=== PATIENT | female | born 1945 | race Caucasian/White ===

== ENCOUNTER 2017-11-28 18:02 | Inpatient (IN) | END 2018-04-09 23:59 | disposition other institution (70) | DRG 130 | DX: J96.21 Acute and chronic respiratory failure with hypoxia (principal); G93.40 Encephalopathy, unspecified; I42.9 Cardiomyopathy, unspecified; I48.2 Chronic atrial fibrillation; R13.10 Dysphagia, unspecified; I13.0 Hypertensive heart and chronic kidney disease with heart failure and stage 1 through stage 4 chronic kidney disease, or unspecified chronic kidney disease; I50.42 Chronic combined systolic (congestive) and diastolic (congestive) heart failure; G40.909 Epilepsy, unspecified, not intractable, without status epilepticus; Z93.1 Gastrostomy status; Z99.11 Dependence on respirator [ventilator] status; Z93.0 Tracheostomy status; D64.9 Anemia, unspecified; J96.22 Acute and chronic respiratory failure with hypercapnia; I25.10 Atherosclerotic heart disease of native coronary artery without angina pectoris; I34.0 Nonrheumatic mitral (valve) insufficiency; N18.9 Chronic kidney disease, unspecified; Z95.0 Presence of cardiac pacemaker; Z95.2 Presence of prosthetic heart valve; B96.20 Unspecified Escherichia coli [E. coli] as the cause of diseases classified elsewhere; N39.0 Urinary tract infection, site not specified; K52.9 Noninfective gastroenteritis and colitis, unspecified; Z79.01 Long term (current) use of anticoagulants; Z79.899 Other long term (current) drug therapy; Z86.73 Personal history of transient ischemic attack (TIA), and cerebral infarction without residual deficits; Z87.440 Personal history of urinary (tract) infections; Z88.5 Allergy status to narcotic agent; Z95.1 Presence of aortocoronary bypass graft; I69.198 Other sequelae of nontraumatic intracerebral hemorrhage ==

== ENCOUNTER 2018-04-10 | Inpatient (IN) | END 2019-04-09 23:59 | disposition still patient (30) | DRG 130 | DX: J96.21 Acute and chronic respiratory failure with hypoxia (principal); G93.40 Encephalopathy, unspecified; J18.9 Pneumonia, unspecified organism; E46 Unspecified protein-calorie malnutrition; D61.818 Other pancytopenia; L89.152 Pressure ulcer of sacral region, stage 2; D69.6 Thrombocytopenia, unspecified; I13.0 Hypertensive heart and chronic kidney disease with heart failure and stage 1 through stage 4 chronic kidney disease, or unspecified chronic kidney disease; E11.22 Type 2 diabetes mellitus with diabetic chronic kidney disease; E87.0 Hyperosmolality and hypernatremia; R13.10 Dysphagia, unspecified; I42.9 Cardiomyopathy, unspecified; I50.42 Chronic combined systolic (congestive) and diastolic (congestive) heart failure; Z99.11 Dependence on respirator [ventilator] status; G40.909 Epilepsy, unspecified, not intractable, without status epilepticus; Z93.1 Gastrostomy status; Z93.0 Tracheostomy status; I25.10 Atherosclerotic heart disease of native coronary artery without angina pectoris; B96.20 Unspecified Escherichia coli [E. coli] as the cause of diseases classified elsewhere; J96.22 Acute and chronic respiratory failure with hypercapnia; I34.0 Nonrheumatic mitral (valve) insufficiency; Z95.0 Presence of cardiac pacemaker; Z95.2 Presence of prosthetic heart valve; N39.0 Urinary tract infection, site not specified; K52.9 Noninfective gastroenteritis and colitis, unspecified; Z79.01 Long term (current) use of anticoagulants; Z79.899 Other long term (current) drug therapy; Z87.440 Personal history of urinary (tract) infections; Z88.5 Allergy status to narcotic agent; Z95.1 Presence of aortocoronary bypass graft; I69.198 Other sequelae of nontraumatic intracerebral hemorrhage; D64.9 Anemia, unspecified; E87.6 Hypokalemia; I25.2 Old myocardial infarction; D72.819 Decreased white blood cell count, unspecified; J98.11 Atelectasis; K75.4 Autoimmune hepatitis; L30.9 Dermatitis, unspecified; N18.3 Chronic kidney disease, stage 3 (moderate); R78.81 Bacteremia; S70.322A Blister (nonthermal), left thigh, initial encounter; R00.1 Bradycardia, unspecified; R19.7 Diarrhea, unspecified; R00.0 Tachycardia, unspecified; I48.20 Chronic atrial fibrillation, unspecified; I48.91 Unspecified atrial fibrillation ==

== ENCOUNTER 2018-04-22 16:02 | Inpatient (IN) | payer MEDICAID, OTHER ==
[2018-04-22] VITALS (21 sets, daily range): BP systolic 83–125; BP diastolic 54–86
[~2018-04-22] VITALS: Ht 157.5 cm; Wt 106.6 kg
[2018-04-22] MEDS ORDERED: PIPERACILLIN SODIUM/TAZOBACTAM 3.375 G in IV DEXTROSE 5% 50 ML IV ONE (16:15)
[2018-04-22] MEDS ORDERED: NOREPINEPHRINE BITARTRATE 8 MG in IV DEXTROSE 5% 500 ML IV PRN ×2 (16:15→19:00)
[2018-04-22] MEDS ORDERED: VANCOMYCIN IV 1,000 MG in IV DEXTROSE 5% 250 ML IV ONE (16:15)
[2018-04-22] MEDS ORDERED: VANCOMYCIN IV 200 ML ONE (16:23)
[2018-04-22] MEDS ORDERED: PIPERACILLIN/TAZOBACTAM/D5W 50 ML IV ONE (16:23)
[2018-04-22 16:27] LABS: BASOPHILS % (AUTO) 0.3 % (0.0-2.0); HEMATOCRIT 35.4 % (31.2-41.9); HEMOGLOBIN 11.8 g/dL (10.9-14.3); LYMPHOCYTES # (AUTO) 0.9 K/uL (20.0-40.0); LYMPHOCYTES % (AUTO) 14.5 % (20.5-51.5); MEAN CORPUSCULAR HEMOGLOBIN 32.2 uug (24.7-32.8); MEAN CORPUSCULAR HGB CONC 33 g/dL (32.3-35.6); MEAN CORPUSCULAR VOLUME 96.3 fL (75.5-95.3); MONOCYTES # (AUTO) 0.6 K/uL (2.0-10.0); MONOCYTES % (AUTO) 10.4 % (0.0-11.0); NEUTROPHILS # (AUTO) 4.5 K/uL (1.8-8.9); NEUTROPHILS % (AUTO) 74.8 % (38.5-71.5); PLATELET COUNT (AUTO) 96 K/uL (179-408); RED BLOOD CELL COUNT(AUTO) 3.67 MIL/uL (3.63-4.92); WHITE BLOOD COUNT (AUTO) 6.1 K/uL (3.8-11.8)
[2018-04-22] MEDS ORDERED: IV NORMAL SALINE 1000 ML BAG IV ONE (16:45)
[2018-04-22] MEDS ORDERED: LACT1CAP61 GT (17:17)
[2018-04-22] MEDS ORDERED: LISI2.5T2 GT (17:17)
[2018-04-22] MEDS ORDERED: PHEN50TA4 GT (17:17)
[2018-04-22] MEDS ORDERED: POTA10TA15 GT (17:17)
[2018-04-22] MEDS ORDERED: MV-M1TAB2 GT (17:17)
[2018-04-22] MEDS ORDERED: IBUP-1953 GT (17:17)
[2018-04-22] MEDS ORDERED: NUT.237L30 GT (17:17)
[2018-04-22] MEDS ORDERED: NEOM1PAC2 TP (17:17)
[2018-04-22] MEDS ORDERED: HEPA500034 SQ (17:17)
[2018-04-22] MEDS ORDERED: ACET-2154 GT (17:17)
[2018-04-22] MEDS ORDERED: BISO5TAB2 GT (17:17)
[2018-04-22] MEDS ORDERED: FAMO20TA8 GT (17:17)
[2018-04-22] MEDS ORDERED: IBUP-1953 PO (17:17)
[2018-04-22] MEDS ORDERED: PHEN100C4 GT (17:17)
[2018-04-22] MEDS ORDERED: LEVE500T20 GT (17:17)
[2018-04-22] MEDS ORDERED: MAGN400O6 GT (17:17)
[2018-04-22] MEDS ORDERED: LACO200T2 GT (17:17)
[2018-04-22] MEDS ORDERED: POLY15DR27 EACHEYE (17:17)
[2018-04-22 17:24] LABS: *BILIRUBIN,URIN 3+ (NEGATIVE); *BLOOD, URINE 2+ (NEGATIVE); *CLARITY,URINE CLOUDY (CLEAR); *COLOR,URINE Brown (YELLOW); *KETONES,URINE TRACE (NEGATIVE); *UROBILINOGEN,URINE >=8.0 E.U./dl (NORMAL); LEUKOCYTE ESTERASE ,URINE 1+ (NEGATIVE); NITRITE, URINE NEGATIVE (NEGATIVE); UGLUCOSE NEGATIVE (NEGATIVE)
[2018-04-22] MEDS ORDERED: PROSTAT GT (17:32)
[2018-04-22 17:39] LABS: SQUAMOUS EPITHELIAL CELL,UR MODERATE /HPF (NONE SEEN); WBC,URINE 50-80 /HPF (0-3)
[2018-04-22 17:43] LABS: BACTERIA,URINE FEW /HPF (NONE SEEN); URINE AMORPHOUS URATE MODERATE /HPF
[2018-04-22] MEDS ORDERED: DEXTROSE 50% 50 ML DISP.SYRIN IV PRN (19:15)
[2018-04-22] MEDS ORDERED: INSULIN REGULAR, HUMAN 300 UNIT/3 ML VIAL SQ PRN (19:15)
[2018-04-22] MEDS ORDERED: PHENYLEPHRINE IV 80 MG in IV DEXTROSE 5% 250 ML IV PRN (20:00)
[2018-04-22] MEDS ORDERED: PHENYLEPHRINE 10 MG/1 ML VIAL ONE (20:13)
[2018-04-22 20:32] LABS: ABG BASE EXCESS -3.6 mmol/L; ABG HCO3 19.7 mmol/L; ABG PH 7.421 (7.350-7.450); ABG PO2 391.4 mmHg (75.0-100.0); ABG SITE RIGHT BRACHIAL; ABG TOTAL HEMOGLOBIN 14.2 G/dL (12.0-16.0); COHb 1.3 % (0.5-1.5); MetHb 0.3 % (0.0-1.5); O2Hb 98.1 % (94.0-97.0); VENT MODE VENT - A/C; VT, ABG 550 mL
[2018-04-22] MEDS ORDERED: DILTIAZEM HCL IV 125 MG in IV DEXTROSE 5% 100 ML IV PRN ×2 (20:45→21:45)
[2018-04-22] MEDS: IV NS 1000 ML 1,000 ML IV PRN (21:44)
[2018-04-22] MEDS ORDERED: DILTIAZEM HCL 25 MG IV ONE ×3 (22:02→22:07)
[2018-04-22] MEDS ORDERED: PIPERACILLIN/TAZOBACTAM/D5W 50 ML ONE (22:04)
[2018-04-22] MEDS: PIPERACILLIN/TAZOBACTAM/D5W 50 ML IV SCH (22:31)
[2018-04-22] MEDS: DILTIAZEM HCL IV 125 MG in IV DEXTROSE 5% 100 ML IV PRN (22:47)
[2018-04-22] MEDS: PHENYLEPHRINE IV 80 MG in IV DEXTROSE 5% 250 ML IV PRN (23:00)
[2018-04-22] MEDS: BLOOD SUGAR DIAGNOSTIC 1 EACH STRIP VI SCH (23:22)
[2018-04-23] VITALS (94 sets, daily range): BP systolic 74–134; BP diastolic 31–105
[2018-04-23] MEDS ORDERED: ACETAMINOPHEN 650 MG SUPP.RECT RC PRN (01:15)
[2018-04-23] MEDS ORDERED: PIPERACILLIN/TAZOBACTAM/D5W 50 ML ONE (02:24)
[2018-04-23] MEDS: PIPERACILLIN/TAZOBACTAM/D5W 50 ML IV SCH (04:00)
[2018-04-23 05:16] LABS: BASOPHILS % (AUTO) 0.3 % (0.0-2.0); HEMATOCRIT 35.1 % (31.2-41.9); HEMOGLOBIN 12.5 g/dL (10.9-14.3); LYMPHOCYTES # (AUTO) 0.8 K/uL (20.0-40.0); LYMPHOCYTES % (AUTO) 9.2 % (20.5-51.5); MEAN CORPUSCULAR HEMOGLOBIN 32.9 uug (24.7-32.8); MEAN CORPUSCULAR HGB CONC 36 g/dL (32.3-35.6); MEAN CORPUSCULAR VOLUME 92.9 fL (75.5-95.3); MONOCYTES # (AUTO) 0.6 K/uL (2.0-10.0); MONOCYTES % (AUTO) 6.3 % (0.0-11.0); NEUTROPHILS # (AUTO) 7.5 K/uL (1.8-8.9); NEUTROPHILS % (AUTO) 84.2 % (38.5-71.5); PLATELET COUNT (AUTO) 90 K/uL (179-408); RED BLOOD CELL COUNT(AUTO) 3.78 MIL/uL (3.63-4.92); WHITE BLOOD COUNT (AUTO) 8.9 K/uL (3.8-11.8)
[2018-04-23 05:19] LABS: CARBON DIOXIDE 28 mmol/L (21-32); CHLORIDE 104 mmol/L (98-107); CREATININE 1.1 mg/dL (0.6-1.3); GLUCOSE 127 mg/dL (74-106); UREA NITROGEN, BLOOD 36 mg/dL (7-18)
[2018-04-23 05:20] LABS: POTASSIUM 2.8 mmol/L (3.5-5.1)
[2018-04-23] MEDS: BLOOD SUGAR DIAGNOSTIC 1 EACH STRIP VI SCH ×4 (06:17→23:45)
[2018-04-23] MEDS ORDERED: POTASSIUM CHLORIDE 20 MEQ POWDER PACKET GT ONE (06:30)
[2018-04-23] MEDS: POTASSIUM CHLORIDE 50 ML IV SCH ×4 (06:32→10:48)
[2018-04-23] MEDS ORDERED: PIPERACILLIN/TAZOBACTAM/D5W 50 ML IV SCH (08:15)
[2018-04-23] MEDS: VANCOMYCIN IV 1,500 MG in IV DEXTROSE 5% 500 ML IV SCH (09:00)
[2018-04-23] MEDS: PHENYLEPHRINE IV 80 MG in IV DEXTROSE 5% 250 ML IV PRN (10:45)
[2018-04-23] MEDS: ACETAMINOPHEN 650 MG/20.3 ML LIQUID UDC GT PRN ×2 (13:14→21:00)
[2018-04-23] MEDS: DILTIAZEM HCL IV 125 MG in IV DEXTROSE 5% 100 ML IV PRN (13:15)
[2018-04-23] MEDS ORDERED: PIPERACILLIN/TAZOBACTAM/D5W 3.375 G in PREMIXED 1 EACH IV SCH (14:00)
[2018-04-23] MEDS ORDERED: ACID1TAB12 GT (14:38)
[2018-04-23] MEDS ORDERED: LEVE100S GT (14:39)
[2018-04-23] MEDS ORDERED: PHEN125O GT ×2 (14:45)
[2018-04-23] MEDS ORDERED: HEPA500034 SQ (14:48)
[2018-04-23] MEDS ORDERED: DIGOXIN 500 MCG/2 ML AMP IV ONE (16:15)
[2018-04-23] MEDS ORDERED: IMIPENEM/CILASTATIN SODIUM 1,000 MG in IV NORMAL SALINE 250 ML IV SCH (18:30)
[2018-04-23] MEDS: IV NS 1000 ML 1,000 ML IV PRN (18:39)
[2018-04-23] MEDS ORDERED: MEROPENEM 1 G in IV NORMAL SALINE 100 ML IV SCH ×2 (19:00→22:00)
[2018-04-23] MEDS: MEROPENEM 1 G in IV NORMAL SALINE 100 ML IV SCH (20:17)
[2018-04-23] MEDS ORDERED: ACETAMINOPHEN 325 MG TABLET GT SCH (20:45)
[2018-04-23] MEDS ORDERED: MAGNESIUM HYDROXIDE 30 ML LIQUID UDC GT SCH (20:45)
[2018-04-23] MEDS ORDERED: Medication Not On Formulary EA (Acidophilus/Bulgaricus (Floranex Tablet) 1 EACH) GT SCH (21:00)
[2018-04-23] MEDS: LEVETIRACETAM 500 MG/5 ML LIQUID UDC GT SCH (21:42)
[2018-04-23] MEDS: ACIDOPHILUS/BULGARICUS CHEW TAB GT SCH (21:42)
[2018-04-23] MEDS: NEOMY/BACITRAC/POLYMI OINT 28.35 GM TUBE TOP SCH (21:43)
[2018-04-23] MEDS: FAMOTIDINE 20 MG TABLET GT SCH (21:43)
[2018-04-23] MEDS: POLYVINYL ALCOHOL OPHT DROPS 15 ML BOTTLE EACHEYE SCH (21:44)
[2018-04-23] MEDS: LACOSAMIDE GT SCH (22:54)
[2018-04-23] MEDS ORDERED: LACOSAMIDE 100 MG/10 ML UDC ONE (22:54)
[2018-04-24] VITALS (91 sets, daily range): BP systolic 73–133; BP diastolic 5–93
[2018-04-24] MEDS: POLYVINYL ALCOHOL OPHT DROPS 15 ML BOTTLE EACHEYE SCH ×3 (05:07→21:55)
[2018-04-24] MEDS: PHENYTOIN 100 MG/4 ML UDC GT SCH ×2 (05:08→17:45)
[2018-04-24] MEDS: BLOOD SUGAR DIAGNOSTIC 1 EACH STRIP VI SCH ×3 (05:08→18:15)
[2018-04-24] MEDS ORDERED: PHENYTOIN 100 MG GT SCH (06:00)
[2018-04-24 06:18] LABS: ABG HCO3 25.4 mmol/L; ABG PCO2 28.3 mmHg (35.0-45.0); ABG PH 7.571 (7.350-7.450); ABG SITE LEFT BRACHIAL; ABG TOTAL HEMOGLOBIN 11.8 G/dL (12.0-16.0); COHb 1.4 % (0.5-1.5); MetHb 0.4 % (0.0-1.5); O2Hb 97.1 % (94.0-97.0); VENT MODE VENT - A/C; VT, ABG 550 mL
[2018-04-24 06:21] LABS: CARBON DIOXIDE 27 mmol/L (21-32); CHLORIDE 107 mmol/L (98-107); CREATININE 0.7 mg/dL (0.6-1.3); GLUCOSE 102 mg/dL (74-106); MAGNESIUM 1.8 mg/dL (1.8-2.4); UREA NITROGEN, BLOOD 21 mg/dL (7-18)
[2018-04-24 06:28] LABS: POTASSIUM 2.8 mmol/L (3.5-5.1)
[2018-04-24] MEDS: ACETAMINOPHEN 650 MG/20.3 ML LIQUID UDC GT PRN (06:54)
[2018-04-24] MEDS: MEROPENEM 1 G in IV NORMAL SALINE 100 ML IV SCH ×2 (07:23→18:55)
[2018-04-24] MEDS: FAMOTIDINE 20 MG TABLET GT SCH ×2 (08:16→20:32)
[2018-04-24] MEDS: POTASSIUM CHLORIDE 50 ML IV SCH ×4 (08:16→10:27)
[2018-04-24] MEDS: POTASSIUM CHLORIDE 10 MEQ TAB.PRT.SR XX SCH (08:17)
[2018-04-24] MEDS: LEVETIRACETAM 500 MG/5 ML LIQUID UDC GT SCH ×2 (08:19→20:33)
[2018-04-24] MEDS: PROTEIN SUPPLEMENT (PROSTAT) 30 ML LIQUID PO SCH ×3 (08:32→17:40)
[2018-04-24] MEDS: PHENYLEPHRINE IV 80 MG in IV DEXTROSE 5% 250 ML IV PRN ×2 (08:51→19:15)
[2018-04-24] MEDS: NEOMY/BACITRAC/POLYMI OINT 28.35 GM TUBE TOP SCH ×2 (09:25→20:34)
[2018-04-24] MEDS: LACOSAMIDE GT SCH ×2 (10:44→20:34)
[2018-04-24] MEDS: POTASSIUM PHOSPHATE MM 5 MMOL in IV DEXTROSE 5% 100 ML IV SCH ×2 (12:09→13:38)
[2018-04-24] MEDS: VANCOMYCIN IV 1,500 MG in IV DEXTROSE 5% 500 ML IV SCH (12:09)
[2018-04-24] MEDS ORDERED: Z GUARD REMEDY PASTE 57 GM TUBE TOP PRN (13:45)
[2018-04-24] MEDS ORDERED: DIGOXIN 500 MCG/2 ML AMP IV ONE (16:45)
[2018-04-24] MEDS: CLOTRIMAZOLE 1% CREAM 30 GM TUBE TOP SCH (17:42)
[2018-04-24] MEDS ORDERED: PHENYTOIN 150 MG GT SCH (18:00)
[2018-04-24] MEDS: ACIDOPHILUS/BULGARICUS CHEW TAB GT SCH (20:32)
[2018-04-24] MEDS: IV NS 1000 ML 1,000 ML IV PRN (22:10)
[2018-04-25] VITALS (89 sets, daily range): BP systolic 86–142; BP diastolic 46–92
[2018-04-25] MEDS: BLOOD SUGAR DIAGNOSTIC 1 EACH STRIP VI SCH ×4 (00:35→18:42)
[2018-04-25 05:06] LABS: BASOPHILS % (AUTO) 0.8 % (0.0-2.0); EOSINOPHILS # (AUTO) 0.1 K/uL (0.0-0.7); EOSINOPHILS % (AUTO) 1.8 % (0.0-7.0); HEMATOCRIT 35.6 % (31.2-41.9); LYMPHOCYTES # (AUTO) 1.1 K/uL (20.0-40.0); LYMPHOCYTES % (AUTO) 22.5 % (20.5-51.5); MEAN CORPUSCULAR HEMOGLOBIN 31.7 uug (24.7-32.8); MEAN CORPUSCULAR HGB CONC 34 g/dL (32.3-35.6); MONOCYTES # (AUTO) 0.6 K/uL (2.0-10.0); MONOCYTES % (AUTO) 11.5 % (0.0-11.0); NEUTROPHILS % (AUTO) 63.4 % (38.5-71.5); PLATELET COUNT (AUTO) 82 K/uL (179-408); RED BLOOD CELL COUNT(AUTO) 3.79 MIL/uL (3.63-4.92); WHITE BLOOD COUNT (AUTO) 4.8 K/uL (3.8-11.8)
[2018-04-25] MEDS: POLYVINYL ALCOHOL OPHT DROPS 15 ML BOTTLE EACHEYE SCH ×3 (05:10→22:27)
[2018-04-25] MEDS: PHENYTOIN 100 MG/4 ML UDC GT SCH ×2 (05:10→18:20)
[2018-04-25 05:22] LABS: ALANINE AMINOTRANSFERASE 37 U/L (14-59); ALKALINE PHOSPHATASE 320 U/L (50-136); ASPARTATE AMINOTRANSFERASE 45 U/L (15-37); BILIRUBIN,TOTAL 1.3 mg/dL (0.2-1.0); CARBON DIOXIDE 28 mmol/L (21-32); CHLORIDE 107 mmol/L (98-107); CREATININE 0.7 mg/dL (0.6-1.3); GLUCOSE 98 mg/dL (74-106); PHOSPHOROUS 2.9 mg/dL (2.5-4.9); POTASSIUM 3.7 mmol/L (3.5-5.1); TOTAL PROTEIN, SERUM 7.2 g/dL (6.4-8.2); UREA NITROGEN, BLOOD 16 mg/dL (7-18)
[2018-04-25 05:57] LABS: BAND % (MANUAL) 17 % (0-10); EOSINOPHILS % (MANUAL) 2 % (0-8); LYMPHOCYTES % (MANUAL) 14 % (20-40); METAMYELOCYTES % 1 % (0-1); MONOCYTES % (MANUAL) 4 % (2-10); MYELOCYTES % 2 % (0-0); NEUTROPHILS % (MANUAL) 53 % (42-75); PROMYELOCYTES % 4 %
[2018-04-25] MEDS: MEROPENEM 1 G in IV NORMAL SALINE 100 ML IV SCH (08:04)
[2018-04-25] MEDS: FAMOTIDINE 20 MG TABLET GT SCH ×2 (08:56→20:21)
[2018-04-25] MEDS: LACOSAMIDE GT SCH ×2 (08:56→20:22)
[2018-04-25] MEDS: LEVETIRACETAM 500 MG/5 ML LIQUID UDC GT SCH ×2 (08:56→20:22)
[2018-04-25] MEDS: POTASSIUM CHLORIDE 10 MEQ TAB.PRT.SR XX SCH (08:57)
[2018-04-25] MEDS: ACETAMINOPHEN 650 MG/20.3 ML LIQUID UDC GT PRN (08:57)
[2018-04-25] MEDS: PROTEIN SUPPLEMENT (PROSTAT) 30 ML LIQUID PO SCH ×3 (08:58→17:00)
[2018-04-25] MEDS: NEOMY/BACITRAC/POLYMI OINT 28.35 GM TUBE TOP SCH ×2 (08:59→20:24)
[2018-04-25] MEDS: CLOTRIMAZOLE 1% CREAM 30 GM TUBE TOP SCH ×2 (09:03→18:22)
[2018-04-25 09:55] LABS: ABG BASE EXCESS -1.7 mmol/L; ABG HCO3 22.6 mmol/L; ABG PCO2 36.8 mmHg (35.0-45.0); ABG PH 7.406 (7.350-7.450); ABG PO2 101.9 mmHg (75.0-100.0); ABG SITE LEFT RADIAL; COHb 1.7 % (0.5-1.5); MetHb 0.4 % (0.0-1.5); O2Hb 96.5 % (94.0-97.0); VENT MODE VENT - A/C; VT, ABG 550 mL
[2018-04-25] MEDS ORDERED: VANCOMYCIN IV 1,500 MG in IV DEXTROSE 5% 500 ML IV SCH (12:00)
[2018-04-25] MEDS: NYSTATIN POWDER 15 GM BOTTLE TOP SCH ×2 (18:22→20:23)
[2018-04-25] MEDS: ACIDOPHILUS/BULGARICUS CHEW TAB GT SCH (20:21)
[2018-04-25] MEDS: CEFEPIME HCL 1 G in IV DEXTROSE 5% 50 ML IV SCH (20:22)
[2018-04-25] MEDS: PHENYLEPHRINE IV 80 MG in IV DEXTROSE 5% 250 ML IV PRN (20:50)
[2018-04-25] MEDS ORDERED: CEFEPIME HCL 2 G in IV DEXTROSE 5% 100 ML IV SCH (22:00)
[2018-04-26] VITALS (43 sets, daily range): BP systolic 98–144; BP diastolic 58–107
[2018-04-26] MEDS: BLOOD SUGAR DIAGNOSTIC 1 EACH STRIP VI SCH ×4 (00:26→18:09)
[2018-04-26] MEDS: IV NS 1000 ML 1,000 ML IV PRN ×2 (02:38→21:51)
[2018-04-26 05:15] LABS: CARBON DIOXIDE 27 mmol/L (21-32); CHLORIDE 108 mmol/L (98-107); CREATININE 0.6 mg/dL (0.6-1.3); GLUCOSE 95 mg/dL (74-106); MAGNESIUM 1.7 mg/dL (1.8-2.4); POTASSIUM 3.5 mmol/L (3.5-5.1); UREA NITROGEN, BLOOD 14 mg/dL (7-18)
[2018-04-26 05:16] LABS: BASOPHILS % (AUTO) 0.7 % (0.0-2.0); EOSINOPHILS # (AUTO) 0.1 K/uL (0.0-0.7); EOSINOPHILS % (AUTO) 1.8 % (0.0-7.0); HEMATOCRIT 33.4 % (31.2-41.9); HEMOGLOBIN 11.4 g/dL (10.9-14.3); LYMPHOCYTES # (AUTO) 1.4 K/uL (20.0-40.0); LYMPHOCYTES % (AUTO) 26.5 % (20.5-51.5); MEAN CORPUSCULAR HEMOGLOBIN 32.2 uug (24.7-32.8); MEAN CORPUSCULAR HGB CONC 34 g/dL (32.3-35.6); MEAN CORPUSCULAR VOLUME 94.4 fL (75.5-95.3); MONOCYTES # (AUTO) 0.9 K/uL (2.0-10.0); MONOCYTES % (AUTO) 17.5 % (0.0-11.0); NEUTROPHILS # (AUTO) 2.8 K/uL (1.8-8.9); NEUTROPHILS % (AUTO) 53.5 % (38.5-71.5); PLATELET COUNT (AUTO) 80 K/uL (179-408); RED BLOOD CELL COUNT(AUTO) 3.54 MIL/uL (3.63-4.92); WHITE BLOOD COUNT (AUTO) 5.2 K/uL (3.8-11.8)
[2018-04-26 05:59] LABS: EOSINOPHILS % (MANUAL) 2 % (0-8); LYMPHOCYTES % (MANUAL) 19 % (20-40); METAMYELOCYTES % 3 % (0-1); MONOCYTES % (MANUAL) 17 % (2-10); MYELOCYTES % 1 % (0-0); NEUTROPHILS % (MANUAL) 54 % (42-75); PROMYELOCYTES % 1 %
[2018-04-26] MEDS: POLYVINYL ALCOHOL OPHT DROPS 15 ML BOTTLE EACHEYE SCH ×3 (06:14→21:03)
[2018-04-26] MEDS: PHENYTOIN 100 MG/4 ML UDC GT SCH ×2 (06:14→18:11)
[2018-04-26] MEDS: CEFEPIME HCL 1 G in IV DEXTROSE 5% 50 ML IV SCH ×2 (08:27→20:37)
[2018-04-26] MEDS: PROTEIN SUPPLEMENT (PROSTAT) 30 ML LIQUID PO SCH ×3 (08:27→18:10)
[2018-04-26] MEDS: LEVETIRACETAM 500 MG/5 ML LIQUID UDC GT SCH ×2 (08:28→20:34)
[2018-04-26] MEDS: POTASSIUM CHLORIDE 10 MEQ TAB.PRT.SR XX SCH (08:28)
[2018-04-26] MEDS: LACOSAMIDE GT SCH ×2 (08:28→20:47)
[2018-04-26] MEDS: FAMOTIDINE 20 MG TABLET GT SCH ×2 (08:28→20:34)
[2018-04-26] MEDS: NEOMY/BACITRAC/POLYMI OINT 28.35 GM TUBE TOP SCH ×2 (08:30→20:38)
[2018-04-26] MEDS: CLOTRIMAZOLE 1% CREAM 30 GM TUBE TOP SCH ×2 (08:30→18:09)
[2018-04-26] MEDS: NYSTATIN POWDER 15 GM BOTTLE TOP SCH ×2 (08:31→20:37)
[2018-04-26] MEDS ORDERED: DIGOXIN 500 MCG/2 ML AMP IV ONE (12:15)
[2018-04-26] MEDS: MAGNESIUM SULFATE/D5W 100 ML IV SCH ×2 (12:15→13:06)
[2018-04-26] MEDS: ACIDOPHILUS/BULGARICUS CHEW TAB GT SCH (20:34)
[2018-04-26] MEDS: LACOSAMIDE 100 MG/10 ML UDC GT SCH (20:44)
[2018-04-27] VITALS (16 sets, daily range): BP systolic 106–137; BP diastolic 56–81
[2018-04-27] MEDS: BLOOD SUGAR DIAGNOSTIC 1 EACH STRIP VI SCH ×4 (00:07→17:19)
[2018-04-27] MEDS: POLYVINYL ALCOHOL OPHT DROPS 15 ML BOTTLE EACHEYE SCH ×2 (05:21→22:44)
[2018-04-27] MEDS: PHENYTOIN 100 MG/4 ML UDC GT SCH ×2 (05:21→17:01)
[2018-04-27 06:05] LABS: EOSINOPHILS # (AUTO) 0.2 K/uL (0.0-0.7); EOSINOPHILS % (AUTO) 3.7 % (0.0-7.0); HEMATOCRIT 36.6 % (31.2-41.9); HEMOGLOBIN 12.4 g/dL (10.9-14.3); LYMPHOCYTES # (AUTO) 1.2 K/uL (20.0-40.0); LYMPHOCYTES % (AUTO) 25.7 % (20.5-51.5); MEAN CORPUSCULAR HEMOGLOBIN 32.2 uug (24.7-32.8); MEAN CORPUSCULAR HGB CONC 34 g/dL (32.3-35.6); MEAN CORPUSCULAR VOLUME 95.7 fL (75.5-95.3); MONOCYTES # (AUTO) 0.6 K/uL (2.0-10.0); MONOCYTES % (AUTO) 13.1 % (0.0-11.0); NEUTROPHILS # (AUTO) 2.6 K/uL (1.8-8.9); NEUTROPHILS % (AUTO) 56.5 % (38.5-71.5); PLATELET COUNT (AUTO) 98 K/uL (179-408); RED BLOOD CELL COUNT(AUTO) 3.83 MIL/uL (3.63-4.92); WHITE BLOOD COUNT (AUTO) 4.6 K/uL (3.8-11.8)
[2018-04-27 06:11] LABS: CARBON DIOXIDE 28 mmol/L (21-32); CHLORIDE 109 mmol/L (98-107); CREATININE 0.6 mg/dL (0.6-1.3); GLUCOSE 96 mg/dL (74-106); MAGNESIUM 2.1 mg/dL (1.8-2.4); PHOSPHOROUS 3.1 mg/dL (2.5-4.9); POTASSIUM 3.2 mmol/L (3.5-5.1); UREA NITROGEN, BLOOD 13 mg/dL (7-18)
[2018-04-27 06:17] LABS: LYMPHOCYTES % (MANUAL) 26 % (20-40); METAMYELOCYTES % 2 % (0-1); MONOCYTES % (MANUAL) 13 % (2-10); MYELOCYTES % 2 % (0-0); NEUTROPHILS % (MANUAL) 53 % (42-75); PROMYELOCYTES % 2 %
[2018-04-27] MEDS: POTASSIUM CHLORIDE 10 MEQ TAB.PRT.SR XX SCH (08:48)
[2018-04-27] MEDS: FAMOTIDINE 20 MG TABLET GT SCH ×2 (08:48→20:10)
[2018-04-27] MEDS: CEFEPIME HCL 1 G in IV DEXTROSE 5% 50 ML IV SCH ×2 (08:51→20:10)
[2018-04-27] MEDS: PROTEIN SUPPLEMENT (PROSTAT) 30 ML LIQUID PO SCH ×3 (08:51→16:52)
[2018-04-27] MEDS: CLOTRIMAZOLE 1% CREAM 30 GM TUBE TOP SCH ×2 (08:52→16:54)
[2018-04-27] MEDS: NYSTATIN POWDER 15 GM BOTTLE TOP SCH ×2 (08:53→20:33)
[2018-04-27] MEDS: NEOMY/BACITRAC/POLYMI OINT 28.35 GM TUBE TOP SCH ×2 (08:53→20:33)
[2018-04-27] MEDS: LEVETIRACETAM 500 MG/5 ML LIQUID UDC GT SCH ×2 (09:00→20:11)
[2018-04-27] MEDS ORDERED: DIGOXIN 500 MCG/2 ML AMP IV SCH (09:00)
[2018-04-27] MEDS: LACOSAMIDE 100 MG/10 ML UDC GT SCH ×2 (11:06→20:11)
[2018-04-27] MEDS ORDERED: POTASSIUM CHLORIDE 20 MEQ POWDER PACKET GT ONE (12:15)
[2018-04-27] MEDS ORDERED: GLUCERNA 1.2 1000ML LIQUID GT PRN (13:45)
[2018-04-27] MEDS: IV NS 1000 ML 1,000 ML IV PRN (18:22)
[2018-04-27] MEDS: ACIDOPHILUS/BULGARICUS CHEW TAB GT SCH (20:10)
[2018-04-27] MEDS: ACETAMINOPHEN 650 MG/20.3 ML LIQUID UDC GT PRN (23:21)
[2018-04-28] MEDS: BLOOD SUGAR DIAGNOSTIC 1 EACH STRIP VI SCH ×3 (00:02→11:29)
[2018-04-28 00:30] VITALS: BP 105/63
[2018-04-28 04:16] VITALS: BP 117/65
[2018-04-28 06:28] LABS: BASOPHILS % (AUTO) 0.5 % (0.0-2.0); EOSINOPHILS # (AUTO) 0.2 K/uL (0.0-0.7); EOSINOPHILS % (AUTO) 4.1 % (0.0-7.0); HEMATOCRIT 32.6 % (31.2-41.9); HEMOGLOBIN 11.2 g/dL (10.9-14.3); LYMPHOCYTES # (AUTO) 1.2 K/uL (20.0-40.0); LYMPHOCYTES % (AUTO) 26.2 % (20.5-51.5); MEAN CORPUSCULAR HGB CONC 34 g/dL (32.3-35.6); MEAN CORPUSCULAR VOLUME 93.1 fL (75.5-95.3); MONOCYTES # (AUTO) 0.8 K/uL (2.0-10.0); MONOCYTES % (AUTO) 16.7 % (0.0-11.0); NEUTROPHILS # (AUTO) 2.5 K/uL (1.8-8.9); NEUTROPHILS % (AUTO) 52.5 % (38.5-71.5); PLATELET COUNT (AUTO) 129 K/uL (179-408); WHITE BLOOD COUNT (AUTO) 4.7 K/uL (3.8-11.8)
[2018-04-28] MEDS: POLYVINYL ALCOHOL OPHT DROPS 15 ML BOTTLE EACHEYE SCH ×2 (06:28→13:03)
[2018-04-28] MEDS: PHENYTOIN 100 MG/4 ML UDC GT SCH (06:28)
[2018-04-28 06:34] LABS: ALANINE AMINOTRANSFERASE 22 U/L (14-59); ALKALINE PHOSPHATASE 360 U/L (50-136); ASPARTATE AMINOTRANSFERASE 41 U/L (15-37); BILIRUBIN,TOTAL 0.7 mg/dL (0.2-1.0); CARBON DIOXIDE 27 mmol/L (21-32); CHLORIDE 112 mmol/L (98-107); CREATININE 0.4 mg/dL (0.6-1.3); GLUCOSE 96 mg/dL (74-106); PHOSPHOROUS 2.9 mg/dL (2.5-4.9); POTASSIUM 3.6 mmol/L (3.5-5.1); TOTAL PROTEIN, SERUM 6.4 g/dL (6.4-8.2); UREA NITROGEN, BLOOD 13 mg/dL (7-18)
[2018-04-28 08:00] VITALS: BP 134/90
[2018-04-28 08:18] LABS: EOSINOPHILS % (MANUAL) 2 % (0-8); LYMPHOCYTES % (MANUAL) 29 % (20-40); MONOCYTES % (MANUAL) 14 % (2-10); NEUTROPHILS % (MANUAL) 55 % (42-75)
[2018-04-28] MEDS: CEFEPIME HCL 1 G in IV DEXTROSE 5% 50 ML IV SCH (08:52)
[2018-04-28] MEDS: LACOSAMIDE 100 MG/10 ML UDC GT SCH (08:52)
[2018-04-28] MEDS: LEVETIRACETAM 500 MG/5 ML LIQUID UDC GT SCH (08:53)
[2018-04-28] MEDS: POTASSIUM CHLORIDE 10 MEQ TAB.PRT.SR XX SCH (08:54)
[2018-04-28] MEDS: FAMOTIDINE 20 MG TABLET GT SCH (08:54)
[2018-04-28] MEDS: PROTEIN SUPPLEMENT (PROSTAT) 30 ML LIQUID PO SCH ×2 (08:55→13:02)
[2018-04-28] MEDS: CLOTRIMAZOLE 1% CREAM 30 GM TUBE TOP SCH (08:55)
[2018-04-28] MEDS: NYSTATIN POWDER 15 GM BOTTLE TOP SCH (08:56)
[2018-04-28] MEDS: NEOMY/BACITRAC/POLYMI OINT 28.35 GM TUBE TOP SCH (08:56)
[2018-04-28] MEDS ORDERED: DIGOXIN 125 MCG TABLET GT SCH (09:00)
[2018-04-28] MEDS ORDERED: DIGO125T5 GT (09:11)
[2018-04-28] MEDS ORDERED: CEFE1FRO IV (09:14)
[2018-04-28 12:08] VITALS: BP 132/60
== END 2018-04-28 13:45 | DRG 720 ==
LOC: ER 16:04 → CCU 18:14 → TELE-TD 04-27 14:15
PROVIDERS: ADMIT Internal Medicine Nephrology; ATTEND Internal Medicine
PROC: 5A1955Z Respiratory Ventilation, Greater than 96 Consecutive Hours (ICD-10-PCS; principal; 2018-04-22)
PROC: 05HY33Z Insertion of Infusion Device into Upper Vein, Percutaneous Approach (ICD-10-PCS; principal; 2018-04-22)
DX: A41.59 Other Gram-negative sepsis (principal); J96.21 Acute and chronic respiratory failure with hypoxia; I21.A1 Myocardial infarction type 2; R65.21 Severe sepsis with septic shock; G93.49 Other encephalopathy; L89.159 Pressure ulcer of sacral region, unspecified stage; I13.0 Hypertensive heart and chronic kidney disease with heart failure and stage 1 through stage 4 chronic kidney disease, or unspecified chronic kidney disease; Z93.0 Tracheostomy status; E11.22 Type 2 diabetes mellitus with diabetic chronic kidney disease; I50.42 Chronic combined systolic (congestive) and diastolic (congestive) heart failure; N18.3 Chronic kidney disease, stage 3 (moderate); K75.4 Autoimmune hepatitis; N39.0 Urinary tract infection, site not specified; J96.22 Acute and chronic respiratory failure with hypercapnia; I48.91 Unspecified atrial fibrillation; I69.298 Other sequelae of other nontraumatic intracranial hemorrhage; I25.10 Atherosclerotic heart disease of native coronary artery without angina pectoris; Z95.1 Presence of aortocoronary bypass graft; R13.10 Dysphagia, unspecified; Z93.1 Gastrostomy status; Z79.899 Other long term (current) drug therapy; M21.372 Foot drop, left foot; M21.371 Foot drop, right foot; Z88.6 Allergy status to analgesic agent; Z95.0 Presence of cardiac pacemaker; R19.7 Diarrhea, unspecified
CPT/HCPCS: 36415; 36569; 36600; 70030-TC; 71045; 83605; 83735; 84100; 85025; 85730; 87040; 87070; 87086; 87400; 93005; 94002; 94003; A4663; G0378; J0692; J1160; J1815; J2185; J2370; J2543; J3370; J3475; J3480; J3490; J7030; J7040; J7060

== ENCOUNTER 2018-04-23 07:00 | Day surgery (SDC) | payer MEDICAID, OTHER ==
[~2018-04-23 07:00] MED LIST: ACET-2154 GT; BISO5TAB2 GT; FAMO20TA8 GT; HEPA500034 SQ; IBUP-1953 GT; IBUP-1953 PO; LACO200T2 GT; LACT1CAP61 GT; LEVE500T20 GT; LISI2.5T2 GT; MAGN400O6 GT; MV-M1TAB2 GT; NEOM1PAC2 TP; NUT.237L30 GT; PHEN100C4 GT; PHEN50TA4 GT; POLY15DR27 EACHEYE; POTA10TA15 GT; PROSTAT GT
[2018-04-23] MEDS ORDERED: ACID1TAB12 GT (14:38)
[2018-04-23] MEDS ORDERED: LEVE100S GT (14:39)
[2018-04-23] MEDS ORDERED: PHEN125O GT ×2 (14:45)
[2018-04-23] MEDS ORDERED: HEPA500034 SQ (14:48)
[2018-04-28] MEDS ORDERED: DIGO125T5 GT (09:11)
[2018-04-28] MEDS ORDERED: CEFE1FRO IV (09:14)
== END 2018-04-23 23:59 | disposition home or self-care (01) ==
LOC: DS 07:00
PROVIDERS: ATTEND Nurse Practitioner Acute Care
DX: Z75.3 Unavailability and inaccessibility of health-care facilities (principal)
CPT/HCPCS: J7050

== ENCOUNTER 2018-05-16 08:48 | Outpatient (CLI) | payer OTHER ==
[~2018-05-16 08:48] MED LIST changes: +ACID1TAB12 GT; -BISO5TAB2 GT; +CEFE1FRO IV; +DIGO125T5 GT; -HEPA500034 SQ; -IBUP-1953 GT; -IBUP-1953 PO; +LEVE100S GT; -LEVE500T20 GT; -LISI2.5T2 GT; -MV-M1TAB2 GT; -NUT.237L30 GT; -PHEN100C4 GT; +PHEN125O GT; -PHEN50TA4 GT
[2018-05-16] MEDS ORDERED: LIDOCAINE HCL 1% 20 ML VIAL ONE (08:59)
== END 2018-05-16 23:59 ==
LOC: RAD 08:48 → EDSTATUS 10:32 → RAD 23:59
PROVIDERS: ATTEND Internal Medicine
DX: K76.1 Chronic passive congestion of liver (principal)
CPT/HCPCS: 47000; 74150; 76942; 88307; 88312; J3490

== ENCOUNTER 2019-01-31 08:10 | Outpatient (CLI) | payer MEDICAID | END 2019-01-31 23:59 | disposition home or self-care (01) | LOC: CT 08:10 | PROVIDERS: ATTEND Internal Medicine Pulmonary Disease | DX: J90 Pleural effusion, not elsewhere classified (principal); J98.11 Atelectasis; R91.8 Other nonspecific abnormal finding of lung field; I51.7 Cardiomegaly; M47.814 Spondylosis without myelopathy or radiculopathy, thoracic region; M19.011 Primary osteoarthritis, right shoulder; M19.012 Primary osteoarthritis, left shoulder; Z95.1 Presence of aortocoronary bypass graft; Z95.2 Presence of prosthetic heart valve; Z93.1 Gastrostomy status; Z93.0 Tracheostomy status | CPT/HCPCS: 71250 ==

== ENCOUNTER → 2020-04-09 23:59 | Inpatient (IN) | payer MEDICAID ==
[2019-04-11 08:00] VITALS: BP 130/66
[2019-04-11] MEDS: ARGININE/GLUTAMINE/CALCIUM BMB 1 EACH POWD.PACK GT SCH (17:26)
--- NOTE | 2019-04-11 20:09 | NUR ---
Received pt on HT-50 ventilator with the following settings of AC-12, Vt-550, PEEP+5, FIO2-30%, trached with Shiley#6 DCT trach, which is in the place and secure. No s/s of respiratory distress noted. Airway care done, pt responded to physical stimuli. HME changed. Resus. bag and back up trach at bedside. Vent and alarms checked and reset.
[2019-04-11 20:39] VITALS: BP 101/71
[2019-04-11] MEDS: HYDROGEN PEROXIDE 3% 118 ML BOTTLE TP SCH (21:07)
[2019-04-11] MEDS: ASCORBIC ACID 500 MG TABLET PO SCH (21:14)
[2019-04-11] MEDS: Z GUARD REMEDY PASTE 57 GM TUBE TOP SCH ×2 (21:14)
[2019-04-11] MEDS: CLOTRIMAZOLE 1% CREAM 30 GM TUBE TOP SCH (21:14)
[2019-04-11] MEDS: POLYVINYL ALCOHOL OPHT DROPS 15 ML BOTTLE EACHEYE SCH (21:14)
[2019-04-11] MEDS: ACIDOPHILUS/BULGARICUS CHEW TAB GT SCH (21:14)
[2019-04-11] MEDS: ZINC SULFATE 220 MG CAPSULE GT SCH (21:14)
[2019-04-11] MEDS: FAMOTIDINE 20 MG TABLET GT SCH (21:14)
[2019-04-11] MEDS: PROTEIN SUPPLEMENT (PROSTAT) 30 ML LIQUID GT SCH (21:14)
[2019-04-11] MEDS: levETIRAcetam 500 MG/5 ML LIQUID UDC GT SCH (21:14)
[2019-04-12] MEDS: POLYVINYL ALCOHOL OPHT DROPS 15 ML BOTTLE EACHEYE SCH ×3 (06:11→21:04)
[2019-04-12] MEDS: PROTEIN SUPPLEMENT (PROSTAT) 30 ML LIQUID GT SCH ×3 (06:11→21:04)
[2019-04-12] MEDS: ARGININE/GLUTAMINE/CALCIUM BMB 1 EACH POWD.PACK GT SCH ×2 (06:11→17:51)
[2019-04-12 08:01] VITALS: BP 136/69
[2019-04-12] MEDS: levETIRAcetam 500 MG/5 ML LIQUID UDC GT SCH ×2 (08:56→20:24)
[2019-04-12] MEDS: FAMOTIDINE 20 MG TABLET GT SCH ×2 (08:57→20:24)
[2019-04-12] MEDS: DIGOXIN 125 MCG TABLET GT SCH (08:57)
[2019-04-12] MEDS: POTASSIUM CHLORIDE 40 MEQ/30 ML LIQUID UDC GT SCH (08:57)
[2019-04-12] MEDS: CLOTRIMAZOLE 1% CREAM 30 GM TUBE TOP SCH ×2 (08:58→20:24)
[2019-04-12] MEDS: Z GUARD REMEDY PASTE 57 GM TUBE TOP SCH ×4 (08:58→20:24)
[2019-04-12] MEDS: ACETAMINOPHEN 650 MG/20 ML UDC- SA PATIENTS-PAIN ONLY GT PRN (09:00)
[2019-04-12] MEDS: HYDROGEN PEROXIDE 3% 118 ML BOTTLE TP SCH ×2 (09:56→20:20)
[2019-04-12] MEDS: GLUCERNA 1.2 1000ML LIQUID GT PRN (17:51)
--- NOTE | 2019-04-12 19:05 | NUR ---
RECEIVED PATIENT ON THE HT-50 VENT WITH THE FOLLOWING SETTINGS THAT ARE CHARTED ON THE MECHANICAL VENT NOTES. TRACH TUBE IS PATENT AND SECURED WITH TRACH TIES. HME CHANGED. TRACH CARE DONE. SUCTIONED SMALL AMOUNTS OF THIN WHITE/YELLOW SECRETIONS. VENT ALARMS CHECKED AND THEY ARE ON AND AUDIBLE. VENT IS PLUGGED IN THE RED OUTLET. BACK UP TRACH AND AMBU BAG IS BY BEDSIDE. PATIENT IS TOLERATING CURRENT VENT SETTINGS WELL AT THIS TIME WITH NO SOB NOTED. WILL CONTINUE TO MONITOR PATIENT.
[2019-04-12] MEDS: ZINC SULFATE 220 MG CAPSULE GT SCH (20:24)
[2019-04-12] MEDS: ACIDOPHILUS/BULGARICUS CHEW TAB GT SCH (20:24)
[2019-04-12] MEDS: ASCORBIC ACID 500 MG TABLET PO SCH (20:24)
[2019-04-12 20:51] VITALS: BP 132/71
[2019-04-13] MEDS: ARGININE/GLUTAMINE/CALCIUM BMB 1 EACH POWD.PACK GT SCH ×2 (05:25→18:00)
[2019-04-13] MEDS: PROTEIN SUPPLEMENT (PROSTAT) 30 ML LIQUID GT SCH ×3 (05:25→21:13)
[2019-04-13] MEDS: POLYVINYL ALCOHOL OPHT DROPS 15 ML BOTTLE EACHEYE SCH ×3 (05:25→21:13)
[2019-04-13 08:30] VITALS: BP 152/69
[2019-04-13] MEDS: DIGOXIN 125 MCG TABLET GT SCH (08:46)
[2019-04-13] MEDS: FAMOTIDINE 20 MG TABLET GT SCH ×2 (08:46→20:53)
[2019-04-13] MEDS: POTASSIUM CHLORIDE 40 MEQ/30 ML LIQUID UDC GT SCH (08:46)
[2019-04-13] MEDS: Z GUARD REMEDY PASTE 57 GM TUBE TOP SCH ×4 (08:46→20:54)
[2019-04-13] MEDS: levETIRAcetam 500 MG/5 ML LIQUID UDC GT SCH ×2 (08:46→20:53)
[2019-04-13] MEDS: CLOTRIMAZOLE 1% CREAM 30 GM TUBE TOP SCH ×2 (08:46→20:53)
[2019-04-13] MEDS: ACETAMINOPHEN 650 MG/20 ML UDC- SA PATIENTS-PAIN ONLY GT PRN (08:47)
[2019-04-13] MEDS: HYDROGEN PEROXIDE 3% 118 ML BOTTLE TP SCH ×2 (09:00→21:14)
[2019-04-13] MEDS: GLUCERNA 1.2 1000ML LIQUID GT PRN (18:01)
--- NOTE | 2019-04-13 20:34 | NUR ---
Received pt on HT-50 ventilator with the following settings of AC-12, Vt-550, PEEP+5, FIO2-30%, trached with Shiley#6 DCT trach, which is in the place and secure. No s/s of respiratory distress noted. Airway care done, pt responded to physical stimuli. HME and Sx Quispe changed. Resus. bag and back up trach at bedside. Vent and alarms checked and reset.
[2019-04-13] MEDS: ACIDOPHILUS/BULGARICUS CHEW TAB GT SCH (20:53)
[2019-04-13] MEDS: ZINC SULFATE 220 MG CAPSULE GT SCH (20:53)
[2019-04-13] MEDS: ASCORBIC ACID 500 MG TABLET PO SCH (20:53)
[2019-04-13 20:57] VITALS: BP 137/63
[2019-04-14] MEDS: ARGININE/GLUTAMINE/CALCIUM BMB 1 EACH POWD.PACK GT SCH ×2 (05:24→17:56)
[2019-04-14] MEDS: POLYVINYL ALCOHOL OPHT DROPS 15 ML BOTTLE EACHEYE SCH ×3 (05:24→21:18)
[2019-04-14] MEDS: PROTEIN SUPPLEMENT (PROSTAT) 30 ML LIQUID GT SCH ×3 (05:24→21:18)
[2019-04-14 08:30] VITALS: BP 124/62
[2019-04-14] MEDS: HYDROGEN PEROXIDE 3% 118 ML BOTTLE TP SCH ×2 (09:00→20:07)
[2019-04-14] MEDS: levETIRAcetam 500 MG/5 ML LIQUID UDC GT SCH ×2 (09:02→20:57)
[2019-04-14] MEDS: DIGOXIN 125 MCG TABLET GT SCH (09:03)
[2019-04-14] MEDS: FAMOTIDINE 20 MG TABLET GT SCH ×2 (09:03→20:57)
[2019-04-14] MEDS: POTASSIUM CHLORIDE 40 MEQ/30 ML LIQUID UDC GT SCH (09:03)
[2019-04-14] MEDS: CLOTRIMAZOLE 1% CREAM 30 GM TUBE TOP SCH ×2 (09:04→20:57)
[2019-04-14] MEDS: Z GUARD REMEDY PASTE 57 GM TUBE TOP SCH ×4 (09:04→20:57)
[2019-04-14] MEDS: ACETAMINOPHEN 650 MG/20 ML UDC- SA PATIENTS-PAIN ONLY GT PRN (09:05)
--- NOTE | 2019-04-14 19:10 | NUR ---
PT RECEIVED ON THE HT-50 VENTILATOR WITH THE FOLLOWING SETTINGS THAT ARE CHARTED ON THE MECHANICAL VENTILATOR NOTES. TRACH CARE DONE AND HME CHANGED. TRACH TUBE IS PATENT AND SECURED WITH TRACH TIES. SUCTIONED SMALL AMOUNTS OF THICK WHITE/YELLOW SECRETIONS. VENTILATOR ALARMS CHECKED AND THEY ARE ON AND LOUD. VENTILATOR IS PLUGGED IN THE RED EMERGENCY OUTLET. SPARE TRACH AND BMV IS BY BEDSIDE. PT IS TOLERATING CURRENT VENTILATOR SETTINGS WELL AT THIS TIME WITH NO SHORTNESS OF BREATH NOTED. WILL CONTINUE TO MONITOR PT THROUGHOUT THE REST OF THE SHIFT.
[2019-04-14] MEDS: ASCORBIC ACID 500 MG TABLET PO SCH (20:57)
[2019-04-14] MEDS: ACIDOPHILUS/BULGARICUS CHEW TAB GT SCH (20:57)
[2019-04-14 21:20] VITALS: BP 117/72
[2019-04-14] MEDS: GLUCERNA 1.2 1000ML LIQUID GT PRN (22:41)
[2019-04-15] MEDS: PROTEIN SUPPLEMENT (PROSTAT) 30 ML LIQUID GT SCH ×3 (05:20→22:32)
[2019-04-15] MEDS: ARGININE/GLUTAMINE/CALCIUM BMB 1 EACH POWD.PACK GT SCH ×2 (05:20→17:28)
[2019-04-15] MEDS: POLYVINYL ALCOHOL OPHT DROPS 15 ML BOTTLE EACHEYE SCH ×3 (05:20→22:32)
[2019-04-15 08:30] VITALS: BP 133/77
[2019-04-15] MEDS: levETIRAcetam 500 MG/5 ML LIQUID UDC GT SCH ×2 (08:35→21:00)
[2019-04-15] MEDS: FAMOTIDINE 20 MG TABLET GT SCH ×2 (08:36→21:50)
[2019-04-15] MEDS: CLOTRIMAZOLE 1% CREAM 30 GM TUBE TOP SCH ×2 (08:36→21:50)
[2019-04-15] MEDS: POTASSIUM CHLORIDE 40 MEQ/30 ML LIQUID UDC GT SCH (08:36)
[2019-04-15] MEDS: Z GUARD REMEDY PASTE 57 GM TUBE TOP SCH ×4 (08:36→22:32)
[2019-04-15] MEDS: DIGOXIN 125 MCG TABLET GT SCH (08:36)
[2019-04-15] MEDS: HYDROGEN PEROXIDE 3% 118 ML BOTTLE TP SCH ×2 (09:00→21:52)
[2019-04-15] MEDS: ACIDOPHILUS/BULGARICUS CHEW TAB GT SCH (21:00)
[2019-04-15] MEDS: ASCORBIC ACID 500 MG TABLET PO SCH (21:45)
[2019-04-15 22:04] VITALS: BP 140/76
[2019-04-16] MEDS: ARGININE/GLUTAMINE/CALCIUM BMB 1 EACH POWD.PACK GT SCH ×2 (05:52→17:10)
[2019-04-16] MEDS: PROTEIN SUPPLEMENT (PROSTAT) 30 ML LIQUID GT SCH ×3 (05:52→22:36)
[2019-04-16] MEDS: POLYVINYL ALCOHOL OPHT DROPS 15 ML BOTTLE EACHEYE SCH ×3 (05:52→22:36)
[2019-04-16 08:00] VITALS: BP 123/61
[2019-04-16] MEDS: levETIRAcetam 500 MG/5 ML LIQUID UDC GT SCH ×2 (08:39→20:27)
[2019-04-16] MEDS: POTASSIUM CHLORIDE 40 MEQ/30 ML LIQUID UDC GT SCH (08:40)
[2019-04-16] MEDS: CLOTRIMAZOLE 1% CREAM 30 GM TUBE TOP SCH ×2 (08:40→20:29)
[2019-04-16] MEDS: FAMOTIDINE 20 MG TABLET GT SCH ×2 (08:40→20:28)
[2019-04-16] MEDS: Z GUARD REMEDY PASTE 57 GM TUBE TOP SCH ×4 (08:40→20:29)
[2019-04-16] MEDS: DIGOXIN 125 MCG TABLET GT SCH (08:40)
[2019-04-16] MEDS: HYDROGEN PEROXIDE 3% 118 ML BOTTLE TP SCH ×2 (09:50→20:31)
[2019-04-16] MEDS: GLUCERNA 1.2 1000ML LIQUID GT PRN (17:36)
[2019-04-16] MEDS: ACIDOPHILUS/BULGARICUS CHEW TAB GT SCH (20:27)
[2019-04-16] MEDS: ASCORBIC ACID 500 MG TABLET PO SCH (20:28)
[2019-04-16 21:39] VITALS: BP 126/70
[2019-04-17] MEDS: POLYVINYL ALCOHOL OPHT DROPS 15 ML BOTTLE EACHEYE SCH ×3 (05:38→22:54)
[2019-04-17] MEDS: ARGININE/GLUTAMINE/CALCIUM BMB 1 EACH POWD.PACK GT SCH ×2 (05:40→17:17)
[2019-04-17] MEDS: PROTEIN SUPPLEMENT (PROSTAT) 30 ML LIQUID GT SCH ×3 (05:40→22:54)
[2019-04-17] MEDS: CLOTRIMAZOLE 1% CREAM 30 GM TUBE TOP SCH ×2 (08:42→20:28)
[2019-04-17] MEDS: Z GUARD REMEDY PASTE 57 GM TUBE TOP SCH ×4 (08:42→20:29)
[2019-04-17] MEDS: POTASSIUM CHLORIDE 40 MEQ/30 ML LIQUID UDC GT SCH (08:42)
[2019-04-17] MEDS: DIGOXIN 125 MCG TABLET GT SCH (08:42)
[2019-04-17] MEDS: FAMOTIDINE 20 MG TABLET GT SCH ×2 (08:42→20:28)
[2019-04-17] MEDS: levETIRAcetam 500 MG/5 ML LIQUID UDC GT SCH ×2 (08:42→20:27)
[2019-04-17] MEDS: HYDROGEN PEROXIDE 3% 118 ML BOTTLE TP SCH ×2 (09:00→20:54)
[2019-04-17 12:15] VITALS: BP 146/76
[2019-04-17] MEDS: ACIDOPHILUS/BULGARICUS CHEW TAB GT SCH (20:27)
[2019-04-17] MEDS: ASCORBIC ACID 500 MG TABLET PO SCH (20:28)
[2019-04-17 21:03] VITALS: BP 125/57
[2019-04-18] MEDS: POLYVINYL ALCOHOL OPHT DROPS 15 ML BOTTLE EACHEYE SCH ×3 (05:08→22:41)
[2019-04-18] MEDS: ARGININE/GLUTAMINE/CALCIUM BMB 1 EACH POWD.PACK GT SCH ×2 (05:08→17:15)
[2019-04-18] MEDS: PROTEIN SUPPLEMENT (PROSTAT) 30 ML LIQUID GT SCH ×3 (05:08→22:41)
[2019-04-18] MEDS: HYDROGEN PEROXIDE 3% 118 ML BOTTLE TP SCH ×2 (08:29→20:24)
[2019-04-18] MEDS: levETIRAcetam 500 MG/5 ML LIQUID UDC GT SCH ×2 (08:59→20:19)
[2019-04-18] MEDS: POTASSIUM CHLORIDE 40 MEQ/30 ML LIQUID UDC GT SCH (09:00)
[2019-04-18] MEDS: DIGOXIN 125 MCG TABLET GT SCH (09:00)
[2019-04-18] MEDS: FAMOTIDINE 20 MG TABLET GT SCH ×2 (09:00→20:20)
[2019-04-18] MEDS: CLOTRIMAZOLE 1% CREAM 30 GM TUBE TOP SCH ×2 (09:00→20:21)
[2019-04-18] MEDS: Z GUARD REMEDY PASTE 57 GM TUBE TOP SCH ×4 (09:00→20:21)
[2019-04-18 11:21] VITALS: BP 140/63
--- NOTE | 2019-04-18 18:15 | NUR ---
PT. PUSHED OUT F/C WITH BALLOON INFLATED WHEN COUGHING AND WAS PAGED TO CONSIDER CHANGING F/C TO A BIGGER SIZE.
[2019-04-18] MEDS: ACIDOPHILUS/BULGARICUS CHEW TAB GT SCH (20:19)
[2019-04-18] MEDS: ASCORBIC ACID 500 MG TABLET PO SCH (20:20)
[2019-04-18 22:08] VITALS: BP 110/68
[2019-04-19] MEDS: ARGININE/GLUTAMINE/CALCIUM BMB 1 EACH POWD.PACK GT SCH ×2 (05:06→17:36)
[2019-04-19] MEDS: POLYVINYL ALCOHOL OPHT DROPS 15 ML BOTTLE EACHEYE SCH ×3 (05:06→21:37)
[2019-04-19] MEDS: PROTEIN SUPPLEMENT (PROSTAT) 30 ML LIQUID GT SCH ×3 (05:07→21:37)
[2019-04-19] MEDS: CLOTRIMAZOLE 1% CREAM 30 GM TUBE TOP SCH ×2 (08:55→20:19)
[2019-04-19] MEDS: Z GUARD REMEDY PASTE 57 GM TUBE TOP SCH ×4 (08:55→20:19)
[2019-04-19] MEDS: FAMOTIDINE 20 MG TABLET GT SCH ×2 (08:55→20:19)
[2019-04-19] MEDS: DIGOXIN 125 MCG TABLET GT SCH (08:55)
[2019-04-19] MEDS: POTASSIUM CHLORIDE 40 MEQ/30 ML LIQUID UDC GT SCH (08:55)
[2019-04-19] MEDS: levETIRAcetam 500 MG/5 ML LIQUID UDC GT SCH ×2 (08:55→20:18)
[2019-04-19] MEDS: HYDROGEN PEROXIDE 3% 118 ML BOTTLE TP SCH ×2 (09:59→20:27)
[2019-04-19 10:10] VITALS: BP 129/65
--- NOTE | 2019-04-19 12:24 | NUR ---
DR. OSHEA WAS CALLED AND AWARE THAT PT. PUSHED OUT F/C WITH BALLOON AND WITH NEW ORDER CARRIED OUT TO INCREASE SIZE TO FR. 24X 10ML.
--- NOTE | 2019-04-19 15:11 | NUR ---
FELICITA prepared all the annual admission paperwork and turned them over to RN Sharon, asking her to give the paperwork to the patient's daughter Sheeba when she visits over the weekend, so that Sheeba can review and sign the forms. FELICITA included instructions on how to review and where to sign on the forms. Sharon verbalized understanding and agreement.
[2019-04-19] MEDS: ACIDOPHILUS/BULGARICUS CHEW TAB GT SCH (20:16)
[2019-04-19] MEDS: ASCORBIC ACID 500 MG TABLET PO SCH (20:19)
[2019-04-19 20:43] VITALS: BP 131/80
[2019-04-20] MEDS: GLUCERNA 1.2 1000ML LIQUID GT PRN (00:15)
[2019-04-20] MEDS: POLYVINYL ALCOHOL OPHT DROPS 15 ML BOTTLE EACHEYE SCH ×3 (05:23→21:20)
[2019-04-20] MEDS: ARGININE/GLUTAMINE/CALCIUM BMB 1 EACH POWD.PACK GT SCH ×2 (05:23→17:55)
[2019-04-20] MEDS: PROTEIN SUPPLEMENT (PROSTAT) 30 ML LIQUID GT SCH ×3 (05:25→21:20)
[2019-04-20 06:36] LABS: BASOPHILS % (AUTO) 0.7 % (0.0-2.0); EOSINOPHILS # (AUTO) 0.1 K/uL (0.0-0.7); EOSINOPHILS % (AUTO) 3.3 % (0.0-7.0); HEMATOCRIT 36.1 % (31.2-41.9); HEMOGLOBIN 11.8 g/dL (10.9-14.3); LYMPHOCYTES # (AUTO) 1.5 K/uL (20.0-40.0); LYMPHOCYTES % (AUTO) 39.3 % (20.5-51.5); MEAN CORPUSCULAR HEMOGLOBIN 30.4 uug (24.7-32.8); MEAN CORPUSCULAR HGB CONC 33 g/dL (32.3-35.6); MEAN CORPUSCULAR VOLUME 92.7 fL (75.5-95.3); MONOCYTES # (AUTO) 0.5 K/uL (2.0-10.0); MONOCYTES % (AUTO) 12.7 % (0.0-11.0); NEUTROPHILS # (AUTO) 1.7 K/uL (1.8-8.9); PLATELET COUNT (AUTO) 83 K/uL (179-408); WHITE BLOOD COUNT (AUTO) 3.8 K/uL (3.8-11.8)
[2019-04-20 06:52] LABS: CARBON DIOXIDE 31 mmol/L (21-32); CHLORIDE 106 mmol/L (98-107); CREATININE 0.5 mg/dL (0.6-1.3); GLUCOSE 93 mg/dL (74-106); MAGNESIUM 2.2 mg/dL (1.8-2.4); PHOSPHOROUS 3.9 mg/dL (2.5-4.9); POTASSIUM 3.9 mmol/L (3.5-5.1); UREA NITROGEN, BLOOD 25 mg/dL (7-18)
[2019-04-20] MEDS: HYDROGEN PEROXIDE 3% 118 ML BOTTLE TP SCH ×2 (08:50→21:00)
[2019-04-20] MEDS: levETIRAcetam 500 MG/5 ML LIQUID UDC GT SCH ×2 (09:38→21:19)
[2019-04-20] MEDS: FAMOTIDINE 20 MG TABLET GT SCH ×2 (09:39→21:19)
[2019-04-20] MEDS: DIGOXIN 125 MCG TABLET GT SCH (09:39)
[2019-04-20] MEDS: POTASSIUM CHLORIDE 40 MEQ/30 ML LIQUID UDC GT SCH (09:39)
[2019-04-20] MEDS: CLOTRIMAZOLE 1% CREAM 30 GM TUBE TOP SCH ×2 (09:40→21:19)
[2019-04-20] MEDS: Z GUARD REMEDY PASTE 57 GM TUBE TOP SCH ×4 (09:40→21:19)
--- NOTE | 2019-04-20 10:16 | NUR ---
SEEN BY DR. VALLE AND WITH NNO.
[2019-04-20 11:50] VITALS: BP 125/56
[2019-04-20 20:26] VITALS: BP 150/88
[2019-04-20] MEDS: ACIDOPHILUS/BULGARICUS CHEW TAB GT SCH (21:19)
[2019-04-20] MEDS: ASCORBIC ACID 500 MG TABLET PO SCH (21:19)
[2019-04-21] MEDS: GLUCERNA 1.2 1000ML LIQUID GT PRN (04:49)
[2019-04-21] MEDS: PROTEIN SUPPLEMENT (PROSTAT) 30 ML LIQUID GT SCH ×3 (06:15→21:45)
[2019-04-21] MEDS: POLYVINYL ALCOHOL OPHT DROPS 15 ML BOTTLE EACHEYE SCH ×3 (06:15→21:45)
[2019-04-21] MEDS: ARGININE/GLUTAMINE/CALCIUM BMB 1 EACH POWD.PACK GT SCH ×2 (06:15→17:34)
[2019-04-21] MEDS: levETIRAcetam 500 MG/5 ML LIQUID UDC GT SCH ×2 (08:15→21:43)
[2019-04-21] MEDS: DIGOXIN 125 MCG TABLET GT SCH (08:17)
[2019-04-21] MEDS: FAMOTIDINE 20 MG TABLET GT SCH ×2 (08:17→21:44)
[2019-04-21] MEDS: POTASSIUM CHLORIDE 40 MEQ/30 ML LIQUID UDC GT SCH (08:18)
[2019-04-21] MEDS: Z GUARD REMEDY PASTE 57 GM TUBE TOP SCH ×4 (08:18→21:45)
[2019-04-21] MEDS: CLOTRIMAZOLE 1% CREAM 30 GM TUBE TOP SCH ×2 (08:18→21:45)
[2019-04-21] MEDS: HYDROGEN PEROXIDE 3% 118 ML BOTTLE TP SCH ×2 (09:00→20:37)
[2019-04-21 11:15] VITALS: BP 127/70
[2019-04-21 20:27] VITALS: BP 152/81
[2019-04-21] MEDS: ACIDOPHILUS/BULGARICUS CHEW TAB GT SCH (21:43)
[2019-04-21] MEDS: ASCORBIC ACID 500 MG TABLET PO SCH (21:44)
[2019-04-22] MEDS: POLYVINYL ALCOHOL OPHT DROPS 15 ML BOTTLE EACHEYE SCH ×3 (05:43→22:05)
[2019-04-22] MEDS: PROTEIN SUPPLEMENT (PROSTAT) 30 ML LIQUID GT SCH ×3 (05:43→22:05)
[2019-04-22] MEDS: ARGININE/GLUTAMINE/CALCIUM BMB 1 EACH POWD.PACK GT SCH ×2 (05:43→18:07)
[2019-04-22] MEDS: GLUCERNA 1.2 1000ML LIQUID GT PRN (07:06)
[2019-04-22] MEDS: HYDROGEN PEROXIDE 3% 118 ML BOTTLE TP SCH ×2 (08:22→21:18)
[2019-04-22] MEDS: levETIRAcetam 500 MG/5 ML LIQUID UDC GT SCH ×2 (08:59→21:00)
[2019-04-22] MEDS: FAMOTIDINE 20 MG TABLET GT SCH ×2 (09:00→21:00)
[2019-04-22] MEDS: DIGOXIN 125 MCG TABLET GT SCH (09:00)
[2019-04-22] MEDS: POTASSIUM CHLORIDE 40 MEQ/30 ML LIQUID UDC GT SCH (09:00)
[2019-04-22] MEDS: CLOTRIMAZOLE 1% CREAM 30 GM TUBE TOP SCH ×2 (09:00→21:00)
[2019-04-22] MEDS: Z GUARD REMEDY PASTE 57 GM TUBE TOP SCH ×4 (09:01→21:00)
[2019-04-22] MEDS: ACETAMINOPHEN 650 MG/20 ML UDC- SA PATIENTS-PAIN ONLY GT PRN (09:02)
[2019-04-22 09:07] VITALS: BP 136/64
--- NOTE | 2019-04-22 10:36 | NUR ---
SW received the signed annual admission paperwork back today, signed by patient's daughter Sheeba. The paperwork includes: Conditions of Admission, Patient Rights Acknowledgement, Documentation of Preferred Intensity of Care, Voluntary Prior Express Consent Form, Race and Ethnicity Patient Self-Identification, and the [facility] Agreement. For assessment/quarterly information, see patient's previous chart #[id number].
[2019-04-22 20:25] VITALS: BP 142/70
--- NOTE | 2019-04-22 20:31 | NUR ---
Received pt on HT-50 ventilator with the following settings of AC-12, Vt-550, PEEP+5, FIO2-30%, trached with Shiley#6 DCT trach, which is in the place and secure. No s/s of respiratory distress noted. Airway care done, pt responded to physical stimuli. Resus. bag and back up trach at bedside. Vent and alarms checked and reset.
[2019-04-22] MEDS: ACIDOPHILUS/BULGARICUS CHEW TAB GT SCH (21:00)
[2019-04-22] MEDS: ASCORBIC ACID 500 MG TABLET PO SCH (21:00)
[2019-04-23] MEDS: PROTEIN SUPPLEMENT (PROSTAT) 30 ML LIQUID GT SCH ×3 (05:28→21:07)
[2019-04-23] MEDS: POLYVINYL ALCOHOL OPHT DROPS 15 ML BOTTLE EACHEYE SCH ×3 (05:28→21:07)
[2019-04-23] MEDS: ARGININE/GLUTAMINE/CALCIUM BMB 1 EACH POWD.PACK GT SCH ×2 (05:28→18:07)
[2019-04-23] MEDS: levETIRAcetam 500 MG/5 ML LIQUID UDC GT SCH ×2 (08:34→21:04)
[2019-04-23] MEDS: DIGOXIN 125 MCG TABLET GT SCH (08:35)
[2019-04-23] MEDS: FAMOTIDINE 20 MG TABLET GT SCH ×2 (08:35→21:10)
[2019-04-23] MEDS: Z GUARD REMEDY PASTE 57 GM TUBE TOP SCH ×4 (08:35→21:07)
[2019-04-23] MEDS: POTASSIUM CHLORIDE 40 MEQ/30 ML LIQUID UDC GT SCH (08:35)
[2019-04-23] MEDS: CLOTRIMAZOLE 1% CREAM 30 GM TUBE TOP SCH ×2 (08:35→21:07)
[2019-04-23] MEDS: HYDROGEN PEROXIDE 3% 118 ML BOTTLE TP SCH ×2 (09:00→21:23)
--- NOTE | 2019-04-23 15:07 | NUR ---
Seen and examined by Aylin Quintero,no new orders noted.
[2019-04-23 20:15] VITALS: BP 148/68
[2019-04-23] MEDS: ACIDOPHILUS/BULGARICUS CHEW TAB GT SCH (21:04)
[2019-04-23] MEDS: ASCORBIC ACID 500 MG TABLET PO SCH (21:07)
[2019-04-24] MEDS: POLYVINYL ALCOHOL OPHT DROPS 15 ML BOTTLE EACHEYE SCH ×3 (05:11→22:09)
[2019-04-24] MEDS: ARGININE/GLUTAMINE/CALCIUM BMB 1 EACH POWD.PACK GT SCH ×2 (05:11→18:00)
[2019-04-24] MEDS: PROTEIN SUPPLEMENT (PROSTAT) 30 ML LIQUID GT SCH ×3 (05:12→22:09)
[2019-04-24] MEDS: GLUCERNA 1.2 1000ML LIQUID GT PRN (07:08)
--- NOTE | 2019-04-24 08:02 | NUR ---
Pt received in bed, laying semi-Adames's, obtunded - unable to communicate - withdraws to physical stimuli.. Pt trach: Barry [address] and secure with tie, no irritation / breakdown visible under / around trach tie.. Stoma appears normal, no redness noted.. Stoma site clean and dry at this time.. Continuous mechanical ventilation, vent: HT-50 with settings: A/C 12, Vt 550, PEEP +5, FiO2 30%, tolerating well at this time, no changes made to settings.. Vent alarms on and audible, functioning properly at this time.. BVM / back up trach at bedside.. Vent plugged in to red emergency outlet.. No s/s of respiratory distress / S.O.B noted, will continue to monitor..
[2019-04-24] MEDS: levETIRAcetam 500 MG/5 ML LIQUID UDC GT SCH ×2 (08:46→20:58)
[2019-04-24] MEDS: POTASSIUM CHLORIDE 40 MEQ/30 ML LIQUID UDC GT SCH (08:47)
[2019-04-24] MEDS: DIGOXIN 125 MCG TABLET GT SCH (08:47)
[2019-04-24] MEDS: FAMOTIDINE 20 MG TABLET GT SCH ×2 (08:47→20:58)
[2019-04-24] MEDS: CLOTRIMAZOLE 1% CREAM 30 GM TUBE TOP SCH ×2 (08:48→20:58)
[2019-04-24] MEDS: Z GUARD REMEDY PASTE 57 GM TUBE TOP SCH ×4 (08:48→20:59)
[2019-04-24] MEDS: HYDROGEN PEROXIDE 3% 118 ML BOTTLE TP SCH ×2 (09:09→21:18)
[2019-04-24 11:08] VITALS: BP 155/79
[2019-04-24 20:00] VITALS: BP 135/59
[2019-04-24] MEDS: ACIDOPHILUS/BULGARICUS CHEW TAB GT SCH (20:58)
[2019-04-24] MEDS: ASCORBIC ACID 500 MG TABLET PO SCH (20:58)
[2019-04-25] MEDS: GLUCERNA 1.2 1000ML LIQUID GT PRN (05:17)
[2019-04-25] MEDS: ARGININE/GLUTAMINE/CALCIUM BMB 1 EACH POWD.PACK GT SCH ×2 (05:17→17:53)
[2019-04-25] MEDS: PROTEIN SUPPLEMENT (PROSTAT) 30 ML LIQUID GT SCH ×3 (05:17→21:20)
[2019-04-25] MEDS: POLYVINYL ALCOHOL OPHT DROPS 15 ML BOTTLE EACHEYE SCH ×3 (05:17→21:20)
[2019-04-25] MEDS: HYDROGEN PEROXIDE 3% 118 ML BOTTLE TP SCH ×2 (07:53→21:25)
[2019-04-25] MEDS: levETIRAcetam 500 MG/5 ML LIQUID UDC GT SCH ×2 (08:17→21:18)
[2019-04-25] MEDS: DIGOXIN 125 MCG TABLET GT SCH (08:17)
[2019-04-25] MEDS: POTASSIUM CHLORIDE 40 MEQ/30 ML LIQUID UDC GT SCH (08:18)
[2019-04-25] MEDS: Z GUARD REMEDY PASTE 57 GM TUBE TOP SCH ×4 (08:18→21:19)
[2019-04-25] MEDS: CLOTRIMAZOLE 1% CREAM 30 GM TUBE TOP SCH ×2 (08:18→21:18)
[2019-04-25] MEDS: FAMOTIDINE 20 MG TABLET GT SCH ×2 (08:18→21:18)
[2019-04-25 14:39] VITALS: BP 142/79
--- NOTE | 2019-04-25 20:22 | NUR ---
Received pt on HT-50 ventilator with the following settings of AC-12, Vt-550, PEEP+5, FIO2-30%, trached with Shiley#6 DCT trach, which is in the place and secure. No respiratory distress noted. Airway care done, pt responded to physical stimuli. HME changed. Resus. bag and back up trach at bedside. Vent and alarms checked and reset.
[2019-04-25 20:58] VITALS: BP 136/70
[2019-04-25] MEDS: ACIDOPHILUS/BULGARICUS CHEW TAB GT SCH (21:18)
[2019-04-25] MEDS: ASCORBIC ACID 500 MG TABLET PO SCH (21:18)
--- NOTE | 2019-04-26 03:09 | NUR ---
Patient's cintron catheter got dislodged, replaced with no bleeding noted, tolerated procedure well, cintron catheter is now intact and draining to a yellow urine, kept clean and comfortable.
[2019-04-26] MEDS: POLYVINYL ALCOHOL OPHT DROPS 15 ML BOTTLE EACHEYE SCH ×3 (05:07→22:24)
[2019-04-26] MEDS: PROTEIN SUPPLEMENT (PROSTAT) 30 ML LIQUID GT SCH ×3 (05:07→22:24)
[2019-04-26] MEDS: ARGININE/GLUTAMINE/CALCIUM BMB 1 EACH POWD.PACK GT SCH ×2 (05:07→17:02)
[2019-04-26] MEDS: levETIRAcetam 500 MG/5 ML LIQUID UDC GT SCH ×2 (08:20→20:41)
[2019-04-26] MEDS: DIGOXIN 125 MCG TABLET GT SCH (08:21)
[2019-04-26] MEDS: POTASSIUM CHLORIDE 40 MEQ/30 ML LIQUID UDC GT SCH (08:22)
[2019-04-26] MEDS: FAMOTIDINE 20 MG TABLET GT SCH ×2 (08:22→20:41)
[2019-04-26] MEDS: CLOTRIMAZOLE 1% CREAM 30 GM TUBE TOP SCH ×2 (08:22→20:41)
[2019-04-26] MEDS: Z GUARD REMEDY PASTE 57 GM TUBE TOP SCH ×4 (08:22→20:42)
[2019-04-26] MEDS: GLUCERNA 1.2 1000ML LIQUID GT PRN (08:49)
[2019-04-26] MEDS: HYDROGEN PEROXIDE 3% 118 ML BOTTLE TP SCH ×2 (10:40→19:23)
[2019-04-26 11:06] VITALS: BP 132/67
[2019-04-26 20:00] VITALS: BP 138/69
[2019-04-26] MEDS: ASCORBIC ACID 500 MG TABLET PO SCH (20:41)
[2019-04-26] MEDS: ACIDOPHILUS/BULGARICUS CHEW TAB GT SCH (20:41)
[2019-04-26] MEDS: ACETAMINOPHEN 650 MG/20 ML UDC- SA PATIENTS-PAIN ONLY GT PRN (20:50)
[2019-04-27] MEDS: POLYVINYL ALCOHOL OPHT DROPS 15 ML BOTTLE EACHEYE SCH ×3 (05:31→22:01)
[2019-04-27] MEDS: PROTEIN SUPPLEMENT (PROSTAT) 30 ML LIQUID GT SCH ×3 (05:31→22:01)
[2019-04-27] MEDS: ARGININE/GLUTAMINE/CALCIUM BMB 1 EACH POWD.PACK GT SCH ×2 (05:31→18:17)
[2019-04-27 08:00] VITALS: BP 149/63
[2019-04-27] MEDS: CLOTRIMAZOLE 1% CREAM 30 GM TUBE TOP SCH ×2 (08:06→21:00)
[2019-04-27] MEDS: DIGOXIN 125 MCG TABLET GT SCH (08:06)
[2019-04-27] MEDS: POTASSIUM CHLORIDE 40 MEQ/30 ML LIQUID UDC GT SCH (08:06)
[2019-04-27] MEDS: levETIRAcetam 500 MG/5 ML LIQUID UDC GT SCH ×2 (08:06→21:00)
[2019-04-27] MEDS: FAMOTIDINE 20 MG TABLET GT SCH ×2 (08:06→21:00)
[2019-04-27] MEDS: Z GUARD REMEDY PASTE 57 GM TUBE TOP SCH ×4 (08:06→21:00)
[2019-04-27] MEDS: GLUCERNA 1.2 1000ML LIQUID GT PRN (08:43)
[2019-04-27] MEDS: HYDROGEN PEROXIDE 3% 118 ML BOTTLE TP SCH ×2 (10:30→20:53)
[2019-04-27 19:54] VITALS: BP 145/77
[2019-04-27] MEDS: ASCORBIC ACID 500 MG TABLET PO SCH (21:00)
[2019-04-27] MEDS: ACIDOPHILUS/BULGARICUS CHEW TAB GT SCH (21:00)
[2019-04-28] MEDS: ARGININE/GLUTAMINE/CALCIUM BMB 1 EACH POWD.PACK GT SCH ×2 (05:07→17:30)
[2019-04-28] MEDS: POLYVINYL ALCOHOL OPHT DROPS 15 ML BOTTLE EACHEYE SCH ×3 (05:07→21:39)
[2019-04-28] MEDS: PROTEIN SUPPLEMENT (PROSTAT) 30 ML LIQUID GT SCH ×3 (05:07→21:39)
[2019-04-28 08:07] VITALS: BP 132/69
[2019-04-28] MEDS: levETIRAcetam 500 MG/5 ML LIQUID UDC GT SCH ×2 (08:18→21:38)
[2019-04-28] MEDS: Z GUARD REMEDY PASTE 57 GM TUBE TOP SCH ×4 (08:19→21:38)
[2019-04-28] MEDS: FAMOTIDINE 20 MG TABLET GT SCH ×2 (08:19→21:38)
[2019-04-28] MEDS: POTASSIUM CHLORIDE 40 MEQ/30 ML LIQUID UDC GT SCH (08:19)
[2019-04-28] MEDS: CLOTRIMAZOLE 1% CREAM 30 GM TUBE TOP SCH ×2 (08:19→21:38)
[2019-04-28] MEDS: DIGOXIN 125 MCG TABLET GT SCH (08:19)
[2019-04-28] MEDS: HYDROGEN PEROXIDE 3% 118 ML BOTTLE TP SCH ×2 (08:32→21:14)
[2019-04-28] MEDS: GLUCERNA 1.2 1000ML LIQUID GT PRN (11:24)
[2019-04-28 20:35] VITALS: BP 127/67
[2019-04-28] MEDS: ACIDOPHILUS/BULGARICUS CHEW TAB GT SCH (21:38)
[2019-04-28] MEDS: ASCORBIC ACID 500 MG TABLET PO SCH (21:38)
[2019-04-29] MEDS: ARGININE/GLUTAMINE/CALCIUM BMB 1 EACH POWD.PACK GT SCH ×2 (05:37→17:49)
[2019-04-29] MEDS: PROTEIN SUPPLEMENT (PROSTAT) 30 ML LIQUID GT SCH ×3 (05:37→22:04)
[2019-04-29] MEDS: POLYVINYL ALCOHOL OPHT DROPS 15 ML BOTTLE EACHEYE SCH ×3 (05:37→22:04)
[2019-04-29] MEDS: DIGOXIN 125 MCG TABLET GT SCH (08:44)
[2019-04-29] MEDS: Z GUARD REMEDY PASTE 57 GM TUBE TOP SCH ×4 (08:44→20:54)
[2019-04-29] MEDS: CLOTRIMAZOLE 1% CREAM 30 GM TUBE TOP SCH ×2 (08:44→20:54)
[2019-04-29] MEDS: POTASSIUM CHLORIDE 40 MEQ/30 ML LIQUID UDC GT SCH (08:44)
[2019-04-29] MEDS: FAMOTIDINE 20 MG TABLET GT SCH ×2 (08:44→20:53)
[2019-04-29] MEDS: levETIRAcetam 500 MG/5 ML LIQUID UDC GT SCH (08:44)
[2019-04-29] MEDS: HYDROGEN PEROXIDE 3% 118 ML BOTTLE TP SCH ×2 (09:42→19:22)
--- NOTE | 2019-04-29 11:28 | NUR ---
SEEN BY CYNTHIA MUNIZ WITH NO NEW ORDER.
--- NOTE | 2019-04-29 17:11 | NUR ---
SEEN BY DR RAMOS WITH NEW ORDER NOTED AND CARRIED OUT.
[2019-04-29] MEDS: GLUCERNA 1.2 1000ML LIQUID GT PRN (17:52)
[2019-04-29] MEDS: ACIDOPHILUS/BULGARICUS CHEW TAB GT SCH (20:53)
[2019-04-29] MEDS: levETIRAcetam 500 MG/5 ML LIQUID UDC PO SCH (20:53)
[2019-04-29] MEDS: ASCORBIC ACID 500 MG TABLET PO SCH (20:54)
[2019-04-29 21:17] VITALS: BP 122/59
[2019-04-30] MEDS: ARGININE/GLUTAMINE/CALCIUM BMB 1 EACH POWD.PACK GT SCH ×2 (06:11→17:31)
[2019-04-30] MEDS: POLYVINYL ALCOHOL OPHT DROPS 15 ML BOTTLE EACHEYE SCH ×3 (06:11→22:14)
[2019-04-30] MEDS: PROTEIN SUPPLEMENT (PROSTAT) 30 ML LIQUID GT SCH ×3 (06:11→22:14)
--- NOTE | 2019-04-30 07:45 | NUR ---
PT REC'D ON SANDERS VENT TOLERATING CURRENT VENT SETTINGS WELL, NO DISTRESS NOTED GIVEN IN AM REPORT. PT VENT'D VIA TRACHEOSTOMY, TUBE IN PLACE PATENT AND SECURE WITH TRACH TIE. SXN'ING TO BE DONE NEEDED. VENT ALARMS AUDIBLE, CHECKED AND RESET. BVM AND BACK-UP TRACH AT BEDSIDE.
[2019-04-30] MEDS: CLOTRIMAZOLE 1% CREAM 30 GM TUBE TOP SCH ×2 (08:33→20:18)
[2019-04-30] MEDS: POTASSIUM CHLORIDE 40 MEQ/30 ML LIQUID UDC GT SCH (08:33)
[2019-04-30] MEDS: FAMOTIDINE 20 MG TABLET GT SCH ×2 (08:33→20:16)
[2019-04-30] MEDS: levETIRAcetam 500 MG/5 ML LIQUID UDC PO SCH ×2 (08:33→20:16)
[2019-04-30] MEDS: DIGOXIN 125 MCG TABLET GT SCH (08:33)
[2019-04-30] MEDS: Z GUARD REMEDY PASTE 57 GM TUBE TOP SCH ×4 (08:34→20:18)
[2019-04-30] MEDS: HYDROGEN PEROXIDE 3% 118 ML BOTTLE TP SCH ×2 (09:17→21:06)
[2019-04-30 11:49] VITALS: BP 129/74
--- NOTE | 2019-04-30 15:04 | NUR ---
INTERDISCIPLINARY PLAN OF CARE CONFERENCE was held today. Patient's daughter Sheeba was not able to attend the meeting. Dr. Murguia and the Interdisciplinary Team reviewed the current plan of care in detail. RN reported on patient's current medical condition, updates in medications, and ongoing wound care. No major changes in condition were reported. See RN IDT conference notes. See also all other disciplines IDT notes and physician's progress notes for additional details.
--- NOTE | 2019-04-30 20:11 | NUR ---
Pt received on HT-50 ventilator with the following settings of AC-12, Vt-550, PEEP+5, FIO2-30%, trached with Shiley#6 DCT trach, which is in the place and secure. No respiratory distress noted. Airway care done, pt responded to physical stimuli. HME changed. Resus. bag and back up trach at bedside. Vent and alarms checked and reset.
[2019-04-30] MEDS: ACIDOPHILUS/BULGARICUS CHEW TAB GT SCH (20:15)
[2019-04-30] MEDS: ASCORBIC ACID 500 MG TABLET PO SCH (20:17)
[2019-04-30 21:06] VITALS: BP 130/74
[2019-05-01] MEDS: GLUCERNA 1.2 1000ML LIQUID GT PRN (01:45)
[2019-05-01] MEDS: ARGININE/GLUTAMINE/CALCIUM BMB 1 EACH POWD.PACK GT SCH ×2 (05:34→17:08)
[2019-05-01] MEDS: POLYVINYL ALCOHOL OPHT DROPS 15 ML BOTTLE EACHEYE SCH ×3 (05:34→21:21)
[2019-05-01] MEDS: PROTEIN SUPPLEMENT (PROSTAT) 30 ML LIQUID GT SCH ×3 (05:35→21:21)
[2019-05-01] MEDS: HYDROGEN PEROXIDE 3% 118 ML BOTTLE TP SCH ×2 (08:40→19:06)
[2019-05-01] MEDS: levETIRAcetam 500 MG/5 ML LIQUID UDC PO SCH (09:03)
[2019-05-01] MEDS: Z GUARD REMEDY PASTE 57 GM TUBE TOP SCH ×2 (09:03→21:21)
[2019-05-01] MEDS: DIGOXIN 125 MCG TABLET GT SCH (09:03)
[2019-05-01] MEDS: FAMOTIDINE 20 MG TABLET GT SCH ×2 (09:03→21:19)
[2019-05-01] MEDS: POTASSIUM CHLORIDE 40 MEQ/30 ML LIQUID UDC GT SCH (09:03)
[2019-05-01 11:27] VITALS: BP 108/88
[2019-05-01 20:52] VITALS: BP 150/76
[2019-05-01] MEDS: ACIDOPHILUS/BULGARICUS CHEW TAB GT SCH (21:17)
[2019-05-01] MEDS: levETIRAcetam 500 MG/5 ML LIQUID UDC GT SCH (21:18)
[2019-05-01] MEDS: ASCORBIC ACID 500 MG TABLET PO SCH (21:19)
[2019-05-02] MEDS: PROTEIN SUPPLEMENT (PROSTAT) 30 ML LIQUID GT SCH ×3 (06:02→22:44)
[2019-05-02] MEDS: POLYVINYL ALCOHOL OPHT DROPS 15 ML BOTTLE EACHEYE SCH ×3 (06:02→22:44)
[2019-05-02] MEDS: ARGININE/GLUTAMINE/CALCIUM BMB 1 EACH POWD.PACK GT SCH ×2 (06:02→17:22)
[2019-05-02] MEDS: GLUCERNA 1.2 1000ML LIQUID GT PRN (06:02)
[2019-05-02] MEDS: Z GUARD REMEDY PASTE 57 GM TUBE TOP SCH ×2 (08:22→20:17)
[2019-05-02] MEDS: levETIRAcetam 500 MG/5 ML LIQUID UDC GT SCH ×2 (08:22→20:16)
[2019-05-02] MEDS: DIGOXIN 125 MCG TABLET GT SCH (08:22)
[2019-05-02] MEDS: POTASSIUM CHLORIDE 40 MEQ/30 ML LIQUID UDC GT SCH (08:22)
[2019-05-02] MEDS: FAMOTIDINE 20 MG TABLET GT SCH ×2 (08:22→20:17)
[2019-05-02] MEDS: HYDROGEN PEROXIDE 3% 118 ML BOTTLE TP SCH ×2 (08:58→21:10)
[2019-05-02 10:53] VITALS: BP 140/68
[2019-05-02] MEDS: ACIDOPHILUS/BULGARICUS CHEW TAB GT SCH (20:16)
[2019-05-02] MEDS: ASCORBIC ACID 500 MG TABLET PO SCH (20:17)
[2019-05-02 21:47] VITALS: BP 130/85
--- NOTE | 2019-05-02 23:45 | NUR ---
Patient is sleeping, connected to vent, ventilator working properly, no signs of any distress, hourly rounding between the staff to check on patient RE: patient's concern about room mate's mother closing the door, door was open at all times, and patient was sleeping comfortably.
[2019-05-03] MEDS: POLYVINYL ALCOHOL OPHT DROPS 15 ML BOTTLE EACHEYE SCH ×3 (05:34→21:49)
[2019-05-03] MEDS: ARGININE/GLUTAMINE/CALCIUM BMB 1 EACH POWD.PACK GT SCH ×2 (05:34→18:24)
[2019-05-03] MEDS: PROTEIN SUPPLEMENT (PROSTAT) 30 ML LIQUID GT SCH ×3 (05:34→21:49)
[2019-05-03] MEDS: GLUCERNA 1.2 1000ML LIQUID GT PRN (06:14)
--- NOTE | 2019-05-03 06:30 | NUR ---
Patient's cintron catheter when she coughed, re-inserted, patient tolerated procedure well, no hematuria noted, good jaswant care rendered, cintron catheter draining well to yellow urine output, kept clean and comfortable.
[2019-05-03] MEDS: levETIRAcetam 500 MG/5 ML LIQUID UDC GT SCH ×2 (08:45→20:29)
[2019-05-03] MEDS: DIGOXIN 125 MCG TABLET GT SCH (08:46)
[2019-05-03] MEDS: FAMOTIDINE 20 MG TABLET GT SCH ×2 (08:47→20:29)
[2019-05-03] MEDS: Z GUARD REMEDY PASTE 57 GM TUBE TOP SCH ×2 (08:47→20:30)
[2019-05-03] MEDS: POTASSIUM CHLORIDE 40 MEQ/30 ML LIQUID UDC GT SCH (08:47)
[2019-05-03] MEDS: ACETAMINOPHEN 650 MG/20 ML UDC- SA PATIENTS-PAIN ONLY GT PRN (08:48)
[2019-05-03] MEDS: HYDROGEN PEROXIDE 3% 118 ML BOTTLE TP SCH ×2 (09:00→21:00)
[2019-05-03 10:36] VITALS: BP 136/69
[2019-05-03] MEDS: ASCORBIC ACID 500 MG TABLET PO SCH (20:28)
[2019-05-03] MEDS: ACIDOPHILUS/BULGARICUS CHEW TAB GT SCH (20:30)
[2019-05-03 22:31] VITALS: BP 120/62
--- NOTE | 2019-05-03 23:55 | NUR ---
Patient is sleeping comfortably, connected to vent, no signs of any respiratory distress noted, rounds done at intervals, door is opened, turned and repositioned, kept clean and comfortable, will continue monitor.
[2019-05-04] MEDS: ARGININE/GLUTAMINE/CALCIUM BMB 1 EACH POWD.PACK GT SCH ×2 (05:16→18:11)
[2019-05-04] MEDS: GLUCERNA 1.2 1000ML LIQUID GT PRN (05:16)
[2019-05-04] MEDS: PROTEIN SUPPLEMENT (PROSTAT) 30 ML LIQUID GT SCH ×3 (05:16→22:26)
[2019-05-04] MEDS: POLYVINYL ALCOHOL OPHT DROPS 15 ML BOTTLE EACHEYE SCH ×3 (05:16→22:26)
[2019-05-04] MEDS: levETIRAcetam 500 MG/5 ML LIQUID UDC GT SCH ×2 (08:40→20:34)
[2019-05-04] MEDS: FAMOTIDINE 20 MG TABLET GT SCH ×2 (08:41→20:34)
[2019-05-04] MEDS: DIGOXIN 125 MCG TABLET GT SCH (08:41)
[2019-05-04] MEDS: Z GUARD REMEDY PASTE 57 GM TUBE TOP SCH ×3 (08:41→20:35)
[2019-05-04] MEDS: POTASSIUM CHLORIDE 40 MEQ/30 ML LIQUID UDC GT SCH (08:41)
[2019-05-04] MEDS: HYDROGEN PEROXIDE 3% 118 ML BOTTLE TP SCH ×2 (09:00→21:48)
[2019-05-04 11:08] VITALS: BP 117/60
[2019-05-04] MEDS: ACIDOPHILUS/BULGARICUS CHEW TAB GT SCH (20:34)
[2019-05-04] MEDS: ASCORBIC ACID 500 MG TABLET PO SCH (20:34)
[2019-05-04] MEDS: CLOTRIMAZOLE 1% CREAM 30 GM TUBE TP SCH (20:35)
[2019-05-04 22:09] VITALS: BP 136/60
[2019-05-05] MEDS: POLYVINYL ALCOHOL OPHT DROPS 15 ML BOTTLE EACHEYE SCH ×3 (05:16→22:04)
[2019-05-05] MEDS: GLUCERNA 1.2 1000ML LIQUID GT PRN (05:16)
[2019-05-05] MEDS: ARGININE/GLUTAMINE/CALCIUM BMB 1 EACH POWD.PACK GT SCH ×2 (05:16→17:18)
[2019-05-05] MEDS: PROTEIN SUPPLEMENT (PROSTAT) 30 ML LIQUID GT SCH ×3 (05:16→22:04)
[2019-05-05] MEDS: levETIRAcetam 500 MG/5 ML LIQUID UDC GT SCH ×2 (08:17→20:46)
[2019-05-05] MEDS: POTASSIUM CHLORIDE 40 MEQ/30 ML LIQUID UDC GT SCH (08:18)
[2019-05-05] MEDS: FAMOTIDINE 20 MG TABLET GT SCH ×2 (08:18→20:44)
[2019-05-05] MEDS: DIGOXIN 125 MCG TABLET GT SCH (08:18)
[2019-05-05] MEDS: CLOTRIMAZOLE 1% CREAM 30 GM TUBE TP SCH ×2 (08:19→20:45)
[2019-05-05] MEDS: Z GUARD REMEDY PASTE 57 GM TUBE TOP SCH ×4 (08:19→20:45)
[2019-05-05] MEDS: HYDROGEN PEROXIDE 3% 118 ML BOTTLE TP SCH ×2 (09:00→21:28)
[2019-05-05 11:10] VITALS: BP 111/78
--- NOTE | 2019-05-05 20:30 | NUR ---
Pt received on HT-50 ventilator with the following settings of AC-12, Vt-550, PEEP+5, FIO2-30%, trached with Shiley#6 DCT trach, which is in the place and secure. No distress noted. Airway care done, pt responded to physical stimuli. HME changed. Resus. bag and back up trach at bedside. Vent and alarms checked and reset.
[2019-05-05] MEDS: ACIDOPHILUS/BULGARICUS CHEW TAB GT SCH (20:44)
[2019-05-05] MEDS: ASCORBIC ACID 500 MG TABLET PO SCH (20:44)
[2019-05-05 22:23] VITALS: BP 125/71
[2019-05-06] MEDS: GLUCERNA 1.2 1000ML LIQUID GT PRN (05:43)
[2019-05-06] MEDS: POLYVINYL ALCOHOL OPHT DROPS 15 ML BOTTLE EACHEYE SCH ×3 (05:43→21:51)
[2019-05-06] MEDS: PROTEIN SUPPLEMENT (PROSTAT) 30 ML LIQUID GT SCH ×3 (05:43→21:51)
[2019-05-06] MEDS: ARGININE/GLUTAMINE/CALCIUM BMB 1 EACH POWD.PACK GT SCH ×2 (05:43→17:54)
--- NOTE | 2019-05-06 07:30 | NUR ---
PT REC'D ON SANDERS VENT TOLERATING CURRENT VENT SETTINGS WELL, NO DISTRESS NOTED GIVEN IN AM REPORT. PT VENT'D VIA TRACHEOSTOMY, TUBE IN PLACE PATENT AND SECURE WITH TRACH TIE. INH NEB TX'S TO BE GIVEN PER MD ORDER AND SXN'ING TO BE DONE NEEDED. VENT ALARMS AUDIBLE, CHECKED AND RESET. BVM AND BACK-UP TRACH AT BEDSIDE.
--- NOTE | 2019-05-06 08:11 | NUR ---
Pharmacy Update from 04/30/19 IDT Meeting VS: Temp 99 BP 122/59 HR 65 LABS: (from 04/20/19) Wbc 3.8 H/H 11.8/36.1 Plt 83 Na 141 K 3.9 Cl 106 CO2 31 BUN/Scr 25/0.5 BS 93 Ca 9.4 Phos 3.9 Mg 2.2 MEDICATION USE REVIEWED: > Pt not on any anti-psych medications > Pt now on Keppra 750mg q12hr since 04/29/19 per neuro; Obese CrCl estimation 87.9 ml/min, renal function ok for current dose. No seizures noted since change > Vimpat d/c'd per neurology 02/21/19 > Pt on famotidine 20mg q12hr, renal fxn ok for dose > Pt on digoxin 125mcg daily since 04/27/18. Last level on 02/04/19 was 0.6 (0.5-2). Within therapeutic range. > Pt on KCl 10meq daily, last K 3.9 PRN MED USAGE: (Dec) Tylenol for pain/temp used x1 MOM used x0 NEW ORDERS NOTED: > Zinc sulfate added 03/31-04/13 > Keppra changed 750mg qam + 1000mg qhs to 750mg q12hr 04/29/19 per neurology Patient was reviewed and discussed in depth with no medication issues noted at this time. No further recommendations per rx at this time as patient remains stable, will continue to monitor for now
[2019-05-06] MEDS: HYDROGEN PEROXIDE 3% 118 ML BOTTLE TP SCH ×2 (08:18→21:19)
[2019-05-06] MEDS: FAMOTIDINE 20 MG TABLET GT SCH ×2 (08:42→20:45)
[2019-05-06] MEDS: POTASSIUM CHLORIDE 40 MEQ/30 ML LIQUID UDC GT SCH (08:42)
[2019-05-06] MEDS: levETIRAcetam 500 MG/5 ML LIQUID UDC GT SCH ×2 (08:42→20:45)
[2019-05-06] MEDS: DIGOXIN 125 MCG TABLET GT SCH (08:42)
[2019-05-06] MEDS: Z GUARD REMEDY PASTE 57 GM TUBE TOP SCH ×4 (08:43→20:46)
[2019-05-06] MEDS: ACETAMINOPHEN 650 MG/20 ML UDC- SA PATIENTS-PAIN ONLY GT PRN (08:44)
[2019-05-06] MEDS: CLOTRIMAZOLE 1% CREAM 30 GM TUBE TP SCH ×2 (08:44→20:46)
--- NOTE | 2019-05-06 12:00 | NUR ---
SEEN AND EXAMINED BY ROOPA Dixon AND DR. OSHEA AND WITH NEW ORDERS CARRIED OUT.
[2019-05-06 14:43] VITALS: BP 132/63
--- NOTE | 2019-05-06 20:24 | NUR ---
Pt received on HT-50 ventilator with the following settings of AC-12, Vt-550, PEEP+5, FIO2-30%, trached with Shiley#6 DCT trach, which is in the place and secure. No SOB noted. Airway care done, pt responded to physical stimuli. HME changed. Resus. bag and back up trach at bedside. Vent and alarms checked and reset.
[2019-05-06] MEDS: ACIDOPHILUS/BULGARICUS CHEW TAB GT SCH (20:45)
[2019-05-06] MEDS: ASCORBIC ACID 500 MG TABLET PO SCH (20:45)
[2019-05-06 22:20] VITALS: BP 154/78
[2019-05-07] MEDS: POLYVINYL ALCOHOL OPHT DROPS 15 ML BOTTLE EACHEYE SCH ×3 (05:06→21:06)
[2019-05-07] MEDS: ARGININE/GLUTAMINE/CALCIUM BMB 1 EACH POWD.PACK GT SCH ×2 (05:06→17:10)
[2019-05-07] MEDS: PROTEIN SUPPLEMENT (PROSTAT) 30 ML LIQUID GT SCH ×3 (05:06→21:06)
[2019-05-07] MEDS: GLUCERNA 1.2 1000ML LIQUID GT PRN (05:07)
[2019-05-07] MEDS: HYDROGEN PEROXIDE 3% 118 ML BOTTLE TP SCH ×2 (08:17→21:17)
[2019-05-07 08:46] LABS: BASOPHILS % (AUTO) 0.6 % (0.0-2.0); EOSINOPHILS # (AUTO) 0.1 K/uL (0.0-0.7); EOSINOPHILS % (AUTO) 2.6 % (0.0-7.0); HEMATOCRIT 37.2 % (31.2-41.9); HEMOGLOBIN 12.2 g/dL (10.9-14.3); LYMPHOCYTES # (AUTO) 1.2 K/uL (20.0-40.0); LYMPHOCYTES % (AUTO) 30.4 % (20.5-51.5); MEAN CORPUSCULAR HEMOGLOBIN 30.4 uug (24.7-32.8); MEAN CORPUSCULAR HGB CONC 33 g/dL (32.3-35.6); MEAN CORPUSCULAR VOLUME 92.7 fL (75.5-95.3); MONOCYTES # (AUTO) 0.4 K/uL (2.0-10.0); MONOCYTES % (AUTO) 9.8 % (0.0-11.0); NEUTROPHILS # (AUTO) 2.1 K/uL (1.8-8.9); NEUTROPHILS % (AUTO) 56.6 % (38.5-71.5); PLATELET COUNT (AUTO) 86 K/uL (179-408); RED BLOOD CELL COUNT(AUTO) 4.01 MIL/uL (3.63-4.92); WHITE BLOOD COUNT (AUTO) 3.8 K/uL (3.8-11.8)
[2019-05-07] MEDS: Z GUARD REMEDY PASTE 57 GM TUBE TOP SCH ×4 (08:52→21:02)
[2019-05-07] MEDS: levETIRAcetam 500 MG/5 ML LIQUID UDC GT SCH ×2 (08:52→21:02)
[2019-05-07] MEDS: POTASSIUM CHLORIDE 40 MEQ/30 ML LIQUID UDC GT SCH (08:52)
[2019-05-07] MEDS: CLOTRIMAZOLE 1% CREAM 30 GM TUBE TP SCH ×2 (08:52→21:03)
[2019-05-07] MEDS: DIGOXIN 125 MCG TABLET GT SCH (08:52)
[2019-05-07] MEDS: FAMOTIDINE 20 MG TABLET GT SCH ×2 (08:52→21:02)
[2019-05-07 08:54] LABS: ALANINE AMINOTRANSFERASE 11 U/L (14-59); ALKALINE PHOSPHATASE 315 U/L (50-136); ASPARTATE AMINOTRANSFERASE 21 U/L (15-37); BILIRUBIN,TOTAL 0.5 mg/dL (0.2-1.0); CARBON DIOXIDE 34 mmol/L (21-32); CHLORIDE 108 mmol/L (98-107); CREATININE 0.5 mg/dL (0.6-1.3); GLUCOSE 104 mg/dL (74-106); MAGNESIUM 2.1 mg/dL (1.8-2.4); PHOSPHOROUS 3.2 mg/dL (2.5-4.9); POTASSIUM 4.2 mmol/L (3.5-5.1); TOTAL PROTEIN, SERUM 7.6 g/dL (6.4-8.2); UREA NITROGEN, BLOOD 42 mg/dL (7-18)
[2019-05-07 09:23] VITALS: BP 122/66
--- NOTE | 2019-05-07 11:00 | NUR ---
Seen and examined by Aylin Quintero,no new orders.
[2019-05-07 20:32] VITALS: BP 152/67
[2019-05-07] MEDS: ACIDOPHILUS/BULGARICUS CHEW TAB GT SCH (21:02)
[2019-05-07] MEDS: ASCORBIC ACID 500 MG TABLET PO SCH (21:02)
--- NOTE | 2019-05-08 01:39 | NUR ---
PT ON CONT HT 50 VENT WITH SHILEY # [address] AND SECURED, WITH SAME CURRENT VENT SETTINGS, GOOD COUGH EFFORT, SUCTIONED LIGHT PALE YELL TINGE SECRETIONS, CHECK CUFF, CHANGE HME, TRACH CARE DONE, PT STABLE.Leif PETERSP Addendum: 05/08/19 at 0140 by CHRISTIE BHATIA RT Amended: Links added.
[2019-05-08] MEDS: POLYVINYL ALCOHOL OPHT DROPS 15 ML BOTTLE EACHEYE SCH ×3 (06:00→21:30)
[2019-05-08] MEDS: PROTEIN SUPPLEMENT (PROSTAT) 30 ML LIQUID GT SCH ×3 (06:01→21:30)
[2019-05-08] MEDS: ARGININE/GLUTAMINE/CALCIUM BMB 1 EACH POWD.PACK GT SCH ×2 (06:01→17:30)
[2019-05-08] MEDS: levETIRAcetam 500 MG/5 ML LIQUID UDC GT SCH ×2 (09:00→21:27)
[2019-05-08] MEDS: HYDROGEN PEROXIDE 3% 118 ML BOTTLE TP SCH ×2 (09:00→21:49)
[2019-05-08] MEDS: FAMOTIDINE 20 MG TABLET GT SCH ×2 (09:01→21:28)
[2019-05-08] MEDS: Z GUARD REMEDY PASTE 57 GM TUBE TOP SCH ×4 (09:01→21:30)
[2019-05-08] MEDS: DIGOXIN 125 MCG TABLET GT SCH (09:01)
[2019-05-08] MEDS: POTASSIUM CHLORIDE 40 MEQ/30 ML LIQUID UDC GT SCH (09:01)
[2019-05-08] MEDS: CLOTRIMAZOLE 1% CREAM 30 GM TUBE TP SCH ×2 (09:01→21:30)
[2019-05-08 11:08] VITALS: BP 145/69
[2019-05-08 20:00] VITALS: BP 144/65
[2019-05-08] MEDS: ACIDOPHILUS/BULGARICUS CHEW TAB GT SCH (21:27)
[2019-05-08] MEDS: ASCORBIC ACID 500 MG TABLET PO SCH (21:29)
[2019-05-09] MEDS: PROTEIN SUPPLEMENT (PROSTAT) 30 ML LIQUID GT SCH ×3 (05:47→22:00)
[2019-05-09] MEDS: ARGININE/GLUTAMINE/CALCIUM BMB 1 EACH POWD.PACK GT SCH ×2 (05:47→17:16)
[2019-05-09] MEDS: POLYVINYL ALCOHOL OPHT DROPS 15 ML BOTTLE EACHEYE SCH ×3 (05:47→22:00)
[2019-05-09] MEDS: HYDROGEN PEROXIDE 3% 118 ML BOTTLE TP SCH ×2 (07:25→21:13)
[2019-05-09 08:00] VITALS: BP 110/62
[2019-05-09] MEDS: levETIRAcetam 500 MG/5 ML LIQUID UDC GT SCH ×2 (08:18→20:29)
[2019-05-09] MEDS: DIGOXIN 125 MCG TABLET GT SCH (08:18)
[2019-05-09] MEDS: POTASSIUM CHLORIDE 40 MEQ/30 ML LIQUID UDC GT SCH (08:18)
[2019-05-09] MEDS: FAMOTIDINE 20 MG TABLET GT SCH ×2 (08:18→20:29)
[2019-05-09] MEDS: Z GUARD REMEDY PASTE 57 GM TUBE TOP SCH ×4 (08:19→20:30)
[2019-05-09] MEDS: CLOTRIMAZOLE 1% CREAM 30 GM TUBE TP SCH ×2 (08:19→20:30)
[2019-05-09] MEDS: GLUCERNA 1.2 1000ML LIQUID GT PRN (18:14)
[2019-05-09 20:00] VITALS: BP 134/59
[2019-05-09] MEDS: ACIDOPHILUS/BULGARICUS CHEW TAB GT SCH (20:29)
[2019-05-09] MEDS: ASCORBIC ACID 500 MG TABLET PO SCH (20:29)
[2019-05-10] MEDS: PROTEIN SUPPLEMENT (PROSTAT) 30 ML LIQUID GT SCH ×3 (05:18→21:13)
[2019-05-10] MEDS: ARGININE/GLUTAMINE/CALCIUM BMB 1 EACH POWD.PACK GT SCH ×2 (05:18→17:40)
[2019-05-10] MEDS: POLYVINYL ALCOHOL OPHT DROPS 15 ML BOTTLE EACHEYE SCH ×3 (05:18→21:13)
[2019-05-10] MEDS: levETIRAcetam 500 MG/5 ML LIQUID UDC GT SCH ×2 (08:26→21:09)
[2019-05-10] MEDS: FAMOTIDINE 20 MG TABLET GT SCH ×2 (08:26→21:10)
[2019-05-10] MEDS: DIGOXIN 125 MCG TABLET GT SCH (08:26)
[2019-05-10] MEDS: CLOTRIMAZOLE 1% CREAM 30 GM TUBE TP SCH ×2 (08:27→21:13)
[2019-05-10] MEDS: POTASSIUM CHLORIDE 40 MEQ/30 ML LIQUID UDC GT SCH (08:27)
[2019-05-10] MEDS: Z GUARD REMEDY PASTE 57 GM TUBE TOP SCH ×4 (08:27→21:13)
[2019-05-10] MEDS: HYDROGEN PEROXIDE 3% 118 ML BOTTLE TP SCH ×2 (09:00→18:37)
[2019-05-10 11:12] VITALS: BP 127/63
[2019-05-10 20:00] VITALS: BP 135/71
[2019-05-10] MEDS: ACIDOPHILUS/BULGARICUS CHEW TAB GT SCH (21:09)
[2019-05-10] MEDS: ASCORBIC ACID 500 MG TABLET PO SCH (21:12)
[2019-05-10] MEDS: GLUCERNA 1.2 1000ML LIQUID GT PRN (23:08)
[2019-05-11] MEDS: POLYVINYL ALCOHOL OPHT DROPS 15 ML BOTTLE EACHEYE SCH ×3 (05:06→21:27)
[2019-05-11] MEDS: PROTEIN SUPPLEMENT (PROSTAT) 30 ML LIQUID GT SCH ×3 (05:06→21:27)
[2019-05-11] MEDS: ARGININE/GLUTAMINE/CALCIUM BMB 1 EACH POWD.PACK GT SCH ×2 (05:06→17:25)
[2019-05-11] MEDS: levETIRAcetam 500 MG/5 ML LIQUID UDC GT SCH ×2 (09:15→21:25)
[2019-05-11] MEDS: DIGOXIN 125 MCG TABLET GT SCH (09:16)
[2019-05-11] MEDS: FAMOTIDINE 20 MG TABLET GT SCH ×2 (09:16→21:26)
[2019-05-11] MEDS: POTASSIUM CHLORIDE 40 MEQ/30 ML LIQUID UDC GT SCH (09:20)
[2019-05-11] MEDS: Z GUARD REMEDY PASTE 57 GM TUBE TOP SCH ×4 (09:20→21:27)
[2019-05-11] MEDS: CLOTRIMAZOLE 1% CREAM 30 GM TUBE TP SCH ×2 (09:20→21:27)
[2019-05-11] MEDS: HYDROGEN PEROXIDE 3% 118 ML BOTTLE TP SCH ×2 (10:10→21:00)
[2019-05-11 11:59] VITALS: BP 143/54
[2019-05-11 20:02] VITALS: BP_SYST 127; BP_SYST 142; BP_DIAS 63; BP_DIAS 66
[2019-05-11] MEDS: ACIDOPHILUS/BULGARICUS CHEW TAB GT SCH (21:25)
[2019-05-11] MEDS: ASCORBIC ACID 500 MG TABLET PO SCH (21:26)
[2019-05-12] MEDS: ARGININE/GLUTAMINE/CALCIUM BMB 1 EACH POWD.PACK GT SCH ×2 (05:27→17:39)
[2019-05-12] MEDS: PROTEIN SUPPLEMENT (PROSTAT) 30 ML LIQUID GT SCH ×3 (05:27→22:29)
[2019-05-12] MEDS: POLYVINYL ALCOHOL OPHT DROPS 15 ML BOTTLE EACHEYE SCH ×3 (05:27→22:29)
[2019-05-12 08:01] VITALS: BP 118/54
[2019-05-12] MEDS: FAMOTIDINE 20 MG TABLET GT SCH ×2 (08:36→20:43)
[2019-05-12] MEDS: POTASSIUM CHLORIDE 40 MEQ/30 ML LIQUID UDC GT SCH (08:36)
[2019-05-12] MEDS: DIGOXIN 125 MCG TABLET GT SCH (08:36)
[2019-05-12] MEDS: levETIRAcetam 500 MG/5 ML LIQUID UDC GT SCH ×2 (08:36→20:41)
[2019-05-12] MEDS: CLOTRIMAZOLE 1% CREAM 30 GM TUBE TP SCH ×2 (08:38→20:44)
[2019-05-12] MEDS: Z GUARD REMEDY PASTE 57 GM TUBE TOP SCH ×4 (08:38→20:43)
[2019-05-12] MEDS: HYDROGEN PEROXIDE 3% 118 ML BOTTLE TP SCH ×2 (10:20→18:33)
[2019-05-12 20:35] VITALS: BP 114/57
[2019-05-12 20:40] VITALS: BP 113/60
[2019-05-12] MEDS: ACIDOPHILUS/BULGARICUS CHEW TAB GT SCH (20:41)
[2019-05-12] MEDS: ASCORBIC ACID 500 MG TABLET PO SCH (20:43)
[2019-05-13] MEDS: GLUCERNA 1.2 1000ML LIQUID GT PRN (05:30)
[2019-05-13] MEDS: PROTEIN SUPPLEMENT (PROSTAT) 30 ML LIQUID GT SCH ×3 (05:34→22:32)
[2019-05-13] MEDS: POLYVINYL ALCOHOL OPHT DROPS 15 ML BOTTLE EACHEYE SCH ×3 (05:34→22:31)
[2019-05-13] MEDS: ARGININE/GLUTAMINE/CALCIUM BMB 1 EACH POWD.PACK GT SCH ×2 (05:34→17:10)
[2019-05-13 06:50] LABS: ALANINE AMINOTRANSFERASE 11 U/L (14-59); ALKALINE PHOSPHATASE 289 U/L (50-136); ASPARTATE AMINOTRANSFERASE 23 U/L (15-37); BILIRUBIN,TOTAL 0.5 mg/dL (0.2-1.0); CARBON DIOXIDE 32 mmol/L (21-32); CHLORIDE 107 mmol/L (98-107); CREATININE 0.5 mg/dL (0.6-1.3); GLUCOSE 99 mg/dL (74-106); POTASSIUM 3.9 mmol/L (3.5-5.1); TOTAL PROTEIN, SERUM 7.7 g/dL (6.4-8.2); UREA NITROGEN, BLOOD 29 mg/dL (7-18)
[2019-05-13 06:57] LABS: BASOPHILS % (AUTO) 0.6 % (0.0-2.0); EOSINOPHILS # (AUTO) 0.1 K/uL (0.0-0.7); EOSINOPHILS % (AUTO) 3.2 % (0.0-7.0); HEMATOCRIT 37.1 % (31.2-41.9); HEMOGLOBIN 12.3 g/dL (10.9-14.3); LYMPHOCYTES # (AUTO) 1.2 K/uL (20.0-40.0); LYMPHOCYTES % (AUTO) 36.8 % (20.5-51.5); MEAN CORPUSCULAR HEMOGLOBIN 30.7 uug (24.7-32.8); MEAN CORPUSCULAR HGB CONC 33 g/dL (32.3-35.6); MEAN CORPUSCULAR VOLUME 92.4 fL (75.5-95.3); MONOCYTES # (AUTO) 0.3 K/uL (2.0-10.0); MONOCYTES % (AUTO) 10.4 % (0.0-11.0); NEUTROPHILS # (AUTO) 1.6 K/uL (1.8-8.9); PLATELET COUNT (AUTO) 76 K/uL (179-408); RED BLOOD CELL COUNT(AUTO) 4.02 MIL/uL (3.63-4.92); WHITE BLOOD COUNT (AUTO) 3.3 K/uL (3.8-11.8)
--- NOTE | 2019-05-13 07:55 | NUR ---
PT RECEIVED ON CONTINUOUS VENT TOLERATING CURRENT VENT SETTINGS WELL, NO DISTRESS NOTED AT THIS TIME. TRACH CARE DONE . TRACH TUBE IN PLACE PATENT AND SECURE WITH TRACH TIE. IN LINE TX'S GIVEN PER MD ORDER . SUCTIONING TO BE DONE NEEDED. VENT ALARMS AUDIBLE, CHECKED AND RESET. AMBU BAG AND BACK-UP TRACH AT BEDSIDE. WILL CONTINUE TO MONITOR.
[2019-05-13 08:00] VITALS: BP 125/53
[2019-05-13] MEDS: FAMOTIDINE 20 MG TABLET GT SCH ×2 (08:42→21:00)
[2019-05-13] MEDS: levETIRAcetam 500 MG/5 ML LIQUID UDC GT SCH ×2 (08:42→21:00)
[2019-05-13] MEDS: DIGOXIN 125 MCG TABLET GT SCH (08:42)
[2019-05-13] MEDS: HYDROGEN PEROXIDE 3% 118 ML BOTTLE TP SCH ×2 (08:42→21:12)
[2019-05-13] MEDS: POTASSIUM CHLORIDE 40 MEQ/30 ML LIQUID UDC GT SCH (08:42)
[2019-05-13] MEDS: Z GUARD REMEDY PASTE 57 GM TUBE TOP SCH ×4 (08:42→21:00)
[2019-05-13] MEDS: CLOTRIMAZOLE 1% CREAM 30 GM TUBE TP SCH ×2 (08:43→21:00)
[2019-05-13 11:19] LABS: BAND % (MANUAL) 3 % (0-10); EOSINOPHILS % (MANUAL) 8 % (0-8); LYMPHOCYTES % (MANUAL) 39 % (20-40); MONOCYTES % (MANUAL) 6 % (2-10); NEUTROPHILS % (MANUAL) 44 % (42-75)
--- NOTE | 2019-05-13 20:00 | NUR ---
VSS 98.2-68-12 BP 124/59. SATS 99%. PATIENT IS NONVERBAL. SHILEY #6 TRACHED TO VENT: AC=12, TL=831, FIO2=30%, PEEP=5. GTUBE INTACT AND PATENT FOR GLUCERNA 1.2 @ 40CCHOUR--RESIDUAL<5CC AND FEEDING CONTINUES. SKIN INTACT. ABDOMEN SOFT THE +BOWEL SOUNDS. INCONTINENT OF BOWEL. INDWELLING CALLES CATH FOR QUANTITY SUFFICIENT OF A CLEAR YELLOW URINE. CONTRACTED ARMS AND LEGS. TURNED Q2 HOUR ATC. PATIENT CARED FOR A TOTAL PATIENT CARE CASE. NO SIGNS OF ACUTE CARDIAC/RESPIRATORY DISTRESS.
[2019-05-13 20:08] VITALS: BP 124/59
[2019-05-13] MEDS: ACIDOPHILUS/BULGARICUS CHEW TAB GT SCH (21:00)
[2019-05-13] MEDS: ASCORBIC ACID 500 MG TABLET PO SCH (21:00)
[2019-05-14] MEDS: POLYVINYL ALCOHOL OPHT DROPS 15 ML BOTTLE EACHEYE SCH ×3 (06:10→21:59)
[2019-05-14] MEDS: PROTEIN SUPPLEMENT (PROSTAT) 30 ML LIQUID GT SCH ×3 (06:12→21:59)
[2019-05-14] MEDS: ARGININE/GLUTAMINE/CALCIUM BMB 1 EACH POWD.PACK GT SCH ×2 (06:12→17:08)
[2019-05-14 08:00] VITALS: BP 117/59
[2019-05-14] MEDS: levETIRAcetam 500 MG/5 ML LIQUID UDC GT SCH ×2 (08:03→21:54)
[2019-05-14] MEDS: FAMOTIDINE 20 MG TABLET GT SCH ×2 (08:05→21:55)
[2019-05-14] MEDS: POTASSIUM CHLORIDE 40 MEQ/30 ML LIQUID UDC GT SCH (08:05)
[2019-05-14] MEDS: DIGOXIN 125 MCG TABLET GT SCH (08:05)
[2019-05-14] MEDS: Z GUARD REMEDY PASTE 57 GM TUBE TOP SCH ×4 (08:06→21:59)
[2019-05-14] MEDS: CLOTRIMAZOLE 1% CREAM 30 GM TUBE TP SCH ×2 (08:07→21:59)
[2019-05-14] MEDS: HYDROGEN PEROXIDE 3% 118 ML BOTTLE TP SCH ×2 (09:00→21:30)
--- NOTE | 2019-05-14 15:04 | NUR ---
Seen and examined by Dr Betancur ,no new orders noted.
[2019-05-14 20:21] VITALS: BP 122/71
[2019-05-14] MEDS: ACIDOPHILUS/BULGARICUS CHEW TAB GT SCH (21:54)
[2019-05-14] MEDS: ASCORBIC ACID 500 MG TABLET PO SCH (21:59)
[2019-05-15] MEDS: ARGININE/GLUTAMINE/CALCIUM BMB 1 EACH POWD.PACK GT SCH ×2 (05:28→18:19)
[2019-05-15] MEDS: POLYVINYL ALCOHOL OPHT DROPS 15 ML BOTTLE EACHEYE SCH ×3 (05:28→21:44)
[2019-05-15] MEDS: PROTEIN SUPPLEMENT (PROSTAT) 30 ML LIQUID GT SCH ×3 (05:28→21:44)
[2019-05-15 08:00] VITALS: BP 136/59
[2019-05-15] MEDS: HYDROGEN PEROXIDE 3% 118 ML BOTTLE TP SCH ×2 (08:35→18:33)
[2019-05-15] MEDS: levETIRAcetam 500 MG/5 ML LIQUID UDC GT SCH ×2 (09:23→21:42)
[2019-05-15] MEDS: POTASSIUM CHLORIDE 40 MEQ/30 ML LIQUID UDC GT SCH (09:24)
[2019-05-15] MEDS: Z GUARD REMEDY PASTE 57 GM TUBE TOP SCH ×4 (09:24→21:44)
[2019-05-15] MEDS: FAMOTIDINE 20 MG TABLET GT SCH ×2 (09:24→21:43)
[2019-05-15] MEDS: DIGOXIN 125 MCG TABLET GT SCH (09:24)
[2019-05-15] MEDS: CLOTRIMAZOLE 1% CREAM 30 GM TUBE TP SCH ×2 (09:25→21:44)
[2019-05-15] MEDS: ACIDOPHILUS/BULGARICUS CHEW TAB GT SCH (21:42)
[2019-05-15] MEDS: ASCORBIC ACID 500 MG TABLET PO SCH (21:43)
[2019-05-15 22:36] VITALS: BP 140/65
[2019-05-16] MEDS: ARGININE/GLUTAMINE/CALCIUM BMB 1 EACH POWD.PACK GT SCH ×2 (05:34→17:48)
[2019-05-16] MEDS: PROTEIN SUPPLEMENT (PROSTAT) 30 ML LIQUID GT SCH ×3 (05:34→21:45)
[2019-05-16] MEDS: POLYVINYL ALCOHOL OPHT DROPS 15 ML BOTTLE EACHEYE SCH ×3 (05:34→21:45)
[2019-05-16] MEDS: HYDROGEN PEROXIDE 3% 118 ML BOTTLE TP SCH ×2 (07:21→21:05)
[2019-05-16] MEDS: levETIRAcetam 500 MG/5 ML LIQUID UDC GT SCH ×2 (08:19→21:43)
[2019-05-16] MEDS: FAMOTIDINE 20 MG TABLET GT SCH ×2 (08:20→21:44)
[2019-05-16] MEDS: DIGOXIN 125 MCG TABLET GT SCH (08:20)
[2019-05-16] MEDS: POTASSIUM CHLORIDE 40 MEQ/30 ML LIQUID UDC GT SCH (08:21)
[2019-05-16] MEDS: Z GUARD REMEDY PASTE 57 GM TUBE TOP SCH ×4 (08:21→21:45)
[2019-05-16] MEDS: CLOTRIMAZOLE 1% CREAM 30 GM TUBE TP SCH ×2 (08:21→21:45)
[2019-05-16 10:47] VITALS: BP 124/64
[2019-05-16 20:06] VITALS: BP 129/59
--- NOTE | 2019-05-16 20:20 | NUR ---
PT RECEIVED ON CONTINUOUS VENT, TRACH TUBE IN PLACE PATENT AND SECURE WITH TRACH TIE. TOLERATING CURRENT VENT SETTINGS WELL, NO DISTRESS NOTED AT THIS TIME. TRACH CARE DONE . IN LINE TX'S GIVEN PER MD ORDER . SUCTION PRN. VENT ALARMS AUDIBLE, CHECKED AND RESET. AMBU BAG AND BACK-UP TRACH AT BEDSIDE. WILL CONTINUE TO MONITOR.
[2019-05-16] MEDS: ACIDOPHILUS/BULGARICUS CHEW TAB GT SCH (21:43)
[2019-05-16] MEDS: ASCORBIC ACID 500 MG TABLET PO SCH (21:45)
[2019-05-17] MEDS: POLYVINYL ALCOHOL OPHT DROPS 15 ML BOTTLE EACHEYE SCH ×3 (05:37→22:49)
[2019-05-17] MEDS: ARGININE/GLUTAMINE/CALCIUM BMB 1 EACH POWD.PACK GT SCH ×2 (05:38→17:18)
[2019-05-17] MEDS: PROTEIN SUPPLEMENT (PROSTAT) 30 ML LIQUID GT SCH ×3 (05:39→22:49)
[2019-05-17] MEDS: levETIRAcetam 500 MG/5 ML LIQUID UDC GT SCH ×2 (08:20→20:12)
[2019-05-17] MEDS: FAMOTIDINE 20 MG TABLET GT SCH ×2 (08:21→20:12)
[2019-05-17] MEDS: DIGOXIN 125 MCG TABLET GT SCH (08:21)
[2019-05-17] MEDS: CLOTRIMAZOLE 1% CREAM 30 GM TUBE TP SCH ×2 (08:22→20:13)
[2019-05-17] MEDS: Z GUARD REMEDY PASTE 57 GM TUBE TOP SCH ×4 (08:22→20:13)
[2019-05-17] MEDS: POTASSIUM CHLORIDE 40 MEQ/30 ML LIQUID UDC GT SCH (08:22)
[2019-05-17] MEDS: HYDROGEN PEROXIDE 3% 118 ML BOTTLE TP SCH ×2 (09:00→21:27)
[2019-05-17 13:42] VITALS: BP 112/83
[2019-05-17] MEDS: ACIDOPHILUS/BULGARICUS CHEW TAB GT SCH (20:12)
[2019-05-17] MEDS: ASCORBIC ACID 500 MG TABLET PO SCH (20:12)
[2019-05-17 22:40] VITALS: BP 133/50
[2019-05-18] MEDS: ARGININE/GLUTAMINE/CALCIUM BMB 1 EACH POWD.PACK GT SCH ×2 (05:30→17:26)
[2019-05-18] MEDS: GLUCERNA 1.2 1000ML LIQUID GT PRN (05:30)
[2019-05-18] MEDS: PROTEIN SUPPLEMENT (PROSTAT) 30 ML LIQUID GT SCH ×3 (05:30→22:12)
[2019-05-18] MEDS: POLYVINYL ALCOHOL OPHT DROPS 15 ML BOTTLE EACHEYE SCH ×3 (05:30→22:12)
[2019-05-18] MEDS: HYDROGEN PEROXIDE 3% 118 ML BOTTLE TP SCH ×2 (08:46→21:11)
[2019-05-18] MEDS: CLOTRIMAZOLE 1% CREAM 30 GM TUBE TP SCH ×2 (09:00→20:24)
[2019-05-18] MEDS: levETIRAcetam 500 MG/5 ML LIQUID UDC GT SCH ×2 (09:00→20:25)
[2019-05-18] MEDS: Z GUARD REMEDY PASTE 57 GM TUBE TOP SCH ×4 (09:00→20:24)
[2019-05-18] MEDS: POTASSIUM CHLORIDE 40 MEQ/30 ML LIQUID UDC GT SCH (09:01)
[2019-05-18] MEDS: DIGOXIN 125 MCG TABLET GT SCH (09:01)
[2019-05-18] MEDS: FAMOTIDINE 20 MG TABLET GT SCH ×2 (09:01→20:21)
[2019-05-18 11:03] VITALS: BP 136/75
[2019-05-18] MEDS: ACIDOPHILUS/BULGARICUS CHEW TAB GT SCH (20:21)
[2019-05-18] MEDS: ASCORBIC ACID 500 MG TABLET PO SCH (20:21)
[2019-05-18 22:58] VITALS: BP 133/68
[2019-05-19] MEDS: POLYVINYL ALCOHOL OPHT DROPS 15 ML BOTTLE EACHEYE SCH ×3 (05:10→21:00)
[2019-05-19] MEDS: ARGININE/GLUTAMINE/CALCIUM BMB 1 EACH POWD.PACK GT SCH ×2 (05:11→17:50)
[2019-05-19] MEDS: PROTEIN SUPPLEMENT (PROSTAT) 30 ML LIQUID GT SCH ×3 (05:11→21:00)
[2019-05-19 08:00] VITALS: BP 113/52
[2019-05-19] MEDS: HYDROGEN PEROXIDE 3% 118 ML BOTTLE TP SCH ×2 (08:27→20:57)
[2019-05-19] MEDS: levETIRAcetam 500 MG/5 ML LIQUID UDC GT SCH ×2 (08:34→20:01)
[2019-05-19] MEDS: DIGOXIN 125 MCG TABLET GT SCH (08:35)
[2019-05-19] MEDS: FAMOTIDINE 20 MG TABLET GT SCH ×2 (08:36→20:01)
[2019-05-19] MEDS: Z GUARD REMEDY PASTE 57 GM TUBE TOP SCH ×4 (08:36→20:01)
[2019-05-19] MEDS: POTASSIUM CHLORIDE 40 MEQ/30 ML LIQUID UDC GT SCH (08:36)
[2019-05-19] MEDS: CLOTRIMAZOLE 1% CREAM 30 GM TUBE TP SCH ×2 (08:37→20:01)
[2019-05-19] MEDS: ACIDOPHILUS/BULGARICUS CHEW TAB GT SCH (20:00)
[2019-05-19] MEDS: ASCORBIC ACID 500 MG TABLET PO SCH (20:01)
[2019-05-19 23:00] VITALS: BP 135/70
[2019-05-20] MEDS: ARGININE/GLUTAMINE/CALCIUM BMB 1 EACH POWD.PACK GT SCH ×2 (05:09→18:01)
[2019-05-20] MEDS: PROTEIN SUPPLEMENT (PROSTAT) 30 ML LIQUID GT SCH ×3 (05:09→21:46)
[2019-05-20] MEDS: POLYVINYL ALCOHOL OPHT DROPS 15 ML BOTTLE EACHEYE SCH ×3 (05:09→21:46)
[2019-05-20 08:00] VITALS: BP 120/63
[2019-05-20] MEDS: levETIRAcetam 500 MG/5 ML LIQUID UDC GT SCH ×2 (08:03→21:44)
[2019-05-20] MEDS: Z GUARD REMEDY PASTE 57 GM TUBE TOP SCH ×4 (08:06→21:46)
[2019-05-20] MEDS: FAMOTIDINE 20 MG TABLET GT SCH ×2 (08:06→21:45)
[2019-05-20] MEDS: POTASSIUM CHLORIDE 40 MEQ/30 ML LIQUID UDC GT SCH (08:06)
[2019-05-20] MEDS: DIGOXIN 125 MCG TABLET GT SCH (08:06)
[2019-05-20] MEDS: CLOTRIMAZOLE 1% CREAM 30 GM TUBE TP SCH ×2 (08:12→21:46)
[2019-05-20] MEDS: HYDROGEN PEROXIDE 3% 118 ML BOTTLE TP SCH ×2 (08:14→20:52)
[2019-05-20 20:02] VITALS: BP 138/64
[2019-05-20] MEDS: ACIDOPHILUS/BULGARICUS CHEW TAB GT SCH (21:44)
[2019-05-20] MEDS: ASCORBIC ACID 500 MG TABLET PO SCH (21:45)
--- NOTE | 2019-05-20 21:53 | NUR ---
pt pushed cintron cath out, found in bed, reinserted without difficulty, draining clear yellow urine, tolerated procedure well.
[2019-05-21] MEDS: POLYVINYL ALCOHOL OPHT DROPS 15 ML BOTTLE EACHEYE SCH ×3 (05:36→21:58)
[2019-05-21] MEDS: ARGININE/GLUTAMINE/CALCIUM BMB 1 EACH POWD.PACK GT SCH ×2 (05:36→17:30)
[2019-05-21] MEDS: PROTEIN SUPPLEMENT (PROSTAT) 30 ML LIQUID GT SCH ×3 (05:37→21:58)
[2019-05-21] MEDS: levETIRAcetam 500 MG/5 ML LIQUID UDC GT SCH ×2 (08:08→21:31)
[2019-05-21] MEDS: DIGOXIN 125 MCG TABLET GT SCH (08:08)
[2019-05-21] MEDS: FAMOTIDINE 20 MG TABLET GT SCH ×2 (08:08→21:57)
[2019-05-21] MEDS: POTASSIUM CHLORIDE 40 MEQ/30 ML LIQUID UDC GT SCH (08:08)
[2019-05-21] MEDS: Z GUARD REMEDY PASTE 57 GM TUBE TOP SCH ×4 (08:08→21:58)
[2019-05-21] MEDS: CLOTRIMAZOLE 1% CREAM 30 GM TUBE TP SCH ×2 (08:08→21:58)
[2019-05-21 08:30] VITALS: BP 122/61
[2019-05-21] MEDS: HYDROGEN PEROXIDE 3% 118 ML BOTTLE TP SCH ×2 (09:05→21:06)
[2019-05-21] MEDS: GLUCERNA 1.2 1000ML LIQUID GT PRN (17:30)
[2019-05-21 20:40] VITALS: BP 117/64
[2019-05-21] MEDS: ACIDOPHILUS/BULGARICUS CHEW TAB GT SCH (21:30)
[2019-05-21] MEDS: ASCORBIC ACID 500 MG TABLET PO SCH (21:57)
[2019-05-22] MEDS: POLYVINYL ALCOHOL OPHT DROPS 15 ML BOTTLE EACHEYE SCH ×3 (05:42→21:03)
[2019-05-22] MEDS: PROTEIN SUPPLEMENT (PROSTAT) 30 ML LIQUID GT SCH ×3 (05:43→21:03)
[2019-05-22] MEDS: ARGININE/GLUTAMINE/CALCIUM BMB 1 EACH POWD.PACK GT SCH ×2 (05:43→18:38)
[2019-05-22 08:00] VITALS: BP 117/60
[2019-05-22] MEDS: FAMOTIDINE 20 MG TABLET GT SCH ×2 (08:54→21:02)
[2019-05-22] MEDS: levETIRAcetam 500 MG/5 ML LIQUID UDC GT SCH ×2 (08:54→21:02)
[2019-05-22] MEDS: Z GUARD REMEDY PASTE 57 GM TUBE TOP SCH ×4 (08:54→21:02)
[2019-05-22] MEDS: POTASSIUM CHLORIDE 40 MEQ/30 ML LIQUID UDC GT SCH (08:54)
[2019-05-22] MEDS: CLOTRIMAZOLE 1% CREAM 30 GM TUBE TP SCH ×2 (08:55→21:03)
[2019-05-22] MEDS: DIGOXIN 125 MCG TABLET GT SCH (08:55)
[2019-05-22] MEDS: HYDROGEN PEROXIDE 3% 118 ML BOTTLE TP SCH ×2 (09:45→21:03)
--- NOTE | 2019-05-22 17:00 | NUR ---
Spoke to Sal pt's daughter regarding the waiting list for a private room,offered Room 422 private room available at this time,Sal stated she want's her mother to stay in the same room at this time.[address].
--- NOTE | 2019-05-22 20:00 | NUR ---
VSS 98.3-65-12 BP 125/57. SATS 98%. COLOR FAIR. PATIENT SEEMS TO STARE INTO SPACE AND DOESN'T OBEY COMMANDS AT THIS TIME. ASSESSMENT IS ONGOING. PATIENT IS TRACHED TO VENT: AC=12, ER=460, FIO2=30%, PEEP=5. GTUBE INTACT AND PATENT FOR GLUCERNA 1.2 @ 40 CC/HOUR. INDWELLING CALLES CATH FOR QUANTITY SUFFICIENT OF A CLEAR YELLOW URINE. MEPILEX DRESSING TO SACRAL DEBUBITUS STAGE 11. NO ACTIVE ROM NOTED AT THIS TIME BUT ASSESSMENT IS ONGOIN. NO SIGNS OF DISTRESS.
[2019-05-22 20:45] VITALS: BP 125/57
[2019-05-22] MEDS: ASCORBIC ACID 500 MG TABLET PO SCH (21:02)
[2019-05-22] MEDS: ACIDOPHILUS/BULGARICUS CHEW TAB GT SCH (21:02)
--- NOTE | 2019-05-22 21:27 | NUR ---
Trached resident endorsed on CMV with ordered vent settings. No signs of respiratory distress noted. Airway is patent and secure @ midline. Suctioned small amounts of pale white secretions without complications. Alarms are on/audible.
[2019-05-23] MEDS: PROTEIN SUPPLEMENT (PROSTAT) 30 ML LIQUID GT SCH ×3 (05:48→22:00)
[2019-05-23] MEDS: ARGININE/GLUTAMINE/CALCIUM BMB 1 EACH POWD.PACK GT SCH ×2 (05:48→18:12)
[2019-05-23] MEDS: POLYVINYL ALCOHOL OPHT DROPS 15 ML BOTTLE EACHEYE SCH ×3 (05:48→22:00)
[2019-05-23 08:00] VITALS: BP 125/62
[2019-05-23] MEDS: levETIRAcetam 500 MG/5 ML LIQUID UDC GT SCH ×2 (08:44→20:52)
[2019-05-23] MEDS: FAMOTIDINE 20 MG TABLET GT SCH ×2 (08:45→20:53)
[2019-05-23] MEDS: POTASSIUM CHLORIDE 40 MEQ/30 ML LIQUID UDC GT SCH (08:45)
[2019-05-23] MEDS: DIGOXIN 125 MCG TABLET GT SCH (08:45)
[2019-05-23] MEDS: Z GUARD REMEDY PASTE 57 GM TUBE TOP SCH ×4 (08:46→20:53)
[2019-05-23] MEDS: CLOTRIMAZOLE 1% CREAM 30 GM TUBE TP SCH ×2 (08:46→20:53)
[2019-05-23] MEDS: HYDROGEN PEROXIDE 3% 118 ML BOTTLE TP SCH ×2 (09:52→21:21)
[2019-05-23 20:03] VITALS: BP 116/63
--- NOTE | 2019-05-23 20:10 | NUR ---
PT RECEIVED ON CONTINUOUS VENT, TRACH TUBE IN PLACE PATENT AND SECURE WITH TRACH TIE. TOLERATING CURRENT VENT SETTINGS WELL, NO DISTRESS NOTED AT THIS TIME. TRACH CARE DONE . SUCTION PRN. VENT ALARMS AUDIBLE, CHECKED AND RESET. AMBU BAG AND BACK-UP TRACH AT BEDSIDE. WILL CONTINUE TO MONITOR.
[2019-05-23] MEDS: ACIDOPHILUS/BULGARICUS CHEW TAB GT SCH (20:52)
[2019-05-23] MEDS: ASCORBIC ACID 500 MG TABLET PO SCH (20:53)
[2019-05-24] MEDS: GLUCERNA 1.2 1000ML LIQUID GT PRN (00:55)
[2019-05-24] MEDS: PROTEIN SUPPLEMENT (PROSTAT) 30 ML LIQUID GT SCH ×3 (05:41→22:00)
[2019-05-24] MEDS: POLYVINYL ALCOHOL OPHT DROPS 15 ML BOTTLE EACHEYE SCH ×3 (05:41→22:00)
[2019-05-24] MEDS: ARGININE/GLUTAMINE/CALCIUM BMB 1 EACH POWD.PACK GT SCH ×2 (05:41→17:04)
[2019-05-24 08:00] VITALS: BP 115/61
[2019-05-24] MEDS: HYDROGEN PEROXIDE 3% 118 ML BOTTLE TP SCH ×2 (08:07→21:00)
[2019-05-24] MEDS: levETIRAcetam 500 MG/5 ML LIQUID UDC GT SCH ×2 (08:30→20:45)
[2019-05-24] MEDS: FAMOTIDINE 20 MG TABLET GT SCH ×2 (08:31→20:45)
[2019-05-24] MEDS: DIGOXIN 125 MCG TABLET GT SCH (08:31)
[2019-05-24] MEDS: POTASSIUM CHLORIDE 40 MEQ/30 ML LIQUID UDC GT SCH (08:31)
[2019-05-24] MEDS: CLOTRIMAZOLE 1% CREAM 30 GM TUBE TP SCH ×2 (08:32→20:45)
[2019-05-24] MEDS: Z GUARD REMEDY PASTE 57 GM TUBE TOP SCH ×4 (08:32→20:45)
[2019-05-24 20:10] VITALS: BP 121/55
[2019-05-24] MEDS: ACIDOPHILUS/BULGARICUS CHEW TAB GT SCH (20:44)
[2019-05-24] MEDS: ASCORBIC ACID 500 MG TABLET PO SCH (20:45)
--- NOTE | 2019-05-25 00:32 | NUR ---
Resident endorsed on HT50 vent with ordered vent settings. No signs of respiratory distress noted. Airway is patent and secure @ midline. Suctioned small amounts of pale white secretions without complications. Alarms are on/audible.
[2019-05-25] MEDS: PROTEIN SUPPLEMENT (PROSTAT) 30 ML LIQUID GT SCH ×3 (05:39→22:08)
[2019-05-25] MEDS: ARGININE/GLUTAMINE/CALCIUM BMB 1 EACH POWD.PACK GT SCH ×2 (05:39→17:38)
[2019-05-25] MEDS: POLYVINYL ALCOHOL OPHT DROPS 15 ML BOTTLE EACHEYE SCH ×3 (05:39→22:08)
[2019-05-25] MEDS: GLUCERNA 1.2 1000ML LIQUID GT PRN (05:39)
[2019-05-25] MEDS: HYDROGEN PEROXIDE 3% 118 ML BOTTLE TP SCH ×2 (07:25→21:10)
[2019-05-25 08:06] VITALS: BP 122/56
[2019-05-25] MEDS: levETIRAcetam 500 MG/5 ML LIQUID UDC GT SCH ×2 (08:27→20:19)
[2019-05-25] MEDS: DIGOXIN 125 MCG TABLET GT SCH (08:28)
[2019-05-25] MEDS: FAMOTIDINE 20 MG TABLET GT SCH ×2 (08:28→20:19)
[2019-05-25] MEDS: CLOTRIMAZOLE 1% CREAM 30 GM TUBE TP SCH ×2 (08:28→20:20)
[2019-05-25] MEDS: POTASSIUM CHLORIDE 40 MEQ/30 ML LIQUID UDC GT SCH (08:28)
[2019-05-25] MEDS: Z GUARD REMEDY PASTE 57 GM TUBE TOP SCH ×4 (08:28→20:20)
[2019-05-25 20:17] VITALS: BP 138/74
[2019-05-25] MEDS: ACIDOPHILUS/BULGARICUS CHEW TAB GT SCH (20:19)
[2019-05-25] MEDS: ASCORBIC ACID 500 MG TABLET PO SCH (20:19)
[2019-05-26] MEDS: GLUCERNA 1.2 1000ML LIQUID GT PRN (06:00)
[2019-05-26] MEDS: PROTEIN SUPPLEMENT (PROSTAT) 30 ML LIQUID GT SCH ×3 (06:07→22:00)
[2019-05-26] MEDS: ARGININE/GLUTAMINE/CALCIUM BMB 1 EACH POWD.PACK GT SCH ×2 (06:07→17:40)
[2019-05-26] MEDS: POLYVINYL ALCOHOL OPHT DROPS 15 ML BOTTLE EACHEYE SCH ×3 (06:07→22:00)
[2019-05-26] MEDS: HYDROGEN PEROXIDE 3% 118 ML BOTTLE TP SCH ×2 (07:20→18:38)
[2019-05-26 08:01] VITALS: BP 119/58
[2019-05-26] MEDS: levETIRAcetam 500 MG/5 ML LIQUID UDC GT SCH ×2 (08:51→20:12)
[2019-05-26] MEDS: FAMOTIDINE 20 MG TABLET GT SCH ×2 (08:52→20:12)
[2019-05-26] MEDS: Z GUARD REMEDY PASTE 57 GM TUBE TOP SCH ×4 (08:52→20:13)
[2019-05-26] MEDS: DIGOXIN 125 MCG TABLET GT SCH (08:52)
[2019-05-26] MEDS: POTASSIUM CHLORIDE 40 MEQ/30 ML LIQUID UDC GT SCH (08:52)
[2019-05-26] MEDS: CLOTRIMAZOLE 1% CREAM 30 GM TUBE TP SCH ×2 (08:53→20:13)
[2019-05-26] MEDS: ACIDOPHILUS/BULGARICUS CHEW TAB GT SCH (20:12)
[2019-05-26] MEDS: ASCORBIC ACID 500 MG TABLET PO SCH (20:13)
[2019-05-26 20:42] VITALS: BP 131/74
[2019-05-27] MEDS: PROTEIN SUPPLEMENT (PROSTAT) 30 ML LIQUID GT SCH ×3 (05:19→21:47)
[2019-05-27] MEDS: ARGININE/GLUTAMINE/CALCIUM BMB 1 EACH POWD.PACK GT SCH ×2 (05:19→17:13)
[2019-05-27] MEDS: POLYVINYL ALCOHOL OPHT DROPS 15 ML BOTTLE EACHEYE SCH ×3 (05:19→21:47)
[2019-05-27] MEDS: GLUCERNA 1.2 1000ML LIQUID GT PRN (05:19)
--- NOTE | 2019-05-27 05:43 | NUR ---
Pt has bloody secretions,Lavage done,with some help.
[2019-05-27 08:04] VITALS: BP 109/56
[2019-05-27] MEDS: levETIRAcetam 500 MG/5 ML LIQUID UDC GT SCH ×2 (08:53→20:04)
[2019-05-27] MEDS: POTASSIUM CHLORIDE 40 MEQ/30 ML LIQUID UDC GT SCH (08:54)
[2019-05-27] MEDS: FAMOTIDINE 20 MG TABLET GT SCH ×2 (08:54→20:04)
[2019-05-27] MEDS: DIGOXIN 125 MCG TABLET GT SCH (08:54)
[2019-05-27] MEDS: CLOTRIMAZOLE 1% CREAM 30 GM TUBE TP SCH ×2 (08:55→20:05)
[2019-05-27] MEDS: Z GUARD REMEDY PASTE 57 GM TUBE TOP SCH ×4 (08:55→20:05)
[2019-05-27] MEDS: HYDROGEN PEROXIDE 3% 118 ML BOTTLE TP SCH ×2 (09:42→20:23)
[2019-05-27 19:38] VITALS: BP 129/64
[2019-05-27] MEDS: ASCORBIC ACID 500 MG TABLET PO SCH (20:04)
[2019-05-27] MEDS: ACIDOPHILUS/BULGARICUS CHEW TAB GT SCH (20:04)
[2019-05-28] MEDS: PROTEIN SUPPLEMENT (PROSTAT) 30 ML LIQUID GT SCH ×3 (05:51→21:46)
[2019-05-28] MEDS: POLYVINYL ALCOHOL OPHT DROPS 15 ML BOTTLE EACHEYE SCH ×3 (05:51→21:46)
[2019-05-28] MEDS: ARGININE/GLUTAMINE/CALCIUM BMB 1 EACH POWD.PACK GT SCH ×2 (05:51→17:37)
[2019-05-28] MEDS: GLUCERNA 1.2 1000ML LIQUID GT PRN (05:52)
[2019-05-28 07:51] LABS: EOSINOPHILS # (AUTO) 0.2 K/uL (0.0-0.7); HEMOGLOBIN 12.2 g/dL (10.9-14.3); MONOCYTES # (AUTO) 0.5 K/uL (2.0-10.0); MONOCYTES % (AUTO) 10.4 % (0.0-11.0)
[2019-05-28 07:59] LABS: CARBON DIOXIDE 36 mmol/L (21-32); CHLORIDE 108 mmol/L (98-107); CREATININE 0.5 mg/dL (0.6-1.3); GLUCOSE 115 mg/dL (74-106); MAGNESIUM 2.2 mg/dL (1.8-2.4); PHOSPHOROUS 3.3 mg/dL (2.5-4.9); POTASSIUM 3.9 mmol/L (3.5-5.1); UREA NITROGEN, BLOOD 39 mg/dL (7-18)
[2019-05-28 08:04] VITALS: BP 117/67
[2019-05-28 08:17] LABS: BASOPHILS % (AUTO) 0.6 % (0.0-2.0); EOSINOPHILS % (AUTO) 5.1 % (0.0-7.0); HEMATOCRIT 37.7 % (31.2-41.9); LYMPHOCYTES # (AUTO) 1.3 K/uL (20.0-40.0); MEAN CORPUSCULAR HEMOGLOBIN 30.1 uug (24.7-32.8); MEAN CORPUSCULAR HGB CONC 32 g/dL (32.3-35.6); MEAN CORPUSCULAR VOLUME 92.7 fL (75.5-95.3); NEUTROPHILS # (AUTO) 2.6 K/uL (1.8-8.9); NEUTROPHILS % (AUTO) 56.9 % (38.5-71.5); PLATELET COUNT (AUTO) 72 K/uL (179-408); RED BLOOD CELL COUNT(AUTO) 4.06 MIL/uL (3.63-4.92)
[2019-05-28 08:18] LABS: WHITE BLOOD COUNT (AUTO) 4.6 K/uL (3.8-11.8)
[2019-05-28] MEDS: DIGOXIN 125 MCG TABLET GT SCH (08:46)
[2019-05-28] MEDS: FAMOTIDINE 20 MG TABLET GT SCH ×2 (08:46→21:45)
[2019-05-28] MEDS: Z GUARD REMEDY PASTE 57 GM TUBE TOP SCH ×4 (08:46→21:46)
[2019-05-28] MEDS: levETIRAcetam 500 MG/5 ML LIQUID UDC GT SCH ×2 (08:46→21:42)
[2019-05-28] MEDS: CLOTRIMAZOLE 1% CREAM 30 GM TUBE TP SCH ×2 (08:46→21:46)
[2019-05-28] MEDS: POTASSIUM CHLORIDE 40 MEQ/30 ML LIQUID UDC GT SCH (08:46)
[2019-05-28] MEDS: HYDROGEN PEROXIDE 3% 118 ML BOTTLE TP SCH ×2 (09:00→21:04)
--- NOTE | 2019-05-28 13:33 | NUR ---
INTERDISCIPLINARY PLAN OF CARE CONFERENCE was held today. Patient's daughter Sheeba was unable to attend the meeting. Dr. Murguia and the Interdisciplinary Team reviewed the current plan of care in detail. RN reported on patient's current medical condition. No major changes were reported in patient's condition. See RN IDT conference notes. See also all other disciplines IDT notes and physician's progress notes for additional details.
--- NOTE | 2019-05-28 14:08 | NUR ---
Pharmacy Update from 05/28/19 IDT Meeting VS: Temp 98.1 BP 117/67 HR 67 LABS: (from 05/28/19) Wbc 4.6 H/H 12.2/37.7 Plt 72 Na 145 K 3.9 Cl 108 CO2 36 BUN/Scr 39/0.5 BS 115 Ca 9.5 Phos 3.3 Mg 2.2 MEDICATION USE REVIEWED: > Pt not on any anti-psych medications > Pt now on Keppra 750mg q12hr since 04/29/19 per neuro; Obese CrCl estimation 87.9 ml/min, renal function ok for current dose. No seizures noted > Pt on famotidine 20mg q12hr, renal fxn ok for dose > Pt on digoxin 125mcg daily since 04/27/18. Last level on 02/04/19 was 0.6 (0.5-2). Within therapeutic range. > Pt on KCl 10meq daily, last K 3.9 PRN MED USAGE: (Apr) Tylenol for pain/temp used x7 MOM used x0 NEW ORDERS NOTED: > NA Patient was reviewed and discussed in depth with no medication issues noted at this time. No further recommendations per rx at this time as patient remains stable, will continue to monitor for now
[2019-05-28 15:30] LABS: BAND % (MANUAL) 2 % (0-10); LYMPHOCYTES % (MANUAL) 26 % (20-40); NEUTROPHILS % (MANUAL) 60 % (42-75)
[2019-05-28 15:31] LABS: EOSINOPHILS % (MANUAL) 5 % (0-8); MONOCYTES % (MANUAL) 7 % (2-10)
[2019-05-28 19:44] VITALS: BP 128/68
[2019-05-28] MEDS: ACIDOPHILUS/BULGARICUS CHEW TAB GT SCH (21:42)
[2019-05-28] MEDS: ASCORBIC ACID 500 MG TABLET PO SCH (21:45)
[2019-05-29] MEDS: PROTEIN SUPPLEMENT (PROSTAT) 30 ML LIQUID GT SCH ×3 (05:24→21:46)
[2019-05-29] MEDS: ARGININE/GLUTAMINE/CALCIUM BMB 1 EACH POWD.PACK GT SCH ×2 (05:24→17:18)
[2019-05-29] MEDS: POLYVINYL ALCOHOL OPHT DROPS 15 ML BOTTLE EACHEYE SCH ×3 (05:24→21:46)
[2019-05-29 07:08] LABS: BASOPHILS % (AUTO) 0.9 % (0.0-2.0); EOSINOPHILS # (AUTO) 0.2 K/uL (0.0-0.7); EOSINOPHILS % (AUTO) 5.4 % (0.0-7.0); HEMATOCRIT 38.3 % (31.2-41.9); HEMOGLOBIN 12.6 g/dL (10.9-14.3); LYMPHOCYTES # (AUTO) 1.3 K/uL (20.0-40.0); LYMPHOCYTES % (AUTO) 33.3 % (20.5-51.5); MEAN CORPUSCULAR HEMOGLOBIN 30.3 uug (24.7-32.8); MEAN CORPUSCULAR HGB CONC 33 g/dL (32.3-35.6); MEAN CORPUSCULAR VOLUME 92.1 fL (75.5-95.3); MONOCYTES # (AUTO) 0.4 K/uL (2.0-10.0); NEUTROPHILS % (AUTO) 51.4 % (38.5-71.5); PLATELET COUNT (AUTO) 79 K/uL (179-408); RED BLOOD CELL COUNT(AUTO) 4.16 MIL/uL (3.63-4.92); WHITE BLOOD COUNT (AUTO) 3.9 K/uL (3.8-11.8)
[2019-05-29 07:20] LABS: ALANINE AMINOTRANSFERASE 13 U/L (14-59); ALKALINE PHOSPHATASE 327 U/L (50-136); ASPARTATE AMINOTRANSFERASE 26 U/L (15-37); BILIRUBIN,TOTAL 0.7 mg/dL (0.2-1.0); CARBON DIOXIDE 32 mmol/L (21-32); CHLORIDE 108 mmol/L (98-107); CREATININE 0.4 mg/dL (0.6-1.3); GLUCOSE 110 mg/dL (74-106); POTASSIUM 3.7 mmol/L (3.5-5.1); TOTAL PROTEIN, SERUM 8.1 g/dL (6.4-8.2); UREA NITROGEN, BLOOD 37 mg/dL (7-18)
[2019-05-29] MEDS: Z GUARD REMEDY PASTE 57 GM TUBE TOP SCH ×4 (08:09→21:45)
[2019-05-29] MEDS: CLOTRIMAZOLE 1% CREAM 30 GM TUBE TP SCH ×2 (08:10→21:45)
[2019-05-29 08:12] VITALS: BP 124/64
[2019-05-29] MEDS: levETIRAcetam 500 MG/5 ML LIQUID UDC GT SCH ×2 (08:17→21:43)
[2019-05-29] MEDS: HYDROGEN PEROXIDE 3% 118 ML BOTTLE TP SCH ×2 (08:17→18:36)
[2019-05-29] MEDS: POTASSIUM CHLORIDE 40 MEQ/30 ML LIQUID UDC GT SCH (08:19)
[2019-05-29] MEDS: DIGOXIN 125 MCG TABLET GT SCH (08:20)
[2019-05-29] MEDS: FAMOTIDINE 20 MG TABLET GT SCH ×2 (08:21→21:45)
[2019-05-29] MEDS: GLUCERNA 1.2 1000ML LIQUID GT PRN (16:00)
[2019-05-29 19:41] VITALS: BP 119/63
[2019-05-29] MEDS: ACIDOPHILUS/BULGARICUS CHEW TAB GT SCH (21:42)
[2019-05-29] MEDS: ASCORBIC ACID 500 MG TABLET PO SCH (21:45)
[2019-05-30] MEDS: POLYVINYL ALCOHOL OPHT DROPS 15 ML BOTTLE EACHEYE SCH ×3 (05:38→21:57)
[2019-05-30] MEDS: ARGININE/GLUTAMINE/CALCIUM BMB 1 EACH POWD.PACK GT SCH ×2 (05:38→17:17)
[2019-05-30] MEDS: PROTEIN SUPPLEMENT (PROSTAT) 30 ML LIQUID GT SCH ×3 (05:40→21:57)
[2019-05-30 08:06] VITALS: BP 115/61
[2019-05-30] MEDS: DIGOXIN 125 MCG TABLET GT SCH (08:20)
[2019-05-30] MEDS: levETIRAcetam 500 MG/5 ML LIQUID UDC GT SCH ×2 (08:20→21:55)
[2019-05-30] MEDS: FAMOTIDINE 20 MG TABLET GT SCH ×2 (08:21→21:56)
[2019-05-30] MEDS: POTASSIUM CHLORIDE 40 MEQ/30 ML LIQUID UDC GT SCH (08:21)
[2019-05-30] MEDS: Z GUARD REMEDY PASTE 57 GM TUBE TOP SCH ×4 (08:21→21:56)
[2019-05-30] MEDS: CLOTRIMAZOLE 1% CREAM 30 GM TUBE TP SCH ×2 (09:00→21:56)
[2019-05-30] MEDS: HYDROGEN PEROXIDE 3% 118 ML BOTTLE TP SCH ×2 (09:45→21:01)
[2019-05-30] MEDS: GLUCERNA 1.2 1000ML LIQUID GT PRN (17:20)
--- NOTE | 2019-05-30 17:20 | NUR ---
SEEN BY DR. VALLE AND WITH NNO.
[2019-05-30 20:46] VITALS: BP 130/70
[2019-05-30] MEDS: ACIDOPHILUS/BULGARICUS CHEW TAB GT SCH (21:55)
[2019-05-30] MEDS: ASCORBIC ACID 500 MG TABLET PO SCH (21:56)
[2019-05-31] MEDS: POLYVINYL ALCOHOL OPHT DROPS 15 ML BOTTLE EACHEYE SCH ×3 (05:30→21:20)
[2019-05-31] MEDS: PROTEIN SUPPLEMENT (PROSTAT) 30 ML LIQUID GT SCH ×3 (05:30→21:20)
[2019-05-31] MEDS: ARGININE/GLUTAMINE/CALCIUM BMB 1 EACH POWD.PACK GT SCH ×2 (05:30→18:28)
[2019-05-31 08:00] VITALS: BP 121/67
[2019-05-31] MEDS: levETIRAcetam 500 MG/5 ML LIQUID UDC GT SCH ×2 (09:27→21:20)
[2019-05-31] MEDS: FAMOTIDINE 20 MG TABLET GT SCH ×2 (09:27→21:20)
[2019-05-31] MEDS: DIGOXIN 125 MCG TABLET GT SCH (09:27)
[2019-05-31] MEDS: POTASSIUM CHLORIDE 40 MEQ/30 ML LIQUID UDC GT SCH (09:27)
[2019-05-31] MEDS: Z GUARD REMEDY PASTE 57 GM TUBE TOP SCH ×4 (09:28→21:20)
[2019-05-31] MEDS: CLOTRIMAZOLE 1% CREAM 30 GM TUBE TP SCH ×2 (09:28→21:20)
[2019-05-31] MEDS: HYDROGEN PEROXIDE 3% 118 ML BOTTLE TP SCH ×2 (09:54→21:29)
[2019-05-31] MEDS: GLUCERNA 1.2 1000ML LIQUID GT PRN (18:05)
[2019-05-31 20:39] VITALS: BP 129/67
[2019-05-31] MEDS: ACIDOPHILUS/BULGARICUS CHEW TAB GT SCH (21:20)
[2019-05-31] MEDS: ASCORBIC ACID 500 MG TABLET PO SCH (21:20)
[2019-06-01] MEDS: POLYVINYL ALCOHOL OPHT DROPS 15 ML BOTTLE EACHEYE SCH ×3 (05:24→22:00)
[2019-06-01] MEDS: ARGININE/GLUTAMINE/CALCIUM BMB 1 EACH POWD.PACK GT SCH ×2 (05:24→17:19)
[2019-06-01] MEDS: PROTEIN SUPPLEMENT (PROSTAT) 30 ML LIQUID GT SCH ×3 (05:24→22:00)
[2019-06-01 08:00] VITALS: BP 122/56
[2019-06-01] MEDS: FAMOTIDINE 20 MG TABLET GT SCH ×2 (08:57→20:55)
[2019-06-01] MEDS: levETIRAcetam 500 MG/5 ML LIQUID UDC GT SCH ×2 (08:57→20:55)
[2019-06-01] MEDS: DIGOXIN 125 MCG TABLET GT SCH (08:57)
[2019-06-01] MEDS: POTASSIUM CHLORIDE 40 MEQ/30 ML LIQUID UDC GT SCH (08:58)
[2019-06-01] MEDS: Z GUARD REMEDY PASTE 57 GM TUBE TOP SCH ×4 (08:58→20:55)
[2019-06-01] MEDS: CLOTRIMAZOLE 1% CREAM 30 GM TUBE TP SCH ×2 (08:58→20:55)
[2019-06-01] MEDS: HYDROGEN PEROXIDE 3% 118 ML BOTTLE TP SCH ×2 (09:00→20:56)
[2019-06-01] MEDS: GLUCERNA 1.2 1000ML LIQUID GT PRN (17:19)
[2019-06-01 20:47] VITALS: BP 128/68
[2019-06-01] MEDS: ACIDOPHILUS/BULGARICUS CHEW TAB GT SCH (20:54)
[2019-06-01] MEDS: ASCORBIC ACID 500 MG TABLET PO SCH (20:55)
[2019-06-02] MEDS: ARGININE/GLUTAMINE/CALCIUM BMB 1 EACH POWD.PACK GT SCH ×2 (05:40→18:20)
[2019-06-02] MEDS: POLYVINYL ALCOHOL OPHT DROPS 15 ML BOTTLE EACHEYE SCH ×3 (05:40→22:33)
[2019-06-02] MEDS: PROTEIN SUPPLEMENT (PROSTAT) 30 ML LIQUID GT SCH ×3 (05:40→22:33)
[2019-06-02 08:00] VITALS: BP 114/55
[2019-06-02] MEDS: levETIRAcetam 500 MG/5 ML LIQUID UDC GT SCH ×2 (08:35→20:59)
[2019-06-02] MEDS: FAMOTIDINE 20 MG TABLET GT SCH ×2 (08:36→20:59)
[2019-06-02] MEDS: POTASSIUM CHLORIDE 40 MEQ/30 ML LIQUID UDC GT SCH (08:36)
[2019-06-02] MEDS: DIGOXIN 125 MCG TABLET GT SCH (08:36)
[2019-06-02] MEDS: CLOTRIMAZOLE 1% CREAM 30 GM TUBE TP SCH ×2 (08:37→21:00)
[2019-06-02] MEDS: Z GUARD REMEDY PASTE 57 GM TUBE TOP SCH ×4 (08:37→20:59)
[2019-06-02] MEDS: HYDROGEN PEROXIDE 3% 118 ML BOTTLE TP SCH ×2 (09:00→21:38)
[2019-06-02 20:28] VITALS: BP 121/61
[2019-06-02] MEDS: ASCORBIC ACID 500 MG TABLET PO SCH (20:59)
[2019-06-02] MEDS: ACIDOPHILUS/BULGARICUS CHEW TAB GT SCH (20:59)
[2019-06-02] MEDS: GLUCERNA 1.2 1000ML LIQUID GT PRN (21:15)
[2019-06-03] MEDS: POLYVINYL ALCOHOL OPHT DROPS 15 ML BOTTLE EACHEYE SCH ×3 (05:21→21:48)
[2019-06-03] MEDS: ARGININE/GLUTAMINE/CALCIUM BMB 1 EACH POWD.PACK GT SCH ×2 (05:21→17:46)
[2019-06-03] MEDS: PROTEIN SUPPLEMENT (PROSTAT) 30 ML LIQUID GT SCH ×3 (05:21→21:48)
[2019-06-03 08:00] VITALS: BP 128/76
[2019-06-03] MEDS: levETIRAcetam 500 MG/5 ML LIQUID UDC GT SCH ×2 (08:55→20:05)
[2019-06-03] MEDS: FAMOTIDINE 20 MG TABLET GT SCH ×2 (08:56→20:05)
[2019-06-03] MEDS: DIGOXIN 125 MCG TABLET GT SCH (08:56)
[2019-06-03] MEDS: POTASSIUM CHLORIDE 40 MEQ/30 ML LIQUID UDC GT SCH (08:56)
[2019-06-03] MEDS: CLOTRIMAZOLE 1% CREAM 30 GM TUBE TP SCH (08:57)
[2019-06-03] MEDS: Z GUARD REMEDY PASTE 57 GM TUBE TOP SCH ×3 (08:57→20:06)
[2019-06-03] MEDS: HYDROGEN PEROXIDE 3% 118 ML BOTTLE TP SCH ×2 (09:00→20:06)
--- NOTE | 2019-06-03 15:55 | NUR ---
SEEN ANDXAMINED BY ROOPA SOTOMAYORO.
[2019-06-03] MEDS: ACIDOPHILUS/BULGARICUS CHEW TAB GT SCH (20:05)
[2019-06-03] MEDS: ASCORBIC ACID 500 MG TABLET PO SCH (20:06)
--- NOTE | 2019-06-03 20:19 | NUR ---
Received pt on HT-50 ventilator with the following settings of AC-12, Vt-550, PEEP+5, FIO2-30%, trached with Shiley#6 DCT trach, which is in the place and secure. No distress noted. Airway care done, pt responded to physical stimuli. HME changed. Resus. bag and back up trach at bedside. Vent and alarms checked and reset.
[2019-06-03 20:20] VITALS: BP 116/56
[2019-06-04] MEDS: POLYVINYL ALCOHOL OPHT DROPS 15 ML BOTTLE EACHEYE SCH ×3 (05:34→22:00)
[2019-06-04] MEDS: ARGININE/GLUTAMINE/CALCIUM BMB 1 EACH POWD.PACK GT SCH ×2 (05:34→17:32)
[2019-06-04] MEDS: PROTEIN SUPPLEMENT (PROSTAT) 30 ML LIQUID GT SCH ×3 (05:34→22:00)
[2019-06-04] MEDS: levETIRAcetam 500 MG/5 ML LIQUID UDC GT SCH ×2 (09:26→20:41)
[2019-06-04] MEDS: DIGOXIN 125 MCG TABLET GT SCH (09:27)
[2019-06-04] MEDS: FAMOTIDINE 20 MG TABLET GT SCH ×2 (09:28→20:41)
[2019-06-04] MEDS: POTASSIUM CHLORIDE 40 MEQ/30 ML LIQUID UDC GT SCH (09:28)
[2019-06-04] MEDS: Z GUARD REMEDY PASTE 57 GM TUBE TOP SCH ×3 (09:28→20:41)
[2019-06-04] MEDS: HYDROGEN PEROXIDE 3% 118 ML BOTTLE TP SCH ×2 (09:59→21:05)
[2019-06-04 10:52] VITALS: BP 127/64
[2019-06-04 10:54] VITALS: BP 127/64
[2019-06-04 20:00] VITALS: BP 123/59
[2019-06-04] MEDS: CLOTRIMAZOLE 1% CREAM 30 GM TUBE TP SCH (20:41)
[2019-06-04] MEDS: ACIDOPHILUS/BULGARICUS CHEW TAB GT SCH (20:41)
[2019-06-04] MEDS: ASCORBIC ACID 500 MG TABLET PO SCH (20:41)
[2019-06-05] MEDS: GLUCERNA 1.2 1000ML LIQUID GT PRN (05:00)
[2019-06-05] MEDS: ARGININE/GLUTAMINE/CALCIUM BMB 1 EACH POWD.PACK GT SCH ×2 (05:53→17:48)
[2019-06-05] MEDS: POLYVINYL ALCOHOL OPHT DROPS 15 ML BOTTLE EACHEYE SCH ×3 (05:53→21:42)
[2019-06-05] MEDS: PROTEIN SUPPLEMENT (PROSTAT) 30 ML LIQUID GT SCH ×3 (05:54→21:42)
[2019-06-05] MEDS: DIGOXIN 125 MCG TABLET GT SCH (08:47)
[2019-06-05] MEDS: levETIRAcetam 500 MG/5 ML LIQUID UDC GT SCH ×2 (08:47→21:41)
[2019-06-05] MEDS: POTASSIUM CHLORIDE 40 MEQ/30 ML LIQUID UDC GT SCH (08:48)
[2019-06-05] MEDS: CLOTRIMAZOLE 1% CREAM 30 GM TUBE TP SCH ×2 (08:48→21:42)
[2019-06-05] MEDS: Z GUARD REMEDY PASTE 57 GM TUBE TOP SCH ×4 (08:48→21:42)
[2019-06-05] MEDS: FAMOTIDINE 20 MG TABLET GT SCH ×2 (08:48→21:41)
[2019-06-05 09:47] VITALS: BP 116/74
[2019-06-05] MEDS: HYDROGEN PEROXIDE 3% 118 ML BOTTLE TP SCH ×2 (09:52→21:03)
[2019-06-05 20:00] VITALS: BP 128/73
[2019-06-05] MEDS: ACIDOPHILUS/BULGARICUS CHEW TAB GT SCH (21:40)
[2019-06-05] MEDS: ASCORBIC ACID 500 MG TABLET PO SCH (21:41)
[2019-06-06] MEDS: POLYVINYL ALCOHOL OPHT DROPS 15 ML BOTTLE EACHEYE SCH ×3 (05:43→21:35)
[2019-06-06] MEDS: ARGININE/GLUTAMINE/CALCIUM BMB 1 EACH POWD.PACK GT SCH ×2 (05:43→17:14)
[2019-06-06] MEDS: PROTEIN SUPPLEMENT (PROSTAT) 30 ML LIQUID GT SCH ×3 (05:44→21:35)
[2019-06-06] MEDS: HYDROGEN PEROXIDE 3% 118 ML BOTTLE TP SCH ×2 (06:59→21:02)
[2019-06-06 08:00] VITALS: BP 115/53
[2019-06-06] MEDS: levETIRAcetam 500 MG/5 ML LIQUID UDC GT SCH ×2 (08:33→20:11)
[2019-06-06] MEDS: FAMOTIDINE 20 MG TABLET GT SCH ×2 (08:34→20:11)
[2019-06-06] MEDS: DIGOXIN 125 MCG TABLET GT SCH (08:34)
[2019-06-06] MEDS: POTASSIUM CHLORIDE 40 MEQ/30 ML LIQUID UDC GT SCH (08:35)
[2019-06-06] MEDS: Z GUARD REMEDY PASTE 57 GM TUBE TOP SCH ×4 (08:35→20:11)
[2019-06-06] MEDS: CLOTRIMAZOLE 1% CREAM 30 GM TUBE TP SCH ×2 (08:35→20:12)
--- NOTE | 2019-06-06 19:00 | NUR ---
SEEN BY WITH NNO.
[2019-06-06 20:00] VITALS: BP 124/69
[2019-06-06] MEDS: ACIDOPHILUS/BULGARICUS CHEW TAB GT SCH (20:11)
[2019-06-06] MEDS: ASCORBIC ACID 500 MG TABLET PO SCH (20:11)
--- NOTE | 2019-06-06 20:20 | NUR ---
PT RECEIVED ON CONTINUOUS VENT, TRACH TUBE IN PLACE PATENT AND SECURE WITH TRACH TIE. NO DISTRESS NOTED AT THIS TIME. TRACH CARE DONE . SUCTION PRN. VENT ALARMS AUDIBLE, CHECKED AND RESET. AMBU BAG AND BACK-UP TRACH AT BEDSIDE. WILL CONTINUE TO MONITOR.
[2019-06-07] MEDS: ARGININE/GLUTAMINE/CALCIUM BMB 1 EACH POWD.PACK GT SCH ×2 (05:14→17:12)
[2019-06-07] MEDS: POLYVINYL ALCOHOL OPHT DROPS 15 ML BOTTLE EACHEYE SCH ×3 (05:14→21:10)
[2019-06-07] MEDS: PROTEIN SUPPLEMENT (PROSTAT) 30 ML LIQUID GT SCH ×3 (05:15→21:10)
[2019-06-07 08:01] VITALS: BP 120/63
[2019-06-07] MEDS: levETIRAcetam 500 MG/5 ML LIQUID UDC GT SCH ×2 (08:32→21:07)
[2019-06-07] MEDS: Z GUARD REMEDY PASTE 57 GM TUBE TOP SCH ×4 (08:33→21:10)
[2019-06-07] MEDS: FAMOTIDINE 20 MG TABLET GT SCH ×2 (08:33→21:09)
[2019-06-07] MEDS: DIGOXIN 125 MCG TABLET GT SCH (08:33)
[2019-06-07] MEDS: CLOTRIMAZOLE 1% CREAM 30 GM TUBE TP SCH ×2 (08:33→21:10)
[2019-06-07] MEDS: POTASSIUM CHLORIDE 40 MEQ/30 ML LIQUID UDC GT SCH (08:33)
[2019-06-07] MEDS: HYDROGEN PEROXIDE 3% 118 ML BOTTLE TP SCH ×2 (08:35→21:24)
[2019-06-07] MEDS: GLUCERNA 1.2 1000ML LIQUID GT PRN (14:12)
[2019-06-07 20:00] VITALS: BP 127/72
[2019-06-07] MEDS: ACIDOPHILUS/BULGARICUS CHEW TAB GT SCH (21:06)
[2019-06-07] MEDS: ASCORBIC ACID 500 MG TABLET PO SCH (21:10)
[2019-06-08] MEDS: POLYVINYL ALCOHOL OPHT DROPS 15 ML BOTTLE EACHEYE SCH ×3 (05:33→21:42)
[2019-06-08] MEDS: ARGININE/GLUTAMINE/CALCIUM BMB 1 EACH POWD.PACK GT SCH ×2 (05:33→17:31)
[2019-06-08] MEDS: PROTEIN SUPPLEMENT (PROSTAT) 30 ML LIQUID GT SCH ×3 (05:35→21:42)
[2019-06-08 08:01] VITALS: BP 112/67
[2019-06-08] MEDS: DIGOXIN 125 MCG TABLET GT SCH (08:11)
[2019-06-08] MEDS: FAMOTIDINE 20 MG TABLET GT SCH ×2 (08:11→21:42)
[2019-06-08] MEDS: Z GUARD REMEDY PASTE 57 GM TUBE TOP SCH ×4 (08:11→21:42)
[2019-06-08] MEDS: POTASSIUM CHLORIDE 40 MEQ/30 ML LIQUID UDC GT SCH (08:11)
[2019-06-08] MEDS: CLOTRIMAZOLE 1% CREAM 30 GM TUBE TP SCH ×2 (08:11→21:42)
[2019-06-08] MEDS: levETIRAcetam 500 MG/5 ML LIQUID UDC GT SCH ×2 (08:11→21:39)
[2019-06-08] MEDS: HYDROGEN PEROXIDE 3% 118 ML BOTTLE TP SCH ×2 (09:44→18:42)
[2019-06-08] MEDS: GLUCERNA 1.2 1000ML LIQUID GT PRN (18:28)
[2019-06-08 20:36] VITALS: BP 125/68
[2019-06-08] MEDS: ACIDOPHILUS/BULGARICUS CHEW TAB GT SCH (21:39)
[2019-06-08] MEDS: ASCORBIC ACID 500 MG TABLET PO SCH (21:42)
[2019-06-09] MEDS: POLYVINYL ALCOHOL OPHT DROPS 15 ML BOTTLE EACHEYE SCH ×3 (05:52→22:23)
[2019-06-09] MEDS: ARGININE/GLUTAMINE/CALCIUM BMB 1 EACH POWD.PACK GT SCH ×2 (05:53→17:22)
[2019-06-09] MEDS: PROTEIN SUPPLEMENT (PROSTAT) 30 ML LIQUID GT SCH ×3 (05:53→22:23)
[2019-06-09 08:01] VITALS: BP 115/62
[2019-06-09] MEDS: Z GUARD REMEDY PASTE 57 GM TUBE TOP SCH ×4 (08:56→20:13)
[2019-06-09] MEDS: POTASSIUM CHLORIDE 40 MEQ/30 ML LIQUID UDC GT SCH (08:56)
[2019-06-09] MEDS: levETIRAcetam 500 MG/5 ML LIQUID UDC GT SCH ×2 (08:56→20:13)
[2019-06-09] MEDS: FAMOTIDINE 20 MG TABLET GT SCH ×2 (08:56→20:13)
[2019-06-09] MEDS: DIGOXIN 125 MCG TABLET GT SCH (08:56)
[2019-06-09] MEDS: CLOTRIMAZOLE 1% CREAM 30 GM TUBE TP SCH ×2 (08:56→20:13)
[2019-06-09] MEDS: HYDROGEN PEROXIDE 3% 118 ML BOTTLE TP SCH ×2 (09:16→21:09)
--- NOTE | 2019-06-09 18:51 | NUR ---
Received pt on HT-50 ventilator with the following settings of AC-12, Vt-550, PEEP+5, FIO2-30%, trached with Shiley#6 DCT trach, which is in the place and secure. No SOB noted. Airway care done, pt responded to physical stimuli. HME changed. Resus. bag and back up trach at bedside. Vent and alarms checked and reset.
[2019-06-09] MEDS: ASCORBIC ACID 500 MG TABLET PO SCH (20:13)
[2019-06-09] MEDS: ACIDOPHILUS/BULGARICUS CHEW TAB GT SCH (20:13)
[2019-06-09 20:39] VITALS: BP 125/81
[2019-06-10] MEDS: PROTEIN SUPPLEMENT (PROSTAT) 30 ML LIQUID GT SCH ×3 (05:49→22:51)
[2019-06-10] MEDS: POLYVINYL ALCOHOL OPHT DROPS 15 ML BOTTLE EACHEYE SCH ×3 (05:49→22:51)
[2019-06-10] MEDS: ARGININE/GLUTAMINE/CALCIUM BMB 1 EACH POWD.PACK GT SCH ×2 (05:49→17:32)
[2019-06-10] MEDS: GLUCERNA 1.2 1000ML LIQUID GT PRN (05:49)
[2019-06-10 08:00] VITALS: BP 121/59
[2019-06-10] MEDS: CLOTRIMAZOLE 1% CREAM 30 GM TUBE TP SCH ×2 (08:58→20:31)
[2019-06-10] MEDS: FAMOTIDINE 20 MG TABLET GT SCH ×2 (08:58→20:30)
[2019-06-10] MEDS: POTASSIUM CHLORIDE 40 MEQ/30 ML LIQUID UDC GT SCH (08:58)
[2019-06-10] MEDS: DIGOXIN 125 MCG TABLET GT SCH (08:58)
[2019-06-10] MEDS: Z GUARD REMEDY PASTE 57 GM TUBE TOP SCH ×4 (08:58→20:30)
[2019-06-10] MEDS: levETIRAcetam 500 MG/5 ML LIQUID UDC GT SCH ×2 (08:58→20:29)
[2019-06-10] MEDS: HYDROGEN PEROXIDE 3% 118 ML BOTTLE TP SCH ×2 (09:54→21:51)
[2019-06-10] MEDS: ACIDOPHILUS/BULGARICUS CHEW TAB GT SCH (20:29)
[2019-06-10 20:30] VITALS: BP 118/60
[2019-06-10] MEDS: ASCORBIC ACID 500 MG TABLET PO SCH (20:30)
[2019-06-11] MEDS: GLUCERNA 1.2 1000ML LIQUID GT PRN (05:30)
[2019-06-11] MEDS: PROTEIN SUPPLEMENT (PROSTAT) 30 ML LIQUID GT SCH ×3 (05:42→21:43)
[2019-06-11] MEDS: ARGININE/GLUTAMINE/CALCIUM BMB 1 EACH POWD.PACK GT SCH ×2 (05:42→17:26)
[2019-06-11] MEDS: POLYVINYL ALCOHOL OPHT DROPS 15 ML BOTTLE EACHEYE SCH ×3 (05:42→21:43)
--- NOTE | 2019-06-11 06:38 | NUR ---
Paged Dr. Betancur RE: dislodged PEG; Inserted GT [place] #22 X 6 ml per facility protocol, patient tolerated procedure well. Awaiting for MD to call back.
[2019-06-11 06:55] LABS: ALANINE AMINOTRANSFERASE 22 U/L (14-59); ALKALINE PHOSPHATASE 273 U/L (50-136); ASPARTATE AMINOTRANSFERASE 23 U/L (15-37); BILIRUBIN,DIRECT < 0.1 mg/dL (0.0-0.2); BILIRUBIN,TOTAL 0.4 mg/dL (0.2-1.0); TOTAL PROTEIN, SERUM 7.6 g/dL (6.4-8.2)
[2019-06-11 06:58] LABS: BASOPHILS % (AUTO) 0.6 % (0.0-2.0); EOSINOPHILS # (AUTO) 0.2 K/uL (0.0-0.7); EOSINOPHILS % (AUTO) 4.4 % (0.0-7.0); HEMATOCRIT 37.5 % (31.2-41.9); HEMOGLOBIN 12.3 g/dL (10.9-14.3); LYMPHOCYTES # (AUTO) 1.1 K/uL (20.0-40.0); LYMPHOCYTES % (AUTO) 32.4 % (20.5-51.5); MEAN CORPUSCULAR HEMOGLOBIN 30.2 uug (24.7-32.8); MEAN CORPUSCULAR HGB CONC 33 g/dL (32.3-35.6); MEAN CORPUSCULAR VOLUME 92.3 fL (75.5-95.3); MONOCYTES # (AUTO) 0.4 K/uL (2.0-10.0); NEUTROPHILS # (AUTO) 1.9 K/uL (1.8-8.9); NEUTROPHILS % (AUTO) 52.6 % (38.5-71.5); PLATELET COUNT (AUTO) 89 K/uL (179-408); RED BLOOD CELL COUNT(AUTO) 4.07 MIL/uL (3.63-4.92); WHITE BLOOD COUNT (AUTO) 3.5 K/uL (3.8-11.8)
--- NOTE | 2019-06-11 07:07 | NUR ---
Noted PEG to be out of place, inserted GT faroese # 22, tolerated procedure well, with minimal bleeding noted, GT site care done. Check for placement by introducing air via asepto syringe and noted with gurgling sound and noted with abdominal contents when I aspirated air, no bleeding noted, handled very gently, will continue monitor. Addendum: 06/11/19 at 0710 by DERIAN MANZANO RN KUB ordered per hospital policy, Hold feeding and meds while waiting for KUB to be done and may re-start feeding if KUB shos proper placement. Addendum: 06/11/19 at 0744 by DERIAN MANZANO RN Called Sheeba ( Patient's daughter) and was notified about insertion of GT and she was thankful for letting her know.
[2019-06-11 07:11] LABS: CARBON DIOXIDE 34 mmol/L (21-32); CHLORIDE 112 mmol/L (98-107); CREATININE 0.4 mg/dL (0.6-1.3); GLUCOSE 104 mg/dL (74-106); MAGNESIUM 2.3 mg/dL (1.8-2.4); PHOSPHOROUS 3.4 mg/dL (2.5-4.9); POTASSIUM 3.8 mmol/L (3.5-5.1); UREA NITROGEN, BLOOD 31 mg/dL (7-18)
[2019-06-11 08:00] VITALS: BP 121/64
--- NOTE | 2019-06-11 09:00 | NUR ---
KUB was done,xray shows GT is in place,will resume medications and enteral feeding.
[2019-06-11] MEDS: HYDROGEN PEROXIDE 3% 118 ML BOTTLE TP SCH ×2 (09:05→21:14)
[2019-06-11] MEDS: Z GUARD REMEDY PASTE 57 GM TUBE TOP SCH ×4 (09:51→21:43)
[2019-06-11] MEDS: FAMOTIDINE 20 MG TABLET GT SCH ×2 (09:51→21:42)
[2019-06-11] MEDS: POTASSIUM CHLORIDE 40 MEQ/30 ML LIQUID UDC GT SCH (09:51)
[2019-06-11] MEDS: DIGOXIN 125 MCG TABLET GT SCH (09:51)
[2019-06-11] MEDS: CLOTRIMAZOLE 1% CREAM 30 GM TUBE TP SCH ×2 (09:51→21:43)
[2019-06-11] MEDS: levETIRAcetam 500 MG/5 ML LIQUID UDC GT SCH ×2 (09:51→21:42)
[2019-06-11 09:58] LABS: BAND % (MANUAL) 1 % (0-10); BASOPHILS % (MANUAL) 1 % (0-2); EOSINOPHILS % (MANUAL) 2 % (0-8); LYMPHOCYTES % (MANUAL) 36 % (20-40); MONOCYTES % (MANUAL) 10 % (2-10); NEUTROPHILS % (MANUAL) 50 % (42-75)
[2019-06-11 21:07] VITALS: BP 126/76
[2019-06-11] MEDS: ACIDOPHILUS/BULGARICUS CHEW TAB GT SCH (21:41)
[2019-06-11] MEDS: ASCORBIC ACID 500 MG TABLET PO SCH (21:43)
[2019-06-12] MEDS: ARGININE/GLUTAMINE/CALCIUM BMB 1 EACH POWD.PACK GT SCH ×2 (05:54→18:24)
[2019-06-12] MEDS: POLYVINYL ALCOHOL OPHT DROPS 15 ML BOTTLE EACHEYE SCH ×3 (05:54→21:41)
[2019-06-12] MEDS: PROTEIN SUPPLEMENT (PROSTAT) 30 ML LIQUID GT SCH ×3 (05:55→21:41)
[2019-06-12 08:00] VITALS: BP 119/58
[2019-06-12] MEDS: DIGOXIN 125 MCG TABLET GT SCH (08:19)
[2019-06-12] MEDS: levETIRAcetam 500 MG/5 ML LIQUID UDC GT SCH ×2 (08:19→21:40)
[2019-06-12] MEDS: FAMOTIDINE 20 MG TABLET GT SCH ×2 (08:19→21:40)
[2019-06-12] MEDS: POTASSIUM CHLORIDE 40 MEQ/30 ML LIQUID UDC GT SCH (08:20)
[2019-06-12] MEDS: Z GUARD REMEDY PASTE 57 GM TUBE TOP SCH ×4 (09:00→21:41)
[2019-06-12] MEDS: CLOTRIMAZOLE 1% CREAM 30 GM TUBE TP SCH ×2 (09:00→21:41)
[2019-06-12] MEDS: HYDROGEN PEROXIDE 3% 118 ML BOTTLE TP SCH ×2 (09:15→20:38)
[2019-06-12] MEDS: GLUCERNA 1.2 1000ML LIQUID GT PRN (11:54)
[2019-06-12 20:00] VITALS: BP 121/68
[2019-06-12] MEDS: ACIDOPHILUS/BULGARICUS CHEW TAB GT SCH (21:39)
[2019-06-12] MEDS: ASCORBIC ACID 500 MG TABLET PO SCH (21:41)
[2019-06-13] MEDS: ARGININE/GLUTAMINE/CALCIUM BMB 1 EACH POWD.PACK GT SCH ×2 (05:35→17:27)
[2019-06-13] MEDS: PROTEIN SUPPLEMENT (PROSTAT) 30 ML LIQUID GT SCH ×3 (05:35→21:48)
[2019-06-13] MEDS: POLYVINYL ALCOHOL OPHT DROPS 15 ML BOTTLE EACHEYE SCH ×3 (05:35→21:48)
[2019-06-13 08:02] VITALS: BP 109/64
[2019-06-13] MEDS: levETIRAcetam 500 MG/5 ML LIQUID UDC GT SCH ×2 (08:36→21:46)
[2019-06-13] MEDS: POTASSIUM CHLORIDE 40 MEQ/30 ML LIQUID UDC GT SCH (08:37)
[2019-06-13] MEDS: FAMOTIDINE 20 MG TABLET GT SCH ×2 (08:37→21:47)
[2019-06-13] MEDS: DIGOXIN 125 MCG TABLET GT SCH (08:37)
[2019-06-13] MEDS: Z GUARD REMEDY PASTE 57 GM TUBE TOP SCH ×4 (08:38→21:48)
[2019-06-13] MEDS: CLOTRIMAZOLE 1% CREAM 30 GM TUBE TP SCH ×2 (09:00→21:48)
[2019-06-13] MEDS: HYDROGEN PEROXIDE 3% 118 ML BOTTLE TP SCH ×2 (09:00→21:00)
--- NOTE | 2019-06-13 14:16 | NUR ---
SEEN BY DR. TRUJILLO AND WITH NNO.
[2019-06-13] MEDS: GLUCERNA 1.2 1000ML LIQUID GT PRN (14:34)
--- NOTE | 2019-06-13 17:00 | NUR ---
SEEN BY DR. ALEJANDRA HOUGH AND WITH NNO.
[2019-06-13 20:00] VITALS: BP 120/65
[2019-06-13] MEDS: ACIDOPHILUS/BULGARICUS CHEW TAB GT SCH (21:46)
[2019-06-13] MEDS: ASCORBIC ACID 500 MG TABLET PO SCH (21:47)
--- NOTE | 2019-06-13 22:33 | NUR ---
Trached resident endorsed on [employer] HT-50 vent with ordered vent settings. No signs of respiratory distress noted. Airway is patent and secure @ midline. Suctioned small amounts of pale white secretions without complications. Alarms are on/audible.
[2019-06-14] MEDS: PROTEIN SUPPLEMENT (PROSTAT) 30 ML LIQUID GT SCH ×3 (05:37→21:39)
[2019-06-14] MEDS: POLYVINYL ALCOHOL OPHT DROPS 15 ML BOTTLE EACHEYE SCH ×3 (05:37→21:39)
[2019-06-14] MEDS: ARGININE/GLUTAMINE/CALCIUM BMB 1 EACH POWD.PACK GT SCH ×2 (05:37→18:03)
[2019-06-14 08:02] VITALS: BP 126/59
[2019-06-14] MEDS: levETIRAcetam 500 MG/5 ML LIQUID UDC GT SCH ×2 (08:27→20:18)
[2019-06-14] MEDS: POTASSIUM CHLORIDE 40 MEQ/30 ML LIQUID UDC GT SCH (08:28)
[2019-06-14] MEDS: Z GUARD REMEDY PASTE 57 GM TUBE TOP SCH ×4 (08:28→20:18)
[2019-06-14] MEDS: DIGOXIN 125 MCG TABLET GT SCH (08:28)
[2019-06-14] MEDS: FAMOTIDINE 20 MG TABLET GT SCH ×2 (08:28→20:18)
[2019-06-14] MEDS: CLOTRIMAZOLE 1% CREAM 30 GM TUBE TP SCH ×2 (08:29→20:18)
[2019-06-14] MEDS: HYDROGEN PEROXIDE 3% 118 ML BOTTLE TP SCH ×2 (09:00→21:05)
[2019-06-14] MEDS: GLUCERNA 1.2 1000ML LIQUID GT PRN (18:04)
[2019-06-14 20:00] VITALS: BP 116/62
--- NOTE | 2019-06-14 20:15 | NUR ---
PT RECEIVED ON CONTINUOUS VENT, TRACH TUBE IN PLACE PATENT AND SECURE WITH TRACH TIE. BACK UP TRACH AND AMBU BAG AT BEDSIDE. TRACH CARE DONE. SUCTION PRN. VENT CHECKED AND RESET. ALARMS WORKING WELL AND AUDIBLE. NO DISTRESS NOTED AT THIS TIME. WILL CONTINUE TO MONITOR.
[2019-06-14] MEDS: ACIDOPHILUS/BULGARICUS CHEW TAB GT SCH (20:17)
[2019-06-14] MEDS: ASCORBIC ACID 500 MG TABLET PO SCH (20:18)
[2019-06-15] MEDS: PROTEIN SUPPLEMENT (PROSTAT) 30 ML LIQUID GT SCH ×3 (05:23→22:07)
[2019-06-15] MEDS: ARGININE/GLUTAMINE/CALCIUM BMB 1 EACH POWD.PACK GT SCH ×2 (05:23→17:57)
[2019-06-15] MEDS: POLYVINYL ALCOHOL OPHT DROPS 15 ML BOTTLE EACHEYE SCH ×3 (05:23→22:07)
[2019-06-15 08:02] VITALS: BP 128/67
[2019-06-15] MEDS: DIGOXIN 125 MCG TABLET GT SCH (08:49)
[2019-06-15] MEDS: levETIRAcetam 500 MG/5 ML LIQUID UDC GT SCH ×2 (08:49→21:05)
[2019-06-15] MEDS: CLOTRIMAZOLE 1% CREAM 30 GM TUBE TP SCH ×2 (08:50→21:06)
[2019-06-15] MEDS: FAMOTIDINE 20 MG TABLET GT SCH ×2 (08:50→21:05)
[2019-06-15] MEDS: POTASSIUM CHLORIDE 40 MEQ/30 ML LIQUID UDC GT SCH (08:50)
[2019-06-15] MEDS: Z GUARD REMEDY PASTE 57 GM TUBE TOP SCH ×4 (08:50→21:06)
[2019-06-15] MEDS: HYDROGEN PEROXIDE 3% 118 ML BOTTLE TP SCH ×2 (09:00→21:41)
--- NOTE | 2019-06-15 10:45 | NUR ---
SEEN AND EXAMINED BY EVI Leon) AND WITH СВЕТЛАНАO.
[2019-06-15] MEDS: GLUCERNA 1.2 1000ML LIQUID GT PRN (17:57)
[2019-06-15 20:15] VITALS: BP 134/66
--- NOTE | 2019-06-15 20:22 | NUR ---
Received pt on HT-50 ventilator with the following settings of AC-12, Vt-550, PEEP+5, FIO2-30%, trached with Shiley#6 DCT trach, which is in the place and secure. No respiratory distress noted. Airway care done, pt responded to physical stimuli. HME and Sx Quispe changed. Resus. bag and back up trach at bedside. Vent and alarms checked and reset.
[2019-06-15] MEDS: ACIDOPHILUS/BULGARICUS CHEW TAB GT SCH (21:05)
[2019-06-15] MEDS: ASCORBIC ACID 500 MG TABLET PO SCH (21:05)
[2019-06-15] MEDS: ACETAMINOPHEN 650 MG/20 ML UDC- SA PATIENTS-PAIN ONLY GT PRN (21:34)
[2019-06-16] MEDS: POLYVINYL ALCOHOL OPHT DROPS 15 ML BOTTLE EACHEYE SCH ×3 (06:26→22:00)
[2019-06-16] MEDS: ARGININE/GLUTAMINE/CALCIUM BMB 1 EACH POWD.PACK GT SCH ×2 (06:26→17:44)
[2019-06-16] MEDS: PROTEIN SUPPLEMENT (PROSTAT) 30 ML LIQUID GT SCH ×3 (06:26→22:00)
[2019-06-16] MEDS: HYDROGEN PEROXIDE 3% 118 ML BOTTLE TP SCH ×2 (07:22→20:36)
[2019-06-16 08:00] VITALS: BP 123/83
[2019-06-16] MEDS: DIGOXIN 125 MCG TABLET GT SCH (08:24)
[2019-06-16] MEDS: levETIRAcetam 500 MG/5 ML LIQUID UDC GT SCH ×2 (08:24→20:55)
[2019-06-16] MEDS: FAMOTIDINE 20 MG TABLET GT SCH ×2 (08:24→20:55)
[2019-06-16] MEDS: Z GUARD REMEDY PASTE 57 GM TUBE TOP SCH ×4 (08:25→20:56)
[2019-06-16] MEDS: POTASSIUM CHLORIDE 40 MEQ/30 ML LIQUID UDC GT SCH (08:25)
[2019-06-16] MEDS: CLOTRIMAZOLE 1% CREAM 30 GM TUBE TP SCH ×2 (08:31→20:56)
[2019-06-16 20:03] VITALS: BP 123/77
[2019-06-16] MEDS: ACIDOPHILUS/BULGARICUS CHEW TAB GT SCH (20:55)
[2019-06-16] MEDS: ASCORBIC ACID 500 MG TABLET PO SCH (20:55)
[2019-06-17] MEDS: POLYVINYL ALCOHOL OPHT DROPS 15 ML BOTTLE EACHEYE SCH ×3 (05:43→21:40)
[2019-06-17] MEDS: ARGININE/GLUTAMINE/CALCIUM BMB 1 EACH POWD.PACK GT SCH ×2 (05:43→18:09)
[2019-06-17] MEDS: PROTEIN SUPPLEMENT (PROSTAT) 30 ML LIQUID GT SCH ×3 (05:43→21:40)
[2019-06-17 08:00] VITALS: BP 123/65
[2019-06-17] MEDS: Z GUARD REMEDY PASTE 57 GM TUBE TOP SCH ×4 (08:20→20:26)
[2019-06-17] MEDS: FAMOTIDINE 20 MG TABLET GT SCH ×2 (08:20→20:25)
[2019-06-17] MEDS: CLOTRIMAZOLE 1% CREAM 30 GM TUBE TP SCH ×2 (08:20→20:26)
[2019-06-17] MEDS: POTASSIUM CHLORIDE 40 MEQ/30 ML LIQUID UDC GT SCH (08:20)
[2019-06-17] MEDS: DIGOXIN 125 MCG TABLET GT SCH (08:20)
[2019-06-17] MEDS: levETIRAcetam 500 MG/5 ML LIQUID UDC GT SCH ×2 (08:20→20:25)
[2019-06-17] MEDS: HYDROGEN PEROXIDE 3% 118 ML BOTTLE TP SCH ×2 (09:00→21:15)
--- NOTE | 2019-06-17 11:30 | NUR ---
SEEN BY ROOPA MUNIZ AND LUIS.ALSO SEEN BY DR. OSHEA AND WITH NEW ORDERS CARRIED OUT.
[2019-06-17 20:08] VITALS: BP 130/72
[2019-06-17] MEDS: ACIDOPHILUS/BULGARICUS CHEW TAB GT SCH (20:25)
[2019-06-17] MEDS: ASCORBIC ACID 500 MG TABLET PO SCH (20:25)
[2019-06-17] MEDS: GLUCERNA 1.2 1000ML LIQUID GT PRN (21:40)
[2019-06-18] MEDS: ARGININE/GLUTAMINE/CALCIUM BMB 1 EACH POWD.PACK GT SCH ×2 (05:12→17:12)
[2019-06-18] MEDS: PROTEIN SUPPLEMENT (PROSTAT) 30 ML LIQUID GT SCH ×3 (05:12→22:14)
[2019-06-18] MEDS: POLYVINYL ALCOHOL OPHT DROPS 15 ML BOTTLE EACHEYE SCH ×3 (05:12→22:14)
[2019-06-18 06:47] LABS: BASOPHILS % (AUTO) 0.7 % (0.0-2.0); EOSINOPHILS # (AUTO) 0.3 K/uL (0.0-0.7); EOSINOPHILS % (AUTO) 6.4 % (0.0-7.0); HEMATOCRIT 37.4 % (31.2-41.9); HEMOGLOBIN 12.4 g/dL (10.9-14.3); LYMPHOCYTES # (AUTO) 1.2 K/uL (20.0-40.0); LYMPHOCYTES % (AUTO) 29.2 % (20.5-51.5); MEAN CORPUSCULAR HEMOGLOBIN 30.4 uug (24.7-32.8); MEAN CORPUSCULAR HGB CONC 33 g/dL (32.3-35.6); MEAN CORPUSCULAR VOLUME 91.8 fL (75.5-95.3); MONOCYTES # (AUTO) 0.5 K/uL (2.0-10.0); MONOCYTES % (AUTO) 11.4 % (0.0-11.0); NEUTROPHILS # (AUTO) 2.2 K/uL (1.8-8.9); NEUTROPHILS % (AUTO) 52.3 % (38.5-71.5); PLATELET COUNT (AUTO) 87 K/uL (179-408); RED BLOOD CELL COUNT(AUTO) 4.08 MIL/uL (3.63-4.92); WHITE BLOOD COUNT (AUTO) 4.2 K/uL (3.8-11.8)
[2019-06-18 07:04] LABS: ALANINE AMINOTRANSFERASE 22 U/L (14-59); ALKALINE PHOSPHATASE 250 U/L (50-136); ASPARTATE AMINOTRANSFERASE 29 U/L (15-37); BILIRUBIN,TOTAL 0.4 mg/dL (0.2-1.0); CARBON DIOXIDE 34 mmol/L (21-32); CHLORIDE 111 mmol/L (98-107); CREATININE 0.5 mg/dL (0.6-1.3); GLUCOSE 100 mg/dL (74-106); MAGNESIUM 2.1 mg/dL (1.8-2.4); PHOSPHOROUS 3.5 mg/dL (2.5-4.9); POTASSIUM 3.9 mmol/L (3.5-5.1); TOTAL PROTEIN, SERUM 7.6 g/dL (6.4-8.2); UREA NITROGEN, BLOOD 41 mg/dL (7-18)
[2019-06-18 08:00] VITALS: BP 137/69
[2019-06-18] MEDS: DIGOXIN 125 MCG TABLET GT SCH (08:15)
[2019-06-18] MEDS: levETIRAcetam 500 MG/5 ML LIQUID UDC GT SCH ×2 (08:15→20:25)
[2019-06-18] MEDS: FAMOTIDINE 20 MG TABLET GT SCH ×2 (08:15→20:25)
[2019-06-18] MEDS: POTASSIUM CHLORIDE 40 MEQ/30 ML LIQUID UDC GT SCH (08:15)
[2019-06-18] MEDS: Z GUARD REMEDY PASTE 57 GM TUBE TOP SCH ×4 (08:16→20:26)
[2019-06-18] MEDS: CLOTRIMAZOLE 1% CREAM 30 GM TUBE TP SCH ×2 (08:16→20:26)
[2019-06-18] MEDS: HYDROGEN PEROXIDE 3% 118 ML BOTTLE TP SCH ×2 (09:00→20:35)
[2019-06-18 20:00] VITALS: BP 130/62
[2019-06-18] MEDS: ACIDOPHILUS/BULGARICUS CHEW TAB GT SCH (20:25)
[2019-06-18] MEDS: ASCORBIC ACID 500 MG TABLET PO SCH (20:26)
[2019-06-19] MEDS: GLUCERNA 1.2 1000ML LIQUID GT PRN (03:26)
[2019-06-19] MEDS: POLYVINYL ALCOHOL OPHT DROPS 15 ML BOTTLE EACHEYE SCH ×3 (06:15→21:44)
[2019-06-19] MEDS: ARGININE/GLUTAMINE/CALCIUM BMB 1 EACH POWD.PACK GT SCH ×2 (06:15→18:02)
[2019-06-19] MEDS: PROTEIN SUPPLEMENT (PROSTAT) 30 ML LIQUID GT SCH ×3 (06:15→21:46)
[2019-06-19] MEDS: DIGOXIN 125 MCG TABLET GT SCH (08:54)
[2019-06-19] MEDS: levETIRAcetam 500 MG/5 ML LIQUID UDC GT SCH ×2 (08:54→21:43)
[2019-06-19] MEDS: POTASSIUM CHLORIDE 40 MEQ/30 ML LIQUID UDC GT SCH (08:56)
[2019-06-19] MEDS: FAMOTIDINE 20 MG TABLET GT SCH ×2 (08:56→21:43)
[2019-06-19] MEDS: Z GUARD REMEDY PASTE 57 GM TUBE TOP SCH ×4 (08:56→21:43)
[2019-06-19] MEDS: CLOTRIMAZOLE 1% CREAM 30 GM TUBE TP SCH ×2 (08:57→21:43)
[2019-06-19] MEDS: HYDROGEN PEROXIDE 3% 118 ML BOTTLE TP SCH ×2 (09:00→20:38)
[2019-06-19 10:58] VITALS: BP 128/80
[2019-06-19 20:00] VITALS: BP 122/50
[2019-06-19] MEDS: ASCORBIC ACID 500 MG TABLET PO SCH (21:43)
[2019-06-19] MEDS: ACIDOPHILUS/BULGARICUS CHEW TAB GT SCH (21:43)
[2019-06-20] MEDS: ARGININE/GLUTAMINE/CALCIUM BMB 1 EACH POWD.PACK GT SCH ×2 (05:34→17:16)
[2019-06-20] MEDS: POLYVINYL ALCOHOL OPHT DROPS 15 ML BOTTLE EACHEYE SCH ×3 (05:34→21:52)
[2019-06-20] MEDS: PROTEIN SUPPLEMENT (PROSTAT) 30 ML LIQUID GT SCH ×3 (05:34→21:52)
[2019-06-20] MEDS: levETIRAcetam 500 MG/5 ML LIQUID UDC GT SCH ×2 (08:12→21:53)
[2019-06-20] MEDS: DIGOXIN 125 MCG TABLET GT SCH (08:13)
[2019-06-20] MEDS: CLOTRIMAZOLE 1% CREAM 30 GM TUBE TP SCH ×2 (08:14→21:52)
[2019-06-20] MEDS: FAMOTIDINE 20 MG TABLET GT SCH ×2 (08:14→21:51)
[2019-06-20] MEDS: POTASSIUM CHLORIDE 40 MEQ/30 ML LIQUID UDC GT SCH (08:14)
[2019-06-20] MEDS: Z GUARD REMEDY PASTE 57 GM TUBE TOP SCH ×4 (08:14→21:51)
[2019-06-20] MEDS: GLUCERNA 1.2 1000ML LIQUID GT PRN (08:15)
[2019-06-20] MEDS: HYDROGEN PEROXIDE 3% 118 ML BOTTLE TP SCH ×2 (09:00→21:13)
[2019-06-20 11:07] VITALS: BP 147/60
[2019-06-20 20:37] VITALS: BP 131/77
[2019-06-20] MEDS: ASCORBIC ACID 500 MG TABLET PO SCH (21:51)
[2019-06-20] MEDS: ACIDOPHILUS/BULGARICUS CHEW TAB GT SCH (21:51)
--- NOTE | 2019-06-21 03:05 | NUR ---
Resident endorsed on HT-50 vent with ordered vent settings. No signs of respiratory distress noted. Airway is patent and secure @ midline. Suctioned small amounts of pale white secretions without complications. Alarms are on/audible. Will continue to monitor.
[2019-06-21] MEDS: PROTEIN SUPPLEMENT (PROSTAT) 30 ML LIQUID GT SCH ×3 (05:33→21:45)
[2019-06-21] MEDS: POLYVINYL ALCOHOL OPHT DROPS 15 ML BOTTLE EACHEYE SCH ×3 (05:33→21:45)
[2019-06-21] MEDS: ARGININE/GLUTAMINE/CALCIUM BMB 1 EACH POWD.PACK GT SCH ×2 (05:33→18:04)
[2019-06-21] MEDS: DIGOXIN 125 MCG TABLET GT SCH (08:26)
[2019-06-21] MEDS: levETIRAcetam 500 MG/5 ML LIQUID UDC GT SCH ×2 (08:26→21:43)
[2019-06-21] MEDS: POTASSIUM CHLORIDE 40 MEQ/30 ML LIQUID UDC GT SCH (08:28)
[2019-06-21] MEDS: FAMOTIDINE 20 MG TABLET GT SCH ×2 (08:28→21:43)
[2019-06-21] MEDS: Z GUARD REMEDY PASTE 57 GM TUBE TOP SCH ×4 (08:28→21:44)
[2019-06-21] MEDS: CLOTRIMAZOLE 1% CREAM 30 GM TUBE TP SCH ×2 (08:29→21:45)
[2019-06-21] MEDS: HYDROGEN PEROXIDE 3% 118 ML BOTTLE TP SCH ×2 (09:27→21:16)
[2019-06-21 10:50] VITALS: BP 123/48
--- NOTE | 2019-06-21 18:40 | NUR ---
CHASTITY Curran and this SW called patient's daughter Sheeba [phone] and informed her that per CDC and [facility] decision to minimize the risk of subacute residents becoming sick with the COVID-19 virus, visitation to all LTC facilities will be suspended, effective immediately, and until further notice. Sheeba expressed understanding.
--- NOTE | 2019-06-21 18:41 | NUR ---
CHASTITY Curran spoke with patient's Danielle [phone] and informed her that per CDC and [facility] decision to minimize the risk of subacute residents becoming sick with the COVID-19 virus, visitation to all LTC facilities will be suspended, effective immediately, and until further notice. Danielle expressed understanding. Addendum: 06/21/19 at 1843 by HAYDEE MIMS INCORRECT ENTRY
[2019-06-21 20:49] VITALS: BP 124/69
[2019-06-21] MEDS: ACIDOPHILUS/BULGARICUS CHEW TAB GT SCH (21:43)
[2019-06-21] MEDS: ASCORBIC ACID 500 MG TABLET PO SCH (21:44)
[2019-06-22] MEDS: ARGININE/GLUTAMINE/CALCIUM BMB 1 EACH POWD.PACK GT SCH ×2 (05:46→17:02)
[2019-06-22] MEDS: POLYVINYL ALCOHOL OPHT DROPS 15 ML BOTTLE EACHEYE SCH ×3 (05:46→22:51)
[2019-06-22] MEDS: PROTEIN SUPPLEMENT (PROSTAT) 30 ML LIQUID GT SCH ×3 (05:47→22:51)
[2019-06-22 08:00] VITALS: BP 127/62
[2019-06-22] MEDS: DIGOXIN 125 MCG TABLET GT SCH (08:58)
[2019-06-22] MEDS: levETIRAcetam 500 MG/5 ML LIQUID UDC GT SCH ×2 (08:58→20:57)
[2019-06-22] MEDS: FAMOTIDINE 20 MG TABLET GT SCH ×2 (08:59→20:57)
[2019-06-22] MEDS: POTASSIUM CHLORIDE 40 MEQ/30 ML LIQUID UDC GT SCH (08:59)
[2019-06-22] MEDS: Z GUARD REMEDY PASTE 57 GM TUBE TOP SCH ×4 (08:59→20:57)
[2019-06-22] MEDS: CLOTRIMAZOLE 1% CREAM 30 GM TUBE TP SCH ×2 (08:59→20:57)
[2019-06-22] MEDS: HYDROGEN PEROXIDE 3% 118 ML BOTTLE TP SCH ×2 (09:03→18:40)
--- NOTE | 2019-06-22 09:29 | NUR ---
Pt received sleepy,no respiratory distress,no s/s of discomfort noted,temp 98,o2 sat 100 %, has trach connected to ventilator.
[2019-06-22 20:41] VITALS: BP 125/67
[2019-06-22] MEDS: ASCORBIC ACID 500 MG TABLET PO SCH (20:57)
[2019-06-22] MEDS: ACIDOPHILUS/BULGARICUS CHEW TAB GT SCH (20:57)
--- NOTE | 2019-06-22 23:14 | NUR ---
Afebrile, no respiratory distress noted, Temperature is 98.5, no respiratory distress noted, kept clean and comfortable.
[2019-06-23] MEDS: ARGININE/GLUTAMINE/CALCIUM BMB 1 EACH POWD.PACK GT SCH ×2 (05:49→17:24)
[2019-06-23] MEDS: PROTEIN SUPPLEMENT (PROSTAT) 30 ML LIQUID GT SCH ×3 (05:49→21:41)
[2019-06-23] MEDS: POLYVINYL ALCOHOL OPHT DROPS 15 ML BOTTLE EACHEYE SCH ×3 (05:49→21:41)
[2019-06-23] MEDS: GLUCERNA 1.2 1000ML LIQUID GT PRN (05:50)
[2019-06-23] MEDS: levETIRAcetam 500 MG/5 ML LIQUID UDC GT SCH ×2 (08:45→21:40)
[2019-06-23] MEDS: FAMOTIDINE 20 MG TABLET GT SCH ×2 (08:46→21:40)
[2019-06-23] MEDS: DIGOXIN 125 MCG TABLET GT SCH (08:46)
[2019-06-23] MEDS: Z GUARD REMEDY PASTE 57 GM TUBE TOP SCH ×4 (08:47→21:41)
[2019-06-23] MEDS: POTASSIUM CHLORIDE 40 MEQ/30 ML LIQUID UDC GT SCH (08:47)
[2019-06-23] MEDS: CLOTRIMAZOLE 1% CREAM 30 GM TUBE TP SCH ×2 (08:48→21:41)
[2019-06-23] MEDS: HYDROGEN PEROXIDE 3% 118 ML BOTTLE TP SCH ×2 (09:00→18:35)
[2019-06-23 11:32] VITALS: BP 124/97
--- NOTE | 2019-06-23 16:20 | NUR ---
no respiratory distress noted,trach in place connected to ventilator,afebrile temp 98,no changes on condition.
[2019-06-23 20:36] VITALS: BP 130/84
--- NOTE | 2019-06-23 21:00 | NUR ---
Afebrile, temperature is 98.7 Fahrenheit, trach is intact and patent, connected to vent, 02 sat is 99%, no respiratory distress noted, kept clean and comfortable.
[2019-06-23] MEDS: ACIDOPHILUS/BULGARICUS CHEW TAB GT SCH (21:40)
[2019-06-23] MEDS: ASCORBIC ACID 500 MG TABLET PO SCH (21:41)
[2019-06-24] MEDS: POLYVINYL ALCOHOL OPHT DROPS 15 ML BOTTLE EACHEYE SCH ×3 (05:57→22:09)
[2019-06-24] MEDS: PROTEIN SUPPLEMENT (PROSTAT) 30 ML LIQUID GT SCH ×3 (05:57→22:09)
[2019-06-24] MEDS: ARGININE/GLUTAMINE/CALCIUM BMB 1 EACH POWD.PACK GT SCH ×2 (05:57→17:43)
[2019-06-24] MEDS: levETIRAcetam 500 MG/5 ML LIQUID UDC GT SCH ×2 (08:28→20:32)
[2019-06-24] MEDS: DIGOXIN 125 MCG TABLET GT SCH (08:29)
[2019-06-24] MEDS: POTASSIUM CHLORIDE 40 MEQ/30 ML LIQUID UDC GT SCH (08:29)
[2019-06-24] MEDS: FAMOTIDINE 20 MG TABLET GT SCH ×2 (08:29→20:32)
[2019-06-24] MEDS: Z GUARD REMEDY PASTE 57 GM TUBE TOP SCH ×4 (08:29→20:33)
[2019-06-24] MEDS: CLOTRIMAZOLE 1% CREAM 30 GM TUBE TP SCH ×2 (08:30→20:33)
[2019-06-24 09:22] VITALS: BP 116/55
[2019-06-24] MEDS: HYDROGEN PEROXIDE 3% 118 ML BOTTLE TP SCH ×2 (09:58→20:42)
[2019-06-24 11:15] VITALS: BP 116/55
--- NOTE | 2019-06-24 14:37 | NUR ---
Patient stable, no acute respiratory distress noted, repositioned q2hrs for comfort.
[2019-06-24] MEDS: ACIDOPHILUS/BULGARICUS CHEW TAB GT SCH (20:32)
[2019-06-24] MEDS: ASCORBIC ACID 500 MG TABLET PO SCH (20:32)
[2019-06-24 20:58] VITALS: BP 110/62
--- NOTE | 2019-06-24 21:21 | NUR ---
Temperature is 97.9, no SOB, no signs of any respiratory distress noted, patient is stable, turned and repositioned, kept clean and comfortable.
[2019-06-25] MEDS: GLUCERNA 1.2 1000ML LIQUID GT PRN (05:00)
[2019-06-25] MEDS: ARGININE/GLUTAMINE/CALCIUM BMB 1 EACH POWD.PACK GT SCH ×2 (05:35→18:09)
[2019-06-25] MEDS: PROTEIN SUPPLEMENT (PROSTAT) 30 ML LIQUID GT SCH ×3 (05:35→21:47)
[2019-06-25] MEDS: POLYVINYL ALCOHOL OPHT DROPS 15 ML BOTTLE EACHEYE SCH ×3 (05:35→21:47)
[2019-06-25 08:07] LABS: BASOPHILS % (AUTO) 0.6 % (0.0-2.0); EOSINOPHILS # (AUTO) 0.2 K/uL (0.0-0.7); EOSINOPHILS % (AUTO) 5.1 % (0.0-7.0); HEMATOCRIT 38.2 % (31.2-41.9); HEMOGLOBIN 12.4 g/dL (10.9-14.3); LYMPHOCYTES # (AUTO) 1.2 K/uL (20.0-40.0); LYMPHOCYTES % (AUTO) 32.5 % (20.5-51.5); MEAN CORPUSCULAR HEMOGLOBIN 30.1 uug (24.7-32.8); MEAN CORPUSCULAR HGB CONC 32 g/dL (32.3-35.6); MEAN CORPUSCULAR VOLUME 92.7 fL (75.5-95.3); MONOCYTES # (AUTO) 0.4 K/uL (2.0-10.0); MONOCYTES % (AUTO) 10.3 % (0.0-11.0); NEUTROPHILS # (AUTO) 1.9 K/uL (1.8-8.9); NEUTROPHILS % (AUTO) 51.5 % (38.5-71.5); PLATELET COUNT (AUTO) 92 K/uL (179-408); RED BLOOD CELL COUNT(AUTO) 4.12 MIL/uL (3.63-4.92); WHITE BLOOD COUNT (AUTO) 3.7 K/uL (3.8-11.8)
[2019-06-25 08:11] VITALS: BP 97/55
[2019-06-25 08:24] LABS: CARBON DIOXIDE 32 mmol/L (21-32); CHLORIDE 111 mmol/L (98-107); CREATININE 0.4 mg/dL (0.6-1.3); GLUCOSE 102 mg/dL (74-106); MAGNESIUM 2.4 mg/dL (1.8-2.4); PHOSPHOROUS 2.9 mg/dL (2.5-4.9); UREA NITROGEN, BLOOD 43 mg/dL (7-18)
[2019-06-25] MEDS: levETIRAcetam 500 MG/5 ML LIQUID UDC GT SCH ×2 (09:28→21:45)
[2019-06-25] MEDS: DIGOXIN 125 MCG TABLET GT SCH (09:29)
[2019-06-25] MEDS: FAMOTIDINE 20 MG TABLET GT SCH ×2 (09:29→21:45)
[2019-06-25] MEDS: POTASSIUM CHLORIDE 40 MEQ/30 ML LIQUID UDC GT SCH (09:30)
[2019-06-25] MEDS: Z GUARD REMEDY PASTE 57 GM TUBE TOP SCH ×4 (09:30→21:46)
[2019-06-25] MEDS: CLOTRIMAZOLE 1% CREAM 30 GM TUBE TP SCH ×2 (09:30→21:47)
[2019-06-25] MEDS: HYDROGEN PEROXIDE 3% 118 ML BOTTLE TP SCH ×2 (09:49→20:58)
--- NOTE | 2019-06-25 12:24 | NUR ---
Seen and examined by Dr Betancur ,aware of the abnormal labs results ,with new orders noted,pt is afebrile temp 98.2 .
--- NOTE | 2019-06-25 16:33 | NUR ---
no respiratory distress noted.trach to ventilator,oral and trach suction done,on close observation,no changes on condition noted.
[2019-06-25 20:00] VITALS: BP 141/62
[2019-06-25] MEDS: ACIDOPHILUS/BULGARICUS CHEW TAB GT SCH (21:44)
[2019-06-25] MEDS: ASCORBIC ACID 500 MG TABLET PO SCH (21:45)
[2019-06-26] MEDS: POLYVINYL ALCOHOL OPHT DROPS 15 ML BOTTLE EACHEYE SCH ×3 (05:36→21:50)
[2019-06-26] MEDS: PROTEIN SUPPLEMENT (PROSTAT) 30 ML LIQUID GT SCH ×3 (05:36→21:50)
[2019-06-26] MEDS: ARGININE/GLUTAMINE/CALCIUM BMB 1 EACH POWD.PACK GT SCH ×2 (05:36→18:49)
[2019-06-26] MEDS: HYDROGEN PEROXIDE 3% 118 ML BOTTLE TP SCH ×2 (07:42→18:35)
[2019-06-26 08:10] VITALS: BP 115/52
[2019-06-26] MEDS: POTASSIUM CHLORIDE 40 MEQ/30 ML LIQUID UDC GT SCH (09:00)
[2019-06-26] MEDS: DIGOXIN 125 MCG TABLET GT SCH (09:00)
[2019-06-26] MEDS: levETIRAcetam 500 MG/5 ML LIQUID UDC GT SCH ×2 (09:00→21:48)
[2019-06-26] MEDS: CLOTRIMAZOLE 1% CREAM 30 GM TUBE TP SCH ×2 (09:00→21:50)
[2019-06-26] MEDS: Z GUARD REMEDY PASTE 57 GM TUBE TOP SCH ×4 (09:00→21:50)
[2019-06-26] MEDS: FAMOTIDINE 20 MG TABLET GT SCH ×2 (09:00→21:49)
--- NOTE | 2019-06-26 18:04 | NUR ---
In stable condition,no respiratory distress,trach connected to ventilator,afebrile temp 98.3.
[2019-06-26] MEDS: ACIDOPHILUS/BULGARICUS CHEW TAB GT SCH (21:48)
[2019-06-26] MEDS: ASCORBIC ACID 500 MG TABLET PO SCH (21:50)
[2019-06-26 22:56] VITALS: BP 125/66
[2019-06-27] MEDS: PROTEIN SUPPLEMENT (PROSTAT) 30 ML LIQUID GT SCH ×3 (05:21→21:40)
[2019-06-27] MEDS: POLYVINYL ALCOHOL OPHT DROPS 15 ML BOTTLE EACHEYE SCH ×3 (05:21→21:40)
[2019-06-27] MEDS: ARGININE/GLUTAMINE/CALCIUM BMB 1 EACH POWD.PACK GT SCH ×2 (05:21→18:41)
[2019-06-27] MEDS: levETIRAcetam 500 MG/5 ML LIQUID UDC GT SCH ×2 (09:20→21:39)
[2019-06-27] MEDS: DIGOXIN 125 MCG TABLET GT SCH (09:22)
[2019-06-27] MEDS: FAMOTIDINE 20 MG TABLET GT SCH ×2 (09:22→21:39)
[2019-06-27] MEDS: POTASSIUM CHLORIDE 40 MEQ/30 ML LIQUID UDC GT SCH (09:22)
[2019-06-27] MEDS: Z GUARD REMEDY PASTE 57 GM TUBE TOP SCH ×4 (09:23→21:40)
[2019-06-27] MEDS: CLOTRIMAZOLE 1% CREAM 30 GM TUBE TP SCH ×2 (09:23→21:40)
[2019-06-27] MEDS: HYDROGEN PEROXIDE 3% 118 ML BOTTLE TP SCH ×2 (09:32→20:59)
[2019-06-27 11:26] VITALS: BP 107/67
--- NOTE | 2019-06-27 18:59 | NUR ---
SEEN BY DR. VALLE AND AWARE OF F/C CAME OUT WITH BALLOON WHEN SHE COUGHED AND CURRENTLY NOT WITH IT D/T AWAITING FOR [facility] TO PROVIDE THE RIGHT SIZE AND DR. BARRAGAN WITH IT FOR NOW.PT. WAS KEPT CLEAN AND DRY MUCH POSSIBLE.
[2019-06-27] MEDS: ACIDOPHILUS/BULGARICUS CHEW TAB GT SCH (21:39)
[2019-06-27] MEDS: ASCORBIC ACID 500 MG TABLET PO SCH (21:39)
[2019-06-27 23:33] VITALS: BP 123/67
[2019-06-28] MEDS: POLYVINYL ALCOHOL OPHT DROPS 15 ML BOTTLE EACHEYE SCH ×3 (05:37→21:07)
[2019-06-28] MEDS: PROTEIN SUPPLEMENT (PROSTAT) 30 ML LIQUID GT SCH ×3 (05:37→21:07)
[2019-06-28] MEDS: ARGININE/GLUTAMINE/CALCIUM BMB 1 EACH POWD.PACK GT SCH ×2 (05:37→17:17)
--- NOTE | 2019-06-28 07:30 | NUR ---
PT REC'D ON HT-50 VENT TOLERATING CURRENT VENT SETTINGS WELL, NO DISTRESS NOTED GIVEN IN AM REPORT. PT VENT'D VIA TRACHEOSTOMY, TUBE IN PLACE PATENT AND SECURE WITH TRACH TIE. INH NEB TX'S TO BE GIVEN PER MD ORDER AND SXN'ING TO BE DONE NEEDED. VENT ALARMS AUDIBLE, CHECKED AND RESET. BVM AND BACK-UP TRACH AT BEDSIDE.
[2019-06-28 08:01] LABS: BASOPHILS % (AUTO) 0.6 % (0.0-2.0); EOSINOPHILS # (AUTO) 0.2 K/uL (0.0-0.7); HEMATOCRIT 37.8 % (31.2-41.9); HEMOGLOBIN 12.4 g/dL (10.9-14.3); LYMPHOCYTES # (AUTO) 1.4 K/uL (20.0-40.0); LYMPHOCYTES % (AUTO) 31.5 % (20.5-51.5); MEAN CORPUSCULAR HEMOGLOBIN 30.4 uug (24.7-32.8); MEAN CORPUSCULAR HGB CONC 33 g/dL (32.3-35.6); MEAN CORPUSCULAR VOLUME 92.5 fL (75.5-95.3); MONOCYTES # (AUTO) 0.5 K/uL (2.0-10.0); MONOCYTES % (AUTO) 10.6 % (0.0-11.0); NEUTROPHILS # (AUTO) 2.3 K/uL (1.8-8.9); NEUTROPHILS % (AUTO) 53.3 % (38.5-71.5); PLATELET COUNT (AUTO) 88 K/uL (179-408); RED BLOOD CELL COUNT(AUTO) 4.08 MIL/uL (3.63-4.92); WHITE BLOOD COUNT (AUTO) 4.4 K/uL (3.8-11.8)
[2019-06-28 08:07] LABS: CARBON DIOXIDE 35 mmol/L (21-32); CHLORIDE 105 mmol/L (98-107); CREATININE 0.4 mg/dL (0.6-1.3); GLUCOSE 98 mg/dL (74-106); MAGNESIUM 2.2 mg/dL (1.8-2.4); PHOSPHOROUS 3.2 mg/dL (2.5-4.9); POTASSIUM 4.2 mmol/L (3.5-5.1); UREA NITROGEN, BLOOD 38 mg/dL (7-18)
[2019-06-28] MEDS: levETIRAcetam 500 MG/5 ML LIQUID UDC GT SCH ×2 (08:14→20:09)
[2019-06-28] MEDS: Z GUARD REMEDY PASTE 57 GM TUBE TOP SCH ×4 (08:15→20:10)
[2019-06-28] MEDS: FAMOTIDINE 20 MG TABLET GT SCH ×2 (08:15→20:08)
[2019-06-28] MEDS: DIGOXIN 125 MCG TABLET GT SCH (08:15)
[2019-06-28] MEDS: CLOTRIMAZOLE 1% CREAM 30 GM TUBE TP SCH ×2 (08:15→20:09)
[2019-06-28] MEDS: POTASSIUM CHLORIDE 40 MEQ/30 ML LIQUID UDC GT SCH (08:15)
[2019-06-28 08:45] LABS: BILIRUBIN,DIRECT 0.2 mg/dL (0.0-0.2); BILIRUBIN,TOTAL 0.3 mg/dL (0.2-1.0); TOTAL PROTEIN, SERUM 7.1 g/dL (6.4-8.2)
[2019-06-28] MEDS: HYDROGEN PEROXIDE 3% 118 ML BOTTLE TP SCH ×2 (08:52→20:09)
[2019-06-28 10:48] LABS: BAND % (MANUAL) 6 % (0-10); EOSINOPHILS % (MANUAL) 4 % (0-8); LYMPHOCYTES % (MANUAL) 33 % (20-40); MONOCYTES % (MANUAL) 8 % (2-10); NEUTROPHILS % (MANUAL) 48 % (42-75)
[2019-06-28 10:58] LABS: REACTIVE LYMPHOCYTES 1 % (0-0)
[2019-06-28] MEDS: ACIDOPHILUS/BULGARICUS CHEW TAB GT SCH (20:06)
[2019-06-28] MEDS: ASCORBIC ACID 500 MG TABLET PO SCH (20:08)
[2019-06-28 20:18] VITALS: BP 121/78
[2019-06-28] MEDS: GLUCERNA 1.2 1000ML LIQUID GT PRN (22:00)
[2019-06-29] MEDS: ARGININE/GLUTAMINE/CALCIUM BMB 1 EACH POWD.PACK GT SCH ×2 (05:23→17:09)
[2019-06-29] MEDS: POLYVINYL ALCOHOL OPHT DROPS 15 ML BOTTLE EACHEYE SCH ×3 (05:23→22:29)
[2019-06-29] MEDS: PROTEIN SUPPLEMENT (PROSTAT) 30 ML LIQUID GT SCH ×3 (05:23→22:29)
[2019-06-29 08:00] VITALS: BP 120/67
[2019-06-29] MEDS: CLOTRIMAZOLE 1% CREAM 30 GM TUBE TP SCH ×2 (08:23→20:40)
[2019-06-29] MEDS: FAMOTIDINE 20 MG TABLET GT SCH ×2 (08:23→20:40)
[2019-06-29] MEDS: Z GUARD REMEDY PASTE 57 GM TUBE TOP SCH ×4 (08:23→20:40)
[2019-06-29] MEDS: levETIRAcetam 500 MG/5 ML LIQUID UDC GT SCH ×2 (08:23→20:44)
[2019-06-29] MEDS: DIGOXIN 125 MCG TABLET GT SCH (08:23)
[2019-06-29] MEDS: POTASSIUM CHLORIDE 40 MEQ/30 ML LIQUID UDC GT SCH (08:23)
[2019-06-29] MEDS: HYDROGEN PEROXIDE 3% 118 ML BOTTLE TP SCH ×2 (09:00→20:40)
--- NOTE | 2019-06-29 10:05 | NUR ---
Still waiting on F/C from central supply. No stock at the moment waiting on order to arrive. MD is aware. Resident is urinating. no s/sx of urinary retention. Will continue to monitor.
--- NOTE | 2019-06-29 18:00 | NUR ---
PT. WAS SEEN AND EXAMINED BY EVI ESTEVEZ N.P. AND WITH СВЕТЛАНАO.
[2019-06-29 20:11] VITALS: BP 124/70
[2019-06-29] MEDS: ACIDOPHILUS/BULGARICUS CHEW TAB GT SCH (20:40)
[2019-06-29] MEDS: ASCORBIC ACID 500 MG TABLET PO SCH (20:40)
[2019-06-29] MEDS: GLUCERNA 1.2 1000ML LIQUID GT PRN (22:30)
[2019-06-30] MEDS: POLYVINYL ALCOHOL OPHT DROPS 15 ML BOTTLE EACHEYE SCH ×3 (05:03→22:20)
[2019-06-30] MEDS: ARGININE/GLUTAMINE/CALCIUM BMB 1 EACH POWD.PACK GT SCH ×2 (05:03→18:16)
[2019-06-30] MEDS: PROTEIN SUPPLEMENT (PROSTAT) 30 ML LIQUID GT SCH ×3 (05:03→22:20)
[2019-06-30 08:00] VITALS: BP 110/61
[2019-06-30] MEDS: levETIRAcetam 500 MG/5 ML LIQUID UDC GT SCH ×2 (08:26→20:21)
[2019-06-30] MEDS: FAMOTIDINE 20 MG TABLET GT SCH ×2 (08:27→20:21)
[2019-06-30] MEDS: POTASSIUM CHLORIDE 40 MEQ/30 ML LIQUID UDC GT SCH (08:27)
[2019-06-30] MEDS: DIGOXIN 125 MCG TABLET GT SCH (08:27)
[2019-06-30] MEDS: Z GUARD REMEDY PASTE 57 GM TUBE TOP SCH ×4 (08:28→20:21)
[2019-06-30] MEDS: HYDROGEN PEROXIDE 3% 118 ML BOTTLE TP SCH ×2 (09:00→21:36)
[2019-06-30] MEDS: CLOTRIMAZOLE 1% CREAM 30 GM TUBE TP SCH ×2 (09:30→20:21)
[2019-06-30] MEDS: ACIDOPHILUS/BULGARICUS CHEW TAB GT SCH (20:21)
[2019-06-30] MEDS: ASCORBIC ACID 500 MG TABLET PO SCH (20:21)
[2019-06-30 20:47] VITALS: BP 124/58
[2019-07-01] MEDS: POLYVINYL ALCOHOL OPHT DROPS 15 ML BOTTLE EACHEYE SCH ×3 (05:26→21:18)
[2019-07-01] MEDS: PROTEIN SUPPLEMENT (PROSTAT) 30 ML LIQUID GT SCH ×3 (05:26→21:18)
[2019-07-01] MEDS: GLUCERNA 1.2 1000ML LIQUID GT PRN (05:26)
[2019-07-01] MEDS: ARGININE/GLUTAMINE/CALCIUM BMB 1 EACH POWD.PACK GT SCH ×2 (05:26→18:35)
[2019-07-01 08:00] VITALS: BP 122/63
[2019-07-01] MEDS: levETIRAcetam 500 MG/5 ML LIQUID UDC GT SCH ×2 (08:52→20:45)
[2019-07-01] MEDS: POTASSIUM CHLORIDE 40 MEQ/30 ML LIQUID UDC GT SCH (08:53)
[2019-07-01] MEDS: DIGOXIN 125 MCG TABLET GT SCH (08:53)
[2019-07-01] MEDS: FAMOTIDINE 20 MG TABLET GT SCH ×2 (08:53→20:46)
[2019-07-01] MEDS: CLOTRIMAZOLE 1% CREAM 30 GM TUBE TP SCH ×2 (08:54→20:47)
[2019-07-01] MEDS: Z GUARD REMEDY PASTE 57 GM TUBE TOP SCH ×4 (08:54→20:46)
[2019-07-01] MEDS: HYDROGEN PEROXIDE 3% 118 ML BOTTLE TP SCH ×2 (09:00→20:37)
--- NOTE | 2019-07-01 20:10 | NUR ---
PT RECEIVED ON CONTINUOUS VENT, TRACH IN PLACE AND SECURED WITH TRACH TIE. BACK UP TRACH AND AMBU BAG AT BEDSIDE. TRACH CARE DONE. SUCTION PRN. VENT CHECKED AND RESET. ALARMS WORKING WELL AND AUDIBLE. NO DISTRESS NOTED AT THIS TIME. WILL CONTINUE TO MONITOR.
[2019-07-01 20:12] VITALS: BP 125/68
[2019-07-01] MEDS: ACIDOPHILUS/BULGARICUS CHEW TAB GT SCH (20:45)
[2019-07-01] MEDS: ASCORBIC ACID 500 MG TABLET PO SCH (20:46)
[2019-07-02] MEDS: POLYVINYL ALCOHOL OPHT DROPS 15 ML BOTTLE EACHEYE SCH ×3 (05:21→22:50)
[2019-07-02] MEDS: PROTEIN SUPPLEMENT (PROSTAT) 30 ML LIQUID GT SCH ×3 (05:21→22:51)
[2019-07-02] MEDS: ARGININE/GLUTAMINE/CALCIUM BMB 1 EACH POWD.PACK GT SCH ×2 (05:21→17:50)
[2019-07-02 08:00] VITALS: BP 119/55
[2019-07-02] MEDS: HYDROGEN PEROXIDE 3% 118 ML BOTTLE TP SCH ×2 (09:00→21:45)
[2019-07-02] MEDS: levETIRAcetam 500 MG/5 ML LIQUID UDC GT SCH ×2 (09:18→20:34)
[2019-07-02] MEDS: DIGOXIN 125 MCG TABLET GT SCH (09:18)
[2019-07-02] MEDS: Z GUARD REMEDY PASTE 57 GM TUBE TOP SCH ×4 (09:19→20:34)
[2019-07-02] MEDS: POTASSIUM CHLORIDE 40 MEQ/30 ML LIQUID UDC GT SCH (09:19)
[2019-07-02] MEDS: FAMOTIDINE 20 MG TABLET GT SCH ×2 (09:19→20:34)
[2019-07-02] MEDS: CLOTRIMAZOLE 1% CREAM 30 GM TUBE TP SCH ×2 (09:20→20:34)
--- NOTE | 2019-07-02 15:06 | NUR ---
Pharmacy Update from Today's 07/02/19 IDT Meeting VS: Temp 97.4 BP 119/55 HR 67 LABS: (from 06/28/19) Wbc 4.4 H/H 12.4/37.8 Plt 88 Na 142 K 4.2 Cl 105 CO2 35 BUN/Scr 38/0.4 BS 98 Ca 9.4 Phos 3.2 Mg 2.2 MEDICATION USE REVIEWED: > Pt not on any anti-psych medications > Pt now on Keppra 750mg q12hr since 04/29/19 per neuro; Obese CrCl estimation 87.9 ml/min, renal function ok for current dose. No seizures noted > Pt on famotidine 20mg q12hr, renal fxn ok for dose > Pt on digoxin 125mcg daily since 04/27/18. Last level on 02/04/19 was 0.6 (0.5-2). Within therapeutic range. > Pt on KCl 10meq daily, last K 4.0 PRN MED USAGE: (May) Tylenol for pain/temp used x0 MOM used x0 NEW ORDERS NOTED: > NA Patient was reviewed and discussed in depth with no medication issues noted at this time. No further recommendations per rx at this time as patient remains stable, will continue to monitor for now
--- NOTE | 2019-07-02 15:11 | NUR ---
INTERDISCIPLINARY PLAN OF CARE CONFERENCE was held today. Patient's family was unable to attend the meeting. Dr. Murguia and the Interdisciplinary Team reviewed the current plan of care in detail. RN reported on patient's medical condition and ongoing wound treatment. See RN IDT conference notes. No major changes in condition were reported. See also all other disciplines IDT notes and physician's progress notes for additional details.
[2019-07-02] MEDS: GLUCERNA 1.2 1000ML LIQUID GT PRN (17:50)
[2019-07-02 20:00] VITALS: BP 134/61
[2019-07-02] MEDS: ASCORBIC ACID 500 MG TABLET PO SCH (20:34)
[2019-07-02] MEDS: ACIDOPHILUS/BULGARICUS CHEW TAB GT SCH (20:34)
[2019-07-03] MEDS: POLYVINYL ALCOHOL OPHT DROPS 15 ML BOTTLE EACHEYE SCH ×3 (05:13→22:00)
[2019-07-03] MEDS: ARGININE/GLUTAMINE/CALCIUM BMB 1 EACH POWD.PACK GT SCH ×2 (05:13→17:20)
[2019-07-03] MEDS: PROTEIN SUPPLEMENT (PROSTAT) 30 ML LIQUID GT SCH ×3 (05:14→22:00)
[2019-07-03 08:30] VITALS: BP 116/59
[2019-07-03] MEDS: levETIRAcetam 500 MG/5 ML LIQUID UDC GT SCH ×2 (08:52→20:26)
[2019-07-03] MEDS: DIGOXIN 125 MCG TABLET GT SCH (08:55)
[2019-07-03] MEDS: POTASSIUM CHLORIDE 40 MEQ/30 ML LIQUID UDC GT SCH (08:56)
[2019-07-03] MEDS: Z GUARD REMEDY PASTE 57 GM TUBE TOP SCH ×4 (08:56→20:32)
[2019-07-03] MEDS: FAMOTIDINE 20 MG TABLET GT SCH ×2 (08:56→20:26)
[2019-07-03] MEDS: CLOTRIMAZOLE 1% CREAM 30 GM TUBE TP SCH ×2 (08:58→20:32)
[2019-07-03] MEDS: HYDROGEN PEROXIDE 3% 118 ML BOTTLE TP SCH ×2 (09:05→18:37)
--- NOTE | 2019-07-03 11:30 | NUR ---
Seen and examined by Dr Mixon ,no new orders noted.
[2019-07-03] MEDS: GLUCERNA 1.2 1000ML LIQUID GT PRN (17:20)
[2019-07-03] MEDS: ACIDOPHILUS/BULGARICUS CHEW TAB GT SCH (20:26)
[2019-07-03] MEDS: ASCORBIC ACID 500 MG TABLET PO SCH (20:26)
[2019-07-03 21:50] VITALS: BP 111/60
[2019-07-04] MEDS: POLYVINYL ALCOHOL OPHT DROPS 15 ML BOTTLE EACHEYE SCH ×3 (05:11→22:51)
[2019-07-04] MEDS: PROTEIN SUPPLEMENT (PROSTAT) 30 ML LIQUID GT SCH ×3 (05:11→22:51)
[2019-07-04] MEDS: ARGININE/GLUTAMINE/CALCIUM BMB 1 EACH POWD.PACK GT SCH ×2 (05:11→17:04)
[2019-07-04] MEDS: DIGOXIN 125 MCG TABLET GT SCH (08:21)
[2019-07-04] MEDS: FAMOTIDINE 20 MG TABLET GT SCH ×2 (08:21→20:03)
[2019-07-04] MEDS: POTASSIUM CHLORIDE 40 MEQ/30 ML LIQUID UDC GT SCH (08:21)
[2019-07-04] MEDS: levETIRAcetam 500 MG/5 ML LIQUID UDC GT SCH ×2 (08:21→20:03)
[2019-07-04] MEDS: Z GUARD REMEDY PASTE 57 GM TUBE TOP SCH ×3 (08:21→20:03)
[2019-07-04] MEDS: CLOTRIMAZOLE 1% CREAM 30 GM TUBE TP SCH (08:21)
[2019-07-04 08:30] VITALS: BP 130/69
[2019-07-04] MEDS: HYDROGEN PEROXIDE 3% 118 ML BOTTLE TP SCH ×2 (09:00→21:25)
[2019-07-04] MEDS: ASCORBIC ACID 500 MG TABLET PO SCH (20:03)
[2019-07-04] MEDS: ACIDOPHILUS/BULGARICUS CHEW TAB GT SCH (20:03)
[2019-07-04 20:44] VITALS: BP 112/64
[2019-07-05] MEDS: ARGININE/GLUTAMINE/CALCIUM BMB 1 EACH POWD.PACK GT SCH ×2 (05:17→17:17)
[2019-07-05] MEDS: POLYVINYL ALCOHOL OPHT DROPS 15 ML BOTTLE EACHEYE SCH ×3 (05:17→22:33)
[2019-07-05] MEDS: PROTEIN SUPPLEMENT (PROSTAT) 30 ML LIQUID GT SCH ×3 (05:17→22:33)
[2019-07-05] MEDS: levETIRAcetam 500 MG/5 ML LIQUID UDC GT SCH ×2 (08:54→20:08)
[2019-07-05] MEDS: DIGOXIN 125 MCG TABLET GT SCH (08:55)
[2019-07-05] MEDS: FAMOTIDINE 20 MG TABLET GT SCH ×2 (08:56→20:09)
[2019-07-05] MEDS: POTASSIUM CHLORIDE 40 MEQ/30 ML LIQUID UDC GT SCH (08:56)
[2019-07-05] MEDS: Z GUARD REMEDY PASTE 57 GM TUBE TOP SCH ×2 (08:56→20:09)
[2019-07-05] MEDS: HYDROGEN PEROXIDE 3% 118 ML BOTTLE TP SCH ×2 (09:00→20:09)
[2019-07-05 09:48] VITALS: BP 124/67
[2019-07-05] MEDS: ACIDOPHILUS/BULGARICUS CHEW TAB GT SCH (20:08)
[2019-07-05] MEDS: ASCORBIC ACID 500 MG TABLET PO SCH (20:09)
--- NOTE | 2019-07-05 20:10 | NUR ---
PT RECEIVED ON CONTINUOUS VENT, TRACH TUBE IN PLACE AND SECURED WITH TRACH TIE. BACK UP TRACH AND AMBU BAG AT BEDSIDE. TRACH CARE DONE. SUCTION PRN. VENT CHECKED AND RESET. ALARMS WORKING WELL AND AUDIBLE. NO DISTRESS NOTED AT THIS TIME. WILL CONTINUE TO MONITOR.
[2019-07-05 20:44] VITALS: BP 122/62
--- NOTE | 2019-07-06 02:30 | NUR ---
PATIENT CALLES CATH DISLODGED, CHANGE CALLES CATH TOLERATE WELL.
[2019-07-06] MEDS: POLYVINYL ALCOHOL OPHT DROPS 15 ML BOTTLE EACHEYE SCH ×3 (06:07→21:38)
[2019-07-06] MEDS: PROTEIN SUPPLEMENT (PROSTAT) 30 ML LIQUID GT SCH ×3 (06:07→21:44)
[2019-07-06] MEDS: ARGININE/GLUTAMINE/CALCIUM BMB 1 EACH POWD.PACK GT SCH ×2 (06:07→17:36)
[2019-07-06] MEDS: HYDROGEN PEROXIDE 3% 118 ML BOTTLE TP SCH ×2 (09:00→18:34)
[2019-07-06] MEDS: levETIRAcetam 500 MG/5 ML LIQUID UDC GT SCH ×2 (09:22→21:37)
[2019-07-06] MEDS: FAMOTIDINE 20 MG TABLET GT SCH ×2 (09:23→21:37)
[2019-07-06] MEDS: DIGOXIN 125 MCG TABLET GT SCH (09:23)
[2019-07-06] MEDS: POTASSIUM CHLORIDE 40 MEQ/30 ML LIQUID UDC GT SCH (09:23)
[2019-07-06] MEDS: Z GUARD REMEDY PASTE 57 GM TUBE TOP SCH ×2 (09:24→21:37)
--- NOTE | 2019-07-06 10:00 | NUR ---
Seen and examined by Dr Mixon ,no new orders noted.
[2019-07-06 11:31] VITALS: BP 119/55
[2019-07-06 20:50] VITALS: BP 133/70
[2019-07-06] MEDS: ACIDOPHILUS/BULGARICUS CHEW TAB GT SCH (21:37)
[2019-07-06] MEDS: ASCORBIC ACID 500 MG TABLET PO SCH (21:37)
[2019-07-07] MEDS: GLUCERNA 1.2 1000ML LIQUID GT PRN (00:45)
[2019-07-07] MEDS: ARGININE/GLUTAMINE/CALCIUM BMB 1 EACH POWD.PACK GT SCH ×2 (05:28→17:36)
[2019-07-07] MEDS: POLYVINYL ALCOHOL OPHT DROPS 15 ML BOTTLE EACHEYE SCH ×3 (05:28→21:23)
[2019-07-07] MEDS: PROTEIN SUPPLEMENT (PROSTAT) 30 ML LIQUID GT SCH ×3 (05:28→21:23)
[2019-07-07 08:30] VITALS: BP 112/57
[2019-07-07] MEDS: HYDROGEN PEROXIDE 3% 118 ML BOTTLE TP SCH ×2 (09:00→21:50)
[2019-07-07] MEDS: levETIRAcetam 500 MG/5 ML LIQUID UDC GT SCH ×2 (09:11→21:22)
[2019-07-07] MEDS: FAMOTIDINE 20 MG TABLET GT SCH ×2 (09:13→21:22)
[2019-07-07] MEDS: DIGOXIN 125 MCG TABLET GT SCH (09:13)
[2019-07-07] MEDS: POTASSIUM CHLORIDE 40 MEQ/30 ML LIQUID UDC GT SCH (09:14)
[2019-07-07] MEDS: Z GUARD REMEDY PASTE 57 GM TUBE TOP SCH ×2 (09:15→21:22)
[2019-07-07 21:04] VITALS: BP 134/84
[2019-07-07] MEDS: ASCORBIC ACID 500 MG TABLET PO SCH (21:22)
[2019-07-07] MEDS: ACIDOPHILUS/BULGARICUS CHEW TAB GT SCH (21:22)
[2019-07-08] MEDS: GLUCERNA 1.2 1000ML LIQUID GT PRN (00:45)
[2019-07-08] MEDS: ARGININE/GLUTAMINE/CALCIUM BMB 1 EACH POWD.PACK GT SCH ×2 (05:00→18:04)
[2019-07-08] MEDS: POLYVINYL ALCOHOL OPHT DROPS 15 ML BOTTLE EACHEYE SCH ×3 (05:00→22:59)
[2019-07-08] MEDS: PROTEIN SUPPLEMENT (PROSTAT) 30 ML LIQUID GT SCH ×3 (05:00→22:59)
[2019-07-08 08:30] VITALS: BP 106/70
[2019-07-08] MEDS: levETIRAcetam 500 MG/5 ML LIQUID UDC GT SCH ×2 (08:35→20:19)
[2019-07-08] MEDS: POTASSIUM CHLORIDE 40 MEQ/30 ML LIQUID UDC GT SCH (08:36)
[2019-07-08] MEDS: DIGOXIN 125 MCG TABLET GT SCH (08:36)
[2019-07-08] MEDS: FAMOTIDINE 20 MG TABLET GT SCH ×2 (08:36→20:19)
[2019-07-08] MEDS: Z GUARD REMEDY PASTE 57 GM TUBE TOP SCH ×2 (08:36→20:20)
[2019-07-08] MEDS: HYDROGEN PEROXIDE 3% 118 ML BOTTLE TP SCH ×2 (09:00→21:31)
--- NOTE | 2019-07-08 11:56 | NUR ---
Seen by Xena Rose with no new orders.
--- NOTE | 2019-07-08 12:00 | NUR ---
central supplied was notified of air mattress no working property,they stated that it will be replace. will continue monitoring.
[2019-07-08] MEDS: ACIDOPHILUS/BULGARICUS CHEW TAB GT SCH (20:19)
[2019-07-08] MEDS: ASCORBIC ACID 500 MG TABLET PO SCH (20:19)
[2019-07-08] MEDS: COD LIVER OIL/ZINC OXIDE OINT 113 GM TUBE TP SCH (20:20)
[2019-07-08] MEDS: TRIAMCINOLONE ACET 0.1% CREAM 15 GM TUBE TP SCH (20:20)
[2019-07-08] MEDS: NYSTATIN CREAM 30 GM TUBE TP SCH (20:20)
[2019-07-08 21:24] VITALS: BP 109/60
[2019-07-09] MEDS: POLYVINYL ALCOHOL OPHT DROPS 15 ML BOTTLE EACHEYE SCH ×3 (05:42→21:17)
[2019-07-09] MEDS: ARGININE/GLUTAMINE/CALCIUM BMB 1 EACH POWD.PACK GT SCH ×2 (05:43→17:26)
[2019-07-09] MEDS: PROTEIN SUPPLEMENT (PROSTAT) 30 ML LIQUID GT SCH ×3 (05:43→21:17)
[2019-07-09 06:37] LABS: BASOPHILS % (AUTO) 0.7 % (0.0-2.0); EOSINOPHILS # (AUTO) 0.1 K/uL (0.0-0.7); EOSINOPHILS % (AUTO) 3.3 % (0.0-7.0); HEMATOCRIT 38.2 % (31.2-41.9); HEMOGLOBIN 12.5 g/dL (10.9-14.3); LYMPHOCYTES # (AUTO) 1.1 K/uL (20.0-40.0); LYMPHOCYTES % (AUTO) 34.5 % (20.5-51.5); MEAN CORPUSCULAR HEMOGLOBIN 30.4 uug (24.7-32.8); MEAN CORPUSCULAR HGB CONC 33 g/dL (32.3-35.6); MEAN CORPUSCULAR VOLUME 92.9 fL (75.5-95.3); MONOCYTES # (AUTO) 0.3 K/uL (2.0-10.0); MONOCYTES % (AUTO) 10.1 % (0.0-11.0); NEUTROPHILS # (AUTO) 1.7 K/uL (1.8-8.9); NEUTROPHILS % (AUTO) 51.4 % (38.5-71.5); PLATELET COUNT (AUTO) 69 K/uL (179-408); RED BLOOD CELL COUNT(AUTO) 4.12 MIL/uL (3.63-4.92); WHITE BLOOD COUNT (AUTO) 3.3 K/uL (3.8-11.8)
[2019-07-09 06:51] LABS: CARBON DIOXIDE 32 mmol/L (21-32); CHLORIDE 104 mmol/L (98-107); CREATININE 0.4 mg/dL (0.6-1.3); GLUCOSE 112 mg/dL (74-106); MAGNESIUM 2.1 mg/dL (1.8-2.4); PHOSPHOROUS 3.5 mg/dL (2.5-4.9); POTASSIUM 4.1 mmol/L (3.5-5.1); UREA NITROGEN, BLOOD 29 mg/dL (7-18)
[2019-07-09] MEDS: GLUCERNA 1.2 1000ML LIQUID GT PRN (07:05)
[2019-07-09 07:41] LABS: BAND % (MANUAL) 4 % (0-10); EOSINOPHILS % (MANUAL) 3 % (0-8); LYMPHOCYTES % (MANUAL) 30 % (20-40); MONOCYTES % (MANUAL) 11 % (2-10); NEUTROPHILS % (MANUAL) 52 % (42-75)
[2019-07-09] MEDS: HYDROGEN PEROXIDE 3% 118 ML BOTTLE TP SCH ×2 (08:03→18:36)
[2019-07-09] MEDS: levETIRAcetam 500 MG/5 ML LIQUID UDC GT SCH ×2 (08:44→21:16)
[2019-07-09] MEDS: DIGOXIN 125 MCG TABLET GT SCH (08:50)
[2019-07-09] MEDS: FAMOTIDINE 20 MG TABLET GT SCH ×2 (08:50→21:16)
[2019-07-09] MEDS: Z GUARD REMEDY PASTE 57 GM TUBE TOP SCH ×2 (08:51→21:17)
[2019-07-09] MEDS: POTASSIUM CHLORIDE 40 MEQ/30 ML LIQUID UDC GT SCH (08:51)
[2019-07-09] MEDS: TRIAMCINOLONE ACET 0.1% CREAM 15 GM TUBE TP SCH ×2 (09:54→21:17)
[2019-07-09] MEDS: COD LIVER OIL/ZINC OXIDE OINT 113 GM TUBE TP SCH ×2 (09:54→21:17)
[2019-07-09] MEDS: NYSTATIN CREAM 30 GM TUBE TP SCH ×2 (09:55→21:17)
[2019-07-09 11:39] VITALS: BP 99/41
--- NOTE | 2019-07-09 15:25 | NUR ---
This and Subacute Wildlife Ecology Professor Christian Shelton called patient's daughter Sheeba [phone] and informed her that per advisement from [facility], [facility], and CDC, visitation restrictions must continue to remain in place for all snf care facilities in order to protect the health and safety of residents and staff. Therefore [facility] will continue to restrict all visitations, until further notice. Sheeba expressed understanding.
--- NOTE | 2019-07-09 15:50 | NUR ---
air mattress pump was today, working well.
[2019-07-09 21:03] VITALS: BP 118/64
[2019-07-09] MEDS: ACIDOPHILUS/BULGARICUS CHEW TAB GT SCH (21:16)
[2019-07-09] MEDS: ASCORBIC ACID 500 MG TABLET PO SCH (21:17)
[2019-07-10] MEDS: ARGININE/GLUTAMINE/CALCIUM BMB 1 EACH POWD.PACK GT SCH ×2 (05:46→17:54)
[2019-07-10] MEDS: PROTEIN SUPPLEMENT (PROSTAT) 30 ML LIQUID GT SCH ×3 (05:46→21:47)
[2019-07-10] MEDS: POLYVINYL ALCOHOL OPHT DROPS 15 ML BOTTLE EACHEYE SCH ×3 (05:46→21:47)
[2019-07-10 08:03] VITALS: BP 123/57
[2019-07-10] MEDS: levETIRAcetam 500 MG/5 ML LIQUID UDC GT SCH ×2 (09:05→21:45)
[2019-07-10] MEDS: Z GUARD REMEDY PASTE 57 GM TUBE TOP SCH ×2 (09:06→21:46)
[2019-07-10] MEDS: FAMOTIDINE 20 MG TABLET GT SCH ×2 (09:06→21:45)
[2019-07-10] MEDS: POTASSIUM CHLORIDE 40 MEQ/30 ML LIQUID UDC GT SCH (09:06)
[2019-07-10] MEDS: DIGOXIN 125 MCG TABLET GT SCH (09:06)
[2019-07-10] MEDS: HYDROGEN PEROXIDE 3% 118 ML BOTTLE TP SCH ×2 (09:38→21:05)
[2019-07-10] MEDS: TRIAMCINOLONE ACET 0.1% CREAM 15 GM TUBE TP SCH ×2 (10:00→21:46)
[2019-07-10] MEDS: COD LIVER OIL/ZINC OXIDE OINT 113 GM TUBE TP SCH ×2 (10:00→21:46)
[2019-07-10] MEDS: NYSTATIN CREAM 30 GM TUBE TP SCH ×2 (10:00→21:46)
[2019-07-10] MEDS: GLUCERNA 1.2 1000ML LIQUID GT PRN (12:24)
--- NOTE | 2019-07-10 14:00 | NUR ---
Sterile Proc Tech care done by Dr Tristan.
[2019-07-10] MEDS: ACETAMINOPHEN 650 MG/20 ML UDC- SA PATIENTS-PAIN ONLY GT PRN (17:30)
[2019-07-10 20:00] VITALS: BP 99/51
[2019-07-10] MEDS: ACIDOPHILUS/BULGARICUS CHEW TAB GT SCH (21:44)
[2019-07-10] MEDS: ASCORBIC ACID 500 MG TABLET PO SCH (21:46)
[2019-07-11] MEDS: PROTEIN SUPPLEMENT (PROSTAT) 30 ML LIQUID GT SCH ×3 (05:02→22:01)
[2019-07-11] MEDS: POLYVINYL ALCOHOL OPHT DROPS 15 ML BOTTLE EACHEYE SCH ×3 (05:02→22:01)
[2019-07-11] MEDS: ARGININE/GLUTAMINE/CALCIUM BMB 1 EACH POWD.PACK GT SCH ×2 (05:02→17:09)
[2019-07-11] MEDS: HYDROGEN PEROXIDE 3% 118 ML BOTTLE TP SCH ×2 (09:11→20:20)
[2019-07-11] MEDS: DIGOXIN 125 MCG TABLET GT SCH (09:45)
[2019-07-11] MEDS: levETIRAcetam 500 MG/5 ML LIQUID UDC GT SCH ×2 (09:45→22:00)
[2019-07-11] MEDS: FAMOTIDINE 20 MG TABLET GT SCH ×2 (09:45→21:00)
[2019-07-11] MEDS: Z GUARD REMEDY PASTE 57 GM TUBE TOP SCH ×2 (09:45→21:00)
[2019-07-11] MEDS: POTASSIUM CHLORIDE 40 MEQ/30 ML LIQUID UDC GT SCH (09:45)
[2019-07-11] MEDS: NYSTATIN CREAM 30 GM TUBE TP SCH ×2 (09:46→21:00)
[2019-07-11] MEDS: COD LIVER OIL/ZINC OXIDE OINT 113 GM TUBE TP SCH ×2 (09:46→21:00)
[2019-07-11] MEDS: TRIAMCINOLONE ACET 0.1% CREAM 15 GM TUBE TP SCH ×2 (09:46→21:00)
[2019-07-11 10:27] VITALS: BP 133/73
[2019-07-11] MEDS: GLUCERNA 1.2 1000ML LIQUID GT PRN (13:45)
--- NOTE | 2019-07-11 14:00 | NUR ---
NEW ORDER WAS CARRIED OUT FROM DR. MART FOR REG MEDIA TRAFFIC MANAGER FOR WT LOSS EVAL.
--- NOTE | 2019-07-11 17:24 | NUR ---
DR. VALLE WAS AWARE OF WT LOSS AND ALSO REG. ACQUISITIONS ANALYST .
--- NOTE | 2019-07-11 18:49 | NUR ---
SEEN BY DR. VALLE WITH NNO.
[2019-07-11 20:00] VITALS: BP 114/66
[2019-07-11] MEDS: ASCORBIC ACID 500 MG TABLET PO SCH (21:00)
[2019-07-11] MEDS: ACIDOPHILUS/BULGARICUS CHEW TAB GT SCH (21:59)
[2019-07-12] MEDS: POLYVINYL ALCOHOL OPHT DROPS 15 ML BOTTLE EACHEYE SCH ×3 (05:17→21:26)
[2019-07-12] MEDS: PROTEIN SUPPLEMENT (PROSTAT) 30 ML LIQUID GT SCH ×3 (05:17→21:27)
[2019-07-12] MEDS: ARGININE/GLUTAMINE/CALCIUM BMB 1 EACH POWD.PACK GT SCH ×2 (05:17→17:26)
[2019-07-12] MEDS: DIGOXIN 125 MCG TABLET GT SCH (08:27)
[2019-07-12] MEDS: levETIRAcetam 500 MG/5 ML LIQUID UDC GT SCH ×2 (08:27→21:19)
[2019-07-12] MEDS: FAMOTIDINE 20 MG TABLET GT SCH ×2 (08:28→21:19)
[2019-07-12] MEDS: POTASSIUM CHLORIDE 40 MEQ/30 ML LIQUID UDC GT SCH (08:28)
[2019-07-12] MEDS: TRIAMCINOLONE ACET 0.1% CREAM 15 GM TUBE TP SCH ×2 (08:29→21:26)
[2019-07-12] MEDS: NYSTATIN CREAM 30 GM TUBE TP SCH ×2 (08:29→21:26)
[2019-07-12] MEDS: Z GUARD REMEDY PASTE 57 GM TUBE TOP SCH ×2 (08:29→21:26)
[2019-07-12] MEDS: COD LIVER OIL/ZINC OXIDE OINT 113 GM TUBE TP SCH ×2 (08:29→21:26)
[2019-07-12] MEDS: HYDROGEN PEROXIDE 3% 118 ML BOTTLE TP SCH ×2 (09:13→21:54)
[2019-07-12 10:28] VITALS: BP 126/78
--- NOTE | 2019-07-12 17:00 | NUR ---
SEEN BY HAJA SHELDON AND WITH СВЕТЛАНАO.
[2019-07-12] MEDS: GLUCERNA 1.2 1000ML LIQUID GT PRN (17:26)
[2019-07-12 20:00] VITALS: BP 115/65
[2019-07-12] MEDS: ACIDOPHILUS/BULGARICUS CHEW TAB GT SCH (21:19)
[2019-07-12] MEDS: ASCORBIC ACID 500 MG TABLET PO SCH (21:25)
[2019-07-13] MEDS: POLYVINYL ALCOHOL OPHT DROPS 15 ML BOTTLE EACHEYE SCH ×3 (05:15→21:55)
[2019-07-13] MEDS: ARGININE/GLUTAMINE/CALCIUM BMB 1 EACH POWD.PACK GT SCH ×2 (05:15→17:58)
[2019-07-13] MEDS: PROTEIN SUPPLEMENT (PROSTAT) 30 ML LIQUID GT SCH ×3 (05:15→21:55)
[2019-07-13] MEDS: HYDROGEN PEROXIDE 3% 118 ML BOTTLE TP SCH ×2 (08:25→21:28)
[2019-07-13] MEDS: DIGOXIN 125 MCG TABLET GT SCH (09:00)
[2019-07-13] MEDS: TRIAMCINOLONE ACET 0.1% CREAM 15 GM TUBE TP SCH ×2 (09:00→21:54)
[2019-07-13] MEDS: Z GUARD REMEDY PASTE 57 GM TUBE TOP SCH ×2 (09:00→21:54)
[2019-07-13] MEDS: POTASSIUM CHLORIDE 40 MEQ/30 ML LIQUID UDC GT SCH (09:00)
[2019-07-13] MEDS: FAMOTIDINE 20 MG TABLET GT SCH ×2 (09:00→21:54)
[2019-07-13] MEDS: NYSTATIN CREAM 30 GM TUBE TP SCH ×2 (09:00→21:54)
[2019-07-13] MEDS: levETIRAcetam 500 MG/5 ML LIQUID UDC GT SCH ×2 (09:00→21:54)
[2019-07-13] MEDS: COD LIVER OIL/ZINC OXIDE OINT 113 GM TUBE TP SCH ×2 (09:00→21:54)
[2019-07-13 11:17] VITALS: BP 134/76
[2019-07-13] MEDS: GLUCERNA 1.2 1000ML LIQUID GT PRN (18:00)
[2019-07-13 20:42] VITALS: BP 123/66
[2019-07-13] MEDS: ASCORBIC ACID 500 MG TABLET PO SCH (21:54)
[2019-07-13] MEDS: ACIDOPHILUS/BULGARICUS CHEW TAB GT SCH (21:54)
[2019-07-14] MEDS: PROTEIN SUPPLEMENT (PROSTAT) 30 ML LIQUID GT SCH ×3 (05:12→21:21)
[2019-07-14] MEDS: ARGININE/GLUTAMINE/CALCIUM BMB 1 EACH POWD.PACK GT SCH ×2 (05:12→17:18)
[2019-07-14] MEDS: POLYVINYL ALCOHOL OPHT DROPS 15 ML BOTTLE EACHEYE SCH ×3 (05:12→21:21)
[2019-07-14 08:00] VITALS: BP 120/61
[2019-07-14] MEDS: levETIRAcetam 500 MG/5 ML LIQUID UDC GT SCH ×2 (08:14→20:02)
[2019-07-14] MEDS: Z GUARD REMEDY PASTE 57 GM TUBE TOP SCH ×2 (08:15→20:02)
[2019-07-14] MEDS: DIGOXIN 125 MCG TABLET GT SCH (08:15)
[2019-07-14] MEDS: FAMOTIDINE 20 MG TABLET GT SCH ×2 (08:15→20:02)
[2019-07-14] MEDS: POTASSIUM CHLORIDE 40 MEQ/30 ML LIQUID UDC GT SCH (08:15)
[2019-07-14] MEDS: COD LIVER OIL/ZINC OXIDE OINT 113 GM TUBE TP SCH ×2 (08:15→20:02)
[2019-07-14] MEDS: TRIAMCINOLONE ACET 0.1% CREAM 15 GM TUBE TP SCH ×2 (08:16→20:02)
[2019-07-14] MEDS: NYSTATIN CREAM 30 GM TUBE TP SCH ×2 (08:16→20:02)
[2019-07-14] MEDS: HYDROGEN PEROXIDE 3% 118 ML BOTTLE TP SCH ×2 (09:00→21:45)
[2019-07-14] MEDS: ACIDOPHILUS/BULGARICUS CHEW TAB GT SCH (20:01)
[2019-07-14] MEDS: ASCORBIC ACID 500 MG TABLET PO SCH (20:02)
[2019-07-14 21:06] VITALS: BP 115/68
[2019-07-15] MEDS: GLUCERNA 1.2 1000ML LIQUID GT PRN (00:59)
[2019-07-15] MEDS: PROTEIN SUPPLEMENT (PROSTAT) 30 ML LIQUID GT SCH ×3 (05:04→22:06)
[2019-07-15] MEDS: POLYVINYL ALCOHOL OPHT DROPS 15 ML BOTTLE EACHEYE SCH ×3 (05:04→22:06)
[2019-07-15] MEDS: ARGININE/GLUTAMINE/CALCIUM BMB 1 EACH POWD.PACK GT SCH ×2 (05:04→18:30)
[2019-07-15 08:00] VITALS: BP 114/57
[2019-07-15] MEDS: HYDROGEN PEROXIDE 3% 118 ML BOTTLE TP SCH ×2 (09:08→21:10)
[2019-07-15] MEDS: POTASSIUM CHLORIDE 40 MEQ/30 ML LIQUID UDC GT SCH (09:45)
[2019-07-15] MEDS: DIGOXIN 125 MCG TABLET GT SCH (09:45)
[2019-07-15] MEDS: FAMOTIDINE 20 MG TABLET GT SCH ×2 (09:45→21:48)
[2019-07-15] MEDS: Z GUARD REMEDY PASTE 57 GM TUBE TOP SCH ×2 (09:45→21:46)
[2019-07-15] MEDS: levETIRAcetam 500 MG/5 ML LIQUID UDC GT SCH ×2 (09:45→21:45)
[2019-07-15] MEDS: COD LIVER OIL/ZINC OXIDE OINT 113 GM TUBE TP SCH ×2 (09:45→21:46)
[2019-07-15] MEDS: NYSTATIN CREAM 30 GM TUBE TP SCH ×2 (09:46→21:46)
[2019-07-15] MEDS: TRIAMCINOLONE ACET 0.1% CREAM 15 GM TUBE TP SCH ×2 (09:46→21:46)
--- NOTE | 2019-07-15 13:59 | NUR ---
SEEN AND EXAMINED BY ROOPA Dixon AND WITH NNO.ALSO SEEN AND EAMINED BY DR. BEGUM AND WITH NEW ORDERS CARRIED OUT.
[2019-07-15] MEDS: ACETAMINOPHEN 650 MG/20 ML UDC- SA PATIENTS-FEVER ONLY GT PRN ×2 (18:22→23:46)
[2019-07-15 18:30] VITALS: BP 135/62
--- NOTE | 2019-07-15 18:39 | NUR ---
PT OBSERVED AT THIS TIME WITH FACE FLUSHED AND NOTED WITH ROOM TEMP HOT AND ENGINEERING WAS CALLED TO ADJUST IT AND BLANKETS WERE REMOVED AND V/S WERE CHECKED AND FOLLOW:TEMP. 102 F,HR 90X',RR 16X',B/P 135/62,O2 SAT 100%,P/A 0/10 .OBSERVED ON LOWER ABDOMEN PETECHIA RASH (HX OF THROMBOCYTOPENIA)DR. MART WAS CALLED AND AWARE AND WITH NEW ORDERS CARRIED OUT AND PT'S DTR. WAS NOTIFIED AND IN AGREEMENT WITH ORDERS.CLEANING SPECIALIST TRACI AND CNO CHRISTIE AWARE ALSO NURSING TOP PRINTING PRESS OPERATOR ZHOU .WILL CONT. TO MONITOR AND TO HAVE PRECAUTIONS.
--- NOTE | 2019-07-15 19:07 | NUR ---
Pt has 102.9F temperature with flushed skin. Cooling measures applied. Flushed water as ordered. Tylenol 650mg/20.3 ml via GT. Medication tolerated well. Rechecked temperature after 30 minutes 102.0F. Will continue to closely monitor. Will endorsed to the next shift.
--- NOTE | 2019-07-15 19:25 | NUR ---
Rechecked temperature again this time 100.9. Continue cooling measures. Sputum collected by RT and sent to lab as ordered.
[2019-07-15] MEDS: ACIDOPHILUS/BULGARICUS CHEW TAB GT SCH (21:44)
[2019-07-15] MEDS: ASCORBIC ACID 500 MG TABLET PO SCH (21:46)
[2019-07-15 21:57] VITALS: BP 113/47
--- NOTE | 2019-07-15 23:46 | NUR ---
Temperature rechecked 98.5 orally. Continue cooling measures. Continue to monitor.
[2019-07-16] MEDS: GLUCERNA 1.2 1000ML LIQUID GT PRN (01:42)
[2019-07-16 03:48] LABS: *BILIRUBIN,URIN NEGATIVE (NEGATIVE); *BLOOD, URINE 2+ (NEGATIVE); *CLARITY,URINE TURBID (CLEAR); *COLOR,URINE YELLOW (YELLOW); *KETONES,URINE NEGATIVE (NEGATIVE); LEUKOCYTE ESTERASE ,URINE 2+ (NEGATIVE); NITRITE, URINE NEGATIVE (NEGATIVE); PH,URINE >=9.0 (5.0-8.0); UGLUCOSE NEGATIVE (NEGATIVE)
[2019-07-16 03:53] LABS: BACTERIA,URINE MODERATE /HPF (NONE SEEN); SQUAMOUS EPITHELIAL CELL,UR FEW /HPF (NONE SEEN); TRIPLE PHOSPHATE CRYSTAL,UR MANY /HPF (NONE SEEN); URINE AMORPHOUS PHOSPHATES MANY /HPF
[2019-07-16] MEDS: POLYVINYL ALCOHOL OPHT DROPS 15 ML BOTTLE EACHEYE SCH ×3 (05:26→22:05)
[2019-07-16] MEDS: ARGININE/GLUTAMINE/CALCIUM BMB 1 EACH POWD.PACK GT SCH ×2 (05:26→17:38)
[2019-07-16] MEDS: PROTEIN SUPPLEMENT (PROSTAT) 30 ML LIQUID GT SCH ×3 (05:26→22:05)
[2019-07-16] MEDS: ACETAMINOPHEN 650 MG/20 ML UDC- SA PATIENTS-FEVER ONLY GT PRN (05:29)
--- NOTE | 2019-07-16 05:48 | NUR ---
Latest temp 99.4 oral. Continue cooling measure. Made comfortable. All needs attended and met. Continue to monitor.
[2019-07-16 08:00] VITALS: BP 106/51
[2019-07-16 08:05] LABS: BASOPHILS % (AUTO) 0.3 % (0.0-2.0); EOSINOPHILS # (AUTO) 0.1 K/uL (0.0-0.7); EOSINOPHILS % (AUTO) 0.6 % (0.0-7.0); HEMOGLOBIN 11.8 g/dL (10.9-14.3); LYMPHOCYTES % (AUTO) 10.8 % (20.5-51.5); MEAN CORPUSCULAR HEMOGLOBIN 30.5 uug (24.7-32.8); MEAN CORPUSCULAR HGB CONC 33 g/dL (32.3-35.6); MEAN CORPUSCULAR VOLUME 92.7 fL (75.5-95.3); MONOCYTES # (AUTO) 0.6 K/uL (2.0-10.0); MONOCYTES % (AUTO) 6.4 % (0.0-11.0); NEUTROPHILS # (AUTO) 7.4 K/uL (1.8-8.9); NEUTROPHILS % (AUTO) 81.9 % (38.5-71.5); PLATELET COUNT (AUTO) 64 K/uL (179-408); RED BLOOD CELL COUNT(AUTO) 3.88 MIL/uL (3.63-4.92)
[2019-07-16 08:14] LABS: ALANINE AMINOTRANSFERASE 32 U/L (14-59); ALKALINE PHOSPHATASE 234 U/L (50-136); ASPARTATE AMINOTRANSFERASE 37 U/L (15-37); BILIRUBIN,TOTAL 0.8 mg/dL (0.2-1.0); CARBON DIOXIDE 34 mmol/L (21-32); CHLORIDE 100 mmol/L (98-107); CREATININE 0.6 mg/dL (0.6-1.3); GLUCOSE 124 mg/dL (74-106); MAGNESIUM 2.1 mg/dL (1.8-2.4); PHOSPHOROUS 3.1 mg/dL (2.5-4.9); POTASSIUM 3.6 mmol/L (3.5-5.1); UREA NITROGEN, BLOOD 47 mg/dL (7-18)
[2019-07-16 08:40] LABS: THYROID STIMULATING HORMONE 1.444 mIU/mL (0.358-3.740)
[2019-07-16] MEDS: FAMOTIDINE 20 MG TABLET GT SCH ×2 (08:57→20:33)
[2019-07-16] MEDS: levETIRAcetam 500 MG/5 ML LIQUID UDC GT SCH ×2 (08:57→20:33)
[2019-07-16] MEDS: DIGOXIN 125 MCG TABLET GT SCH (08:57)
[2019-07-16] MEDS: POTASSIUM CHLORIDE 40 MEQ/30 ML LIQUID UDC GT SCH (08:58)
[2019-07-16] MEDS: Z GUARD REMEDY PASTE 57 GM TUBE TOP SCH ×2 (08:58→20:34)
[2019-07-16] MEDS: COD LIVER OIL/ZINC OXIDE OINT 113 GM TUBE TP SCH ×2 (08:59→20:34)
[2019-07-16] MEDS: NYSTATIN CREAM 30 GM TUBE TP SCH ×2 (08:59→20:35)
[2019-07-16] MEDS: TRIAMCINOLONE ACET 0.1% CREAM 15 GM TUBE TP SCH ×2 (08:59→20:35)
[2019-07-16 09:11] LABS: BAND % (MANUAL) 1 % (0-10); EOSINOPHILS % (MANUAL) 2 % (0-8); LYMPHOCYTES % (MANUAL) 17 % (20-40); MONOCYTES % (MANUAL) 5 % (2-10); NEUTROPHILS % (MANUAL) 75 % (42-75)
[2019-07-16] MEDS: HYDROGEN PEROXIDE 3% 118 ML BOTTLE TP SCH ×2 (09:25→20:47)
[2019-07-16] MEDS: ACETAMINOPHEN 650 MG/20 ML UDC- SA PATIENTS-PAIN ONLY GT PRN (12:30)
[2019-07-16 12:32] VITALS: BP 120/54
--- NOTE | 2019-07-16 13:00 | NUR ---
Seen and examined by STONEY MARIE, no new orders.
--- NOTE | 2019-07-16 17:03 | NUR ---
Seen and examined by Dr Calzada with new orders noted and carried out,Dr Mixon aware of the new orders.
[2019-07-16 18:17] VITALS: BP 121/60
[2019-07-16 20:12] VITALS: BP 134/71
[2019-07-16] MEDS: ACIDOPHILUS/BULGARICUS CHEW TAB GT SCH (20:33)
[2019-07-16] MEDS: ASCORBIC ACID 500 MG TABLET PO SCH (20:34)
[2019-07-16] MEDS: CEFEPIME HCL 1 G in IV DEXTROSE 5% 50 ML IV SCH (22:12)
--- NOTE | 2019-07-16 22:49 | NUR ---
Temperature is 98.1 at this time, on Cefepime IV for fever, no adverse reactions noted. Noted with lower abdominal area redness and warm to touch, handled very gently, trach is intact and connected to vent, no respiratory distress noted, 02 sat is 99%, cintron catheter is draining well to yellow urine, good jaswant care rendered, kept patient clean and comfortable.
[2019-07-17] MEDS: GLUCERNA 1.2 1000ML LIQUID GT PRN (03:42)
[2019-07-17] MEDS: PROTEIN SUPPLEMENT (PROSTAT) 30 ML LIQUID GT SCH ×3 (06:04→22:11)
[2019-07-17] MEDS: POLYVINYL ALCOHOL OPHT DROPS 15 ML BOTTLE EACHEYE SCH ×3 (06:04→22:11)
[2019-07-17] MEDS: ARGININE/GLUTAMINE/CALCIUM BMB 1 EACH POWD.PACK GT SCH ×2 (06:04→18:18)
[2019-07-17] MEDS: CEFEPIME HCL 1 G in IV DEXTROSE 5% 50 ML IV SCH ×3 (06:10→21:20)
[2019-07-17 06:42] LABS: BASOPHILS % (AUTO) 0.3 % (0.0-2.0); EOSINOPHILS # (AUTO) 0.1 K/uL (0.0-0.7); EOSINOPHILS % (AUTO) 1.5 % (0.0-7.0); HEMATOCRIT 36.3 % (31.2-41.9); HEMOGLOBIN 11.9 g/dL (10.9-14.3); LYMPHOCYTES # (AUTO) 0.8 K/uL (20.0-40.0); LYMPHOCYTES % (AUTO) 11.3 % (20.5-51.5); MEAN CORPUSCULAR HEMOGLOBIN 30.6 uug (24.7-32.8); MEAN CORPUSCULAR HGB CONC 33 g/dL (32.3-35.6); MEAN CORPUSCULAR VOLUME 93.5 fL (75.5-95.3); MONOCYTES # (AUTO) 0.4 K/uL (2.0-10.0); MONOCYTES % (AUTO) 5.6 % (0.0-11.0); NEUTROPHILS # (AUTO) 5.7 K/uL (1.8-8.9); NEUTROPHILS % (AUTO) 81.3 % (38.5-71.5); PLATELET COUNT (AUTO) 64 K/uL (179-408); RED BLOOD CELL COUNT(AUTO) 3.89 MIL/uL (3.63-4.92)
[2019-07-17 08:00] VITALS: BP 103/59
[2019-07-17 08:07] LABS: EOSINOPHILS % (MANUAL) 2 % (0-8); LYMPHOCYTES % (MANUAL) 17 % (20-40); MONOCYTES % (MANUAL) 5 % (2-10); NEUTROPHILS % (MANUAL) 76 % (42-75)
[2019-07-17] MEDS: levETIRAcetam 500 MG/5 ML LIQUID UDC GT SCH ×2 (08:38→20:25)
[2019-07-17] MEDS: FAMOTIDINE 20 MG TABLET GT SCH ×2 (08:40→20:25)
[2019-07-17] MEDS: Z GUARD REMEDY PASTE 57 GM TUBE TOP SCH ×2 (08:40→20:25)
[2019-07-17] MEDS: DIGOXIN 125 MCG TABLET GT SCH (08:40)
[2019-07-17] MEDS: POTASSIUM CHLORIDE 40 MEQ/30 ML LIQUID UDC GT SCH (08:40)
[2019-07-17] MEDS: HYDROGEN PEROXIDE 3% 118 ML BOTTLE TP SCH ×2 (09:30→21:19)
[2019-07-17] MEDS: COD LIVER OIL/ZINC OXIDE OINT 113 GM TUBE TP SCH ×2 (09:45→20:25)
[2019-07-17] MEDS: TRIAMCINOLONE ACET 0.1% CREAM 15 GM TUBE TP SCH ×2 (09:45→20:25)
[2019-07-17] MEDS: NYSTATIN CREAM 30 GM TUBE TP SCH ×2 (09:45→20:26)
--- NOTE | 2019-07-17 10:00 | NUR ---
Pt received awake,no respiratory distress noted,ventilator dependant,suctioned with small to moderated amount of pale yellowish secretions,temp at 0800 am was 99.7.on cooling measures.recheck at this time 97,6,on ivatb with cefepine 1 gm every 8 hours x 5 days,no adverse reaction noted,wound care for sacral area done as ordered,has f/c in place draining well yellow color urine.
--- NOTE | 2019-07-17 11:00 | NUR ---
Seen and examined by Dr Mixon with new orders noted.
--- NOTE | 2019-07-17 16:00 | NUR ---
temp 98.5,Seen and examined by Dr Huerta with no new orders ,call the lab regarding the procalcitonin results,Left message to Dr Huerta regarding the procalcitonin result 2.34.pt continue on close observation Sheeba pt's daughter aware of the patient condition and agreed with the plan of care.
--- NOTE | 2019-07-17 18:44 | NUR ---
No episodes of elevated temperature 97.8 NO discomfort noted. Pt remains on Cefepin 1G via IV as no adverse reactions noted. Continue monitoring lower ABD redness warm to touch.
[2019-07-17] MEDS: ASCORBIC ACID 500 MG TABLET PO SCH (20:25)
[2019-07-17] MEDS: ACIDOPHILUS/BULGARICUS CHEW TAB GT SCH (20:25)
[2019-07-17 22:16] VITALS: BP 124/53
[2019-07-18 01:23] VITALS: BP 139/74
[2019-07-18] MEDS: CEFEPIME HCL 1 G in IV DEXTROSE 5% 50 ML IV SCH ×3 (05:31→22:16)
[2019-07-18] MEDS: POLYVINYL ALCOHOL OPHT DROPS 15 ML BOTTLE EACHEYE SCH ×3 (05:50→22:15)
[2019-07-18] MEDS: PROTEIN SUPPLEMENT (PROSTAT) 30 ML LIQUID GT SCH ×3 (05:50→22:15)
[2019-07-18] MEDS: ARGININE/GLUTAMINE/CALCIUM BMB 1 EACH POWD.PACK GT SCH ×2 (05:50→17:53)
[2019-07-18 06:12] VITALS: BP 112/59
[2019-07-18 08:30] VITALS: BP 123/70
[2019-07-18] MEDS: levETIRAcetam 500 MG/5 ML LIQUID UDC GT SCH ×2 (08:41→20:24)
[2019-07-18] MEDS: FAMOTIDINE 20 MG TABLET GT SCH ×2 (08:42→20:23)
[2019-07-18] MEDS: DIGOXIN 125 MCG TABLET GT SCH (08:42)
[2019-07-18] MEDS: POTASSIUM CHLORIDE 40 MEQ/30 ML LIQUID UDC GT SCH (08:43)
[2019-07-18] MEDS: Z GUARD REMEDY PASTE 57 GM TUBE TOP SCH ×2 (08:43→20:24)
[2019-07-18] MEDS: TRIAMCINOLONE ACET 0.1% CREAM 15 GM TUBE TP SCH ×2 (09:00→20:24)
[2019-07-18] MEDS: COD LIVER OIL/ZINC OXIDE OINT 113 GM TUBE TP SCH ×2 (09:00→20:24)
[2019-07-18] MEDS: HYDROGEN PEROXIDE 3% 118 ML BOTTLE TP SCH ×2 (09:09→20:34)
[2019-07-18] MEDS: NYSTATIN CREAM 30 GM TUBE TP SCH ×2 (09:30→20:27)
--- NOTE | 2019-07-18 18:44 | NUR ---
Noted lower abd fold rash improved and smaller in size, warm to touch. Continue to monitor closely.
[2019-07-18 20:10] VITALS: BP 116/66
[2019-07-18] MEDS: ASCORBIC ACID 500 MG TABLET PO SCH (20:23)
[2019-07-18] MEDS: ACIDOPHILUS/BULGARICUS CHEW TAB GT SCH (20:23)
[2019-07-19] MEDS: ARGININE/GLUTAMINE/CALCIUM BMB 1 EACH POWD.PACK GT SCH ×2 (05:25→17:25)
[2019-07-19] MEDS: POLYVINYL ALCOHOL OPHT DROPS 15 ML BOTTLE EACHEYE SCH ×3 (05:25→21:22)
[2019-07-19] MEDS: PROTEIN SUPPLEMENT (PROSTAT) 30 ML LIQUID GT SCH ×3 (05:25→21:22)
[2019-07-19] MEDS: CEFEPIME HCL 1 G in IV DEXTROSE 5% 50 ML IV SCH ×3 (05:25→21:22)
[2019-07-19 08:30] VITALS: BP 120/64
[2019-07-19] MEDS: levETIRAcetam 500 MG/5 ML LIQUID UDC GT SCH ×2 (08:45→21:19)
[2019-07-19] MEDS: DIGOXIN 125 MCG TABLET GT SCH (08:46)
[2019-07-19] MEDS: COD LIVER OIL/ZINC OXIDE OINT 113 GM TUBE TP SCH ×2 (08:47→21:21)
[2019-07-19] MEDS: Z GUARD REMEDY PASTE 57 GM TUBE TOP SCH ×2 (08:47→21:21)
[2019-07-19] MEDS: FAMOTIDINE 20 MG TABLET GT SCH ×2 (08:47→21:20)
[2019-07-19] MEDS: POTASSIUM CHLORIDE 40 MEQ/30 ML LIQUID UDC GT SCH (08:47)
[2019-07-19] MEDS: TRIAMCINOLONE ACET 0.1% CREAM 15 GM TUBE TP SCH ×2 (08:48→21:21)
[2019-07-19] MEDS: NYSTATIN CREAM 30 GM TUBE TP SCH ×2 (08:48→21:22)
[2019-07-19] MEDS: ACETAMINOPHEN 650 MG/20 ML UDC- SA PATIENTS-PAIN ONLY GT PRN (08:49)
[2019-07-19] MEDS: HYDROGEN PEROXIDE 3% 118 ML BOTTLE TP SCH ×2 (09:15→21:06)
[2019-07-19] MEDS: GLUCERNA 1.2 1000ML LIQUID GT PRN (17:26)
[2019-07-19 20:26] VITALS: BP 144/69
[2019-07-19] MEDS: ACIDOPHILUS/BULGARICUS CHEW TAB GT SCH (21:19)
[2019-07-19] MEDS: ASCORBIC ACID 500 MG TABLET PO SCH (21:21)
--- NOTE | 2019-07-20 01:26 | NUR ---
continue on cefepime 1 gm iv for fever, no adverse reaction noted, afebrile, no respiratory distress noted.
[2019-07-20] MEDS: POLYVINYL ALCOHOL OPHT DROPS 15 ML BOTTLE EACHEYE SCH ×3 (05:37→21:01)
[2019-07-20] MEDS: ARGININE/GLUTAMINE/CALCIUM BMB 1 EACH POWD.PACK GT SCH ×2 (05:38→18:26)
[2019-07-20] MEDS: CEFEPIME HCL 1 G in IV DEXTROSE 5% 50 ML IV SCH ×3 (05:38→21:34)
[2019-07-20] MEDS: PROTEIN SUPPLEMENT (PROSTAT) 30 ML LIQUID GT SCH ×3 (05:38→21:01)
[2019-07-20 08:00] VITALS: BP 120/67
[2019-07-20] MEDS: HYDROGEN PEROXIDE 3% 118 ML BOTTLE TP SCH ×2 (08:21→20:31)
[2019-07-20] MEDS: COD LIVER OIL/ZINC OXIDE OINT 113 GM TUBE TP SCH ×2 (09:00→21:01)
[2019-07-20] MEDS: Z GUARD REMEDY PASTE 57 GM TUBE TOP SCH ×2 (09:00→21:01)
[2019-07-20] MEDS: DIGOXIN 125 MCG TABLET GT SCH (09:00)
[2019-07-20] MEDS: FAMOTIDINE 20 MG TABLET GT SCH ×2 (09:00→21:01)
[2019-07-20] MEDS: levETIRAcetam 500 MG/5 ML LIQUID UDC GT SCH ×2 (09:00→21:01)
[2019-07-20] MEDS: POTASSIUM CHLORIDE 40 MEQ/30 ML LIQUID UDC GT SCH (09:00)
[2019-07-20] MEDS: TRIAMCINOLONE ACET 0.1% CREAM 15 GM TUBE TP SCH ×2 (09:00→21:01)
[2019-07-20] MEDS: NYSTATIN CREAM 30 GM TUBE TP SCH ×2 (09:00→21:01)
[2019-07-20] MEDS: GLUCERNA 1.2 1000ML LIQUID GT PRN (18:26)
[2019-07-20 20:18] VITALS: BP 133/67
[2019-07-20] MEDS: ACIDOPHILUS/BULGARICUS CHEW TAB GT SCH (21:01)
[2019-07-20] MEDS: ASCORBIC ACID 500 MG TABLET PO SCH (21:01)
[2019-07-21] MEDS: CEFEPIME HCL 1 G in IV DEXTROSE 5% 50 ML IV SCH ×3 (05:31→22:14)
[2019-07-21] MEDS: POLYVINYL ALCOHOL OPHT DROPS 15 ML BOTTLE EACHEYE SCH ×3 (05:46→21:11)
[2019-07-21] MEDS: ARGININE/GLUTAMINE/CALCIUM BMB 1 EACH POWD.PACK GT SCH ×2 (05:46→17:16)
[2019-07-21] MEDS: PROTEIN SUPPLEMENT (PROSTAT) 30 ML LIQUID GT SCH ×3 (05:46→21:11)
--- NOTE | 2019-07-21 05:54 | NUR ---
CONTINUE ON CEFEPIME IV FOR FEVER, AFEBRILE, NO ADVERSE REACTION NOTED, NO RESPIRATORY DISTRESS NOTED.
[2019-07-21] MEDS: HYDROGEN PEROXIDE 3% 118 ML BOTTLE TP SCH ×2 (07:05→21:02)
[2019-07-21 08:01] VITALS: BP 137/73
[2019-07-21] MEDS: FAMOTIDINE 20 MG TABLET GT SCH ×2 (09:12→21:10)
[2019-07-21] MEDS: POTASSIUM CHLORIDE 40 MEQ/30 ML LIQUID UDC GT SCH (09:12)
[2019-07-21] MEDS: levETIRAcetam 500 MG/5 ML LIQUID UDC GT SCH ×2 (09:12→21:10)
[2019-07-21] MEDS: DIGOXIN 125 MCG TABLET GT SCH (09:12)
[2019-07-21] MEDS: COD LIVER OIL/ZINC OXIDE OINT 113 GM TUBE TP SCH ×2 (09:13→21:11)
[2019-07-21] MEDS: TRIAMCINOLONE ACET 0.1% CREAM 15 GM TUBE TP SCH ×2 (09:13→21:11)
[2019-07-21] MEDS: NYSTATIN CREAM 30 GM TUBE TP SCH ×2 (09:13→21:11)
[2019-07-21] MEDS: ACETAMINOPHEN 650 MG/20 ML UDC- SA PATIENTS-PAIN ONLY GT PRN (09:13)
[2019-07-21] MEDS: Z GUARD REMEDY PASTE 57 GM TUBE TOP SCH ×2 (09:13→21:10)
--- NOTE | 2019-07-21 15:27 | NUR ---
Continue on Cefepine ivatb,no adverse reaction noted,therapy will be completed today at 2200,iv site on the r arm intact.
[2019-07-21] MEDS: GLUCERNA 1.2 1000ML LIQUID GT PRN (17:27)
[2019-07-21 20:37] VITALS: BP 125/57
[2019-07-21] MEDS: ACIDOPHILUS/BULGARICUS CHEW TAB GT SCH (21:10)
[2019-07-21] MEDS: ASCORBIC ACID 500 MG TABLET PO SCH (21:10)
--- NOTE | 2019-07-21 22:30 | NUR ---
Last dose of Cefepime IV antibiotic was given, no adverse reactions noted. Afebrile, temperature is 98.5, connected to vent on prescribed settings, no respiratory distress noted, turned and repositioned, kept clean and comfortable.
[2019-07-22] MEDS: ARGININE/GLUTAMINE/CALCIUM BMB 1 EACH POWD.PACK GT SCH ×2 (05:11→17:34)
[2019-07-22] MEDS: PROTEIN SUPPLEMENT (PROSTAT) 30 ML LIQUID GT SCH ×3 (05:11→21:43)
[2019-07-22] MEDS: POLYVINYL ALCOHOL OPHT DROPS 15 ML BOTTLE EACHEYE SCH ×3 (05:11→21:43)
[2019-07-22] MEDS: HYDROGEN PEROXIDE 3% 118 ML BOTTLE TP SCH ×2 (08:04→20:26)
[2019-07-22] MEDS: levETIRAcetam 500 MG/5 ML LIQUID UDC GT SCH ×2 (08:18→20:25)
[2019-07-22] MEDS: FAMOTIDINE 20 MG TABLET GT SCH ×2 (08:19→20:25)
[2019-07-22] MEDS: DIGOXIN 125 MCG TABLET GT SCH (08:19)
[2019-07-22] MEDS: POTASSIUM CHLORIDE 40 MEQ/30 ML LIQUID UDC GT SCH (08:19)
[2019-07-22] MEDS: Z GUARD REMEDY PASTE 57 GM TUBE TOP SCH ×2 (08:20→20:26)
[2019-07-22] MEDS: NYSTATIN CREAM 30 GM TUBE TP SCH ×2 (08:20→20:26)
[2019-07-22] MEDS: COD LIVER OIL/ZINC OXIDE OINT 113 GM TUBE TP SCH ×2 (08:20→20:26)
[2019-07-22] MEDS: TRIAMCINOLONE ACET 0.1% CREAM 15 GM TUBE TP SCH ×2 (08:20→20:26)
--- NOTE | 2019-07-22 10:26 | NUR ---
Seen by Dr. Pipe Md notified lab requesting sputum to be send again, per Md there's no need to send another sputum sample.
[2019-07-22 10:42] VITALS: BP 118/67
[2019-07-22 20:06] VITALS: BP 139/74
[2019-07-22] MEDS: ACIDOPHILUS/BULGARICUS CHEW TAB GT SCH (20:24)
[2019-07-22] MEDS: ASCORBIC ACID 500 MG TABLET PO SCH (20:26)
[2019-07-22] MEDS: GLUCERNA 1.2 1000ML LIQUID GT PRN (22:07)
[2019-07-23] MEDS: PROTEIN SUPPLEMENT (PROSTAT) 30 ML LIQUID GT SCH ×3 (06:14→22:00)
[2019-07-23] MEDS: ARGININE/GLUTAMINE/CALCIUM BMB 1 EACH POWD.PACK GT SCH ×2 (06:14→17:15)
[2019-07-23] MEDS: POLYVINYL ALCOHOL OPHT DROPS 15 ML BOTTLE EACHEYE SCH ×3 (06:14→22:00)
[2019-07-23 08:00] VITALS: BP 127/64
[2019-07-23] MEDS: levETIRAcetam 500 MG/5 ML LIQUID UDC GT SCH ×2 (08:36→20:18)
[2019-07-23] MEDS: DIGOXIN 125 MCG TABLET GT SCH (08:37)
[2019-07-23] MEDS: FAMOTIDINE 20 MG TABLET GT SCH ×2 (08:37→20:19)
[2019-07-23] MEDS: NYSTATIN CREAM 30 GM TUBE TP SCH ×2 (08:38→20:21)
[2019-07-23] MEDS: Z GUARD REMEDY PASTE 57 GM TUBE TOP SCH ×2 (08:38→20:21)
[2019-07-23] MEDS: POTASSIUM CHLORIDE 40 MEQ/30 ML LIQUID UDC GT SCH (08:38)
[2019-07-23] MEDS: TRIAMCINOLONE ACET 0.1% CREAM 15 GM TUBE TP SCH ×2 (08:38→20:21)
[2019-07-23] MEDS: COD LIVER OIL/ZINC OXIDE OINT 113 GM TUBE TP SCH ×2 (08:38→20:21)
[2019-07-23] MEDS: HYDROGEN PEROXIDE 3% 118 ML BOTTLE TP SCH ×2 (09:00→20:08)
--- NOTE | 2019-07-23 12:07 | NUR ---
Seen and examined by Aylin Quintero,with new orders noted and carried out.
--- NOTE | 2019-07-23 18:21 | NUR ---
Noted slight amount of blood around f/c site, kept clean and dry, continue monitoring.
[2019-07-23 20:09] VITALS: BP 124/75
[2019-07-23] MEDS: ACIDOPHILUS/BULGARICUS CHEW TAB GT SCH (20:18)
[2019-07-23] MEDS: ASCORBIC ACID 500 MG TABLET PO SCH (20:20)
[2019-07-24] MEDS: GLUCERNA 1.2 1000ML LIQUID GT PRN (04:00)
[2019-07-24] MEDS: POLYVINYL ALCOHOL OPHT DROPS 15 ML BOTTLE EACHEYE SCH ×3 (05:46→21:55)
[2019-07-24] MEDS: PROTEIN SUPPLEMENT (PROSTAT) 30 ML LIQUID GT SCH ×3 (05:46→21:55)
[2019-07-24] MEDS: ARGININE/GLUTAMINE/CALCIUM BMB 1 EACH POWD.PACK GT SCH ×2 (05:46→18:03)
[2019-07-24 08:30] VITALS: BP 132/57
[2019-07-24] MEDS: levETIRAcetam 500 MG/5 ML LIQUID UDC GT SCH ×2 (08:51→20:08)
[2019-07-24] MEDS: FAMOTIDINE 20 MG TABLET GT SCH ×2 (08:52→20:08)
[2019-07-24] MEDS: POTASSIUM CHLORIDE 40 MEQ/30 ML LIQUID UDC GT SCH (08:52)
[2019-07-24] MEDS: DIGOXIN 125 MCG TABLET GT SCH (08:52)
[2019-07-24] MEDS: Z GUARD REMEDY PASTE 57 GM TUBE TOP SCH ×2 (08:54→20:10)
[2019-07-24] MEDS: NORMAL SALINE NASAL 45 ML BOTTLE NS SCH (08:54)
[2019-07-24] MEDS: TRIAMCINOLONE ACET 0.1% CREAM 15 GM TUBE TP SCH ×2 (08:55→20:10)
[2019-07-24] MEDS: NYSTATIN CREAM 30 GM TUBE TP SCH ×2 (08:55→20:10)
[2019-07-24] MEDS: COD LIVER OIL/ZINC OXIDE OINT 113 GM TUBE TP SCH ×2 (08:55→20:10)
[2019-07-24] MEDS: HYDROGEN PEROXIDE 3% 118 ML BOTTLE TP SCH ×2 (09:00→21:34)
--- NOTE | 2019-07-24 09:30 | NUR ---
patient in bed, slightly amount of blood noted around f/c site , will continue monitoring.
[2019-07-24 19:55] VITALS: BP 134/82
[2019-07-24] MEDS: ACIDOPHILUS/BULGARICUS CHEW TAB GT SCH (20:08)
[2019-07-24] MEDS: ASCORBIC ACID 500 MG TABLET PO SCH (20:09)
--- NOTE | 2019-07-25 01:22 | NUR ---
PT ON CONT HT 50 VENT WITH DAVON TRACH IN PLACE AND SECURED, WITH SAME CURRENT VENT SETTINGS, PT DOES ASSIST AT TIMES, TRACH CARE DONE , SUCTIONED LIGHT PALE yell tinge secretions, and suction mouth with rachael harmon well, no vent changes made, pt stable, all vent alarms good, D JANNETTE PETERSP Addendum: 07/25/19 at 0125 by CHRISTIE BHATIA RT Amended: Links added.
[2019-07-25] MEDS: PROTEIN SUPPLEMENT (PROSTAT) 30 ML LIQUID GT SCH ×3 (05:36→22:14)
[2019-07-25] MEDS: ARGININE/GLUTAMINE/CALCIUM BMB 1 EACH POWD.PACK GT SCH ×2 (05:36→17:11)
[2019-07-25] MEDS: POLYVINYL ALCOHOL OPHT DROPS 15 ML BOTTLE EACHEYE SCH ×3 (05:36→22:14)
[2019-07-25] MEDS: levETIRAcetam 500 MG/5 ML LIQUID UDC GT SCH ×2 (08:06→20:19)
[2019-07-25] MEDS: DIGOXIN 125 MCG TABLET GT SCH (08:07)
[2019-07-25] MEDS: FAMOTIDINE 20 MG TABLET GT SCH ×2 (08:07→20:19)
[2019-07-25] MEDS: NORMAL SALINE NASAL 45 ML BOTTLE NS SCH (08:07)
[2019-07-25] MEDS: COD LIVER OIL/ZINC OXIDE OINT 113 GM TUBE TP SCH ×2 (08:07→20:20)
[2019-07-25] MEDS: Z GUARD REMEDY PASTE 57 GM TUBE TOP SCH ×2 (08:07→20:20)
[2019-07-25] MEDS: POTASSIUM CHLORIDE 40 MEQ/30 ML LIQUID UDC GT SCH (08:07)
[2019-07-25] MEDS: TRIAMCINOLONE ACET 0.1% CREAM 15 GM TUBE TP SCH ×2 (09:00→20:20)
[2019-07-25] MEDS: NYSTATIN CREAM 30 GM TUBE TP SCH ×2 (09:00→20:20)
[2019-07-25] MEDS: HYDROGEN PEROXIDE 3% 118 ML BOTTLE TP SCH ×2 (09:17→21:11)
[2019-07-25 11:01] VITALS: BP 126/65
--- NOTE | 2019-07-25 18:58 | NUR ---
SEEN AND EXAMINED BY DR. VALLE WITH NEW ORDERS NOTED AND CARRIED OUT.
[2019-07-25] MEDS: ACIDOPHILUS/BULGARICUS CHEW TAB GT SCH (20:19)
[2019-07-25] MEDS: ASCORBIC ACID 500 MG TABLET PO SCH (20:20)
[2019-07-25 23:14] VITALS: BP 144/67
[2019-07-26] MEDS: POLYVINYL ALCOHOL OPHT DROPS 15 ML BOTTLE EACHEYE SCH ×3 (05:54→21:44)
[2019-07-26] MEDS: PROTEIN SUPPLEMENT (PROSTAT) 30 ML LIQUID GT SCH ×3 (05:54→21:44)
[2019-07-26] MEDS: GLUCERNA 1.2 1000ML LIQUID GT PRN (05:54)
[2019-07-26] MEDS: ARGININE/GLUTAMINE/CALCIUM BMB 1 EACH POWD.PACK GT SCH ×2 (05:54→17:12)
[2019-07-26] MEDS: DIGOXIN 125 MCG TABLET GT SCH (08:34)
[2019-07-26] MEDS: levETIRAcetam 500 MG/5 ML LIQUID UDC GT SCH ×2 (08:34→21:43)
[2019-07-26] MEDS: NYSTATIN CREAM 30 GM TUBE TP SCH ×2 (08:35→21:44)
[2019-07-26] MEDS: COD LIVER OIL/ZINC OXIDE OINT 113 GM TUBE TP SCH ×2 (08:35→21:43)
[2019-07-26] MEDS: TRIAMCINOLONE ACET 0.1% CREAM 15 GM TUBE TP SCH ×2 (08:35→21:44)
[2019-07-26] MEDS: FAMOTIDINE 20 MG TABLET GT SCH ×2 (08:35→21:43)
[2019-07-26] MEDS: Z GUARD REMEDY PASTE 57 GM TUBE TOP SCH ×2 (08:35→21:43)
[2019-07-26] MEDS: NORMAL SALINE NASAL 45 ML BOTTLE NS SCH (08:35)
[2019-07-26] MEDS: POTASSIUM CHLORIDE 40 MEQ/30 ML LIQUID UDC GT SCH (08:35)
[2019-07-26] MEDS: HYDROGEN PEROXIDE 3% 118 ML BOTTLE TP SCH ×2 (09:00→21:47)
[2019-07-26 11:24] VITALS: BP 126/65
[2019-07-26 17:40] LABS: BASOPHILS % (AUTO) 0.4 % (0.0-2.0); EOSINOPHILS # (AUTO) 0.1 K/uL (0.0-0.7); EOSINOPHILS % (AUTO) 2.2 % (0.0-7.0); HEMATOCRIT 37.6 % (31.2-41.9); HEMOGLOBIN 12.5 g/dL (10.9-14.3); LYMPHOCYTES # (AUTO) 1.3 K/uL (20.0-40.0); LYMPHOCYTES % (AUTO) 29.1 % (20.5-51.5); MEAN CORPUSCULAR HEMOGLOBIN 30.9 uug (24.7-32.8); MEAN CORPUSCULAR HGB CONC 33 g/dL (32.3-35.6); MONOCYTES # (AUTO) 0.3 K/uL (2.0-10.0); MONOCYTES % (AUTO) 7.2 % (0.0-11.0); NEUTROPHILS # (AUTO) 2.8 K/uL (1.8-8.9); NEUTROPHILS % (AUTO) 61.1 % (38.5-71.5); PLATELET COUNT (AUTO) 109 K/uL (179-408); RED BLOOD CELL COUNT(AUTO) 4.05 MIL/uL (3.63-4.92); WHITE BLOOD COUNT (AUTO) 4.6 K/uL (3.8-11.8)
[2019-07-26 17:45] LABS: CARBON DIOXIDE 27 mmol/L (21-32); CHLORIDE 108 mmol/L (98-107); CREATININE 0.5 mg/dL (0.6-1.3); GLUCOSE 112 mg/dL (74-106); MAGNESIUM 2.1 mg/dL (1.8-2.4); POTASSIUM 3.7 mmol/L (3.5-5.1); UREA NITROGEN, BLOOD 36 mg/dL (7-18)
[2019-07-26] MEDS: ASCORBIC ACID 500 MG TABLET PO SCH (21:43)
[2019-07-26] MEDS: ACIDOPHILUS/BULGARICUS CHEW TAB GT SCH (21:43)
[2019-07-26 22:04] VITALS: BP 130/66
[2019-07-27] MEDS: POLYVINYL ALCOHOL OPHT DROPS 15 ML BOTTLE EACHEYE SCH ×3 (05:38→22:00)
[2019-07-27] MEDS: PROTEIN SUPPLEMENT (PROSTAT) 30 ML LIQUID GT SCH ×3 (05:38→22:00)
[2019-07-27] MEDS: ARGININE/GLUTAMINE/CALCIUM BMB 1 EACH POWD.PACK GT SCH ×2 (05:39→17:09)
[2019-07-27] MEDS: levETIRAcetam 500 MG/5 ML LIQUID UDC GT SCH ×2 (08:51→20:07)
[2019-07-27] MEDS: FAMOTIDINE 20 MG TABLET GT SCH ×2 (08:52→20:07)
[2019-07-27] MEDS: POTASSIUM CHLORIDE 40 MEQ/30 ML LIQUID UDC GT SCH (08:52)
[2019-07-27] MEDS: TRIAMCINOLONE ACET 0.1% CREAM 15 GM TUBE TP SCH ×2 (08:52→20:08)
[2019-07-27] MEDS: NORMAL SALINE NASAL 45 ML BOTTLE NS SCH (08:52)
[2019-07-27] MEDS: DIGOXIN 125 MCG TABLET GT SCH (08:52)
[2019-07-27] MEDS: NYSTATIN CREAM 30 GM TUBE TP SCH ×2 (08:52→20:08)
[2019-07-27] MEDS: Z GUARD REMEDY PASTE 57 GM TUBE TOP SCH ×2 (08:52→20:07)
[2019-07-27] MEDS: COD LIVER OIL/ZINC OXIDE OINT 113 GM TUBE TP SCH ×2 (08:52→20:08)
[2019-07-27] MEDS: HYDROGEN PEROXIDE 3% 118 ML BOTTLE TP SCH ×2 (09:00→20:08)
[2019-07-27 10:46] VITALS: BP 119/58
--- NOTE | 2019-07-27 19:57 | NUR ---
Pt received on HT-50 ventilator with the following settings of AC-12, Vt-550, PEEP+5, FIO2-30%, trached with Shiley#6 DCT trach, which is in the place and secure. No respiratory distress noted. Airway care done, pt responded to physical stimuli. HME and Sx Quispe changed. Resus. bag and back up trach at bedside. Vent and alarms checked and reset. Outside alarm cable broken, smelter charger Tic notified.
[2019-07-27 20:03] VITALS: BP 132/69
[2019-07-27] MEDS: ACIDOPHILUS/BULGARICUS CHEW TAB GT SCH (20:07)
[2019-07-27] MEDS: ASCORBIC ACID 500 MG TABLET PO SCH (20:07)
[2019-07-28] MEDS: POLYVINYL ALCOHOL OPHT DROPS 15 ML BOTTLE EACHEYE SCH ×3 (05:20→21:24)
[2019-07-28] MEDS: ARGININE/GLUTAMINE/CALCIUM BMB 1 EACH POWD.PACK GT SCH ×2 (05:20→17:54)
[2019-07-28] MEDS: PROTEIN SUPPLEMENT (PROSTAT) 30 ML LIQUID GT SCH ×3 (05:20→21:25)
[2019-07-28 08:00] VITALS: BP 136/77
[2019-07-28] MEDS: levETIRAcetam 500 MG/5 ML LIQUID UDC GT SCH ×2 (08:08→20:32)
[2019-07-28] MEDS: DIGOXIN 125 MCG TABLET GT SCH (08:15)
[2019-07-28] MEDS: POTASSIUM CHLORIDE 40 MEQ/30 ML LIQUID UDC GT SCH (08:16)
[2019-07-28] MEDS: NORMAL SALINE NASAL 45 ML BOTTLE NS SCH (08:16)
[2019-07-28] MEDS: FAMOTIDINE 20 MG TABLET GT SCH ×2 (08:16→20:32)
[2019-07-28] MEDS: Z GUARD REMEDY PASTE 57 GM TUBE TOP SCH ×2 (08:17→20:33)
[2019-07-28] MEDS: GLUCERNA 1.2 1000ML LIQUID GT PRN (08:17)
[2019-07-28] MEDS: HYDROGEN PEROXIDE 3% 118 ML BOTTLE TP SCH ×2 (08:31→20:49)
[2019-07-28] MEDS: NYSTATIN CREAM 30 GM TUBE TP SCH ×2 (09:45→20:33)
[2019-07-28] MEDS: TRIAMCINOLONE ACET 0.1% CREAM 15 GM TUBE TP SCH ×2 (09:45→20:33)
[2019-07-28] MEDS: COD LIVER OIL/ZINC OXIDE OINT 113 GM TUBE TP SCH ×2 (09:45→20:33)
--- NOTE | 2019-07-28 19:48 | NUR ---
Pt received on HT-50 ventilator with the following settings of AC-12, Vt-550, PEEP+5, FIO2-30%, trached with Shiley#6 DCT trach, which is in the place and secure. No s/s of respiratory distress noted. Airway care done, pt responded to physical stimuli. HME changed. Resus. bag and back up trach at bedside. Vent and alarms checked and reset. Outside alarm cable broken, propellant charge loader Jackie notified.
[2019-07-28 20:00] VITALS: BP 129/59
[2019-07-28] MEDS: ACIDOPHILUS/BULGARICUS CHEW TAB GT SCH (20:32)
[2019-07-28] MEDS: ASCORBIC ACID 500 MG TABLET PO SCH (20:33)
[2019-07-29] MEDS: PROTEIN SUPPLEMENT (PROSTAT) 30 ML LIQUID GT SCH ×3 (05:07→22:09)
[2019-07-29] MEDS: POLYVINYL ALCOHOL OPHT DROPS 15 ML BOTTLE EACHEYE SCH ×3 (05:07→22:09)
[2019-07-29] MEDS: ARGININE/GLUTAMINE/CALCIUM BMB 1 EACH POWD.PACK GT SCH ×2 (05:07→17:55)
[2019-07-29 07:03] LABS: EOSINOPHILS # (AUTO) 0.1 K/uL (0.0-0.7); HEMOGLOBIN 12.3 g/dL (10.9-14.3); NEUTROPHILS # (AUTO) 2.8 K/uL (1.8-8.9)
[2019-07-29 07:10] LABS: ALANINE AMINOTRANSFERASE 20 U/L (14-59); ALKALINE PHOSPHATASE 244 U/L (50-136); ASPARTATE AMINOTRANSFERASE 26 U/L (15-37); BILIRUBIN,TOTAL 0.4 mg/dL (0.2-1.0); CARBON DIOXIDE 31 mmol/L (21-32); CHLORIDE 110 mmol/L (98-107); CREATININE 0.4 mg/dL (0.6-1.3); GLUCOSE 99 mg/dL (74-106); POTASSIUM 4.2 mmol/L (3.5-5.1); TOTAL PROTEIN, SERUM 7.6 g/dL (6.4-8.2); UREA NITROGEN, BLOOD 44 mg/dL (7-18)
[2019-07-29 07:18] LABS: BASOPHILS % (AUTO) 0.6 % (0.0-2.0); EOSINOPHILS % (AUTO) 2.2 % (0.0-7.0); HEMATOCRIT 37.5 % (31.2-41.9); LYMPHOCYTES # (AUTO) 1.3 K/uL (20.0-40.0); LYMPHOCYTES % (AUTO) 27.6 % (20.5-51.5); MEAN CORPUSCULAR HEMOGLOBIN 30.8 uug (24.7-32.8); MEAN CORPUSCULAR HGB CONC 33 g/dL (32.3-35.6); MEAN CORPUSCULAR VOLUME 94.1 fL (75.5-95.3); MONOCYTES # (AUTO) 0.5 K/uL (2.0-10.0); NEUTROPHILS % (AUTO) 58.6 % (38.5-71.5); RED BLOOD CELL COUNT(AUTO) 3.99 MIL/uL (3.63-4.92); WHITE BLOOD COUNT (AUTO) 4.8 K/uL (3.8-11.8)
[2019-07-29 07:19] LABS: PLATELET COUNT (AUTO) 94 K/uL (179-408)
[2019-07-29 08:00] VITALS: BP 119/71
[2019-07-29] MEDS: levETIRAcetam 500 MG/5 ML LIQUID UDC GT SCH ×2 (08:48→20:40)
[2019-07-29] MEDS: POTASSIUM CHLORIDE 40 MEQ/30 ML LIQUID UDC GT SCH (08:49)
[2019-07-29] MEDS: FAMOTIDINE 20 MG TABLET GT SCH ×2 (08:49→20:40)
[2019-07-29] MEDS: DIGOXIN 125 MCG TABLET GT SCH (08:49)
[2019-07-29] MEDS: NORMAL SALINE NASAL 45 ML BOTTLE NS SCH (08:49)
[2019-07-29 08:50] LABS: BAND % (MANUAL) 1 % (0-10); EOSINOPHILS % (MANUAL) 1 % (0-8); LYMPHOCYTES % (MANUAL) 37 % (20-40); MONOCYTES % (MANUAL) 8 % (2-10); NEUTROPHILS % (MANUAL) 53 % (42-75)
[2019-07-29] MEDS: HYDROGEN PEROXIDE 3% 118 ML BOTTLE TP SCH ×2 (08:50→21:30)
[2019-07-29] MEDS: Z GUARD REMEDY PASTE 57 GM TUBE TOP SCH ×2 (08:50→20:41)
[2019-07-29] MEDS: TRIAMCINOLONE ACET 0.1% CREAM 15 GM TUBE TP SCH ×2 (09:00→20:41)
[2019-07-29] MEDS: NYSTATIN CREAM 30 GM TUBE TP SCH ×2 (09:45→20:41)
[2019-07-29] MEDS: COD LIVER OIL/ZINC OXIDE OINT 113 GM TUBE TP SCH ×2 (09:45→20:41)
[2019-07-29] MEDS: ACETAMINOPHEN 650 MG/20 ML UDC- SA PATIENTS-PAIN ONLY GT PRN (12:01)
[2019-07-29] MEDS: ACIDOPHILUS/BULGARICUS CHEW TAB GT SCH (20:40)
[2019-07-29] MEDS: ASCORBIC ACID 500 MG TABLET PO SCH (20:41)
[2019-07-29 21:11] VITALS: BP 123/64
[2019-07-30] MEDS: ARGININE/GLUTAMINE/CALCIUM BMB 1 EACH POWD.PACK GT SCH ×2 (05:12→17:28)
[2019-07-30] MEDS: PROTEIN SUPPLEMENT (PROSTAT) 30 ML LIQUID GT SCH ×3 (05:12→21:51)
[2019-07-30] MEDS: POLYVINYL ALCOHOL OPHT DROPS 15 ML BOTTLE EACHEYE SCH ×3 (05:12→21:51)
[2019-07-30 08:08] VITALS: BP 100/64
[2019-07-30] MEDS: levETIRAcetam 500 MG/5 ML LIQUID UDC GT SCH ×2 (08:15→20:21)
[2019-07-30] MEDS: POTASSIUM CHLORIDE 40 MEQ/30 ML LIQUID UDC GT SCH (08:17)
[2019-07-30] MEDS: FAMOTIDINE 20 MG TABLET GT SCH ×2 (08:17→20:21)
[2019-07-30] MEDS: DIGOXIN 125 MCG TABLET GT SCH (08:17)
[2019-07-30] MEDS: Z GUARD REMEDY PASTE 57 GM TUBE TOP SCH ×2 (08:18→20:24)
[2019-07-30] MEDS: COD LIVER OIL/ZINC OXIDE OINT 113 GM TUBE TP SCH ×2 (08:18→20:24)
[2019-07-30] MEDS: NORMAL SALINE NASAL 45 ML BOTTLE NS SCH (08:18)
[2019-07-30] MEDS: TRIAMCINOLONE ACET 0.1% CREAM 15 GM TUBE TP SCH ×2 (08:18→20:25)
[2019-07-30] MEDS: NYSTATIN CREAM 30 GM TUBE TP SCH ×2 (08:19→20:25)
[2019-07-30] MEDS: HYDROGEN PEROXIDE 3% 118 ML BOTTLE TP SCH ×2 (09:01→21:53)
--- NOTE | 2019-07-30 13:15 | NUR ---
Seen and examined by Aylin read,with new orders noted and carried out.
--- NOTE | 2019-07-30 14:01 | NUR ---
INTERDISCIPLINARY PLAN OF CARE CONFERENCE was held today. Patient's daughter was unable to participate in the meeting. Dr. Murguia and the Interdisciplinary Team reviewed the current plan of care in detail. RN reported on patient's medical condition and recent treatments. See RN IDT conference notes. No major changes in condition were reported. See also all other disciplines IDT notes and physician's progress notes for additional details.
--- NOTE | 2019-07-30 15:04 | NUR ---
Pharmacy Update from Today's 07/30/19 IDT Meeting VS: Temp 98.8 BP 100/64 HR 65 LABS: (from 07/29/19) Wbc 4.8 H/H 12.3/37.5 Plt 94 Na 146 K 4.2 Cl 110 CO2 31 BUN/Scr 44/0.4 BS 99 Ca 9.2 MEDICATION USE REVIEWED: > Pt not on any anti-psych medications > Pt now on Keppra 750mg q12hr since 04/29/19 per neuro; Obese CrCl estimation 87.9 ml/min, renal function ok for current dose. No seizures noted > Pt on famotidine 20mg q12hr, renal fxn ok for dose > Pt on digoxin 125mcg daily since 04/27/18. Last level on 02/04/19 was 0.6 (0.5-2). Within therapeutic range. > Pt on KCl 10meq daily, last K 4.2 PRN MED USAGE: (June) Tylenol for pain/temp used x0 MOM used x0 NEW ORDERS NOTED: > Cefepime 07/15-07/20 per IT for fever, elevated procalcitonin Patient was reviewed and discussed in depth with no medication issues noted at this time. No further recommendations per rx at this time as patient remains stable, will continue to monitor for now
[2019-07-30 16:07] LABS: ALANINE AMINOTRANSFERASE 20 U/L (14-59); ALKALINE PHOSPHATASE 255 U/L (50-136); ASPARTATE AMINOTRANSFERASE 28 U/L (15-37); BILIRUBIN,TOTAL 0.5 mg/dL (0.2-1.0); CARBON DIOXIDE 27 mmol/L (21-32); CHLORIDE 107 mmol/L (98-107); CREATININE 0.5 mg/dL (0.6-1.3); GLUCOSE 110 mg/dL (74-106); POTASSIUM 3.9 mmol/L (3.5-5.1); TOTAL PROTEIN, SERUM 7.8 g/dL (6.4-8.2); UREA NITROGEN, BLOOD 37 mg/dL (7-18)
[2019-07-30 16:09] LABS: BASOPHILS % (AUTO) 0.7 % (0.0-2.0); EOSINOPHILS # (AUTO) 0.1 K/uL (0.0-0.7); HEMATOCRIT 37.5 % (31.2-41.9); HEMOGLOBIN 12.5 g/dL (10.9-14.3); LYMPHOCYTES # (AUTO) 1.2 K/uL (20.0-40.0); LYMPHOCYTES % (AUTO) 24.2 % (20.5-51.5); MEAN CORPUSCULAR HGB CONC 33 g/dL (32.3-35.6); MEAN CORPUSCULAR VOLUME 93.2 fL (75.5-95.3); MONOCYTES # (AUTO) 0.5 K/uL (2.0-10.0); NEUTROPHILS % (AUTO) 62.1 % (38.5-71.5); RED BLOOD CELL COUNT(AUTO) 4.02 MIL/uL (3.63-4.92); WHITE BLOOD COUNT (AUTO) 4.9 K/uL (3.8-11.8)
[2019-07-30 16:17] LABS: PLATELET COUNT (AUTO) 90 K/uL (179-408)
[2019-07-30] MEDS: GLUCERNA 1.2 1000ML LIQUID GT PRN (17:29)
[2019-07-30 20:00] VITALS: BP 122/68
[2019-07-30] MEDS: ACIDOPHILUS/BULGARICUS CHEW TAB GT SCH (20:21)
[2019-07-30] MEDS: ASCORBIC ACID 500 MG TABLET PO SCH (20:22)
[2019-07-31] MEDS: PROTEIN SUPPLEMENT (PROSTAT) 30 ML LIQUID GT SCH ×3 (05:59→21:53)
[2019-07-31] MEDS: ARGININE/GLUTAMINE/CALCIUM BMB 1 EACH POWD.PACK GT SCH ×2 (05:59→17:07)
[2019-07-31] MEDS: POLYVINYL ALCOHOL OPHT DROPS 15 ML BOTTLE EACHEYE SCH ×3 (05:59→21:53)
[2019-07-31 08:00] VITALS: BP 130/77
[2019-07-31] MEDS: HYDROGEN PEROXIDE 3% 118 ML BOTTLE TP SCH ×2 (09:00→21:48)
[2019-07-31] MEDS: levETIRAcetam 500 MG/5 ML LIQUID UDC GT SCH ×2 (09:21→20:17)
[2019-07-31] MEDS: DIGOXIN 125 MCG TABLET GT SCH (09:23)
[2019-07-31] MEDS: FAMOTIDINE 20 MG TABLET GT SCH ×2 (09:24→20:17)
[2019-07-31] MEDS: POTASSIUM CHLORIDE 40 MEQ/30 ML LIQUID UDC GT SCH (09:25)
[2019-07-31] MEDS: Z GUARD REMEDY PASTE 57 GM TUBE TOP SCH ×2 (09:28→20:17)
[2019-07-31] MEDS: NYSTATIN CREAM 30 GM TUBE TP SCH ×2 (09:28→20:18)
[2019-07-31] MEDS: TRIAMCINOLONE ACET 0.1% CREAM 15 GM TUBE TP SCH ×2 (09:28→20:18)
[2019-07-31] MEDS: COD LIVER OIL/ZINC OXIDE OINT 113 GM TUBE TP SCH ×2 (09:28→20:18)
[2019-07-31] MEDS: NORMAL SALINE NASAL 45 ML BOTTLE NS SCH (09:28)
--- NOTE | 2019-07-31 18:57 | NUR ---
cintron catheter changed FR 26 x5cc, with good urine return, because of dislodgement. discontinued cintron catheter FR 24. continue to monitor.
[2019-07-31 20:00] VITALS: BP 109/50
[2019-07-31] MEDS: ACIDOPHILUS/BULGARICUS CHEW TAB GT SCH (20:17)
[2019-07-31] MEDS: ASCORBIC ACID 500 MG TABLET PO SCH (20:17)
--- NOTE | 2019-07-31 20:24 | NUR ---
Pt received on HT-50 ventilator with the following settings of AC-12, Vt-550, PEEP+5, FIO2-30%, trached with Shiley#6 DCT trach, which is in the place and secure. No distress noted. Airway care done, pt responded to physical stimuli. HME and vent circuit changed. Resus. bag and back up trach at bedside. Vent and alarms checked and reset.
[2019-07-31] MEDS: GLUCERNA 1.2 1000ML LIQUID GT PRN (20:29)
[2019-08-01] MEDS: PROTEIN SUPPLEMENT (PROSTAT) 30 ML LIQUID GT SCH ×3 (05:45→21:30)
[2019-08-01] MEDS: ARGININE/GLUTAMINE/CALCIUM BMB 1 EACH POWD.PACK GT SCH ×2 (05:45→17:05)
[2019-08-01] MEDS: POLYVINYL ALCOHOL OPHT DROPS 15 ML BOTTLE EACHEYE SCH ×3 (05:45→21:30)
[2019-08-01] MEDS: DIGOXIN 125 MCG TABLET GT SCH (08:11)
[2019-08-01] MEDS: levETIRAcetam 500 MG/5 ML LIQUID UDC GT SCH ×2 (08:11→21:29)
[2019-08-01] MEDS: FAMOTIDINE 20 MG TABLET GT SCH ×2 (08:11→21:29)
[2019-08-01] MEDS: TRIAMCINOLONE ACET 0.1% CREAM 15 GM TUBE TP SCH ×2 (08:12→21:29)
[2019-08-01] MEDS: Z GUARD REMEDY PASTE 57 GM TUBE TOP SCH ×2 (08:12→21:29)
[2019-08-01] MEDS: NORMAL SALINE NASAL 45 ML BOTTLE NS SCH (08:12)
[2019-08-01] MEDS: COD LIVER OIL/ZINC OXIDE OINT 113 GM TUBE TP SCH ×2 (08:12→21:29)
[2019-08-01] MEDS: NYSTATIN CREAM 30 GM TUBE TP SCH ×2 (08:12→21:30)
[2019-08-01] MEDS: POTASSIUM CHLORIDE 40 MEQ/30 ML LIQUID UDC GT SCH (08:12)
[2019-08-01] MEDS: HYDROGEN PEROXIDE 3% 118 ML BOTTLE TP SCH ×2 (09:47→20:56)
[2019-08-01 10:52] VITALS: BP 122/69
--- NOTE | 2019-08-01 18:18 | NUR ---
EOS: No significant changes during this shift. Pt. remain non-verbal but responsive to tactile stimuli. Pt. remain stable with no acute distress. Skin care rendered. Pt. afebrile, cont. temp monitoring q2h with no fever this shift. F/C patent and intact with clear urine output. Safety measures in place. Will endorse to oncoming shift accordingly.
[2019-08-01 20:00] VITALS: BP 132/80
[2019-08-01] MEDS: ASCORBIC ACID 500 MG TABLET PO SCH (21:29)
[2019-08-01] MEDS: ACIDOPHILUS/BULGARICUS CHEW TAB GT SCH (21:29)
[2019-08-02] MEDS: GLUCERNA 1.2 1000ML LIQUID GT PRN (03:18)
[2019-08-02] MEDS: POLYVINYL ALCOHOL OPHT DROPS 15 ML BOTTLE EACHEYE SCH ×3 (05:54→21:00)
[2019-08-02] MEDS: PROTEIN SUPPLEMENT (PROSTAT) 30 ML LIQUID GT SCH ×3 (05:54→21:00)
[2019-08-02] MEDS: ARGININE/GLUTAMINE/CALCIUM BMB 1 EACH POWD.PACK GT SCH ×2 (05:54→17:16)
[2019-08-02 07:34] VITALS: BP 136/70
[2019-08-02] MEDS: levETIRAcetam 500 MG/5 ML LIQUID UDC GT SCH ×2 (09:23→20:57)
[2019-08-02] MEDS: DIGOXIN 125 MCG TABLET GT SCH (09:23)
[2019-08-02] MEDS: FAMOTIDINE 20 MG TABLET GT SCH ×2 (09:23→20:57)
[2019-08-02] MEDS: POTASSIUM CHLORIDE 40 MEQ/30 ML LIQUID UDC GT SCH (09:23)
[2019-08-02] MEDS: NORMAL SALINE NASAL 45 ML BOTTLE NS SCH (09:24)
[2019-08-02] MEDS: TRIAMCINOLONE ACET 0.1% CREAM 15 GM TUBE TP SCH ×2 (09:25→20:57)
[2019-08-02] MEDS: NYSTATIN CREAM 30 GM TUBE TP SCH ×2 (09:25→20:57)
[2019-08-02] MEDS: Z GUARD REMEDY PASTE 57 GM TUBE TOP SCH ×2 (09:25→20:57)
[2019-08-02] MEDS: COD LIVER OIL/ZINC OXIDE OINT 113 GM TUBE TP SCH ×2 (09:25→20:57)
[2019-08-02] MEDS: HYDROGEN PEROXIDE 3% 118 ML BOTTLE TP SCH ×2 (09:28→21:42)
--- NOTE | 2019-08-02 18:00 | NUR ---
Resident was noted to have F/C out during AM care, F/C ordered thru central supply waited till item is available. Was able to re insert F/C in the afternoon ,pt. tolerated re insertion of F/C well no signs of pain or discomfort. Kept pt clean and comfortable.
[2019-08-02 20:15] VITALS: BP 118/56
[2019-08-02] MEDS: ACIDOPHILUS/BULGARICUS CHEW TAB GT SCH (20:57)
[2019-08-02] MEDS: ASCORBIC ACID 500 MG TABLET PO SCH (20:57)
--- NOTE | 2019-08-02 21:00 | NUR ---
NOTED RESIDENT WITH F/C DISLODGED. OBTAINED F/C 26FR/5CC FROM NURSING PRESS OFFICER. INSERTED F/C 26FR/5CC ORDERED DUE TO DISLODGEMENT. RESIDENT TOLERATED PROCEDURE WELL. NO S/S OF PAIN OR DISCOMFORT. NO FACIAL GRIMACING, NO GRUNTS OR MOANS. WILL CONTINUE TO MONITOR.
[2019-08-03] MEDS: POLYVINYL ALCOHOL OPHT DROPS 15 ML BOTTLE EACHEYE SCH ×3 (05:15→21:18)
[2019-08-03] MEDS: ARGININE/GLUTAMINE/CALCIUM BMB 1 EACH POWD.PACK GT SCH ×2 (05:15→18:23)
[2019-08-03] MEDS: PROTEIN SUPPLEMENT (PROSTAT) 30 ML LIQUID GT SCH ×3 (05:15→21:18)
[2019-08-03] MEDS: HYDROGEN PEROXIDE 3% 118 ML BOTTLE TP SCH ×2 (09:03→19:18)
[2019-08-03] MEDS: levETIRAcetam 500 MG/5 ML LIQUID UDC GT SCH ×2 (09:19→21:18)
[2019-08-03] MEDS: POTASSIUM CHLORIDE 40 MEQ/30 ML LIQUID UDC GT SCH (09:22)
[2019-08-03] MEDS: FAMOTIDINE 20 MG TABLET GT SCH ×2 (09:22→21:18)
[2019-08-03] MEDS: DIGOXIN 125 MCG TABLET GT SCH (09:22)
[2019-08-03] MEDS: NYSTATIN CREAM 30 GM TUBE TP SCH ×2 (09:23→21:18)
[2019-08-03] MEDS: Z GUARD REMEDY PASTE 57 GM TUBE TOP SCH ×2 (09:23→21:18)
[2019-08-03] MEDS: TRIAMCINOLONE ACET 0.1% CREAM 15 GM TUBE TP SCH ×2 (09:23→21:18)
[2019-08-03] MEDS: NORMAL SALINE NASAL 45 ML BOTTLE NS SCH (09:23)
[2019-08-03] MEDS: COD LIVER OIL/ZINC OXIDE OINT 113 GM TUBE TP SCH ×2 (09:23→21:18)
[2019-08-03] MEDS: GLUCERNA 1.2 1000ML LIQUID GT PRN (09:48)
[2019-08-03 11:50] VITALS: BP 110/53
[2019-08-03 20:00] VITALS: BP 141/70
[2019-08-03] MEDS: ASCORBIC ACID 500 MG TABLET PO SCH (21:18)
[2019-08-03] MEDS: ACIDOPHILUS/BULGARICUS CHEW TAB GT SCH (21:18)
--- NOTE | 2019-08-03 21:44 | NUR ---
F/C DISLODGED AT THIS TIME. INSERTED ANOTHER 26FR/5CC CALLES CATHETER ORDERED D/T DISLODGEMENT. RESIDENT TOLERATED PROCEDURE WELL. NO S/S OF PAIN OR DISCOMFORT. NO FACIAL GRIMACING, NO GRUNTS OR MOANS. WILL CONTINUE TO MONITOR.
[2019-08-04] MEDS: PROTEIN SUPPLEMENT (PROSTAT) 30 ML LIQUID GT SCH ×3 (05:12→21:04)
[2019-08-04] MEDS: ARGININE/GLUTAMINE/CALCIUM BMB 1 EACH POWD.PACK GT SCH ×2 (05:12→17:10)
[2019-08-04] MEDS: POLYVINYL ALCOHOL OPHT DROPS 15 ML BOTTLE EACHEYE SCH ×3 (05:12→21:04)
[2019-08-04 08:30] VITALS: BP 121/52
[2019-08-04] MEDS: levETIRAcetam 500 MG/5 ML LIQUID UDC GT SCH ×2 (08:32→21:04)
[2019-08-04] MEDS: DIGOXIN 125 MCG TABLET GT SCH (08:32)
[2019-08-04] MEDS: FAMOTIDINE 20 MG TABLET GT SCH ×2 (08:33→21:04)
[2019-08-04] MEDS: NYSTATIN CREAM 30 GM TUBE TP SCH ×2 (08:34→21:04)
[2019-08-04] MEDS: COD LIVER OIL/ZINC OXIDE OINT 113 GM TUBE TP SCH ×2 (08:34→21:04)
[2019-08-04] MEDS: NORMAL SALINE NASAL 45 ML BOTTLE NS SCH (08:34)
[2019-08-04] MEDS: Z GUARD REMEDY PASTE 57 GM TUBE TOP SCH ×2 (08:34→21:04)
[2019-08-04] MEDS: TRIAMCINOLONE ACET 0.1% CREAM 15 GM TUBE TP SCH ×2 (08:34→21:04)
[2019-08-04] MEDS: POTASSIUM CHLORIDE 40 MEQ/30 ML LIQUID UDC GT SCH (08:34)
[2019-08-04] MEDS: HYDROGEN PEROXIDE 3% 118 ML BOTTLE TP SCH ×2 (08:46→20:46)
[2019-08-04] MEDS: GLUCERNA 1.2 1000ML LIQUID GT PRN (11:32)
[2019-08-04 20:00] VITALS: BP 128/66
[2019-08-04] MEDS: ASCORBIC ACID 500 MG TABLET PO SCH (21:04)
[2019-08-04] MEDS: ACIDOPHILUS/BULGARICUS CHEW TAB GT SCH (21:04)
--- NOTE | 2019-08-04 21:05 | NUR ---
NOTED RESIDENT WITH DISLODGED CALLES CATHETER. INSERTED ANOTHER CALLES CATHETER 26FR/5CC ORDERED DUE TO DISLODGEMENT. RESIDENT TOLERATED PROCEDURE WELL. NO S/S OF PAIN OR DISCOMFORT. NO FACIAL GRIMACING. NO GRUNTS OR MOANS. WILL CONTINUE TO MONITOR.
[2019-08-05] MEDS: PROTEIN SUPPLEMENT (PROSTAT) 30 ML LIQUID GT SCH ×3 (05:14→21:57)
[2019-08-05] MEDS: POLYVINYL ALCOHOL OPHT DROPS 15 ML BOTTLE EACHEYE SCH ×3 (05:14→21:57)
[2019-08-05] MEDS: ARGININE/GLUTAMINE/CALCIUM BMB 1 EACH POWD.PACK GT SCH ×2 (05:14→17:35)
[2019-08-05] MEDS: HYDROGEN PEROXIDE 3% 118 ML BOTTLE TP SCH ×2 (07:03→20:33)
[2019-08-05] MEDS: levETIRAcetam 500 MG/5 ML LIQUID UDC GT SCH ×2 (08:26→20:32)
[2019-08-05] MEDS: DIGOXIN 125 MCG TABLET GT SCH (08:27)
[2019-08-05] MEDS: FAMOTIDINE 20 MG TABLET GT SCH ×2 (08:27→20:32)
[2019-08-05] MEDS: POTASSIUM CHLORIDE 40 MEQ/30 ML LIQUID UDC GT SCH (08:27)
[2019-08-05] MEDS: NORMAL SALINE NASAL 45 ML BOTTLE NS SCH (08:29)
[2019-08-05] MEDS: Z GUARD REMEDY PASTE 57 GM TUBE TOP SCH ×2 (08:29→20:33)
[2019-08-05] MEDS: TRIAMCINOLONE ACET 0.1% CREAM 15 GM TUBE TP SCH ×2 (08:29→20:33)
[2019-08-05] MEDS: COD LIVER OIL/ZINC OXIDE OINT 113 GM TUBE TP SCH ×2 (08:29→20:33)
[2019-08-05] MEDS: NYSTATIN CREAM 30 GM TUBE TP SCH ×2 (08:29→20:34)
[2019-08-05 08:30] VITALS: BP 121/55
--- NOTE | 2019-08-05 11:14 | NUR ---
Seen by Aylin MARIE, new order given for wound consult, (sacral wound re-evaluation), spoke with son Johnny, notified of mother's condition and new orders.
--- NOTE | 2019-08-05 11:30 | NUR ---
Seen by Xena Lujan, no new order given at this time.
[2019-08-05] MEDS: GLUCERNA 1.2 1000ML LIQUID GT PRN (12:06)
[2019-08-05 20:06] VITALS: BP 129/70
[2019-08-05] MEDS: ACIDOPHILUS/BULGARICUS CHEW TAB GT SCH (20:32)
[2019-08-05] MEDS: ASCORBIC ACID 500 MG TABLET PO SCH (20:32)
[2019-08-06] MEDS: ARGININE/GLUTAMINE/CALCIUM BMB 1 EACH POWD.PACK GT SCH ×2 (05:45→17:28)
[2019-08-06] MEDS: POLYVINYL ALCOHOL OPHT DROPS 15 ML BOTTLE EACHEYE SCH ×3 (05:45→21:49)
[2019-08-06] MEDS: PROTEIN SUPPLEMENT (PROSTAT) 30 ML LIQUID GT SCH ×3 (05:45→21:50)
[2019-08-06 07:45] LABS: BASOPHILS % (AUTO) 0.6 % (0.0-2.0); EOSINOPHILS # (AUTO) 0.1 K/uL (0.0-0.7); EOSINOPHILS % (AUTO) 2.6 % (0.0-7.0); HEMATOCRIT 36.9 % (31.2-41.9); HEMOGLOBIN 11.9 g/dL (10.9-14.3); LYMPHOCYTES # (AUTO) 1.2 K/uL (20.0-40.0); LYMPHOCYTES % (AUTO) 30.6 % (20.5-51.5); MEAN CORPUSCULAR HEMOGLOBIN 30.9 uug (24.7-32.8); MEAN CORPUSCULAR HGB CONC 32 g/dL (32.3-35.6); MEAN CORPUSCULAR VOLUME 95.4 fL (75.5-95.3); MONOCYTES # (AUTO) 0.5 K/uL (2.0-10.0); MONOCYTES % (AUTO) 12.2 % (0.0-11.0); NEUTROPHILS # (AUTO) 2.1 K/uL (1.8-8.9); PLATELET COUNT (AUTO) 77 K/uL (179-408); RED BLOOD CELL COUNT(AUTO) 3.87 MIL/uL (3.63-4.92); WHITE BLOOD COUNT (AUTO) 3.9 K/uL (3.8-11.8)
[2019-08-06 07:59] LABS: CARBON DIOXIDE 30 mmol/L (21-32); CHLORIDE 107 mmol/L (98-107); CREATININE 0.4 mg/dL (0.6-1.3); GLUCOSE 112 mg/dL (74-106); MAGNESIUM 2.2 mg/dL (1.8-2.4); POTASSIUM 3.6 mmol/L (3.5-5.1); UREA NITROGEN, BLOOD 32 mg/dL (7-18)
[2019-08-06 08:00] VITALS: BP 119/59
[2019-08-06] MEDS: levETIRAcetam 500 MG/5 ML LIQUID UDC GT SCH ×2 (08:25→21:46)
[2019-08-06] MEDS: DIGOXIN 125 MCG TABLET GT SCH (08:26)
[2019-08-06] MEDS: POTASSIUM CHLORIDE 40 MEQ/30 ML LIQUID UDC GT SCH (08:27)
[2019-08-06] MEDS: FAMOTIDINE 20 MG TABLET GT SCH ×2 (08:27→21:48)
[2019-08-06] MEDS: Z GUARD REMEDY PASTE 57 GM TUBE TOP SCH ×2 (08:28→21:48)
[2019-08-06] MEDS: NORMAL SALINE NASAL 45 ML BOTTLE NS SCH (08:28)
[2019-08-06] MEDS: TRIAMCINOLONE ACET 0.1% CREAM 15 GM TUBE TP SCH ×3 (09:00→21:49)
[2019-08-06] MEDS: COD LIVER OIL/ZINC OXIDE OINT 113 GM TUBE TP SCH ×2 (09:00→21:48)
[2019-08-06] MEDS: NYSTATIN CREAM 30 GM TUBE TP SCH ×3 (09:00→21:49)
[2019-08-06 09:31] LABS: EOSINOPHILS % (MANUAL) 3 % (0-8); LYMPHOCYTES % (MANUAL) 32 % (20-40); MONOCYTES % (MANUAL) 14 % (2-10); NEUTROPHILS % (MANUAL) 51 % (42-75)
[2019-08-06] MEDS: HYDROGEN PEROXIDE 3% 118 ML BOTTLE TP SCH ×2 (09:43→21:36)
--- NOTE | 2019-08-06 12:26 | NUR ---
WOUND CARE CONSULT: PT SEEN FOR RE-EVALUATION OF REOPENED FULL THICKNESS WOUND OVER PREVIOUS SCARRING TO SACRAL AREA. SCARRING WAS NOTED ON ADMISSION. RECOMMEND CONTINUE PRESENT WOUND TREATMENT AND OFFLOADING. RECOMMEND SURGICAL CONSULT. DR AUSTEN MART NOTIFIED OF CONSULT REQUEST. ALL SKIN PROTECTION MEASURES IN PLACE AND DISCUSSED WITH NURSING STAFF. PT ON FIRST STEP CIRS LOW AIRLOSS MATTRESS. WILL SEE PRN. IN AGREEMENT WITH PLAN OF CARE.
--- NOTE | 2019-08-06 13:00 | NUR ---
Seen and examined by THe wound plant care worker Coco,new orders noted to be evaluate by Dr Jean Claude Betancur,
[2019-08-06] MEDS: GLUCERNA 1.2 1000ML LIQUID GT PRN (17:28)
[2019-08-06 20:06] VITALS: BP 132/68
[2019-08-06] MEDS: ACIDOPHILUS/BULGARICUS CHEW TAB GT SCH (21:46)
[2019-08-06] MEDS: ASCORBIC ACID 500 MG TABLET PO SCH (21:48)
[2019-08-07] MEDS: ARGININE/GLUTAMINE/CALCIUM BMB 1 EACH POWD.PACK GT SCH ×2 (06:10→17:32)
[2019-08-07] MEDS: PROTEIN SUPPLEMENT (PROSTAT) 30 ML LIQUID GT SCH ×3 (06:10→21:36)
[2019-08-07] MEDS: POLYVINYL ALCOHOL OPHT DROPS 15 ML BOTTLE EACHEYE SCH ×3 (06:10→21:36)
[2019-08-07 08:02] VITALS: BP 149/84
[2019-08-07] MEDS: DIGOXIN 125 MCG TABLET GT SCH (08:08)
[2019-08-07] MEDS: levETIRAcetam 500 MG/5 ML LIQUID UDC GT SCH ×2 (08:08→21:33)
[2019-08-07] MEDS: NORMAL SALINE NASAL 45 ML BOTTLE NS SCH (08:09)
[2019-08-07] MEDS: POTASSIUM CHLORIDE 40 MEQ/30 ML LIQUID UDC GT SCH (08:09)
[2019-08-07] MEDS: FAMOTIDINE 20 MG TABLET GT SCH ×2 (08:09→21:34)
[2019-08-07] MEDS: Z GUARD REMEDY PASTE 57 GM TUBE TOP SCH ×2 (08:10→21:35)
[2019-08-07] MEDS: NYSTATIN CREAM 30 GM TUBE TP SCH ×4 (09:00→21:35)
[2019-08-07] MEDS: TRIAMCINOLONE ACET 0.1% CREAM 15 GM TUBE TP SCH ×4 (09:30→21:35)
[2019-08-07] MEDS: COD LIVER OIL/ZINC OXIDE OINT 113 GM TUBE TP SCH (09:30)
[2019-08-07] MEDS: HYDROGEN PEROXIDE 3% 118 ML BOTTLE TP SCH ×2 (09:37→21:00)
--- NOTE | 2019-08-07 18:21 | NUR ---
Seen and examined by Rosi Miller Gauge Maker Apprentice,evaluate the sacral wound with new orders noted and carried out.
[2019-08-07 19:45] VITALS: BP 140/73
--- NOTE | 2019-08-07 19:45 | NUR ---
Spoke to Sheeba catina's Daughter and made her aware of the wound consult and new tx orders,she agreed with the plan of care.
[2019-08-07] MEDS: ACIDOPHILUS/BULGARICUS CHEW TAB GT SCH (21:33)
[2019-08-07] MEDS: ASCORBIC ACID 500 MG TABLET PO SCH (21:35)
[2019-08-08] MEDS: GLUCERNA 1.2 1000ML LIQUID GT PRN (01:00)
[2019-08-08] MEDS: ARGININE/GLUTAMINE/CALCIUM BMB 1 EACH POWD.PACK GT SCH ×2 (06:27→17:52)
[2019-08-08] MEDS: PROTEIN SUPPLEMENT (PROSTAT) 30 ML LIQUID GT SCH ×3 (06:27→22:29)
[2019-08-08] MEDS: POLYVINYL ALCOHOL OPHT DROPS 15 ML BOTTLE EACHEYE SCH ×3 (06:27→22:29)
[2019-08-08 07:45] VITALS: BP 136/67
[2019-08-08] MEDS: levETIRAcetam 500 MG/5 ML LIQUID UDC GT SCH ×2 (08:30→21:00)
[2019-08-08] MEDS: DIGOXIN 125 MCG TABLET GT SCH (08:30)
[2019-08-08] MEDS: Z GUARD REMEDY PASTE 57 GM TUBE TOP SCH ×2 (08:31→21:00)
[2019-08-08] MEDS: TRIAMCINOLONE ACET 0.1% CREAM 15 GM TUBE TP SCH ×3 (08:31→21:00)
[2019-08-08] MEDS: NORMAL SALINE NASAL 45 ML BOTTLE NS SCH (08:31)
[2019-08-08] MEDS: FAMOTIDINE 20 MG TABLET GT SCH ×2 (08:31→21:00)
[2019-08-08] MEDS: POTASSIUM CHLORIDE 40 MEQ/30 ML LIQUID UDC GT SCH (08:31)
[2019-08-08] MEDS: NYSTATIN CREAM 30 GM TUBE TP SCH ×3 (08:32→21:00)
[2019-08-08] MEDS: SODIUM HYPOCHLORITE 0.125% (QUARTER STRENGTH) 473 ML BOTTLE TP SCH (09:00)
[2019-08-08] MEDS: HYDROGEN PEROXIDE 3% 118 ML BOTTLE TP SCH ×2 (09:42→21:09)
--- NOTE | 2019-08-08 17:25 | NUR ---
SEEN BY DR. VALLE AND СВЕТЛАНАO.
--- NOTE | 2019-08-08 19:00 | NUR ---
SEEN BY HAJA SHELDON AND СВЕТЛАНАO.
[2019-08-08 20:13] VITALS: BP 136/71
[2019-08-08] MEDS: ACIDOPHILUS/BULGARICUS CHEW TAB GT SCH (21:00)
[2019-08-08] MEDS: ASCORBIC ACID 500 MG TABLET PO SCH (21:00)
[2019-08-09] MEDS: PROTEIN SUPPLEMENT (PROSTAT) 30 ML LIQUID GT SCH ×3 (05:52→21:36)
[2019-08-09] MEDS: POLYVINYL ALCOHOL OPHT DROPS 15 ML BOTTLE EACHEYE SCH ×3 (05:52→21:36)
[2019-08-09] MEDS: ARGININE/GLUTAMINE/CALCIUM BMB 1 EACH POWD.PACK GT SCH ×2 (05:52→17:32)
[2019-08-09] MEDS: GLUCERNA 1.2 1000ML LIQUID GT PRN (06:00)
[2019-08-09] MEDS: levETIRAcetam 500 MG/5 ML LIQUID UDC GT SCH ×2 (08:22→20:31)
[2019-08-09] MEDS: DIGOXIN 125 MCG TABLET GT SCH (08:23)
[2019-08-09] MEDS: NORMAL SALINE NASAL 45 ML BOTTLE NS SCH (08:25)
[2019-08-09] MEDS: Z GUARD REMEDY PASTE 57 GM TUBE TOP SCH ×2 (08:25→20:32)
[2019-08-09] MEDS: POTASSIUM CHLORIDE 40 MEQ/30 ML LIQUID UDC GT SCH (08:25)
[2019-08-09] MEDS: FAMOTIDINE 20 MG TABLET GT SCH ×2 (08:25→20:32)
[2019-08-09] MEDS: SODIUM HYPOCHLORITE 0.125% (QUARTER STRENGTH) 473 ML BOTTLE TP SCH (08:25)
[2019-08-09] MEDS: TRIAMCINOLONE ACET 0.1% CREAM 15 GM TUBE TP SCH ×3 (08:25→20:32)
[2019-08-09] MEDS: NYSTATIN CREAM 30 GM TUBE TP SCH ×3 (08:25→20:33)
[2019-08-09] MEDS: HYDROGEN PEROXIDE 3% 118 ML BOTTLE TP SCH ×2 (09:05→20:32)
--- NOTE | 2019-08-09 14:00 | NUR ---
SEEN BY FRANCE GE.
[2019-08-09 20:25] VITALS: BP 137/98
[2019-08-09] MEDS: ACIDOPHILUS/BULGARICUS CHEW TAB GT SCH (20:30)
[2019-08-09] MEDS: ASCORBIC ACID 500 MG TABLET PO SCH (20:32)
--- NOTE | 2019-08-09 21:38 | NUR ---
Patient is on Merrem and Vancomycin IV for fever, no adverse reactions noted. IV site on left hand, no signs of infiltration. no signs of any respiratory distress noted, noted with generalized edema+3, elevated extremities on pillows. noted with multiple discolorations, currently on Lovenox injections, no active bleeding noted, cintron catheter is draining well to yellow urine, no hematuria noted, kept clean and comfortable.
--- NOTE | 2019-08-09 21:39 | NUR ---
Please disregard above note for 08/09/2019 @ 2138 - Wrong Entry.
[2019-08-10] MEDS: GLUCERNA 1.2 1000ML LIQUID GT PRN (02:58)
[2019-08-10] MEDS: PROTEIN SUPPLEMENT (PROSTAT) 30 ML LIQUID GT SCH ×3 (05:05→21:43)
[2019-08-10] MEDS: ARGININE/GLUTAMINE/CALCIUM BMB 1 EACH POWD.PACK GT SCH ×2 (05:05→17:18)
[2019-08-10] MEDS: POLYVINYL ALCOHOL OPHT DROPS 15 ML BOTTLE EACHEYE SCH ×3 (05:05→21:43)
[2019-08-10 07:44] VITALS: BP 150/65
[2019-08-10] MEDS: DIGOXIN 125 MCG TABLET GT SCH (08:05)
[2019-08-10] MEDS: levETIRAcetam 500 MG/5 ML LIQUID UDC GT SCH ×2 (08:05→20:09)
[2019-08-10] MEDS: POTASSIUM CHLORIDE 40 MEQ/30 ML LIQUID UDC GT SCH (08:06)
[2019-08-10] MEDS: FAMOTIDINE 20 MG TABLET GT SCH ×2 (08:06→20:09)
[2019-08-10] MEDS: NORMAL SALINE NASAL 45 ML BOTTLE NS SCH (08:06)
[2019-08-10] MEDS: NYSTATIN CREAM 30 GM TUBE TP SCH ×3 (08:06→20:11)
[2019-08-10] MEDS: Z GUARD REMEDY PASTE 57 GM TUBE TOP SCH ×2 (08:06→20:11)
[2019-08-10] MEDS: TRIAMCINOLONE ACET 0.1% CREAM 15 GM TUBE TP SCH ×3 (08:06→20:11)
[2019-08-10] MEDS: SODIUM HYPOCHLORITE 0.125% (QUARTER STRENGTH) 473 ML BOTTLE TP SCH (08:06)
[2019-08-10] MEDS: HYDROGEN PEROXIDE 3% 118 ML BOTTLE TP SCH ×2 (08:37→21:21)
[2019-08-10 19:57] VITALS: BP 136/62
[2019-08-10] MEDS: ACIDOPHILUS/BULGARICUS CHEW TAB GT SCH (20:09)
[2019-08-10] MEDS: ASCORBIC ACID 500 MG TABLET PO SCH (20:10)
--- NOTE | 2019-08-10 20:42 | NUR ---
Pt received on HT-50 ventilator with the following settings of AC-12, Vt-550, PEEP+5, FIO2-30%, trached with Shiley#6 DCT trach, which is in the place and secure. No s/s of respiratory distress noted. Airway care done, pt responded to physical stimuli. HME, trach tube zavala and Sx Quispe changed. Resus. bag and back up trach at bedside. Vent and alarms checked and reset.
[2019-08-11] MEDS: GLUCERNA 1.2 1000ML LIQUID GT PRN ×2 (04:00→05:11)
[2019-08-11] MEDS: PROTEIN SUPPLEMENT (PROSTAT) 30 ML LIQUID GT SCH ×3 (05:11→21:26)
[2019-08-11] MEDS: POLYVINYL ALCOHOL OPHT DROPS 15 ML BOTTLE EACHEYE SCH ×3 (05:11→21:26)
[2019-08-11] MEDS: ARGININE/GLUTAMINE/CALCIUM BMB 1 EACH POWD.PACK GT SCH ×2 (05:11→18:16)
[2019-08-11] MEDS: HYDROGEN PEROXIDE 3% 118 ML BOTTLE TP SCH ×2 (07:05→21:05)
[2019-08-11 07:58] VITALS: BP 123/61
[2019-08-11] MEDS: TRIAMCINOLONE ACET 0.1% CREAM 15 GM TUBE TP SCH ×3 (09:00→20:20)
[2019-08-11] MEDS: NYSTATIN CREAM 30 GM TUBE TP SCH ×3 (09:00→20:20)
[2019-08-11] MEDS: SODIUM HYPOCHLORITE 0.125% (QUARTER STRENGTH) 473 ML BOTTLE TP SCH (09:00)
[2019-08-11] MEDS: DIGOXIN 125 MCG TABLET GT SCH (09:30)
[2019-08-11] MEDS: FAMOTIDINE 20 MG TABLET GT SCH ×2 (09:30→20:19)
[2019-08-11] MEDS: POTASSIUM CHLORIDE 40 MEQ/30 ML LIQUID UDC GT SCH (09:30)
[2019-08-11] MEDS: levETIRAcetam 500 MG/5 ML LIQUID UDC GT SCH ×2 (09:30→20:19)
[2019-08-11] MEDS: Z GUARD REMEDY PASTE 57 GM TUBE TOP SCH ×2 (09:31→20:20)
[2019-08-11] MEDS: NORMAL SALINE NASAL 45 ML BOTTLE NS SCH (09:31)
[2019-08-11] MEDS: ACIDOPHILUS/BULGARICUS CHEW TAB GT SCH (20:19)
[2019-08-11] MEDS: ASCORBIC ACID 500 MG TABLET PO SCH (20:20)
[2019-08-11 20:22] VITALS: BP 121/61
[2019-08-12] MEDS: PROTEIN SUPPLEMENT (PROSTAT) 30 ML LIQUID GT SCH ×3 (05:18→22:05)
[2019-08-12] MEDS: ARGININE/GLUTAMINE/CALCIUM BMB 1 EACH POWD.PACK GT SCH ×2 (05:18→17:46)
[2019-08-12] MEDS: POLYVINYL ALCOHOL OPHT DROPS 15 ML BOTTLE EACHEYE SCH ×3 (05:18→22:05)
[2019-08-12] MEDS: GLUCERNA 1.2 1000ML LIQUID GT PRN (05:19)
[2019-08-12 08:03] VITALS: BP 129/59
[2019-08-12] MEDS: DIGOXIN 125 MCG TABLET GT SCH (08:13)
[2019-08-12] MEDS: POTASSIUM CHLORIDE 40 MEQ/30 ML LIQUID UDC GT SCH (08:13)
[2019-08-12] MEDS: levETIRAcetam 500 MG/5 ML LIQUID UDC GT SCH ×2 (08:13→20:56)
[2019-08-12] MEDS: FAMOTIDINE 20 MG TABLET GT SCH ×2 (08:13→20:56)
[2019-08-12] MEDS: Z GUARD REMEDY PASTE 57 GM TUBE TOP SCH ×2 (08:14→20:56)
[2019-08-12] MEDS: SODIUM HYPOCHLORITE 0.125% (QUARTER STRENGTH) 473 ML BOTTLE TP SCH (08:14)
[2019-08-12] MEDS: NYSTATIN CREAM 30 GM TUBE TP SCH ×3 (08:14→20:57)
[2019-08-12] MEDS: NORMAL SALINE NASAL 45 ML BOTTLE NS SCH (08:14)
[2019-08-12] MEDS: TRIAMCINOLONE ACET 0.1% CREAM 15 GM TUBE TP SCH ×3 (08:14→20:56)
[2019-08-12] MEDS: HYDROGEN PEROXIDE 3% 118 ML BOTTLE TP SCH ×2 (09:24→20:20)
--- NOTE | 2019-08-12 19:04 | NUR ---
MESSAGE LEFT TO JOSE AVILA N.P (BECKI) RE:WOUND CX RESULT.
[2019-08-12 20:08] VITALS: BP 133/58
[2019-08-12] MEDS: ASCORBIC ACID 500 MG TABLET PO SCH (20:56)
[2019-08-12] MEDS: ACIDOPHILUS/BULGARICUS CHEW TAB GT SCH (20:56)
[2019-08-13] MEDS: POLYVINYL ALCOHOL OPHT DROPS 15 ML BOTTLE EACHEYE SCH ×3 (06:04→22:21)
[2019-08-13] MEDS: ARGININE/GLUTAMINE/CALCIUM BMB 1 EACH POWD.PACK GT SCH ×2 (06:04→18:08)
[2019-08-13] MEDS: PROTEIN SUPPLEMENT (PROSTAT) 30 ML LIQUID GT SCH ×3 (06:05→22:21)
[2019-08-13 07:55] VITALS: BP 125/63
[2019-08-13] MEDS: levETIRAcetam 500 MG/5 ML LIQUID UDC GT SCH ×2 (08:36→20:25)
[2019-08-13] MEDS: SODIUM HYPOCHLORITE 0.125% (QUARTER STRENGTH) 473 ML BOTTLE TP SCH (08:37)
[2019-08-13] MEDS: NORMAL SALINE NASAL 45 ML BOTTLE NS SCH (08:37)
[2019-08-13] MEDS: TRIAMCINOLONE ACET 0.1% CREAM 15 GM TUBE TP SCH ×3 (08:37→20:26)
[2019-08-13] MEDS: POTASSIUM CHLORIDE 40 MEQ/30 ML LIQUID UDC GT SCH (08:37)
[2019-08-13] MEDS: FAMOTIDINE 20 MG TABLET GT SCH ×2 (08:37→20:25)
[2019-08-13] MEDS: DIGOXIN 125 MCG TABLET GT SCH (08:37)
[2019-08-13] MEDS: Z GUARD REMEDY PASTE 57 GM TUBE TOP SCH ×2 (08:37→20:25)
[2019-08-13] MEDS: NYSTATIN CREAM 30 GM TUBE TP SCH ×3 (08:38→20:26)
[2019-08-13] MEDS: HYDROGEN PEROXIDE 3% 118 ML BOTTLE TP SCH ×2 (09:00→20:38)
--- NOTE | 2019-08-13 10:35 | NUR ---
New Orders noted to dc mom prn,carried out.
--- NOTE | 2019-08-13 15:15 | NUR ---
Kumar catheter was accidentally out. Pt has no catheter this time due to irritation. Will continue to monitor.
[2019-08-13 19:40] VITALS: BP 136/71
[2019-08-13] MEDS: ASCORBIC ACID 500 MG TABLET PO SCH (20:25)
[2019-08-13] MEDS: ACIDOPHILUS/BULGARICUS CHEW TAB GT SCH (20:25)
[2019-08-14] MEDS: PROTEIN SUPPLEMENT (PROSTAT) 30 ML LIQUID GT SCH ×3 (06:08→22:13)
[2019-08-14] MEDS: ARGININE/GLUTAMINE/CALCIUM BMB 1 EACH POWD.PACK GT SCH ×2 (06:08→18:08)
[2019-08-14] MEDS: POLYVINYL ALCOHOL OPHT DROPS 15 ML BOTTLE EACHEYE SCH ×3 (06:08→22:13)
[2019-08-14 07:56] VITALS: BP 131/72
[2019-08-14] MEDS: HYDROGEN PEROXIDE 3% 118 ML BOTTLE TP SCH ×2 (09:00→21:40)
[2019-08-14] MEDS: levETIRAcetam 500 MG/5 ML LIQUID UDC GT SCH ×2 (09:06→20:13)
[2019-08-14] MEDS: FAMOTIDINE 20 MG TABLET GT SCH ×2 (09:07→20:13)
[2019-08-14] MEDS: DIGOXIN 125 MCG TABLET GT SCH (09:07)
[2019-08-14] MEDS: POTASSIUM CHLORIDE 40 MEQ/30 ML LIQUID UDC GT SCH (09:08)
[2019-08-14] MEDS: NORMAL SALINE NASAL 45 ML BOTTLE NS SCH (09:09)
[2019-08-14] MEDS: Z GUARD REMEDY PASTE 57 GM TUBE TOP SCH ×2 (09:09→20:13)
[2019-08-14] MEDS: TRIAMCINOLONE ACET 0.1% CREAM 15 GM TUBE TP SCH ×3 (09:10→20:14)
[2019-08-14] MEDS: NYSTATIN CREAM 30 GM TUBE TP SCH ×3 (09:10→20:14)
[2019-08-14] MEDS: SODIUM HYPOCHLORITE 0.125% (QUARTER STRENGTH) 473 ML BOTTLE TP SCH (09:10)
--- NOTE | 2019-08-14 11:00 | NUR ---
Seen by Dr Mixon ,no new orders noted.
--- NOTE | 2019-08-14 17:00 | NUR ---
F/c not reinserted yet ,still shows some irritation and slight bleeding.will observed.
[2019-08-14 19:55] VITALS: BP 126/65
[2019-08-14] MEDS: ACIDOPHILUS/BULGARICUS CHEW TAB GT SCH (20:13)
[2019-08-14] MEDS: ASCORBIC ACID 500 MG TABLET PO SCH (20:13)
[2019-08-15] MEDS: ARGININE/GLUTAMINE/CALCIUM BMB 1 EACH POWD.PACK GT SCH ×2 (05:31→17:16)
[2019-08-15] MEDS: POLYVINYL ALCOHOL OPHT DROPS 15 ML BOTTLE EACHEYE SCH ×3 (05:31→22:00)
[2019-08-15] MEDS: PROTEIN SUPPLEMENT (PROSTAT) 30 ML LIQUID GT SCH ×3 (05:32→22:00)
[2019-08-15 07:40] VITALS: BP 132/73
[2019-08-15] MEDS: levETIRAcetam 500 MG/5 ML LIQUID UDC GT SCH ×2 (08:36→20:20)
[2019-08-15] MEDS: TRIAMCINOLONE ACET 0.1% CREAM 15 GM TUBE TP SCH ×3 (08:37→20:21)
[2019-08-15] MEDS: NYSTATIN CREAM 30 GM TUBE TP SCH ×3 (08:37→20:21)
[2019-08-15] MEDS: SODIUM HYPOCHLORITE 0.125% (QUARTER STRENGTH) 473 ML BOTTLE TP SCH (08:37)
[2019-08-15] MEDS: POTASSIUM CHLORIDE 40 MEQ/30 ML LIQUID UDC GT SCH (08:37)
[2019-08-15] MEDS: NORMAL SALINE NASAL 45 ML BOTTLE NS SCH (08:37)
[2019-08-15] MEDS: FAMOTIDINE 20 MG TABLET GT SCH ×2 (08:37→20:20)
[2019-08-15] MEDS: Z GUARD REMEDY PASTE 57 GM TUBE TOP SCH ×2 (08:37→20:20)
[2019-08-15] MEDS: DIGOXIN 125 MCG TABLET GT SCH (08:37)
[2019-08-15] MEDS: HYDROGEN PEROXIDE 3% 118 ML BOTTLE TP SCH ×2 (09:00→21:22)
--- NOTE | 2019-08-15 15:25 | NUR ---
PT is positive for Entrococcus growth in wound. Charge nurse called nurse practitioner. RUPERT Aranda, came and checked on patient. New orders were carried. Charge nurse is aware. Will continue to monitor.
[2019-08-15] MEDS: GLUCERNA 1.2 1000ML LIQUID GT PRN (17:16)
[2019-08-15 20:00] VITALS: BP 135/64
[2019-08-15] MEDS: ASCORBIC ACID 500 MG TABLET PO SCH (20:20)
[2019-08-15] MEDS: ACIDOPHILUS/BULGARICUS CHEW TAB GT SCH (20:20)
[2019-08-16] MEDS: POLYVINYL ALCOHOL OPHT DROPS 15 ML BOTTLE EACHEYE SCH ×3 (05:48→21:01)
[2019-08-16] MEDS: ARGININE/GLUTAMINE/CALCIUM BMB 1 EACH POWD.PACK GT SCH ×2 (05:48→17:20)
[2019-08-16] MEDS: PROTEIN SUPPLEMENT (PROSTAT) 30 ML LIQUID GT SCH ×3 (05:48→21:01)
[2019-08-16 07:34] VITALS: BP 124/73
[2019-08-16] MEDS: HYDROGEN PEROXIDE 3% 118 ML BOTTLE TP SCH ×2 (08:12→21:41)
[2019-08-16] MEDS: levETIRAcetam 500 MG/5 ML LIQUID UDC GT SCH ×2 (08:30→21:01)
[2019-08-16] MEDS: DIGOXIN 125 MCG TABLET GT SCH (08:31)
[2019-08-16] MEDS: NORMAL SALINE NASAL 45 ML BOTTLE NS SCH (08:32)
[2019-08-16] MEDS: Z GUARD REMEDY PASTE 57 GM TUBE TOP SCH ×2 (08:32→21:01)
[2019-08-16] MEDS: FAMOTIDINE 20 MG TABLET GT SCH ×2 (08:32→21:01)
[2019-08-16] MEDS: POTASSIUM CHLORIDE 40 MEQ/30 ML LIQUID UDC GT SCH (08:32)
[2019-08-16] MEDS: TRIAMCINOLONE ACET 0.1% CREAM 15 GM TUBE TP SCH ×3 (08:33→21:01)
[2019-08-16] MEDS: SODIUM HYPOCHLORITE 0.125% (QUARTER STRENGTH) 473 ML BOTTLE TP SCH (08:33)
[2019-08-16] MEDS: NYSTATIN CREAM 30 GM TUBE TP SCH ×3 (08:33→21:01)
[2019-08-16 20:00] VITALS: BP 127/66
[2019-08-16] MEDS: ACIDOPHILUS/BULGARICUS CHEW TAB GT SCH (21:01)
[2019-08-16] MEDS: ASCORBIC ACID 500 MG TABLET PO SCH (21:01)
[2019-08-16] MEDS: GLUCERNA 1.2 1000ML LIQUID GT PRN (22:32)
[2019-08-17] MEDS: POLYVINYL ALCOHOL OPHT DROPS 15 ML BOTTLE EACHEYE SCH ×3 (05:47→21:07)
[2019-08-17] MEDS: ARGININE/GLUTAMINE/CALCIUM BMB 1 EACH POWD.PACK GT SCH ×2 (05:47→17:38)
[2019-08-17] MEDS: PROTEIN SUPPLEMENT (PROSTAT) 30 ML LIQUID GT SCH ×3 (05:47→21:07)
[2019-08-17 07:41] VITALS: BP 125/61
[2019-08-17] MEDS: levETIRAcetam 500 MG/5 ML LIQUID UDC GT SCH ×2 (08:33→20:44)
[2019-08-17] MEDS: FAMOTIDINE 20 MG TABLET GT SCH ×2 (08:34→20:44)
[2019-08-17] MEDS: DIGOXIN 125 MCG TABLET GT SCH (08:34)
[2019-08-17] MEDS: POTASSIUM CHLORIDE 40 MEQ/30 ML LIQUID UDC GT SCH (08:35)
[2019-08-17] MEDS: NORMAL SALINE NASAL 45 ML BOTTLE NS SCH (08:35)
[2019-08-17] MEDS: Z GUARD REMEDY PASTE 57 GM TUBE TOP SCH ×2 (08:36→20:44)
[2019-08-17] MEDS: SODIUM HYPOCHLORITE 0.125% (QUARTER STRENGTH) 473 ML BOTTLE TP SCH (08:37)
[2019-08-17] MEDS: NYSTATIN CREAM 30 GM TUBE TP SCH ×3 (08:37→20:44)
[2019-08-17] MEDS: TRIAMCINOLONE ACET 0.1% CREAM 15 GM TUBE TP SCH ×3 (08:37→20:44)
[2019-08-17] MEDS: HYDROGEN PEROXIDE 3% 118 ML BOTTLE TP SCH ×2 (09:00→19:13)
[2019-08-17 20:00] VITALS: BP 146/68
[2019-08-17] MEDS: ACIDOPHILUS/BULGARICUS CHEW TAB GT SCH (20:44)
[2019-08-17] MEDS: ASCORBIC ACID 500 MG TABLET PO SCH (20:44)
[2019-08-18] MEDS: GLUCERNA 1.2 1000ML LIQUID GT PRN (02:22)
[2019-08-18] MEDS: ARGININE/GLUTAMINE/CALCIUM BMB 1 EACH POWD.PACK GT SCH ×2 (05:11→17:05)
[2019-08-18] MEDS: PROTEIN SUPPLEMENT (PROSTAT) 30 ML LIQUID GT SCH ×3 (05:11→21:03)
[2019-08-18] MEDS: POLYVINYL ALCOHOL OPHT DROPS 15 ML BOTTLE EACHEYE SCH ×3 (05:11→21:03)
[2019-08-18 07:48] VITALS: BP 112/59
[2019-08-18] MEDS: levETIRAcetam 500 MG/5 ML LIQUID UDC GT SCH ×2 (08:31→21:02)
[2019-08-18] MEDS: Z GUARD REMEDY PASTE 57 GM TUBE TOP SCH ×2 (08:43→21:02)
[2019-08-18] MEDS: NORMAL SALINE NASAL 45 ML BOTTLE NS SCH (08:43)
[2019-08-18] MEDS: DIGOXIN 125 MCG TABLET GT SCH (08:43)
[2019-08-18] MEDS: FAMOTIDINE 20 MG TABLET GT SCH ×2 (08:43→21:02)
[2019-08-18] MEDS: POTASSIUM CHLORIDE 40 MEQ/30 ML LIQUID UDC GT SCH (08:43)
[2019-08-18] MEDS: SODIUM HYPOCHLORITE 0.125% (QUARTER STRENGTH) 473 ML BOTTLE TP SCH (08:43)
[2019-08-18] MEDS: NYSTATIN CREAM 30 GM TUBE TP SCH ×3 (08:44→21:02)
[2019-08-18] MEDS: TRIAMCINOLONE ACET 0.1% CREAM 15 GM TUBE TP SCH ×3 (08:44→21:02)
[2019-08-18] MEDS: HYDROGEN PEROXIDE 3% 118 ML BOTTLE TP SCH ×2 (09:17→21:01)
[2019-08-18 20:09] VITALS: BP 146/71
[2019-08-18] MEDS: ASCORBIC ACID 500 MG TABLET PO SCH (21:02)
[2019-08-18] MEDS: ACIDOPHILUS/BULGARICUS CHEW TAB GT SCH (21:02)
[2019-08-19] MEDS: ARGININE/GLUTAMINE/CALCIUM BMB 1 EACH POWD.PACK GT SCH ×2 (05:25→18:15)
[2019-08-19] MEDS: POLYVINYL ALCOHOL OPHT DROPS 15 ML BOTTLE EACHEYE SCH ×3 (05:25→22:03)
[2019-08-19] MEDS: PROTEIN SUPPLEMENT (PROSTAT) 30 ML LIQUID GT SCH ×3 (05:25→22:03)
[2019-08-19 08:00] VITALS: BP 116/63
[2019-08-19] MEDS: FAMOTIDINE 20 MG TABLET GT SCH ×2 (08:39→20:35)
[2019-08-19] MEDS: NORMAL SALINE NASAL 45 ML BOTTLE NS SCH (08:39)
[2019-08-19] MEDS: Z GUARD REMEDY PASTE 57 GM TUBE TOP SCH ×2 (08:39→20:35)
[2019-08-19] MEDS: levETIRAcetam 500 MG/5 ML LIQUID UDC GT SCH ×2 (08:39→20:35)
[2019-08-19] MEDS: POTASSIUM CHLORIDE 40 MEQ/30 ML LIQUID UDC GT SCH (08:39)
[2019-08-19] MEDS: DIGOXIN 125 MCG TABLET GT SCH (08:39)
[2019-08-19] MEDS: SODIUM HYPOCHLORITE 0.125% (QUARTER STRENGTH) 473 ML BOTTLE TP SCH (08:40)
[2019-08-19] MEDS: TRIAMCINOLONE ACET 0.1% CREAM 15 GM TUBE TP SCH ×3 (08:40→20:36)
[2019-08-19] MEDS: NYSTATIN CREAM 30 GM TUBE TP SCH ×3 (08:40→20:36)
[2019-08-19] MEDS: HYDROGEN PEROXIDE 3% 118 ML BOTTLE TP SCH ×2 (08:54→21:33)
--- NOTE | 2019-08-19 11:30 | NUR ---
Seen by Aylin MARIE. no new order given.
[2019-08-19] MEDS: GLUCERNA 1.2 1000ML LIQUID GT PRN (11:46)
--- NOTE | 2019-08-19 12:00 | NUR ---
Seen by Xena Rose with no new order.
[2019-08-19 19:40] VITALS: BP 124/67
[2019-08-19] MEDS: ASCORBIC ACID 500 MG TABLET PO SCH (20:35)
[2019-08-19] MEDS: ACIDOPHILUS/BULGARICUS CHEW TAB GT SCH (20:35)
[2019-08-20] MEDS: ARGININE/GLUTAMINE/CALCIUM BMB 1 EACH POWD.PACK GT SCH ×2 (05:13→18:58)
[2019-08-20] MEDS: PROTEIN SUPPLEMENT (PROSTAT) 30 ML LIQUID GT SCH ×3 (05:13→21:50)
[2019-08-20] MEDS: POLYVINYL ALCOHOL OPHT DROPS 15 ML BOTTLE EACHEYE SCH ×3 (05:13→21:50)
[2019-08-20 06:41] LABS: BASOPHILS % (AUTO) 0.5 % (0.0-2.0); EOSINOPHILS # (AUTO) 0.1 K/uL (0.0-0.7); EOSINOPHILS % (AUTO) 2.2 % (0.0-7.0); HEMATOCRIT 34.7 % (31.2-41.9); HEMOGLOBIN 11.7 g/dL (10.9-14.3); LYMPHOCYTES # (AUTO) 1.1 K/uL (20.0-40.0); MEAN CORPUSCULAR HEMOGLOBIN 31.6 uug (24.7-32.8); MEAN CORPUSCULAR HGB CONC 34 g/dL (32.3-35.6); MEAN CORPUSCULAR VOLUME 93.5 fL (75.5-95.3); MONOCYTES # (AUTO) 0.5 K/uL (2.0-10.0); MONOCYTES % (AUTO) 11.6 % (0.0-11.0); NEUTROPHILS # (AUTO) 2.2 K/uL (1.8-8.9); NEUTROPHILS % (AUTO) 56.7 % (38.5-71.5); PLATELET COUNT (AUTO) 86 K/uL (179-408); RED BLOOD CELL COUNT(AUTO) 3.72 MIL/uL (3.63-4.92); WHITE BLOOD COUNT (AUTO) 3.9 K/uL (3.8-11.8)
[2019-08-20 06:58] LABS: CREATININE 0.6 mg/dL (0.6-1.3); MAGNESIUM 2.2 mg/dL (1.8-2.4); PHOSPHOROUS 3.3 mg/dL (2.5-4.9); POTASSIUM 3.8 mmol/L (3.5-5.1)
[2019-08-20 07:48] VITALS: BP 105/52
[2019-08-20 08:10] LABS: BAND % (MANUAL) 4 % (0-10); EOSINOPHILS % (MANUAL) 2 % (0-8); LYMPHOCYTES % (MANUAL) 27 % (20-40); MONOCYTES % (MANUAL) 11 % (2-10); NEUTROPHILS % (MANUAL) 56 % (42-75)
[2019-08-20] MEDS: DIGOXIN 125 MCG TABLET GT SCH (08:11)
[2019-08-20] MEDS: FAMOTIDINE 20 MG TABLET GT SCH ×2 (08:11→21:48)
[2019-08-20] MEDS: levETIRAcetam 500 MG/5 ML LIQUID UDC GT SCH ×2 (08:11→21:48)
[2019-08-20] MEDS: Z GUARD REMEDY PASTE 57 GM TUBE TOP SCH ×2 (08:11→21:49)
[2019-08-20] MEDS: NORMAL SALINE NASAL 45 ML BOTTLE NS SCH (08:11)
[2019-08-20] MEDS: POTASSIUM CHLORIDE 40 MEQ/30 ML LIQUID UDC GT SCH (08:11)
[2019-08-20] MEDS: SODIUM HYPOCHLORITE 0.125% (QUARTER STRENGTH) 473 ML BOTTLE TP SCH (08:12)
[2019-08-20] MEDS: TRIAMCINOLONE ACET 0.1% CREAM 15 GM TUBE TP SCH ×3 (08:12→21:49)
[2019-08-20] MEDS: NYSTATIN CREAM 30 GM TUBE TP SCH ×3 (08:12→21:49)
[2019-08-20] MEDS: HYDROGEN PEROXIDE 3% 118 ML BOTTLE TP SCH ×2 (08:26→21:08)
[2019-08-20 20:00] VITALS: BP 140/78
[2019-08-20] MEDS: ACIDOPHILUS/BULGARICUS CHEW TAB GT SCH (21:48)
[2019-08-20] MEDS: ASCORBIC ACID 500 MG TABLET PO SCH (21:49)
[2019-08-21] MEDS: PROTEIN SUPPLEMENT (PROSTAT) 30 ML LIQUID GT SCH ×3 (05:14→22:18)
[2019-08-21] MEDS: ARGININE/GLUTAMINE/CALCIUM BMB 1 EACH POWD.PACK GT SCH ×2 (05:14→18:26)
[2019-08-21] MEDS: POLYVINYL ALCOHOL OPHT DROPS 15 ML BOTTLE EACHEYE SCH ×3 (05:14→22:18)
[2019-08-21 08:00] VITALS: BP 131/65
[2019-08-21] MEDS: levETIRAcetam 500 MG/5 ML LIQUID UDC GT SCH ×2 (08:26→21:00)
[2019-08-21] MEDS: POTASSIUM CHLORIDE 40 MEQ/30 ML LIQUID UDC GT SCH (08:26)
[2019-08-21] MEDS: FAMOTIDINE 20 MG TABLET GT SCH ×2 (08:26→21:00)
[2019-08-21] MEDS: DIGOXIN 125 MCG TABLET GT SCH (08:26)
[2019-08-21] MEDS: NYSTATIN CREAM 30 GM TUBE TP SCH ×3 (08:27→21:00)
[2019-08-21] MEDS: NORMAL SALINE NASAL 45 ML BOTTLE NS SCH (08:27)
[2019-08-21] MEDS: Z GUARD REMEDY PASTE 57 GM TUBE TOP SCH ×2 (08:27→21:00)
[2019-08-21] MEDS: SODIUM HYPOCHLORITE 0.125% (QUARTER STRENGTH) 473 ML BOTTLE TP SCH (08:27)
[2019-08-21] MEDS: TRIAMCINOLONE ACET 0.1% CREAM 15 GM TUBE TP SCH ×3 (08:27→21:00)
[2019-08-21] MEDS: HYDROGEN PEROXIDE 3% 118 ML BOTTLE TP SCH ×2 (09:00→18:49)
--- NOTE | 2019-08-21 10:00 | NUR ---
Seen and examined by Dr Betancur,no new orders.
[2019-08-21 19:52] VITALS: BP 131/73
[2019-08-21] MEDS: ASCORBIC ACID 500 MG TABLET PO SCH (21:00)
[2019-08-21] MEDS: ACIDOPHILUS/BULGARICUS CHEW TAB GT SCH (21:00)
[2019-08-22] MEDS: PROTEIN SUPPLEMENT (PROSTAT) 30 ML LIQUID GT SCH ×3 (05:44→22:01)
[2019-08-22] MEDS: ARGININE/GLUTAMINE/CALCIUM BMB 1 EACH POWD.PACK GT SCH ×2 (05:44→17:20)
[2019-08-22] MEDS: POLYVINYL ALCOHOL OPHT DROPS 15 ML BOTTLE EACHEYE SCH ×3 (05:44→22:01)
[2019-08-22 07:56] VITALS: BP 120/58
[2019-08-22] MEDS: POTASSIUM CHLORIDE 40 MEQ/30 ML LIQUID UDC GT SCH (08:17)
[2019-08-22] MEDS: FAMOTIDINE 20 MG TABLET GT SCH ×2 (08:17→21:00)
[2019-08-22] MEDS: levETIRAcetam 500 MG/5 ML LIQUID UDC GT SCH ×2 (08:17→21:00)
[2019-08-22] MEDS: DIGOXIN 125 MCG TABLET GT SCH (08:17)
[2019-08-22] MEDS: NYSTATIN CREAM 30 GM TUBE TP SCH ×3 (08:18→21:00)
[2019-08-22] MEDS: NORMAL SALINE NASAL 45 ML BOTTLE NS SCH (08:18)
[2019-08-22] MEDS: SODIUM HYPOCHLORITE 0.125% (QUARTER STRENGTH) 473 ML BOTTLE TP SCH (08:18)
[2019-08-22] MEDS: TRIAMCINOLONE ACET 0.1% CREAM 15 GM TUBE TP SCH ×3 (08:18→21:00)
[2019-08-22] MEDS: Z GUARD REMEDY PASTE 57 GM TUBE TOP SCH ×2 (08:18→21:00)
[2019-08-22] MEDS: HYDROGEN PEROXIDE 3% 118 ML BOTTLE TP SCH ×2 (08:40→18:41)
--- NOTE | 2019-08-22 14:00 | NUR ---
NEW ORDER CARRIED OUT FROM JOSE AVILA (NKenziePKenzie,SX) .
--- NOTE | 2019-08-22 19:01 | NUR ---
DR. FRAZIER AWARE THAT PT. KEEPS PUSHING OUT F/C OUT WITH BALLOON AND REQUIRES FREQUEST RE INSERTION AND NNO BUT ASKED NURSE TO CHECK WITH DR ROBERTS TOO.
[2019-08-22 20:03] VITALS: BP 123/61
[2019-08-22] MEDS: ASCORBIC ACID 500 MG TABLET PO SCH (21:00)
[2019-08-22] MEDS: ACIDOPHILUS/BULGARICUS CHEW TAB GT SCH (21:00)
[2019-08-23] MEDS: ARGININE/GLUTAMINE/CALCIUM BMB 1 EACH POWD.PACK GT SCH ×2 (05:22→17:37)
[2019-08-23] MEDS: PROTEIN SUPPLEMENT (PROSTAT) 30 ML LIQUID GT SCH ×3 (05:22→22:24)
[2019-08-23] MEDS: POLYVINYL ALCOHOL OPHT DROPS 15 ML BOTTLE EACHEYE SCH ×3 (05:22→22:24)
[2019-08-23 07:34] VITALS: BP 136/71
[2019-08-23] MEDS: HYDROGEN PEROXIDE 3% 118 ML BOTTLE TP SCH ×2 (08:03→18:33)
[2019-08-23] MEDS: levETIRAcetam 500 MG/5 ML LIQUID UDC GT SCH ×2 (08:38→20:49)
[2019-08-23] MEDS: FAMOTIDINE 20 MG TABLET GT SCH ×2 (08:39→20:49)
[2019-08-23] MEDS: DIGOXIN 125 MCG TABLET GT SCH (08:39)
[2019-08-23] MEDS: POTASSIUM CHLORIDE 40 MEQ/30 ML LIQUID UDC GT SCH (08:39)
[2019-08-23] MEDS: Z GUARD REMEDY PASTE 57 GM TUBE TOP SCH ×2 (08:40→20:50)
[2019-08-23] MEDS: NORMAL SALINE NASAL 45 ML BOTTLE NS SCH (08:40)
[2019-08-23] MEDS: SODIUM HYPOCHLORITE 0.125% (QUARTER STRENGTH) 473 ML BOTTLE TP SCH (08:40)
[2019-08-23] MEDS: TRIAMCINOLONE ACET 0.1% CREAM 15 GM TUBE TP SCH ×3 (08:40→20:50)
[2019-08-23] MEDS: NYSTATIN CREAM 30 GM TUBE TP SCH ×3 (08:41→20:50)
--- NOTE | 2019-08-23 09:28 | NUR ---
HARLEY COLEY (PT'S DTR)GAVE CONSENT FOR SERIAL DEBRIDEMENT OF SACRAL WOUND TOP 2 NURSES BY PHONE .
[2019-08-23] MEDS: GLUCERNA 1.2 1000ML LIQUID GT PRN (12:34)
--- NOTE | 2019-08-23 16:42 | NUR ---
DR. ALEJANDRA HOUGH WAS PAGED RE:PT.PUSHING OUT F/C WITH BALLOON AND FREQUENT INSERTION OF NEW F/C DONE AND BIGGER SIZE ALREADY TRIED AND STILL PUSHES IT OUT.
--- NOTE | 2019-08-23 18:01 | NUR ---
DR. GALDAMEZ CALLED BACK AND WITH NEW ORDERS CARRIED OUT.
[2019-08-23] MEDS: ACIDOPHILUS/BULGARICUS CHEW TAB GT SCH (20:49)
[2019-08-23] MEDS: ASCORBIC ACID 500 MG TABLET PO SCH (20:50)
[2019-08-23 22:32] VITALS: BP 136/64
[2019-08-24] MEDS: ARGININE/GLUTAMINE/CALCIUM BMB 1 EACH POWD.PACK GT SCH ×2 (05:35→17:42)
[2019-08-24] MEDS: PROTEIN SUPPLEMENT (PROSTAT) 30 ML LIQUID GT SCH ×3 (05:35→21:30)
[2019-08-24] MEDS: POLYVINYL ALCOHOL OPHT DROPS 15 ML BOTTLE EACHEYE SCH ×3 (05:35→21:30)
[2019-08-24 07:42] VITALS: BP 134/76
[2019-08-24] MEDS: levETIRAcetam 500 MG/5 ML LIQUID UDC GT SCH ×2 (08:24→20:45)
[2019-08-24] MEDS: DIGOXIN 125 MCG TABLET GT SCH (08:24)
[2019-08-24] MEDS: NORMAL SALINE NASAL 45 ML BOTTLE NS SCH (08:25)
[2019-08-24] MEDS: POTASSIUM CHLORIDE 40 MEQ/30 ML LIQUID UDC GT SCH (08:25)
[2019-08-24] MEDS: SODIUM HYPOCHLORITE 0.125% (QUARTER STRENGTH) 473 ML BOTTLE TP SCH (08:25)
[2019-08-24] MEDS: Z GUARD REMEDY PASTE 57 GM TUBE TOP SCH ×2 (08:25→20:45)
[2019-08-24] MEDS: TRIAMCINOLONE ACET 0.1% CREAM 15 GM TUBE TP SCH ×3 (08:25→20:45)
[2019-08-24] MEDS: FAMOTIDINE 20 MG TABLET GT SCH ×2 (08:25→20:45)
[2019-08-24] MEDS: NYSTATIN CREAM 30 GM TUBE TP SCH ×3 (08:26→20:46)
[2019-08-24] MEDS: HYDROGEN PEROXIDE 3% 118 ML BOTTLE TP SCH ×2 (09:54→21:25)
[2019-08-24] MEDS: GLUCERNA 1.2 1000ML LIQUID GT PRN (11:48)
[2019-08-24] MEDS: ACETAMINOPHEN 650 MG/20 ML UDC- SA PATIENTS-PAIN ONLY GT PRN (11:50)
[2019-08-24] MEDS: ACIDOPHILUS/BULGARICUS CHEW TAB GT SCH (20:45)
[2019-08-24] MEDS: ASCORBIC ACID 500 MG TABLET PO SCH (20:45)
[2019-08-24 21:59] VITALS: BP 134/72
[2019-08-24] MEDS: ACETAMINOPHEN 650 MG/20 ML UDC- SA PATIENTS-FEVER ONLY GT PRN (23:15)
--- NOTE | 2019-08-24 23:15 | NUR ---
Patient feels warm, checked temperature orally was 101.2, cooling measures done, fluids given as ordered, no signs of any respiratory distress noted, suctioned with pale yellow secretions, connected to vent on prescribed settings, kept clean and comfortable, will continue monitor.
[2019-08-25] MEDS: POLYVINYL ALCOHOL OPHT DROPS 15 ML BOTTLE EACHEYE SCH ×3 (05:04→21:15)
[2019-08-25] MEDS: ARGININE/GLUTAMINE/CALCIUM BMB 1 EACH POWD.PACK GT SCH ×2 (05:04→18:15)
[2019-08-25] MEDS: PROTEIN SUPPLEMENT (PROSTAT) 30 ML LIQUID GT SCH ×3 (05:04→21:15)
--- NOTE | 2019-08-25 06:55 | NUR ---
Paged Dr. Dang and called back with new labs, COVID- 19 test and CXR now, noted and carried out.
[2019-08-25 07:42] VITALS: BP 133/55
[2019-08-25 07:51] LABS: BASOPHILS # (AUTO) 0.1 K/uL (0.0-8.0); BASOPHILS % (AUTO) 0.8 % (0.0-2.0); EOSINOPHILS # (AUTO) 0.1 K/uL (0.0-0.7); EOSINOPHILS % (AUTO) 0.9 % (0.0-7.0); HEMOGLOBIN 11.7 g/dL (10.9-14.3); LYMPHOCYTES # (AUTO) 1.4 K/uL (20.0-40.0); LYMPHOCYTES % (AUTO) 23.6 % (20.5-51.5); MEAN CORPUSCULAR HEMOGLOBIN 30.8 uug (24.7-32.8); MEAN CORPUSCULAR HGB CONC 33 g/dL (32.3-35.6); MEAN CORPUSCULAR VOLUME 94.5 fL (75.5-95.3); MONOCYTES # (AUTO) 0.6 K/uL (2.0-10.0); MONOCYTES % (AUTO) 10.6 % (0.0-11.0); NEUTROPHILS # (AUTO) 3.8 K/uL (1.8-8.9); NEUTROPHILS % (AUTO) 64.1 % (38.5-71.5); PLATELET COUNT (AUTO) 87 K/uL (179-408); RED BLOOD CELL COUNT(AUTO) 3.81 MIL/uL (3.63-4.92); WHITE BLOOD COUNT (AUTO) 5.9 K/uL (3.8-11.8)
--- NOTE | 2019-08-25 08:00 | NUR ---
CONTACT AND DROPLET ISOLATION MEASURES STARTED.
[2019-08-25 08:05] LABS: BILIRUBIN,TOTAL 0.6 mg/dL (0.2-1.0); CREATININE 0.6 mg/dL (0.6-1.3); POTASSIUM 3.7 mmol/L (3.5-5.1); TOTAL PROTEIN, SERUM 7.6 g/dL (6.4-8.2)
--- NOTE | 2019-08-25 08:05 | NUR ---
TEMPERATURE VERIFIED RECTALLY AND IS 100.6F AT THIS TIME,WILL CONT. TO MONITOR.
--- NOTE | 2019-08-25 08:38 | NUR ---
CHRISTIE HANNAH CNO AND PT'S DTRKenzie SOUZA WAS AWARE OF PT'S CONDITION AND TX AND THAT NEEDS TO BE MOVED TO ROOM 421 PRECAUTION AND IN AGREEMENT WITH ORDERS.
[2019-08-25 08:44] LABS: BAND % (MANUAL) 3 % (0-10); EOSINOPHILS % (MANUAL) 1 % (0-8); LYMPHOCYTES % (MANUAL) 24 % (20-40); MONOCYTES % (MANUAL) 8 % (2-10); NEUTROPHILS % (MANUAL) 64 % (42-75)
[2019-08-25] MEDS: ACETAMINOPHEN 650 MG/20 ML UDC- SA PATIENTS-PAIN ONLY GT PRN ×2 (09:02→14:26)
[2019-08-25] MEDS: levETIRAcetam 500 MG/5 ML LIQUID UDC GT SCH ×2 (09:02→20:54)
[2019-08-25] MEDS: FAMOTIDINE 20 MG TABLET GT SCH ×2 (09:04→20:54)
[2019-08-25] MEDS: DIGOXIN 125 MCG TABLET GT SCH (09:04)
[2019-08-25] MEDS: POTASSIUM CHLORIDE 40 MEQ/30 ML LIQUID UDC GT SCH (09:04)
[2019-08-25] MEDS: Z GUARD REMEDY PASTE 57 GM TUBE TOP SCH ×2 (09:14→20:54)
[2019-08-25] MEDS: NORMAL SALINE NASAL 45 ML BOTTLE NS SCH (09:14)
[2019-08-25] MEDS: SODIUM HYPOCHLORITE 0.125% (QUARTER STRENGTH) 473 ML BOTTLE TP SCH (09:30)
[2019-08-25] MEDS: NYSTATIN CREAM 30 GM TUBE TP SCH ×3 (09:30→20:54)
[2019-08-25] MEDS: TRIAMCINOLONE ACET 0.1% CREAM 15 GM TUBE TP SCH ×3 (09:30→20:54)
[2019-08-25] MEDS: HYDROGEN PEROXIDE 3% 118 ML BOTTLE TP SCH ×2 (09:50→21:38)
--- NOTE | 2019-08-25 10:22 | NUR ---
URINE SAMPLE COLLECTED AT THIS TIME.
[2019-08-25 10:37] LABS: *BILIRUBIN,URIN NEGATIVE (NEGATIVE); *BLOOD, URINE 3+ (NEGATIVE); *CLARITY,URINE SLIGHTLY CLOUDY (CLEAR); *COLOR,URINE DARK YELLOW (YELLOW); *KETONES,URINE NEGATIVE (NEGATIVE); LEUKOCYTE ESTERASE ,URINE 3+ (NEGATIVE); NITRITE, URINE NEGATIVE (NEGATIVE); UGLUCOSE NEGATIVE (NEGATIVE)
[2019-08-25 10:42] LABS: BACTERIA,URINE MANY /HPF (NONE SEEN); RBC,URINE TNTC /HPF (0-3); SQUAMOUS EPITHELIAL CELL,UR MODERATE /HPF (NONE SEEN); WBC,URINE TNTC /HPF (0-3)
[2019-08-25 10:43] LABS: URINE AMORPHOUS URATE MANY /HPF
--- NOTE | 2019-08-25 11:59 | NUR ---
RECTAL TEMPERATURE NOTED 101 F AFTER BED BATH AND TYLENOL.PT. KEPT COOL.
--- NOTE | 2019-08-25 12:21 | NUR ---
DR. PHAN WAS PAGED AND AWAITING FOR CALL BACK.(DR VALLE AWARE ALSO RE: PT'S CONDITION AND ASKED NURSE TO FOLLOW UP WITH DR. PHAN AND ASKED THEM IF HE WANTS I.D CONSULT TOO.
--- NOTE | 2019-08-25 12:51 | NUR ---
DR. ALEJANDRA HOUGH CALLED BACK AND AWARE OF PT'S CONDITION AND WITH NEW ORDERS CARRIED OUT.
--- NOTE | 2019-08-25 12:55 | NUR ---
PT'S DTR. WAS NOTIFIED ABOUT NEW ORDER FOR ATB IV AND IN AGREEMENT AND ORDER CARRIED OUT.
[2019-08-25] MEDS: GLUCERNA 1.2 1000ML LIQUID GT PRN (14:26)
--- NOTE | 2019-08-25 15:34 | NUR ---
ANDRE IV NOT COVERED BY INSURANCE CH. NURSE SPOKE TO IV PHARMACIST FROM [facility] AND [facility] WILL PROVIDE IT.
[2019-08-25] MEDS: PIPERACILLIN SODIUM/TAZOBACTAM 3.375 G in IV DEXTROSE 5% 50 ML IV SCH ×2 (16:29→22:24)
[2019-08-25 20:44] VITALS: BP 126/54
[2019-08-25] MEDS: ACIDOPHILUS/BULGARICUS CHEW TAB GT SCH (20:54)
[2019-08-25] MEDS: ASCORBIC ACID 500 MG TABLET PO SCH (20:54)
--- NOTE | 2019-08-25 23:04 | NUR ---
Afebrile, trach intact and patent, no respiratory distress noted, suctioned with yellow secretions, connected to vent, voiding freely, sacral wound treatment done, turned and repositioned, kept clean and comfortable. Addendum: 08/25/19 at 2306 by DERIAN MANZANO RN on Zosyn IV for fever, no adverse reactions noted at this time, kept clean and comfortable, will continue monitor.
[2019-08-26] MEDS: PROTEIN SUPPLEMENT (PROSTAT) 30 ML LIQUID GT SCH ×3 (05:20→21:59)
[2019-08-26] MEDS: ARGININE/GLUTAMINE/CALCIUM BMB 1 EACH POWD.PACK GT SCH ×2 (05:20→17:42)
[2019-08-26] MEDS: POLYVINYL ALCOHOL OPHT DROPS 15 ML BOTTLE EACHEYE SCH ×3 (05:20→21:59)
[2019-08-26] MEDS: PIPERACILLIN SODIUM/TAZOBACTAM 3.375 G in IV DEXTROSE 5% 50 ML IV SCH ×3 (05:50→21:59)
[2019-08-26 07:35] VITALS: BP 110/71
[2019-08-26] MEDS: DIGOXIN 125 MCG TABLET GT SCH (09:00)
[2019-08-26] MEDS: NYSTATIN CREAM 30 GM TUBE TP SCH ×3 (09:00→21:59)
[2019-08-26] MEDS: NORMAL SALINE NASAL 45 ML BOTTLE NS SCH (09:00)
[2019-08-26] MEDS: levETIRAcetam 500 MG/5 ML LIQUID UDC GT SCH ×2 (09:00→21:58)
[2019-08-26] MEDS: FAMOTIDINE 20 MG TABLET GT SCH ×2 (09:00→21:58)
[2019-08-26] MEDS: SODIUM HYPOCHLORITE 0.125% (QUARTER STRENGTH) 473 ML BOTTLE TP SCH (09:00)
[2019-08-26] MEDS: HYDROGEN PEROXIDE 3% 118 ML BOTTLE TP SCH ×2 (09:00→20:56)
[2019-08-26] MEDS: TRIAMCINOLONE ACET 0.1% CREAM 15 GM TUBE TP SCH ×3 (09:00→21:59)
[2019-08-26] MEDS: Z GUARD REMEDY PASTE 57 GM TUBE TOP SCH ×2 (09:00→21:58)
[2019-08-26] MEDS: POTASSIUM CHLORIDE 40 MEQ/30 ML LIQUID UDC GT SCH (09:00)
--- NOTE | 2019-08-26 13:00 | NUR ---
SEEN BY DR. OSHEA AND WITH NNO.
--- NOTE | 2019-08-26 13:16 | NUR ---
PT. WAS SEEN AND EXAMINED BY ROOPA Dixon AND WITH NEW ORDER FOR UROLOGY CONSULTATION.
[2019-08-26 20:42] VITALS: BP 125/62
[2019-08-26] MEDS: ASCORBIC ACID 500 MG TABLET PO SCH (21:58)
[2019-08-26] MEDS: ACIDOPHILUS/BULGARICUS CHEW TAB GT SCH (21:58)
--- NOTE | 2019-08-26 21:59 | NUR ---
I received a phone call from Edil in the lab and he stated that , " patient result for COVI-19 is negative."
[2019-08-26] MEDS: GLUCERNA 1.2 1000ML LIQUID GT PRN (22:00)
--- NOTE | 2019-08-26 22:01 | NUR ---
Patient is afebrile, no respiratory distress, connected to vent on prescribed settings, 02 sat is 98%, voiding freely to yellow urine, good jaswant care rendered, sacral wound treatment done, turned and repositioned, kept clean and comfortable.
[2019-08-27] MEDS: PROTEIN SUPPLEMENT (PROSTAT) 30 ML LIQUID GT SCH ×3 (06:07→22:00)
[2019-08-27] MEDS: POLYVINYL ALCOHOL OPHT DROPS 15 ML BOTTLE EACHEYE SCH ×3 (06:07→22:00)
[2019-08-27] MEDS: PIPERACILLIN SODIUM/TAZOBACTAM 3.375 G in IV DEXTROSE 5% 50 ML IV SCH ×3 (06:07→22:00)
[2019-08-27] MEDS: ARGININE/GLUTAMINE/CALCIUM BMB 1 EACH POWD.PACK GT SCH ×2 (06:07→18:32)
[2019-08-27 07:31] VITALS: BP 123/52
[2019-08-27] MEDS: levETIRAcetam 500 MG/5 ML LIQUID UDC GT SCH ×2 (08:45→20:49)
[2019-08-27] MEDS: NYSTATIN CREAM 30 GM TUBE TP SCH ×2 (08:46)
[2019-08-27] MEDS: FAMOTIDINE 20 MG TABLET GT SCH ×2 (08:46→20:50)
[2019-08-27] MEDS: TRIAMCINOLONE ACET 0.1% CREAM 15 GM TUBE TP SCH ×2 (08:46)
[2019-08-27] MEDS: POTASSIUM CHLORIDE 40 MEQ/30 ML LIQUID UDC GT SCH (08:46)
[2019-08-27] MEDS: SODIUM HYPOCHLORITE 0.125% (QUARTER STRENGTH) 473 ML BOTTLE TP SCH (08:46)
[2019-08-27] MEDS: NORMAL SALINE NASAL 45 ML BOTTLE NS SCH (08:46)
[2019-08-27] MEDS: Z GUARD REMEDY PASTE 57 GM TUBE TOP SCH ×2 (08:46→20:52)
[2019-08-27] MEDS: DIGOXIN 125 MCG TABLET GT SCH (08:46)
[2019-08-27] MEDS: HYDROGEN PEROXIDE 3% 118 ML BOTTLE TP SCH ×2 (09:07→21:12)
--- NOTE | 2019-08-27 11:30 | NUR ---
Seen and examined by Aylin Weesk Np aware of the patient condition,and urine culture result,she request to call ID Dr Huerta for consult.
--- NOTE | 2019-08-27 12:48 | NUR ---
INTERDISCIPLINARY PLAN OF CARE CONFERENCE was held today. Patient's daughter was not available to participate in the meeting. Dr. Murguia and the Interdisciplinary Team reviewed the current plan of care in detail. RN reported on patient's current medical condition, findings of recent labs, and about the current treatments patient has been receiving. See RN IDT conference notes. See all also other disciplines IDT notes and physician's progress notes for additional details.
--- NOTE | 2019-08-27 13:25 | NUR ---
Pharmacy Update from Today's 08/27/19 IDT Meeting VS: Temp 98.6 BP 123/52 HR 65 LABS: (from 08/25/19) Wbc 5.9 H/H 11.7/36 Plt 87 Na 139 K 3.7 Cl 102 CO2 33 BUN/Scr 31/0.6 BS 103 Ca 9.1 MEDICATION USE REVIEWED: > Pt not on any anti-psych medications > Pt now on Keppra 750mg q12hr since 04/29/19 per neuro; Obese CrCl estimation 84.5 ml/min, renal function ok for current dose. No seizures noted > Pt on famotidine 20mg q12hr, renal fxn ok for dose > Pt on digoxin 125mcg daily since 04/27/18. Last level on 02/04/19 was 0.6 (0.5-2). Within therapeutic range. > Pt on KCl 10meq daily, last K 3.8 PRN MED USAGE: (July) Tylenol for pain/temp used x5 for pain, x3 temp NEW ORDERS NOTED: > Zosyn 08/24-08/31 for fevers, UCx 08/24 pending gram neg rods > Covid test 08/24 negatives > Per Rx rec, MOM PRN d/c'd 08/12 d/t lack of use Patient was reviewed and discussed in depth with no medication issues noted at this time. Please see above for last Rx recommendation, no further recs as pt is otherwise stable on current regimen. Will continue to follow
--- NOTE | 2019-08-27 16:30 | NUR ---
Spoke to Ansley Pocket Setter Lockstitch seasonal driver for Dr Huerta,aware of the labs ,urine culture results,and aware pt is getting Zosyn ordered by Dr Laurence Panchal TECH BRAZER TESTER will be here later and examine the patient.
[2019-08-27 20:42] VITALS: BP 134/70
[2019-08-27] MEDS: ACIDOPHILUS/BULGARICUS CHEW TAB GT SCH (20:49)
[2019-08-27] MEDS: ASCORBIC ACID 500 MG TABLET PO SCH (20:51)
[2019-08-28] MEDS: GLUCERNA 1.2 1000ML LIQUID GT PRN (03:00)
--- NOTE | 2019-08-28 03:10 | NUR ---
PT ON CONT HT 50 VENT WITH SHILEY #[address] AND SECURED, WITH SAME CURRENT VENT SETTINGS, PT DOES ASSIST AT TIMES, STRONG COUGH EFFORT, PT DOES ASSIST AT TIMES, SUCTIONED LIGHT PALE YELL TINGE SECRETIONS, CHECK CUFF, CHANGE HME, TRACH CARE DONE, ALL VENT ALARMS GOOD, NO VENT CHANGES MADE, PT STABLE. Leif PETERSP Addendum: 08/28/19 at 0311 by CHRISTIE BHATIA RT Amended: Links added.
[2019-08-28] MEDS: PIPERACILLIN SODIUM/TAZOBACTAM 3.375 G in IV DEXTROSE 5% 50 ML IV SCH ×3 (05:18→22:30)
[2019-08-28] MEDS: POLYVINYL ALCOHOL OPHT DROPS 15 ML BOTTLE EACHEYE SCH ×3 (06:11→22:28)
[2019-08-28] MEDS: ARGININE/GLUTAMINE/CALCIUM BMB 1 EACH POWD.PACK GT SCH ×2 (06:11→17:58)
[2019-08-28] MEDS: PROTEIN SUPPLEMENT (PROSTAT) 30 ML LIQUID GT SCH ×3 (06:11→22:28)
[2019-08-28 07:30] LABS: CREATININE 0.6 mg/dL (0.6-1.3); POTASSIUM 4.1 mmol/L (3.5-5.1)
[2019-08-28 07:37] LABS: BASOPHILS # (AUTO) 0.1 K/uL (0.0-8.0); EOSINOPHILS # (AUTO) 0.3 K/uL (0.0-0.7); EOSINOPHILS % (AUTO) 4.6 % (0.0-7.0); HEMATOCRIT 33.4 % (31.2-41.9); HEMOGLOBIN 11.5 g/dL (10.9-14.3); LYMPHOCYTES # (AUTO) 1.9 K/uL (20.0-40.0); LYMPHOCYTES % (AUTO) 28.7 % (20.5-51.5); MEAN CORPUSCULAR HEMOGLOBIN 32.2 uug (24.7-32.8); MEAN CORPUSCULAR HGB CONC 35 g/dL (32.3-35.6); MEAN CORPUSCULAR VOLUME 93.3 fL (75.5-95.3); MONOCYTES # (AUTO) 0.8 K/uL (2.0-10.0); MONOCYTES % (AUTO) 11.6 % (0.0-11.0); NEUTROPHILS # (AUTO) 3.5 K/uL (1.8-8.9); NEUTROPHILS % (AUTO) 54.1 % (38.5-71.5); PLATELET COUNT (AUTO) 96 K/uL (179-408); RED BLOOD CELL COUNT(AUTO) 3.58 MIL/uL (3.63-4.92); WHITE BLOOD COUNT (AUTO) 6.5 K/uL (3.8-11.8)
[2019-08-28 07:41] VITALS: BP 134/67
[2019-08-28 07:45] VITALS: BP 134/67
[2019-08-28 08:18] LABS: EOSINOPHILS % (MANUAL) 3 % (0-8); LYMPHOCYTES % (MANUAL) 31 % (20-40); MONOCYTES % (MANUAL) 12 % (2-10); NEUTROPHILS % (MANUAL) 54 % (42-75)
[2019-08-28] MEDS: HYDROGEN PEROXIDE 3% 118 ML BOTTLE TP SCH ×2 (09:00→21:48)
[2019-08-28] MEDS: levETIRAcetam 500 MG/5 ML LIQUID UDC GT SCH ×2 (09:35→20:42)
[2019-08-28] MEDS: FAMOTIDINE 20 MG TABLET GT SCH ×2 (09:36→20:43)
[2019-08-28] MEDS: DIGOXIN 125 MCG TABLET GT SCH (09:36)
[2019-08-28] MEDS: POTASSIUM CHLORIDE 40 MEQ/30 ML LIQUID UDC GT SCH (09:37)
[2019-08-28] MEDS: NORMAL SALINE NASAL 45 ML BOTTLE NS SCH (09:37)
[2019-08-28] MEDS: SODIUM HYPOCHLORITE 0.125% (QUARTER STRENGTH) 473 ML BOTTLE TP SCH (09:46)
[2019-08-28] MEDS: TRIAMCINOLONE ACET 0.1% CREAM 15 GM TUBE TP SCH (09:46)
[2019-08-28] MEDS: NYSTATIN CREAM 30 GM TUBE TP SCH (09:47)
[2019-08-28] MEDS: Z GUARD REMEDY PASTE 57 GM TUBE TOP SCH ×2 (09:51→20:44)
--- NOTE | 2019-08-28 18:00 | NUR ---
Continue on ivatb ,no adverse reaction noted,Iv site intact.afebrile.
[2019-08-28 20:00] VITALS: BP 139/64
[2019-08-28] MEDS: ACIDOPHILUS/BULGARICUS CHEW TAB GT SCH (20:42)
[2019-08-28] MEDS: ASCORBIC ACID 500 MG TABLET PO SCH (20:44)
[2019-08-29] MEDS: GLUCERNA 1.2 1000ML LIQUID GT PRN (06:00)
[2019-08-29] MEDS: ARGININE/GLUTAMINE/CALCIUM BMB 1 EACH POWD.PACK GT SCH ×2 (06:08→17:06)
[2019-08-29] MEDS: PROTEIN SUPPLEMENT (PROSTAT) 30 ML LIQUID GT SCH ×3 (06:08→21:05)
[2019-08-29] MEDS: POLYVINYL ALCOHOL OPHT DROPS 15 ML BOTTLE EACHEYE SCH ×3 (06:08→21:05)
[2019-08-29] MEDS: PIPERACILLIN SODIUM/TAZOBACTAM 3.375 G in IV DEXTROSE 5% 50 ML IV SCH ×3 (06:29→21:07)
[2019-08-29] MEDS: HYDROGEN PEROXIDE 3% 118 ML BOTTLE TP SCH ×2 (07:11→21:20)
[2019-08-29 07:26] VITALS: BP 133/58
[2019-08-29] MEDS: levETIRAcetam 500 MG/5 ML LIQUID UDC GT SCH ×2 (08:30→21:03)
[2019-08-29] MEDS: DIGOXIN 125 MCG TABLET GT SCH (08:30)
[2019-08-29] MEDS: NYSTATIN CREAM 30 GM TUBE TP SCH (08:30)
[2019-08-29] MEDS: SODIUM HYPOCHLORITE 0.125% (QUARTER STRENGTH) 473 ML BOTTLE TP SCH (08:30)
[2019-08-29] MEDS: FAMOTIDINE 20 MG TABLET GT SCH ×2 (08:30→21:03)
[2019-08-29] MEDS: TRIAMCINOLONE ACET 0.1% CREAM 15 GM TUBE TP SCH (08:30)
[2019-08-29] MEDS: POTASSIUM CHLORIDE 40 MEQ/30 ML LIQUID UDC GT SCH (08:30)
[2019-08-29] MEDS: NORMAL SALINE NASAL 45 ML BOTTLE NS SCH (08:30)
[2019-08-29] MEDS: Z GUARD REMEDY PASTE 57 GM TUBE TOP SCH ×2 (08:30→21:04)
--- NOTE | 2019-08-29 17:00 | NUR ---
Sacral wound debridement done by Rosi EMERY, continue monitoring for bleeding, cleaned and repositioned for comfort.
--- NOTE | 2019-08-29 18:40 | NUR ---
SEEM AND EXAMINED BY DR. VALLE, WITH NEW ORDERS, NOTED AND CARRIED OUT.
[2019-08-29 20:06] VITALS: BP 125/86
[2019-08-29] MEDS: ACIDOPHILUS/BULGARICUS CHEW TAB GT SCH (21:02)
[2019-08-29] MEDS: ASCORBIC ACID 500 MG TABLET PO SCH (21:04)
[2019-08-30] MEDS: GLUCERNA 1.2 1000ML LIQUID GT PRN (04:04)
[2019-08-30] MEDS: POLYVINYL ALCOHOL OPHT DROPS 15 ML BOTTLE EACHEYE SCH ×3 (06:05→21:30)
[2019-08-30] MEDS: PROTEIN SUPPLEMENT (PROSTAT) 30 ML LIQUID GT SCH ×3 (06:05→21:30)
[2019-08-30] MEDS: ARGININE/GLUTAMINE/CALCIUM BMB 1 EACH POWD.PACK GT SCH ×2 (06:05→17:41)
[2019-08-30] MEDS: PIPERACILLIN SODIUM/TAZOBACTAM 3.375 G in IV DEXTROSE 5% 50 ML IV SCH ×3 (06:32→22:00)
[2019-08-30 07:40] VITALS: BP 136/67
[2019-08-30] MEDS: ACETAMINOPHEN 650 MG/20 ML UDC- SA PATIENTS-PAIN ONLY GT PRN ×2 (09:00→17:44)
[2019-08-30] MEDS: HYDROGEN PEROXIDE 3% 118 ML BOTTLE TP SCH ×2 (09:00→20:26)
--- NOTE | 2019-08-30 09:00 | NUR ---
Seen by Dr. Mixon, new order given to d/c bladder scan q 6 hrs.
[2019-08-30] MEDS: levETIRAcetam 500 MG/5 ML LIQUID UDC GT SCH ×2 (09:23→20:37)
[2019-08-30] MEDS: FAMOTIDINE 20 MG TABLET GT SCH ×2 (09:24→20:37)
[2019-08-30] MEDS: DIGOXIN 125 MCG TABLET GT SCH (09:24)
[2019-08-30] MEDS: POTASSIUM CHLORIDE 40 MEQ/30 ML LIQUID UDC GT SCH (09:48)
[2019-08-30] MEDS: NORMAL SALINE NASAL 45 ML BOTTLE NS SCH (09:48)
[2019-08-30] MEDS: NYSTATIN CREAM 30 GM TUBE TP SCH (09:49)
[2019-08-30] MEDS: Z GUARD REMEDY PASTE 57 GM TUBE TOP SCH ×2 (09:49→20:37)
[2019-08-30] MEDS: TRIAMCINOLONE ACET 0.1% CREAM 15 GM TUBE TP SCH (09:49)
[2019-08-30] MEDS: SODIUM HYPOCHLORITE 0.125% (QUARTER STRENGTH) 473 ML BOTTLE TP SCH (09:49)
[2019-08-30 20:00] VITALS: BP 124/64
[2019-08-30] MEDS: ACIDOPHILUS/BULGARICUS CHEW TAB GT SCH (20:37)
[2019-08-30] MEDS: ASCORBIC ACID 500 MG TABLET PO SCH (20:37)
--- NOTE | 2019-08-30 21:03 | NUR ---
MIGUEL SHELDON NP CAME AND ORDERED TO DISCONTINUE SYLVIA ABX, AND TO CALL DR. TADEO [phone] IF TEMP > 100.4 OR CHANGE IN CLINICAL STATUS/INCREASE OXYGEN REQUIREMENT.
[2019-08-31] MEDS: PIPERACILLIN SODIUM/TAZOBACTAM 3.375 G in IV DEXTROSE 5% 50 ML IV SCH ×3 (05:16→21:58)
[2019-08-31] MEDS: ARGININE/GLUTAMINE/CALCIUM BMB 1 EACH POWD.PACK GT SCH ×2 (06:20→17:25)
[2019-08-31] MEDS: PROTEIN SUPPLEMENT (PROSTAT) 30 ML LIQUID GT SCH ×3 (06:20→21:06)
[2019-08-31] MEDS: POLYVINYL ALCOHOL OPHT DROPS 15 ML BOTTLE EACHEYE SCH ×3 (06:20→21:06)
[2019-08-31] MEDS: HYDROGEN PEROXIDE 3% 118 ML BOTTLE TP SCH ×2 (07:16→21:31)
[2019-08-31] MEDS: levETIRAcetam 500 MG/5 ML LIQUID UDC GT SCH ×2 (08:49→20:40)
[2019-08-31] MEDS: DIGOXIN 125 MCG TABLET GT SCH (08:50)
[2019-08-31] MEDS: FAMOTIDINE 20 MG TABLET GT SCH ×2 (08:50→20:42)
[2019-08-31] MEDS: NORMAL SALINE NASAL 45 ML BOTTLE NS SCH (08:50)
[2019-08-31] MEDS: POTASSIUM CHLORIDE 40 MEQ/30 ML LIQUID UDC GT SCH (08:50)
[2019-08-31] MEDS: NYSTATIN CREAM 30 GM TUBE TP SCH (08:51)
[2019-08-31] MEDS: Z GUARD REMEDY PASTE 57 GM TUBE TOP SCH ×2 (08:51→20:42)
[2019-08-31] MEDS: TRIAMCINOLONE ACET 0.1% CREAM 15 GM TUBE TP SCH (08:51)
[2019-08-31] MEDS: SODIUM HYPOCHLORITE 0.125% (QUARTER STRENGTH) 473 ML BOTTLE TP SCH (08:51)
[2019-08-31] MEDS: ACETAMINOPHEN 650 MG/20 ML UDC- SA PATIENTS-PAIN ONLY GT PRN (08:52)
[2019-08-31] MEDS: GLUCERNA 1.2 1000ML LIQUID GT PRN (11:30)
--- NOTE | 2019-08-31 20:30 | NUR ---
Received pt on HT-50 ventilator with the following settings of AC-12, Vt-550, PEEP+5, FIO2-30%, trached with Shiley#6 DCT trach, which is in the place and secure. No respiratory distress noted. Airway care done, pt responded to physical stimuli. HME, trach tube zavala and Sx Quispe changed. Resus. bag and back up trach at bedside. Vent and alarms checked and reset.
[2019-08-31] MEDS: ACIDOPHILUS/BULGARICUS CHEW TAB GT SCH (20:40)
[2019-08-31] MEDS: ASCORBIC ACID 500 MG TABLET PO SCH (20:42)
[2019-08-31 22:09] VITALS: BP 130/65
--- NOTE | 2019-08-31 23:02 | NUR ---
Patient is Afebrile, still on Zosyn IV for pseudomonas in the sputum, no adverse reactions noted, voiding freely to yellow urine, good jaswant care rendered, sacral wound is clean, no bleeding noted, treatment done as ordered, turned and repositioned, kept clean and comfortable.
[2019-09-01] MEDS: ARGININE/GLUTAMINE/CALCIUM BMB 1 EACH POWD.PACK GT SCH ×2 (05:02→17:35)
[2019-09-01] MEDS: POLYVINYL ALCOHOL OPHT DROPS 15 ML BOTTLE EACHEYE SCH ×3 (05:02→22:02)
[2019-09-01] MEDS: PROTEIN SUPPLEMENT (PROSTAT) 30 ML LIQUID GT SCH ×3 (05:02→22:02)
[2019-09-01] MEDS: PIPERACILLIN SODIUM/TAZOBACTAM 3.375 G in IV DEXTROSE 5% 50 ML IV SCH (06:01)
[2019-09-01 07:57] VITALS: BP 138/80
[2019-09-01] MEDS: levETIRAcetam 500 MG/5 ML LIQUID UDC GT SCH ×2 (09:13→20:47)
[2019-09-01] MEDS: SODIUM HYPOCHLORITE 0.125% (QUARTER STRENGTH) 473 ML BOTTLE TP SCH (09:14)
[2019-09-01] MEDS: DIGOXIN 125 MCG TABLET GT SCH (09:14)
[2019-09-01] MEDS: NORMAL SALINE NASAL 45 ML BOTTLE NS SCH (09:14)
[2019-09-01] MEDS: POTASSIUM CHLORIDE 40 MEQ/30 ML LIQUID UDC GT SCH (09:14)
[2019-09-01] MEDS: FAMOTIDINE 20 MG TABLET GT SCH ×2 (09:14→20:47)
[2019-09-01] MEDS: NYSTATIN CREAM 30 GM TUBE TP SCH (09:15)
[2019-09-01] MEDS: TRIAMCINOLONE ACET 0.1% CREAM 15 GM TUBE TP SCH (09:15)
[2019-09-01] MEDS: ACETAMINOPHEN 650 MG/20 ML UDC- SA PATIENTS-PAIN ONLY GT PRN (09:16)
[2019-09-01] MEDS: Z GUARD REMEDY PASTE 57 GM TUBE TOP SCH ×2 (09:18→20:48)
[2019-09-01] MEDS: HYDROGEN PEROXIDE 3% 118 ML BOTTLE TP SCH ×2 (10:00→21:15)
[2019-09-01] MEDS: GLUCERNA 1.2 1000ML LIQUID GT PRN (17:35)
--- NOTE | 2019-09-01 20:15 | NUR ---
Patient's daughter and grand daughter called and face timed with patient.
[2019-09-01] MEDS: ASCORBIC ACID 500 MG TABLET PO SCH (20:47)
[2019-09-01] MEDS: ACIDOPHILUS/BULGARICUS CHEW TAB GT SCH (20:47)
[2019-09-01 23:23] VITALS: BP 137/68
[2019-09-02] MEDS: PROTEIN SUPPLEMENT (PROSTAT) 30 ML LIQUID GT SCH ×3 (06:07→21:02)
[2019-09-02] MEDS: POLYVINYL ALCOHOL OPHT DROPS 15 ML BOTTLE EACHEYE SCH ×3 (06:07→21:02)
[2019-09-02] MEDS: ARGININE/GLUTAMINE/CALCIUM BMB 1 EACH POWD.PACK GT SCH ×2 (06:07→17:35)
--- NOTE | 2019-09-02 08:00 | NUR ---
patient in bed , no sob or any respiratory distress noted. Ecchymosis noted on bilateral upper extremities, will continue monitoring.
[2019-09-02 08:08] VITALS: BP 131/55
[2019-09-02] MEDS: levETIRAcetam 500 MG/5 ML LIQUID UDC GT SCH ×2 (08:15→21:01)
[2019-09-02] MEDS: FAMOTIDINE 20 MG TABLET GT SCH ×2 (08:17→21:02)
[2019-09-02] MEDS: NORMAL SALINE NASAL 45 ML BOTTLE NS SCH (08:17)
[2019-09-02] MEDS: DIGOXIN 125 MCG TABLET GT SCH (08:17)
[2019-09-02] MEDS: POTASSIUM CHLORIDE 40 MEQ/30 ML LIQUID UDC GT SCH (08:17)
[2019-09-02] MEDS: Z GUARD REMEDY PASTE 57 GM TUBE TOP SCH ×2 (08:18→21:02)
[2019-09-02] MEDS: ACETAMINOPHEN 650 MG/20 ML UDC- SA PATIENTS-PAIN ONLY GT PRN (08:19)
[2019-09-02] MEDS: HYDROGEN PEROXIDE 3% 118 ML BOTTLE TP SCH ×2 (08:27→22:00)
[2019-09-02] MEDS: SODIUM HYPOCHLORITE 0.125% (QUARTER STRENGTH) 473 ML BOTTLE TP SCH (09:13)
[2019-09-02] MEDS: TRIAMCINOLONE ACET 0.1% CREAM 15 GM TUBE TP SCH (09:13)
[2019-09-02] MEDS: NYSTATIN CREAM 30 GM TUBE TP SCH (09:14)
[2019-09-02 20:42] VITALS: BP 144/72
[2019-09-02] MEDS: ACIDOPHILUS/BULGARICUS CHEW TAB GT SCH (21:01)
[2019-09-02] MEDS: ASCORBIC ACID 500 MG TABLET PO SCH (21:02)
[2019-09-03] MEDS: GLUCERNA 1.2 1000ML LIQUID GT PRN (00:41)
[2019-09-03] MEDS: POLYVINYL ALCOHOL OPHT DROPS 15 ML BOTTLE EACHEYE SCH ×3 (05:16→21:00)
[2019-09-03] MEDS: ARGININE/GLUTAMINE/CALCIUM BMB 1 EACH POWD.PACK GT SCH ×2 (05:16→17:41)
[2019-09-03] MEDS: PROTEIN SUPPLEMENT (PROSTAT) 30 ML LIQUID GT SCH ×3 (05:16→21:00)
[2019-09-03 07:47] VITALS: BP 128/97
[2019-09-03] MEDS: HYDROGEN PEROXIDE 3% 118 ML BOTTLE TP SCH ×2 (08:52→21:00)
[2019-09-03] MEDS: levETIRAcetam 500 MG/5 ML LIQUID UDC GT SCH ×2 (09:15→20:56)
[2019-09-03] MEDS: FAMOTIDINE 20 MG TABLET GT SCH ×2 (09:15→20:57)
[2019-09-03] MEDS: POTASSIUM CHLORIDE 40 MEQ/30 ML LIQUID UDC GT SCH (09:16)
[2019-09-03] MEDS: DIGOXIN 125 MCG TABLET GT SCH (09:16)
[2019-09-03] MEDS: NORMAL SALINE NASAL 45 ML BOTTLE NS SCH (09:17)
[2019-09-03] MEDS: Z GUARD REMEDY PASTE 57 GM TUBE TOP SCH ×2 (09:17→20:58)
[2019-09-03] MEDS: ACETAMINOPHEN 650 MG/20 ML UDC- SA PATIENTS-PAIN ONLY GT PRN (09:25)
[2019-09-03] MEDS: NYSTATIN CREAM 30 GM TUBE TP SCH (09:59)
[2019-09-03] MEDS: TRIAMCINOLONE ACET 0.1% CREAM 15 GM TUBE TP SCH (09:59)
[2019-09-03] MEDS: SODIUM HYPOCHLORITE 0.125% (QUARTER STRENGTH) 473 ML BOTTLE TP SCH (09:59)
[2019-09-03 20:05] VITALS: BP 122/74
--- NOTE | 2019-09-03 20:30 | NUR ---
PT RECEIVED ON CONTINUOUS VENT, TRACH IN PLACED AND SECURED WITH TRACH TIE. BACK UP TRACH AND AMBU BAG AT BEDSIDE. TRACH CARE DONE. SUCTION PRN. VENT CHECKED AND RESET. ALARMS WORKING WELL AND AUDIBLE. NO DISTRESS NOTED AT THIS TIME. WILL CONTINUE TO MONITOR.
[2019-09-03] MEDS: ACIDOPHILUS/BULGARICUS CHEW TAB GT SCH (20:56)
[2019-09-03] MEDS: ASCORBIC ACID 500 MG TABLET PO SCH (20:57)
[2019-09-04] MEDS: GLUCERNA 1.2 1000ML LIQUID GT PRN (02:27)
[2019-09-04] MEDS: POLYVINYL ALCOHOL OPHT DROPS 15 ML BOTTLE EACHEYE SCH ×3 (05:27→21:37)
[2019-09-04] MEDS: PROTEIN SUPPLEMENT (PROSTAT) 30 ML LIQUID GT SCH ×3 (05:27→21:38)
[2019-09-04] MEDS: ARGININE/GLUTAMINE/CALCIUM BMB 1 EACH POWD.PACK GT SCH ×2 (05:27→17:18)
[2019-09-04 08:00] VITALS: BP 130/71
[2019-09-04] MEDS: levETIRAcetam 500 MG/5 ML LIQUID UDC GT SCH ×2 (08:35→20:23)
[2019-09-04] MEDS: DIGOXIN 125 MCG TABLET GT SCH (08:35)
[2019-09-04] MEDS: FAMOTIDINE 20 MG TABLET GT SCH ×2 (08:36→20:23)
[2019-09-04] MEDS: POTASSIUM CHLORIDE 40 MEQ/30 ML LIQUID UDC GT SCH (08:36)
[2019-09-04] MEDS: Z GUARD REMEDY PASTE 57 GM TUBE TOP SCH ×2 (08:36→20:23)
[2019-09-04] MEDS: NORMAL SALINE NASAL 45 ML BOTTLE NS SCH (08:36)
[2019-09-04] MEDS: ACETAMINOPHEN 650 MG/20 ML UDC- SA PATIENTS-PAIN ONLY GT PRN (08:37)
[2019-09-04] MEDS: SODIUM HYPOCHLORITE 0.125% (QUARTER STRENGTH) 473 ML BOTTLE TP SCH (09:08)
[2019-09-04] MEDS: TRIAMCINOLONE ACET 0.1% CREAM 15 GM TUBE TP SCH (09:09)
[2019-09-04] MEDS: NYSTATIN CREAM 30 GM TUBE TP SCH (09:09)
[2019-09-04] MEDS: HYDROGEN PEROXIDE 3% 118 ML BOTTLE TP SCH ×2 (09:18→21:22)
[2019-09-04 20:00] VITALS: BP 120/60
[2019-09-04] MEDS: ACIDOPHILUS/BULGARICUS CHEW TAB GT SCH (20:23)
[2019-09-04] MEDS: ASCORBIC ACID 500 MG TABLET PO SCH (20:23)
[2019-09-05] MEDS: PROTEIN SUPPLEMENT (PROSTAT) 30 ML LIQUID GT SCH ×3 (05:30→21:08)
[2019-09-05] MEDS: ARGININE/GLUTAMINE/CALCIUM BMB 1 EACH POWD.PACK GT SCH ×2 (05:30→17:33)
[2019-09-05] MEDS: POLYVINYL ALCOHOL OPHT DROPS 15 ML BOTTLE EACHEYE SCH ×3 (05:30→21:07)
[2019-09-05] MEDS: HYDROGEN PEROXIDE 3% 118 ML BOTTLE TP SCH ×2 (07:15→21:10)
[2019-09-05 07:42] VITALS: BP 130/62
[2019-09-05] MEDS: levETIRAcetam 500 MG/5 ML LIQUID UDC GT SCH ×2 (08:23→21:07)
[2019-09-05] MEDS: POTASSIUM CHLORIDE 40 MEQ/30 ML LIQUID UDC GT SCH (08:25)
[2019-09-05] MEDS: DIGOXIN 125 MCG TABLET GT SCH (08:25)
[2019-09-05] MEDS: FAMOTIDINE 20 MG TABLET GT SCH ×2 (08:25→21:07)
[2019-09-05] MEDS: NORMAL SALINE NASAL 45 ML BOTTLE NS SCH (08:25)
[2019-09-05] MEDS: SODIUM HYPOCHLORITE 0.125% (QUARTER STRENGTH) 473 ML BOTTLE TP SCH (08:26)
[2019-09-05] MEDS: TRIAMCINOLONE ACET 0.1% CREAM 15 GM TUBE TP SCH (08:26)
[2019-09-05] MEDS: Z GUARD REMEDY PASTE 57 GM TUBE TOP SCH ×2 (08:26→21:07)
[2019-09-05] MEDS: NYSTATIN CREAM 30 GM TUBE TP SCH (08:26)
[2019-09-05 20:00] VITALS: BP 128/73
[2019-09-05] MEDS: ACIDOPHILUS/BULGARICUS CHEW TAB GT SCH (21:07)
[2019-09-05] MEDS: ASCORBIC ACID 500 MG TABLET PO SCH (21:07)
[2019-09-06] MEDS: POLYVINYL ALCOHOL OPHT DROPS 15 ML BOTTLE EACHEYE SCH ×3 (05:18→21:23)
[2019-09-06] MEDS: ARGININE/GLUTAMINE/CALCIUM BMB 1 EACH POWD.PACK GT SCH ×2 (05:18→17:17)
[2019-09-06] MEDS: PROTEIN SUPPLEMENT (PROSTAT) 30 ML LIQUID GT SCH ×3 (05:18→21:23)
[2019-09-06 07:40] VITALS: BP 132/73
--- NOTE | 2019-09-06 07:55 | NUR ---
Seen notes from dr. Huerta and radhao.
[2019-09-06] MEDS: DIGOXIN 125 MCG TABLET GT SCH (08:15)
[2019-09-06] MEDS: Z GUARD REMEDY PASTE 57 GM TUBE TOP SCH ×2 (08:15→21:23)
[2019-09-06] MEDS: SODIUM HYPOCHLORITE 0.125% (QUARTER STRENGTH) 473 ML BOTTLE TP SCH (08:15)
[2019-09-06] MEDS: FAMOTIDINE 20 MG TABLET GT SCH ×2 (08:15→21:23)
[2019-09-06] MEDS: POTASSIUM CHLORIDE 40 MEQ/30 ML LIQUID UDC GT SCH (08:15)
[2019-09-06] MEDS: levETIRAcetam 500 MG/5 ML LIQUID UDC GT SCH ×2 (08:15→21:23)
[2019-09-06] MEDS: NORMAL SALINE NASAL 45 ML BOTTLE NS SCH (08:15)
[2019-09-06] MEDS: HYDROGEN PEROXIDE 3% 118 ML BOTTLE TP SCH ×2 (08:56→21:52)
[2019-09-06 20:00] VITALS: BP 120/75
[2019-09-06] MEDS: ASCORBIC ACID 500 MG TABLET PO SCH (21:23)
[2019-09-06] MEDS: ACIDOPHILUS/BULGARICUS CHEW TAB GT SCH (21:23)
[2019-09-07] MEDS: PROTEIN SUPPLEMENT (PROSTAT) 30 ML LIQUID GT SCH ×3 (05:38→21:02)
[2019-09-07] MEDS: POLYVINYL ALCOHOL OPHT DROPS 15 ML BOTTLE EACHEYE SCH ×3 (05:38→21:02)
[2019-09-07] MEDS: ARGININE/GLUTAMINE/CALCIUM BMB 1 EACH POWD.PACK GT SCH ×2 (05:38→17:30)
[2019-09-07 07:40] VITALS: BP 132/68
[2019-09-07] MEDS: levETIRAcetam 500 MG/5 ML LIQUID UDC GT SCH ×2 (08:14→20:59)
[2019-09-07] MEDS: DIGOXIN 125 MCG TABLET GT SCH (08:15)
[2019-09-07] MEDS: POTASSIUM CHLORIDE 40 MEQ/30 ML LIQUID UDC GT SCH (08:16)
[2019-09-07] MEDS: FAMOTIDINE 20 MG TABLET GT SCH ×2 (08:16→20:59)
[2019-09-07] MEDS: Z GUARD REMEDY PASTE 57 GM TUBE TOP SCH ×2 (08:17→20:59)
[2019-09-07] MEDS: NORMAL SALINE NASAL 45 ML BOTTLE NS SCH (08:17)
[2019-09-07] MEDS: HYDROGEN PEROXIDE 3% 118 ML BOTTLE TP SCH ×2 (09:48→21:40)
--- NOTE | 2019-09-07 10:35 | NUR ---
SEEN BY DR. VALLE AND WITH NNO.
[2019-09-07] MEDS: GLUCERNA 1.2 1000ML LIQUID GT PRN (17:30)
[2019-09-07 20:00] VITALS: BP 136/69
--- NOTE | 2019-09-07 20:25 | NUR ---
PT RECEIVED ON CONTINUOUS VENT, TRACH IN PLACED AND SECURED WITH TRACH TIE. BACK UP TRACH AND AMBU BAG AT BEDSIDE. TRACH CARE DONE. SUCTION PRN. VENT CHECKED, ALARMS WORKING WELL AND AUDIBLE. NO DISTRESS NOTED AT THIS TIME. WILL CONTINUE TO MONITOR.
[2019-09-07] MEDS: ASCORBIC ACID 500 MG TABLET PO SCH (20:59)
[2019-09-07] MEDS: ACIDOPHILUS/BULGARICUS CHEW TAB GT SCH (20:59)
[2019-09-08] MEDS: PROTEIN SUPPLEMENT (PROSTAT) 30 ML LIQUID GT SCH ×3 (05:20→21:37)
[2019-09-08] MEDS: ARGININE/GLUTAMINE/CALCIUM BMB 1 EACH POWD.PACK GT SCH ×2 (05:20→18:39)
[2019-09-08] MEDS: POLYVINYL ALCOHOL OPHT DROPS 15 ML BOTTLE EACHEYE SCH ×3 (05:20→21:37)
[2019-09-08 07:54] VITALS: BP 135/77
[2019-09-08] MEDS: levETIRAcetam 500 MG/5 ML LIQUID UDC GT SCH ×2 (08:29→21:37)
[2019-09-08] MEDS: DIGOXIN 125 MCG TABLET GT SCH (08:30)
[2019-09-08] MEDS: NORMAL SALINE NASAL 45 ML BOTTLE NS SCH (08:30)
[2019-09-08] MEDS: FAMOTIDINE 20 MG TABLET GT SCH ×2 (08:30→21:37)
[2019-09-08] MEDS: Z GUARD REMEDY PASTE 57 GM TUBE TOP SCH ×2 (08:30→21:37)
[2019-09-08] MEDS: POTASSIUM CHLORIDE 40 MEQ/30 ML LIQUID UDC GT SCH (08:30)
[2019-09-08] MEDS: HYDROGEN PEROXIDE 3% 118 ML BOTTLE TP SCH ×2 (08:50→21:28)
[2019-09-08 20:22] VITALS: BP 141/76
[2019-09-08] MEDS: ASCORBIC ACID 500 MG TABLET PO SCH (21:37)
[2019-09-08] MEDS: ACIDOPHILUS/BULGARICUS CHEW TAB GT SCH (21:37)
[2019-09-09] MEDS: ARGININE/GLUTAMINE/CALCIUM BMB 1 EACH POWD.PACK GT SCH ×2 (06:28→17:53)
[2019-09-09] MEDS: POLYVINYL ALCOHOL OPHT DROPS 15 ML BOTTLE EACHEYE SCH ×3 (06:28→21:44)
[2019-09-09] MEDS: PROTEIN SUPPLEMENT (PROSTAT) 30 ML LIQUID GT SCH ×3 (06:28→21:44)
[2019-09-09 07:31] VITALS: BP 124/67
--- NOTE | 2019-09-09 08:55 | NUR ---
DR. ALEJANDRA Mccallum WAS NOTIFIED RE: EDEMA AND MONTHLY WT. GAIN.
--- NOTE | 2019-09-09 09:00 | NUR ---
WAS CALLED AND AWARE OF MONTHLY WT. GAIN FROM 174# TO 181 # AND WITH NEW ORDER CARRIED OUT.
[2019-09-09] MEDS: NORMAL SALINE NASAL 45 ML BOTTLE NS SCH (09:40)
[2019-09-09] MEDS: Z GUARD REMEDY PASTE 57 GM TUBE TOP SCH ×2 (09:40→21:44)
[2019-09-09] MEDS: FAMOTIDINE 20 MG TABLET GT SCH ×2 (09:40→21:44)
[2019-09-09] MEDS: DIGOXIN 125 MCG TABLET GT SCH (09:40)
[2019-09-09] MEDS: levETIRAcetam 500 MG/5 ML LIQUID UDC GT SCH ×2 (09:40→21:44)
[2019-09-09] MEDS: POTASSIUM CHLORIDE 40 MEQ/30 ML LIQUID UDC GT SCH (09:40)
[2019-09-09] MEDS: ACETAMINOPHEN 650 MG/20 ML UDC- SA PATIENTS-PAIN ONLY GT PRN (09:42)
[2019-09-09] MEDS: HYDROGEN PEROXIDE 3% 118 ML BOTTLE TP SCH ×2 (10:00→21:45)
--- NOTE | 2019-09-09 13:10 | NUR ---
SEEN BY ROOPA DixonAND WITH NNO.
--- NOTE | 2019-09-09 18:20 | NUR ---
SEEN BY HAJA SHELDON N.P. AND WITH СВЕТЛАНАO.
[2019-09-09 20:15] VITALS: BP 125/54
[2019-09-09] MEDS: ASCORBIC ACID 500 MG TABLET PO SCH (21:44)
[2019-09-09] MEDS: ACIDOPHILUS/BULGARICUS CHEW TAB GT SCH (21:44)
[2019-09-10] MEDS: GLUCERNA 1.2 1000ML LIQUID GT PRN (03:15)
[2019-09-10] MEDS: ARGININE/GLUTAMINE/CALCIUM BMB 1 EACH POWD.PACK GT SCH ×2 (06:37→18:27)
[2019-09-10] MEDS: PROTEIN SUPPLEMENT (PROSTAT) 30 ML LIQUID GT SCH ×3 (06:37→22:09)
[2019-09-10] MEDS: POLYVINYL ALCOHOL OPHT DROPS 15 ML BOTTLE EACHEYE SCH ×3 (06:37→22:09)
[2019-09-10 07:35] VITALS: BP 141/73
[2019-09-10] MEDS: DIGOXIN 125 MCG TABLET GT SCH (09:00)
[2019-09-10] MEDS: levETIRAcetam 500 MG/5 ML LIQUID UDC GT SCH ×2 (09:00→20:51)
[2019-09-10] MEDS: POTASSIUM CHLORIDE 40 MEQ/30 ML LIQUID UDC GT SCH (09:00)
[2019-09-10] MEDS: FUROSEMIDE 20 MG TABLET GT SCH (09:00)
[2019-09-10] MEDS: Z GUARD REMEDY PASTE 57 GM TUBE TOP SCH ×2 (09:00→20:52)
[2019-09-10] MEDS: HYDROGEN PEROXIDE 3% 118 ML BOTTLE TP SCH ×2 (09:00→21:18)
[2019-09-10] MEDS: NORMAL SALINE NASAL 45 ML BOTTLE NS SCH (09:00)
[2019-09-10] MEDS: FAMOTIDINE 20 MG TABLET GT SCH ×2 (09:00→20:51)
[2019-09-10 20:00] VITALS: BP 123/62
[2019-09-10] MEDS: ACIDOPHILUS/BULGARICUS CHEW TAB GT SCH (20:51)
[2019-09-10] MEDS: ASCORBIC ACID 500 MG TABLET PO SCH (20:52)
[2019-09-11] MEDS: GLUCERNA 1.2 1000ML LIQUID GT PRN (01:23)
[2019-09-11] MEDS: PROTEIN SUPPLEMENT (PROSTAT) 30 ML LIQUID GT SCH ×3 (05:46→21:06)
[2019-09-11] MEDS: ARGININE/GLUTAMINE/CALCIUM BMB 1 EACH POWD.PACK GT SCH ×2 (05:46→17:59)
[2019-09-11] MEDS: POLYVINYL ALCOHOL OPHT DROPS 15 ML BOTTLE EACHEYE SCH ×3 (05:46→21:06)
[2019-09-11 07:41] VITALS: BP 125/69
[2019-09-11] MEDS: levETIRAcetam 500 MG/5 ML LIQUID UDC GT SCH ×2 (08:46→21:04)
[2019-09-11] MEDS: DIGOXIN 125 MCG TABLET GT SCH (08:47)
[2019-09-11] MEDS: FUROSEMIDE 20 MG TABLET GT SCH (08:47)
[2019-09-11] MEDS: NORMAL SALINE NASAL 45 ML BOTTLE NS SCH (08:48)
[2019-09-11] MEDS: FAMOTIDINE 20 MG TABLET GT SCH ×2 (08:48→21:04)
[2019-09-11] MEDS: POTASSIUM CHLORIDE 40 MEQ/30 ML LIQUID UDC GT SCH (08:48)
[2019-09-11] MEDS: TRIAMCINOLONE ACET 0.1% CREAM 15 GM TUBE TP SCH (08:49)
[2019-09-11] MEDS: SODIUM HYPOCHLORITE 0.125% (QUARTER STRENGTH) 473 ML BOTTLE TP SCH (08:49)
[2019-09-11] MEDS: Z GUARD REMEDY PASTE 57 GM TUBE TOP SCH ×2 (08:49→21:06)
[2019-09-11] MEDS: NYSTATIN CREAM 30 GM TUBE TP SCH (08:49)
[2019-09-11] MEDS: HYDROGEN PEROXIDE 3% 118 ML BOTTLE TP SCH ×2 (09:00→21:49)
[2019-09-11 20:00] VITALS: BP 113/53
[2019-09-11] MEDS: ACIDOPHILUS/BULGARICUS CHEW TAB GT SCH (21:04)
[2019-09-11] MEDS: ASCORBIC ACID 500 MG TABLET PO SCH (21:05)
[2019-09-12] MEDS: GLUCERNA 1.2 1000ML LIQUID GT PRN (04:04)
[2019-09-12] MEDS: PROTEIN SUPPLEMENT (PROSTAT) 30 ML LIQUID GT SCH ×3 (06:02→22:08)
[2019-09-12] MEDS: POLYVINYL ALCOHOL OPHT DROPS 15 ML BOTTLE EACHEYE SCH ×3 (06:02→22:08)
[2019-09-12] MEDS: ARGININE/GLUTAMINE/CALCIUM BMB 1 EACH POWD.PACK GT SCH ×2 (06:02→17:02)
[2019-09-12 07:36] VITALS: BP 119/76
[2019-09-12] MEDS: NORMAL SALINE NASAL 45 ML BOTTLE NS SCH (08:13)
[2019-09-12] MEDS: FAMOTIDINE 20 MG TABLET GT SCH ×2 (08:13→20:50)
[2019-09-12] MEDS: Z GUARD REMEDY PASTE 57 GM TUBE TOP SCH ×2 (08:13→20:50)
[2019-09-12] MEDS: POTASSIUM CHLORIDE 40 MEQ/30 ML LIQUID UDC GT SCH (08:13)
[2019-09-12] MEDS: FUROSEMIDE 20 MG TABLET GT SCH (08:13)
[2019-09-12] MEDS: DIGOXIN 125 MCG TABLET GT SCH (08:13)
[2019-09-12] MEDS: levETIRAcetam 500 MG/5 ML LIQUID UDC GT SCH ×2 (08:13→20:49)
[2019-09-12] MEDS: TRIAMCINOLONE ACET 0.1% CREAM 15 GM TUBE TP SCH (08:14)
[2019-09-12] MEDS: SODIUM HYPOCHLORITE 0.125% (QUARTER STRENGTH) 473 ML BOTTLE TP SCH (08:14)
[2019-09-12] MEDS: NYSTATIN CREAM 30 GM TUBE TP SCH (08:14)
[2019-09-12] MEDS: HYDROGEN PEROXIDE 3% 118 ML BOTTLE TP SCH ×2 (09:00→21:19)
[2019-09-12 20:00] VITALS: BP 110/65
--- NOTE | 2019-09-12 20:00 | NUR ---
SEEN BY HAJA EMERY AND WITH NNO.
[2019-09-12] MEDS: ACIDOPHILUS/BULGARICUS CHEW TAB GT SCH (20:49)
[2019-09-12] MEDS: ASCORBIC ACID 500 MG TABLET PO SCH (20:50)
[2019-09-13] MEDS: POLYVINYL ALCOHOL OPHT DROPS 15 ML BOTTLE EACHEYE SCH ×3 (06:16→21:10)
[2019-09-13] MEDS: PROTEIN SUPPLEMENT (PROSTAT) 30 ML LIQUID GT SCH ×3 (06:16→21:10)
[2019-09-13] MEDS: ARGININE/GLUTAMINE/CALCIUM BMB 1 EACH POWD.PACK GT SCH ×2 (06:16→17:24)
[2019-09-13 07:31] VITALS: BP 124/64
[2019-09-13] MEDS: levETIRAcetam 500 MG/5 ML LIQUID UDC GT SCH ×2 (08:24→20:46)
[2019-09-13] MEDS: SODIUM HYPOCHLORITE 0.125% (QUARTER STRENGTH) 473 ML BOTTLE TP SCH (08:25)
[2019-09-13] MEDS: Z GUARD REMEDY PASTE 57 GM TUBE TOP SCH ×2 (08:25→20:46)
[2019-09-13] MEDS: DIGOXIN 125 MCG TABLET GT SCH (08:25)
[2019-09-13] MEDS: POTASSIUM CHLORIDE 40 MEQ/30 ML LIQUID UDC GT SCH (08:25)
[2019-09-13] MEDS: TRIAMCINOLONE ACET 0.1% CREAM 15 GM TUBE TP SCH (08:25)
[2019-09-13] MEDS: NORMAL SALINE NASAL 45 ML BOTTLE NS SCH (08:25)
[2019-09-13] MEDS: NYSTATIN CREAM 30 GM TUBE TP SCH (08:25)
[2019-09-13] MEDS: FUROSEMIDE 20 MG TABLET GT SCH (08:25)
[2019-09-13] MEDS: FAMOTIDINE 20 MG TABLET GT SCH ×2 (08:25→20:46)
[2019-09-13] MEDS: HYDROGEN PEROXIDE 3% 118 ML BOTTLE TP SCH ×2 (09:00→21:32)
[2019-09-13] MEDS: GLUCERNA 1.2 1000ML LIQUID GT PRN (10:58)
[2019-09-13 20:08] VITALS: BP 112/62
[2019-09-13] MEDS: ACIDOPHILUS/BULGARICUS CHEW TAB GT SCH (20:46)
[2019-09-13] MEDS: ASCORBIC ACID 500 MG TABLET PO SCH (20:46)
[2019-09-14] MEDS: POLYVINYL ALCOHOL OPHT DROPS 15 ML BOTTLE EACHEYE SCH ×3 (05:18→21:02)
[2019-09-14] MEDS: ARGININE/GLUTAMINE/CALCIUM BMB 1 EACH POWD.PACK GT SCH ×2 (05:18→17:17)
[2019-09-14] MEDS: PROTEIN SUPPLEMENT (PROSTAT) 30 ML LIQUID GT SCH ×3 (05:18→21:02)
[2019-09-14 07:37] VITALS: BP 131/78
[2019-09-14 08:13] LABS: BASOPHILS % (AUTO) 0.8 % (0.0-2.0); EOSINOPHILS # (AUTO) 0.1 K/uL (0.0-0.7); EOSINOPHILS % (AUTO) 1.9 % (0.0-7.0); HEMATOCRIT 35.4 % (31.2-41.9); HEMOGLOBIN 11.8 g/dL (10.9-14.3); LYMPHOCYTES # (AUTO) 1.2 K/uL (20.0-40.0); LYMPHOCYTES % (AUTO) 26.5 % (20.5-51.5); MEAN CORPUSCULAR HEMOGLOBIN 31.2 uug (24.7-32.8); MEAN CORPUSCULAR HGB CONC 33 g/dL (32.3-35.6); MEAN CORPUSCULAR VOLUME 93.9 fL (75.5-95.3); MONOCYTES # (AUTO) 0.6 K/uL (2.0-10.0); MONOCYTES % (AUTO) 12.4 % (0.0-11.0); NEUTROPHILS # (AUTO) 2.7 K/uL (1.8-8.9); NEUTROPHILS % (AUTO) 58.4 % (38.5-71.5); PLATELET COUNT (AUTO) 107 K/uL (179-408); RED BLOOD CELL COUNT(AUTO) 3.78 MIL/uL (3.63-4.92); WHITE BLOOD COUNT (AUTO) 4.7 K/uL (3.8-11.8)
[2019-09-14] MEDS: levETIRAcetam 500 MG/5 ML LIQUID UDC GT SCH ×2 (08:23→21:02)
[2019-09-14 08:24] LABS: CREATININE 0.6 mg/dL (0.6-1.3); MAGNESIUM 2.2 mg/dL (1.8-2.4); PHOSPHOROUS 3.3 mg/dL (2.5-4.9); POTASSIUM 4.3 mmol/L (3.5-5.1)
[2019-09-14] MEDS: DIGOXIN 125 MCG TABLET GT SCH (08:25)
[2019-09-14] MEDS: FUROSEMIDE 20 MG TABLET GT SCH (08:25)
[2019-09-14] MEDS: FAMOTIDINE 20 MG TABLET GT SCH ×2 (08:25→21:02)
[2019-09-14] MEDS: POTASSIUM CHLORIDE 40 MEQ/30 ML LIQUID UDC GT SCH (08:25)
[2019-09-14] MEDS: TRIAMCINOLONE ACET 0.1% CREAM 15 GM TUBE TP SCH (08:29)
[2019-09-14] MEDS: SODIUM HYPOCHLORITE 0.125% (QUARTER STRENGTH) 473 ML BOTTLE TP SCH (08:29)
[2019-09-14] MEDS: NORMAL SALINE NASAL 45 ML BOTTLE NS SCH (08:29)
[2019-09-14] MEDS: Z GUARD REMEDY PASTE 57 GM TUBE TOP SCH ×2 (08:29→21:02)
[2019-09-14] MEDS: NYSTATIN CREAM 30 GM TUBE TP SCH (08:30)
[2019-09-14] MEDS: HYDROGEN PEROXIDE 3% 118 ML BOTTLE TP SCH ×2 (10:00→21:07)
[2019-09-14] MEDS: GLUCERNA 1.2 1000ML LIQUID GT PRN (14:49)
[2019-09-14 19:46] VITALS: BP 128/65
[2019-09-14] MEDS: ACIDOPHILUS/BULGARICUS CHEW TAB GT SCH (21:02)
[2019-09-14] MEDS: ASCORBIC ACID 500 MG TABLET PO SCH (21:02)
[2019-09-15] MEDS: PROTEIN SUPPLEMENT (PROSTAT) 30 ML LIQUID GT SCH ×3 (05:05→21:09)
[2019-09-15] MEDS: POLYVINYL ALCOHOL OPHT DROPS 15 ML BOTTLE EACHEYE SCH ×3 (05:05→21:09)
[2019-09-15] MEDS: ARGININE/GLUTAMINE/CALCIUM BMB 1 EACH POWD.PACK GT SCH ×2 (05:05→17:45)
[2019-09-15] MEDS: HYDROGEN PEROXIDE 3% 118 ML BOTTLE TP SCH ×2 (07:23→21:18)
[2019-09-15 07:41] VITALS: BP 141/70
[2019-09-15] MEDS: Z GUARD REMEDY PASTE 57 GM TUBE TOP SCH ×2 (09:04→21:08)
[2019-09-15] MEDS: SODIUM HYPOCHLORITE 0.125% (QUARTER STRENGTH) 473 ML BOTTLE TP SCH (09:04)
[2019-09-15] MEDS: levETIRAcetam 500 MG/5 ML LIQUID UDC GT SCH ×2 (09:04→21:08)
[2019-09-15] MEDS: FAMOTIDINE 20 MG TABLET GT SCH ×2 (09:04→21:08)
[2019-09-15] MEDS: FUROSEMIDE 20 MG TABLET GT SCH (09:04)
[2019-09-15] MEDS: DIGOXIN 125 MCG TABLET GT SCH (09:04)
[2019-09-15] MEDS: NORMAL SALINE NASAL 45 ML BOTTLE NS SCH (09:04)
[2019-09-15] MEDS: POTASSIUM CHLORIDE 40 MEQ/30 ML LIQUID UDC GT SCH (09:04)
[2019-09-15] MEDS: NYSTATIN CREAM 30 GM TUBE TP SCH (09:05)
[2019-09-15] MEDS: TRIAMCINOLONE ACET 0.1% CREAM 15 GM TUBE TP SCH (09:05)
[2019-09-15] MEDS: GLUCERNA 1.2 1000ML LIQUID GT PRN (17:46)
[2019-09-15 20:02] VITALS: BP 120/59
[2019-09-15] MEDS: ACIDOPHILUS/BULGARICUS CHEW TAB GT SCH (21:08)
[2019-09-15] MEDS: ASCORBIC ACID 500 MG TABLET PO SCH (21:08)
[2019-09-16] MEDS: POLYVINYL ALCOHOL OPHT DROPS 15 ML BOTTLE EACHEYE SCH ×3 (05:01→21:03)
[2019-09-16] MEDS: PROTEIN SUPPLEMENT (PROSTAT) 30 ML LIQUID GT SCH ×3 (05:01→21:03)
[2019-09-16] MEDS: ARGININE/GLUTAMINE/CALCIUM BMB 1 EACH POWD.PACK GT SCH ×2 (05:01→18:25)
[2019-09-16 07:45] VITALS: BP 131/64
[2019-09-16] MEDS: HYDROGEN PEROXIDE 3% 118 ML BOTTLE TP SCH ×2 (08:35→21:20)
[2019-09-16] MEDS: DIGOXIN 125 MCG TABLET GT SCH (08:45)
[2019-09-16] MEDS: FAMOTIDINE 20 MG TABLET GT SCH ×2 (08:45→21:02)
[2019-09-16] MEDS: FUROSEMIDE 20 MG TABLET GT SCH (08:45)
[2019-09-16] MEDS: POTASSIUM CHLORIDE 40 MEQ/30 ML LIQUID UDC GT SCH (08:45)
[2019-09-16] MEDS: levETIRAcetam 500 MG/5 ML LIQUID UDC GT SCH ×2 (08:45→20:59)
[2019-09-16] MEDS: NORMAL SALINE NASAL 45 ML BOTTLE NS SCH (08:46)
[2019-09-16] MEDS: TRIAMCINOLONE ACET 0.1% CREAM 15 GM TUBE TP SCH (08:46)
[2019-09-16] MEDS: NYSTATIN CREAM 30 GM TUBE TP SCH (08:46)
[2019-09-16] MEDS: SODIUM HYPOCHLORITE 0.125% (QUARTER STRENGTH) 473 ML BOTTLE TP SCH (08:46)
[2019-09-16] MEDS: Z GUARD REMEDY PASTE 57 GM TUBE TOP SCH ×2 (08:46→21:03)
[2019-09-16] MEDS: GLUCERNA 1.2 1000ML LIQUID GT PRN (18:26)
[2019-09-16 19:59] VITALS: BP 137/63
[2019-09-16] MEDS: ACIDOPHILUS/BULGARICUS CHEW TAB GT SCH (20:57)
[2019-09-16] MEDS: ASCORBIC ACID 500 MG TABLET PO SCH (21:02)
[2019-09-17] MEDS: POLYVINYL ALCOHOL OPHT DROPS 15 ML BOTTLE EACHEYE SCH ×3 (06:24→21:13)
[2019-09-17] MEDS: PROTEIN SUPPLEMENT (PROSTAT) 30 ML LIQUID GT SCH ×3 (06:24→21:13)
[2019-09-17] MEDS: ARGININE/GLUTAMINE/CALCIUM BMB 1 EACH POWD.PACK GT SCH ×2 (06:24→17:22)
[2019-09-17 07:27] VITALS: BP 140/68
[2019-09-17] MEDS: levETIRAcetam 500 MG/5 ML LIQUID UDC GT SCH ×2 (08:20→21:12)
[2019-09-17] MEDS: Z GUARD REMEDY PASTE 57 GM TUBE TOP SCH ×2 (08:21→21:13)
[2019-09-17] MEDS: FUROSEMIDE 20 MG TABLET GT SCH (08:21)
[2019-09-17] MEDS: SODIUM HYPOCHLORITE 0.125% (QUARTER STRENGTH) 473 ML BOTTLE TP SCH (08:21)
[2019-09-17] MEDS: DIGOXIN 125 MCG TABLET GT SCH (08:21)
[2019-09-17] MEDS: POTASSIUM CHLORIDE 40 MEQ/30 ML LIQUID UDC GT SCH (08:21)
[2019-09-17] MEDS: TRIAMCINOLONE ACET 0.1% CREAM 15 GM TUBE TP SCH (08:21)
[2019-09-17] MEDS: NORMAL SALINE NASAL 45 ML BOTTLE NS SCH (08:21)
[2019-09-17] MEDS: FAMOTIDINE 20 MG TABLET GT SCH ×2 (08:21→21:12)
[2019-09-17] MEDS: NYSTATIN CREAM 30 GM TUBE TP SCH (08:22)
[2019-09-17] MEDS: HYDROGEN PEROXIDE 3% 118 ML BOTTLE TP SCH ×2 (09:00→21:30)
[2019-09-17 20:00] VITALS: BP 133/59
[2019-09-17] MEDS: ACIDOPHILUS/BULGARICUS CHEW TAB GT SCH (21:12)
[2019-09-17] MEDS: ASCORBIC ACID 500 MG TABLET PO SCH (21:12)
[2019-09-18] MEDS: GLUCERNA 1.2 1000ML LIQUID GT PRN (00:26)
[2019-09-18] MEDS: POLYVINYL ALCOHOL OPHT DROPS 15 ML BOTTLE EACHEYE SCH ×3 (05:46→21:00)
[2019-09-18] MEDS: ARGININE/GLUTAMINE/CALCIUM BMB 1 EACH POWD.PACK GT SCH ×2 (05:46→17:25)
[2019-09-18] MEDS: PROTEIN SUPPLEMENT (PROSTAT) 30 ML LIQUID GT SCH ×3 (05:46→21:01)
[2019-09-18 07:41] VITALS: BP 139/71
[2019-09-18] MEDS: levETIRAcetam 500 MG/5 ML LIQUID UDC GT SCH ×2 (09:52→20:59)
[2019-09-18] MEDS: FAMOTIDINE 20 MG TABLET GT SCH ×2 (09:54→20:59)
[2019-09-18] MEDS: DIGOXIN 125 MCG TABLET GT SCH (09:54)
[2019-09-18] MEDS: FUROSEMIDE 20 MG TABLET GT SCH (09:54)
[2019-09-18] MEDS: POTASSIUM CHLORIDE 40 MEQ/30 ML LIQUID UDC GT SCH (09:55)
[2019-09-18] MEDS: SODIUM HYPOCHLORITE 0.125% (QUARTER STRENGTH) 473 ML BOTTLE TP SCH (09:56)
[2019-09-18] MEDS: NYSTATIN CREAM 30 GM TUBE TP SCH (09:56)
[2019-09-18] MEDS: Z GUARD REMEDY PASTE 57 GM TUBE TOP SCH ×2 (09:56→21:00)
[2019-09-18] MEDS: NORMAL SALINE NASAL 45 ML BOTTLE NS SCH (09:56)
[2019-09-18] MEDS: TRIAMCINOLONE ACET 0.1% CREAM 15 GM TUBE TP SCH (09:56)
[2019-09-18] MEDS: HYDROGEN PEROXIDE 3% 118 ML BOTTLE TP SCH ×2 (10:00→21:22)
[2019-09-18 20:11] VITALS: BP 120/53
[2019-09-18] MEDS: ACIDOPHILUS/BULGARICUS CHEW TAB GT SCH (20:59)
[2019-09-18] MEDS: ASCORBIC ACID 500 MG TABLET PO SCH (21:00)
[2019-09-19] MEDS: GLUCERNA 1.2 1000ML LIQUID GT PRN (04:00)
[2019-09-19] MEDS: POLYVINYL ALCOHOL OPHT DROPS 15 ML BOTTLE EACHEYE SCH ×3 (05:44→21:29)
[2019-09-19] MEDS: ARGININE/GLUTAMINE/CALCIUM BMB 1 EACH POWD.PACK GT SCH ×2 (05:44→18:02)
[2019-09-19] MEDS: PROTEIN SUPPLEMENT (PROSTAT) 30 ML LIQUID GT SCH ×3 (05:44→21:29)
[2019-09-19 07:33] VITALS: BP 107/65
[2019-09-19] MEDS: levETIRAcetam 500 MG/5 ML LIQUID UDC GT SCH ×2 (08:18→21:28)
[2019-09-19] MEDS: FAMOTIDINE 20 MG TABLET GT SCH ×2 (08:19→21:28)
[2019-09-19] MEDS: POTASSIUM CHLORIDE 40 MEQ/30 ML LIQUID UDC GT SCH (08:19)
[2019-09-19] MEDS: FUROSEMIDE 20 MG TABLET GT SCH (08:19)
[2019-09-19] MEDS: DIGOXIN 125 MCG TABLET GT SCH (08:19)
[2019-09-19] MEDS: NORMAL SALINE NASAL 45 ML BOTTLE NS SCH (08:21)
[2019-09-19] MEDS: Z GUARD REMEDY PASTE 57 GM TUBE TOP SCH ×2 (08:21→21:28)
[2019-09-19] MEDS: TRIAMCINOLONE ACET 0.1% CREAM 15 GM TUBE TP SCH (08:21)
[2019-09-19] MEDS: NYSTATIN CREAM 30 GM TUBE TP SCH (08:21)
[2019-09-19] MEDS: SODIUM HYPOCHLORITE 0.125% (QUARTER STRENGTH) 473 ML BOTTLE TP SCH (08:21)
[2019-09-19] MEDS: HYDROGEN PEROXIDE 3% 118 ML BOTTLE TP SCH ×2 (09:49→21:02)
[2019-09-19 20:00] VITALS: BP 121/61
[2019-09-19] MEDS: ASCORBIC ACID 500 MG TABLET PO SCH (21:28)
[2019-09-19] MEDS: ACIDOPHILUS/BULGARICUS CHEW TAB GT SCH (21:28)
[2019-09-20] MEDS: GLUCERNA 1.2 1000ML LIQUID GT PRN (04:00)
[2019-09-20] MEDS: POLYVINYL ALCOHOL OPHT DROPS 15 ML BOTTLE EACHEYE SCH ×3 (05:51→21:20)
[2019-09-20] MEDS: ARGININE/GLUTAMINE/CALCIUM BMB 1 EACH POWD.PACK GT SCH ×2 (05:51→17:37)
[2019-09-20] MEDS: PROTEIN SUPPLEMENT (PROSTAT) 30 ML LIQUID GT SCH ×3 (05:51→21:20)
[2019-09-20 07:47] VITALS: BP 97/61
[2019-09-20] MEDS: FUROSEMIDE 20 MG TABLET GT SCH (08:31)
[2019-09-20] MEDS: NORMAL SALINE NASAL 45 ML BOTTLE NS SCH (08:31)
[2019-09-20] MEDS: DIGOXIN 125 MCG TABLET GT SCH (08:31)
[2019-09-20] MEDS: levETIRAcetam 500 MG/5 ML LIQUID UDC GT SCH ×2 (08:31→21:19)
[2019-09-20] MEDS: POTASSIUM CHLORIDE 40 MEQ/30 ML LIQUID UDC GT SCH (08:31)
[2019-09-20] MEDS: Z GUARD REMEDY PASTE 57 GM TUBE TOP SCH ×2 (08:31→21:19)
[2019-09-20] MEDS: TRIAMCINOLONE ACET 0.1% CREAM 15 GM TUBE TP SCH (08:31)
[2019-09-20] MEDS: FAMOTIDINE 20 MG TABLET GT SCH ×2 (08:31→21:19)
[2019-09-20] MEDS: SODIUM HYPOCHLORITE 0.125% (QUARTER STRENGTH) 473 ML BOTTLE TP SCH (08:31)
[2019-09-20] MEDS: NYSTATIN CREAM 30 GM TUBE TP SCH (08:32)
[2019-09-20] MEDS: HYDROGEN PEROXIDE 3% 118 ML BOTTLE TP SCH ×2 (09:07→21:45)
[2019-09-20] MEDS: ASCORBIC ACID 500 MG TABLET PO SCH (21:19)
[2019-09-20] MEDS: ACIDOPHILUS/BULGARICUS CHEW TAB GT SCH (21:19)
[2019-09-20 23:19] VITALS: BP 125/60
[2019-09-21] MEDS: PROTEIN SUPPLEMENT (PROSTAT) 30 ML LIQUID GT SCH ×3 (06:56→21:17)
[2019-09-21] MEDS: POLYVINYL ALCOHOL OPHT DROPS 15 ML BOTTLE EACHEYE SCH ×3 (06:56→21:17)
[2019-09-21] MEDS: ARGININE/GLUTAMINE/CALCIUM BMB 1 EACH POWD.PACK GT SCH ×2 (06:56→18:01)
[2019-09-21 07:50] VITALS: BP 150/80
[2019-09-21] MEDS: HYDROGEN PEROXIDE 3% 118 ML BOTTLE TP SCH ×2 (08:46→21:52)
[2019-09-21] MEDS: FUROSEMIDE 20 MG TABLET GT SCH (08:59)
[2019-09-21] MEDS: DIGOXIN 125 MCG TABLET GT SCH (08:59)
[2019-09-21] MEDS: levETIRAcetam 500 MG/5 ML LIQUID UDC GT SCH ×2 (08:59→21:13)
[2019-09-21] MEDS: POTASSIUM CHLORIDE 40 MEQ/30 ML LIQUID UDC GT SCH (09:02)
[2019-09-21] MEDS: FAMOTIDINE 20 MG TABLET GT SCH ×2 (09:02→21:14)
[2019-09-21] MEDS: NYSTATIN CREAM 30 GM TUBE TP SCH (09:03)
[2019-09-21] MEDS: SODIUM HYPOCHLORITE 0.125% (QUARTER STRENGTH) 473 ML BOTTLE TP SCH (09:03)
[2019-09-21] MEDS: TRIAMCINOLONE ACET 0.1% CREAM 15 GM TUBE TP SCH (09:03)
[2019-09-21] MEDS: NORMAL SALINE NASAL 45 ML BOTTLE NS SCH (09:03)
[2019-09-21] MEDS: Z GUARD REMEDY PASTE 57 GM TUBE TOP SCH ×2 (09:03→21:14)
[2019-09-21] MEDS: GLUCERNA 1.2 1000ML LIQUID GT PRN (09:10)
--- NOTE | 2019-09-21 20:25 | NUR ---
PT RECEIVED ON CONTINUOUS VENT, TRACH CARE DONE. TRACH IN PLACED AND SECURED WITH TRACH TIE. BACK UP TRACH AND AMBU BAG AT BEDSIDE. SUCTION PRN. VENT CHECKED, ALARMS WORKING WELL AND AUDIBLE. NO DISTRESS NOTED AT THIS TIME. WILL CONTINUE TO MONITOR.
[2019-09-21] MEDS: ACIDOPHILUS/BULGARICUS CHEW TAB GT SCH (21:13)
[2019-09-21] MEDS: ASCORBIC ACID 500 MG TABLET PO SCH (21:14)
[2019-09-21 22:57] VITALS: BP 122/66
[2019-09-22] MEDS: PROTEIN SUPPLEMENT (PROSTAT) 30 ML LIQUID GT SCH ×3 (05:21→21:03)
[2019-09-22] MEDS: ARGININE/GLUTAMINE/CALCIUM BMB 1 EACH POWD.PACK GT SCH ×2 (05:21→17:13)
[2019-09-22] MEDS: POLYVINYL ALCOHOL OPHT DROPS 15 ML BOTTLE EACHEYE SCH ×3 (05:21→21:03)
[2019-09-22 07:45] VITALS: BP 140/69
[2019-09-22] MEDS: HYDROGEN PEROXIDE 3% 118 ML BOTTLE TP SCH ×2 (08:36→21:38)
[2019-09-22] MEDS: DIGOXIN 125 MCG TABLET GT SCH (08:39)
[2019-09-22] MEDS: levETIRAcetam 500 MG/5 ML LIQUID UDC GT SCH ×2 (08:39→21:02)
[2019-09-22] MEDS: SODIUM HYPOCHLORITE 0.125% (QUARTER STRENGTH) 473 ML BOTTLE TP SCH (08:39)
[2019-09-22] MEDS: FUROSEMIDE 20 MG TABLET GT SCH (08:39)
[2019-09-22] MEDS: FAMOTIDINE 20 MG TABLET GT SCH ×2 (08:39→21:02)
[2019-09-22] MEDS: POTASSIUM CHLORIDE 40 MEQ/30 ML LIQUID UDC GT SCH (08:39)
[2019-09-22] MEDS: NORMAL SALINE NASAL 45 ML BOTTLE NS SCH (08:39)
[2019-09-22] MEDS: Z GUARD REMEDY PASTE 57 GM TUBE TOP SCH ×2 (08:39→21:03)
[2019-09-22] MEDS: NYSTATIN CREAM 30 GM TUBE TP SCH (08:40)
[2019-09-22] MEDS: TRIAMCINOLONE ACET 0.1% CREAM 15 GM TUBE TP SCH (08:40)
[2019-09-22] MEDS: ACIDOPHILUS/BULGARICUS CHEW TAB GT SCH (21:02)
[2019-09-22] MEDS: ASCORBIC ACID 500 MG TABLET PO SCH (21:02)
[2019-09-22 23:41] VITALS: BP 118/58
[2019-09-23] MEDS: POLYVINYL ALCOHOL OPHT DROPS 15 ML BOTTLE EACHEYE SCH ×3 (05:10→22:43)
[2019-09-23] MEDS: ARGININE/GLUTAMINE/CALCIUM BMB 1 EACH POWD.PACK GT SCH ×2 (05:10→17:34)
[2019-09-23] MEDS: PROTEIN SUPPLEMENT (PROSTAT) 30 ML LIQUID GT SCH ×3 (05:10→22:43)
[2019-09-23 07:36] VITALS: BP 135/66
[2019-09-23] MEDS: levETIRAcetam 500 MG/5 ML LIQUID UDC GT SCH ×2 (09:22→20:44)
[2019-09-23] MEDS: FUROSEMIDE 20 MG TABLET GT SCH (09:23)
[2019-09-23] MEDS: FAMOTIDINE 20 MG TABLET GT SCH ×2 (09:23→20:45)
[2019-09-23] MEDS: DIGOXIN 125 MCG TABLET GT SCH (09:23)
[2019-09-23] MEDS: NORMAL SALINE NASAL 45 ML BOTTLE NS SCH (09:25)
[2019-09-23] MEDS: Z GUARD REMEDY PASTE 57 GM TUBE TOP SCH ×2 (09:25→20:45)
[2019-09-23] MEDS: POTASSIUM CHLORIDE 40 MEQ/30 ML LIQUID UDC GT SCH (09:25)
[2019-09-23] MEDS: SODIUM HYPOCHLORITE 0.125% (QUARTER STRENGTH) 473 ML BOTTLE TP SCH (09:28)
[2019-09-23] MEDS: TRIAMCINOLONE ACET 0.1% CREAM 15 GM TUBE TP SCH (09:29)
[2019-09-23] MEDS: NYSTATIN CREAM 30 GM TUBE TP SCH (09:29)
[2019-09-23] MEDS: HYDROGEN PEROXIDE 3% 118 ML BOTTLE TP SCH ×2 (09:30→21:49)
[2019-09-23] MEDS: GLUCERNA 1.2 1000ML LIQUID GT PRN (17:55)
--- NOTE | 2019-09-23 18:16 | NUR ---
SEEN BY ROOPA Dixon ,DR. RAMOS AND DR. ALEJANDRA Mccallum AND WITH NNO.
[2019-09-23 20:38] VITALS: BP 127/75
[2019-09-23] MEDS: ACIDOPHILUS/BULGARICUS CHEW TAB GT SCH (20:44)
[2019-09-23] MEDS: ASCORBIC ACID 500 MG TABLET PO SCH (20:45)
[2019-09-24] MEDS: ARGININE/GLUTAMINE/CALCIUM BMB 1 EACH POWD.PACK GT SCH ×2 (05:42→17:51)
[2019-09-24] MEDS: PROTEIN SUPPLEMENT (PROSTAT) 30 ML LIQUID GT SCH ×3 (05:42→21:54)
[2019-09-24] MEDS: POLYVINYL ALCOHOL OPHT DROPS 15 ML BOTTLE EACHEYE SCH ×3 (05:42→21:54)
[2019-09-24 07:54] VITALS: BP 140/73
[2019-09-24] MEDS: levETIRAcetam 500 MG/5 ML LIQUID UDC GT SCH ×2 (08:26→20:42)
[2019-09-24] MEDS: FAMOTIDINE 20 MG TABLET GT SCH ×2 (08:31→20:42)
[2019-09-24] MEDS: POTASSIUM CHLORIDE 40 MEQ/30 ML LIQUID UDC GT SCH (08:31)
[2019-09-24] MEDS: FUROSEMIDE 20 MG TABLET GT SCH (08:31)
[2019-09-24] MEDS: DIGOXIN 125 MCG TABLET GT SCH (08:31)
[2019-09-24] MEDS: NORMAL SALINE NASAL 45 ML BOTTLE NS SCH (08:32)
[2019-09-24] MEDS: Z GUARD REMEDY PASTE 57 GM TUBE TOP SCH ×2 (08:33→20:42)
[2019-09-24] MEDS: NYSTATIN CREAM 30 GM TUBE TP SCH (09:00)
[2019-09-24] MEDS: TRIAMCINOLONE ACET 0.1% CREAM 15 GM TUBE TP SCH (09:30)
[2019-09-24] MEDS: SODIUM HYPOCHLORITE 0.125% (QUARTER STRENGTH) 473 ML BOTTLE TP SCH (09:30)
[2019-09-24] MEDS: HYDROGEN PEROXIDE 3% 118 ML BOTTLE TP SCH ×2 (09:53→21:05)
[2019-09-24 20:04] VITALS: BP 104/68
[2019-09-24] MEDS: ACIDOPHILUS/BULGARICUS CHEW TAB GT SCH (20:41)
[2019-09-24] MEDS: ASCORBIC ACID 500 MG TABLET PO SCH (20:42)
[2019-09-25] MEDS: GLUCERNA 1.2 1000ML LIQUID GT PRN (02:29)
[2019-09-25] MEDS: POLYVINYL ALCOHOL OPHT DROPS 15 ML BOTTLE EACHEYE SCH ×3 (05:16→22:46)
[2019-09-25] MEDS: PROTEIN SUPPLEMENT (PROSTAT) 30 ML LIQUID GT SCH ×3 (05:17→22:46)
[2019-09-25] MEDS: ARGININE/GLUTAMINE/CALCIUM BMB 1 EACH POWD.PACK GT SCH ×2 (05:17→17:12)
[2019-09-25 07:42] VITALS: BP 142/75
[2019-09-25] MEDS: levETIRAcetam 500 MG/5 ML LIQUID UDC GT SCH ×2 (08:09→20:09)
[2019-09-25] MEDS: DIGOXIN 125 MCG TABLET GT SCH (08:10)
[2019-09-25] MEDS: FUROSEMIDE 20 MG TABLET GT SCH (08:11)
[2019-09-25] MEDS: POTASSIUM CHLORIDE 40 MEQ/30 ML LIQUID UDC GT SCH (08:11)
[2019-09-25] MEDS: FAMOTIDINE 20 MG TABLET GT SCH ×2 (08:11→20:09)
[2019-09-25] MEDS: Z GUARD REMEDY PASTE 57 GM TUBE TOP SCH ×2 (08:12→20:09)
[2019-09-25] MEDS: NORMAL SALINE NASAL 45 ML BOTTLE NS SCH (08:12)
[2019-09-25] MEDS: ACETAMINOPHEN 650 MG/20 ML UDC- SA PATIENTS-PAIN ONLY GT PRN (08:12)
[2019-09-25] MEDS: HYDROGEN PEROXIDE 3% 118 ML BOTTLE TP SCH ×2 (09:08→21:03)
[2019-09-25] MEDS: NYSTATIN CREAM 30 GM TUBE TP SCH (09:12)
[2019-09-25] MEDS: SODIUM HYPOCHLORITE 0.125% (QUARTER STRENGTH) 473 ML BOTTLE TP SCH (09:12)
[2019-09-25] MEDS: TRIAMCINOLONE ACET 0.1% CREAM 15 GM TUBE TP SCH (09:12)
[2019-09-25 19:58] VITALS: BP 123/67
[2019-09-25] MEDS: ACIDOPHILUS/BULGARICUS CHEW TAB GT SCH (20:09)
[2019-09-25] MEDS: ASCORBIC ACID 500 MG TABLET PO SCH (20:09)
[2019-09-26] MEDS: POLYVINYL ALCOHOL OPHT DROPS 15 ML BOTTLE EACHEYE SCH ×3 (06:40→21:00)
[2019-09-26] MEDS: PROTEIN SUPPLEMENT (PROSTAT) 30 ML LIQUID GT SCH ×3 (06:40→21:00)
[2019-09-26] MEDS: ARGININE/GLUTAMINE/CALCIUM BMB 1 EACH POWD.PACK GT SCH ×2 (06:40→17:10)
[2019-09-26 07:36] VITALS: BP 114/66
[2019-09-26] MEDS: FAMOTIDINE 20 MG TABLET GT SCH ×2 (08:20→20:57)
[2019-09-26] MEDS: DIGOXIN 125 MCG TABLET GT SCH (08:20)
[2019-09-26] MEDS: levETIRAcetam 500 MG/5 ML LIQUID UDC GT SCH ×2 (08:20→20:57)
[2019-09-26] MEDS: FUROSEMIDE 20 MG TABLET GT SCH (08:20)
[2019-09-26] MEDS: Z GUARD REMEDY PASTE 57 GM TUBE TOP SCH ×2 (08:21→20:57)
[2019-09-26] MEDS: NORMAL SALINE NASAL 45 ML BOTTLE NS SCH (08:21)
[2019-09-26] MEDS: POTASSIUM CHLORIDE 40 MEQ/30 ML LIQUID UDC GT SCH (08:21)
[2019-09-26] MEDS: HYDROGEN PEROXIDE 3% 118 ML BOTTLE TP SCH ×2 (08:48→21:11)
[2019-09-26] MEDS: TRIAMCINOLONE ACET 0.1% CREAM 15 GM TUBE TP SCH (09:17)
[2019-09-26] MEDS: SODIUM HYPOCHLORITE 0.125% (QUARTER STRENGTH) 473 ML BOTTLE TP SCH (09:17)
[2019-09-26] MEDS: NYSTATIN CREAM 30 GM TUBE TP SCH (09:17)
[2019-09-26 20:04] VITALS: BP 107/62
[2019-09-26] MEDS: ACIDOPHILUS/BULGARICUS CHEW TAB GT SCH (20:57)
[2019-09-26] MEDS: ASCORBIC ACID 500 MG TABLET PO SCH (20:57)
[2019-09-27] MEDS: ARGININE/GLUTAMINE/CALCIUM BMB 1 EACH POWD.PACK GT SCH ×2 (06:01→17:06)
[2019-09-27] MEDS: PROTEIN SUPPLEMENT (PROSTAT) 30 ML LIQUID GT SCH ×3 (06:01→21:13)
[2019-09-27] MEDS: POLYVINYL ALCOHOL OPHT DROPS 15 ML BOTTLE EACHEYE SCH ×3 (06:01→21:10)
[2019-09-27 07:54] VITALS: BP 120/51
[2019-09-27] MEDS: DIGOXIN 125 MCG TABLET GT SCH (08:23)
[2019-09-27] MEDS: levETIRAcetam 500 MG/5 ML LIQUID UDC GT SCH ×2 (08:23→21:09)
[2019-09-27] MEDS: FAMOTIDINE 20 MG TABLET GT SCH ×2 (08:24→21:09)
[2019-09-27] MEDS: SODIUM HYPOCHLORITE 0.125% (QUARTER STRENGTH) 473 ML BOTTLE TP SCH ×2 (08:24→21:09)
[2019-09-27] MEDS: Z GUARD REMEDY PASTE 57 GM TUBE TOP SCH ×2 (08:24→21:09)
[2019-09-27] MEDS: NORMAL SALINE NASAL 45 ML BOTTLE NS SCH (08:24)
[2019-09-27] MEDS: FUROSEMIDE 20 MG TABLET GT SCH (08:24)
[2019-09-27] MEDS: POTASSIUM CHLORIDE 40 MEQ/30 ML LIQUID UDC GT SCH (08:24)
[2019-09-27] MEDS: NYSTATIN CREAM 30 GM TUBE TP SCH ×2 (08:25→21:09)
[2019-09-27] MEDS: TRIAMCINOLONE ACET 0.1% CREAM 15 GM TUBE TP SCH ×2 (08:25→21:09)
[2019-09-27] MEDS: HYDROGEN PEROXIDE 3% 118 ML BOTTLE TP SCH ×2 (09:00→21:47)
[2019-09-27] MEDS: GLUCERNA 1.2 1000ML LIQUID GT PRN (11:48)
[2019-09-27 19:58] VITALS: BP 132/72
[2019-09-27] MEDS: ACIDOPHILUS/BULGARICUS CHEW TAB GT SCH (21:08)
[2019-09-27] MEDS: ASCORBIC ACID 500 MG TABLET PO SCH (21:09)
[2019-09-27] MEDS: THERAHONEY GEL 1.5 OZ TUBE TOP SCH (21:09)
[2019-09-28] MEDS: ARGININE/GLUTAMINE/CALCIUM BMB 1 EACH POWD.PACK GT SCH ×2 (05:58→17:20)
[2019-09-28] MEDS: POLYVINYL ALCOHOL OPHT DROPS 15 ML BOTTLE EACHEYE SCH ×3 (05:58→21:52)
[2019-09-28] MEDS: PROTEIN SUPPLEMENT (PROSTAT) 30 ML LIQUID GT SCH ×3 (05:58→21:53)
[2019-09-28 08:08] VITALS: BP 109/61
[2019-09-28] MEDS: levETIRAcetam 500 MG/5 ML LIQUID UDC GT SCH ×2 (08:30→21:51)
[2019-09-28] MEDS: DIGOXIN 125 MCG TABLET GT SCH (08:33)
[2019-09-28] MEDS: FAMOTIDINE 20 MG TABLET GT SCH ×2 (08:34→21:51)
[2019-09-28] MEDS: POTASSIUM CHLORIDE 40 MEQ/30 ML LIQUID UDC GT SCH (08:34)
[2019-09-28] MEDS: FUROSEMIDE 20 MG TABLET GT SCH (08:34)
[2019-09-28] MEDS: Z GUARD REMEDY PASTE 57 GM TUBE TOP SCH ×2 (08:35→21:52)
[2019-09-28] MEDS: NORMAL SALINE NASAL 45 ML BOTTLE NS SCH (08:35)
[2019-09-28] MEDS: ACETAMINOPHEN 650 MG/20 ML UDC- SA PATIENTS-PAIN ONLY GT PRN (08:36)
[2019-09-28] MEDS: NYSTATIN CREAM 30 GM TUBE TP SCH ×2 (09:00→21:52)
[2019-09-28] MEDS: THERAHONEY GEL 1.5 OZ TUBE TOP SCH ×2 (09:00→21:52)
[2019-09-28] MEDS: SODIUM HYPOCHLORITE 0.125% (QUARTER STRENGTH) 473 ML BOTTLE TP SCH ×2 (09:00→21:52)
[2019-09-28] MEDS: TRIAMCINOLONE ACET 0.1% CREAM 15 GM TUBE TP SCH ×2 (09:00→21:52)
[2019-09-28] MEDS: HYDROGEN PEROXIDE 3% 118 ML BOTTLE TP SCH ×2 (10:10→21:35)
[2019-09-28] MEDS: GLUCERNA 1.2 1000ML LIQUID GT PRN (14:16)
[2019-09-28 20:17] VITALS: BP 126/58
[2019-09-28] MEDS: ACIDOPHILUS/BULGARICUS CHEW TAB GT SCH (21:51)
[2019-09-28] MEDS: ASCORBIC ACID 500 MG TABLET PO SCH (21:51)
[2019-09-29] MEDS: ARGININE/GLUTAMINE/CALCIUM BMB 1 EACH POWD.PACK GT SCH ×2 (05:33→17:01)
[2019-09-29] MEDS: POLYVINYL ALCOHOL OPHT DROPS 15 ML BOTTLE EACHEYE SCH ×3 (05:33→22:01)
[2019-09-29] MEDS: PROTEIN SUPPLEMENT (PROSTAT) 30 ML LIQUID GT SCH ×3 (05:33→22:01)
[2019-09-29 07:40] VITALS: BP 105/53
[2019-09-29] MEDS: levETIRAcetam 500 MG/5 ML LIQUID UDC GT SCH ×2 (09:04→21:57)
[2019-09-29] MEDS: FUROSEMIDE 20 MG TABLET GT SCH (09:05)
[2019-09-29] MEDS: FAMOTIDINE 20 MG TABLET GT SCH ×2 (09:05→21:57)
[2019-09-29] MEDS: DIGOXIN 125 MCG TABLET GT SCH (09:05)
[2019-09-29] MEDS: POTASSIUM CHLORIDE 40 MEQ/30 ML LIQUID UDC GT SCH (09:06)
[2019-09-29] MEDS: THERAHONEY GEL 1.5 OZ TUBE TOP SCH ×2 (09:06→21:59)
[2019-09-29] MEDS: NORMAL SALINE NASAL 45 ML BOTTLE NS SCH (09:06)
[2019-09-29] MEDS: SODIUM HYPOCHLORITE 0.125% (QUARTER STRENGTH) 473 ML BOTTLE TP SCH ×2 (09:06→21:59)
[2019-09-29] MEDS: Z GUARD REMEDY PASTE 57 GM TUBE TOP SCH ×2 (09:06→21:58)
[2019-09-29] MEDS: TRIAMCINOLONE ACET 0.1% CREAM 15 GM TUBE TP SCH ×2 (09:07→21:00)
[2019-09-29] MEDS: NYSTATIN CREAM 30 GM TUBE TP SCH ×2 (09:07→21:00)
[2019-09-29] MEDS: HYDROGEN PEROXIDE 3% 118 ML BOTTLE TP SCH ×2 (09:30→21:20)
[2019-09-29] MEDS: GLUCERNA 1.2 1000ML LIQUID GT PRN (17:01)
[2019-09-29] MEDS: ACIDOPHILUS/BULGARICUS CHEW TAB GT SCH (21:57)
[2019-09-29] MEDS: ASCORBIC ACID 500 MG TABLET PO SCH (21:57)
[2019-09-29 23:19] VITALS: BP 118/66
[2019-09-30] MEDS: PROTEIN SUPPLEMENT (PROSTAT) 30 ML LIQUID GT SCH ×3 (06:17→21:53)
[2019-09-30] MEDS: ARGININE/GLUTAMINE/CALCIUM BMB 1 EACH POWD.PACK GT SCH ×2 (06:17→17:31)
[2019-09-30] MEDS: POLYVINYL ALCOHOL OPHT DROPS 15 ML BOTTLE EACHEYE SCH ×3 (06:17→21:53)
[2019-09-30 07:35] VITALS: BP 112/63
[2019-09-30] MEDS: SODIUM HYPOCHLORITE 0.125% (QUARTER STRENGTH) 473 ML BOTTLE TP SCH ×2 (08:47→21:52)
[2019-09-30] MEDS: FUROSEMIDE 20 MG TABLET GT SCH (08:47)
[2019-09-30] MEDS: POTASSIUM CHLORIDE 40 MEQ/30 ML LIQUID UDC GT SCH (08:47)
[2019-09-30] MEDS: THERAHONEY GEL 1.5 OZ TUBE TOP SCH ×2 (08:47→21:52)
[2019-09-30] MEDS: NORMAL SALINE NASAL 45 ML BOTTLE NS SCH (08:47)
[2019-09-30] MEDS: levETIRAcetam 500 MG/5 ML LIQUID UDC GT SCH ×2 (08:47→21:52)
[2019-09-30] MEDS: FAMOTIDINE 20 MG TABLET GT SCH ×2 (08:47→21:52)
[2019-09-30] MEDS: TRIAMCINOLONE ACET 0.1% CREAM 15 GM TUBE TP SCH ×2 (08:47→21:53)
[2019-09-30] MEDS: Z GUARD REMEDY PASTE 57 GM TUBE TOP SCH ×2 (08:47→21:52)
[2019-09-30] MEDS: DIGOXIN 125 MCG TABLET GT SCH (08:47)
[2019-09-30] MEDS: NYSTATIN CREAM 30 GM TUBE TP SCH ×2 (08:48→21:53)
[2019-09-30] MEDS: HYDROGEN PEROXIDE 3% 118 ML BOTTLE TP SCH ×2 (09:31→21:01)
[2019-09-30 20:41] VITALS: BP 125/66
[2019-09-30] MEDS: ACIDOPHILUS/BULGARICUS CHEW TAB GT SCH (21:52)
[2019-09-30] MEDS: ASCORBIC ACID 500 MG TABLET PO SCH (21:52)
[2019-10-01] MEDS: PROTEIN SUPPLEMENT (PROSTAT) 30 ML LIQUID GT SCH ×3 (06:40→22:16)
[2019-10-01] MEDS: ARGININE/GLUTAMINE/CALCIUM BMB 1 EACH POWD.PACK GT SCH ×2 (06:40→17:30)
[2019-10-01] MEDS: POLYVINYL ALCOHOL OPHT DROPS 15 ML BOTTLE EACHEYE SCH ×3 (06:40→22:16)
[2019-10-01 06:55] LABS: BASOPHILS % (AUTO) 0.6 % (0.0-2.0); EOSINOPHILS # (AUTO) 0.1 K/uL (0.0-0.7); EOSINOPHILS % (AUTO) 3.4 % (0.0-7.0); HEMATOCRIT 36.8 % (31.2-41.9); LYMPHOCYTES # (AUTO) 1.4 K/uL (20.0-40.0); MEAN CORPUSCULAR HEMOGLOBIN 30.9 uug (24.7-32.8); MEAN CORPUSCULAR HGB CONC 33 g/dL (32.3-35.6); MEAN CORPUSCULAR VOLUME 94.4 fL (75.5-95.3); MONOCYTES # (AUTO) 0.4 K/uL (2.0-10.0); MONOCYTES % (AUTO) 10.1 % (0.0-11.0); NEUTROPHILS # (AUTO) 2.2 K/uL (1.8-8.9); NEUTROPHILS % (AUTO) 51.9 % (38.5-71.5); PLATELET COUNT (AUTO) 109 K/uL (179-408); WHITE BLOOD COUNT (AUTO) 4.2 K/uL (3.8-11.8)
[2019-10-01 07:07] LABS: CARBON DIOXIDE 37 mmol/L (21-32); CHLORIDE 106 mmol/L (98-107); CREATININE 0.7 mg/dL (0.6-1.3); GLUCOSE 117 mg/dL (74-106); MAGNESIUM 2.4 mg/dL (1.8-2.4); UREA NITROGEN, BLOOD 30 mg/dL (7-18)
[2019-10-01 07:39] VITALS: BP 115/66
[2019-10-01] MEDS: TRIAMCINOLONE ACET 0.1% CREAM 15 GM TUBE TP SCH ×2 (09:08→20:44)
[2019-10-01] MEDS: DIGOXIN 125 MCG TABLET GT SCH (09:08)
[2019-10-01] MEDS: THERAHONEY GEL 1.5 OZ TUBE TOP SCH ×2 (09:08→20:43)
[2019-10-01] MEDS: NORMAL SALINE NASAL 45 ML BOTTLE NS SCH (09:08)
[2019-10-01] MEDS: POTASSIUM CHLORIDE 40 MEQ/30 ML LIQUID UDC GT SCH (09:08)
[2019-10-01] MEDS: Z GUARD REMEDY PASTE 57 GM TUBE TOP SCH ×2 (09:08→20:43)
[2019-10-01] MEDS: FAMOTIDINE 20 MG TABLET GT SCH ×2 (09:08→20:42)
[2019-10-01] MEDS: SODIUM HYPOCHLORITE 0.125% (QUARTER STRENGTH) 473 ML BOTTLE TP SCH ×2 (09:08→20:44)
[2019-10-01] MEDS: levETIRAcetam 500 MG/5 ML LIQUID UDC GT SCH ×2 (09:08→20:42)
[2019-10-01] MEDS: FUROSEMIDE 20 MG TABLET GT SCH (09:08)
[2019-10-01] MEDS: NYSTATIN CREAM 30 GM TUBE TP SCH ×2 (09:08→20:44)
[2019-10-01] MEDS: HYDROGEN PEROXIDE 3% 118 ML BOTTLE TP SCH ×2 (09:51→21:00)
--- NOTE | 2019-10-01 14:13 | NUR ---
Pharmacy Update from Today's 10/01/19 IDT Meeting VS: Temp 97.6 BP 112/63 HR 68 LABS: (from 10/01/19) Wbc 4.2 H/H 12/36.8 Plt 109 Na 146 K 4.0 Cl 106 CO2 37 BUN/Scr 30/0.7 BS 117 Ca 9.2 Phos 4.0 Mg 2.4 MEDICATION USE REVIEWED: > Pt not on any anti-psych medications > Pt now on Keppra 750mg q12hr since 04/29/19 per neuro; Obese CrCl estimation 84.5 ml/min, renal function ok for current dose. No seizures noted > Pt on famotidine 20mg q12hr, renal fxn ok for dose > Pt on digoxin 125mcg daily since 04/27/18. Last level at steady state 02/04/19 was 0.6 (0.5-2). Within therapeutic range, no change in condition or dose since then. > Pt on KCl 10meq daily, last K 4.0 PRN MED USAGE: (August) Tylenol for pain/temp used x9 for pain, x1 temp NEW ORDERS NOTED: > Covid test 08/24 negative > Furosemide 20mg GT daily 09/09 Patient was reviewed and discussed in depth with no medication issues noted at this time. No further recommendations at this time, remains stable on current regimen. Will continue to follow
--- NOTE | 2019-10-01 15:11 | NUR ---
INTERDISCIPLINARY PLAN OF CARE CONFERENCE was held today. Patient's daughter was not available to participate in the meeting. Dr. Murguia and the Interdisciplinary Team reviewed the current plan of care in detail. RN reported on patient's medical condition, recent lab findings, and ongoing skin treatment. No major changes in condition were reported. See RN IDT conference notes. See also all other disciplines IDT notes and physician's progress notes for additional details.
[2019-10-01 20:12] VITALS: BP 115/52
[2019-10-01] MEDS: ASCORBIC ACID 500 MG TABLET PO SCH (20:42)
[2019-10-01] MEDS: ACIDOPHILUS/BULGARICUS CHEW TAB GT SCH (20:42)
[2019-10-02] MEDS: PROTEIN SUPPLEMENT (PROSTAT) 30 ML LIQUID GT SCH ×3 (05:59→22:02)
[2019-10-02] MEDS: POLYVINYL ALCOHOL OPHT DROPS 15 ML BOTTLE EACHEYE SCH ×3 (05:59→22:02)
[2019-10-02] MEDS: ARGININE/GLUTAMINE/CALCIUM BMB 1 EACH POWD.PACK GT SCH ×2 (05:59→18:05)
[2019-10-02 07:50] VITALS: BP 112/58
[2019-10-02] MEDS: levETIRAcetam 500 MG/5 ML LIQUID UDC GT SCH ×2 (09:45→20:30)
[2019-10-02] MEDS: POTASSIUM CHLORIDE 40 MEQ/30 ML LIQUID UDC GT SCH (09:46)
[2019-10-02] MEDS: FAMOTIDINE 20 MG TABLET GT SCH ×2 (09:46→20:30)
[2019-10-02] MEDS: DIGOXIN 125 MCG TABLET GT SCH (09:46)
[2019-10-02] MEDS: FUROSEMIDE 20 MG TABLET GT SCH (09:46)
[2019-10-02] MEDS: Z GUARD REMEDY PASTE 57 GM TUBE TOP SCH ×2 (09:47→20:32)
[2019-10-02] MEDS: THERAHONEY GEL 1.5 OZ TUBE TOP SCH ×2 (09:47→20:32)
[2019-10-02] MEDS: NORMAL SALINE NASAL 45 ML BOTTLE NS SCH (09:47)
[2019-10-02] MEDS: SODIUM HYPOCHLORITE 0.125% (QUARTER STRENGTH) 473 ML BOTTLE TP SCH ×2 (09:47→20:32)
[2019-10-02] MEDS: TRIAMCINOLONE ACET 0.1% CREAM 15 GM TUBE TP SCH ×2 (09:48→20:32)
[2019-10-02] MEDS: NYSTATIN CREAM 30 GM TUBE TP SCH ×2 (09:48→20:32)
[2019-10-02] MEDS: HYDROGEN PEROXIDE 3% 118 ML BOTTLE TP SCH ×2 (09:50→21:06)
--- NOTE | 2019-10-02 19:00 | NUR ---
Seen and examined by Dr Murguia with new orders noted.
[2019-10-02 20:11] VITALS: BP 124/53
[2019-10-02] MEDS: ACIDOPHILUS/BULGARICUS CHEW TAB GT SCH (20:30)
[2019-10-02] MEDS: ASCORBIC ACID 500 MG TABLET PO SCH (20:32)
[2019-10-03] MEDS: GLUCERNA 1.2 1000ML LIQUID GT PRN (01:09)
[2019-10-03] MEDS: POLYVINYL ALCOHOL OPHT DROPS 15 ML BOTTLE EACHEYE SCH ×3 (06:00→21:07)
[2019-10-03] MEDS: ARGININE/GLUTAMINE/CALCIUM BMB 1 EACH POWD.PACK GT SCH ×2 (06:00→17:51)
[2019-10-03] MEDS: PROTEIN SUPPLEMENT (PROSTAT) 30 ML LIQUID GT SCH ×3 (06:00→21:07)
[2019-10-03 07:36] VITALS: BP 125/67
[2019-10-03] MEDS: levETIRAcetam 500 MG/5 ML LIQUID UDC GT SCH ×2 (08:48→21:03)
[2019-10-03] MEDS: DIGOXIN 125 MCG TABLET GT SCH (08:49)
[2019-10-03] MEDS: FUROSEMIDE 20 MG TABLET GT SCH (08:49)
[2019-10-03] MEDS: POTASSIUM CHLORIDE 40 MEQ/30 ML LIQUID UDC GT SCH (08:49)
[2019-10-03] MEDS: FAMOTIDINE 20 MG TABLET GT SCH ×2 (08:49→21:03)
[2019-10-03] MEDS: SODIUM HYPOCHLORITE 0.125% (QUARTER STRENGTH) 473 ML BOTTLE TP SCH ×2 (08:50→21:04)
[2019-10-03] MEDS: THERAHONEY GEL 1.5 OZ TUBE TOP SCH ×2 (08:50→21:04)
[2019-10-03] MEDS: TRIAMCINOLONE ACET 0.1% CREAM 15 GM TUBE TP SCH ×2 (08:50→21:04)
[2019-10-03] MEDS: NORMAL SALINE NASAL 45 ML BOTTLE NS SCH (08:50)
[2019-10-03] MEDS: Z GUARD REMEDY PASTE 57 GM TUBE TOP SCH ×2 (08:50→21:04)
[2019-10-03] MEDS: NYSTATIN CREAM 30 GM TUBE TP SCH ×2 (08:51→21:04)
[2019-10-03] MEDS: HYDROGEN PEROXIDE 3% 118 ML BOTTLE TP SCH ×2 (09:00→21:34)
[2019-10-03 20:06] VITALS: BP_SYST 116; BP_SYST 135; BP_DIAS 72; BP_DIAS 80
[2019-10-03] MEDS: ASCORBIC ACID 500 MG TABLET PO SCH (21:03)
[2019-10-03] MEDS: ACIDOPHILUS/BULGARICUS CHEW TAB GT SCH (21:03)
[2019-10-04] MEDS: POLYVINYL ALCOHOL OPHT DROPS 15 ML BOTTLE EACHEYE SCH ×3 (05:59→21:05)
[2019-10-04] MEDS: ARGININE/GLUTAMINE/CALCIUM BMB 1 EACH POWD.PACK GT SCH ×2 (05:59→17:15)
[2019-10-04] MEDS: PROTEIN SUPPLEMENT (PROSTAT) 30 ML LIQUID GT SCH ×3 (05:59→21:05)
[2019-10-04 07:36] VITALS: BP 125/89
[2019-10-04] MEDS: HYDROGEN PEROXIDE 3% 118 ML BOTTLE TP SCH ×2 (08:14→21:16)
[2019-10-04] MEDS: levETIRAcetam 500 MG/5 ML LIQUID UDC GT SCH ×2 (08:37→20:51)
[2019-10-04] MEDS: DIGOXIN 125 MCG TABLET GT SCH (08:37)
[2019-10-04] MEDS: POTASSIUM CHLORIDE 40 MEQ/30 ML LIQUID UDC GT SCH (08:38)
[2019-10-04] MEDS: FUROSEMIDE 20 MG TABLET GT SCH (08:38)
[2019-10-04] MEDS: Z GUARD REMEDY PASTE 57 GM TUBE TOP SCH ×2 (08:38→20:51)
[2019-10-04] MEDS: FAMOTIDINE 20 MG TABLET GT SCH ×2 (08:38→20:51)
[2019-10-04] MEDS: NORMAL SALINE NASAL 45 ML BOTTLE NS SCH (08:38)
[2019-10-04] MEDS: THERAHONEY GEL 1.5 OZ TUBE TOP SCH ×2 (08:39→20:51)
[2019-10-04] MEDS: SODIUM HYPOCHLORITE 0.125% (QUARTER STRENGTH) 473 ML BOTTLE TP SCH ×2 (08:39→20:51)
[2019-10-04] MEDS: NYSTATIN CREAM 30 GM TUBE TP SCH ×2 (08:39→20:51)
[2019-10-04] MEDS: TRIAMCINOLONE ACET 0.1% CREAM 15 GM TUBE TP SCH ×2 (08:39→20:51)
[2019-10-04] MEDS: GLUCERNA 1.2 1000ML LIQUID GT PRN (17:15)
[2019-10-04] MEDS: ASCORBIC ACID 500 MG TABLET PO SCH (20:51)
[2019-10-04] MEDS: ACIDOPHILUS/BULGARICUS CHEW TAB GT SCH (20:51)
[2019-10-04 22:42] VITALS: BP 118/55
[2019-10-05] MEDS: POLYVINYL ALCOHOL OPHT DROPS 15 ML BOTTLE EACHEYE SCH ×3 (05:18→21:18)
[2019-10-05] MEDS: ARGININE/GLUTAMINE/CALCIUM BMB 1 EACH POWD.PACK GT SCH ×2 (05:18→17:13)
[2019-10-05] MEDS: PROTEIN SUPPLEMENT (PROSTAT) 30 ML LIQUID GT SCH ×3 (05:18→21:18)
[2019-10-05 07:36] VITALS: BP 127/68
[2019-10-05] MEDS: levETIRAcetam 500 MG/5 ML LIQUID UDC GT SCH ×2 (08:28→20:49)
[2019-10-05] MEDS: FUROSEMIDE 20 MG TABLET GT SCH (08:28)
[2019-10-05] MEDS: DIGOXIN 125 MCG TABLET GT SCH (08:29)
[2019-10-05] MEDS: FAMOTIDINE 20 MG TABLET GT SCH ×2 (08:30→20:49)
[2019-10-05] MEDS: NORMAL SALINE NASAL 45 ML BOTTLE NS SCH (08:30)
[2019-10-05] MEDS: POTASSIUM CHLORIDE 40 MEQ/30 ML LIQUID UDC GT SCH (08:31)
[2019-10-05] MEDS: Z GUARD REMEDY PASTE 57 GM TUBE TOP SCH ×2 (08:31→20:49)
[2019-10-05] MEDS: TRIAMCINOLONE ACET 0.1% CREAM 15 GM TUBE TP SCH ×2 (08:32→20:49)
[2019-10-05] MEDS: SODIUM HYPOCHLORITE 0.125% (QUARTER STRENGTH) 473 ML BOTTLE TP SCH ×2 (08:32→20:49)
[2019-10-05] MEDS: THERAHONEY GEL 1.5 OZ TUBE TOP SCH ×2 (08:32→20:49)
[2019-10-05] MEDS: NYSTATIN CREAM 30 GM TUBE TP SCH ×2 (08:32→20:49)
[2019-10-05] MEDS: HYDROGEN PEROXIDE 3% 118 ML BOTTLE TP SCH ×2 (09:00→21:42)
[2019-10-05] MEDS: ASCORBIC ACID 500 MG TABLET PO SCH (20:49)
[2019-10-05] MEDS: ACIDOPHILUS/BULGARICUS CHEW TAB GT SCH (20:49)
[2019-10-05] MEDS: GLUCERNA 1.2 1000ML LIQUID GT PRN (21:30)
[2019-10-05 21:58] VITALS: BP 100/67
[2019-10-06] MEDS: POLYVINYL ALCOHOL OPHT DROPS 15 ML BOTTLE EACHEYE SCH ×3 (05:16→21:03)
[2019-10-06] MEDS: ARGININE/GLUTAMINE/CALCIUM BMB 1 EACH POWD.PACK GT SCH ×2 (05:16→17:34)
[2019-10-06] MEDS: PROTEIN SUPPLEMENT (PROSTAT) 30 ML LIQUID GT SCH ×3 (05:16→21:03)
[2019-10-06 08:00] VITALS: BP 123/70
[2019-10-06] MEDS: levETIRAcetam 500 MG/5 ML LIQUID UDC GT SCH ×2 (08:58→21:02)
[2019-10-06] MEDS: FUROSEMIDE 20 MG TABLET GT SCH (08:59)
[2019-10-06] MEDS: DIGOXIN 125 MCG TABLET GT SCH (08:59)
[2019-10-06] MEDS: FAMOTIDINE 20 MG TABLET GT SCH ×2 (08:59→21:02)
[2019-10-06] MEDS: POTASSIUM CHLORIDE 40 MEQ/30 ML LIQUID UDC GT SCH (08:59)
[2019-10-06] MEDS: HYDROGEN PEROXIDE 3% 118 ML BOTTLE TP SCH ×2 (09:00→21:27)
[2019-10-06] MEDS: NORMAL SALINE NASAL 45 ML BOTTLE NS SCH (09:00)
[2019-10-06] MEDS: Z GUARD REMEDY PASTE 57 GM TUBE TOP SCH ×2 (09:00→21:02)
[2019-10-06] MEDS: TRIAMCINOLONE ACET 0.1% CREAM 15 GM TUBE TP SCH ×2 (09:00→21:02)
[2019-10-06] MEDS: THERAHONEY GEL 1.5 OZ TUBE TOP SCH ×2 (09:00→21:02)
[2019-10-06] MEDS: SODIUM HYPOCHLORITE 0.125% (QUARTER STRENGTH) 473 ML BOTTLE TP SCH ×2 (09:00→21:02)
--- NOTE | 2019-10-06 09:00 | NUR ---
OBSERVED BY [facility] IN MORNING CARE PT. WITH MIDDLE FINGER PROXIMAL PHALANGE VISIBLE LIFTED AND DIFFERENT FROM THE OTHER FINGERS.NOTED NO BRUISING ,NO REDNESS ,NO DISCOLORATION,NO FACIAL GRIMACING.
[2019-10-06] MEDS: NYSTATIN CREAM 30 GM TUBE TP SCH ×2 (09:01→21:02)
[2019-10-06] MEDS: ACETAMINOPHEN 650 MG/20 ML UDC- SA PATIENTS-PAIN ONLY GT PRN (09:35)
--- NOTE | 2019-10-06 09:35 | NUR ---
CALLED TO ROOM BY CONTROL INSPECTOR. NOTED LEFT MIDDLE FINGER APPEARS TO BE PAINFUL TO TOUCH. WHEN ASKED PT IF PAINFUL. PT WITH FACIAL GRIMACING. TYLENOL GIVEN PRN FOR PAIN. WILL MONITOR. CHARGE NURSE MADE AWARE.
[2019-10-06] MEDS: GLUCERNA 1.2 1000ML LIQUID GT PRN (17:34)
[2019-10-06] MEDS: ASCORBIC ACID 500 MG TABLET PO SCH (21:02)
[2019-10-06] MEDS: ACIDOPHILUS/BULGARICUS CHEW TAB GT SCH (21:02)
[2019-10-06 22:35] VITALS: BP 122/62
[2019-10-07] MEDS: PROTEIN SUPPLEMENT (PROSTAT) 30 ML LIQUID GT SCH ×3 (05:17→21:18)
[2019-10-07] MEDS: ARGININE/GLUTAMINE/CALCIUM BMB 1 EACH POWD.PACK GT SCH ×2 (05:17→17:58)
[2019-10-07] MEDS: POLYVINYL ALCOHOL OPHT DROPS 15 ML BOTTLE EACHEYE SCH ×3 (05:17→21:18)
[2019-10-07 07:47] VITALS: BP 143/80
[2019-10-07] MEDS: HYDROGEN PEROXIDE 3% 118 ML BOTTLE TP SCH ×2 (08:30→21:40)
[2019-10-07] MEDS: levETIRAcetam 500 MG/5 ML LIQUID UDC GT SCH ×2 (08:38→21:15)
[2019-10-07] MEDS: DIGOXIN 125 MCG TABLET GT SCH (08:38)
[2019-10-07] MEDS: FUROSEMIDE 20 MG TABLET GT SCH (08:39)
[2019-10-07] MEDS: POTASSIUM CHLORIDE 40 MEQ/30 ML LIQUID UDC GT SCH (08:39)
[2019-10-07] MEDS: FAMOTIDINE 20 MG TABLET GT SCH ×2 (08:39→21:15)
[2019-10-07] MEDS: NORMAL SALINE NASAL 45 ML BOTTLE NS SCH (08:40)
[2019-10-07] MEDS: TRIAMCINOLONE ACET 0.1% CREAM 15 GM TUBE TP SCH ×2 (08:40→21:17)
[2019-10-07] MEDS: SODIUM HYPOCHLORITE 0.125% (QUARTER STRENGTH) 473 ML BOTTLE TP SCH ×2 (08:40→21:17)
[2019-10-07] MEDS: NYSTATIN CREAM 30 GM TUBE TP SCH ×2 (08:40→21:17)
[2019-10-07] MEDS: Z GUARD REMEDY PASTE 57 GM TUBE TOP SCH ×2 (08:40→21:17)
[2019-10-07] MEDS: THERAHONEY GEL 1.5 OZ TUBE TOP SCH ×2 (08:40→21:17)
[2019-10-07 20:23] VITALS: BP 131/57
[2019-10-07] MEDS: ASCORBIC ACID 500 MG TABLET PO SCH (21:15)
[2019-10-07] MEDS: ACIDOPHILUS/BULGARICUS CHEW TAB GT SCH (21:15)
[2019-10-08] MEDS: GLUCERNA 1.2 1000ML LIQUID GT PRN (00:58)
[2019-10-08] MEDS: POLYVINYL ALCOHOL OPHT DROPS 15 ML BOTTLE EACHEYE SCH ×3 (06:10→22:33)
[2019-10-08] MEDS: ARGININE/GLUTAMINE/CALCIUM BMB 1 EACH POWD.PACK GT SCH ×2 (06:10→17:12)
[2019-10-08] MEDS: PROTEIN SUPPLEMENT (PROSTAT) 30 ML LIQUID GT SCH ×3 (06:10→22:33)
[2019-10-08 07:19] LABS: BASOPHILS % (AUTO) 0.7 % (0.0-2.0); EOSINOPHILS # (AUTO) 0.1 K/uL (0.0-0.7); EOSINOPHILS % (AUTO) 1.9 % (0.0-7.0); HEMATOCRIT 36.2 % (31.2-41.9); HEMOGLOBIN 12.1 g/dL (10.9-14.3); LYMPHOCYTES # (AUTO) 1.2 K/uL (20.0-40.0); LYMPHOCYTES % (AUTO) 30.5 % (20.5-51.5); MEAN CORPUSCULAR HEMOGLOBIN 31.3 uug (24.7-32.8); MEAN CORPUSCULAR HGB CONC 34 g/dL (32.3-35.6); MEAN CORPUSCULAR VOLUME 93.3 fL (75.5-95.3); MONOCYTES # (AUTO) 0.5 K/uL (2.0-10.0); MONOCYTES % (AUTO) 11.2 % (0.0-11.0); NEUTROPHILS # (AUTO) 2.3 K/uL (1.8-8.9); NEUTROPHILS % (AUTO) 55.7 % (38.5-71.5); PLATELET COUNT (AUTO) 105 K/uL (179-408); RED BLOOD CELL COUNT(AUTO) 3.88 MIL/uL (3.63-4.92); WHITE BLOOD COUNT (AUTO) 4.1 K/uL (3.8-11.8)
[2019-10-08 07:28] VITALS: BP 106/52
[2019-10-08 07:40] LABS: ALANINE AMINOTRANSFERASE 18 U/L (14-59); ALKALINE PHOSPHATASE 235 U/L (50-136); ASPARTATE AMINOTRANSFERASE 25 U/L (15-37); BILIRUBIN,TOTAL 0.4 mg/dL (0.2-1.0); CARBON DIOXIDE 37 mmol/L (21-32); CHLORIDE 105 mmol/L (98-107); CREATININE 0.5 mg/dL (0.6-1.3); GLUCOSE 118 mg/dL (74-106); MAGNESIUM 2.3 mg/dL (1.8-2.4); PHOSPHOROUS 3.1 mg/dL (2.5-4.9); POTASSIUM 3.5 mmol/L (3.5-5.1); TOTAL PROTEIN, SERUM 7.9 g/dL (6.4-8.2); UREA NITROGEN, BLOOD 38 mg/dL (7-18)
[2019-10-08] MEDS: levETIRAcetam 500 MG/5 ML LIQUID UDC GT SCH ×2 (08:44→20:13)
[2019-10-08] MEDS: DIGOXIN 125 MCG TABLET GT SCH (08:44)
[2019-10-08] MEDS: POTASSIUM CHLORIDE 40 MEQ/30 ML LIQUID UDC GT SCH (08:45)
[2019-10-08] MEDS: FAMOTIDINE 20 MG TABLET GT SCH ×2 (08:45→20:13)
[2019-10-08] MEDS: FUROSEMIDE 20 MG TABLET GT SCH (08:45)
[2019-10-08] MEDS: NORMAL SALINE NASAL 45 ML BOTTLE NS SCH (08:46)
[2019-10-08] MEDS: ACETAMINOPHEN 650 MG/20 ML UDC- SA PATIENTS-PAIN ONLY GT PRN ×2 (08:47→20:26)
[2019-10-08] MEDS: SODIUM HYPOCHLORITE 0.125% (QUARTER STRENGTH) 473 ML BOTTLE TP SCH ×2 (09:28→20:15)
[2019-10-08] MEDS: NYSTATIN CREAM 30 GM TUBE TP SCH ×2 (09:28→20:15)
[2019-10-08] MEDS: Z GUARD REMEDY PASTE 57 GM TUBE TOP SCH ×2 (09:28→20:14)
[2019-10-08] MEDS: TRIAMCINOLONE ACET 0.1% CREAM 15 GM TUBE TP SCH ×2 (09:28→20:15)
[2019-10-08] MEDS: THERAHONEY GEL 1.5 OZ TUBE TOP SCH ×2 (09:28→20:15)
[2019-10-08] MEDS: HYDROGEN PEROXIDE 3% 118 ML BOTTLE TP SCH ×2 (09:50→21:30)
--- NOTE | 2019-10-08 12:00 | NUR ---
SEEN BY ROOPA Dixon AND WITH NNO.
[2019-10-08 20:00] VITALS: BP 133/62
[2019-10-08] MEDS: ACIDOPHILUS/BULGARICUS CHEW TAB GT SCH (20:12)
[2019-10-08] MEDS: ASCORBIC ACID 500 MG TABLET PO SCH (20:14)
--- NOTE | 2019-10-08 20:15 | NUR ---
PT RECEIVED ON CONTINUOUS VENT, TRACH CARE DONE. TRACH IN PLACED AND SECURED WITH TRACH TIE. BACK UP TRACH AND AMBU BAG AT BEDSIDE. SUCTION PRN. VENT CIRCUIT CHANGED. VENT CHECKED, ALARMS WORKING WELL AND AUDIBLE. NO DISTRESS NOTED AT THIS TIME. WILL CONTINUE TO MONITOR.
[2019-10-09] MEDS: GLUCERNA 1.2 1000ML LIQUID GT PRN (04:00)
[2019-10-09] MEDS: ARGININE/GLUTAMINE/CALCIUM BMB 1 EACH POWD.PACK GT SCH ×2 (05:38→17:09)
[2019-10-09] MEDS: POLYVINYL ALCOHOL OPHT DROPS 15 ML BOTTLE EACHEYE SCH ×3 (05:38→22:34)
[2019-10-09] MEDS: PROTEIN SUPPLEMENT (PROSTAT) 30 ML LIQUID GT SCH ×3 (05:38→22:34)
[2019-10-09 07:52] VITALS: BP 120/69
[2019-10-09] MEDS: levETIRAcetam 500 MG/5 ML LIQUID UDC GT SCH ×2 (08:54→20:43)
[2019-10-09] MEDS: FAMOTIDINE 20 MG TABLET GT SCH ×2 (08:55→20:43)
[2019-10-09] MEDS: FUROSEMIDE 20 MG TABLET GT SCH (08:55)
[2019-10-09] MEDS: DIGOXIN 125 MCG TABLET GT SCH (08:55)
[2019-10-09] MEDS: POTASSIUM CHLORIDE 40 MEQ/30 ML LIQUID UDC GT SCH (08:55)
[2019-10-09] MEDS: NORMAL SALINE NASAL 45 ML BOTTLE NS SCH (08:56)
[2019-10-09] MEDS: Z GUARD REMEDY PASTE 57 GM TUBE TOP SCH ×2 (08:57→20:43)
[2019-10-09] MEDS: ACETAMINOPHEN 650 MG/20 ML UDC- SA PATIENTS-PAIN ONLY GT PRN (08:58)
[2019-10-09] MEDS: HYDROGEN PEROXIDE 3% 118 ML BOTTLE TP SCH ×2 (09:00→21:21)
[2019-10-09] MEDS: THERAHONEY GEL 1.5 OZ TUBE TOP SCH ×2 (09:30→20:43)
[2019-10-09] MEDS: TRIAMCINOLONE ACET 0.1% CREAM 15 GM TUBE TP SCH ×2 (09:30→20:43)
[2019-10-09] MEDS: SODIUM HYPOCHLORITE 0.125% (QUARTER STRENGTH) 473 ML BOTTLE TP SCH ×2 (09:30→20:43)
[2019-10-09] MEDS: NYSTATIN CREAM 30 GM TUBE TP SCH ×2 (09:30→20:43)
[2019-10-09 20:00] VITALS: BP 105/51
[2019-10-09] MEDS: ASCORBIC ACID 500 MG TABLET PO SCH (20:43)
[2019-10-09] MEDS: ACIDOPHILUS/BULGARICUS CHEW TAB GT SCH (20:43)
[2019-10-10] MEDS: ARGININE/GLUTAMINE/CALCIUM BMB 1 EACH POWD.PACK GT SCH ×2 (05:09→17:36)
[2019-10-10] MEDS: POLYVINYL ALCOHOL OPHT DROPS 15 ML BOTTLE EACHEYE SCH ×3 (05:09→22:36)
[2019-10-10] MEDS: PROTEIN SUPPLEMENT (PROSTAT) 30 ML LIQUID GT SCH ×3 (05:09→22:36)
[2019-10-10] MEDS: GLUCERNA 1.2 1000ML LIQUID GT PRN (05:09)
[2019-10-10 07:48] VITALS: BP 133/54
[2019-10-10] MEDS: levETIRAcetam 500 MG/5 ML LIQUID UDC GT SCH ×2 (08:09→20:04)
[2019-10-10] MEDS: DIGOXIN 125 MCG TABLET GT SCH (08:10)
[2019-10-10] MEDS: POTASSIUM CHLORIDE 40 MEQ/30 ML LIQUID UDC GT SCH (08:11)
[2019-10-10] MEDS: FUROSEMIDE 20 MG TABLET GT SCH (08:11)
[2019-10-10] MEDS: FAMOTIDINE 20 MG TABLET GT SCH ×2 (08:11→20:04)
[2019-10-10] MEDS: THERAHONEY GEL 1.5 OZ TUBE TOP SCH ×2 (08:12→20:06)
[2019-10-10] MEDS: Z GUARD REMEDY PASTE 57 GM TUBE TOP SCH ×2 (08:12→20:06)
[2019-10-10] MEDS: NORMAL SALINE NASAL 45 ML BOTTLE NS SCH (08:12)
[2019-10-10] MEDS: NYSTATIN CREAM 30 GM TUBE TP SCH ×2 (08:13→20:06)
[2019-10-10] MEDS: SODIUM HYPOCHLORITE 0.125% (QUARTER STRENGTH) 473 ML BOTTLE TP SCH ×2 (08:13→20:06)
[2019-10-10] MEDS: TRIAMCINOLONE ACET 0.1% CREAM 15 GM TUBE TP SCH ×2 (08:13→20:06)
[2019-10-10] MEDS: HYDROGEN PEROXIDE 3% 118 ML BOTTLE TP SCH ×2 (10:15→21:01)
[2019-10-10 20:00] VITALS: BP 105/63
[2019-10-10] MEDS: ACIDOPHILUS/BULGARICUS CHEW TAB GT SCH (20:03)
[2019-10-10] MEDS: ASCORBIC ACID 500 MG TABLET PO SCH (20:05)
[2019-10-11] MEDS: PROTEIN SUPPLEMENT (PROSTAT) 30 ML LIQUID GT SCH ×3 (05:51→22:07)
[2019-10-11] MEDS: ARGININE/GLUTAMINE/CALCIUM BMB 1 EACH POWD.PACK GT SCH ×2 (05:51→17:41)
[2019-10-11] MEDS: POLYVINYL ALCOHOL OPHT DROPS 15 ML BOTTLE EACHEYE SCH ×3 (05:51→22:07)
[2019-10-11] MEDS: GLUCERNA 1.2 1000ML LIQUID GT PRN (06:45)
[2019-10-11 07:45] VITALS: BP 123/67
[2019-10-11] MEDS: DIGOXIN 125 MCG TABLET GT SCH (08:18)
[2019-10-11] MEDS: NYSTATIN CREAM 30 GM TUBE TP SCH ×2 (08:18→21:00)
[2019-10-11] MEDS: FUROSEMIDE 20 MG TABLET GT SCH (08:18)
[2019-10-11] MEDS: TRIAMCINOLONE ACET 0.1% CREAM 15 GM TUBE TP SCH ×2 (08:18→21:00)
[2019-10-11] MEDS: NORMAL SALINE NASAL 45 ML BOTTLE NS SCH (08:18)
[2019-10-11] MEDS: FAMOTIDINE 20 MG TABLET GT SCH ×2 (08:18→21:00)
[2019-10-11] MEDS: THERAHONEY GEL 1.5 OZ TUBE TOP SCH ×2 (08:18→21:00)
[2019-10-11] MEDS: levETIRAcetam 500 MG/5 ML LIQUID UDC GT SCH ×2 (08:18→21:00)
[2019-10-11] MEDS: Z GUARD REMEDY PASTE 57 GM TUBE TOP SCH ×2 (08:18→21:00)
[2019-10-11] MEDS: POTASSIUM CHLORIDE 40 MEQ/30 ML LIQUID UDC GT SCH (08:18)
[2019-10-11] MEDS: SODIUM HYPOCHLORITE 0.125% (QUARTER STRENGTH) 473 ML BOTTLE TP SCH ×2 (08:18→21:00)
[2019-10-11] MEDS: HYDROGEN PEROXIDE 3% 118 ML BOTTLE TP SCH ×2 (09:58→21:33)
[2019-10-11 20:34] VITALS: BP 116/50
[2019-10-11] MEDS: ACIDOPHILUS/BULGARICUS CHEW TAB GT SCH (21:00)
[2019-10-11] MEDS: ASCORBIC ACID 500 MG TABLET PO SCH (21:00)
[2019-10-12] MEDS: POLYVINYL ALCOHOL OPHT DROPS 15 ML BOTTLE EACHEYE SCH ×3 (05:32→21:03)
[2019-10-12] MEDS: PROTEIN SUPPLEMENT (PROSTAT) 30 ML LIQUID GT SCH ×3 (05:32→21:03)
[2019-10-12] MEDS: ARGININE/GLUTAMINE/CALCIUM BMB 1 EACH POWD.PACK GT SCH ×2 (05:32→17:36)
[2019-10-12 07:33] VITALS: BP 124/60
[2019-10-12] MEDS: FUROSEMIDE 20 MG TABLET GT SCH (08:27)
[2019-10-12] MEDS: FAMOTIDINE 20 MG TABLET GT SCH ×2 (08:27→20:50)
[2019-10-12] MEDS: DIGOXIN 125 MCG TABLET GT SCH (08:27)
[2019-10-12] MEDS: POTASSIUM CHLORIDE 40 MEQ/30 ML LIQUID UDC GT SCH (08:27)
[2019-10-12] MEDS: levETIRAcetam 500 MG/5 ML LIQUID UDC GT SCH ×2 (08:27→20:50)
[2019-10-12] MEDS: TRIAMCINOLONE ACET 0.1% CREAM 15 GM TUBE TP SCH ×2 (08:29→20:51)
[2019-10-12] MEDS: SODIUM HYPOCHLORITE 0.125% (QUARTER STRENGTH) 473 ML BOTTLE TP SCH ×2 (08:29→20:51)
[2019-10-12] MEDS: THERAHONEY GEL 1.5 OZ TUBE TOP SCH ×2 (08:29→20:51)
[2019-10-12] MEDS: NORMAL SALINE NASAL 45 ML BOTTLE NS SCH (08:29)
[2019-10-12] MEDS: NYSTATIN CREAM 30 GM TUBE TP SCH ×2 (08:29→20:51)
[2019-10-12] MEDS: Z GUARD REMEDY PASTE 57 GM TUBE TOP SCH ×2 (08:29→20:51)
[2019-10-12] MEDS: HYDROGEN PEROXIDE 3% 118 ML BOTTLE TP SCH ×2 (09:00→21:29)
--- NOTE | 2019-10-12 11:00 | NUR ---
New orders from Dr Betancur carried out.
--- NOTE | 2019-10-12 16:30 | NUR ---
provided zoom for patient with daughter,patient stable no signs of pain or discomfort noted, will continue to monitor.
[2019-10-12] MEDS: ASCORBIC ACID 500 MG TABLET PO SCH (20:50)
[2019-10-12] MEDS: ACIDOPHILUS/BULGARICUS CHEW TAB GT SCH (20:50)
[2019-10-12] MEDS: GLUCERNA 1.2 1000ML LIQUID GT PRN (22:31)
[2019-10-12 23:27] VITALS: BP 112/57
[2019-10-13] MEDS: PROTEIN SUPPLEMENT (PROSTAT) 30 ML LIQUID GT SCH ×3 (05:15→22:17)
[2019-10-13] MEDS: POLYVINYL ALCOHOL OPHT DROPS 15 ML BOTTLE EACHEYE SCH ×3 (05:15→22:17)
[2019-10-13] MEDS: ARGININE/GLUTAMINE/CALCIUM BMB 1 EACH POWD.PACK GT SCH ×2 (05:15→17:30)
[2019-10-13 07:44] VITALS: BP 105/70
[2019-10-13] MEDS: DIGOXIN 125 MCG TABLET GT SCH (08:05)
[2019-10-13] MEDS: FUROSEMIDE 20 MG TABLET GT SCH (08:05)
[2019-10-13] MEDS: FAMOTIDINE 20 MG TABLET GT SCH ×2 (08:05→20:44)
[2019-10-13] MEDS: levETIRAcetam 500 MG/5 ML LIQUID UDC GT SCH ×2 (08:05→20:44)
[2019-10-13] MEDS: NORMAL SALINE NASAL 45 ML BOTTLE NS SCH (08:06)
[2019-10-13] MEDS: THERAHONEY GEL 1.5 OZ TUBE TOP SCH ×2 (08:07→20:46)
[2019-10-13] MEDS: Z GUARD REMEDY PASTE 57 GM TUBE TOP SCH ×2 (08:07→20:44)
[2019-10-13] MEDS: NYSTATIN CREAM 30 GM TUBE TP SCH ×2 (08:07→20:47)
[2019-10-13] MEDS: SODIUM HYPOCHLORITE 0.125% (QUARTER STRENGTH) 473 ML BOTTLE TP SCH ×2 (08:07→20:46)
[2019-10-13] MEDS: TRIAMCINOLONE ACET 0.1% CREAM 15 GM TUBE TP SCH ×2 (08:07→20:47)
[2019-10-13] MEDS: POTASSIUM CHLORIDE 40 MEQ/30 ML LIQUID UDC GT SCH (08:57)
[2019-10-13] MEDS: HYDROGEN PEROXIDE 3% 118 ML BOTTLE TP SCH ×2 (08:59→19:24)
[2019-10-13 11:56] LABS: BASOPHILS % (AUTO) 0.3 % (0.0-2.0); EOSINOPHILS # (AUTO) 0.1 K/uL (0.0-0.7); EOSINOPHILS % (AUTO) 2.2 % (0.0-7.0); HEMATOCRIT 38.3 % (31.2-41.9); HEMOGLOBIN 12.4 g/dL (10.9-14.3); LYMPHOCYTES # (AUTO) 1.5 K/uL (20.0-40.0); LYMPHOCYTES % (AUTO) 35.2 % (20.5-51.5); MEAN CORPUSCULAR HEMOGLOBIN 30.6 uug (24.7-32.8); MEAN CORPUSCULAR HGB CONC 32 g/dL (32.3-35.6); MEAN CORPUSCULAR VOLUME 94.4 fL (75.5-95.3); MONOCYTES # (AUTO) 0.4 K/uL (2.0-10.0); MONOCYTES % (AUTO) 10.1 % (0.0-11.0); NEUTROPHILS # (AUTO) 2.2 K/uL (1.8-8.9); NEUTROPHILS % (AUTO) 52.2 % (38.5-71.5); PLATELET COUNT (AUTO) 116 K/uL (179-408); RED BLOOD CELL COUNT(AUTO) 4.05 MIL/uL (3.63-4.92); WHITE BLOOD COUNT (AUTO) 4.1 K/uL (3.8-11.8)
[2019-10-13 11:57] LABS: CREATININE 0.6 mg/dL (0.6-1.3); MAGNESIUM 2.3 mg/dL (1.8-2.4); PHOSPHOROUS 3.4 mg/dL (2.5-4.9); POTASSIUM 3.9 mmol/L (3.5-5.1)
[2019-10-13] MEDS: ASCORBIC ACID 500 MG TABLET PO SCH (20:44)
[2019-10-13] MEDS: ACIDOPHILUS/BULGARICUS CHEW TAB GT SCH (20:44)
[2019-10-13 22:30] VITALS: BP 132/61
[2019-10-14] MEDS: PROTEIN SUPPLEMENT (PROSTAT) 30 ML LIQUID GT SCH ×3 (06:25→21:02)
[2019-10-14] MEDS: ARGININE/GLUTAMINE/CALCIUM BMB 1 EACH POWD.PACK GT SCH ×2 (06:25→17:29)
[2019-10-14] MEDS: POLYVINYL ALCOHOL OPHT DROPS 15 ML BOTTLE EACHEYE SCH ×3 (06:25→22:25)
[2019-10-14] MEDS: HYDROGEN PEROXIDE 3% 118 ML BOTTLE TP SCH ×2 (07:33→21:25)
[2019-10-14 08:17] VITALS: BP 128/62
[2019-10-14] MEDS: levETIRAcetam 500 MG/5 ML LIQUID UDC GT SCH ×2 (08:24→21:02)
[2019-10-14] MEDS: NORMAL SALINE NASAL 45 ML BOTTLE NS SCH (08:25)
[2019-10-14] MEDS: THERAHONEY GEL 1.5 OZ TUBE TOP SCH ×2 (08:25→21:02)
[2019-10-14] MEDS: SODIUM HYPOCHLORITE 0.125% (QUARTER STRENGTH) 473 ML BOTTLE TP SCH ×2 (08:25→21:02)
[2019-10-14] MEDS: NYSTATIN CREAM 30 GM TUBE TP SCH ×2 (08:25→21:02)
[2019-10-14] MEDS: DIGOXIN 125 MCG TABLET GT SCH (08:25)
[2019-10-14] MEDS: TRIAMCINOLONE ACET 0.1% CREAM 15 GM TUBE TP SCH ×2 (08:25→21:02)
[2019-10-14] MEDS: POTASSIUM CHLORIDE 40 MEQ/30 ML LIQUID UDC GT SCH (08:25)
[2019-10-14] MEDS: Z GUARD REMEDY PASTE 57 GM TUBE TOP SCH ×2 (08:25→21:02)
[2019-10-14] MEDS: FUROSEMIDE 20 MG TABLET GT SCH (08:25)
[2019-10-14] MEDS: FAMOTIDINE 20 MG TABLET GT SCH ×2 (08:25→21:02)
[2019-10-14 20:50] VITALS: BP 138/62
[2019-10-14] MEDS: ASCORBIC ACID 500 MG TABLET PO SCH (21:02)
[2019-10-14] MEDS: ACIDOPHILUS/BULGARICUS CHEW TAB GT SCH (21:02)
[2019-10-15] MEDS: POLYVINYL ALCOHOL OPHT DROPS 15 ML BOTTLE EACHEYE SCH ×3 (05:01→22:47)
[2019-10-15] MEDS: ARGININE/GLUTAMINE/CALCIUM BMB 1 EACH POWD.PACK GT SCH ×2 (05:01→17:11)
[2019-10-15] MEDS: PROTEIN SUPPLEMENT (PROSTAT) 30 ML LIQUID GT SCH ×3 (05:01→22:47)
[2019-10-15 07:32] VITALS: BP 114/63
[2019-10-15] MEDS: FUROSEMIDE 20 MG TABLET GT SCH (08:35)
[2019-10-15] MEDS: Z GUARD REMEDY PASTE 57 GM TUBE TOP SCH ×2 (08:35→20:51)
[2019-10-15] MEDS: POTASSIUM CHLORIDE 40 MEQ/30 ML LIQUID UDC GT SCH (08:35)
[2019-10-15] MEDS: levETIRAcetam 500 MG/5 ML LIQUID UDC GT SCH ×2 (08:35→20:44)
[2019-10-15] MEDS: DIGOXIN 125 MCG TABLET GT SCH (08:35)
[2019-10-15] MEDS: NORMAL SALINE NASAL 45 ML BOTTLE NS SCH (08:35)
[2019-10-15] MEDS: FAMOTIDINE 20 MG TABLET GT SCH ×2 (08:35→20:44)
[2019-10-15] MEDS: THERAHONEY GEL 1.5 OZ TUBE TOP SCH ×2 (08:35→20:51)
[2019-10-15] MEDS: TRIAMCINOLONE ACET 0.1% CREAM 15 GM TUBE TP SCH ×2 (08:36→20:52)
[2019-10-15] MEDS: SODIUM HYPOCHLORITE 0.125% (QUARTER STRENGTH) 473 ML BOTTLE TP SCH ×2 (08:36→20:52)
[2019-10-15] MEDS: NYSTATIN CREAM 30 GM TUBE TP SCH ×2 (08:36→20:52)
[2019-10-15] MEDS: HYDROGEN PEROXIDE 3% 118 ML BOTTLE TP SCH ×2 (09:42→21:25)
[2019-10-15] MEDS: GLUCERNA 1.2 1000ML LIQUID GT PRN (10:53)
[2019-10-15 20:23] VITALS: BP 107/60
[2019-10-15] MEDS: ACIDOPHILUS/BULGARICUS CHEW TAB GT SCH (20:44)
[2019-10-15] MEDS: ASCORBIC ACID 500 MG TABLET PO SCH (20:51)
[2019-10-16] MEDS: ARGININE/GLUTAMINE/CALCIUM BMB 1 EACH POWD.PACK GT SCH ×2 (05:27→17:05)
[2019-10-16] MEDS: POLYVINYL ALCOHOL OPHT DROPS 15 ML BOTTLE EACHEYE SCH ×3 (05:27→22:01)
[2019-10-16] MEDS: PROTEIN SUPPLEMENT (PROSTAT) 30 ML LIQUID GT SCH ×3 (05:27→22:01)
[2019-10-16] MEDS: HYDROGEN PEROXIDE 3% 118 ML BOTTLE TP SCH ×2 (07:13→20:54)
[2019-10-16 07:31] VITALS: BP 105/58
[2019-10-16] MEDS: levETIRAcetam 500 MG/5 ML LIQUID UDC GT SCH ×2 (08:14→20:51)
[2019-10-16] MEDS: FUROSEMIDE 20 MG TABLET GT SCH (08:14)
[2019-10-16] MEDS: DIGOXIN 125 MCG TABLET GT SCH (08:14)
[2019-10-16] MEDS: FAMOTIDINE 20 MG TABLET GT SCH ×2 (08:14→20:49)
[2019-10-16] MEDS: POTASSIUM CHLORIDE 40 MEQ/30 ML LIQUID UDC GT SCH (08:14)
[2019-10-16] MEDS: NORMAL SALINE NASAL 45 ML BOTTLE NS SCH (08:15)
[2019-10-16] MEDS: THERAHONEY GEL 1.5 OZ TUBE TOP SCH ×2 (08:15→20:49)
[2019-10-16] MEDS: Z GUARD REMEDY PASTE 57 GM TUBE TOP SCH ×2 (08:15→20:49)
[2019-10-16] MEDS: TRIAMCINOLONE ACET 0.1% CREAM 15 GM TUBE TP SCH ×2 (08:15→20:50)
[2019-10-16] MEDS: SODIUM HYPOCHLORITE 0.125% (QUARTER STRENGTH) 473 ML BOTTLE TP SCH ×2 (08:15→20:50)
[2019-10-16] MEDS: NYSTATIN CREAM 30 GM TUBE TP SCH ×2 (08:15→20:50)
[2019-10-16 20:05] VITALS: BP 119/52
[2019-10-16] MEDS: ASCORBIC ACID 500 MG TABLET PO SCH (20:49)
[2019-10-16] MEDS: ACIDOPHILUS/BULGARICUS CHEW TAB GT SCH (20:49)
[2019-10-17] MEDS: ARGININE/GLUTAMINE/CALCIUM BMB 1 EACH POWD.PACK GT SCH ×2 (06:15→17:37)
[2019-10-17] MEDS: POLYVINYL ALCOHOL OPHT DROPS 15 ML BOTTLE EACHEYE SCH ×3 (06:15→21:26)
[2019-10-17] MEDS: PROTEIN SUPPLEMENT (PROSTAT) 30 ML LIQUID GT SCH ×3 (06:15→21:26)
[2019-10-17] MEDS: HYDROGEN PEROXIDE 3% 118 ML BOTTLE TP SCH ×2 (07:23→19:17)
[2019-10-17 07:44] VITALS: BP 118/55
[2019-10-17] MEDS: levETIRAcetam 500 MG/5 ML LIQUID UDC GT SCH ×2 (08:31→21:25)
[2019-10-17] MEDS: FUROSEMIDE 20 MG TABLET GT SCH (08:31)
[2019-10-17] MEDS: POTASSIUM CHLORIDE 40 MEQ/30 ML LIQUID UDC GT SCH (08:31)
[2019-10-17] MEDS: FAMOTIDINE 20 MG TABLET GT SCH ×2 (08:31→21:25)
[2019-10-17] MEDS: DIGOXIN 125 MCG TABLET GT SCH (08:31)
[2019-10-17] MEDS: SODIUM HYPOCHLORITE 0.125% (QUARTER STRENGTH) 473 ML BOTTLE TP SCH ×2 (08:32→21:25)
[2019-10-17] MEDS: TRIAMCINOLONE ACET 0.1% CREAM 15 GM TUBE TP SCH ×2 (08:32→21:26)
[2019-10-17] MEDS: THERAHONEY GEL 1.5 OZ TUBE TOP SCH ×2 (08:32→21:25)
[2019-10-17] MEDS: NORMAL SALINE NASAL 45 ML BOTTLE NS SCH (08:32)
[2019-10-17] MEDS: NYSTATIN CREAM 30 GM TUBE TP SCH ×2 (08:32→21:26)
[2019-10-17] MEDS: Z GUARD REMEDY PASTE 57 GM TUBE TOP SCH ×2 (08:32→21:25)
[2019-10-17 20:00] VITALS: BP 127/60
[2019-10-17] MEDS: ASCORBIC ACID 500 MG TABLET PO SCH (21:25)
[2019-10-17] MEDS: ACIDOPHILUS/BULGARICUS CHEW TAB GT SCH (21:25)
[2019-10-18] MEDS: POLYVINYL ALCOHOL OPHT DROPS 15 ML BOTTLE EACHEYE SCH ×3 (05:32→21:31)
[2019-10-18] MEDS: PROTEIN SUPPLEMENT (PROSTAT) 30 ML LIQUID GT SCH ×3 (05:32→21:31)
[2019-10-18] MEDS: ARGININE/GLUTAMINE/CALCIUM BMB 1 EACH POWD.PACK GT SCH ×2 (05:32→17:32)
[2019-10-18 07:47] VITALS: BP 114/64
[2019-10-18] MEDS: HYDROGEN PEROXIDE 3% 118 ML BOTTLE TP SCH ×2 (08:23→21:35)
[2019-10-18] MEDS: levETIRAcetam 500 MG/5 ML LIQUID UDC GT SCH ×2 (08:38→20:47)
[2019-10-18] MEDS: DIGOXIN 125 MCG TABLET GT SCH (08:39)
[2019-10-18] MEDS: FUROSEMIDE 20 MG TABLET GT SCH (08:39)
[2019-10-18] MEDS: FAMOTIDINE 20 MG TABLET GT SCH ×2 (08:39→20:47)
[2019-10-18] MEDS: POTASSIUM CHLORIDE 40 MEQ/30 ML LIQUID UDC GT SCH (08:39)
[2019-10-18] MEDS: THERAHONEY GEL 1.5 OZ TUBE TOP SCH ×2 (08:40→20:47)
[2019-10-18] MEDS: SODIUM HYPOCHLORITE 0.125% (QUARTER STRENGTH) 473 ML BOTTLE TP SCH ×2 (08:40→20:47)
[2019-10-18] MEDS: TRIAMCINOLONE ACET 0.1% CREAM 15 GM TUBE TP SCH ×2 (08:40→20:47)
[2019-10-18] MEDS: NYSTATIN CREAM 30 GM TUBE TP SCH ×2 (08:40→20:47)
[2019-10-18] MEDS: NORMAL SALINE NASAL 45 ML BOTTLE NS SCH (08:40)
[2019-10-18] MEDS: Z GUARD REMEDY PASTE 57 GM TUBE TOP SCH ×2 (08:40→20:47)
[2019-10-18] MEDS: ACETAMINOPHEN 650 MG/20 ML UDC- SA PATIENTS-PAIN ONLY GT PRN (08:43)
[2019-10-18] MEDS: GLUCERNA 1.2 1000ML LIQUID GT PRN (17:39)
[2019-10-18 20:00] VITALS: BP 119/58
[2019-10-18] MEDS: ACIDOPHILUS/BULGARICUS CHEW TAB GT SCH (20:47)
[2019-10-18] MEDS: ASCORBIC ACID 500 MG TABLET PO SCH (20:47)
[2019-10-19] MEDS: PROTEIN SUPPLEMENT (PROSTAT) 30 ML LIQUID GT SCH ×3 (05:08→22:08)
[2019-10-19] MEDS: ARGININE/GLUTAMINE/CALCIUM BMB 1 EACH POWD.PACK GT SCH ×2 (05:08→18:14)
[2019-10-19] MEDS: POLYVINYL ALCOHOL OPHT DROPS 15 ML BOTTLE EACHEYE SCH ×3 (05:08→22:08)
[2019-10-19 07:24] LABS: BASOPHILS % (AUTO) 0.6 % (0.0-2.0); EOSINOPHILS % (AUTO) 3.1 % (0.0-7.0); HEMATOCRIT 37.6 % (31.2-41.9); HEMOGLOBIN 12.2 g/dL (10.9-14.3); LYMPHOCYTES % (AUTO) 33.5 % (20.5-51.5); MEAN CORPUSCULAR HEMOGLOBIN 30.6 uug (24.7-32.8); MEAN CORPUSCULAR HGB CONC 32 g/dL (32.3-35.6); MEAN CORPUSCULAR VOLUME 94.6 fL (75.5-95.3); MONOCYTES % (AUTO) 11.6 % (0.0-11.0); NEUTROPHILS % (AUTO) 51.2 % (38.5-71.5); PLATELET COUNT (AUTO) 105 K/uL (179-408); RED BLOOD CELL COUNT(AUTO) 3.98 MIL/uL (3.63-4.92); WHITE BLOOD COUNT (AUTO) 4.1 K/uL (3.8-11.8)
[2019-10-19 07:25] LABS: EOSINOPHILS # (AUTO) 0.1 K/uL (0.0-0.7); LYMPHOCYTES # (AUTO) 1.4 K/uL (20.0-40.0); MONOCYTES # (AUTO) 0.5 K/uL (2.0-10.0); NEUTROPHILS # (AUTO) 2.1 K/uL (1.8-8.9)
[2019-10-19 07:45] VITALS: BP 126/58
[2019-10-19 07:49] LABS: CREATININE 0.6 mg/dL (0.6-1.3); MAGNESIUM 2.3 mg/dL (1.8-2.4); PHOSPHOROUS 3.4 mg/dL (2.5-4.9)
[2019-10-19] MEDS: HYDROGEN PEROXIDE 3% 118 ML BOTTLE TP SCH ×2 (08:06→21:14)
[2019-10-19] MEDS: levETIRAcetam 500 MG/5 ML LIQUID UDC GT SCH ×2 (08:27→20:52)
[2019-10-19] MEDS: DIGOXIN 125 MCG TABLET GT SCH (08:27)
[2019-10-19] MEDS: FUROSEMIDE 20 MG TABLET GT SCH (08:28)
[2019-10-19] MEDS: POTASSIUM CHLORIDE 40 MEQ/30 ML LIQUID UDC GT SCH (08:29)
[2019-10-19] MEDS: Z GUARD REMEDY PASTE 57 GM TUBE TOP SCH ×2 (08:29→20:52)
[2019-10-19] MEDS: NORMAL SALINE NASAL 45 ML BOTTLE NS SCH (08:29)
[2019-10-19] MEDS: THERAHONEY GEL 1.5 OZ TUBE TOP SCH ×2 (08:29→20:52)
[2019-10-19] MEDS: FAMOTIDINE 20 MG TABLET GT SCH ×2 (08:29→20:52)
[2019-10-19] MEDS: SODIUM HYPOCHLORITE 0.125% (QUARTER STRENGTH) 473 ML BOTTLE TP SCH ×2 (08:30→20:52)
[2019-10-19] MEDS: NYSTATIN CREAM 30 GM TUBE TP SCH ×2 (08:30→20:52)
[2019-10-19] MEDS: TRIAMCINOLONE ACET 0.1% CREAM 15 GM TUBE TP SCH ×2 (08:30→20:52)
--- NOTE | 2019-10-19 16:26 | NUR ---
NEW ORDER CARRIED OUT FROM DR. ALEJANDRA HOUGH FOR HARD TISSUE SPECIMEN FROM SACRAL WOUND(FOUND COMING OFF FROM WOUND BED WHEN NURSE WAS DOING WOUND CARE) TO BE SEND TO PATHOLOGY AND SENT.
--- NOTE | 2019-10-19 17:43 | NUR ---
MESSAGE LEFT TO JOSE DUMAS) IN HER CELL PHONE.
[2019-10-19] MEDS: GLUCERNA 1.2 1000ML LIQUID GT PRN (18:14)
[2019-10-19] MEDS: ASCORBIC ACID 500 MG TABLET PO SCH (20:52)
[2019-10-19] MEDS: ACIDOPHILUS/BULGARICUS CHEW TAB GT SCH (20:52)
[2019-10-19] MEDS: ACETAMINOPHEN 650 MG/20 ML UDC- SA PATIENTS-PAIN ONLY GT PRN (21:00)
[2019-10-19 22:57] VITALS: BP 112/58
[2019-10-20] MEDS: PROTEIN SUPPLEMENT (PROSTAT) 30 ML LIQUID GT SCH ×3 (05:18→21:54)
[2019-10-20] MEDS: ARGININE/GLUTAMINE/CALCIUM BMB 1 EACH POWD.PACK GT SCH ×2 (05:18→17:56)
[2019-10-20] MEDS: POLYVINYL ALCOHOL OPHT DROPS 15 ML BOTTLE EACHEYE SCH ×3 (05:18→21:54)
[2019-10-20] MEDS: HYDROGEN PEROXIDE 3% 118 ML BOTTLE TP SCH ×2 (07:12→21:33)
[2019-10-20 07:39] VITALS: BP 128/57
[2019-10-20] MEDS: levETIRAcetam 500 MG/5 ML LIQUID UDC GT SCH ×2 (08:20→21:53)
[2019-10-20] MEDS: DIGOXIN 125 MCG TABLET GT SCH (08:22)
[2019-10-20] MEDS: FUROSEMIDE 20 MG TABLET GT SCH (08:22)
[2019-10-20] MEDS: FAMOTIDINE 20 MG TABLET GT SCH ×2 (08:22→21:53)
[2019-10-20] MEDS: NORMAL SALINE NASAL 45 ML BOTTLE NS SCH (08:23)
[2019-10-20] MEDS: Z GUARD REMEDY PASTE 57 GM TUBE TOP SCH ×2 (08:23→21:53)
[2019-10-20] MEDS: POTASSIUM CHLORIDE 40 MEQ/30 ML LIQUID UDC GT SCH (08:23)
[2019-10-20] MEDS: TRIAMCINOLONE ACET 0.1% CREAM 15 GM TUBE TP SCH ×2 (08:24→21:54)
[2019-10-20] MEDS: THERAHONEY GEL 1.5 OZ TUBE TOP SCH ×2 (08:24→21:54)
[2019-10-20] MEDS: NYSTATIN CREAM 30 GM TUBE TP SCH ×2 (08:24→21:54)
[2019-10-20] MEDS: SODIUM HYPOCHLORITE 0.125% (QUARTER STRENGTH) 473 ML BOTTLE TP SCH ×2 (08:27→21:54)
[2019-10-20] MEDS: GLUCERNA 1.2 1000ML LIQUID GT PRN (15:48)
[2019-10-20] MEDS: ACIDOPHILUS/BULGARICUS CHEW TAB GT SCH (21:53)
[2019-10-20] MEDS: ASCORBIC ACID 500 MG TABLET PO SCH (21:53)
[2019-10-20 23:30] VITALS: BP 116/58
[2019-10-21] MEDS: ARGININE/GLUTAMINE/CALCIUM BMB 1 EACH POWD.PACK GT SCH ×2 (06:25→17:46)
[2019-10-21] MEDS: PROTEIN SUPPLEMENT (PROSTAT) 30 ML LIQUID GT SCH ×3 (06:25→21:59)
[2019-10-21] MEDS: POLYVINYL ALCOHOL OPHT DROPS 15 ML BOTTLE EACHEYE SCH ×3 (06:25→21:59)
[2019-10-21 07:32] VITALS: BP 117/68
[2019-10-21] MEDS: POTASSIUM CHLORIDE 40 MEQ/30 ML LIQUID UDC GT SCH (09:00)
[2019-10-21] MEDS: SODIUM HYPOCHLORITE 0.125% (QUARTER STRENGTH) 473 ML BOTTLE TP SCH ×2 (09:00→21:59)
[2019-10-21] MEDS: NYSTATIN CREAM 30 GM TUBE TP SCH ×2 (09:00→21:59)
[2019-10-21] MEDS: TRIAMCINOLONE ACET 0.1% CREAM 15 GM TUBE TP SCH ×2 (09:00→21:59)
[2019-10-21] MEDS: FUROSEMIDE 20 MG TABLET GT SCH (09:00)
[2019-10-21] MEDS: NORMAL SALINE NASAL 45 ML BOTTLE NS SCH (09:00)
[2019-10-21] MEDS: Z GUARD REMEDY PASTE 57 GM TUBE TOP SCH ×2 (09:00→21:59)
[2019-10-21] MEDS: FAMOTIDINE 20 MG TABLET GT SCH ×2 (09:00→21:59)
[2019-10-21] MEDS: levETIRAcetam 500 MG/5 ML LIQUID UDC GT SCH ×2 (09:00→21:59)
[2019-10-21] MEDS: DIGOXIN 125 MCG TABLET GT SCH (09:00)
[2019-10-21] MEDS: THERAHONEY GEL 1.5 OZ TUBE TOP SCH ×2 (09:00→21:59)
[2019-10-21] MEDS: HYDROGEN PEROXIDE 3% 118 ML BOTTLE TP SCH ×2 (09:08→21:35)
[2019-10-21 20:44] VITALS: BP 127/64
[2019-10-21] MEDS: ACIDOPHILUS/BULGARICUS CHEW TAB GT SCH (21:58)
[2019-10-21] MEDS: ASCORBIC ACID 500 MG TABLET PO SCH (21:59)
[2019-10-22] MEDS: PROTEIN SUPPLEMENT (PROSTAT) 30 ML LIQUID GT SCH ×3 (06:12→22:15)
[2019-10-22] MEDS: POLYVINYL ALCOHOL OPHT DROPS 15 ML BOTTLE EACHEYE SCH ×3 (06:12→22:15)
[2019-10-22] MEDS: ARGININE/GLUTAMINE/CALCIUM BMB 1 EACH POWD.PACK GT SCH ×2 (06:12→17:36)
[2019-10-22 07:27] VITALS: BP 112/60
[2019-10-22] MEDS: levETIRAcetam 500 MG/5 ML LIQUID UDC GT SCH ×2 (08:17→20:52)
[2019-10-22] MEDS: FUROSEMIDE 20 MG TABLET GT SCH (08:18)
[2019-10-22] MEDS: DIGOXIN 125 MCG TABLET GT SCH (08:18)
[2019-10-22] MEDS: POTASSIUM CHLORIDE 40 MEQ/30 ML LIQUID UDC GT SCH (08:19)
[2019-10-22] MEDS: FAMOTIDINE 20 MG TABLET GT SCH ×2 (08:19→20:52)
[2019-10-22] MEDS: NORMAL SALINE NASAL 45 ML BOTTLE NS SCH (08:20)
[2019-10-22] MEDS: THERAHONEY GEL 1.5 OZ TUBE TOP SCH ×2 (08:21→20:55)
[2019-10-22] MEDS: Z GUARD REMEDY PASTE 57 GM TUBE TOP SCH ×2 (08:21→20:55)
[2019-10-22] MEDS: SODIUM HYPOCHLORITE 0.125% (QUARTER STRENGTH) 473 ML BOTTLE TP SCH ×2 (08:21→20:55)
[2019-10-22] MEDS: NYSTATIN CREAM 30 GM TUBE TP SCH ×2 (08:22→20:55)
[2019-10-22] MEDS: TRIAMCINOLONE ACET 0.1% CREAM 15 GM TUBE TP SCH ×2 (08:22→20:55)
[2019-10-22] MEDS: HYDROGEN PEROXIDE 3% 118 ML BOTTLE TP SCH ×2 (09:17→21:07)
[2019-10-22] MEDS: ACETAMINOPHEN 650 MG/20 ML UDC- SA PATIENTS-PAIN ONLY GT PRN (11:22)
[2019-10-22 20:04] VITALS: BP 134/62
[2019-10-22] MEDS: ACIDOPHILUS/BULGARICUS CHEW TAB GT SCH (20:52)
[2019-10-22] MEDS: ASCORBIC ACID 500 MG TABLET PO SCH (20:54)
[2019-10-23] MEDS: POLYVINYL ALCOHOL OPHT DROPS 15 ML BOTTLE EACHEYE SCH ×3 (06:07→22:16)
[2019-10-23] MEDS: ARGININE/GLUTAMINE/CALCIUM BMB 1 EACH POWD.PACK GT SCH ×2 (06:08→17:27)
[2019-10-23] MEDS: PROTEIN SUPPLEMENT (PROSTAT) 30 ML LIQUID GT SCH ×3 (06:08→22:16)
[2019-10-23 07:27] VITALS: BP 115/75
[2019-10-23] MEDS: FUROSEMIDE 20 MG TABLET GT SCH (08:27)
[2019-10-23] MEDS: levETIRAcetam 500 MG/5 ML LIQUID UDC GT SCH ×2 (08:27→20:46)
[2019-10-23] MEDS: NORMAL SALINE NASAL 45 ML BOTTLE NS SCH (08:27)
[2019-10-23] MEDS: DIGOXIN 125 MCG TABLET GT SCH (08:27)
[2019-10-23] MEDS: Z GUARD REMEDY PASTE 57 GM TUBE TOP SCH ×2 (08:27→20:48)
[2019-10-23] MEDS: POTASSIUM CHLORIDE 40 MEQ/30 ML LIQUID UDC GT SCH (08:27)
[2019-10-23] MEDS: FAMOTIDINE 20 MG TABLET GT SCH ×2 (08:27→20:47)
[2019-10-23] MEDS: SODIUM HYPOCHLORITE 0.125% (QUARTER STRENGTH) 473 ML BOTTLE TP SCH ×2 (08:28→20:48)
[2019-10-23] MEDS: TRIAMCINOLONE ACET 0.1% CREAM 15 GM TUBE TP SCH ×2 (08:28→20:48)
[2019-10-23] MEDS: NYSTATIN CREAM 30 GM TUBE TP SCH ×2 (08:28→20:48)
[2019-10-23] MEDS: THERAHONEY GEL 1.5 OZ TUBE TOP SCH ×2 (08:28→20:48)
[2019-10-23] MEDS: HYDROGEN PEROXIDE 3% 118 ML BOTTLE TP SCH ×2 (09:28→21:54)
[2019-10-23 19:57] VITALS: BP 105/71
[2019-10-23] MEDS: ACIDOPHILUS/BULGARICUS CHEW TAB GT SCH (20:46)
[2019-10-23] MEDS: ASCORBIC ACID 500 MG TABLET PO SCH (20:47)
[2019-10-24] MEDS: POLYVINYL ALCOHOL OPHT DROPS 15 ML BOTTLE EACHEYE SCH ×3 (05:59→22:05)
[2019-10-24] MEDS: PROTEIN SUPPLEMENT (PROSTAT) 30 ML LIQUID GT SCH ×3 (05:59→22:05)
[2019-10-24] MEDS: ARGININE/GLUTAMINE/CALCIUM BMB 1 EACH POWD.PACK GT SCH ×2 (05:59→17:19)
[2019-10-24 07:44] VITALS: BP 137/65
[2019-10-24] MEDS: levETIRAcetam 500 MG/5 ML LIQUID UDC GT SCH ×2 (08:35→20:57)
[2019-10-24] MEDS: Z GUARD REMEDY PASTE 57 GM TUBE TOP SCH ×2 (08:36→20:57)
[2019-10-24] MEDS: POTASSIUM CHLORIDE 40 MEQ/30 ML LIQUID UDC GT SCH (08:36)
[2019-10-24] MEDS: DIGOXIN 125 MCG TABLET GT SCH (08:36)
[2019-10-24] MEDS: FAMOTIDINE 20 MG TABLET GT SCH ×2 (08:36→20:57)
[2019-10-24] MEDS: NORMAL SALINE NASAL 45 ML BOTTLE NS SCH (08:36)
[2019-10-24] MEDS: FUROSEMIDE 20 MG TABLET GT SCH (08:36)
[2019-10-24] MEDS: NYSTATIN CREAM 30 GM TUBE TP SCH ×2 (08:37→20:57)
[2019-10-24] MEDS: SODIUM HYPOCHLORITE 0.125% (QUARTER STRENGTH) 473 ML BOTTLE TP SCH ×2 (08:37→20:57)
[2019-10-24] MEDS: TRIAMCINOLONE ACET 0.1% CREAM 15 GM TUBE TP SCH ×2 (08:37→20:57)
[2019-10-24] MEDS: THERAHONEY GEL 1.5 OZ TUBE TOP SCH ×2 (08:37→20:57)
[2019-10-24] MEDS: HYDROGEN PEROXIDE 3% 118 ML BOTTLE TP SCH ×2 (09:35→21:50)
--- NOTE | 2019-10-24 17:57 | NUR ---
Informed family member DESIREE of COVID 19 possible exposure and testing plan with good understanding. Addendum: 10/24/19 at 1801 by TRACI GEORGES RN Correction to above note; Informed family member Sheeba of COVID 19 possible exposure and testing plan with good understanding.
[2019-10-24 20:00] VITALS: BP 125/44
[2019-10-24] MEDS: ASCORBIC ACID 500 MG TABLET PO SCH (20:57)
[2019-10-24] MEDS: ACIDOPHILUS/BULGARICUS CHEW TAB GT SCH (20:57)
--- NOTE | 2019-10-25 02:00 | NUR ---
New order for COVID-19 test per [facility] COVID-19 requirement.
--- NOTE | 2019-10-25 02:54 | NUR ---
Seen with new order for Zinc Sulfate 220mg via Gt daily X 2 weeks for wound healing, noted and carried out.
[2019-10-25] MEDS: POLYVINYL ALCOHOL OPHT DROPS 15 ML BOTTLE EACHEYE SCH ×3 (05:43→21:13)
[2019-10-25] MEDS: PROTEIN SUPPLEMENT (PROSTAT) 30 ML LIQUID GT SCH ×3 (05:43→21:14)
[2019-10-25] MEDS: ARGININE/GLUTAMINE/CALCIUM BMB 1 EACH POWD.PACK GT SCH ×2 (05:43→17:12)
[2019-10-25 08:02] VITALS: BP 116/56
[2019-10-25] MEDS: FAMOTIDINE 20 MG TABLET GT SCH ×2 (08:47→20:48)
[2019-10-25] MEDS: ZINC SULFATE 220 MG CAPSULE GT SCH (08:47)
[2019-10-25] MEDS: Z GUARD REMEDY PASTE 57 GM TUBE TOP SCH ×2 (08:47→20:48)
[2019-10-25] MEDS: levETIRAcetam 500 MG/5 ML LIQUID UDC GT SCH ×2 (08:47→20:48)
[2019-10-25] MEDS: FUROSEMIDE 20 MG TABLET GT SCH (08:47)
[2019-10-25] MEDS: DIGOXIN 125 MCG TABLET GT SCH (08:47)
[2019-10-25] MEDS: POTASSIUM CHLORIDE 40 MEQ/30 ML LIQUID UDC GT SCH (08:47)
[2019-10-25] MEDS: NORMAL SALINE NASAL 45 ML BOTTLE NS SCH (08:47)
[2019-10-25] MEDS: SODIUM HYPOCHLORITE 0.125% (QUARTER STRENGTH) 473 ML BOTTLE TP SCH ×2 (08:48→20:48)
[2019-10-25] MEDS: THERAHONEY GEL 1.5 OZ TUBE TOP SCH ×2 (08:48→20:48)
[2019-10-25] MEDS: NYSTATIN CREAM 30 GM TUBE TP SCH ×2 (08:48→20:49)
[2019-10-25] MEDS: TRIAMCINOLONE ACET 0.1% CREAM 15 GM TUBE TP SCH ×2 (08:48→20:49)
[2019-10-25] MEDS: HYDROGEN PEROXIDE 3% 118 ML BOTTLE TP SCH ×2 (09:00→21:21)
--- NOTE | 2019-10-25 15:35 | NUR ---
Per Rosi Black NP patient has osteomyelitis, and requested ID to be notified, Antionette Colbert from ID department notified.
[2019-10-25] MEDS: GLUCERNA 1.2 1000ML LIQUID GT PRN (17:12)
--- NOTE | 2019-10-25 18:42 | NUR ---
Attempted to call patient's family member for consent, but incorrect number listed. Nobody with that name is associated with the number. Charge nurse aware.
--- NOTE | 2019-10-25 18:44 | NUR ---
Seen by RUPERT Sherman. New orders carried out. Charge nurse aware.
[2019-10-25 20:05] LABS: BASOPHILS % (AUTO) 0.6 % (0.0-2.0); EOSINOPHILS # (AUTO) 0.1 K/uL (0.0-0.7); EOSINOPHILS % (AUTO) 1.9 % (0.0-7.0); HEMATOCRIT 35.6 % (31.2-41.9); HEMOGLOBIN 11.7 g/dL (10.9-14.3); LYMPHOCYTES # (AUTO) 1.5 K/uL (20.0-40.0); LYMPHOCYTES % (AUTO) 28.1 % (20.5-51.5); MEAN CORPUSCULAR HEMOGLOBIN 30.8 uug (24.7-32.8); MEAN CORPUSCULAR HGB CONC 33 g/dL (32.3-35.6); MEAN CORPUSCULAR VOLUME 93.6 fL (75.5-95.3); MONOCYTES # (AUTO) 0.5 K/uL (2.0-10.0); MONOCYTES % (AUTO) 9.8 % (0.0-11.0); NEUTROPHILS # (AUTO) 3.1 K/uL (1.8-8.9); NEUTROPHILS % (AUTO) 59.6 % (38.5-71.5); PLATELET COUNT (AUTO) 116 K/uL (179-408); WHITE BLOOD COUNT (AUTO) 5.2 K/uL (3.8-11.8)
[2019-10-25 20:18] LABS: BILIRUBIN,TOTAL 0.4 mg/dL (0.2-1.0); CREATININE 0.6 mg/dL (0.6-1.3); POTASSIUM 3.9 mmol/L (3.5-5.1); TOTAL PROTEIN, SERUM 8.1 g/dL (6.4-8.2)
[2019-10-25 20:30] VITALS: BP 128/66
--- NOTE | 2019-10-25 20:30 | NUR ---
[facility] pharmacisrrosanna called and stated vancomycin iv&cefriaxone iv not covered by insurance, dejon, nurse distribution manager notified and stated get medication from [facility].
[2019-10-25] MEDS: ACIDOPHILUS/BULGARICUS CHEW TAB GT SCH (20:48)
[2019-10-25] MEDS: ASCORBIC ACID 500 MG TABLET PO SCH (20:48)
--- NOTE | 2019-10-25 21:30 | NUR ---
called after hour pharmacist kelly, vancomycin 1500mg x 1 ordered.
--- NOTE | 2019-10-25 23:00 | NUR ---
ceftriaxone 2gm iv started, no adverse reaction noted, helock on right upper arm patent.
--- NOTE | 2019-10-26 00:30 | NUR ---
vancomycin 1500mg iv started for osteomyelitis, no adverse reaction noted, no respiratory distress noted.
[2019-10-26] MEDS: PROTEIN SUPPLEMENT (PROSTAT) 30 ML LIQUID GT SCH ×3 (05:21→21:04)
[2019-10-26] MEDS: POLYVINYL ALCOHOL OPHT DROPS 15 ML BOTTLE EACHEYE SCH ×3 (05:21→21:04)
[2019-10-26] MEDS: ARGININE/GLUTAMINE/CALCIUM BMB 1 EACH POWD.PACK GT SCH ×2 (05:21→17:06)
[2019-10-26 07:47] VITALS: BP 120/69
[2019-10-26 08:48] LABS: CARBON DIOXIDE 35 mmol/L (21-32); CHLORIDE 106 mmol/L (98-107); CREATININE 0.4 mg/dL (0.6-1.3); GLUCOSE 112 mg/dL (74-106); POTASSIUM 4.1 mmol/L (3.5-5.1); UREA NITROGEN, BLOOD 24 mg/dL (7-18)
[2019-10-26] MEDS: HYDROGEN PEROXIDE 3% 118 ML BOTTLE TP SCH ×2 (09:00→21:44)
[2019-10-26] MEDS: POTASSIUM CHLORIDE 40 MEQ/30 ML LIQUID UDC GT SCH (09:01)
[2019-10-26] MEDS: DIGOXIN 125 MCG TABLET GT SCH (09:01)
[2019-10-26] MEDS: FAMOTIDINE 20 MG TABLET GT SCH ×2 (09:01→21:03)
[2019-10-26] MEDS: NORMAL SALINE NASAL 45 ML BOTTLE NS SCH (09:01)
[2019-10-26] MEDS: ZINC SULFATE 220 MG CAPSULE GT SCH (09:01)
[2019-10-26] MEDS: levETIRAcetam 500 MG/5 ML LIQUID UDC GT SCH ×2 (09:01→21:03)
[2019-10-26] MEDS: FUROSEMIDE 20 MG TABLET GT SCH (09:01)
[2019-10-26] MEDS: THERAHONEY GEL 1.5 OZ TUBE TOP SCH ×2 (09:01→21:03)
[2019-10-26] MEDS: SODIUM HYPOCHLORITE 0.125% (QUARTER STRENGTH) 473 ML BOTTLE TP SCH ×2 (09:01→21:03)
[2019-10-26] MEDS: Z GUARD REMEDY PASTE 57 GM TUBE TOP SCH ×2 (09:01→21:03)
[2019-10-26] MEDS: NYSTATIN CREAM 30 GM TUBE TP SCH ×2 (09:02→21:04)
[2019-10-26] MEDS: TRIAMCINOLONE ACET 0.1% CREAM 15 GM TUBE TP SCH ×2 (09:02→21:04)
--- NOTE | 2019-10-26 11:47 | NUR ---
Midline inserted by Raeann Ford,procedure tolerated well,no bleeding noted,new orders for flushing and dressing change carried out.
--- NOTE | 2019-10-26 16:44 | NUR ---
Seen and examined by Antionette Colbert with new orders noted and carried out.
[2019-10-26] MEDS: GLUCERNA 1.2 1000ML LIQUID GT PRN (18:16)
--- NOTE | 2019-10-26 18:59 | NUR ---
Laboratory call with results,Covid 19 negative.
[2019-10-26 20:06] VITALS: BP 113/54
[2019-10-26] MEDS: ACIDOPHILUS/BULGARICUS CHEW TAB GT SCH (21:03)
[2019-10-26] MEDS: ASCORBIC ACID 500 MG TABLET PO SCH (21:03)
[2019-10-26] MEDS: CEFTRIAXONE 2 G in IV DEXTROSE 5% 100 ML IV SCH (23:05)
[2019-10-27] MEDS: ARGININE/GLUTAMINE/CALCIUM BMB 1 EACH POWD.PACK GT SCH ×2 (05:01→17:03)
[2019-10-27] MEDS: PROTEIN SUPPLEMENT (PROSTAT) 30 ML LIQUID GT SCH ×3 (05:01→21:00)
[2019-10-27] MEDS: POLYVINYL ALCOHOL OPHT DROPS 15 ML BOTTLE EACHEYE SCH ×3 (05:01→21:00)
[2019-10-27 07:04] LABS: CREATININE 0.6 mg/dL (0.6-1.3); POTASSIUM 3.7 mmol/L (3.5-5.1)
[2019-10-27 07:32] VITALS: BP 100/65
[2019-10-27] MEDS: NORMAL SALINE NASAL 45 ML BOTTLE NS SCH (08:36)
[2019-10-27] MEDS: FAMOTIDINE 20 MG TABLET GT SCH ×2 (08:36→21:00)
[2019-10-27] MEDS: DIGOXIN 125 MCG TABLET GT SCH (08:36)
[2019-10-27] MEDS: POTASSIUM CHLORIDE 40 MEQ/30 ML LIQUID UDC GT SCH (08:36)
[2019-10-27] MEDS: ZINC SULFATE 220 MG CAPSULE GT SCH (08:36)
[2019-10-27] MEDS: levETIRAcetam 500 MG/5 ML LIQUID UDC GT SCH ×2 (08:36→21:00)
[2019-10-27] MEDS: FUROSEMIDE 20 MG TABLET GT SCH (08:36)
[2019-10-27] MEDS: Z GUARD REMEDY PASTE 57 GM TUBE TOP SCH ×2 (08:36→21:00)
[2019-10-27] MEDS: THERAHONEY GEL 1.5 OZ TUBE TOP SCH ×2 (08:37→21:00)
[2019-10-27] MEDS: TRIAMCINOLONE ACET 0.1% CREAM 15 GM TUBE TP SCH ×2 (08:37→21:00)
[2019-10-27] MEDS: SODIUM HYPOCHLORITE 0.125% (QUARTER STRENGTH) 473 ML BOTTLE TP SCH ×2 (08:37→21:00)
[2019-10-27] MEDS: NYSTATIN CREAM 30 GM TUBE TP SCH ×2 (08:37→21:00)
[2019-10-27] MEDS: HYDROGEN PEROXIDE 3% 118 ML BOTTLE TP SCH ×2 (10:00→19:26)
--- NOTE | 2019-10-27 15:30 | NUR ---
New orders from the pharmacist to give Vancomycin 1500 mg at 1500,then start vancomycin 1250 mg every 18 hrs,start at 0900 am,no adverse reaction noted,given for osteomilitis.
[2019-10-27] MEDS: GLUCERNA 1.2 1000ML LIQUID GT PRN (17:03)
--- NOTE | 2019-10-27 17:44 | NUR ---
Spoke to Dr Huerta regarding for The MRI procedure Pt has to be transfer to [facility] with orders to cancel the MRI for now.orders carried out.
--- NOTE | 2019-10-27 19:00 | NUR ---
Pt's daughter Sheeba aware of the new orders ,plan of care,and Covid 19 results,negative .She understand plan of care.
[2019-10-27 20:31] VITALS: BP 111/66
[2019-10-27] MEDS: ACIDOPHILUS/BULGARICUS CHEW TAB GT SCH (21:00)
[2019-10-27] MEDS: ASCORBIC ACID 500 MG TABLET PO SCH (21:00)
[2019-10-27] MEDS: CEFTRIAXONE 2 G in IV DEXTROSE 5% 100 ML IV SCH (23:42)
--- NOTE | 2019-10-28 02:11 | NUR ---
Afebrile, on Vancomycin and Rocephin IV for sacral wound osteomylitis, no adverse reactions noted. Left upper midline is intact and patent. wound treatment done as ordered, turned and repositioned, kept clean and comfortable.
[2019-10-28] MEDS: PROTEIN SUPPLEMENT (PROSTAT) 30 ML LIQUID GT SCH ×3 (05:05→21:22)
[2019-10-28] MEDS: ARGININE/GLUTAMINE/CALCIUM BMB 1 EACH POWD.PACK GT SCH ×2 (05:05→17:54)
[2019-10-28] MEDS: POLYVINYL ALCOHOL OPHT DROPS 15 ML BOTTLE EACHEYE SCH ×3 (05:05→21:22)
[2019-10-28 06:37] LABS: BASOPHILS % (AUTO) 0.6 % (0.0-2.0); EOSINOPHILS # (AUTO) 0.1 K/uL (0.0-0.7); EOSINOPHILS % (AUTO) 3.4 % (0.0-7.0); HEMATOCRIT 37.7 % (31.2-41.9); HEMOGLOBIN 12.3 g/dL (10.9-14.3); LYMPHOCYTES # (AUTO) 1.2 K/uL (20.0-40.0); LYMPHOCYTES % (AUTO) 33.8 % (20.5-51.5); MEAN CORPUSCULAR HEMOGLOBIN 30.7 uug (24.7-32.8); MEAN CORPUSCULAR HGB CONC 33 g/dL (32.3-35.6); MEAN CORPUSCULAR VOLUME 93.7 fL (75.5-95.3); MONOCYTES # (AUTO) 0.3 K/uL (2.0-10.0); MONOCYTES % (AUTO) 10.3 % (0.0-11.0); NEUTROPHILS # (AUTO) 1.8 K/uL (1.8-8.9); NEUTROPHILS % (AUTO) 51.9 % (38.5-71.5); PLATELET COUNT (AUTO) 110 K/uL (179-408); RED BLOOD CELL COUNT(AUTO) 4.02 MIL/uL (3.63-4.92); WHITE BLOOD COUNT (AUTO) 3.4 K/uL (3.8-11.8)
[2019-10-28 06:59] LABS: BILIRUBIN,TOTAL 0.3 mg/dL (0.2-1.0); CREATININE 0.7 mg/dL (0.6-1.3); POTASSIUM 3.7 mmol/L (3.5-5.1)
[2019-10-28 07:41] VITALS: BP 108/69
[2019-10-28] MEDS: NORMAL SALINE NASAL 45 ML BOTTLE NS SCH (08:48)
[2019-10-28] MEDS: levETIRAcetam 500 MG/5 ML LIQUID UDC GT SCH ×2 (08:48→21:20)
[2019-10-28] MEDS: POTASSIUM CHLORIDE 40 MEQ/30 ML LIQUID UDC GT SCH (08:48)
[2019-10-28] MEDS: FUROSEMIDE 20 MG TABLET GT SCH (08:48)
[2019-10-28] MEDS: FAMOTIDINE 20 MG TABLET GT SCH ×2 (08:48→21:21)
[2019-10-28] MEDS: DIGOXIN 125 MCG TABLET GT SCH (08:48)
[2019-10-28] MEDS: Z GUARD REMEDY PASTE 57 GM TUBE TOP SCH ×2 (08:48→21:22)
[2019-10-28] MEDS: ZINC SULFATE 220 MG CAPSULE GT SCH (08:48)
[2019-10-28] MEDS: SODIUM HYPOCHLORITE 0.125% (QUARTER STRENGTH) 473 ML BOTTLE TP SCH ×2 (08:49→21:00)
[2019-10-28] MEDS: TRIAMCINOLONE ACET 0.1% CREAM 15 GM TUBE TP SCH ×2 (08:49→21:00)
[2019-10-28] MEDS: NYSTATIN CREAM 30 GM TUBE TP SCH ×2 (08:49→21:22)
[2019-10-28] MEDS: THERAHONEY GEL 1.5 OZ TUBE TOP SCH ×2 (08:49→21:00)
[2019-10-28] MEDS: VANCOMYCIN IV 1,250 MG in IV DEXTROSE 5% 250 ML IV SCH (09:20)
[2019-10-28] MEDS: HYDROGEN PEROXIDE 3% 118 ML BOTTLE TP SCH ×2 (09:33→21:20)
[2019-10-28 20:41] VITALS: BP 116/76
[2019-10-28] MEDS: ASCORBIC ACID 500 MG TABLET PO SCH (21:20)
[2019-10-28] MEDS: ACIDOPHILUS/BULGARICUS CHEW TAB GT SCH (21:20)
[2019-10-28] MEDS: CEFTRIAXONE 2 G in IV DEXTROSE 5% 100 ML IV SCH (22:57)
[2019-10-29] MEDS: VANCOMYCIN IV 1,250 MG in IV DEXTROSE 5% 250 ML IV SCH (03:01)
--- NOTE | 2019-10-29 03:01 | NUR ---
Vancomycin Trough result is 11.1, [id number] IV given as ordered, no adverse reactions noted. Will continue monitor.
[2019-10-29] MEDS: ARGININE/GLUTAMINE/CALCIUM BMB 1 EACH POWD.PACK GT SCH ×2 (05:40→17:04)
[2019-10-29] MEDS: POLYVINYL ALCOHOL OPHT DROPS 15 ML BOTTLE EACHEYE SCH ×3 (05:40→22:22)
[2019-10-29] MEDS: PROTEIN SUPPLEMENT (PROSTAT) 30 ML LIQUID GT SCH ×3 (05:40→22:22)
[2019-10-29] MEDS: HYDROGEN PEROXIDE 3% 118 ML BOTTLE TP SCH ×2 (07:26→21:03)
[2019-10-29 07:29] LABS: EOSINOPHILS # (AUTO) 0.1 K/uL (0.0-0.7); EOSINOPHILS % (AUTO) 3.3 % (0.0-7.0); HEMATOCRIT 35.1 % (31.2-41.9); HEMOGLOBIN 11.7 g/dL (10.9-14.3); LYMPHOCYTES # (AUTO) 1.2 K/uL (20.0-40.0); LYMPHOCYTES % (AUTO) 31.8 % (20.5-51.5); MEAN CORPUSCULAR HEMOGLOBIN 30.9 uug (24.7-32.8); MEAN CORPUSCULAR HGB CONC 33 g/dL (32.3-35.6); MEAN CORPUSCULAR VOLUME 92.7 fL (75.5-95.3); MONOCYTES # (AUTO) 0.5 K/uL (2.0-10.0); MONOCYTES % (AUTO) 12.6 % (0.0-11.0); NEUTROPHILS % (AUTO) 51.3 % (38.5-71.5); PLATELET COUNT (AUTO) 113 K/uL (179-408); RED BLOOD CELL COUNT(AUTO) 3.79 MIL/uL (3.63-4.92); WHITE BLOOD COUNT (AUTO) 3.8 K/uL (3.8-11.8)
[2019-10-29 07:40] LABS: CREATININE 0.6 mg/dL (0.6-1.3); MAGNESIUM 2.4 mg/dL (1.8-2.4); PHOSPHOROUS 3.6 mg/dL (2.5-4.9); POTASSIUM 3.9 mmol/L (3.5-5.1)
[2019-10-29 07:42] VITALS: BP 112/64
[2019-10-29] MEDS: levETIRAcetam 500 MG/5 ML LIQUID UDC GT SCH ×2 (08:40→20:08)
[2019-10-29] MEDS: FUROSEMIDE 20 MG TABLET GT SCH (08:41)
[2019-10-29] MEDS: FAMOTIDINE 20 MG TABLET GT SCH ×2 (08:41→20:08)
[2019-10-29] MEDS: ZINC SULFATE 220 MG CAPSULE GT SCH (08:41)
[2019-10-29] MEDS: DIGOXIN 125 MCG TABLET GT SCH (08:41)
[2019-10-29] MEDS: THERAHONEY GEL 1.5 OZ TUBE TOP SCH ×2 (08:42→20:09)
[2019-10-29] MEDS: NORMAL SALINE NASAL 45 ML BOTTLE NS SCH (08:42)
[2019-10-29] MEDS: SODIUM HYPOCHLORITE 0.125% (QUARTER STRENGTH) 473 ML BOTTLE TP SCH ×2 (08:42→20:09)
[2019-10-29] MEDS: TRIAMCINOLONE ACET 0.1% CREAM 15 GM TUBE TP SCH ×2 (08:42→20:09)
[2019-10-29] MEDS: Z GUARD REMEDY PASTE 57 GM TUBE TOP SCH ×2 (08:42→20:09)
[2019-10-29] MEDS: NYSTATIN CREAM 30 GM TUBE TP SCH ×2 (08:43→20:09)
[2019-10-29] MEDS: POTASSIUM CHLORIDE 40 MEQ/30 ML LIQUID UDC GT SCH (08:50)
[2019-10-29] MEDS: VANCOMYCIN IV 1,000 MG in IV DEXTROSE 5% 250 ML IV SCH (15:49)
--- NOTE | 2019-10-29 16:00 | NUR ---
COntinue on Ivatb for osteomilitis,no adverse reaction noted,midline on the R upper arm intact.
--- NOTE | 2019-10-29 17:10 | NUR ---
INTERDISCIPLINARY PLAN OF CARE CONFERENCE was held today. Patient's daughter was not available to participate in the meeting. Dr. Murguia and the Interdisciplinary team reviewed the current plan of care in detail. RN reported on patient's current medical condition, and ongoing treatment. See RN IDT conference notes. See also all other disciplines IDT notes and physician's progress notes for additional details.
[2019-10-29] MEDS: ASCORBIC ACID 500 MG TABLET PO SCH (20:08)
[2019-10-29] MEDS: ACIDOPHILUS/BULGARICUS CHEW TAB GT SCH (20:08)
[2019-10-29 20:23] VITALS: BP 117/76
[2019-10-29] MEDS: CEFTRIAXONE 2 G in IV DEXTROSE 5% 100 ML IV SCH (22:47)
[2019-10-30] MEDS: GLUCERNA 1.2 1000ML LIQUID GT PRN (00:30)
--- NOTE | 2019-10-30 02:43 | NUR ---
PT RECEIVED ON [id number] WITH ORDERED SETTINGS AND FAUSTINA WELL. NO SOB NOTED. ALARMS ON AND AUDIBLE. TRACH TUBE IS IN PLACE AND SECURED. PATIENT VENTILATOR SWITCHED OUT DUE TO OLD VENTILATOR PERSISTENT WITH "DEVICE ALERT" LIGHT. VENTILATOR MARKED AND NOTED.
[2019-10-30] MEDS: VANCOMYCIN IV 1,000 MG in IV DEXTROSE 5% 250 ML IV SCH ×2 (02:52→14:40)
--- NOTE | 2019-10-30 03:50 | NUR ---
continue on rocephin 2 gm iv and vancomycin 1000mg iv for osteomyelitis at sacral wound, no adverse reaction noted,right upper arm mid line patent, flushed per protocol.
--- NOTE | 2019-10-30 03:52 | NUR ---
sacral wound cuture obtained and send to lab.
[2019-10-30] MEDS: POLYVINYL ALCOHOL OPHT DROPS 15 ML BOTTLE EACHEYE SCH ×3 (05:25→21:26)
[2019-10-30] MEDS: ARGININE/GLUTAMINE/CALCIUM BMB 1 EACH POWD.PACK GT SCH ×2 (05:25→17:06)
[2019-10-30] MEDS: PROTEIN SUPPLEMENT (PROSTAT) 30 ML LIQUID GT SCH ×3 (05:26→21:26)
[2019-10-30 06:58] LABS: CREATININE 0.6 mg/dL (0.6-1.3); POTASSIUM 3.5 mmol/L (3.5-5.1)
[2019-10-30 07:48] VITALS: BP 119/72
[2019-10-30] MEDS: levETIRAcetam 500 MG/5 ML LIQUID UDC GT SCH ×2 (08:21→21:24)
[2019-10-30] MEDS: FAMOTIDINE 20 MG TABLET GT SCH ×2 (08:22→21:25)
[2019-10-30] MEDS: FUROSEMIDE 20 MG TABLET GT SCH (08:22)
[2019-10-30] MEDS: DIGOXIN 125 MCG TABLET GT SCH (08:22)
[2019-10-30] MEDS: NORMAL SALINE NASAL 45 ML BOTTLE NS SCH (08:23)
[2019-10-30] MEDS: POTASSIUM CHLORIDE 40 MEQ/30 ML LIQUID UDC GT SCH (08:23)
[2019-10-30] MEDS: ZINC SULFATE 220 MG CAPSULE GT SCH (08:23)
[2019-10-30] MEDS: TRIAMCINOLONE ACET 0.1% CREAM 15 GM TUBE TP SCH ×2 (08:24→21:26)
[2019-10-30] MEDS: Z GUARD REMEDY PASTE 57 GM TUBE TOP SCH ×2 (08:24→21:25)
[2019-10-30] MEDS: SODIUM HYPOCHLORITE 0.125% (QUARTER STRENGTH) 473 ML BOTTLE TP SCH ×2 (08:24→21:26)
[2019-10-30] MEDS: THERAHONEY GEL 1.5 OZ TUBE TOP SCH ×2 (08:24→21:25)
[2019-10-30] MEDS: NYSTATIN CREAM 30 GM TUBE TP SCH ×2 (08:25→21:26)
[2019-10-30] MEDS: HYDROGEN PEROXIDE 3% 118 ML BOTTLE TP SCH ×2 (10:00→19:22)
--- NOTE | 2019-10-30 16:52 | NUR ---
New order for COVID-19 test per [facility] COVID-19 requirement.
--- NOTE | 2019-10-30 16:55 | NUR ---
Sheeba dominique's daughter was informed about the new orders to check for Covid 19 test # [address] [facility] requirement.
--- NOTE | 2019-10-30 17:32 | NUR ---
Seen and examined by Dr Murguia no new orders,Seen and examined by Antionette EMERY.new orders noted.
--- NOTE | 2019-10-30 19:00 | NUR ---
Continue on Ivatb,for osteomilitis ,no adverse reaction noted,midline on the r upper arm intact.
[2019-10-30 20:06] VITALS: BP 120/67
[2019-10-30] MEDS: ACIDOPHILUS/BULGARICUS CHEW TAB GT SCH (21:24)
[2019-10-30] MEDS: ASCORBIC ACID 500 MG TABLET PO SCH (21:25)
[2019-10-30] MEDS: CEFTRIAXONE 2 G in IV DEXTROSE 5% 100 ML IV SCH (22:57)
[2019-10-31] MEDS: VANCOMYCIN IV 1,000 MG in IV DEXTROSE 5% 250 ML IV SCH ×2 (03:00→15:09)
[2019-10-31] MEDS: GLUCERNA 1.2 1000ML LIQUID GT PRN (04:00)
[2019-10-31] MEDS: PROTEIN SUPPLEMENT (PROSTAT) 30 ML LIQUID GT SCH ×3 (05:38→21:11)
[2019-10-31] MEDS: POLYVINYL ALCOHOL OPHT DROPS 15 ML BOTTLE EACHEYE SCH ×3 (05:38→21:11)
[2019-10-31] MEDS: ARGININE/GLUTAMINE/CALCIUM BMB 1 EACH POWD.PACK GT SCH ×2 (05:38→17:22)
[2019-10-31 06:04] LABS: BASOPHILS % (AUTO) 0.8 % (0.0-2.0); EOSINOPHILS # (AUTO) 0.1 K/uL (0.0-0.7); EOSINOPHILS % (AUTO) 2.8 % (0.0-7.0); HEMATOCRIT 35.5 % (31.2-41.9); HEMOGLOBIN 11.6 g/dL (10.9-14.3); LYMPHOCYTES # (AUTO) 1.4 K/uL (20.0-40.0); LYMPHOCYTES % (AUTO) 30.6 % (20.5-51.5); MEAN CORPUSCULAR HEMOGLOBIN 30.4 uug (24.7-32.8); MEAN CORPUSCULAR HGB CONC 33 g/dL (32.3-35.6); MEAN CORPUSCULAR VOLUME 92.8 fL (75.5-95.3); MONOCYTES # (AUTO) 0.5 K/uL (2.0-10.0); MONOCYTES % (AUTO) 11.2 % (0.0-11.0); NEUTROPHILS # (AUTO) 2.4 K/uL (1.8-8.9); NEUTROPHILS % (AUTO) 54.6 % (38.5-71.5); PLATELET COUNT (AUTO) 116 K/uL (179-408); RED BLOOD CELL COUNT(AUTO) 3.82 MIL/uL (3.63-4.92); WHITE BLOOD COUNT (AUTO) 4.4 K/uL (3.8-11.8)
[2019-10-31 06:14] LABS: BILIRUBIN,TOTAL 0.2 mg/dL (0.2-1.0); CREATININE 0.7 mg/dL (0.6-1.3); POTASSIUM 3.8 mmol/L (3.5-5.1); TOTAL PROTEIN, SERUM 7.7 g/dL (6.4-8.2)
[2019-10-31 08:10] VITALS: BP 111/68
[2019-10-31] MEDS: levETIRAcetam 500 MG/5 ML LIQUID UDC GT SCH ×2 (08:31→21:09)
[2019-10-31] MEDS: FUROSEMIDE 20 MG TABLET GT SCH (08:32)
[2019-10-31] MEDS: POTASSIUM CHLORIDE 40 MEQ/30 ML LIQUID UDC GT SCH (08:32)
[2019-10-31] MEDS: FAMOTIDINE 20 MG TABLET GT SCH ×2 (08:32→21:09)
[2019-10-31] MEDS: DIGOXIN 125 MCG TABLET GT SCH (08:32)
[2019-10-31] MEDS: ZINC SULFATE 220 MG CAPSULE GT SCH (08:33)
[2019-10-31] MEDS: NORMAL SALINE NASAL 45 ML BOTTLE NS SCH (08:33)
[2019-10-31] MEDS: SODIUM HYPOCHLORITE 0.125% (QUARTER STRENGTH) 473 ML BOTTLE TP SCH ×2 (08:34→21:11)
[2019-10-31] MEDS: Z GUARD REMEDY PASTE 57 GM TUBE TOP SCH ×2 (08:34→21:11)
[2019-10-31] MEDS: THERAHONEY GEL 1.5 OZ TUBE TOP SCH ×2 (08:34→21:11)
[2019-10-31] MEDS: NYSTATIN CREAM 30 GM TUBE TP SCH ×2 (08:35→21:11)
[2019-10-31] MEDS: TRIAMCINOLONE ACET 0.1% CREAM 15 GM TUBE TP SCH ×2 (08:35→21:11)
[2019-10-31] MEDS: HYDROGEN PEROXIDE 3% 118 ML BOTTLE TP SCH ×2 (09:13→21:29)
--- NOTE | 2019-10-31 15:01 | NUR ---
VANCO TROUGH 13.7 AND PER [facility] KISHOR TO CONTINUE SAME SOSE.
--- NOTE | 2019-10-31 18:38 | NUR ---
PT'S DTR. AWARE AND IN AGREEMENT RE: COVID 19 TEST TOMORROW FOR PT.
[2019-10-31 20:00] VITALS: BP 136/73
[2019-10-31] MEDS: ACIDOPHILUS/BULGARICUS CHEW TAB GT SCH (21:08)
[2019-10-31] MEDS: ASCORBIC ACID 500 MG TABLET PO SCH (21:10)
--- NOTE | 2019-10-31 21:11 | NUR ---
HAJA SHELDON N.P. WAS IN, NO NEW ORDERS. Addendum: 11/01/19 at 0218 by JODY OTOOLE RN NOTIFIED VANCOMYCIN TROUGH 13.7.
[2019-10-31] MEDS: CEFTRIAXONE 2 G in IV DEXTROSE 5% 100 ML IV SCH (22:51)
[2019-11-01] MEDS: VANCOMYCIN IV 1,000 MG in IV DEXTROSE 5% 250 ML IV SCH ×2 (02:57→15:16)
[2019-11-01] MEDS: POLYVINYL ALCOHOL OPHT DROPS 15 ML BOTTLE EACHEYE SCH ×3 (05:43→22:33)
[2019-11-01] MEDS: PROTEIN SUPPLEMENT (PROSTAT) 30 ML LIQUID GT SCH ×3 (05:43→22:33)
[2019-11-01] MEDS: ARGININE/GLUTAMINE/CALCIUM BMB 1 EACH POWD.PACK GT SCH ×2 (05:43→17:28)
[2019-11-01 06:00] LABS: CREATININE 0.6 mg/dL (0.6-1.3); POTASSIUM 3.4 mmol/L (3.5-5.1)
[2019-11-01 08:09] VITALS: BP 128/65
[2019-11-01] MEDS: levETIRAcetam 500 MG/5 ML LIQUID UDC GT SCH ×2 (08:14→21:00)
[2019-11-01] MEDS: FAMOTIDINE 20 MG TABLET GT SCH ×2 (08:15→21:00)
[2019-11-01] MEDS: FUROSEMIDE 20 MG TABLET GT SCH (08:15)
[2019-11-01] MEDS: DIGOXIN 125 MCG TABLET GT SCH (08:15)
[2019-11-01] MEDS: ZINC SULFATE 220 MG CAPSULE GT SCH (08:15)
[2019-11-01] MEDS: POTASSIUM CHLORIDE 40 MEQ/30 ML LIQUID UDC GT SCH (08:15)
[2019-11-01] MEDS: Z GUARD REMEDY PASTE 57 GM TUBE TOP SCH ×2 (08:16→21:00)
[2019-11-01] MEDS: NORMAL SALINE NASAL 45 ML BOTTLE NS SCH (08:16)
[2019-11-01] MEDS: THERAHONEY GEL 1.5 OZ TUBE TOP SCH ×2 (08:16→21:00)
[2019-11-01] MEDS: SODIUM HYPOCHLORITE 0.125% (QUARTER STRENGTH) 473 ML BOTTLE TP SCH ×2 (08:17→21:00)
[2019-11-01] MEDS: TRIAMCINOLONE ACET 0.1% CREAM 15 GM TUBE TP SCH ×2 (08:17→21:00)
[2019-11-01] MEDS: NYSTATIN CREAM 30 GM TUBE TP SCH ×2 (08:17→21:00)
[2019-11-01] MEDS: HYDROGEN PEROXIDE 3% 118 ML BOTTLE TP SCH ×2 (08:40→21:18)
[2019-11-01] MEDS: GLUCERNA 1.2 1000ML LIQUID GT PRN (08:49)
--- NOTE | 2019-11-01 17:30 | NUR ---
PT. SEEN NADEXAMINED BY GONZÁLEZ SaenzP (I.D0 AND WITH NEW ORDERS CARRIED OUT.
[2019-11-01 20:00] VITALS: BP 104/72
--- NOTE | 2019-11-01 20:05 | NUR ---
PT REMAIN ON CONTINUOUS VENT, TRACH CARE DONE. TRACH IN PLACED AND SECURED WITH TRACH TIE. BACK UP TRACH AND AMBU BAG AT BEDSIDE. SUCTION PRN. VENT CHECKED, ALARMS WORKING WELL AND AUDIBLE. NO DISTRESS NOTED AT THIS TIME. WILL CONTINUE TO MONITOR.
[2019-11-01] MEDS: ACIDOPHILUS/BULGARICUS CHEW TAB GT SCH (21:00)
[2019-11-01] MEDS: ASCORBIC ACID 500 MG TABLET PO SCH (21:00)
[2019-11-01] MEDS: CEFEPIME HCL 2 G in IV DEXTROSE 5% 100 ML IV SCH (21:19)
[2019-11-02] MEDS: PROTEIN SUPPLEMENT (PROSTAT) 30 ML LIQUID GT SCH ×3 (06:19→21:57)
[2019-11-02] MEDS: ARGININE/GLUTAMINE/CALCIUM BMB 1 EACH POWD.PACK GT SCH ×2 (06:19→17:15)
[2019-11-02] MEDS: POLYVINYL ALCOHOL OPHT DROPS 15 ML BOTTLE EACHEYE SCH ×3 (06:19→21:54)
[2019-11-02 06:34] LABS: CREATININE 0.8 mg/dL (0.6-1.3); POTASSIUM 3.5 mmol/L (3.5-5.1)
[2019-11-02 07:49] VITALS: BP 114/61
[2019-11-02] MEDS: GLUCERNA 1.2 1000ML LIQUID GT PRN (08:50)
[2019-11-02] MEDS: levETIRAcetam 500 MG/5 ML LIQUID UDC GT SCH ×2 (08:50→21:53)
[2019-11-02] MEDS: DIGOXIN 125 MCG TABLET GT SCH (08:51)
[2019-11-02] MEDS: HYDROGEN PEROXIDE 3% 118 ML BOTTLE TP SCH ×2 (08:51→21:16)
[2019-11-02] MEDS: THERAHONEY GEL 1.5 OZ TUBE TOP SCH ×2 (08:52→21:53)
[2019-11-02] MEDS: FAMOTIDINE 20 MG TABLET GT SCH ×2 (08:52→21:56)
[2019-11-02] MEDS: FUROSEMIDE 20 MG TABLET GT SCH (08:52)
[2019-11-02] MEDS: Z GUARD REMEDY PASTE 57 GM TUBE TOP SCH ×2 (08:52→21:53)
[2019-11-02] MEDS: NORMAL SALINE NASAL 45 ML BOTTLE NS SCH (08:52)
[2019-11-02] MEDS: ZINC SULFATE 220 MG CAPSULE GT SCH (08:52)
[2019-11-02] MEDS: POTASSIUM CHLORIDE 40 MEQ/30 ML LIQUID UDC GT SCH (08:52)
[2019-11-02] MEDS: SODIUM HYPOCHLORITE 0.125% (QUARTER STRENGTH) 473 ML BOTTLE TP SCH ×2 (08:53→21:53)
[2019-11-02] MEDS: TRIAMCINOLONE ACET 0.1% CREAM 15 GM TUBE TP SCH ×2 (08:53→21:53)
[2019-11-02] MEDS: NYSTATIN CREAM 30 GM TUBE TP SCH ×2 (08:53→21:53)
[2019-11-02] MEDS: CEFEPIME HCL 2 G in IV DEXTROSE 5% 100 ML IV SCH ×2 (09:09→21:30)
[2019-11-02 20:00] VITALS: BP 111/59
[2019-11-02] MEDS: ACIDOPHILUS/BULGARICUS CHEW TAB GT SCH (21:51)
[2019-11-02] MEDS: ASCORBIC ACID 500 MG TABLET PO SCH (21:53)
[2019-11-03] MEDS: POLYVINYL ALCOHOL OPHT DROPS 15 ML BOTTLE EACHEYE SCH ×3 (06:31→21:19)
[2019-11-03] MEDS: ARGININE/GLUTAMINE/CALCIUM BMB 1 EACH POWD.PACK GT SCH ×2 (06:31→17:12)
[2019-11-03] MEDS: PROTEIN SUPPLEMENT (PROSTAT) 30 ML LIQUID GT SCH ×3 (06:31→21:19)
[2019-11-03] MEDS: HYDROGEN PEROXIDE 3% 118 ML BOTTLE TP SCH ×2 (07:25→21:19)
[2019-11-03 07:53] VITALS: BP 121/58
[2019-11-03] MEDS: CEFEPIME HCL 2 G in IV DEXTROSE 5% 100 ML IV SCH ×2 (08:12→21:41)
[2019-11-03] MEDS: levETIRAcetam 500 MG/5 ML LIQUID UDC GT SCH ×2 (08:46→21:17)
[2019-11-03] MEDS: FUROSEMIDE 20 MG TABLET GT SCH (08:47)
[2019-11-03] MEDS: DIGOXIN 125 MCG TABLET GT SCH (08:47)
[2019-11-03] MEDS: FAMOTIDINE 20 MG TABLET GT SCH ×2 (08:47→21:17)
[2019-11-03] MEDS: Z GUARD REMEDY PASTE 57 GM TUBE TOP SCH ×2 (08:47→21:18)
[2019-11-03] MEDS: POTASSIUM CHLORIDE 40 MEQ/30 ML LIQUID UDC GT SCH (08:47)
[2019-11-03] MEDS: ZINC SULFATE 220 MG CAPSULE GT SCH (08:47)
[2019-11-03] MEDS: TRIAMCINOLONE ACET 0.1% CREAM 15 GM TUBE TP SCH ×2 (08:47→21:19)
[2019-11-03] MEDS: NORMAL SALINE NASAL 45 ML BOTTLE NS SCH (08:47)
[2019-11-03] MEDS: NYSTATIN CREAM 30 GM TUBE TP SCH ×2 (08:47→21:19)
[2019-11-03] MEDS: THERAHONEY GEL 1.5 OZ TUBE TOP SCH ×2 (08:47→21:18)
[2019-11-03] MEDS: SODIUM HYPOCHLORITE 0.125% (QUARTER STRENGTH) 473 ML BOTTLE TP SCH ×2 (08:47→21:19)
[2019-11-03 20:50] VITALS: BP 125/57
[2019-11-03] MEDS: ASCORBIC ACID 500 MG TABLET PO SCH (21:17)
[2019-11-03] MEDS: ACIDOPHILUS/BULGARICUS CHEW TAB GT SCH (21:17)
[2019-11-04] MEDS: ARGININE/GLUTAMINE/CALCIUM BMB 1 EACH POWD.PACK GT SCH ×2 (05:52→17:19)
[2019-11-04] MEDS: PROTEIN SUPPLEMENT (PROSTAT) 30 ML LIQUID GT SCH ×3 (05:52→21:32)
[2019-11-04] MEDS: POLYVINYL ALCOHOL OPHT DROPS 15 ML BOTTLE EACHEYE SCH ×3 (05:52→21:32)
[2019-11-04 06:42] LABS: BASOPHILS % (AUTO) 0.7 % (0.0-2.0); EOSINOPHILS # (AUTO) 0.2 K/uL (0.0-0.7); EOSINOPHILS % (AUTO) 4.8 % (0.0-7.0); HEMATOCRIT 35.6 % (31.2-41.9); LYMPHOCYTES # (AUTO) 1.5 K/uL (20.0-40.0); LYMPHOCYTES % (AUTO) 29.5 % (20.5-51.5); MEAN CORPUSCULAR HEMOGLOBIN 31.2 uug (24.7-32.8); MEAN CORPUSCULAR HGB CONC 34 g/dL (32.3-35.6); MEAN CORPUSCULAR VOLUME 92.9 fL (75.5-95.3); MONOCYTES # (AUTO) 0.5 K/uL (2.0-10.0); MONOCYTES % (AUTO) 10.5 % (0.0-11.0); NEUTROPHILS # (AUTO) 2.7 K/uL (1.8-8.9); NEUTROPHILS % (AUTO) 54.5 % (38.5-71.5); RED BLOOD CELL COUNT(AUTO) 3.84 MIL/uL (3.63-4.92)
[2019-11-04 06:51] LABS: BILIRUBIN,TOTAL 0.3 mg/dL (0.2-1.0); CREATININE 0.7 mg/dL (0.6-1.3)
[2019-11-04 07:38] VITALS: BP 135/79
[2019-11-04] MEDS: DIGOXIN 125 MCG TABLET GT SCH (08:16)
[2019-11-04] MEDS: levETIRAcetam 500 MG/5 ML LIQUID UDC GT SCH ×2 (08:16→21:31)
[2019-11-04] MEDS: NORMAL SALINE NASAL 45 ML BOTTLE NS SCH (08:17)
[2019-11-04] MEDS: POTASSIUM CHLORIDE 40 MEQ/30 ML LIQUID UDC GT SCH (08:17)
[2019-11-04] MEDS: FUROSEMIDE 20 MG TABLET GT SCH (08:17)
[2019-11-04] MEDS: Z GUARD REMEDY PASTE 57 GM TUBE TOP SCH ×2 (08:17→21:32)
[2019-11-04] MEDS: ZINC SULFATE 220 MG CAPSULE GT SCH (08:17)
[2019-11-04] MEDS: FAMOTIDINE 20 MG TABLET GT SCH ×2 (08:17→21:32)
[2019-11-04] MEDS: THERAHONEY GEL 1.5 OZ TUBE TOP SCH ×2 (08:17→21:32)
[2019-11-04] MEDS: SODIUM HYPOCHLORITE 0.125% (QUARTER STRENGTH) 473 ML BOTTLE TP SCH ×2 (08:18→21:32)
[2019-11-04] MEDS: TRIAMCINOLONE ACET 0.1% CREAM 15 GM TUBE TP SCH ×2 (08:18→21:32)
[2019-11-04] MEDS: NYSTATIN CREAM 30 GM TUBE TP SCH ×2 (08:18→21:32)
[2019-11-04] MEDS: CEFEPIME HCL 2 G in IV DEXTROSE 5% 100 ML IV SCH ×2 (09:00→21:29)
[2019-11-04] MEDS: HYDROGEN PEROXIDE 3% 118 ML BOTTLE TP SCH ×2 (09:18→21:38)
[2019-11-04 11:51] LABS: PLATELET COUNT (AUTO) 134 K/uL (179-408)
[2019-11-04 11:58] LABS: BAND % (MANUAL) 2 % (0-10); LYMPHOCYTES % (MANUAL) 27 % (20-40); MONOCYTES % (MANUAL) 11 % (2-10); NEUTROPHILS % (MANUAL) 58 % (42-75)
[2019-11-04 11:59] LABS: EOSINOPHILS % (MANUAL) 2 % (0-8)
--- NOTE | 2019-11-04 12:00 | NUR ---
SEEN BY ROOPA Dixon AND WITH NNO.
[2019-11-04] MEDS: GLUCERNA 1.2 1000ML LIQUID GT PRN (13:25)
--- NOTE | 2019-11-04 14:13 | NUR ---
PT'S DTR, HARLEY WAS NOTIFIED RE: NEGATIVE COVID 19 TEST.
[2019-11-04 20:58] VITALS: BP 119/61
[2019-11-04] MEDS: ACIDOPHILUS/BULGARICUS CHEW TAB GT SCH (21:31)
[2019-11-04] MEDS: ASCORBIC ACID 500 MG TABLET PO SCH (21:32)
[2019-11-05] MEDS: POLYVINYL ALCOHOL OPHT DROPS 15 ML BOTTLE EACHEYE SCH ×3 (05:15→21:29)
[2019-11-05] MEDS: PROTEIN SUPPLEMENT (PROSTAT) 30 ML LIQUID GT SCH ×3 (05:15→21:29)
[2019-11-05] MEDS: ARGININE/GLUTAMINE/CALCIUM BMB 1 EACH POWD.PACK GT SCH ×2 (05:15→18:05)
[2019-11-05 07:24] VITALS: BP 105/63
[2019-11-05] MEDS: CEFEPIME HCL 2 G in IV DEXTROSE 5% 100 ML IV SCH ×2 (09:15→20:40)
[2019-11-05] MEDS: POTASSIUM CHLORIDE 40 MEQ/30 ML LIQUID UDC GT SCH (09:28)
[2019-11-05] MEDS: SODIUM HYPOCHLORITE 0.125% (QUARTER STRENGTH) 473 ML BOTTLE TP SCH ×2 (09:28→21:28)
[2019-11-05] MEDS: Z GUARD REMEDY PASTE 57 GM TUBE TOP SCH ×2 (09:28→21:27)
[2019-11-05] MEDS: NORMAL SALINE NASAL 45 ML BOTTLE NS SCH (09:28)
[2019-11-05] MEDS: TRIAMCINOLONE ACET 0.1% CREAM 15 GM TUBE TP SCH ×2 (09:29→21:28)
[2019-11-05] MEDS: THERAHONEY GEL 1.5 OZ TUBE TOP SCH ×2 (09:29→21:27)
[2019-11-05] MEDS: NYSTATIN CREAM 30 GM TUBE TP SCH ×2 (09:29→21:28)
[2019-11-05] MEDS: ZINC SULFATE 220 MG CAPSULE GT SCH (09:30)
[2019-11-05] MEDS: levETIRAcetam 500 MG/5 ML LIQUID UDC GT SCH ×2 (09:47→21:27)
[2019-11-05] MEDS: FAMOTIDINE 20 MG TABLET GT SCH ×2 (09:48→21:27)
[2019-11-05] MEDS: DIGOXIN 125 MCG TABLET GT SCH (09:48)
[2019-11-05] MEDS: FUROSEMIDE 20 MG TABLET GT SCH (09:48)
[2019-11-05] MEDS: HYDROGEN PEROXIDE 3% 118 ML BOTTLE TP SCH ×2 (09:50→21:22)
[2019-11-05 20:37] VITALS: BP 110/60
[2019-11-05] MEDS: ASCORBIC ACID 500 MG TABLET PO SCH (21:27)
[2019-11-05] MEDS: ACIDOPHILUS/BULGARICUS CHEW TAB GT SCH (21:27)
[2019-11-06] MEDS: POLYVINYL ALCOHOL OPHT DROPS 15 ML BOTTLE EACHEYE SCH ×3 (05:20→21:04)
[2019-11-06] MEDS: ARGININE/GLUTAMINE/CALCIUM BMB 1 EACH POWD.PACK GT SCH ×2 (05:20→18:38)
[2019-11-06] MEDS: PROTEIN SUPPLEMENT (PROSTAT) 30 ML LIQUID GT SCH ×3 (05:20→21:04)
[2019-11-06 07:28] VITALS: BP 134/75
[2019-11-06] MEDS: HYDROGEN PEROXIDE 3% 118 ML BOTTLE TP SCH ×2 (08:26→21:20)
[2019-11-06] MEDS: TRIAMCINOLONE ACET 0.1% CREAM 15 GM TUBE TP SCH ×2 (09:00→21:05)
[2019-11-06] MEDS: DIGOXIN 125 MCG TABLET GT SCH (09:00)
[2019-11-06] MEDS: Z GUARD REMEDY PASTE 57 GM TUBE TOP SCH ×2 (09:00→21:04)
[2019-11-06] MEDS: SODIUM HYPOCHLORITE 0.125% (QUARTER STRENGTH) 473 ML BOTTLE TP SCH ×2 (09:00→21:04)
[2019-11-06] MEDS: levETIRAcetam 500 MG/5 ML LIQUID UDC GT SCH ×2 (09:00→21:04)
[2019-11-06] MEDS: POTASSIUM CHLORIDE 40 MEQ/30 ML LIQUID UDC GT SCH (09:00)
[2019-11-06] MEDS: FUROSEMIDE 20 MG TABLET GT SCH (09:00)
[2019-11-06] MEDS: THERAHONEY GEL 1.5 OZ TUBE TOP SCH ×2 (09:00→21:04)
[2019-11-06] MEDS: FAMOTIDINE 20 MG TABLET GT SCH ×2 (09:00→21:04)
[2019-11-06] MEDS: NORMAL SALINE NASAL 45 ML BOTTLE NS SCH (09:00)
[2019-11-06] MEDS: ZINC SULFATE 220 MG CAPSULE GT SCH (09:00)
[2019-11-06] MEDS: NYSTATIN CREAM 30 GM TUBE TP SCH ×2 (09:00→21:04)
[2019-11-06] MEDS: CEFEPIME HCL 2 G in IV DEXTROSE 5% 100 ML IV SCH ×2 (09:55→21:00)
[2019-11-06 20:49] VITALS: BP 122/65
[2019-11-06] MEDS: ACIDOPHILUS/BULGARICUS CHEW TAB GT SCH (21:04)
[2019-11-06] MEDS: ASCORBIC ACID 500 MG TABLET PO SCH (21:04)
--- NOTE | 2019-11-07 02:23 | NUR ---
Remains on Cefepime 2 grams IV for sacral wound osteomylitis, no adverse reactions noted, afebrile, wound treatment done, turned and repositioned , kept clean and comfortable.
[2019-11-07] MEDS: PROTEIN SUPPLEMENT (PROSTAT) 30 ML LIQUID GT SCH ×3 (05:39→22:27)
[2019-11-07] MEDS: POLYVINYL ALCOHOL OPHT DROPS 15 ML BOTTLE EACHEYE SCH ×3 (05:39→22:27)
[2019-11-07] MEDS: ARGININE/GLUTAMINE/CALCIUM BMB 1 EACH POWD.PACK GT SCH ×2 (05:39→17:26)
[2019-11-07 07:45] VITALS: BP 121/59
[2019-11-07] MEDS: levETIRAcetam 500 MG/5 ML LIQUID UDC GT SCH ×2 (08:16→20:45)
[2019-11-07] MEDS: FUROSEMIDE 20 MG TABLET GT SCH (08:17)
[2019-11-07] MEDS: DIGOXIN 125 MCG TABLET GT SCH (08:17)
[2019-11-07] MEDS: POTASSIUM CHLORIDE 40 MEQ/30 ML LIQUID UDC GT SCH (08:21)
[2019-11-07] MEDS: ZINC SULFATE 220 MG CAPSULE GT SCH (08:21)
[2019-11-07] MEDS: FAMOTIDINE 20 MG TABLET GT SCH ×2 (08:21→20:45)
[2019-11-07] MEDS: NORMAL SALINE NASAL 45 ML BOTTLE NS SCH (08:22)
[2019-11-07] MEDS: Z GUARD REMEDY PASTE 57 GM TUBE TOP SCH ×2 (08:22→20:46)
[2019-11-07] MEDS: TRIAMCINOLONE ACET 0.1% CREAM 15 GM TUBE TP SCH ×2 (09:00→20:46)
[2019-11-07] MEDS: THERAHONEY GEL 1.5 OZ TUBE TOP SCH ×2 (09:00→20:46)
[2019-11-07] MEDS: NYSTATIN CREAM 30 GM TUBE TP SCH ×2 (09:00→20:46)
[2019-11-07] MEDS: CEFEPIME HCL 2 G in IV DEXTROSE 5% 100 ML IV SCH ×2 (09:00→21:02)
[2019-11-07] MEDS: SODIUM HYPOCHLORITE 0.125% (QUARTER STRENGTH) 473 ML BOTTLE TP SCH ×2 (09:00→20:46)
[2019-11-07] MEDS: HYDROGEN PEROXIDE 3% 118 ML BOTTLE TP SCH ×2 (09:00→21:33)
[2019-11-07 20:17] VITALS: BP 126/55
[2019-11-07] MEDS: ACIDOPHILUS/BULGARICUS CHEW TAB GT SCH (20:45)
[2019-11-07] MEDS: ASCORBIC ACID 500 MG TABLET PO SCH (20:46)
[2019-11-07] MEDS: GLUCERNA 1.2 1000ML LIQUID GT PRN (22:40)
--- NOTE | 2019-11-08 01:33 | NUR ---
Still on Ancef IV for sacral wound osteomylitis, no adverse reactions noted. Afebrile, treatment done on sacral wound as ordered, turned and repositioned, kept clean and comfortable.
[2019-11-08] MEDS: ARGININE/GLUTAMINE/CALCIUM BMB 1 EACH POWD.PACK GT SCH ×2 (05:23→17:25)
[2019-11-08] MEDS: PROTEIN SUPPLEMENT (PROSTAT) 30 ML LIQUID GT SCH ×3 (05:23→21:11)
[2019-11-08] MEDS: POLYVINYL ALCOHOL OPHT DROPS 15 ML BOTTLE EACHEYE SCH ×3 (05:23→21:11)
[2019-11-08 07:45] VITALS: BP 115/50
[2019-11-08] MEDS: levETIRAcetam 500 MG/5 ML LIQUID UDC GT SCH ×2 (08:51→21:10)
[2019-11-08] MEDS: DIGOXIN 125 MCG TABLET GT SCH (08:52)
[2019-11-08] MEDS: FUROSEMIDE 20 MG TABLET GT SCH (08:53)
[2019-11-08] MEDS: FAMOTIDINE 20 MG TABLET GT SCH ×2 (08:53→21:10)
[2019-11-08] MEDS: NORMAL SALINE NASAL 45 ML BOTTLE NS SCH (08:53)
[2019-11-08] MEDS: POTASSIUM CHLORIDE 40 MEQ/30 ML LIQUID UDC GT SCH (08:53)
[2019-11-08] MEDS: NYSTATIN CREAM 30 GM TUBE TP SCH ×2 (08:54→21:11)
[2019-11-08] MEDS: THERAHONEY GEL 1.5 OZ TUBE TOP SCH ×2 (08:54→21:10)
[2019-11-08] MEDS: TRIAMCINOLONE ACET 0.1% CREAM 15 GM TUBE TP SCH ×2 (08:54→21:11)
[2019-11-08] MEDS: Z GUARD REMEDY PASTE 57 GM TUBE TOP SCH ×2 (08:54→21:18)
[2019-11-08] MEDS: SODIUM HYPOCHLORITE 0.125% (QUARTER STRENGTH) 473 ML BOTTLE TP SCH ×2 (08:54→21:10)
[2019-11-08] MEDS: HYDROGEN PEROXIDE 3% 118 ML BOTTLE TP SCH ×2 (09:28→21:26)
[2019-11-08] MEDS: CEFEPIME HCL 2 G in IV DEXTROSE 5% 100 ML IV SCH ×2 (09:46→21:22)
[2019-11-08 20:23] VITALS: BP 116/75
[2019-11-08] MEDS: ACIDOPHILUS/BULGARICUS CHEW TAB GT SCH (21:10)
[2019-11-08] MEDS: ASCORBIC ACID 500 MG TABLET PO SCH (21:10)
[2019-11-09] MEDS: GLUCERNA 1.2 1000ML LIQUID GT PRN (00:44)
--- NOTE | 2019-11-09 02:18 | NUR ---
continue on cefepime 2gm iv for sacral wound osteomyelitis, afebrile, no adverse reaction noted, no respiratory distress noted.
[2019-11-09] MEDS: POLYVINYL ALCOHOL OPHT DROPS 15 ML BOTTLE EACHEYE SCH ×3 (05:09→22:18)
[2019-11-09] MEDS: ARGININE/GLUTAMINE/CALCIUM BMB 1 EACH POWD.PACK GT SCH ×2 (05:09→18:09)
[2019-11-09] MEDS: PROTEIN SUPPLEMENT (PROSTAT) 30 ML LIQUID GT SCH ×3 (05:09→22:18)
[2019-11-09 07:41] VITALS: BP 114/54
[2019-11-09] MEDS: levETIRAcetam 500 MG/5 ML LIQUID UDC GT SCH ×2 (08:28→20:42)
[2019-11-09] MEDS: DIGOXIN 125 MCG TABLET GT SCH (08:29)
[2019-11-09] MEDS: FUROSEMIDE 20 MG TABLET GT SCH (08:30)
[2019-11-09] MEDS: POTASSIUM CHLORIDE 40 MEQ/30 ML LIQUID UDC GT SCH (08:31)
[2019-11-09] MEDS: FAMOTIDINE 20 MG TABLET GT SCH ×2 (08:31→20:42)
[2019-11-09] MEDS: NORMAL SALINE NASAL 45 ML BOTTLE NS SCH (08:35)
[2019-11-09] MEDS: Z GUARD REMEDY PASTE 57 GM TUBE TOP SCH ×2 (08:35→20:42)
[2019-11-09] MEDS: THERAHONEY GEL 1.5 OZ TUBE TOP SCH ×2 (08:35→20:42)
[2019-11-09] MEDS: TRIAMCINOLONE ACET 0.1% CREAM 15 GM TUBE TP SCH ×2 (08:35→20:43)
[2019-11-09] MEDS: NYSTATIN CREAM 30 GM TUBE TP SCH ×2 (08:36→20:43)
[2019-11-09] MEDS: SODIUM HYPOCHLORITE 0.125% (QUARTER STRENGTH) 473 ML BOTTLE TP SCH ×2 (09:00→20:43)
[2019-11-09] MEDS: CEFEPIME HCL 2 G in IV DEXTROSE 5% 100 ML IV SCH ×2 (09:45→21:10)
[2019-11-09] MEDS: HYDROGEN PEROXIDE 3% 118 ML BOTTLE TP SCH ×2 (10:10→21:26)
--- NOTE | 2019-11-09 19:37 | NUR ---
Continue on Ivatb for osteomilitis,no adverse reaction noted,R upper arm midline intact.
[2019-11-09 20:27] VITALS: BP 127/55
[2019-11-09] MEDS: ACIDOPHILUS/BULGARICUS CHEW TAB GT SCH (20:42)
[2019-11-09] MEDS: ASCORBIC ACID 500 MG TABLET PO SCH (20:42)
--- NOTE | 2019-11-10 03:49 | NUR ---
continue on cefepime 2gm iv for sacral wound osteomyelitis, no adverse reaction noted, no respiratory distress noted.
[2019-11-10] MEDS: GLUCERNA 1.2 1000ML LIQUID GT PRN (04:03)
[2019-11-10] MEDS: POLYVINYL ALCOHOL OPHT DROPS 15 ML BOTTLE EACHEYE SCH ×3 (05:09→21:44)
[2019-11-10] MEDS: ARGININE/GLUTAMINE/CALCIUM BMB 1 EACH POWD.PACK GT SCH ×2 (05:09→17:56)
[2019-11-10] MEDS: PROTEIN SUPPLEMENT (PROSTAT) 30 ML LIQUID GT SCH ×3 (05:10→21:44)
[2019-11-10 06:30] LABS: BILIRUBIN,TOTAL 0.4 mg/dL (0.2-1.0); CREATININE 0.7 mg/dL (0.6-1.3); POTASSIUM 4.2 mmol/L (3.5-5.1); TOTAL PROTEIN, SERUM 7.9 g/dL (6.4-8.2)
[2019-11-10 07:02] LABS: BASOPHILS % (AUTO) 0.8 % (0.0-2.0); EOSINOPHILS # (AUTO) 0.1 K/uL (0.0-0.7); EOSINOPHILS % (AUTO) 2.7 % (0.0-7.0); HEMATOCRIT 37.8 % (31.2-41.9); HEMOGLOBIN 12.5 g/dL (10.9-14.3); LYMPHOCYTES # (AUTO) 1.4 K/uL (20.0-40.0); MEAN CORPUSCULAR HEMOGLOBIN 30.5 uug (24.7-32.8); MEAN CORPUSCULAR HGB CONC 33 g/dL (32.3-35.6); MEAN CORPUSCULAR VOLUME 92.4 fL (75.5-95.3); MONOCYTES # (AUTO) 0.6 K/uL (2.0-10.0); MONOCYTES % (AUTO) 13.1 % (0.0-11.0); NEUTROPHILS # (AUTO) 2.4 K/uL (1.8-8.9); NEUTROPHILS % (AUTO) 52.4 % (38.5-71.5); PLATELET COUNT (AUTO) 116 K/uL (179-408); RED BLOOD CELL COUNT(AUTO) 4.09 MIL/uL (3.63-4.92); WHITE BLOOD COUNT (AUTO) 4.6 K/uL (3.8-11.8)
[2019-11-10] MEDS: HYDROGEN PEROXIDE 3% 118 ML BOTTLE TP SCH ×2 (07:10→21:24)
[2019-11-10 07:46] VITALS: BP 116/72
[2019-11-10] MEDS: levETIRAcetam 500 MG/5 ML LIQUID UDC GT SCH ×2 (08:52→21:43)
[2019-11-10] MEDS: FUROSEMIDE 20 MG TABLET GT SCH (08:57)
[2019-11-10] MEDS: DIGOXIN 125 MCG TABLET GT SCH (08:57)
[2019-11-10] MEDS: SODIUM HYPOCHLORITE 0.125% (QUARTER STRENGTH) 473 ML BOTTLE TP SCH ×2 (08:57→21:43)
[2019-11-10] MEDS: POTASSIUM CHLORIDE 40 MEQ/30 ML LIQUID UDC GT SCH (08:57)
[2019-11-10] MEDS: THERAHONEY GEL 1.5 OZ TUBE TOP SCH ×2 (08:57→21:43)
[2019-11-10] MEDS: Z GUARD REMEDY PASTE 57 GM TUBE TOP SCH ×2 (08:57→21:43)
[2019-11-10] MEDS: NORMAL SALINE NASAL 45 ML BOTTLE NS SCH (08:57)
[2019-11-10] MEDS: FAMOTIDINE 20 MG TABLET GT SCH ×2 (08:57→21:43)
[2019-11-10] MEDS: TRIAMCINOLONE ACET 0.1% CREAM 15 GM TUBE TP SCH ×2 (08:58→21:44)
[2019-11-10] MEDS: NYSTATIN CREAM 30 GM TUBE TP SCH ×2 (08:58→21:44)
[2019-11-10] MEDS: CEFEPIME HCL 2 G in IV DEXTROSE 5% 100 ML IV SCH ×2 (09:00→20:30)
--- NOTE | 2019-11-10 17:45 | NUR ---
Continue on Iv ATB therapy for osteomilitis ,no adverse reaction noted,midline on the R upper arm intact.
[2019-11-10 20:15] VITALS: BP 124/68
[2019-11-10] MEDS: ACIDOPHILUS/BULGARICUS CHEW TAB GT SCH (21:43)
[2019-11-10] MEDS: ASCORBIC ACID 500 MG TABLET PO SCH (21:43)
[2019-11-11] MEDS: ARGININE/GLUTAMINE/CALCIUM BMB 1 EACH POWD.PACK GT SCH ×2 (06:01→17:58)
[2019-11-11] MEDS: PROTEIN SUPPLEMENT (PROSTAT) 30 ML LIQUID GT SCH ×3 (06:01→21:58)
[2019-11-11] MEDS: POLYVINYL ALCOHOL OPHT DROPS 15 ML BOTTLE EACHEYE SCH ×3 (06:01→21:58)
[2019-11-11 07:29] VITALS: BP 112/60
[2019-11-11] MEDS: CEFEPIME HCL 2 G in IV DEXTROSE 5% 100 ML IV SCH ×2 (08:08→21:01)
[2019-11-11] MEDS: FAMOTIDINE 20 MG TABLET GT SCH ×2 (08:21→21:57)
[2019-11-11] MEDS: THERAHONEY GEL 1.5 OZ TUBE TOP SCH ×2 (08:21→21:57)
[2019-11-11] MEDS: Z GUARD REMEDY PASTE 57 GM TUBE TOP SCH ×2 (08:21→21:57)
[2019-11-11] MEDS: DIGOXIN 125 MCG TABLET GT SCH (08:21)
[2019-11-11] MEDS: SODIUM HYPOCHLORITE 0.125% (QUARTER STRENGTH) 473 ML BOTTLE TP SCH ×2 (08:21→21:58)
[2019-11-11] MEDS: POTASSIUM CHLORIDE 40 MEQ/30 ML LIQUID UDC GT SCH (08:21)
[2019-11-11] MEDS: levETIRAcetam 500 MG/5 ML LIQUID UDC GT SCH ×2 (08:21→21:57)
[2019-11-11] MEDS: NORMAL SALINE NASAL 45 ML BOTTLE NS SCH (08:21)
[2019-11-11] MEDS: FUROSEMIDE 20 MG TABLET GT SCH (08:21)
[2019-11-11] MEDS: TRIAMCINOLONE ACET 0.1% CREAM 15 GM TUBE TP SCH ×2 (08:22→21:58)
[2019-11-11] MEDS: HYDROGEN PEROXIDE 3% 118 ML BOTTLE TP SCH ×2 (08:22→21:55)
[2019-11-11] MEDS: NYSTATIN CREAM 30 GM TUBE TP SCH ×2 (08:22→21:58)
[2019-11-11 20:06] VITALS: BP 124/60
[2019-11-11] MEDS: ASCORBIC ACID 500 MG TABLET PO SCH (21:57)
[2019-11-11] MEDS: ACIDOPHILUS/BULGARICUS CHEW TAB GT SCH (21:57)
[2019-11-12] MEDS: ARGININE/GLUTAMINE/CALCIUM BMB 1 EACH POWD.PACK GT SCH ×2 (05:35→17:35)
[2019-11-12] MEDS: POLYVINYL ALCOHOL OPHT DROPS 15 ML BOTTLE EACHEYE SCH ×3 (05:35→21:10)
[2019-11-12] MEDS: PROTEIN SUPPLEMENT (PROSTAT) 30 ML LIQUID GT SCH ×3 (05:36→21:10)
[2019-11-12] MEDS: GLUCERNA 1.2 1000ML LIQUID GT PRN (06:41)
[2019-11-12 07:42] VITALS: BP 123/69
[2019-11-12] MEDS: levETIRAcetam 500 MG/5 ML LIQUID UDC GT SCH ×2 (08:21→20:57)
[2019-11-12] MEDS: POTASSIUM CHLORIDE 40 MEQ/30 ML LIQUID UDC GT SCH (08:21)
[2019-11-12] MEDS: FAMOTIDINE 20 MG TABLET GT SCH ×2 (08:21→20:57)
[2019-11-12] MEDS: FUROSEMIDE 20 MG TABLET GT SCH (08:21)
[2019-11-12] MEDS: DIGOXIN 125 MCG TABLET GT SCH (08:21)
[2019-11-12] MEDS: SODIUM HYPOCHLORITE 0.125% (QUARTER STRENGTH) 473 ML BOTTLE TP SCH ×2 (08:22→20:58)
[2019-11-12] MEDS: TRIAMCINOLONE ACET 0.1% CREAM 15 GM TUBE TP SCH ×2 (08:22→20:58)
[2019-11-12] MEDS: NORMAL SALINE NASAL 45 ML BOTTLE NS SCH (08:22)
[2019-11-12] MEDS: Z GUARD REMEDY PASTE 57 GM TUBE TOP SCH ×2 (08:22→20:57)
[2019-11-12] MEDS: NYSTATIN CREAM 30 GM TUBE TP SCH ×2 (08:22→20:58)
[2019-11-12] MEDS: THERAHONEY GEL 1.5 OZ TUBE TOP SCH ×2 (08:22→20:57)
[2019-11-12] MEDS: CEFEPIME HCL 2 G in IV DEXTROSE 5% 100 ML IV SCH ×2 (09:11→20:55)
[2019-11-12] MEDS: HYDROGEN PEROXIDE 3% 118 ML BOTTLE TP SCH ×2 (09:14→19:18)
[2019-11-12 20:06] VITALS: BP 113/59
[2019-11-12] MEDS: ASCORBIC ACID 500 MG TABLET PO SCH (20:57)
[2019-11-12] MEDS: ACIDOPHILUS/BULGARICUS CHEW TAB GT SCH (20:57)
[2019-11-13] MEDS: GLUCERNA 1.2 1000ML LIQUID GT PRN (03:22)
[2019-11-13] MEDS: ARGININE/GLUTAMINE/CALCIUM BMB 1 EACH POWD.PACK GT SCH ×2 (05:22→17:37)
[2019-11-13] MEDS: PROTEIN SUPPLEMENT (PROSTAT) 30 ML LIQUID GT SCH ×3 (05:22→21:02)
[2019-11-13] MEDS: POLYVINYL ALCOHOL OPHT DROPS 15 ML BOTTLE EACHEYE SCH ×3 (05:22→21:02)
[2019-11-13 07:36] VITALS: BP 122/69
[2019-11-13] MEDS: HYDROGEN PEROXIDE 3% 118 ML BOTTLE TP SCH ×2 (08:00→21:31)
[2019-11-13] MEDS: levETIRAcetam 500 MG/5 ML LIQUID UDC GT SCH ×2 (09:13→20:59)
[2019-11-13] MEDS: FUROSEMIDE 20 MG TABLET GT SCH (09:13)
[2019-11-13] MEDS: DIGOXIN 125 MCG TABLET GT SCH (09:13)
[2019-11-13] MEDS: POTASSIUM CHLORIDE 40 MEQ/30 ML LIQUID UDC GT SCH (09:14)
[2019-11-13] MEDS: FAMOTIDINE 20 MG TABLET GT SCH ×2 (09:14→20:59)
[2019-11-13] MEDS: Z GUARD REMEDY PASTE 57 GM TUBE TOP SCH ×2 (09:15→20:59)
[2019-11-13] MEDS: NORMAL SALINE NASAL 45 ML BOTTLE NS SCH (09:15)
[2019-11-13] MEDS: NYSTATIN CREAM 30 GM TUBE TP SCH ×2 (09:16→21:00)
[2019-11-13] MEDS: SODIUM HYPOCHLORITE 0.125% (QUARTER STRENGTH) 473 ML BOTTLE TP SCH ×2 (09:16→20:59)
[2019-11-13] MEDS: THERAHONEY GEL 1.5 OZ TUBE TOP SCH ×2 (09:16→20:59)
[2019-11-13] MEDS: TRIAMCINOLONE ACET 0.1% CREAM 15 GM TUBE TP SCH ×2 (09:16→20:59)
[2019-11-13] MEDS: CEFEPIME HCL 2 G in IV DEXTROSE 5% 100 ML IV SCH ×2 (09:49→21:00)
[2019-11-13 20:00] VITALS: BP 125/54
[2019-11-13] MEDS: ASCORBIC ACID 500 MG TABLET PO SCH (20:59)
[2019-11-13] MEDS: ACIDOPHILUS/BULGARICUS CHEW TAB GT SCH (20:59)
[2019-11-14] MEDS: ARGININE/GLUTAMINE/CALCIUM BMB 1 EACH POWD.PACK GT SCH (05:29)
[2019-11-14] MEDS: POLYVINYL ALCOHOL OPHT DROPS 15 ML BOTTLE EACHEYE SCH ×3 (05:29→21:01)
[2019-11-14] MEDS: PROTEIN SUPPLEMENT (PROSTAT) 30 ML LIQUID GT SCH ×3 (05:29→21:01)
[2019-11-14 08:00] VITALS: BP 125/69
[2019-11-14] MEDS: SODIUM HYPOCHLORITE 0.125% (QUARTER STRENGTH) 473 ML BOTTLE TP SCH ×2 (09:00→20:58)
[2019-11-14] MEDS: CEFEPIME HCL 2 G in IV DEXTROSE 5% 100 ML IV SCH ×2 (09:00→21:33)
[2019-11-14] MEDS: levETIRAcetam 500 MG/5 ML LIQUID UDC GT SCH ×2 (09:00→20:56)
[2019-11-14] MEDS: NORMAL SALINE NASAL 45 ML BOTTLE NS SCH (09:00)
[2019-11-14] MEDS: TRIAMCINOLONE ACET 0.1% CREAM 15 GM TUBE TP SCH ×2 (09:00→20:58)
[2019-11-14] MEDS: FUROSEMIDE 20 MG TABLET GT SCH (09:00)
[2019-11-14] MEDS: NYSTATIN CREAM 30 GM TUBE TP SCH ×2 (09:00→20:58)
[2019-11-14] MEDS: DIGOXIN 125 MCG TABLET GT SCH (09:00)
[2019-11-14] MEDS: THERAHONEY GEL 1.5 OZ TUBE TOP SCH ×2 (09:00→20:58)
[2019-11-14] MEDS: FAMOTIDINE 20 MG TABLET GT SCH ×2 (09:00→20:57)
[2019-11-14] MEDS: POTASSIUM CHLORIDE 40 MEQ/30 ML LIQUID UDC GT SCH (09:00)
[2019-11-14] MEDS: Z GUARD REMEDY PASTE 57 GM TUBE TOP SCH ×2 (09:00→20:58)
[2019-11-14] MEDS: HYDROGEN PEROXIDE 3% 118 ML BOTTLE TP SCH ×2 (09:38→21:41)
[2019-11-14] MEDS: GLUCERNA 1.2 1000ML LIQUID GT PRN (12:00)
--- NOTE | 2019-11-14 17:00 | NUR ---
SEEN BY ROOPA Dixon AND WITH NNO.
--- NOTE | 2019-11-14 17:30 | NUR ---
SEEN BY DR. FRAZIER,DR. ROBERTS. LUIS DANIEL Thurman (I.D) AND JOSE AVILA AND WITH NNO AT THIS TIME.
[2019-11-14 20:00] VITALS: BP 119/62
[2019-11-14] MEDS: ACIDOPHILUS/BULGARICUS CHEW TAB GT SCH (20:56)
[2019-11-14] MEDS: ASCORBIC ACID 500 MG TABLET PO SCH (20:57)
[2019-11-15] MEDS: ARGININE/GLUTAMINE/CALCIUM BMB 1 EACH POWD.PACK GT SCH ×2 (06:00→17:22)
[2019-11-15] MEDS: POLYVINYL ALCOHOL OPHT DROPS 15 ML BOTTLE EACHEYE SCH ×3 (06:19→21:19)
[2019-11-15] MEDS: PROTEIN SUPPLEMENT (PROSTAT) 30 ML LIQUID GT SCH ×3 (06:19→21:19)
[2019-11-15 07:47] VITALS: BP 120/65
[2019-11-15] MEDS: levETIRAcetam 500 MG/5 ML LIQUID UDC GT SCH ×2 (08:44→20:49)
[2019-11-15] MEDS: THERAHONEY GEL 1.5 OZ TUBE TOP SCH ×2 (08:45→20:49)
[2019-11-15] MEDS: SODIUM HYPOCHLORITE 0.125% (QUARTER STRENGTH) 473 ML BOTTLE TP SCH ×2 (08:45→20:49)
[2019-11-15] MEDS: NORMAL SALINE NASAL 45 ML BOTTLE NS SCH (08:45)
[2019-11-15] MEDS: Z GUARD REMEDY PASTE 57 GM TUBE TOP SCH ×2 (08:45→20:49)
[2019-11-15] MEDS: FUROSEMIDE 20 MG TABLET GT SCH (08:45)
[2019-11-15] MEDS: POTASSIUM CHLORIDE 40 MEQ/30 ML LIQUID UDC GT SCH (08:45)
[2019-11-15] MEDS: DIGOXIN 125 MCG TABLET GT SCH (08:45)
[2019-11-15] MEDS: FAMOTIDINE 20 MG TABLET GT SCH ×2 (08:45→20:49)
[2019-11-15] MEDS: NYSTATIN CREAM 30 GM TUBE TP SCH ×2 (08:46→20:49)
[2019-11-15] MEDS: TRIAMCINOLONE ACET 0.1% CREAM 15 GM TUBE TP SCH ×2 (08:46→20:49)
[2019-11-15] MEDS: CEFEPIME HCL 2 G in IV DEXTROSE 5% 100 ML IV SCH ×2 (09:00→21:00)
[2019-11-15] MEDS: HYDROGEN PEROXIDE 3% 118 ML BOTTLE TP SCH ×2 (09:05→21:17)
[2019-11-15 20:00] VITALS: BP 120/66
[2019-11-15] MEDS: ASCORBIC ACID 500 MG TABLET PO SCH (20:49)
[2019-11-15] MEDS: ACIDOPHILUS/BULGARICUS CHEW TAB GT SCH (20:49)
--- NOTE | 2019-11-16 01:22 | NUR ---
Change previous GT site care to wash with soap and water and cover with dry dressing daily.
[2019-11-16] MEDS: ARGININE/GLUTAMINE/CALCIUM BMB 1 EACH POWD.PACK GT SCH ×2 (05:00→17:33)
[2019-11-16] MEDS: PROTEIN SUPPLEMENT (PROSTAT) 30 ML LIQUID GT SCH ×3 (05:00→22:33)
[2019-11-16] MEDS: POLYVINYL ALCOHOL OPHT DROPS 15 ML BOTTLE EACHEYE SCH ×3 (05:00→22:33)
[2019-11-16 07:43] VITALS: BP 128/81
[2019-11-16] MEDS: levETIRAcetam 500 MG/5 ML LIQUID UDC GT SCH ×2 (08:34→20:36)
[2019-11-16] MEDS: DIGOXIN 125 MCG TABLET GT SCH (08:34)
[2019-11-16] MEDS: TRIAMCINOLONE ACET 0.1% CREAM 15 GM TUBE TP SCH ×2 (08:35→20:43)
[2019-11-16] MEDS: NYSTATIN CREAM 30 GM TUBE TP SCH ×2 (08:35→20:43)
[2019-11-16] MEDS: NORMAL SALINE NASAL 45 ML BOTTLE NS SCH (08:35)
[2019-11-16] MEDS: FAMOTIDINE 20 MG TABLET GT SCH ×2 (08:35→20:36)
[2019-11-16] MEDS: Z GUARD REMEDY PASTE 57 GM TUBE TOP SCH ×2 (08:35→20:36)
[2019-11-16] MEDS: POTASSIUM CHLORIDE 40 MEQ/30 ML LIQUID UDC GT SCH (08:35)
[2019-11-16] MEDS: THERAHONEY GEL 1.5 OZ TUBE TOP SCH ×2 (08:35→20:36)
[2019-11-16] MEDS: FUROSEMIDE 20 MG TABLET GT SCH (08:35)
[2019-11-16] MEDS: SODIUM HYPOCHLORITE 0.125% (QUARTER STRENGTH) 473 ML BOTTLE TP SCH ×2 (08:35→20:37)
[2019-11-16] MEDS: HYDROGEN PEROXIDE 3% 118 ML BOTTLE TP SCH ×2 (09:00→20:37)
[2019-11-16] MEDS: CEFEPIME HCL 2 G in IV DEXTROSE 5% 100 ML IV SCH ×2 (09:55→21:24)
--- NOTE | 2019-11-16 17:00 | NUR ---
SEEN BY LUIS DANIEL WeldonD0 AND WITH СВЕТЛАНАO.
--- NOTE | 2019-11-16 20:15 | NUR ---
PT REMAIN ON CONTINUOUS VENT, TRACH CARE DONE. TRACH IN PLACED AND SECURED WITH TRACH TIE. BACK UP TRACH AND AMBU BAG AT BEDSIDE. GARCIA CHANGED. SUCTION PRN. VENT CHECKED, ALARMS WORKING WELL AND AUDIBLE. NO DISTRESS NOTED AT THIS TIME. WILL CONTINUE TO MONITOR.
[2019-11-16 20:21] VITALS: BP 133/68
[2019-11-16] MEDS: ACIDOPHILUS/BULGARICUS CHEW TAB GT SCH (20:36)
[2019-11-16] MEDS: ASCORBIC ACID 500 MG TABLET PO SCH (20:36)
--- NOTE | 2019-11-16 21:33 | NUR ---
Afebrile, on Cefepime IV for sacral wound osteomylitis, no adverse reactions noted, sacral wound with ongoing treatment, no signs of any distress, turned and repositioned, kept clean and comfortable.
[2019-11-17] MEDS: ARGININE/GLUTAMINE/CALCIUM BMB 1 EACH POWD.PACK GT SCH ×2 (05:13→17:00)
[2019-11-17] MEDS: PROTEIN SUPPLEMENT (PROSTAT) 30 ML LIQUID GT SCH ×3 (05:13→22:09)
[2019-11-17] MEDS: POLYVINYL ALCOHOL OPHT DROPS 15 ML BOTTLE EACHEYE SCH ×3 (05:13→22:09)
[2019-11-17 06:51] LABS: BASOPHILS # (AUTO) 0.1 K/uL (0.0-8.0); BASOPHILS % (AUTO) 1.2 % (0.0-2.0); EOSINOPHILS # (AUTO) 0.1 K/uL (0.0-0.7); EOSINOPHILS % (AUTO) 3.3 % (0.0-7.0); HEMATOCRIT 38.4 % (31.2-41.9); HEMOGLOBIN 12.5 g/dL (10.9-14.3); LYMPHOCYTES # (AUTO) 1.4 K/uL (20.0-40.0); LYMPHOCYTES % (AUTO) 31.8 % (20.5-51.5); MEAN CORPUSCULAR HEMOGLOBIN 30.4 uug (24.7-32.8); MEAN CORPUSCULAR HGB CONC 33 g/dL (32.3-35.6); MEAN CORPUSCULAR VOLUME 93.5 fL (75.5-95.3); MONOCYTES # (AUTO) 0.6 K/uL (2.0-10.0); MONOCYTES % (AUTO) 13.1 % (0.0-11.0); NEUTROPHILS # (AUTO) 2.3 K/uL (1.8-8.9); NEUTROPHILS % (AUTO) 50.6 % (38.5-71.5); PLATELET COUNT (AUTO) 83 K/uL (179-408); WHITE BLOOD COUNT (AUTO) 4.5 K/uL (3.8-11.8)
[2019-11-17 07:04] LABS: BILIRUBIN,TOTAL 0.3 mg/dL (0.2-1.0); CREATININE 0.6 mg/dL (0.6-1.3); POTASSIUM 4.5 mmol/L (3.5-5.1); TOTAL PROTEIN, SERUM 7.9 g/dL (6.4-8.2)
[2019-11-17 07:55] VITALS: BP 126/54
[2019-11-17] MEDS: HYDROGEN PEROXIDE 3% 118 ML BOTTLE TP SCH ×2 (08:20→19:26)
[2019-11-17] MEDS: POTASSIUM CHLORIDE 40 MEQ/30 ML LIQUID UDC GT SCH (08:29)
[2019-11-17] MEDS: FAMOTIDINE 20 MG TABLET GT SCH ×2 (08:29→21:00)
[2019-11-17] MEDS: levETIRAcetam 500 MG/5 ML LIQUID UDC GT SCH ×2 (08:29→21:00)
[2019-11-17] MEDS: FUROSEMIDE 20 MG TABLET GT SCH (08:29)
[2019-11-17] MEDS: DIGOXIN 125 MCG TABLET GT SCH (08:29)
[2019-11-17] MEDS: Z GUARD REMEDY PASTE 57 GM TUBE TOP SCH ×2 (08:30→21:00)
[2019-11-17] MEDS: NYSTATIN CREAM 30 GM TUBE TP SCH ×2 (08:30→21:00)
[2019-11-17] MEDS: THERAHONEY GEL 1.5 OZ TUBE TOP SCH ×2 (08:30→21:00)
[2019-11-17] MEDS: SODIUM HYPOCHLORITE 0.125% (QUARTER STRENGTH) 473 ML BOTTLE TP SCH ×2 (08:30→21:00)
[2019-11-17] MEDS: TRIAMCINOLONE ACET 0.1% CREAM 15 GM TUBE TP SCH ×2 (08:30→21:00)
[2019-11-17] MEDS: NORMAL SALINE NASAL 45 ML BOTTLE NS SCH (08:30)
[2019-11-17] MEDS: CEFEPIME HCL 2 G in IV DEXTROSE 5% 100 ML IV SCH ×2 (09:10→21:00)
[2019-11-17 10:51] LABS: EOSINOPHILS % (MANUAL) 2 % (0-8); LYMPHOCYTES % (MANUAL) 38 % (20-40); MONOCYTES % (MANUAL) 11 % (2-10); NEUTROPHILS % (MANUAL) 49 % (42-75)
[2019-11-17] MEDS: GLUCERNA 1.2 1000ML LIQUID GT PRN (17:00)
[2019-11-17 20:16] VITALS: BP 136/70
[2019-11-17] MEDS: ACIDOPHILUS/BULGARICUS CHEW TAB GT SCH (21:00)
[2019-11-17] MEDS: ASCORBIC ACID 500 MG TABLET PO SCH (21:00)
[2019-11-18] MEDS: ARGININE/GLUTAMINE/CALCIUM BMB 1 EACH POWD.PACK GT SCH ×2 (05:29→17:26)
[2019-11-18] MEDS: PROTEIN SUPPLEMENT (PROSTAT) 30 ML LIQUID GT SCH ×3 (05:29→21:18)
[2019-11-18] MEDS: POLYVINYL ALCOHOL OPHT DROPS 15 ML BOTTLE EACHEYE SCH ×3 (05:29→21:18)
[2019-11-18 08:00] VITALS: BP 124/60
[2019-11-18] MEDS: FUROSEMIDE 20 MG TABLET GT SCH (08:12)
[2019-11-18] MEDS: FAMOTIDINE 20 MG TABLET GT SCH ×2 (08:12→21:17)
[2019-11-18] MEDS: DIGOXIN 125 MCG TABLET GT SCH (08:12)
[2019-11-18] MEDS: levETIRAcetam 500 MG/5 ML LIQUID UDC GT SCH ×2 (08:12→21:17)
[2019-11-18] MEDS: POTASSIUM CHLORIDE 40 MEQ/30 ML LIQUID UDC GT SCH (08:12)
[2019-11-18] MEDS: NORMAL SALINE NASAL 45 ML BOTTLE NS SCH (08:13)
[2019-11-18] MEDS: Z GUARD REMEDY PASTE 57 GM TUBE TOP SCH ×2 (08:14→21:18)
--- NOTE | 2019-11-18 08:25 | NUR ---
MD NOTIFIED RE ABDOMINAL OPEN SKIN, PERINEAL RASHES WITH NEW ORDERS NOTED AND CARRIED OUT. FAMILY NOTIFIED.
[2019-11-18] MEDS: THERAHONEY GEL 1.5 OZ TUBE TOP SCH ×2 (09:00→21:18)
[2019-11-18] MEDS: SODIUM HYPOCHLORITE 0.125% (QUARTER STRENGTH) 473 ML BOTTLE TP SCH ×2 (09:00→21:18)
[2019-11-18] MEDS: TRIAMCINOLONE ACET 0.1% CREAM 15 GM TUBE TP SCH ×2 (09:00→21:18)
[2019-11-18] MEDS: NYSTATIN CREAM 30 GM TUBE TP SCH ×2 (09:00→21:18)
[2019-11-18] MEDS: HYDROGEN PEROXIDE 3% 118 ML BOTTLE TP SCH ×2 (09:19→21:45)
[2019-11-18] MEDS: CEFEPIME HCL 2 G in IV DEXTROSE 5% 100 ML IV SCH ×2 (09:39→21:02)
[2019-11-18] MEDS: NEOMY/BACITRAC/POLYMI OINT 28.35 GM TUBE TP SCH (13:35)
[2019-11-18] MEDS: NYSTATIN/TRIAMCINOLONE CREAM 15 GM TUBE TP SCH (13:35)
[2019-11-18 20:17] VITALS: BP 129/77
[2019-11-18] MEDS: ACIDOPHILUS/BULGARICUS CHEW TAB GT SCH (21:17)
[2019-11-18] MEDS: ASCORBIC ACID 500 MG TABLET PO SCH (21:18)
[2019-11-19] MEDS: GLUCERNA 1.2 1000ML LIQUID GT PRN (00:43)
--- NOTE | 2019-11-19 01:24 | NUR ---
continue on cefepime 2gm iv for sacral wound osteomyelitis, afebrile, no adverse reaction noted, right upper arm midline patent, flushed per protocol, no respiratory distress noted.
[2019-11-19] MEDS: ARGININE/GLUTAMINE/CALCIUM BMB 1 EACH POWD.PACK GT SCH ×2 (05:11→17:06)
[2019-11-19] MEDS: PROTEIN SUPPLEMENT (PROSTAT) 30 ML LIQUID GT SCH ×3 (05:11→21:27)
[2019-11-19] MEDS: POLYVINYL ALCOHOL OPHT DROPS 15 ML BOTTLE EACHEYE SCH ×3 (05:11→21:21)
[2019-11-19 08:00] VITALS: BP 119/64
[2019-11-19] MEDS: HYDROGEN PEROXIDE 3% 118 ML BOTTLE TP SCH ×2 (08:06→21:45)
[2019-11-19] MEDS: ACETAMINOPHEN 650 MG/20.3 ML LIQUID UDC GT PRN (08:44)
[2019-11-19] MEDS: levETIRAcetam 500 MG/5 ML LIQUID UDC GT SCH ×2 (09:07→21:18)
[2019-11-19] MEDS: FUROSEMIDE 20 MG TABLET GT SCH (09:08)
[2019-11-19] MEDS: DIGOXIN 125 MCG TABLET GT SCH (09:08)
[2019-11-19] MEDS: FAMOTIDINE 20 MG TABLET GT SCH ×2 (09:08→21:19)
[2019-11-19] MEDS: POTASSIUM CHLORIDE 40 MEQ/30 ML LIQUID UDC GT SCH (09:09)
[2019-11-19] MEDS: Z GUARD REMEDY PASTE 57 GM TUBE TOP SCH ×2 (09:10→21:20)
[2019-11-19] MEDS: SODIUM HYPOCHLORITE 0.125% (QUARTER STRENGTH) 473 ML BOTTLE TP SCH ×2 (09:10→21:20)
[2019-11-19] MEDS: NORMAL SALINE NASAL 45 ML BOTTLE NS SCH (09:10)
[2019-11-19] MEDS: TRIAMCINOLONE ACET 0.1% CREAM 15 GM TUBE TP SCH ×2 (09:10→21:20)
[2019-11-19] MEDS: THERAHONEY GEL 1.5 OZ TUBE TOP SCH ×2 (09:10→21:20)
[2019-11-19] MEDS: NYSTATIN/TRIAMCINOLONE CREAM 15 GM TUBE TP SCH ×2 (09:10→21:20)
[2019-11-19] MEDS: NYSTATIN CREAM 30 GM TUBE TP SCH ×2 (09:11→21:20)
[2019-11-19] MEDS: NEOMY/BACITRAC/POLYMI OINT 28.35 GM TUBE TP SCH ×2 (09:11→21:20)
[2019-11-19] MEDS: CEFEPIME HCL 2 G in IV DEXTROSE 5% 100 ML IV SCH ×2 (09:19→21:56)
--- NOTE | 2019-11-19 13:12 | NUR ---
PT. ON DIURETIC AND WHEN URINATING URINE POOLS ABOVE HER LEGS DUE TO LEGS TOO CLOSE ,AND KEPT DRY POSSIBLE ,PT. ON AIR MATTRESS ,AND UNABLE TO TOLERATE F/C SEEN IN THE PAST SHE PUSHES OUT F/C WHEN COUGHING WITH BALLOON INFLATED.
--- NOTE | 2019-11-19 18:21 | NUR ---
SheebaRobert's daughter notified regarding the Covid 19 results negative.
[2019-11-19 20:00] VITALS: BP 110/58
[2019-11-19] MEDS: ACIDOPHILUS/BULGARICUS CHEW TAB GT SCH (21:18)
[2019-11-19] MEDS: ASCORBIC ACID 500 MG TABLET PO SCH (21:19)
[2019-11-20] MEDS: GLUCERNA 1.2 1000ML LIQUID GT PRN (04:05)
[2019-11-20] MEDS: POLYVINYL ALCOHOL OPHT DROPS 15 ML BOTTLE EACHEYE SCH ×3 (05:28→21:41)
[2019-11-20] MEDS: ARGININE/GLUTAMINE/CALCIUM BMB 1 EACH POWD.PACK GT SCH ×2 (05:28→18:24)
[2019-11-20] MEDS: PROTEIN SUPPLEMENT (PROSTAT) 30 ML LIQUID GT SCH ×3 (05:28→21:41)
[2019-11-20] MEDS: ACETAMINOPHEN 650 MG/20.3 ML LIQUID UDC GT PRN ×2 (07:45→08:44)
[2019-11-20 08:00] VITALS: BP 118/65
[2019-11-20] MEDS: HYDROGEN PEROXIDE 3% 118 ML BOTTLE TP SCH ×2 (08:08→21:44)
[2019-11-20] MEDS: CEFEPIME HCL 2 G in IV DEXTROSE 5% 100 ML IV SCH ×2 (08:25→20:49)
[2019-11-20] MEDS: levETIRAcetam 500 MG/5 ML LIQUID UDC GT SCH ×2 (08:37→21:39)
[2019-11-20] MEDS: DIGOXIN 125 MCG TABLET GT SCH (08:39)
[2019-11-20] MEDS: FAMOTIDINE 20 MG TABLET GT SCH ×2 (08:40→21:39)
[2019-11-20] MEDS: FUROSEMIDE 20 MG TABLET GT SCH (08:40)
[2019-11-20] MEDS: POTASSIUM CHLORIDE 40 MEQ/30 ML LIQUID UDC GT SCH (08:42)
[2019-11-20] MEDS: Z GUARD REMEDY PASTE 57 GM TUBE TOP SCH ×2 (08:42→21:40)
[2019-11-20] MEDS: NORMAL SALINE NASAL 45 ML BOTTLE NS SCH (08:42)
[2019-11-20] MEDS: NEOMY/BACITRAC/POLYMI OINT 28.35 GM TUBE TP SCH ×2 (08:43→21:41)
[2019-11-20] MEDS: NYSTATIN CREAM 30 GM TUBE TP SCH ×2 (08:43→21:41)
[2019-11-20] MEDS: SODIUM HYPOCHLORITE 0.125% (QUARTER STRENGTH) 473 ML BOTTLE TP SCH ×2 (08:43→21:41)
[2019-11-20] MEDS: TRIAMCINOLONE ACET 0.1% CREAM 15 GM TUBE TP SCH ×2 (08:43→21:41)
[2019-11-20] MEDS: THERAHONEY GEL 1.5 OZ TUBE TOP SCH ×2 (08:43→21:40)
[2019-11-20] MEDS: NYSTATIN/TRIAMCINOLONE CREAM 15 GM TUBE TP SCH ×2 (08:43→21:41)
[2019-11-20 20:00] VITALS: BP 126/54
[2019-11-20] MEDS: ACIDOPHILUS/BULGARICUS CHEW TAB GT SCH (21:39)
[2019-11-20] MEDS: ASCORBIC ACID 500 MG TABLET PO SCH (21:40)
[2019-11-21] MEDS: ARGININE/GLUTAMINE/CALCIUM BMB 1 EACH POWD.PACK GT SCH ×2 (05:39→17:06)
[2019-11-21] MEDS: POLYVINYL ALCOHOL OPHT DROPS 15 ML BOTTLE EACHEYE SCH ×3 (05:39→21:35)
[2019-11-21] MEDS: PROTEIN SUPPLEMENT (PROSTAT) 30 ML LIQUID GT SCH ×3 (05:39→21:35)
[2019-11-21] MEDS: GLUCERNA 1.2 1000ML LIQUID GT PRN (06:30)
[2019-11-21] MEDS: HYDROGEN PEROXIDE 3% 118 ML BOTTLE TP SCH ×2 (07:21→21:36)
[2019-11-21 07:58] VITALS: BP 117/59
[2019-11-21] MEDS: levETIRAcetam 500 MG/5 ML LIQUID UDC GT SCH ×2 (08:32→21:30)
[2019-11-21] MEDS: FUROSEMIDE 20 MG TABLET GT SCH (08:33)
[2019-11-21] MEDS: DIGOXIN 125 MCG TABLET GT SCH (08:33)
[2019-11-21] MEDS: FAMOTIDINE 20 MG TABLET GT SCH ×2 (08:33→21:30)
[2019-11-21] MEDS: THERAHONEY GEL 1.5 OZ TUBE TOP SCH ×2 (08:34→21:34)
[2019-11-21] MEDS: POTASSIUM CHLORIDE 40 MEQ/30 ML LIQUID UDC GT SCH (08:34)
[2019-11-21] MEDS: SODIUM HYPOCHLORITE 0.125% (QUARTER STRENGTH) 473 ML BOTTLE TP SCH ×2 (08:34→21:34)
[2019-11-21] MEDS: NORMAL SALINE NASAL 45 ML BOTTLE NS SCH (08:34)
[2019-11-21] MEDS: Z GUARD REMEDY PASTE 57 GM TUBE TOP SCH ×2 (08:34→21:34)
[2019-11-21] MEDS: NEOMY/BACITRAC/POLYMI OINT 28.35 GM TUBE TP SCH ×2 (08:35→21:34)
[2019-11-21] MEDS: NYSTATIN/TRIAMCINOLONE CREAM 15 GM TUBE TP SCH ×2 (08:35→21:34)
[2019-11-21] MEDS: NYSTATIN CREAM 30 GM TUBE TP SCH ×2 (08:35→21:34)
[2019-11-21] MEDS: TRIAMCINOLONE ACET 0.1% CREAM 15 GM TUBE TP SCH ×2 (08:35→21:34)
[2019-11-21] MEDS: CEFEPIME HCL 2 G in IV DEXTROSE 5% 100 ML IV SCH ×2 (09:00→20:56)
[2019-11-21] MEDS: ACETAMINOPHEN 650 MG/20.3 ML LIQUID UDC GT PRN (11:29)
--- NOTE | 2019-11-21 16:31 | NUR ---
SEEN AND EXAMINED BY DR. VALLE WITH NEW ORDERS, NOTED AND CARRIED OUT.
[2019-11-21] MEDS: ACIDOPHILUS/BULGARICUS CHEW TAB GT SCH (21:29)
[2019-11-21] MEDS: ASCORBIC ACID 500 MG TABLET PO SCH (21:31)
[2019-11-21 22:55] VITALS: BP 134/74
[2019-11-22] MEDS: POLYVINYL ALCOHOL OPHT DROPS 15 ML BOTTLE EACHEYE SCH ×3 (05:43→21:05)
[2019-11-22] MEDS: PROTEIN SUPPLEMENT (PROSTAT) 30 ML LIQUID GT SCH ×3 (05:43→21:05)
[2019-11-22] MEDS: ARGININE/GLUTAMINE/CALCIUM BMB 1 EACH POWD.PACK GT SCH ×2 (05:43→17:53)
[2019-11-22 07:47] VITALS: BP 125/67
[2019-11-22] MEDS: CEFEPIME HCL 2 G in IV DEXTROSE 5% 100 ML IV SCH ×2 (08:21→20:53)
[2019-11-22] MEDS: levETIRAcetam 500 MG/5 ML LIQUID UDC GT SCH ×2 (08:25→20:52)
[2019-11-22] MEDS: FUROSEMIDE 20 MG TABLET GT SCH (08:25)
[2019-11-22] MEDS: POTASSIUM CHLORIDE 40 MEQ/30 ML LIQUID UDC GT SCH (08:27)
[2019-11-22] MEDS: FAMOTIDINE 20 MG TABLET GT SCH ×2 (08:27→20:52)
[2019-11-22] MEDS: DIGOXIN 125 MCG TABLET GT SCH (08:27)
[2019-11-22] MEDS: Z GUARD REMEDY PASTE 57 GM TUBE TOP SCH ×2 (08:28→20:52)
[2019-11-22] MEDS: NORMAL SALINE NASAL 45 ML BOTTLE NS SCH (08:28)
[2019-11-22] MEDS: HYDROGEN PEROXIDE 3% 118 ML BOTTLE TP SCH ×2 (09:00→21:00)
[2019-11-22] MEDS: THERAHONEY GEL 1.5 OZ TUBE TOP SCH ×2 (09:00→20:52)
[2019-11-22] MEDS: NEOMY/BACITRAC/POLYMI OINT 28.35 GM TUBE TP SCH ×2 (09:45→20:52)
[2019-11-22] MEDS: SODIUM HYPOCHLORITE 0.125% (QUARTER STRENGTH) 473 ML BOTTLE TP SCH ×2 (09:45→20:52)
[2019-11-22] MEDS: NYSTATIN/TRIAMCINOLONE CREAM 15 GM TUBE TP SCH ×2 (09:50→20:52)
[2019-11-22] MEDS: TRIAMCINOLONE ACET 0.1% CREAM 15 GM TUBE TP SCH ×2 (09:50→20:52)
[2019-11-22] MEDS: NYSTATIN CREAM 30 GM TUBE TP SCH ×2 (09:50→20:52)
[2019-11-22 20:00] VITALS: BP 124/58
[2019-11-22] MEDS: ASCORBIC ACID 500 MG TABLET PO SCH (20:52)
[2019-11-22] MEDS: ACIDOPHILUS/BULGARICUS CHEW TAB GT SCH (20:52)
[2019-11-23] MEDS: PROTEIN SUPPLEMENT (PROSTAT) 30 ML LIQUID GT SCH ×3 (05:20→22:13)
[2019-11-23] MEDS: POLYVINYL ALCOHOL OPHT DROPS 15 ML BOTTLE EACHEYE SCH ×3 (05:20→22:13)
[2019-11-23] MEDS: ARGININE/GLUTAMINE/CALCIUM BMB 1 EACH POWD.PACK GT SCH ×2 (05:20→18:02)
[2019-11-23 07:47] VITALS: BP 117/62
[2019-11-23] MEDS: HYDROGEN PEROXIDE 3% 118 ML BOTTLE TP SCH ×2 (08:05→21:23)
[2019-11-23] MEDS: levETIRAcetam 500 MG/5 ML LIQUID UDC GT SCH ×2 (08:18→20:53)
[2019-11-23] MEDS: DIGOXIN 125 MCG TABLET GT SCH (08:19)
[2019-11-23] MEDS: FUROSEMIDE 20 MG TABLET GT SCH (08:19)
[2019-11-23] MEDS: FAMOTIDINE 20 MG TABLET GT SCH ×2 (08:20→20:53)
[2019-11-23] MEDS: POTASSIUM CHLORIDE 40 MEQ/30 ML LIQUID UDC GT SCH (08:20)
[2019-11-23] MEDS: Z GUARD REMEDY PASTE 57 GM TUBE TOP SCH ×2 (08:22→20:53)
[2019-11-23] MEDS: NORMAL SALINE NASAL 45 ML BOTTLE NS SCH (08:22)
[2019-11-23] MEDS: NYSTATIN CREAM 30 GM TUBE TP SCH ×2 (09:00→20:54)
[2019-11-23] MEDS: NEOMY/BACITRAC/POLYMI OINT 28.35 GM TUBE TP SCH ×2 (09:00→20:54)
[2019-11-23] MEDS: CEFEPIME HCL 2 G in IV DEXTROSE 5% 100 ML IV SCH ×2 (09:29→21:04)
[2019-11-23] MEDS: TRIAMCINOLONE ACET 0.1% CREAM 15 GM TUBE TP SCH ×2 (09:55→20:54)
[2019-11-23] MEDS: THERAHONEY GEL 1.5 OZ TUBE TOP SCH ×2 (09:55→20:54)
[2019-11-23] MEDS: NYSTATIN/TRIAMCINOLONE CREAM 15 GM TUBE TP SCH ×2 (09:55→20:54)
[2019-11-23] MEDS: SODIUM HYPOCHLORITE 0.125% (QUARTER STRENGTH) 473 ML BOTTLE TP SCH ×2 (09:55→20:54)
[2019-11-23] MEDS: GLUCERNA 1.2 1000ML LIQUID GT PRN (14:59)
[2019-11-23] MEDS: ACIDOPHILUS/BULGARICUS CHEW TAB GT SCH (20:53)
[2019-11-23] MEDS: ASCORBIC ACID 500 MG TABLET PO SCH (20:53)
[2019-11-23 22:02] VITALS: BP 130/57
[2019-11-24] MEDS: PROTEIN SUPPLEMENT (PROSTAT) 30 ML LIQUID GT SCH ×3 (06:16→21:08)
[2019-11-24] MEDS: ARGININE/GLUTAMINE/CALCIUM BMB 1 EACH POWD.PACK GT SCH ×2 (06:16→17:25)
[2019-11-24] MEDS: POLYVINYL ALCOHOL OPHT DROPS 15 ML BOTTLE EACHEYE SCH ×3 (06:16→21:08)
[2019-11-24 06:17] LABS: BASOPHILS % (AUTO) 0.8 % (0.0-2.0); EOSINOPHILS # (AUTO) 0.1 K/uL (0.0-0.7); EOSINOPHILS % (AUTO) 3.7 % (0.0-7.0); HEMATOCRIT 37.5 % (31.2-41.9); HEMOGLOBIN 12.2 g/dL (10.9-14.3); LYMPHOCYTES # (AUTO) 1.4 K/uL (20.0-40.0); LYMPHOCYTES % (AUTO) 35.8 % (20.5-51.5); MEAN CORPUSCULAR HEMOGLOBIN 30.4 uug (24.7-32.8); MEAN CORPUSCULAR HGB CONC 33 g/dL (32.3-35.6); MEAN CORPUSCULAR VOLUME 93.5 fL (75.5-95.3); MONOCYTES # (AUTO) 0.5 K/uL (2.0-10.0); MONOCYTES % (AUTO) 12.4 % (0.0-11.0); NEUTROPHILS # (AUTO) 1.9 K/uL (1.8-8.9); NEUTROPHILS % (AUTO) 47.3 % (38.5-71.5); PLATELET COUNT (AUTO) 91 K/uL (179-408); RED BLOOD CELL COUNT(AUTO) 4.02 MIL/uL (3.63-4.92)
[2019-11-24 06:23] LABS: BILIRUBIN,TOTAL 0.4 mg/dL (0.2-1.0); CREATININE 0.6 mg/dL (0.6-1.3); POTASSIUM 3.8 mmol/L (3.5-5.1); TOTAL PROTEIN, SERUM 7.6 g/dL (6.4-8.2)
[2019-11-24 07:34] VITALS: BP 113/62
[2019-11-24] MEDS: CEFEPIME HCL 2 G in IV DEXTROSE 5% 100 ML IV SCH ×2 (08:36→21:12)
[2019-11-24] MEDS: HYDROGEN PEROXIDE 3% 118 ML BOTTLE TP SCH ×2 (09:37→21:04)
[2019-11-24] MEDS: FAMOTIDINE 20 MG TABLET GT SCH ×2 (09:38→21:07)
[2019-11-24] MEDS: NORMAL SALINE NASAL 45 ML BOTTLE NS SCH (09:38)
[2019-11-24] MEDS: POTASSIUM CHLORIDE 40 MEQ/30 ML LIQUID UDC GT SCH (09:38)
[2019-11-24] MEDS: levETIRAcetam 500 MG/5 ML LIQUID UDC GT SCH ×2 (09:38→21:06)
[2019-11-24] MEDS: Z GUARD REMEDY PASTE 57 GM TUBE TOP SCH ×2 (09:38→21:08)
[2019-11-24] MEDS: FUROSEMIDE 20 MG TABLET GT SCH (09:38)
[2019-11-24] MEDS: DIGOXIN 125 MCG TABLET GT SCH (09:38)
[2019-11-24] MEDS: TRIAMCINOLONE ACET 0.1% CREAM 15 GM TUBE TP SCH ×2 (09:39→21:08)
[2019-11-24] MEDS: SODIUM HYPOCHLORITE 0.125% (QUARTER STRENGTH) 473 ML BOTTLE TP SCH ×2 (09:39→21:08)
[2019-11-24] MEDS: NEOMY/BACITRAC/POLYMI OINT 28.35 GM TUBE TP SCH ×2 (09:39→21:08)
[2019-11-24] MEDS: NYSTATIN CREAM 30 GM TUBE TP SCH ×2 (09:39→21:08)
[2019-11-24] MEDS: THERAHONEY GEL 1.5 OZ TUBE TOP SCH ×2 (09:39→21:08)
[2019-11-24] MEDS: NYSTATIN/TRIAMCINOLONE CREAM 15 GM TUBE TP SCH ×2 (09:39→21:08)
[2019-11-24 12:21] LABS: BAND % (MANUAL) 2 % (0-10); EOSINOPHILS % (MANUAL) 4 % (0-8); LYMPHOCYTES % (MANUAL) 30 % (20-40); MONOCYTES % (MANUAL) 17 % (2-10); NEUTROPHILS % (MANUAL) 47 % (42-75)
--- NOTE | 2019-11-24 16:26 | NUR ---
Covid19 test done.
[2019-11-24] MEDS: GLUCERNA 1.2 1000ML LIQUID GT PRN (17:38)
[2019-11-24] MEDS: ACIDOPHILUS/BULGARICUS CHEW TAB GT SCH (21:06)
[2019-11-24] MEDS: ASCORBIC ACID 500 MG TABLET PO SCH (21:07)
[2019-11-24 21:59] VITALS: BP 133/58
[2019-11-25] MEDS: PROTEIN SUPPLEMENT (PROSTAT) 30 ML LIQUID GT SCH ×3 (05:19→21:00)
[2019-11-25] MEDS: ARGININE/GLUTAMINE/CALCIUM BMB 1 EACH POWD.PACK GT SCH ×2 (05:19→17:28)
[2019-11-25] MEDS: POLYVINYL ALCOHOL OPHT DROPS 15 ML BOTTLE EACHEYE SCH ×3 (05:19→21:00)
[2019-11-25 07:42] VITALS: BP 121/55
[2019-11-25] MEDS: levETIRAcetam 500 MG/5 ML LIQUID UDC GT SCH ×2 (08:32→20:57)
[2019-11-25] MEDS: POTASSIUM CHLORIDE 40 MEQ/30 ML LIQUID UDC GT SCH (08:33)
[2019-11-25] MEDS: NORMAL SALINE NASAL 45 ML BOTTLE NS SCH (08:33)
[2019-11-25] MEDS: FUROSEMIDE 20 MG TABLET GT SCH (08:33)
[2019-11-25] MEDS: THERAHONEY GEL 1.5 OZ TUBE TOP SCH ×2 (08:33→20:58)
[2019-11-25] MEDS: TRIAMCINOLONE ACET 0.1% CREAM 15 GM TUBE TP SCH ×2 (08:33→20:59)
[2019-11-25] MEDS: DIGOXIN 125 MCG TABLET GT SCH (08:33)
[2019-11-25] MEDS: FAMOTIDINE 20 MG TABLET GT SCH ×2 (08:33→20:57)
[2019-11-25] MEDS: Z GUARD REMEDY PASTE 57 GM TUBE TOP SCH ×2 (08:33→20:58)
[2019-11-25] MEDS: SODIUM HYPOCHLORITE 0.125% (QUARTER STRENGTH) 473 ML BOTTLE TP SCH ×2 (08:33→20:59)
[2019-11-25] MEDS: NYSTATIN CREAM 30 GM TUBE TP SCH ×2 (08:34→20:59)
[2019-11-25] MEDS: NYSTATIN/TRIAMCINOLONE CREAM 15 GM TUBE TP SCH ×2 (08:34→20:59)
[2019-11-25] MEDS: NEOMY/BACITRAC/POLYMI OINT 28.35 GM TUBE TP SCH ×2 (08:35→20:59)
[2019-11-25] MEDS: CEFEPIME HCL 2 G in IV DEXTROSE 5% 100 ML IV SCH ×2 (08:52→20:38)
[2019-11-25] MEDS: HYDROGEN PEROXIDE 3% 118 ML BOTTLE TP SCH ×2 (09:17→21:20)
--- NOTE | 2019-11-25 16:09 | NUR ---
NOTIFIED RESPONSIBLE CONSTITUTION PARTY, HARLEY COLEY OF POSSIBLE COVID 19 EXPOSURE AND TESTING PLAN FOR CURRENT AND NEXT WEEK MANDATED. NOTIFIED ALSO OF PT'S NEGATIVE RESULTS FOR COVID 19 TESTING DONE ON 11/24/2019. RESPONSIBLE CONSTITUTION PARTY VERBALIZED GOOD UNDERSTANDING.
[2019-11-25] MEDS: GLUCERNA 1.2 1000ML LIQUID GT PRN (17:28)
[2019-11-25 20:43] VITALS: BP 127/61
[2019-11-25] MEDS: ACIDOPHILUS/BULGARICUS CHEW TAB GT SCH (20:57)
[2019-11-25] MEDS: ASCORBIC ACID 500 MG TABLET PO SCH (20:58)
[2019-11-26] MEDS: POLYVINYL ALCOHOL OPHT DROPS 15 ML BOTTLE EACHEYE SCH ×3 (05:58→22:00)
[2019-11-26] MEDS: PROTEIN SUPPLEMENT (PROSTAT) 30 ML LIQUID GT SCH ×3 (05:58→22:00)
[2019-11-26] MEDS: ARGININE/GLUTAMINE/CALCIUM BMB 1 EACH POWD.PACK GT SCH ×2 (05:58→14:34)
[2019-11-26 07:32] VITALS: BP 119/74
[2019-11-26] MEDS: levETIRAcetam 500 MG/5 ML LIQUID UDC GT SCH ×2 (08:31→20:30)
[2019-11-26] MEDS: SODIUM HYPOCHLORITE 0.125% (QUARTER STRENGTH) 473 ML BOTTLE TP SCH ×2 (08:39→20:32)
[2019-11-26] MEDS: DIGOXIN 125 MCG TABLET GT SCH (08:39)
[2019-11-26] MEDS: Z GUARD REMEDY PASTE 57 GM TUBE TOP SCH ×2 (08:39→20:32)
[2019-11-26] MEDS: POTASSIUM CHLORIDE 40 MEQ/30 ML LIQUID UDC GT SCH (08:39)
[2019-11-26] MEDS: THERAHONEY GEL 1.5 OZ TUBE TOP SCH ×2 (08:39→20:32)
[2019-11-26] MEDS: FAMOTIDINE 20 MG TABLET GT SCH ×2 (08:39→20:31)
[2019-11-26] MEDS: FUROSEMIDE 20 MG TABLET GT SCH (08:39)
[2019-11-26] MEDS: NORMAL SALINE NASAL 45 ML BOTTLE NS SCH (08:39)
[2019-11-26] MEDS: NYSTATIN/TRIAMCINOLONE CREAM 15 GM TUBE TP SCH ×2 (08:40→20:32)
[2019-11-26] MEDS: TRIAMCINOLONE ACET 0.1% CREAM 15 GM TUBE TP SCH ×2 (08:40→20:32)
[2019-11-26] MEDS: NYSTATIN CREAM 30 GM TUBE TP SCH ×2 (08:41→20:32)
[2019-11-26] MEDS: NEOMY/BACITRAC/POLYMI OINT 28.35 GM TUBE TP SCH ×2 (08:41→20:33)
[2019-11-26] MEDS: HYDROGEN PEROXIDE 3% 118 ML BOTTLE TP SCH ×2 (09:39→21:45)
[2019-11-26] MEDS: CEFEPIME HCL 2 G in IV DEXTROSE 5% 100 ML IV SCH ×2 (09:55→21:24)
--- NOTE | 2019-11-26 16:44 | NUR ---
Continue on IVATB For osteomilitis,no adverse reaction noted,midline on the R upper arm intact.
[2019-11-26] MEDS: GLUCERNA 1.2 1000ML LIQUID GT PRN (18:14)
--- NOTE | 2019-11-26 19:42 | NUR ---
New tx for R and L axilla and R and L underbreast redness.
[2019-11-26 20:00] VITALS: BP 125/70
[2019-11-26] MEDS: ACIDOPHILUS/BULGARICUS CHEW TAB GT SCH (20:30)
[2019-11-26] MEDS: ASCORBIC ACID 500 MG TABLET PO SCH (20:31)
[2019-11-26] MEDS: NYSTATIN POWDER 15 GM BOTTLE TP SCH (20:32)
[2019-11-27] MEDS: PROTEIN SUPPLEMENT (PROSTAT) 30 ML LIQUID GT SCH ×3 (05:43→21:27)
[2019-11-27] MEDS: ARGININE/GLUTAMINE/CALCIUM BMB 1 EACH POWD.PACK GT SCH ×2 (05:43→17:21)
[2019-11-27] MEDS: POLYVINYL ALCOHOL OPHT DROPS 15 ML BOTTLE EACHEYE SCH ×3 (05:43→21:27)
--- NOTE | 2019-11-27 06:02 | NUR ---
continue on cefepime 2gm iv for sacral wound osteomyelitis, right upper arm midline patent, flushed per protocol.
[2019-11-27 08:00] VITALS: BP 121/70
[2019-11-27] MEDS: FUROSEMIDE 20 MG TABLET GT SCH (08:50)
[2019-11-27] MEDS: SODIUM HYPOCHLORITE 0.125% (QUARTER STRENGTH) 473 ML BOTTLE TP SCH ×2 (08:50→21:24)
[2019-11-27] MEDS: TRIAMCINOLONE ACET 0.1% CREAM 15 GM TUBE TP SCH ×2 (08:50→21:25)
[2019-11-27] MEDS: NORMAL SALINE NASAL 45 ML BOTTLE NS SCH (08:50)
[2019-11-27] MEDS: FAMOTIDINE 20 MG TABLET GT SCH ×2 (08:50→21:23)
[2019-11-27] MEDS: POTASSIUM CHLORIDE 40 MEQ/30 ML LIQUID UDC GT SCH (08:50)
[2019-11-27] MEDS: Z GUARD REMEDY PASTE 57 GM TUBE TOP SCH ×2 (08:50→21:24)
[2019-11-27] MEDS: THERAHONEY GEL 1.5 OZ TUBE TOP SCH ×2 (08:50→21:24)
[2019-11-27] MEDS: DIGOXIN 125 MCG TABLET GT SCH (08:50)
[2019-11-27] MEDS: levETIRAcetam 500 MG/5 ML LIQUID UDC GT SCH ×2 (08:50→21:22)
[2019-11-27] MEDS: NYSTATIN CREAM 30 GM TUBE TP SCH ×2 (08:51→21:29)
[2019-11-27] MEDS: NEOMY/BACITRAC/POLYMI OINT 28.35 GM TUBE TP SCH ×2 (08:51→21:26)
[2019-11-27] MEDS: NYSTATIN/TRIAMCINOLONE CREAM 15 GM TUBE TP SCH ×2 (08:51→21:25)
[2019-11-27] MEDS: NYSTATIN POWDER 15 GM BOTTLE TP SCH ×2 (08:51→21:26)
[2019-11-27] MEDS: CEFEPIME HCL 2 G in IV DEXTROSE 5% 100 ML IV SCH ×2 (09:21→21:20)
[2019-11-27] MEDS: HYDROGEN PEROXIDE 3% 118 ML BOTTLE TP SCH ×2 (09:22→21:11)
[2019-11-27 20:55] VITALS: BP 134/68
[2019-11-27] MEDS: ACIDOPHILUS/BULGARICUS CHEW TAB GT SCH (21:21)
[2019-11-27] MEDS: ASCORBIC ACID 500 MG TABLET PO SCH (21:23)
--- NOTE | 2019-11-28 04:33 | NUR ---
continue on cefepime 2gm iv for osteomyelitis, no adverse reaction noted, right upper arm midline patent, flushed per protocol.
[2019-11-28] MEDS: GLUCERNA 1.2 1000ML LIQUID GT PRN (04:56)
[2019-11-28] MEDS: ARGININE/GLUTAMINE/CALCIUM BMB 1 EACH POWD.PACK GT SCH ×2 (05:15→17:14)
[2019-11-28] MEDS: POLYVINYL ALCOHOL OPHT DROPS 15 ML BOTTLE EACHEYE SCH ×3 (05:15→21:03)
[2019-11-28] MEDS: PROTEIN SUPPLEMENT (PROSTAT) 30 ML LIQUID GT SCH ×3 (05:15→21:03)
[2019-11-28 08:00] VITALS: BP 120/60
[2019-11-28] MEDS: Z GUARD REMEDY PASTE 57 GM TUBE TOP SCH ×2 (08:37→20:55)
[2019-11-28] MEDS: levETIRAcetam 500 MG/5 ML LIQUID UDC GT SCH ×2 (08:37→20:54)
[2019-11-28] MEDS: FUROSEMIDE 20 MG TABLET GT SCH (08:37)
[2019-11-28] MEDS: NORMAL SALINE NASAL 45 ML BOTTLE NS SCH (08:37)
[2019-11-28] MEDS: FAMOTIDINE 20 MG TABLET GT SCH ×2 (08:37→20:54)
[2019-11-28] MEDS: DIGOXIN 125 MCG TABLET GT SCH (08:37)
[2019-11-28] MEDS: POTASSIUM CHLORIDE 40 MEQ/30 ML LIQUID UDC GT SCH (08:37)
[2019-11-28] MEDS: NYSTATIN/TRIAMCINOLONE CREAM 15 GM TUBE TP SCH ×2 (08:38→20:56)
[2019-11-28] MEDS: NYSTATIN POWDER 15 GM BOTTLE TP SCH ×2 (08:38→20:56)
[2019-11-28] MEDS: THERAHONEY GEL 1.5 OZ TUBE TOP SCH ×2 (08:38→20:56)
[2019-11-28] MEDS: NYSTATIN CREAM 30 GM TUBE TP SCH ×2 (08:38→20:56)
[2019-11-28] MEDS: NEOMY/BACITRAC/POLYMI OINT 28.35 GM TUBE TP SCH ×2 (08:38→20:56)
[2019-11-28] MEDS: SODIUM HYPOCHLORITE 0.125% (QUARTER STRENGTH) 473 ML BOTTLE TP SCH ×2 (08:38→20:56)
[2019-11-28] MEDS: TRIAMCINOLONE ACET 0.1% CREAM 15 GM TUBE TP SCH ×2 (08:38→20:56)
[2019-11-28] MEDS: CEFEPIME HCL 2 G in IV DEXTROSE 5% 100 ML IV SCH ×2 (09:00→21:31)
[2019-11-28] MEDS: HYDROGEN PEROXIDE 3% 118 ML BOTTLE TP SCH ×2 (10:00→10:10)
--- NOTE | 2019-11-28 17:00 | NUR ---
SEEN BY LUIS DANEIL Garcia.Leif) AND WITH LUIS.
[2019-11-28 20:00] VITALS: BP 120/62
[2019-11-28] MEDS: ACIDOPHILUS/BULGARICUS CHEW TAB GT SCH (20:54)
[2019-11-28] MEDS: ASCORBIC ACID 500 MG TABLET PO SCH (20:55)
[2019-11-29] MEDS: POLYVINYL ALCOHOL OPHT DROPS 15 ML BOTTLE EACHEYE SCH ×3 (05:14→21:52)
[2019-11-29] MEDS: ARGININE/GLUTAMINE/CALCIUM BMB 1 EACH POWD.PACK GT SCH ×2 (05:14→18:31)
[2019-11-29] MEDS: PROTEIN SUPPLEMENT (PROSTAT) 30 ML LIQUID GT SCH ×3 (05:14→21:52)
[2019-11-29 07:33] VITALS: BP 145/71
[2019-11-29] MEDS: levETIRAcetam 500 MG/5 ML LIQUID UDC GT SCH ×2 (08:40→20:48)
[2019-11-29] MEDS: FAMOTIDINE 20 MG TABLET GT SCH ×2 (08:42→20:48)
[2019-11-29] MEDS: THERAHONEY GEL 1.5 OZ TUBE TOP SCH ×2 (08:42→20:49)
[2019-11-29] MEDS: FUROSEMIDE 20 MG TABLET GT SCH (08:42)
[2019-11-29] MEDS: DIGOXIN 125 MCG TABLET GT SCH (08:42)
[2019-11-29] MEDS: Z GUARD REMEDY PASTE 57 GM TUBE TOP SCH ×2 (08:42→20:49)
[2019-11-29] MEDS: POTASSIUM CHLORIDE 40 MEQ/30 ML LIQUID UDC GT SCH (08:42)
[2019-11-29] MEDS: NORMAL SALINE NASAL 45 ML BOTTLE NS SCH (08:42)
[2019-11-29] MEDS: SODIUM HYPOCHLORITE 0.125% (QUARTER STRENGTH) 473 ML BOTTLE TP SCH ×2 (08:43→20:49)
[2019-11-29] MEDS: NYSTATIN CREAM 30 GM TUBE TP SCH ×2 (08:43→20:49)
[2019-11-29] MEDS: NYSTATIN/TRIAMCINOLONE CREAM 15 GM TUBE TP SCH ×2 (08:43→20:49)
[2019-11-29] MEDS: TRIAMCINOLONE ACET 0.1% CREAM 15 GM TUBE TP SCH ×2 (08:43→20:49)
[2019-11-29] MEDS: NYSTATIN POWDER 15 GM BOTTLE TP SCH ×2 (08:43→20:49)
[2019-11-29] MEDS: NEOMY/BACITRAC/POLYMI OINT 28.35 GM TUBE TP SCH ×2 (08:43→20:49)
[2019-11-29] MEDS: CEFEPIME HCL 2 G in IV DEXTROSE 5% 100 ML IV SCH ×2 (09:57→21:27)
[2019-11-29] MEDS: HYDROGEN PEROXIDE 3% 118 ML BOTTLE TP SCH ×2 (10:10→21:28)
[2019-11-29] MEDS: GLUCERNA 1.2 1000ML LIQUID GT PRN (10:34)
[2019-11-29] MEDS: ACIDOPHILUS/BULGARICUS CHEW TAB GT SCH (20:48)
[2019-11-29] MEDS: ASCORBIC ACID 500 MG TABLET PO SCH (20:49)
[2019-11-29] MEDS: ACETAMINOPHEN 650 MG/20.3 ML LIQUID UDC GT PRN (21:00)
[2019-11-29 22:00] VITALS: BP 125/71
[2019-11-30] MEDS: POLYVINYL ALCOHOL OPHT DROPS 15 ML BOTTLE EACHEYE SCH ×3 (05:33→21:08)
[2019-11-30] MEDS: PROTEIN SUPPLEMENT (PROSTAT) 30 ML LIQUID GT SCH ×3 (05:33→21:09)
[2019-11-30] MEDS: ARGININE/GLUTAMINE/CALCIUM BMB 1 EACH POWD.PACK GT SCH ×2 (05:33→18:27)
[2019-11-30 07:41] VITALS: BP 117/63
[2019-11-30] MEDS: HYDROGEN PEROXIDE 3% 118 ML BOTTLE TP SCH ×2 (08:41→21:42)
[2019-11-30] MEDS: CEFEPIME HCL 2 G in IV DEXTROSE 5% 100 ML IV SCH ×2 (08:51→20:30)
[2019-11-30] MEDS: levETIRAcetam 500 MG/5 ML LIQUID UDC GT SCH ×2 (09:05→20:52)
[2019-11-30] MEDS: POTASSIUM CHLORIDE 40 MEQ/30 ML LIQUID UDC GT SCH (09:07)
[2019-11-30] MEDS: DIGOXIN 125 MCG TABLET GT SCH (09:07)
[2019-11-30] MEDS: FAMOTIDINE 20 MG TABLET GT SCH ×2 (09:07→20:52)
[2019-11-30] MEDS: FUROSEMIDE 20 MG TABLET GT SCH (09:07)
[2019-11-30] MEDS: NORMAL SALINE NASAL 45 ML BOTTLE NS SCH (09:08)
[2019-11-30] MEDS: Z GUARD REMEDY PASTE 57 GM TUBE TOP SCH ×2 (09:08→20:52)
[2019-11-30] MEDS: NYSTATIN CREAM 30 GM TUBE TP SCH ×2 (09:09→20:53)
[2019-11-30] MEDS: SODIUM HYPOCHLORITE 0.125% (QUARTER STRENGTH) 473 ML BOTTLE TP SCH ×2 (09:09→20:52)
[2019-11-30] MEDS: TRIAMCINOLONE ACET 0.1% CREAM 15 GM TUBE TP SCH ×2 (09:09→20:53)
[2019-11-30] MEDS: THERAHONEY GEL 1.5 OZ TUBE TOP SCH ×2 (09:09→20:52)
[2019-11-30] MEDS: NYSTATIN/TRIAMCINOLONE CREAM 15 GM TUBE TP SCH ×2 (09:09→20:53)
[2019-11-30] MEDS: NEOMY/BACITRAC/POLYMI OINT 28.35 GM TUBE TP SCH ×2 (09:10→20:53)
[2019-11-30] MEDS: NYSTATIN POWDER 15 GM BOTTLE TP SCH ×2 (09:10→20:53)
[2019-11-30] MEDS: ASCORBIC ACID 500 MG TABLET PO SCH (20:52)
[2019-11-30] MEDS: ACIDOPHILUS/BULGARICUS CHEW TAB GT SCH (20:52)
[2019-11-30 22:11] VITALS: BP 127/67
[2019-12-01] MEDS: POLYVINYL ALCOHOL OPHT DROPS 15 ML BOTTLE EACHEYE SCH ×3 (05:19→21:55)
[2019-12-01] MEDS: PROTEIN SUPPLEMENT (PROSTAT) 30 ML LIQUID GT SCH ×3 (05:19→21:55)
[2019-12-01] MEDS: ARGININE/GLUTAMINE/CALCIUM BMB 1 EACH POWD.PACK GT SCH ×2 (05:19→17:30)
[2019-12-01 07:01] LABS: BASOPHILS % (AUTO) 0.7 % (0.0-2.0); EOSINOPHILS # (AUTO) 0.2 K/uL (0.0-0.7); EOSINOPHILS % (AUTO) 4.1 % (0.0-7.0); HEMOGLOBIN 13.1 g/dL (10.9-14.3); LYMPHOCYTES # (AUTO) 1.4 K/uL (20.0-40.0); LYMPHOCYTES % (AUTO) 37.4 % (20.5-51.5); MEAN CORPUSCULAR HEMOGLOBIN 30.5 uug (24.7-32.8); MEAN CORPUSCULAR HGB CONC 33 g/dL (32.3-35.6); MEAN CORPUSCULAR VOLUME 93.3 fL (75.5-95.3); MONOCYTES # (AUTO) 0.5 K/uL (2.0-10.0); MONOCYTES % (AUTO) 13.2 % (0.0-11.0); NEUTROPHILS # (AUTO) 1.6 K/uL (1.8-8.9); NEUTROPHILS % (AUTO) 44.6 % (38.5-71.5); PLATELET COUNT (AUTO) 89 K/uL (179-408); RED BLOOD CELL COUNT(AUTO) 4.28 MIL/uL (3.63-4.92); WHITE BLOOD COUNT (AUTO) 3.6 K/uL (3.8-11.8)
[2019-12-01 07:36] LABS: BILIRUBIN,TOTAL 0.3 mg/dL (0.2-1.0); CREATININE 0.7 mg/dL (0.6-1.3); POTASSIUM 4.1 mmol/L (3.5-5.1); TOTAL PROTEIN, SERUM 8.1 g/dL (6.4-8.2)
[2019-12-01 07:46] VITALS: BP 133/73
[2019-12-01] MEDS: FUROSEMIDE 20 MG TABLET GT SCH (08:51)
[2019-12-01] MEDS: FAMOTIDINE 20 MG TABLET GT SCH ×2 (08:51→21:52)
[2019-12-01] MEDS: DIGOXIN 125 MCG TABLET GT SCH (08:51)
[2019-12-01] MEDS: levETIRAcetam 500 MG/5 ML LIQUID UDC GT SCH ×2 (08:51→21:52)
[2019-12-01] MEDS: Z GUARD REMEDY PASTE 57 GM TUBE TOP SCH ×2 (08:52→21:52)
[2019-12-01] MEDS: SODIUM HYPOCHLORITE 0.125% (QUARTER STRENGTH) 473 ML BOTTLE TP SCH ×2 (08:52→21:54)
[2019-12-01] MEDS: TRIAMCINOLONE ACET 0.1% CREAM 15 GM TUBE TP SCH ×2 (08:52→21:54)
[2019-12-01] MEDS: POTASSIUM CHLORIDE 40 MEQ/30 ML LIQUID UDC GT SCH (08:52)
[2019-12-01] MEDS: NYSTATIN CREAM 30 GM TUBE TP SCH ×2 (08:52→21:54)
[2019-12-01] MEDS: NYSTATIN/TRIAMCINOLONE CREAM 15 GM TUBE TP SCH ×2 (08:52→21:54)
[2019-12-01] MEDS: THERAHONEY GEL 1.5 OZ TUBE TOP SCH ×2 (08:52→21:54)
[2019-12-01] MEDS: NORMAL SALINE NASAL 45 ML BOTTLE NS SCH (08:52)
[2019-12-01] MEDS: NEOMY/BACITRAC/POLYMI OINT 28.35 GM TUBE TP SCH ×2 (08:53→21:54)
[2019-12-01] MEDS: NYSTATIN POWDER 15 GM BOTTLE TP SCH ×2 (08:53→21:54)
[2019-12-01] MEDS: CEFEPIME HCL 2 G in IV DEXTROSE 5% 100 ML IV SCH ×2 (09:00→20:21)
[2019-12-01] MEDS: HYDROGEN PEROXIDE 3% 118 ML BOTTLE TP SCH ×2 (09:04→21:05)
[2019-12-01 16:37] LABS: EOSINOPHILS % (MANUAL) 6 % (0-8); LYMPHOCYTES % (MANUAL) 43 % (20-40); MONOCYTES % (MANUAL) 2 % (2-10); NEUTROPHILS % (MANUAL) 49 % (42-75)
[2019-12-01] MEDS: ASCORBIC ACID 500 MG TABLET PO SCH (21:52)
[2019-12-01] MEDS: ACIDOPHILUS/BULGARICUS CHEW TAB GT SCH (21:52)
[2019-12-01 22:28] VITALS: BP 113/59
[2019-12-02] MEDS: PROTEIN SUPPLEMENT (PROSTAT) 30 ML LIQUID GT SCH ×3 (06:09→21:53)
[2019-12-02] MEDS: ARGININE/GLUTAMINE/CALCIUM BMB 1 EACH POWD.PACK GT SCH ×2 (06:09→17:25)
[2019-12-02] MEDS: POLYVINYL ALCOHOL OPHT DROPS 15 ML BOTTLE EACHEYE SCH ×3 (06:09→21:53)
[2019-12-02 07:26] VITALS: BP 125/63
[2019-12-02] MEDS: POTASSIUM CHLORIDE 40 MEQ/30 ML LIQUID UDC GT SCH (08:24)
[2019-12-02] MEDS: FUROSEMIDE 20 MG TABLET GT SCH (08:24)
[2019-12-02] MEDS: DIGOXIN 125 MCG TABLET GT SCH (08:24)
[2019-12-02] MEDS: levETIRAcetam 500 MG/5 ML LIQUID UDC GT SCH ×2 (08:24→21:52)
[2019-12-02] MEDS: FAMOTIDINE 20 MG TABLET GT SCH ×2 (08:24→21:52)
[2019-12-02] MEDS: Z GUARD REMEDY PASTE 57 GM TUBE TOP SCH ×2 (08:25→21:52)
[2019-12-02] MEDS: THERAHONEY GEL 1.5 OZ TUBE TOP SCH ×2 (08:25→21:52)
[2019-12-02] MEDS: NORMAL SALINE NASAL 45 ML BOTTLE NS SCH (08:25)
[2019-12-02] MEDS: NYSTATIN/TRIAMCINOLONE CREAM 15 GM TUBE TP SCH ×2 (08:26→21:53)
[2019-12-02] MEDS: NEOMY/BACITRAC/POLYMI OINT 28.35 GM TUBE TP SCH (08:26)
[2019-12-02] MEDS: TRIAMCINOLONE ACET 0.1% CREAM 15 GM TUBE TP SCH ×2 (08:26→21:53)
[2019-12-02] MEDS: SODIUM HYPOCHLORITE 0.125% (QUARTER STRENGTH) 473 ML BOTTLE TP SCH ×2 (08:26→21:53)
[2019-12-02] MEDS: NYSTATIN POWDER 15 GM BOTTLE TP SCH ×2 (08:26→21:53)
[2019-12-02] MEDS: NYSTATIN CREAM 30 GM TUBE TP SCH ×2 (08:26→21:53)
[2019-12-02] MEDS: CEFEPIME HCL 2 G in IV DEXTROSE 5% 100 ML IV SCH ×2 (08:38→21:22)
[2019-12-02] MEDS: HYDROGEN PEROXIDE 3% 118 ML BOTTLE TP SCH ×2 (09:27→19:21)
--- NOTE | 2019-12-02 15:30 | NUR ---
NEW ORDER FOR COVID 19 TEST CARRIED OUT.
--- NOTE | 2019-12-02 16:13 | NUR ---
Called Sheeba pt's daughter made aware of the covid test to be done to the pt.
[2019-12-02 20:00] VITALS: BP 137/67
[2019-12-02] MEDS: ASCORBIC ACID 500 MG TABLET PO SCH (21:52)
[2019-12-02] MEDS: ACIDOPHILUS/BULGARICUS CHEW TAB GT SCH (21:52)
[2019-12-03] MEDS: PROTEIN SUPPLEMENT (PROSTAT) 30 ML LIQUID GT SCH ×3 (06:26→21:38)
[2019-12-03] MEDS: POLYVINYL ALCOHOL OPHT DROPS 15 ML BOTTLE EACHEYE SCH ×3 (06:26→21:38)
[2019-12-03] MEDS: ARGININE/GLUTAMINE/CALCIUM BMB 1 EACH POWD.PACK GT SCH ×2 (06:26→17:05)
[2019-12-03 07:29] VITALS: BP 132/62
[2019-12-03] MEDS: NORMAL SALINE NASAL 45 ML BOTTLE NS SCH (08:32)
[2019-12-03] MEDS: Z GUARD REMEDY PASTE 57 GM TUBE TOP SCH ×2 (08:32→21:38)
[2019-12-03] MEDS: FAMOTIDINE 20 MG TABLET GT SCH ×2 (08:32→21:37)
[2019-12-03] MEDS: levETIRAcetam 500 MG/5 ML LIQUID UDC GT SCH ×2 (08:32→21:37)
[2019-12-03] MEDS: DIGOXIN 125 MCG TABLET GT SCH (08:32)
[2019-12-03] MEDS: POTASSIUM CHLORIDE 40 MEQ/30 ML LIQUID UDC GT SCH (08:32)
[2019-12-03] MEDS: FUROSEMIDE 20 MG TABLET GT SCH (08:32)
[2019-12-03] MEDS: SODIUM HYPOCHLORITE 0.125% (QUARTER STRENGTH) 473 ML BOTTLE TP SCH ×2 (08:33→21:38)
[2019-12-03] MEDS: NYSTATIN CREAM 30 GM TUBE TP SCH ×2 (08:33→21:38)
[2019-12-03] MEDS: NYSTATIN POWDER 15 GM BOTTLE TP SCH ×2 (08:33→21:38)
[2019-12-03] MEDS: THERAHONEY GEL 1.5 OZ TUBE TOP SCH ×2 (08:33→21:38)
[2019-12-03] MEDS: TRIAMCINOLONE ACET 0.1% CREAM 15 GM TUBE TP SCH ×2 (08:33→21:38)
[2019-12-03] MEDS: NYSTATIN/TRIAMCINOLONE CREAM 15 GM TUBE TP SCH ×2 (08:33→21:38)
[2019-12-03] MEDS: CEFEPIME HCL 2 G in IV DEXTROSE 5% 100 ML IV SCH ×2 (09:07→21:42)
[2019-12-03] MEDS: HYDROGEN PEROXIDE 3% 118 ML BOTTLE TP SCH ×2 (09:38→21:23)
--- NOTE | 2019-12-03 15:43 | NUR ---
INTERDISCIPLINARY PLAN OF CARE CONFERENCE was held today. Patient's daughter was not available to participate in the meeting. Dr. Murguia and the Interdisciplinary Team reviewed the current plan of care in detail. RN reported on patient's medical condition, current treatment, and ongoing wound care. See RN IDT conference notes. No major changes in medical condition were reported by nursing or by other disciplines. See all other disciplines IDT notes and physician's progress notes for additional details.
[2019-12-03 20:00] VITALS: BP 122/53
[2019-12-03] MEDS: ACIDOPHILUS/BULGARICUS CHEW TAB GT SCH (21:36)
[2019-12-03] MEDS: ASCORBIC ACID 500 MG TABLET PO SCH (21:38)
[2019-12-04] MEDS: POLYVINYL ALCOHOL OPHT DROPS 15 ML BOTTLE EACHEYE SCH ×3 (05:10→21:03)
[2019-12-04] MEDS: ARGININE/GLUTAMINE/CALCIUM BMB 1 EACH POWD.PACK GT SCH ×2 (05:10→17:48)
[2019-12-04] MEDS: PROTEIN SUPPLEMENT (PROSTAT) 30 ML LIQUID GT SCH ×3 (05:10→21:03)
[2019-12-04 07:46] VITALS: BP 120/63
[2019-12-04] MEDS: NYSTATIN POWDER 15 GM BOTTLE TP SCH ×2 (09:00→21:03)
[2019-12-04] MEDS: TRIAMCINOLONE ACET 0.1% CREAM 15 GM TUBE TP SCH ×2 (09:00→21:03)
[2019-12-04] MEDS: DIGOXIN 125 MCG TABLET GT SCH (09:01)
[2019-12-04] MEDS: levETIRAcetam 500 MG/5 ML LIQUID UDC GT SCH ×2 (09:01→21:02)
[2019-12-04] MEDS: FUROSEMIDE 20 MG TABLET GT SCH (09:01)
[2019-12-04] MEDS: Z GUARD REMEDY PASTE 57 GM TUBE TOP SCH ×2 (09:02→21:02)
[2019-12-04] MEDS: FAMOTIDINE 20 MG TABLET GT SCH ×2 (09:02→21:02)
[2019-12-04] MEDS: POTASSIUM CHLORIDE 40 MEQ/30 ML LIQUID UDC GT SCH (09:02)
[2019-12-04] MEDS: ACETAMINOPHEN 650 MG/20.3 ML LIQUID UDC GT PRN (09:02)
[2019-12-04] MEDS: NORMAL SALINE NASAL 45 ML BOTTLE NS SCH (09:02)
[2019-12-04] MEDS: CEFEPIME HCL 2 G in IV DEXTROSE 5% 100 ML IV SCH ×2 (09:07→21:00)
[2019-12-04] MEDS: SODIUM HYPOCHLORITE 0.125% (QUARTER STRENGTH) 473 ML BOTTLE TP SCH ×2 (09:35→21:03)
[2019-12-04] MEDS: THERAHONEY GEL 1.5 OZ TUBE TOP SCH ×2 (09:35→21:02)
[2019-12-04] MEDS: NYSTATIN/TRIAMCINOLONE CREAM 15 GM TUBE TP SCH ×2 (09:35→21:03)
[2019-12-04] MEDS: NYSTATIN CREAM 30 GM TUBE TP SCH ×2 (09:35→21:03)
[2019-12-04] MEDS: HYDROGEN PEROXIDE 3% 118 ML BOTTLE TP SCH ×2 (09:45→21:25)
[2019-12-04] MEDS: GLUCERNA 1.2 1000ML LIQUID GT PRN (17:48)
--- NOTE | 2019-12-04 18:35 | NUR ---
Sheeba Jones's daughter notified COVID 19 results is negative.
[2019-12-04 20:00] VITALS: BP 120/58
[2019-12-04] MEDS: ASCORBIC ACID 500 MG TABLET PO SCH (21:02)
[2019-12-04] MEDS: ACIDOPHILUS/BULGARICUS CHEW TAB GT SCH (21:02)
[2019-12-05] MEDS: ARGININE/GLUTAMINE/CALCIUM BMB 1 EACH POWD.PACK GT SCH ×2 (05:31→17:32)
[2019-12-05] MEDS: PROTEIN SUPPLEMENT (PROSTAT) 30 ML LIQUID GT SCH ×3 (05:31→22:00)
[2019-12-05] MEDS: POLYVINYL ALCOHOL OPHT DROPS 15 ML BOTTLE EACHEYE SCH ×3 (05:31→22:00)
[2019-12-05 07:28] VITALS: BP 118/70
[2019-12-05] MEDS: levETIRAcetam 500 MG/5 ML LIQUID UDC GT SCH ×2 (08:07→20:04)
[2019-12-05] MEDS: DIGOXIN 125 MCG TABLET GT SCH (08:11)
[2019-12-05] MEDS: FAMOTIDINE 20 MG TABLET GT SCH ×2 (08:12→20:04)
[2019-12-05] MEDS: POTASSIUM CHLORIDE 40 MEQ/30 ML LIQUID UDC GT SCH (08:12)
[2019-12-05] MEDS: FUROSEMIDE 20 MG TABLET GT SCH (08:12)
[2019-12-05] MEDS: Z GUARD REMEDY PASTE 57 GM TUBE TOP SCH ×2 (08:13→20:04)
[2019-12-05] MEDS: NORMAL SALINE NASAL 45 ML BOTTLE NS SCH (08:13)
[2019-12-05] MEDS: ACETAMINOPHEN 650 MG/20.3 ML LIQUID UDC GT PRN (08:13)
[2019-12-05] MEDS: NYSTATIN/TRIAMCINOLONE CREAM 15 GM TUBE TP SCH ×2 (08:35→20:05)
[2019-12-05] MEDS: THERAHONEY GEL 1.5 OZ TUBE TOP SCH ×2 (08:35→20:04)
[2019-12-05] MEDS: NYSTATIN CREAM 30 GM TUBE TP SCH ×2 (08:35→20:05)
[2019-12-05] MEDS: SODIUM HYPOCHLORITE 0.125% (QUARTER STRENGTH) 473 ML BOTTLE TP SCH ×2 (08:35→20:04)
[2019-12-05] MEDS: TRIAMCINOLONE ACET 0.1% CREAM 15 GM TUBE TP SCH ×2 (08:35→20:04)
[2019-12-05] MEDS: NYSTATIN POWDER 15 GM BOTTLE TP SCH ×2 (09:00→20:05)
[2019-12-05] MEDS: CEFEPIME HCL 2 G in IV DEXTROSE 5% 100 ML IV SCH ×2 (09:00→20:27)
[2019-12-05] MEDS: HYDROGEN PEROXIDE 3% 118 ML BOTTLE TP SCH ×2 (09:00→20:04)
[2019-12-05] MEDS: GLUCERNA 1.2 1000ML LIQUID GT PRN (17:32)
[2019-12-05] MEDS: ASCORBIC ACID 500 MG TABLET PO SCH (20:04)
[2019-12-05] MEDS: ACIDOPHILUS/BULGARICUS CHEW TAB GT SCH (20:04)
[2019-12-05 20:33] VITALS: BP 147/68
[2019-12-06] MEDS: POLYVINYL ALCOHOL OPHT DROPS 15 ML BOTTLE EACHEYE SCH ×3 (05:03→21:19)
[2019-12-06] MEDS: ARGININE/GLUTAMINE/CALCIUM BMB 1 EACH POWD.PACK GT SCH ×2 (05:03→17:42)
[2019-12-06] MEDS: PROTEIN SUPPLEMENT (PROSTAT) 30 ML LIQUID GT SCH ×3 (05:03→21:19)
[2019-12-06 07:55] VITALS: BP 136/66
[2019-12-06] MEDS: FUROSEMIDE 20 MG TABLET GT SCH (08:53)
[2019-12-06] MEDS: levETIRAcetam 500 MG/5 ML LIQUID UDC GT SCH ×2 (08:53→21:19)
[2019-12-06] MEDS: FAMOTIDINE 20 MG TABLET GT SCH ×2 (08:53→21:19)
[2019-12-06] MEDS: DIGOXIN 125 MCG TABLET GT SCH (08:53)
[2019-12-06] MEDS: POTASSIUM CHLORIDE 40 MEQ/30 ML LIQUID UDC GT SCH (08:53)
[2019-12-06] MEDS: NYSTATIN/TRIAMCINOLONE CREAM 15 GM TUBE TP SCH ×2 (08:54→21:19)
[2019-12-06] MEDS: NYSTATIN CREAM 30 GM TUBE TP SCH ×2 (08:54→21:19)
[2019-12-06] MEDS: NYSTATIN POWDER 15 GM BOTTLE TP SCH ×2 (08:54→21:19)
[2019-12-06] MEDS: TRIAMCINOLONE ACET 0.1% CREAM 15 GM TUBE TP SCH ×2 (08:54→21:19)
[2019-12-06] MEDS: NORMAL SALINE NASAL 45 ML BOTTLE NS SCH (08:54)
[2019-12-06] MEDS: Z GUARD REMEDY PASTE 57 GM TUBE TOP SCH ×2 (08:54→21:19)
[2019-12-06] MEDS: THERAHONEY GEL 1.5 OZ TUBE TOP SCH ×2 (08:54→21:19)
[2019-12-06] MEDS: SODIUM HYPOCHLORITE 0.125% (QUARTER STRENGTH) 473 ML BOTTLE TP SCH ×2 (08:54→21:19)
[2019-12-06] MEDS: HYDROGEN PEROXIDE 3% 118 ML BOTTLE TP SCH ×2 (09:00→21:45)
[2019-12-06] MEDS: CEFEPIME HCL 2 G in IV DEXTROSE 5% 100 ML IV SCH ×2 (09:42→21:03)
[2019-12-06] MEDS: GLUCERNA 1.2 1000ML LIQUID GT PRN (20:00)
[2019-12-06] MEDS: ASCORBIC ACID 500 MG TABLET PO SCH (21:19)
[2019-12-06] MEDS: ACIDOPHILUS/BULGARICUS CHEW TAB GT SCH (21:19)
[2019-12-06 22:26] VITALS: BP 137/66
[2019-12-07] MEDS: POLYVINYL ALCOHOL OPHT DROPS 15 ML BOTTLE EACHEYE SCH ×3 (05:03→21:05)
[2019-12-07] MEDS: ARGININE/GLUTAMINE/CALCIUM BMB 1 EACH POWD.PACK GT SCH ×2 (05:03→18:02)
[2019-12-07] MEDS: PROTEIN SUPPLEMENT (PROSTAT) 30 ML LIQUID GT SCH ×3 (05:03→21:05)
--- NOTE | 2019-12-07 06:08 | NUR ---
continue on cefepime 2gm iv for sacral wound osteomyelitis, right upper arm midline patent, flushed per protocol.
[2019-12-07 07:41] VITALS: BP 130/63
[2019-12-07] MEDS: POTASSIUM CHLORIDE 40 MEQ/30 ML LIQUID UDC GT SCH (08:12)
[2019-12-07] MEDS: DIGOXIN 125 MCG TABLET GT SCH (08:12)
[2019-12-07] MEDS: NORMAL SALINE NASAL 45 ML BOTTLE NS SCH (08:12)
[2019-12-07] MEDS: FAMOTIDINE 20 MG TABLET GT SCH ×2 (08:12→21:05)
[2019-12-07] MEDS: SODIUM HYPOCHLORITE 0.125% (QUARTER STRENGTH) 473 ML BOTTLE TP SCH ×2 (08:12→21:05)
[2019-12-07] MEDS: THERAHONEY GEL 1.5 OZ TUBE TOP SCH ×2 (08:12→21:05)
[2019-12-07] MEDS: FUROSEMIDE 20 MG TABLET GT SCH (08:12)
[2019-12-07] MEDS: Z GUARD REMEDY PASTE 57 GM TUBE TOP SCH ×2 (08:12→21:05)
[2019-12-07] MEDS: levETIRAcetam 500 MG/5 ML LIQUID UDC GT SCH ×2 (08:12→21:05)
[2019-12-07] MEDS: TRIAMCINOLONE ACET 0.1% CREAM 15 GM TUBE TP SCH ×2 (08:13→21:05)
[2019-12-07] MEDS: NYSTATIN CREAM 30 GM TUBE TP SCH ×2 (08:13→21:05)
[2019-12-07] MEDS: NYSTATIN POWDER 15 GM BOTTLE TP SCH ×2 (08:13→21:05)
[2019-12-07] MEDS: NYSTATIN/TRIAMCINOLONE CREAM 15 GM TUBE TP SCH ×2 (08:13→21:05)
[2019-12-07] MEDS: CEFEPIME HCL 2 G in IV DEXTROSE 5% 100 ML IV SCH ×2 (08:57→21:00)
[2019-12-07] MEDS: HYDROGEN PEROXIDE 3% 118 ML BOTTLE TP SCH ×2 (09:00→21:04)
[2019-12-07] MEDS: GLUCERNA 1.2 1000ML LIQUID GT PRN (14:59)
[2019-12-07] MEDS: ACIDOPHILUS/BULGARICUS CHEW TAB GT SCH (21:05)
[2019-12-07] MEDS: ASCORBIC ACID 500 MG TABLET PO SCH (21:05)
[2019-12-07 21:39] VITALS: BP 134/62
--- NOTE | 2019-12-08 04:35 | NUR ---
continue on cefepime 2gm for osteomyelitis, no adverse reaction noted, flushed per protocol.
[2019-12-08] MEDS: ARGININE/GLUTAMINE/CALCIUM BMB 1 EACH POWD.PACK GT SCH ×2 (05:29→17:36)
[2019-12-08] MEDS: PROTEIN SUPPLEMENT (PROSTAT) 30 ML LIQUID GT SCH ×3 (05:29→21:08)
[2019-12-08] MEDS: POLYVINYL ALCOHOL OPHT DROPS 15 ML BOTTLE EACHEYE SCH ×3 (05:29→21:08)
[2019-12-08 06:04] LABS: BASOPHILS % (AUTO) 0.6 % (0.0-2.0); EOSINOPHILS # (AUTO) 0.2 K/uL (0.0-0.7); EOSINOPHILS % (AUTO) 4.3 % (0.0-7.0); HEMATOCRIT 39.2 % (31.2-41.9); LYMPHOCYTES # (AUTO) 1.4 K/uL (20.0-40.0); LYMPHOCYTES % (AUTO) 38.6 % (20.5-51.5); MEAN CORPUSCULAR HEMOGLOBIN 30.7 uug (24.7-32.8); MEAN CORPUSCULAR HGB CONC 33 g/dL (32.3-35.6); MEAN CORPUSCULAR VOLUME 92.9 fL (75.5-95.3); MONOCYTES # (AUTO) 0.5 K/uL (2.0-10.0); MONOCYTES % (AUTO) 12.5 % (0.0-11.0); NEUTROPHILS # (AUTO) 1.6 K/uL (1.8-8.9); RED BLOOD CELL COUNT(AUTO) 4.23 MIL/uL (3.63-4.92); WHITE BLOOD COUNT (AUTO) 3.6 K/uL (3.8-11.8)
[2019-12-08 06:14] LABS: PLATELET COUNT (AUTO) 86 K/uL (179-408)
[2019-12-08 06:20] LABS: BILIRUBIN,TOTAL 0.4 mg/dL (0.2-1.0); CREATININE 0.6 mg/dL (0.6-1.3); POTASSIUM 3.7 mmol/L (3.5-5.1); TOTAL PROTEIN, SERUM 8.1 g/dL (6.4-8.2)
[2019-12-08 07:35] VITALS: BP 129/79
[2019-12-08] MEDS: levETIRAcetam 500 MG/5 ML LIQUID UDC GT SCH ×2 (08:18→21:08)
[2019-12-08] MEDS: DIGOXIN 125 MCG TABLET GT SCH (08:20)
[2019-12-08] MEDS: FUROSEMIDE 20 MG TABLET GT SCH (08:21)
[2019-12-08] MEDS: FAMOTIDINE 20 MG TABLET GT SCH ×2 (08:21→21:08)
[2019-12-08] MEDS: Z GUARD REMEDY PASTE 57 GM TUBE TOP SCH ×2 (08:23→21:08)
[2019-12-08] MEDS: NORMAL SALINE NASAL 45 ML BOTTLE NS SCH (08:23)
[2019-12-08] MEDS: NYSTATIN/TRIAMCINOLONE CREAM 15 GM TUBE TP SCH ×2 (08:23→21:08)
[2019-12-08] MEDS: SODIUM HYPOCHLORITE 0.125% (QUARTER STRENGTH) 473 ML BOTTLE TP SCH ×2 (08:23→21:08)
[2019-12-08] MEDS: POTASSIUM CHLORIDE 40 MEQ/30 ML LIQUID UDC GT SCH (08:23)
[2019-12-08] MEDS: TRIAMCINOLONE ACET 0.1% CREAM 15 GM TUBE TP SCH ×2 (08:23→21:08)
[2019-12-08] MEDS: NYSTATIN CREAM 30 GM TUBE TP SCH ×2 (08:23→21:08)
[2019-12-08] MEDS: THERAHONEY GEL 1.5 OZ TUBE TOP SCH ×2 (08:23→21:08)
[2019-12-08] MEDS: NYSTATIN POWDER 15 GM BOTTLE TP SCH ×2 (08:24→21:08)
[2019-12-08] MEDS: HYDROGEN PEROXIDE 3% 118 ML BOTTLE TP SCH ×2 (09:00→21:12)
[2019-12-08] MEDS: CEFEPIME HCL 2 G in IV DEXTROSE 5% 100 ML IV SCH ×2 (09:19→21:00)
[2019-12-08] MEDS: GLUCERNA 1.2 1000ML LIQUID GT PRN (17:40)
[2019-12-08] MEDS: ASCORBIC ACID 500 MG TABLET PO SCH (21:08)
[2019-12-08] MEDS: ACIDOPHILUS/BULGARICUS CHEW TAB GT SCH (21:08)
[2019-12-08 23:03] VITALS: BP 136/65
[2019-12-09] MEDS: ARGININE/GLUTAMINE/CALCIUM BMB 1 EACH POWD.PACK GT SCH ×2 (05:04→17:16)
[2019-12-09] MEDS: POLYVINYL ALCOHOL OPHT DROPS 15 ML BOTTLE EACHEYE SCH ×3 (05:04→21:38)
[2019-12-09] MEDS: PROTEIN SUPPLEMENT (PROSTAT) 30 ML LIQUID GT SCH ×3 (05:04→21:38)
[2019-12-09 07:43] VITALS: BP 135/64
[2019-12-09] MEDS: CEFEPIME HCL 2 G in IV DEXTROSE 5% 100 ML IV SCH ×2 (08:29→21:00)
[2019-12-09] MEDS: levETIRAcetam 500 MG/5 ML LIQUID UDC GT SCH ×2 (08:46→20:36)
[2019-12-09] MEDS: NYSTATIN POWDER 15 GM BOTTLE TP SCH ×2 (08:47→20:38)
[2019-12-09] MEDS: NORMAL SALINE NASAL 45 ML BOTTLE NS SCH (08:47)
[2019-12-09] MEDS: TRIAMCINOLONE ACET 0.1% CREAM 15 GM TUBE TP SCH ×2 (08:47→21:38)
[2019-12-09] MEDS: SODIUM HYPOCHLORITE 0.125% (QUARTER STRENGTH) 473 ML BOTTLE TP SCH ×2 (08:47→20:38)
[2019-12-09] MEDS: DIGOXIN 125 MCG TABLET GT SCH (08:47)
[2019-12-09] MEDS: POTASSIUM CHLORIDE 40 MEQ/30 ML LIQUID UDC GT SCH (08:47)
[2019-12-09] MEDS: THERAHONEY GEL 1.5 OZ TUBE TOP SCH ×2 (08:47→20:37)
[2019-12-09] MEDS: Z GUARD REMEDY PASTE 57 GM TUBE TOP SCH ×2 (08:47→20:37)
[2019-12-09] MEDS: FAMOTIDINE 20 MG TABLET GT SCH ×2 (08:47→20:36)
[2019-12-09] MEDS: FUROSEMIDE 20 MG TABLET GT SCH (08:47)
[2019-12-09] MEDS: NYSTATIN CREAM 30 GM TUBE TP SCH ×2 (08:47→20:38)
[2019-12-09] MEDS: NYSTATIN/TRIAMCINOLONE CREAM 15 GM TUBE TP SCH (08:47)
[2019-12-09] MEDS: HYDROGEN PEROXIDE 3% 118 ML BOTTLE TP SCH ×2 (09:15→21:05)
[2019-12-09] MEDS: GLUCERNA 1.2 1000ML LIQUID GT PRN (17:16)
[2019-12-09] MEDS: ACIDOPHILUS/BULGARICUS CHEW TAB GT SCH (20:36)
[2019-12-09] MEDS: ASCORBIC ACID 500 MG TABLET PO SCH (20:37)
[2019-12-09 22:50] VITALS: BP 122/65
[2019-12-10] MEDS: PROTEIN SUPPLEMENT (PROSTAT) 30 ML LIQUID GT SCH ×3 (05:52→22:19)
[2019-12-10] MEDS: POLYVINYL ALCOHOL OPHT DROPS 15 ML BOTTLE EACHEYE SCH ×3 (05:52→22:19)
[2019-12-10] MEDS: ARGININE/GLUTAMINE/CALCIUM BMB 1 EACH POWD.PACK GT SCH ×2 (05:52→17:21)
[2019-12-10 07:35] VITALS: BP 136/76
[2019-12-10] MEDS: CEFEPIME HCL 2 G in IV DEXTROSE 5% 100 ML IV SCH ×2 (08:23→21:38)
[2019-12-10] MEDS: levETIRAcetam 500 MG/5 ML LIQUID UDC GT SCH ×2 (08:45→20:19)
[2019-12-10] MEDS: TRIAMCINOLONE ACET 0.1% CREAM 15 GM TUBE TP SCH ×2 (08:46→20:20)
[2019-12-10] MEDS: THERAHONEY GEL 1.5 OZ TUBE TOP SCH ×2 (08:46→20:19)
[2019-12-10] MEDS: SODIUM HYPOCHLORITE 0.125% (QUARTER STRENGTH) 473 ML BOTTLE TP SCH ×2 (08:46→20:20)
[2019-12-10] MEDS: DIGOXIN 125 MCG TABLET GT SCH (08:46)
[2019-12-10] MEDS: NYSTATIN CREAM 30 GM TUBE TP SCH ×2 (08:46→20:20)
[2019-12-10] MEDS: POTASSIUM CHLORIDE 40 MEQ/30 ML LIQUID UDC GT SCH (08:46)
[2019-12-10] MEDS: FUROSEMIDE 20 MG TABLET GT SCH (08:46)
[2019-12-10] MEDS: FAMOTIDINE 20 MG TABLET GT SCH ×2 (08:46→20:19)
[2019-12-10] MEDS: Z GUARD REMEDY PASTE 57 GM TUBE TOP SCH ×2 (08:46→20:19)
[2019-12-10] MEDS: NORMAL SALINE NASAL 45 ML BOTTLE NS SCH (08:46)
[2019-12-10] MEDS: NYSTATIN POWDER 15 GM BOTTLE TP SCH ×2 (08:46→20:20)
[2019-12-10] MEDS: HYDROGEN PEROXIDE 3% 118 ML BOTTLE TP SCH ×2 (08:57→21:33)
[2019-12-10 20:17] VITALS: BP 132/57
[2019-12-10] MEDS: ACIDOPHILUS/BULGARICUS CHEW TAB GT SCH (20:19)
[2019-12-10] MEDS: ASCORBIC ACID 500 MG TABLET PO SCH (20:19)
--- NOTE | 2019-12-10 22:29 | NUR ---
Remains on cefepime 2 gm iv for sacral wound osteomyelitis, right upper arm midline patent, flushed per protocol. Afebrile, wound treatment done as ordered, turned and repositioned, kept clean and comfortable.
[2019-12-11] MEDS: GLUCERNA 1.2 1000ML LIQUID GT PRN
[2019-12-11] MEDS: PROTEIN SUPPLEMENT (PROSTAT) 30 ML LIQUID GT SCH ×3 (06:45→22:57)
[2019-12-11] MEDS: ARGININE/GLUTAMINE/CALCIUM BMB 1 EACH POWD.PACK GT SCH ×2 (06:45→17:44)
[2019-12-11] MEDS: POLYVINYL ALCOHOL OPHT DROPS 15 ML BOTTLE EACHEYE SCH ×3 (06:45→22:57)
[2019-12-11 07:45] VITALS: BP 130/70
[2019-12-11] MEDS: HYDROGEN PEROXIDE 3% 118 ML BOTTLE TP SCH ×2 (08:20→21:00)
[2019-12-11] MEDS: FAMOTIDINE 20 MG TABLET GT SCH ×2 (08:38→20:47)
[2019-12-11] MEDS: DIGOXIN 125 MCG TABLET GT SCH (08:38)
[2019-12-11] MEDS: FUROSEMIDE 20 MG TABLET GT SCH (08:38)
[2019-12-11] MEDS: POTASSIUM CHLORIDE 40 MEQ/30 ML LIQUID UDC GT SCH (08:39)
[2019-12-11] MEDS: THERAHONEY GEL 1.5 OZ TUBE TOP SCH ×2 (08:39→20:48)
[2019-12-11] MEDS: Z GUARD REMEDY PASTE 57 GM TUBE TOP SCH ×2 (08:39→20:48)
[2019-12-11] MEDS: NORMAL SALINE NASAL 45 ML BOTTLE NS SCH (08:39)
[2019-12-11] MEDS: SODIUM HYPOCHLORITE 0.125% (QUARTER STRENGTH) 473 ML BOTTLE TP SCH ×2 (08:40→20:48)
[2019-12-11] MEDS: TRIAMCINOLONE ACET 0.1% CREAM 15 GM TUBE TP SCH ×2 (08:40→20:48)
[2019-12-11] MEDS: NYSTATIN POWDER 15 GM BOTTLE TP SCH ×2 (08:40→20:48)
[2019-12-11] MEDS: NYSTATIN CREAM 30 GM TUBE TP SCH ×2 (08:40→20:48)
[2019-12-11] MEDS: levETIRAcetam 500 MG/5 ML LIQUID UDC GT SCH ×2 (08:45→20:47)
[2019-12-11] MEDS: CEFEPIME HCL 2 G in IV DEXTROSE 5% 100 ML IV SCH ×2 (09:00→21:09)
--- NOTE | 2019-12-11 18:00 | NUR ---
Continue on Ivatb,for osteomilitis on sacral wound ,no adverse reaction noted.
[2019-12-11 20:03] VITALS: BP 127/53
[2019-12-11] MEDS: ASCORBIC ACID 500 MG TABLET PO SCH (20:47)
[2019-12-11] MEDS: ACIDOPHILUS/BULGARICUS CHEW TAB GT SCH (20:47)
--- NOTE | 2019-12-12 01:57 | NUR ---
On cefepime 2 gm iv for sacral wound osteomyelitis, right upper arm midline patent, flushed per protocol. Afebrile, wound treatment done as ordered, turned and repositioned, kept clean and comfortable.
[2019-12-12] MEDS: POLYVINYL ALCOHOL OPHT DROPS 15 ML BOTTLE EACHEYE SCH ×3 (06:36→22:32)
[2019-12-12] MEDS: GLUCERNA 1.2 1000ML LIQUID GT PRN (06:36)
[2019-12-12] MEDS: PROTEIN SUPPLEMENT (PROSTAT) 30 ML LIQUID GT SCH ×3 (06:36→22:32)
[2019-12-12] MEDS: ARGININE/GLUTAMINE/CALCIUM BMB 1 EACH POWD.PACK GT SCH ×2 (06:36→17:03)
[2019-12-12] MEDS: HYDROGEN PEROXIDE 3% 118 ML BOTTLE TP SCH ×2 (07:30→21:03)
[2019-12-12 07:48] VITALS: BP 143/68
[2019-12-12] MEDS: DIGOXIN 125 MCG TABLET GT SCH (08:53)
[2019-12-12] MEDS: levETIRAcetam 500 MG/5 ML LIQUID UDC GT SCH ×2 (08:53→20:49)
[2019-12-12] MEDS: NORMAL SALINE NASAL 45 ML BOTTLE NS SCH (08:54)
[2019-12-12] MEDS: THERAHONEY GEL 1.5 OZ TUBE TOP SCH ×2 (08:54→20:50)
[2019-12-12] MEDS: SODIUM HYPOCHLORITE 0.125% (QUARTER STRENGTH) 473 ML BOTTLE TP SCH ×2 (08:54→20:50)
[2019-12-12] MEDS: FUROSEMIDE 20 MG TABLET GT SCH (08:54)
[2019-12-12] MEDS: TRIAMCINOLONE ACET 0.1% CREAM 15 GM TUBE TP SCH ×2 (08:54→20:50)
[2019-12-12] MEDS: FAMOTIDINE 20 MG TABLET GT SCH ×2 (08:54→20:49)
[2019-12-12] MEDS: Z GUARD REMEDY PASTE 57 GM TUBE TOP SCH ×2 (08:54→20:49)
[2019-12-12] MEDS: POTASSIUM CHLORIDE 40 MEQ/30 ML LIQUID UDC GT SCH (08:54)
[2019-12-12] MEDS: NYSTATIN POWDER 15 GM BOTTLE TP SCH ×2 (08:55→20:50)
[2019-12-12] MEDS: NYSTATIN CREAM 30 GM TUBE TP SCH ×2 (08:55→20:50)
[2019-12-12] MEDS: CEFEPIME HCL 2 G in IV DEXTROSE 5% 100 ML IV SCH ×2 (09:00→21:10)
--- NOTE | 2019-12-12 09:00 | NUR ---
SEEN BY JOSE DUMAS) AND WITH СВЕТЛАНАO.
--- NOTE | 2019-12-12 15:00 | NUR ---
SEEN BY DR. VALLE AND WITH NNO.
[2019-12-12 20:00] VITALS: BP 131/66
[2019-12-12] MEDS: ASCORBIC ACID 500 MG TABLET PO SCH (20:49)
[2019-12-12] MEDS: ACIDOPHILUS/BULGARICUS CHEW TAB GT SCH (20:49)
[2019-12-13] MEDS: POLYVINYL ALCOHOL OPHT DROPS 15 ML BOTTLE EACHEYE SCH ×3 (05:17→21:05)
[2019-12-13] MEDS: PROTEIN SUPPLEMENT (PROSTAT) 30 ML LIQUID GT SCH ×3 (05:18→21:05)
[2019-12-13] MEDS: ARGININE/GLUTAMINE/CALCIUM BMB 1 EACH POWD.PACK GT SCH ×2 (05:18→17:14)
[2019-12-13] MEDS: HYDROGEN PEROXIDE 3% 118 ML BOTTLE TP SCH ×2 (07:12→21:34)
[2019-12-13 07:45] VITALS: BP 138/79
[2019-12-13] MEDS: levETIRAcetam 500 MG/5 ML LIQUID UDC GT SCH ×2 (09:22→21:04)
[2019-12-13] MEDS: DIGOXIN 125 MCG TABLET GT SCH (09:22)
[2019-12-13] MEDS: FUROSEMIDE 20 MG TABLET GT SCH (09:23)
[2019-12-13] MEDS: FAMOTIDINE 20 MG TABLET GT SCH ×2 (09:23→21:04)
[2019-12-13] MEDS: POTASSIUM CHLORIDE 40 MEQ/30 ML LIQUID UDC GT SCH (09:24)
[2019-12-13] MEDS: Z GUARD REMEDY PASTE 57 GM TUBE TOP SCH ×2 (09:24→21:05)
[2019-12-13] MEDS: NORMAL SALINE NASAL 45 ML BOTTLE NS SCH (09:24)
[2019-12-13] MEDS: SODIUM HYPOCHLORITE 0.125% (QUARTER STRENGTH) 473 ML BOTTLE TP SCH ×2 (09:25→21:05)
[2019-12-13] MEDS: TRIAMCINOLONE ACET 0.1% CREAM 15 GM TUBE TP SCH ×2 (09:25→21:05)
[2019-12-13] MEDS: NYSTATIN CREAM 30 GM TUBE TP SCH ×2 (09:25→21:05)
[2019-12-13] MEDS: THERAHONEY GEL 1.5 OZ TUBE TOP SCH ×2 (09:25→21:05)
[2019-12-13] MEDS: NYSTATIN POWDER 15 GM BOTTLE TP SCH ×2 (09:25→21:05)
[2019-12-13] MEDS: CEFEPIME HCL 2 G in IV DEXTROSE 5% 100 ML IV SCH (09:39)
[2019-12-13] MEDS: GLUCERNA 1.2 1000ML LIQUID GT PRN (10:28)
[2019-12-13 20:17] VITALS: BP 130/64
[2019-12-13] MEDS: ACIDOPHILUS/BULGARICUS CHEW TAB GT SCH (21:04)
[2019-12-13] MEDS: ASCORBIC ACID 500 MG TABLET PO SCH (21:04)
[2019-12-14] MEDS: POLYVINYL ALCOHOL OPHT DROPS 15 ML BOTTLE EACHEYE SCH ×3 (05:13→22:35)
[2019-12-14] MEDS: ARGININE/GLUTAMINE/CALCIUM BMB 1 EACH POWD.PACK GT SCH ×2 (05:15→17:16)
[2019-12-14] MEDS: PROTEIN SUPPLEMENT (PROSTAT) 30 ML LIQUID GT SCH ×3 (05:15→22:35)
[2019-12-14 07:48] VITALS: BP 140/81
[2019-12-14] MEDS: HYDROGEN PEROXIDE 3% 118 ML BOTTLE TP SCH ×2 (08:00→21:33)
[2019-12-14] MEDS: levETIRAcetam 500 MG/5 ML LIQUID UDC GT SCH ×2 (08:30→21:00)
[2019-12-14] MEDS: FUROSEMIDE 20 MG TABLET GT SCH (08:31)
[2019-12-14] MEDS: SODIUM HYPOCHLORITE 0.125% (QUARTER STRENGTH) 473 ML BOTTLE TP SCH ×2 (08:31→21:00)
[2019-12-14] MEDS: NYSTATIN POWDER 15 GM BOTTLE TP SCH ×2 (08:31→21:00)
[2019-12-14] MEDS: THERAHONEY GEL 1.5 OZ TUBE TOP SCH ×2 (08:31→21:00)
[2019-12-14] MEDS: TRIAMCINOLONE ACET 0.1% CREAM 15 GM TUBE TP SCH ×2 (08:31→21:00)
[2019-12-14] MEDS: Z GUARD REMEDY PASTE 57 GM TUBE TOP SCH ×2 (08:31→21:00)
[2019-12-14] MEDS: NORMAL SALINE NASAL 45 ML BOTTLE NS SCH (08:31)
[2019-12-14] MEDS: POTASSIUM CHLORIDE 40 MEQ/30 ML LIQUID UDC GT SCH (08:31)
[2019-12-14] MEDS: FAMOTIDINE 20 MG TABLET GT SCH ×2 (08:31→21:00)
[2019-12-14] MEDS: NYSTATIN CREAM 30 GM TUBE TP SCH ×2 (08:31→21:00)
[2019-12-14] MEDS: DIGOXIN 125 MCG TABLET GT SCH (08:31)
[2019-12-14 20:17] VITALS: BP 128/57
[2019-12-14] MEDS: ASCORBIC ACID 500 MG TABLET PO SCH (21:00)
[2019-12-14] MEDS: ACIDOPHILUS/BULGARICUS CHEW TAB GT SCH (21:00)
[2019-12-15] MEDS: ARGININE/GLUTAMINE/CALCIUM BMB 1 EACH POWD.PACK GT SCH ×2 (05:39→17:25)
[2019-12-15] MEDS: POLYVINYL ALCOHOL OPHT DROPS 15 ML BOTTLE EACHEYE SCH ×3 (05:39→21:48)
[2019-12-15] MEDS: PROTEIN SUPPLEMENT (PROSTAT) 30 ML LIQUID GT SCH ×3 (05:39→21:48)
[2019-12-15] MEDS: HYDROGEN PEROXIDE 3% 118 ML BOTTLE TP SCH ×2 (07:47→21:16)
[2019-12-15 08:07] VITALS: BP 145/54
[2019-12-15] MEDS: SODIUM HYPOCHLORITE 0.125% (QUARTER STRENGTH) 473 ML BOTTLE TP SCH ×2 (08:43→21:48)
[2019-12-15] MEDS: FUROSEMIDE 20 MG TABLET GT SCH (08:43)
[2019-12-15] MEDS: POTASSIUM CHLORIDE 40 MEQ/30 ML LIQUID UDC GT SCH (08:43)
[2019-12-15] MEDS: DIGOXIN 125 MCG TABLET GT SCH (08:43)
[2019-12-15] MEDS: NORMAL SALINE NASAL 45 ML BOTTLE NS SCH (08:43)
[2019-12-15] MEDS: TRIAMCINOLONE ACET 0.1% CREAM 15 GM TUBE TP SCH ×2 (08:43→21:48)
[2019-12-15] MEDS: Z GUARD REMEDY PASTE 57 GM TUBE TOP SCH ×2 (08:43→21:47)
[2019-12-15] MEDS: levETIRAcetam 500 MG/5 ML LIQUID UDC GT SCH ×2 (08:43→21:47)
[2019-12-15] MEDS: FAMOTIDINE 20 MG TABLET GT SCH ×2 (08:43→21:47)
[2019-12-15] MEDS: THERAHONEY GEL 1.5 OZ TUBE TOP SCH ×2 (08:43→21:48)
[2019-12-15] MEDS: NYSTATIN CREAM 30 GM TUBE TP SCH ×2 (08:44→21:48)
[2019-12-15] MEDS: NYSTATIN POWDER 15 GM BOTTLE TP SCH ×2 (08:44→21:48)
[2019-12-15 20:02] VITALS: BP 127/60
[2019-12-15] MEDS: ASCORBIC ACID 500 MG TABLET PO SCH (21:47)
[2019-12-15] MEDS: ACIDOPHILUS/BULGARICUS CHEW TAB GT SCH (21:47)
--- NOTE | 2019-12-15 22:51 | NUR ---
Seen and examined by CYNTHIA Bach with No new orders.
[2019-12-16] MEDS: ARGININE/GLUTAMINE/CALCIUM BMB 1 EACH POWD.PACK GT SCH ×2 (05:55→17:20)
[2019-12-16] MEDS: PROTEIN SUPPLEMENT (PROSTAT) 30 ML LIQUID GT SCH ×3 (05:55→22:08)
[2019-12-16] MEDS: POLYVINYL ALCOHOL OPHT DROPS 15 ML BOTTLE EACHEYE SCH ×3 (05:55→22:08)
[2019-12-16 07:51] VITALS: BP 135/72
[2019-12-16] MEDS: levETIRAcetam 500 MG/5 ML LIQUID UDC GT SCH ×2 (08:40→21:00)
[2019-12-16] MEDS: FAMOTIDINE 20 MG TABLET GT SCH ×2 (08:40→21:00)
[2019-12-16] MEDS: POTASSIUM CHLORIDE 40 MEQ/30 ML LIQUID UDC GT SCH (08:40)
[2019-12-16] MEDS: FUROSEMIDE 20 MG TABLET GT SCH (08:40)
[2019-12-16] MEDS: DIGOXIN 125 MCG TABLET GT SCH (08:40)
[2019-12-16] MEDS: NORMAL SALINE NASAL 45 ML BOTTLE NS SCH (08:41)
[2019-12-16] MEDS: Z GUARD REMEDY PASTE 57 GM TUBE TOP SCH ×2 (08:41→21:00)
[2019-12-16] MEDS: NYSTATIN CREAM 30 GM TUBE TP SCH ×2 (08:41→21:00)
[2019-12-16] MEDS: NYSTATIN POWDER 15 GM BOTTLE TP SCH ×3 (08:41→21:00)
[2019-12-16] MEDS: SODIUM HYPOCHLORITE 0.125% (QUARTER STRENGTH) 473 ML BOTTLE TP SCH ×2 (08:41→21:00)
[2019-12-16] MEDS: TRIAMCINOLONE ACET 0.1% CREAM 15 GM TUBE TP SCH ×2 (08:41→21:00)
[2019-12-16] MEDS: THERAHONEY GEL 1.5 OZ TUBE TOP SCH ×2 (08:41→21:00)
[2019-12-16] MEDS: HYDROGEN PEROXIDE 3% 118 ML BOTTLE TP SCH ×2 (09:00→21:27)
--- NOTE | 2019-12-16 11:10 | NUR ---
NEW ORDER CARRIED OUT FROM DR. ALEJANDRA Mccallum FOR COVID 19 TEST AND PT'S DTR. HARLEY ROSALES IAND IN AGREEMENT AND ORDER CARRIED OUT.
[2019-12-16 20:25] VITALS: BP 122/57
[2019-12-16] MEDS: ASCORBIC ACID 500 MG TABLET PO SCH (21:00)
[2019-12-16] MEDS: ACIDOPHILUS/BULGARICUS CHEW TAB GT SCH (21:00)
[2019-12-17] MEDS: ARGININE/GLUTAMINE/CALCIUM BMB 1 EACH POWD.PACK GT SCH ×2 (04:54→17:23)
[2019-12-17] MEDS: POLYVINYL ALCOHOL OPHT DROPS 15 ML BOTTLE EACHEYE SCH ×3 (04:54→22:38)
[2019-12-17] MEDS: PROTEIN SUPPLEMENT (PROSTAT) 30 ML LIQUID GT SCH ×3 (04:54→22:38)
[2019-12-17 07:24] VITALS: BP 106/58
[2019-12-17] MEDS: levETIRAcetam 500 MG/5 ML LIQUID UDC GT SCH ×2 (08:52→20:33)
[2019-12-17] MEDS: NYSTATIN POWDER 15 GM BOTTLE TP SCH ×4 (08:53→20:34)
[2019-12-17] MEDS: POTASSIUM CHLORIDE 40 MEQ/30 ML LIQUID UDC GT SCH (08:53)
[2019-12-17] MEDS: NYSTATIN CREAM 30 GM TUBE TP SCH ×2 (08:53→20:33)
[2019-12-17] MEDS: Z GUARD REMEDY PASTE 57 GM TUBE TOP SCH ×2 (08:53→20:33)
[2019-12-17] MEDS: FAMOTIDINE 20 MG TABLET GT SCH ×2 (08:53→20:33)
[2019-12-17] MEDS: FUROSEMIDE 20 MG TABLET GT SCH (08:53)
[2019-12-17] MEDS: THERAHONEY GEL 1.5 OZ TUBE TOP SCH ×2 (08:53→20:33)
[2019-12-17] MEDS: SODIUM HYPOCHLORITE 0.125% (QUARTER STRENGTH) 473 ML BOTTLE TP SCH ×2 (08:53→20:33)
[2019-12-17] MEDS: TRIAMCINOLONE ACET 0.1% CREAM 15 GM TUBE TP SCH ×2 (08:53→20:33)
[2019-12-17] MEDS: NORMAL SALINE NASAL 45 ML BOTTLE NS SCH (08:53)
[2019-12-17] MEDS: DIGOXIN 125 MCG TABLET GT SCH (08:53)
[2019-12-17] MEDS: HYDROGEN PEROXIDE 3% 118 ML BOTTLE TP SCH ×2 (09:59→21:50)
[2019-12-17] MEDS: ACIDOPHILUS/BULGARICUS CHEW TAB GT SCH (20:32)
[2019-12-17] MEDS: ASCORBIC ACID 500 MG TABLET PO SCH (20:33)
--- NOTE | 2019-12-17 21:00 | NUR ---
RECEIVED PHONE CALLED FROM [employer]19 RESULT IS NEGATIVE NOTED.
[2019-12-17 23:22] VITALS: BP 126/72
--- NOTE | 2019-12-18 00:16 | NUR ---
PT ON CONT HT 50 VENT WITH [address] ANDECURED, WITH SAME CURRENT VENT SETTINGS, PT WITH MOSTLY CONTROLLED VENTILATION, GOOD COUGH EFFORT, CHECK CUFF, CHANGE HME, SUCTIONED LIGHT PALE YELL TINGE SECRETIONS, TRACH CARE DONE, ALL VENT ALARMS GOOD, NO VENT CHANGES MADE, GOOD AERATION, B/S SLIGHT RHONCHI, CLEARING AFTER SUCTIONING, NO SOB NOTED, VENT PLUGGED INTO RED OUTLET, PPE USED WHILE IN ROOM, PT STABLE.Leif PETERSP Addendum: 12/18/19 at 0023 by CHRISTIE BHATIA RT Amended: Links added.
[2019-12-18] MEDS: POLYVINYL ALCOHOL OPHT DROPS 15 ML BOTTLE EACHEYE SCH ×3 (05:14→22:04)
[2019-12-18] MEDS: ARGININE/GLUTAMINE/CALCIUM BMB 1 EACH POWD.PACK GT SCH ×2 (05:14→17:02)
[2019-12-18] MEDS: PROTEIN SUPPLEMENT (PROSTAT) 30 ML LIQUID GT SCH ×3 (05:14→22:04)
[2019-12-18] MEDS: HYDROGEN PEROXIDE 3% 118 ML BOTTLE TP SCH ×2 (07:18→19:19)
[2019-12-18 07:50] VITALS: BP 132/66
[2019-12-18] MEDS: levETIRAcetam 500 MG/5 ML LIQUID UDC GT SCH ×2 (08:32→21:00)
[2019-12-18] MEDS: FAMOTIDINE 20 MG TABLET GT SCH ×2 (08:32→21:00)
[2019-12-18] MEDS: DIGOXIN 125 MCG TABLET GT SCH (08:32)
[2019-12-18] MEDS: NORMAL SALINE NASAL 45 ML BOTTLE NS SCH (08:32)
[2019-12-18] MEDS: FUROSEMIDE 20 MG TABLET GT SCH (08:32)
[2019-12-18] MEDS: POTASSIUM CHLORIDE 40 MEQ/30 ML LIQUID UDC GT SCH (08:32)
[2019-12-18] MEDS: NYSTATIN POWDER 15 GM BOTTLE TP SCH ×4 (08:33→21:00)
[2019-12-18] MEDS: THERAHONEY GEL 1.5 OZ TUBE TOP SCH ×2 (08:33→21:00)
[2019-12-18] MEDS: SODIUM HYPOCHLORITE 0.125% (QUARTER STRENGTH) 473 ML BOTTLE TP SCH ×2 (08:33→21:00)
[2019-12-18] MEDS: NYSTATIN CREAM 30 GM TUBE TP SCH ×2 (08:33→21:00)
[2019-12-18] MEDS: TRIAMCINOLONE ACET 0.1% CREAM 15 GM TUBE TP SCH ×2 (08:33→21:00)
[2019-12-18] MEDS: Z GUARD REMEDY PASTE 57 GM TUBE TOP SCH ×2 (08:33→21:00)
[2019-12-18] MEDS: GLUCERNA 1.2 1000ML LIQUID GT PRN (17:02)
[2019-12-18] MEDS: ASCORBIC ACID 500 MG TABLET PO SCH (21:00)
[2019-12-18] MEDS: ACIDOPHILUS/BULGARICUS CHEW TAB GT SCH (21:00)
[2019-12-18 22:08] VITALS: BP 131/66
[2019-12-19] MEDS: PROTEIN SUPPLEMENT (PROSTAT) 30 ML LIQUID GT SCH ×3 (06:06→21:09)
[2019-12-19] MEDS: POLYVINYL ALCOHOL OPHT DROPS 15 ML BOTTLE EACHEYE SCH ×3 (06:06→21:09)
[2019-12-19] MEDS: ARGININE/GLUTAMINE/CALCIUM BMB 1 EACH POWD.PACK GT SCH ×2 (06:06→18:30)
[2019-12-19 08:00] VITALS: BP 124/65
[2019-12-19] MEDS: levETIRAcetam 500 MG/5 ML LIQUID UDC GT SCH ×2 (08:38→20:52)
[2019-12-19] MEDS: DIGOXIN 125 MCG TABLET GT SCH (08:41)
[2019-12-19] MEDS: FUROSEMIDE 20 MG TABLET GT SCH (08:42)
[2019-12-19] MEDS: FAMOTIDINE 20 MG TABLET GT SCH ×2 (08:42→20:52)
[2019-12-19] MEDS: Z GUARD REMEDY PASTE 57 GM TUBE TOP SCH ×2 (08:43→20:56)
[2019-12-19] MEDS: SODIUM HYPOCHLORITE 0.125% (QUARTER STRENGTH) 473 ML BOTTLE TP SCH ×2 (08:43→20:56)
[2019-12-19] MEDS: TRIAMCINOLONE ACET 0.1% CREAM 15 GM TUBE TP SCH ×2 (08:43→20:56)
[2019-12-19] MEDS: NYSTATIN POWDER 15 GM BOTTLE TP SCH ×4 (08:43→20:57)
[2019-12-19] MEDS: THERAHONEY GEL 1.5 OZ TUBE TOP SCH ×2 (08:43→20:56)
[2019-12-19] MEDS: POTASSIUM CHLORIDE 40 MEQ/30 ML LIQUID UDC GT SCH (08:43)
[2019-12-19] MEDS: NORMAL SALINE NASAL 45 ML BOTTLE NS SCH (08:43)
[2019-12-19] MEDS: NYSTATIN CREAM 30 GM TUBE TP SCH ×2 (08:43→20:57)
[2019-12-19] MEDS: HYDROGEN PEROXIDE 3% 118 ML BOTTLE TP SCH ×2 (09:50→19:27)
[2019-12-19] MEDS: GLUCERNA 1.2 1000ML LIQUID GT PRN (18:30)
[2019-12-19 20:00] VITALS: BP 142/72
[2019-12-19] MEDS: ASCORBIC ACID 500 MG TABLET PO SCH (20:52)
[2019-12-19] MEDS: ACIDOPHILUS/BULGARICUS CHEW TAB GT SCH (20:52)
[2019-12-20] MEDS: ARGININE/GLUTAMINE/CALCIUM BMB 1 EACH POWD.PACK GT SCH ×2 (05:42→17:19)
[2019-12-20] MEDS: PROTEIN SUPPLEMENT (PROSTAT) 30 ML LIQUID GT SCH ×3 (05:42→22:15)
[2019-12-20] MEDS: POLYVINYL ALCOHOL OPHT DROPS 15 ML BOTTLE EACHEYE SCH ×3 (05:42→22:15)
[2019-12-20 07:54] VITALS: BP 131/59
[2019-12-20] MEDS: levETIRAcetam 500 MG/5 ML LIQUID UDC GT SCH ×2 (08:45→21:00)
[2019-12-20] MEDS: FUROSEMIDE 20 MG TABLET GT SCH (08:49)
[2019-12-20] MEDS: FAMOTIDINE 20 MG TABLET GT SCH ×2 (08:49→21:00)
[2019-12-20] MEDS: POTASSIUM CHLORIDE 40 MEQ/30 ML LIQUID UDC GT SCH (08:49)
[2019-12-20] MEDS: DIGOXIN 125 MCG TABLET GT SCH (08:49)
[2019-12-20] MEDS: TRIAMCINOLONE ACET 0.1% CREAM 15 GM TUBE TP SCH ×2 (08:50→21:00)
[2019-12-20] MEDS: SODIUM HYPOCHLORITE 0.125% (QUARTER STRENGTH) 473 ML BOTTLE TP SCH ×2 (08:50→21:00)
[2019-12-20] MEDS: NYSTATIN CREAM 30 GM TUBE TP SCH ×2 (08:50→21:00)
[2019-12-20] MEDS: NYSTATIN POWDER 15 GM BOTTLE TP SCH ×4 (08:50→21:00)
[2019-12-20] MEDS: THERAHONEY GEL 1.5 OZ TUBE TOP SCH ×2 (08:50→21:00)
[2019-12-20] MEDS: Z GUARD REMEDY PASTE 57 GM TUBE TOP SCH ×2 (08:50→21:00)
[2019-12-20] MEDS: NORMAL SALINE NASAL 45 ML BOTTLE NS SCH (08:50)
[2019-12-20] MEDS: HYDROGEN PEROXIDE 3% 118 ML BOTTLE TP SCH ×2 (08:52→21:00)
[2019-12-20 20:00] VITALS: BP 141/67
[2019-12-20] MEDS: ACIDOPHILUS/BULGARICUS CHEW TAB GT SCH (21:00)
[2019-12-20] MEDS: ASCORBIC ACID 500 MG TABLET PO SCH (21:00)
--- NOTE | 2019-12-21 05:34 | NUR ---
PT ON HT 50 VENT, SUCTION, NO SOB NOTED, NO GURGLING, CHANGE HMEKenzie BHATIA SPIKE MACHINE OPERATOR Addendum: 12/21/19 at 0535 by CHRISTIE BHATIA RT Amended: Links added.
[2019-12-21] MEDS: POLYVINYL ALCOHOL OPHT DROPS 15 ML BOTTLE EACHEYE SCH ×3 (05:42→22:08)
[2019-12-21] MEDS: ARGININE/GLUTAMINE/CALCIUM BMB 1 EACH POWD.PACK GT SCH ×2 (05:43→17:36)
[2019-12-21] MEDS: PROTEIN SUPPLEMENT (PROSTAT) 30 ML LIQUID GT SCH ×3 (05:43→22:08)
[2019-12-21 08:12] VITALS: BP 127/62
[2019-12-21] MEDS: levETIRAcetam 500 MG/5 ML LIQUID UDC GT SCH ×2 (08:54→20:42)
[2019-12-21] MEDS: DIGOXIN 125 MCG TABLET GT SCH (08:55)
[2019-12-21] MEDS: POTASSIUM CHLORIDE 40 MEQ/30 ML LIQUID UDC GT SCH (08:55)
[2019-12-21] MEDS: FUROSEMIDE 20 MG TABLET GT SCH (08:55)
[2019-12-21] MEDS: FAMOTIDINE 20 MG TABLET GT SCH ×2 (08:55→20:42)
[2019-12-21] MEDS: SODIUM HYPOCHLORITE 0.125% (QUARTER STRENGTH) 473 ML BOTTLE TP SCH ×2 (08:56→20:43)
[2019-12-21] MEDS: TRIAMCINOLONE ACET 0.1% CREAM 15 GM TUBE TP SCH ×2 (08:56→20:43)
[2019-12-21] MEDS: NORMAL SALINE NASAL 45 ML BOTTLE NS SCH (08:56)
[2019-12-21] MEDS: Z GUARD REMEDY PASTE 57 GM TUBE TOP SCH ×2 (08:56→20:42)
[2019-12-21] MEDS: NYSTATIN CREAM 30 GM TUBE TP SCH ×2 (08:56→20:43)
[2019-12-21] MEDS: THERAHONEY GEL 1.5 OZ TUBE TOP SCH ×2 (08:56→20:42)
[2019-12-21] MEDS: NYSTATIN POWDER 15 GM BOTTLE TP SCH ×4 (08:56→20:43)
[2019-12-21] MEDS: HYDROGEN PEROXIDE 3% 118 ML BOTTLE TP SCH ×2 (09:37→20:43)
[2019-12-21] MEDS: GLUCERNA 1.2 1000ML LIQUID GT PRN (17:36)
[2019-12-21 20:00] VITALS: BP 129/63
[2019-12-21] MEDS: ACIDOPHILUS/BULGARICUS CHEW TAB GT SCH (20:42)
[2019-12-21] MEDS: ASCORBIC ACID 500 MG TABLET PO SCH (20:42)
--- NOTE | 2019-12-22 04:43 | NUR ---
PT ON COMT HT 50 VENT WITH TRACH, SUCTION PRN, LIGHT PALE YELL TINGE SECRETIONS, CHECK CUFF, TRACH CARE DONE, NO SOB NOTED, NO VENT CHANGES MADE, CHANGE ASHVIN AND BALLARD. Leif PETERSP Addendum: 12/22/19 at 0445 by CHRISTIE BHATIA RT Amended: Links added.
[2019-12-22] MEDS: PROTEIN SUPPLEMENT (PROSTAT) 30 ML LIQUID GT SCH ×3 (05:21→21:16)
[2019-12-22] MEDS: POLYVINYL ALCOHOL OPHT DROPS 15 ML BOTTLE EACHEYE SCH ×3 (05:21→21:16)
[2019-12-22] MEDS: ARGININE/GLUTAMINE/CALCIUM BMB 1 EACH POWD.PACK GT SCH ×2 (05:21→17:17)
[2019-12-22 07:53] VITALS: BP 115/67
[2019-12-22] MEDS: levETIRAcetam 500 MG/5 ML LIQUID UDC GT SCH ×2 (08:00→20:09)
[2019-12-22] MEDS: FUROSEMIDE 20 MG TABLET GT SCH (08:02)
[2019-12-22] MEDS: POTASSIUM CHLORIDE 40 MEQ/30 ML LIQUID UDC GT SCH (08:02)
[2019-12-22] MEDS: FAMOTIDINE 20 MG TABLET GT SCH ×2 (08:02→20:09)
[2019-12-22] MEDS: DIGOXIN 125 MCG TABLET GT SCH (08:02)
[2019-12-22] MEDS: NYSTATIN POWDER 15 GM BOTTLE TP SCH ×4 (08:03→20:11)
[2019-12-22] MEDS: Z GUARD REMEDY PASTE 57 GM TUBE TOP SCH ×2 (08:03→20:09)
[2019-12-22] MEDS: SODIUM HYPOCHLORITE 0.125% (QUARTER STRENGTH) 473 ML BOTTLE TP SCH ×2 (08:03→20:09)
[2019-12-22] MEDS: NYSTATIN CREAM 30 GM TUBE TP SCH ×2 (08:03→20:09)
[2019-12-22] MEDS: THERAHONEY GEL 1.5 OZ TUBE TOP SCH ×2 (08:03→20:09)
[2019-12-22] MEDS: TRIAMCINOLONE ACET 0.1% CREAM 15 GM TUBE TP SCH ×2 (08:03→20:09)
[2019-12-22] MEDS: NORMAL SALINE NASAL 45 ML BOTTLE NS SCH (08:03)
[2019-12-22] MEDS: HYDROGEN PEROXIDE 3% 118 ML BOTTLE TP SCH ×2 (08:51→20:09)
[2019-12-22] MEDS: GLUCERNA 1.2 1000ML LIQUID GT PRN (16:11)
[2019-12-22] MEDS: ACIDOPHILUS/BULGARICUS CHEW TAB GT SCH (20:09)
[2019-12-22] MEDS: ASCORBIC ACID 500 MG TABLET PO SCH (20:09)
[2019-12-22 20:24] VITALS: BP 128/69
[2019-12-23] MEDS: ARGININE/GLUTAMINE/CALCIUM BMB 1 EACH POWD.PACK GT SCH ×2 (05:04→17:07)
[2019-12-23] MEDS: POLYVINYL ALCOHOL OPHT DROPS 15 ML BOTTLE EACHEYE SCH ×3 (05:04→21:09)
[2019-12-23] MEDS: PROTEIN SUPPLEMENT (PROSTAT) 30 ML LIQUID GT SCH ×3 (05:04→21:09)
[2019-12-23 07:48] VITALS: BP 123/59
[2019-12-23] MEDS: HYDROGEN PEROXIDE 3% 118 ML BOTTLE TP SCH ×2 (08:09→21:17)
[2019-12-23] MEDS: levETIRAcetam 500 MG/5 ML LIQUID UDC GT SCH ×2 (08:10→21:09)
[2019-12-23] MEDS: FAMOTIDINE 20 MG TABLET GT SCH ×2 (08:11→21:09)
[2019-12-23] MEDS: POTASSIUM CHLORIDE 40 MEQ/30 ML LIQUID UDC GT SCH (08:11)
[2019-12-23] MEDS: FUROSEMIDE 20 MG TABLET GT SCH (08:11)
[2019-12-23] MEDS: DIGOXIN 125 MCG TABLET GT SCH (08:11)
[2019-12-23] MEDS: TRIAMCINOLONE ACET 0.1% CREAM 15 GM TUBE TP SCH ×2 (08:12→21:09)
[2019-12-23] MEDS: NORMAL SALINE NASAL 45 ML BOTTLE NS SCH (08:12)
[2019-12-23] MEDS: Z GUARD REMEDY PASTE 57 GM TUBE TOP SCH ×2 (08:12→21:09)
[2019-12-23] MEDS: SODIUM HYPOCHLORITE 0.125% (QUARTER STRENGTH) 473 ML BOTTLE TP SCH ×2 (08:12→21:09)
[2019-12-23] MEDS: THERAHONEY GEL 1.5 OZ TUBE TOP SCH ×2 (08:12→21:09)
[2019-12-23] MEDS: NYSTATIN CREAM 30 GM TUBE TP SCH ×2 (08:13→21:09)
[2019-12-23] MEDS: NYSTATIN POWDER 15 GM BOTTLE TP SCH ×3 (08:13→21:09)
[2019-12-23] MEDS: GLUCERNA 1.2 1000ML LIQUID GT PRN (17:07)
--- NOTE | 2019-12-23 19:30 | NUR ---
Patient received in stable respiratory condition on Hunt vent with current MD ordered vent settings. All alarms on and audible, Ambubag and spare trach at bedside. Airway is patent and secured. Suctioned PRN. Will continue to monitor.
[2019-12-23] MEDS: ACIDOPHILUS/BULGARICUS CHEW TAB GT SCH (21:08)
[2019-12-23] MEDS: ASCORBIC ACID 500 MG TABLET PO SCH (21:09)
[2019-12-24] MEDS: PROTEIN SUPPLEMENT (PROSTAT) 30 ML LIQUID GT SCH ×3 (05:31→21:03)
[2019-12-24] MEDS: POLYVINYL ALCOHOL OPHT DROPS 15 ML BOTTLE EACHEYE SCH ×3 (05:31→21:03)
[2019-12-24] MEDS: ARGININE/GLUTAMINE/CALCIUM BMB 1 EACH POWD.PACK GT SCH ×2 (05:31→17:02)
[2019-12-24 07:31] VITALS: BP 131/60
[2019-12-24] MEDS: levETIRAcetam 500 MG/5 ML LIQUID UDC GT SCH ×2 (08:23→21:02)
[2019-12-24] MEDS: DIGOXIN 125 MCG TABLET GT SCH (08:24)
[2019-12-24] MEDS: FUROSEMIDE 20 MG TABLET GT SCH (08:24)
[2019-12-24] MEDS: FAMOTIDINE 20 MG TABLET GT SCH ×2 (08:24→21:03)
[2019-12-24] MEDS: NORMAL SALINE NASAL 45 ML BOTTLE NS SCH (08:25)
[2019-12-24] MEDS: THERAHONEY GEL 1.5 OZ TUBE TOP SCH ×2 (08:25→21:03)
[2019-12-24] MEDS: POTASSIUM CHLORIDE 40 MEQ/30 ML LIQUID UDC GT SCH (08:25)
[2019-12-24] MEDS: Z GUARD REMEDY PASTE 57 GM TUBE TOP SCH ×2 (08:25→21:03)
[2019-12-24] MEDS: NYSTATIN CREAM 30 GM TUBE TP SCH ×2 (08:26→21:03)
[2019-12-24] MEDS: SODIUM HYPOCHLORITE 0.125% (QUARTER STRENGTH) 473 ML BOTTLE TP SCH ×2 (08:26→21:03)
[2019-12-24] MEDS: TRIAMCINOLONE ACET 0.1% CREAM 15 GM TUBE TP SCH ×2 (08:26→21:03)
[2019-12-24] MEDS: NYSTATIN POWDER 15 GM BOTTLE TP SCH ×2 (08:26→21:03)
[2019-12-24] MEDS: HYDROGEN PEROXIDE 3% 118 ML BOTTLE TP SCH ×2 (08:35→21:03)
[2019-12-24 20:46] VITALS: BP 118/52
[2019-12-24] MEDS: ACIDOPHILUS/BULGARICUS CHEW TAB GT SCH (21:02)
[2019-12-24] MEDS: ASCORBIC ACID 500 MG TABLET PO SCH (21:03)
[2019-12-24] MEDS: GLUCERNA 1.2 1000ML LIQUID GT PRN (21:12)
[2019-12-25] MEDS: PROTEIN SUPPLEMENT (PROSTAT) 30 ML LIQUID GT SCH ×3 (05:18→22:04)
[2019-12-25] MEDS: POLYVINYL ALCOHOL OPHT DROPS 15 ML BOTTLE EACHEYE SCH ×3 (05:18→22:04)
[2019-12-25] MEDS: ARGININE/GLUTAMINE/CALCIUM BMB 1 EACH POWD.PACK GT SCH ×2 (05:18→17:09)
[2019-12-25 07:25] VITALS: BP 124/62
[2019-12-25] MEDS: DIGOXIN 125 MCG TABLET GT SCH (08:23)
[2019-12-25] MEDS: FAMOTIDINE 20 MG TABLET GT SCH ×2 (08:23→20:27)
[2019-12-25] MEDS: FUROSEMIDE 20 MG TABLET GT SCH (08:23)
[2019-12-25] MEDS: POTASSIUM CHLORIDE 40 MEQ/30 ML LIQUID UDC GT SCH (08:24)
[2019-12-25] MEDS: NORMAL SALINE NASAL 45 ML BOTTLE NS SCH (08:24)
[2019-12-25] MEDS: Z GUARD REMEDY PASTE 57 GM TUBE TOP SCH ×2 (08:24→20:27)
[2019-12-25] MEDS: TRIAMCINOLONE ACET 0.1% CREAM 15 GM TUBE TP SCH ×2 (08:26→20:28)
[2019-12-25] MEDS: NYSTATIN CREAM 30 GM TUBE TP SCH ×2 (08:26→20:28)
[2019-12-25] MEDS: THERAHONEY GEL 1.5 OZ TUBE TOP SCH ×2 (08:26→20:27)
[2019-12-25] MEDS: SODIUM HYPOCHLORITE 0.125% (QUARTER STRENGTH) 473 ML BOTTLE TP SCH ×2 (08:26→20:27)
[2019-12-25] MEDS: NYSTATIN POWDER 15 GM BOTTLE TP SCH ×2 (08:27→20:28)
[2019-12-25] MEDS: levETIRAcetam 500 MG/5 ML LIQUID UDC GT SCH ×2 (08:31→20:27)
[2019-12-25] MEDS: HYDROGEN PEROXIDE 3% 118 ML BOTTLE TP SCH ×2 (09:10→21:49)
[2019-12-25 20:00] VITALS: BP 123/63
[2019-12-25] MEDS: ACIDOPHILUS/BULGARICUS CHEW TAB GT SCH (20:27)
[2019-12-25] MEDS: ASCORBIC ACID 500 MG TABLET PO SCH (20:27)
[2019-12-26] MEDS: GLUCERNA 1.2 1000ML LIQUID GT PRN (05:40)
[2019-12-26] MEDS: ARGININE/GLUTAMINE/CALCIUM BMB 1 EACH POWD.PACK GT SCH ×2 (05:40→17:33)
[2019-12-26] MEDS: POLYVINYL ALCOHOL OPHT DROPS 15 ML BOTTLE EACHEYE SCH ×3 (05:40→21:23)
[2019-12-26] MEDS: PROTEIN SUPPLEMENT (PROSTAT) 30 ML LIQUID GT SCH ×3 (05:40→21:24)
[2019-12-26] MEDS: HYDROGEN PEROXIDE 3% 118 ML BOTTLE TP SCH ×2 (07:36→20:40)
[2019-12-26 07:40] VITALS: BP 121/69
[2019-12-26] MEDS: DIGOXIN 125 MCG TABLET GT SCH (08:16)
[2019-12-26] MEDS: FUROSEMIDE 20 MG TABLET GT SCH (08:16)
[2019-12-26] MEDS: levETIRAcetam 500 MG/5 ML LIQUID UDC GT SCH ×2 (08:16→21:22)
[2019-12-26] MEDS: FAMOTIDINE 20 MG TABLET GT SCH ×2 (08:16→21:22)
[2019-12-26] MEDS: Z GUARD REMEDY PASTE 57 GM TUBE TOP SCH ×2 (08:17→21:22)
[2019-12-26] MEDS: POTASSIUM CHLORIDE 40 MEQ/30 ML LIQUID UDC GT SCH (08:17)
[2019-12-26] MEDS: THERAHONEY GEL 1.5 OZ TUBE TOP SCH ×2 (08:17→21:22)
[2019-12-26] MEDS: NORMAL SALINE NASAL 45 ML BOTTLE NS SCH (08:17)
[2019-12-26] MEDS: TRIAMCINOLONE ACET 0.1% CREAM 15 GM TUBE TP SCH ×2 (08:18→21:23)
[2019-12-26] MEDS: NYSTATIN POWDER 15 GM BOTTLE TP SCH (08:18)
[2019-12-26] MEDS: SODIUM HYPOCHLORITE 0.125% (QUARTER STRENGTH) 473 ML BOTTLE TP SCH ×2 (08:18→21:22)
[2019-12-26] MEDS: NYSTATIN CREAM 30 GM TUBE TP SCH ×2 (08:18→21:23)
--- NOTE | 2019-12-26 10:00 | NUR ---
SEEN BY JOSE DUMAS) AND WITH СВЕТЛАНАO.
--- NOTE | 2019-12-26 17:00 | NUR ---
SEEN BY DR. VALLE AND WITH NNO.
[2019-12-26 20:00] VITALS: BP 133/65
[2019-12-26] MEDS: ACIDOPHILUS/BULGARICUS CHEW TAB GT SCH (21:22)
[2019-12-26] MEDS: ASCORBIC ACID 500 MG TABLET PO SCH (21:22)
[2019-12-27] MEDS: GLUCERNA 1.2 1000ML LIQUID GT PRN (03:25)
[2019-12-27] MEDS: POLYVINYL ALCOHOL OPHT DROPS 15 ML BOTTLE EACHEYE SCH ×3 (05:08→21:15)
[2019-12-27] MEDS: ARGININE/GLUTAMINE/CALCIUM BMB 1 EACH POWD.PACK GT SCH ×2 (05:08→17:01)
[2019-12-27] MEDS: PROTEIN SUPPLEMENT (PROSTAT) 30 ML LIQUID GT SCH ×3 (05:08→21:15)
[2019-12-27] MEDS: HYDROGEN PEROXIDE 3% 118 ML BOTTLE TP SCH ×2 (07:28→21:50)
[2019-12-27 07:42] VITALS: BP 131/88
[2019-12-27] MEDS: levETIRAcetam 500 MG/5 ML LIQUID UDC GT SCH ×2 (08:26→21:14)
[2019-12-27] MEDS: DIGOXIN 125 MCG TABLET GT SCH (08:27)
[2019-12-27] MEDS: FUROSEMIDE 20 MG TABLET GT SCH (08:27)
[2019-12-27] MEDS: POTASSIUM CHLORIDE 40 MEQ/30 ML LIQUID UDC GT SCH (08:28)
[2019-12-27] MEDS: FAMOTIDINE 20 MG TABLET GT SCH ×2 (08:28→21:14)
[2019-12-27] MEDS: NYSTATIN CREAM 30 GM TUBE TP SCH ×2 (08:29→21:15)
[2019-12-27] MEDS: THERAHONEY GEL 1.5 OZ TUBE TOP SCH ×2 (08:29→21:14)
[2019-12-27] MEDS: TRIAMCINOLONE ACET 0.1% CREAM 15 GM TUBE TP SCH ×2 (08:29→21:15)
[2019-12-27] MEDS: NORMAL SALINE NASAL 45 ML BOTTLE NS SCH (08:29)
[2019-12-27] MEDS: SODIUM HYPOCHLORITE 0.125% (QUARTER STRENGTH) 473 ML BOTTLE TP SCH ×2 (08:29→21:14)
[2019-12-27] MEDS: Z GUARD REMEDY PASTE 57 GM TUBE TOP SCH ×2 (08:29→21:14)
--- NOTE | 2019-12-27 09:00 | NUR ---
SEEN BY FRANCE Mccallum AND WITH СВЕТЛАНАO.
[2019-12-27 20:00] VITALS: BP 129/70
[2019-12-27] MEDS: ASCORBIC ACID 500 MG TABLET PO SCH (21:14)
[2019-12-27] MEDS: ACIDOPHILUS/BULGARICUS CHEW TAB GT SCH (21:14)
[2019-12-28] MEDS: GLUCERNA 1.2 1000ML LIQUID GT PRN (04:28)
[2019-12-28] MEDS: PROTEIN SUPPLEMENT (PROSTAT) 30 ML LIQUID GT SCH ×3 (05:21→22:22)
[2019-12-28] MEDS: ARGININE/GLUTAMINE/CALCIUM BMB 1 EACH POWD.PACK GT SCH ×2 (05:21→17:34)
[2019-12-28] MEDS: POLYVINYL ALCOHOL OPHT DROPS 15 ML BOTTLE EACHEYE SCH ×3 (05:21→22:22)
[2019-12-28 07:31] LABS: BASOPHILS % (AUTO) 0.6 % (0.0-2.0); EOSINOPHILS # (AUTO) 0.1 K/uL (0.0-0.7); EOSINOPHILS % (AUTO) 3.3 % (0.0-7.0); HEMATOCRIT 37.4 % (31.2-41.9); HEMOGLOBIN 12.4 g/dL (10.9-14.3); LYMPHOCYTES # (AUTO) 1.4 K/uL (20.0-40.0); LYMPHOCYTES % (AUTO) 32.6 % (20.5-51.5); MEAN CORPUSCULAR HEMOGLOBIN 30.3 uug (24.7-32.8); MEAN CORPUSCULAR HGB CONC 33 g/dL (32.3-35.6); MEAN CORPUSCULAR VOLUME 91.8 fL (75.5-95.3); MONOCYTES # (AUTO) 0.6 K/uL (2.0-10.0); MONOCYTES % (AUTO) 13.2 % (0.0-11.0); NEUTROPHILS # (AUTO) 2.2 K/uL (1.8-8.9); NEUTROPHILS % (AUTO) 50.3 % (38.5-71.5); PLATELET COUNT (AUTO) 94 K/uL (179-408); RED BLOOD CELL COUNT(AUTO) 4.08 MIL/uL (3.63-4.92); WHITE BLOOD COUNT (AUTO) 4.4 K/uL (3.8-11.8)
[2019-12-28] MEDS: HYDROGEN PEROXIDE 3% 118 ML BOTTLE TP SCH ×2 (07:36→21:30)
[2019-12-28 07:45] LABS: CARBON DIOXIDE 34 mmol/L (21-32); CHLORIDE 106 mmol/L (98-107); CREATININE 0.5 mg/dL (0.6-1.3); GLUCOSE 108 mg/dL (74-106); MAGNESIUM 2.2 mg/dL (1.8-2.4); PHOSPHOROUS 3.4 mg/dL (2.5-4.9); POTASSIUM 3.6 mmol/L (3.5-5.1); UREA NITROGEN, BLOOD 30 mg/dL (7-18)
[2019-12-28 07:47] VITALS: BP 130/55
[2019-12-28] MEDS: DIGOXIN 125 MCG TABLET GT SCH (08:51)
[2019-12-28] MEDS: NORMAL SALINE NASAL 45 ML BOTTLE NS SCH (08:51)
[2019-12-28] MEDS: FAMOTIDINE 20 MG TABLET GT SCH ×2 (08:51→20:41)
[2019-12-28] MEDS: Z GUARD REMEDY PASTE 57 GM TUBE TOP SCH ×2 (08:51→20:42)
[2019-12-28] MEDS: POTASSIUM CHLORIDE 40 MEQ/30 ML LIQUID UDC GT SCH (08:51)
[2019-12-28] MEDS: FUROSEMIDE 20 MG TABLET GT SCH (08:51)
[2019-12-28] MEDS: levETIRAcetam 500 MG/5 ML LIQUID UDC GT SCH ×2 (08:51→20:36)
[2019-12-28 20:00] VITALS: BP 129/51
[2019-12-28] MEDS: ACIDOPHILUS/BULGARICUS CHEW TAB GT SCH (20:36)
[2019-12-28] MEDS: ASCORBIC ACID 500 MG TABLET PO SCH (20:41)
[2019-12-29] MEDS: POLYVINYL ALCOHOL OPHT DROPS 15 ML BOTTLE EACHEYE SCH ×3 (05:41→21:44)
[2019-12-29] MEDS: PROTEIN SUPPLEMENT (PROSTAT) 30 ML LIQUID GT SCH ×3 (05:41→21:44)
[2019-12-29] MEDS: ARGININE/GLUTAMINE/CALCIUM BMB 1 EACH POWD.PACK GT SCH ×2 (05:41→17:19)
[2019-12-29] MEDS: GLUCERNA 1.2 1000ML LIQUID GT PRN (05:41)
[2019-12-29 07:36] VITALS: BP 117/60
[2019-12-29] MEDS: HYDROGEN PEROXIDE 3% 118 ML BOTTLE TP SCH ×2 (08:09→21:00)
[2019-12-29] MEDS: POTASSIUM CHLORIDE 40 MEQ/30 ML LIQUID UDC GT SCH (08:44)
[2019-12-29] MEDS: DIGOXIN 125 MCG TABLET GT SCH (08:44)
[2019-12-29] MEDS: FUROSEMIDE 20 MG TABLET GT SCH (08:44)
[2019-12-29] MEDS: levETIRAcetam 500 MG/5 ML LIQUID UDC GT SCH ×2 (08:44→21:43)
[2019-12-29] MEDS: FAMOTIDINE 20 MG TABLET GT SCH ×2 (08:44→21:43)
[2019-12-29] MEDS: Z GUARD REMEDY PASTE 57 GM TUBE TOP SCH ×2 (08:45→21:43)
[2019-12-29] MEDS: NORMAL SALINE NASAL 45 ML BOTTLE NS SCH (08:45)
[2019-12-29 20:57] VITALS: BP 117/64
[2019-12-29] MEDS: ACIDOPHILUS/BULGARICUS CHEW TAB GT SCH (21:43)
[2019-12-29] MEDS: ASCORBIC ACID 500 MG TABLET PO SCH (21:43)
[2019-12-30] MEDS: PROTEIN SUPPLEMENT (PROSTAT) 30 ML LIQUID GT SCH ×3 (05:59→21:01)
[2019-12-30] MEDS: POLYVINYL ALCOHOL OPHT DROPS 15 ML BOTTLE EACHEYE SCH ×3 (05:59→21:01)
[2019-12-30] MEDS: ARGININE/GLUTAMINE/CALCIUM BMB 1 EACH POWD.PACK GT SCH ×2 (05:59→17:32)
[2019-12-30 07:45] VITALS: BP 122/65
[2019-12-30] MEDS: HYDROGEN PEROXIDE 3% 118 ML BOTTLE TP SCH ×2 (08:22→18:44)
[2019-12-30] MEDS: FUROSEMIDE 20 MG TABLET GT SCH (08:41)
[2019-12-30] MEDS: NORMAL SALINE NASAL 45 ML BOTTLE NS SCH (08:41)
[2019-12-30] MEDS: DIGOXIN 125 MCG TABLET GT SCH (08:41)
[2019-12-30] MEDS: FAMOTIDINE 20 MG TABLET GT SCH ×2 (08:41→21:01)
[2019-12-30] MEDS: Z GUARD REMEDY PASTE 57 GM TUBE TOP SCH ×2 (08:41→21:01)
[2019-12-30] MEDS: POTASSIUM CHLORIDE 40 MEQ/30 ML LIQUID UDC GT SCH (08:41)
[2019-12-30] MEDS: levETIRAcetam 500 MG/5 ML LIQUID UDC GT SCH ×2 (08:41→21:01)
[2019-12-30 20:46] VITALS: BP 130/64
[2019-12-30] MEDS: ACIDOPHILUS/BULGARICUS CHEW TAB GT SCH (21:01)
[2019-12-30] MEDS: ASCORBIC ACID 500 MG TABLET PO SCH (21:01)
[2019-12-31] MEDS: PROTEIN SUPPLEMENT (PROSTAT) 30 ML LIQUID GT SCH ×3 (05:42→21:06)
[2019-12-31] MEDS: POLYVINYL ALCOHOL OPHT DROPS 15 ML BOTTLE EACHEYE SCH ×3 (05:42→21:05)
[2019-12-31] MEDS: ARGININE/GLUTAMINE/CALCIUM BMB 1 EACH POWD.PACK GT SCH ×2 (05:42→17:15)
[2019-12-31] MEDS: HYDROGEN PEROXIDE 3% 118 ML BOTTLE TP SCH ×2 (07:19→21:40)
[2019-12-31 07:49] VITALS: BP 106/55
[2019-12-31] MEDS: levETIRAcetam 500 MG/5 ML LIQUID UDC GT SCH ×2 (08:32→21:04)
[2019-12-31] MEDS: DIGOXIN 125 MCG TABLET GT SCH (08:33)
[2019-12-31] MEDS: FUROSEMIDE 20 MG TABLET GT SCH (08:34)
[2019-12-31] MEDS: NORMAL SALINE NASAL 45 ML BOTTLE NS SCH (08:34)
[2019-12-31] MEDS: FAMOTIDINE 20 MG TABLET GT SCH ×2 (08:34→21:04)
[2019-12-31] MEDS: POTASSIUM CHLORIDE 40 MEQ/30 ML LIQUID UDC GT SCH (08:34)
[2019-12-31] MEDS: Z GUARD REMEDY PASTE 57 GM TUBE TOP SCH ×2 (08:35→21:05)
[2019-12-31] MEDS: ACETAMINOPHEN 650 MG/20 ML UDC- SA PATIENTS-PAIN ONLY GT PRN (09:25)
[2019-12-31] MEDS: TRIAMCINOLONE ACET 0.1% CREAM 15 GM TUBE TP SCH ×2 (10:00→21:05)
[2019-12-31] MEDS: NYSTATIN CREAM 30 GM TUBE TP SCH ×2 (10:00→21:05)
[2019-12-31] MEDS: THERAHONEY GEL 1.5 OZ TUBE TOP SCH ×2 (10:00→21:05)
[2019-12-31] MEDS: SODIUM HYPOCHLORITE 0.125% (QUARTER STRENGTH) 473 ML BOTTLE TP SCH ×2 (10:00→21:05)
[2019-12-31] MEDS: GLUCERNA 1.2 1000ML LIQUID GT PRN (14:15)
--- NOTE | 2019-12-31 16:27 | NUR ---
INTERDISCIPLINARY PLAN OF CARE CONFERENCE was held today. Patient's daughter was not available to participate in the meeting. Dr. Murguia and the Interdisciplinary Team reviewed the current plan of care in detail. RN reported on patient's medical condition, recent antibiotic treatments, recent vitals, and findings of recent labs. See RN IDT conference notes. See all other disciplines IDT notes and physician's progress notes for additional details.
[2019-12-31 20:25] VITALS: BP 130/69
[2019-12-31] MEDS: ACIDOPHILUS/BULGARICUS CHEW TAB GT SCH (21:04)
[2019-12-31] MEDS: ASCORBIC ACID 500 MG TABLET PO SCH (21:05)
--- NOTE | 2019-12-31 23:54 | NUR ---
PT ON CONT HT 50 VENT WITH TRACH IN PLACE AND SECURED, WITH CURRENT VENT SETTINGS, SUCTIONED LIGHT PALE YELL TINGE SECRETIONS, GOOD COUGH EFFORT, CHANGE HME, NO VENT CHANGES MADE, CHECK CUFF. D JANNETTE SALES & SERVICE ASSOCIATE Addendum: 12/31/19 at 2357 by CHRISTIE BHATIA RT Amended: Links added.
[2020-01-01] MEDS: ARGININE/GLUTAMINE/CALCIUM BMB 1 EACH POWD.PACK GT SCH ×2 (05:31→18:06)
[2020-01-01] MEDS: POLYVINYL ALCOHOL OPHT DROPS 15 ML BOTTLE EACHEYE SCH ×3 (05:31→21:00)
[2020-01-01] MEDS: PROTEIN SUPPLEMENT (PROSTAT) 30 ML LIQUID GT SCH ×3 (05:31→21:00)
[2020-01-01 07:29] VITALS: BP 120/63
[2020-01-01] MEDS: HYDROGEN PEROXIDE 3% 118 ML BOTTLE TP SCH ×2 (08:26→21:01)
[2020-01-01] MEDS: FUROSEMIDE 20 MG TABLET GT SCH (08:32)
[2020-01-01] MEDS: levETIRAcetam 500 MG/5 ML LIQUID UDC GT SCH ×2 (08:32→20:58)
[2020-01-01] MEDS: DIGOXIN 125 MCG TABLET GT SCH (08:32)
[2020-01-01] MEDS: POTASSIUM CHLORIDE 40 MEQ/30 ML LIQUID UDC GT SCH (08:33)
[2020-01-01] MEDS: FAMOTIDINE 20 MG TABLET GT SCH ×2 (08:33→20:59)
[2020-01-01] MEDS: ACETAMINOPHEN 650 MG/20 ML UDC- SA PATIENTS-PAIN ONLY GT PRN (08:34)
[2020-01-01] MEDS: Z GUARD REMEDY PASTE 57 GM TUBE TOP SCH ×2 (08:34→20:59)
[2020-01-01] MEDS: NORMAL SALINE NASAL 45 ML BOTTLE NS SCH (08:34)
[2020-01-01] MEDS: NYSTATIN CREAM 30 GM TUBE TP SCH ×2 (09:26→21:00)
[2020-01-01] MEDS: THERAHONEY GEL 1.5 OZ TUBE TOP SCH ×2 (09:26→20:59)
[2020-01-01] MEDS: SODIUM HYPOCHLORITE 0.125% (QUARTER STRENGTH) 473 ML BOTTLE TP SCH ×2 (09:26→20:59)
[2020-01-01] MEDS: TRIAMCINOLONE ACET 0.1% CREAM 15 GM TUBE TP SCH ×2 (09:26→21:00)
[2020-01-01] MEDS: GLUCERNA 1.2 1000ML LIQUID GT PRN (16:19)
[2020-01-01] MEDS: ACIDOPHILUS/BULGARICUS CHEW TAB GT SCH (20:58)
[2020-01-01] MEDS: ASCORBIC ACID 500 MG TABLET PO SCH (20:59)
[2020-01-01 22:21] VITALS: BP 130/66
[2020-01-02] MEDS: POLYVINYL ALCOHOL OPHT DROPS 15 ML BOTTLE EACHEYE SCH ×3 (05:27→21:25)
[2020-01-02] MEDS: ARGININE/GLUTAMINE/CALCIUM BMB 1 EACH POWD.PACK GT SCH ×2 (05:27→18:00)
[2020-01-02] MEDS: PROTEIN SUPPLEMENT (PROSTAT) 30 ML LIQUID GT SCH ×3 (05:27→21:25)
[2020-01-02 07:26] VITALS: BP 123/57
[2020-01-02] MEDS: FAMOTIDINE 20 MG TABLET GT SCH ×2 (08:50→21:24)
[2020-01-02] MEDS: NORMAL SALINE NASAL 45 ML BOTTLE NS SCH (08:50)
[2020-01-02] MEDS: levETIRAcetam 500 MG/5 ML LIQUID UDC GT SCH ×2 (08:50→21:24)
[2020-01-02] MEDS: FUROSEMIDE 20 MG TABLET GT SCH (08:50)
[2020-01-02] MEDS: POTASSIUM CHLORIDE 40 MEQ/30 ML LIQUID UDC GT SCH (08:50)
[2020-01-02] MEDS: Z GUARD REMEDY PASTE 57 GM TUBE TOP SCH ×2 (08:50→21:25)
[2020-01-02] MEDS: DIGOXIN 125 MCG TABLET GT SCH (08:50)
[2020-01-02] MEDS: HYDROGEN PEROXIDE 3% 118 ML BOTTLE TP SCH ×2 (09:27→20:48)
[2020-01-02] MEDS: THERAHONEY GEL 1.5 OZ TUBE TOP SCH ×2 (09:28→21:25)
[2020-01-02] MEDS: TRIAMCINOLONE ACET 0.1% CREAM 15 GM TUBE TP SCH ×2 (09:28→21:25)
[2020-01-02] MEDS: NYSTATIN CREAM 30 GM TUBE TP SCH ×2 (09:28→21:25)
[2020-01-02] MEDS: SODIUM HYPOCHLORITE 0.125% (QUARTER STRENGTH) 473 ML BOTTLE TP SCH ×2 (09:28→21:25)
[2020-01-02] MEDS: GLUCERNA 1.2 1000ML LIQUID GT PRN (18:01)
[2020-01-02] MEDS: ACIDOPHILUS/BULGARICUS CHEW TAB GT SCH (21:24)
[2020-01-02] MEDS: ASCORBIC ACID 500 MG TABLET PO SCH (21:25)
[2020-01-02 22:46] VITALS: BP 130/64
[2020-01-03] MEDS: POLYVINYL ALCOHOL OPHT DROPS 15 ML BOTTLE EACHEYE SCH ×3 (05:45→21:12)
[2020-01-03] MEDS: ARGININE/GLUTAMINE/CALCIUM BMB 1 EACH POWD.PACK GT SCH ×2 (05:45→17:27)
[2020-01-03] MEDS: PROTEIN SUPPLEMENT (PROSTAT) 30 ML LIQUID GT SCH ×3 (05:45→21:12)
[2020-01-03 07:31] VITALS: BP 126/67
[2020-01-03] MEDS: SODIUM HYPOCHLORITE 0.125% (QUARTER STRENGTH) 473 ML BOTTLE TP SCH ×2 (08:11→21:12)
[2020-01-03] MEDS: levETIRAcetam 500 MG/5 ML LIQUID UDC GT SCH ×2 (08:11→21:12)
[2020-01-03] MEDS: NORMAL SALINE NASAL 45 ML BOTTLE NS SCH (08:11)
[2020-01-03] MEDS: Z GUARD REMEDY PASTE 57 GM TUBE TOP SCH ×2 (08:11→21:12)
[2020-01-03] MEDS: THERAHONEY GEL 1.5 OZ TUBE TOP SCH ×2 (08:11→21:12)
[2020-01-03] MEDS: POTASSIUM CHLORIDE 40 MEQ/30 ML LIQUID UDC GT SCH (08:11)
[2020-01-03] MEDS: FUROSEMIDE 20 MG TABLET GT SCH (08:11)
[2020-01-03] MEDS: DIGOXIN 125 MCG TABLET GT SCH (08:11)
[2020-01-03] MEDS: FAMOTIDINE 20 MG TABLET GT SCH ×2 (08:11→21:12)
[2020-01-03] MEDS: TRIAMCINOLONE ACET 0.1% CREAM 15 GM TUBE TP SCH ×2 (08:12→21:12)
[2020-01-03] MEDS: NYSTATIN CREAM 30 GM TUBE TP SCH ×2 (08:12→21:12)
[2020-01-03] MEDS: HYDROGEN PEROXIDE 3% 118 ML BOTTLE TP SCH ×2 (09:51→21:12)
[2020-01-03] MEDS: ACIDOPHILUS/BULGARICUS CHEW TAB GT SCH (21:11)
[2020-01-03] MEDS: ASCORBIC ACID 500 MG TABLET PO SCH (21:12)
[2020-01-03 22:29] VITALS: BP 129/60
[2020-01-04] MEDS: ARGININE/GLUTAMINE/CALCIUM BMB 1 EACH POWD.PACK GT SCH ×2 (05:18→17:52)
[2020-01-04] MEDS: POLYVINYL ALCOHOL OPHT DROPS 15 ML BOTTLE EACHEYE SCH ×3 (05:18→21:09)
[2020-01-04] MEDS: PROTEIN SUPPLEMENT (PROSTAT) 30 ML LIQUID GT SCH ×3 (05:18→21:09)
[2020-01-04 07:53] VITALS: BP 109/60
[2020-01-04] MEDS: NYSTATIN CREAM 30 GM TUBE TP SCH ×2 (09:00→21:09)
[2020-01-04] MEDS: Z GUARD REMEDY PASTE 57 GM TUBE TOP SCH ×2 (09:00→21:08)
[2020-01-04] MEDS: THERAHONEY GEL 1.5 OZ TUBE TOP SCH ×2 (09:00→21:09)
[2020-01-04] MEDS: HYDROGEN PEROXIDE 3% 118 ML BOTTLE TP SCH ×2 (09:00→21:17)
[2020-01-04] MEDS: SODIUM HYPOCHLORITE 0.125% (QUARTER STRENGTH) 473 ML BOTTLE TP SCH ×2 (09:00→21:09)
[2020-01-04] MEDS: TRIAMCINOLONE ACET 0.1% CREAM 15 GM TUBE TP SCH ×2 (09:00→21:09)
[2020-01-04] MEDS: levETIRAcetam 500 MG/5 ML LIQUID UDC GT SCH ×2 (09:33→21:08)
[2020-01-04] MEDS: DIGOXIN 125 MCG TABLET GT SCH (09:34)
[2020-01-04] MEDS: FUROSEMIDE 20 MG TABLET GT SCH (09:35)
[2020-01-04] MEDS: FAMOTIDINE 20 MG TABLET GT SCH ×2 (09:35→21:08)
[2020-01-04] MEDS: POTASSIUM CHLORIDE 40 MEQ/30 ML LIQUID UDC GT SCH (09:37)
[2020-01-04] MEDS: NORMAL SALINE NASAL 45 ML BOTTLE NS SCH (09:38)
[2020-01-04] MEDS: ASCORBIC ACID 500 MG TABLET PO SCH (21:08)
[2020-01-04] MEDS: ACIDOPHILUS/BULGARICUS CHEW TAB GT SCH (21:08)
[2020-01-04 22:41] VITALS: BP 132/73
[2020-01-04] MEDS: GLUCERNA 1.2 1000ML LIQUID GT PRN (22:50)
[2020-01-05] MEDS: PROTEIN SUPPLEMENT (PROSTAT) 30 ML LIQUID GT SCH ×3 (05:36→21:09)
[2020-01-05] MEDS: ARGININE/GLUTAMINE/CALCIUM BMB 1 EACH POWD.PACK GT SCH ×2 (05:36→18:05)
[2020-01-05] MEDS: POLYVINYL ALCOHOL OPHT DROPS 15 ML BOTTLE EACHEYE SCH ×3 (05:36→21:09)
[2020-01-05 07:43] VITALS: BP 130/70
[2020-01-05] MEDS: levETIRAcetam 500 MG/5 ML LIQUID UDC GT SCH ×2 (08:56→20:52)
[2020-01-05] MEDS: SODIUM HYPOCHLORITE 0.125% (QUARTER STRENGTH) 473 ML BOTTLE TP SCH ×2 (08:57→20:52)
[2020-01-05] MEDS: DIGOXIN 125 MCG TABLET GT SCH (08:57)
[2020-01-05] MEDS: THERAHONEY GEL 1.5 OZ TUBE TOP SCH ×2 (08:57→20:52)
[2020-01-05] MEDS: FUROSEMIDE 20 MG TABLET GT SCH (08:57)
[2020-01-05] MEDS: Z GUARD REMEDY PASTE 57 GM TUBE TOP SCH ×2 (08:57→20:52)
[2020-01-05] MEDS: NYSTATIN CREAM 30 GM TUBE TP SCH ×2 (08:57→20:52)
[2020-01-05] MEDS: TRIAMCINOLONE ACET 0.1% CREAM 15 GM TUBE TP SCH ×2 (08:57→20:52)
[2020-01-05] MEDS: NORMAL SALINE NASAL 45 ML BOTTLE NS SCH (08:57)
[2020-01-05] MEDS: FAMOTIDINE 20 MG TABLET GT SCH ×2 (08:57→20:52)
[2020-01-05] MEDS: POTASSIUM CHLORIDE 40 MEQ/30 ML LIQUID UDC GT SCH (08:57)
[2020-01-05] MEDS: HYDROGEN PEROXIDE 3% 118 ML BOTTLE TP SCH ×2 (10:20→21:10)
[2020-01-05] MEDS: ASCORBIC ACID 500 MG TABLET PO SCH (20:52)
[2020-01-05] MEDS: ACIDOPHILUS/BULGARICUS CHEW TAB GT SCH (20:52)
[2020-01-05 22:43] VITALS: BP 112/76
[2020-01-05 22:58] VITALS: BP 134/69
[2020-01-06] MEDS: GLUCERNA 1.2 1000ML LIQUID GT PRN (02:20)
[2020-01-06] MEDS: PROTEIN SUPPLEMENT (PROSTAT) 30 ML LIQUID GT SCH ×3 (05:18→22:29)
[2020-01-06] MEDS: ARGININE/GLUTAMINE/CALCIUM BMB 1 EACH POWD.PACK GT SCH ×2 (05:18→17:37)
[2020-01-06] MEDS: POLYVINYL ALCOHOL OPHT DROPS 15 ML BOTTLE EACHEYE SCH ×3 (05:18→22:29)
[2020-01-06 07:46] VITALS: BP 132/65
[2020-01-06] MEDS: levETIRAcetam 500 MG/5 ML LIQUID UDC GT SCH ×2 (08:57→21:58)
[2020-01-06] MEDS: Z GUARD REMEDY PASTE 57 GM TUBE TOP SCH ×2 (08:59→21:58)
[2020-01-06] MEDS: NORMAL SALINE NASAL 45 ML BOTTLE NS SCH (08:59)
[2020-01-06] MEDS: FUROSEMIDE 20 MG TABLET GT SCH (08:59)
[2020-01-06] MEDS: SODIUM HYPOCHLORITE 0.125% (QUARTER STRENGTH) 473 ML BOTTLE TP SCH ×2 (08:59→21:58)
[2020-01-06] MEDS: DIGOXIN 125 MCG TABLET GT SCH (08:59)
[2020-01-06] MEDS: TRIAMCINOLONE ACET 0.1% CREAM 15 GM TUBE TP SCH ×2 (08:59→21:58)
[2020-01-06] MEDS: THERAHONEY GEL 1.5 OZ TUBE TOP SCH ×2 (08:59→21:58)
[2020-01-06] MEDS: POTASSIUM CHLORIDE 40 MEQ/30 ML LIQUID UDC GT SCH (08:59)
[2020-01-06] MEDS: FAMOTIDINE 20 MG TABLET GT SCH ×2 (08:59→21:58)
[2020-01-06] MEDS: NYSTATIN CREAM 30 GM TUBE TP SCH ×2 (09:00→21:58)
[2020-01-06] MEDS: HYDROGEN PEROXIDE 3% 118 ML BOTTLE TP SCH ×2 (09:17→21:00)
[2020-01-06 20:39] VITALS: BP 121/64
[2020-01-06] MEDS: ACIDOPHILUS/BULGARICUS CHEW TAB GT SCH (21:58)
[2020-01-06] MEDS: ASCORBIC ACID 500 MG TABLET PO SCH (21:58)
[2020-01-07] MEDS: PROTEIN SUPPLEMENT (PROSTAT) 30 ML LIQUID GT SCH ×3 (05:20→21:27)
[2020-01-07] MEDS: POLYVINYL ALCOHOL OPHT DROPS 15 ML BOTTLE EACHEYE SCH ×3 (05:20→21:27)
[2020-01-07] MEDS: ARGININE/GLUTAMINE/CALCIUM BMB 1 EACH POWD.PACK GT SCH ×2 (05:20→18:22)
[2020-01-07 07:35] VITALS: BP 127/59
[2020-01-07] MEDS: HYDROGEN PEROXIDE 3% 118 ML BOTTLE TP SCH ×2 (08:12→21:37)
[2020-01-07] MEDS: levETIRAcetam 500 MG/5 ML LIQUID UDC GT SCH ×2 (08:33→21:26)
[2020-01-07] MEDS: POTASSIUM CHLORIDE 40 MEQ/30 ML LIQUID UDC GT SCH (08:34)
[2020-01-07] MEDS: FAMOTIDINE 20 MG TABLET GT SCH ×2 (08:34→21:26)
[2020-01-07] MEDS: DIGOXIN 125 MCG TABLET GT SCH (08:34)
[2020-01-07] MEDS: FUROSEMIDE 20 MG TABLET GT SCH (08:34)
[2020-01-07] MEDS: Z GUARD REMEDY PASTE 57 GM TUBE TOP SCH ×2 (08:37→21:26)
[2020-01-07] MEDS: NORMAL SALINE NASAL 45 ML BOTTLE NS SCH (08:37)
[2020-01-07] MEDS: ACETAMINOPHEN 650 MG/20 ML UDC- SA PATIENTS-PAIN ONLY GT PRN (09:20)
[2020-01-07] MEDS: TRIAMCINOLONE ACET 0.1% CREAM 15 GM TUBE TP SCH ×2 (10:20→21:27)
[2020-01-07] MEDS: NYSTATIN CREAM 30 GM TUBE TP SCH ×2 (10:20→21:27)
[2020-01-07] MEDS: THERAHONEY GEL 1.5 OZ TUBE TOP SCH ×2 (10:20→21:27)
[2020-01-07] MEDS: SODIUM HYPOCHLORITE 0.125% (QUARTER STRENGTH) 473 ML BOTTLE TP SCH ×2 (10:20→21:27)
[2020-01-07 20:00] VITALS: BP 116/56
[2020-01-07] MEDS: ASCORBIC ACID 500 MG TABLET PO SCH (21:26)
[2020-01-07] MEDS: ACIDOPHILUS/BULGARICUS CHEW TAB GT SCH (21:26)
[2020-01-08] MEDS: ARGININE/GLUTAMINE/CALCIUM BMB 1 EACH POWD.PACK GT SCH ×2 (05:47→17:09)
[2020-01-08] MEDS: POLYVINYL ALCOHOL OPHT DROPS 15 ML BOTTLE EACHEYE SCH ×3 (05:47→21:12)
[2020-01-08] MEDS: PROTEIN SUPPLEMENT (PROSTAT) 30 ML LIQUID GT SCH ×3 (05:47→21:12)
[2020-01-08 07:39] VITALS: BP 125/56
[2020-01-08] MEDS: levETIRAcetam 500 MG/5 ML LIQUID UDC GT SCH ×2 (08:24→21:08)
[2020-01-08] MEDS: DIGOXIN 125 MCG TABLET GT SCH (08:28)
[2020-01-08] MEDS: NORMAL SALINE NASAL 45 ML BOTTLE NS SCH (08:29)
[2020-01-08] MEDS: FAMOTIDINE 20 MG TABLET GT SCH ×2 (08:29→21:09)
[2020-01-08] MEDS: POTASSIUM CHLORIDE 40 MEQ/30 ML LIQUID UDC GT SCH (08:29)
[2020-01-08] MEDS: FUROSEMIDE 20 MG TABLET GT SCH (08:29)
[2020-01-08] MEDS: Z GUARD REMEDY PASTE 57 GM TUBE TOP SCH ×2 (08:30→21:11)
[2020-01-08] MEDS: HYDROGEN PEROXIDE 3% 118 ML BOTTLE TP SCH ×2 (09:00→21:10)
[2020-01-08] MEDS: THERAHONEY GEL 1.5 OZ TUBE TOP SCH ×2 (10:00→21:11)
[2020-01-08] MEDS: NYSTATIN CREAM 30 GM TUBE TP SCH ×2 (10:00→21:11)
[2020-01-08] MEDS: SODIUM HYPOCHLORITE 0.125% (QUARTER STRENGTH) 473 ML BOTTLE TP SCH ×2 (10:00→21:11)
[2020-01-08] MEDS: TRIAMCINOLONE ACET 0.1% CREAM 15 GM TUBE TP SCH ×2 (10:00→21:11)
[2020-01-08] MEDS: GLUCERNA 1.2 1000ML LIQUID GT PRN (17:09)
--- NOTE | 2020-01-08 18:50 | NUR ---
Sheeba dominique's daughter gave consent to give the Flu vaccine to her mother.
[2020-01-08 20:07] VITALS: BP_SYST 140
[2020-01-08] MEDS: ACIDOPHILUS/BULGARICUS CHEW TAB GT SCH (21:05)
[2020-01-08] MEDS: ASCORBIC ACID 500 MG TABLET PO SCH (21:11)
[2020-01-09] MEDS: ARGININE/GLUTAMINE/CALCIUM BMB 1 EACH POWD.PACK GT SCH ×2 (06:02→17:10)
[2020-01-09] MEDS: PROTEIN SUPPLEMENT (PROSTAT) 30 ML LIQUID GT SCH ×3 (06:02→21:05)
[2020-01-09] MEDS: POLYVINYL ALCOHOL OPHT DROPS 15 ML BOTTLE EACHEYE SCH ×3 (06:02→21:05)
[2020-01-09] MEDS: HYDROGEN PEROXIDE 3% 118 ML BOTTLE TP SCH ×2 (07:23→21:00)
[2020-01-09 07:44] VITALS: BP 138/68
[2020-01-09] MEDS: levETIRAcetam 500 MG/5 ML LIQUID UDC GT SCH ×2 (08:32→21:04)
[2020-01-09] MEDS: DIGOXIN 125 MCG TABLET GT SCH (08:33)
[2020-01-09] MEDS: FAMOTIDINE 20 MG TABLET GT SCH ×2 (08:33→21:04)
[2020-01-09] MEDS: POTASSIUM CHLORIDE 40 MEQ/30 ML LIQUID UDC GT SCH (08:33)
[2020-01-09] MEDS: FUROSEMIDE 20 MG TABLET GT SCH (08:33)
[2020-01-09] MEDS: SODIUM HYPOCHLORITE 0.125% (QUARTER STRENGTH) 473 ML BOTTLE TP SCH ×2 (08:34→21:04)
[2020-01-09] MEDS: NORMAL SALINE NASAL 45 ML BOTTLE NS SCH (08:34)
[2020-01-09] MEDS: Z GUARD REMEDY PASTE 57 GM TUBE TOP SCH ×2 (08:34→21:04)
[2020-01-09] MEDS: NYSTATIN CREAM 30 GM TUBE TP SCH ×2 (08:34→21:04)
[2020-01-09] MEDS: TRIAMCINOLONE ACET 0.1% CREAM 15 GM TUBE TP SCH ×2 (08:34→21:04)
[2020-01-09] MEDS: THERAHONEY GEL 1.5 OZ TUBE TOP SCH ×2 (08:34→21:04)
[2020-01-09] MEDS: GLUCERNA 1.2 1000ML LIQUID GT PRN (17:10)
--- NOTE | 2020-01-09 19:00 | NUR ---
SEEN BY JOSE AVILA N.P AND WITH СВЕТЛАНАO.
--- NOTE | 2020-01-09 19:27 | NUR ---
NEW ORDER OBTAINED FROM ROOPA FLAVIO P.AKenzie FOR FLU VACCINE.
[2020-01-09 20:00] VITALS: BP 125/67
[2020-01-09] MEDS: ASCORBIC ACID 500 MG TABLET PO SCH (21:04)
[2020-01-09] MEDS: ACIDOPHILUS/BULGARICUS CHEW TAB GT SCH (21:04)
[2020-01-10] MEDS: PROTEIN SUPPLEMENT (PROSTAT) 30 ML LIQUID GT SCH ×3 (05:08→22:08)
[2020-01-10] MEDS: POLYVINYL ALCOHOL OPHT DROPS 15 ML BOTTLE EACHEYE SCH ×3 (05:08→22:08)
[2020-01-10] MEDS: ARGININE/GLUTAMINE/CALCIUM BMB 1 EACH POWD.PACK GT SCH ×2 (05:08→17:09)
[2020-01-10 07:43] VITALS: BP 123/67
[2020-01-10] MEDS: HYDROGEN PEROXIDE 3% 118 ML BOTTLE TP SCH ×2 (08:13→21:18)
--- NOTE | 2020-01-10 08:15 | NUR ---
Patient received in stable respiratory condition on HT-50 vent with current MD ordered vent settings. All alarms on and audible, Ambubag and spare trach at bedside. Airway is patent and secured. Suctioned PRN. Will continue to monitor.
[2020-01-10] MEDS: FAMOTIDINE 20 MG TABLET GT SCH ×2 (08:17→21:00)
[2020-01-10] MEDS: DIGOXIN 125 MCG TABLET GT SCH (08:17)
[2020-01-10] MEDS: FUROSEMIDE 20 MG TABLET GT SCH (08:17)
[2020-01-10] MEDS: levETIRAcetam 500 MG/5 ML LIQUID UDC GT SCH ×2 (08:17→21:00)
[2020-01-10] MEDS: SODIUM HYPOCHLORITE 0.125% (QUARTER STRENGTH) 473 ML BOTTLE TP SCH ×2 (08:19→21:00)
[2020-01-10] MEDS: NORMAL SALINE NASAL 45 ML BOTTLE NS SCH (08:19)
[2020-01-10] MEDS: POTASSIUM CHLORIDE 40 MEQ/30 ML LIQUID UDC GT SCH (08:19)
[2020-01-10] MEDS: NYSTATIN CREAM 30 GM TUBE TP SCH ×2 (08:19→21:00)
[2020-01-10] MEDS: Z GUARD REMEDY PASTE 57 GM TUBE TOP SCH ×2 (08:19→21:00)
[2020-01-10] MEDS: TRIAMCINOLONE ACET 0.1% CREAM 15 GM TUBE TP SCH ×2 (08:19→21:00)
[2020-01-10] MEDS: THERAHONEY GEL 1.5 OZ TUBE TOP SCH ×2 (08:19→21:00)
[2020-01-10] MEDS: GLUCERNA 1.2 1000ML LIQUID GT PRN (17:45)
--- NOTE | 2020-01-10 18:55 | NUR ---
NO A/R TO FLU VACCINE ,AFEBRILE.
[2020-01-10 20:12] VITALS: BP 130/70
[2020-01-10] MEDS: ACIDOPHILUS/BULGARICUS CHEW TAB GT SCH (21:00)
[2020-01-10] MEDS: ASCORBIC ACID 500 MG TABLET PO SCH (21:00)
--- NOTE | 2020-01-10 22:52 | NUR ---
Afebrile, no adverse reactions noted from the flu vaccine.
[2020-01-11] MEDS: POLYVINYL ALCOHOL OPHT DROPS 15 ML BOTTLE EACHEYE SCH ×3 (05:36→21:57)
[2020-01-11] MEDS: PROTEIN SUPPLEMENT (PROSTAT) 30 ML LIQUID GT SCH ×3 (05:37→21:57)
[2020-01-11] MEDS: ARGININE/GLUTAMINE/CALCIUM BMB 1 EACH POWD.PACK GT SCH ×2 (05:37→17:13)
[2020-01-11 07:37] VITALS: BP 106/62
[2020-01-11] MEDS: HYDROGEN PEROXIDE 3% 118 ML BOTTLE TP SCH ×2 (07:37→19:12)
[2020-01-11] MEDS: Z GUARD REMEDY PASTE 57 GM TUBE TOP SCH ×2 (08:14→20:21)
[2020-01-11] MEDS: DIGOXIN 125 MCG TABLET GT SCH (08:14)
[2020-01-11] MEDS: NORMAL SALINE NASAL 45 ML BOTTLE NS SCH (08:14)
[2020-01-11] MEDS: POTASSIUM CHLORIDE 40 MEQ/30 ML LIQUID UDC GT SCH (08:14)
[2020-01-11] MEDS: FAMOTIDINE 20 MG TABLET GT SCH ×2 (08:14→20:21)
[2020-01-11] MEDS: levETIRAcetam 500 MG/5 ML LIQUID UDC GT SCH ×2 (08:14→20:21)
[2020-01-11] MEDS: FUROSEMIDE 20 MG TABLET GT SCH (08:14)
[2020-01-11] MEDS: TRIAMCINOLONE ACET 0.1% CREAM 15 GM TUBE TP SCH ×2 (08:15→20:22)
[2020-01-11] MEDS: NYSTATIN CREAM 30 GM TUBE TP SCH ×2 (08:15→20:22)
[2020-01-11] MEDS: SODIUM HYPOCHLORITE 0.125% (QUARTER STRENGTH) 473 ML BOTTLE TP SCH ×2 (08:15→20:21)
[2020-01-11] MEDS: THERAHONEY GEL 1.5 OZ TUBE TOP SCH ×2 (08:15→20:21)
[2020-01-11] MEDS: GLUCERNA 1.2 1000ML LIQUID GT PRN (17:20)
--- NOTE | 2020-01-11 18:19 | NUR ---
NO A/R TO FLU VACCINE,AFEBRILE.
[2020-01-11 20:04] VITALS: BP 132/70
[2020-01-11] MEDS: ASCORBIC ACID 500 MG TABLET PO SCH (20:21)
[2020-01-11] MEDS: ACIDOPHILUS/BULGARICUS CHEW TAB GT SCH (20:21)
--- NOTE | 2020-01-11 21:52 | NUR ---
Afebrile, no adverse reactions from flu vaccine, no redness on injection site.
[2020-01-12] MEDS: POLYVINYL ALCOHOL OPHT DROPS 15 ML BOTTLE EACHEYE SCH ×3 (06:39→21:31)
[2020-01-12] MEDS: PROTEIN SUPPLEMENT (PROSTAT) 30 ML LIQUID GT SCH ×3 (06:39→21:31)
[2020-01-12] MEDS: ARGININE/GLUTAMINE/CALCIUM BMB 1 EACH POWD.PACK GT SCH ×2 (06:39→17:32)
[2020-01-12 07:36] VITALS: BP 126/73
[2020-01-12] MEDS: HYDROGEN PEROXIDE 3% 118 ML BOTTLE TP SCH ×2 (07:54→21:12)
[2020-01-12] MEDS: DIGOXIN 125 MCG TABLET GT SCH (08:23)
[2020-01-12] MEDS: Z GUARD REMEDY PASTE 57 GM TUBE TOP SCH ×2 (08:23→21:29)
[2020-01-12] MEDS: FAMOTIDINE 20 MG TABLET GT SCH ×2 (08:23→21:29)
[2020-01-12] MEDS: THERAHONEY GEL 1.5 OZ TUBE TOP SCH ×2 (08:23→21:30)
[2020-01-12] MEDS: FUROSEMIDE 20 MG TABLET GT SCH (08:23)
[2020-01-12] MEDS: POTASSIUM CHLORIDE 40 MEQ/30 ML LIQUID UDC GT SCH (08:23)
[2020-01-12] MEDS: NORMAL SALINE NASAL 45 ML BOTTLE NS SCH (08:23)
[2020-01-12] MEDS: levETIRAcetam 500 MG/5 ML LIQUID UDC GT SCH ×2 (08:23→21:28)
[2020-01-12] MEDS: TRIAMCINOLONE ACET 0.1% CREAM 15 GM TUBE TP SCH ×2 (08:24→21:30)
[2020-01-12] MEDS: SODIUM HYPOCHLORITE 0.125% (QUARTER STRENGTH) 473 ML BOTTLE TP SCH ×2 (08:24→21:30)
[2020-01-12] MEDS: NYSTATIN CREAM 30 GM TUBE TP SCH ×2 (08:24→21:30)
--- NOTE | 2020-01-12 13:56 | NUR ---
NO A/R TO FLU VACCINE ,AFEBRILE.
[2020-01-12 20:17] VITALS: BP 131/63
[2020-01-12] MEDS: ACIDOPHILUS/BULGARICUS CHEW TAB GT SCH (21:28)
[2020-01-12] MEDS: ASCORBIC ACID 500 MG TABLET PO SCH (21:29)
[2020-01-13] MEDS: GLUCERNA 1.2 1000ML LIQUID GT PRN (00:23)
[2020-01-13] MEDS: POLYVINYL ALCOHOL OPHT DROPS 15 ML BOTTLE EACHEYE SCH ×3 (05:00→21:16)
[2020-01-13] MEDS: PROTEIN SUPPLEMENT (PROSTAT) 30 ML LIQUID GT SCH ×3 (05:10→21:16)
[2020-01-13] MEDS: ARGININE/GLUTAMINE/CALCIUM BMB 1 EACH POWD.PACK GT SCH ×2 (05:10→17:39)
--- NOTE | 2020-01-13 06:59 | NUR ---
No A/R to flu vaccine, afebrile.
[2020-01-13 07:36] VITALS: BP 139/67
[2020-01-13] MEDS: NORMAL SALINE NASAL 45 ML BOTTLE NS SCH (08:30)
[2020-01-13] MEDS: THERAHONEY GEL 1.5 OZ TUBE TOP SCH ×2 (08:30→21:15)
[2020-01-13] MEDS: levETIRAcetam 500 MG/5 ML LIQUID UDC GT SCH ×2 (08:30→21:14)
[2020-01-13] MEDS: POTASSIUM CHLORIDE 40 MEQ/30 ML LIQUID UDC GT SCH (08:30)
[2020-01-13] MEDS: Z GUARD REMEDY PASTE 57 GM TUBE TOP SCH ×2 (08:30→21:15)
[2020-01-13] MEDS: DIGOXIN 125 MCG TABLET GT SCH (08:30)
[2020-01-13] MEDS: SODIUM HYPOCHLORITE 0.125% (QUARTER STRENGTH) 473 ML BOTTLE TP SCH ×2 (08:30→21:15)
[2020-01-13] MEDS: FAMOTIDINE 20 MG TABLET GT SCH ×2 (08:30→21:14)
[2020-01-13] MEDS: FUROSEMIDE 20 MG TABLET GT SCH (08:30)
[2020-01-13] MEDS: NYSTATIN CREAM 30 GM TUBE TP SCH ×2 (08:31→21:16)
[2020-01-13] MEDS: TRIAMCINOLONE ACET 0.1% CREAM 15 GM TUBE TP SCH ×2 (08:31→21:15)
[2020-01-13] MEDS: HYDROGEN PEROXIDE 3% 118 ML BOTTLE TP SCH ×2 (09:47→21:40)
--- NOTE | 2020-01-13 15:47 | NUR ---
SEEN BY ROOPA Dixon AND WITH NNO.
[2020-01-13 20:32] VITALS: BP 150/73
[2020-01-13] MEDS: ASCORBIC ACID 500 MG TABLET PO SCH (21:14)
[2020-01-13] MEDS: ACIDOPHILUS/BULGARICUS CHEW TAB GT SCH (21:14)
[2020-01-14] MEDS: GLUCERNA 1.2 1000ML LIQUID GT PRN (04:17)
[2020-01-14] MEDS: POLYVINYL ALCOHOL OPHT DROPS 15 ML BOTTLE EACHEYE SCH ×3 (05:10→22:26)
[2020-01-14] MEDS: ARGININE/GLUTAMINE/CALCIUM BMB 1 EACH POWD.PACK GT SCH ×2 (05:11→17:49)
[2020-01-14] MEDS: PROTEIN SUPPLEMENT (PROSTAT) 30 ML LIQUID GT SCH ×3 (05:11→22:26)
[2020-01-14 07:43] VITALS: BP 131/64
[2020-01-14] MEDS: HYDROGEN PEROXIDE 3% 118 ML BOTTLE TP SCH ×2 (08:14→21:23)
[2020-01-14] MEDS: POTASSIUM CHLORIDE 40 MEQ/30 ML LIQUID UDC GT SCH (08:18)
[2020-01-14] MEDS: FUROSEMIDE 20 MG TABLET GT SCH (08:18)
[2020-01-14] MEDS: FAMOTIDINE 20 MG TABLET GT SCH ×2 (08:18→20:54)
[2020-01-14] MEDS: levETIRAcetam 500 MG/5 ML LIQUID UDC GT SCH ×2 (08:18→20:53)
[2020-01-14] MEDS: NORMAL SALINE NASAL 45 ML BOTTLE NS SCH (08:18)
[2020-01-14] MEDS: Z GUARD REMEDY PASTE 57 GM TUBE TOP SCH ×2 (08:18→20:54)
[2020-01-14] MEDS: DIGOXIN 125 MCG TABLET GT SCH (08:18)
[2020-01-14] MEDS: NYSTATIN CREAM 30 GM TUBE TP SCH ×2 (08:19→20:55)
[2020-01-14] MEDS: SODIUM HYPOCHLORITE 0.125% (QUARTER STRENGTH) 473 ML BOTTLE TP SCH ×2 (08:19→20:55)
[2020-01-14] MEDS: THERAHONEY GEL 1.5 OZ TUBE TOP SCH ×2 (08:19→20:54)
[2020-01-14] MEDS: TRIAMCINOLONE ACET 0.1% CREAM 15 GM TUBE TP SCH ×2 (08:19→20:55)
--- NOTE | 2020-01-14 16:52 | NUR ---
Called Sheeba dominique's daughter made aware of the covid test will be done today.
[2020-01-14 20:30] VITALS: BP 143/70
[2020-01-14] MEDS: ACIDOPHILUS/BULGARICUS CHEW TAB GT SCH (20:53)
[2020-01-14] MEDS: ASCORBIC ACID 500 MG TABLET PO SCH (20:54)
[2020-01-15] MEDS: POLYVINYL ALCOHOL OPHT DROPS 15 ML BOTTLE EACHEYE SCH ×3 (05:15→21:00)
[2020-01-15] MEDS: PROTEIN SUPPLEMENT (PROSTAT) 30 ML LIQUID GT SCH ×3 (05:15→21:00)
[2020-01-15] MEDS: ARGININE/GLUTAMINE/CALCIUM BMB 1 EACH POWD.PACK GT SCH ×2 (05:15→17:28)
[2020-01-15] MEDS: HYDROGEN PEROXIDE 3% 118 ML BOTTLE TP SCH ×2 (07:24→21:11)
[2020-01-15 07:51] VITALS: BP 127/68
[2020-01-15] MEDS: TRIAMCINOLONE ACET 0.1% CREAM 15 GM TUBE TP SCH ×2 (09:00→20:58)
[2020-01-15] MEDS: POTASSIUM CHLORIDE 40 MEQ/30 ML LIQUID UDC GT SCH (09:00)
[2020-01-15] MEDS: FAMOTIDINE 20 MG TABLET GT SCH ×2 (09:00→20:58)
[2020-01-15] MEDS: levETIRAcetam 500 MG/5 ML LIQUID UDC GT SCH ×2 (09:00→20:57)
[2020-01-15] MEDS: Z GUARD REMEDY PASTE 57 GM TUBE TOP SCH ×2 (09:00→20:58)
[2020-01-15] MEDS: DIGOXIN 125 MCG TABLET GT SCH (09:00)
[2020-01-15] MEDS: NORMAL SALINE NASAL 45 ML BOTTLE NS SCH (09:00)
[2020-01-15] MEDS: NYSTATIN CREAM 30 GM TUBE TP SCH ×2 (09:00→20:59)
[2020-01-15] MEDS: FUROSEMIDE 20 MG TABLET GT SCH (09:00)
[2020-01-15] MEDS: SODIUM HYPOCHLORITE 0.125% (QUARTER STRENGTH) 473 ML BOTTLE TP SCH ×2 (09:00→20:58)
[2020-01-15] MEDS: THERAHONEY GEL 1.5 OZ TUBE TOP SCH ×2 (09:00→20:58)
--- NOTE | 2020-01-15 17:58 | NUR ---
Seen and examined by Dr Betancur with new orders noted.
--- NOTE | 2020-01-15 18:00 | NUR ---
Seen and examined by Dr Murguia ,with no new orders noted.
[2020-01-15 20:15] VITALS: BP 130/67
--- NOTE | 2020-01-15 20:19 | NUR ---
Kaushik from lab called re: COVID-19 test result which he said is negative.
[2020-01-15] MEDS: ACIDOPHILUS/BULGARICUS CHEW TAB GT SCH (20:57)
[2020-01-15] MEDS: ASCORBIC ACID 500 MG TABLET PO SCH (20:58)
[2020-01-16] MEDS: POLYVINYL ALCOHOL OPHT DROPS 15 ML BOTTLE EACHEYE SCH ×3 (05:13→22:00)
[2020-01-16] MEDS: PROTEIN SUPPLEMENT (PROSTAT) 30 ML LIQUID GT SCH ×3 (05:13→22:00)
[2020-01-16] MEDS: ARGININE/GLUTAMINE/CALCIUM BMB 1 EACH POWD.PACK GT SCH ×2 (05:13→17:28)
[2020-01-16 06:58] LABS: BASOPHILS % (AUTO) 0.7 % (0.0-2.0); EOSINOPHILS # (AUTO) 0.1 K/uL (0.0-0.7); HEMATOCRIT 36.2 % (31.2-41.9); LYMPHOCYTES # (AUTO) 1.5 K/uL (20.0-40.0); LYMPHOCYTES % (AUTO) 36.1 % (20.5-51.5); MEAN CORPUSCULAR HEMOGLOBIN 30.6 uug (24.7-32.8); MEAN CORPUSCULAR HGB CONC 33 g/dL (32.3-35.6); MEAN CORPUSCULAR VOLUME 92.1 fL (75.5-95.3); MONOCYTES # (AUTO) 0.5 K/uL (2.0-10.0); MONOCYTES % (AUTO) 11.1 % (0.0-11.0); NEUTROPHILS # (AUTO) 2.1 K/uL (1.8-8.9); NEUTROPHILS % (AUTO) 49.1 % (38.5-71.5); PLATELET COUNT (AUTO) 100 K/uL (179-408); RED BLOOD CELL COUNT(AUTO) 3.94 MIL/uL (3.63-4.92); WHITE BLOOD COUNT (AUTO) 4.2 K/uL (3.8-11.8)
[2020-01-16 07:05] LABS: CARBON DIOXIDE 35 mmol/L (21-32); CHLORIDE 104 mmol/L (98-107); CREATININE 0.5 mg/dL (0.6-1.3); GLUCOSE 101 mg/dL (74-106); MAGNESIUM 2.5 mg/dL (1.8-2.4); PHOSPHOROUS 3.3 mg/dL (2.5-4.9); POTASSIUM 3.5 mmol/L (3.5-5.1); UREA NITROGEN, BLOOD 35 mg/dL (7-18)
[2020-01-16 07:28] VITALS: BP 130/53
[2020-01-16] MEDS: HYDROGEN PEROXIDE 3% 118 ML BOTTLE TP SCH ×2 (09:00→21:28)
[2020-01-16] MEDS: levETIRAcetam 500 MG/5 ML LIQUID UDC GT SCH ×2 (09:19→20:40)
[2020-01-16] MEDS: DIGOXIN 125 MCG TABLET GT SCH (09:24)
[2020-01-16] MEDS: FAMOTIDINE 20 MG TABLET GT SCH ×2 (09:24→20:40)
[2020-01-16] MEDS: FUROSEMIDE 20 MG TABLET GT SCH (09:24)
[2020-01-16] MEDS: Z GUARD REMEDY PASTE 57 GM TUBE TOP SCH ×2 (09:26→20:40)
[2020-01-16] MEDS: SODIUM HYPOCHLORITE 0.125% (QUARTER STRENGTH) 473 ML BOTTLE TP SCH ×2 (09:26→20:40)
[2020-01-16] MEDS: THERAHONEY GEL 1.5 OZ TUBE TOP SCH ×2 (09:26→20:40)
[2020-01-16] MEDS: POTASSIUM CHLORIDE 40 MEQ/30 ML LIQUID UDC GT SCH (09:26)
[2020-01-16] MEDS: NORMAL SALINE NASAL 45 ML BOTTLE NS SCH (09:26)
[2020-01-16] MEDS: NYSTATIN CREAM 30 GM TUBE TP SCH ×2 (09:27→20:41)
[2020-01-16] MEDS: TRIAMCINOLONE ACET 0.1% CREAM 15 GM TUBE TP SCH ×2 (09:27→20:41)
--- NOTE | 2020-01-16 15:56 | NUR ---
DSD called patient's daughter Sheeba and informed her of possible COVID-19 exposure on the subacute unit. DSD also informed Sheeba of the testing plan for the next 14 days, as mandated by [facility] regulations. DSD stated that Sheeba would be notified by nursing after each test result. Sheeba expressed understanding and thanked this DSD for the information provided.
[2020-01-16 20:39] VITALS: BP 144/71
[2020-01-16] MEDS: ACIDOPHILUS/BULGARICUS CHEW TAB GT SCH (20:39)
[2020-01-16] MEDS: ASCORBIC ACID 500 MG TABLET PO SCH (20:40)
--- NOTE | 2020-01-17 01:22 | NUR ---
Patient is afebrile, No respiratory distress noted, 02 sat is 100%, will continue monitor.
[2020-01-17] MEDS: POLYVINYL ALCOHOL OPHT DROPS 15 ML BOTTLE EACHEYE SCH ×3 (06:14→21:32)
[2020-01-17] MEDS: PROTEIN SUPPLEMENT (PROSTAT) 30 ML LIQUID GT SCH ×3 (06:14→21:32)
[2020-01-17] MEDS: ARGININE/GLUTAMINE/CALCIUM BMB 1 EACH POWD.PACK GT SCH ×2 (06:14→18:00)
[2020-01-17 07:40] VITALS: BP 136/58
[2020-01-17] MEDS: levETIRAcetam 500 MG/5 ML LIQUID UDC GT SCH ×2 (08:45→21:31)
[2020-01-17] MEDS: DIGOXIN 125 MCG TABLET GT SCH (08:46)
[2020-01-17] MEDS: THERAHONEY GEL 1.5 OZ TUBE TOP SCH ×2 (08:47→21:31)
[2020-01-17] MEDS: Z GUARD REMEDY PASTE 57 GM TUBE TOP SCH ×2 (08:47→21:31)
[2020-01-17] MEDS: POTASSIUM CHLORIDE 40 MEQ/30 ML LIQUID UDC GT SCH (08:47)
[2020-01-17] MEDS: NYSTATIN CREAM 30 GM TUBE TP SCH ×2 (08:47→21:32)
[2020-01-17] MEDS: FAMOTIDINE 20 MG TABLET GT SCH ×2 (08:47→21:31)
[2020-01-17] MEDS: NORMAL SALINE NASAL 45 ML BOTTLE NS SCH (08:47)
[2020-01-17] MEDS: TRIAMCINOLONE ACET 0.1% CREAM 15 GM TUBE TP SCH ×2 (08:47→21:32)
[2020-01-17] MEDS: FUROSEMIDE 20 MG TABLET GT SCH (08:47)
[2020-01-17] MEDS: SODIUM HYPOCHLORITE 0.125% (QUARTER STRENGTH) 473 ML BOTTLE TP SCH ×2 (08:47→21:31)
[2020-01-17] MEDS: HYDROGEN PEROXIDE 3% 118 ML BOTTLE TP SCH ×2 (10:00→21:55)
[2020-01-17 20:10] VITALS: BP 139/62
[2020-01-17] MEDS: ACIDOPHILUS/BULGARICUS CHEW TAB GT SCH (21:30)
[2020-01-17] MEDS: ASCORBIC ACID 500 MG TABLET PO SCH (21:31)
[2020-01-18] MEDS: ARGININE/GLUTAMINE/CALCIUM BMB 1 EACH POWD.PACK GT SCH ×2 (05:18→17:12)
[2020-01-18] MEDS: PROTEIN SUPPLEMENT (PROSTAT) 30 ML LIQUID GT SCH ×3 (05:18→21:13)
[2020-01-18] MEDS: POLYVINYL ALCOHOL OPHT DROPS 15 ML BOTTLE EACHEYE SCH ×3 (05:18→21:13)
[2020-01-18 07:45] VITALS: BP 125/67
[2020-01-18] MEDS: levETIRAcetam 500 MG/5 ML LIQUID UDC GT SCH ×2 (08:22→21:11)
[2020-01-18] MEDS: DIGOXIN 125 MCG TABLET GT SCH (08:24)
[2020-01-18] MEDS: POTASSIUM CHLORIDE 40 MEQ/30 ML LIQUID UDC GT SCH (08:25)
[2020-01-18] MEDS: FUROSEMIDE 20 MG TABLET GT SCH (08:25)
[2020-01-18] MEDS: FAMOTIDINE 20 MG TABLET GT SCH ×2 (08:25→21:11)
[2020-01-18] MEDS: NORMAL SALINE NASAL 45 ML BOTTLE NS SCH (08:25)
[2020-01-18] MEDS: ACETAMINOPHEN 650 MG/20 ML UDC- SA PATIENTS-PAIN ONLY GT PRN (08:26)
[2020-01-18] MEDS: HYDROGEN PEROXIDE 3% 118 ML BOTTLE TP SCH ×2 (09:05→21:26)
[2020-01-18] MEDS: TRIAMCINOLONE ACET 0.1% CREAM 15 GM TUBE TP SCH ×2 (09:11→21:12)
[2020-01-18] MEDS: SODIUM HYPOCHLORITE 0.125% (QUARTER STRENGTH) 473 ML BOTTLE TP SCH ×2 (09:11→21:12)
[2020-01-18] MEDS: Z GUARD REMEDY PASTE 57 GM TUBE TOP SCH ×2 (09:11→21:11)
[2020-01-18] MEDS: THERAHONEY GEL 1.5 OZ TUBE TOP SCH ×2 (09:11→21:12)
[2020-01-18] MEDS: NYSTATIN CREAM 30 GM TUBE TP SCH ×2 (09:11→21:12)
[2020-01-18] MEDS: GLUCERNA 1.2 1000ML LIQUID GT PRN (17:41)
[2020-01-18 20:52] VITALS: BP_SYST 150
[2020-01-18] MEDS: ACIDOPHILUS/BULGARICUS CHEW TAB GT SCH (21:10)
[2020-01-18] MEDS: ASCORBIC ACID 500 MG TABLET PO SCH (21:11)
[2020-01-19] MEDS: ARGININE/GLUTAMINE/CALCIUM BMB 1 EACH POWD.PACK GT SCH ×2 (05:14→17:47)
[2020-01-19] MEDS: PROTEIN SUPPLEMENT (PROSTAT) 30 ML LIQUID GT SCH ×3 (05:14→21:47)
[2020-01-19] MEDS: POLYVINYL ALCOHOL OPHT DROPS 15 ML BOTTLE EACHEYE SCH ×3 (05:14→21:47)
[2020-01-19 07:41] VITALS: BP 137/60
[2020-01-19] MEDS: levETIRAcetam 500 MG/5 ML LIQUID UDC GT SCH ×2 (08:26→21:46)
[2020-01-19] MEDS: DIGOXIN 125 MCG TABLET GT SCH (08:28)
[2020-01-19] MEDS: FUROSEMIDE 20 MG TABLET GT SCH (08:28)
[2020-01-19] MEDS: POTASSIUM CHLORIDE 40 MEQ/30 ML LIQUID UDC GT SCH (08:28)
[2020-01-19] MEDS: FAMOTIDINE 20 MG TABLET GT SCH ×2 (08:28→21:46)
[2020-01-19] MEDS: SODIUM HYPOCHLORITE 0.125% (QUARTER STRENGTH) 473 ML BOTTLE TP SCH ×2 (08:29→21:46)
[2020-01-19] MEDS: TRIAMCINOLONE ACET 0.1% CREAM 15 GM TUBE TP SCH ×2 (08:29→21:47)
[2020-01-19] MEDS: NORMAL SALINE NASAL 45 ML BOTTLE NS SCH (08:29)
[2020-01-19] MEDS: THERAHONEY GEL 1.5 OZ TUBE TOP SCH ×2 (08:29→21:46)
[2020-01-19] MEDS: NYSTATIN CREAM 30 GM TUBE TP SCH ×2 (08:29→21:47)
[2020-01-19] MEDS: Z GUARD REMEDY PASTE 57 GM TUBE TOP SCH ×2 (08:29→21:46)
[2020-01-19] MEDS: HYDROGEN PEROXIDE 3% 118 ML BOTTLE TP SCH ×2 (09:00→21:35)
[2020-01-19 20:44] VITALS: BP 128/62
[2020-01-19] MEDS: ACIDOPHILUS/BULGARICUS CHEW TAB GT SCH (21:46)
[2020-01-19] MEDS: ASCORBIC ACID 500 MG TABLET PO SCH (21:46)
[2020-01-19] MEDS: GLUCERNA 1.2 1000ML LIQUID GT PRN (23:50)
[2020-01-20] MEDS: POLYVINYL ALCOHOL OPHT DROPS 15 ML BOTTLE EACHEYE SCH ×3 (05:33→21:32)
[2020-01-20] MEDS: ARGININE/GLUTAMINE/CALCIUM BMB 1 EACH POWD.PACK GT SCH ×2 (05:33→17:17)
[2020-01-20] MEDS: PROTEIN SUPPLEMENT (PROSTAT) 30 ML LIQUID GT SCH ×3 (05:34→21:32)
[2020-01-20 07:59] VITALS: BP 130/61
[2020-01-20] MEDS: levETIRAcetam 500 MG/5 ML LIQUID UDC GT SCH ×2 (08:55→21:31)
[2020-01-20] MEDS: FAMOTIDINE 20 MG TABLET GT SCH ×2 (08:57→21:31)
[2020-01-20] MEDS: FUROSEMIDE 20 MG TABLET GT SCH (08:57)
[2020-01-20] MEDS: DIGOXIN 125 MCG TABLET GT SCH (08:57)
[2020-01-20] MEDS: POTASSIUM CHLORIDE 40 MEQ/30 ML LIQUID UDC GT SCH (08:57)
[2020-01-20] MEDS: THERAHONEY GEL 1.5 OZ TUBE TOP SCH ×2 (08:59→21:32)
[2020-01-20] MEDS: NORMAL SALINE NASAL 45 ML BOTTLE NS SCH (08:59)
[2020-01-20] MEDS: Z GUARD REMEDY PASTE 57 GM TUBE TOP SCH ×2 (08:59→21:32)
[2020-01-20] MEDS: SODIUM HYPOCHLORITE 0.125% (QUARTER STRENGTH) 473 ML BOTTLE TP SCH ×2 (09:01→21:32)
[2020-01-20] MEDS: NYSTATIN CREAM 30 GM TUBE TP SCH ×2 (09:01→21:32)
[2020-01-20] MEDS: TRIAMCINOLONE ACET 0.1% CREAM 15 GM TUBE TP SCH ×2 (09:01→21:32)
[2020-01-20] MEDS: HYDROGEN PEROXIDE 3% 118 ML BOTTLE TP SCH ×2 (09:17→21:33)
[2020-01-20 20:10] VITALS: BP 152/67
[2020-01-20] MEDS: ASCORBIC ACID 500 MG TABLET PO SCH (21:31)
[2020-01-20] MEDS: ACIDOPHILUS/BULGARICUS CHEW TAB GT SCH (21:31)
[2020-01-21] MEDS: POLYVINYL ALCOHOL OPHT DROPS 15 ML BOTTLE EACHEYE SCH ×3 (05:50→21:12)
[2020-01-21] MEDS: PROTEIN SUPPLEMENT (PROSTAT) 30 ML LIQUID GT SCH ×3 (05:51→21:12)
[2020-01-21] MEDS: ARGININE/GLUTAMINE/CALCIUM BMB 1 EACH POWD.PACK GT SCH ×2 (05:51→17:01)
[2020-01-21] MEDS: GLUCERNA 1.2 1000ML LIQUID GT PRN (07:13)
[2020-01-21 07:20] LABS: BASOPHILS % (AUTO) 0.6 % (0.0-2.0); EOSINOPHILS # (AUTO) 0.1 K/uL (0.0-0.7); EOSINOPHILS % (AUTO) 3.3 % (0.0-7.0); HEMATOCRIT 36.9 % (31.2-41.9); HEMOGLOBIN 12.3 g/dL (10.9-14.3); LYMPHOCYTES # (AUTO) 1.6 K/uL (20.0-40.0); MEAN CORPUSCULAR HEMOGLOBIN 30.8 uug (24.7-32.8); MEAN CORPUSCULAR HGB CONC 33 g/dL (32.3-35.6); MEAN CORPUSCULAR VOLUME 92.6 fL (75.5-95.3); MONOCYTES # (AUTO) 0.4 K/uL (2.0-10.0); MONOCYTES % (AUTO) 10.4 % (0.0-11.0); NEUTROPHILS % (AUTO) 47.7 % (38.5-71.5); PLATELET COUNT (AUTO) 106 K/uL (179-408); RED BLOOD CELL COUNT(AUTO) 3.99 MIL/uL (3.63-4.92); WHITE BLOOD COUNT (AUTO) 4.2 K/uL (3.8-11.8)
[2020-01-21 07:24] VITALS: BP 129/71
[2020-01-21 07:42] LABS: ALANINE AMINOTRANSFERASE 23 U/L (14-59); ALKALINE PHOSPHATASE 181 U/L (50-136); ASPARTATE AMINOTRANSFERASE 28 U/L (15-37); BILIRUBIN,TOTAL 0.3 mg/dL (0.2-1.0); CARBON DIOXIDE 33 mmol/L (21-32); CHLORIDE 106 mmol/L (98-107); CREATININE 0.5 mg/dL (0.6-1.3); GLUCOSE 94 mg/dL (74-106); POTASSIUM 3.5 mmol/L (3.5-5.1); TOTAL PROTEIN, SERUM 7.6 g/dL (6.4-8.2); UREA NITROGEN, BLOOD 30 mg/dL (7-18)
[2020-01-21] MEDS: HYDROGEN PEROXIDE 3% 118 ML BOTTLE TP SCH ×2 (08:06→21:05)
[2020-01-21] MEDS: DIGOXIN 125 MCG TABLET GT SCH (09:07)
[2020-01-21] MEDS: levETIRAcetam 500 MG/5 ML LIQUID UDC GT SCH ×2 (09:07→21:09)
[2020-01-21] MEDS: FUROSEMIDE 20 MG TABLET GT SCH (09:08)
[2020-01-21] MEDS: FAMOTIDINE 20 MG TABLET GT SCH ×2 (09:08→21:09)
[2020-01-21] MEDS: Z GUARD REMEDY PASTE 57 GM TUBE TOP SCH ×2 (09:09→21:11)
[2020-01-21] MEDS: SODIUM HYPOCHLORITE 0.125% (QUARTER STRENGTH) 473 ML BOTTLE TP SCH ×2 (09:09→21:12)
[2020-01-21] MEDS: POTASSIUM CHLORIDE 40 MEQ/30 ML LIQUID UDC GT SCH (09:09)
[2020-01-21] MEDS: NORMAL SALINE NASAL 45 ML BOTTLE NS SCH (09:09)
[2020-01-21] MEDS: THERAHONEY GEL 1.5 OZ TUBE TOP SCH ×2 (09:09→21:11)
[2020-01-21] MEDS: NYSTATIN CREAM 30 GM TUBE TP SCH ×2 (09:09→21:12)
[2020-01-21] MEDS: TRIAMCINOLONE ACET 0.1% CREAM 15 GM TUBE TP SCH ×2 (09:09→21:12)
[2020-01-21 20:00] VITALS: BP 111/62
[2020-01-21] MEDS: ACIDOPHILUS/BULGARICUS CHEW TAB GT SCH (21:09)
[2020-01-21] MEDS: ASCORBIC ACID 500 MG TABLET PO SCH (21:11)
[2020-01-22] MEDS: ARGININE/GLUTAMINE/CALCIUM BMB 1 EACH POWD.PACK GT SCH ×2 (05:46→17:14)
[2020-01-22] MEDS: PROTEIN SUPPLEMENT (PROSTAT) 30 ML LIQUID GT SCH ×3 (05:46→21:04)
[2020-01-22] MEDS: POLYVINYL ALCOHOL OPHT DROPS 15 ML BOTTLE EACHEYE SCH ×3 (05:46→21:04)
[2020-01-22] MEDS: HYDROGEN PEROXIDE 3% 118 ML BOTTLE TP SCH ×2 (07:15→21:33)
[2020-01-22 07:43] VITALS: BP 113/60
[2020-01-22] MEDS: levETIRAcetam 500 MG/5 ML LIQUID UDC GT SCH ×2 (08:43→21:02)
[2020-01-22] MEDS: FAMOTIDINE 20 MG TABLET GT SCH ×2 (08:44→21:03)
[2020-01-22] MEDS: FUROSEMIDE 20 MG TABLET GT SCH (08:44)
[2020-01-22] MEDS: NORMAL SALINE NASAL 45 ML BOTTLE NS SCH (08:44)
[2020-01-22] MEDS: DIGOXIN 125 MCG TABLET GT SCH (08:44)
[2020-01-22] MEDS: TRIAMCINOLONE ACET 0.1% CREAM 15 GM TUBE TP SCH ×2 (08:44→21:04)
[2020-01-22] MEDS: POTASSIUM CHLORIDE 40 MEQ/30 ML LIQUID UDC GT SCH (08:44)
[2020-01-22] MEDS: SODIUM HYPOCHLORITE 0.125% (QUARTER STRENGTH) 473 ML BOTTLE TP SCH ×2 (08:44→21:04)
[2020-01-22] MEDS: THERAHONEY GEL 1.5 OZ TUBE TOP SCH ×2 (08:44→21:03)
[2020-01-22] MEDS: Z GUARD REMEDY PASTE 57 GM TUBE TOP SCH ×2 (08:44→21:03)
[2020-01-22] MEDS: NYSTATIN CREAM 30 GM TUBE TP SCH ×2 (08:45→21:04)
--- NOTE | 2020-01-22 18:00 | NUR ---
Pt's daughter Sheeba notified RE: Covid 19 test results negative.
[2020-01-22 20:00] VITALS: BP 115/61
[2020-01-22] MEDS: ACIDOPHILUS/BULGARICUS CHEW TAB GT SCH (21:02)
[2020-01-22] MEDS: ASCORBIC ACID 500 MG TABLET PO SCH (21:03)
[2020-01-23 04:29] LABS: *BILIRUBIN,URIN NEGATIVE (NEGATIVE); *BLOOD, URINE NEGATIVE (NEGATIVE); *CLARITY,URINE CLEAR (CLEAR); *COLOR,URINE YELLOW (YELLOW); *KETONES,URINE NEGATIVE (NEGATIVE); LEUKOCYTE ESTERASE ,URINE NEGATIVE (NEGATIVE); NITRITE, URINE NEGATIVE (NEGATIVE); PH,URINE 5.5 (5.0-8.0); UGLUCOSE NEGATIVE (NEGATIVE)
[2020-01-23] MEDS: POLYVINYL ALCOHOL OPHT DROPS 15 ML BOTTLE EACHEYE SCH ×3 (05:16→21:11)
[2020-01-23] MEDS: ARGININE/GLUTAMINE/CALCIUM BMB 1 EACH POWD.PACK GT SCH ×2 (05:16→17:26)
[2020-01-23] MEDS: PROTEIN SUPPLEMENT (PROSTAT) 30 ML LIQUID GT SCH ×3 (05:16→21:11)
[2020-01-23 07:30] VITALS: BP 126/68
[2020-01-23] MEDS: POTASSIUM CHLORIDE 40 MEQ/30 ML LIQUID UDC GT SCH (08:52)
[2020-01-23] MEDS: NORMAL SALINE NASAL 45 ML BOTTLE NS SCH (08:52)
[2020-01-23] MEDS: Z GUARD REMEDY PASTE 57 GM TUBE TOP SCH ×2 (08:52→21:10)
[2020-01-23] MEDS: FAMOTIDINE 20 MG TABLET GT SCH ×2 (08:52→21:10)
[2020-01-23] MEDS: THERAHONEY GEL 1.5 OZ TUBE TOP SCH ×2 (08:52→21:10)
[2020-01-23] MEDS: DIGOXIN 125 MCG TABLET GT SCH (08:52)
[2020-01-23] MEDS: SODIUM HYPOCHLORITE 0.125% (QUARTER STRENGTH) 473 ML BOTTLE TP SCH ×2 (08:52→21:11)
[2020-01-23] MEDS: FUROSEMIDE 20 MG TABLET GT SCH (08:52)
[2020-01-23] MEDS: levETIRAcetam 500 MG/5 ML LIQUID UDC GT SCH ×2 (08:52→21:10)
[2020-01-23] MEDS: TRIAMCINOLONE ACET 0.1% CREAM 15 GM TUBE TP SCH ×2 (08:53→21:11)
[2020-01-23] MEDS: NYSTATIN CREAM 30 GM TUBE TP SCH ×2 (08:53→21:11)
[2020-01-23] MEDS: HYDROGEN PEROXIDE 3% 118 ML BOTTLE TP SCH ×2 (09:52→21:20)
--- NOTE | 2020-01-23 18:43 | NUR ---
SEEN BY DR. MCFARLANE AND WITH NNO.
[2020-01-23 20:00] VITALS: BP 107/58
[2020-01-23] MEDS: ACIDOPHILUS/BULGARICUS CHEW TAB GT SCH (21:08)
[2020-01-23] MEDS: ASCORBIC ACID 500 MG TABLET PO SCH (21:10)
--- NOTE | 2020-01-23 23:22 | NUR ---
Received pt on HT-50 ventilator with the following settings of AC-12, Vt-550, PEEP+5, FIO2-30%, trached with Shiley#6 DCT trach, which is in the place and secure. No distress noted. Airway care done, pt responded to physical stimuli. Resus. bag and back up trach at bedside. Vent and alarms checked and reset.
[2020-01-24] MEDS: ARGININE/GLUTAMINE/CALCIUM BMB 1 EACH POWD.PACK GT SCH ×2 (05:42→17:37)
[2020-01-24] MEDS: PROTEIN SUPPLEMENT (PROSTAT) 30 ML LIQUID GT SCH ×3 (05:42→21:05)
[2020-01-24] MEDS: POLYVINYL ALCOHOL OPHT DROPS 15 ML BOTTLE EACHEYE SCH ×3 (05:42→21:05)
[2020-01-24 07:46] VITALS: BP 129/64
[2020-01-24] MEDS: FAMOTIDINE 20 MG TABLET GT SCH ×2 (09:01→20:51)
[2020-01-24] MEDS: levETIRAcetam 500 MG/5 ML LIQUID UDC GT SCH ×2 (09:01→20:51)
[2020-01-24] MEDS: POTASSIUM CHLORIDE 40 MEQ/30 ML LIQUID UDC GT SCH (09:01)
[2020-01-24] MEDS: FUROSEMIDE 20 MG TABLET GT SCH (09:01)
[2020-01-24] MEDS: DIGOXIN 125 MCG TABLET GT SCH (09:01)
[2020-01-24] MEDS: TRIAMCINOLONE ACET 0.1% CREAM 15 GM TUBE TP SCH ×2 (09:02→20:51)
[2020-01-24] MEDS: SODIUM HYPOCHLORITE 0.125% (QUARTER STRENGTH) 473 ML BOTTLE TP SCH ×2 (09:02→20:51)
[2020-01-24] MEDS: NYSTATIN CREAM 30 GM TUBE TP SCH ×2 (09:02→20:51)
[2020-01-24] MEDS: THERAHONEY GEL 1.5 OZ TUBE TOP SCH ×2 (09:02→20:51)
[2020-01-24] MEDS: NORMAL SALINE NASAL 45 ML BOTTLE NS SCH (09:02)
[2020-01-24] MEDS: Z GUARD REMEDY PASTE 57 GM TUBE TOP SCH ×2 (09:02→20:51)
[2020-01-24] MEDS: ACETAMINOPHEN 650 MG/20 ML UDC- SA PATIENTS-PAIN ONLY GT PRN (09:05)
[2020-01-24] MEDS: HYDROGEN PEROXIDE 3% 118 ML BOTTLE TP SCH ×2 (09:07→20:29)
[2020-01-24] MEDS: GLUCERNA 1.2 1000ML LIQUID GT PRN (13:29)
[2020-01-24 20:00] VITALS: BP 131/66
[2020-01-24] MEDS: ASCORBIC ACID 500 MG TABLET PO SCH (20:51)
[2020-01-24] MEDS: ACIDOPHILUS/BULGARICUS CHEW TAB GT SCH (20:51)
[2020-01-25] MEDS: ARGININE/GLUTAMINE/CALCIUM BMB 1 EACH POWD.PACK GT SCH ×2 (05:22→18:02)
[2020-01-25] MEDS: PROTEIN SUPPLEMENT (PROSTAT) 30 ML LIQUID GT SCH ×3 (05:22→21:08)
[2020-01-25] MEDS: POLYVINYL ALCOHOL OPHT DROPS 15 ML BOTTLE EACHEYE SCH ×3 (05:22→21:08)
[2020-01-25 07:38] VITALS: BP 139/70
[2020-01-25] MEDS: HYDROGEN PEROXIDE 3% 118 ML BOTTLE TP SCH ×2 (08:15→21:50)
[2020-01-25] MEDS: DIGOXIN 125 MCG TABLET GT SCH (09:06)
[2020-01-25] MEDS: levETIRAcetam 500 MG/5 ML LIQUID UDC GT SCH ×2 (09:06→21:07)
[2020-01-25] MEDS: FUROSEMIDE 20 MG TABLET GT SCH (09:06)
[2020-01-25] MEDS: FAMOTIDINE 20 MG TABLET GT SCH ×2 (09:07→21:07)
[2020-01-25] MEDS: POTASSIUM CHLORIDE 40 MEQ/30 ML LIQUID UDC GT SCH (09:07)
[2020-01-25] MEDS: THERAHONEY GEL 1.5 OZ TUBE TOP SCH ×2 (09:08→21:07)
[2020-01-25] MEDS: NYSTATIN CREAM 30 GM TUBE TP SCH ×2 (09:08→21:08)
[2020-01-25] MEDS: TRIAMCINOLONE ACET 0.1% CREAM 15 GM TUBE TP SCH ×2 (09:08→21:08)
[2020-01-25] MEDS: Z GUARD REMEDY PASTE 57 GM TUBE TOP SCH ×2 (09:08→21:07)
[2020-01-25] MEDS: SODIUM HYPOCHLORITE 0.125% (QUARTER STRENGTH) 473 ML BOTTLE TP SCH ×2 (09:08→21:08)
[2020-01-25] MEDS: NORMAL SALINE NASAL 45 ML BOTTLE NS SCH (09:08)
[2020-01-25] MEDS: GLUCERNA 1.2 1000ML LIQUID GT PRN (13:27)
[2020-01-25] MEDS: ACIDOPHILUS/BULGARICUS CHEW TAB GT SCH (21:07)
[2020-01-25] MEDS: ASCORBIC ACID 500 MG TABLET PO SCH (21:07)
[2020-01-25 23:02] VITALS: BP 123/60
[2020-01-26] MEDS: PROTEIN SUPPLEMENT (PROSTAT) 30 ML LIQUID GT SCH ×3 (05:29→21:01)
[2020-01-26] MEDS: POLYVINYL ALCOHOL OPHT DROPS 15 ML BOTTLE EACHEYE SCH ×3 (05:29→21:01)
[2020-01-26] MEDS: ARGININE/GLUTAMINE/CALCIUM BMB 1 EACH POWD.PACK GT SCH ×2 (05:29→17:59)
[2020-01-26 07:30] VITALS: BP 122/79
[2020-01-26] MEDS: HYDROGEN PEROXIDE 3% 118 ML BOTTLE TP SCH ×2 (08:27→21:21)
[2020-01-26] MEDS: levETIRAcetam 500 MG/5 ML LIQUID UDC GT SCH ×2 (09:26→21:01)
[2020-01-26] MEDS: SODIUM HYPOCHLORITE 0.125% (QUARTER STRENGTH) 473 ML BOTTLE TP SCH ×2 (09:27→21:01)
[2020-01-26] MEDS: FAMOTIDINE 20 MG TABLET GT SCH ×2 (09:27→21:01)
[2020-01-26] MEDS: TRIAMCINOLONE ACET 0.1% CREAM 15 GM TUBE TP SCH ×2 (09:27→21:01)
[2020-01-26] MEDS: NORMAL SALINE NASAL 45 ML BOTTLE NS SCH (09:27)
[2020-01-26] MEDS: POTASSIUM CHLORIDE 40 MEQ/30 ML LIQUID UDC GT SCH (09:27)
[2020-01-26] MEDS: Z GUARD REMEDY PASTE 57 GM TUBE TOP SCH ×2 (09:27→21:01)
[2020-01-26] MEDS: DIGOXIN 125 MCG TABLET GT SCH (09:27)
[2020-01-26] MEDS: FUROSEMIDE 20 MG TABLET GT SCH (09:27)
[2020-01-26] MEDS: THERAHONEY GEL 1.5 OZ TUBE TOP SCH ×2 (09:27→21:01)
[2020-01-26] MEDS: NYSTATIN CREAM 30 GM TUBE TP SCH ×2 (09:28→21:01)
[2020-01-26] MEDS: ASCORBIC ACID 500 MG TABLET PO SCH (21:01)
[2020-01-26] MEDS: ACIDOPHILUS/BULGARICUS CHEW TAB GT SCH (21:01)
[2020-01-26 22:53] VITALS: BP 122/62
[2020-01-27] MEDS: PROTEIN SUPPLEMENT (PROSTAT) 30 ML LIQUID GT SCH ×3 (05:38→21:21)
[2020-01-27] MEDS: POLYVINYL ALCOHOL OPHT DROPS 15 ML BOTTLE EACHEYE SCH ×3 (05:38→21:21)
[2020-01-27] MEDS: ARGININE/GLUTAMINE/CALCIUM BMB 1 EACH POWD.PACK GT SCH ×2 (05:38→17:44)
[2020-01-27 07:29] VITALS: BP 126/65
[2020-01-27] MEDS: FAMOTIDINE 20 MG TABLET GT SCH ×2 (08:28→20:08)
[2020-01-27] MEDS: FUROSEMIDE 20 MG TABLET GT SCH (08:28)
[2020-01-27] MEDS: DIGOXIN 125 MCG TABLET GT SCH (08:28)
[2020-01-27] MEDS: levETIRAcetam 500 MG/5 ML LIQUID UDC GT SCH ×2 (08:28→20:08)
[2020-01-27] MEDS: THERAHONEY GEL 1.5 OZ TUBE TOP SCH ×2 (08:29→20:09)
[2020-01-27] MEDS: TRIAMCINOLONE ACET 0.1% CREAM 15 GM TUBE TP SCH ×2 (08:29→20:10)
[2020-01-27] MEDS: NORMAL SALINE NASAL 45 ML BOTTLE NS SCH (08:29)
[2020-01-27] MEDS: NYSTATIN CREAM 30 GM TUBE TP SCH ×2 (08:29→20:10)
[2020-01-27] MEDS: Z GUARD REMEDY PASTE 57 GM TUBE TOP SCH ×2 (08:29→20:09)
[2020-01-27] MEDS: SODIUM HYPOCHLORITE 0.125% (QUARTER STRENGTH) 473 ML BOTTLE TP SCH ×2 (08:29→20:10)
[2020-01-27] MEDS: POTASSIUM CHLORIDE 40 MEQ/30 ML LIQUID UDC GT SCH (08:29)
[2020-01-27] MEDS: HYDROGEN PEROXIDE 3% 118 ML BOTTLE TP SCH ×2 (10:00→21:32)
--- NOTE | 2020-01-27 16:00 | NUR ---
SEEN BY ROOPA Dixon AND WITH NNO.
[2020-01-27] MEDS: ASCORBIC ACID 500 MG TABLET PO SCH (20:08)
[2020-01-27] MEDS: ACIDOPHILUS/BULGARICUS CHEW TAB GT SCH (20:08)
[2020-01-27 20:43] VITALS: BP 135/68
[2020-01-27] MEDS: GLUCERNA 1.2 1000ML LIQUID GT PRN (21:21)
[2020-01-28] MEDS: ARGININE/GLUTAMINE/CALCIUM BMB 1 EACH POWD.PACK GT SCH ×2 (05:19→17:03)
[2020-01-28] MEDS: PROTEIN SUPPLEMENT (PROSTAT) 30 ML LIQUID GT SCH ×3 (05:19→22:18)
[2020-01-28] MEDS: POLYVINYL ALCOHOL OPHT DROPS 15 ML BOTTLE EACHEYE SCH ×3 (05:19→22:18)
[2020-01-28] MEDS: HYDROGEN PEROXIDE 3% 118 ML BOTTLE TP SCH ×2 (07:42→21:41)
[2020-01-28] MEDS: NORMAL SALINE NASAL 45 ML BOTTLE NS SCH (08:42)
[2020-01-28] MEDS: POTASSIUM CHLORIDE 40 MEQ/30 ML LIQUID UDC GT SCH (08:42)
[2020-01-28] MEDS: DIGOXIN 125 MCG TABLET GT SCH (08:42)
[2020-01-28] MEDS: FUROSEMIDE 20 MG TABLET GT SCH (08:42)
[2020-01-28] MEDS: FAMOTIDINE 20 MG TABLET GT SCH ×2 (08:42→20:23)
[2020-01-28] MEDS: levETIRAcetam 500 MG/5 ML LIQUID UDC GT SCH ×2 (08:42→20:21)
[2020-01-28] MEDS: SODIUM HYPOCHLORITE 0.125% (QUARTER STRENGTH) 473 ML BOTTLE TP SCH ×2 (08:43→20:24)
[2020-01-28] MEDS: THERAHONEY GEL 1.5 OZ TUBE TOP SCH ×2 (08:43→20:24)
[2020-01-28] MEDS: Z GUARD REMEDY PASTE 57 GM TUBE TOP SCH ×2 (08:43→20:24)
[2020-01-28] MEDS: NYSTATIN CREAM 30 GM TUBE TP SCH ×2 (08:43→20:24)
[2020-01-28] MEDS: TRIAMCINOLONE ACET 0.1% CREAM 15 GM TUBE TP SCH ×2 (08:43→20:24)
[2020-01-28 20:14] VITALS: BP 143/64
[2020-01-28] MEDS: ACIDOPHILUS/BULGARICUS CHEW TAB GT SCH (20:21)
[2020-01-28] MEDS: ASCORBIC ACID 500 MG TABLET PO SCH (20:23)
[2020-01-29] MEDS: GLUCERNA 1.2 1000ML LIQUID GT PRN (05:01)
[2020-01-29] MEDS: POLYVINYL ALCOHOL OPHT DROPS 15 ML BOTTLE EACHEYE SCH ×3 (05:25→21:29)
[2020-01-29] MEDS: PROTEIN SUPPLEMENT (PROSTAT) 30 ML LIQUID GT SCH ×3 (05:26→21:29)
[2020-01-29] MEDS: ARGININE/GLUTAMINE/CALCIUM BMB 1 EACH POWD.PACK GT SCH ×2 (05:26→17:05)
[2020-01-29 07:37] VITALS: BP 130/64
[2020-01-29] MEDS: HYDROGEN PEROXIDE 3% 118 ML BOTTLE TP SCH ×2 (08:04→21:47)
[2020-01-29] MEDS: levETIRAcetam 500 MG/5 ML LIQUID UDC GT SCH ×2 (08:56→21:28)
[2020-01-29] MEDS: DIGOXIN 125 MCG TABLET GT SCH (08:56)
[2020-01-29] MEDS: FAMOTIDINE 20 MG TABLET GT SCH ×2 (08:56→21:28)
[2020-01-29] MEDS: FUROSEMIDE 20 MG TABLET GT SCH (08:56)
[2020-01-29] MEDS: POTASSIUM CHLORIDE 40 MEQ/30 ML LIQUID UDC GT SCH (08:56)
[2020-01-29] MEDS: NORMAL SALINE NASAL 45 ML BOTTLE NS SCH (08:57)
[2020-01-29] MEDS: THERAHONEY GEL 1.5 OZ TUBE TOP SCH ×2 (08:57→21:29)
[2020-01-29] MEDS: Z GUARD REMEDY PASTE 57 GM TUBE TOP SCH ×2 (08:57→21:29)
[2020-01-29] MEDS: SODIUM HYPOCHLORITE 0.125% (QUARTER STRENGTH) 473 ML BOTTLE TP SCH ×2 (08:57→21:29)
[2020-01-29] MEDS: TRIAMCINOLONE ACET 0.1% CREAM 15 GM TUBE TP SCH ×2 (08:58→21:29)
[2020-01-29] MEDS: NYSTATIN CREAM 30 GM TUBE TP SCH ×2 (08:58→21:29)
[2020-01-29 20:23] VITALS: BP 125/64
[2020-01-29] MEDS: ASCORBIC ACID 500 MG TABLET PO SCH (21:28)
[2020-01-29] MEDS: ACIDOPHILUS/BULGARICUS CHEW TAB GT SCH (21:28)
[2020-01-30] MEDS: GLUCERNA 1.2 1000ML LIQUID GT PRN (05:11)
[2020-01-30] MEDS: POLYVINYL ALCOHOL OPHT DROPS 15 ML BOTTLE EACHEYE SCH ×3 (05:11→22:14)
[2020-01-30] MEDS: ARGININE/GLUTAMINE/CALCIUM BMB 1 EACH POWD.PACK GT SCH ×2 (05:11→17:56)
[2020-01-30] MEDS: PROTEIN SUPPLEMENT (PROSTAT) 30 ML LIQUID GT SCH ×3 (05:11→22:14)
[2020-01-30 07:35] VITALS: BP 124/74
[2020-01-30] MEDS: levETIRAcetam 500 MG/5 ML LIQUID UDC GT SCH ×2 (08:53→20:09)
[2020-01-30] MEDS: DIGOXIN 125 MCG TABLET GT SCH (08:55)
[2020-01-30] MEDS: FUROSEMIDE 20 MG TABLET GT SCH (08:55)
[2020-01-30] MEDS: POTASSIUM CHLORIDE 40 MEQ/30 ML LIQUID UDC GT SCH (08:56)
[2020-01-30] MEDS: FAMOTIDINE 20 MG TABLET GT SCH ×2 (08:56→20:09)
[2020-01-30] MEDS: NORMAL SALINE NASAL 45 ML BOTTLE NS SCH (08:59)
[2020-01-30] MEDS: Z GUARD REMEDY PASTE 57 GM TUBE TOP SCH ×2 (09:00→21:00)
[2020-01-30] MEDS: HYDROGEN PEROXIDE 3% 118 ML BOTTLE TP SCH ×2 (09:19→21:02)
[2020-01-30 20:00] VITALS: BP 124/63
--- NOTE | 2020-01-30 20:00 | NUR ---
Patient noted with open blood blister, cleansed and initiated in- house treatment, will handle very gently and will monitor for bleeding, kept patient clean and comfortable.
[2020-01-30] MEDS: ASCORBIC ACID 500 MG TABLET PO SCH (20:09)
[2020-01-30] MEDS: ACIDOPHILUS/BULGARICUS CHEW TAB GT SCH (20:09)
[2020-01-31] MEDS: GLUCERNA 1.2 1000ML LIQUID GT PRN (03:10)
--- NOTE | 2020-01-31 03:30 | NUR ---
Renewed treatment to Sacral wound over scarring X 30 days then re-eval.
[2020-01-31] MEDS: SODIUM HYPOCHLORITE 0.125% (QUARTER STRENGTH) 473 ML BOTTLE TP SCH ×3 (04:36→20:13)
[2020-01-31] MEDS: NYSTATIN CREAM 30 GM TUBE TOP SCH ×3 (04:36→20:13)
[2020-01-31] MEDS: TRIAMCINOLONE ACET 0.1% CREAM 15 GM TUBE TOP SCH ×3 (04:36→20:12)
[2020-01-31] MEDS: ARGININE/GLUTAMINE/CALCIUM BMB 1 EACH POWD.PACK GT SCH ×2 (05:28→17:06)
[2020-01-31] MEDS: POLYVINYL ALCOHOL OPHT DROPS 15 ML BOTTLE EACHEYE SCH ×3 (05:28→22:13)
[2020-01-31] MEDS: PROTEIN SUPPLEMENT (PROSTAT) 30 ML LIQUID GT SCH ×3 (05:28→22:13)
[2020-01-31 07:31] VITALS: BP 130/70
[2020-01-31] MEDS: DIGOXIN 125 MCG TABLET GT SCH (08:26)
[2020-01-31] MEDS: levETIRAcetam 500 MG/5 ML LIQUID UDC GT SCH ×2 (08:26→20:12)
[2020-01-31] MEDS: FUROSEMIDE 20 MG TABLET GT SCH (08:26)
[2020-01-31] MEDS: FAMOTIDINE 20 MG TABLET GT SCH ×2 (08:26→20:12)
[2020-01-31] MEDS: POTASSIUM CHLORIDE 40 MEQ/30 ML LIQUID UDC GT SCH (08:26)
[2020-01-31] MEDS: THERAHONEY GEL 1.5 OZ TUBE TOP SCH ×2 (08:27→20:13)
[2020-01-31] MEDS: NORMAL SALINE NASAL 45 ML BOTTLE NS SCH (08:27)
[2020-01-31] MEDS: Z GUARD REMEDY PASTE 57 GM TUBE TOP SCH ×2 (08:27→20:13)
[2020-01-31] MEDS: HYDROGEN PEROXIDE 3% 118 ML BOTTLE TP SCH ×2 (09:00→21:26)
[2020-01-31] MEDS: ACIDOPHILUS/BULGARICUS CHEW TAB GT SCH (20:12)
[2020-01-31] MEDS: ASCORBIC ACID 500 MG TABLET PO SCH (20:12)
[2020-01-31 20:29] VITALS: BP 137/67
[2020-02-01] MEDS: ARGININE/GLUTAMINE/CALCIUM BMB 1 EACH POWD.PACK GT SCH ×2 (05:27→18:21)
[2020-02-01] MEDS: POLYVINYL ALCOHOL OPHT DROPS 15 ML BOTTLE EACHEYE SCH ×3 (05:27→21:06)
[2020-02-01] MEDS: PROTEIN SUPPLEMENT (PROSTAT) 30 ML LIQUID GT SCH ×3 (05:27→21:06)
[2020-02-01 07:37] VITALS: BP 125/65
[2020-02-01] MEDS: levETIRAcetam 500 MG/5 ML LIQUID UDC GT SCH ×2 (08:45→20:11)
[2020-02-01] MEDS: DIGOXIN 125 MCG TABLET GT SCH (08:46)
[2020-02-01] MEDS: FAMOTIDINE 20 MG TABLET GT SCH ×2 (08:46→20:11)
[2020-02-01] MEDS: FUROSEMIDE 20 MG TABLET GT SCH (08:46)
[2020-02-01] MEDS: POTASSIUM CHLORIDE 40 MEQ/30 ML LIQUID UDC GT SCH (08:47)
[2020-02-01] MEDS: ACETAMINOPHEN 650 MG/20.3 ML LIQUID UDC GT PRN (08:48)
[2020-02-01] MEDS: TRIAMCINOLONE ACET 0.1% CREAM 15 GM TUBE TOP SCH ×2 (08:48→20:11)
[2020-02-01] MEDS: Z GUARD REMEDY PASTE 57 GM TUBE TOP SCH ×2 (08:48→20:11)
[2020-02-01] MEDS: GLUCERNA 1.2 1000ML LIQUID GT PRN (08:48)
[2020-02-01] MEDS: NORMAL SALINE NASAL 45 ML BOTTLE NS SCH (08:48)
[2020-02-01] MEDS: NYSTATIN CREAM 30 GM TUBE TOP SCH ×2 (08:48→20:11)
[2020-02-01] MEDS: SODIUM HYPOCHLORITE 0.125% (QUARTER STRENGTH) 473 ML BOTTLE TP SCH ×2 (08:48→20:11)
[2020-02-01] MEDS: THERAHONEY GEL 1.5 OZ TUBE TOP SCH ×2 (08:48→20:11)
[2020-02-01] MEDS: HYDROGEN PEROXIDE 3% 118 ML BOTTLE TP SCH ×2 (09:50→21:22)
[2020-02-01] MEDS: ACIDOPHILUS/BULGARICUS CHEW TAB GT SCH (20:11)
[2020-02-01] MEDS: ASCORBIC ACID 500 MG TABLET PO SCH (20:11)
[2020-02-01 20:37] VITALS: BP 124/66
--- NOTE | 2020-02-01 23:22 | NUR ---
Pt received on HT-50 ventilator with the following settings of AC-12, Vt-550, PEEP+5, FIO2-30%, trached with Shiley#6 DCT trach, which is in the place and secure. No s/s of respiratory distress noted. Airway care done, pt responded to physical stimuli. Resus. bag and back up trach at bedside. Vent and alarms checked and reset.
[2020-02-02] MEDS: POLYVINYL ALCOHOL OPHT DROPS 15 ML BOTTLE EACHEYE SCH ×3 (05:39→22:12)
[2020-02-02] MEDS: ARGININE/GLUTAMINE/CALCIUM BMB 1 EACH POWD.PACK GT SCH ×2 (05:39→17:21)
[2020-02-02] MEDS: PROTEIN SUPPLEMENT (PROSTAT) 30 ML LIQUID GT SCH ×3 (05:39→22:13)
[2020-02-02 07:59] VITALS: BP 130/66
[2020-02-02] MEDS: levETIRAcetam 500 MG/5 ML LIQUID UDC GT SCH ×2 (08:47→20:41)
[2020-02-02] MEDS: FAMOTIDINE 20 MG TABLET GT SCH ×2 (08:48→20:41)
[2020-02-02] MEDS: POTASSIUM CHLORIDE 40 MEQ/30 ML LIQUID UDC GT SCH (08:48)
[2020-02-02] MEDS: FUROSEMIDE 20 MG TABLET GT SCH (08:48)
[2020-02-02] MEDS: DIGOXIN 125 MCG TABLET GT SCH (08:48)
[2020-02-02] MEDS: SODIUM HYPOCHLORITE 0.125% (QUARTER STRENGTH) 473 ML BOTTLE TP SCH ×2 (08:49→20:42)
[2020-02-02] MEDS: THERAHONEY GEL 1.5 OZ TUBE TOP SCH ×2 (08:49→20:42)
[2020-02-02] MEDS: NYSTATIN CREAM 30 GM TUBE TOP SCH ×2 (08:49→20:41)
[2020-02-02] MEDS: NORMAL SALINE NASAL 45 ML BOTTLE NS SCH (08:49)
[2020-02-02] MEDS: Z GUARD REMEDY PASTE 57 GM TUBE TOP SCH ×2 (08:49→20:42)
[2020-02-02] MEDS: TRIAMCINOLONE ACET 0.1% CREAM 15 GM TUBE TOP SCH ×2 (08:49→20:41)
[2020-02-02] MEDS: GLUCERNA 1.2 1000ML LIQUID GT PRN (08:50)
[2020-02-02] MEDS: HYDROGEN PEROXIDE 3% 118 ML BOTTLE TP SCH ×2 (09:23→21:13)
[2020-02-02] MEDS: ACETAMINOPHEN 650 MG/20.3 ML LIQUID UDC GT PRN (09:47)
[2020-02-02 20:20] VITALS: BP 136/69
[2020-02-02] MEDS: ACIDOPHILUS/BULGARICUS CHEW TAB GT SCH (20:40)
[2020-02-02] MEDS: ASCORBIC ACID 500 MG TABLET PO SCH (20:41)
[2020-02-03] MEDS: POLYVINYL ALCOHOL OPHT DROPS 15 ML BOTTLE EACHEYE SCH ×3 (06:21→21:04)
[2020-02-03] MEDS: PROTEIN SUPPLEMENT (PROSTAT) 30 ML LIQUID GT SCH ×3 (06:21→21:04)
[2020-02-03] MEDS: ARGININE/GLUTAMINE/CALCIUM BMB 1 EACH POWD.PACK GT SCH ×2 (06:21→17:07)
[2020-02-03 07:48] VITALS: BP 119/71
[2020-02-03] MEDS: levETIRAcetam 500 MG/5 ML LIQUID UDC GT SCH ×2 (08:24→21:03)
[2020-02-03] MEDS: DIGOXIN 125 MCG TABLET GT SCH (08:24)
[2020-02-03] MEDS: SODIUM HYPOCHLORITE 0.125% (QUARTER STRENGTH) 473 ML BOTTLE TP SCH ×2 (08:25→21:04)
[2020-02-03] MEDS: FUROSEMIDE 20 MG TABLET GT SCH (08:25)
[2020-02-03] MEDS: NYSTATIN CREAM 30 GM TUBE TOP SCH ×2 (08:25→21:04)
[2020-02-03] MEDS: FAMOTIDINE 20 MG TABLET GT SCH ×2 (08:25→21:03)
[2020-02-03] MEDS: NORMAL SALINE NASAL 45 ML BOTTLE NS SCH (08:25)
[2020-02-03] MEDS: Z GUARD REMEDY PASTE 57 GM TUBE TOP SCH ×2 (08:25→21:04)
[2020-02-03] MEDS: THERAHONEY GEL 1.5 OZ TUBE TOP SCH ×2 (08:25→21:04)
[2020-02-03] MEDS: POTASSIUM CHLORIDE 40 MEQ/30 ML LIQUID UDC GT SCH (08:25)
[2020-02-03] MEDS: TRIAMCINOLONE ACET 0.1% CREAM 15 GM TUBE TOP SCH ×2 (08:25→21:04)
[2020-02-03] MEDS: HYDROGEN PEROXIDE 3% 118 ML BOTTLE TP SCH ×2 (09:26→21:37)
[2020-02-03] MEDS: ASCORBIC ACID 500 MG TABLET PO SCH (21:03)
[2020-02-03] MEDS: ACIDOPHILUS/BULGARICUS CHEW TAB GT SCH (21:03)
[2020-02-03 22:42] VITALS: BP 122/70
[2020-02-04] MEDS: POLYVINYL ALCOHOL OPHT DROPS 15 ML BOTTLE EACHEYE SCH ×3 (06:39→21:57)
[2020-02-04] MEDS: PROTEIN SUPPLEMENT (PROSTAT) 30 ML LIQUID GT SCH ×3 (06:39→21:57)
[2020-02-04] MEDS: ARGININE/GLUTAMINE/CALCIUM BMB 1 EACH POWD.PACK GT SCH ×2 (06:39→17:49)
[2020-02-04 07:45] VITALS: BP 141/73
[2020-02-04] MEDS: DIGOXIN 125 MCG TABLET GT SCH (08:28)
[2020-02-04] MEDS: levETIRAcetam 500 MG/5 ML LIQUID UDC GT SCH ×2 (08:28→21:56)
[2020-02-04] MEDS: FAMOTIDINE 20 MG TABLET GT SCH ×2 (08:28→21:56)
[2020-02-04] MEDS: FUROSEMIDE 20 MG TABLET GT SCH (08:28)
[2020-02-04] MEDS: POTASSIUM CHLORIDE 40 MEQ/30 ML LIQUID UDC GT SCH (08:28)
[2020-02-04] MEDS: Z GUARD REMEDY PASTE 57 GM TUBE TOP SCH ×2 (08:29→21:56)
[2020-02-04] MEDS: NORMAL SALINE NASAL 45 ML BOTTLE NS SCH (08:29)
[2020-02-04] MEDS: NYSTATIN CREAM 30 GM TUBE TOP SCH ×2 (08:29→21:56)
[2020-02-04] MEDS: SODIUM HYPOCHLORITE 0.125% (QUARTER STRENGTH) 473 ML BOTTLE TP SCH ×2 (08:29→21:57)
[2020-02-04] MEDS: TRIAMCINOLONE ACET 0.1% CREAM 15 GM TUBE TOP SCH ×2 (08:29→21:56)
[2020-02-04] MEDS: THERAHONEY GEL 1.5 OZ TUBE TOP SCH ×2 (08:29→21:57)
[2020-02-04] MEDS: HYDROGEN PEROXIDE 3% 118 ML BOTTLE TP SCH ×2 (08:45→21:00)
[2020-02-04] MEDS: GLUCERNA 1.2 1000ML LIQUID GT PRN (14:43)
--- NOTE | 2020-02-04 15:44 | NUR ---
INTERDISCIPLINARY PLAN OF CARE CONFERENCE was held today. Patient's daughter was not available to participate in the meeting. Dr. Murguia and the Interdisciplinary team reviewed the current plan of care in detail. RN reported on the patient's medical condition. No major changes in condition were reported by RN or by the other disciplines. See RN IDT conference notes. See also all other disciplines IDT notes and physician's progress notes for additional details.
[2020-02-04 20:02] VITALS: BP 128/69
[2020-02-04] MEDS: ASCORBIC ACID 500 MG TABLET PO SCH (21:56)
[2020-02-04] MEDS: ACIDOPHILUS/BULGARICUS CHEW TAB GT SCH (21:56)
[2020-02-05] MEDS: ARGININE/GLUTAMINE/CALCIUM BMB 1 EACH POWD.PACK GT SCH ×2 (05:50→17:38)
[2020-02-05] MEDS: PROTEIN SUPPLEMENT (PROSTAT) 30 ML LIQUID GT SCH ×3 (05:50→22:27)
[2020-02-05] MEDS: POLYVINYL ALCOHOL OPHT DROPS 15 ML BOTTLE EACHEYE SCH ×3 (05:50→22:27)
[2020-02-05 07:45] VITALS: BP 132/73
[2020-02-05] MEDS: POTASSIUM CHLORIDE 40 MEQ/30 ML LIQUID UDC GT SCH (08:42)
[2020-02-05] MEDS: NYSTATIN CREAM 30 GM TUBE TOP SCH ×2 (08:42→21:00)
[2020-02-05] MEDS: TRIAMCINOLONE ACET 0.1% CREAM 15 GM TUBE TOP SCH ×2 (08:42→21:00)
[2020-02-05] MEDS: FUROSEMIDE 20 MG TABLET GT SCH (08:42)
[2020-02-05] MEDS: NORMAL SALINE NASAL 45 ML BOTTLE NS SCH (08:42)
[2020-02-05] MEDS: levETIRAcetam 500 MG/5 ML LIQUID UDC GT SCH ×2 (08:42→21:00)
[2020-02-05] MEDS: FAMOTIDINE 20 MG TABLET GT SCH ×2 (08:42→21:00)
[2020-02-05] MEDS: DIGOXIN 125 MCG TABLET GT SCH (08:42)
[2020-02-05] MEDS: SODIUM HYPOCHLORITE 0.125% (QUARTER STRENGTH) 473 ML BOTTLE TP SCH ×2 (08:43→21:00)
[2020-02-05] MEDS: THERAHONEY GEL 1.5 OZ TUBE TOP SCH ×2 (08:43→21:00)
[2020-02-05] MEDS: Z GUARD REMEDY PASTE 57 GM TUBE TOP SCH ×2 (08:43→21:00)
[2020-02-05] MEDS: HYDROGEN PEROXIDE 3% 118 ML BOTTLE TP SCH ×2 (09:14→21:30)
[2020-02-05 20:00] VITALS: BP 135/62
[2020-02-05] MEDS: ACIDOPHILUS/BULGARICUS CHEW TAB GT SCH (21:00)
[2020-02-05] MEDS: ASCORBIC ACID 500 MG TABLET PO SCH (21:00)
[2020-02-06] MEDS: PROTEIN SUPPLEMENT (PROSTAT) 30 ML LIQUID GT SCH ×3 (06:00→21:19)
[2020-02-06] MEDS: POLYVINYL ALCOHOL OPHT DROPS 15 ML BOTTLE EACHEYE SCH ×3 (06:00→21:19)
[2020-02-06] MEDS: ARGININE/GLUTAMINE/CALCIUM BMB 1 EACH POWD.PACK GT SCH ×2 (06:00→17:51)
[2020-02-06] MEDS: HYDROGEN PEROXIDE 3% 118 ML BOTTLE TP SCH ×2 (07:57→21:26)
[2020-02-06] MEDS: levETIRAcetam 500 MG/5 ML LIQUID UDC GT SCH ×2 (09:04→21:18)
[2020-02-06] MEDS: FUROSEMIDE 20 MG TABLET GT SCH (09:04)
[2020-02-06] MEDS: THERAHONEY GEL 1.5 OZ TUBE TOP SCH ×2 (09:04→21:18)
[2020-02-06] MEDS: FAMOTIDINE 20 MG TABLET GT SCH ×2 (09:04→21:18)
[2020-02-06] MEDS: NYSTATIN CREAM 30 GM TUBE TOP SCH ×2 (09:04→21:18)
[2020-02-06] MEDS: DIGOXIN 125 MCG TABLET GT SCH (09:04)
[2020-02-06] MEDS: Z GUARD REMEDY PASTE 57 GM TUBE TOP SCH ×2 (09:04→21:18)
[2020-02-06] MEDS: TRIAMCINOLONE ACET 0.1% CREAM 15 GM TUBE TOP SCH ×2 (09:04→21:18)
[2020-02-06] MEDS: SODIUM HYPOCHLORITE 0.125% (QUARTER STRENGTH) 473 ML BOTTLE TP SCH ×2 (09:04→21:18)
[2020-02-06] MEDS: NORMAL SALINE NASAL 45 ML BOTTLE NS SCH (09:04)
[2020-02-06] MEDS: POTASSIUM CHLORIDE 40 MEQ/30 ML LIQUID UDC GT SCH (09:04)
[2020-02-06 15:54] VITALS: BP 132/73
[2020-02-06 20:00] VITALS: BP 144/71
[2020-02-06] MEDS: GLUCERNA 1.2 1000ML LIQUID GT PRN (20:00)
[2020-02-06] MEDS: ACIDOPHILUS/BULGARICUS CHEW TAB GT SCH (21:18)
[2020-02-06] MEDS: ASCORBIC ACID 500 MG TABLET PO SCH (21:18)
[2020-02-07] MEDS: PROTEIN SUPPLEMENT (PROSTAT) 30 ML LIQUID GT SCH ×3 (06:15→21:03)
[2020-02-07] MEDS: ARGININE/GLUTAMINE/CALCIUM BMB 1 EACH POWD.PACK GT SCH ×2 (06:15→17:18)
[2020-02-07] MEDS: POLYVINYL ALCOHOL OPHT DROPS 15 ML BOTTLE EACHEYE SCH ×3 (06:15→21:03)
[2020-02-07 07:35] VITALS: BP 138/71
[2020-02-07] MEDS: levETIRAcetam 500 MG/5 ML LIQUID UDC GT SCH ×2 (08:24→20:55)
[2020-02-07] MEDS: DIGOXIN 125 MCG TABLET GT SCH (08:26)
[2020-02-07] MEDS: TRIAMCINOLONE ACET 0.1% CREAM 15 GM TUBE TOP SCH ×2 (08:27→20:55)
[2020-02-07] MEDS: FAMOTIDINE 20 MG TABLET GT SCH ×2 (08:27→20:55)
[2020-02-07] MEDS: NYSTATIN CREAM 30 GM TUBE TOP SCH ×2 (08:27→20:55)
[2020-02-07] MEDS: FUROSEMIDE 20 MG TABLET GT SCH (08:27)
[2020-02-07] MEDS: POTASSIUM CHLORIDE 40 MEQ/30 ML LIQUID UDC GT SCH (08:27)
[2020-02-07] MEDS: Z GUARD REMEDY PASTE 57 GM TUBE TOP SCH ×2 (08:27→20:55)
[2020-02-07] MEDS: NORMAL SALINE NASAL 45 ML BOTTLE NS SCH (08:27)
[2020-02-07] MEDS: SODIUM HYPOCHLORITE 0.125% (QUARTER STRENGTH) 473 ML BOTTLE TP SCH ×2 (08:28→20:55)
[2020-02-07] MEDS: THERAHONEY GEL 1.5 OZ TUBE TOP SCH ×2 (08:28→20:55)
[2020-02-07] MEDS: HYDROGEN PEROXIDE 3% 118 ML BOTTLE TP SCH ×2 (09:59→19:19)
[2020-02-07 20:00] VITALS: BP 129/69
[2020-02-07] MEDS: ACIDOPHILUS/BULGARICUS CHEW TAB GT SCH (20:55)
[2020-02-07] MEDS: ASCORBIC ACID 500 MG TABLET PO SCH (20:55)
[2020-02-07] MEDS: GLUCERNA 1.2 1000ML LIQUID GT PRN (22:13)
[2020-02-08] MEDS: POLYVINYL ALCOHOL OPHT DROPS 15 ML BOTTLE EACHEYE SCH ×3 (05:24→21:08)
[2020-02-08] MEDS: PROTEIN SUPPLEMENT (PROSTAT) 30 ML LIQUID GT SCH ×3 (05:29→21:08)
[2020-02-08] MEDS: ARGININE/GLUTAMINE/CALCIUM BMB 1 EACH POWD.PACK GT SCH ×2 (05:29→17:22)
[2020-02-08 07:30] VITALS: BP 141/43
[2020-02-08] MEDS: HYDROGEN PEROXIDE 3% 118 ML BOTTLE TP SCH ×2 (07:35→21:31)
[2020-02-08] MEDS: levETIRAcetam 500 MG/5 ML LIQUID UDC GT SCH ×2 (08:33→21:07)
[2020-02-08] MEDS: FUROSEMIDE 20 MG TABLET GT SCH (08:35)
[2020-02-08] MEDS: FAMOTIDINE 20 MG TABLET GT SCH ×2 (08:35→21:07)
[2020-02-08] MEDS: DIGOXIN 125 MCG TABLET GT SCH (08:35)
[2020-02-08] MEDS: POTASSIUM CHLORIDE 40 MEQ/30 ML LIQUID UDC GT SCH (08:36)
[2020-02-08] MEDS: NORMAL SALINE NASAL 45 ML BOTTLE NS SCH (08:36)
[2020-02-08] MEDS: SODIUM HYPOCHLORITE 0.125% (QUARTER STRENGTH) 473 ML BOTTLE TP SCH ×2 (08:37→21:08)
[2020-02-08] MEDS: Z GUARD REMEDY PASTE 57 GM TUBE TOP SCH ×2 (08:37→21:08)
[2020-02-08] MEDS: TRIAMCINOLONE ACET 0.1% CREAM 15 GM TUBE TOP SCH ×2 (08:37→21:07)
[2020-02-08] MEDS: NYSTATIN CREAM 30 GM TUBE TOP SCH ×2 (08:37→21:07)
[2020-02-08] MEDS: THERAHONEY GEL 1.5 OZ TUBE TOP SCH ×2 (08:37→21:08)
[2020-02-08] MEDS: ASCORBIC ACID 500 MG TABLET PO SCH (21:07)
[2020-02-08] MEDS: ACIDOPHILUS/BULGARICUS CHEW TAB GT SCH (21:07)
[2020-02-08 22:34] VITALS: BP 128/58
[2020-02-09] MEDS: GLUCERNA 1.2 1000ML LIQUID GT PRN (00:42)
[2020-02-09] MEDS: PROTEIN SUPPLEMENT (PROSTAT) 30 ML LIQUID GT SCH ×3 (05:37→22:01)
[2020-02-09] MEDS: ARGININE/GLUTAMINE/CALCIUM BMB 1 EACH POWD.PACK GT SCH ×2 (05:37→17:39)
[2020-02-09] MEDS: POLYVINYL ALCOHOL OPHT DROPS 15 ML BOTTLE EACHEYE SCH ×3 (05:37→22:01)
[2020-02-09 07:27] VITALS: BP 123/79
[2020-02-09] MEDS: HYDROGEN PEROXIDE 3% 118 ML BOTTLE TP SCH ×2 (07:33→21:24)
[2020-02-09] MEDS: levETIRAcetam 500 MG/5 ML LIQUID UDC GT SCH ×2 (08:03→21:00)
[2020-02-09] MEDS: FUROSEMIDE 20 MG TABLET GT SCH (08:03)
[2020-02-09] MEDS: DIGOXIN 125 MCG TABLET GT SCH (08:03)
[2020-02-09] MEDS: FAMOTIDINE 20 MG TABLET GT SCH ×2 (08:03→21:00)
[2020-02-09] MEDS: POTASSIUM CHLORIDE 40 MEQ/30 ML LIQUID UDC GT SCH (08:03)
[2020-02-09] MEDS: Z GUARD REMEDY PASTE 57 GM TUBE TOP SCH ×2 (08:04→21:00)
[2020-02-09] MEDS: NORMAL SALINE NASAL 45 ML BOTTLE NS SCH (08:04)
[2020-02-09] MEDS: NYSTATIN CREAM 30 GM TUBE TOP SCH ×2 (08:04→21:00)
[2020-02-09] MEDS: TRIAMCINOLONE ACET 0.1% CREAM 15 GM TUBE TOP SCH ×2 (08:04→21:00)
[2020-02-09] MEDS: SODIUM HYPOCHLORITE 0.125% (QUARTER STRENGTH) 473 ML BOTTLE TP SCH ×2 (08:04→21:00)
[2020-02-09] MEDS: THERAHONEY GEL 1.5 OZ TUBE TOP SCH ×2 (08:04→21:00)
--- NOTE | 2020-02-09 16:21 | NUR ---
NEW ORDER WAS CARRIED OUT FROM DR. MART FOR COVID 19 TEST AND PT'S RESP. CONSTITUTION PARTY VOICE MAIL FULL.
[2020-02-09 20:16] VITALS: BP 128/50
[2020-02-09] MEDS: ACIDOPHILUS/BULGARICUS CHEW TAB GT SCH (21:00)
[2020-02-09] MEDS: ASCORBIC ACID 500 MG TABLET PO SCH (21:00)
[2020-02-10] MEDS: POLYVINYL ALCOHOL OPHT DROPS 15 ML BOTTLE EACHEYE SCH ×3 (05:59→21:55)
[2020-02-10] MEDS: ARGININE/GLUTAMINE/CALCIUM BMB 1 EACH POWD.PACK GT SCH ×2 (05:59→17:48)
[2020-02-10] MEDS: PROTEIN SUPPLEMENT (PROSTAT) 30 ML LIQUID GT SCH ×3 (06:00→21:55)
[2020-02-10] MEDS: GLUCERNA 1.2 1000ML LIQUID GT PRN (07:03)
[2020-02-10 07:55] VITALS: BP 146/72
[2020-02-10] MEDS: levETIRAcetam 500 MG/5 ML LIQUID UDC GT SCH ×2 (08:26→21:55)
[2020-02-10] MEDS: DIGOXIN 125 MCG TABLET GT SCH (08:27)
[2020-02-10] MEDS: FUROSEMIDE 20 MG TABLET GT SCH (08:28)
[2020-02-10] MEDS: POTASSIUM CHLORIDE 40 MEQ/30 ML LIQUID UDC GT SCH (08:28)
[2020-02-10] MEDS: FAMOTIDINE 20 MG TABLET GT SCH ×2 (08:28→21:55)
[2020-02-10] MEDS: TRIAMCINOLONE ACET 0.1% CREAM 15 GM TUBE TOP SCH ×2 (08:29→21:55)
[2020-02-10] MEDS: NYSTATIN CREAM 30 GM TUBE TOP SCH ×2 (08:29→21:55)
[2020-02-10] MEDS: NORMAL SALINE NASAL 45 ML BOTTLE NS SCH (08:29)
[2020-02-10] MEDS: THERAHONEY GEL 1.5 OZ TUBE TOP SCH ×2 (08:30→21:55)
[2020-02-10] MEDS: Z GUARD REMEDY PASTE 57 GM TUBE TOP SCH ×2 (08:30→21:55)
[2020-02-10] MEDS: SODIUM HYPOCHLORITE 0.125% (QUARTER STRENGTH) 473 ML BOTTLE TP SCH ×2 (08:31→21:55)
[2020-02-10] MEDS: ACETAMINOPHEN 650 MG/20.3 ML LIQUID UDC GT PRN (08:32)
--- NOTE | 2020-02-10 13:44 | NUR ---
PT'S DTR HARLEY AWARE OF NEGATIVE COVID 19 RESULT FROM YESTERDAY.
[2020-02-10 20:17] VITALS: BP 122/56
[2020-02-10] MEDS: HYDROGEN PEROXIDE 3% 118 ML BOTTLE TP SCH (21:07)
[2020-02-10] MEDS: ACIDOPHILUS/BULGARICUS CHEW TAB GT SCH (21:54)
[2020-02-10] MEDS: ASCORBIC ACID 500 MG TABLET PO SCH (21:55)
[2020-02-11] MEDS: POLYVINYL ALCOHOL OPHT DROPS 15 ML BOTTLE EACHEYE SCH ×3 (05:33→22:03)
[2020-02-11] MEDS: PROTEIN SUPPLEMENT (PROSTAT) 30 ML LIQUID GT SCH ×3 (05:33→22:03)
[2020-02-11] MEDS: ARGININE/GLUTAMINE/CALCIUM BMB 1 EACH POWD.PACK GT SCH ×2 (05:33→17:21)
[2020-02-11 07:39] VITALS: BP 115/55
[2020-02-11] MEDS: levETIRAcetam 500 MG/5 ML LIQUID UDC GT SCH ×2 (08:34→20:45)
[2020-02-11] MEDS: DIGOXIN 125 MCG TABLET GT SCH (08:34)
[2020-02-11] MEDS: FUROSEMIDE 20 MG TABLET GT SCH (08:34)
[2020-02-11] MEDS: FAMOTIDINE 20 MG TABLET GT SCH ×2 (08:34→20:45)
[2020-02-11] MEDS: POTASSIUM CHLORIDE 40 MEQ/30 ML LIQUID UDC GT SCH (08:36)
[2020-02-11] MEDS: Z GUARD REMEDY PASTE 57 GM TUBE TOP SCH ×2 (08:37→20:46)
[2020-02-11] MEDS: NYSTATIN CREAM 30 GM TUBE TOP SCH ×2 (08:37→20:45)
[2020-02-11] MEDS: NORMAL SALINE NASAL 45 ML BOTTLE NS SCH (08:37)
[2020-02-11] MEDS: TRIAMCINOLONE ACET 0.1% CREAM 15 GM TUBE TOP SCH ×2 (08:37→20:45)
[2020-02-11] MEDS: THERAHONEY GEL 1.5 OZ TUBE TOP SCH ×2 (08:37→20:46)
[2020-02-11] MEDS: SODIUM HYPOCHLORITE 0.125% (QUARTER STRENGTH) 473 ML BOTTLE TP SCH ×2 (08:37→20:46)
[2020-02-11] MEDS: HYDROGEN PEROXIDE 3% 118 ML BOTTLE TP SCH ×2 (09:25→19:16)
[2020-02-11] MEDS: GLUCERNA 1.2 1000ML LIQUID GT PRN (13:37)
[2020-02-11 20:27] VITALS: BP 139/77
[2020-02-11] MEDS: ACIDOPHILUS/BULGARICUS CHEW TAB GT SCH (20:45)
[2020-02-11] MEDS: ASCORBIC ACID 500 MG TABLET PO SCH (20:45)
[2020-02-12] MEDS: PROTEIN SUPPLEMENT (PROSTAT) 30 ML LIQUID GT SCH ×3 (05:40→21:19)
[2020-02-12] MEDS: ARGININE/GLUTAMINE/CALCIUM BMB 1 EACH POWD.PACK GT SCH ×2 (05:40→17:24)
[2020-02-12] MEDS: POLYVINYL ALCOHOL OPHT DROPS 15 ML BOTTLE EACHEYE SCH ×3 (05:40→21:19)
[2020-02-12 07:33] VITALS: BP 120/76
[2020-02-12] MEDS: FAMOTIDINE 20 MG TABLET GT SCH ×2 (08:10→21:16)
[2020-02-12] MEDS: levETIRAcetam 500 MG/5 ML LIQUID UDC GT SCH ×2 (08:10→21:16)
[2020-02-12] MEDS: THERAHONEY GEL 1.5 OZ TUBE TOP SCH ×2 (08:10→21:19)
[2020-02-12] MEDS: Z GUARD REMEDY PASTE 57 GM TUBE TOP SCH ×2 (08:10→21:19)
[2020-02-12] MEDS: NYSTATIN CREAM 30 GM TUBE TOP SCH ×2 (08:10→21:19)
[2020-02-12] MEDS: DIGOXIN 125 MCG TABLET GT SCH (08:10)
[2020-02-12] MEDS: POTASSIUM CHLORIDE 40 MEQ/30 ML LIQUID UDC GT SCH (08:10)
[2020-02-12] MEDS: SODIUM HYPOCHLORITE 0.125% (QUARTER STRENGTH) 473 ML BOTTLE TP SCH ×2 (08:10→21:19)
[2020-02-12] MEDS: FUROSEMIDE 20 MG TABLET GT SCH (08:10)
[2020-02-12] MEDS: TRIAMCINOLONE ACET 0.1% CREAM 15 GM TUBE TOP SCH ×2 (08:10→21:18)
[2020-02-12] MEDS: NORMAL SALINE NASAL 45 ML BOTTLE NS SCH (08:10)
[2020-02-12] MEDS: HYDROGEN PEROXIDE 3% 118 ML BOTTLE TP SCH ×2 (09:22→21:30)
[2020-02-12] MEDS: GLUCERNA 1.2 1000ML LIQUID GT PRN (16:13)
--- NOTE | 2020-02-12 17:00 | NUR ---
Seen and examined By Rosi Miller,no new orders.
[2020-02-12 20:25] VITALS: BP 130/67
[2020-02-12] MEDS: ACIDOPHILUS/BULGARICUS CHEW TAB GT SCH (21:16)
[2020-02-12] MEDS: ASCORBIC ACID 500 MG TABLET PO SCH (21:18)
[2020-02-13] MEDS: ARGININE/GLUTAMINE/CALCIUM BMB 1 EACH POWD.PACK GT SCH ×2 (05:27→17:34)
[2020-02-13] MEDS: PROTEIN SUPPLEMENT (PROSTAT) 30 ML LIQUID GT SCH ×3 (05:27→21:01)
[2020-02-13] MEDS: POLYVINYL ALCOHOL OPHT DROPS 15 ML BOTTLE EACHEYE SCH ×3 (05:27→21:00)
[2020-02-13 05:47] LABS: BASOPHILS % (AUTO) 0.6 % (0.0-2.0); EOSINOPHILS # (AUTO) 0.2 K/uL (0.0-0.7); EOSINOPHILS % (AUTO) 3.7 % (0.0-7.0); HEMATOCRIT 36.6 % (31.2-41.9); LYMPHOCYTES # (AUTO) 1.3 K/uL (20.0-40.0); LYMPHOCYTES % (AUTO) 27.7 % (20.5-51.5); MEAN CORPUSCULAR HEMOGLOBIN 30.7 uug (24.7-32.8); MEAN CORPUSCULAR HGB CONC 33 g/dL (32.3-35.6); MEAN CORPUSCULAR VOLUME 93.5 fL (75.5-95.3); MONOCYTES # (AUTO) 0.5 K/uL (2.0-10.0); MONOCYTES % (AUTO) 10.2 % (0.0-11.0); NEUTROPHILS # (AUTO) 2.6 K/uL (1.8-8.9); NEUTROPHILS % (AUTO) 57.8 % (38.5-71.5); PLATELET COUNT (AUTO) 95 K/uL (179-408); RED BLOOD CELL COUNT(AUTO) 3.91 MIL/uL (3.63-4.92); WHITE BLOOD COUNT (AUTO) 4.5 K/uL (3.8-11.8)
[2020-02-13 06:01] LABS: ALANINE AMINOTRANSFERASE 22 U/L (14-59); ALKALINE PHOSPHATASE 180 U/L (50-136); ASPARTATE AMINOTRANSFERASE 21 U/L (15-37); BILIRUBIN,TOTAL 0.3 mg/dL (0.2-1.0); CARBON DIOXIDE 36 mmol/L (21-32); CHLORIDE 106 mmol/L (98-107); CREATININE 0.5 mg/dL (0.6-1.3); GLUCOSE 110 mg/dL (74-106); MAGNESIUM 2.5 mg/dL (1.8-2.4); PHOSPHOROUS 3.3 mg/dL (2.5-4.9); POTASSIUM 3.7 mmol/L (3.5-5.1); TOTAL PROTEIN, SERUM 7.7 g/dL (6.4-8.2); UREA NITROGEN, BLOOD 31 mg/dL (7-18)
[2020-02-13 07:33] VITALS: BP 130/74
[2020-02-13] MEDS: HYDROGEN PEROXIDE 3% 118 ML BOTTLE TP SCH ×2 (07:37→21:30)
[2020-02-13] MEDS: DIGOXIN 125 MCG TABLET GT SCH (08:27)
[2020-02-13] MEDS: FUROSEMIDE 20 MG TABLET GT SCH (08:27)
[2020-02-13] MEDS: FAMOTIDINE 20 MG TABLET GT SCH ×2 (08:27→21:00)
[2020-02-13] MEDS: levETIRAcetam 500 MG/5 ML LIQUID UDC GT SCH ×2 (08:27→21:00)
[2020-02-13] MEDS: NYSTATIN CREAM 30 GM TUBE TOP SCH ×2 (08:28→21:00)
[2020-02-13] MEDS: TRIAMCINOLONE ACET 0.1% CREAM 15 GM TUBE TOP SCH ×2 (08:28→21:00)
[2020-02-13] MEDS: POTASSIUM CHLORIDE 40 MEQ/30 ML LIQUID UDC GT SCH (08:28)
[2020-02-13] MEDS: NORMAL SALINE NASAL 45 ML BOTTLE NS SCH (08:28)
[2020-02-13] MEDS: Z GUARD REMEDY PASTE 57 GM TUBE TOP SCH ×2 (08:28→21:00)
[2020-02-13] MEDS: THERAHONEY GEL 1.5 OZ TUBE TOP SCH ×2 (08:28→21:00)
[2020-02-13] MEDS: SODIUM HYPOCHLORITE 0.125% (QUARTER STRENGTH) 473 ML BOTTLE TP SCH ×2 (08:28→21:00)
[2020-02-13] MEDS: GLUCERNA 1.2 1000ML LIQUID GT PRN (19:12)
[2020-02-13 20:00] VITALS: BP 124/74
[2020-02-13] MEDS: ACIDOPHILUS/BULGARICUS CHEW TAB GT SCH (21:00)
[2020-02-13] MEDS: ASCORBIC ACID 500 MG TABLET PO SCH (21:00)
[2020-02-14] MEDS: POLYVINYL ALCOHOL OPHT DROPS 15 ML BOTTLE EACHEYE SCH ×3 (05:54→21:06)
[2020-02-14] MEDS: PROTEIN SUPPLEMENT (PROSTAT) 30 ML LIQUID GT SCH ×3 (05:54→21:07)
[2020-02-14] MEDS: ARGININE/GLUTAMINE/CALCIUM BMB 1 EACH POWD.PACK GT SCH ×2 (05:54→17:22)
[2020-02-14 07:36] VITALS: BP 114/67
[2020-02-14] MEDS: HYDROGEN PEROXIDE 3% 118 ML BOTTLE TP SCH ×2 (08:37→19:25)
[2020-02-14] MEDS: levETIRAcetam 500 MG/5 ML LIQUID UDC GT SCH ×2 (08:52→21:06)
[2020-02-14] MEDS: POTASSIUM CHLORIDE 40 MEQ/30 ML LIQUID UDC GT SCH (08:54)
[2020-02-14] MEDS: FAMOTIDINE 20 MG TABLET GT SCH ×2 (08:54→21:06)
[2020-02-14] MEDS: FUROSEMIDE 20 MG TABLET GT SCH (08:54)
[2020-02-14] MEDS: DIGOXIN 125 MCG TABLET GT SCH (08:54)
[2020-02-14] MEDS: SODIUM HYPOCHLORITE 0.125% (QUARTER STRENGTH) 473 ML BOTTLE TP SCH ×2 (08:55→21:06)
[2020-02-14] MEDS: NYSTATIN CREAM 30 GM TUBE TOP SCH ×2 (08:55→21:06)
[2020-02-14] MEDS: Z GUARD REMEDY PASTE 57 GM TUBE TOP SCH ×2 (08:55→21:06)
[2020-02-14] MEDS: TRIAMCINOLONE ACET 0.1% CREAM 15 GM TUBE TOP SCH ×2 (08:55→21:06)
[2020-02-14] MEDS: NORMAL SALINE NASAL 45 ML BOTTLE NS SCH (08:55)
[2020-02-14] MEDS: THERAHONEY GEL 1.5 OZ TUBE TOP SCH ×2 (08:55→21:06)
[2020-02-14] MEDS: ACETAMINOPHEN 650 MG/20.3 ML LIQUID UDC GT PRN (08:56)
[2020-02-14] MEDS: GLUCERNA 1.2 1000ML LIQUID GT PRN (17:22)
[2020-02-14 20:00] VITALS: BP 129/55
[2020-02-14] MEDS: ACIDOPHILUS/BULGARICUS CHEW TAB GT SCH (21:06)
[2020-02-14] MEDS: ASCORBIC ACID 500 MG TABLET PO SCH (21:06)
[2020-02-15] MEDS: POLYVINYL ALCOHOL OPHT DROPS 15 ML BOTTLE EACHEYE SCH ×3 (05:13→21:06)
[2020-02-15] MEDS: ARGININE/GLUTAMINE/CALCIUM BMB 1 EACH POWD.PACK GT SCH ×2 (05:13→17:41)
[2020-02-15] MEDS: PROTEIN SUPPLEMENT (PROSTAT) 30 ML LIQUID GT SCH ×3 (05:13→21:06)
[2020-02-15] MEDS: levETIRAcetam 500 MG/5 ML LIQUID UDC GT SCH ×2 (08:38→20:49)
[2020-02-15] MEDS: DIGOXIN 125 MCG TABLET GT SCH (08:38)
[2020-02-15] MEDS: FAMOTIDINE 20 MG TABLET GT SCH ×2 (08:39→20:49)
[2020-02-15] MEDS: THERAHONEY GEL 1.5 OZ TUBE TOP SCH ×2 (08:39→20:49)
[2020-02-15] MEDS: NORMAL SALINE NASAL 45 ML BOTTLE NS SCH (08:39)
[2020-02-15] MEDS: TRIAMCINOLONE ACET 0.1% CREAM 15 GM TUBE TOP SCH ×2 (08:39→20:49)
[2020-02-15] MEDS: FUROSEMIDE 20 MG TABLET GT SCH (08:39)
[2020-02-15] MEDS: POTASSIUM CHLORIDE 40 MEQ/30 ML LIQUID UDC GT SCH (08:39)
[2020-02-15] MEDS: NYSTATIN CREAM 30 GM TUBE TOP SCH ×2 (08:39→20:49)
[2020-02-15] MEDS: SODIUM HYPOCHLORITE 0.125% (QUARTER STRENGTH) 473 ML BOTTLE TP SCH ×2 (08:39→20:49)
[2020-02-15] MEDS: Z GUARD REMEDY PASTE 57 GM TUBE TOP SCH ×2 (08:39→20:49)
[2020-02-15] MEDS: ACETAMINOPHEN 650 MG/20.3 ML LIQUID UDC GT PRN (08:40)
[2020-02-15] MEDS: HYDROGEN PEROXIDE 3% 118 ML BOTTLE TP SCH ×2 (09:00→21:17)
[2020-02-15] MEDS: GLUCERNA 1.2 1000ML LIQUID GT PRN (17:41)
[2020-02-15] MEDS: ACIDOPHILUS/BULGARICUS CHEW TAB GT SCH (20:49)
[2020-02-15] MEDS: ASCORBIC ACID 500 MG TABLET PO SCH (20:49)
[2020-02-15 20:52] VITALS: BP 122/62
--- NOTE | 2020-02-15 23:32 | NUR ---
Received pt on HT-50 ventilator with the following settings of AC-12, Vt-550, PEEP+5, FIO2-30%, trached with Shiley#6 DCT trach, which is in the place and secure. No respiratory distress noted. Airway care done, pt responded to physical stimuli. Resus. bag and back up trach at bedside. Vent and alarms checked and reset.
[2020-02-16] MEDS: PROTEIN SUPPLEMENT (PROSTAT) 30 ML LIQUID GT SCH ×3 (05:52→21:06)
[2020-02-16] MEDS: ARGININE/GLUTAMINE/CALCIUM BMB 1 EACH POWD.PACK GT SCH ×2 (05:52→18:11)
[2020-02-16] MEDS: POLYVINYL ALCOHOL OPHT DROPS 15 ML BOTTLE EACHEYE SCH ×3 (05:52→21:06)
[2020-02-16 07:57] VITALS: BP 113/61
[2020-02-16] MEDS: levETIRAcetam 500 MG/5 ML LIQUID UDC GT SCH ×2 (08:32→21:06)
[2020-02-16] MEDS: DIGOXIN 125 MCG TABLET GT SCH (08:33)
[2020-02-16] MEDS: FUROSEMIDE 20 MG TABLET GT SCH (08:33)
[2020-02-16] MEDS: FAMOTIDINE 20 MG TABLET GT SCH ×2 (08:34→21:06)
[2020-02-16] MEDS: NYSTATIN CREAM 30 GM TUBE TOP SCH ×2 (08:35→21:06)
[2020-02-16] MEDS: TRIAMCINOLONE ACET 0.1% CREAM 15 GM TUBE TOP SCH ×2 (08:35→21:06)
[2020-02-16] MEDS: NORMAL SALINE NASAL 45 ML BOTTLE NS SCH (08:35)
[2020-02-16] MEDS: Z GUARD REMEDY PASTE 57 GM TUBE TOP SCH ×2 (08:35→21:06)
[2020-02-16] MEDS: POTASSIUM CHLORIDE 40 MEQ/30 ML LIQUID UDC GT SCH (08:35)
[2020-02-16] MEDS: THERAHONEY GEL 1.5 OZ TUBE TOP SCH ×2 (08:35→21:06)
[2020-02-16] MEDS: SODIUM HYPOCHLORITE 0.125% (QUARTER STRENGTH) 473 ML BOTTLE TP SCH ×2 (08:35→21:06)
[2020-02-16] MEDS: ACETAMINOPHEN 650 MG/20.3 ML LIQUID UDC GT PRN (08:36)
[2020-02-16] MEDS: HYDROGEN PEROXIDE 3% 118 ML BOTTLE TP SCH ×2 (09:24→21:00)
[2020-02-16] MEDS: GLUCERNA 1.2 1000ML LIQUID GT PRN (19:40)
[2020-02-16] MEDS: ASCORBIC ACID 500 MG TABLET PO SCH (21:06)
[2020-02-16] MEDS: ACIDOPHILUS/BULGARICUS CHEW TAB GT SCH (21:06)
[2020-02-16 23:03] VITALS: BP 125/57
[2020-02-17] MEDS: ARGININE/GLUTAMINE/CALCIUM BMB 1 EACH POWD.PACK GT SCH ×2 (05:33→17:16)
[2020-02-17] MEDS: POLYVINYL ALCOHOL OPHT DROPS 15 ML BOTTLE EACHEYE SCH ×3 (05:33→22:26)
[2020-02-17] MEDS: PROTEIN SUPPLEMENT (PROSTAT) 30 ML LIQUID GT SCH ×3 (05:33→22:26)
[2020-02-17 07:35] VITALS: BP 130/64
[2020-02-17] MEDS: HYDROGEN PEROXIDE 3% 118 ML BOTTLE TP SCH ×2 (08:29→21:22)
[2020-02-17] MEDS: levETIRAcetam 500 MG/5 ML LIQUID UDC GT SCH ×2 (09:10→20:32)
[2020-02-17] MEDS: FUROSEMIDE 20 MG TABLET GT SCH (09:12)
[2020-02-17] MEDS: DIGOXIN 125 MCG TABLET GT SCH (09:12)
[2020-02-17] MEDS: FAMOTIDINE 20 MG TABLET GT SCH ×2 (09:12→20:32)
[2020-02-17] MEDS: NYSTATIN CREAM 30 GM TUBE TOP SCH ×2 (09:14→20:32)
[2020-02-17] MEDS: THERAHONEY GEL 1.5 OZ TUBE TOP SCH ×2 (09:14→20:32)
[2020-02-17] MEDS: POTASSIUM CHLORIDE 40 MEQ/30 ML LIQUID UDC GT SCH (09:14)
[2020-02-17] MEDS: Z GUARD REMEDY PASTE 57 GM TUBE TOP SCH ×2 (09:14→20:32)
[2020-02-17] MEDS: SODIUM HYPOCHLORITE 0.125% (QUARTER STRENGTH) 473 ML BOTTLE TP SCH ×2 (09:14→20:32)
[2020-02-17] MEDS: TRIAMCINOLONE ACET 0.1% CREAM 15 GM TUBE TOP SCH ×2 (09:14→20:32)
[2020-02-17] MEDS: NORMAL SALINE NASAL 45 ML BOTTLE NS SCH (09:14)
--- NOTE | 2020-02-17 12:00 | NUR ---
SEEN BY ROOPA PManjula AND WITH NNO .
[2020-02-17] MEDS: GLUCERNA 1.2 1000ML LIQUID GT PRN (15:56)
--- NOTE | 2020-02-17 17:49 | NUR ---
PT'S DTR. HARLEY AWARE THAT PT. IS NEGATIVE FOR COVID 19 TSET.
[2020-02-17 20:14] VITALS: BP 131/61
[2020-02-17] MEDS: ACIDOPHILUS/BULGARICUS CHEW TAB GT SCH (20:32)
[2020-02-17] MEDS: ASCORBIC ACID 500 MG TABLET PO SCH (20:32)
[2020-02-18] MEDS: PROTEIN SUPPLEMENT (PROSTAT) 30 ML LIQUID GT SCH ×3 (05:28→22:13)
[2020-02-18] MEDS: POLYVINYL ALCOHOL OPHT DROPS 15 ML BOTTLE EACHEYE SCH ×3 (05:28→22:13)
[2020-02-18] MEDS: ARGININE/GLUTAMINE/CALCIUM BMB 1 EACH POWD.PACK GT SCH ×2 (05:28→17:04)
[2020-02-18 07:35] VITALS: BP 98/54
[2020-02-18] MEDS: FAMOTIDINE 20 MG TABLET GT SCH ×2 (08:14→20:14)
[2020-02-18] MEDS: POTASSIUM CHLORIDE 40 MEQ/30 ML LIQUID UDC GT SCH (08:14)
[2020-02-18] MEDS: FUROSEMIDE 20 MG TABLET GT SCH (08:14)
[2020-02-18] MEDS: levETIRAcetam 500 MG/5 ML LIQUID UDC GT SCH ×2 (08:14→20:11)
[2020-02-18] MEDS: DIGOXIN 125 MCG TABLET GT SCH (08:14)
[2020-02-18] MEDS: TRIAMCINOLONE ACET 0.1% CREAM 15 GM TUBE TOP SCH ×2 (08:15→20:15)
[2020-02-18] MEDS: NYSTATIN CREAM 30 GM TUBE TOP SCH ×2 (08:15→20:15)
[2020-02-18] MEDS: Z GUARD REMEDY PASTE 57 GM TUBE TOP SCH ×2 (08:15→20:15)
[2020-02-18] MEDS: SODIUM HYPOCHLORITE 0.125% (QUARTER STRENGTH) 473 ML BOTTLE TP SCH ×2 (08:15→20:15)
[2020-02-18] MEDS: NORMAL SALINE NASAL 45 ML BOTTLE NS SCH (08:15)
[2020-02-18] MEDS: THERAHONEY GEL 1.5 OZ TUBE TOP SCH ×2 (08:15→20:15)
[2020-02-18] MEDS: HYDROGEN PEROXIDE 3% 118 ML BOTTLE TP SCH ×2 (08:39→21:21)
[2020-02-18] MEDS: GLUCERNA 1.2 1000ML LIQUID GT PRN (17:05)
[2020-02-18 20:09] VITALS: BP 128/60
[2020-02-18] MEDS: ACIDOPHILUS/BULGARICUS CHEW TAB GT SCH (20:10)
[2020-02-18] MEDS: ASCORBIC ACID 500 MG TABLET PO SCH (20:15)
[2020-02-19] MEDS: PROTEIN SUPPLEMENT (PROSTAT) 30 ML LIQUID GT SCH ×3 (06:11→22:32)
[2020-02-19] MEDS: ARGININE/GLUTAMINE/CALCIUM BMB 1 EACH POWD.PACK GT SCH ×2 (06:11→17:56)
[2020-02-19] MEDS: POLYVINYL ALCOHOL OPHT DROPS 15 ML BOTTLE EACHEYE SCH ×3 (06:11→22:32)
[2020-02-19 07:45] VITALS: BP 121/64
[2020-02-19] MEDS: HYDROGEN PEROXIDE 3% 118 ML BOTTLE TP SCH ×2 (08:10→21:00)
[2020-02-19] MEDS: levETIRAcetam 500 MG/5 ML LIQUID UDC GT SCH ×2 (08:22→20:45)
[2020-02-19] MEDS: FUROSEMIDE 20 MG TABLET GT SCH (08:22)
[2020-02-19] MEDS: FAMOTIDINE 20 MG TABLET GT SCH ×2 (08:23→20:46)
[2020-02-19] MEDS: DIGOXIN 125 MCG TABLET GT SCH (08:23)
[2020-02-19] MEDS: NORMAL SALINE NASAL 45 ML BOTTLE NS SCH (08:24)
[2020-02-19] MEDS: POTASSIUM CHLORIDE 40 MEQ/30 ML LIQUID UDC GT SCH (08:24)
[2020-02-19] MEDS: ACETAMINOPHEN 650 MG/20 ML UDC- SA PATIENTS-PAIN ONLY GT PRN (08:26)
[2020-02-19] MEDS: THERAHONEY GEL 1.5 OZ TUBE TOP SCH ×2 (09:26→20:48)
[2020-02-19] MEDS: NYSTATIN CREAM 30 GM TUBE TOP SCH ×2 (09:26→20:47)
[2020-02-19] MEDS: SODIUM HYPOCHLORITE 0.125% (QUARTER STRENGTH) 473 ML BOTTLE TP SCH ×2 (09:26→20:48)
[2020-02-19] MEDS: TRIAMCINOLONE ACET 0.1% CREAM 15 GM TUBE TOP SCH ×2 (09:26→20:47)
[2020-02-19] MEDS: Z GUARD REMEDY PASTE 57 GM TUBE TOP SCH ×2 (09:30→20:47)
[2020-02-19] MEDS: GLUCERNA 1.2 1000ML LIQUID GT PRN (17:58)
[2020-02-19 19:55] VITALS: BP 129/66
[2020-02-19] MEDS: ACIDOPHILUS/BULGARICUS CHEW TAB GT SCH (20:45)
[2020-02-19] MEDS: ASCORBIC ACID 500 MG TABLET PO SCH (20:47)
[2020-02-20] MEDS: POLYVINYL ALCOHOL OPHT DROPS 15 ML BOTTLE EACHEYE SCH ×3 (05:54→21:07)
[2020-02-20] MEDS: ARGININE/GLUTAMINE/CALCIUM BMB 1 EACH POWD.PACK GT SCH ×2 (05:54→17:09)
[2020-02-20] MEDS: PROTEIN SUPPLEMENT (PROSTAT) 30 ML LIQUID GT SCH ×3 (05:54→21:07)
[2020-02-20 07:47] VITALS: BP 130/70
[2020-02-20] MEDS: levETIRAcetam 500 MG/5 ML LIQUID UDC GT SCH ×2 (08:39→20:52)
[2020-02-20] MEDS: FAMOTIDINE 20 MG TABLET GT SCH ×2 (08:41→20:52)
[2020-02-20] MEDS: FUROSEMIDE 20 MG TABLET GT SCH (08:41)
[2020-02-20] MEDS: DIGOXIN 125 MCG TABLET GT SCH (08:41)
[2020-02-20] MEDS: POTASSIUM CHLORIDE 40 MEQ/30 ML LIQUID UDC GT SCH (08:42)
[2020-02-20] MEDS: TRIAMCINOLONE ACET 0.1% CREAM 15 GM TUBE TOP SCH ×2 (08:43→20:53)
[2020-02-20] MEDS: NORMAL SALINE NASAL 45 ML BOTTLE NS SCH (08:43)
[2020-02-20] MEDS: Z GUARD REMEDY PASTE 57 GM TUBE TOP SCH ×2 (08:44→20:53)
[2020-02-20] MEDS: SODIUM HYPOCHLORITE 0.125% (QUARTER STRENGTH) 473 ML BOTTLE TP SCH ×2 (08:44→20:54)
[2020-02-20] MEDS: NYSTATIN CREAM 30 GM TUBE TOP SCH ×2 (08:44→20:53)
[2020-02-20] MEDS: THERAHONEY GEL 1.5 OZ TUBE TOP SCH ×2 (08:44→20:54)
[2020-02-20] MEDS: HYDROGEN PEROXIDE 3% 118 ML BOTTLE TP SCH ×2 (09:55→21:00)
[2020-02-20] MEDS: GLUCERNA 1.2 1000ML LIQUID GT PRN (17:18)
[2020-02-20 19:53] VITALS: BP 123/65
[2020-02-20] MEDS: ACIDOPHILUS/BULGARICUS CHEW TAB GT SCH (20:50)
[2020-02-20] MEDS: ASCORBIC ACID 500 MG TABLET PO SCH (20:53)
[2020-02-21] MEDS: POLYVINYL ALCOHOL OPHT DROPS 15 ML BOTTLE EACHEYE SCH ×3 (05:39→21:57)
[2020-02-21] MEDS: ARGININE/GLUTAMINE/CALCIUM BMB 1 EACH POWD.PACK GT SCH ×2 (05:39→17:46)
[2020-02-21] MEDS: PROTEIN SUPPLEMENT (PROSTAT) 30 ML LIQUID GT SCH ×3 (05:39→21:58)
[2020-02-21 07:26] VITALS: BP 130/70
[2020-02-21] MEDS: FAMOTIDINE 20 MG TABLET GT SCH ×2 (08:48→21:57)
[2020-02-21] MEDS: Z GUARD REMEDY PASTE 57 GM TUBE TOP SCH ×2 (08:48→21:57)
[2020-02-21] MEDS: DIGOXIN 125 MCG TABLET GT SCH (08:48)
[2020-02-21] MEDS: TRIAMCINOLONE ACET 0.1% CREAM 15 GM TUBE TOP SCH ×2 (08:48→21:57)
[2020-02-21] MEDS: FUROSEMIDE 20 MG TABLET GT SCH (08:48)
[2020-02-21] MEDS: POTASSIUM CHLORIDE 40 MEQ/30 ML LIQUID UDC GT SCH (08:48)
[2020-02-21] MEDS: NORMAL SALINE NASAL 45 ML BOTTLE NS SCH (08:48)
[2020-02-21] MEDS: levETIRAcetam 500 MG/5 ML LIQUID UDC GT SCH ×2 (08:48→21:57)
[2020-02-21] MEDS: NYSTATIN CREAM 30 GM TUBE TOP SCH ×2 (08:48→21:57)
[2020-02-21] MEDS: SODIUM HYPOCHLORITE 0.125% (QUARTER STRENGTH) 473 ML BOTTLE TP SCH ×2 (08:49→21:57)
[2020-02-21] MEDS: THERAHONEY GEL 1.5 OZ TUBE TOP SCH ×2 (08:49→21:57)
[2020-02-21] MEDS: HYDROGEN PEROXIDE 3% 118 ML BOTTLE TP SCH ×2 (09:10→21:21)
[2020-02-21] MEDS: GLUCERNA 1.2 1000ML LIQUID GT PRN (17:46)
[2020-02-21 19:37] VITALS: BP 134/64
[2020-02-21] MEDS: ACIDOPHILUS/BULGARICUS CHEW TAB GT SCH (21:57)
[2020-02-21] MEDS: ASCORBIC ACID 500 MG TABLET PO SCH (21:57)
[2020-02-22] MEDS: ARGININE/GLUTAMINE/CALCIUM BMB 1 EACH POWD.PACK GT SCH ×2 (05:43→17:42)
[2020-02-22] MEDS: PROTEIN SUPPLEMENT (PROSTAT) 30 ML LIQUID GT SCH ×3 (05:43→22:15)
[2020-02-22] MEDS: POLYVINYL ALCOHOL OPHT DROPS 15 ML BOTTLE EACHEYE SCH ×3 (05:43→22:15)
[2020-02-22 07:22] LABS: BASOPHILS % (AUTO) 0.8 % (0.0-2.0); EOSINOPHILS # (AUTO) 0.2 K/uL (0.0-0.7); EOSINOPHILS % (AUTO) 4.8 % (0.0-7.0); HEMATOCRIT 36.9 % (31.2-41.9); HEMOGLOBIN 12.5 g/dL (10.9-14.3); LYMPHOCYTES # (AUTO) 1.4 K/uL (20.0-40.0); LYMPHOCYTES % (AUTO) 37.9 % (20.5-51.5); MEAN CORPUSCULAR HEMOGLOBIN 31.4 uug (24.7-32.8); MEAN CORPUSCULAR HGB CONC 34 g/dL (32.3-35.6); MEAN CORPUSCULAR VOLUME 92.7 fL (75.5-95.3); MONOCYTES # (AUTO) 0.5 K/uL (2.0-10.0); MONOCYTES % (AUTO) 12.5 % (0.0-11.0); NEUTROPHILS # (AUTO) 1.6 K/uL (1.8-8.9); PLATELET COUNT (AUTO) 90 K/uL (179-408); RED BLOOD CELL COUNT(AUTO) 3.98 MIL/uL (3.63-4.92); WHITE BLOOD COUNT (AUTO) 3.7 K/uL (3.8-11.8)
[2020-02-22 07:27] VITALS: BP 133/77
[2020-02-22 07:30] LABS: CARBON DIOXIDE 36 mmol/L (21-32); CHLORIDE 105 mmol/L (98-107); CREATININE 0.5 mg/dL (0.6-1.3); GLUCOSE 98 mg/dL (74-106); MAGNESIUM 2.4 mg/dL (1.8-2.4); PHOSPHOROUS 3.2 mg/dL (2.5-4.9); POTASSIUM 3.7 mmol/L (3.5-5.1); UREA NITROGEN, BLOOD 33 mg/dL (7-18)
[2020-02-22] MEDS: DIGOXIN 125 MCG TABLET GT SCH (08:57)
[2020-02-22] MEDS: NYSTATIN CREAM 30 GM TUBE TOP SCH ×2 (08:57→20:45)
[2020-02-22] MEDS: POTASSIUM CHLORIDE 40 MEQ/30 ML LIQUID UDC GT SCH (08:57)
[2020-02-22] MEDS: FUROSEMIDE 20 MG TABLET GT SCH (08:57)
[2020-02-22] MEDS: THERAHONEY GEL 1.5 OZ TUBE TOP SCH ×2 (08:57→20:45)
[2020-02-22] MEDS: NORMAL SALINE NASAL 45 ML BOTTLE NS SCH (08:57)
[2020-02-22] MEDS: TRIAMCINOLONE ACET 0.1% CREAM 15 GM TUBE TOP SCH ×2 (08:57→20:45)
[2020-02-22] MEDS: Z GUARD REMEDY PASTE 57 GM TUBE TOP SCH ×2 (08:57→20:45)
[2020-02-22] MEDS: FAMOTIDINE 20 MG TABLET GT SCH ×2 (08:57→20:45)
[2020-02-22] MEDS: SODIUM HYPOCHLORITE 0.125% (QUARTER STRENGTH) 473 ML BOTTLE TP SCH ×2 (08:57→20:45)
[2020-02-22] MEDS: levETIRAcetam 500 MG/5 ML LIQUID UDC GT SCH ×2 (08:57→20:45)
[2020-02-22] MEDS: HYDROGEN PEROXIDE 3% 118 ML BOTTLE TP SCH ×2 (09:00→21:21)
[2020-02-22 17:06] LABS: LYMPHOCYTES % (MANUAL) 21 % (20-40); MONOCYTES % (MANUAL) 4 % (2-10); NEUTROPHILS % (MANUAL) 75 % (42-75)
--- NOTE | 2020-02-22 20:01 | NUR ---
Received pt on HT-50 ventilator with the following settings of AC-12, Vt-550, PEEP+5, FIO2-30%, trached with Shiley#6 DCT trach, which is in the place and secure. No s/s of respiratory distress noted. Airway care done, pt responded to physical stimuli. HME, Sx Quispe and trach tube zavala changed. Resus. bag and back up trach at bedside. Vent and alarms checked and reset.
[2020-02-22 20:37] VITALS: BP 132/64
[2020-02-22] MEDS: ACIDOPHILUS/BULGARICUS CHEW TAB GT SCH (20:45)
[2020-02-22] MEDS: ASCORBIC ACID 500 MG TABLET PO SCH (20:45)
[2020-02-22] MEDS: GLUCERNA 1.2 1000ML LIQUID GT PRN (20:54)
[2020-02-23] MEDS: POLYVINYL ALCOHOL OPHT DROPS 15 ML BOTTLE EACHEYE SCH ×3 (05:44→21:24)
[2020-02-23] MEDS: ARGININE/GLUTAMINE/CALCIUM BMB 1 EACH POWD.PACK GT SCH ×2 (05:44→17:14)
[2020-02-23] MEDS: PROTEIN SUPPLEMENT (PROSTAT) 30 ML LIQUID GT SCH ×3 (05:44→21:24)
[2020-02-23] MEDS: HYDROGEN PEROXIDE 3% 118 ML BOTTLE TP SCH ×2 (07:17→20:51)
[2020-02-23 07:35] VITALS: BP 144/71
[2020-02-23] MEDS: levETIRAcetam 500 MG/5 ML LIQUID UDC GT SCH ×2 (08:44→21:23)
[2020-02-23] MEDS: POTASSIUM CHLORIDE 40 MEQ/30 ML LIQUID UDC GT SCH (08:44)
[2020-02-23] MEDS: NORMAL SALINE NASAL 45 ML BOTTLE NS SCH (08:44)
[2020-02-23] MEDS: TRIAMCINOLONE ACET 0.1% CREAM 15 GM TUBE TOP SCH ×2 (08:44→21:24)
[2020-02-23] MEDS: FUROSEMIDE 20 MG TABLET GT SCH (08:44)
[2020-02-23] MEDS: DIGOXIN 125 MCG TABLET GT SCH (08:44)
[2020-02-23] MEDS: FAMOTIDINE 20 MG TABLET GT SCH ×2 (08:44→21:23)
[2020-02-23] MEDS: NYSTATIN CREAM 30 GM TUBE TOP SCH ×2 (08:45→21:24)
[2020-02-23] MEDS: THERAHONEY GEL 1.5 OZ TUBE TOP SCH ×2 (08:45→21:24)
[2020-02-23] MEDS: SODIUM HYPOCHLORITE 0.125% (QUARTER STRENGTH) 473 ML BOTTLE TP SCH ×2 (08:45→21:24)
[2020-02-23] MEDS: Z GUARD REMEDY PASTE 57 GM TUBE TOP SCH ×2 (08:45→21:24)
[2020-02-23] MEDS: ACIDOPHILUS/BULGARICUS CHEW TAB GT SCH (21:23)
[2020-02-23] MEDS: ASCORBIC ACID 500 MG TABLET PO SCH (21:24)
[2020-02-23 22:00] VITALS: BP 120/56
[2020-02-24] MEDS: GLUCERNA 1.2 1000ML LIQUID GT PRN (02:52)
[2020-02-24] MEDS: POLYVINYL ALCOHOL OPHT DROPS 15 ML BOTTLE EACHEYE SCH ×3 (05:27→22:00)
[2020-02-24] MEDS: ARGININE/GLUTAMINE/CALCIUM BMB 1 EACH POWD.PACK GT SCH ×2 (05:28→17:28)
[2020-02-24] MEDS: PROTEIN SUPPLEMENT (PROSTAT) 30 ML LIQUID GT SCH ×3 (05:28→22:00)
--- NOTE | 2020-02-24 07:13 | NUR ---
Will test patient for COVID-19 today.
[2020-02-24 07:30] VITALS: BP 151/67
[2020-02-24] MEDS: levETIRAcetam 500 MG/5 ML LIQUID UDC GT SCH ×2 (08:38→20:31)
[2020-02-24] MEDS: DIGOXIN 125 MCG TABLET GT SCH (08:41)
[2020-02-24] MEDS: TRIAMCINOLONE ACET 0.1% CREAM 15 GM TUBE TOP SCH ×2 (08:42→20:31)
[2020-02-24] MEDS: POTASSIUM CHLORIDE 40 MEQ/30 ML LIQUID UDC GT SCH (08:42)
[2020-02-24] MEDS: FAMOTIDINE 20 MG TABLET GT SCH ×2 (08:42→20:31)
[2020-02-24] MEDS: NORMAL SALINE NASAL 45 ML BOTTLE NS SCH (08:42)
[2020-02-24] MEDS: Z GUARD REMEDY PASTE 57 GM TUBE TOP SCH ×2 (08:42→20:31)
[2020-02-24] MEDS: FUROSEMIDE 20 MG TABLET GT SCH (08:42)
[2020-02-24] MEDS: NYSTATIN CREAM 30 GM TUBE TOP SCH ×2 (08:42→20:31)
[2020-02-24] MEDS: SODIUM HYPOCHLORITE 0.125% (QUARTER STRENGTH) 473 ML BOTTLE TP SCH ×2 (08:43→20:31)
[2020-02-24] MEDS: THERAHONEY GEL 1.5 OZ TUBE TOP SCH ×2 (08:43→20:31)
[2020-02-24] MEDS: HYDROGEN PEROXIDE 3% 118 ML BOTTLE TP SCH ×2 (09:47→21:29)
--- NOTE | 2020-02-24 12:30 | NUR ---
SEEN BY ROOPA Dixon AND WITH NNO.
--- NOTE | 2020-02-24 17:15 | NUR ---
NO [facility] REQUIRED BY [facility] TODAY AND PT'S DTR.HARLEY ROSALES.
[2020-02-24 20:00] VITALS: BP 108/63
[2020-02-24] MEDS: ASCORBIC ACID 500 MG TABLET PO SCH (20:31)
[2020-02-24] MEDS: ACIDOPHILUS/BULGARICUS CHEW TAB GT SCH (20:31)
[2020-02-25] MEDS: GLUCERNA 1.2 1000ML LIQUID GT PRN (04:13)
[2020-02-25] MEDS: PROTEIN SUPPLEMENT (PROSTAT) 30 ML LIQUID GT SCH ×3 (05:01→21:02)
[2020-02-25] MEDS: POLYVINYL ALCOHOL OPHT DROPS 15 ML BOTTLE EACHEYE SCH ×3 (05:01→21:02)
[2020-02-25] MEDS: ARGININE/GLUTAMINE/CALCIUM BMB 1 EACH POWD.PACK GT SCH ×2 (05:01→17:20)
[2020-02-25] MEDS: HYDROGEN PEROXIDE 3% 118 ML BOTTLE TP SCH ×2 (07:25→21:02)
[2020-02-25 07:44] VITALS: BP 143/66
[2020-02-25] MEDS: levETIRAcetam 500 MG/5 ML LIQUID UDC GT SCH ×2 (09:28→21:01)
[2020-02-25] MEDS: FUROSEMIDE 20 MG TABLET GT SCH (09:29)
[2020-02-25] MEDS: TRIAMCINOLONE ACET 0.1% CREAM 15 GM TUBE TOP SCH ×2 (09:29→21:02)
[2020-02-25] MEDS: SODIUM HYPOCHLORITE 0.125% (QUARTER STRENGTH) 473 ML BOTTLE TP SCH ×2 (09:29→21:02)
[2020-02-25] MEDS: NYSTATIN CREAM 30 GM TUBE TOP SCH ×2 (09:29→21:02)
[2020-02-25] MEDS: DIGOXIN 125 MCG TABLET GT SCH (09:29)
[2020-02-25] MEDS: THERAHONEY GEL 1.5 OZ TUBE TOP SCH ×2 (09:29→21:02)
[2020-02-25] MEDS: POTASSIUM CHLORIDE 40 MEQ/30 ML LIQUID UDC GT SCH (09:29)
[2020-02-25] MEDS: FAMOTIDINE 20 MG TABLET GT SCH ×2 (09:29→21:01)
[2020-02-25] MEDS: NORMAL SALINE NASAL 45 ML BOTTLE NS SCH (09:30)
[2020-02-25] MEDS: Z GUARD REMEDY PASTE 57 GM TUBE TOP SCH ×2 (09:30→21:02)
--- NOTE | 2020-02-25 14:08 | NUR ---
INTERDISCIPLINARY PLAN OF CARE CONFERENCE was held today. Patient's daughter was not available to participate in the meeting. Dr. Murguia and the Interdisciplinary team reviewed the current plan of care in detail. RN reported on the patient's medical condition, and findings of recent labs. No major changes in patient's condition were reported by RN or by the other disciplines. See RN IDT conference notes. See also all other disciplines IDT notes and physician's progress notes for additional details.
[2020-02-25 20:00] VITALS: BP 124/48
[2020-02-25] MEDS: ASCORBIC ACID 500 MG TABLET PO SCH (21:01)
[2020-02-25] MEDS: ACIDOPHILUS/BULGARICUS CHEW TAB GT SCH (21:01)
[2020-02-26] MEDS: ARGININE/GLUTAMINE/CALCIUM BMB 1 EACH POWD.PACK GT SCH ×2 (05:24→17:04)
[2020-02-26] MEDS: POLYVINYL ALCOHOL OPHT DROPS 15 ML BOTTLE EACHEYE SCH ×3 (05:24→21:33)
[2020-02-26] MEDS: PROTEIN SUPPLEMENT (PROSTAT) 30 ML LIQUID GT SCH ×3 (05:24→21:33)
[2020-02-26 07:31] VITALS: BP 145/76
[2020-02-26] MEDS: levETIRAcetam 500 MG/5 ML LIQUID UDC GT SCH ×2 (08:29→21:32)
[2020-02-26] MEDS: DIGOXIN 125 MCG TABLET GT SCH (08:32)
[2020-02-26] MEDS: POTASSIUM CHLORIDE 40 MEQ/30 ML LIQUID UDC GT SCH (08:32)
[2020-02-26] MEDS: FUROSEMIDE 20 MG TABLET GT SCH (08:32)
[2020-02-26] MEDS: FAMOTIDINE 20 MG TABLET GT SCH ×2 (08:32→21:32)
[2020-02-26] MEDS: NORMAL SALINE NASAL 45 ML BOTTLE NS SCH (08:33)
[2020-02-26] MEDS: ACETAMINOPHEN 650 MG/20.3 ML LIQUID UDC GT PRN (08:35)
[2020-02-26] MEDS: NYSTATIN CREAM 30 GM TUBE TOP SCH ×2 (09:00→21:32)
[2020-02-26] MEDS: Z GUARD REMEDY PASTE 57 GM TUBE TOP SCH ×2 (09:00→21:33)
[2020-02-26] MEDS: TRIAMCINOLONE ACET 0.1% CREAM 15 GM TUBE TOP SCH ×2 (09:00→21:32)
[2020-02-26] MEDS: SODIUM HYPOCHLORITE 0.125% (QUARTER STRENGTH) 473 ML BOTTLE TP SCH ×2 (09:00→21:33)
[2020-02-26] MEDS: HYDROGEN PEROXIDE 3% 118 ML BOTTLE TP SCH ×2 (09:16→20:50)
[2020-02-26] MEDS: THERAHONEY GEL 1.5 OZ TUBE TOP SCH ×2 (09:30→21:33)
--- NOTE | 2020-02-26 18:59 | NUR ---
Seen and examined by Dr Betancur ,no new orders.
[2020-02-26 20:00] VITALS: BP 135/72
[2020-02-26] MEDS: ASCORBIC ACID 500 MG TABLET PO SCH (21:32)
[2020-02-26] MEDS: ACIDOPHILUS/BULGARICUS CHEW TAB GT SCH (21:32)
[2020-02-27] MEDS: POLYVINYL ALCOHOL OPHT DROPS 15 ML BOTTLE EACHEYE SCH ×3 (06:52→21:01)
[2020-02-27] MEDS: ARGININE/GLUTAMINE/CALCIUM BMB 1 EACH POWD.PACK GT SCH ×2 (06:52→17:18)
[2020-02-27] MEDS: PROTEIN SUPPLEMENT (PROSTAT) 30 ML LIQUID GT SCH ×3 (06:52→21:01)
[2020-02-27 07:16] VITALS: BP 159/79
[2020-02-27] MEDS: HYDROGEN PEROXIDE 3% 118 ML BOTTLE TP SCH ×2 (07:47→19:19)
--- NOTE | 2020-02-27 07:58 | NUR ---
Patient's air mattress was leaking continuously, per [employer] need to place a new order on [facility], order done.
[2020-02-27] MEDS: levETIRAcetam 500 MG/5 ML LIQUID UDC GT SCH ×2 (09:02→21:01)
[2020-02-27] MEDS: TRIAMCINOLONE ACET 0.1% CREAM 15 GM TUBE TOP SCH ×2 (09:03→21:01)
[2020-02-27] MEDS: Z GUARD REMEDY PASTE 57 GM TUBE TOP SCH ×2 (09:03→21:01)
[2020-02-27] MEDS: NYSTATIN CREAM 30 GM TUBE TOP SCH ×2 (09:03→21:01)
[2020-02-27] MEDS: DIGOXIN 125 MCG TABLET GT SCH (09:03)
[2020-02-27] MEDS: POTASSIUM CHLORIDE 40 MEQ/30 ML LIQUID UDC GT SCH (09:03)
[2020-02-27] MEDS: FUROSEMIDE 20 MG TABLET GT SCH (09:03)
[2020-02-27] MEDS: SODIUM HYPOCHLORITE 0.125% (QUARTER STRENGTH) 473 ML BOTTLE TP SCH ×2 (09:03→21:01)
[2020-02-27] MEDS: THERAHONEY GEL 1.5 OZ TUBE TOP SCH ×2 (09:03→21:01)
[2020-02-27] MEDS: NORMAL SALINE NASAL 45 ML BOTTLE NS SCH (09:03)
[2020-02-27] MEDS: FAMOTIDINE 20 MG TABLET GT SCH ×2 (09:03→21:01)
[2020-02-27] MEDS: GLUCERNA 1.2 1000ML LIQUID GT PRN (13:11)
[2020-02-27 20:00] VITALS: BP 132/49
[2020-02-27] MEDS: ASCORBIC ACID 500 MG TABLET PO SCH (21:01)
[2020-02-27] MEDS: ACIDOPHILUS/BULGARICUS CHEW TAB GT SCH (21:01)
[2020-02-28] MEDS: POLYVINYL ALCOHOL OPHT DROPS 15 ML BOTTLE EACHEYE SCH ×3 (05:26→21:02)
[2020-02-28] MEDS: PROTEIN SUPPLEMENT (PROSTAT) 30 ML LIQUID GT SCH ×3 (05:27→21:02)
[2020-02-28] MEDS: ARGININE/GLUTAMINE/CALCIUM BMB 1 EACH POWD.PACK GT SCH ×2 (05:27→17:47)
[2020-02-28 07:41] VITALS: BP 143/68
[2020-02-28] MEDS: HYDROGEN PEROXIDE 3% 118 ML BOTTLE TP SCH ×2 (08:59→21:00)
[2020-02-28] MEDS: levETIRAcetam 500 MG/5 ML LIQUID UDC GT SCH ×2 (09:31→20:43)
[2020-02-28] MEDS: FUROSEMIDE 20 MG TABLET GT SCH (09:32)
[2020-02-28] MEDS: POTASSIUM CHLORIDE 40 MEQ/30 ML LIQUID UDC GT SCH (09:32)
[2020-02-28] MEDS: DIGOXIN 125 MCG TABLET GT SCH (09:32)
[2020-02-28] MEDS: FAMOTIDINE 20 MG TABLET GT SCH ×2 (09:32→20:43)
[2020-02-28] MEDS: SODIUM HYPOCHLORITE 0.125% (QUARTER STRENGTH) 473 ML BOTTLE TP SCH ×2 (09:33→20:44)
[2020-02-28] MEDS: THERAHONEY GEL 1.5 OZ TUBE TOP SCH ×2 (09:33→20:44)
[2020-02-28] MEDS: TRIAMCINOLONE ACET 0.1% CREAM 15 GM TUBE TOP SCH ×2 (09:33→20:43)
[2020-02-28] MEDS: Z GUARD REMEDY PASTE 57 GM TUBE TOP SCH ×2 (09:33→20:43)
[2020-02-28] MEDS: NORMAL SALINE NASAL 45 ML BOTTLE NS SCH (09:33)
[2020-02-28] MEDS: NYSTATIN CREAM 30 GM TUBE TOP SCH ×2 (09:33→20:43)
[2020-02-28] MEDS: ACETAMINOPHEN 650 MG/20.3 ML LIQUID UDC GT PRN (09:33)
[2020-02-28 20:00] VITALS: BP 128/64
[2020-02-28] MEDS: ACIDOPHILUS/BULGARICUS CHEW TAB GT SCH (20:43)
[2020-02-28] MEDS: ASCORBIC ACID 500 MG TABLET PO SCH (20:43)
[2020-02-29] MEDS: POLYVINYL ALCOHOL OPHT DROPS 15 ML BOTTLE EACHEYE SCH ×3 (05:36→22:09)
[2020-02-29] MEDS: PROTEIN SUPPLEMENT (PROSTAT) 30 ML LIQUID GT SCH ×3 (05:36→22:09)
[2020-02-29] MEDS: ARGININE/GLUTAMINE/CALCIUM BMB 1 EACH POWD.PACK GT SCH ×2 (05:36→17:18)
[2020-02-29 07:50] VITALS: BP 140/70
[2020-02-29] MEDS: DIGOXIN 125 MCG TABLET GT SCH (08:25)
[2020-02-29] MEDS: levETIRAcetam 500 MG/5 ML LIQUID UDC GT SCH ×2 (08:25→20:52)
[2020-02-29] MEDS: FUROSEMIDE 20 MG TABLET GT SCH (08:26)
[2020-02-29] MEDS: FAMOTIDINE 20 MG TABLET GT SCH ×2 (08:26→20:53)
[2020-02-29] MEDS: NORMAL SALINE NASAL 45 ML BOTTLE NS SCH (08:27)
[2020-02-29] MEDS: THERAHONEY GEL 1.5 OZ TUBE TOP SCH ×2 (08:27→23:01)
[2020-02-29] MEDS: Z GUARD REMEDY PASTE 57 GM TUBE TOP SCH ×2 (08:27→20:53)
[2020-02-29] MEDS: NYSTATIN CREAM 30 GM TUBE TOP SCH ×2 (08:27→23:01)
[2020-02-29] MEDS: SODIUM HYPOCHLORITE 0.125% (QUARTER STRENGTH) 473 ML BOTTLE TP SCH ×2 (08:27→23:01)
[2020-02-29] MEDS: TRIAMCINOLONE ACET 0.1% CREAM 15 GM TUBE TOP SCH (08:27)
[2020-02-29] MEDS: ACETAMINOPHEN 650 MG/20.3 ML LIQUID UDC GT PRN (08:27)
[2020-02-29] MEDS: POTASSIUM CHLORIDE 40 MEQ/30 ML LIQUID UDC GT SCH (08:27)
[2020-02-29] MEDS: HYDROGEN PEROXIDE 3% 118 ML BOTTLE TP SCH ×2 (09:03→21:10)
[2020-02-29] MEDS: GLUCERNA 1.2 1000ML LIQUID GT PRN (17:19)
[2020-02-29 20:09] VITALS: BP 140/66
[2020-02-29] MEDS: ACIDOPHILUS/BULGARICUS CHEW TAB GT SCH (20:52)
[2020-02-29] MEDS: ASCORBIC ACID 500 MG TABLET PO SCH (20:53)
--- NOTE | 2020-02-29 22:57 | NUR ---
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
[2020-02-29] MEDS: TRIAMCINOLONE ACET 0.1% OINT 15 GM TUBE TOP SCH (23:01)
[2020-03-01] MEDS: ACETAMINOPHEN 650 MG/20.3 ML LIQUID UDC GT PRN (04:04)
[2020-03-01] MEDS: ARGININE/GLUTAMINE/CALCIUM BMB 1 EACH POWD.PACK GT SCH ×2 (05:17→17:24)
[2020-03-01] MEDS: POLYVINYL ALCOHOL OPHT DROPS 15 ML BOTTLE EACHEYE SCH ×3 (05:17→22:00)
[2020-03-01] MEDS: PROTEIN SUPPLEMENT (PROSTAT) 30 ML LIQUID GT SCH ×3 (05:17→22:00)
--- NOTE | 2020-03-01 06:12 | NUR ---
No bleeding noted from trach site or when suctioning, tracheostomy tube was replaced yesterday as routinely ordered, no signs of any respiratory distress, 02 sat is 99%, will continue monitor patient.
[2020-03-01 07:39] VITALS: BP 133/75
[2020-03-01] MEDS: HYDROGEN PEROXIDE 3% 118 ML BOTTLE TP SCH ×2 (09:00→21:39)
[2020-03-01] MEDS: FUROSEMIDE 20 MG TABLET GT SCH (09:03)
[2020-03-01] MEDS: DIGOXIN 125 MCG TABLET GT SCH (09:03)
[2020-03-01] MEDS: levETIRAcetam 500 MG/5 ML LIQUID UDC GT SCH ×2 (09:03→21:00)
[2020-03-01] MEDS: FAMOTIDINE 20 MG TABLET GT SCH ×2 (09:03→21:00)
[2020-03-01] MEDS: POTASSIUM CHLORIDE 40 MEQ/30 ML LIQUID UDC GT SCH (09:03)
[2020-03-01] MEDS: NORMAL SALINE NASAL 45 ML BOTTLE NS SCH (09:04)
[2020-03-01] MEDS: NYSTATIN CREAM 30 GM TUBE TOP SCH ×2 (09:09→21:01)
[2020-03-01] MEDS: TRIAMCINOLONE ACET 0.1% OINT 15 GM TUBE TOP SCH ×2 (09:09→21:01)
[2020-03-01] MEDS: THERAHONEY GEL 1.5 OZ TUBE TOP SCH ×2 (09:10→21:01)
[2020-03-01] MEDS: SODIUM HYPOCHLORITE 0.125% (QUARTER STRENGTH) 473 ML BOTTLE TP SCH ×2 (09:10→21:01)
[2020-03-01] MEDS: Z GUARD REMEDY PASTE 57 GM TUBE TOP SCH ×2 (09:10→21:01)
[2020-03-01 20:34] VITALS: BP 130/74
[2020-03-01] MEDS: ACIDOPHILUS/BULGARICUS CHEW TAB GT SCH (21:00)
[2020-03-01] MEDS: ASCORBIC ACID 500 MG TABLET PO SCH (21:01)
[2020-03-02] MEDS: ACETAMINOPHEN 650 MG/20 ML UDC- SA PATIENTS-PAIN ONLY GT PRN (02:00)
[2020-03-02] MEDS: ARGININE/GLUTAMINE/CALCIUM BMB 1 EACH POWD.PACK GT SCH ×2 (05:05→17:24)
[2020-03-02] MEDS: PROTEIN SUPPLEMENT (PROSTAT) 30 ML LIQUID GT SCH ×3 (05:05→21:59)
[2020-03-02] MEDS: POLYVINYL ALCOHOL OPHT DROPS 15 ML BOTTLE EACHEYE SCH ×3 (05:05→21:59)
[2020-03-02 07:48] VITALS: BP 86/37
[2020-03-02] MEDS: levETIRAcetam 500 MG/5 ML LIQUID UDC GT SCH ×2 (08:57→21:59)
[2020-03-02] MEDS: POTASSIUM CHLORIDE 40 MEQ/30 ML LIQUID UDC GT SCH (08:59)
[2020-03-02] MEDS: FUROSEMIDE 20 MG TABLET GT SCH (08:59)
[2020-03-02] MEDS: FAMOTIDINE 20 MG TABLET GT SCH ×2 (08:59→21:59)
[2020-03-02] MEDS: DIGOXIN 125 MCG TABLET GT SCH (08:59)
[2020-03-02] MEDS: HYDROGEN PEROXIDE 3% 118 ML BOTTLE TP SCH ×2 (09:00→19:03)
[2020-03-02] MEDS: NORMAL SALINE NASAL 45 ML BOTTLE NS SCH (09:00)
[2020-03-02] MEDS: TRIAMCINOLONE ACET 0.1% OINT 15 GM TUBE TOP SCH ×2 (09:01→21:59)
[2020-03-02] MEDS: NYSTATIN CREAM 30 GM TUBE TOP SCH ×2 (09:01→21:59)
[2020-03-02] MEDS: Z GUARD REMEDY PASTE 57 GM TUBE TOP SCH ×2 (09:01→21:59)
[2020-03-02] MEDS: THERAHONEY GEL 1.5 OZ TUBE TOP SCH ×2 (09:01→21:59)
[2020-03-02] MEDS: SODIUM HYPOCHLORITE 0.125% (QUARTER STRENGTH) 473 ML BOTTLE TP SCH ×2 (09:01→21:59)
[2020-03-02 13:17] LABS: BASOPHILS % (AUTO) 0.5 % (0.0-2.0); EOSINOPHILS % (AUTO) 0.8 % (0.0-7.0); HEMATOCRIT 36.7 % (31.2-41.9); LYMPHOCYTES # (AUTO) 0.9 K/uL (20.0-40.0); LYMPHOCYTES % (AUTO) 14.7 % (20.5-51.5); MEAN CORPUSCULAR HEMOGLOBIN 30.5 uug (24.7-32.8); MEAN CORPUSCULAR HGB CONC 33 g/dL (32.3-35.6); MEAN CORPUSCULAR VOLUME 93.4 fL (75.5-95.3); MONOCYTES # (AUTO) 0.7 K/uL (2.0-10.0); MONOCYTES % (AUTO) 11.2 % (0.0-11.0); NEUTROPHILS # (AUTO) 4.5 K/uL (1.8-8.9); NEUTROPHILS % (AUTO) 72.8 % (38.5-71.5); PLATELET COUNT (AUTO) 81 K/uL (179-408); RED BLOOD CELL COUNT(AUTO) 3.93 MIL/uL (3.63-4.92); WHITE BLOOD COUNT (AUTO) 6.2 K/uL (3.8-11.8)
[2020-03-02 13:30] LABS: CREATININE 0.7 mg/dL (0.6-1.3); MAGNESIUM 2.5 mg/dL (1.8-2.4); PHOSPHOROUS 3.5 mg/dL (2.5-4.9); POTASSIUM 3.5 mmol/L (3.5-5.1)
--- NOTE | 2020-03-02 15:58 | NUR ---
Daughter Sheeba notified covid19 test will be done today.
[2020-03-02 19:38] LABS: BAND % (MANUAL) 4 % (0-10); LYMPHOCYTES % (MANUAL) 18 % (20-40); MONOCYTES % (MANUAL) 8 % (2-10); NEUTROPHILS % (MANUAL) 70 % (42-75)
[2020-03-02 20:15] VITALS: BP 98/49
[2020-03-02] MEDS: ASCORBIC ACID 500 MG TABLET PO SCH (21:59)
[2020-03-02] MEDS: ACIDOPHILUS/BULGARICUS CHEW TAB GT SCH (21:59)
[2020-03-02 22:35] VITALS: BP 134/73
[2020-03-02] MEDS: GLUCERNA 1.2 1000ML LIQUID GT PRN (22:50)
[2020-03-03] MEDS: PROTEIN SUPPLEMENT (PROSTAT) 30 ML LIQUID GT SCH ×3 (06:16→22:10)
[2020-03-03] MEDS: ARGININE/GLUTAMINE/CALCIUM BMB 1 EACH POWD.PACK GT SCH ×2 (06:16→17:20)
[2020-03-03] MEDS: POLYVINYL ALCOHOL OPHT DROPS 15 ML BOTTLE EACHEYE SCH ×3 (06:16→22:10)
[2020-03-03 07:40] VITALS: BP 141/63
[2020-03-03] MEDS: NYSTATIN CREAM 30 GM TUBE TOP SCH ×2 (08:48→20:42)
[2020-03-03] MEDS: NORMAL SALINE NASAL 45 ML BOTTLE NS SCH (08:48)
[2020-03-03] MEDS: TRIAMCINOLONE ACET 0.1% OINT 15 GM TUBE TOP SCH ×2 (08:48→20:42)
[2020-03-03] MEDS: Z GUARD REMEDY PASTE 57 GM TUBE TOP SCH ×2 (08:48→20:42)
[2020-03-03] MEDS: SODIUM HYPOCHLORITE 0.125% (QUARTER STRENGTH) 473 ML BOTTLE TP SCH ×2 (08:48→20:42)
[2020-03-03] MEDS: DIGOXIN 125 MCG TABLET GT SCH (08:48)
[2020-03-03] MEDS: THERAHONEY GEL 1.5 OZ TUBE TOP SCH ×2 (08:48→20:42)
[2020-03-03] MEDS: levETIRAcetam 500 MG/5 ML LIQUID UDC GT SCH ×2 (08:48→20:41)
[2020-03-03] MEDS: FAMOTIDINE 20 MG TABLET GT SCH ×2 (08:48→20:41)
[2020-03-03] MEDS: POTASSIUM CHLORIDE 40 MEQ/30 ML LIQUID UDC GT SCH (08:48)
[2020-03-03] MEDS: FUROSEMIDE 20 MG TABLET GT SCH (08:48)
[2020-03-03] MEDS: HYDROGEN PEROXIDE 3% 118 ML BOTTLE TP SCH ×2 (09:38→21:01)
[2020-03-03 20:18] VITALS: BP 127/63
[2020-03-03] MEDS: ACIDOPHILUS/BULGARICUS CHEW TAB GT SCH (20:40)
[2020-03-03] MEDS: ASCORBIC ACID 500 MG TABLET PO SCH (20:41)
[2020-03-04] MEDS: GLUCERNA 1.2 1000ML LIQUID GT PRN (01:02)
[2020-03-04] MEDS: POLYVINYL ALCOHOL OPHT DROPS 15 ML BOTTLE EACHEYE SCH ×3 (05:30→21:52)
[2020-03-04] MEDS: ARGININE/GLUTAMINE/CALCIUM BMB 1 EACH POWD.PACK GT SCH ×2 (05:30→17:35)
[2020-03-04] MEDS: PROTEIN SUPPLEMENT (PROSTAT) 30 ML LIQUID GT SCH ×3 (05:30→21:52)
[2020-03-04 07:44] VITALS: BP 140/70
[2020-03-04] MEDS: HYDROGEN PEROXIDE 3% 118 ML BOTTLE TP SCH ×2 (08:05→21:13)
[2020-03-04] MEDS: SODIUM HYPOCHLORITE 0.125% (QUARTER STRENGTH) 473 ML BOTTLE TP SCH ×2 (09:33→20:41)
[2020-03-04] MEDS: POTASSIUM CHLORIDE 40 MEQ/30 ML LIQUID UDC GT SCH (09:33)
[2020-03-04] MEDS: NORMAL SALINE NASAL 45 ML BOTTLE NS SCH (09:33)
[2020-03-04] MEDS: TRIAMCINOLONE ACET 0.1% OINT 15 GM TUBE TOP SCH ×2 (09:33→20:41)
[2020-03-04] MEDS: FUROSEMIDE 20 MG TABLET GT SCH (09:33)
[2020-03-04] MEDS: levETIRAcetam 500 MG/5 ML LIQUID UDC GT SCH ×2 (09:33→20:40)
[2020-03-04] MEDS: Z GUARD REMEDY PASTE 57 GM TUBE TOP SCH ×2 (09:33→20:41)
[2020-03-04] MEDS: DIGOXIN 125 MCG TABLET GT SCH (09:33)
[2020-03-04] MEDS: NYSTATIN CREAM 30 GM TUBE TOP SCH ×2 (09:33→20:41)
[2020-03-04] MEDS: THERAHONEY GEL 1.5 OZ TUBE TOP SCH ×2 (09:33→20:41)
[2020-03-04] MEDS: FAMOTIDINE 20 MG TABLET GT SCH ×2 (09:33→20:40)
[2020-03-04 20:00] VITALS: BP 140/63
[2020-03-04] MEDS: ASCORBIC ACID 500 MG TABLET PO SCH (20:40)
[2020-03-04] MEDS: ACIDOPHILUS/BULGARICUS CHEW TAB GT SCH (20:40)
[2020-03-05] MEDS: GLUCERNA 1.2 1000ML LIQUID GT PRN (03:56)
[2020-03-05] MEDS: ARGININE/GLUTAMINE/CALCIUM BMB 1 EACH POWD.PACK GT SCH ×2 (06:06→17:37)
[2020-03-05] MEDS: POLYVINYL ALCOHOL OPHT DROPS 15 ML BOTTLE EACHEYE SCH ×3 (06:06→21:53)
[2020-03-05] MEDS: PROTEIN SUPPLEMENT (PROSTAT) 30 ML LIQUID GT SCH ×3 (06:06→21:53)
[2020-03-05] MEDS: HYDROGEN PEROXIDE 3% 118 ML BOTTLE TP SCH ×2 (07:35→20:56)
[2020-03-05 07:42] VITALS: BP 150/69
[2020-03-05] MEDS: ACETAMINOPHEN 650 MG/20.3 ML LIQUID UDC GT PRN (08:54)
[2020-03-05] MEDS: NORMAL SALINE NASAL 45 ML BOTTLE NS SCH (08:54)
[2020-03-05] MEDS: levETIRAcetam 500 MG/5 ML LIQUID UDC GT SCH ×2 (08:54→20:28)
[2020-03-05] MEDS: POTASSIUM CHLORIDE 40 MEQ/30 ML LIQUID UDC GT SCH (08:54)
[2020-03-05] MEDS: FUROSEMIDE 20 MG TABLET GT SCH (08:54)
[2020-03-05] MEDS: DIGOXIN 125 MCG TABLET GT SCH (08:54)
[2020-03-05] MEDS: FAMOTIDINE 20 MG TABLET GT SCH ×2 (08:54→20:28)
[2020-03-05] MEDS: NYSTATIN CREAM 30 GM TUBE TOP SCH ×2 (09:55→20:29)
[2020-03-05] MEDS: Z GUARD REMEDY PASTE 57 GM TUBE TOP SCH ×2 (09:55→20:29)
[2020-03-05] MEDS: TRIAMCINOLONE ACET 0.1% OINT 15 GM TUBE TOP SCH ×2 (09:55→20:29)
[2020-03-05] MEDS: THERAHONEY GEL 1.5 OZ TUBE TOP SCH ×2 (09:55→20:29)
[2020-03-05] MEDS: SODIUM HYPOCHLORITE 0.125% (QUARTER STRENGTH) 473 ML BOTTLE TP SCH ×2 (09:55→20:29)
--- NOTE | 2020-03-05 14:50 | NUR ---
video chat done with patient's family.
--- NOTE | 2020-03-05 19:14 | NUR ---
SEEN AND EXAMINED BY DR. SILVA AND WITH NNO.
[2020-03-05 20:00] VITALS: BP 101/62
[2020-03-05] MEDS: ACIDOPHILUS/BULGARICUS CHEW TAB GT SCH (20:27)
[2020-03-05] MEDS: ASCORBIC ACID 500 MG TABLET PO SCH (20:28)
[2020-03-05 22:00] VITALS: BP 101/62
[2020-03-06] MEDS: PROTEIN SUPPLEMENT (PROSTAT) 30 ML LIQUID GT SCH ×3 (05:31→21:21)
[2020-03-06] MEDS: POLYVINYL ALCOHOL OPHT DROPS 15 ML BOTTLE EACHEYE SCH ×3 (05:31→21:21)
[2020-03-06] MEDS: ARGININE/GLUTAMINE/CALCIUM BMB 1 EACH POWD.PACK GT SCH ×2 (05:31→17:05)
[2020-03-06 07:48] VITALS: BP 145/40
[2020-03-06] MEDS: levETIRAcetam 500 MG/5 ML LIQUID UDC GT SCH ×2 (09:03→20:56)
[2020-03-06] MEDS: POTASSIUM CHLORIDE 40 MEQ/30 ML LIQUID UDC GT SCH (09:04)
[2020-03-06] MEDS: TRIAMCINOLONE ACET 0.1% OINT 15 GM TUBE TOP SCH ×2 (09:04→20:56)
[2020-03-06] MEDS: NYSTATIN CREAM 30 GM TUBE TOP SCH ×2 (09:04→20:56)
[2020-03-06] MEDS: NORMAL SALINE NASAL 45 ML BOTTLE NS SCH (09:04)
[2020-03-06] MEDS: DIGOXIN 125 MCG TABLET GT SCH (09:04)
[2020-03-06] MEDS: FAMOTIDINE 20 MG TABLET GT SCH ×2 (09:04→20:56)
[2020-03-06] MEDS: Z GUARD REMEDY PASTE 57 GM TUBE TOP SCH ×2 (09:04→20:56)
[2020-03-06] MEDS: FUROSEMIDE 20 MG TABLET GT SCH (09:04)
[2020-03-06] MEDS: SODIUM HYPOCHLORITE 0.125% (QUARTER STRENGTH) 473 ML BOTTLE TP SCH ×2 (09:04→20:57)
[2020-03-06] MEDS: THERAHONEY GEL 1.5 OZ TUBE TOP SCH ×2 (09:04→20:57)
[2020-03-06] MEDS: HYDROGEN PEROXIDE 3% 118 ML BOTTLE TP SCH ×2 (09:25→21:29)
--- NOTE | 2020-03-06 10:25 | NUR ---
PT. NEGATIVE FOR LATEST COVID 19 TEST PER DAVID FROM LAB(SEE RECORD) .PT'S DTR. HARLEY AWARE .
[2020-03-06 19:32] VITALS: BP 127/44
[2020-03-06] MEDS: ACIDOPHILUS/BULGARICUS CHEW TAB GT SCH (20:56)
[2020-03-06] MEDS: ASCORBIC ACID 500 MG TABLET PO SCH (20:56)
[2020-03-07] MEDS: ARGININE/GLUTAMINE/CALCIUM BMB 1 EACH POWD.PACK GT SCH ×2 (05:32→17:15)
[2020-03-07] MEDS: POLYVINYL ALCOHOL OPHT DROPS 15 ML BOTTLE EACHEYE SCH ×3 (05:32→21:18)
[2020-03-07] MEDS: PROTEIN SUPPLEMENT (PROSTAT) 30 ML LIQUID GT SCH ×3 (05:32→21:18)
[2020-03-07 07:47] VITALS: BP 145/75
[2020-03-07] MEDS: Z GUARD REMEDY PASTE 57 GM TUBE TOP SCH ×2 (08:00→20:39)
[2020-03-07] MEDS: FUROSEMIDE 20 MG TABLET GT SCH (08:00)
[2020-03-07] MEDS: NORMAL SALINE NASAL 45 ML BOTTLE NS SCH (08:00)
[2020-03-07] MEDS: DIGOXIN 125 MCG TABLET GT SCH (08:00)
[2020-03-07] MEDS: NYSTATIN CREAM 30 GM TUBE TOP SCH ×2 (08:00→20:39)
[2020-03-07] MEDS: levETIRAcetam 500 MG/5 ML LIQUID UDC GT SCH ×2 (08:00→20:39)
[2020-03-07] MEDS: SODIUM HYPOCHLORITE 0.125% (QUARTER STRENGTH) 473 ML BOTTLE TP SCH ×2 (08:00→20:39)
[2020-03-07] MEDS: TRIAMCINOLONE ACET 0.1% OINT 15 GM TUBE TOP SCH ×2 (08:00→20:39)
[2020-03-07] MEDS: THERAHONEY GEL 1.5 OZ TUBE TOP SCH ×2 (08:00→20:39)
[2020-03-07] MEDS: FAMOTIDINE 20 MG TABLET GT SCH ×2 (08:00→20:39)
[2020-03-07] MEDS: POTASSIUM CHLORIDE 40 MEQ/30 ML LIQUID UDC GT SCH (08:00)
[2020-03-07] MEDS: HYDROGEN PEROXIDE 3% 118 ML BOTTLE TP SCH ×2 (09:10→21:33)
[2020-03-07] MEDS: GLUCERNA 1.2 1000ML LIQUID GT PRN (11:21)
[2020-03-07 19:16] VITALS: BP 126/49
--- NOTE | 2020-03-07 20:12 | NUR ---
Received pt on HT-50 ventilator with the following settings of AC-12, Vt-550, PEEP+5, FIO2-30%, trached with Shiley#6 DCT trach, which is in the place and secure. No distress noted. Airway care done, pt responded to physical stimuli. Noticed small amount of dry blood on left side of the patients mouth, charger operator Damion notified. HME, Sx Quispe and trach tube zavala changed. Resus. bag and back up trach at bedside. Vent and alarms checked and reset.
[2020-03-07] MEDS: ACIDOPHILUS/BULGARICUS CHEW TAB GT SCH (20:39)
[2020-03-07] MEDS: ASCORBIC ACID 500 MG TABLET PO SCH (20:39)
--- NOTE | 2020-03-07 21:57 | NUR ---
Patient is afebrile, noted with minimal bleeding coming from left side of the lips, on assessment skin is irritated, cleansed affected area, initiated in- house treatment, handled very gently, will continue monitor.
[2020-03-07] MEDS: NEOMY/BACITRAC/POLYMI OINT 28.35 GM TUBE TOP SCH (22:19)
[2020-03-08] MEDS: PROTEIN SUPPLEMENT (PROSTAT) 30 ML LIQUID GT SCH ×3 (05:46→21:16)
[2020-03-08] MEDS: POLYVINYL ALCOHOL OPHT DROPS 15 ML BOTTLE EACHEYE SCH ×3 (05:46→21:16)
[2020-03-08] MEDS: ARGININE/GLUTAMINE/CALCIUM BMB 1 EACH POWD.PACK GT SCH ×2 (05:46→17:42)
[2020-03-08 07:50] VITALS: BP 128/62
[2020-03-08] MEDS: HYDROGEN PEROXIDE 3% 118 ML BOTTLE TP SCH ×2 (08:04→21:15)
[2020-03-08] MEDS: FAMOTIDINE 20 MG TABLET GT SCH ×2 (09:09→20:56)
[2020-03-08] MEDS: TRIAMCINOLONE ACET 0.1% OINT 15 GM TUBE TOP SCH ×2 (09:09→20:56)
[2020-03-08] MEDS: levETIRAcetam 500 MG/5 ML LIQUID UDC GT SCH ×2 (09:09→20:56)
[2020-03-08] MEDS: POTASSIUM CHLORIDE 40 MEQ/30 ML LIQUID UDC GT SCH (09:09)
[2020-03-08] MEDS: Z GUARD REMEDY PASTE 57 GM TUBE TOP SCH ×2 (09:09→20:56)
[2020-03-08] MEDS: NYSTATIN CREAM 30 GM TUBE TOP SCH ×2 (09:09→20:56)
[2020-03-08] MEDS: FUROSEMIDE 20 MG TABLET GT SCH (09:09)
[2020-03-08] MEDS: DIGOXIN 125 MCG TABLET GT SCH (09:09)
[2020-03-08] MEDS: THERAHONEY GEL 1.5 OZ TUBE TOP SCH ×2 (09:09→20:56)
[2020-03-08] MEDS: NORMAL SALINE NASAL 45 ML BOTTLE NS SCH (09:09)
[2020-03-08] MEDS: NEOMY/BACITRAC/POLYMI OINT 28.35 GM TUBE TOP SCH ×2 (09:10→20:56)
[2020-03-08] MEDS: SODIUM HYPOCHLORITE 0.125% (QUARTER STRENGTH) 473 ML BOTTLE TP SCH ×2 (09:10→20:56)
[2020-03-08] MEDS: GLUCERNA 1.2 1000ML LIQUID GT PRN (16:46)
[2020-03-08 20:18] VITALS: BP 126/62
[2020-03-08] MEDS: ACIDOPHILUS/BULGARICUS CHEW TAB GT SCH (20:56)
[2020-03-08] MEDS: ASCORBIC ACID 500 MG TABLET PO SCH (20:56)
[2020-03-09] MEDS: PROTEIN SUPPLEMENT (PROSTAT) 30 ML LIQUID GT SCH ×3 (05:58→21:23)
[2020-03-09] MEDS: ARGININE/GLUTAMINE/CALCIUM BMB 1 EACH POWD.PACK GT SCH ×2 (05:58→17:34)
[2020-03-09] MEDS: POLYVINYL ALCOHOL OPHT DROPS 15 ML BOTTLE EACHEYE SCH ×3 (05:58→21:23)
[2020-03-09] MEDS: HYDROGEN PEROXIDE 3% 118 ML BOTTLE TP SCH ×2 (07:29→19:35)
[2020-03-09 07:38] VITALS: BP 131/65
[2020-03-09] MEDS: POTASSIUM CHLORIDE 40 MEQ/30 ML LIQUID UDC GT SCH (08:38)
[2020-03-09] MEDS: NORMAL SALINE NASAL 45 ML BOTTLE NS SCH (08:38)
[2020-03-09] MEDS: FUROSEMIDE 20 MG TABLET GT SCH (08:38)
[2020-03-09] MEDS: DIGOXIN 125 MCG TABLET GT SCH (08:38)
[2020-03-09] MEDS: levETIRAcetam 500 MG/5 ML LIQUID UDC GT SCH ×2 (08:38→20:35)
[2020-03-09] MEDS: FAMOTIDINE 20 MG TABLET GT SCH ×2 (08:38→20:35)
[2020-03-09] MEDS: TRIAMCINOLONE ACET 0.1% OINT 15 GM TUBE TOP SCH ×2 (08:39→20:35)
[2020-03-09] MEDS: NEOMY/BACITRAC/POLYMI OINT 28.35 GM TUBE TOP SCH ×2 (08:39→21:23)
[2020-03-09] MEDS: SODIUM HYPOCHLORITE 0.125% (QUARTER STRENGTH) 473 ML BOTTLE TP SCH ×2 (08:39→20:36)
[2020-03-09] MEDS: THERAHONEY GEL 1.5 OZ TUBE TOP SCH ×2 (08:39→20:35)
[2020-03-09] MEDS: NYSTATIN CREAM 30 GM TUBE TOP SCH ×2 (08:39→20:35)
[2020-03-09] MEDS: Z GUARD REMEDY PASTE 57 GM TUBE TOP SCH ×2 (08:39→20:35)
[2020-03-09] MEDS: GLUCERNA 1.2 1000ML LIQUID GT PRN (14:20)
[2020-03-09 20:11] VITALS: BP 106/60
[2020-03-09] MEDS: ASCORBIC ACID 500 MG TABLET PO SCH (20:35)
[2020-03-09] MEDS: ACIDOPHILUS/BULGARICUS CHEW TAB GT SCH (20:35)
[2020-03-10] MEDS: PROTEIN SUPPLEMENT (PROSTAT) 30 ML LIQUID GT SCH ×3 (05:28→22:16)
[2020-03-10] MEDS: ARGININE/GLUTAMINE/CALCIUM BMB 1 EACH POWD.PACK GT SCH ×2 (05:28→18:05)
[2020-03-10] MEDS: POLYVINYL ALCOHOL OPHT DROPS 15 ML BOTTLE EACHEYE SCH ×3 (05:28→22:16)
[2020-03-10 07:45] VITALS: BP 115/53
[2020-03-10] MEDS: levETIRAcetam 500 MG/5 ML LIQUID UDC GT SCH ×2 (08:36→20:27)
[2020-03-10] MEDS: FAMOTIDINE 20 MG TABLET GT SCH ×2 (08:37→20:28)
[2020-03-10] MEDS: FUROSEMIDE 20 MG TABLET GT SCH (08:37)
[2020-03-10] MEDS: DIGOXIN 125 MCG TABLET GT SCH (08:37)
[2020-03-10] MEDS: POTASSIUM CHLORIDE 40 MEQ/30 ML LIQUID UDC GT SCH (08:39)
[2020-03-10] MEDS: NYSTATIN CREAM 30 GM TUBE TOP SCH ×2 (08:39→20:29)
[2020-03-10] MEDS: NORMAL SALINE NASAL 45 ML BOTTLE NS SCH (08:39)
[2020-03-10] MEDS: TRIAMCINOLONE ACET 0.1% OINT 15 GM TUBE TOP SCH ×2 (08:39→20:29)
[2020-03-10] MEDS: Z GUARD REMEDY PASTE 57 GM TUBE TOP SCH ×2 (08:39→20:29)
[2020-03-10] MEDS: NEOMY/BACITRAC/POLYMI OINT 28.35 GM TUBE TOP SCH ×2 (08:40→20:29)
[2020-03-10] MEDS: THERAHONEY GEL 1.5 OZ TUBE TOP SCH ×2 (08:40→20:29)
[2020-03-10] MEDS: SODIUM HYPOCHLORITE 0.125% (QUARTER STRENGTH) 473 ML BOTTLE TP SCH ×2 (08:40→20:29)
[2020-03-10] MEDS: HYDROGEN PEROXIDE 3% 118 ML BOTTLE TP SCH ×3 (09:49→21:01)
--- NOTE | 2020-03-10 20:00 | NUR ---
SEEN AND EXAMINED BY DR Cedeno,NO NEW ORDERS.
[2020-03-10 20:04] VITALS: BP 119/58
[2020-03-10] MEDS: ACIDOPHILUS/BULGARICUS CHEW TAB GT SCH (20:27)
[2020-03-10] MEDS: ASCORBIC ACID 500 MG TABLET PO SCH (20:29)
[2020-03-10] MEDS: ACETAMINOPHEN 650 MG/20.3 ML LIQUID UDC GT PRN (20:30)
[2020-03-11] MEDS: PROTEIN SUPPLEMENT (PROSTAT) 30 ML LIQUID GT SCH ×3 (05:33→22:42)
[2020-03-11] MEDS: ARGININE/GLUTAMINE/CALCIUM BMB 1 EACH POWD.PACK GT SCH ×2 (05:33→18:07)
[2020-03-11] MEDS: POLYVINYL ALCOHOL OPHT DROPS 15 ML BOTTLE EACHEYE SCH ×3 (05:33→22:42)
[2020-03-11 07:55] VITALS: BP 145/57
[2020-03-11] MEDS: HYDROGEN PEROXIDE 3% 118 ML BOTTLE TP SCH ×2 (09:00→21:29)
[2020-03-11] MEDS: levETIRAcetam 500 MG/5 ML LIQUID UDC GT SCH ×2 (09:39→20:41)
[2020-03-11] MEDS: FUROSEMIDE 20 MG TABLET GT SCH (09:40)
[2020-03-11] MEDS: DIGOXIN 125 MCG TABLET GT SCH (09:40)
[2020-03-11] MEDS: POTASSIUM CHLORIDE 40 MEQ/30 ML LIQUID UDC GT SCH (09:41)
[2020-03-11] MEDS: NORMAL SALINE NASAL 45 ML BOTTLE NS SCH (09:41)
[2020-03-11] MEDS: TRIAMCINOLONE ACET 0.1% OINT 15 GM TUBE TOP SCH ×2 (09:41→20:42)
[2020-03-11] MEDS: FAMOTIDINE 20 MG TABLET GT SCH ×2 (09:41→20:41)
[2020-03-11] MEDS: NYSTATIN CREAM 30 GM TUBE TOP SCH ×2 (09:41→20:42)
[2020-03-11] MEDS: Z GUARD REMEDY PASTE 57 GM TUBE TOP SCH ×2 (09:41→20:42)
[2020-03-11] MEDS: SODIUM HYPOCHLORITE 0.125% (QUARTER STRENGTH) 473 ML BOTTLE TP SCH ×2 (09:42→20:42)
[2020-03-11] MEDS: NEOMY/BACITRAC/POLYMI OINT 28.35 GM TUBE TOP SCH ×2 (09:42→20:42)
[2020-03-11] MEDS: THERAHONEY GEL 1.5 OZ TUBE TOP SCH ×2 (09:42→20:42)
--- NOTE | 2020-03-11 18:00 | NUR ---
Seen and examined by Rosi Miller Np,she request to cover the sacral wound with a smaller dressing,and not to cover the surrounding tissue,due to skin irritation.
[2020-03-11 20:10] VITALS: BP 125/51
[2020-03-11] MEDS: ACIDOPHILUS/BULGARICUS CHEW TAB GT SCH (20:41)
[2020-03-11] MEDS: ASCORBIC ACID 500 MG TABLET PO SCH (20:42)
[2020-03-12] MEDS: ARGININE/GLUTAMINE/CALCIUM BMB 1 EACH POWD.PACK GT SCH ×2 (05:40→17:17)
[2020-03-12] MEDS: PROTEIN SUPPLEMENT (PROSTAT) 30 ML LIQUID GT SCH ×3 (05:40→22:18)
[2020-03-12] MEDS: POLYVINYL ALCOHOL OPHT DROPS 15 ML BOTTLE EACHEYE SCH ×3 (05:40→22:17)
[2020-03-12 07:48] VITALS: BP 123/61
[2020-03-12] MEDS: POTASSIUM CHLORIDE 40 MEQ/30 ML LIQUID UDC GT SCH (08:15)
[2020-03-12] MEDS: FUROSEMIDE 20 MG TABLET GT SCH (08:15)
[2020-03-12] MEDS: NORMAL SALINE NASAL 45 ML BOTTLE NS SCH (08:15)
[2020-03-12] MEDS: levETIRAcetam 500 MG/5 ML LIQUID UDC GT SCH ×2 (08:15→21:00)
[2020-03-12] MEDS: NYSTATIN CREAM 30 GM TUBE TOP SCH ×2 (08:15→21:00)
[2020-03-12] MEDS: FAMOTIDINE 20 MG TABLET GT SCH ×2 (08:15→21:00)
[2020-03-12] MEDS: DIGOXIN 125 MCG TABLET GT SCH (08:15)
[2020-03-12] MEDS: TRIAMCINOLONE ACET 0.1% OINT 15 GM TUBE TOP SCH ×2 (08:15→21:00)
[2020-03-12] MEDS: NEOMY/BACITRAC/POLYMI OINT 28.35 GM TUBE TOP SCH ×2 (08:16→21:00)
[2020-03-12] MEDS: Z GUARD REMEDY PASTE 57 GM TUBE TOP SCH ×2 (08:16→21:00)
[2020-03-12] MEDS: THERAHONEY GEL 1.5 OZ TUBE TOP SCH ×2 (08:16→21:00)
[2020-03-12] MEDS: SODIUM HYPOCHLORITE 0.125% (QUARTER STRENGTH) 473 ML BOTTLE TP SCH ×2 (08:16→21:00)
[2020-03-12] MEDS: HYDROGEN PEROXIDE 3% 118 ML BOTTLE TP SCH ×2 (09:00→21:15)
[2020-03-12 20:45] VITALS: BP 150/68
[2020-03-12] MEDS: ACIDOPHILUS/BULGARICUS CHEW TAB GT SCH (21:00)
[2020-03-12] MEDS: ASCORBIC ACID 500 MG TABLET PO SCH (21:00)
[2020-03-13] MEDS: GLUCERNA 1.2 1000ML LIQUID GT PRN
[2020-03-13] MEDS: POLYVINYL ALCOHOL OPHT DROPS 15 ML BOTTLE EACHEYE SCH ×3 (05:48→22:00)
[2020-03-13] MEDS: PROTEIN SUPPLEMENT (PROSTAT) 30 ML LIQUID GT SCH ×3 (05:48→22:00)
[2020-03-13] MEDS: ARGININE/GLUTAMINE/CALCIUM BMB 1 EACH POWD.PACK GT SCH ×2 (05:48→17:18)
[2020-03-13 08:04] VITALS: BP 143/72
[2020-03-13] MEDS: levETIRAcetam 500 MG/5 ML LIQUID UDC GT SCH ×2 (09:19→21:00)
[2020-03-13] MEDS: Z GUARD REMEDY PASTE 57 GM TUBE TOP SCH ×2 (09:20→21:00)
[2020-03-13] MEDS: THERAHONEY GEL 1.5 OZ TUBE TOP SCH ×2 (09:20→21:00)
[2020-03-13] MEDS: POTASSIUM CHLORIDE 40 MEQ/30 ML LIQUID UDC GT SCH (09:20)
[2020-03-13] MEDS: FUROSEMIDE 20 MG TABLET GT SCH (09:20)
[2020-03-13] MEDS: FAMOTIDINE 20 MG TABLET GT SCH ×2 (09:20→21:00)
[2020-03-13] MEDS: DIGOXIN 125 MCG TABLET GT SCH (09:20)
[2020-03-13] MEDS: NORMAL SALINE NASAL 45 ML BOTTLE NS SCH (09:20)
[2020-03-13] MEDS: NYSTATIN CREAM 30 GM TUBE TOP SCH ×2 (09:20→21:00)
[2020-03-13] MEDS: TRIAMCINOLONE ACET 0.1% CREAM 15 GM TUBE TOP SCH ×2 (09:20→21:00)
[2020-03-13] MEDS: NEOMY/BACITRAC/POLYMI OINT 28.35 GM TUBE TOP SCH ×2 (09:21→21:00)
[2020-03-13] MEDS: SODIUM HYPOCHLORITE 0.125% (QUARTER STRENGTH) 473 ML BOTTLE TP SCH ×2 (09:21→21:00)
[2020-03-13] MEDS: HYDROGEN PEROXIDE 3% 118 ML BOTTLE TP SCH ×2 (10:00→21:24)
--- NOTE | 2020-03-13 11:02 | NUR ---
Daughter Sheeba notified annual ppd to be done, daughter in agreement with test.
[2020-03-13] MEDS: ACIDOPHILUS/BULGARICUS CHEW TAB GT SCH (21:00)
[2020-03-13] MEDS: ASCORBIC ACID 500 MG TABLET PO SCH (21:00)
[2020-03-13 21:38] VITALS: BP 119/68
[2020-03-14] MEDS: POLYVINYL ALCOHOL OPHT DROPS 15 ML BOTTLE EACHEYE SCH ×3 (05:26→22:06)
[2020-03-14] MEDS: PROTEIN SUPPLEMENT (PROSTAT) 30 ML LIQUID GT SCH ×3 (05:26→22:06)
[2020-03-14] MEDS: ARGININE/GLUTAMINE/CALCIUM BMB 1 EACH POWD.PACK GT SCH ×2 (05:26→17:37)
[2020-03-14] MEDS: GLUCERNA 1.2 1000ML LIQUID GT PRN (05:27)
[2020-03-14 07:42] VITALS: BP 130/70
[2020-03-14] MEDS: levETIRAcetam 500 MG/5 ML LIQUID UDC GT SCH ×2 (08:36→20:10)
[2020-03-14] MEDS: DIGOXIN 125 MCG TABLET GT SCH (08:36)
[2020-03-14] MEDS: FUROSEMIDE 20 MG TABLET GT SCH (08:36)
[2020-03-14] MEDS: FAMOTIDINE 20 MG TABLET GT SCH ×2 (08:38→20:10)
[2020-03-14] MEDS: NORMAL SALINE NASAL 45 ML BOTTLE NS SCH (08:38)
[2020-03-14] MEDS: POTASSIUM CHLORIDE 40 MEQ/30 ML LIQUID UDC GT SCH (08:38)
[2020-03-14] MEDS: NEOMY/BACITRAC/POLYMI OINT 28.35 GM TUBE TOP SCH ×2 (08:39→20:11)
[2020-03-14] MEDS: ACETAMINOPHEN 650 MG/20.3 ML LIQUID UDC GT PRN (08:40)
[2020-03-14] MEDS: HYDROGEN PEROXIDE 3% 118 ML BOTTLE TP SCH ×2 (09:49→21:33)
[2020-03-14] MEDS: Z GUARD REMEDY PASTE 57 GM TUBE TOP SCH ×2 (09:55→20:11)
[2020-03-14] MEDS: NYSTATIN CREAM 30 GM TUBE TOP SCH ×2 (09:55→20:11)
[2020-03-14] MEDS: THERAHONEY GEL 1.5 OZ TUBE TOP SCH ×2 (09:55→20:11)
[2020-03-14] MEDS: TRIAMCINOLONE ACET 0.1% CREAM 15 GM TUBE TOP SCH ×2 (09:55→20:11)
[2020-03-14] MEDS: SODIUM HYPOCHLORITE 0.125% (QUARTER STRENGTH) 473 ML BOTTLE TP SCH ×2 (09:56→20:11)
[2020-03-14 19:27] VITALS: BP 146/63
[2020-03-14] MEDS: ASCORBIC ACID 500 MG TABLET PO SCH (20:10)
[2020-03-14] MEDS: ACIDOPHILUS/BULGARICUS CHEW TAB GT SCH (20:10)
--- NOTE | 2020-03-14 20:14 | NUR ---
Pt received on HT-50 ventilator with the following settings of AC-12, Vt-550, PEEP+5, FIO2-30%, trached with Shiley#6 DCT trach, which is in the place and secure. No respiratory distress noted. Airway care done, pt responded to physical stimuli. HME, Sx Quispe and trach tube zavala changed. Resus. bag and back up trach at bedside. Changed oxygen cheese blender. Vent and alarms checked and reset.
[2020-03-15] MEDS: POLYVINYL ALCOHOL OPHT DROPS 15 ML BOTTLE EACHEYE SCH ×3 (05:22→22:02)
[2020-03-15] MEDS: PROTEIN SUPPLEMENT (PROSTAT) 30 ML LIQUID GT SCH ×3 (05:22→22:02)
[2020-03-15] MEDS: ARGININE/GLUTAMINE/CALCIUM BMB 1 EACH POWD.PACK GT SCH ×2 (05:22→17:35)
[2020-03-15 07:42] VITALS: BP 128/53
[2020-03-15 07:58] LABS: BASOPHILS % (AUTO) 0.5 % (0.0-2.0); EOSINOPHILS # (AUTO) 0.2 K/uL (0.0-0.7); EOSINOPHILS % (AUTO) 3.8 % (0.0-7.0); HEMATOCRIT 36.2 % (31.2-41.9); HEMOGLOBIN 12.1 g/dL (10.9-14.3); LYMPHOCYTES # (AUTO) 1.3 K/uL (20.0-40.0); LYMPHOCYTES % (AUTO) 28.3 % (20.5-51.5); MEAN CORPUSCULAR HGB CONC 33 g/dL (32.3-35.6); MEAN CORPUSCULAR VOLUME 92.8 fL (75.5-95.3); MONOCYTES # (AUTO) 0.6 K/uL (2.0-10.0); MONOCYTES % (AUTO) 12.4 % (0.0-11.0); NEUTROPHILS # (AUTO) 2.6 K/uL (1.8-8.9); PLATELET COUNT (AUTO) 114 K/uL (179-408); RED BLOOD CELL COUNT(AUTO) 3.91 MIL/uL (3.63-4.92); WHITE BLOOD COUNT (AUTO) 4.7 K/uL (3.8-11.8)
[2020-03-15 08:28] LABS: CREATININE 0.6 mg/dL (0.6-1.3); MAGNESIUM 2.3 mg/dL (1.8-2.4); POTASSIUM 4.1 mmol/L (3.5-5.1)
[2020-03-15] MEDS: FAMOTIDINE 20 MG TABLET GT SCH ×2 (08:50→20:44)
[2020-03-15] MEDS: FUROSEMIDE 20 MG TABLET GT SCH (08:50)
[2020-03-15] MEDS: DIGOXIN 125 MCG TABLET GT SCH (08:50)
[2020-03-15] MEDS: levETIRAcetam 500 MG/5 ML LIQUID UDC GT SCH ×2 (08:50→20:44)
[2020-03-15] MEDS: POTASSIUM CHLORIDE 40 MEQ/30 ML LIQUID UDC GT SCH (08:50)
[2020-03-15] MEDS: NORMAL SALINE NASAL 45 ML BOTTLE NS SCH (08:51)
[2020-03-15] MEDS: THERAHONEY GEL 1.5 OZ TUBE TOP SCH ×2 (08:51→20:44)
[2020-03-15] MEDS: SODIUM HYPOCHLORITE 0.125% (QUARTER STRENGTH) 473 ML BOTTLE TP SCH ×2 (08:51→20:46)
[2020-03-15] MEDS: Z GUARD REMEDY PASTE 57 GM TUBE TOP SCH ×2 (08:51→20:44)
[2020-03-15] MEDS: TRIAMCINOLONE ACET 0.1% CREAM 15 GM TUBE TOP SCH ×2 (08:51→20:44)
[2020-03-15] MEDS: NEOMY/BACITRAC/POLYMI OINT 28.35 GM TUBE TOP SCH ×2 (08:51→20:45)
[2020-03-15] MEDS: NYSTATIN CREAM 30 GM TUBE TOP SCH ×2 (08:51→20:44)
[2020-03-15] MEDS: GLUCERNA 1.2 1000ML LIQUID GT PRN (08:51)
[2020-03-15] MEDS: HYDROGEN PEROXIDE 3% 118 ML BOTTLE TP SCH ×2 (09:56→20:00)
[2020-03-15] MEDS: ASCORBIC ACID 500 MG TABLET PO SCH (20:44)
[2020-03-15] MEDS: ACIDOPHILUS/BULGARICUS CHEW TAB GT SCH (20:44)
[2020-03-15 22:25] VITALS: BP 135/72
[2020-03-16] MEDS: GLUCERNA 1.2 1000ML LIQUID GT PRN (03:56)
[2020-03-16] MEDS: ARGININE/GLUTAMINE/CALCIUM BMB 1 EACH POWD.PACK GT SCH ×2 (05:15→17:10)
[2020-03-16] MEDS: PROTEIN SUPPLEMENT (PROSTAT) 30 ML LIQUID GT SCH ×3 (05:15→21:23)
[2020-03-16] MEDS: POLYVINYL ALCOHOL OPHT DROPS 15 ML BOTTLE EACHEYE SCH ×3 (05:15→21:23)
[2020-03-16 07:39] VITALS: BP 141/66
[2020-03-16] MEDS: FUROSEMIDE 20 MG TABLET GT SCH (08:58)
[2020-03-16] MEDS: levETIRAcetam 500 MG/5 ML LIQUID UDC GT SCH ×2 (08:58→20:27)
[2020-03-16] MEDS: POTASSIUM CHLORIDE 40 MEQ/30 ML LIQUID UDC GT SCH (08:58)
[2020-03-16] MEDS: FAMOTIDINE 20 MG TABLET GT SCH ×2 (08:58→20:27)
[2020-03-16] MEDS: DIGOXIN 125 MCG TABLET GT SCH (08:58)
[2020-03-16] MEDS: NYSTATIN CREAM 30 GM TUBE TOP SCH ×2 (08:59→20:28)
[2020-03-16] MEDS: Z GUARD REMEDY PASTE 57 GM TUBE TOP SCH ×2 (08:59→20:28)
[2020-03-16] MEDS: NEOMY/BACITRAC/POLYMI OINT 28.35 GM TUBE TOP SCH ×2 (08:59→20:28)
[2020-03-16] MEDS: SODIUM HYPOCHLORITE 0.125% (QUARTER STRENGTH) 473 ML BOTTLE TP SCH ×2 (08:59→20:28)
[2020-03-16] MEDS: NORMAL SALINE NASAL 45 ML BOTTLE NS SCH (08:59)
[2020-03-16] MEDS: TRIAMCINOLONE ACET 0.1% CREAM 15 GM TUBE TOP SCH ×2 (08:59→20:28)
[2020-03-16] MEDS: THERAHONEY GEL 1.5 OZ TUBE TOP SCH ×2 (08:59→20:28)
[2020-03-16] MEDS: HYDROGEN PEROXIDE 3% 118 ML BOTTLE TP SCH ×2 (12:51→21:40)
--- NOTE | 2020-03-16 15:28 | NUR ---
Daughter Shannen notified covid19 will be done today, requested to be called only for results.
--- NOTE | 2020-03-16 17:45 | NUR ---
LEFT SIDE OF LIP CRACKED. MD NOTIFIED WITH NEW ORDER NOTED AND CARRIED OUT. DAUGHTER MADE AWARE. Addendum: 03/16/20 at 1814 by JAE DOS SANTOS LVN WRONG ENTRY.
[2020-03-16] MEDS: ACIDOPHILUS/BULGARICUS CHEW TAB GT SCH (20:27)
[2020-03-16] MEDS: ASCORBIC ACID 500 MG TABLET PO SCH (20:28)
[2020-03-16 20:44] VITALS: BP 138/64
[2020-03-17] MEDS: POLYVINYL ALCOHOL OPHT DROPS 15 ML BOTTLE EACHEYE SCH ×3 (05:16→21:43)
[2020-03-17] MEDS: PROTEIN SUPPLEMENT (PROSTAT) 30 ML LIQUID GT SCH ×3 (05:16→21:43)
[2020-03-17] MEDS: ARGININE/GLUTAMINE/CALCIUM BMB 1 EACH POWD.PACK GT SCH ×2 (05:16→17:24)
[2020-03-17 07:29] VITALS: BP 156/50
[2020-03-17] MEDS: HYDROGEN PEROXIDE 3% 118 ML BOTTLE TP SCH ×2 (08:05→21:45)
[2020-03-17] MEDS: FUROSEMIDE 20 MG TABLET GT SCH (08:35)
[2020-03-17] MEDS: DIGOXIN 125 MCG TABLET GT SCH (08:35)
[2020-03-17] MEDS: levETIRAcetam 500 MG/5 ML LIQUID UDC GT SCH ×2 (08:35→20:17)
[2020-03-17] MEDS: FAMOTIDINE 20 MG TABLET GT SCH ×2 (08:35→20:18)
[2020-03-17] MEDS: NORMAL SALINE NASAL 45 ML BOTTLE NS SCH (08:36)
[2020-03-17] MEDS: POTASSIUM CHLORIDE 40 MEQ/30 ML LIQUID UDC GT SCH (08:36)
[2020-03-17] MEDS: NEOMY/BACITRAC/POLYMI OINT 28.35 GM TUBE TOP SCH ×2 (08:39→20:19)
[2020-03-17] MEDS: TRIAMCINOLONE ACET 0.1% CREAM 15 GM TUBE TOP SCH ×2 (08:39→20:19)
[2020-03-17] MEDS: Z GUARD REMEDY PASTE 57 GM TUBE TOP SCH ×2 (08:39→20:19)
[2020-03-17] MEDS: NYSTATIN CREAM 30 GM TUBE TOP SCH ×2 (08:39→20:19)
[2020-03-17] MEDS: THERAHONEY GEL 1.5 OZ TUBE TOP SCH ×2 (08:39→20:19)
[2020-03-17] MEDS: SODIUM HYPOCHLORITE 0.125% (QUARTER STRENGTH) 473 ML BOTTLE TP SCH ×2 (08:40→20:19)
[2020-03-17] MEDS: GLUCERNA 1.2 1000ML LIQUID GT PRN (13:47)
[2020-03-17] MEDS: ACIDOPHILUS/BULGARICUS CHEW TAB GT SCH (20:17)
[2020-03-17] MEDS: ASCORBIC ACID 500 MG TABLET PO SCH (20:18)
[2020-03-17 20:19] VITALS: BP 114/69
[2020-03-18] MEDS: POLYVINYL ALCOHOL OPHT DROPS 15 ML BOTTLE EACHEYE SCH ×3 (05:19→22:00)
[2020-03-18] MEDS: PROTEIN SUPPLEMENT (PROSTAT) 30 ML LIQUID GT SCH ×3 (05:20→22:00)
[2020-03-18] MEDS: ARGININE/GLUTAMINE/CALCIUM BMB 1 EACH POWD.PACK GT SCH ×2 (05:20→17:17)
[2020-03-18 07:35] VITALS: BP 148/73
[2020-03-18] MEDS: DIGOXIN 125 MCG TABLET GT SCH (08:47)
[2020-03-18] MEDS: levETIRAcetam 500 MG/5 ML LIQUID UDC GT SCH ×2 (08:47→21:01)
[2020-03-18] MEDS: FAMOTIDINE 20 MG TABLET GT SCH ×2 (08:47→20:54)
[2020-03-18] MEDS: FUROSEMIDE 20 MG TABLET GT SCH (08:47)
[2020-03-18] MEDS: POTASSIUM CHLORIDE 40 MEQ/30 ML LIQUID UDC GT SCH (08:48)
[2020-03-18] MEDS: NORMAL SALINE NASAL 45 ML BOTTLE NS SCH (08:48)
[2020-03-18] MEDS: TRIAMCINOLONE ACET 0.1% CREAM 15 GM TUBE TOP SCH ×2 (08:48→20:54)
[2020-03-18] MEDS: SODIUM HYPOCHLORITE 0.125% (QUARTER STRENGTH) 473 ML BOTTLE TP SCH ×2 (08:49→20:55)
[2020-03-18] MEDS: Z GUARD REMEDY PASTE 57 GM TUBE TOP SCH ×2 (08:49→20:54)
[2020-03-18] MEDS: NEOMY/BACITRAC/POLYMI OINT 28.35 GM TUBE TOP SCH ×2 (08:49→20:54)
[2020-03-18] MEDS: THERAHONEY GEL 1.5 OZ TUBE TOP SCH ×2 (08:49→20:54)
[2020-03-18] MEDS: NYSTATIN CREAM 30 GM TUBE TOP SCH ×2 (08:49→20:54)
[2020-03-18] MEDS: HYDROGEN PEROXIDE 3% 118 ML BOTTLE TP SCH ×2 (09:00→21:04)
[2020-03-18] MEDS: GLUCERNA 1.2 1000ML LIQUID GT PRN (17:22)
[2020-03-18 20:00] VITALS: BP 97/73
[2020-03-18] MEDS: ASCORBIC ACID 500 MG TABLET PO SCH (20:54)
[2020-03-18] MEDS: ACIDOPHILUS/BULGARICUS CHEW TAB GT SCH (20:54)
--- NOTE | 2020-03-18 22:17 | NUR ---
called daughterfadia notified pt is covid 19- negative.
[2020-03-19] MEDS: ARGININE/GLUTAMINE/CALCIUM BMB 1 EACH POWD.PACK GT SCH ×2 (05:41→17:11)
[2020-03-19] MEDS: POLYVINYL ALCOHOL OPHT DROPS 15 ML BOTTLE EACHEYE SCH ×3 (05:41→22:28)
[2020-03-19] MEDS: PROTEIN SUPPLEMENT (PROSTAT) 30 ML LIQUID GT SCH ×3 (05:42→22:28)
[2020-03-19] MEDS: HYDROGEN PEROXIDE 3% 118 ML BOTTLE TP SCH ×2 (07:24→21:18)
[2020-03-19 07:35] VITALS: BP 104/79
[2020-03-19] MEDS: DIGOXIN 125 MCG TABLET GT SCH (08:25)
[2020-03-19] MEDS: levETIRAcetam 500 MG/5 ML LIQUID UDC GT SCH ×2 (08:25→20:50)
[2020-03-19] MEDS: FAMOTIDINE 20 MG TABLET GT SCH ×2 (08:26→20:50)
[2020-03-19] MEDS: FUROSEMIDE 20 MG TABLET GT SCH (08:26)
[2020-03-19] MEDS: TRIAMCINOLONE ACET 0.1% CREAM 15 GM TUBE TOP SCH ×2 (08:29→20:50)
[2020-03-19] MEDS: NORMAL SALINE NASAL 45 ML BOTTLE NS SCH (08:29)
[2020-03-19] MEDS: POTASSIUM CHLORIDE 40 MEQ/30 ML LIQUID UDC GT SCH (08:29)
[2020-03-19] MEDS: NEOMY/BACITRAC/POLYMI OINT 28.35 GM TUBE TOP SCH ×2 (08:30→20:51)
[2020-03-19] MEDS: THERAHONEY GEL 1.5 OZ TUBE TOP SCH ×2 (08:30→20:51)
[2020-03-19] MEDS: Z GUARD REMEDY PASTE 57 GM TUBE TOP SCH ×2 (08:30→20:51)
[2020-03-19] MEDS: NYSTATIN CREAM 30 GM TUBE TOP SCH ×2 (08:30→20:50)
[2020-03-19] MEDS: SODIUM HYPOCHLORITE 0.125% (QUARTER STRENGTH) 473 ML BOTTLE TP SCH ×2 (08:30→20:51)
[2020-03-19 20:00] VITALS: BP 126/55
[2020-03-19] MEDS: ACIDOPHILUS/BULGARICUS CHEW TAB GT SCH (20:50)
[2020-03-19] MEDS: ASCORBIC ACID 500 MG TABLET PO SCH (20:50)
[2020-03-20] MEDS: GLUCERNA 1.2 1000ML LIQUID GT PRN (01:06)
[2020-03-20] MEDS: ARGININE/GLUTAMINE/CALCIUM BMB 1 EACH POWD.PACK GT SCH ×2 (05:35→17:58)
[2020-03-20] MEDS: PROTEIN SUPPLEMENT (PROSTAT) 30 ML LIQUID GT SCH ×3 (05:35→22:14)
[2020-03-20] MEDS: POLYVINYL ALCOHOL OPHT DROPS 15 ML BOTTLE EACHEYE SCH ×3 (05:35→22:14)
[2020-03-20 07:37] VITALS: BP 126/67
[2020-03-20] MEDS: FUROSEMIDE 20 MG TABLET GT SCH (08:35)
[2020-03-20] MEDS: NORMAL SALINE NASAL 45 ML BOTTLE NS SCH (08:35)
[2020-03-20] MEDS: FAMOTIDINE 20 MG TABLET GT SCH ×2 (08:35→21:00)
[2020-03-20] MEDS: DIGOXIN 125 MCG TABLET GT SCH (08:35)
[2020-03-20] MEDS: levETIRAcetam 500 MG/5 ML LIQUID UDC GT SCH ×2 (08:35→21:00)
[2020-03-20] MEDS: POTASSIUM CHLORIDE 40 MEQ/30 ML LIQUID UDC GT SCH (08:35)
[2020-03-20] MEDS: THERAHONEY GEL 1.5 OZ TUBE TOP SCH ×2 (08:36→21:00)
[2020-03-20] MEDS: NYSTATIN CREAM 30 GM TUBE TOP SCH ×2 (08:36→21:00)
[2020-03-20] MEDS: SODIUM HYPOCHLORITE 0.125% (QUARTER STRENGTH) 473 ML BOTTLE TP SCH ×2 (08:36→21:00)
[2020-03-20] MEDS: TRIAMCINOLONE ACET 0.1% CREAM 15 GM TUBE TOP SCH ×2 (08:36→21:00)
[2020-03-20] MEDS: NEOMY/BACITRAC/POLYMI OINT 28.35 GM TUBE TOP SCH ×2 (08:36→21:00)
[2020-03-20] MEDS: Z GUARD REMEDY PASTE 57 GM TUBE TOP SCH ×2 (08:36→21:00)
[2020-03-20] MEDS: HYDROGEN PEROXIDE 3% 118 ML BOTTLE TP SCH ×2 (10:00→21:45)
[2020-03-20 20:00] VITALS: BP 111/66
[2020-03-20] MEDS: ACIDOPHILUS/BULGARICUS CHEW TAB GT SCH (21:00)
[2020-03-20] MEDS: ASCORBIC ACID 500 MG TABLET PO SCH (21:00)
--- NOTE | 2020-03-21 01:10 | NUR ---
For COVID-19 testing as per [facility] requirement.
[2020-03-21] MEDS: POLYVINYL ALCOHOL OPHT DROPS 15 ML BOTTLE EACHEYE SCH ×3 (05:27→21:43)
[2020-03-21] MEDS: PROTEIN SUPPLEMENT (PROSTAT) 30 ML LIQUID GT SCH ×3 (05:27→21:43)
[2020-03-21] MEDS: ARGININE/GLUTAMINE/CALCIUM BMB 1 EACH POWD.PACK GT SCH ×2 (05:27→18:19)
[2020-03-21] MEDS: GLUCERNA 1.2 1000ML LIQUID GT PRN (05:28)
[2020-03-21] MEDS: ACETAMINOPHEN 650 MG/20.3 ML LIQUID UDC GT PRN (05:30)
[2020-03-21 07:32] VITALS: BP 140/62
[2020-03-21] MEDS: HYDROGEN PEROXIDE 3% 118 ML BOTTLE TP SCH ×2 (08:59→22:10)
[2020-03-21] MEDS: levETIRAcetam 500 MG/5 ML LIQUID UDC GT SCH ×2 (09:07→20:44)
[2020-03-21] MEDS: FUROSEMIDE 20 MG TABLET GT SCH (09:09)
[2020-03-21] MEDS: POTASSIUM CHLORIDE 40 MEQ/30 ML LIQUID UDC GT SCH (09:09)
[2020-03-21] MEDS: DIGOXIN 125 MCG TABLET GT SCH (09:09)
[2020-03-21] MEDS: FAMOTIDINE 20 MG TABLET GT SCH ×2 (09:09→20:44)
[2020-03-21] MEDS: TRIAMCINOLONE ACET 0.1% CREAM 15 GM TUBE TOP SCH ×2 (09:10→20:44)
[2020-03-21] MEDS: NORMAL SALINE NASAL 45 ML BOTTLE NS SCH (09:10)
[2020-03-21] MEDS: THERAHONEY GEL 1.5 OZ TUBE TOP SCH ×2 (09:11→20:44)
[2020-03-21] MEDS: SODIUM HYPOCHLORITE 0.125% (QUARTER STRENGTH) 473 ML BOTTLE TP SCH ×2 (09:11→20:44)
[2020-03-21] MEDS: NYSTATIN CREAM 30 GM TUBE TOP SCH ×2 (09:11→20:44)
[2020-03-21] MEDS: Z GUARD REMEDY PASTE 57 GM TUBE TOP SCH ×2 (09:11→20:44)
--- NOTE | 2020-03-21 12:46 | NUR ---
PT'S DTRKenzie SOUZA WAS AWARE AND IN AGREEMENT OF ORDER FOR COVID 19 TESTFOR TODAY.
[2020-03-21 20:28] VITALS: BP 137/54
[2020-03-21] MEDS: ACIDOPHILUS/BULGARICUS CHEW TAB GT SCH (20:44)
[2020-03-21] MEDS: ASCORBIC ACID 500 MG TABLET PO SCH (20:44)
[2020-03-22] MEDS: PROTEIN SUPPLEMENT (PROSTAT) 30 ML LIQUID GT SCH ×3 (05:14→22:10)
[2020-03-22] MEDS: ARGININE/GLUTAMINE/CALCIUM BMB 1 EACH POWD.PACK GT SCH ×2 (05:14→18:41)
[2020-03-22] MEDS: POLYVINYL ALCOHOL OPHT DROPS 15 ML BOTTLE EACHEYE SCH ×3 (05:14→22:10)
[2020-03-22 07:33] VITALS: BP 133/64
[2020-03-22] MEDS: levETIRAcetam 500 MG/5 ML LIQUID UDC GT SCH ×2 (09:47→21:00)
[2020-03-22] MEDS: DIGOXIN 125 MCG TABLET GT SCH (09:48)
[2020-03-22] MEDS: FUROSEMIDE 20 MG TABLET GT SCH (09:49)
[2020-03-22] MEDS: Z GUARD REMEDY PASTE 57 GM TUBE TOP SCH ×2 (09:49→21:00)
[2020-03-22] MEDS: FAMOTIDINE 20 MG TABLET GT SCH ×2 (09:49→21:00)
[2020-03-22] MEDS: THERAHONEY GEL 1.5 OZ TUBE TOP SCH ×2 (09:49→21:00)
[2020-03-22] MEDS: POTASSIUM CHLORIDE 40 MEQ/30 ML LIQUID UDC GT SCH (09:49)
[2020-03-22] MEDS: SODIUM HYPOCHLORITE 0.125% (QUARTER STRENGTH) 473 ML BOTTLE TP SCH ×2 (09:49→21:00)
[2020-03-22] MEDS: TRIAMCINOLONE ACET 0.1% CREAM 15 GM TUBE TOP SCH ×2 (09:49→21:00)
[2020-03-22] MEDS: NYSTATIN CREAM 30 GM TUBE TOP SCH ×2 (09:49→21:00)
[2020-03-22] MEDS: NORMAL SALINE NASAL 45 ML BOTTLE NS SCH (09:49)
[2020-03-22] MEDS: HYDROGEN PEROXIDE 3% 118 ML BOTTLE TP SCH ×2 (09:57→21:42)
--- NOTE | 2020-03-22 16:59 | NUR ---
PT'S DTR. WAS AWARE OF COVID 19 TEST RESULT IS NEGATIVE.
--- NOTE | 2020-03-22 19:34 | NUR ---
PT'S DTR. AND RESP. LIBERTARIAN HARLEY IN AGREEMENT TRANSFERRING PT. TO ROOM 401 BED A ,ENDORSED TO NOC SHIFT TO F/U ,THIS IS IN ORDER TO MEET ISOLATION PROTOCOL NEEDS OF THE UNIT.
[2020-03-22 20:34] VITALS: BP 104/75
[2020-03-22 20:41] VITALS: BP 107/76
[2020-03-22] MEDS: ACIDOPHILUS/BULGARICUS CHEW TAB GT SCH (21:00)
[2020-03-22] MEDS: ASCORBIC ACID 500 MG TABLET PO SCH (21:00)
[2020-03-23] MEDS: ARGININE/GLUTAMINE/CALCIUM BMB 1 EACH POWD.PACK GT SCH ×2 (05:53→18:54)
[2020-03-23] MEDS: PROTEIN SUPPLEMENT (PROSTAT) 30 ML LIQUID GT SCH ×3 (05:53→21:44)
[2020-03-23] MEDS: POLYVINYL ALCOHOL OPHT DROPS 15 ML BOTTLE EACHEYE SCH ×3 (05:53→21:44)
[2020-03-23 07:39] VITALS: BP 152/58
[2020-03-23] MEDS: DIGOXIN 125 MCG TABLET GT SCH (08:06)
[2020-03-23] MEDS: FUROSEMIDE 20 MG TABLET GT SCH (08:06)
[2020-03-23] MEDS: FAMOTIDINE 20 MG TABLET GT SCH ×2 (08:06→21:43)
[2020-03-23] MEDS: POTASSIUM CHLORIDE 40 MEQ/30 ML LIQUID UDC GT SCH (08:06)
[2020-03-23] MEDS: levETIRAcetam 500 MG/5 ML LIQUID UDC GT SCH ×2 (08:06→21:43)
[2020-03-23] MEDS: THERAHONEY GEL 1.5 OZ TUBE TOP SCH ×2 (08:07→21:43)
[2020-03-23] MEDS: TRIAMCINOLONE ACET 0.1% CREAM 15 GM TUBE TOP SCH ×2 (08:07→21:43)
[2020-03-23] MEDS: SODIUM HYPOCHLORITE 0.125% (QUARTER STRENGTH) 473 ML BOTTLE TP SCH ×2 (08:07→21:43)
[2020-03-23] MEDS: NYSTATIN CREAM 30 GM TUBE TOP SCH ×2 (08:07→21:43)
[2020-03-23] MEDS: Z GUARD REMEDY PASTE 57 GM TUBE TOP SCH ×2 (08:07→21:43)
[2020-03-23] MEDS: NORMAL SALINE NASAL 45 ML BOTTLE NS SCH (08:07)
[2020-03-23] MEDS: HYDROGEN PEROXIDE 3% 118 ML BOTTLE TP SCH ×2 (08:59→21:32)
--- NOTE | 2020-03-23 10:24 | NUR ---
PT. WAS TRANSFERRED TO ROOM 401 BED A .
--- NOTE | 2020-03-23 13:45 | NUR ---
PT. WAS SEEN BY ROOPA Dixon AND WITH СВЕТЛАНАO.
[2020-03-23 20:00] VITALS: BP 132/52
[2020-03-23] MEDS: ACIDOPHILUS/BULGARICUS CHEW TAB GT SCH (21:43)
[2020-03-23] MEDS: ASCORBIC ACID 500 MG TABLET PO SCH (21:43)
[2020-03-24] MEDS: POLYVINYL ALCOHOL OPHT DROPS 15 ML BOTTLE EACHEYE SCH ×3 (05:41→22:04)
[2020-03-24] MEDS: ARGININE/GLUTAMINE/CALCIUM BMB 1 EACH POWD.PACK GT SCH ×2 (05:41→17:03)
[2020-03-24] MEDS: PROTEIN SUPPLEMENT (PROSTAT) 30 ML LIQUID GT SCH ×3 (05:42→22:04)
[2020-03-24 07:21] VITALS: BP 123/63
[2020-03-24] MEDS: levETIRAcetam 500 MG/5 ML LIQUID UDC GT SCH ×2 (08:45→20:40)
[2020-03-24] MEDS: NORMAL SALINE NASAL 45 ML BOTTLE NS SCH (08:46)
[2020-03-24] MEDS: FAMOTIDINE 20 MG TABLET GT SCH ×2 (08:46→20:40)
[2020-03-24] MEDS: POTASSIUM CHLORIDE 40 MEQ/30 ML LIQUID UDC GT SCH (08:46)
[2020-03-24] MEDS: FUROSEMIDE 20 MG TABLET GT SCH (08:46)
[2020-03-24] MEDS: ACETAMINOPHEN 650 MG/20.3 ML LIQUID UDC GT PRN (08:46)
[2020-03-24] MEDS: DIGOXIN 125 MCG TABLET GT SCH (08:46)
[2020-03-24] MEDS: HYDROGEN PEROXIDE 3% 118 ML BOTTLE TP SCH ×2 (08:49→20:55)
[2020-03-24] MEDS: Z GUARD REMEDY PASTE 57 GM TUBE TOP SCH ×2 (09:24→20:41)
[2020-03-24] MEDS: THERAHONEY GEL 1.5 OZ TUBE TOP SCH ×2 (09:24→20:41)
[2020-03-24] MEDS: NYSTATIN CREAM 30 GM TUBE TOP SCH ×2 (09:24→20:41)
[2020-03-24] MEDS: TRIAMCINOLONE ACET 0.1% CREAM 15 GM TUBE TOP SCH ×2 (09:24→20:41)
[2020-03-24] MEDS: SODIUM HYPOCHLORITE 0.125% (QUARTER STRENGTH) 473 ML BOTTLE TP SCH ×2 (09:24→20:42)
--- NOTE | 2020-03-24 13:53 | NUR ---
Seen and examined by Dr silva ,no new orders.
--- NOTE | 2020-03-24 14:12 | NUR ---
Seen and examined by Aylin Quintero,no new orders.
[2020-03-24] MEDS: GLUCERNA 1.2 1000ML LIQUID GT PRN (18:57)
[2020-03-24 20:00] VITALS: BP 121/54
[2020-03-24] MEDS: ACIDOPHILUS/BULGARICUS CHEW TAB GT SCH (20:40)
[2020-03-24] MEDS: ASCORBIC ACID 500 MG TABLET PO SCH (20:40)
[2020-03-25] MEDS: ARGININE/GLUTAMINE/CALCIUM BMB 1 EACH POWD.PACK GT SCH ×2 (05:20→18:09)
[2020-03-25] MEDS: POLYVINYL ALCOHOL OPHT DROPS 15 ML BOTTLE EACHEYE SCH ×3 (05:20→21:38)
[2020-03-25] MEDS: PROTEIN SUPPLEMENT (PROSTAT) 30 ML LIQUID GT SCH ×3 (05:20→21:38)
--- NOTE | 2020-03-25 05:22 | NUR ---
Patient noted with left side of lip scab, cleansed and initiated in- house treatment, handled very gently, kept clean and comfortable.
[2020-03-25 07:23] VITALS: BP 109/62
[2020-03-25] MEDS: HYDROGEN PEROXIDE 3% 118 ML BOTTLE TP SCH ×2 (07:34→21:34)
[2020-03-25] MEDS: levETIRAcetam 500 MG/5 ML LIQUID UDC GT SCH ×2 (08:15→20:15)
[2020-03-25] MEDS: POTASSIUM CHLORIDE 40 MEQ/30 ML LIQUID UDC GT SCH (08:15)
[2020-03-25] MEDS: DIGOXIN 125 MCG TABLET GT SCH (08:15)
[2020-03-25] MEDS: FUROSEMIDE 20 MG TABLET GT SCH (08:15)
[2020-03-25] MEDS: NORMAL SALINE NASAL 45 ML BOTTLE NS SCH (08:15)
[2020-03-25] MEDS: FAMOTIDINE 20 MG TABLET GT SCH ×2 (08:15→20:15)
[2020-03-25] MEDS: TRIAMCINOLONE ACET 0.1% CREAM 15 GM TUBE TOP SCH ×2 (09:00→20:15)
[2020-03-25] MEDS: SODIUM HYPOCHLORITE 0.125% (QUARTER STRENGTH) 473 ML BOTTLE TP SCH ×2 (09:00→20:15)
[2020-03-25] MEDS: Z GUARD REMEDY PASTE 57 GM TUBE TOP SCH ×2 (09:00→20:15)
[2020-03-25] MEDS: NYSTATIN CREAM 30 GM TUBE TOP SCH ×2 (09:00→20:15)
[2020-03-25] MEDS: THERAHONEY GEL 1.5 OZ TUBE TOP SCH ×2 (09:00→20:15)
[2020-03-25] MEDS: ACETAMINOPHEN 650 MG/20.3 ML LIQUID UDC GT PRN (09:19)
[2020-03-25 20:00] VITALS: BP 132/63
[2020-03-25] MEDS: ACIDOPHILUS/BULGARICUS CHEW TAB GT SCH (20:15)
[2020-03-25] MEDS: ASCORBIC ACID 500 MG TABLET PO SCH (20:15)
[2020-03-25] MEDS: NEOMY/BACITRAC/POLYMI OINT 28.35 GM TUBE TOP SCH (20:17)
[2020-03-26] MEDS: GLUCERNA 1.2 1000ML LIQUID GT PRN (05:00)
[2020-03-26] MEDS: POLYVINYL ALCOHOL OPHT DROPS 15 ML BOTTLE EACHEYE SCH ×3 (05:12→21:38)
[2020-03-26] MEDS: ARGININE/GLUTAMINE/CALCIUM BMB 1 EACH POWD.PACK GT SCH ×2 (05:13→18:33)
[2020-03-26] MEDS: PROTEIN SUPPLEMENT (PROSTAT) 30 ML LIQUID GT SCH ×3 (05:13→21:38)
[2020-03-26] MEDS: HYDROGEN PEROXIDE 3% 118 ML BOTTLE TP SCH ×2 (07:17→21:26)
[2020-03-26 07:28] VITALS: BP 134/68
[2020-03-26] MEDS: SODIUM HYPOCHLORITE 0.125% (QUARTER STRENGTH) 473 ML BOTTLE TP SCH ×2 (09:00→21:38)
[2020-03-26] MEDS: Z GUARD REMEDY PASTE 57 GM TUBE TOP SCH ×2 (09:00→21:38)
[2020-03-26] MEDS: levETIRAcetam 500 MG/5 ML LIQUID UDC GT SCH ×2 (09:00→21:36)
[2020-03-26] MEDS: FUROSEMIDE 20 MG TABLET GT SCH (09:00)
[2020-03-26] MEDS: FAMOTIDINE 20 MG TABLET GT SCH ×2 (09:00→21:37)
[2020-03-26] MEDS: THERAHONEY GEL 1.5 OZ TUBE TOP SCH ×2 (09:00→21:38)
[2020-03-26] MEDS: POTASSIUM CHLORIDE 40 MEQ/30 ML LIQUID UDC GT SCH (09:00)
[2020-03-26] MEDS: NYSTATIN CREAM 30 GM TUBE TOP SCH ×2 (09:00→21:38)
[2020-03-26] MEDS: TRIAMCINOLONE ACET 0.1% CREAM 15 GM TUBE TOP SCH ×2 (09:00→21:38)
[2020-03-26] MEDS: DIGOXIN 125 MCG TABLET GT SCH (09:00)
[2020-03-26] MEDS: NEOMY/BACITRAC/POLYMI OINT 28.35 GM TUBE TOP SCH ×2 (09:00→21:38)
[2020-03-26] MEDS: NORMAL SALINE NASAL 45 ML BOTTLE NS SCH (09:00)
[2020-03-26 20:00] VITALS: BP 122/61
[2020-03-26] MEDS: ACIDOPHILUS/BULGARICUS CHEW TAB GT SCH (21:36)
[2020-03-26] MEDS: ASCORBIC ACID 500 MG TABLET PO SCH (21:38)
[2020-03-27] MEDS: PROTEIN SUPPLEMENT (PROSTAT) 30 ML LIQUID GT SCH ×3 (05:35→21:43)
[2020-03-27] MEDS: ARGININE/GLUTAMINE/CALCIUM BMB 1 EACH POWD.PACK GT SCH ×2 (05:35→17:09)
[2020-03-27] MEDS: POLYVINYL ALCOHOL OPHT DROPS 15 ML BOTTLE EACHEYE SCH ×3 (05:35→21:43)
[2020-03-27 07:29] VITALS: BP 129/67
[2020-03-27] MEDS: levETIRAcetam 500 MG/5 ML LIQUID UDC GT SCH ×2 (08:06→21:41)
[2020-03-27] MEDS: NEOMY/BACITRAC/POLYMI OINT 28.35 GM TUBE TOP SCH ×2 (08:07→21:42)
[2020-03-27] MEDS: DIGOXIN 125 MCG TABLET GT SCH (08:07)
[2020-03-27] MEDS: NORMAL SALINE NASAL 45 ML BOTTLE NS SCH (08:07)
[2020-03-27] MEDS: TRIAMCINOLONE ACET 0.1% CREAM 15 GM TUBE TOP SCH ×2 (08:07→21:42)
[2020-03-27] MEDS: NYSTATIN CREAM 30 GM TUBE TOP SCH ×2 (08:07→21:42)
[2020-03-27] MEDS: Z GUARD REMEDY PASTE 57 GM TUBE TOP SCH ×2 (08:07→21:42)
[2020-03-27] MEDS: POTASSIUM CHLORIDE 40 MEQ/30 ML LIQUID UDC GT SCH (08:07)
[2020-03-27] MEDS: THERAHONEY GEL 1.5 OZ TUBE TOP SCH ×2 (08:07→21:42)
[2020-03-27] MEDS: FUROSEMIDE 20 MG TABLET GT SCH (08:07)
[2020-03-27] MEDS: FAMOTIDINE 20 MG TABLET GT SCH ×2 (08:07→21:41)
[2020-03-27] MEDS: SODIUM HYPOCHLORITE 0.125% (QUARTER STRENGTH) 473 ML BOTTLE TP SCH ×2 (08:08→21:42)
[2020-03-27] MEDS: HYDROGEN PEROXIDE 3% 118 ML BOTTLE TP SCH ×2 (09:26→21:36)
--- NOTE | 2020-03-27 10:57 | NUR ---
Daughter Sheeba notified, covid19 test will be done later today.
[2020-03-27 20:00] VITALS: BP 121/52
[2020-03-27] MEDS: ACIDOPHILUS/BULGARICUS CHEW TAB GT SCH (21:40)
[2020-03-27] MEDS: ASCORBIC ACID 500 MG TABLET PO SCH (21:41)
[2020-03-28] MEDS: POLYVINYL ALCOHOL OPHT DROPS 15 ML BOTTLE EACHEYE SCH ×3 (05:47→22:10)
[2020-03-28] MEDS: PROTEIN SUPPLEMENT (PROSTAT) 30 ML LIQUID GT SCH ×3 (05:48→22:10)
[2020-03-28] MEDS: ARGININE/GLUTAMINE/CALCIUM BMB 1 EACH POWD.PACK GT SCH ×2 (05:48→17:33)
[2020-03-28 07:44] VITALS: BP 128/62
[2020-03-28] MEDS: levETIRAcetam 500 MG/5 ML LIQUID UDC GT SCH ×2 (08:27→21:30)
[2020-03-28] MEDS: FUROSEMIDE 20 MG TABLET GT SCH (08:27)
[2020-03-28] MEDS: DIGOXIN 125 MCG TABLET GT SCH (08:27)
[2020-03-28] MEDS: FAMOTIDINE 20 MG TABLET GT SCH ×2 (08:27→21:30)
[2020-03-28] MEDS: THERAHONEY GEL 1.5 OZ TUBE TOP SCH ×2 (08:27→21:31)
[2020-03-28] MEDS: POTASSIUM CHLORIDE 40 MEQ/30 ML LIQUID UDC GT SCH (08:27)
[2020-03-28] MEDS: NYSTATIN CREAM 30 GM TUBE TOP SCH ×2 (08:27→21:31)
[2020-03-28] MEDS: Z GUARD REMEDY PASTE 57 GM TUBE TOP SCH ×2 (08:27→21:31)
[2020-03-28] MEDS: TRIAMCINOLONE ACET 0.1% CREAM 15 GM TUBE TOP SCH ×2 (08:27→21:31)
[2020-03-28] MEDS: NORMAL SALINE NASAL 45 ML BOTTLE NS SCH (08:27)
[2020-03-28] MEDS: NEOMY/BACITRAC/POLYMI OINT 28.35 GM TUBE TOP SCH ×2 (08:27→21:31)
[2020-03-28] MEDS: SODIUM HYPOCHLORITE 0.125% (QUARTER STRENGTH) 473 ML BOTTLE TP SCH ×2 (08:28→21:32)
[2020-03-28] MEDS: HYDROGEN PEROXIDE 3% 118 ML BOTTLE TP SCH ×2 (08:30→21:53)
[2020-03-28] MEDS: GLUCERNA 1.2 1000ML LIQUID GT PRN (12:11)
[2020-03-28 20:20] VITALS: BP 126/66
[2020-03-28] MEDS: ACIDOPHILUS/BULGARICUS CHEW TAB GT SCH (21:29)
[2020-03-28] MEDS: ASCORBIC ACID 500 MG TABLET PO SCH (21:30)
[2020-03-29] MEDS: POLYVINYL ALCOHOL OPHT DROPS 15 ML BOTTLE EACHEYE SCH ×3 (05:27→22:00)
[2020-03-29] MEDS: ARGININE/GLUTAMINE/CALCIUM BMB 1 EACH POWD.PACK GT SCH ×2 (05:28→17:49)
[2020-03-29] MEDS: PROTEIN SUPPLEMENT (PROSTAT) 30 ML LIQUID GT SCH ×3 (05:28→22:00)
[2020-03-29 07:28] VITALS: BP 133/69
[2020-03-29] MEDS: NORMAL SALINE NASAL 45 ML BOTTLE NS SCH (08:01)
[2020-03-29] MEDS: POTASSIUM CHLORIDE 40 MEQ/30 ML LIQUID UDC GT SCH (08:01)
[2020-03-29] MEDS: FAMOTIDINE 20 MG TABLET GT SCH ×2 (08:01→20:10)
[2020-03-29] MEDS: DIGOXIN 125 MCG TABLET GT SCH (08:01)
[2020-03-29] MEDS: FUROSEMIDE 20 MG TABLET GT SCH (08:01)
[2020-03-29] MEDS: TRIAMCINOLONE ACET 0.1% CREAM 15 GM TUBE TOP SCH ×2 (08:01→20:15)
[2020-03-29] MEDS: levETIRAcetam 500 MG/5 ML LIQUID UDC GT SCH ×2 (08:01→20:09)
[2020-03-29] MEDS: THERAHONEY GEL 1.5 OZ TUBE TOP SCH ×2 (08:03→20:16)
[2020-03-29] MEDS: NYSTATIN CREAM 30 GM TUBE TOP SCH ×2 (08:03→20:15)
[2020-03-29] MEDS: Z GUARD REMEDY PASTE 57 GM TUBE TOP SCH ×2 (08:03→20:15)
[2020-03-29] MEDS: NEOMY/BACITRAC/POLYMI OINT 28.35 GM TUBE TOP SCH ×2 (08:03→20:16)
[2020-03-29] MEDS: SODIUM HYPOCHLORITE 0.125% (QUARTER STRENGTH) 473 ML BOTTLE TP SCH ×2 (08:03→20:16)
[2020-03-29] MEDS: HYDROGEN PEROXIDE 3% 118 ML BOTTLE TP SCH ×2 (09:00→21:03)
[2020-03-29] MEDS: GLUCERNA 1.2 1000ML LIQUID GT PRN (14:31)
--- NOTE | 2020-03-29 18:54 | NUR ---
Pt's Daughter Sheeba notified Covid 19 results negative.
[2020-03-29 19:56] VITALS: BP 128/67
[2020-03-29] MEDS: ACIDOPHILUS/BULGARICUS CHEW TAB GT SCH (20:09)
[2020-03-29] MEDS: ASCORBIC ACID 500 MG TABLET PO SCH (20:15)
[2020-03-30] MEDS: PROTEIN SUPPLEMENT (PROSTAT) 30 ML LIQUID GT SCH ×3 (05:11→21:41)
[2020-03-30] MEDS: ARGININE/GLUTAMINE/CALCIUM BMB 1 EACH POWD.PACK GT SCH ×2 (05:11→18:15)
[2020-03-30] MEDS: POLYVINYL ALCOHOL OPHT DROPS 15 ML BOTTLE EACHEYE SCH ×3 (05:11→21:41)
[2020-03-30 07:28] VITALS: BP 115/53
[2020-03-30] MEDS: NORMAL SALINE NASAL 45 ML BOTTLE NS SCH (08:02)
[2020-03-30] MEDS: POTASSIUM CHLORIDE 40 MEQ/30 ML LIQUID UDC GT SCH (08:02)
[2020-03-30] MEDS: levETIRAcetam 500 MG/5 ML LIQUID UDC GT SCH ×2 (08:02→20:33)
[2020-03-30] MEDS: DIGOXIN 125 MCG TABLET GT SCH (08:02)
[2020-03-30] MEDS: FUROSEMIDE 20 MG TABLET GT SCH (08:02)
[2020-03-30] MEDS: NYSTATIN CREAM 30 GM TUBE TOP SCH ×2 (08:02→20:33)
[2020-03-30] MEDS: Z GUARD REMEDY PASTE 57 GM TUBE TOP SCH ×2 (08:02→20:34)
[2020-03-30] MEDS: FAMOTIDINE 20 MG TABLET GT SCH ×2 (08:02→20:33)
[2020-03-30] MEDS: TRIAMCINOLONE ACET 0.1% CREAM 15 GM TUBE TOP SCH ×2 (08:02→20:33)
[2020-03-30] MEDS: NEOMY/BACITRAC/POLYMI OINT 28.35 GM TUBE TOP SCH ×2 (08:04→20:34)
[2020-03-30] MEDS: SODIUM HYPOCHLORITE 0.125% (QUARTER STRENGTH) 473 ML BOTTLE TP SCH ×2 (08:04→20:34)
[2020-03-30] MEDS: THERAHONEY GEL 1.5 OZ TUBE TOP SCH ×2 (08:04→20:34)
[2020-03-30] MEDS: HYDROGEN PEROXIDE 3% 118 ML BOTTLE TP SCH ×2 (09:00→21:00)
[2020-03-30 20:16] VITALS: BP 113/52
[2020-03-30] MEDS: ASCORBIC ACID 500 MG TABLET PO SCH (20:33)
[2020-03-30] MEDS: ACIDOPHILUS/BULGARICUS CHEW TAB GT SCH (20:33)
[2020-03-31] MEDS: PROTEIN SUPPLEMENT (PROSTAT) 30 ML LIQUID GT SCH ×3 (05:07→21:39)
[2020-03-31] MEDS: POLYVINYL ALCOHOL OPHT DROPS 15 ML BOTTLE EACHEYE SCH ×3 (05:07→21:39)
[2020-03-31] MEDS: ARGININE/GLUTAMINE/CALCIUM BMB 1 EACH POWD.PACK GT SCH ×2 (05:07→18:19)
[2020-03-31] MEDS: HYDROGEN PEROXIDE 3% 118 ML BOTTLE TP SCH ×2 (07:00→21:55)
[2020-03-31 07:26] VITALS: BP 106/40
[2020-03-31] MEDS: levETIRAcetam 500 MG/5 ML LIQUID UDC GT SCH ×2 (08:12→21:33)
[2020-03-31] MEDS: DIGOXIN 125 MCG TABLET GT SCH (08:12)
[2020-03-31] MEDS: NORMAL SALINE NASAL 45 ML BOTTLE NS SCH (08:12)
[2020-03-31] MEDS: FAMOTIDINE 20 MG TABLET GT SCH ×2 (08:12→21:34)
[2020-03-31] MEDS: POTASSIUM CHLORIDE 40 MEQ/30 ML LIQUID UDC GT SCH (08:12)
[2020-03-31] MEDS: FUROSEMIDE 20 MG TABLET GT SCH (08:12)
[2020-03-31] MEDS: TRIAMCINOLONE ACET 0.1% CREAM 15 GM TUBE TOP SCH ×2 (08:12→21:35)
[2020-03-31] MEDS: SODIUM HYPOCHLORITE 0.125% (QUARTER STRENGTH) 473 ML BOTTLE TP SCH ×2 (08:13→21:36)
[2020-03-31] MEDS: THERAHONEY GEL 1.5 OZ TUBE TOP SCH ×2 (08:13→21:36)
[2020-03-31] MEDS: Z GUARD REMEDY PASTE 57 GM TUBE TOP SCH ×2 (08:13→21:36)
[2020-03-31] MEDS: NEOMY/BACITRAC/POLYMI OINT 28.35 GM TUBE TOP SCH ×2 (08:13→21:36)
[2020-03-31] MEDS: NYSTATIN CREAM 30 GM TUBE TOP SCH ×2 (08:13→21:35)
--- NOTE | 2020-03-31 13:19 | NUR ---
Seen and examined by Dr Murguia,with new orders noted for Keppra and digoxin level .
[2020-03-31 13:25] LABS: CREATININE 0.6 mg/dL (0.6-1.3); POTASSIUM 4.4 mmol/L (3.5-5.1)
[2020-03-31 14:00] LABS: EOSINOPHILS # (AUTO) 0.1 K/uL (0.0-0.7); HEMATOCRIT 35.8 % (31.2-41.9); MONOCYTES # (AUTO) 0.6 K/uL (2.0-10.0); RED BLOOD CELL COUNT(AUTO) 3.82 MIL/uL (3.63-4.92)
[2020-03-31 14:10] LABS: BASOPHILS % (AUTO) 0.4 % (0.0-2.0); EOSINOPHILS % (AUTO) 2.3 % (0.0-7.0); HEMOGLOBIN 11.6 g/dL (10.9-14.3); LYMPHOCYTES # (AUTO) 1.2 K/uL (20.0-40.0); LYMPHOCYTES % (AUTO) 19.4 % (20.5-51.5); MEAN CORPUSCULAR HEMOGLOBIN 30.3 uug (24.7-32.8); MEAN CORPUSCULAR HGB CONC 32 g/dL (32.3-35.6); MEAN CORPUSCULAR VOLUME 93.6 fL (75.5-95.3); MONOCYTES % (AUTO) 10.5 % (0.0-11.0); NEUTROPHILS % (AUTO) 67.4 % (38.5-71.5); PLATELET COUNT (AUTO) 87 K/uL (179-408)
--- NOTE | 2020-03-31 14:14 | NUR ---
INTERDISCIPLINARY PLAN OF CARE CONFERENCE was held today. Patient's daughter was not available to participate in the meeting. Dr. Murguia and the Interdisciplinary team reviewed the current plan of care in detail. RN reported on the patient's medical condition, ongoing wound treatment, and findings of recent labs. No major changes in patient's condition were reported by RN or by the other disciplines. See RN IDT conference notes. See also all other disciplines IDT notes and physician's progress notes for additional details.
[2020-03-31 18:58] LABS: EOSINOPHILS % (MANUAL) 3 % (0-8); LYMPHOCYTES % (MANUAL) 28 % (20-40); MONOCYTES % (MANUAL) 6 % (2-10); NEUTROPHILS % (MANUAL) 63 % (42-75)
[2020-03-31 20:00] VITALS: BP 123/63
[2020-03-31] MEDS: ACIDOPHILUS/BULGARICUS CHEW TAB GT SCH (21:33)
[2020-03-31] MEDS: ASCORBIC ACID 500 MG TABLET PO SCH (21:35)
[2020-04-01] MEDS: POLYVINYL ALCOHOL OPHT DROPS 15 ML BOTTLE EACHEYE SCH ×3 (05:48→21:34)
[2020-04-01] MEDS: ARGININE/GLUTAMINE/CALCIUM BMB 1 EACH POWD.PACK GT SCH ×2 (05:48→18:33)
[2020-04-01] MEDS: PROTEIN SUPPLEMENT (PROSTAT) 30 ML LIQUID GT SCH ×3 (05:48→21:34)
[2020-04-01 07:30] VITALS: BP 122/63
--- NOTE | 2020-04-01 08:05 | NUR ---
DR. MART WAS PAGED D/T PT. WITH ORAL TEMP.101F(SEE RECORD)
[2020-04-01] MEDS: levETIRAcetam 500 MG/5 ML LIQUID UDC GT SCH ×2 (08:30→21:29)
--- NOTE | 2020-04-01 08:34 | NUR ---
DR. VALLE WAS CALLED RE:TEMP.101F.(SEE RECORDS).
[2020-04-01] MEDS: DIGOXIN 125 MCG TABLET GT SCH (08:35)
[2020-04-01] MEDS: FUROSEMIDE 20 MG TABLET GT SCH (08:36)
[2020-04-01] MEDS: FAMOTIDINE 20 MG TABLET GT SCH ×2 (08:37→21:29)
[2020-04-01] MEDS: POTASSIUM CHLORIDE 40 MEQ/30 ML LIQUID UDC GT SCH (08:38)
[2020-04-01] MEDS: NORMAL SALINE NASAL 45 ML BOTTLE NS SCH (08:49)
[2020-04-01] MEDS: TRIAMCINOLONE ACET 0.1% CREAM 15 GM TUBE TOP SCH ×2 (08:49→21:33)
[2020-04-01] MEDS: NEOMY/BACITRAC/POLYMI OINT 28.35 GM TUBE TOP SCH ×2 (08:50→21:33)
[2020-04-01] MEDS: Z GUARD REMEDY PASTE 57 GM TUBE TOP SCH ×2 (08:50→21:33)
[2020-04-01] MEDS: NYSTATIN CREAM 30 GM TUBE TOP SCH ×2 (08:50→21:33)
[2020-04-01] MEDS: THERAHONEY GEL 1.5 OZ TUBE TOP SCH ×2 (08:50→21:33)
[2020-04-01] MEDS: HYDROGEN PEROXIDE 3% 118 ML BOTTLE TP SCH ×2 (08:51→21:14)
[2020-04-01] MEDS: SODIUM HYPOCHLORITE 0.125% (QUARTER STRENGTH) 473 ML BOTTLE TP SCH ×2 (08:51→21:33)
--- NOTE | 2020-04-01 08:59 | NUR ---
ROOPA Dixon CALLED BACK AND AWARE OF FEVER WITH NEW ORDERS CARRIED OUT.
--- NOTE | 2020-04-01 09:57 | NUR ---
URINE SAMPLE COLLECTED AND SENT TO THE LAB.
--- NOTE | 2020-04-01 10:02 | NUR ---
BED BATH GIVEN,COOLING MEASURES APPLIED ,RECTAL TEMP. CHECKED AND 101.6F.FREQUENT VISUAL CHECKS DONE FOR COMFORT.
--- NOTE | 2020-04-01 10:58 | NUR ---
DR TADEO CALLED FOR CONSULTATION F/U.
[2020-04-01 11:13] LABS: *BILIRUBIN,URIN NEGATIVE (NEGATIVE); *BLOOD, URINE NEGATIVE (NEGATIVE); *CLARITY,URINE CLEAR (CLEAR); *COLOR,URINE YELLOW (YELLOW); *KETONES,URINE NEGATIVE (NEGATIVE); LEUKOCYTE ESTERASE ,URINE NEGATIVE (NEGATIVE); NITRITE, URINE NEGATIVE (NEGATIVE); UGLUCOSE NEGATIVE (NEGATIVE)
[2020-04-01 11:53] LABS: BILIRUBIN,TOTAL 0.8 mg/dL (0.2-1.0); CREATININE 0.7 mg/dL (0.6-1.3); POTASSIUM 4.2 mmol/L (3.5-5.1); TOTAL PROTEIN, SERUM 7.9 g/dL (6.4-8.2)
[2020-04-01 12:25] LABS: BASOPHILS % (AUTO) 0.4 % (0.0-2.0); EOSINOPHILS % (AUTO) 0.2 % (0.0-7.0); HEMATOCRIT 37.1 % (31.2-41.9); LYMPHOCYTES # (AUTO) 0.8 K/uL (20.0-40.0); LYMPHOCYTES % (AUTO) 7.3 % (20.5-51.5); MEAN CORPUSCULAR HEMOGLOBIN 30.3 uug (24.7-32.8); MEAN CORPUSCULAR HGB CONC 32 g/dL (32.3-35.6); MEAN CORPUSCULAR VOLUME 93.7 fL (75.5-95.3); MONOCYTES # (AUTO) 0.8 K/uL (2.0-10.0); MONOCYTES % (AUTO) 7.1 % (0.0-11.0); NEUTROPHILS # (AUTO) 9.8 K/uL (1.8-8.9); PLATELET COUNT (AUTO) 98 K/uL (179-408); RED BLOOD CELL COUNT(AUTO) 3.96 MIL/uL (3.63-4.92); WHITE BLOOD COUNT (AUTO) 11.6 K/uL (3.8-11.8)
[2020-04-01] MEDS: ACETAMINOPHEN 650 MG/20.3 ML LIQUID UDC GT PRN (13:48)
--- NOTE | 2020-04-01 13:52 | NUR ---
Dr. Huerta was called again and the management professionals service stated that his n.p will be there to evaluate pt.
--- NOTE | 2020-04-01 14:00 | NUR ---
DR. TADEO CALLED AGAIN AND N.P WILL COME AND ASSESS PT.ROOPA MUNIZ AWARE OF PRELIMINARY LAB RESULTS AND NNO .
[2020-04-01 15:40] LABS: BACTERIA,URINE FEW /HPF (NONE SEEN); RBC,URINE 0-3 /HPF (0-3); SQUAMOUS EPITHELIAL CELL,UR FEW /HPF (NONE SEEN); WBC,URINE 0-3 /HPF (0-3)
[2020-04-01 17:57] LABS: EOSINOPHILS % (MANUAL) 1 % (0-8); LYMPHOCYTES % (MANUAL) 20 % (20-40); MONOCYTES % (MANUAL) 14 % (2-10); NEUTROPHILS % (MANUAL) 65 % (42-75)
[2020-04-01 20:00] VITALS: BP 123/66
[2020-04-01] MEDS: ACIDOPHILUS/BULGARICUS CHEW TAB GT SCH (21:28)
[2020-04-01] MEDS: ASCORBIC ACID 500 MG TABLET PO SCH (21:29)
[2020-04-02] MEDS: POLYVINYL ALCOHOL OPHT DROPS 15 ML BOTTLE EACHEYE SCH ×3 (05:09→21:44)
[2020-04-02] MEDS: ARGININE/GLUTAMINE/CALCIUM BMB 1 EACH POWD.PACK GT SCH ×2 (05:10→17:38)
[2020-04-02] MEDS: PROTEIN SUPPLEMENT (PROSTAT) 30 ML LIQUID GT SCH ×3 (05:10→21:44)
[2020-04-02 07:46] VITALS: BP 116/98
[2020-04-02] MEDS: FUROSEMIDE 20 MG TABLET GT SCH (09:00)
[2020-04-02] MEDS: SODIUM HYPOCHLORITE 0.125% (QUARTER STRENGTH) 473 ML BOTTLE TP SCH ×2 (09:00→21:43)
[2020-04-02] MEDS: HYDROGEN PEROXIDE 3% 118 ML BOTTLE TP SCH ×2 (09:00→21:35)
[2020-04-02] MEDS: TRIAMCINOLONE ACET 0.1% CREAM 15 GM TUBE TOP SCH ×2 (09:00→21:43)
[2020-04-02] MEDS: levETIRAcetam 500 MG/5 ML LIQUID UDC GT SCH ×2 (09:00→21:41)
[2020-04-02] MEDS: Z GUARD REMEDY PASTE 57 GM TUBE TOP SCH ×2 (09:00→21:43)
[2020-04-02] MEDS: NYSTATIN CREAM 30 GM TUBE TOP SCH ×2 (09:00→21:43)
[2020-04-02] MEDS: NEOMY/BACITRAC/POLYMI OINT 28.35 GM TUBE TOP SCH ×2 (09:00→21:43)
[2020-04-02] MEDS: THERAHONEY GEL 1.5 OZ TUBE TOP SCH ×2 (09:00→21:43)
[2020-04-02] MEDS: DIGOXIN 125 MCG TABLET GT SCH (09:00)
[2020-04-02] MEDS: FAMOTIDINE 20 MG TABLET GT SCH ×2 (09:00→21:42)
[2020-04-02] MEDS: NORMAL SALINE NASAL 45 ML BOTTLE NS SCH (09:00)
[2020-04-02] MEDS: POTASSIUM CHLORIDE 40 MEQ/30 ML LIQUID UDC GT SCH (09:00)
--- NOTE | 2020-04-02 11:52 | NUR ---
Spoke with Pt's daughter Sheeba Bobo. Verbal consent given by Sheeba Bobo for patient to receive COVID 19 Vaccine.
[2020-04-02 20:00] VITALS: BP 142/71
[2020-04-02] MEDS: ACIDOPHILUS/BULGARICUS CHEW TAB GT SCH (21:39)
[2020-04-02] MEDS: CEFEPIME HCL 1 G in IV DEXTROSE 5% 50 ML IV SCH (21:42)
[2020-04-02] MEDS: ASCORBIC ACID 500 MG TABLET PO SCH (21:43)
[2020-04-02] MEDS: ACETAMINOPHEN 650 MG/20 ML UDC- SA PATIENTS-FEVER ONLY GT PRN (21:55)
--- NOTE | 2020-04-03 02:40 | NUR ---
started on vancomycin 1gm iv q 18hours and cefepime 1gm iv q12hrs for fever, no adverse reaction noted, heplock at left forearm patent,temp- 101.6@ 2000, tylenol given, 2200-99.4, thick yellow secretion, repositioned.
[2020-04-03] MEDS: PROTEIN SUPPLEMENT (PROSTAT) 30 ML LIQUID GT SCH ×3 (05:26→21:26)
[2020-04-03] MEDS: POLYVINYL ALCOHOL OPHT DROPS 15 ML BOTTLE EACHEYE SCH ×3 (05:26→21:26)
[2020-04-03] MEDS: ARGININE/GLUTAMINE/CALCIUM BMB 1 EACH POWD.PACK GT SCH ×2 (05:26→17:14)
[2020-04-03 08:02] VITALS: BP_SYST 130
[2020-04-03 08:03] VITALS: BP_DIAS 59
[2020-04-03] MEDS: HYDROGEN PEROXIDE 3% 118 ML BOTTLE TP SCH ×2 (09:00→21:32)
[2020-04-03] MEDS: CEFEPIME HCL 1 G in IV DEXTROSE 5% 50 ML IV SCH ×2 (09:20→20:49)
[2020-04-03] MEDS: levETIRAcetam 500 MG/5 ML LIQUID UDC GT SCH ×2 (09:50→20:37)
[2020-04-03] MEDS: NORMAL SALINE NASAL 45 ML BOTTLE NS SCH (09:50)
[2020-04-03] MEDS: FUROSEMIDE 20 MG TABLET GT SCH (09:50)
[2020-04-03] MEDS: DIGOXIN 125 MCG TABLET GT SCH (09:50)
[2020-04-03] MEDS: FAMOTIDINE 20 MG TABLET GT SCH ×2 (09:50→20:37)
[2020-04-03] MEDS: POTASSIUM CHLORIDE 40 MEQ/30 ML LIQUID UDC GT SCH (09:50)
[2020-04-03] MEDS: THERAHONEY GEL 1.5 OZ TUBE TOP SCH ×2 (09:51→20:38)
[2020-04-03] MEDS: Z GUARD REMEDY PASTE 57 GM TUBE TOP SCH ×2 (09:51→20:38)
[2020-04-03] MEDS: NYSTATIN CREAM 30 GM TUBE TOP SCH ×2 (09:51→20:38)
[2020-04-03] MEDS: TRIAMCINOLONE ACET 0.1% CREAM 15 GM TUBE TOP SCH ×2 (09:51→20:38)
[2020-04-03] MEDS: SODIUM HYPOCHLORITE 0.125% (QUARTER STRENGTH) 473 ML BOTTLE TP SCH ×2 (09:51→20:38)
[2020-04-03] MEDS: NEOMY/BACITRAC/POLYMI OINT 28.35 GM TUBE TOP SCH ×2 (09:51→20:38)
[2020-04-03 14:00] LABS: CREATININE 0.6 mg/dL (0.6-1.3); POTASSIUM 4.2 mmol/L (3.5-5.1)
[2020-04-03] MEDS: VANCOMYCIN IV 1,000 MG in IV DEXTROSE 5% 250 ML IV SCH (15:20)
[2020-04-03 20:00] VITALS: BP 124/58
[2020-04-03] MEDS: ACIDOPHILUS/BULGARICUS CHEW TAB GT SCH (20:37)
[2020-04-03] MEDS: ASCORBIC ACID 500 MG TABLET PO SCH (20:37)
[2020-04-04] MEDS: POLYVINYL ALCOHOL OPHT DROPS 15 ML BOTTLE EACHEYE SCH ×3 (05:16→21:40)
[2020-04-04] MEDS: ARGININE/GLUTAMINE/CALCIUM BMB 1 EACH POWD.PACK GT SCH ×2 (05:16→17:39)
[2020-04-04] MEDS: GLUCERNA 1.2 1000ML LIQUID GT PRN (05:17)
[2020-04-04] MEDS: PROTEIN SUPPLEMENT (PROSTAT) 30 ML LIQUID GT SCH ×3 (05:17→21:40)
[2020-04-04] MEDS: HYDROGEN PEROXIDE 3% 118 ML BOTTLE TP SCH ×2 (07:00→21:05)
[2020-04-04 07:59] VITALS: BP 132/70
[2020-04-04] MEDS: DIGOXIN 125 MCG TABLET GT SCH (08:15)
[2020-04-04] MEDS: FUROSEMIDE 20 MG TABLET GT SCH (08:15)
[2020-04-04] MEDS: levETIRAcetam 500 MG/5 ML LIQUID UDC GT SCH ×2 (08:15→21:39)
[2020-04-04] MEDS: POTASSIUM CHLORIDE 40 MEQ/30 ML LIQUID UDC GT SCH (08:16)
[2020-04-04] MEDS: FAMOTIDINE 20 MG TABLET GT SCH ×2 (08:16→21:39)
[2020-04-04] MEDS: Z GUARD REMEDY PASTE 57 GM TUBE TOP SCH ×2 (08:17→21:39)
[2020-04-04] MEDS: NYSTATIN CREAM 30 GM TUBE TOP SCH ×2 (08:17→21:39)
[2020-04-04] MEDS: TRIAMCINOLONE ACET 0.1% CREAM 15 GM TUBE TOP SCH ×2 (08:17→21:39)
[2020-04-04] MEDS: NORMAL SALINE NASAL 45 ML BOTTLE NS SCH (08:17)
[2020-04-04] MEDS: NEOMY/BACITRAC/POLYMI OINT 28.35 GM TUBE TOP SCH ×2 (08:18→21:39)
[2020-04-04] MEDS: SODIUM HYPOCHLORITE 0.125% (QUARTER STRENGTH) 473 ML BOTTLE TP SCH ×2 (08:18→21:39)
[2020-04-04] MEDS: THERAHONEY GEL 1.5 OZ TUBE TOP SCH ×2 (08:18→21:39)
[2020-04-04] MEDS: VANCOMYCIN IV 1,000 MG in IV DEXTROSE 5% 250 ML IV SCH ×2 (09:37→13:14)
[2020-04-04] MEDS: CEFEPIME HCL 1 G in IV DEXTROSE 5% 50 ML IV SCH ×2 (09:37→21:27)
--- NOTE | 2020-04-04 09:40 | NUR ---
NEW PERIPHERAL LINE # 22 PLACED ON LEFT HAND WITH GOOD BLOOD RETURN .
--- NOTE | 2020-04-04 09:50 | NUR ---
[facility] PHARMACIST AWARE THAT IF TODAY'S VANCOMYCIN WAS SCHEDULE TO BE GIVEN AT 0900 AND A TROUGH CAN NOT BE SCHEDULE AT 0700.
--- NOTE | 2020-04-04 09:50 | NUR ---
PER [facility] VANCOMYCIN TROUGH ORDERED AT 0700 TODAY AND THE PREVIOUS ONE ON 04/05/20 AT 0200 TO BE CANCELLED ,NAVAL ENGINEER UNABLE TO COME AND DRAW BLOOD,PER PHARMACIST INDICATION DO NOT ADMIN. VANCOMYCIN TILL BLOOD FOR TROUGH IS DONE.
--- NOTE | 2020-04-04 11:30 | NUR ---
NEW ORDER CARRIED OUT FOR CLARIFICATION FOR VANCOMYCIN PER PHARMACY PROTOCOL FROM [facility]. N.P (I.D)
--- NOTE | 2020-04-04 11:30 | NUR ---
NEW ORDER CARRIED OUT FROM .
[2020-04-04 12:12] LABS: CREATININE 0.6 mg/dL (0.6-1.3); POTASSIUM 3.9 mmol/L (3.5-5.1); VANCOMYCIN,TROUGH 4.5 ug/mL (12.0-20.0)
--- NOTE | 2020-04-04 12:30 | NUR ---
VANCOMYCIN LEVEL 4.5 NOTIFIED TO [facility] PHARMACIST EDUAR AND PER PHARMACY PROTOCOL NEW ORDER FROM DR. TADEO CARRIED OUT.
--- NOTE | 2020-04-04 14:44 | NUR ---
SPUTUM SPECIMEN COLLECTED FOR C&S AND SENT TO LAB.
[2020-04-04] MEDS: ASCORBIC ACID 500 MG TABLET PO SCH (21:39)
[2020-04-04] MEDS: ACIDOPHILUS/BULGARICUS CHEW TAB GT SCH (21:39)
[2020-04-04 21:44] VITALS: BP 125/68
[2020-04-05] MEDS: VANCOMYCIN IV 1,000 MG in IV DEXTROSE 5% 250 ML IV SCH ×2 (01:01→13:58)
--- NOTE | 2020-04-05 01:02 | NUR ---
Afebrile, on IV Cefepime and Vancomycin for fever, no adverse reactions noted. Trach intact and patent, connected to vent, no respiratory distress noted, 02 sat is 99%, gt feeding tolerating well, no residuals noted. Voiding freely with yellow urine, good jaswant care rendered, turned and repositioned, kept clean and comfortable.
[2020-04-05] MEDS: POLYVINYL ALCOHOL OPHT DROPS 15 ML BOTTLE EACHEYE SCH ×3 (05:15→22:33)
[2020-04-05] MEDS: ARGININE/GLUTAMINE/CALCIUM BMB 1 EACH POWD.PACK GT SCH ×2 (05:15→17:42)
[2020-04-05] MEDS: PROTEIN SUPPLEMENT (PROSTAT) 30 ML LIQUID GT SCH ×3 (05:15→22:33)
[2020-04-05] MEDS: HYDROGEN PEROXIDE 3% 118 ML BOTTLE TP SCH ×2 (07:39→21:32)
[2020-04-05 07:41] VITALS: BP 111/66
[2020-04-05] MEDS: levETIRAcetam 500 MG/5 ML LIQUID UDC GT SCH ×2 (08:01→20:20)
[2020-04-05] MEDS: NORMAL SALINE NASAL 45 ML BOTTLE NS SCH (08:03)
[2020-04-05] MEDS: FAMOTIDINE 20 MG TABLET GT SCH ×2 (08:03→20:20)
[2020-04-05] MEDS: DIGOXIN 125 MCG TABLET GT SCH (08:03)
[2020-04-05] MEDS: POTASSIUM CHLORIDE 40 MEQ/30 ML LIQUID UDC GT SCH (08:03)
[2020-04-05] MEDS: FUROSEMIDE 20 MG TABLET GT SCH (08:03)
[2020-04-05] MEDS: NEOMY/BACITRAC/POLYMI OINT 28.35 GM TUBE TOP SCH ×2 (08:04→20:21)
[2020-04-05] MEDS: TRIAMCINOLONE ACET 0.1% CREAM 15 GM TUBE TOP SCH ×2 (08:04→20:20)
[2020-04-05] MEDS: NYSTATIN CREAM 30 GM TUBE TOP SCH ×2 (08:04→20:21)
[2020-04-05] MEDS: SODIUM HYPOCHLORITE 0.125% (QUARTER STRENGTH) 473 ML BOTTLE TP SCH ×2 (08:04→20:21)
[2020-04-05] MEDS: Z GUARD REMEDY PASTE 57 GM TUBE TOP SCH ×2 (08:04→20:21)
[2020-04-05] MEDS: THERAHONEY GEL 1.5 OZ TUBE TOP SCH ×2 (08:04→20:21)
[2020-04-05] MEDS: CEFEPIME HCL 1 G in IV DEXTROSE 5% 50 ML IV SCH ×2 (09:58→20:20)
[2020-04-05 10:03] LABS: CARBON DIOXIDE 34 mmol/L (21-32); CHLORIDE 106 mmol/L (98-107); CREATININE 0.5 mg/dL (0.6-1.3); GLUCOSE 121 mg/dL (74-106); POTASSIUM 4.1 mmol/L (3.5-5.1); UREA NITROGEN, BLOOD 33 mg/dL (7-18)
--- NOTE | 2020-04-05 12:17 | NUR ---
PT'S DTR. HARLEY AWARE THAT PT. IS NEGATIVE FOR COVID 19 TEST FROM 04/01/20.
--- NOTE | 2020-04-05 13:56 | NUR ---
[facility] VANCOMYCIN TROUGH WAS RESCHEDULE FOR TOMORROW AT 1200 AND OK TO CONTINUE ADMIN OF 1 PM. DOSE.
[2020-04-05] MEDS: ASCORBIC ACID 500 MG TABLET PO SCH (20:20)
[2020-04-05] MEDS: ACIDOPHILUS/BULGARICUS CHEW TAB GT SCH (20:20)
[2020-04-05 22:19] VITALS: BP 103/64
[2020-04-06] MEDS: VANCOMYCIN IV 1,000 MG in IV DEXTROSE 5% 250 ML IV SCH ×2 (01:59→13:14)
[2020-04-06] MEDS: POLYVINYL ALCOHOL OPHT DROPS 15 ML BOTTLE EACHEYE SCH ×3 (05:44→22:07)
[2020-04-06] MEDS: ARGININE/GLUTAMINE/CALCIUM BMB 1 EACH POWD.PACK GT SCH ×2 (05:44→17:41)
[2020-04-06] MEDS: PROTEIN SUPPLEMENT (PROSTAT) 30 ML LIQUID GT SCH ×3 (05:45→22:07)
[2020-04-06 07:28] VITALS: BP 125/67
[2020-04-06] MEDS: levETIRAcetam 500 MG/5 ML LIQUID UDC GT SCH ×2 (08:35→21:34)
[2020-04-06] MEDS: FAMOTIDINE 20 MG TABLET GT SCH ×2 (08:36→21:34)
[2020-04-06] MEDS: FUROSEMIDE 20 MG TABLET GT SCH (08:36)
[2020-04-06] MEDS: DIGOXIN 125 MCG TABLET GT SCH (08:36)
[2020-04-06] MEDS: POTASSIUM CHLORIDE 40 MEQ/30 ML LIQUID UDC GT SCH (08:36)
[2020-04-06] MEDS: Z GUARD REMEDY PASTE 57 GM TUBE TOP SCH ×2 (08:37→21:34)
[2020-04-06] MEDS: NYSTATIN CREAM 30 GM TUBE TOP SCH ×2 (08:37→21:34)
[2020-04-06] MEDS: THERAHONEY GEL 1.5 OZ TUBE TOP SCH ×2 (08:37→21:34)
[2020-04-06] MEDS: NEOMY/BACITRAC/POLYMI OINT 28.35 GM TUBE TOP SCH ×2 (08:37→21:35)
[2020-04-06] MEDS: NORMAL SALINE NASAL 45 ML BOTTLE NS SCH (08:37)
[2020-04-06] MEDS: SODIUM HYPOCHLORITE 0.125% (QUARTER STRENGTH) 473 ML BOTTLE TP SCH ×2 (08:37→21:35)
[2020-04-06] MEDS: TRIAMCINOLONE ACET 0.1% CREAM 15 GM TUBE TOP SCH ×2 (08:37→21:34)
[2020-04-06 09:19] LABS: BASOPHILS % (AUTO) 0.6 % (0.0-2.0); EOSINOPHILS # (AUTO) 0.2 K/uL (0.0-0.7); EOSINOPHILS % (AUTO) 5.4 % (0.0-7.0); HEMATOCRIT 32.5 % (31.2-41.9); HEMOGLOBIN 10.7 g/dL (10.9-14.3); LYMPHOCYTES % (AUTO) 26.7 % (20.5-51.5); MEAN CORPUSCULAR HEMOGLOBIN 30.3 uug (24.7-32.8); MEAN CORPUSCULAR HGB CONC 33 g/dL (32.3-35.6); MEAN CORPUSCULAR VOLUME 92.2 fL (75.5-95.3); MONOCYTES # (AUTO) 0.6 K/uL (2.0-10.0); MONOCYTES % (AUTO) 14.8 % (0.0-11.0); NEUTROPHILS % (AUTO) 52.5 % (38.5-71.5); PLATELET COUNT (AUTO) 116 K/uL (179-408); RED BLOOD CELL COUNT(AUTO) 3.53 MIL/uL (3.63-4.92); WHITE BLOOD COUNT (AUTO) 3.9 K/uL (3.8-11.8)
[2020-04-06] MEDS: CEFEPIME HCL 1 G in IV DEXTROSE 5% 50 ML IV SCH ×2 (09:22→21:06)
[2020-04-06 09:26] LABS: CREATININE 0.6 mg/dL (0.6-1.3); POTASSIUM 3.7 mmol/L (3.5-5.1)
[2020-04-06] MEDS: HYDROGEN PEROXIDE 3% 118 ML BOTTLE TP SCH ×2 (09:54→20:55)
--- NOTE | 2020-04-06 13:00 | NUR ---
SEEN BY ROOPA Dixon AND WITH NNO.
[2020-04-06] MEDS: GLUCERNA 1.2 1000ML LIQUID GT PRN (17:42)
[2020-04-06 20:39] VITALS: BP 113/56
[2020-04-06] MEDS: ACIDOPHILUS/BULGARICUS CHEW TAB GT SCH (21:32)
[2020-04-06] MEDS: ASCORBIC ACID 500 MG TABLET PO SCH (21:34)
[2020-04-07] MEDS: VANCOMYCIN IV 1,000 MG in IV DEXTROSE 5% 250 ML IV SCH ×2 (00:59→13:51)
[2020-04-07] MEDS: PROTEIN SUPPLEMENT (PROSTAT) 30 ML LIQUID GT SCH ×3 (05:55→21:35)
[2020-04-07] MEDS: ARGININE/GLUTAMINE/CALCIUM BMB 1 EACH POWD.PACK GT SCH ×2 (05:55→18:18)
[2020-04-07] MEDS: POLYVINYL ALCOHOL OPHT DROPS 15 ML BOTTLE EACHEYE SCH ×3 (05:55→21:35)
[2020-04-07] MEDS: HYDROGEN PEROXIDE 3% 118 ML BOTTLE TP SCH ×2 (07:17→21:44)
[2020-04-07 07:29] VITALS: BP 124/64
[2020-04-07 08:07] LABS: CREATININE 0.7 mg/dL (0.6-1.3); POTASSIUM 3.9 mmol/L (3.5-5.1)
[2020-04-07] MEDS: levETIRAcetam 500 MG/5 ML LIQUID UDC GT SCH ×2 (09:11→21:33)
[2020-04-07] MEDS: POTASSIUM CHLORIDE 40 MEQ/30 ML LIQUID UDC GT SCH (09:12)
[2020-04-07] MEDS: FAMOTIDINE 20 MG TABLET GT SCH ×2 (09:12→21:33)
[2020-04-07] MEDS: DIGOXIN 125 MCG TABLET GT SCH (09:12)
[2020-04-07] MEDS: CEFEPIME HCL 1 G in IV DEXTROSE 5% 50 ML IV SCH (09:12)
[2020-04-07] MEDS: TRIAMCINOLONE ACET 0.1% CREAM 15 GM TUBE TOP SCH ×2 (09:12→21:34)
[2020-04-07] MEDS: FUROSEMIDE 20 MG TABLET GT SCH (09:12)
[2020-04-07] MEDS: NORMAL SALINE NASAL 45 ML BOTTLE NS SCH (09:12)
[2020-04-07] MEDS: Z GUARD REMEDY PASTE 57 GM TUBE TOP SCH ×2 (09:13→21:34)
[2020-04-07] MEDS: THERAHONEY GEL 1.5 OZ TUBE TOP SCH ×2 (09:13→21:34)
[2020-04-07] MEDS: SODIUM HYPOCHLORITE 0.125% (QUARTER STRENGTH) 473 ML BOTTLE TP SCH ×2 (09:13→21:35)
[2020-04-07] MEDS: NEOMY/BACITRAC/POLYMI OINT 28.35 GM TUBE TOP SCH ×2 (09:13→21:34)
[2020-04-07] MEDS: NYSTATIN CREAM 30 GM TUBE TOP SCH ×2 (09:13→21:34)
--- NOTE | 2020-04-07 19:41 | NUR ---
Continue on Ivatb,no adverse reaction noted,Iv site intact,no s/s of infiltration noted.
[2020-04-07 19:57] VITALS: BP 129/57
[2020-04-07] MEDS: ASCORBIC ACID 500 MG TABLET PO SCH (21:33)
[2020-04-07] MEDS: ACIDOPHILUS/BULGARICUS CHEW TAB GT SCH (21:33)
--- NOTE | 2020-04-07 22:27 | NUR ---
Today is the last day of IV Vancomycin and Maxepime, no adverse reactions noted, afebrile, no signs of any respiratory distress. kept clean and comfortable.
[2020-04-08] MEDS: PROTEIN SUPPLEMENT (PROSTAT) 30 ML LIQUID GT SCH ×3 (05:28→21:52)
[2020-04-08] MEDS: POLYVINYL ALCOHOL OPHT DROPS 15 ML BOTTLE EACHEYE SCH ×3 (05:28→21:52)
[2020-04-08] MEDS: ARGININE/GLUTAMINE/CALCIUM BMB 1 EACH POWD.PACK GT SCH ×2 (05:28→18:00)
[2020-04-08 07:26] VITALS: BP 123/55
[2020-04-08] MEDS: levETIRAcetam 500 MG/5 ML LIQUID UDC GT SCH ×2 (08:17→21:49)
[2020-04-08] MEDS: FUROSEMIDE 20 MG TABLET GT SCH (08:18)
[2020-04-08] MEDS: NYSTATIN CREAM 30 GM TUBE TOP SCH ×2 (08:18→21:51)
[2020-04-08] MEDS: DIGOXIN 125 MCG TABLET GT SCH (08:18)
[2020-04-08] MEDS: TRIAMCINOLONE ACET 0.1% CREAM 15 GM TUBE TOP SCH ×2 (08:18→21:51)
[2020-04-08] MEDS: NORMAL SALINE NASAL 45 ML BOTTLE NS SCH (08:18)
[2020-04-08] MEDS: POTASSIUM CHLORIDE 40 MEQ/30 ML LIQUID UDC GT SCH (08:18)
[2020-04-08] MEDS: FAMOTIDINE 20 MG TABLET GT SCH ×2 (08:18→21:49)
[2020-04-08] MEDS: THERAHONEY GEL 1.5 OZ TUBE TOP SCH ×2 (08:19→21:51)
[2020-04-08] MEDS: Z GUARD REMEDY PASTE 57 GM TUBE TOP SCH ×2 (08:19→21:51)
[2020-04-08] MEDS: SODIUM HYPOCHLORITE 0.125% (QUARTER STRENGTH) 473 ML BOTTLE TP SCH ×2 (08:19→21:51)
[2020-04-08 08:34] LABS: BASOPHILS % (AUTO) 0.9 % (0.0-2.0); EOSINOPHILS # (AUTO) 0.2 K/uL (0.0-0.7); EOSINOPHILS % (AUTO) 5.8 % (0.0-7.0); HEMATOCRIT 31.6 % (31.2-41.9); HEMOGLOBIN 10.6 g/dL (10.9-14.3); LYMPHOCYTES % (AUTO) 27.8 % (20.5-51.5); MEAN CORPUSCULAR HEMOGLOBIN 32.6 uug (24.7-32.8); MEAN CORPUSCULAR HGB CONC 33 g/dL (32.3-35.6); MEAN CORPUSCULAR VOLUME 97.4 fL (75.5-95.3); MONOCYTES # (AUTO) 0.4 K/uL (2.0-10.0); MONOCYTES % (AUTO) 9.6 % (0.0-11.0); NEUTROPHILS % (AUTO) 55.9 % (38.5-71.5); PLATELET COUNT (AUTO) 134 K/uL (179-408); RED BLOOD CELL COUNT(AUTO) 3.25 MIL/uL (3.63-4.92); WHITE BLOOD COUNT (AUTO) 3.7 K/uL (3.8-11.8)
[2020-04-08 08:42] LABS: CREATININE 0.6 mg/dL (0.6-1.3); POTASSIUM 4.1 mmol/L (3.5-5.1)
[2020-04-08] MEDS: HYDROGEN PEROXIDE 3% 118 ML BOTTLE TP SCH ×2 (08:49→21:24)
[2020-04-08 20:29] VITALS: BP 122/61
[2020-04-08] MEDS: ACIDOPHILUS/BULGARICUS CHEW TAB GT SCH (21:47)
[2020-04-08] MEDS: ASCORBIC ACID 500 MG TABLET PO SCH (21:50)
[~2020-04-09] VITALS: Ht 162.6 cm; Wt 82.6 kg
[2020-04-09] MEDS: POLYVINYL ALCOHOL OPHT DROPS 15 ML BOTTLE EACHEYE SCH ×3 (05:02→21:14)
[2020-04-09] MEDS: ARGININE/GLUTAMINE/CALCIUM BMB 1 EACH POWD.PACK GT SCH ×2 (05:02→17:26)
[2020-04-09] MEDS: PROTEIN SUPPLEMENT (PROSTAT) 30 ML LIQUID GT SCH ×3 (05:02→21:14)
[2020-04-09 07:16] LABS: CREATININE 0.6 mg/dL (0.6-1.3); POTASSIUM 3.7 mmol/L (3.5-5.1)
[2020-04-09 08:20] VITALS: BP 119/62
[2020-04-09] MEDS: HYDROGEN PEROXIDE 3% 118 ML BOTTLE TP SCH ×2 (09:25→20:31)
[2020-04-09] MEDS: levETIRAcetam 500 MG/5 ML LIQUID UDC GT SCH ×2 (09:37→21:13)
[2020-04-09] MEDS: FUROSEMIDE 20 MG TABLET GT SCH (09:38)
[2020-04-09] MEDS: DIGOXIN 125 MCG TABLET GT SCH (09:38)
[2020-04-09] MEDS: POTASSIUM CHLORIDE 40 MEQ/30 ML LIQUID UDC GT SCH (09:38)
[2020-04-09] MEDS: FAMOTIDINE 20 MG TABLET GT SCH ×2 (09:38→21:13)
[2020-04-09] MEDS: TRIAMCINOLONE ACET 0.1% CREAM 15 GM TUBE TOP SCH ×2 (09:39→21:14)
[2020-04-09] MEDS: NYSTATIN CREAM 30 GM TUBE TOP SCH ×2 (09:39→21:14)
[2020-04-09] MEDS: NORMAL SALINE NASAL 45 ML BOTTLE NS SCH (09:39)
[2020-04-09] MEDS: THERAHONEY GEL 1.5 OZ TUBE TOP SCH ×2 (09:39→21:14)
[2020-04-09] MEDS: Z GUARD REMEDY PASTE 57 GM TUBE TOP SCH ×2 (09:39→21:14)
[2020-04-09] MEDS: SODIUM HYPOCHLORITE 0.125% (QUARTER STRENGTH) 473 ML BOTTLE TP SCH ×2 (09:40→21:14)
[2020-04-09] MEDS: ASCORBIC ACID 500 MG TABLET PO SCH (21:13)
[2020-04-09] MEDS: ACIDOPHILUS/BULGARICUS CHEW TAB GT SCH (21:13)
[2020-04-09 22:47] VITALS: BP 113/63
--- NOTE | 2020-04-09 23:25 | NUR ---
Patient is afebrile, no signs of any adverse reactions noted from the COVID-19 vaccine. Addendum: 04/09/20 at 2327 by DERIAN MANZANO RN Disregard above notes; patient did not get Covid 19 vaccine yet,WRONG ENTRY.
[~2020-04-09 23:59] MED LIST changes: +ACETAMINOPHEN 650 MG/20.3 ML LIQUID UDC GT PRN; +CEFTRIAXONE /D5W 50ML IVPB **ER PYXIS IV ONE; +CEFTRIAXONE 1 G VIAL ONE; +CEFTRIAXONE 2 G in IV DEXTROSE 5% 100 ML IV SCH; +CLOTRIMAZOLE 1% CREAM 30 GM TUBE ONE; +CLOTRIMAZOLE 1% CREAM 30 GM TUBE TOP PRN; +CLOTRIMAZOLE 1% CREAM 30 GM TUBE TP PRN; +COD LIVER OIL/ZINC OXIDE OINT 113 GM TUBE TP PRN; +DIATR MEGLU/DIATRIZOATE SODIUM 30 ML BOTTLE ONE; +DOSING BY PHARMACY-MD TO SPECIFY MED/ROUTE IV SCH; +FUROSEMIDE 20 MG TABLET PO ONE; +HYDROGEN PEROXIDE 3% 118 ML BOTTLE TP PRN; +INFLUENZA VACCINE 2020-2021 0.5 ML DISP.SYRIN IM ONE; +MAGNESIUM HYDROXIDE 30 ML LIQUID UDC GT PRN; +NEOMY/BACITRAC/POLYMI OINT 28.35 GM TUBE TOP SCH; +NYSTATIN CREAM 30 GM TUBE TOP PRN; +NYSTATIN CREAM 30 GM TUBE TP PRN; +NYSTATIN CREAM 30 GM TUBE TP SCH; +PROPOFOL 1,000 MG/100 ML BOTTLE IV ONE; +SODIUM HYPOCHLORITE 0.125% (QUARTER STRENGTH) 473 ML BOTTLE TP PRN; +SODIUM HYPOCHLORITE 0.125% (QUARTER STRENGTH) 473 ML BOTTLE TP SCH; +THERAHONEY GEL 1.5 OZ TUBE TOP PRN; +TOBRAMYCIN 300 MG INH SCH; +TOBRAMYCIN SULFATE 80 MG/2 ML VIAL NEB ONE; +TRIAMCINOLONE ACET 0.1% CREAM 15 GM TUBE TOP PRN; +TRIAMCINOLONE ACET 0.1% CREAM 15 GM TUBE TP PRN; +TRIAMCINOLONE ACET 0.1% OINT 15 GM TUBE TOP PRN; +TUBERCULIN,PURIF.PROT.DERIV. 5 TU/0.1 ML TEST ID ONE; +VANCOMYCIN 1000 MG VIAL ONE; +VANCOMYCIN HCL 500 MG VIAL ONE; +VANCOMYCIN IV 1,000 MG in IV DEXTROSE 5% 250 ML IV ONE; +VANCOMYCIN IV 1,250 MG in IV DEXTROSE 5% 250 ML IV ONE; +VANCOMYCIN IV 1,250 MG in IV DEXTROSE 5% 250 ML IV SCH; +VANCOMYCIN IV 1,500 MG in IV DEXTROSE 5% 500 ML IV ONE; +VANCOMYCIN IV 750 MG in IV DEXTROSE 5% 250 ML IV SCH; +Z GUARD REMEDY PASTE 57 GM TUBE TOP PRN
[2020-04-10] MEDS: GLUCERNA 1.2 1000ML LIQUID GT PRN (02:13)
[2020-04-10] MEDS: ARGININE/GLUTAMINE/CALCIUM BMB 1 EACH POWD.PACK GT SCH ×2 (05:54→17:19)
[2020-04-10] MEDS: PROTEIN SUPPLEMENT (PROSTAT) 30 ML LIQUID GT SCH ×3 (05:54→22:04)
[2020-04-10] MEDS: POLYVINYL ALCOHOL OPHT DROPS 15 ML BOTTLE EACHEYE SCH ×3 (05:54→22:04)
[2020-04-10] MEDS: HYDROGEN PEROXIDE 3% 118 ML BOTTLE TP SCH ×2 (07:21→21:00)
[2020-04-10 07:42] VITALS: BP 122/60
[2020-04-10] MEDS: NORMAL SALINE NASAL 45 ML BOTTLE NS SCH (08:31)
[2020-04-10] MEDS: NYSTATIN CREAM 30 GM TUBE TOP SCH ×2 (08:31→20:55)
[2020-04-10] MEDS: FAMOTIDINE 20 MG TABLET GT SCH ×2 (08:31→20:55)
[2020-04-10] MEDS: FUROSEMIDE 20 MG TABLET GT SCH (08:31)
[2020-04-10] MEDS: levETIRAcetam 500 MG/5 ML LIQUID UDC GT SCH ×2 (08:31→20:55)
[2020-04-10] MEDS: DIGOXIN 125 MCG TABLET GT SCH (08:31)
[2020-04-10] MEDS: Z GUARD REMEDY PASTE 57 GM TUBE TOP SCH ×2 (08:31→20:55)
[2020-04-10] MEDS: TRIAMCINOLONE ACET 0.1% CREAM 15 GM TUBE TOP SCH ×2 (08:31→20:55)
[2020-04-10] MEDS: POTASSIUM CHLORIDE 40 MEQ/30 ML LIQUID UDC GT SCH (08:31)
[2020-04-10] MEDS: THERAHONEY GEL 1.5 OZ TUBE TOP SCH ×2 (08:32→20:55)
[2020-04-10] MEDS: SODIUM HYPOCHLORITE 0.125% (QUARTER STRENGTH) 473 ML BOTTLE TP SCH ×2 (08:32→20:55)
--- NOTE | 2020-04-10 19:30 | NUR ---
Per nurse, routine tracheostomy replacement was done on the patient today. Blood was noted on patient's suction canister during rounds and some blood tinged aspirate when suctioning, cold lavage was done, no signs of any respiratory distress noted. will continue monitor.
[2020-04-10 20:30] VITALS: BP 118/62
[2020-04-10] MEDS: ACIDOPHILUS/BULGARICUS CHEW TAB GT SCH (20:54)
[2020-04-10] MEDS: ASCORBIC ACID 500 MG TABLET PO SCH (20:55)
[2020-04-11] MEDS: GLUCERNA 1.2 1000ML LIQUID GT PRN (05:00)
[2020-04-11] MEDS: PROTEIN SUPPLEMENT (PROSTAT) 30 ML LIQUID GT SCH ×3 (05:34→21:04)
[2020-04-11] MEDS: POLYVINYL ALCOHOL OPHT DROPS 15 ML BOTTLE EACHEYE SCH ×3 (05:34→21:04)
[2020-04-11] MEDS: ARGININE/GLUTAMINE/CALCIUM BMB 1 EACH POWD.PACK GT SCH ×2 (05:34→17:30)
--- NOTE | 2020-04-11 05:43 | NUR ---
Patient is sleeping comfortably, no bleeding from tracheostomy was noted, no signs of any respiratory distress noted, kept patient clean and comfortable.
[2020-04-11 07:37] VITALS: BP 132/58
[2020-04-11] MEDS: DIGOXIN 125 MCG TABLET GT SCH (08:28)
[2020-04-11] MEDS: NORMAL SALINE NASAL 45 ML BOTTLE NS SCH (08:28)
[2020-04-11] MEDS: POTASSIUM CHLORIDE 40 MEQ/30 ML LIQUID UDC GT SCH (08:28)
[2020-04-11] MEDS: FAMOTIDINE 20 MG TABLET GT SCH ×2 (08:28→20:33)
[2020-04-11] MEDS: levETIRAcetam 500 MG/5 ML LIQUID UDC GT SCH ×2 (08:28→20:31)
[2020-04-11] MEDS: FUROSEMIDE 20 MG TABLET GT SCH (08:28)
[2020-04-11] MEDS: ACETAMINOPHEN 650 MG/20.3 ML LIQUID UDC GT PRN (08:30)
[2020-04-11] MEDS: HYDROGEN PEROXIDE 3% 118 ML BOTTLE TP SCH ×2 (08:30→21:03)
[2020-04-11] MEDS: NYSTATIN CREAM 30 GM TUBE TOP SCH ×2 (09:22→20:34)
[2020-04-11] MEDS: SODIUM HYPOCHLORITE 0.125% (QUARTER STRENGTH) 473 ML BOTTLE TP SCH ×2 (09:22→20:34)
[2020-04-11] MEDS: TRIAMCINOLONE ACET 0.1% CREAM 15 GM TUBE TOP SCH ×2 (09:22→20:33)
[2020-04-11] MEDS: Z GUARD REMEDY PASTE 57 GM TUBE TOP SCH ×2 (09:23→20:34)
[2020-04-11] MEDS: THERAHONEY GEL 1.5 OZ TUBE TOP SCH ×2 (09:23→20:34)
[2020-04-11 20:00] VITALS: BP 130/60
[2020-04-11] MEDS: ACIDOPHILUS/BULGARICUS CHEW TAB GT SCH (20:31)
[2020-04-11] MEDS: ASCORBIC ACID 500 MG TABLET PO SCH (20:33)
[2020-04-12] MEDS: POLYVINYL ALCOHOL OPHT DROPS 15 ML BOTTLE EACHEYE SCH ×3 (05:30→22:08)
[2020-04-12] MEDS: PROTEIN SUPPLEMENT (PROSTAT) 30 ML LIQUID GT SCH ×3 (05:31→22:08)
[2020-04-12] MEDS: ARGININE/GLUTAMINE/CALCIUM BMB 1 EACH POWD.PACK GT SCH ×2 (05:31→17:32)
[2020-04-12 07:38] VITALS: BP 140/57
[2020-04-12] MEDS: POTASSIUM CHLORIDE 40 MEQ/30 ML LIQUID UDC GT SCH (08:38)
[2020-04-12] MEDS: NORMAL SALINE NASAL 45 ML BOTTLE NS SCH (08:38)
[2020-04-12] MEDS: FUROSEMIDE 20 MG TABLET GT SCH (08:38)
[2020-04-12] MEDS: levETIRAcetam 500 MG/5 ML LIQUID UDC GT SCH ×2 (08:38→20:28)
[2020-04-12] MEDS: FAMOTIDINE 20 MG TABLET GT SCH ×2 (08:38→20:28)
[2020-04-12] MEDS: DIGOXIN 125 MCG TABLET GT SCH (08:38)
[2020-04-12] MEDS: THERAHONEY GEL 1.5 OZ TUBE TOP SCH ×2 (08:39→20:32)
[2020-04-12] MEDS: NYSTATIN CREAM 30 GM TUBE TOP SCH ×2 (08:39→20:31)
[2020-04-12] MEDS: Z GUARD REMEDY PASTE 57 GM TUBE TOP SCH ×2 (08:39→20:31)
[2020-04-12] MEDS: SODIUM HYPOCHLORITE 0.125% (QUARTER STRENGTH) 473 ML BOTTLE TP SCH ×2 (08:39→20:32)
[2020-04-12] MEDS: TRIAMCINOLONE ACET 0.1% CREAM 15 GM TUBE TOP SCH ×2 (08:39→20:30)
[2020-04-12] MEDS: HYDROGEN PEROXIDE 3% 118 ML BOTTLE TP SCH ×2 (09:00→20:37)
[2020-04-12 19:58] VITALS: BP 137/61
[2020-04-12] MEDS: ASCORBIC ACID 500 MG TABLET PO SCH (20:28)
[2020-04-12] MEDS: ACIDOPHILUS/BULGARICUS CHEW TAB GT SCH (20:28)
[2020-04-13] MEDS: POLYVINYL ALCOHOL OPHT DROPS 15 ML BOTTLE EACHEYE SCH (06:08)
[2020-04-13] MEDS: PROTEIN SUPPLEMENT (PROSTAT) 30 ML LIQUID GT SCH (06:09)
[2020-04-13] MEDS: ARGININE/GLUTAMINE/CALCIUM BMB 1 EACH POWD.PACK GT SCH (06:09)
== END | disposition still patient (30) | DRG 951 ==
LOC: SA 04-10
PROVIDERS: ADMIT Internal Medicine Nephrology; ATTEND Internal Medicine Nephrology
PROC: 5A1955Z Respiratory Ventilation, Greater than 96 Consecutive Hours (ICD-10-PCS; principal; 2019-04-10)
PROC: 0KBN0ZZ Excision of Right Hip Muscle, Open Approach (ICD-10-PCS; 2019-08-29)
PROC: 0KBP0ZZ Excision of Left Hip Muscle, Open Approach (ICD-10-PCS; 2019-08-29)
PROC: 05H933Z Insertion of Infusion Device into Right Brachial Vein, Percutaneous Approach (ICD-10-PCS; 2019-10-26)
PROC: 0KBP0ZZ Excision of Left Hip Muscle, Open Approach (ICD-10-PCS; 2020-02-06)
PROC: 0KBN0ZZ Excision of Right Hip Muscle, Open Approach (ICD-10-PCS; 2020-02-27)
DX: J96.11 Chronic respiratory failure with hypoxia (principal); I21.A1 Myocardial infarction type 2; G93.40 Encephalopathy, unspecified; L89.159 Pressure ulcer of sacral region, unspecified stage; R40.3 Persistent vegetative state; D61.818 Other pancytopenia; E11.22 Type 2 diabetes mellitus with diabetic chronic kidney disease; N18.30 Chronic kidney disease, stage 3 unspecified; I13.0 Hypertensive heart and chronic kidney disease with heart failure and stage 1 through stage 4 chronic kidney disease, or unspecified chronic kidney disease; E87.0 Hyperosmolality and hypernatremia; R13.10 Dysphagia, unspecified; I42.9 Cardiomyopathy, unspecified; I50.42 Chronic combined systolic (congestive) and diastolic (congestive) heart failure; K75.4 Autoimmune hepatitis; Z99.11 Dependence on respirator [ventilator] status; Z93.0 Tracheostomy status; G40.909 Epilepsy, unspecified, not intractable, without status epilepticus; Z93.1 Gastrostomy status; I25.10 Atherosclerotic heart disease of native coronary artery without angina pectoris; J96.22 Acute and chronic respiratory failure with hypercapnia; I34.0 Nonrheumatic mitral (valve) insufficiency; Z95.0 Presence of cardiac pacemaker; Z95.2 Presence of prosthetic heart valve; Z79.01 Long term (current) use of anticoagulants; Z79.899 Other long term (current) drug therapy; Z87.440 Personal history of urinary (tract) infections; Z88.5 Allergy status to narcotic agent; Z95.1 Presence of aortocoronary bypass graft; I69.198 Other sequelae of nontraumatic intracerebral hemorrhage; I25.2 Old myocardial infarction; I48.20 Chronic atrial fibrillation, unspecified; I48.91 Unspecified atrial fibrillation; Z87.01 Personal history of pneumonia (recurrent); N39.0 Urinary tract infection, site not specified; J96.12 Chronic respiratory failure with hypercapnia; Z88.4 Allergy status to anesthetic agent; E66.9 Obesity, unspecified; Z68.31 Body mass index [BMI] 31.0-31.9, adult; M46.28 Osteomyelitis of vertebra, sacral and sacrococcygeal region
CPT/HCPCS: 36415; 70030-TC; 71045; 72220; 73140; 74018; 80299; 83605; 83615; 83735; 84100; 84443; 85025; 85651; 85730; 86140; 86580; 87040; 87070; 87077; 87086; 90686; 94002; 94003; 94664; A4663; C1758; J0692; J0696; J2543; J3260; J3370; J3490; J7060; Q9963; U0003

== ENCOUNTER 2021-01-13 11:48 | Outpatient (CLI) | payer MEDICAID ==
[~2021-01-13 11:48] MED LIST changes: -ACETAMINOPHEN 650 MG/20.3 ML LIQUID UDC GT PRN; -CEFTRIAXONE /D5W 50ML IVPB **ER PYXIS IV ONE; -CEFTRIAXONE 1 G VIAL ONE; -CEFTRIAXONE 2 G in IV DEXTROSE 5% 100 ML IV SCH; -CLOTRIMAZOLE 1% CREAM 30 GM TUBE ONE; -CLOTRIMAZOLE 1% CREAM 30 GM TUBE TOP PRN; -CLOTRIMAZOLE 1% CREAM 30 GM TUBE TP PRN; -COD LIVER OIL/ZINC OXIDE OINT 113 GM TUBE TP PRN; -DIATR MEGLU/DIATRIZOATE SODIUM 30 ML BOTTLE ONE; -DOSING BY PHARMACY-MD TO SPECIFY MED/ROUTE IV SCH; -FUROSEMIDE 20 MG TABLET PO ONE; -HYDROGEN PEROXIDE 3% 118 ML BOTTLE TP PRN; -INFLUENZA VACCINE 2020-2021 0.5 ML DISP.SYRIN IM ONE; -MAGNESIUM HYDROXIDE 30 ML LIQUID UDC GT PRN; -NEOMY/BACITRAC/POLYMI OINT 28.35 GM TUBE TOP SCH; -NYSTATIN CREAM 30 GM TUBE TOP PRN; -NYSTATIN CREAM 30 GM TUBE TP PRN; -NYSTATIN CREAM 30 GM TUBE TP SCH; -PROPOFOL 1,000 MG/100 ML BOTTLE IV ONE; -SODIUM HYPOCHLORITE 0.125% (QUARTER STRENGTH) 473 ML BOTTLE TP PRN; -SODIUM HYPOCHLORITE 0.125% (QUARTER STRENGTH) 473 ML BOTTLE TP SCH; -THERAHONEY GEL 1.5 OZ TUBE TOP PRN; -TOBRAMYCIN 300 MG INH SCH; -TOBRAMYCIN SULFATE 80 MG/2 ML VIAL NEB ONE; -TRIAMCINOLONE ACET 0.1% CREAM 15 GM TUBE TOP PRN; -TRIAMCINOLONE ACET 0.1% CREAM 15 GM TUBE TP PRN; -TRIAMCINOLONE ACET 0.1% OINT 15 GM TUBE TOP PRN; -TUBERCULIN,PURIF.PROT.DERIV. 5 TU/0.1 ML TEST ID ONE; -VANCOMYCIN 1000 MG VIAL ONE; -VANCOMYCIN HCL 500 MG VIAL ONE; -VANCOMYCIN IV 1,000 MG in IV DEXTROSE 5% 250 ML IV ONE; -VANCOMYCIN IV 1,250 MG in IV DEXTROSE 5% 250 ML IV ONE; -VANCOMYCIN IV 1,250 MG in IV DEXTROSE 5% 250 ML IV SCH; -VANCOMYCIN IV 1,500 MG in IV DEXTROSE 5% 500 ML IV ONE; -VANCOMYCIN IV 750 MG in IV DEXTROSE 5% 250 ML IV SCH; -Z GUARD REMEDY PASTE 57 GM TUBE TOP PRN
== END 2021-01-13 23:59 | disposition home or self-care (01) ==
LOC: CT 11:48
PROVIDERS: ATTEND Internal Medicine Nephrology
DX: M86.8X8 Other osteomyelitis, other site (principal); N81.84 Pelvic muscle wasting; M79.89 Other specified soft tissue disorders
CPT/HCPCS: 72192

== ENCOUNTER 2022-04-10 | Inpatient (IN) | payer MEDICAID ==
[~2022-04-10] VITALS: Ht 162.6 cm; Wt 74.4 kg
[2022-04-12] MEDS: GLUCERNA 1.2 1000ML LIQUID GT PRN (05:30)
[2022-04-12] MEDS ORDERED: ACETAMINOPHEN 650 MG/20 ML UDC- SA PATIENTS-FEVER ONLY GT PRN (06:30)
[2022-04-12] MEDS ORDERED: SODIUM HYPOCHLORITE 0.125% (QUARTER STRENGTH) 473 ML BOTTLE TP PRN (06:30)
[2022-04-12] MEDS ORDERED: TRIAMCINOLONE ACET 0.1% CREAM 15 GM TUBE TP PRN (06:30)
[2022-04-12] MEDS ORDERED: MEDIHONEY= THERAHONEY 1.5 OZ TUBE TP PRN (06:30)
[2022-04-12] MEDS ORDERED: HYDROGEN PEROXIDE 3% 118 ML BOTTLE TP PRN (06:30)
[2022-04-12] MEDS ORDERED: NYSTATIN CREAM 30 GM TUBE TP PRN (06:30)
[2022-04-12] MEDS ORDERED: REMEDY ESSENTIAL ZINC PASTE 113 GM TP PRN (06:30)
[2022-04-12 08:00] VITALS: TEMP 98.8
[2022-04-12] MEDS: ACETAMINOPHEN 650 MG/20.3 ML LIQUID UDC GT SCH ×2 (08:30→20:30)
[2022-04-12] MEDS: REMEDY ESSENTIAL ZINC PASTE 113 GM TP SCH ×2 (09:00→21:36)
[2022-04-12] MEDS: SODIUM HYPOCHLORITE 0.125% (QUARTER STRENGTH) 473 ML BOTTLE TP SCH ×2 (09:00→21:36)
[2022-04-12] MEDS: NYSTATIN CREAM 30 GM TUBE TP SCH ×2 (09:00→21:36)
[2022-04-12] MEDS: POTASSIUM CHLORIDE 40 MEQ/30 ML LIQUID UDC GT SCH (09:00)
[2022-04-12] MEDS: DIGOXIN 125 MCG TABLET GT SCH (09:00)
[2022-04-12] MEDS: levETIRAcetam 500 MG/5 ML LIQUID UDC GT SCH ×2 (09:00→21:33)
[2022-04-12] MEDS: MEDIHONEY= THERAHONEY 1.5 OZ TUBE TP SCH ×2 (09:00→21:36)
[2022-04-12] MEDS: TRIAMCINOLONE ACET 0.1% CREAM 15 GM TUBE TP SCH ×2 (09:00→21:36)
[2022-04-12] MEDS: FUROSEMIDE 20 MG TABLET GT SCH (09:00)
[2022-04-12] MEDS: HYDROGEN PEROXIDE 3% 118 ML BOTTLE TP SCH ×2 (09:40→21:03)
[2022-04-12] MEDS: POLYVINYL ALCOHOL OPHT DROPS 15 ML BOTTLE EACHEYE SCH ×2 (14:00→21:36)
[2022-04-12] MEDS: PROTEIN SUPPLEMENT (PROSTAT) 30 ML LIQUID GT SCH ×2 (14:00→21:37)
[2022-04-12] MEDS: ARGININE/GLUTAMINE/CALCIUM BMB 1 EACH POWD.PACK GT SCH (18:58)
[2022-04-12] MEDS: FAMOTIDINE 20 MG TABLET GT SCH (18:58)
[2022-04-12 20:45] VITALS: TEMP 98.6
[2022-04-12] MEDS: ACIDOPHILUS/BULGARICUS CHEW TAB GT SCH (21:33)
[2022-04-12] MEDS: NORMAL SALINE NASAL 45 ML BOTTLE NS SCH (21:34)
[2022-04-12] MEDS: ASCORBIC ACID 500 MG TABLET GT SCH (21:34)
[2022-04-13] MEDS: PROTEIN SUPPLEMENT (PROSTAT) 30 ML LIQUID GT SCH ×3 (05:41→21:01)
[2022-04-13] MEDS: POLYVINYL ALCOHOL OPHT DROPS 15 ML BOTTLE EACHEYE SCH ×3 (05:41→21:01)
[2022-04-13] MEDS: FAMOTIDINE 20 MG TABLET GT SCH ×2 (05:41→18:08)
[2022-04-13] MEDS: ARGININE/GLUTAMINE/CALCIUM BMB 1 EACH POWD.PACK GT SCH ×2 (05:41→18:07)
[2022-04-13] MEDS: HYDROGEN PEROXIDE 3% 118 ML BOTTLE TP SCH ×2 (07:29→20:45)
[2022-04-13 08:00] VITALS: TEMP 97.7
[2022-04-13] MEDS: ACETAMINOPHEN 650 MG/20.3 ML LIQUID UDC GT SCH ×2 (09:22→21:00)
[2022-04-13] MEDS: DIGOXIN 125 MCG TABLET GT SCH (09:22)
[2022-04-13] MEDS: NYSTATIN CREAM 30 GM TUBE TP SCH ×2 (09:29→21:01)
[2022-04-13] MEDS: levETIRAcetam 500 MG/5 ML LIQUID UDC GT SCH ×2 (09:29→21:00)
[2022-04-13] MEDS: TRIAMCINOLONE ACET 0.1% CREAM 15 GM TUBE TP SCH ×2 (09:29→21:01)
[2022-04-13] MEDS: FUROSEMIDE 20 MG TABLET GT SCH (09:29)
[2022-04-13] MEDS: POTASSIUM CHLORIDE 40 MEQ/30 ML LIQUID UDC GT SCH (09:29)
[2022-04-13] MEDS: REMEDY ESSENTIAL ZINC PASTE 113 GM TP SCH ×2 (09:29→21:01)
[2022-04-13] MEDS: SODIUM HYPOCHLORITE 0.125% (QUARTER STRENGTH) 473 ML BOTTLE TP SCH ×2 (09:29→21:01)
[2022-04-13] MEDS: MEDIHONEY= THERAHONEY 1.5 OZ TUBE TP SCH ×2 (09:30→21:01)
[2022-04-13 20:00] VITALS: TEMP 97.8
[2022-04-13] MEDS: ASCORBIC ACID 500 MG TABLET GT SCH (21:00)
[2022-04-13] MEDS: ACIDOPHILUS/BULGARICUS CHEW TAB GT SCH (21:00)
[2022-04-13] MEDS: NORMAL SALINE NASAL 45 ML BOTTLE NS SCH (21:01)
[2022-04-14] MEDS: PROTEIN SUPPLEMENT (PROSTAT) 30 ML LIQUID GT SCH ×3 (05:24→21:51)
[2022-04-14] MEDS: GLUCERNA 1.2 1000ML LIQUID GT PRN (05:24)
[2022-04-14] MEDS: FAMOTIDINE 20 MG TABLET GT SCH ×2 (05:24→17:17)
[2022-04-14] MEDS: POLYVINYL ALCOHOL OPHT DROPS 15 ML BOTTLE EACHEYE SCH ×3 (05:24→21:50)
[2022-04-14] MEDS: ARGININE/GLUTAMINE/CALCIUM BMB 1 EACH POWD.PACK GT SCH ×2 (05:24→17:16)
[2022-04-14] MEDS: HYDROGEN PEROXIDE 3% 118 ML BOTTLE TP SCH ×2 (07:14→21:06)
[2022-04-14 08:02] VITALS: TEMP 99
[2022-04-14] MEDS ORDERED: NYSTATIN CREAM 30 GM TUBE TP PRN (08:15)
[2022-04-14] MEDS ORDERED: TRIAMCINOLONE ACET 0.1% CREAM 15 GM TUBE TP PRN (08:15)
[2022-04-14] MEDS ORDERED: MEDIHONEY= THERAHONEY 1.5 OZ TUBE TP PRN (08:15)
[2022-04-14] MEDS ORDERED: SODIUM HYPOCHLORITE 0.125% (QUARTER STRENGTH) 473 ML BOTTLE TP PRN (08:15)
[2022-04-14] MEDS: ACETAMINOPHEN 650 MG/20.3 ML LIQUID UDC GT SCH ×2 (08:20→20:10)
[2022-04-14] MEDS: DIGOXIN 125 MCG TABLET GT SCH (08:28)
[2022-04-14] MEDS: SODIUM HYPOCHLORITE 0.125% (QUARTER STRENGTH) 473 ML BOTTLE TP SCH ×2 (08:28→21:49)
[2022-04-14] MEDS: TRIAMCINOLONE ACET 0.1% CREAM 15 GM TUBE TP SCH ×2 (08:28→21:49)
[2022-04-14] MEDS: levETIRAcetam 500 MG/5 ML LIQUID UDC GT SCH ×2 (08:28→21:48)
[2022-04-14] MEDS: POTASSIUM CHLORIDE 40 MEQ/30 ML LIQUID UDC GT SCH (08:28)
[2022-04-14] MEDS: FUROSEMIDE 20 MG TABLET GT SCH (08:28)
[2022-04-14] MEDS: NYSTATIN CREAM 30 GM TUBE TP SCH ×2 (08:29→21:49)
[2022-04-14] MEDS: MEDIHONEY= THERAHONEY 1.5 OZ TUBE TP SCH ×2 (08:29→21:50)
[2022-04-14] MEDS: REMEDY ESSENTIAL ZINC PASTE 113 GM TP SCH ×2 (08:29→21:49)
[2022-04-14 20:43] VITALS: TEMP 98.2
[2022-04-14] MEDS: ACIDOPHILUS/BULGARICUS CHEW TAB GT SCH (21:47)
[2022-04-14] MEDS: ASCORBIC ACID 500 MG TABLET GT SCH (21:48)
[2022-04-14] MEDS: NORMAL SALINE NASAL 45 ML BOTTLE NS SCH (21:49)
[2022-04-15] MEDS: FAMOTIDINE 20 MG TABLET GT SCH ×2 (05:50→18:03)
[2022-04-15] MEDS: ARGININE/GLUTAMINE/CALCIUM BMB 1 EACH POWD.PACK GT SCH ×2 (05:50→18:03)
[2022-04-15] MEDS: PROTEIN SUPPLEMENT (PROSTAT) 30 ML LIQUID GT SCH ×3 (05:50→21:13)
[2022-04-15] MEDS: POLYVINYL ALCOHOL OPHT DROPS 15 ML BOTTLE EACHEYE SCH ×3 (05:50→21:13)
[2022-04-15 07:42] VITALS: TEMP 97.4
[2022-04-15] MEDS: ACETAMINOPHEN 650 MG/20.3 ML LIQUID UDC GT SCH ×2 (08:52→21:12)
[2022-04-15] MEDS: levETIRAcetam 500 MG/5 ML LIQUID UDC GT SCH ×2 (08:53→21:12)
[2022-04-15] MEDS: FUROSEMIDE 20 MG TABLET GT SCH (08:55)
[2022-04-15] MEDS: POTASSIUM CHLORIDE 40 MEQ/30 ML LIQUID UDC GT SCH (08:57)
[2022-04-15] MEDS: REMEDY ESSENTIAL ZINC PASTE 113 GM TP SCH ×2 (09:00→21:13)
[2022-04-15] MEDS: TRIAMCINOLONE ACET 0.1% CREAM 15 GM TUBE TP SCH ×2 (09:00→21:12)
[2022-04-15] MEDS: MEDIHONEY= THERAHONEY 1.5 OZ TUBE TP SCH ×2 (09:00→21:13)
[2022-04-15] MEDS: NYSTATIN CREAM 30 GM TUBE TP SCH ×2 (09:00→21:13)
[2022-04-15] MEDS: DIGOXIN 125 MCG TABLET GT SCH (09:12)
[2022-04-15] MEDS: HYDROGEN PEROXIDE 3% 118 ML BOTTLE TP SCH ×2 (09:41→21:00)
[2022-04-15] MEDS: SODIUM HYPOCHLORITE 0.125% (QUARTER STRENGTH) 473 ML BOTTLE TP SCH ×2 (10:00→21:12)
[2022-04-15] MEDS: GLUCERNA 1.2 1000ML LIQUID GT PRN (13:49)
[2022-04-15 20:42] VITALS: TEMP 98.6
[2022-04-15] MEDS: ASCORBIC ACID 500 MG TABLET GT SCH (21:12)
[2022-04-15] MEDS: NORMAL SALINE NASAL 45 ML BOTTLE NS SCH (21:12)
[2022-04-15] MEDS: ACIDOPHILUS/BULGARICUS CHEW TAB GT SCH (21:12)
[2022-04-16] MEDS: FAMOTIDINE 20 MG TABLET GT SCH ×2 (05:15→17:18)
[2022-04-16] MEDS: PROTEIN SUPPLEMENT (PROSTAT) 30 ML LIQUID GT SCH ×3 (05:15→22:28)
[2022-04-16] MEDS: POLYVINYL ALCOHOL OPHT DROPS 15 ML BOTTLE EACHEYE SCH ×3 (05:15→22:28)
[2022-04-16] MEDS: ARGININE/GLUTAMINE/CALCIUM BMB 1 EACH POWD.PACK GT SCH ×2 (05:15→17:18)
[2022-04-16 08:01] VITALS: TEMP 98.7
[2022-04-16] MEDS: ACETAMINOPHEN 650 MG/20.3 ML LIQUID UDC GT SCH ×2 (08:30→20:30)
[2022-04-16] MEDS: HYDROGEN PEROXIDE 3% 118 ML BOTTLE TP SCH ×2 (08:35→21:58)
[2022-04-16] MEDS: FUROSEMIDE 20 MG TABLET GT SCH (09:33)
[2022-04-16] MEDS: levETIRAcetam 500 MG/5 ML LIQUID UDC GT SCH ×2 (09:33→20:03)
[2022-04-16] MEDS: DIGOXIN 125 MCG TABLET GT SCH (09:33)
[2022-04-16] MEDS: POTASSIUM CHLORIDE 40 MEQ/30 ML LIQUID UDC GT SCH (09:33)
[2022-04-16] MEDS: MEDIHONEY= THERAHONEY 1.5 OZ TUBE TP SCH ×2 (09:34→20:04)
[2022-04-16] MEDS: SODIUM HYPOCHLORITE 0.125% (QUARTER STRENGTH) 473 ML BOTTLE TP SCH ×2 (09:34→20:04)
[2022-04-16] MEDS: TRIAMCINOLONE ACET 0.1% CREAM 15 GM TUBE TP SCH ×2 (09:34→20:04)
[2022-04-16] MEDS: NYSTATIN CREAM 30 GM TUBE TP SCH ×2 (09:34→20:04)
[2022-04-16] MEDS: REMEDY ESSENTIAL ZINC PASTE 113 GM TP SCH ×2 (09:34→20:04)
[2022-04-16] MEDS: ACIDOPHILUS/BULGARICUS CHEW TAB GT SCH (20:03)
[2022-04-16] MEDS: ASCORBIC ACID 500 MG TABLET GT SCH (20:03)
[2022-04-16] MEDS: NORMAL SALINE NASAL 45 ML BOTTLE NS SCH (20:03)
[2022-04-16 20:52] VITALS: TEMP 99.4
[2022-04-17] MEDS: GLUCERNA 1.2 1000ML LIQUID GT PRN (04:07)
[2022-04-17] MEDS: PROTEIN SUPPLEMENT (PROSTAT) 30 ML LIQUID GT SCH ×3 (05:03→21:20)
[2022-04-17] MEDS: POLYVINYL ALCOHOL OPHT DROPS 15 ML BOTTLE EACHEYE SCH ×3 (05:03→21:20)
[2022-04-17] MEDS: ARGININE/GLUTAMINE/CALCIUM BMB 1 EACH POWD.PACK GT SCH ×2 (05:03→18:01)
[2022-04-17] MEDS: FAMOTIDINE 20 MG TABLET GT SCH ×2 (05:03→18:01)
[2022-04-17 08:00] VITALS: TEMP 97.7
[2022-04-17] MEDS: HYDROGEN PEROXIDE 3% 118 ML BOTTLE TP SCH ×2 (08:14→21:19)
[2022-04-17] MEDS: levETIRAcetam 500 MG/5 ML LIQUID UDC GT SCH ×2 (08:39→21:19)
[2022-04-17] MEDS: ACETAMINOPHEN 650 MG/20.3 ML LIQUID UDC GT SCH ×2 (08:39→21:18)
[2022-04-17] MEDS: POTASSIUM CHLORIDE 40 MEQ/30 ML LIQUID UDC GT SCH (08:39)
[2022-04-17] MEDS: FUROSEMIDE 20 MG TABLET GT SCH (08:39)
[2022-04-17] MEDS: DIGOXIN 125 MCG TABLET GT SCH (08:39)
[2022-04-17] MEDS: MEDIHONEY= THERAHONEY 1.5 OZ TUBE TP SCH ×2 (08:40→21:20)
[2022-04-17] MEDS: NYSTATIN CREAM 30 GM TUBE TP SCH ×2 (08:40→21:19)
[2022-04-17] MEDS: TRIAMCINOLONE ACET 0.1% CREAM 15 GM TUBE TP SCH ×2 (08:40→21:19)
[2022-04-17] MEDS: SODIUM HYPOCHLORITE 0.125% (QUARTER STRENGTH) 473 ML BOTTLE TP SCH ×2 (08:40→21:19)
[2022-04-17] MEDS: REMEDY ESSENTIAL ZINC PASTE 113 GM TP SCH ×2 (08:40→21:20)
[2022-04-17 19:00] VITALS: TEMP 98.5
[2022-04-17] MEDS: ACIDOPHILUS/BULGARICUS CHEW TAB GT SCH (21:18)
[2022-04-17] MEDS: ASCORBIC ACID 500 MG TABLET GT SCH (21:19)
[2022-04-17] MEDS: NORMAL SALINE NASAL 45 ML BOTTLE NS SCH (21:19)
[2022-04-18] MEDS: POLYVINYL ALCOHOL OPHT DROPS 15 ML BOTTLE EACHEYE SCH ×3 (05:35→22:00)
[2022-04-18] MEDS: ARGININE/GLUTAMINE/CALCIUM BMB 1 EACH POWD.PACK GT SCH ×2 (05:35→17:55)
[2022-04-18] MEDS: PROTEIN SUPPLEMENT (PROSTAT) 30 ML LIQUID GT SCH ×3 (05:35→22:00)
[2022-04-18] MEDS: FAMOTIDINE 20 MG TABLET GT SCH ×2 (05:35→17:55)
[2022-04-18 07:25] VITALS: TEMP 98.7
[2022-04-18 07:50] LABS: BASOPHILS % (AUTO) 0.7 % (0.0-2.0); EOSINOPHILS # (AUTO) 0.4 K/uL (0.0-0.7); EOSINOPHILS % (AUTO) 6.6 % (0.0-7.0); HEMATOCRIT 39.3 % (31.2-41.9); HEMOGLOBIN 12.6 g/dL (10.9-14.3); LYMPHOCYTES # (AUTO) 2.1 K/uL (0.8-4.8); MEAN CORPUSCULAR HEMOGLOBIN 28.8 uug (24.7-32.8); MEAN CORPUSCULAR HGB CONC 32 g/dL (32.3-35.6); MEAN CORPUSCULAR VOLUME 89.6 fL (75.5-95.3); MONOCYTES # (AUTO) 0.7 K/uL (0.1-1.30); NEUTROPHILS # (AUTO) 3.1 K/uL (1.8-8.9); NEUTROPHILS % (AUTO) 48.7 % (38.5-71.5); PLATELET COUNT (AUTO) 136 K/uL (179-408); RED BLOOD CELL COUNT(AUTO) 4.39 MIL/uL (3.63-4.92); RED CELL DISTRIBUTION WIDTH 16.2 % (12.3-17.7); WHITE BLOOD COUNT (AUTO) 6.3 K/uL (3.8-11.8)
[2022-04-18 08:08] LABS: DIFFERENTIAL COMMENT 1
[2022-04-18 08:09] LABS: CALCIUM 9.4 mg/dL (8.5-10.1); CREATININE 0.7 mg/dL (0.6-1.3); MAGNESIUM 2.6 mg/dL (1.8-2.4); PHOSPHOROUS 3.9 mg/dL (2.5-4.9); POTASSIUM 3.8 mmol/L (3.5-5.1)
[2022-04-18] MEDS: HYDROGEN PEROXIDE 3% 118 ML BOTTLE TP SCH ×2 (08:29→20:52)
[2022-04-18] MEDS: DIGOXIN 125 MCG TABLET GT SCH (08:45)
[2022-04-18] MEDS: levETIRAcetam 500 MG/5 ML LIQUID UDC GT SCH ×2 (08:45→20:33)
[2022-04-18] MEDS: ACETAMINOPHEN 650 MG/20.3 ML LIQUID UDC GT SCH ×2 (08:45→20:30)
[2022-04-18] MEDS: SODIUM HYPOCHLORITE 0.125% (QUARTER STRENGTH) 473 ML BOTTLE TP SCH ×2 (08:50→20:33)
[2022-04-18] MEDS: POTASSIUM CHLORIDE 40 MEQ/30 ML LIQUID UDC GT SCH (08:50)
[2022-04-18] MEDS: TRIAMCINOLONE ACET 0.1% CREAM 15 GM TUBE TP SCH ×2 (08:50→20:34)
[2022-04-18] MEDS: NYSTATIN CREAM 30 GM TUBE TP SCH ×2 (08:50→20:34)
[2022-04-18] MEDS: REMEDY ESSENTIAL ZINC PASTE 113 GM TP SCH ×2 (08:50→20:34)
[2022-04-18] MEDS: FUROSEMIDE 20 MG TABLET GT SCH (08:50)
[2022-04-18] MEDS: MEDIHONEY= THERAHONEY 1.5 OZ TUBE TP SCH ×2 (08:51→20:35)
[2022-04-18 20:00] VITALS: TEMP 98.4
[2022-04-18] MEDS: ASCORBIC ACID 500 MG TABLET GT SCH (20:33)
[2022-04-18] MEDS: ACIDOPHILUS/BULGARICUS CHEW TAB GT SCH (20:33)
[2022-04-18] MEDS: NORMAL SALINE NASAL 45 ML BOTTLE NS SCH (20:33)
[2022-04-19] MEDS: POLYVINYL ALCOHOL OPHT DROPS 15 ML BOTTLE EACHEYE SCH ×3 (05:35→21:52)
[2022-04-19] MEDS: ARGININE/GLUTAMINE/CALCIUM BMB 1 EACH POWD.PACK GT SCH ×2 (05:36→17:03)
[2022-04-19] MEDS: PROTEIN SUPPLEMENT (PROSTAT) 30 ML LIQUID GT SCH ×3 (05:36→21:52)
[2022-04-19] MEDS: FAMOTIDINE 20 MG TABLET GT SCH ×2 (05:37→17:03)
[2022-04-19 07:21] VITALS: TEMP 97.4
[2022-04-19] MEDS: HYDROGEN PEROXIDE 3% 118 ML BOTTLE TP SCH ×2 (09:00→21:48)
[2022-04-19] MEDS: DIGOXIN 125 MCG TABLET GT SCH (09:20)
[2022-04-19] MEDS: levETIRAcetam 500 MG/5 ML LIQUID UDC GT SCH ×2 (09:20→21:50)
[2022-04-19] MEDS: ACETAMINOPHEN 650 MG/20.3 ML LIQUID UDC GT SCH ×2 (09:20→20:30)
[2022-04-19] MEDS: REMEDY ESSENTIAL ZINC PASTE 113 GM TP SCH ×2 (09:21→21:52)
[2022-04-19] MEDS: FUROSEMIDE 20 MG TABLET GT SCH (09:21)
[2022-04-19] MEDS: NYSTATIN CREAM 30 GM TUBE TP SCH ×2 (09:21→21:52)
[2022-04-19] MEDS: TRIAMCINOLONE ACET 0.1% CREAM 15 GM TUBE TP SCH ×2 (09:21→21:51)
[2022-04-19] MEDS: SODIUM HYPOCHLORITE 0.125% (QUARTER STRENGTH) 473 ML BOTTLE TP SCH ×2 (09:21→21:51)
[2022-04-19] MEDS: POTASSIUM CHLORIDE 40 MEQ/30 ML LIQUID UDC GT SCH (09:21)
[2022-04-19] MEDS: MEDIHONEY= THERAHONEY 1.5 OZ TUBE TP SCH ×2 (09:22→21:52)
[2022-04-19 20:00] VITALS: TEMP 98.1
[2022-04-19] MEDS: ASCORBIC ACID 500 MG TABLET GT SCH (21:50)
[2022-04-19] MEDS: ACIDOPHILUS/BULGARICUS CHEW TAB GT SCH (21:50)
[2022-04-19] MEDS: NORMAL SALINE NASAL 45 ML BOTTLE NS SCH (21:50)
[2022-04-20] MEDS: POLYVINYL ALCOHOL OPHT DROPS 15 ML BOTTLE EACHEYE SCH ×3 (06:07→21:57)
[2022-04-20] MEDS: PROTEIN SUPPLEMENT (PROSTAT) 30 ML LIQUID GT SCH ×3 (06:07→21:57)
[2022-04-20] MEDS: ARGININE/GLUTAMINE/CALCIUM BMB 1 EACH POWD.PACK GT SCH ×2 (06:07→18:17)
[2022-04-20] MEDS: FAMOTIDINE 20 MG TABLET GT SCH ×2 (06:07→18:17)
[2022-04-20 08:17] VITALS: TEMP 97.9
[2022-04-20] MEDS: ACETAMINOPHEN 650 MG/20.3 ML LIQUID UDC GT SCH ×2 (08:39→20:30)
[2022-04-20] MEDS: levETIRAcetam 500 MG/5 ML LIQUID UDC GT SCH ×2 (08:39→21:56)
[2022-04-20] MEDS: FUROSEMIDE 20 MG TABLET GT SCH (08:40)
[2022-04-20] MEDS: POTASSIUM CHLORIDE 40 MEQ/30 ML LIQUID UDC GT SCH (08:40)
[2022-04-20] MEDS: DIGOXIN 125 MCG TABLET GT SCH (08:40)
[2022-04-20] MEDS: SODIUM HYPOCHLORITE 0.125% (QUARTER STRENGTH) 473 ML BOTTLE TP SCH ×2 (08:41→21:56)
[2022-04-20] MEDS: HYDROGEN PEROXIDE 3% 118 ML BOTTLE TP SCH ×2 (08:41→20:57)
[2022-04-20] MEDS: TRIAMCINOLONE ACET 0.1% CREAM 15 GM TUBE TP SCH ×2 (08:42→21:56)
[2022-04-20] MEDS: MEDIHONEY= THERAHONEY 1.5 OZ TUBE TP SCH ×2 (08:44→21:57)
[2022-04-20] MEDS: REMEDY ESSENTIAL ZINC PASTE 113 GM TP SCH ×2 (08:44→21:57)
[2022-04-20] MEDS: NYSTATIN CREAM 30 GM TUBE TP SCH ×2 (08:44→21:56)
[2022-04-20 20:00] VITALS: TEMP 98.8
[2022-04-20] MEDS: ASCORBIC ACID 500 MG TABLET GT SCH (21:56)
[2022-04-20] MEDS: ACIDOPHILUS/BULGARICUS CHEW TAB GT SCH (21:56)
[2022-04-20] MEDS: NORMAL SALINE NASAL 45 ML BOTTLE NS SCH (21:56)
[2022-04-21] MEDS: POLYVINYL ALCOHOL OPHT DROPS 15 ML BOTTLE EACHEYE SCH ×3 (05:17→21:19)
[2022-04-21] MEDS: FAMOTIDINE 20 MG TABLET GT SCH ×2 (05:17→18:00)
[2022-04-21] MEDS: ARGININE/GLUTAMINE/CALCIUM BMB 1 EACH POWD.PACK GT SCH ×2 (05:17→18:00)
[2022-04-21] MEDS: PROTEIN SUPPLEMENT (PROSTAT) 30 ML LIQUID GT SCH ×3 (05:17→21:19)
[2022-04-21 07:45] VITALS: TEMP 98.9
[2022-04-21] MEDS: HYDROGEN PEROXIDE 3% 118 ML BOTTLE TP SCH ×2 (08:31→20:50)
[2022-04-21] MEDS: ACETAMINOPHEN 650 MG/20.3 ML LIQUID UDC GT SCH ×2 (09:04→20:30)
[2022-04-21] MEDS: levETIRAcetam 500 MG/5 ML LIQUID UDC GT SCH ×2 (09:04→21:15)
[2022-04-21] MEDS: POTASSIUM CHLORIDE 40 MEQ/30 ML LIQUID UDC GT SCH (09:05)
[2022-04-21] MEDS: MEDIHONEY= THERAHONEY 1.5 OZ TUBE TP SCH ×2 (09:05→21:19)
[2022-04-21] MEDS: DIGOXIN 125 MCG TABLET GT SCH (09:05)
[2022-04-21] MEDS: NYSTATIN CREAM 30 GM TUBE TP SCH ×2 (09:05→21:15)
[2022-04-21] MEDS: TRIAMCINOLONE ACET 0.1% CREAM 15 GM TUBE TP SCH ×2 (09:05→21:15)
[2022-04-21] MEDS: FUROSEMIDE 20 MG TABLET GT SCH (09:05)
[2022-04-21] MEDS: SODIUM HYPOCHLORITE 0.125% (QUARTER STRENGTH) 473 ML BOTTLE TP SCH ×2 (09:05→21:15)
[2022-04-21] MEDS: REMEDY ESSENTIAL ZINC PASTE 113 GM TP SCH ×2 (09:05→21:15)
[2022-04-21 20:00] VITALS: TEMP 98.2
[2022-04-21] MEDS: GLUCERNA 1.2 1000ML LIQUID GT PRN (21:00)
[2022-04-21] MEDS: ACIDOPHILUS/BULGARICUS CHEW TAB GT SCH (21:15)
[2022-04-21] MEDS: NORMAL SALINE NASAL 45 ML BOTTLE NS SCH (21:15)
[2022-04-21] MEDS: ASCORBIC ACID 500 MG TABLET GT SCH (21:15)
[2022-04-22] MEDS: POLYVINYL ALCOHOL OPHT DROPS 15 ML BOTTLE EACHEYE SCH ×3 (05:49→20:32)
[2022-04-22] MEDS: ARGININE/GLUTAMINE/CALCIUM BMB 1 EACH POWD.PACK GT SCH ×2 (05:50→17:47)
[2022-04-22] MEDS: PROTEIN SUPPLEMENT (PROSTAT) 30 ML LIQUID GT SCH ×3 (05:50→20:32)
[2022-04-22] MEDS: FAMOTIDINE 20 MG TABLET GT SCH ×2 (05:50→17:47)
[2022-04-22 07:39] VITALS: TEMP 97.4
[2022-04-22] MEDS: ACETAMINOPHEN 650 MG/20.3 ML LIQUID UDC GT SCH ×2 (08:39→20:30)
[2022-04-22] MEDS: levETIRAcetam 500 MG/5 ML LIQUID UDC GT SCH ×2 (08:41→20:30)
[2022-04-22] MEDS: POTASSIUM CHLORIDE 40 MEQ/30 ML LIQUID UDC GT SCH (08:41)
[2022-04-22] MEDS: FUROSEMIDE 20 MG TABLET GT SCH (08:41)
[2022-04-22] MEDS: DIGOXIN 125 MCG TABLET GT SCH (08:41)
[2022-04-22] MEDS: REMEDY ESSENTIAL ZINC PASTE 113 GM TP SCH ×2 (08:44→20:32)
[2022-04-22] MEDS: NYSTATIN CREAM 30 GM TUBE TP SCH ×2 (08:44→20:32)
[2022-04-22] MEDS: TRIAMCINOLONE ACET 0.1% CREAM 15 GM TUBE TP SCH ×2 (08:44→20:32)
[2022-04-22] MEDS: SODIUM HYPOCHLORITE 0.125% (QUARTER STRENGTH) 473 ML BOTTLE TP SCH ×2 (08:44→20:31)
[2022-04-22] MEDS: MEDIHONEY= THERAHONEY 1.5 OZ TUBE TP SCH ×2 (08:44→20:32)
[2022-04-22] MEDS: HYDROGEN PEROXIDE 3% 118 ML BOTTLE TP SCH ×2 (09:43→20:13)
[2022-04-22] MEDS: ASCORBIC ACID 500 MG TABLET GT SCH (20:30)
[2022-04-22] MEDS: ACIDOPHILUS/BULGARICUS CHEW TAB GT SCH (20:30)
[2022-04-22] MEDS: NORMAL SALINE NASAL 45 ML BOTTLE NS SCH (20:31)
[2022-04-22 22:28] VITALS: TEMP 98.5
[2022-04-23] MEDS: POLYVINYL ALCOHOL OPHT DROPS 15 ML BOTTLE EACHEYE SCH ×3 (04:57→20:14)
[2022-04-23] MEDS: FAMOTIDINE 20 MG TABLET GT SCH ×2 (04:58→17:34)
[2022-04-23] MEDS: PROTEIN SUPPLEMENT (PROSTAT) 30 ML LIQUID GT SCH ×3 (04:58→20:16)
[2022-04-23] MEDS: ARGININE/GLUTAMINE/CALCIUM BMB 1 EACH POWD.PACK GT SCH ×2 (04:58→17:34)
[2022-04-23] MEDS: HYDROGEN PEROXIDE 3% 118 ML BOTTLE TP SCH ×2 (07:43→20:12)
[2022-04-23 08:00] VITALS: TEMP 97.8; TEMP 99
[2022-04-23] MEDS: ACETAMINOPHEN 650 MG/20.3 ML LIQUID UDC GT SCH ×2 (08:39→20:10)
[2022-04-23] MEDS: levETIRAcetam 500 MG/5 ML LIQUID UDC GT SCH ×2 (08:39→20:10)
[2022-04-23] MEDS: FUROSEMIDE 20 MG TABLET GT SCH (08:40)
[2022-04-23] MEDS: DIGOXIN 125 MCG TABLET GT SCH (08:40)
[2022-04-23] MEDS: NYSTATIN CREAM 30 GM TUBE TP SCH ×2 (08:41→20:13)
[2022-04-23] MEDS: MEDIHONEY= THERAHONEY 1.5 OZ TUBE TP SCH ×2 (08:41→20:13)
[2022-04-23] MEDS: TRIAMCINOLONE ACET 0.1% CREAM 15 GM TUBE TP SCH ×2 (08:41→20:13)
[2022-04-23] MEDS: REMEDY ESSENTIAL ZINC PASTE 113 GM TP SCH ×2 (08:41→20:13)
[2022-04-23] MEDS: POTASSIUM CHLORIDE 40 MEQ/30 ML LIQUID UDC GT SCH (08:41)
[2022-04-23] MEDS: SODIUM HYPOCHLORITE 0.125% (QUARTER STRENGTH) 473 ML BOTTLE TP SCH ×2 (08:41→20:12)
[2022-04-23] MEDS: GLUCERNA 1.2 1000ML LIQUID GT PRN (08:47)
[2022-04-23] MEDS: ACIDOPHILUS/BULGARICUS CHEW TAB GT SCH (20:10)
[2022-04-23] MEDS: NORMAL SALINE NASAL 45 ML BOTTLE NS SCH (20:11)
[2022-04-23] MEDS: ASCORBIC ACID 500 MG TABLET GT SCH (20:11)
[2022-04-23 20:37] VITALS: TEMP 98.8
[2022-04-24] MEDS: ARGININE/GLUTAMINE/CALCIUM BMB 1 EACH POWD.PACK GT SCH ×2 (05:02→17:53)
[2022-04-24] MEDS: POLYVINYL ALCOHOL OPHT DROPS 15 ML BOTTLE EACHEYE SCH ×3 (05:02→21:03)
[2022-04-24] MEDS: FAMOTIDINE 20 MG TABLET GT SCH ×2 (05:03→17:53)
[2022-04-24] MEDS: PROTEIN SUPPLEMENT (PROSTAT) 30 ML LIQUID GT SCH ×3 (05:03→21:04)
[2022-04-24 07:40] VITALS: TEMP 97.6
[2022-04-24] MEDS: HYDROGEN PEROXIDE 3% 118 ML BOTTLE TP SCH ×2 (08:39→20:16)
[2022-04-24] MEDS: SODIUM HYPOCHLORITE 0.125% (QUARTER STRENGTH) 473 ML BOTTLE TP SCH ×2 (09:15→21:03)
[2022-04-24] MEDS: FUROSEMIDE 20 MG TABLET GT SCH (09:15)
[2022-04-24] MEDS: levETIRAcetam 500 MG/5 ML LIQUID UDC GT SCH ×2 (09:15→21:02)
[2022-04-24] MEDS: POTASSIUM CHLORIDE 40 MEQ/30 ML LIQUID UDC GT SCH (09:15)
[2022-04-24] MEDS: ACETAMINOPHEN 650 MG/20.3 ML LIQUID UDC GT SCH ×2 (09:15→20:55)
[2022-04-24] MEDS: DIGOXIN 125 MCG TABLET GT SCH (09:15)
[2022-04-24] MEDS: TRIAMCINOLONE ACET 0.1% CREAM 15 GM TUBE TP SCH ×2 (09:15→21:03)
[2022-04-24] MEDS: MEDIHONEY= THERAHONEY 1.5 OZ TUBE TP SCH ×2 (09:16→21:03)
[2022-04-24] MEDS: NYSTATIN CREAM 30 GM TUBE TP SCH ×2 (09:16→21:03)
[2022-04-24] MEDS: REMEDY ESSENTIAL ZINC PASTE 113 GM TP SCH ×2 (09:16→21:03)
[2022-04-24] MEDS: GLUCERNA 1.2 1000ML LIQUID GT PRN (17:54)
[2022-04-24] MEDS: ASCORBIC ACID 500 MG TABLET GT SCH (21:02)
[2022-04-24] MEDS: ACIDOPHILUS/BULGARICUS CHEW TAB GT SCH (21:02)
[2022-04-24] MEDS: NORMAL SALINE NASAL 45 ML BOTTLE NS SCH (21:02)
[2022-04-24 22:26] VITALS: TEMP 98.3
[2022-04-25] MEDS: PROTEIN SUPPLEMENT (PROSTAT) 30 ML LIQUID GT SCH ×3 (05:47→22:00)
[2022-04-25] MEDS: POLYVINYL ALCOHOL OPHT DROPS 15 ML BOTTLE EACHEYE SCH ×3 (05:47→22:00)
[2022-04-25] MEDS: ARGININE/GLUTAMINE/CALCIUM BMB 1 EACH POWD.PACK GT SCH ×2 (05:47→17:34)
[2022-04-25] MEDS: FAMOTIDINE 20 MG TABLET GT SCH ×2 (05:47→17:35)
[2022-04-25 07:19] VITALS: TEMP 98.9
[2022-04-25] MEDS: HYDROGEN PEROXIDE 3% 118 ML BOTTLE TP SCH ×2 (07:52→20:38)
[2022-04-25] MEDS: ACETAMINOPHEN 650 MG/20.3 ML LIQUID UDC GT SCH ×2 (08:21→20:34)
[2022-04-25] MEDS: levETIRAcetam 500 MG/5 ML LIQUID UDC GT SCH ×2 (08:28→20:36)
[2022-04-25] MEDS: FUROSEMIDE 20 MG TABLET GT SCH (08:28)
[2022-04-25] MEDS: DIGOXIN 125 MCG TABLET GT SCH (08:28)
[2022-04-25] MEDS: POTASSIUM CHLORIDE 40 MEQ/30 ML LIQUID UDC GT SCH (08:28)
[2022-04-25] MEDS: TRIAMCINOLONE ACET 0.1% CREAM 15 GM TUBE TP SCH ×2 (08:29→20:38)
[2022-04-25] MEDS: SODIUM HYPOCHLORITE 0.125% (QUARTER STRENGTH) 473 ML BOTTLE TP SCH ×2 (08:29→20:37)
[2022-04-25] MEDS: REMEDY ESSENTIAL ZINC PASTE 113 GM TP SCH ×2 (08:30→20:39)
[2022-04-25] MEDS: NYSTATIN CREAM 30 GM TUBE TP SCH ×2 (08:30→20:38)
[2022-04-25] MEDS: MEDIHONEY= THERAHONEY 1.5 OZ TUBE TP SCH ×2 (08:30→20:39)
[2022-04-25 20:00] VITALS: TEMP 98.8
[2022-04-25] MEDS: ACIDOPHILUS/BULGARICUS CHEW TAB GT SCH (20:31)
[2022-04-25] MEDS: ASCORBIC ACID 500 MG TABLET GT SCH (20:36)
[2022-04-25] MEDS: NORMAL SALINE NASAL 45 ML BOTTLE NS SCH (20:37)
[2022-04-26] MEDS: POLYVINYL ALCOHOL OPHT DROPS 15 ML BOTTLE EACHEYE SCH ×3 (05:28→22:12)
[2022-04-26] MEDS: ARGININE/GLUTAMINE/CALCIUM BMB 1 EACH POWD.PACK GT SCH ×2 (05:28→18:31)
[2022-04-26] MEDS: FAMOTIDINE 20 MG TABLET GT SCH ×2 (05:29→18:31)
[2022-04-26] MEDS: PROTEIN SUPPLEMENT (PROSTAT) 30 ML LIQUID GT SCH ×3 (05:29→22:12)
[2022-04-26] MEDS: HYDROGEN PEROXIDE 3% 118 ML BOTTLE TP SCH ×2 (07:15→20:36)
[2022-04-26 07:18] VITALS: TEMP 99.7
[2022-04-26 08:33] LABS: BASOPHILS % (AUTO) 0.2 % (0.0-2.0); EOSINOPHILS % (AUTO) 0.3 % (0.0-7.0); HEMATOCRIT 43.6 % (31.2-41.9); LYMPHOCYTES # (AUTO) 1.1 K/uL (0.8-4.8); LYMPHOCYTES % (AUTO) 8.9 % (20.5-51.5); MEAN CORPUSCULAR HGB CONC 32 g/dL (32.3-35.6); MEAN CORPUSCULAR VOLUME 90.1 fL (75.5-95.3); MONOCYTES # (AUTO) 0.6 K/uL (0.1-1.30); MONOCYTES % (AUTO) 4.4 % (0.0-11.0); NEUTROPHILS # (AUTO) 11.1 K/uL (1.8-8.9); NEUTROPHILS % (AUTO) 86.2 % (38.5-71.5); PLATELET COUNT (AUTO) 151 K/uL (179-408); RED BLOOD CELL COUNT(AUTO) 4.84 MIL/uL (3.63-4.92); RED CELL DISTRIBUTION WIDTH 16.7 % (12.3-17.7); WHITE BLOOD COUNT (AUTO) 12.9 K/uL (3.8-11.8)
[2022-04-26 08:37] LABS: DIFFERENTIAL COMMENT 1
[2022-04-26 08:50] LABS: CALCIUM 9.1 mg/dL (8.5-10.1); CREATININE 0.6 mg/dL (0.6-1.3); POTASSIUM 3.9 mmol/L (3.5-5.1)
[2022-04-26] MEDS: SODIUM HYPOCHLORITE 0.125% (QUARTER STRENGTH) 473 ML BOTTLE TP SCH ×2 (09:16→20:14)
[2022-04-26] MEDS: FUROSEMIDE 20 MG TABLET GT SCH (09:16)
[2022-04-26] MEDS: ACETAMINOPHEN 650 MG/20.3 ML LIQUID UDC GT SCH ×2 (09:16→20:13)
[2022-04-26] MEDS: DIGOXIN 125 MCG TABLET GT SCH (09:16)
[2022-04-26] MEDS: TRIAMCINOLONE ACET 0.1% CREAM 15 GM TUBE TP SCH ×2 (09:16→20:14)
[2022-04-26] MEDS: POTASSIUM CHLORIDE 40 MEQ/30 ML LIQUID UDC GT SCH (09:16)
[2022-04-26] MEDS: levETIRAcetam 500 MG/5 ML LIQUID UDC GT SCH ×2 (09:16→20:13)
[2022-04-26] MEDS: REMEDY ESSENTIAL ZINC PASTE 113 GM TP SCH ×2 (09:17→20:14)
[2022-04-26] MEDS: MEDIHONEY= THERAHONEY 1.5 OZ TUBE TP SCH ×2 (09:17→20:14)
[2022-04-26] MEDS: NYSTATIN CREAM 30 GM TUBE TP SCH ×2 (09:17→20:14)
[2022-04-26 18:34] LABS: *BILIRUBIN,URIN NEGATIVE (NEGATIVE); *CLARITY,URINE CLEAR (CLEAR); *COLOR,URINE YELLOW (YELLOW); *KETONES,URINE NEGATIVE (NEGATIVE); LEUKOCYTE ESTERASE ,URINE NEGATIVE (NEGATIVE); NITRITE, URINE NEGATIVE (NEGATIVE); PH,URINE 5.5 (5.0-8.0); UGLUCOSE NEGATIVE (NEGATIVE)
[2022-04-26 18:35] LABS: *BLOOD, URINE TRACE (NEGATIVE); *PROTEIN,URINE 3+ (NEGATIVE)
[2022-04-26 18:36] LABS: BACTERIA,URINE NONE SEEN /HPF (NONE SEEN); SQUAMOUS EPITHELIAL CELL,UR FEW /HPF (NONE SEEN); WBC,URINE 0-3 /HPF (0-3)
[2022-04-26] MEDS: ASCORBIC ACID 500 MG TABLET GT SCH (20:13)
[2022-04-26] MEDS: ACIDOPHILUS/BULGARICUS CHEW TAB GT SCH (20:13)
[2022-04-26] MEDS: NORMAL SALINE NASAL 45 ML BOTTLE NS SCH (20:14)
[2022-04-26 20:17] VITALS: TEMP 99.4
[2022-04-27] MEDS: FAMOTIDINE 20 MG TABLET GT SCH ×2 (05:03→17:19)
[2022-04-27] MEDS: ARGININE/GLUTAMINE/CALCIUM BMB 1 EACH POWD.PACK GT SCH ×2 (05:03→17:19)
[2022-04-27] MEDS: PROTEIN SUPPLEMENT (PROSTAT) 30 ML LIQUID GT SCH ×3 (05:03→21:49)
[2022-04-27] MEDS: POLYVINYL ALCOHOL OPHT DROPS 15 ML BOTTLE EACHEYE SCH ×3 (05:03→21:48)
[2022-04-27] MEDS: HYDROGEN PEROXIDE 3% 118 ML BOTTLE TP SCH ×2 (07:16→20:48)
[2022-04-27 07:26] VITALS: TEMP 101
[2022-04-27 07:41] LABS: BASOPHILS % (AUTO) 0.2 % (0.0-2.0); EOSINOPHILS # (AUTO) 0.2 K/uL (0.0-0.7); EOSINOPHILS % (AUTO) 0.8 % (0.0-7.0); HEMOGLOBIN 14.1 g/dL (10.9-14.3); LYMPHOCYTES # (AUTO) 1.7 K/uL (0.8-4.8); LYMPHOCYTES % (AUTO) 9.3 % (20.5-51.5); MEAN CORPUSCULAR HEMOGLOBIN 28.7 uug (24.7-32.8); MEAN CORPUSCULAR HGB CONC 32 g/dL (32.3-35.6); MONOCYTES # (AUTO) 0.9 K/uL (0.1-1.30); MONOCYTES % (AUTO) 4.9 % (0.0-11.0); NEUTROPHILS # (AUTO) 15.8 K/uL (1.8-8.9); NEUTROPHILS % (AUTO) 84.8 % (38.5-71.5); PLATELET COUNT (AUTO) 170 K/uL (179-408); RED BLOOD CELL COUNT(AUTO) 4.89 MIL/uL (3.63-4.92); RED CELL DISTRIBUTION WIDTH 16.9 % (12.3-17.7); WHITE BLOOD COUNT (AUTO) 18.6 K/uL (3.8-11.8)
[2022-04-27 08:14] LABS: ALBUMIN 2.5 g/dL (3.4-5.0); BILIRUBIN,TOTAL 1.1 mg/dL (0.2-1.0); CALCIUM 8.9 mg/dL (8.5-10.1); CREATININE 0.7 mg/dL (0.6-1.3); POTASSIUM 3.9 mmol/L (3.5-5.1); TOTAL PROTEIN, SERUM 8.2 g/dL (6.4-8.2)
[2022-04-27 08:27] LABS: DIFFERENTIAL COMMENT 1
[2022-04-27] MEDS: ACETAMINOPHEN 650 MG/20.3 ML LIQUID UDC GT SCH ×2 (08:30→20:30)
[2022-04-27] MEDS: TRIAMCINOLONE ACET 0.1% CREAM 15 GM TUBE TP SCH ×2 (09:00→21:48)
[2022-04-27] MEDS: NYSTATIN CREAM 30 GM TUBE TP SCH ×2 (09:00→21:48)
[2022-04-27] MEDS: POTASSIUM CHLORIDE 40 MEQ/30 ML LIQUID UDC GT SCH (09:00)
[2022-04-27] MEDS: REMEDY ESSENTIAL ZINC PASTE 113 GM TP SCH ×2 (09:00→21:48)
[2022-04-27] MEDS: FUROSEMIDE 20 MG TABLET GT SCH (09:00)
[2022-04-27] MEDS: SODIUM HYPOCHLORITE 0.125% (QUARTER STRENGTH) 473 ML BOTTLE TP SCH ×2 (09:00→21:48)
[2022-04-27] MEDS: DIGOXIN 125 MCG TABLET GT SCH (09:00)
[2022-04-27] MEDS: MEDIHONEY= THERAHONEY 1.5 OZ TUBE TP SCH ×2 (09:00→21:48)
[2022-04-27] MEDS: levETIRAcetam 500 MG/5 ML LIQUID UDC GT SCH ×2 (09:00→21:47)
[2022-04-27] MEDS ORDERED: DOSING BY PHARMACY-MD TO SPECIFY MED/ROUTE XX PRN (12:30)
[2022-04-27] MEDS ORDERED: MEROPENEM 1 G in IV NORMAL SALINE 100 ML IV SCH (16:00)
[2022-04-27 20:00] VITALS: TEMP 97.9
[2022-04-27] MEDS: MEROPENEM 1 G in IV NORMAL SALINE 100 ML IV SCH (21:00)
[2022-04-27] MEDS: ACIDOPHILUS/BULGARICUS CHEW TAB GT SCH (21:47)
[2022-04-27] MEDS: ASCORBIC ACID 500 MG TABLET GT SCH (21:47)
[2022-04-27] MEDS: NORMAL SALINE NASAL 45 ML BOTTLE NS SCH (21:48)
[2022-04-28] MEDS: GLUCERNA 1.2 1000ML LIQUID GT PRN (02:00)
[2022-04-28] MEDS: MEROPENEM 1 G in IV NORMAL SALINE 100 ML IV SCH ×3 (04:54→21:00)
[2022-04-28] MEDS: PROTEIN SUPPLEMENT (PROSTAT) 30 ML LIQUID GT SCH ×3 (05:44→22:01)
[2022-04-28] MEDS: FAMOTIDINE 20 MG TABLET GT SCH ×2 (05:44→17:09)
[2022-04-28] MEDS: POLYVINYL ALCOHOL OPHT DROPS 15 ML BOTTLE EACHEYE SCH ×3 (05:44→22:01)
[2022-04-28] MEDS: ARGININE/GLUTAMINE/CALCIUM BMB 1 EACH POWD.PACK GT SCH ×2 (05:44→17:09)
[2022-04-28] MEDS: HYDROGEN PEROXIDE 3% 118 ML BOTTLE TP SCH ×2 (07:24→19:19)
[2022-04-28 07:52] VITALS: TEMP 98.7
[2022-04-28] MEDS: ACETAMINOPHEN 650 MG/20.3 ML LIQUID UDC GT SCH ×2 (08:41→20:27)
[2022-04-28] MEDS: levETIRAcetam 500 MG/5 ML LIQUID UDC GT SCH ×2 (08:41→20:27)
[2022-04-28] MEDS: DIGOXIN 125 MCG TABLET GT SCH (08:51)
[2022-04-28] MEDS: FUROSEMIDE 20 MG TABLET GT SCH (08:51)
[2022-04-28] MEDS: POTASSIUM CHLORIDE 40 MEQ/30 ML LIQUID UDC GT SCH (08:51)
[2022-04-28] MEDS: REMEDY ESSENTIAL ZINC PASTE 113 GM TP SCH ×2 (08:52→20:29)
[2022-04-28] MEDS: MEDIHONEY= THERAHONEY 1.5 OZ TUBE TP SCH ×2 (08:52→20:29)
[2022-04-28] MEDS: NYSTATIN CREAM 30 GM TUBE TP SCH ×2 (08:52→20:29)
[2022-04-28] MEDS: SODIUM HYPOCHLORITE 0.125% (QUARTER STRENGTH) 473 ML BOTTLE TP SCH ×2 (08:52→20:29)
[2022-04-28] MEDS: TRIAMCINOLONE ACET 0.1% CREAM 15 GM TUBE TP SCH ×2 (08:52→20:29)
[2022-04-28 20:00] VITALS: TEMP 98
[2022-04-28] MEDS: ACIDOPHILUS/BULGARICUS CHEW TAB GT SCH (20:27)
[2022-04-28] MEDS: ASCORBIC ACID 500 MG TABLET GT SCH (20:28)
[2022-04-28] MEDS: NORMAL SALINE NASAL 45 ML BOTTLE NS SCH (20:29)
[2022-04-29] MEDS: MEROPENEM 1 G in IV NORMAL SALINE 100 ML IV SCH ×3 (04:22→21:01)
[2022-04-29] MEDS: ARGININE/GLUTAMINE/CALCIUM BMB 1 EACH POWD.PACK GT SCH ×2 (05:49→17:06)
[2022-04-29] MEDS: POLYVINYL ALCOHOL OPHT DROPS 15 ML BOTTLE EACHEYE SCH ×3 (05:49→21:48)
[2022-04-29] MEDS: PROTEIN SUPPLEMENT (PROSTAT) 30 ML LIQUID GT SCH ×3 (05:49→21:48)
[2022-04-29] MEDS: FAMOTIDINE 20 MG TABLET GT SCH ×2 (05:49→17:06)
[2022-04-29] MEDS: HYDROGEN PEROXIDE 3% 118 ML BOTTLE TP SCH ×2 (07:14→19:14)
[2022-04-29 07:19] LABS: BASOPHILS % (AUTO) 0.3 % (0.0-2.0); EOSINOPHILS # (AUTO) 0.3 K/uL (0.0-0.7); EOSINOPHILS % (AUTO) 2.5 % (0.0-7.0); HEMATOCRIT 40.2 % (31.2-41.9); LYMPHOCYTES # (AUTO) 1.3 K/uL (0.8-4.8); LYMPHOCYTES % (AUTO) 9.3 % (20.5-51.5); MEAN CORPUSCULAR HEMOGLOBIN 28.9 uug (24.7-32.8); MEAN CORPUSCULAR HGB CONC 32 g/dL (32.3-35.6); MEAN CORPUSCULAR VOLUME 89.4 fL (75.5-95.3); MONOCYTES # (AUTO) 0.9 K/uL (0.1-1.30); NEUTROPHILS # (AUTO) 10.9 K/uL (1.8-8.9); NEUTROPHILS % (AUTO) 80.9 % (38.5-71.5); PLATELET COUNT (AUTO) 173 K/uL (179-408); RED CELL DISTRIBUTION WIDTH 16.5 % (12.3-17.7); WHITE BLOOD COUNT (AUTO) 13.5 K/uL (3.8-11.8)
[2022-04-29 07:38] LABS: ALBUMIN 2.1 g/dL (3.4-5.0); BILIRUBIN,TOTAL 0.7 mg/dL (0.2-1.0); CALCIUM 8.7 mg/dL (8.5-10.1); CREATININE 0.7 mg/dL (0.6-1.3); MAGNESIUM 2.8 mg/dL (1.8-2.4); TOTAL PROTEIN, SERUM 7.6 g/dL (6.4-8.2)
[2022-04-29 07:43] LABS: DIFFERENTIAL COMMENT 1
[2022-04-29 07:48] VITALS: TEMP 98.2
[2022-04-29] MEDS: levETIRAcetam 500 MG/5 ML LIQUID UDC GT SCH ×2 (08:32→20:29)
[2022-04-29] MEDS: DIGOXIN 125 MCG TABLET GT SCH (08:32)
[2022-04-29] MEDS: ACETAMINOPHEN 650 MG/20.3 ML LIQUID UDC GT SCH ×2 (08:32→20:28)
[2022-04-29] MEDS: FUROSEMIDE 20 MG TABLET GT SCH (08:32)
[2022-04-29] MEDS: POTASSIUM CHLORIDE 40 MEQ/30 ML LIQUID UDC GT SCH (08:32)
[2022-04-29] MEDS: REMEDY ESSENTIAL ZINC PASTE 113 GM TP SCH ×2 (08:33→20:30)
[2022-04-29] MEDS: MEDIHONEY= THERAHONEY 1.5 OZ TUBE TP SCH ×2 (08:33→20:30)
[2022-04-29] MEDS: TRIAMCINOLONE ACET 0.1% CREAM 15 GM TUBE TP SCH ×2 (08:33→20:30)
[2022-04-29] MEDS: SODIUM HYPOCHLORITE 0.125% (QUARTER STRENGTH) 473 ML BOTTLE TP SCH ×2 (08:33→20:30)
[2022-04-29] MEDS: NYSTATIN CREAM 30 GM TUBE TP SCH ×2 (08:33→20:30)
[2022-04-29] MEDS: GLUCERNA 1.2 1000ML LIQUID GT PRN (14:49)
[2022-04-29] MEDS ORDERED: NEUTRA PHOS PACKET GT ONE (17:00)
[2022-04-29] MEDS: ACIDOPHILUS/BULGARICUS CHEW TAB GT SCH (20:28)
[2022-04-29] MEDS: ASCORBIC ACID 500 MG TABLET GT SCH (20:30)
[2022-04-29] MEDS: NORMAL SALINE NASAL 45 ML BOTTLE NS SCH (20:30)
[2022-04-29 20:32] VITALS: TEMP 100.9
[2022-04-29 23:00] VITALS: TEMP 98.2
[2022-04-30 03:02] VITALS: TEMP 98.1
[2022-04-30] MEDS: MEROPENEM 1 G in IV NORMAL SALINE 100 ML IV SCH ×3 (05:19→21:37)
[2022-04-30 05:57] VITALS: TEMP 98
[2022-04-30] MEDS: PROTEIN SUPPLEMENT (PROSTAT) 30 ML LIQUID GT SCH ×3 (06:29→21:40)
[2022-04-30] MEDS: POLYVINYL ALCOHOL OPHT DROPS 15 ML BOTTLE EACHEYE SCH ×3 (06:29→21:40)
[2022-04-30] MEDS: ARGININE/GLUTAMINE/CALCIUM BMB 1 EACH POWD.PACK GT SCH ×2 (06:29→18:01)
[2022-04-30] MEDS: FAMOTIDINE 20 MG TABLET GT SCH ×2 (06:29→18:01)
[2022-04-30 07:32] VITALS: TEMP 98.1
[2022-04-30 07:39] LABS: CALCIUM 8.9 mg/dL (8.5-10.1); CREATININE 0.6 mg/dL (0.6-1.3); POTASSIUM 4.3 mmol/L (3.5-5.1)
[2022-04-30] MEDS: HYDROGEN PEROXIDE 3% 118 ML BOTTLE TP SCH ×2 (08:21→19:15)
[2022-04-30] MEDS: POTASSIUM CHLORIDE 40 MEQ/30 ML LIQUID UDC GT SCH (08:33)
[2022-04-30] MEDS: ACETAMINOPHEN 650 MG/20.3 ML LIQUID UDC GT SCH ×2 (08:33→19:59)
[2022-04-30] MEDS: levETIRAcetam 500 MG/5 ML LIQUID UDC GT SCH ×2 (08:33→20:01)
[2022-04-30] MEDS: DIGOXIN 125 MCG TABLET GT SCH (08:33)
[2022-04-30] MEDS: FUROSEMIDE 20 MG TABLET GT SCH (08:33)
[2022-04-30] MEDS: MEDIHONEY= THERAHONEY 1.5 OZ TUBE TP SCH ×2 (08:34→20:02)
[2022-04-30] MEDS: REMEDY ESSENTIAL ZINC PASTE 113 GM TP SCH ×2 (08:34→20:02)
[2022-04-30] MEDS: SODIUM HYPOCHLORITE 0.125% (QUARTER STRENGTH) 473 ML BOTTLE TP SCH ×2 (08:34→20:02)
[2022-04-30] MEDS: TRIAMCINOLONE ACET 0.1% CREAM 15 GM TUBE TP SCH ×2 (08:34→20:02)
[2022-04-30] MEDS: NYSTATIN CREAM 30 GM TUBE TP SCH ×2 (08:34→20:02)
[2022-04-30] MEDS: ACIDOPHILUS/BULGARICUS CHEW TAB GT SCH (20:00)
[2022-04-30] MEDS: ASCORBIC ACID 500 MG TABLET GT SCH (20:01)
[2022-04-30] MEDS: NORMAL SALINE NASAL 45 ML BOTTLE NS SCH (20:02)
[2022-04-30 20:19] VITALS: TEMP 98.6
[2022-05-01] MEDS: MEROPENEM 1 G in IV NORMAL SALINE 100 ML IV SCH ×3 (05:38→21:38)
[2022-05-01] MEDS: ARGININE/GLUTAMINE/CALCIUM BMB 1 EACH POWD.PACK GT SCH ×2 (05:39→18:22)
[2022-05-01] MEDS: FAMOTIDINE 20 MG TABLET GT SCH ×2 (05:39→18:22)
[2022-05-01] MEDS: PROTEIN SUPPLEMENT (PROSTAT) 30 ML LIQUID GT SCH ×3 (05:39→22:11)
[2022-05-01] MEDS: POLYVINYL ALCOHOL OPHT DROPS 15 ML BOTTLE EACHEYE SCH ×3 (05:39→22:11)
[2022-05-01 08:00] VITALS: TEMP 98.9
[2022-05-01] MEDS: HYDROGEN PEROXIDE 3% 118 ML BOTTLE TP SCH ×2 (09:06→19:00)
[2022-05-01] MEDS: FUROSEMIDE 20 MG TABLET GT SCH (09:11)
[2022-05-01] MEDS: TRIAMCINOLONE ACET 0.1% CREAM 15 GM TUBE TP SCH ×2 (09:11→20:30)
[2022-05-01] MEDS: DIGOXIN 125 MCG TABLET GT SCH (09:11)
[2022-05-01] MEDS: ACETAMINOPHEN 650 MG/20.3 ML LIQUID UDC GT SCH ×2 (09:11→20:29)
[2022-05-01] MEDS: NYSTATIN CREAM 30 GM TUBE TP SCH ×2 (09:11→20:30)
[2022-05-01] MEDS: SODIUM HYPOCHLORITE 0.125% (QUARTER STRENGTH) 473 ML BOTTLE TP SCH ×2 (09:11→20:30)
[2022-05-01] MEDS: levETIRAcetam 500 MG/5 ML LIQUID UDC GT SCH ×2 (09:11→20:30)
[2022-05-01] MEDS: REMEDY ESSENTIAL ZINC PASTE 113 GM TP SCH ×2 (09:11→20:31)
[2022-05-01] MEDS: POTASSIUM CHLORIDE 40 MEQ/30 ML LIQUID UDC GT SCH (09:11)
[2022-05-01] MEDS: MEDIHONEY= THERAHONEY 1.5 OZ TUBE TP SCH ×2 (09:12→20:31)
[2022-05-01 19:54] VITALS: TEMP 98.8
[2022-05-01] MEDS: ACIDOPHILUS/BULGARICUS CHEW TAB GT SCH (20:29)
[2022-05-01] MEDS: NORMAL SALINE NASAL 45 ML BOTTLE NS SCH (20:30)
[2022-05-01] MEDS: ASCORBIC ACID 500 MG TABLET GT SCH (20:30)
[2022-05-02] MEDS: MEROPENEM 1 G in IV NORMAL SALINE 100 ML IV SCH ×3 (05:01→20:27)
[2022-05-02] MEDS: FAMOTIDINE 20 MG TABLET GT SCH ×2 (05:09→18:28)
[2022-05-02] MEDS: ARGININE/GLUTAMINE/CALCIUM BMB 1 EACH POWD.PACK GT SCH ×2 (05:09→18:28)
[2022-05-02] MEDS: PROTEIN SUPPLEMENT (PROSTAT) 30 ML LIQUID GT SCH ×3 (05:09→21:56)
[2022-05-02] MEDS: POLYVINYL ALCOHOL OPHT DROPS 15 ML BOTTLE EACHEYE SCH ×3 (05:09→21:56)
[2022-05-02 07:26] VITALS: TEMP 99.4
[2022-05-02] MEDS: HYDROGEN PEROXIDE 3% 118 ML BOTTLE TP SCH ×2 (08:18→21:37)
[2022-05-02 08:24] LABS: BASOPHILS % (AUTO) 0.2 % (0.0-2.0); EOSINOPHILS # (AUTO) 0.4 K/uL (0.0-0.7); EOSINOPHILS % (AUTO) 4.4 % (0.0-7.0); HEMATOCRIT 37.1 % (31.2-41.9); HEMOGLOBIN 11.8 g/dL (10.9-14.3); LYMPHOCYTES # (AUTO) 1.3 K/uL (0.8-4.8); LYMPHOCYTES % (AUTO) 13.9 % (20.5-51.5); MEAN CORPUSCULAR HEMOGLOBIN 28.5 uug (24.7-32.8); MEAN CORPUSCULAR HGB CONC 32 g/dL (32.3-35.6); MEAN CORPUSCULAR VOLUME 89.3 fL (75.5-95.3); MONOCYTES # (AUTO) 0.8 K/uL (0.1-1.30); MONOCYTES % (AUTO) 8.8 % (0.0-11.0); NEUTROPHILS # (AUTO) 6.9 K/uL (1.8-8.9); NEUTROPHILS % (AUTO) 72.7 % (38.5-71.5); PLATELET COUNT (AUTO) 169 K/uL (179-408); RED BLOOD CELL COUNT(AUTO) 4.15 MIL/uL (3.63-4.92); RED CELL DISTRIBUTION WIDTH 16.6 % (12.3-17.7); WHITE BLOOD COUNT (AUTO) 9.6 K/uL (3.8-11.8)
[2022-05-02 08:25] LABS: ALBUMIN 1.8 g/dL (3.4-5.0); BILIRUBIN,TOTAL 0.5 mg/dL (0.2-1.0); CALCIUM 8.7 mg/dL (8.5-10.1); CREATININE 0.6 mg/dL (0.6-1.3); POTASSIUM 4.2 mmol/L (3.5-5.1); TOTAL PROTEIN, SERUM 6.9 g/dL (6.4-8.2)
[2022-05-02 08:46] LABS: DIFFERENTIAL COMMENT 1
[2022-05-02] MEDS: ACETAMINOPHEN 650 MG/20.3 ML LIQUID UDC GT SCH ×2 (09:01→20:57)
[2022-05-02] MEDS: FUROSEMIDE 20 MG TABLET GT SCH (09:02)
[2022-05-02] MEDS: DIGOXIN 125 MCG TABLET GT SCH (09:02)
[2022-05-02] MEDS: SODIUM HYPOCHLORITE 0.125% (QUARTER STRENGTH) 473 ML BOTTLE TP SCH ×2 (09:02→20:58)
[2022-05-02] MEDS: levETIRAcetam 500 MG/5 ML LIQUID UDC GT SCH ×2 (09:02→20:58)
[2022-05-02] MEDS: POTASSIUM CHLORIDE 40 MEQ/30 ML LIQUID UDC GT SCH (09:02)
[2022-05-02] MEDS: TRIAMCINOLONE ACET 0.1% CREAM 15 GM TUBE TP SCH ×2 (09:03→20:58)
[2022-05-02] MEDS: REMEDY ESSENTIAL ZINC PASTE 113 GM TP SCH ×2 (09:03→20:59)
[2022-05-02] MEDS: MEDIHONEY= THERAHONEY 1.5 OZ TUBE TP SCH ×2 (09:03→20:59)
[2022-05-02] MEDS: NYSTATIN CREAM 30 GM TUBE TP SCH ×2 (09:03→20:58)
[2022-05-02] MEDS: IV D5W 1000ML 1,000 ML IV SCH ×2 (13:42→23:04)
[2022-05-02 19:58] VITALS: TEMP 98.8
[2022-05-02] MEDS: ACIDOPHILUS/BULGARICUS CHEW TAB GT SCH (20:58)
[2022-05-02] MEDS: ASCORBIC ACID 500 MG TABLET GT SCH (20:58)
[2022-05-02] MEDS: NORMAL SALINE NASAL 45 ML BOTTLE NS SCH (20:58)
[2022-05-03] MEDS: MEROPENEM 1 G in IV NORMAL SALINE 100 ML IV SCH ×3 (04:53→20:44)
[2022-05-03] MEDS: FAMOTIDINE 20 MG TABLET GT SCH ×2 (05:28→18:21)
[2022-05-03] MEDS: ARGININE/GLUTAMINE/CALCIUM BMB 1 EACH POWD.PACK GT SCH ×2 (05:28→18:21)
[2022-05-03] MEDS: POLYVINYL ALCOHOL OPHT DROPS 15 ML BOTTLE EACHEYE SCH ×3 (05:28→21:01)
[2022-05-03] MEDS: PROTEIN SUPPLEMENT (PROSTAT) 30 ML LIQUID GT SCH ×3 (05:28→21:02)
[2022-05-03 07:16] VITALS: TEMP 99.4
[2022-05-03] MEDS: HYDROGEN PEROXIDE 3% 118 ML BOTTLE TP SCH ×2 (07:18→21:16)
[2022-05-03] MEDS: ACETAMINOPHEN 650 MG/20.3 ML LIQUID UDC GT SCH ×2 (08:30→20:30)
[2022-05-03] MEDS: levETIRAcetam 500 MG/5 ML LIQUID UDC GT SCH ×2 (09:32→21:00)
[2022-05-03] MEDS: SODIUM HYPOCHLORITE 0.125% (QUARTER STRENGTH) 473 ML BOTTLE TP SCH ×2 (09:33→21:01)
[2022-05-03] MEDS: FUROSEMIDE 20 MG TABLET GT SCH (09:33)
[2022-05-03] MEDS: MEDIHONEY= THERAHONEY 1.5 OZ TUBE TP SCH ×2 (09:33→21:01)
[2022-05-03] MEDS: NYSTATIN CREAM 30 GM TUBE TP SCH ×2 (09:33→21:01)
[2022-05-03] MEDS: POTASSIUM CHLORIDE 40 MEQ/30 ML LIQUID UDC GT SCH (09:33)
[2022-05-03] MEDS: REMEDY ESSENTIAL ZINC PASTE 113 GM TP SCH ×2 (09:33→21:01)
[2022-05-03] MEDS: TRIAMCINOLONE ACET 0.1% CREAM 15 GM TUBE TP SCH ×2 (09:33→21:01)
[2022-05-03] MEDS: DIGOXIN 125 MCG TABLET GT SCH (09:33)
[2022-05-03 20:04] VITALS: TEMP 98.8
[2022-05-03] MEDS: ASCORBIC ACID 500 MG TABLET GT SCH (21:00)
[2022-05-03] MEDS: ACIDOPHILUS/BULGARICUS CHEW TAB GT SCH (21:00)
[2022-05-03] MEDS: NORMAL SALINE NASAL 45 ML BOTTLE NS SCH (21:00)
[2022-05-04] MEDS: POLYVINYL ALCOHOL OPHT DROPS 15 ML BOTTLE EACHEYE SCH ×3 (06:17→21:52)
[2022-05-04] MEDS: FAMOTIDINE 20 MG TABLET GT SCH ×2 (06:17→17:28)
[2022-05-04] MEDS: PROTEIN SUPPLEMENT (PROSTAT) 30 ML LIQUID GT SCH ×3 (06:17→21:53)
[2022-05-04] MEDS: ARGININE/GLUTAMINE/CALCIUM BMB 1 EACH POWD.PACK GT SCH ×2 (06:17→17:28)
[2022-05-04 07:30] VITALS: TEMP 97.1
[2022-05-04] MEDS: ACETAMINOPHEN 650 MG/20.3 ML LIQUID UDC GT SCH ×2 (08:30→20:30)
[2022-05-04] MEDS: HYDROGEN PEROXIDE 3% 118 ML BOTTLE TP SCH ×2 (08:51→20:54)
[2022-05-04] MEDS: NYSTATIN CREAM 30 GM TUBE TP SCH ×2 (09:52→21:52)
[2022-05-04] MEDS: FUROSEMIDE 20 MG TABLET GT SCH (09:52)
[2022-05-04] MEDS: SODIUM HYPOCHLORITE 0.125% (QUARTER STRENGTH) 473 ML BOTTLE TP SCH ×2 (09:52→21:52)
[2022-05-04] MEDS: levETIRAcetam 500 MG/5 ML LIQUID UDC GT SCH ×2 (09:52→21:51)
[2022-05-04] MEDS: TRIAMCINOLONE ACET 0.1% CREAM 15 GM TUBE TP SCH ×2 (09:52→21:52)
[2022-05-04] MEDS: DIGOXIN 125 MCG TABLET GT SCH (09:52)
[2022-05-04] MEDS: POTASSIUM CHLORIDE 40 MEQ/30 ML LIQUID UDC GT SCH (09:52)
[2022-05-04] MEDS: REMEDY ESSENTIAL ZINC PASTE 113 GM TP SCH ×2 (09:53→21:52)
[2022-05-04] MEDS: MEDIHONEY= THERAHONEY 1.5 OZ TUBE TP SCH ×2 (09:53→21:52)
[2022-05-04 19:54] VITALS: TEMP 98.1
[2022-05-04] MEDS: ACIDOPHILUS/BULGARICUS CHEW TAB GT SCH (21:51)
[2022-05-04] MEDS: ASCORBIC ACID 500 MG TABLET GT SCH (21:51)
[2022-05-04] MEDS: NORMAL SALINE NASAL 45 ML BOTTLE NS SCH (21:51)
[2022-05-05] MEDS: POLYVINYL ALCOHOL OPHT DROPS 15 ML BOTTLE EACHEYE SCH ×3 (05:57→22:18)
[2022-05-05] MEDS: ARGININE/GLUTAMINE/CALCIUM BMB 1 EACH POWD.PACK GT SCH ×2 (05:58→18:53)
[2022-05-05] MEDS: FAMOTIDINE 20 MG TABLET GT SCH ×2 (05:58→18:53)
[2022-05-05] MEDS: PROTEIN SUPPLEMENT (PROSTAT) 30 ML LIQUID GT SCH ×3 (05:58→22:00)
[2022-05-05 07:42] VITALS: TEMP 97.3
[2022-05-05] MEDS: HYDROGEN PEROXIDE 3% 118 ML BOTTLE TP SCH ×2 (08:30→20:55)
[2022-05-05] MEDS: ACETAMINOPHEN 650 MG/20.3 ML LIQUID UDC GT SCH ×2 (09:18→20:32)
[2022-05-05] MEDS: levETIRAcetam 500 MG/5 ML LIQUID UDC GT SCH ×2 (09:18→20:36)
[2022-05-05] MEDS: POTASSIUM CHLORIDE 40 MEQ/30 ML LIQUID UDC GT SCH (09:19)
[2022-05-05] MEDS: FUROSEMIDE 20 MG TABLET GT SCH (09:19)
[2022-05-05] MEDS: DIGOXIN 125 MCG TABLET GT SCH (09:19)
[2022-05-05] MEDS: REMEDY ESSENTIAL ZINC PASTE 113 GM TP SCH ×2 (09:20→20:36)
[2022-05-05] MEDS: MEDIHONEY= THERAHONEY 1.5 OZ TUBE TP SCH ×2 (09:20→20:36)
[2022-05-05] MEDS: TRIAMCINOLONE ACET 0.1% CREAM 15 GM TUBE TP SCH ×2 (09:20→20:36)
[2022-05-05] MEDS: SODIUM HYPOCHLORITE 0.125% (QUARTER STRENGTH) 473 ML BOTTLE TP SCH ×2 (09:20→20:36)
[2022-05-05] MEDS: NYSTATIN CREAM 30 GM TUBE TP SCH ×2 (09:20→20:36)
[2022-05-05 20:00] VITALS: TEMP 97.9
[2022-05-05] MEDS: NORMAL SALINE NASAL 45 ML BOTTLE NS SCH (20:36)
[2022-05-05] MEDS: ASCORBIC ACID 500 MG TABLET GT SCH (20:36)
[2022-05-05] MEDS: GLUCERNA 1.2 1000ML LIQUID GT PRN (20:39)
[2022-05-05] MEDS: ACIDOPHILUS/BULGARICUS CHEW TAB GT SCH (20:39)
[2022-05-06] MEDS: POLYVINYL ALCOHOL OPHT DROPS 15 ML BOTTLE EACHEYE SCH ×3 (05:56→22:00)
[2022-05-06] MEDS: ARGININE/GLUTAMINE/CALCIUM BMB 1 EACH POWD.PACK GT SCH ×2 (05:57→18:00)
[2022-05-06] MEDS: PROTEIN SUPPLEMENT (PROSTAT) 30 ML LIQUID GT SCH ×3 (05:57→22:00)
[2022-05-06] MEDS: FAMOTIDINE 20 MG TABLET GT SCH ×2 (05:57→18:00)
[2022-05-06 07:35] VITALS: TEMP 97.4
[2022-05-06] MEDS: ACETAMINOPHEN 650 MG/20.3 ML LIQUID UDC GT SCH ×2 (08:30→20:02)
[2022-05-06] MEDS: HYDROGEN PEROXIDE 3% 118 ML BOTTLE TP SCH ×2 (09:15→20:42)
[2022-05-06] MEDS: levETIRAcetam 500 MG/5 ML LIQUID UDC GT SCH ×2 (09:41→20:03)
[2022-05-06] MEDS: TRIAMCINOLONE ACET 0.1% CREAM 15 GM TUBE TP SCH ×2 (09:42→20:03)
[2022-05-06] MEDS: MEDIHONEY= THERAHONEY 1.5 OZ TUBE TP SCH ×2 (09:42→20:04)
[2022-05-06] MEDS: NYSTATIN CREAM 30 GM TUBE TP SCH ×2 (09:42→20:03)
[2022-05-06] MEDS: POTASSIUM CHLORIDE 40 MEQ/30 ML LIQUID UDC GT SCH (09:42)
[2022-05-06] MEDS: DIGOXIN 125 MCG TABLET GT SCH (09:42)
[2022-05-06] MEDS: SODIUM HYPOCHLORITE 0.125% (QUARTER STRENGTH) 473 ML BOTTLE TP SCH ×2 (09:42→20:03)
[2022-05-06] MEDS: FUROSEMIDE 20 MG TABLET GT SCH (09:42)
[2022-05-06] MEDS: REMEDY ESSENTIAL ZINC PASTE 113 GM TP SCH ×2 (09:42→20:03)
[2022-05-06] MEDS ORDERED: DIATR MEGLU/DIATRIZOATE SODIUM 30 ML BOTTLE PO ONE (15:10)
[2022-05-06 20:00] VITALS: TEMP 98
[2022-05-06] MEDS: ACIDOPHILUS/BULGARICUS CHEW TAB GT SCH (20:02)
[2022-05-06] MEDS: NORMAL SALINE NASAL 45 ML BOTTLE NS SCH (20:03)
[2022-05-06] MEDS: ASCORBIC ACID 500 MG TABLET GT SCH (20:03)
[2022-05-07] MEDS: PROTEIN SUPPLEMENT (PROSTAT) 30 ML LIQUID GT SCH ×3 (05:25→22:00)
[2022-05-07] MEDS: FAMOTIDINE 20 MG TABLET GT SCH ×2 (05:25→17:50)
[2022-05-07] MEDS: POLYVINYL ALCOHOL OPHT DROPS 15 ML BOTTLE EACHEYE SCH ×3 (05:25→22:27)
[2022-05-07] MEDS: ARGININE/GLUTAMINE/CALCIUM BMB 1 EACH POWD.PACK GT SCH ×2 (05:25→17:50)
[2022-05-07 07:55] VITALS: TEMP 98.5
[2022-05-07] MEDS: levETIRAcetam 500 MG/5 ML LIQUID UDC GT SCH ×2 (08:53→20:19)
[2022-05-07] MEDS: ACETAMINOPHEN 650 MG/20.3 ML LIQUID UDC GT SCH ×2 (08:53→20:19)
[2022-05-07] MEDS: DIGOXIN 125 MCG TABLET GT SCH (08:54)
[2022-05-07] MEDS: FUROSEMIDE 20 MG TABLET GT SCH (08:54)
[2022-05-07] MEDS: POTASSIUM CHLORIDE 40 MEQ/30 ML LIQUID UDC GT SCH (08:54)
[2022-05-07] MEDS: MEDIHONEY= THERAHONEY 1.5 OZ TUBE TP SCH ×2 (09:00→20:21)
[2022-05-07] MEDS: NYSTATIN CREAM 30 GM TUBE TP SCH ×2 (09:00→20:21)
[2022-05-07] MEDS: TRIAMCINOLONE ACET 0.1% CREAM 15 GM TUBE TP SCH ×2 (09:00→20:20)
[2022-05-07] MEDS: SODIUM HYPOCHLORITE 0.125% (QUARTER STRENGTH) 473 ML BOTTLE TP SCH ×2 (09:00→20:20)
[2022-05-07] MEDS: REMEDY ESSENTIAL ZINC PASTE 113 GM TP SCH ×2 (09:00→20:21)
[2022-05-07] MEDS: HYDROGEN PEROXIDE 3% 118 ML BOTTLE TP SCH ×2 (09:06→19:26)
[2022-05-07] MEDS: GLUCERNA 1.2 1000ML LIQUID GT PRN (12:02)
[2022-05-07 20:00] VITALS: TEMP 98.1
[2022-05-07] MEDS: ASCORBIC ACID 500 MG TABLET GT SCH (20:19)
[2022-05-07] MEDS: ACIDOPHILUS/BULGARICUS CHEW TAB GT SCH (20:19)
[2022-05-07] MEDS: NORMAL SALINE NASAL 45 ML BOTTLE NS SCH (20:20)
[2022-05-08] MEDS: PROTEIN SUPPLEMENT (PROSTAT) 30 ML LIQUID GT SCH ×3 (05:40→21:25)
[2022-05-08] MEDS: ARGININE/GLUTAMINE/CALCIUM BMB 1 EACH POWD.PACK GT SCH ×2 (05:40→17:25)
[2022-05-08] MEDS: POLYVINYL ALCOHOL OPHT DROPS 15 ML BOTTLE EACHEYE SCH ×3 (05:40→21:25)
[2022-05-08] MEDS: FAMOTIDINE 20 MG TABLET GT SCH ×2 (05:40→17:25)
[2022-05-08] MEDS: HYDROGEN PEROXIDE 3% 118 ML BOTTLE TP SCH ×2 (06:29→19:11)
[2022-05-08 07:57] VITALS: TEMP 97.7
[2022-05-08] MEDS: ACETAMINOPHEN 650 MG/20.3 ML LIQUID UDC GT SCH ×2 (08:30→21:23)
[2022-05-08] MEDS: POTASSIUM CHLORIDE 40 MEQ/30 ML LIQUID UDC GT SCH (09:00)
[2022-05-08] MEDS: DIGOXIN 125 MCG TABLET GT SCH (09:00)
[2022-05-08] MEDS: SODIUM HYPOCHLORITE 0.125% (QUARTER STRENGTH) 473 ML BOTTLE TP SCH ×2 (09:00→21:25)
[2022-05-08] MEDS: NYSTATIN CREAM 30 GM TUBE TP SCH ×2 (09:00→21:25)
[2022-05-08] MEDS: REMEDY ESSENTIAL ZINC PASTE 113 GM TP SCH ×2 (09:00→21:25)
[2022-05-08] MEDS: FUROSEMIDE 20 MG TABLET GT SCH (09:00)
[2022-05-08] MEDS: TRIAMCINOLONE ACET 0.1% CREAM 15 GM TUBE TP SCH ×2 (09:00→21:25)
[2022-05-08] MEDS: MEDIHONEY= THERAHONEY 1.5 OZ TUBE TP SCH ×2 (09:00→21:25)
[2022-05-08] MEDS: levETIRAcetam 500 MG/5 ML LIQUID UDC GT SCH ×2 (09:59→21:24)
[2022-05-08 20:25] VITALS: TEMP 98.8
[2022-05-08] MEDS: ACIDOPHILUS/BULGARICUS CHEW TAB GT SCH (21:23)
[2022-05-08] MEDS: ASCORBIC ACID 500 MG TABLET GT SCH (21:25)
[2022-05-08] MEDS: NORMAL SALINE NASAL 45 ML BOTTLE NS SCH (21:25)
[2022-05-09] MEDS: FAMOTIDINE 20 MG TABLET GT SCH ×2 (05:24→18:10)
[2022-05-09] MEDS: PROTEIN SUPPLEMENT (PROSTAT) 30 ML LIQUID GT SCH ×3 (05:24→22:00)
[2022-05-09] MEDS: POLYVINYL ALCOHOL OPHT DROPS 15 ML BOTTLE EACHEYE SCH ×3 (05:24→23:00)
[2022-05-09] MEDS: ARGININE/GLUTAMINE/CALCIUM BMB 1 EACH POWD.PACK GT SCH ×2 (05:24→18:10)
[2022-05-09 07:24] VITALS: TEMP 98.5
[2022-05-09] MEDS: HYDROGEN PEROXIDE 3% 118 ML BOTTLE TP SCH ×2 (09:00→19:15)
[2022-05-09] MEDS: ACETAMINOPHEN 650 MG/20.3 ML LIQUID UDC GT SCH ×2 (09:25→20:14)
[2022-05-09] MEDS: POTASSIUM CHLORIDE 40 MEQ/30 ML LIQUID UDC GT SCH (09:26)
[2022-05-09] MEDS: FUROSEMIDE 20 MG TABLET GT SCH (09:26)
[2022-05-09] MEDS: DIGOXIN 125 MCG TABLET GT SCH (09:26)
[2022-05-09] MEDS: levETIRAcetam 500 MG/5 ML LIQUID UDC GT SCH ×2 (09:26→20:15)
[2022-05-09] MEDS: REMEDY ESSENTIAL ZINC PASTE 113 GM TP SCH ×2 (09:27→20:16)
[2022-05-09] MEDS: SODIUM HYPOCHLORITE 0.125% (QUARTER STRENGTH) 473 ML BOTTLE TP SCH ×2 (09:27→20:16)
[2022-05-09] MEDS: NYSTATIN CREAM 30 GM TUBE TP SCH ×2 (09:27→20:16)
[2022-05-09] MEDS: TRIAMCINOLONE ACET 0.1% CREAM 15 GM TUBE TP SCH ×2 (09:27→20:16)
[2022-05-09] MEDS: MEDIHONEY= THERAHONEY 1.5 OZ TUBE TP SCH ×2 (09:27→20:17)
[2022-05-09 11:04] LABS: BASOPHILS % (AUTO) 0.5 % (0.0-2.0); EOSINOPHILS # (AUTO) 0.2 K/uL (0.0-0.7); HEMATOCRIT 35.1 % (31.2-41.9); HEMOGLOBIN 11.4 g/dL (10.9-14.3); LYMPHOCYTES # (AUTO) 1.8 K/uL (0.8-4.8); LYMPHOCYTES % (AUTO) 29.6 % (20.5-51.5); MEAN CORPUSCULAR HEMOGLOBIN 28.9 uug (24.7-32.8); MEAN CORPUSCULAR HGB CONC 32 g/dL (32.3-35.6); MEAN CORPUSCULAR VOLUME 89.2 fL (75.5-95.3); MONOCYTES # (AUTO) 0.6 K/uL (0.1-1.30); MONOCYTES % (AUTO) 9.5 % (0.0-11.0); NEUTROPHILS # (AUTO) 3.4 K/uL (1.8-8.9); NEUTROPHILS % (AUTO) 56.4 % (38.5-71.5); PLATELET COUNT (AUTO) 237 K/uL (179-408); RED BLOOD CELL COUNT(AUTO) 3.94 MIL/uL (3.63-4.92); RED CELL DISTRIBUTION WIDTH 16.5 % (12.3-17.7)
[2022-05-09 11:07] LABS: DIFFERENTIAL COMMENT 1
[2022-05-09 11:15] LABS: ALBUMIN 2.3 g/dL (3.4-5.0); BILIRUBIN,TOTAL 0.4 mg/dL (0.2-1.0); CALCIUM 8.8 mg/dL (8.5-10.1); CREATININE 0.6 mg/dL (0.6-1.3); MAGNESIUM 2.3 mg/dL (1.8-2.4); PHOSPHOROUS 3.8 mg/dL (2.5-4.9); POTASSIUM 4.3 mmol/L (3.5-5.1); TOTAL PROTEIN, SERUM 7.4 g/dL (6.4-8.2)
[2022-05-09 19:52] VITALS: TEMP 98.1
[2022-05-09] MEDS: ACIDOPHILUS/BULGARICUS CHEW TAB GT SCH (20:14)
[2022-05-09] MEDS: NORMAL SALINE NASAL 45 ML BOTTLE NS SCH (20:16)
[2022-05-09] MEDS: ASCORBIC ACID 500 MG TABLET GT SCH (20:19)
[2022-05-10] MEDS: FAMOTIDINE 20 MG TABLET GT SCH ×2 (05:45→17:16)
[2022-05-10] MEDS: POLYVINYL ALCOHOL OPHT DROPS 15 ML BOTTLE EACHEYE SCH ×3 (05:45→22:51)
[2022-05-10] MEDS: PROTEIN SUPPLEMENT (PROSTAT) 30 ML LIQUID GT SCH ×3 (05:45→22:52)
[2022-05-10] MEDS: ARGININE/GLUTAMINE/CALCIUM BMB 1 EACH POWD.PACK GT SCH ×2 (05:45→17:16)
[2022-05-10 07:10] VITALS: TEMP 98.8
[2022-05-10] MEDS: HYDROGEN PEROXIDE 3% 118 ML BOTTLE TP SCH ×2 (07:21→20:31)
[2022-05-10] MEDS: POTASSIUM CHLORIDE 40 MEQ/30 ML LIQUID UDC GT SCH (08:06)
[2022-05-10] MEDS: FUROSEMIDE 20 MG TABLET GT SCH (08:06)
[2022-05-10] MEDS: DIGOXIN 125 MCG TABLET GT SCH (08:06)
[2022-05-10] MEDS: levETIRAcetam 500 MG/5 ML LIQUID UDC GT SCH ×2 (08:06→20:46)
[2022-05-10] MEDS: ACETAMINOPHEN 650 MG/20.3 ML LIQUID UDC GT SCH ×2 (09:25→20:46)
[2022-05-10] MEDS: MEDIHONEY= THERAHONEY 1.5 OZ TUBE TP SCH ×2 (10:00→20:46)
[2022-05-10] MEDS: SODIUM HYPOCHLORITE 0.125% (QUARTER STRENGTH) 473 ML BOTTLE TP SCH ×2 (10:00→20:46)
[2022-05-10] MEDS: TRIAMCINOLONE ACET 0.1% CREAM 15 GM TUBE TP SCH ×2 (10:00→20:46)
[2022-05-10] MEDS: NYSTATIN CREAM 30 GM TUBE TP SCH ×2 (10:00→20:46)
[2022-05-10] MEDS: REMEDY ESSENTIAL ZINC PASTE 113 GM TP SCH ×2 (10:00→20:46)
[2022-05-10 19:49] VITALS: TEMP 98.1
[2022-05-10] MEDS: ACIDOPHILUS/BULGARICUS CHEW TAB GT SCH (20:46)
[2022-05-10] MEDS: NORMAL SALINE NASAL 45 ML BOTTLE NS SCH (20:46)
[2022-05-10] MEDS: ASCORBIC ACID 500 MG TABLET GT SCH (20:46)
[2022-05-11] MEDS: POLYVINYL ALCOHOL OPHT DROPS 15 ML BOTTLE EACHEYE SCH ×3 (05:09→21:57)
[2022-05-11] MEDS: FAMOTIDINE 20 MG TABLET GT SCH ×2 (05:09→17:13)
[2022-05-11] MEDS: ARGININE/GLUTAMINE/CALCIUM BMB 1 EACH POWD.PACK GT SCH ×2 (05:09→17:13)
[2022-05-11] MEDS: PROTEIN SUPPLEMENT (PROSTAT) 30 ML LIQUID GT SCH ×3 (05:10→21:57)
[2022-05-11 07:21] VITALS: TEMP 99
[2022-05-11] MEDS: HYDROGEN PEROXIDE 3% 118 ML BOTTLE TP SCH ×2 (07:58→21:26)
[2022-05-11 07:59] VITALS: O2SAT 99
[2022-05-11] MEDS: POTASSIUM CHLORIDE 40 MEQ/30 ML LIQUID UDC GT SCH (08:01)
[2022-05-11] MEDS: levETIRAcetam 500 MG/5 ML LIQUID UDC GT SCH ×2 (08:01→20:52)
[2022-05-11] MEDS: FUROSEMIDE 20 MG TABLET GT SCH (08:01)
[2022-05-11] MEDS: DIGOXIN 125 MCG TABLET GT SCH (08:01)
[2022-05-11] MEDS: ACETAMINOPHEN 650 MG/20.3 ML LIQUID UDC GT SCH ×2 (09:30→20:52)
[2022-05-11] MEDS: REMEDY ESSENTIAL ZINC PASTE 113 GM TP SCH ×2 (10:00→20:52)
[2022-05-11] MEDS: TRIAMCINOLONE ACET 0.1% CREAM 15 GM TUBE TP SCH ×2 (10:00→20:52)
[2022-05-11] MEDS: SODIUM HYPOCHLORITE 0.125% (QUARTER STRENGTH) 473 ML BOTTLE TP SCH ×2 (10:00→20:52)
[2022-05-11] MEDS: MEDIHONEY= THERAHONEY 1.5 OZ TUBE TP SCH ×2 (10:00→20:53)
[2022-05-11] MEDS: NYSTATIN CREAM 30 GM TUBE TP SCH ×2 (10:00→20:52)
[2022-05-11] MEDS: GLUCERNA 1.2 1000ML LIQUID GT PRN (18:11)
[2022-05-11 20:00] VITALS: TEMP 98.1
[2022-05-11] MEDS: ASCORBIC ACID 500 MG TABLET GT SCH (20:52)
[2022-05-11] MEDS: NORMAL SALINE NASAL 45 ML BOTTLE NS SCH (20:52)
[2022-05-11] MEDS: ACIDOPHILUS/BULGARICUS CHEW TAB GT SCH (20:52)
[2022-05-12] MEDS: FAMOTIDINE 20 MG TABLET GT SCH ×2 (05:18→17:02)
[2022-05-12] MEDS: ARGININE/GLUTAMINE/CALCIUM BMB 1 EACH POWD.PACK GT SCH ×2 (05:18→17:02)
[2022-05-12] MEDS: POLYVINYL ALCOHOL OPHT DROPS 15 ML BOTTLE EACHEYE SCH ×3 (05:18→21:15)
[2022-05-12] MEDS: PROTEIN SUPPLEMENT (PROSTAT) 30 ML LIQUID GT SCH ×3 (05:19→21:15)
[2022-05-12 07:16] VITALS: TEMP 98.6
[2022-05-12 07:30] LABS: BASOPHILS % (AUTO) 0.7 % (0.0-2.0); EOSINOPHILS # (AUTO) 0.3 K/uL (0.0-0.7); HEMATOCRIT 33.4 % (31.2-41.9); HEMOGLOBIN 10.9 g/dL (10.9-14.3); LYMPHOCYTES # (AUTO) 1.4 K/uL (0.8-4.8); LYMPHOCYTES % (AUTO) 26.2 % (20.5-51.5); MEAN CORPUSCULAR HEMOGLOBIN 28.9 uug (24.7-32.8); MEAN CORPUSCULAR HGB CONC 33 g/dL (32.3-35.6); MEAN CORPUSCULAR VOLUME 88.6 fL (75.5-95.3); MONOCYTES # (AUTO) 0.6 K/uL (0.1-1.30); NEUTROPHILS % (AUTO) 57.1 % (38.5-71.5); PLATELET COUNT (AUTO) 212 K/uL (179-408); RED BLOOD CELL COUNT(AUTO) 3.76 MIL/uL (3.63-4.92); RED CELL DISTRIBUTION WIDTH 16.7 % (12.3-17.7); WHITE BLOOD COUNT (AUTO) 5.2 K/uL (3.8-11.8)
[2022-05-12 07:48] LABS: CALCIUM 8.9 mg/dL (8.5-10.1); CARBON DIOXIDE 28 mmol/L (21-32); CHLORIDE 106 mmol/L (98-107); CREATININE 0.5 mg/dL (0.6-1.3); GLUCOSE 100 mg/dL (74-106); MAGNESIUM 2.3 mg/dL (1.8-2.4); PHOSPHOROUS 4.1 mg/dL (2.5-4.9); POTASSIUM 3.9 mmol/L (3.5-5.1); SODIUM SERUM 141 mmol/L (136-145); UREA NITROGEN, BLOOD 28 mg/dL (7-18)
[2022-05-12 07:50] LABS: DIFFERENTIAL COMMENT 1
[2022-05-12] MEDS: ACETAMINOPHEN 650 MG/20.3 ML LIQUID UDC GT SCH ×2 (08:05→20:19)
[2022-05-12] MEDS: levETIRAcetam 500 MG/5 ML LIQUID UDC GT SCH ×2 (08:05→20:19)
[2022-05-12] MEDS: DIGOXIN 125 MCG TABLET GT SCH (08:06)
[2022-05-12] MEDS: POTASSIUM CHLORIDE 40 MEQ/30 ML LIQUID UDC GT SCH (08:06)
[2022-05-12] MEDS: FUROSEMIDE 20 MG TABLET GT SCH (08:06)
[2022-05-12] MEDS: HYDROGEN PEROXIDE 3% 118 ML BOTTLE TP SCH ×2 (09:00→19:47)
[2022-05-12] MEDS: MEDIHONEY= THERAHONEY 1.5 OZ TUBE TP SCH ×2 (09:33→20:20)
[2022-05-12] MEDS: REMEDY ESSENTIAL ZINC PASTE 113 GM TP SCH ×2 (09:33→20:19)
[2022-05-12] MEDS: TRIAMCINOLONE ACET 0.1% CREAM 15 GM TUBE TP SCH ×2 (09:33→20:19)
[2022-05-12] MEDS: NYSTATIN CREAM 30 GM TUBE TP SCH ×2 (09:33→20:19)
[2022-05-12] MEDS: SODIUM HYPOCHLORITE 0.125% (QUARTER STRENGTH) 473 ML BOTTLE TP SCH ×2 (09:33→20:19)
[2022-05-12 20:00] VITALS: TEMP 97.9
[2022-05-12] MEDS: ACIDOPHILUS/BULGARICUS CHEW TAB GT SCH (20:19)
[2022-05-12] MEDS: ASCORBIC ACID 500 MG TABLET GT SCH (20:19)
[2022-05-12] MEDS: NORMAL SALINE NASAL 45 ML BOTTLE NS SCH (20:19)
[2022-05-13] MEDS: PROTEIN SUPPLEMENT (PROSTAT) 30 ML LIQUID GT SCH ×3 (05:10→22:00)
[2022-05-13] MEDS: POLYVINYL ALCOHOL OPHT DROPS 15 ML BOTTLE EACHEYE SCH ×3 (05:10→22:30)
[2022-05-13] MEDS: ARGININE/GLUTAMINE/CALCIUM BMB 1 EACH POWD.PACK GT SCH ×2 (05:10→17:11)
[2022-05-13] MEDS: FAMOTIDINE 20 MG TABLET GT SCH ×2 (05:10→17:11)
[2022-05-13 07:47] VITALS: TEMP 97.5
[2022-05-13] MEDS: HYDROGEN PEROXIDE 3% 118 ML BOTTLE TP SCH ×2 (08:07→21:18)
[2022-05-13] MEDS: levETIRAcetam 500 MG/5 ML LIQUID UDC GT SCH ×2 (08:16→20:04)
[2022-05-13] MEDS: ACETAMINOPHEN 650 MG/20.3 ML LIQUID UDC GT SCH ×2 (08:16→20:04)
[2022-05-13] MEDS: POTASSIUM CHLORIDE 40 MEQ/30 ML LIQUID UDC GT SCH (08:17)
[2022-05-13] MEDS: FUROSEMIDE 20 MG TABLET GT SCH (08:17)
[2022-05-13] MEDS: DIGOXIN 125 MCG TABLET GT SCH (08:17)
[2022-05-13] MEDS: NYSTATIN CREAM 30 GM TUBE TP SCH ×2 (09:00→20:06)
[2022-05-13] MEDS: TRIAMCINOLONE ACET 0.1% CREAM 15 GM TUBE TP SCH ×2 (09:00→20:06)
[2022-05-13] MEDS: REMEDY ESSENTIAL ZINC PASTE 113 GM TP SCH ×2 (09:00→20:06)
[2022-05-13] MEDS: SODIUM HYPOCHLORITE 0.125% (QUARTER STRENGTH) 473 ML BOTTLE TP SCH ×2 (09:00→20:05)
[2022-05-13] MEDS: MEDIHONEY= THERAHONEY 1.5 OZ TUBE TP SCH ×2 (09:00→20:06)
[2022-05-13 19:55] VITALS: TEMP 98.1
[2022-05-13] MEDS: ACIDOPHILUS/BULGARICUS CHEW TAB GT SCH (20:04)
[2022-05-13] MEDS: ASCORBIC ACID 500 MG TABLET GT SCH (20:04)
[2022-05-13] MEDS: NORMAL SALINE NASAL 45 ML BOTTLE NS SCH (20:05)
[2022-05-14] MEDS: POLYVINYL ALCOHOL OPHT DROPS 15 ML BOTTLE EACHEYE SCH ×3 (05:04→22:00)
[2022-05-14] MEDS: ARGININE/GLUTAMINE/CALCIUM BMB 1 EACH POWD.PACK GT SCH ×2 (05:04→17:57)
[2022-05-14] MEDS: FAMOTIDINE 20 MG TABLET GT SCH ×2 (05:04→17:57)
[2022-05-14] MEDS: PROTEIN SUPPLEMENT (PROSTAT) 30 ML LIQUID GT SCH ×3 (05:04→22:34)
[2022-05-14 07:41] VITALS: TEMP 97.8
[2022-05-14] MEDS ORDERED: SODIUM HYPOCHLORITE 0.125% (QUARTER STRENGTH) 473 ML BOTTLE TP PRN (08:00)
[2022-05-14] MEDS ORDERED: NYSTATIN CREAM 30 GM TUBE TP PRN (08:00)
[2022-05-14] MEDS ORDERED: TRIAMCINOLONE ACET 0.1% CREAM 15 GM TUBE TP PRN (08:00)
[2022-05-14] MEDS ORDERED: MEDIHONEY= THERAHONEY 1.5 OZ TUBE TOP PRN (08:00)
[2022-05-14] MEDS: HYDROGEN PEROXIDE 3% 118 ML BOTTLE TP SCH ×2 (08:21→19:00)
[2022-05-14] MEDS: ACETAMINOPHEN 650 MG/20.3 ML LIQUID UDC GT SCH ×2 (08:50→20:10)
[2022-05-14] MEDS: levETIRAcetam 500 MG/5 ML LIQUID UDC GT SCH ×2 (08:50→20:10)
[2022-05-14] MEDS: FUROSEMIDE 20 MG TABLET GT SCH (08:54)
[2022-05-14] MEDS: POTASSIUM CHLORIDE 40 MEQ/30 ML LIQUID UDC GT SCH (08:54)
[2022-05-14] MEDS: MEDIHONEY= THERAHONEY 1.5 OZ TUBE TOP SCH ×2 (08:54→20:11)
[2022-05-14] MEDS: SODIUM HYPOCHLORITE 0.125% (QUARTER STRENGTH) 473 ML BOTTLE TP SCH ×2 (08:54→20:12)
[2022-05-14] MEDS: DIGOXIN 125 MCG TABLET GT SCH (08:54)
[2022-05-14] MEDS: REMEDY ESSENTIAL ZINC PASTE 113 GM TP SCH ×4 (08:55→20:12)
[2022-05-14] MEDS: NYSTATIN CREAM 30 GM TUBE TP SCH ×4 (08:55→20:12)
[2022-05-14] MEDS: TRIAMCINOLONE ACET 0.1% CREAM 15 GM TUBE TP SCH ×2 (08:55→20:12)
[2022-05-14 20:00] VITALS: TEMP 98
[2022-05-14] MEDS: ACIDOPHILUS/BULGARICUS CHEW TAB GT SCH (20:10)
[2022-05-14] MEDS: ASCORBIC ACID 500 MG TABLET GT SCH (20:11)
[2022-05-14] MEDS: NORMAL SALINE NASAL 45 ML BOTTLE NS SCH (20:11)
[2022-05-15] MEDS: GLUCERNA 1.2 1000ML LIQUID GT PRN (00:15)
[2022-05-15] MEDS: FAMOTIDINE 20 MG TABLET GT SCH ×2 (06:35→17:35)
[2022-05-15] MEDS: ARGININE/GLUTAMINE/CALCIUM BMB 1 EACH POWD.PACK GT SCH ×2 (06:35→17:35)
[2022-05-15] MEDS: PROTEIN SUPPLEMENT (PROSTAT) 30 ML LIQUID GT SCH ×3 (06:35→22:20)
[2022-05-15] MEDS: POLYVINYL ALCOHOL OPHT DROPS 15 ML BOTTLE EACHEYE SCH ×3 (06:35→22:20)
[2022-05-15 07:30] VITALS: TEMP 97.4
[2022-05-15] MEDS: levETIRAcetam 500 MG/5 ML LIQUID UDC GT SCH ×2 (08:15→20:52)
[2022-05-15] MEDS: ACETAMINOPHEN 650 MG/20.3 ML LIQUID UDC GT SCH ×2 (08:15→20:52)
[2022-05-15] MEDS: DIGOXIN 125 MCG TABLET GT SCH (08:16)
[2022-05-15] MEDS: FUROSEMIDE 20 MG TABLET GT SCH (08:16)
[2022-05-15] MEDS: SODIUM HYPOCHLORITE 0.125% (QUARTER STRENGTH) 473 ML BOTTLE TP SCH ×2 (08:17→20:53)
[2022-05-15] MEDS: POTASSIUM CHLORIDE 40 MEQ/30 ML LIQUID UDC GT SCH (08:17)
[2022-05-15] MEDS: MEDIHONEY= THERAHONEY 1.5 OZ TUBE TOP SCH ×2 (08:17→20:53)
[2022-05-15] MEDS: TRIAMCINOLONE ACET 0.1% CREAM 15 GM TUBE TP SCH ×2 (08:17→20:53)
[2022-05-15] MEDS: NYSTATIN CREAM 30 GM TUBE TP SCH ×4 (08:18→20:53)
[2022-05-15] MEDS: REMEDY ESSENTIAL ZINC PASTE 113 GM TP SCH ×4 (08:18→20:54)
[2022-05-15] MEDS: HYDROGEN PEROXIDE 3% 118 ML BOTTLE TP SCH ×2 (08:26→20:58)
[2022-05-15 19:53] VITALS: TEMP 98.6
[2022-05-15] MEDS: ACIDOPHILUS/BULGARICUS CHEW TAB GT SCH (20:52)
[2022-05-15] MEDS: ASCORBIC ACID 500 MG TABLET GT SCH (20:52)
[2022-05-15] MEDS: NORMAL SALINE NASAL 45 ML BOTTLE NS SCH (21:00)
[2022-05-16] MEDS: FAMOTIDINE 20 MG TABLET GT SCH ×2 (06:01→17:50)
[2022-05-16] MEDS: PROTEIN SUPPLEMENT (PROSTAT) 30 ML LIQUID GT SCH ×3 (06:01→22:00)
[2022-05-16] MEDS: ARGININE/GLUTAMINE/CALCIUM BMB 1 EACH POWD.PACK GT SCH ×2 (06:01→17:50)
[2022-05-16] MEDS: POLYVINYL ALCOHOL OPHT DROPS 15 ML BOTTLE EACHEYE SCH ×3 (06:01→22:00)
[2022-05-16 07:21] VITALS: TEMP 98.6
[2022-05-16] MEDS: HYDROGEN PEROXIDE 3% 118 ML BOTTLE TP SCH ×2 (08:01→21:28)
[2022-05-16] MEDS: DIGOXIN 125 MCG TABLET GT SCH (08:31)
[2022-05-16] MEDS: levETIRAcetam 500 MG/5 ML LIQUID UDC GT SCH ×2 (08:31→21:00)
[2022-05-16] MEDS: ACETAMINOPHEN 650 MG/20.3 ML LIQUID UDC GT SCH ×2 (08:31→20:30)
[2022-05-16] MEDS: REMEDY ESSENTIAL ZINC PASTE 113 GM TP SCH ×4 (08:34→21:00)
[2022-05-16] MEDS: MEDIHONEY= THERAHONEY 1.5 OZ TUBE TOP SCH ×2 (08:34→21:00)
[2022-05-16] MEDS: TRIAMCINOLONE ACET 0.1% CREAM 15 GM TUBE TP SCH (08:34)
[2022-05-16] MEDS: FUROSEMIDE 20 MG TABLET GT SCH (08:34)
[2022-05-16] MEDS: SODIUM HYPOCHLORITE 0.125% (QUARTER STRENGTH) 473 ML BOTTLE TP SCH (08:34)
[2022-05-16] MEDS: POTASSIUM CHLORIDE 40 MEQ/30 ML LIQUID UDC GT SCH (08:34)
[2022-05-16] MEDS: NYSTATIN CREAM 30 GM TUBE TP SCH ×3 (08:34→21:00)
[2022-05-16] MEDS ORDERED: CLOTRIMAZOLE 1% CREAM 30 GM TUBE TP PRN (13:30)
[2022-05-16] MEDS ORDERED: COD LIVER OIL/ZINC OXIDE OINT 113 GM TUBE TP PRN (13:30)
[2022-05-16] MEDS ORDERED: MEDIHONEY= THERAHONEY 1.5 OZ TUBE TOP PRN (13:30)
[2022-05-16] MEDS: NEOMY/BACITRA/POLYMYXIN B OINT UD PACKET TP SCH (17:50)
[2022-05-16 20:34] VITALS: TEMP 98.4
[2022-05-16] MEDS: NORMAL SALINE NASAL 45 ML BOTTLE NS SCH (21:00)
[2022-05-16] MEDS: ASCORBIC ACID 500 MG TABLET GT SCH (21:00)
[2022-05-16] MEDS: CLOTRIMAZOLE 1% CREAM 30 GM TUBE TP SCH (21:00)
[2022-05-16] MEDS: COD LIVER OIL/ZINC OXIDE OINT 113 GM TUBE TP SCH (21:00)
[2022-05-16] MEDS: ACIDOPHILUS/BULGARICUS CHEW TAB GT SCH (21:00)
[2022-05-17] MEDS: PROTEIN SUPPLEMENT (PROSTAT) 30 ML LIQUID GT SCH ×3 (06:00→21:00)
[2022-05-17] MEDS: FAMOTIDINE 20 MG TABLET GT SCH ×2 (06:00→17:23)
[2022-05-17] MEDS: POLYVINYL ALCOHOL OPHT DROPS 15 ML BOTTLE EACHEYE SCH ×3 (06:00→20:55)
[2022-05-17] MEDS: ARGININE/GLUTAMINE/CALCIUM BMB 1 EACH POWD.PACK GT SCH ×2 (06:00→17:23)
[2022-05-17 07:24] VITALS: TEMP 98.9
[2022-05-17] MEDS: HYDROGEN PEROXIDE 3% 118 ML BOTTLE TP SCH ×2 (08:21→20:05)
[2022-05-17] MEDS: ACETAMINOPHEN 650 MG/20.3 ML LIQUID UDC GT SCH ×2 (09:13→20:54)
[2022-05-17] MEDS: levETIRAcetam 500 MG/5 ML LIQUID UDC GT SCH ×2 (09:13→20:52)
[2022-05-17] MEDS: DIGOXIN 125 MCG TABLET GT SCH (09:15)
[2022-05-17] MEDS: FUROSEMIDE 20 MG TABLET GT SCH (09:15)
[2022-05-17] MEDS: POTASSIUM CHLORIDE 40 MEQ/30 ML LIQUID UDC GT SCH (09:16)
[2022-05-17] MEDS: REMEDY ESSENTIAL ZINC PASTE 113 GM TP SCH ×4 (09:59→20:55)
[2022-05-17] MEDS: NYSTATIN CREAM 30 GM TUBE TP SCH ×2 (09:59→20:56)
[2022-05-17] MEDS: MEDIHONEY= THERAHONEY 1.5 OZ TUBE TOP SCH ×2 (09:59→21:01)
[2022-05-17] MEDS: COD LIVER OIL/ZINC OXIDE OINT 113 GM TUBE TP SCH ×2 (09:59→20:54)
[2022-05-17] MEDS: CLOTRIMAZOLE 1% CREAM 30 GM TUBE TP SCH ×2 (09:59→20:54)
[2022-05-17] MEDS: NEOMY/BACITRA/POLYMYXIN B OINT UD PACKET TP SCH (11:54)
[2022-05-17 20:20] VITALS: TEMP 98.6
[2022-05-17] MEDS: ACIDOPHILUS/BULGARICUS CHEW TAB GT SCH (20:54)
[2022-05-17] MEDS: ASCORBIC ACID 500 MG TABLET GT SCH (20:58)
[2022-05-17] MEDS: NORMAL SALINE NASAL 45 ML BOTTLE NS SCH (20:58)
[2022-05-18] MEDS: ARGININE/GLUTAMINE/CALCIUM BMB 1 EACH POWD.PACK GT SCH ×2 (05:26→17:00)
[2022-05-18] MEDS: FAMOTIDINE 20 MG TABLET GT SCH ×2 (05:26→17:00)
[2022-05-18] MEDS: POLYVINYL ALCOHOL OPHT DROPS 15 ML BOTTLE EACHEYE SCH ×3 (05:26→21:21)
[2022-05-18] MEDS: PROTEIN SUPPLEMENT (PROSTAT) 30 ML LIQUID GT SCH ×3 (05:27→21:22)
[2022-05-18 07:20] VITALS: TEMP 98.9
[2022-05-18] MEDS: HYDROGEN PEROXIDE 3% 118 ML BOTTLE TP SCH ×2 (07:23→19:22)
[2022-05-18] MEDS: ACETAMINOPHEN 650 MG/20.3 ML LIQUID UDC GT SCH ×2 (08:00→21:20)
[2022-05-18] MEDS: DIGOXIN 125 MCG TABLET GT SCH (08:01)
[2022-05-18] MEDS: levETIRAcetam 500 MG/5 ML LIQUID UDC GT SCH ×2 (08:01→21:20)
[2022-05-18] MEDS: FUROSEMIDE 20 MG TABLET GT SCH (08:01)
[2022-05-18] MEDS: POTASSIUM CHLORIDE 40 MEQ/30 ML LIQUID UDC GT SCH (08:01)
[2022-05-18] MEDS: NEOMY/BACITRA/POLYMYXIN B OINT UD PACKET TP SCH (09:00)
[2022-05-18] MEDS: COD LIVER OIL/ZINC OXIDE OINT 113 GM TUBE TP SCH ×2 (09:00→21:21)
[2022-05-18] MEDS: MEDIHONEY= THERAHONEY 1.5 OZ TUBE TOP SCH ×2 (09:00→21:20)
[2022-05-18] MEDS: CLOTRIMAZOLE 1% CREAM 30 GM TUBE TP SCH ×2 (09:00→21:21)
[2022-05-18] MEDS: REMEDY ESSENTIAL ZINC PASTE 113 GM TP SCH ×4 (09:00→21:21)
[2022-05-18] MEDS: NYSTATIN CREAM 30 GM TUBE TP SCH ×2 (09:00→21:21)
[2022-05-18 20:35] VITALS: TEMP 98.8
[2022-05-18] MEDS: ACIDOPHILUS/BULGARICUS CHEW TAB GT SCH (21:20)
[2022-05-18] MEDS: ASCORBIC ACID 500 MG TABLET GT SCH (21:20)
[2022-05-18] MEDS: NORMAL SALINE NASAL 45 ML BOTTLE NS SCH (21:20)
[2022-05-19] MEDS: PROTEIN SUPPLEMENT (PROSTAT) 30 ML LIQUID GT SCH ×3 (05:10→21:03)
[2022-05-19] MEDS: ARGININE/GLUTAMINE/CALCIUM BMB 1 EACH POWD.PACK GT SCH ×2 (05:10→17:21)
[2022-05-19] MEDS: FAMOTIDINE 20 MG TABLET GT SCH ×2 (05:10→17:21)
[2022-05-19] MEDS: POLYVINYL ALCOHOL OPHT DROPS 15 ML BOTTLE EACHEYE SCH ×3 (05:10→21:03)
[2022-05-19] MEDS: GLUCERNA 1.2 1000ML LIQUID GT PRN (05:10)
[2022-05-19] MEDS: HYDROGEN PEROXIDE 3% 118 ML BOTTLE TP SCH ×2 (07:25→20:49)
[2022-05-19 07:35] VITALS: TEMP 97.5
[2022-05-19] MEDS: levETIRAcetam 500 MG/5 ML LIQUID UDC GT SCH ×2 (08:06→21:02)
[2022-05-19] MEDS: ACETAMINOPHEN 650 MG/20.3 ML LIQUID UDC GT SCH ×2 (08:06→21:02)
[2022-05-19] MEDS: FUROSEMIDE 20 MG TABLET GT SCH (08:08)
[2022-05-19] MEDS: POTASSIUM CHLORIDE 40 MEQ/30 ML LIQUID UDC GT SCH (08:08)
[2022-05-19] MEDS: DIGOXIN 125 MCG TABLET GT SCH (08:08)
[2022-05-19] MEDS: COD LIVER OIL/ZINC OXIDE OINT 113 GM TUBE TP SCH ×2 (08:09→21:03)
[2022-05-19] MEDS: MEDIHONEY= THERAHONEY 1.5 OZ TUBE TOP SCH ×2 (08:09→21:02)
[2022-05-19] MEDS: CLOTRIMAZOLE 1% CREAM 30 GM TUBE TP SCH ×2 (08:09→21:03)
[2022-05-19] MEDS: NEOMY/BACITRA/POLYMYXIN B OINT UD PACKET TP SCH (08:10)
[2022-05-19] MEDS: REMEDY ESSENTIAL ZINC PASTE 113 GM TP SCH ×4 (08:10→21:03)
[2022-05-19] MEDS: NYSTATIN CREAM 30 GM TUBE TP SCH ×2 (08:10→21:03)
[2022-05-19 20:27] VITALS: TEMP 98.4
[2022-05-19] MEDS: ACIDOPHILUS/BULGARICUS CHEW TAB GT SCH (21:02)
[2022-05-19] MEDS: ASCORBIC ACID 500 MG TABLET GT SCH (21:02)
[2022-05-19] MEDS: NORMAL SALINE NASAL 45 ML BOTTLE NS SCH (21:02)
[2022-05-20] MEDS: POLYVINYL ALCOHOL OPHT DROPS 15 ML BOTTLE EACHEYE SCH ×3 (05:00→21:33)
[2022-05-20] MEDS: ARGININE/GLUTAMINE/CALCIUM BMB 1 EACH POWD.PACK GT SCH ×2 (05:00→17:54)
[2022-05-20] MEDS: FAMOTIDINE 20 MG TABLET GT SCH ×2 (05:00→17:54)
[2022-05-20] MEDS: PROTEIN SUPPLEMENT (PROSTAT) 30 ML LIQUID GT SCH ×3 (05:00→21:33)
[2022-05-20 07:30] VITALS: TEMP 97.4
[2022-05-20] MEDS: ACETAMINOPHEN 650 MG/20.3 ML LIQUID UDC GT SCH ×2 (08:30→20:12)
[2022-05-20] MEDS: HYDROGEN PEROXIDE 3% 118 ML BOTTLE TP SCH ×2 (08:30→19:24)
[2022-05-20] MEDS: FUROSEMIDE 20 MG TABLET GT SCH (08:31)
[2022-05-20] MEDS: POTASSIUM CHLORIDE 40 MEQ/30 ML LIQUID UDC GT SCH (08:31)
[2022-05-20] MEDS: levETIRAcetam 500 MG/5 ML LIQUID UDC GT SCH ×2 (08:31→20:13)
[2022-05-20] MEDS: DIGOXIN 125 MCG TABLET GT SCH (08:31)
[2022-05-20] MEDS: CLOTRIMAZOLE 1% CREAM 30 GM TUBE TP SCH ×2 (08:32→20:17)
[2022-05-20] MEDS: MEDIHONEY= THERAHONEY 1.5 OZ TUBE TOP SCH ×2 (08:32→20:16)
[2022-05-20] MEDS: COD LIVER OIL/ZINC OXIDE OINT 113 GM TUBE TP SCH ×2 (08:32→20:17)
[2022-05-20] MEDS: NEOMY/BACITRA/POLYMYXIN B OINT UD PACKET TP SCH (08:34)
[2022-05-20] MEDS: NYSTATIN CREAM 30 GM TUBE TP SCH ×2 (08:34→20:18)
[2022-05-20] MEDS: REMEDY ESSENTIAL ZINC PASTE 113 GM TP SCH ×4 (08:34→20:18)
[2022-05-20] MEDS: GLUCERNA 1.2 1000ML LIQUID GT PRN (17:55)
[2022-05-20] MEDS: ACIDOPHILUS/BULGARICUS CHEW TAB GT SCH (20:12)
[2022-05-20] MEDS: ASCORBIC ACID 500 MG TABLET GT SCH (20:13)
[2022-05-20] MEDS: NORMAL SALINE NASAL 45 ML BOTTLE NS SCH (20:14)
[2022-05-20 20:33] VITALS: TEMP 99.1
[2022-05-21] MEDS: PROTEIN SUPPLEMENT (PROSTAT) 30 ML LIQUID GT SCH ×3 (06:00→21:22)
[2022-05-21] MEDS: POLYVINYL ALCOHOL OPHT DROPS 15 ML BOTTLE EACHEYE SCH ×3 (06:07→21:22)
[2022-05-21] MEDS: ARGININE/GLUTAMINE/CALCIUM BMB 1 EACH POWD.PACK GT SCH ×2 (06:07→17:34)
[2022-05-21] MEDS: FAMOTIDINE 20 MG TABLET GT SCH ×2 (06:07→17:34)
[2022-05-21 07:32] VITALS: TEMP 97.2
[2022-05-21] MEDS: HYDROGEN PEROXIDE 3% 118 ML BOTTLE TP SCH ×2 (09:00→19:10)
[2022-05-21] MEDS: ACETAMINOPHEN 650 MG/20.3 ML LIQUID UDC GT SCH ×2 (09:30→20:47)
[2022-05-21] MEDS: COD LIVER OIL/ZINC OXIDE OINT 113 GM TUBE TP SCH ×2 (09:53→20:48)
[2022-05-21] MEDS: levETIRAcetam 500 MG/5 ML LIQUID UDC GT SCH ×2 (09:53→20:48)
[2022-05-21] MEDS: POTASSIUM CHLORIDE 40 MEQ/30 ML LIQUID UDC GT SCH (09:53)
[2022-05-21] MEDS: FUROSEMIDE 20 MG TABLET GT SCH (09:53)
[2022-05-21] MEDS: MEDIHONEY= THERAHONEY 1.5 OZ TUBE TOP SCH ×2 (09:53→20:48)
[2022-05-21] MEDS: CLOTRIMAZOLE 1% CREAM 30 GM TUBE TP SCH ×2 (09:53→20:48)
[2022-05-21] MEDS: DIGOXIN 125 MCG TABLET GT SCH (09:53)
[2022-05-21] MEDS: REMEDY ESSENTIAL ZINC PASTE 113 GM TP SCH ×4 (09:54→20:49)
[2022-05-21] MEDS: NYSTATIN CREAM 30 GM TUBE TP SCH ×2 (09:54→20:49)
[2022-05-21 20:00] VITALS: TEMP 99.5
[2022-05-21] MEDS: ACIDOPHILUS/BULGARICUS CHEW TAB GT SCH (20:47)
[2022-05-21] MEDS: ASCORBIC ACID 500 MG TABLET GT SCH (20:48)
[2022-05-21] MEDS: NORMAL SALINE NASAL 45 ML BOTTLE NS SCH (20:48)
[2022-05-22] MEDS: GLUCERNA 1.2 1000ML LIQUID GT PRN (03:05)
[2022-05-22] MEDS: ARGININE/GLUTAMINE/CALCIUM BMB 1 EACH POWD.PACK GT SCH ×2 (05:26→17:18)
[2022-05-22] MEDS: FAMOTIDINE 20 MG TABLET GT SCH ×2 (05:26→17:18)
[2022-05-22] MEDS: POLYVINYL ALCOHOL OPHT DROPS 15 ML BOTTLE EACHEYE SCH ×3 (05:26→22:05)
[2022-05-22] MEDS: PROTEIN SUPPLEMENT (PROSTAT) 30 ML LIQUID GT SCH ×3 (05:27→22:05)
[2022-05-22 07:55] VITALS: TEMP 98.1
[2022-05-22] MEDS: ACETAMINOPHEN 650 MG/20.3 ML LIQUID UDC GT SCH ×2 (08:18→20:34)
[2022-05-22] MEDS: levETIRAcetam 500 MG/5 ML LIQUID UDC GT SCH ×2 (08:18→20:35)
[2022-05-22] MEDS: DIGOXIN 125 MCG TABLET GT SCH (08:19)
[2022-05-22] MEDS: FUROSEMIDE 20 MG TABLET GT SCH (08:20)
[2022-05-22] MEDS: COD LIVER OIL/ZINC OXIDE OINT 113 GM TUBE TP SCH ×2 (08:20→20:32)
[2022-05-22] MEDS: CLOTRIMAZOLE 1% CREAM 30 GM TUBE TP SCH ×2 (08:20→20:33)
[2022-05-22] MEDS: MEDIHONEY= THERAHONEY 1.5 OZ TUBE TOP SCH ×2 (08:20→20:32)
[2022-05-22] MEDS: NYSTATIN CREAM 30 GM TUBE TP SCH ×2 (08:20→20:33)
[2022-05-22] MEDS: POTASSIUM CHLORIDE 40 MEQ/30 ML LIQUID UDC GT SCH (08:20)
[2022-05-22] MEDS: REMEDY ESSENTIAL ZINC PASTE 113 GM TP SCH ×4 (08:21→20:33)
[2022-05-22] MEDS: HYDROGEN PEROXIDE 3% 118 ML BOTTLE TP SCH ×2 (09:34→19:16)
[2022-05-22] MEDS: ASCORBIC ACID 500 MG TABLET GT SCH (20:29)
[2022-05-22] MEDS: ACIDOPHILUS/BULGARICUS CHEW TAB GT SCH (20:29)
[2022-05-22] MEDS: NORMAL SALINE NASAL 45 ML BOTTLE NS SCH (20:32)
[2022-05-23] MEDS: POLYVINYL ALCOHOL OPHT DROPS 15 ML BOTTLE EACHEYE SCH ×3 (06:23→22:00)
[2022-05-23] MEDS: ARGININE/GLUTAMINE/CALCIUM BMB 1 EACH POWD.PACK GT SCH ×2 (06:24→17:02)
[2022-05-23] MEDS: PROTEIN SUPPLEMENT (PROSTAT) 30 ML LIQUID GT SCH ×3 (06:24→22:00)
[2022-05-23] MEDS: FAMOTIDINE 20 MG TABLET GT SCH ×2 (06:24→17:02)
[2022-05-23 07:26] VITALS: TEMP 98.8
[2022-05-23] MEDS: ACETAMINOPHEN 650 MG/20.3 ML LIQUID UDC GT SCH ×2 (08:00→20:07)
[2022-05-23] MEDS: levETIRAcetam 500 MG/5 ML LIQUID UDC GT SCH ×2 (08:00→20:07)
[2022-05-23] MEDS: FUROSEMIDE 20 MG TABLET GT SCH (08:01)
[2022-05-23] MEDS: DIGOXIN 125 MCG TABLET GT SCH (08:01)
[2022-05-23] MEDS: MEDIHONEY= THERAHONEY 1.5 OZ TUBE TOP SCH ×2 (08:02→20:13)
[2022-05-23] MEDS: POTASSIUM CHLORIDE 40 MEQ/30 ML LIQUID UDC GT SCH (08:02)
[2022-05-23] MEDS: COD LIVER OIL/ZINC OXIDE OINT 113 GM TUBE TP SCH ×2 (08:03→20:14)
[2022-05-23] MEDS: CLOTRIMAZOLE 1% CREAM 30 GM TUBE TP SCH ×2 (08:04→20:14)
[2022-05-23] MEDS: NYSTATIN CREAM 30 GM TUBE TP SCH ×2 (08:04→20:15)
[2022-05-23] MEDS: REMEDY ESSENTIAL ZINC PASTE 113 GM TP SCH ×4 (08:04→20:15)
[2022-05-23] MEDS: HYDROGEN PEROXIDE 3% 118 ML BOTTLE TP SCH ×2 (08:08→20:14)
[2022-05-23 20:07] VITALS: TEMP 98.2
[2022-05-23] MEDS: ASCORBIC ACID 500 MG TABLET GT SCH (20:07)
[2022-05-23] MEDS: ACIDOPHILUS/BULGARICUS CHEW TAB GT SCH (20:07)
[2022-05-23] MEDS: NORMAL SALINE NASAL 45 ML BOTTLE NS SCH (20:16)
[2022-05-24] MEDS: ARGININE/GLUTAMINE/CALCIUM BMB 1 EACH POWD.PACK GT SCH ×2 (05:55→18:05)
[2022-05-24] MEDS: PROTEIN SUPPLEMENT (PROSTAT) 30 ML LIQUID GT SCH ×3 (05:55→21:04)
[2022-05-24] MEDS: FAMOTIDINE 20 MG TABLET GT SCH ×2 (05:55→18:05)
[2022-05-24] MEDS: POLYVINYL ALCOHOL OPHT DROPS 15 ML BOTTLE EACHEYE SCH ×3 (05:55→21:03)
[2022-05-24 07:15] VITALS: TEMP 97.5
[2022-05-24] MEDS: HYDROGEN PEROXIDE 3% 118 ML BOTTLE TP SCH ×2 (08:19→19:17)
[2022-05-24] MEDS: levETIRAcetam 500 MG/5 ML LIQUID UDC GT SCH ×2 (08:30→20:27)
[2022-05-24] MEDS: FUROSEMIDE 20 MG TABLET GT SCH (08:34)
[2022-05-24] MEDS: POTASSIUM CHLORIDE 40 MEQ/30 ML LIQUID UDC GT SCH (08:34)
[2022-05-24] MEDS: DIGOXIN 125 MCG TABLET GT SCH (08:34)
[2022-05-24] MEDS: ACETAMINOPHEN 650 MG/20.3 ML LIQUID UDC GT SCH ×2 (09:23→20:26)
[2022-05-24] MEDS: CLOTRIMAZOLE 1% CREAM 30 GM TUBE TP SCH ×2 (10:00→20:28)
[2022-05-24] MEDS: MEDIHONEY= THERAHONEY 1.5 OZ TUBE TOP SCH ×2 (10:00→20:28)
[2022-05-24] MEDS: REMEDY ESSENTIAL ZINC PASTE 113 GM TP SCH ×4 (10:00→20:29)
[2022-05-24] MEDS: COD LIVER OIL/ZINC OXIDE OINT 113 GM TUBE TP SCH ×2 (10:00→20:28)
[2022-05-24] MEDS: NYSTATIN CREAM 30 GM TUBE TP SCH ×2 (10:00→20:28)
[2022-05-24 19:58] VITALS: TEMP 98.6
[2022-05-24] MEDS: ACIDOPHILUS/BULGARICUS CHEW TAB GT SCH (20:27)
[2022-05-24] MEDS: ASCORBIC ACID 500 MG TABLET GT SCH (20:27)
[2022-05-24] MEDS: NORMAL SALINE NASAL 45 ML BOTTLE NS SCH (20:28)
[2022-05-24] MEDS: GLUCERNA 1.2 1000ML LIQUID GT PRN (21:33)
[2022-05-25] MEDS: FAMOTIDINE 20 MG TABLET GT SCH ×2 (05:10→17:16)
[2022-05-25] MEDS: PROTEIN SUPPLEMENT (PROSTAT) 30 ML LIQUID GT SCH ×3 (05:10→21:34)
[2022-05-25] MEDS: ARGININE/GLUTAMINE/CALCIUM BMB 1 EACH POWD.PACK GT SCH ×2 (05:10→17:16)
[2022-05-25] MEDS: POLYVINYL ALCOHOL OPHT DROPS 15 ML BOTTLE EACHEYE SCH ×3 (05:10→21:34)
[2022-05-25 07:22] VITALS: TEMP 98.9
[2022-05-25] MEDS: HYDROGEN PEROXIDE 3% 118 ML BOTTLE TP SCH ×2 (08:13→20:38)
[2022-05-25] MEDS: levETIRAcetam 500 MG/5 ML LIQUID UDC GT SCH ×2 (08:19→21:33)
[2022-05-25] MEDS: FUROSEMIDE 20 MG TABLET GT SCH (08:19)
[2022-05-25] MEDS: POTASSIUM CHLORIDE 40 MEQ/30 ML LIQUID UDC GT SCH (08:19)
[2022-05-25] MEDS: DIGOXIN 125 MCG TABLET GT SCH (08:19)
[2022-05-25] MEDS: ACETAMINOPHEN 650 MG/20.3 ML LIQUID UDC GT SCH ×2 (08:59→20:30)
[2022-05-25] MEDS: NYSTATIN CREAM 30 GM TUBE TP SCH ×2 (09:55→21:34)
[2022-05-25] MEDS: MEDIHONEY= THERAHONEY 1.5 OZ TUBE TOP SCH ×2 (09:55→21:34)
[2022-05-25] MEDS: REMEDY ESSENTIAL ZINC PASTE 113 GM TP SCH ×4 (09:55→21:34)
[2022-05-25] MEDS: COD LIVER OIL/ZINC OXIDE OINT 113 GM TUBE TP SCH ×2 (09:55→21:34)
[2022-05-25] MEDS: CLOTRIMAZOLE 1% CREAM 30 GM TUBE TP SCH ×2 (09:55→21:34)
[2022-05-25 20:00] VITALS: TEMP 98.2
[2022-05-25] MEDS: ACIDOPHILUS/BULGARICUS CHEW TAB GT SCH (21:33)
[2022-05-25] MEDS: ASCORBIC ACID 500 MG TABLET GT SCH (21:34)
[2022-05-25] MEDS: NORMAL SALINE NASAL 45 ML BOTTLE NS SCH (21:34)
[2022-05-26] MEDS: FAMOTIDINE 20 MG TABLET GT SCH ×2 (06:01→17:55)
[2022-05-26] MEDS: ARGININE/GLUTAMINE/CALCIUM BMB 1 EACH POWD.PACK GT SCH ×2 (06:01→17:55)
[2022-05-26] MEDS: PROTEIN SUPPLEMENT (PROSTAT) 30 ML LIQUID GT SCH ×3 (06:01→21:25)
[2022-05-26] MEDS: POLYVINYL ALCOHOL OPHT DROPS 15 ML BOTTLE EACHEYE SCH ×3 (06:01→21:25)
[2022-05-26] MEDS: HYDROGEN PEROXIDE 3% 118 ML BOTTLE TP SCH ×2 (07:00→19:53)
[2022-05-26 07:38] VITALS: TEMP 98
[2022-05-26] MEDS: ACETAMINOPHEN 650 MG/20.3 ML LIQUID UDC GT SCH ×2 (09:09→20:42)
[2022-05-26] MEDS: levETIRAcetam 500 MG/5 ML LIQUID UDC GT SCH ×2 (09:09→20:43)
[2022-05-26] MEDS: DIGOXIN 125 MCG TABLET GT SCH (09:12)
[2022-05-26] MEDS: FUROSEMIDE 20 MG TABLET GT SCH (09:21)
[2022-05-26] MEDS: MEDIHONEY= THERAHONEY 1.5 OZ TUBE TOP SCH ×2 (09:22→20:44)
[2022-05-26] MEDS: POTASSIUM CHLORIDE 40 MEQ/30 ML LIQUID UDC GT SCH (09:22)
[2022-05-26] MEDS: NYSTATIN CREAM 30 GM TUBE TP SCH ×2 (09:23→20:44)
[2022-05-26] MEDS: CLOTRIMAZOLE 1% CREAM 30 GM TUBE TP SCH ×2 (09:23→20:44)
[2022-05-26] MEDS: REMEDY ESSENTIAL ZINC PASTE 113 GM TP SCH ×4 (09:23→20:45)
[2022-05-26] MEDS: COD LIVER OIL/ZINC OXIDE OINT 113 GM TUBE TP SCH ×2 (09:23→20:44)
[2022-05-26 20:10] VITALS: TEMP 98.8
[2022-05-26] MEDS: ACIDOPHILUS/BULGARICUS CHEW TAB GT SCH (20:43)
[2022-05-26] MEDS: NORMAL SALINE NASAL 45 ML BOTTLE NS SCH (20:44)
[2022-05-26] MEDS: ASCORBIC ACID 500 MG TABLET GT SCH (20:44)
[2022-05-27] MEDS: POLYVINYL ALCOHOL OPHT DROPS 15 ML BOTTLE EACHEYE SCH ×3 (05:10→22:05)
[2022-05-27] MEDS: ARGININE/GLUTAMINE/CALCIUM BMB 1 EACH POWD.PACK GT SCH ×2 (05:10→17:33)
[2022-05-27] MEDS: PROTEIN SUPPLEMENT (PROSTAT) 30 ML LIQUID GT SCH ×3 (05:10→22:00)
[2022-05-27] MEDS: FAMOTIDINE 20 MG TABLET GT SCH ×2 (05:10→17:33)
[2022-05-27 07:34] VITALS: TEMP 97.8
[2022-05-27] MEDS: levETIRAcetam 500 MG/5 ML LIQUID UDC GT SCH ×2 (09:01→20:28)
[2022-05-27] MEDS: ACETAMINOPHEN 650 MG/20.3 ML LIQUID UDC GT SCH ×2 (09:01→20:27)
[2022-05-27] MEDS: POTASSIUM CHLORIDE 40 MEQ/30 ML LIQUID UDC GT SCH (09:03)
[2022-05-27] MEDS: FUROSEMIDE 20 MG TABLET GT SCH (09:03)
[2022-05-27] MEDS: DIGOXIN 125 MCG TABLET GT SCH (09:03)
[2022-05-27] MEDS: CLOTRIMAZOLE 1% CREAM 30 GM TUBE TP SCH ×2 (09:04→20:28)
[2022-05-27] MEDS: REMEDY ESSENTIAL ZINC PASTE 113 GM TP SCH ×4 (09:04→20:29)
[2022-05-27] MEDS: NYSTATIN CREAM 30 GM TUBE TP SCH ×2 (09:04→20:28)
[2022-05-27] MEDS: COD LIVER OIL/ZINC OXIDE OINT 113 GM TUBE TP SCH ×2 (09:04→20:28)
[2022-05-27] MEDS: MEDIHONEY= THERAHONEY 1.5 OZ TUBE TOP SCH ×2 (09:04→20:28)
[2022-05-27] MEDS: HYDROGEN PEROXIDE 3% 118 ML BOTTLE TP SCH ×2 (09:06→20:17)
[2022-05-27 20:00] VITALS: TEMP 98.6
[2022-05-27] MEDS: ACIDOPHILUS/BULGARICUS CHEW TAB GT SCH (20:27)
[2022-05-27] MEDS: NORMAL SALINE NASAL 45 ML BOTTLE NS SCH (20:28)
[2022-05-27] MEDS: ASCORBIC ACID 500 MG TABLET GT SCH (20:30)
[2022-05-28] MEDS: ARGININE/GLUTAMINE/CALCIUM BMB 1 EACH POWD.PACK GT SCH ×2 (05:07→17:50)
[2022-05-28] MEDS: FAMOTIDINE 20 MG TABLET GT SCH ×2 (05:07→17:50)
[2022-05-28] MEDS: POLYVINYL ALCOHOL OPHT DROPS 15 ML BOTTLE EACHEYE SCH ×3 (05:07→21:36)
[2022-05-28] MEDS: PROTEIN SUPPLEMENT (PROSTAT) 30 ML LIQUID GT SCH ×3 (05:08→21:36)
[2022-05-28] MEDS: GLUCERNA 1.2 1000ML LIQUID GT PRN (05:10)
[2022-05-28 07:33] VITALS: TEMP 97.4
[2022-05-28] MEDS: HYDROGEN PEROXIDE 3% 118 ML BOTTLE TP SCH ×2 (08:16→20:51)
[2022-05-28] MEDS: ACETAMINOPHEN 650 MG/20.3 ML LIQUID UDC GT SCH ×2 (08:48→20:23)
[2022-05-28] MEDS: levETIRAcetam 500 MG/5 ML LIQUID UDC GT SCH ×2 (08:49→20:23)
[2022-05-28] MEDS: DIGOXIN 125 MCG TABLET GT SCH (08:50)
[2022-05-28] MEDS: FUROSEMIDE 20 MG TABLET GT SCH (08:50)
[2022-05-28] MEDS: POTASSIUM CHLORIDE 40 MEQ/30 ML LIQUID UDC GT SCH (08:51)
[2022-05-28] MEDS: REMEDY ESSENTIAL ZINC PASTE 113 GM TP SCH ×2 (08:52→20:24)
[2022-05-28] MEDS: CLOTRIMAZOLE 1% CREAM 30 GM TUBE TP SCH ×2 (08:52→20:24)
[2022-05-28] MEDS: MEDIHONEY= THERAHONEY 1.5 OZ TUBE TOP SCH ×2 (08:52→20:23)
[2022-05-28] MEDS: COD LIVER OIL/ZINC OXIDE OINT 113 GM TUBE TP SCH ×2 (08:52→20:23)
[2022-05-28 19:46] VITALS: TEMP 98.1
[2022-05-28] MEDS: NORMAL SALINE NASAL 45 ML BOTTLE NS SCH (20:23)
[2022-05-28] MEDS: ASCORBIC ACID 500 MG TABLET GT SCH (20:23)
[2022-05-28] MEDS: ACIDOPHILUS/BULGARICUS CHEW TAB GT SCH (20:23)
[2022-05-29] MEDS: PROTEIN SUPPLEMENT (PROSTAT) 30 ML LIQUID GT SCH ×3 (06:00→21:23)
[2022-05-29] MEDS: POLYVINYL ALCOHOL OPHT DROPS 15 ML BOTTLE EACHEYE SCH ×3 (06:43→21:22)
[2022-05-29] MEDS: FAMOTIDINE 20 MG TABLET GT SCH ×2 (06:43→17:36)
[2022-05-29] MEDS: ARGININE/GLUTAMINE/CALCIUM BMB 1 EACH POWD.PACK GT SCH ×2 (06:43→17:36)
[2022-05-29 07:22] VITALS: TEMP 98.2
[2022-05-29] MEDS: HYDROGEN PEROXIDE 3% 118 ML BOTTLE TP SCH ×2 (08:23→19:09)
[2022-05-29] MEDS: REMEDY ESSENTIAL ZINC PASTE 113 GM TP SCH ×2 (09:14→21:22)
[2022-05-29] MEDS: POTASSIUM CHLORIDE 40 MEQ/30 ML LIQUID UDC GT SCH (09:14)
[2022-05-29] MEDS: CLOTRIMAZOLE 1% CREAM 30 GM TUBE TP SCH ×2 (09:14→21:22)
[2022-05-29] MEDS: COD LIVER OIL/ZINC OXIDE OINT 113 GM TUBE TP SCH ×2 (09:14→21:22)
[2022-05-29] MEDS: DIGOXIN 125 MCG TABLET GT SCH (09:14)
[2022-05-29] MEDS: levETIRAcetam 500 MG/5 ML LIQUID UDC GT SCH ×2 (09:14→21:21)
[2022-05-29] MEDS: FUROSEMIDE 20 MG TABLET GT SCH (09:14)
[2022-05-29] MEDS: ACETAMINOPHEN 650 MG/20.3 ML LIQUID UDC GT SCH ×2 (09:14→21:21)
[2022-05-29] MEDS: MEDIHONEY= THERAHONEY 1.5 OZ TUBE TOP SCH ×2 (09:14→21:22)
[2022-05-29 20:36] VITALS: TEMP 98.6
[2022-05-29] MEDS: NORMAL SALINE NASAL 45 ML BOTTLE NS SCH (21:21)
[2022-05-29] MEDS: ASCORBIC ACID 500 MG TABLET GT SCH (21:21)
[2022-05-29] MEDS: ACIDOPHILUS/BULGARICUS CHEW TAB GT SCH (21:21)
[2022-05-30] MEDS: ARGININE/GLUTAMINE/CALCIUM BMB 1 EACH POWD.PACK GT SCH ×2 (05:43→18:42)
[2022-05-30] MEDS: POLYVINYL ALCOHOL OPHT DROPS 15 ML BOTTLE EACHEYE SCH ×3 (05:43→22:37)
[2022-05-30] MEDS: FAMOTIDINE 20 MG TABLET GT SCH ×2 (05:43→18:42)
[2022-05-30] MEDS: PROTEIN SUPPLEMENT (PROSTAT) 30 ML LIQUID GT SCH ×3 (05:44→22:00)
[2022-05-30 07:19] VITALS: TEMP 98.9
[2022-05-30] MEDS: ACETAMINOPHEN 650 MG/20.3 ML LIQUID UDC GT SCH ×2 (08:43→20:30)
[2022-05-30] MEDS: levETIRAcetam 500 MG/5 ML LIQUID UDC GT SCH ×2 (08:45→21:00)
[2022-05-30] MEDS: DIGOXIN 125 MCG TABLET GT SCH (08:46)
[2022-05-30] MEDS: FUROSEMIDE 20 MG TABLET GT SCH (08:50)
[2022-05-30] MEDS: MEDIHONEY= THERAHONEY 1.5 OZ TUBE TOP SCH ×2 (08:51→21:00)
[2022-05-30] MEDS: POTASSIUM CHLORIDE 40 MEQ/30 ML LIQUID UDC GT SCH (08:51)
[2022-05-30] MEDS: COD LIVER OIL/ZINC OXIDE OINT 113 GM TUBE TP SCH ×2 (08:52→21:00)
[2022-05-30] MEDS: REMEDY ESSENTIAL ZINC PASTE 113 GM TP SCH ×2 (09:00→21:00)
[2022-05-30] MEDS: CLOTRIMAZOLE 1% CREAM 30 GM TUBE TP SCH ×2 (09:00→21:00)
[2022-05-30] MEDS: HYDROGEN PEROXIDE 3% 118 ML BOTTLE TP SCH ×2 (09:00→19:19)
[2022-05-30 19:48] VITALS: TEMP 99
[2022-05-30] MEDS: ASCORBIC ACID 500 MG TABLET GT SCH (21:00)
[2022-05-30] MEDS: NORMAL SALINE NASAL 45 ML BOTTLE NS SCH (21:00)
[2022-05-30] MEDS: ACIDOPHILUS/BULGARICUS CHEW TAB GT SCH (21:00)
[2022-05-31] MEDS: FAMOTIDINE 20 MG TABLET GT SCH ×2 (05:47→17:34)
[2022-05-31] MEDS: POLYVINYL ALCOHOL OPHT DROPS 15 ML BOTTLE EACHEYE SCH ×3 (05:47→21:08)
[2022-05-31] MEDS: ARGININE/GLUTAMINE/CALCIUM BMB 1 EACH POWD.PACK GT SCH ×2 (05:47→17:34)
[2022-05-31] MEDS: PROTEIN SUPPLEMENT (PROSTAT) 30 ML LIQUID GT SCH ×3 (05:48→21:08)
[2022-05-31 07:16] VITALS: TEMP 97.4
[2022-05-31] MEDS: POTASSIUM CHLORIDE 40 MEQ/30 ML LIQUID UDC GT SCH (08:01)
[2022-05-31] MEDS: DIGOXIN 125 MCG TABLET GT SCH (08:01)
[2022-05-31] MEDS: FUROSEMIDE 20 MG TABLET GT SCH (08:01)
[2022-05-31] MEDS: COD LIVER OIL/ZINC OXIDE OINT 113 GM TUBE TP SCH ×2 (08:01→21:07)
[2022-05-31] MEDS: ACETAMINOPHEN 650 MG/20.3 ML LIQUID UDC GT SCH ×2 (08:01→20:30)
[2022-05-31] MEDS: MEDIHONEY= THERAHONEY 1.5 OZ TUBE TOP SCH ×2 (08:01→21:07)
[2022-05-31] MEDS: levETIRAcetam 500 MG/5 ML LIQUID UDC GT SCH ×2 (08:01→21:05)
[2022-05-31] MEDS: CLOTRIMAZOLE 1% CREAM 30 GM TUBE TP SCH ×2 (08:02→21:07)
[2022-05-31] MEDS: REMEDY ESSENTIAL ZINC PASTE 113 GM TP SCH ×2 (08:02→21:08)
[2022-05-31] MEDS: HYDROGEN PEROXIDE 3% 118 ML BOTTLE TP SCH ×2 (09:00→19:24)
[2022-05-31 20:10] VITALS: TEMP 98.6
[2022-05-31] MEDS: ACIDOPHILUS/BULGARICUS CHEW TAB GT SCH (21:05)
[2022-05-31] MEDS: ASCORBIC ACID 500 MG TABLET GT SCH (21:07)
[2022-05-31] MEDS: NORMAL SALINE NASAL 45 ML BOTTLE NS SCH (21:07)
[2022-06-01] MEDS: PROTEIN SUPPLEMENT (PROSTAT) 30 ML LIQUID GT SCH ×3 (06:00→21:40)
[2022-06-01] MEDS: FAMOTIDINE 20 MG TABLET GT SCH ×2 (06:06→18:02)
[2022-06-01] MEDS: POLYVINYL ALCOHOL OPHT DROPS 15 ML BOTTLE EACHEYE SCH ×3 (06:06→21:40)
[2022-06-01] MEDS: ARGININE/GLUTAMINE/CALCIUM BMB 1 EACH POWD.PACK GT SCH ×2 (06:06→18:02)
[2022-06-01] MEDS: HYDROGEN PEROXIDE 3% 118 ML BOTTLE TP SCH ×2 (07:01→19:14)
[2022-06-01 07:32] VITALS: TEMP 99.3
[2022-06-01 08:00] VITALS: TEMP 98.1
[2022-06-01] MEDS: ACETAMINOPHEN 650 MG/20.3 ML LIQUID UDC GT SCH ×2 (08:43→20:59)
[2022-06-01] MEDS: levETIRAcetam 500 MG/5 ML LIQUID UDC GT SCH ×2 (08:43→20:59)
[2022-06-01] MEDS: POTASSIUM CHLORIDE 40 MEQ/30 ML LIQUID UDC GT SCH (08:44)
[2022-06-01] MEDS: DIGOXIN 125 MCG TABLET GT SCH (08:44)
[2022-06-01] MEDS: COD LIVER OIL/ZINC OXIDE OINT 113 GM TUBE TP SCH ×2 (08:44→21:02)
[2022-06-01] MEDS: FUROSEMIDE 20 MG TABLET GT SCH (08:44)
[2022-06-01] MEDS: MEDIHONEY= THERAHONEY 1.5 OZ TUBE TOP SCH ×2 (08:44→21:01)
[2022-06-01] MEDS: CLOTRIMAZOLE 1% CREAM 30 GM TUBE TP SCH ×2 (08:45→21:02)
[2022-06-01] MEDS: REMEDY ESSENTIAL ZINC PASTE 113 GM TP SCH ×2 (08:45→21:02)
[2022-06-01 20:51] VITALS: TEMP 98.8
[2022-06-01] MEDS: ACIDOPHILUS/BULGARICUS CHEW TAB GT SCH (20:59)
[2022-06-01] MEDS: ASCORBIC ACID 500 MG TABLET GT SCH (21:00)
[2022-06-01] MEDS: NORMAL SALINE NASAL 45 ML BOTTLE NS SCH (21:01)
[2022-06-02] MEDS: GLUCERNA 1.2 1000ML LIQUID GT PRN (02:56)
[2022-06-02] MEDS: ARGININE/GLUTAMINE/CALCIUM BMB 1 EACH POWD.PACK GT SCH ×2 (05:23→17:02)
[2022-06-02] MEDS: POLYVINYL ALCOHOL OPHT DROPS 15 ML BOTTLE EACHEYE SCH ×3 (05:23→22:26)
[2022-06-02] MEDS: FAMOTIDINE 20 MG TABLET GT SCH ×2 (05:23→17:03)
[2022-06-02] MEDS: PROTEIN SUPPLEMENT (PROSTAT) 30 ML LIQUID GT SCH ×3 (05:24→22:00)
[2022-06-02 08:00] VITALS: TEMP 97.6
[2022-06-02] MEDS: ACETAMINOPHEN 650 MG/20.3 ML LIQUID UDC GT SCH ×2 (08:18→20:09)
[2022-06-02] MEDS: levETIRAcetam 500 MG/5 ML LIQUID UDC GT SCH ×2 (08:19→20:09)
[2022-06-02] MEDS: FUROSEMIDE 20 MG TABLET GT SCH (08:20)
[2022-06-02] MEDS: DIGOXIN 125 MCG TABLET GT SCH (08:20)
[2022-06-02] MEDS: COD LIVER OIL/ZINC OXIDE OINT 113 GM TUBE TP SCH ×2 (08:21→20:10)
[2022-06-02] MEDS: CLOTRIMAZOLE 1% CREAM 30 GM TUBE TP SCH ×2 (08:21→20:10)
[2022-06-02] MEDS: POTASSIUM CHLORIDE 40 MEQ/30 ML LIQUID UDC GT SCH (08:21)
[2022-06-02] MEDS: MEDIHONEY= THERAHONEY 1.5 OZ TUBE TOP SCH ×2 (08:21→20:10)
[2022-06-02] MEDS: HYDROGEN PEROXIDE 3% 118 ML BOTTLE TP SCH ×2 (08:21→20:30)
[2022-06-02] MEDS: REMEDY ESSENTIAL ZINC PASTE 113 GM TP SCH ×2 (08:21→20:10)
[2022-06-02 20:00] VITALS: TEMP 98.2
[2022-06-02] MEDS: ACIDOPHILUS/BULGARICUS CHEW TAB GT SCH (20:09)
[2022-06-02] MEDS: NORMAL SALINE NASAL 45 ML BOTTLE NS SCH (20:09)
[2022-06-02] MEDS: ASCORBIC ACID 500 MG TABLET GT SCH (20:09)
[2022-06-03] MEDS: PROTEIN SUPPLEMENT (PROSTAT) 30 ML LIQUID GT SCH ×3 (05:00→22:00)
[2022-06-03] MEDS: FAMOTIDINE 20 MG TABLET GT SCH ×2 (05:00→18:14)
[2022-06-03] MEDS: ARGININE/GLUTAMINE/CALCIUM BMB 1 EACH POWD.PACK GT SCH ×2 (05:00→18:14)
[2022-06-03] MEDS: POLYVINYL ALCOHOL OPHT DROPS 15 ML BOTTLE EACHEYE SCH ×3 (05:00→22:00)
[2022-06-03 07:43] VITALS: TEMP 97.9
[2022-06-03] MEDS: HYDROGEN PEROXIDE 3% 118 ML BOTTLE TP SCH ×2 (08:20→21:07)
[2022-06-03] MEDS: ACETAMINOPHEN 650 MG/20.3 ML LIQUID UDC GT SCH ×2 (08:30→20:30)
[2022-06-03] MEDS: CLOTRIMAZOLE 1% CREAM 30 GM TUBE TP SCH ×2 (09:00→20:18)
[2022-06-03] MEDS: COD LIVER OIL/ZINC OXIDE OINT 113 GM TUBE TP SCH ×2 (09:00→20:18)
[2022-06-03] MEDS: levETIRAcetam 500 MG/5 ML LIQUID UDC GT SCH ×2 (09:00→20:17)
[2022-06-03] MEDS: POTASSIUM CHLORIDE 40 MEQ/30 ML LIQUID UDC GT SCH (09:00)
[2022-06-03] MEDS: REMEDY ESSENTIAL ZINC PASTE 113 GM TP SCH ×2 (09:00→20:18)
[2022-06-03] MEDS: DIGOXIN 125 MCG TABLET GT SCH (09:00)
[2022-06-03] MEDS: MEDIHONEY= THERAHONEY 1.5 OZ TUBE TOP SCH ×2 (09:00→20:18)
[2022-06-03] MEDS: FUROSEMIDE 20 MG TABLET GT SCH (09:00)
[2022-06-03] MEDS: ACIDOPHILUS/BULGARICUS CHEW TAB GT SCH (20:16)
[2022-06-03] MEDS: ASCORBIC ACID 500 MG TABLET GT SCH (20:17)
[2022-06-03] MEDS: NORMAL SALINE NASAL 45 ML BOTTLE NS SCH (20:17)
[2022-06-03 21:35] VITALS: TEMP 97.8
[2022-06-04] MEDS: GLUCERNA 1.2 1000ML LIQUID GT PRN (05:00)
[2022-06-04] MEDS: FAMOTIDINE 20 MG TABLET GT SCH ×2 (05:02→18:52)
[2022-06-04] MEDS: POLYVINYL ALCOHOL OPHT DROPS 15 ML BOTTLE EACHEYE SCH ×3 (05:02→21:02)
[2022-06-04] MEDS: ARGININE/GLUTAMINE/CALCIUM BMB 1 EACH POWD.PACK GT SCH ×2 (05:02→18:51)
[2022-06-04] MEDS: PROTEIN SUPPLEMENT (PROSTAT) 30 ML LIQUID GT SCH ×3 (05:02→21:03)
[2022-06-04 07:36] VITALS: TEMP 98.2
[2022-06-04] MEDS: HYDROGEN PEROXIDE 3% 118 ML BOTTLE TP SCH ×2 (08:01→17:26)
[2022-06-04] MEDS: ACETAMINOPHEN 650 MG/20.3 ML LIQUID UDC GT SCH ×2 (08:23→20:30)
[2022-06-04] MEDS: levETIRAcetam 500 MG/5 ML LIQUID UDC GT SCH ×2 (08:24→20:00)
[2022-06-04] MEDS: DIGOXIN 125 MCG TABLET GT SCH (08:24)
[2022-06-04] MEDS: POTASSIUM CHLORIDE 40 MEQ/30 ML LIQUID UDC GT SCH (08:24)
[2022-06-04] MEDS: FUROSEMIDE 20 MG TABLET GT SCH (08:24)
[2022-06-04] MEDS: CLOTRIMAZOLE 1% CREAM 30 GM TUBE TP SCH ×2 (08:25→20:01)
[2022-06-04] MEDS: MEDIHONEY= THERAHONEY 1.5 OZ TUBE TOP SCH ×2 (08:25→20:00)
[2022-06-04] MEDS: COD LIVER OIL/ZINC OXIDE OINT 113 GM TUBE TP SCH ×2 (08:25→20:01)
[2022-06-04] MEDS: REMEDY ESSENTIAL ZINC PASTE 113 GM TP SCH ×2 (08:25→20:01)
[2022-06-04 20:00] VITALS: TEMP 98
[2022-06-04] MEDS: ASCORBIC ACID 500 MG TABLET GT SCH (20:00)
[2022-06-04] MEDS: NORMAL SALINE NASAL 45 ML BOTTLE NS SCH (20:00)
[2022-06-04] MEDS: ACIDOPHILUS/BULGARICUS CHEW TAB GT SCH (20:00)
[2022-06-05] MEDS: ARGININE/GLUTAMINE/CALCIUM BMB 1 EACH POWD.PACK GT SCH ×2 (06:00→17:16)
[2022-06-05] MEDS: FAMOTIDINE 20 MG TABLET GT SCH ×2 (06:00→17:16)
[2022-06-05] MEDS: POLYVINYL ALCOHOL OPHT DROPS 15 ML BOTTLE EACHEYE SCH ×3 (06:00→21:18)
[2022-06-05] MEDS: PROTEIN SUPPLEMENT (PROSTAT) 30 ML LIQUID GT SCH ×3 (06:00→21:18)
[2022-06-05] MEDS: HYDROGEN PEROXIDE 3% 118 ML BOTTLE TP SCH ×2 (08:08→20:38)
[2022-06-05] MEDS: ACETAMINOPHEN 650 MG/20.3 ML LIQUID UDC GT SCH ×2 (08:17→20:14)
[2022-06-05] MEDS: levETIRAcetam 500 MG/5 ML LIQUID UDC GT SCH ×2 (08:19→20:14)
[2022-06-05] MEDS: DIGOXIN 125 MCG TABLET GT SCH (08:32)
[2022-06-05] MEDS: COD LIVER OIL/ZINC OXIDE OINT 113 GM TUBE TP SCH ×2 (08:35→21:18)
[2022-06-05] MEDS: MEDIHONEY= THERAHONEY 1.5 OZ TUBE TOP SCH ×2 (08:35→21:18)
[2022-06-05] MEDS: FUROSEMIDE 20 MG TABLET GT SCH (08:35)
[2022-06-05] MEDS: CLOTRIMAZOLE 1% CREAM 30 GM TUBE TP SCH ×2 (08:35→21:18)
[2022-06-05] MEDS: REMEDY ESSENTIAL ZINC PASTE 113 GM TP SCH ×2 (08:35→21:18)
[2022-06-05] MEDS: POTASSIUM CHLORIDE 40 MEQ/30 ML LIQUID UDC GT SCH (08:35)
[2022-06-05 08:38] VITALS: TEMP 97.7
[2022-06-05] MEDS: ACIDOPHILUS/BULGARICUS CHEW TAB GT SCH (20:14)
[2022-06-05] MEDS: ASCORBIC ACID 500 MG TABLET GT SCH (20:14)
[2022-06-05] MEDS: NORMAL SALINE NASAL 45 ML BOTTLE NS SCH (20:14)
[2022-06-05 20:31] VITALS: TEMP 97.8
[2022-06-05] MEDS: GLUCERNA 1.2 1000ML LIQUID GT PRN (21:49)
[2022-06-06] MEDS: FAMOTIDINE 20 MG TABLET GT SCH ×2 (05:04→17:23)
[2022-06-06] MEDS: PROTEIN SUPPLEMENT (PROSTAT) 30 ML LIQUID GT SCH ×3 (05:04→22:00)
[2022-06-06] MEDS: ARGININE/GLUTAMINE/CALCIUM BMB 1 EACH POWD.PACK GT SCH ×2 (05:04→17:22)
[2022-06-06] MEDS: POLYVINYL ALCOHOL OPHT DROPS 15 ML BOTTLE EACHEYE SCH ×3 (05:04→22:00)
[2022-06-06 07:29] VITALS: TEMP 98.1
[2022-06-06] MEDS: HYDROGEN PEROXIDE 3% 118 ML BOTTLE TP SCH ×2 (08:07→19:15)
[2022-06-06] MEDS: MEDIHONEY= THERAHONEY 1.5 OZ TUBE TOP SCH (08:50)
[2022-06-06] MEDS: ACETAMINOPHEN 650 MG/20.3 ML LIQUID UDC GT SCH ×2 (08:50→20:07)
[2022-06-06] MEDS: levETIRAcetam 500 MG/5 ML LIQUID UDC GT SCH ×2 (08:50→20:07)
[2022-06-06] MEDS: FUROSEMIDE 20 MG TABLET GT SCH (08:50)
[2022-06-06] MEDS: DIGOXIN 125 MCG TABLET GT SCH (08:50)
[2022-06-06] MEDS: POTASSIUM CHLORIDE 40 MEQ/30 ML LIQUID UDC GT SCH (08:50)
[2022-06-06] MEDS: REMEDY ESSENTIAL ZINC PASTE 113 GM TP SCH ×2 (08:51→20:07)
[2022-06-06] MEDS: CLOTRIMAZOLE 1% CREAM 30 GM TUBE TP SCH (08:51)
[2022-06-06] MEDS: COD LIVER OIL/ZINC OXIDE OINT 113 GM TUBE TP SCH (08:51)
[2022-06-06] MEDS: ACIDOPHILUS/BULGARICUS CHEW TAB GT SCH (20:07)
[2022-06-06] MEDS: NORMAL SALINE NASAL 45 ML BOTTLE NS SCH (20:07)
[2022-06-06] MEDS: ASCORBIC ACID 500 MG TABLET GT SCH (20:07)
[2022-06-06 20:12] VITALS: TEMP 98.3
[2022-06-07] MEDS: POLYVINYL ALCOHOL OPHT DROPS 15 ML BOTTLE EACHEYE SCH ×3 (05:24→22:00)
[2022-06-07] MEDS: FAMOTIDINE 20 MG TABLET GT SCH ×2 (05:24→17:16)
[2022-06-07] MEDS: PROTEIN SUPPLEMENT (PROSTAT) 30 ML LIQUID GT SCH ×3 (05:24→22:00)
[2022-06-07] MEDS: ARGININE/GLUTAMINE/CALCIUM BMB 1 EACH POWD.PACK GT SCH ×2 (05:24→17:16)
[2022-06-07 07:23] VITALS: TEMP 98.7
[2022-06-07] MEDS: ACETAMINOPHEN 650 MG/20.3 ML LIQUID UDC GT SCH ×2 (08:30→20:12)
[2022-06-07] MEDS: HYDROGEN PEROXIDE 3% 118 ML BOTTLE TP SCH ×2 (09:26→20:43)
[2022-06-07] MEDS: DIGOXIN 125 MCG TABLET GT SCH (09:52)
[2022-06-07] MEDS: POTASSIUM CHLORIDE 40 MEQ/30 ML LIQUID UDC GT SCH (09:52)
[2022-06-07] MEDS: FUROSEMIDE 20 MG TABLET GT SCH (09:52)
[2022-06-07] MEDS: levETIRAcetam 500 MG/5 ML LIQUID UDC GT SCH ×2 (09:52→20:12)
[2022-06-07] MEDS: REMEDY ESSENTIAL ZINC PASTE 113 GM TP SCH ×2 (09:52→20:14)
[2022-06-07] MEDS: GLUCERNA 1.2 1000ML LIQUID GT PRN (14:00)
[2022-06-07] MEDS: ACIDOPHILUS/BULGARICUS CHEW TAB GT SCH (20:12)
[2022-06-07] MEDS: NORMAL SALINE NASAL 45 ML BOTTLE NS SCH (20:12)
[2022-06-07] MEDS: ASCORBIC ACID 500 MG TABLET GT SCH (20:12)
[2022-06-07 21:01] VITALS: TEMP 98.9
[2022-06-08] MEDS: ARGININE/GLUTAMINE/CALCIUM BMB 1 EACH POWD.PACK GT SCH ×2 (05:21→17:03)
[2022-06-08] MEDS: POLYVINYL ALCOHOL OPHT DROPS 15 ML BOTTLE EACHEYE SCH ×3 (05:21→22:16)
[2022-06-08] MEDS: FAMOTIDINE 20 MG TABLET GT SCH ×2 (05:21→17:03)
[2022-06-08] MEDS: PROTEIN SUPPLEMENT (PROSTAT) 30 ML LIQUID GT SCH ×3 (05:22→22:00)
[2022-06-08 07:00] VITALS: O2SAT 99
[2022-06-08 07:18] VITALS: TEMP 98
[2022-06-08] MEDS: HYDROGEN PEROXIDE 3% 118 ML BOTTLE TP SCH ×2 (07:21→19:20)
[2022-06-08] MEDS: levETIRAcetam 500 MG/5 ML LIQUID UDC GT SCH ×2 (09:13→21:00)
[2022-06-08] MEDS: DIGOXIN 125 MCG TABLET GT SCH (09:13)
[2022-06-08] MEDS: FUROSEMIDE 20 MG TABLET GT SCH (09:13)
[2022-06-08] MEDS: POTASSIUM CHLORIDE 40 MEQ/30 ML LIQUID UDC GT SCH (09:13)
[2022-06-08] MEDS: ACETAMINOPHEN 650 MG/20.3 ML LIQUID UDC GT SCH ×2 (09:13→21:00)
[2022-06-08] MEDS: REMEDY ESSENTIAL ZINC PASTE 113 GM TP SCH ×2 (09:13→21:00)
[2022-06-08] MEDS: ACETAMINOPHEN 650 MG/20 ML UDC- SA PATIENTS-PAIN ONLY GT PRN ×2 (17:05→20:26)
[2022-06-08 20:00] VITALS: TEMP 98.1
[2022-06-08] MEDS: ACIDOPHILUS/BULGARICUS CHEW TAB GT SCH (21:00)
[2022-06-08] MEDS: NORMAL SALINE NASAL 45 ML BOTTLE NS SCH (21:00)
[2022-06-08] MEDS: ASCORBIC ACID 500 MG TABLET GT SCH (21:00)
[2022-06-09] MEDS: GLUCERNA 1.2 1000ML LIQUID GT PRN (02:17)
[2022-06-09] MEDS: PROTEIN SUPPLEMENT (PROSTAT) 30 ML LIQUID GT SCH ×3 (06:00→22:00)
[2022-06-09] MEDS: ARGININE/GLUTAMINE/CALCIUM BMB 1 EACH POWD.PACK GT SCH ×2 (06:24→17:15)
[2022-06-09] MEDS: FAMOTIDINE 20 MG TABLET GT SCH ×2 (06:24→17:15)
[2022-06-09] MEDS: POLYVINYL ALCOHOL OPHT DROPS 15 ML BOTTLE EACHEYE SCH ×3 (06:24→22:00)
[2022-06-09 06:58] LABS: BASOPHILS % (AUTO) 0.8 % (0.0-2.0); EOSINOPHILS # (AUTO) 0.3 K/uL (0.0-0.7); EOSINOPHILS % (AUTO) 5.2 % (0.0-7.0); HEMATOCRIT 35.8 % (31.2-41.9); HEMOGLOBIN 11.6 g/dL (10.9-14.3); LYMPHOCYTES # (AUTO) 1.8 K/uL (0.8-4.8); LYMPHOCYTES % (AUTO) 35.8 % (20.5-51.5); MEAN CORPUSCULAR HEMOGLOBIN 28.6 uug (24.7-32.8); MEAN CORPUSCULAR HGB CONC 33 g/dL (32.3-35.6); MONOCYTES # (AUTO) 0.6 K/uL (0.1-1.30); MONOCYTES % (AUTO) 11.4 % (0.0-11.0); NEUTROPHILS # (AUTO) 2.3 K/uL (1.8-8.9); NEUTROPHILS % (AUTO) 46.8 % (38.5-71.5); PLATELET COUNT (AUTO) 153 K/uL (179-408); RED BLOOD CELL COUNT(AUTO) 4.07 MIL/uL (3.63-4.92); RED CELL DISTRIBUTION WIDTH 17.6 % (12.3-17.7); WHITE BLOOD COUNT (AUTO) 4.9 K/uL (3.8-11.8)
[2022-06-09 07:20] LABS: CARBON DIOXIDE 24 mmol/L (21-32); CHLORIDE 107 mmol/L (98-107); CREATININE 0.5 mg/dL (0.6-1.3); GLUCOSE 112 mg/dL (74-106); MAGNESIUM 2.3 mg/dL (1.8-2.4); PHOSPHOROUS 3.6 mg/dL (2.5-4.9); POTASSIUM 3.5 mmol/L (3.5-5.1); SODIUM SERUM 143 mmol/L (136-145); UREA NITROGEN, BLOOD 21 mg/dL (7-18)
[2022-06-09 07:27] VITALS: TEMP 98.2
[2022-06-09 07:54] LABS: DIFFERENTIAL COMMENT 1
[2022-06-09] MEDS: CLOTRIMAZOLE 1% CREAM 30 GM TUBE TP SCH ×2 (09:00→20:02)
[2022-06-09] MEDS: MEDIHONEY= THERAHONEY 1.5 OZ TUBE TOP SCH ×2 (09:00→20:02)
[2022-06-09] MEDS: HYDROGEN PEROXIDE 3% 118 ML BOTTLE TP SCH ×2 (09:00→19:47)
[2022-06-09] MEDS: COD LIVER OIL/ZINC OXIDE OINT 113 GM TUBE TP SCH ×2 (09:00→20:02)
[2022-06-09] MEDS: ACETAMINOPHEN 650 MG/20.3 ML LIQUID UDC GT SCH ×2 (09:16→20:02)
[2022-06-09] MEDS: levETIRAcetam 500 MG/5 ML LIQUID UDC GT SCH ×2 (09:16→20:02)
[2022-06-09] MEDS: DIGOXIN 125 MCG TABLET GT SCH (09:17)
[2022-06-09] MEDS: FUROSEMIDE 20 MG TABLET GT SCH (09:17)
[2022-06-09] MEDS: REMEDY ESSENTIAL ZINC PASTE 113 GM TP SCH ×2 (09:17→20:02)
[2022-06-09] MEDS: POTASSIUM CHLORIDE 40 MEQ/30 ML LIQUID UDC GT SCH (09:17)
[2022-06-09] MEDS ORDERED: CLOTRIMAZOLE 1% CREAM 30 GM TUBE TP PRN (14:15)
[2022-06-09] MEDS ORDERED: MEDIHONEY= THERAHONEY 1.5 OZ TUBE TOP PRN (14:15)
[2022-06-09] MEDS ORDERED: COD LIVER OIL/ZINC OXIDE OINT 113 GM TUBE TP PRN (14:30)
[2022-06-09 20:00] VITALS: TEMP 98.1
[2022-06-09] MEDS: NORMAL SALINE NASAL 45 ML BOTTLE NS SCH (20:02)
[2022-06-09] MEDS: ASCORBIC ACID 500 MG TABLET GT SCH (20:02)
[2022-06-09] MEDS: ACIDOPHILUS/BULGARICUS CHEW TAB GT SCH (20:02)
[2022-06-10] MEDS: PROTEIN SUPPLEMENT (PROSTAT) 30 ML LIQUID GT SCH ×3 (05:04→22:16)
[2022-06-10] MEDS: FAMOTIDINE 20 MG TABLET GT SCH ×2 (05:04→17:05)
[2022-06-10] MEDS: POLYVINYL ALCOHOL OPHT DROPS 15 ML BOTTLE EACHEYE SCH ×3 (05:04→22:16)
[2022-06-10] MEDS: ARGININE/GLUTAMINE/CALCIUM BMB 1 EACH POWD.PACK GT SCH ×2 (05:04→17:05)
[2022-06-10] MEDS: GLUCERNA 1.2 1000ML LIQUID GT PRN (05:05)
[2022-06-10 07:46] VITALS: TEMP 97.6
[2022-06-10] MEDS: ACETAMINOPHEN 650 MG/20.3 ML LIQUID UDC GT SCH ×2 (09:07→20:24)
[2022-06-10] MEDS: HYDROGEN PEROXIDE 3% 118 ML BOTTLE TP SCH ×2 (09:07→19:18)
[2022-06-10] MEDS: levETIRAcetam 500 MG/5 ML LIQUID UDC GT SCH ×2 (09:08→20:24)
[2022-06-10] MEDS: POTASSIUM CHLORIDE 40 MEQ/30 ML LIQUID UDC GT SCH (09:08)
[2022-06-10] MEDS: DIGOXIN 125 MCG TABLET GT SCH (09:08)
[2022-06-10] MEDS: FUROSEMIDE 20 MG TABLET GT SCH (09:08)
[2022-06-10] MEDS: COD LIVER OIL/ZINC OXIDE OINT 113 GM TUBE TP SCH ×2 (09:09→20:24)
[2022-06-10] MEDS: MEDIHONEY= THERAHONEY 1.5 OZ TUBE TOP SCH ×2 (09:09→20:24)
[2022-06-10] MEDS: REMEDY ESSENTIAL ZINC PASTE 113 GM TP SCH ×2 (09:10→20:25)
[2022-06-10] MEDS: CLOTRIMAZOLE 1% CREAM 30 GM TUBE TP SCH ×2 (09:10→20:24)
[2022-06-10 19:51] VITALS: TEMP 97.8
[2022-06-10] MEDS: NORMAL SALINE NASAL 45 ML BOTTLE NS SCH (20:24)
[2022-06-10] MEDS: ACIDOPHILUS/BULGARICUS CHEW TAB GT SCH (20:24)
[2022-06-10] MEDS: ASCORBIC ACID 500 MG TABLET GT SCH (20:24)
[2022-06-11] MEDS: POLYVINYL ALCOHOL OPHT DROPS 15 ML BOTTLE EACHEYE SCH ×3 (05:10→22:00)
[2022-06-11] MEDS: PROTEIN SUPPLEMENT (PROSTAT) 30 ML LIQUID GT SCH ×3 (05:10→22:00)
[2022-06-11] MEDS: ARGININE/GLUTAMINE/CALCIUM BMB 1 EACH POWD.PACK GT SCH ×2 (05:10→17:28)
[2022-06-11] MEDS: FAMOTIDINE 20 MG TABLET GT SCH ×2 (05:10→17:28)
[2022-06-11 07:51] VITALS: TEMP 97.7
[2022-06-11] MEDS: HYDROGEN PEROXIDE 3% 118 ML BOTTLE TP SCH ×2 (08:02→19:15)
[2022-06-11] MEDS: levETIRAcetam 500 MG/5 ML LIQUID UDC GT SCH ×2 (09:25→21:00)
[2022-06-11] MEDS: ACETAMINOPHEN 650 MG/20.3 ML LIQUID UDC GT SCH ×2 (09:25→20:30)
[2022-06-11] MEDS: FUROSEMIDE 20 MG TABLET GT SCH (09:26)
[2022-06-11] MEDS: POTASSIUM CHLORIDE 40 MEQ/30 ML LIQUID UDC GT SCH (09:26)
[2022-06-11] MEDS: DIGOXIN 125 MCG TABLET GT SCH (09:26)
[2022-06-11] MEDS: MEDIHONEY= THERAHONEY 1.5 OZ TUBE TOP SCH ×2 (09:26→21:00)
[2022-06-11] MEDS: COD LIVER OIL/ZINC OXIDE OINT 113 GM TUBE TP SCH ×2 (09:26→21:00)
[2022-06-11] MEDS: REMEDY ESSENTIAL ZINC PASTE 113 GM TP SCH ×2 (09:26→21:00)
[2022-06-11] MEDS: CLOTRIMAZOLE 1% CREAM 30 GM TUBE TP SCH ×2 (09:26→21:00)
[2022-06-11 19:42] VITALS: TEMP 98.6
[2022-06-11] MEDS: ASCORBIC ACID 500 MG TABLET GT SCH (21:00)
[2022-06-11] MEDS: NORMAL SALINE NASAL 45 ML BOTTLE NS SCH (21:00)
[2022-06-11] MEDS: ACIDOPHILUS/BULGARICUS CHEW TAB GT SCH (21:00)
[2022-06-12] MEDS: ARGININE/GLUTAMINE/CALCIUM BMB 1 EACH POWD.PACK GT SCH ×2 (05:03→17:27)
[2022-06-12] MEDS: PROTEIN SUPPLEMENT (PROSTAT) 30 ML LIQUID GT SCH ×3 (05:03→21:27)
[2022-06-12] MEDS: FAMOTIDINE 20 MG TABLET GT SCH ×2 (05:03→17:27)
[2022-06-12] MEDS: POLYVINYL ALCOHOL OPHT DROPS 15 ML BOTTLE EACHEYE SCH ×3 (05:03→21:27)
[2022-06-12 07:27] VITALS: TEMP 98.3
[2022-06-12] MEDS: HYDROGEN PEROXIDE 3% 118 ML BOTTLE TP SCH ×2 (08:00→20:38)
[2022-06-12] MEDS: ACETAMINOPHEN 650 MG/20.3 ML LIQUID UDC GT SCH ×2 (08:15→21:25)
[2022-06-12] MEDS: levETIRAcetam 500 MG/5 ML LIQUID UDC GT SCH ×2 (08:15→21:25)
[2022-06-12] MEDS: POTASSIUM CHLORIDE 40 MEQ/30 ML LIQUID UDC GT SCH (08:16)
[2022-06-12] MEDS: FUROSEMIDE 20 MG TABLET GT SCH (08:16)
[2022-06-12] MEDS: DIGOXIN 125 MCG TABLET GT SCH (08:16)
[2022-06-12] MEDS: MEDIHONEY= THERAHONEY 1.5 OZ TUBE TOP SCH ×2 (08:17→21:26)
[2022-06-12] MEDS: CLOTRIMAZOLE 1% CREAM 30 GM TUBE TP SCH ×2 (08:17→21:26)
[2022-06-12] MEDS: COD LIVER OIL/ZINC OXIDE OINT 113 GM TUBE TP SCH ×2 (08:17→21:26)
[2022-06-12] MEDS: REMEDY ESSENTIAL ZINC PASTE 113 GM TP SCH ×2 (08:17→21:27)
[2022-06-12 20:09] VITALS: TEMP 98.5
[2022-06-12] MEDS: ACIDOPHILUS/BULGARICUS CHEW TAB GT SCH (21:25)
[2022-06-12] MEDS: ASCORBIC ACID 500 MG TABLET GT SCH (21:25)
[2022-06-12] MEDS: NORMAL SALINE NASAL 45 ML BOTTLE NS SCH (21:26)
[2022-06-13] MEDS: GLUCERNA 1.2 1000ML LIQUID GT PRN (01:00)
[2022-06-13] MEDS: ARGININE/GLUTAMINE/CALCIUM BMB 1 EACH POWD.PACK GT SCH ×2 (05:05→18:34)
[2022-06-13] MEDS: PROTEIN SUPPLEMENT (PROSTAT) 30 ML LIQUID GT SCH ×3 (05:05→21:03)
[2022-06-13] MEDS: FAMOTIDINE 20 MG TABLET GT SCH ×2 (05:05→18:34)
[2022-06-13] MEDS: POLYVINYL ALCOHOL OPHT DROPS 15 ML BOTTLE EACHEYE SCH ×3 (05:05→21:02)
[2022-06-13 07:23] VITALS: TEMP 98.2
[2022-06-13] MEDS: HYDROGEN PEROXIDE 3% 118 ML BOTTLE TP SCH ×2 (09:00→19:18)
[2022-06-13] MEDS: ACETAMINOPHEN 650 MG/20.3 ML LIQUID UDC GT SCH ×2 (09:07→20:59)
[2022-06-13] MEDS: levETIRAcetam 500 MG/5 ML LIQUID UDC GT SCH ×2 (09:08→21:01)
[2022-06-13] MEDS: FUROSEMIDE 20 MG TABLET GT SCH (09:09)
[2022-06-13] MEDS: POTASSIUM CHLORIDE 40 MEQ/30 ML LIQUID UDC GT SCH (09:09)
[2022-06-13] MEDS: DIGOXIN 125 MCG TABLET GT SCH (09:09)
[2022-06-13] MEDS: REMEDY ESSENTIAL ZINC PASTE 113 GM TP SCH ×2 (09:11→21:02)
[2022-06-13] MEDS: COD LIVER OIL/ZINC OXIDE OINT 113 GM TUBE TP SCH ×2 (09:11→21:01)
[2022-06-13] MEDS: MEDIHONEY= THERAHONEY 1.5 OZ TUBE TOP SCH ×2 (09:11→21:01)
[2022-06-13] MEDS: CLOTRIMAZOLE 1% CREAM 30 GM TUBE TP SCH ×2 (09:11→21:02)
[2022-06-13 20:00] VITALS: TEMP 98
[2022-06-13] MEDS: ASCORBIC ACID 500 MG TABLET GT SCH (21:01)
[2022-06-13] MEDS: NORMAL SALINE NASAL 45 ML BOTTLE NS SCH (21:01)
[2022-06-13] MEDS: ACIDOPHILUS/BULGARICUS CHEW TAB GT SCH (21:01)
[2022-06-13 22:00] VITALS: TEMP 98
[2022-06-14] MEDS: POLYVINYL ALCOHOL OPHT DROPS 15 ML BOTTLE EACHEYE SCH ×3 (05:24→22:06)
[2022-06-14] MEDS: ARGININE/GLUTAMINE/CALCIUM BMB 1 EACH POWD.PACK GT SCH ×2 (05:24→17:01)
[2022-06-14] MEDS: FAMOTIDINE 20 MG TABLET GT SCH ×2 (05:24→17:01)
[2022-06-14] MEDS: PROTEIN SUPPLEMENT (PROSTAT) 30 ML LIQUID GT SCH ×3 (05:24→22:06)
[2022-06-14 07:19] VITALS: TEMP 98.4
[2022-06-14] MEDS: ACETAMINOPHEN 650 MG/20.3 ML LIQUID UDC GT SCH ×2 (08:30→20:39)
[2022-06-14] MEDS: HYDROGEN PEROXIDE 3% 118 ML BOTTLE TP SCH ×2 (09:00→19:18)
[2022-06-14] MEDS: COD LIVER OIL/ZINC OXIDE OINT 113 GM TUBE TP SCH ×2 (09:45→20:39)
[2022-06-14] MEDS: POTASSIUM CHLORIDE 40 MEQ/30 ML LIQUID UDC GT SCH (09:45)
[2022-06-14] MEDS: levETIRAcetam 500 MG/5 ML LIQUID UDC GT SCH ×2 (09:45→20:39)
[2022-06-14] MEDS: MEDIHONEY= THERAHONEY 1.5 OZ TUBE TOP SCH ×2 (09:45→20:39)
[2022-06-14] MEDS: FUROSEMIDE 20 MG TABLET GT SCH (09:45)
[2022-06-14] MEDS: DIGOXIN 125 MCG TABLET GT SCH (09:45)
[2022-06-14] MEDS: CLOTRIMAZOLE 1% CREAM 30 GM TUBE TP SCH ×2 (09:46→20:40)
[2022-06-14] MEDS: REMEDY ESSENTIAL ZINC PASTE 113 GM TP SCH ×2 (09:46→20:40)
[2022-06-14] MEDS: GLUCERNA 1.2 1000ML LIQUID GT PRN (10:21)
[2022-06-14 20:00] VITALS: TEMP 98.1
[2022-06-14] MEDS: ACIDOPHILUS/BULGARICUS CHEW TAB GT SCH (20:39)
[2022-06-14] MEDS: ASCORBIC ACID 500 MG TABLET GT SCH (20:39)
[2022-06-14] MEDS: NORMAL SALINE NASAL 45 ML BOTTLE NS SCH (20:39)
[2022-06-15] MEDS: FAMOTIDINE 20 MG TABLET GT SCH ×2 (05:00→17:08)
[2022-06-15] MEDS: PROTEIN SUPPLEMENT (PROSTAT) 30 ML LIQUID GT SCH ×3 (05:00→22:00)
[2022-06-15] MEDS: POLYVINYL ALCOHOL OPHT DROPS 15 ML BOTTLE EACHEYE SCH ×3 (05:00→22:00)
[2022-06-15] MEDS: ARGININE/GLUTAMINE/CALCIUM BMB 1 EACH POWD.PACK GT SCH ×2 (05:00→17:08)
[2022-06-15 08:03] VITALS: TEMP 97.7
[2022-06-15] MEDS: ACETAMINOPHEN 650 MG/20.3 ML LIQUID UDC GT SCH ×2 (08:30→20:23)
[2022-06-15] MEDS: REMEDY ESSENTIAL ZINC PASTE 113 GM TP SCH ×2 (09:00→21:00)
[2022-06-15] MEDS: DIGOXIN 125 MCG TABLET GT SCH (09:00)
[2022-06-15] MEDS: HYDROGEN PEROXIDE 3% 118 ML BOTTLE TP SCH ×2 (09:00→19:20)
[2022-06-15] MEDS: CLOTRIMAZOLE 1% CREAM 30 GM TUBE TP SCH ×2 (09:00→21:00)
[2022-06-15] MEDS: MEDIHONEY= THERAHONEY 1.5 OZ TUBE TOP SCH ×2 (09:00→21:00)
[2022-06-15] MEDS: POTASSIUM CHLORIDE 40 MEQ/30 ML LIQUID UDC GT SCH (09:00)
[2022-06-15] MEDS: COD LIVER OIL/ZINC OXIDE OINT 113 GM TUBE TP SCH ×2 (09:00→21:00)
[2022-06-15] MEDS: FUROSEMIDE 20 MG TABLET GT SCH (09:00)
[2022-06-15] MEDS: levETIRAcetam 500 MG/5 ML LIQUID UDC GT SCH ×2 (09:00→20:23)
[2022-06-15] MEDS: ACIDOPHILUS/BULGARICUS CHEW TAB GT SCH (20:23)
[2022-06-15] MEDS: NORMAL SALINE NASAL 45 ML BOTTLE NS SCH (20:24)
[2022-06-15] MEDS: ASCORBIC ACID 500 MG TABLET GT SCH (20:24)
[2022-06-15 20:30] VITALS: TEMP 97.9
[2022-06-16] MEDS: POLYVINYL ALCOHOL OPHT DROPS 15 ML BOTTLE EACHEYE SCH ×3 (05:16→22:00)
[2022-06-16] MEDS: FAMOTIDINE 20 MG TABLET GT SCH ×2 (05:16→18:17)
[2022-06-16] MEDS: PROTEIN SUPPLEMENT (PROSTAT) 30 ML LIQUID GT SCH ×3 (05:16→22:00)
[2022-06-16] MEDS: ARGININE/GLUTAMINE/CALCIUM BMB 1 EACH POWD.PACK GT SCH ×2 (05:16→17:52)
[2022-06-16 07:47] VITALS: TEMP 97.4
[2022-06-16] MEDS: HYDROGEN PEROXIDE 3% 118 ML BOTTLE TP SCH ×2 (08:36→21:07)
[2022-06-16] MEDS: MEDIHONEY= THERAHONEY 1.5 OZ TUBE TOP SCH ×2 (09:00→20:00)
[2022-06-16] MEDS: CLOTRIMAZOLE 1% CREAM 30 GM TUBE TP SCH ×2 (09:00→20:00)
[2022-06-16] MEDS: levETIRAcetam 500 MG/5 ML LIQUID UDC GT SCH ×2 (09:20→20:00)
[2022-06-16] MEDS: ACETAMINOPHEN 650 MG/20.3 ML LIQUID UDC GT SCH ×2 (09:20→20:00)
[2022-06-16] MEDS: DIGOXIN 125 MCG TABLET GT SCH (09:21)
[2022-06-16] MEDS: FUROSEMIDE 20 MG TABLET GT SCH (09:21)
[2022-06-16] MEDS: POTASSIUM CHLORIDE 40 MEQ/30 ML LIQUID UDC GT SCH (09:22)
[2022-06-16] MEDS: COD LIVER OIL/ZINC OXIDE OINT 113 GM TUBE TP SCH ×2 (09:22→20:00)
[2022-06-16] MEDS: REMEDY ESSENTIAL ZINC PASTE 113 GM TP SCH ×2 (09:23→20:00)
[2022-06-16 19:54] VITALS: TEMP 97.5
[2022-06-16] MEDS: ASCORBIC ACID 500 MG TABLET GT SCH (20:00)
[2022-06-16] MEDS: NORMAL SALINE NASAL 45 ML BOTTLE NS SCH (20:00)
[2022-06-16] MEDS: ACIDOPHILUS/BULGARICUS CHEW TAB GT SCH (20:00)
[2022-06-17] MEDS: ARGININE/GLUTAMINE/CALCIUM BMB 1 EACH POWD.PACK GT SCH ×2 (05:01→17:32)
[2022-06-17] MEDS: POLYVINYL ALCOHOL OPHT DROPS 15 ML BOTTLE EACHEYE SCH ×3 (05:01→21:56)
[2022-06-17] MEDS: FAMOTIDINE 20 MG TABLET GT SCH ×2 (05:01→17:32)
[2022-06-17] MEDS: PROTEIN SUPPLEMENT (PROSTAT) 30 ML LIQUID GT SCH ×3 (05:01→21:56)
[2022-06-17] MEDS: GLUCERNA 1.2 1000ML LIQUID GT PRN (05:02)
[2022-06-17 07:47] VITALS: TEMP 98.5
[2022-06-17] MEDS: HYDROGEN PEROXIDE 3% 118 ML BOTTLE TP SCH ×2 (08:01→19:52)
[2022-06-17] MEDS: ACETAMINOPHEN 650 MG/20.3 ML LIQUID UDC GT SCH ×2 (08:51→20:40)
[2022-06-17] MEDS: levETIRAcetam 500 MG/5 ML LIQUID UDC GT SCH ×2 (08:51→20:42)
[2022-06-17] MEDS: POTASSIUM CHLORIDE 40 MEQ/30 ML LIQUID UDC GT SCH (08:53)
[2022-06-17] MEDS: DIGOXIN 125 MCG TABLET GT SCH (08:53)
[2022-06-17] MEDS: FUROSEMIDE 20 MG TABLET GT SCH (08:53)
[2022-06-17] MEDS: CLOTRIMAZOLE 1% CREAM 30 GM TUBE TP SCH ×2 (08:54→20:43)
[2022-06-17] MEDS: REMEDY ESSENTIAL ZINC PASTE 113 GM TP SCH ×2 (08:54→20:43)
[2022-06-17] MEDS: COD LIVER OIL/ZINC OXIDE OINT 113 GM TUBE TP SCH ×2 (08:54→20:42)
[2022-06-17] MEDS: MEDIHONEY= THERAHONEY 1.5 OZ TUBE TOP SCH ×2 (08:54→20:42)
[2022-06-17 20:09] VITALS: TEMP 97.7
[2022-06-17] MEDS: ACIDOPHILUS/BULGARICUS CHEW TAB GT SCH (20:40)
[2022-06-17] MEDS: NORMAL SALINE NASAL 45 ML BOTTLE NS SCH (20:42)
[2022-06-17] MEDS: ASCORBIC ACID 500 MG TABLET GT SCH (20:42)
[2022-06-18] MEDS: ARGININE/GLUTAMINE/CALCIUM BMB 1 EACH POWD.PACK GT SCH ×2 (05:04→18:30)
[2022-06-18] MEDS: POLYVINYL ALCOHOL OPHT DROPS 15 ML BOTTLE EACHEYE SCH ×3 (05:04→22:00)
[2022-06-18] MEDS: PROTEIN SUPPLEMENT (PROSTAT) 30 ML LIQUID GT SCH ×3 (05:04→22:00)
[2022-06-18] MEDS: FAMOTIDINE 20 MG TABLET GT SCH ×2 (05:04→18:30)
[2022-06-18 07:36] VITALS: TEMP 98
[2022-06-18] MEDS: DIGOXIN 125 MCG TABLET GT SCH (08:52)
[2022-06-18] MEDS: POTASSIUM CHLORIDE 40 MEQ/30 ML LIQUID UDC GT SCH (08:52)
[2022-06-18] MEDS: levETIRAcetam 500 MG/5 ML LIQUID UDC GT SCH ×2 (08:52→20:21)
[2022-06-18] MEDS: FUROSEMIDE 20 MG TABLET GT SCH (08:52)
[2022-06-18] MEDS: ACETAMINOPHEN 650 MG/20.3 ML LIQUID UDC GT SCH ×2 (08:52→20:21)
[2022-06-18] MEDS: MEDIHONEY= THERAHONEY 1.5 OZ TUBE TOP SCH ×2 (08:53→20:30)
[2022-06-18] MEDS: COD LIVER OIL/ZINC OXIDE OINT 113 GM TUBE TP SCH ×2 (08:55→20:30)
[2022-06-18] MEDS: REMEDY ESSENTIAL ZINC PASTE 113 GM TP SCH ×2 (08:55→20:30)
[2022-06-18] MEDS: CLOTRIMAZOLE 1% CREAM 30 GM TUBE TP SCH ×2 (08:55→20:30)
[2022-06-18] MEDS: HYDROGEN PEROXIDE 3% 118 ML BOTTLE TP SCH ×2 (09:35→19:25)
[2022-06-18] MEDS: GLUCERNA 1.2 1000ML LIQUID GT PRN (18:30)
[2022-06-18 20:15] VITALS: TEMP 97.7
[2022-06-18] MEDS: ACIDOPHILUS/BULGARICUS CHEW TAB GT SCH (20:21)
[2022-06-18] MEDS: ASCORBIC ACID 500 MG TABLET GT SCH (20:29)
[2022-06-18] MEDS: NORMAL SALINE NASAL 45 ML BOTTLE NS SCH (20:29)
[2022-06-19] MEDS: POLYVINYL ALCOHOL OPHT DROPS 15 ML BOTTLE EACHEYE SCH ×3 (05:06→22:27)
[2022-06-19] MEDS: ARGININE/GLUTAMINE/CALCIUM BMB 1 EACH POWD.PACK GT SCH ×2 (05:06→17:24)
[2022-06-19] MEDS: FAMOTIDINE 20 MG TABLET GT SCH ×2 (05:06→17:24)
[2022-06-19] MEDS: PROTEIN SUPPLEMENT (PROSTAT) 30 ML LIQUID GT SCH ×3 (05:06→22:27)
[2022-06-19] MEDS: HYDROGEN PEROXIDE 3% 118 ML BOTTLE TP SCH ×2 (07:10→20:43)
[2022-06-19 07:33] VITALS: TEMP 98.6
[2022-06-19] MEDS: ACETAMINOPHEN 650 MG/20.3 ML LIQUID UDC GT SCH ×2 (08:14→20:07)
[2022-06-19] MEDS: levETIRAcetam 500 MG/5 ML LIQUID UDC GT SCH ×2 (08:14→20:07)
[2022-06-19] MEDS: DIGOXIN 125 MCG TABLET GT SCH (08:15)
[2022-06-19] MEDS: FUROSEMIDE 20 MG TABLET GT SCH (08:16)
[2022-06-19] MEDS: POTASSIUM CHLORIDE 40 MEQ/30 ML LIQUID UDC GT SCH (08:16)
[2022-06-19] MEDS: CLOTRIMAZOLE 1% CREAM 30 GM TUBE TP SCH ×2 (08:17→20:08)
[2022-06-19] MEDS: COD LIVER OIL/ZINC OXIDE OINT 113 GM TUBE TP SCH ×2 (08:17→20:08)
[2022-06-19] MEDS: REMEDY ESSENTIAL ZINC PASTE 113 GM TP SCH ×2 (08:17→20:08)
[2022-06-19] MEDS: MEDIHONEY= THERAHONEY 1.5 OZ TUBE TOP SCH ×2 (08:17→20:08)
[2022-06-19] MEDS: ACIDOPHILUS/BULGARICUS CHEW TAB GT SCH (20:07)
[2022-06-19] MEDS: ASCORBIC ACID 500 MG TABLET GT SCH (20:08)
[2022-06-19] MEDS: NORMAL SALINE NASAL 45 ML BOTTLE NS SCH (20:08)
[2022-06-19 20:23] VITALS: TEMP 98.6
[2022-06-20] MEDS: FAMOTIDINE 20 MG TABLET GT SCH ×2 (05:11→17:20)
[2022-06-20] MEDS: POLYVINYL ALCOHOL OPHT DROPS 15 ML BOTTLE EACHEYE SCH ×3 (05:11→20:40)
[2022-06-20] MEDS: ARGININE/GLUTAMINE/CALCIUM BMB 1 EACH POWD.PACK GT SCH ×2 (05:11→17:20)
[2022-06-20] MEDS: PROTEIN SUPPLEMENT (PROSTAT) 30 ML LIQUID GT SCH ×3 (05:11→20:40)
[2022-06-20 07:15] LABS: BASOPHILS % (AUTO) 0.8 % (0.0-2.0); EOSINOPHILS # (AUTO) 0.3 K/uL (0.0-0.7); HEMATOCRIT 36.3 % (31.2-41.9); HEMOGLOBIN 11.7 g/dL (10.9-14.3); LYMPHOCYTES # (AUTO) 1.9 K/uL (0.8-4.8); LYMPHOCYTES % (AUTO) 35.6 % (20.5-51.5); MEAN CORPUSCULAR HGB CONC 32 g/dL (32.3-35.6); MEAN CORPUSCULAR VOLUME 89.7 fL (75.5-95.3); MONOCYTES # (AUTO) 0.5 K/uL (0.1-1.30); NEUTROPHILS # (AUTO) 2.6 K/uL (1.8-8.9); NEUTROPHILS % (AUTO) 48.6 % (38.5-71.5); PLATELET COUNT (AUTO) 131 K/uL (179-408); RED BLOOD CELL COUNT(AUTO) 4.04 MIL/uL (3.63-4.92); WHITE BLOOD COUNT (AUTO) 5.3 K/uL (3.8-11.8)
[2022-06-20 07:19] VITALS: TEMP 98.1
[2022-06-20 07:35] LABS: CALCIUM 9.2 mg/dL (8.5-10.1); CARBON DIOXIDE 27 mmol/L (21-32); CHLORIDE 109 mmol/L (98-107); CREATININE 0.5 mg/dL (0.6-1.3); GLUCOSE 108 mg/dL (74-106); MAGNESIUM 2.4 mg/dL (1.8-2.4); PHOSPHOROUS 3.3 mg/dL (2.5-4.9); POTASSIUM 3.8 mmol/L (3.5-5.1); SODIUM SERUM 145 mmol/L (136-145); UREA NITROGEN, BLOOD 46 mg/dL (7-18)
[2022-06-20 08:01] LABS: DIFFERENTIAL COMMENT 1
[2022-06-20] MEDS: HYDROGEN PEROXIDE 3% 118 ML BOTTLE TP SCH ×2 (08:16→21:57)
[2022-06-20] MEDS: ACETAMINOPHEN 650 MG/20.3 ML LIQUID UDC GT SCH ×2 (08:51→20:39)
[2022-06-20] MEDS: levETIRAcetam 500 MG/5 ML LIQUID UDC GT SCH ×2 (08:51→20:39)
[2022-06-20] MEDS: FUROSEMIDE 20 MG TABLET GT SCH (08:52)
[2022-06-20] MEDS: POTASSIUM CHLORIDE 40 MEQ/30 ML LIQUID UDC GT SCH (08:52)
[2022-06-20] MEDS: MEDIHONEY= THERAHONEY 1.5 OZ TUBE TOP SCH ×2 (08:52→20:39)
[2022-06-20] MEDS: DIGOXIN 125 MCG TABLET GT SCH (08:52)
[2022-06-20] MEDS: REMEDY ESSENTIAL ZINC PASTE 113 GM TP SCH ×2 (08:53→20:40)
[2022-06-20] MEDS: CLOTRIMAZOLE 1% CREAM 30 GM TUBE TP SCH ×2 (08:53→20:40)
[2022-06-20] MEDS: COD LIVER OIL/ZINC OXIDE OINT 113 GM TUBE TP SCH ×2 (08:53→20:39)
[2022-06-20] MEDS: GLUCERNA 1.2 1000ML LIQUID GT PRN (12:58)
[2022-06-20 19:54] VITALS: TEMP 98.3
[2022-06-20] MEDS: NORMAL SALINE NASAL 45 ML BOTTLE NS SCH (20:39)
[2022-06-20] MEDS: ASCORBIC ACID 500 MG TABLET GT SCH (20:39)
[2022-06-20] MEDS: ACIDOPHILUS/BULGARICUS CHEW TAB GT SCH (20:39)
[2022-06-21] MEDS: POLYVINYL ALCOHOL OPHT DROPS 15 ML BOTTLE EACHEYE SCH ×3 (05:58→22:00)
[2022-06-21] MEDS: FAMOTIDINE 20 MG TABLET GT SCH ×2 (05:58→17:17)
[2022-06-21] MEDS: ARGININE/GLUTAMINE/CALCIUM BMB 1 EACH POWD.PACK GT SCH ×2 (05:58→17:17)
[2022-06-21] MEDS: PROTEIN SUPPLEMENT (PROSTAT) 30 ML LIQUID GT SCH ×3 (05:59→22:00)
[2022-06-21 07:17] VITALS: TEMP 98.4
[2022-06-21] MEDS: ACETAMINOPHEN 650 MG/20.3 ML LIQUID UDC GT SCH ×2 (08:15→20:48)
[2022-06-21] MEDS: levETIRAcetam 500 MG/5 ML LIQUID UDC GT SCH ×2 (08:15→20:48)
[2022-06-21] MEDS: DIGOXIN 125 MCG TABLET GT SCH (08:16)
[2022-06-21] MEDS: MEDIHONEY= THERAHONEY 1.5 OZ TUBE TOP SCH ×2 (08:16→20:48)
[2022-06-21] MEDS: FUROSEMIDE 20 MG TABLET GT SCH (08:16)
[2022-06-21] MEDS: COD LIVER OIL/ZINC OXIDE OINT 113 GM TUBE TP SCH ×2 (08:16→20:48)
[2022-06-21] MEDS: POTASSIUM CHLORIDE 40 MEQ/30 ML LIQUID UDC GT SCH (08:16)
[2022-06-21] MEDS: CLOTRIMAZOLE 1% CREAM 30 GM TUBE TP SCH ×2 (08:17→20:49)
[2022-06-21] MEDS: REMEDY ESSENTIAL ZINC PASTE 113 GM TP SCH ×2 (08:17→20:49)
[2022-06-21] MEDS: HYDROGEN PEROXIDE 3% 118 ML BOTTLE TP SCH ×2 (08:26→21:29)
[2022-06-21 19:49] VITALS: TEMP 98.6
[2022-06-21] MEDS: ACIDOPHILUS/BULGARICUS CHEW TAB GT SCH (20:48)
[2022-06-21] MEDS: NORMAL SALINE NASAL 45 ML BOTTLE NS SCH (20:48)
[2022-06-21] MEDS: ASCORBIC ACID 500 MG TABLET GT SCH (20:48)
[2022-06-22] MEDS: POLYVINYL ALCOHOL OPHT DROPS 15 ML BOTTLE EACHEYE SCH ×3 (05:02→22:46)
[2022-06-22] MEDS: FAMOTIDINE 20 MG TABLET GT SCH ×2 (05:02→17:08)
[2022-06-22] MEDS: ARGININE/GLUTAMINE/CALCIUM BMB 1 EACH POWD.PACK GT SCH ×2 (05:02→17:08)
[2022-06-22] MEDS: PROTEIN SUPPLEMENT (PROSTAT) 30 ML LIQUID GT SCH ×3 (05:03→22:46)
[2022-06-22] MEDS: GLUCERNA 1.2 1000ML LIQUID GT PRN (05:03)
[2022-06-22 07:18] VITALS: TEMP 98.5
[2022-06-22] MEDS: FUROSEMIDE 20 MG TABLET GT SCH (08:02)
[2022-06-22] MEDS: DIGOXIN 125 MCG TABLET GT SCH (08:02)
[2022-06-22] MEDS: levETIRAcetam 500 MG/5 ML LIQUID UDC GT SCH ×2 (08:02→20:34)
[2022-06-22] MEDS: ACETAMINOPHEN 650 MG/20.3 ML LIQUID UDC GT SCH ×2 (08:02→20:34)
[2022-06-22] MEDS: COD LIVER OIL/ZINC OXIDE OINT 113 GM TUBE TP SCH ×2 (08:03→20:35)
[2022-06-22] MEDS: MEDIHONEY= THERAHONEY 1.5 OZ TUBE TOP SCH ×2 (08:03→20:34)
[2022-06-22] MEDS: REMEDY ESSENTIAL ZINC PASTE 113 GM TP SCH ×2 (08:03→20:35)
[2022-06-22] MEDS: POTASSIUM CHLORIDE 40 MEQ/30 ML LIQUID UDC GT SCH (08:03)
[2022-06-22] MEDS: CLOTRIMAZOLE 1% CREAM 30 GM TUBE TP SCH ×2 (08:03→20:35)
[2022-06-22] MEDS: HYDROGEN PEROXIDE 3% 118 ML BOTTLE TP SCH ×2 (09:14→19:09)
[2022-06-22] MEDS: ASCORBIC ACID 500 MG TABLET GT SCH (20:34)
[2022-06-22] MEDS: ACIDOPHILUS/BULGARICUS CHEW TAB GT SCH (20:34)
[2022-06-22] MEDS: NORMAL SALINE NASAL 45 ML BOTTLE NS SCH (20:34)
[2022-06-22 20:49] VITALS: TEMP 98.2
[2022-06-23] MEDS: POLYVINYL ALCOHOL OPHT DROPS 15 ML BOTTLE EACHEYE SCH ×3 (05:00→21:29)
[2022-06-23] MEDS: ARGININE/GLUTAMINE/CALCIUM BMB 1 EACH POWD.PACK GT SCH ×2 (05:00→17:00)
[2022-06-23] MEDS: FAMOTIDINE 20 MG TABLET GT SCH ×2 (05:01→17:00)
[2022-06-23] MEDS: PROTEIN SUPPLEMENT (PROSTAT) 30 ML LIQUID GT SCH ×3 (05:01→21:30)
[2022-06-23 07:47] VITALS: TEMP 97.8
[2022-06-23] MEDS: ACETAMINOPHEN 650 MG/20.3 ML LIQUID UDC GT SCH ×2 (08:07→21:29)
[2022-06-23] MEDS: POTASSIUM CHLORIDE 40 MEQ/30 ML LIQUID UDC GT SCH (08:09)
[2022-06-23] MEDS: DIGOXIN 125 MCG TABLET GT SCH (08:09)
[2022-06-23] MEDS: FUROSEMIDE 20 MG TABLET GT SCH (08:09)
[2022-06-23] MEDS: levETIRAcetam 500 MG/5 ML LIQUID UDC GT SCH ×2 (08:09→21:29)
[2022-06-23] MEDS: MEDIHONEY= THERAHONEY 1.5 OZ TUBE TOP SCH ×2 (08:11→21:29)
[2022-06-23] MEDS: COD LIVER OIL/ZINC OXIDE OINT 113 GM TUBE TP SCH ×2 (08:11→21:29)
[2022-06-23] MEDS: CLOTRIMAZOLE 1% CREAM 30 GM TUBE TP SCH ×2 (08:11→21:29)
[2022-06-23] MEDS: REMEDY ESSENTIAL ZINC PASTE 113 GM TP SCH ×2 (08:11→21:29)
[2022-06-23] MEDS: HYDROGEN PEROXIDE 3% 118 ML BOTTLE TP SCH ×2 (09:00→20:53)
[2022-06-23] MEDS: GLUCERNA 1.2 1000ML LIQUID GT PRN (16:47)
[2022-06-23 19:50] VITALS: TEMP 98
[2022-06-23] MEDS: ACIDOPHILUS/BULGARICUS CHEW TAB GT SCH (21:29)
[2022-06-23] MEDS: NORMAL SALINE NASAL 45 ML BOTTLE NS SCH (21:29)
[2022-06-23] MEDS: ASCORBIC ACID 500 MG TABLET GT SCH (21:29)
[2022-06-24] MEDS: ARGININE/GLUTAMINE/CALCIUM BMB 1 EACH POWD.PACK GT SCH ×2 (05:20→17:29)
[2022-06-24] MEDS: POLYVINYL ALCOHOL OPHT DROPS 15 ML BOTTLE EACHEYE SCH ×3 (05:20→21:38)
[2022-06-24] MEDS: FAMOTIDINE 20 MG TABLET GT SCH ×2 (05:21→17:29)
[2022-06-24] MEDS: PROTEIN SUPPLEMENT (PROSTAT) 30 ML LIQUID GT SCH ×3 (05:21→21:38)
[2022-06-24 07:41] VITALS: TEMP 98.1
[2022-06-24] MEDS: ACETAMINOPHEN 650 MG/20.3 ML LIQUID UDC GT SCH ×2 (08:11→20:30)
[2022-06-24] MEDS: DIGOXIN 125 MCG TABLET GT SCH (08:11)
[2022-06-24] MEDS: FUROSEMIDE 20 MG TABLET GT SCH (08:11)
[2022-06-24] MEDS: levETIRAcetam 500 MG/5 ML LIQUID UDC GT SCH ×2 (08:11→21:37)
[2022-06-24] MEDS: MEDIHONEY= THERAHONEY 1.5 OZ TUBE TOP SCH ×2 (08:12→21:38)
[2022-06-24] MEDS: POTASSIUM CHLORIDE 40 MEQ/30 ML LIQUID UDC GT SCH (08:12)
[2022-06-24] MEDS: REMEDY ESSENTIAL ZINC PASTE 113 GM TP SCH ×2 (08:12→21:38)
[2022-06-24] MEDS: COD LIVER OIL/ZINC OXIDE OINT 113 GM TUBE TP SCH ×2 (08:12→21:38)
[2022-06-24] MEDS: CLOTRIMAZOLE 1% CREAM 30 GM TUBE TP SCH ×2 (08:12→21:38)
[2022-06-24] MEDS: HYDROGEN PEROXIDE 3% 118 ML BOTTLE TP SCH ×2 (09:00→21:03)
[2022-06-24 19:47] VITALS: TEMP 98
[2022-06-24] MEDS: ACIDOPHILUS/BULGARICUS CHEW TAB GT SCH (21:00)
[2022-06-24] MEDS: ASCORBIC ACID 500 MG TABLET GT SCH (21:37)
[2022-06-24] MEDS: NORMAL SALINE NASAL 45 ML BOTTLE NS SCH (21:38)
[2022-06-25] MEDS: GLUCERNA 1.2 1000ML LIQUID GT PRN (04:12)
[2022-06-25] MEDS: FAMOTIDINE 20 MG TABLET GT SCH ×2 (05:46→17:01)
[2022-06-25] MEDS: PROTEIN SUPPLEMENT (PROSTAT) 30 ML LIQUID GT SCH ×3 (05:46→22:06)
[2022-06-25] MEDS: POLYVINYL ALCOHOL OPHT DROPS 15 ML BOTTLE EACHEYE SCH ×3 (05:46→22:05)
[2022-06-25] MEDS: ARGININE/GLUTAMINE/CALCIUM BMB 1 EACH POWD.PACK GT SCH ×2 (05:46→17:01)
[2022-06-25 07:28] VITALS: TEMP 98.1
[2022-06-25] MEDS: ACETAMINOPHEN 650 MG/20.3 ML LIQUID UDC GT SCH ×2 (08:08→20:11)
[2022-06-25] MEDS: levETIRAcetam 500 MG/5 ML LIQUID UDC GT SCH ×2 (08:09→20:11)
[2022-06-25] MEDS: DIGOXIN 125 MCG TABLET GT SCH (08:12)
[2022-06-25] MEDS: POTASSIUM CHLORIDE 40 MEQ/30 ML LIQUID UDC GT SCH (08:12)
[2022-06-25] MEDS: FUROSEMIDE 20 MG TABLET GT SCH (08:12)
[2022-06-25] MEDS: MEDIHONEY= THERAHONEY 1.5 OZ TUBE TOP SCH ×2 (08:12→20:12)
[2022-06-25] MEDS: REMEDY ESSENTIAL ZINC PASTE 113 GM TP SCH ×2 (08:13→20:14)
[2022-06-25] MEDS: CLOTRIMAZOLE 1% CREAM 30 GM TUBE TP SCH ×2 (08:13→20:14)
[2022-06-25] MEDS: COD LIVER OIL/ZINC OXIDE OINT 113 GM TUBE TP SCH ×2 (08:13→20:12)
[2022-06-25] MEDS: HYDROGEN PEROXIDE 3% 118 ML BOTTLE TP SCH ×2 (08:33→19:10)
[2022-06-25 20:00] VITALS: TEMP 98.5
[2022-06-25] MEDS: NORMAL SALINE NASAL 45 ML BOTTLE NS SCH (20:11)
[2022-06-25] MEDS: ASCORBIC ACID 500 MG TABLET GT SCH (20:11)
[2022-06-25] MEDS: ACIDOPHILUS/BULGARICUS CHEW TAB GT SCH (20:11)
[2022-06-26] MEDS: FAMOTIDINE 20 MG TABLET GT SCH ×2 (05:33→17:16)
[2022-06-26] MEDS: ARGININE/GLUTAMINE/CALCIUM BMB 1 EACH POWD.PACK GT SCH ×2 (05:33→17:16)
[2022-06-26] MEDS: POLYVINYL ALCOHOL OPHT DROPS 15 ML BOTTLE EACHEYE SCH ×3 (05:33→21:19)
[2022-06-26] MEDS: PROTEIN SUPPLEMENT (PROSTAT) 30 ML LIQUID GT SCH ×3 (05:34→21:20)
[2022-06-26 07:25] VITALS: TEMP 97.6
[2022-06-26] MEDS: HYDROGEN PEROXIDE 3% 118 ML BOTTLE TP SCH ×2 (08:19→21:42)
[2022-06-26] MEDS: ACETAMINOPHEN 650 MG/20.3 ML LIQUID UDC GT SCH ×2 (08:57→21:19)
[2022-06-26] MEDS: POTASSIUM CHLORIDE 40 MEQ/30 ML LIQUID UDC GT SCH (08:57)
[2022-06-26] MEDS: FUROSEMIDE 20 MG TABLET GT SCH (08:57)
[2022-06-26] MEDS: DIGOXIN 125 MCG TABLET GT SCH (08:57)
[2022-06-26] MEDS: levETIRAcetam 500 MG/5 ML LIQUID UDC GT SCH ×2 (08:57→21:19)
[2022-06-26] MEDS: REMEDY ESSENTIAL ZINC PASTE 113 GM TP SCH ×2 (08:58→21:19)
[2022-06-26] MEDS: CLOTRIMAZOLE 1% CREAM 30 GM TUBE TP SCH ×2 (08:58→21:20)
[2022-06-26] MEDS: COD LIVER OIL/ZINC OXIDE OINT 113 GM TUBE TP SCH ×2 (08:58→21:19)
[2022-06-26] MEDS: MEDIHONEY= THERAHONEY 1.5 OZ TUBE TOP SCH ×2 (08:58→21:19)
[2022-06-26 20:00] VITALS: BP 113/68; TEMP 97.6; O2SAT 100
[2022-06-26] MEDS: ASCORBIC ACID 500 MG TABLET GT SCH (21:19)
[2022-06-26] MEDS: NORMAL SALINE NASAL 45 ML BOTTLE NS SCH (21:19)
[2022-06-26] MEDS: ACIDOPHILUS/BULGARICUS CHEW TAB GT SCH (21:19)
[2022-06-27] MEDS: FAMOTIDINE 20 MG TABLET GT SCH ×2 (05:19→17:37)
[2022-06-27] MEDS: PROTEIN SUPPLEMENT (PROSTAT) 30 ML LIQUID GT SCH ×3 (05:19→21:29)
[2022-06-27] MEDS: POLYVINYL ALCOHOL OPHT DROPS 15 ML BOTTLE EACHEYE SCH ×3 (05:19→21:29)
[2022-06-27] MEDS: ARGININE/GLUTAMINE/CALCIUM BMB 1 EACH POWD.PACK GT SCH ×2 (05:19→17:37)
[2022-06-27 07:19] VITALS: TEMP 97.3
[2022-06-27] MEDS: HYDROGEN PEROXIDE 3% 118 ML BOTTLE TP SCH ×2 (08:38→21:00)
[2022-06-27] MEDS: POTASSIUM CHLORIDE 40 MEQ/30 ML LIQUID UDC GT SCH (08:40)
[2022-06-27] MEDS: DIGOXIN 125 MCG TABLET GT SCH (08:40)
[2022-06-27] MEDS: ACETAMINOPHEN 650 MG/20.3 ML LIQUID UDC GT SCH ×2 (08:40→21:28)
[2022-06-27] MEDS: FUROSEMIDE 20 MG TABLET GT SCH (08:40)
[2022-06-27] MEDS: MEDIHONEY= THERAHONEY 1.5 OZ TUBE TOP SCH ×2 (08:40→21:28)
[2022-06-27] MEDS: CLOTRIMAZOLE 1% CREAM 30 GM TUBE TP SCH ×2 (08:41→21:28)
[2022-06-27] MEDS: REMEDY ESSENTIAL ZINC PASTE 113 GM TP SCH ×2 (08:41→21:29)
[2022-06-27] MEDS: COD LIVER OIL/ZINC OXIDE OINT 113 GM TUBE TP SCH ×2 (08:41→21:28)
[2022-06-27] MEDS: levETIRAcetam 500 MG/5 ML LIQUID UDC GT SCH ×2 (09:37→21:28)
[2022-06-27 20:26] VITALS: TEMP 97.5
[2022-06-27] MEDS: ASCORBIC ACID 500 MG TABLET GT SCH (21:28)
[2022-06-27] MEDS: NORMAL SALINE NASAL 45 ML BOTTLE NS SCH (21:28)
[2022-06-27] MEDS: ACIDOPHILUS/BULGARICUS CHEW TAB GT SCH (21:28)
[2022-06-28] MEDS: GLUCERNA 1.2 1000ML LIQUID GT PRN (03:07)
[2022-06-28] MEDS: POLYVINYL ALCOHOL OPHT DROPS 15 ML BOTTLE EACHEYE SCH ×3 (05:34→22:56)
[2022-06-28] MEDS: ARGININE/GLUTAMINE/CALCIUM BMB 1 EACH POWD.PACK GT SCH ×2 (05:34→16:58)
[2022-06-28] MEDS: FAMOTIDINE 20 MG TABLET GT SCH ×2 (05:34→17:00)
[2022-06-28] MEDS: PROTEIN SUPPLEMENT (PROSTAT) 30 ML LIQUID GT SCH ×3 (05:34→22:56)
[2022-06-28 07:26] VITALS: TEMP 97.8
[2022-06-28] MEDS: HYDROGEN PEROXIDE 3% 118 ML BOTTLE TP SCH ×2 (08:05→19:10)
[2022-06-28] MEDS: ACETAMINOPHEN 650 MG/20.3 ML LIQUID UDC GT SCH ×2 (08:30→20:44)
[2022-06-28] MEDS: levETIRAcetam 500 MG/5 ML LIQUID UDC GT SCH ×2 (08:30→20:44)
[2022-06-28] MEDS: DIGOXIN 125 MCG TABLET GT SCH (08:32)
[2022-06-28] MEDS: FUROSEMIDE 20 MG TABLET GT SCH (08:32)
[2022-06-28] MEDS: POTASSIUM CHLORIDE 40 MEQ/30 ML LIQUID UDC GT SCH (08:33)
[2022-06-28] MEDS: CLOTRIMAZOLE 1% CREAM 30 GM TUBE TP SCH ×2 (08:36→20:45)
[2022-06-28] MEDS: COD LIVER OIL/ZINC OXIDE OINT 113 GM TUBE TP SCH ×2 (08:36→20:45)
[2022-06-28] MEDS: MEDIHONEY= THERAHONEY 1.5 OZ TUBE TOP SCH ×2 (08:36→20:44)
[2022-06-28] MEDS: REMEDY ESSENTIAL ZINC PASTE 113 GM TP SCH ×2 (08:37→20:45)
[2022-06-28 19:58] VITALS: TEMP 98.4
[2022-06-28] MEDS: NORMAL SALINE NASAL 45 ML BOTTLE NS SCH (20:44)
[2022-06-28] MEDS: ASCORBIC ACID 500 MG TABLET GT SCH (20:44)
[2022-06-28] MEDS: ACIDOPHILUS/BULGARICUS CHEW TAB GT SCH (20:44)
[2022-06-29] MEDS: POLYVINYL ALCOHOL OPHT DROPS 15 ML BOTTLE EACHEYE SCH ×3 (06:09→21:55)
[2022-06-29] MEDS: ARGININE/GLUTAMINE/CALCIUM BMB 1 EACH POWD.PACK GT SCH ×2 (06:09→17:12)
[2022-06-29] MEDS: FAMOTIDINE 20 MG TABLET GT SCH ×2 (06:10→17:12)
[2022-06-29] MEDS: PROTEIN SUPPLEMENT (PROSTAT) 30 ML LIQUID GT SCH ×3 (06:10→21:55)
[2022-06-29 07:32] VITALS: TEMP 97.2
[2022-06-29] MEDS: HYDROGEN PEROXIDE 3% 118 ML BOTTLE TP SCH ×2 (08:09→20:02)
[2022-06-29] MEDS: ACETAMINOPHEN 650 MG/20.3 ML LIQUID UDC GT SCH ×2 (08:13→20:23)
[2022-06-29] MEDS: levETIRAcetam 500 MG/5 ML LIQUID UDC GT SCH ×2 (08:14→20:24)
[2022-06-29] MEDS: FUROSEMIDE 20 MG TABLET GT SCH (08:15)
[2022-06-29] MEDS: POTASSIUM CHLORIDE 40 MEQ/30 ML LIQUID UDC GT SCH (08:15)
[2022-06-29] MEDS: DIGOXIN 125 MCG TABLET GT SCH (08:15)
[2022-06-29] MEDS: COD LIVER OIL/ZINC OXIDE OINT 113 GM TUBE TP SCH ×2 (09:43→20:26)
[2022-06-29] MEDS: CLOTRIMAZOLE 1% CREAM 30 GM TUBE TP SCH ×2 (09:43→20:26)
[2022-06-29] MEDS: MEDIHONEY= THERAHONEY 1.5 OZ TUBE TOP SCH ×2 (09:43→20:26)
[2022-06-29] MEDS: REMEDY ESSENTIAL ZINC PASTE 113 GM TP SCH ×2 (09:43→20:27)
[2022-06-29] MEDS: GLUCERNA 1.2 1000ML LIQUID GT PRN (17:22)
[2022-06-29 20:00] VITALS: TEMP 98.8
[2022-06-29] MEDS: ACIDOPHILUS/BULGARICUS CHEW TAB GT SCH (20:23)
[2022-06-29] MEDS: ASCORBIC ACID 500 MG TABLET GT SCH (20:26)
[2022-06-29] MEDS: NORMAL SALINE NASAL 45 ML BOTTLE NS SCH (20:26)
[2022-06-30] MEDS: FAMOTIDINE 20 MG TABLET GT SCH ×2 (06:13→17:22)
[2022-06-30] MEDS: POLYVINYL ALCOHOL OPHT DROPS 15 ML BOTTLE EACHEYE SCH ×3 (06:13→22:13)
[2022-06-30] MEDS: ARGININE/GLUTAMINE/CALCIUM BMB 1 EACH POWD.PACK GT SCH ×2 (06:13→17:21)
[2022-06-30] MEDS: PROTEIN SUPPLEMENT (PROSTAT) 30 ML LIQUID GT SCH ×3 (06:14→22:13)
[2022-06-30 07:37] VITALS: TEMP 98.7
[2022-06-30] MEDS: HYDROGEN PEROXIDE 3% 118 ML BOTTLE TP SCH ×2 (08:29→20:30)
[2022-06-30] MEDS: ACETAMINOPHEN 650 MG/20.3 ML LIQUID UDC GT SCH ×2 (08:30→20:54)
[2022-06-30] MEDS: levETIRAcetam 500 MG/5 ML LIQUID UDC GT SCH ×2 (08:31→20:54)
[2022-06-30] MEDS: FUROSEMIDE 20 MG TABLET GT SCH (08:32)
[2022-06-30] MEDS: DIGOXIN 125 MCG TABLET GT SCH (08:32)
[2022-06-30] MEDS: POTASSIUM CHLORIDE 40 MEQ/30 ML LIQUID UDC GT SCH (08:33)
[2022-06-30] MEDS: REMEDY ESSENTIAL ZINC PASTE 113 GM TP SCH ×2 (09:00→20:56)
[2022-06-30] MEDS ORDERED: MEDIHONEY= THERAHONEY 1.5 OZ TUBE TOP PRN (13:00)
[2022-06-30] MEDS ORDERED: COD LIVER OIL/ZINC OXIDE OINT 113 GM TUBE TP PRN (13:00)
[2022-06-30] MEDS ORDERED: CLOTRIMAZOLE 1% CREAM 30 GM TUBE TP PRN (13:00)
[2022-06-30] MEDS: CLOTRIMAZOLE 1% CREAM 30 GM TUBE TP SCH ×2 (13:45→20:56)
[2022-06-30] MEDS: MEDIHONEY= THERAHONEY 1.5 OZ TUBE TOP SCH ×2 (13:45→20:55)
[2022-06-30 20:00] VITALS: TEMP 98.6
[2022-06-30] MEDS: ASCORBIC ACID 500 MG TABLET GT SCH (20:54)
[2022-06-30] MEDS: ACIDOPHILUS/BULGARICUS CHEW TAB GT SCH (20:54)
[2022-06-30] MEDS: COD LIVER OIL/ZINC OXIDE OINT 113 GM TUBE TP SCH (20:55)
[2022-06-30] MEDS: NORMAL SALINE NASAL 45 ML BOTTLE NS SCH (20:55)
[2022-07-01] MEDS: FAMOTIDINE 20 MG TABLET GT SCH ×2 (06:03→17:46)
[2022-07-01] MEDS: POLYVINYL ALCOHOL OPHT DROPS 15 ML BOTTLE EACHEYE SCH ×3 (06:03→22:06)
[2022-07-01] MEDS: ARGININE/GLUTAMINE/CALCIUM BMB 1 EACH POWD.PACK GT SCH ×2 (06:03→17:46)
[2022-07-01] MEDS: PROTEIN SUPPLEMENT (PROSTAT) 30 ML LIQUID GT SCH ×3 (06:03→22:06)
[2022-07-01 07:49] VITALS: TEMP 97.8
[2022-07-01] MEDS: HYDROGEN PEROXIDE 3% 118 ML BOTTLE TP SCH ×2 (08:05→21:11)
[2022-07-01] MEDS: ACETAMINOPHEN 650 MG/20.3 ML LIQUID UDC GT SCH ×2 (08:39→20:37)
[2022-07-01] MEDS: levETIRAcetam 500 MG/5 ML LIQUID UDC GT SCH ×2 (08:41→20:43)
[2022-07-01] MEDS: DIGOXIN 125 MCG TABLET GT SCH (08:42)
[2022-07-01] MEDS: POTASSIUM CHLORIDE 40 MEQ/30 ML LIQUID UDC GT SCH (08:42)
[2022-07-01] MEDS: FUROSEMIDE 20 MG TABLET GT SCH (08:42)
[2022-07-01] MEDS: CLOTRIMAZOLE 1% CREAM 30 GM TUBE TP SCH ×2 (09:00→20:44)
[2022-07-01] MEDS: MEDIHONEY= THERAHONEY 1.5 OZ TUBE TOP SCH ×2 (09:00→20:43)
[2022-07-01] MEDS: COD LIVER OIL/ZINC OXIDE OINT 113 GM TUBE TP SCH ×2 (09:00→20:44)
[2022-07-01] MEDS: REMEDY ESSENTIAL ZINC PASTE 113 GM TP SCH ×2 (09:00→20:44)
[2022-07-01 20:00] VITALS: TEMP 98.4
[2022-07-01] MEDS: ACIDOPHILUS/BULGARICUS CHEW TAB GT SCH (20:42)
[2022-07-01] MEDS: ASCORBIC ACID 500 MG TABLET GT SCH (20:43)
[2022-07-01] MEDS: NORMAL SALINE NASAL 45 ML BOTTLE NS SCH (20:43)
[2022-07-02] MEDS: PROTEIN SUPPLEMENT (PROSTAT) 30 ML LIQUID GT SCH ×3 (05:19→22:06)
[2022-07-02] MEDS: FAMOTIDINE 20 MG TABLET GT SCH ×2 (05:19→17:48)
[2022-07-02] MEDS: POLYVINYL ALCOHOL OPHT DROPS 15 ML BOTTLE EACHEYE SCH ×3 (05:19→22:06)
[2022-07-02] MEDS: ARGININE/GLUTAMINE/CALCIUM BMB 1 EACH POWD.PACK GT SCH ×2 (05:19→17:48)
[2022-07-02 08:02] VITALS: BP 129/65; TEMP 97.2
[2022-07-02] MEDS: levETIRAcetam 500 MG/5 ML LIQUID UDC GT SCH ×2 (08:13→20:42)
[2022-07-02] MEDS: ACETAMINOPHEN 650 MG/20.3 ML LIQUID UDC GT SCH ×2 (08:13→20:40)
[2022-07-02] MEDS: DIGOXIN 125 MCG TABLET GT SCH (08:15)
[2022-07-02] MEDS: FUROSEMIDE 20 MG TABLET GT SCH (08:15)
[2022-07-02] MEDS: POTASSIUM CHLORIDE 40 MEQ/30 ML LIQUID UDC GT SCH (08:15)
[2022-07-02] MEDS: HYDROGEN PEROXIDE 3% 118 ML BOTTLE TP SCH ×2 (08:34→20:53)
[2022-07-02] MEDS: REMEDY ESSENTIAL ZINC PASTE 113 GM TP SCH ×2 (09:00→20:41)
[2022-07-02] MEDS: COD LIVER OIL/ZINC OXIDE OINT 113 GM TUBE TP SCH ×2 (09:00→20:40)
[2022-07-02] MEDS: MEDIHONEY= THERAHONEY 1.5 OZ TUBE TOP SCH ×2 (09:00→20:40)
[2022-07-02] MEDS: CLOTRIMAZOLE 1% CREAM 30 GM TUBE TP SCH ×2 (09:00→20:41)
[2022-07-02] MEDS: GLUCERNA 1.2 1000ML LIQUID GT PRN (19:11)
[2022-07-02 20:20] VITALS: TEMP 98.7
[2022-07-02] MEDS: ACIDOPHILUS/BULGARICUS CHEW TAB GT SCH (20:40)
[2022-07-02] MEDS: NORMAL SALINE NASAL 45 ML BOTTLE NS SCH (20:40)
[2022-07-02] MEDS: ASCORBIC ACID 500 MG TABLET GT SCH (20:42)
[2022-07-03] MEDS: POLYVINYL ALCOHOL OPHT DROPS 15 ML BOTTLE EACHEYE SCH ×3 (06:03→21:32)
[2022-07-03] MEDS: PROTEIN SUPPLEMENT (PROSTAT) 30 ML LIQUID GT SCH ×3 (06:03→21:32)
[2022-07-03] MEDS: FAMOTIDINE 20 MG TABLET GT SCH ×2 (06:03→17:45)
[2022-07-03] MEDS: ARGININE/GLUTAMINE/CALCIUM BMB 1 EACH POWD.PACK GT SCH ×2 (06:03→17:45)
[2022-07-03 07:28] VITALS: TEMP 97.6
[2022-07-03] MEDS: HYDROGEN PEROXIDE 3% 118 ML BOTTLE TP SCH ×2 (07:33→20:18)
[2022-07-03] MEDS: ACETAMINOPHEN 650 MG/20.3 ML LIQUID UDC GT SCH ×2 (09:24→20:30)
[2022-07-03] MEDS: levETIRAcetam 500 MG/5 ML LIQUID UDC GT SCH ×2 (09:24→21:31)
[2022-07-03] MEDS: CLOTRIMAZOLE 1% CREAM 30 GM TUBE TP SCH ×2 (09:25→21:31)
[2022-07-03] MEDS: FUROSEMIDE 20 MG TABLET GT SCH (09:25)
[2022-07-03] MEDS: MEDIHONEY= THERAHONEY 1.5 OZ TUBE TOP SCH ×2 (09:25→21:31)
[2022-07-03] MEDS: REMEDY ESSENTIAL ZINC PASTE 113 GM TP SCH ×2 (09:25→21:32)
[2022-07-03] MEDS: COD LIVER OIL/ZINC OXIDE OINT 113 GM TUBE TP SCH ×2 (09:25→21:31)
[2022-07-03] MEDS: DIGOXIN 125 MCG TABLET GT SCH (09:25)
[2022-07-03] MEDS: POTASSIUM CHLORIDE 40 MEQ/30 ML LIQUID UDC GT SCH (09:25)
[2022-07-03 19:45] VITALS: TEMP 99.1
[2022-07-03 19:47] VITALS: TEMP 97.7
[2022-07-03] MEDS: ASCORBIC ACID 500 MG TABLET GT SCH (21:31)
[2022-07-03] MEDS: ACIDOPHILUS/BULGARICUS CHEW TAB GT SCH (21:31)
[2022-07-03] MEDS: NORMAL SALINE NASAL 45 ML BOTTLE NS SCH (21:31)
[2022-07-03] MEDS: GLUCERNA 1.2 1000ML LIQUID GT PRN (23:13)
[2022-07-04] MEDS: POLYVINYL ALCOHOL OPHT DROPS 15 ML BOTTLE EACHEYE SCH ×3 (05:46→21:25)
[2022-07-04] MEDS: ARGININE/GLUTAMINE/CALCIUM BMB 1 EACH POWD.PACK GT SCH ×2 (05:46→17:42)
[2022-07-04] MEDS: PROTEIN SUPPLEMENT (PROSTAT) 30 ML LIQUID GT SCH ×3 (05:46→21:25)
[2022-07-04] MEDS: FAMOTIDINE 20 MG TABLET GT SCH ×2 (05:46→17:42)
[2022-07-04 06:53] LABS: BASOPHILS % (AUTO) 0.4 % (0.0-2.0); EOSINOPHILS # (AUTO) 0.4 K/uL (0.0-0.7); HEMATOCRIT 37.8 % (31.2-41.9); HEMOGLOBIN 12.2 g/dL (10.9-14.3); LYMPHOCYTES # (AUTO) 1.7 K/uL (0.8-4.8); LYMPHOCYTES % (AUTO) 31.4 % (20.5-51.5); MEAN CORPUSCULAR HEMOGLOBIN 29.4 uug (24.7-32.8); MEAN CORPUSCULAR HGB CONC 32 g/dL (32.3-35.6); MONOCYTES # (AUTO) 0.6 K/uL (0.1-1.30); MONOCYTES % (AUTO) 10.9 % (0.0-11.0); NEUTROPHILS # (AUTO) 2.7 K/uL (1.8-8.9); NEUTROPHILS % (AUTO) 50.3 % (38.5-71.5); PLATELET COUNT (AUTO) 126 K/uL (179-408); RED BLOOD CELL COUNT(AUTO) 4.16 MIL/uL (3.63-4.92); RED CELL DISTRIBUTION WIDTH 17.2 % (12.3-17.7); WHITE BLOOD COUNT (AUTO) 5.5 K/uL (3.8-11.8)
[2022-07-04 07:27] LABS: DIFFERENTIAL COMMENT 1
[2022-07-04 07:30] LABS: CALCIUM 9.6 mg/dL (8.5-10.1); CARBON DIOXIDE 28 mmol/L (21-32); CHLORIDE 107 mmol/L (98-107); CREATININE 0.5 mg/dL (0.6-1.3); GLUCOSE 108 mg/dL (74-106); MAGNESIUM 2.5 mg/dL (1.8-2.4); POTASSIUM 3.8 mmol/L (3.5-5.1); SODIUM SERUM 144 mmol/L (136-145); UREA NITROGEN, BLOOD 40 mg/dL (7-18)
[2022-07-04 08:00] VITALS: TEMP 98.6
[2022-07-04] MEDS: HYDROGEN PEROXIDE 3% 118 ML BOTTLE TP SCH ×2 (08:18→19:20)
[2022-07-04] MEDS: levETIRAcetam 500 MG/5 ML LIQUID UDC GT SCH ×2 (08:51→20:51)
[2022-07-04] MEDS: FUROSEMIDE 20 MG TABLET GT SCH (08:51)
[2022-07-04] MEDS: ACETAMINOPHEN 650 MG/20.3 ML LIQUID UDC GT SCH ×2 (08:51→20:51)
[2022-07-04] MEDS: DIGOXIN 125 MCG TABLET GT SCH (08:51)
[2022-07-04] MEDS: MEDIHONEY= THERAHONEY 1.5 OZ TUBE TOP SCH ×2 (08:51→20:51)
[2022-07-04] MEDS: CLOTRIMAZOLE 1% CREAM 30 GM TUBE TP SCH ×2 (08:51→20:51)
[2022-07-04] MEDS: REMEDY ESSENTIAL ZINC PASTE 113 GM TP SCH ×2 (08:51→20:51)
[2022-07-04] MEDS: COD LIVER OIL/ZINC OXIDE OINT 113 GM TUBE TP SCH ×2 (08:51→20:51)
[2022-07-04] MEDS: POTASSIUM CHLORIDE 40 MEQ/30 ML LIQUID UDC GT SCH (08:51)
[2022-07-04 19:53] VITALS: TEMP 97.5
[2022-07-04] MEDS: NORMAL SALINE NASAL 45 ML BOTTLE NS SCH (20:51)
[2022-07-04] MEDS: ASCORBIC ACID 500 MG TABLET GT SCH (20:51)
[2022-07-04] MEDS: ACIDOPHILUS/BULGARICUS CHEW TAB GT SCH (20:51)
[2022-07-05] MEDS: ACETAMINOPHEN 650 MG/20 ML UDC- SA PATIENTS-PAIN ONLY GT PRN (04:01)
[2022-07-05] MEDS: FAMOTIDINE 20 MG TABLET GT SCH ×2 (05:28→17:37)
[2022-07-05] MEDS: PROTEIN SUPPLEMENT (PROSTAT) 30 ML LIQUID GT SCH ×3 (05:28→22:32)
[2022-07-05] MEDS: POLYVINYL ALCOHOL OPHT DROPS 15 ML BOTTLE EACHEYE SCH ×3 (05:28→22:32)
[2022-07-05] MEDS: ARGININE/GLUTAMINE/CALCIUM BMB 1 EACH POWD.PACK GT SCH ×2 (05:28→17:37)
[2022-07-05 07:17] VITALS: TEMP 97.8
[2022-07-05] MEDS: DIGOXIN 125 MCG TABLET GT SCH (09:10)
[2022-07-05] MEDS: POTASSIUM CHLORIDE 40 MEQ/30 ML LIQUID UDC GT SCH (09:10)
[2022-07-05] MEDS: MEDIHONEY= THERAHONEY 1.5 OZ TUBE TOP SCH ×2 (09:10→20:13)
[2022-07-05] MEDS: COD LIVER OIL/ZINC OXIDE OINT 113 GM TUBE TP SCH ×2 (09:10→20:13)
[2022-07-05] MEDS: ACETAMINOPHEN 650 MG/20.3 ML LIQUID UDC GT SCH ×2 (09:10→20:12)
[2022-07-05] MEDS: levETIRAcetam 500 MG/5 ML LIQUID UDC GT SCH ×2 (09:10→20:12)
[2022-07-05] MEDS: FUROSEMIDE 20 MG TABLET GT SCH (09:10)
[2022-07-05] MEDS: CLOTRIMAZOLE 1% CREAM 30 GM TUBE TP SCH ×2 (09:11→20:13)
[2022-07-05] MEDS: REMEDY ESSENTIAL ZINC PASTE 113 GM TP SCH ×2 (09:11→20:14)
[2022-07-05] MEDS: HYDROGEN PEROXIDE 3% 118 ML BOTTLE TP SCH ×2 (09:12→19:12)
[2022-07-05 19:57] VITALS: TEMP 97.5
[2022-07-05] MEDS: ACIDOPHILUS/BULGARICUS CHEW TAB GT SCH (20:12)
[2022-07-05] MEDS: ASCORBIC ACID 500 MG TABLET GT SCH (20:13)
[2022-07-05] MEDS: NORMAL SALINE NASAL 45 ML BOTTLE NS SCH (20:13)
[2022-07-06] MEDS: POLYVINYL ALCOHOL OPHT DROPS 15 ML BOTTLE EACHEYE SCH ×3 (05:15→21:11)
[2022-07-06] MEDS: PROTEIN SUPPLEMENT (PROSTAT) 30 ML LIQUID GT SCH ×3 (05:15→21:11)
[2022-07-06] MEDS: ARGININE/GLUTAMINE/CALCIUM BMB 1 EACH POWD.PACK GT SCH ×2 (05:15→17:10)
[2022-07-06] MEDS: FAMOTIDINE 20 MG TABLET GT SCH ×2 (05:15→17:11)
[2022-07-06 08:00] VITALS: TEMP 98
[2022-07-06] MEDS: HYDROGEN PEROXIDE 3% 118 ML BOTTLE TP SCH ×2 (08:07→19:15)
[2022-07-06] MEDS: ACETAMINOPHEN 650 MG/20.3 ML LIQUID UDC GT SCH ×2 (08:31→20:27)
[2022-07-06] MEDS: levETIRAcetam 500 MG/5 ML LIQUID UDC GT SCH ×2 (08:31→20:27)
[2022-07-06] MEDS: FUROSEMIDE 20 MG TABLET GT SCH (08:32)
[2022-07-06] MEDS: CLOTRIMAZOLE 1% CREAM 30 GM TUBE TP SCH ×2 (08:32→20:28)
[2022-07-06] MEDS: POTASSIUM CHLORIDE 40 MEQ/30 ML LIQUID UDC GT SCH (08:32)
[2022-07-06] MEDS: COD LIVER OIL/ZINC OXIDE OINT 113 GM TUBE TP SCH ×2 (08:32→20:28)
[2022-07-06] MEDS: DIGOXIN 125 MCG TABLET GT SCH (08:32)
[2022-07-06] MEDS: MEDIHONEY= THERAHONEY 1.5 OZ TUBE TOP SCH ×2 (08:32→20:28)
[2022-07-06] MEDS: REMEDY ESSENTIAL ZINC PASTE 113 GM TP SCH ×2 (08:33→20:28)
[2022-07-06] MEDS: GLUCERNA 1.2 1000ML LIQUID GT PRN (17:11)
[2022-07-06 20:00] VITALS: TEMP 98.1
[2022-07-06] MEDS: ACIDOPHILUS/BULGARICUS CHEW TAB GT SCH (20:27)
[2022-07-06] MEDS: ASCORBIC ACID 500 MG TABLET GT SCH (20:27)
[2022-07-06] MEDS: NORMAL SALINE NASAL 45 ML BOTTLE NS SCH (20:27)
[2022-07-07] MEDS: POLYVINYL ALCOHOL OPHT DROPS 15 ML BOTTLE EACHEYE SCH ×3 (05:13→21:49)
[2022-07-07] MEDS: FAMOTIDINE 20 MG TABLET GT SCH ×2 (05:13→17:05)
[2022-07-07] MEDS: ARGININE/GLUTAMINE/CALCIUM BMB 1 EACH POWD.PACK GT SCH ×2 (05:13→17:05)
[2022-07-07] MEDS: PROTEIN SUPPLEMENT (PROSTAT) 30 ML LIQUID GT SCH ×3 (05:13→21:49)
[2022-07-07] MEDS: HYDROGEN PEROXIDE 3% 118 ML BOTTLE TP SCH ×2 (07:51→19:12)
[2022-07-07 08:00] VITALS: TEMP 97.2
[2022-07-07] MEDS: POTASSIUM CHLORIDE 40 MEQ/30 ML LIQUID UDC GT SCH (08:43)
[2022-07-07] MEDS: ACETAMINOPHEN 650 MG/20.3 ML LIQUID UDC GT SCH ×2 (08:43→20:05)
[2022-07-07] MEDS: DIGOXIN 125 MCG TABLET GT SCH (08:43)
[2022-07-07] MEDS: FUROSEMIDE 20 MG TABLET GT SCH (08:43)
[2022-07-07] MEDS: levETIRAcetam 500 MG/5 ML LIQUID UDC GT SCH ×2 (08:43→20:05)
[2022-07-07] MEDS: REMEDY ESSENTIAL ZINC PASTE 113 GM TP SCH ×2 (08:44→20:06)
[2022-07-07] MEDS: COD LIVER OIL/ZINC OXIDE OINT 113 GM TUBE TP SCH ×2 (08:44→20:06)
[2022-07-07] MEDS: CLOTRIMAZOLE 1% CREAM 30 GM TUBE TP SCH ×2 (08:44→20:06)
[2022-07-07] MEDS: MEDIHONEY= THERAHONEY 1.5 OZ TUBE TOP SCH ×2 (08:44→20:06)
[2022-07-07] MEDS: ACIDOPHILUS/BULGARICUS CHEW TAB GT SCH (20:05)
[2022-07-07] MEDS: ASCORBIC ACID 500 MG TABLET GT SCH (20:05)
[2022-07-07] MEDS: NORMAL SALINE NASAL 45 ML BOTTLE NS SCH (20:06)
[2022-07-07 20:39] VITALS: TEMP 97.3
[2022-07-08] MEDS: GLUCERNA 1.2 1000ML LIQUID GT PRN (03:23)
[2022-07-08] MEDS: PROTEIN SUPPLEMENT (PROSTAT) 30 ML LIQUID GT SCH ×3 (05:14→22:14)
[2022-07-08] MEDS: ARGININE/GLUTAMINE/CALCIUM BMB 1 EACH POWD.PACK GT SCH ×2 (05:14→18:02)
[2022-07-08] MEDS: POLYVINYL ALCOHOL OPHT DROPS 15 ML BOTTLE EACHEYE SCH ×3 (05:14→22:14)
[2022-07-08] MEDS: FAMOTIDINE 20 MG TABLET GT SCH ×2 (05:14→18:02)
[2022-07-08 07:33] VITALS: TEMP 99
[2022-07-08] MEDS: HYDROGEN PEROXIDE 3% 118 ML BOTTLE TP SCH ×2 (08:06→19:00)
[2022-07-08] MEDS: levETIRAcetam 500 MG/5 ML LIQUID UDC GT SCH ×2 (08:29→21:00)
[2022-07-08] MEDS: ACETAMINOPHEN 650 MG/20.3 ML LIQUID UDC GT SCH ×2 (08:29→20:30)
[2022-07-08] MEDS: DIGOXIN 125 MCG TABLET GT SCH (08:32)
[2022-07-08] MEDS: POTASSIUM CHLORIDE 40 MEQ/30 ML LIQUID UDC GT SCH (08:32)
[2022-07-08] MEDS: FUROSEMIDE 20 MG TABLET GT SCH (08:32)
[2022-07-08] MEDS: CLOTRIMAZOLE 1% CREAM 30 GM TUBE TP SCH ×2 (08:33→21:00)
[2022-07-08] MEDS: MEDIHONEY= THERAHONEY 1.5 OZ TUBE TOP SCH ×2 (08:33→21:00)
[2022-07-08] MEDS: COD LIVER OIL/ZINC OXIDE OINT 113 GM TUBE TP SCH ×2 (08:33→21:00)
[2022-07-08] MEDS: REMEDY ESSENTIAL ZINC PASTE 113 GM TP SCH ×2 (08:34→21:00)
[2022-07-08 20:37] VITALS: TEMP 98.6
[2022-07-08] MEDS: ACIDOPHILUS/BULGARICUS CHEW TAB GT SCH (21:00)
[2022-07-08] MEDS: NORMAL SALINE NASAL 45 ML BOTTLE NS SCH (21:00)
[2022-07-08] MEDS: ASCORBIC ACID 500 MG TABLET GT SCH (21:00)
[2022-07-09] MEDS: ACETAMINOPHEN 650 MG/20 ML UDC- SA PATIENTS-PAIN ONLY GT PRN (03:41)
[2022-07-09] MEDS: PROTEIN SUPPLEMENT (PROSTAT) 30 ML LIQUID GT SCH ×3 (05:32→21:51)
[2022-07-09] MEDS: ARGININE/GLUTAMINE/CALCIUM BMB 1 EACH POWD.PACK GT SCH ×2 (05:32→18:11)
[2022-07-09] MEDS: FAMOTIDINE 20 MG TABLET GT SCH ×2 (05:32→18:11)
[2022-07-09] MEDS: POLYVINYL ALCOHOL OPHT DROPS 15 ML BOTTLE EACHEYE SCH ×3 (05:32→21:51)
[2022-07-09 07:45] VITALS: TEMP 97.5
[2022-07-09] MEDS: levETIRAcetam 500 MG/5 ML LIQUID UDC GT SCH ×2 (08:58→21:51)
[2022-07-09] MEDS: ACETAMINOPHEN 650 MG/20.3 ML LIQUID UDC GT SCH ×2 (08:58→20:30)
[2022-07-09] MEDS: HYDROGEN PEROXIDE 3% 118 ML BOTTLE TP SCH ×2 (09:00→19:12)
[2022-07-09] MEDS: POTASSIUM CHLORIDE 40 MEQ/30 ML LIQUID UDC GT SCH (09:02)
[2022-07-09] MEDS: FUROSEMIDE 20 MG TABLET GT SCH (09:02)
[2022-07-09] MEDS: DIGOXIN 125 MCG TABLET GT SCH (09:02)
[2022-07-09] MEDS: MEDIHONEY= THERAHONEY 1.5 OZ TUBE TOP SCH ×2 (09:02→21:51)
[2022-07-09] MEDS: CLOTRIMAZOLE 1% CREAM 30 GM TUBE TP SCH ×2 (09:03→21:51)
[2022-07-09] MEDS: COD LIVER OIL/ZINC OXIDE OINT 113 GM TUBE TP SCH ×2 (09:03→21:51)
[2022-07-09] MEDS: REMEDY ESSENTIAL ZINC PASTE 113 GM TP SCH ×2 (09:03→21:51)
[2022-07-09 18:07] VITALS: O2SAT 99
[2022-07-09 20:18] VITALS: TEMP 98.2
[2022-07-09] MEDS: ASCORBIC ACID 500 MG TABLET GT SCH (21:51)
[2022-07-09] MEDS: ACIDOPHILUS/BULGARICUS CHEW TAB GT SCH (21:51)
[2022-07-09] MEDS: NORMAL SALINE NASAL 45 ML BOTTLE NS SCH (21:51)
[2022-07-10] MEDS: POLYVINYL ALCOHOL OPHT DROPS 15 ML BOTTLE EACHEYE SCH ×3 (05:53→21:04)
[2022-07-10] MEDS: FAMOTIDINE 20 MG TABLET GT SCH ×2 (05:53→18:56)
[2022-07-10] MEDS: PROTEIN SUPPLEMENT (PROSTAT) 30 ML LIQUID GT SCH ×3 (05:53→21:04)
[2022-07-10] MEDS: ARGININE/GLUTAMINE/CALCIUM BMB 1 EACH POWD.PACK GT SCH ×2 (05:53→18:56)
[2022-07-10] MEDS: HYDROGEN PEROXIDE 3% 118 ML BOTTLE TP SCH ×2 (07:41→19:50)
[2022-07-10 07:53] VITALS: TEMP 97.7
[2022-07-10] MEDS: levETIRAcetam 500 MG/5 ML LIQUID UDC GT SCH ×2 (08:40→20:00)
[2022-07-10] MEDS: FUROSEMIDE 20 MG TABLET GT SCH (08:40)
[2022-07-10] MEDS: DIGOXIN 125 MCG TABLET GT SCH (08:40)
[2022-07-10] MEDS: ACETAMINOPHEN 650 MG/20.3 ML LIQUID UDC GT SCH ×2 (08:40→20:00)
[2022-07-10] MEDS: REMEDY ESSENTIAL ZINC PASTE 113 GM TP SCH ×2 (08:41→20:08)
[2022-07-10] MEDS: CLOTRIMAZOLE 1% CREAM 30 GM TUBE TP SCH ×2 (08:41→20:08)
[2022-07-10] MEDS: POTASSIUM CHLORIDE 40 MEQ/30 ML LIQUID UDC GT SCH (08:41)
[2022-07-10] MEDS: MEDIHONEY= THERAHONEY 1.5 OZ TUBE TOP SCH ×2 (08:41→20:01)
[2022-07-10] MEDS: COD LIVER OIL/ZINC OXIDE OINT 113 GM TUBE TP SCH ×2 (08:41→20:01)
[2022-07-10] MEDS: ACIDOPHILUS/BULGARICUS CHEW TAB GT SCH (20:00)
[2022-07-10] MEDS: NORMAL SALINE NASAL 45 ML BOTTLE NS SCH (20:01)
[2022-07-10] MEDS: ASCORBIC ACID 500 MG TABLET GT SCH (20:01)
[2022-07-10 20:28] VITALS: TEMP 98.5
[2022-07-11] MEDS: POLYVINYL ALCOHOL OPHT DROPS 15 ML BOTTLE EACHEYE SCH ×3 (05:24→22:03)
[2022-07-11] MEDS: ARGININE/GLUTAMINE/CALCIUM BMB 1 EACH POWD.PACK GT SCH ×2 (05:24→18:09)
[2022-07-11] MEDS: PROTEIN SUPPLEMENT (PROSTAT) 30 ML LIQUID GT SCH ×3 (05:25→22:03)
[2022-07-11] MEDS: FAMOTIDINE 20 MG TABLET GT SCH ×2 (05:25→18:09)
[2022-07-11 07:30] LABS: BASOPHILS % (AUTO) 0.8 % (0.0-2.0); EOSINOPHILS # (AUTO) 0.3 K/uL (0.0-0.7); EOSINOPHILS % (AUTO) 6.6 % (0.0-7.0); HEMATOCRIT 37.9 % (31.2-41.9); HEMOGLOBIN 12.5 g/dL (10.9-14.3); LYMPHOCYTES # (AUTO) 1.6 K/uL (0.8-4.8); LYMPHOCYTES % (AUTO) 36.8 % (20.5-51.5); MEAN CORPUSCULAR HEMOGLOBIN 29.8 uug (24.7-32.8); MEAN CORPUSCULAR HGB CONC 33 g/dL (32.3-35.6); MEAN CORPUSCULAR VOLUME 90.8 fL (75.5-95.3); MONOCYTES # (AUTO) 0.5 K/uL (0.1-1.30); MONOCYTES % (AUTO) 11.9 % (0.0-11.0); NEUTROPHILS # (AUTO) 1.9 K/uL (1.8-8.9); NEUTROPHILS % (AUTO) 43.9 % (38.5-71.5); PLATELET COUNT (AUTO) 135 K/uL (179-408); RED BLOOD CELL COUNT(AUTO) 4.18 MIL/uL (3.63-4.92); RED CELL DISTRIBUTION WIDTH 16.8 % (12.3-17.7); WHITE BLOOD COUNT (AUTO) 4.3 K/uL (3.8-11.8)
[2022-07-11 07:49] LABS: CALCIUM 9.3 mg/dL (8.5-10.1); CARBON DIOXIDE 29 mmol/L (21-32); CHLORIDE 109 mmol/L (98-107); CREATININE 0.5 mg/dL (0.6-1.3); GLUCOSE 109 mg/dL (74-106); MAGNESIUM 2.4 mg/dL (1.8-2.4); PHOSPHOROUS 3.6 mg/dL (2.5-4.9); POTASSIUM 3.6 mmol/L (3.5-5.1); SODIUM SERUM 144 mmol/L (136-145); UREA NITROGEN, BLOOD 39 mg/dL (7-18)
[2022-07-11 07:54] VITALS: TEMP 98.1
[2022-07-11] MEDS: ACETAMINOPHEN 650 MG/20.3 ML LIQUID UDC GT SCH ×2 (08:30→20:42)
[2022-07-11 08:49] LABS: DIFFERENTIAL COMMENT 1
[2022-07-11] MEDS: HYDROGEN PEROXIDE 3% 118 ML BOTTLE TP SCH ×2 (09:19→21:17)
[2022-07-11] MEDS: levETIRAcetam 500 MG/5 ML LIQUID UDC GT SCH ×2 (09:55→20:46)
[2022-07-11] MEDS: DIGOXIN 125 MCG TABLET GT SCH (09:55)
[2022-07-11] MEDS: FUROSEMIDE 20 MG TABLET GT SCH (09:55)
[2022-07-11] MEDS: POTASSIUM CHLORIDE 40 MEQ/30 ML LIQUID UDC GT SCH (09:55)
[2022-07-11] MEDS: CLOTRIMAZOLE 1% CREAM 30 GM TUBE TP SCH ×2 (09:56→20:48)
[2022-07-11] MEDS: REMEDY ESSENTIAL ZINC PASTE 113 GM TP SCH ×2 (09:56→20:48)
[2022-07-11] MEDS: MEDIHONEY= THERAHONEY 1.5 OZ TUBE TOP SCH ×2 (09:56→20:48)
[2022-07-11] MEDS: COD LIVER OIL/ZINC OXIDE OINT 113 GM TUBE TP SCH ×2 (09:56→20:48)
[2022-07-11] MEDS ORDERED: POTASSIUM CHLORIDE 40 MEQ/30 ML LIQUID UDC GT ONE (16:30)
[2022-07-11 20:04] VITALS: TEMP 97.8
[2022-07-11] MEDS: ACIDOPHILUS/BULGARICUS CHEW TAB GT SCH (20:45)
[2022-07-11] MEDS: NORMAL SALINE NASAL 45 ML BOTTLE NS SCH (20:47)
[2022-07-11] MEDS: ASCORBIC ACID 500 MG TABLET GT SCH (20:47)
[2022-07-12] MEDS: FAMOTIDINE 20 MG TABLET GT SCH ×2 (05:40→17:44)
[2022-07-12] MEDS: POLYVINYL ALCOHOL OPHT DROPS 15 ML BOTTLE EACHEYE SCH ×3 (05:40→21:29)
[2022-07-12] MEDS: ARGININE/GLUTAMINE/CALCIUM BMB 1 EACH POWD.PACK GT SCH ×2 (05:40→17:44)
[2022-07-12] MEDS: PROTEIN SUPPLEMENT (PROSTAT) 30 ML LIQUID GT SCH ×3 (05:40→21:29)
[2022-07-12] MEDS: HYDROGEN PEROXIDE 3% 118 ML BOTTLE TP SCH ×2 (07:19→21:08)
[2022-07-12 09:14] VITALS: TEMP 97.6
[2022-07-12] MEDS: levETIRAcetam 500 MG/5 ML LIQUID UDC GT SCH ×2 (09:17→21:27)
[2022-07-12] MEDS: ACETAMINOPHEN 650 MG/20.3 ML LIQUID UDC GT SCH ×2 (09:17→21:27)
[2022-07-12] MEDS: FUROSEMIDE 20 MG TABLET GT SCH (09:18)
[2022-07-12] MEDS: POTASSIUM CHLORIDE 40 MEQ/30 ML LIQUID UDC GT SCH (09:18)
[2022-07-12] MEDS: DIGOXIN 125 MCG TABLET GT SCH (09:18)
[2022-07-12] MEDS: CLOTRIMAZOLE 1% CREAM 30 GM TUBE TP SCH ×2 (09:19→21:28)
[2022-07-12] MEDS: COD LIVER OIL/ZINC OXIDE OINT 113 GM TUBE TP SCH ×2 (09:19→21:28)
[2022-07-12] MEDS: MEDIHONEY= THERAHONEY 1.5 OZ TUBE TOP SCH ×2 (09:19→21:28)
[2022-07-12] MEDS: REMEDY ESSENTIAL ZINC PASTE 113 GM TP SCH ×2 (09:19→21:29)
[2022-07-12 19:56] VITALS: TEMP 98.1
[2022-07-12] MEDS: ACIDOPHILUS/BULGARICUS CHEW TAB GT SCH (21:27)
[2022-07-12] MEDS: ASCORBIC ACID 500 MG TABLET GT SCH (21:28)
[2022-07-12] MEDS: NORMAL SALINE NASAL 45 ML BOTTLE NS SCH (21:28)
[2022-07-13] MEDS: POLYVINYL ALCOHOL OPHT DROPS 15 ML BOTTLE EACHEYE SCH ×3 (05:23→22:18)
[2022-07-13] MEDS: ARGININE/GLUTAMINE/CALCIUM BMB 1 EACH POWD.PACK GT SCH ×2 (05:23→18:12)
[2022-07-13] MEDS: PROTEIN SUPPLEMENT (PROSTAT) 30 ML LIQUID GT SCH ×3 (05:23→22:18)
[2022-07-13] MEDS: FAMOTIDINE 20 MG TABLET GT SCH ×2 (05:23→18:12)
[2022-07-13 07:37] VITALS: TEMP 98
[2022-07-13] MEDS: HYDROGEN PEROXIDE 3% 118 ML BOTTLE TP SCH ×2 (07:43→19:06)
[2022-07-13] MEDS: ACETAMINOPHEN 650 MG/20.3 ML LIQUID UDC GT SCH ×2 (09:01→20:30)
[2022-07-13] MEDS: FUROSEMIDE 20 MG TABLET GT SCH (09:10)
[2022-07-13] MEDS: levETIRAcetam 500 MG/5 ML LIQUID UDC GT SCH ×2 (09:10→21:00)
[2022-07-13] MEDS: DIGOXIN 125 MCG TABLET GT SCH (09:10)
[2022-07-13] MEDS: POTASSIUM CHLORIDE 40 MEQ/30 ML LIQUID UDC GT SCH (09:12)
[2022-07-13] MEDS: CLOTRIMAZOLE 1% CREAM 30 GM TUBE TP SCH ×2 (10:00→21:00)
[2022-07-13] MEDS: REMEDY ESSENTIAL ZINC PASTE 113 GM TP SCH ×2 (10:00→21:00)
[2022-07-13] MEDS: COD LIVER OIL/ZINC OXIDE OINT 113 GM TUBE TP SCH ×2 (10:00→21:00)
[2022-07-13] MEDS: MEDIHONEY= THERAHONEY 1.5 OZ TUBE TOP SCH ×2 (10:00→21:00)
[2022-07-13 20:30] VITALS: TEMP 98.2
[2022-07-13] MEDS: ASCORBIC ACID 500 MG TABLET GT SCH (21:00)
[2022-07-13] MEDS: NORMAL SALINE NASAL 45 ML BOTTLE NS SCH (21:00)
[2022-07-13] MEDS: ACIDOPHILUS/BULGARICUS CHEW TAB GT SCH (21:00)
[2022-07-14] MEDS: PROTEIN SUPPLEMENT (PROSTAT) 30 ML LIQUID GT SCH ×3 (05:55→21:42)
[2022-07-14] MEDS: FAMOTIDINE 20 MG TABLET GT SCH ×2 (05:55→17:11)
[2022-07-14] MEDS: GLUCERNA 1.2 1000ML LIQUID GT PRN (05:55)
[2022-07-14] MEDS: ARGININE/GLUTAMINE/CALCIUM BMB 1 EACH POWD.PACK GT SCH ×2 (05:55→17:11)
[2022-07-14] MEDS: POLYVINYL ALCOHOL OPHT DROPS 15 ML BOTTLE EACHEYE SCH ×3 (05:55→21:42)
[2022-07-14] MEDS: HYDROGEN PEROXIDE 3% 118 ML BOTTLE TP SCH ×2 (08:00→21:27)
[2022-07-14] MEDS: FUROSEMIDE 20 MG TABLET GT SCH (08:00)
[2022-07-14] MEDS: ACETAMINOPHEN 650 MG/20.3 ML LIQUID UDC GT SCH ×2 (08:00→20:30)
[2022-07-14] MEDS: DIGOXIN 125 MCG TABLET GT SCH (08:00)
[2022-07-14] MEDS: levETIRAcetam 500 MG/5 ML LIQUID UDC GT SCH ×2 (08:00→21:40)
[2022-07-14] MEDS: POTASSIUM CHLORIDE 40 MEQ/30 ML LIQUID UDC GT SCH (08:00)
[2022-07-14] MEDS: CLOTRIMAZOLE 1% CREAM 30 GM TUBE TP SCH ×2 (09:35→21:42)
[2022-07-14] MEDS: REMEDY ESSENTIAL ZINC PASTE 113 GM TP SCH ×2 (09:35→21:42)
[2022-07-14] MEDS: COD LIVER OIL/ZINC OXIDE OINT 113 GM TUBE TP SCH ×2 (09:35→21:42)
[2022-07-14] MEDS: MEDIHONEY= THERAHONEY 1.5 OZ TUBE TOP SCH ×2 (09:35→21:42)
[2022-07-14 20:00] VITALS: TEMP 98.8
[2022-07-14] MEDS: ACIDOPHILUS/BULGARICUS CHEW TAB GT SCH (21:40)
[2022-07-14] MEDS: ASCORBIC ACID 500 MG TABLET GT SCH (21:41)
[2022-07-14] MEDS: NORMAL SALINE NASAL 45 ML BOTTLE NS SCH (21:42)
[2022-07-15] MEDS: POLYVINYL ALCOHOL OPHT DROPS 15 ML BOTTLE EACHEYE SCH ×3 (05:51→22:18)
[2022-07-15] MEDS: PROTEIN SUPPLEMENT (PROSTAT) 30 ML LIQUID GT SCH ×3 (05:51→22:18)
[2022-07-15] MEDS: ARGININE/GLUTAMINE/CALCIUM BMB 1 EACH POWD.PACK GT SCH ×2 (05:51→17:17)
[2022-07-15] MEDS: FAMOTIDINE 20 MG TABLET GT SCH ×2 (05:51→17:17)
[2022-07-15 07:28] VITALS: TEMP 97.5
[2022-07-15] MEDS: ACETAMINOPHEN 650 MG/20.3 ML LIQUID UDC GT SCH ×2 (08:08→20:13)
[2022-07-15] MEDS: levETIRAcetam 500 MG/5 ML LIQUID UDC GT SCH ×2 (08:08→20:13)
[2022-07-15] MEDS: DIGOXIN 125 MCG TABLET GT SCH (08:09)
[2022-07-15] MEDS: FUROSEMIDE 20 MG TABLET GT SCH (08:09)
[2022-07-15] MEDS: POTASSIUM CHLORIDE 40 MEQ/30 ML LIQUID UDC GT SCH (08:09)
[2022-07-15] MEDS: CLOTRIMAZOLE 1% CREAM 30 GM TUBE TP SCH ×2 (08:10→20:14)
[2022-07-15] MEDS: COD LIVER OIL/ZINC OXIDE OINT 113 GM TUBE TP SCH ×2 (08:10→20:13)
[2022-07-15] MEDS: MEDIHONEY= THERAHONEY 1.5 OZ TUBE TOP SCH ×2 (08:10→20:13)
[2022-07-15] MEDS: REMEDY ESSENTIAL ZINC PASTE 113 GM TP SCH ×2 (08:10→20:14)
[2022-07-15] MEDS: HYDROGEN PEROXIDE 3% 118 ML BOTTLE TP SCH ×2 (08:29→18:07)
[2022-07-15] MEDS: GLUCERNA 1.2 1000ML LIQUID GT PRN (11:37)
[2022-07-15 20:00] VITALS: TEMP 98.4
[2022-07-15] MEDS: ACIDOPHILUS/BULGARICUS CHEW TAB GT SCH (20:13)
[2022-07-15] MEDS: ASCORBIC ACID 500 MG TABLET GT SCH (20:13)
[2022-07-15] MEDS: NORMAL SALINE NASAL 45 ML BOTTLE NS SCH (20:13)
[2022-07-16] MEDS: POLYVINYL ALCOHOL OPHT DROPS 15 ML BOTTLE EACHEYE SCH ×3 (06:06→22:00)
[2022-07-16] MEDS: FAMOTIDINE 20 MG TABLET GT SCH ×2 (06:06→18:00)
[2022-07-16] MEDS: PROTEIN SUPPLEMENT (PROSTAT) 30 ML LIQUID GT SCH ×3 (06:06→22:00)
[2022-07-16] MEDS: ARGININE/GLUTAMINE/CALCIUM BMB 1 EACH POWD.PACK GT SCH ×2 (06:06→18:00)
[2022-07-16 07:47] VITALS: TEMP 97.2
[2022-07-16] MEDS: ACETAMINOPHEN 650 MG/20.3 ML LIQUID UDC GT SCH ×2 (08:30→20:38)
[2022-07-16] MEDS: COD LIVER OIL/ZINC OXIDE OINT 113 GM TUBE TP SCH ×2 (09:00→20:42)
[2022-07-16] MEDS: REMEDY ESSENTIAL ZINC PASTE 113 GM TP SCH ×2 (09:00→20:42)
[2022-07-16] MEDS: MEDIHONEY= THERAHONEY 1.5 OZ TUBE TOP SCH ×2 (09:00→20:42)
[2022-07-16] MEDS: CLOTRIMAZOLE 1% CREAM 30 GM TUBE TP SCH ×2 (09:00→20:42)
[2022-07-16] MEDS: HYDROGEN PEROXIDE 3% 118 ML BOTTLE TP SCH ×2 (09:00→20:59)
[2022-07-16] MEDS: levETIRAcetam 500 MG/5 ML LIQUID UDC GT SCH ×2 (09:51→20:42)
[2022-07-16] MEDS: FUROSEMIDE 20 MG TABLET GT SCH (09:52)
[2022-07-16] MEDS: DIGOXIN 125 MCG TABLET GT SCH (09:52)
[2022-07-16] MEDS: POTASSIUM CHLORIDE 40 MEQ/30 ML LIQUID UDC GT SCH (09:53)
[2022-07-16] MEDS: GLUCERNA 1.2 1000ML LIQUID GT PRN (19:08)
[2022-07-16 20:00] VITALS: TEMP 98
[2022-07-16] MEDS: ACIDOPHILUS/BULGARICUS CHEW TAB GT SCH (20:38)
[2022-07-16] MEDS: ASCORBIC ACID 500 MG TABLET GT SCH (20:42)
[2022-07-16] MEDS: NORMAL SALINE NASAL 45 ML BOTTLE NS SCH (20:42)
[2022-07-17] MEDS: POLYVINYL ALCOHOL OPHT DROPS 15 ML BOTTLE EACHEYE SCH ×3 (05:21→22:15)
[2022-07-17] MEDS: FAMOTIDINE 20 MG TABLET GT SCH ×2 (05:21→18:00)
[2022-07-17] MEDS: ARGININE/GLUTAMINE/CALCIUM BMB 1 EACH POWD.PACK GT SCH ×2 (05:21→18:00)
[2022-07-17] MEDS: PROTEIN SUPPLEMENT (PROSTAT) 30 ML LIQUID GT SCH ×3 (05:21→22:15)
[2022-07-17] MEDS: HYDROGEN PEROXIDE 3% 118 ML BOTTLE TP SCH ×2 (06:13→20:50)
[2022-07-17 08:00] VITALS: TEMP 97.6
[2022-07-17] MEDS: ACETAMINOPHEN 650 MG/20.3 ML LIQUID UDC GT SCH ×2 (08:30→20:52)
[2022-07-17] MEDS: levETIRAcetam 500 MG/5 ML LIQUID UDC GT SCH ×2 (09:00→21:00)
[2022-07-17] MEDS: POTASSIUM CHLORIDE 40 MEQ/30 ML LIQUID UDC GT SCH (09:00)
[2022-07-17] MEDS: FUROSEMIDE 20 MG TABLET GT SCH (09:00)
[2022-07-17] MEDS: COD LIVER OIL/ZINC OXIDE OINT 113 GM TUBE TP SCH ×2 (09:00→21:00)
[2022-07-17] MEDS: REMEDY ESSENTIAL ZINC PASTE 113 GM TP SCH ×2 (09:00→21:00)
[2022-07-17] MEDS: MEDIHONEY= THERAHONEY 1.5 OZ TUBE TOP SCH ×2 (09:00→21:00)
[2022-07-17] MEDS: DIGOXIN 125 MCG TABLET GT SCH (09:00)
[2022-07-17] MEDS: CLOTRIMAZOLE 1% CREAM 30 GM TUBE TP SCH ×2 (09:00→21:00)
[2022-07-17 20:00] VITALS: TEMP 97.4
[2022-07-17 20:34] VITALS: TEMP 98.8
[2022-07-17] MEDS: ASCORBIC ACID 500 MG TABLET GT SCH (21:00)
[2022-07-17] MEDS: NORMAL SALINE NASAL 45 ML BOTTLE NS SCH (21:00)
[2022-07-17] MEDS: ACIDOPHILUS/BULGARICUS CHEW TAB GT SCH (21:00)
[2022-07-18] MEDS: POLYVINYL ALCOHOL OPHT DROPS 15 ML BOTTLE EACHEYE SCH ×3 (06:04→22:22)
[2022-07-18] MEDS: PROTEIN SUPPLEMENT (PROSTAT) 30 ML LIQUID GT SCH ×3 (06:04→22:22)
[2022-07-18] MEDS: ARGININE/GLUTAMINE/CALCIUM BMB 1 EACH POWD.PACK GT SCH ×2 (06:04→18:07)
[2022-07-18] MEDS: FAMOTIDINE 20 MG TABLET GT SCH ×2 (06:04→18:07)
[2022-07-18 08:00] VITALS: TEMP 98.7
[2022-07-18] MEDS: ACETAMINOPHEN 650 MG/20.3 ML LIQUID UDC GT SCH ×2 (08:30→20:48)
[2022-07-18] MEDS: POTASSIUM CHLORIDE 40 MEQ/30 ML LIQUID UDC GT SCH (09:00)
[2022-07-18] MEDS: levETIRAcetam 500 MG/5 ML LIQUID UDC GT SCH ×2 (09:00→20:42)
[2022-07-18] MEDS: DIGOXIN 125 MCG TABLET GT SCH (09:00)
[2022-07-18] MEDS: FUROSEMIDE 20 MG TABLET GT SCH (09:00)
[2022-07-18] MEDS: MEDIHONEY= THERAHONEY 1.5 OZ TUBE TOP SCH ×2 (09:00→20:43)
[2022-07-18] MEDS: REMEDY ESSENTIAL ZINC PASTE 113 GM TP SCH ×2 (09:00→20:44)
[2022-07-18] MEDS: COD LIVER OIL/ZINC OXIDE OINT 113 GM TUBE TP SCH ×2 (09:00→20:43)
[2022-07-18] MEDS: CLOTRIMAZOLE 1% CREAM 30 GM TUBE TP SCH ×2 (09:00→20:44)
[2022-07-18] MEDS: HYDROGEN PEROXIDE 3% 118 ML BOTTLE TP SCH ×2 (09:46→19:28)
[2022-07-18 20:00] VITALS: TEMP 98.4
[2022-07-18] MEDS: ACIDOPHILUS/BULGARICUS CHEW TAB GT SCH (20:41)
[2022-07-18] MEDS: ASCORBIC ACID 500 MG TABLET GT SCH (20:42)
[2022-07-18] MEDS: NORMAL SALINE NASAL 45 ML BOTTLE NS SCH (20:43)
[2022-07-19] MEDS: POLYVINYL ALCOHOL OPHT DROPS 15 ML BOTTLE EACHEYE SCH ×3 (05:40→21:17)
[2022-07-19] MEDS: FAMOTIDINE 20 MG TABLET GT SCH ×2 (05:41→17:19)
[2022-07-19] MEDS: PROTEIN SUPPLEMENT (PROSTAT) 30 ML LIQUID GT SCH ×3 (05:41→21:17)
[2022-07-19] MEDS: ARGININE/GLUTAMINE/CALCIUM BMB 1 EACH POWD.PACK GT SCH ×2 (05:41→17:19)
[2022-07-19 08:00] VITALS: TEMP 97.7
[2022-07-19] MEDS: HYDROGEN PEROXIDE 3% 118 ML BOTTLE TP SCH ×2 (08:04→20:39)
[2022-07-19] MEDS: ACETAMINOPHEN 650 MG/20.3 ML LIQUID UDC GT SCH ×2 (08:21→21:16)
[2022-07-19] MEDS: POTASSIUM CHLORIDE 40 MEQ/30 ML LIQUID UDC GT SCH (08:23)
[2022-07-19] MEDS: levETIRAcetam 500 MG/5 ML LIQUID UDC GT SCH ×2 (08:23→21:16)
[2022-07-19] MEDS: FUROSEMIDE 20 MG TABLET GT SCH (08:23)
[2022-07-19] MEDS: DIGOXIN 125 MCG TABLET GT SCH (08:23)
[2022-07-19] MEDS: MEDIHONEY= THERAHONEY 1.5 OZ TUBE TOP SCH ×2 (08:24→21:17)
[2022-07-19] MEDS: COD LIVER OIL/ZINC OXIDE OINT 113 GM TUBE TP SCH ×2 (08:24→21:17)
[2022-07-19] MEDS: CLOTRIMAZOLE 1% CREAM 30 GM TUBE TP SCH ×2 (08:24→21:17)
[2022-07-19] MEDS: REMEDY ESSENTIAL ZINC PASTE 113 GM TP SCH ×2 (08:25→21:17)
[2022-07-19] MEDS: GLUCERNA 1.2 1000ML LIQUID GT PRN (10:54)
[2022-07-19 20:00] VITALS: TEMP 98.5
[2022-07-19] MEDS: ACIDOPHILUS/BULGARICUS CHEW TAB GT SCH (21:16)
[2022-07-19] MEDS: ASCORBIC ACID 500 MG TABLET GT SCH (21:16)
[2022-07-19] MEDS: NORMAL SALINE NASAL 45 ML BOTTLE NS SCH (21:16)
[2022-07-20] MEDS: ARGININE/GLUTAMINE/CALCIUM BMB 1 EACH POWD.PACK GT SCH ×2 (05:59→17:34)
[2022-07-20] MEDS: FAMOTIDINE 20 MG TABLET GT SCH ×2 (05:59→17:35)
[2022-07-20] MEDS: POLYVINYL ALCOHOL OPHT DROPS 15 ML BOTTLE EACHEYE SCH ×3 (05:59→21:23)
[2022-07-20] MEDS: PROTEIN SUPPLEMENT (PROSTAT) 30 ML LIQUID GT SCH ×3 (05:59→21:23)
[2022-07-20 07:27] VITALS: TEMP 97.2
[2022-07-20] MEDS: ACETAMINOPHEN 650 MG/20.3 ML LIQUID UDC GT SCH ×2 (08:01→21:20)
[2022-07-20] MEDS: HYDROGEN PEROXIDE 3% 118 ML BOTTLE TP SCH ×2 (08:02→19:04)
[2022-07-20] MEDS: levETIRAcetam 500 MG/5 ML LIQUID UDC GT SCH ×2 (08:05→21:22)
[2022-07-20] MEDS: DIGOXIN 125 MCG TABLET GT SCH (08:09)
[2022-07-20] MEDS: FUROSEMIDE 20 MG TABLET GT SCH (08:09)
[2022-07-20] MEDS: POTASSIUM CHLORIDE 40 MEQ/30 ML LIQUID UDC GT SCH (08:11)
[2022-07-20] MEDS: REMEDY ESSENTIAL ZINC PASTE 113 GM TP SCH ×2 (08:12→21:23)
[2022-07-20] MEDS: CLOTRIMAZOLE 1% CREAM 30 GM TUBE TP SCH ×2 (08:13→21:23)
[2022-07-20] MEDS: COD LIVER OIL/ZINC OXIDE OINT 113 GM TUBE TP SCH ×2 (08:14→21:22)
[2022-07-20] MEDS: MEDIHONEY= THERAHONEY 1.5 OZ TUBE TOP SCH ×2 (08:14→21:22)
[2022-07-20] MEDS: GLUCERNA 1.2 1000ML LIQUID GT PRN (18:17)
[2022-07-20 20:00] VITALS: TEMP 98.3
[2022-07-20] MEDS: ACIDOPHILUS/BULGARICUS CHEW TAB GT SCH (21:22)
[2022-07-20] MEDS: NORMAL SALINE NASAL 45 ML BOTTLE NS SCH (21:22)
[2022-07-20] MEDS: ASCORBIC ACID 500 MG TABLET GT SCH (21:22)
[2022-07-21] MEDS: PROTEIN SUPPLEMENT (PROSTAT) 30 ML LIQUID GT SCH ×3 (05:10→21:59)
[2022-07-21] MEDS: POLYVINYL ALCOHOL OPHT DROPS 15 ML BOTTLE EACHEYE SCH ×3 (05:10→21:58)
[2022-07-21] MEDS: ARGININE/GLUTAMINE/CALCIUM BMB 1 EACH POWD.PACK GT SCH ×2 (05:10→17:28)
[2022-07-21] MEDS: FAMOTIDINE 20 MG TABLET GT SCH ×2 (05:10→17:28)
[2022-07-21] MEDS: HYDROGEN PEROXIDE 3% 118 ML BOTTLE TP SCH ×2 (07:53→19:10)
[2022-07-21 08:01] VITALS: TEMP 97.3
[2022-07-21] MEDS: ACETAMINOPHEN 650 MG/20.3 ML LIQUID UDC GT SCH ×2 (09:15→21:58)
[2022-07-21] MEDS: levETIRAcetam 500 MG/5 ML LIQUID UDC GT SCH ×2 (09:15→21:58)
[2022-07-21] MEDS: DIGOXIN 125 MCG TABLET GT SCH (09:16)
[2022-07-21] MEDS: COD LIVER OIL/ZINC OXIDE OINT 113 GM TUBE TP SCH (09:16)
[2022-07-21] MEDS: POTASSIUM CHLORIDE 40 MEQ/30 ML LIQUID UDC GT SCH (09:16)
[2022-07-21] MEDS: REMEDY ESSENTIAL ZINC PASTE 113 GM TP SCH ×2 (09:16→21:58)
[2022-07-21] MEDS: FUROSEMIDE 20 MG TABLET GT SCH (09:16)
[2022-07-21 20:00] VITALS: TEMP 98
[2022-07-21] MEDS: ACIDOPHILUS/BULGARICUS CHEW TAB GT SCH (21:57)
[2022-07-21] MEDS: ASCORBIC ACID 500 MG TABLET GT SCH (21:58)
[2022-07-21] MEDS: NORMAL SALINE NASAL 45 ML BOTTLE NS SCH (21:58)
[2022-07-22] MEDS: PROTEIN SUPPLEMENT (PROSTAT) 30 ML LIQUID GT SCH ×3 (05:56→21:04)
[2022-07-22] MEDS: ARGININE/GLUTAMINE/CALCIUM BMB 1 EACH POWD.PACK GT SCH ×2 (05:56→17:30)
[2022-07-22] MEDS: POLYVINYL ALCOHOL OPHT DROPS 15 ML BOTTLE EACHEYE SCH ×3 (05:56→21:04)
[2022-07-22] MEDS: FAMOTIDINE 20 MG TABLET GT SCH ×2 (05:56→17:30)
[2022-07-22] MEDS: HYDROGEN PEROXIDE 3% 118 ML BOTTLE TP SCH ×2 (06:56→19:16)
[2022-07-22 08:01] VITALS: TEMP 97.7
[2022-07-22] MEDS: FUROSEMIDE 20 MG TABLET GT SCH (08:49)
[2022-07-22] MEDS: DIGOXIN 125 MCG TABLET GT SCH (08:49)
[2022-07-22] MEDS: POTASSIUM CHLORIDE 40 MEQ/30 ML LIQUID UDC GT SCH (08:50)
[2022-07-22] MEDS: REMEDY ESSENTIAL ZINC PASTE 113 GM TP SCH ×2 (08:51→21:03)
[2022-07-22] MEDS: levETIRAcetam 500 MG/5 ML LIQUID UDC GT SCH ×2 (08:52→21:01)
[2022-07-22] MEDS: ACETAMINOPHEN 650 MG/20.3 ML LIQUID UDC GT SCH ×2 (08:53→21:01)
[2022-07-22] MEDS ORDERED: COD LIVER OIL/ZINC OXIDE OINT 113 GM TUBE TP PRN (14:30)
[2022-07-22] MEDS ORDERED: CLOTRIMAZOLE 1% CREAM 30 GM TUBE TP PRN (14:30)
[2022-07-22] MEDS ORDERED: MEDIHONEY= THERAHONEY 1.5 OZ TUBE TOP PRN (14:30)
[2022-07-22] MEDS: CLOTRIMAZOLE 1% CREAM 30 GM TUBE TP SCH ×2 (14:42→21:02)
[2022-07-22] MEDS: COD LIVER OIL/ZINC OXIDE OINT 113 GM TUBE TP SCH ×2 (14:43→21:02)
[2022-07-22] MEDS: MEDIHONEY= THERAHONEY 1.5 OZ TUBE TOP SCH ×2 (14:43→21:02)
[2022-07-22] MEDS: ACETAMINOPHEN 650 MG/20 ML UDC- SA PATIENTS-PAIN ONLY GT PRN (17:32)
[2022-07-22 20:00] VITALS: TEMP 98
[2022-07-22] MEDS: ASCORBIC ACID 500 MG TABLET GT SCH (21:01)
[2022-07-22] MEDS: ACIDOPHILUS/BULGARICUS CHEW TAB GT SCH (21:01)
[2022-07-22] MEDS: NORMAL SALINE NASAL 45 ML BOTTLE NS SCH (21:02)
[2022-07-22] MEDS: GLUCERNA 1.2 1000ML LIQUID GT PRN (23:49)
[2022-07-23] MEDS: ARGININE/GLUTAMINE/CALCIUM BMB 1 EACH POWD.PACK GT SCH ×2 (06:36→17:26)
[2022-07-23] MEDS: FAMOTIDINE 20 MG TABLET GT SCH ×2 (06:36→17:26)
[2022-07-23] MEDS: POLYVINYL ALCOHOL OPHT DROPS 15 ML BOTTLE EACHEYE SCH ×3 (06:36→21:00)
[2022-07-23] MEDS: PROTEIN SUPPLEMENT (PROSTAT) 30 ML LIQUID GT SCH ×3 (06:37→21:00)
[2022-07-23 07:31] VITALS: TEMP 97.7
[2022-07-23] MEDS: ACETAMINOPHEN 650 MG/20.3 ML LIQUID UDC GT SCH ×2 (08:30→20:30)
[2022-07-23] MEDS: DIGOXIN 125 MCG TABLET GT SCH (09:00)
[2022-07-23] MEDS: levETIRAcetam 500 MG/5 ML LIQUID UDC GT SCH ×2 (09:00→20:58)
[2022-07-23] MEDS: POTASSIUM CHLORIDE 40 MEQ/30 ML LIQUID UDC GT SCH (09:00)
[2022-07-23] MEDS: MEDIHONEY= THERAHONEY 1.5 OZ TUBE TOP SCH ×2 (09:00→20:59)
[2022-07-23] MEDS: COD LIVER OIL/ZINC OXIDE OINT 113 GM TUBE TP SCH ×2 (09:00→20:59)
[2022-07-23] MEDS: CLOTRIMAZOLE 1% CREAM 30 GM TUBE TP SCH ×2 (09:00→20:59)
[2022-07-23] MEDS: FUROSEMIDE 20 MG TABLET GT SCH (09:00)
[2022-07-23] MEDS: REMEDY ESSENTIAL ZINC PASTE 113 GM TP SCH ×2 (09:00→20:59)
[2022-07-23] MEDS: HYDROGEN PEROXIDE 3% 118 ML BOTTLE TP SCH ×2 (09:33→19:08)
[2022-07-23 20:00] VITALS: TEMP 97.8
[2022-07-23] MEDS: ACIDOPHILUS/BULGARICUS CHEW TAB GT SCH (20:57)
[2022-07-23] MEDS: ASCORBIC ACID 500 MG TABLET GT SCH (20:58)
[2022-07-23] MEDS: NORMAL SALINE NASAL 45 ML BOTTLE NS SCH (20:59)
[2022-07-24] MEDS: GLUCERNA 1.2 1000ML LIQUID GT PRN (05:00)
[2022-07-24] MEDS: FAMOTIDINE 20 MG TABLET GT SCH ×2 (05:13→17:05)
[2022-07-24] MEDS: PROTEIN SUPPLEMENT (PROSTAT) 30 ML LIQUID GT SCH ×3 (05:13→21:26)
[2022-07-24] MEDS: POLYVINYL ALCOHOL OPHT DROPS 15 ML BOTTLE EACHEYE SCH ×3 (05:13→21:25)
[2022-07-24] MEDS: ARGININE/GLUTAMINE/CALCIUM BMB 1 EACH POWD.PACK GT SCH ×2 (05:13→17:05)
[2022-07-24 07:36] VITALS: TEMP 98.4
[2022-07-24] MEDS: levETIRAcetam 500 MG/5 ML LIQUID UDC GT SCH ×2 (08:18→20:41)
[2022-07-24] MEDS: ACETAMINOPHEN 650 MG/20.3 ML LIQUID UDC GT SCH ×2 (08:18→20:41)
[2022-07-24] MEDS: DIGOXIN 125 MCG TABLET GT SCH (08:18)
[2022-07-24] MEDS: POTASSIUM CHLORIDE 40 MEQ/30 ML LIQUID UDC GT SCH (08:19)
[2022-07-24] MEDS: MEDIHONEY= THERAHONEY 1.5 OZ TUBE TOP SCH ×2 (08:19→20:42)
[2022-07-24] MEDS: FUROSEMIDE 20 MG TABLET GT SCH (08:19)
[2022-07-24] MEDS: COD LIVER OIL/ZINC OXIDE OINT 113 GM TUBE TP SCH ×2 (08:20→20:42)
[2022-07-24] MEDS: CLOTRIMAZOLE 1% CREAM 30 GM TUBE TP SCH ×2 (08:20→20:43)
[2022-07-24] MEDS: REMEDY ESSENTIAL ZINC PASTE 113 GM TP SCH ×2 (08:20→20:44)
[2022-07-24] MEDS: HYDROGEN PEROXIDE 3% 118 ML BOTTLE TP SCH ×2 (09:12→19:05)
[2022-07-24 20:00] VITALS: TEMP 99.5
[2022-07-24] MEDS: ACIDOPHILUS/BULGARICUS CHEW TAB GT SCH (20:41)
[2022-07-24] MEDS: ASCORBIC ACID 500 MG TABLET GT SCH (20:42)
[2022-07-24] MEDS: NORMAL SALINE NASAL 45 ML BOTTLE NS SCH (20:42)
[2022-07-25] MEDS: PROTEIN SUPPLEMENT (PROSTAT) 30 ML LIQUID GT SCH ×3 (06:18→21:13)
[2022-07-25] MEDS: POLYVINYL ALCOHOL OPHT DROPS 15 ML BOTTLE EACHEYE SCH ×3 (06:18→21:13)
[2022-07-25] MEDS: ARGININE/GLUTAMINE/CALCIUM BMB 1 EACH POWD.PACK GT SCH ×2 (06:18→17:16)
[2022-07-25] MEDS: FAMOTIDINE 20 MG TABLET GT SCH ×2 (06:18→18:07)
[2022-07-25 07:26] VITALS: TEMP 97.8
[2022-07-25] MEDS: HYDROGEN PEROXIDE 3% 118 ML BOTTLE TP SCH ×2 (07:27→19:31)
[2022-07-25] MEDS: ACETAMINOPHEN 650 MG/20.3 ML LIQUID UDC GT SCH ×2 (08:30→21:05)
[2022-07-25] MEDS: levETIRAcetam 500 MG/5 ML LIQUID UDC GT SCH ×2 (09:00→21:12)
[2022-07-25] MEDS: CLOTRIMAZOLE 1% CREAM 30 GM TUBE TP SCH ×2 (09:00→21:14)
[2022-07-25] MEDS: FUROSEMIDE 20 MG TABLET GT SCH (09:00)
[2022-07-25] MEDS: DIGOXIN 125 MCG TABLET GT SCH (09:00)
[2022-07-25] MEDS: MEDIHONEY= THERAHONEY 1.5 OZ TUBE TOP SCH ×2 (09:00→21:13)
[2022-07-25] MEDS: POTASSIUM CHLORIDE 40 MEQ/30 ML LIQUID UDC GT SCH (09:00)
[2022-07-25] MEDS: REMEDY ESSENTIAL ZINC PASTE 113 GM TP SCH ×2 (09:00→21:13)
[2022-07-25] MEDS: COD LIVER OIL/ZINC OXIDE OINT 113 GM TUBE TP SCH ×2 (09:00→21:13)
[2022-07-25 20:00] VITALS: TEMP 98.6
[2022-07-25] MEDS: ACIDOPHILUS/BULGARICUS CHEW TAB GT SCH (21:12)
[2022-07-25] MEDS: ASCORBIC ACID 500 MG TABLET GT SCH (21:13)
[2022-07-25] MEDS: NORMAL SALINE NASAL 45 ML BOTTLE NS SCH (21:13)
[2022-07-26] MEDS: ARGININE/GLUTAMINE/CALCIUM BMB 1 EACH POWD.PACK GT SCH ×2 (05:32→17:02)
[2022-07-26] MEDS: POLYVINYL ALCOHOL OPHT DROPS 15 ML BOTTLE EACHEYE SCH ×3 (05:32→22:58)
[2022-07-26] MEDS: FAMOTIDINE 20 MG TABLET GT SCH ×2 (05:32→17:03)
[2022-07-26] MEDS: PROTEIN SUPPLEMENT (PROSTAT) 30 ML LIQUID GT SCH ×3 (05:33→22:58)
[2022-07-26] MEDS: levETIRAcetam 500 MG/5 ML LIQUID UDC GT SCH ×2 (08:38→20:41)
[2022-07-26] MEDS: ACETAMINOPHEN 650 MG/20.3 ML LIQUID UDC GT SCH ×2 (08:38→20:41)
[2022-07-26] MEDS: DIGOXIN 125 MCG TABLET GT SCH (08:39)
[2022-07-26] MEDS: FUROSEMIDE 20 MG TABLET GT SCH (08:39)
[2022-07-26] MEDS: HYDROGEN PEROXIDE 3% 118 ML BOTTLE TP SCH ×2 (08:39→19:03)
[2022-07-26] MEDS: COD LIVER OIL/ZINC OXIDE OINT 113 GM TUBE TP SCH ×2 (08:39→20:41)
[2022-07-26] MEDS: POTASSIUM CHLORIDE 40 MEQ/30 ML LIQUID UDC GT SCH (08:39)
[2022-07-26] MEDS: MEDIHONEY= THERAHONEY 1.5 OZ TUBE TOP SCH ×2 (08:39→20:41)
[2022-07-26] MEDS: CLOTRIMAZOLE 1% CREAM 30 GM TUBE TP SCH ×2 (08:40→20:42)
[2022-07-26] MEDS: REMEDY ESSENTIAL ZINC PASTE 113 GM TP SCH ×2 (08:40→20:42)
[2022-07-26 09:21] VITALS: TEMP 97.9
[2022-07-26 20:33] VITALS: TEMP 98.5
[2022-07-26] MEDS: ASCORBIC ACID 500 MG TABLET GT SCH (20:41)
[2022-07-26] MEDS: ACIDOPHILUS/BULGARICUS CHEW TAB GT SCH (20:41)
[2022-07-26] MEDS: NORMAL SALINE NASAL 45 ML BOTTLE NS SCH (20:41)
[2022-07-26] MEDS: GLUCERNA 1.2 1000ML LIQUID GT PRN (22:58)
[2022-07-27] MEDS: ARGININE/GLUTAMINE/CALCIUM BMB 1 EACH POWD.PACK GT SCH ×2 (05:08→18:17)
[2022-07-27] MEDS: FAMOTIDINE 20 MG TABLET GT SCH ×2 (05:08→18:17)
[2022-07-27] MEDS: POLYVINYL ALCOHOL OPHT DROPS 15 ML BOTTLE EACHEYE SCH ×3 (05:08→22:59)
[2022-07-27] MEDS: PROTEIN SUPPLEMENT (PROSTAT) 30 ML LIQUID GT SCH ×3 (05:08→22:59)
[2022-07-27] MEDS: HYDROGEN PEROXIDE 3% 118 ML BOTTLE TP SCH ×2 (07:50→19:19)
[2022-07-27 08:00] VITALS: TEMP 97.8
[2022-07-27] MEDS: ACETAMINOPHEN 650 MG/20.3 ML LIQUID UDC GT SCH ×2 (08:30→20:45)
[2022-07-27] MEDS: MEDIHONEY= THERAHONEY 1.5 OZ TUBE TOP SCH ×2 (09:00→21:00)
[2022-07-27] MEDS: COD LIVER OIL/ZINC OXIDE OINT 113 GM TUBE TP SCH ×2 (09:00→21:00)
[2022-07-27] MEDS: levETIRAcetam 500 MG/5 ML LIQUID UDC GT SCH ×2 (09:00→20:45)
[2022-07-27] MEDS: DIGOXIN 125 MCG TABLET GT SCH (09:00)
[2022-07-27] MEDS: CLOTRIMAZOLE 1% CREAM 30 GM TUBE TP SCH ×2 (09:00→21:00)
[2022-07-27] MEDS: REMEDY ESSENTIAL ZINC PASTE 113 GM TP SCH ×2 (09:00→21:00)
[2022-07-27] MEDS: FUROSEMIDE 20 MG TABLET GT SCH (09:00)
[2022-07-27] MEDS: POTASSIUM CHLORIDE 40 MEQ/30 ML LIQUID UDC GT SCH (09:00)
[2022-07-27 20:00] VITALS: TEMP 98.5
[2022-07-27] MEDS: ASCORBIC ACID 500 MG TABLET GT SCH (20:45)
[2022-07-27] MEDS: NORMAL SALINE NASAL 45 ML BOTTLE NS SCH (20:45)
[2022-07-27] MEDS: ACIDOPHILUS/BULGARICUS CHEW TAB GT SCH (20:45)
[2022-07-28] MEDS: FAMOTIDINE 20 MG TABLET GT SCH ×2 (05:11→17:05)
[2022-07-28] MEDS: POLYVINYL ALCOHOL OPHT DROPS 15 ML BOTTLE EACHEYE SCH ×3 (05:11→21:50)
[2022-07-28] MEDS: ARGININE/GLUTAMINE/CALCIUM BMB 1 EACH POWD.PACK GT SCH ×2 (05:11→17:05)
[2022-07-28] MEDS: PROTEIN SUPPLEMENT (PROSTAT) 30 ML LIQUID GT SCH ×3 (05:11→21:50)
[2022-07-28] MEDS: ACETAMINOPHEN 650 MG/20.3 ML LIQUID UDC GT SCH ×2 (08:37→20:20)
[2022-07-28] MEDS: levETIRAcetam 500 MG/5 ML LIQUID UDC GT SCH ×2 (08:38→20:20)
[2022-07-28] MEDS: DIGOXIN 125 MCG TABLET GT SCH (08:38)
[2022-07-28] MEDS: POTASSIUM CHLORIDE 40 MEQ/30 ML LIQUID UDC GT SCH (08:39)
[2022-07-28] MEDS: FUROSEMIDE 20 MG TABLET GT SCH (08:39)
[2022-07-28] MEDS: REMEDY ESSENTIAL ZINC PASTE 113 GM TP SCH ×2 (08:40→20:21)
[2022-07-28] MEDS: CLOTRIMAZOLE 1% CREAM 30 GM TUBE TP SCH ×2 (08:40→20:21)
[2022-07-28] MEDS: COD LIVER OIL/ZINC OXIDE OINT 113 GM TUBE TP SCH ×2 (08:40→20:21)
[2022-07-28] MEDS: MEDIHONEY= THERAHONEY 1.5 OZ TUBE TOP SCH ×2 (08:40→20:21)
[2022-07-28] MEDS: HYDROGEN PEROXIDE 3% 118 ML BOTTLE TP SCH ×2 (09:00→18:56)
[2022-07-28 10:49] VITALS: TEMP 97.8
[2022-07-28 20:11] VITALS: BP 122/74; TEMP 97.8; O2SAT 99
[2022-07-28] MEDS: ASCORBIC ACID 500 MG TABLET GT SCH (20:20)
[2022-07-28] MEDS: ACIDOPHILUS/BULGARICUS CHEW TAB GT SCH (20:20)
[2022-07-28] MEDS: NORMAL SALINE NASAL 45 ML BOTTLE NS SCH (20:21)
[2022-07-29] MEDS: POLYVINYL ALCOHOL OPHT DROPS 15 ML BOTTLE EACHEYE SCH ×3 (05:04→22:01)
[2022-07-29] MEDS: FAMOTIDINE 20 MG TABLET GT SCH ×2 (05:04→17:41)
[2022-07-29] MEDS: PROTEIN SUPPLEMENT (PROSTAT) 30 ML LIQUID GT SCH ×3 (05:04→22:01)
[2022-07-29] MEDS: ARGININE/GLUTAMINE/CALCIUM BMB 1 EACH POWD.PACK GT SCH ×2 (05:04→17:41)
[2022-07-29 07:31] VITALS: TEMP 97.4
[2022-07-29] MEDS: MEDIHONEY= THERAHONEY 1.5 OZ TUBE TOP SCH ×2 (09:04→21:00)
[2022-07-29] MEDS: FUROSEMIDE 20 MG TABLET GT SCH (09:04)
[2022-07-29] MEDS: levETIRAcetam 500 MG/5 ML LIQUID UDC GT SCH ×2 (09:04→21:59)
[2022-07-29] MEDS: DIGOXIN 125 MCG TABLET GT SCH (09:04)
[2022-07-29] MEDS: POTASSIUM CHLORIDE 40 MEQ/30 ML LIQUID UDC GT SCH (09:04)
[2022-07-29] MEDS: ACETAMINOPHEN 650 MG/20.3 ML LIQUID UDC GT SCH ×2 (09:04→20:30)
[2022-07-29] MEDS: REMEDY ESSENTIAL ZINC PASTE 113 GM TP SCH ×2 (09:05→21:00)
[2022-07-29] MEDS: COD LIVER OIL/ZINC OXIDE OINT 113 GM TUBE TP SCH ×2 (09:05→21:00)
[2022-07-29] MEDS: CLOTRIMAZOLE 1% CREAM 30 GM TUBE TP SCH ×2 (09:05→21:00)
[2022-07-29] MEDS: HYDROGEN PEROXIDE 3% 118 ML BOTTLE TP SCH ×2 (09:23→19:57)
[2022-07-29 20:00] VITALS: TEMP 98.2
[2022-07-29] MEDS: NORMAL SALINE NASAL 45 ML BOTTLE NS SCH (21:00)
[2022-07-29] MEDS: ACIDOPHILUS/BULGARICUS CHEW TAB GT SCH (21:59)
[2022-07-29] MEDS: ASCORBIC ACID 500 MG TABLET GT SCH (21:59)
[2022-07-29] MEDS: GLUCERNA 1.2 1000ML LIQUID GT PRN (22:17)
[2022-07-30] MEDS: PROTEIN SUPPLEMENT (PROSTAT) 30 ML LIQUID GT SCH ×3 (05:02→21:55)
[2022-07-30] MEDS: FAMOTIDINE 20 MG TABLET GT SCH ×2 (05:02→17:03)
[2022-07-30] MEDS: POLYVINYL ALCOHOL OPHT DROPS 15 ML BOTTLE EACHEYE SCH ×3 (05:02→21:54)
[2022-07-30] MEDS: ARGININE/GLUTAMINE/CALCIUM BMB 1 EACH POWD.PACK GT SCH ×2 (05:02→17:03)
[2022-07-30 07:38] VITALS: TEMP 98.3
[2022-07-30] MEDS: levETIRAcetam 500 MG/5 ML LIQUID UDC GT SCH ×2 (08:11→21:53)
[2022-07-30] MEDS: POTASSIUM CHLORIDE 40 MEQ/30 ML LIQUID UDC GT SCH (08:11)
[2022-07-30] MEDS: FUROSEMIDE 20 MG TABLET GT SCH (08:11)
[2022-07-30] MEDS: ACETAMINOPHEN 650 MG/20.3 ML LIQUID UDC GT SCH ×2 (08:11→20:30)
[2022-07-30] MEDS: DIGOXIN 125 MCG TABLET GT SCH (08:11)
[2022-07-30] MEDS: MEDIHONEY= THERAHONEY 1.5 OZ TUBE TOP SCH ×2 (08:11→21:53)
[2022-07-30] MEDS: CLOTRIMAZOLE 1% CREAM 30 GM TUBE TP SCH ×2 (08:12→21:54)
[2022-07-30] MEDS: COD LIVER OIL/ZINC OXIDE OINT 113 GM TUBE TP SCH ×2 (08:12→21:54)
[2022-07-30] MEDS: REMEDY ESSENTIAL ZINC PASTE 113 GM TP SCH ×2 (08:12→21:54)
[2022-07-30] MEDS: HYDROGEN PEROXIDE 3% 118 ML BOTTLE TP SCH ×2 (09:00→20:50)
[2022-07-30] MEDS: HYDROCORTISONE 2.5% CREAM 20 GM TUBE TOP SCH ×2 (09:22→21:53)
[2022-07-30 20:00] VITALS: TEMP 97.6
[2022-07-30] MEDS: ACIDOPHILUS/BULGARICUS CHEW TAB GT SCH (21:53)
[2022-07-30] MEDS: ASCORBIC ACID 500 MG TABLET GT SCH (21:53)
[2022-07-30] MEDS: NORMAL SALINE NASAL 45 ML BOTTLE NS SCH (21:53)
[2022-07-31] MEDS: FAMOTIDINE 20 MG TABLET GT SCH ×2 (06:11→17:03)
[2022-07-31] MEDS: PROTEIN SUPPLEMENT (PROSTAT) 30 ML LIQUID GT SCH ×3 (06:11→21:44)
[2022-07-31] MEDS: POLYVINYL ALCOHOL OPHT DROPS 15 ML BOTTLE EACHEYE SCH ×3 (06:11→21:44)
[2022-07-31] MEDS: ARGININE/GLUTAMINE/CALCIUM BMB 1 EACH POWD.PACK GT SCH ×2 (06:11→17:03)
[2022-07-31 08:00] VITALS: TEMP 97.8
[2022-07-31] MEDS: HYDROGEN PEROXIDE 3% 118 ML BOTTLE TP SCH ×2 (09:00→21:52)
[2022-07-31] MEDS: ACETAMINOPHEN 650 MG/20.3 ML LIQUID UDC GT SCH ×2 (09:25→20:21)
[2022-07-31] MEDS: levETIRAcetam 500 MG/5 ML LIQUID UDC GT SCH ×2 (09:28→20:22)
[2022-07-31] MEDS: FUROSEMIDE 20 MG TABLET GT SCH (09:29)
[2022-07-31] MEDS: DIGOXIN 125 MCG TABLET GT SCH (09:29)
[2022-07-31] MEDS: MEDIHONEY= THERAHONEY 1.5 OZ TUBE TOP SCH ×2 (09:30→20:22)
[2022-07-31] MEDS: HYDROCORTISONE 2.5% CREAM 20 GM TUBE TOP SCH ×2 (09:30→20:22)
[2022-07-31] MEDS: POTASSIUM CHLORIDE 40 MEQ/30 ML LIQUID UDC GT SCH (09:30)
[2022-07-31] MEDS: COD LIVER OIL/ZINC OXIDE OINT 113 GM TUBE TP SCH ×2 (09:31→20:22)
[2022-07-31] MEDS: REMEDY ESSENTIAL ZINC PASTE 113 GM TP SCH ×2 (09:31→20:22)
[2022-07-31] MEDS: CLOTRIMAZOLE 1% CREAM 30 GM TUBE TP SCH ×2 (09:31→20:22)
[2022-07-31] MEDS: ACIDOPHILUS/BULGARICUS CHEW TAB GT SCH (20:21)
[2022-07-31] MEDS: NORMAL SALINE NASAL 45 ML BOTTLE NS SCH (20:22)
[2022-07-31] MEDS: ASCORBIC ACID 500 MG TABLET GT SCH (20:22)
[2022-07-31 20:52] VITALS: TEMP 99.6
[2022-08-01] MEDS: FAMOTIDINE 20 MG TABLET GT SCH ×2 (05:03→17:02)
[2022-08-01] MEDS: POLYVINYL ALCOHOL OPHT DROPS 15 ML BOTTLE EACHEYE SCH ×3 (05:03→22:00)
[2022-08-01] MEDS: ARGININE/GLUTAMINE/CALCIUM BMB 1 EACH POWD.PACK GT SCH ×2 (05:03→17:02)
[2022-08-01] MEDS: PROTEIN SUPPLEMENT (PROSTAT) 30 ML LIQUID GT SCH ×3 (05:03→22:00)
[2022-08-01 07:23] VITALS: TEMP 98.6
[2022-08-01 08:00] VITALS: TEMP 97.4
[2022-08-01] MEDS: HYDROGEN PEROXIDE 3% 118 ML BOTTLE TP SCH ×2 (08:00→21:00)
[2022-08-01] MEDS: ACETAMINOPHEN 650 MG/20.3 ML LIQUID UDC GT SCH ×2 (08:31→20:12)
[2022-08-01] MEDS: levETIRAcetam 500 MG/5 ML LIQUID UDC GT SCH ×2 (08:31→20:12)
[2022-08-01] MEDS: DIGOXIN 125 MCG TABLET GT SCH (08:33)
[2022-08-01] MEDS: FUROSEMIDE 20 MG TABLET GT SCH (08:33)
[2022-08-01] MEDS: POTASSIUM CHLORIDE 40 MEQ/30 ML LIQUID UDC GT SCH (08:33)
[2022-08-01] MEDS: COD LIVER OIL/ZINC OXIDE OINT 113 GM TUBE TP SCH ×2 (08:34→20:13)
[2022-08-01] MEDS: REMEDY ESSENTIAL ZINC PASTE 113 GM TP SCH ×2 (08:34→20:13)
[2022-08-01] MEDS: MEDIHONEY= THERAHONEY 1.5 OZ TUBE TOP SCH ×2 (08:34→20:13)
[2022-08-01] MEDS: CLOTRIMAZOLE 1% CREAM 30 GM TUBE TP SCH ×2 (08:34→20:13)
[2022-08-01] MEDS: HYDROCORTISONE 2.5% CREAM 20 GM TUBE TOP SCH ×2 (08:34→20:13)
[2022-08-01 19:52] VITALS: TEMP 98
[2022-08-01] MEDS: ACIDOPHILUS/BULGARICUS CHEW TAB GT SCH (20:12)
[2022-08-01] MEDS: ASCORBIC ACID 500 MG TABLET GT SCH (20:12)
[2022-08-01] MEDS: NORMAL SALINE NASAL 45 ML BOTTLE NS SCH (20:13)
[2022-08-02] MEDS: POLYVINYL ALCOHOL OPHT DROPS 15 ML BOTTLE EACHEYE SCH ×3 (05:07→22:00)
[2022-08-02] MEDS: ARGININE/GLUTAMINE/CALCIUM BMB 1 EACH POWD.PACK GT SCH ×2 (05:07→17:03)
[2022-08-02] MEDS: PROTEIN SUPPLEMENT (PROSTAT) 30 ML LIQUID GT SCH ×3 (05:07→22:00)
[2022-08-02] MEDS: FAMOTIDINE 20 MG TABLET GT SCH ×2 (05:07→17:03)
[2022-08-02 08:00] VITALS: TEMP 97.6
[2022-08-02] MEDS: levETIRAcetam 500 MG/5 ML LIQUID UDC GT SCH ×2 (08:36→20:11)
[2022-08-02] MEDS: ACETAMINOPHEN 650 MG/20.3 ML LIQUID UDC GT SCH ×2 (08:36→20:11)
[2022-08-02] MEDS: DIGOXIN 125 MCG TABLET GT SCH (08:38)
[2022-08-02] MEDS: FUROSEMIDE 20 MG TABLET GT SCH (08:38)
[2022-08-02] MEDS: POTASSIUM CHLORIDE 40 MEQ/30 ML LIQUID UDC GT SCH (08:39)
[2022-08-02] MEDS: REMEDY ESSENTIAL ZINC PASTE 113 GM TP SCH ×2 (08:39→20:11)
[2022-08-02] MEDS: HYDROCORTISONE 2.5% CREAM 20 GM TUBE TOP SCH ×2 (09:00→20:11)
[2022-08-02] MEDS: HYDROGEN PEROXIDE 3% 118 ML BOTTLE TP SCH ×2 (09:13→19:30)
[2022-08-02] MEDS: MEDIHONEY= THERAHONEY 1.5 OZ TUBE TOP SCH ×2 (10:00→20:11)
[2022-08-02] MEDS: CLOTRIMAZOLE 1% CREAM 30 GM TUBE TP SCH ×2 (10:00→20:11)
[2022-08-02] MEDS: COD LIVER OIL/ZINC OXIDE OINT 113 GM TUBE TP SCH ×2 (10:00→20:11)
[2022-08-02] MEDS: GLUCERNA 1.2 1000ML LIQUID GT PRN (18:30)
[2022-08-02 19:50] VITALS: TEMP 99
[2022-08-02] MEDS: NORMAL SALINE NASAL 45 ML BOTTLE NS SCH (20:11)
[2022-08-02] MEDS: ASCORBIC ACID 500 MG TABLET GT SCH (20:11)
[2022-08-02] MEDS: ACIDOPHILUS/BULGARICUS CHEW TAB GT SCH (20:11)
[2022-08-03] MEDS: FAMOTIDINE 20 MG TABLET GT SCH ×2 (05:12→17:00)
[2022-08-03] MEDS: ARGININE/GLUTAMINE/CALCIUM BMB 1 EACH POWD.PACK GT SCH ×2 (05:12→17:00)
[2022-08-03] MEDS: POLYVINYL ALCOHOL OPHT DROPS 15 ML BOTTLE EACHEYE SCH ×3 (05:13→21:10)
[2022-08-03] MEDS: PROTEIN SUPPLEMENT (PROSTAT) 30 ML LIQUID GT SCH ×3 (05:13→21:10)
[2022-08-03 07:39] VITALS: TEMP 98.3
[2022-08-03] MEDS: HYDROGEN PEROXIDE 3% 118 ML BOTTLE TP SCH ×2 (08:00→19:27)
[2022-08-03] MEDS: HYDROCORTISONE 2.5% CREAM 20 GM TUBE TOP SCH ×2 (09:00→20:41)
[2022-08-03] MEDS: ACETAMINOPHEN 650 MG/20.3 ML LIQUID UDC GT SCH ×2 (09:13→20:41)
[2022-08-03] MEDS: levETIRAcetam 500 MG/5 ML LIQUID UDC GT SCH ×2 (09:13→20:42)
[2022-08-03] MEDS: DIGOXIN 125 MCG TABLET GT SCH (09:13)
[2022-08-03] MEDS: POTASSIUM CHLORIDE 40 MEQ/30 ML LIQUID UDC GT SCH (09:14)
[2022-08-03] MEDS: FUROSEMIDE 20 MG TABLET GT SCH (09:14)
[2022-08-03] MEDS: MEDIHONEY= THERAHONEY 1.5 OZ TUBE TOP SCH ×2 (10:00→20:42)
[2022-08-03] MEDS: CLOTRIMAZOLE 1% CREAM 30 GM TUBE TP SCH ×2 (10:00→20:42)
[2022-08-03] MEDS: COD LIVER OIL/ZINC OXIDE OINT 113 GM TUBE TP SCH ×2 (10:00→20:42)
[2022-08-03] MEDS: REMEDY ESSENTIAL ZINC PASTE 113 GM TP SCH ×2 (10:00→20:42)
[2022-08-03] MEDS: ASCORBIC ACID 500 MG TABLET GT SCH (20:41)
[2022-08-03] MEDS: ACIDOPHILUS/BULGARICUS CHEW TAB GT SCH (20:41)
[2022-08-03] MEDS: NORMAL SALINE NASAL 45 ML BOTTLE NS SCH (20:41)
[2022-08-03 21:34] VITALS: TEMP 98.8
[2022-08-04] MEDS: PROTEIN SUPPLEMENT (PROSTAT) 30 ML LIQUID GT SCH ×3 (05:25→21:36)
[2022-08-04] MEDS: GLUCERNA 1.2 1000ML LIQUID GT PRN (05:25)
[2022-08-04] MEDS: ARGININE/GLUTAMINE/CALCIUM BMB 1 EACH POWD.PACK GT SCH ×2 (05:25→17:02)
[2022-08-04] MEDS: POLYVINYL ALCOHOL OPHT DROPS 15 ML BOTTLE EACHEYE SCH ×3 (05:25→21:36)
[2022-08-04] MEDS: FAMOTIDINE 20 MG TABLET GT SCH ×2 (05:25→17:02)
[2022-08-04 07:51] VITALS: TEMP 97.7
[2022-08-04] MEDS: ACETAMINOPHEN 650 MG/20.3 ML LIQUID UDC GT SCH ×2 (08:43→20:01)
[2022-08-04] MEDS: levETIRAcetam 500 MG/5 ML LIQUID UDC GT SCH ×2 (08:48→20:00)
[2022-08-04] MEDS: DIGOXIN 125 MCG TABLET GT SCH (08:49)
[2022-08-04] MEDS: FUROSEMIDE 20 MG TABLET GT SCH (08:49)
[2022-08-04] MEDS: POTASSIUM CHLORIDE 40 MEQ/30 ML LIQUID UDC GT SCH (08:49)
[2022-08-04] MEDS: REMEDY ESSENTIAL ZINC PASTE 113 GM TP SCH ×2 (08:51→20:00)
[2022-08-04] MEDS: CLOTRIMAZOLE 1% CREAM 30 GM TUBE TP SCH ×2 (08:51→20:00)
[2022-08-04] MEDS: MEDIHONEY= THERAHONEY 1.5 OZ TUBE TOP SCH ×2 (08:51→20:00)
[2022-08-04] MEDS: COD LIVER OIL/ZINC OXIDE OINT 113 GM TUBE TP SCH ×2 (08:51→20:00)
[2022-08-04] MEDS: HYDROCORTISONE 2.5% CREAM 20 GM TUBE TOP SCH ×2 (08:51→20:00)
[2022-08-04] MEDS: HYDROGEN PEROXIDE 3% 118 ML BOTTLE TP SCH ×2 (09:00→19:13)
[2022-08-04 20:00] VITALS: TEMP 99.2
[2022-08-04] MEDS: ASCORBIC ACID 500 MG TABLET GT SCH (20:00)
[2022-08-04] MEDS: NORMAL SALINE NASAL 45 ML BOTTLE NS SCH (20:00)
[2022-08-04] MEDS: ACIDOPHILUS/BULGARICUS CHEW TAB GT SCH (20:01)
[2022-08-05] MEDS: ARGININE/GLUTAMINE/CALCIUM BMB 1 EACH POWD.PACK GT SCH ×2 (05:25→17:27)
[2022-08-05] MEDS: FAMOTIDINE 20 MG TABLET GT SCH ×2 (05:25→17:27)
[2022-08-05] MEDS: POLYVINYL ALCOHOL OPHT DROPS 15 ML BOTTLE EACHEYE SCH ×3 (05:25→21:08)
[2022-08-05] MEDS: PROTEIN SUPPLEMENT (PROSTAT) 30 ML LIQUID GT SCH ×3 (05:25→21:08)
[2022-08-05] MEDS: HYDROGEN PEROXIDE 3% 118 ML BOTTLE TP SCH ×2 (07:10→19:33)
[2022-08-05 08:02] VITALS: TEMP 97.5
[2022-08-05] MEDS: COD LIVER OIL/ZINC OXIDE OINT 113 GM TUBE TP SCH ×2 (09:04→20:11)
[2022-08-05] MEDS: FUROSEMIDE 20 MG TABLET GT SCH (09:04)
[2022-08-05] MEDS: CLOTRIMAZOLE 1% CREAM 30 GM TUBE TP SCH ×2 (09:04→20:11)
[2022-08-05] MEDS: levETIRAcetam 500 MG/5 ML LIQUID UDC GT SCH ×2 (09:04→20:10)
[2022-08-05] MEDS: POTASSIUM CHLORIDE 40 MEQ/30 ML LIQUID UDC GT SCH (09:04)
[2022-08-05] MEDS: HYDROCORTISONE 2.5% CREAM 20 GM TUBE TOP SCH ×2 (09:04→20:10)
[2022-08-05] MEDS: DIGOXIN 125 MCG TABLET GT SCH (09:04)
[2022-08-05] MEDS: MEDIHONEY= THERAHONEY 1.5 OZ TUBE TOP SCH ×2 (09:04→20:10)
[2022-08-05] MEDS: ACETAMINOPHEN 650 MG/20.3 ML LIQUID UDC GT SCH ×2 (09:04→20:30)
[2022-08-05] MEDS: REMEDY ESSENTIAL ZINC PASTE 113 GM TP SCH ×2 (09:05→20:11)
[2022-08-05] MEDS: GLUCERNA 1.2 1000ML LIQUID GT PRN (12:17)
[2022-08-05 20:00] VITALS: TEMP 98.4; TEMP 99.1
[2022-08-05] MEDS: ASCORBIC ACID 500 MG TABLET GT SCH (20:10)
[2022-08-05] MEDS: NORMAL SALINE NASAL 45 ML BOTTLE NS SCH (20:10)
[2022-08-05] MEDS: ACIDOPHILUS/BULGARICUS CHEW TAB GT SCH (20:10)
[2022-08-06] MEDS: POLYVINYL ALCOHOL OPHT DROPS 15 ML BOTTLE EACHEYE SCH ×3 (06:00→22:00)
[2022-08-06] MEDS: ARGININE/GLUTAMINE/CALCIUM BMB 1 EACH POWD.PACK GT SCH ×2 (06:00→17:02)
[2022-08-06] MEDS: PROTEIN SUPPLEMENT (PROSTAT) 30 ML LIQUID GT SCH ×3 (06:00→22:00)
[2022-08-06] MEDS: FAMOTIDINE 20 MG TABLET GT SCH ×2 (06:00→17:03)
[2022-08-06 08:00] VITALS: TEMP 97.7
[2022-08-06] MEDS: HYDROGEN PEROXIDE 3% 118 ML BOTTLE TP SCH ×2 (08:06→21:05)
[2022-08-06] MEDS: ACETAMINOPHEN 650 MG/20.3 ML LIQUID UDC GT SCH ×2 (09:24→20:15)
[2022-08-06] MEDS: levETIRAcetam 500 MG/5 ML LIQUID UDC GT SCH ×2 (09:25→20:17)
[2022-08-06] MEDS: DIGOXIN 125 MCG TABLET GT SCH (09:26)
[2022-08-06] MEDS: POTASSIUM CHLORIDE 40 MEQ/30 ML LIQUID UDC GT SCH (09:27)
[2022-08-06] MEDS: FUROSEMIDE 20 MG TABLET GT SCH (09:27)
[2022-08-06] MEDS: REMEDY ESSENTIAL ZINC PASTE 113 GM TP SCH ×2 (09:28→20:18)
[2022-08-06] MEDS: COD LIVER OIL/ZINC OXIDE OINT 113 GM TUBE TP SCH ×2 (09:28→20:18)
[2022-08-06] MEDS: MEDIHONEY= THERAHONEY 1.5 OZ TUBE TOP SCH ×2 (09:28→20:18)
[2022-08-06] MEDS: CLOTRIMAZOLE 1% CREAM 30 GM TUBE TP SCH ×2 (09:28→20:18)
[2022-08-06] MEDS: GLUCERNA 1.2 1000ML LIQUID GT PRN (18:50)
[2022-08-06] MEDS: ACIDOPHILUS/BULGARICUS CHEW TAB GT SCH (20:16)
[2022-08-06] MEDS: ASCORBIC ACID 500 MG TABLET GT SCH (20:17)
[2022-08-06] MEDS: NORMAL SALINE NASAL 45 ML BOTTLE NS SCH (20:18)
[2022-08-06 21:15] VITALS: TEMP 98.5
[2022-08-07] MEDS: POLYVINYL ALCOHOL OPHT DROPS 15 ML BOTTLE EACHEYE SCH ×3 (05:17→22:00)
[2022-08-07] MEDS: PROTEIN SUPPLEMENT (PROSTAT) 30 ML LIQUID GT SCH ×3 (05:17→22:00)
[2022-08-07] MEDS: ARGININE/GLUTAMINE/CALCIUM BMB 1 EACH POWD.PACK GT SCH ×2 (05:17→17:37)
[2022-08-07] MEDS: FAMOTIDINE 20 MG TABLET GT SCH ×2 (05:17→17:37)
[2022-08-07 07:26] VITALS: TEMP 98
[2022-08-07] MEDS: HYDROGEN PEROXIDE 3% 118 ML BOTTLE TP SCH ×2 (08:15→20:07)
[2022-08-07] MEDS: ACETAMINOPHEN 650 MG/20.3 ML LIQUID UDC GT SCH ×2 (08:41→20:31)
[2022-08-07] MEDS: levETIRAcetam 500 MG/5 ML LIQUID UDC GT SCH ×2 (08:42→20:32)
[2022-08-07] MEDS: FUROSEMIDE 20 MG TABLET GT SCH (08:43)
[2022-08-07] MEDS: DIGOXIN 125 MCG TABLET GT SCH (08:43)
[2022-08-07] MEDS: COD LIVER OIL/ZINC OXIDE OINT 113 GM TUBE TP SCH ×2 (08:44→20:32)
[2022-08-07] MEDS: POTASSIUM CHLORIDE 40 MEQ/30 ML LIQUID UDC GT SCH (08:44)
[2022-08-07] MEDS: MEDIHONEY= THERAHONEY 1.5 OZ TUBE TOP SCH ×2 (08:44→20:32)
[2022-08-07] MEDS: CLOTRIMAZOLE 1% CREAM 30 GM TUBE TP SCH ×2 (08:44→20:32)
[2022-08-07] MEDS: REMEDY ESSENTIAL ZINC PASTE 113 GM TP SCH ×2 (08:45→20:32)
[2022-08-07 20:00] VITALS: BP 128/71; TEMP 98.8; O2SAT 100
[2022-08-07] MEDS: ACIDOPHILUS/BULGARICUS CHEW TAB GT SCH (20:31)
[2022-08-07] MEDS: ASCORBIC ACID 500 MG TABLET GT SCH (20:32)
[2022-08-07] MEDS: NORMAL SALINE NASAL 45 ML BOTTLE NS SCH (20:32)
[2022-08-08] MEDS: ARGININE/GLUTAMINE/CALCIUM BMB 1 EACH POWD.PACK GT SCH ×2 (06:30→17:31)
[2022-08-08] MEDS: PROTEIN SUPPLEMENT (PROSTAT) 30 ML LIQUID GT SCH ×3 (06:30→22:00)
[2022-08-08] MEDS: POLYVINYL ALCOHOL OPHT DROPS 15 ML BOTTLE EACHEYE SCH ×3 (06:30→22:00)
[2022-08-08] MEDS: FAMOTIDINE 20 MG TABLET GT SCH ×2 (06:30→17:31)
[2022-08-08 07:15] VITALS: TEMP 98.2
[2022-08-08 07:26] LABS: ALANINE AMINOTRANSFERASE 17 U/L (14-59); ALBUMIN 3.1 g/dL (3.4-5.0); ALKALINE PHOSPHATASE 158 U/L (50-136); ASPARTATE AMINOTRANSFERASE 25 U/L (15-37); BILIRUBIN,TOTAL 0.4 mg/dL (0.2-1.0); CALCIUM 9.3 mg/dL (8.5-10.1); CARBON DIOXIDE 30 mmol/L (21-32); CHLORIDE 107 mmol/L (98-107); CREATININE 0.5 mg/dL (0.6-1.3); GLUCOSE 110 mg/dL (74-106); MAGNESIUM 2.3 mg/dL (1.8-2.4); PHOSPHOROUS 3.8 mg/dL (2.5-4.9); POTASSIUM 3.6 mmol/L (3.5-5.1); SODIUM SERUM 143 mmol/L (136-145); TOTAL PROTEIN, SERUM 7.8 g/dL (6.4-8.2); UREA NITROGEN, BLOOD 44 mg/dL (7-18)
[2022-08-08 07:44] LABS: BASOPHILS % (AUTO) 0.6 % (0.0-2.0); EOSINOPHILS % (AUTO) 6.5 % (0.0-7.0); HEMATOCRIT 38.4 % (31.2-41.9); HEMOGLOBIN 12.6 g/dL (10.9-14.3); LYMPHOCYTES % (AUTO) 38.2 % (20.5-51.5); MEAN CORPUSCULAR HEMOGLOBIN 29.9 uug (24.7-32.8); MEAN CORPUSCULAR HGB CONC 33 g/dL (32.3-35.6); MEAN CORPUSCULAR VOLUME 91.4 fL (75.5-95.3); MONOCYTES % (AUTO) 10.4 % (0.0-11.0); NEUTROPHILS % (AUTO) 44.3 % (38.5-71.5); PLATELET COUNT (AUTO) 111 K/uL (179-408); RED CELL DISTRIBUTION WIDTH 15.9 % (12.3-17.7); WHITE BLOOD COUNT (AUTO) 4.3 K/uL (3.8-11.8)
[2022-08-08 07:45] LABS: EOSINOPHILS # (AUTO) 0.3 K/uL (0.0-0.7); LYMPHOCYTES # (AUTO) 1.6 K/uL (0.8-4.8); MONOCYTES # (AUTO) 0.4 K/uL (0.1-1.30); NEUTROPHILS # (AUTO) 1.9 K/uL (1.8-8.9)
[2022-08-08 07:57] LABS: DIFFERENTIAL COMMENT 1
[2022-08-08] MEDS: levETIRAcetam 500 MG/5 ML LIQUID UDC GT SCH ×2 (08:18→20:48)
[2022-08-08] MEDS: ACETAMINOPHEN 650 MG/20.3 ML LIQUID UDC GT SCH ×2 (08:18→20:48)
[2022-08-08] MEDS: POTASSIUM CHLORIDE 40 MEQ/30 ML LIQUID UDC GT SCH (08:18)
[2022-08-08] MEDS: DIGOXIN 125 MCG TABLET GT SCH (08:18)
[2022-08-08] MEDS: FUROSEMIDE 20 MG TABLET GT SCH (08:18)
[2022-08-08] MEDS: REMEDY ESSENTIAL ZINC PASTE 113 GM TP SCH ×2 (08:19→20:49)
[2022-08-08] MEDS: COD LIVER OIL/ZINC OXIDE OINT 113 GM TUBE TP SCH ×2 (08:19→20:48)
[2022-08-08] MEDS: MEDIHONEY= THERAHONEY 1.5 OZ TUBE TOP SCH ×2 (08:19→20:48)
[2022-08-08] MEDS: CLOTRIMAZOLE 1% CREAM 30 GM TUBE TP SCH ×2 (08:19→20:49)
[2022-08-08] MEDS: HYDROGEN PEROXIDE 3% 118 ML BOTTLE TP SCH ×2 (08:44→19:22)
[2022-08-08 11:15] VITALS: O2SAT 99
[2022-08-08 20:00] VITALS: TEMP 98.6
[2022-08-08] MEDS: ACIDOPHILUS/BULGARICUS CHEW TAB GT SCH (20:48)
[2022-08-08] MEDS: NORMAL SALINE NASAL 45 ML BOTTLE NS SCH (20:48)
[2022-08-08] MEDS: ASCORBIC ACID 500 MG TABLET GT SCH (20:48)
[2022-08-09] MEDS: FAMOTIDINE 20 MG TABLET GT SCH ×2 (06:25→17:22)
[2022-08-09] MEDS: POLYVINYL ALCOHOL OPHT DROPS 15 ML BOTTLE EACHEYE SCH ×3 (06:25→22:02)
[2022-08-09] MEDS: ARGININE/GLUTAMINE/CALCIUM BMB 1 EACH POWD.PACK GT SCH ×2 (06:25→17:22)
[2022-08-09] MEDS: PROTEIN SUPPLEMENT (PROSTAT) 30 ML LIQUID GT SCH ×3 (06:25→22:02)
[2022-08-09 08:00] VITALS: TEMP 97.7
[2022-08-09] MEDS: HYDROGEN PEROXIDE 3% 118 ML BOTTLE TP SCH ×2 (08:06→18:47)
[2022-08-09] MEDS: ACETAMINOPHEN 650 MG/20.3 ML LIQUID UDC GT SCH ×2 (08:46→20:09)
[2022-08-09] MEDS: FUROSEMIDE 20 MG TABLET GT SCH (08:48)
[2022-08-09] MEDS: levETIRAcetam 500 MG/5 ML LIQUID UDC GT SCH ×2 (08:48→20:09)
[2022-08-09] MEDS: MEDIHONEY= THERAHONEY 1.5 OZ TUBE TOP SCH ×2 (08:48→20:09)
[2022-08-09] MEDS: POTASSIUM CHLORIDE 40 MEQ/30 ML LIQUID UDC GT SCH (08:48)
[2022-08-09] MEDS: DIGOXIN 125 MCG TABLET GT SCH (08:48)
[2022-08-09] MEDS: REMEDY ESSENTIAL ZINC PASTE 113 GM TP SCH ×2 (08:48→20:09)
[2022-08-09] MEDS: COD LIVER OIL/ZINC OXIDE OINT 113 GM TUBE TP SCH ×2 (08:48→20:09)
[2022-08-09] MEDS: CLOTRIMAZOLE 1% CREAM 30 GM TUBE TP SCH ×2 (08:48→20:09)
[2022-08-09] MEDS ORDERED: SERTRALINE HCL 50 MG TABLET PO SCH (15:00)
[2022-08-09] MEDS: GLUCERNA 1.2 1000ML LIQUID GT PRN (15:08)
[2022-08-09] MEDS ORDERED: SERTRALINE HCL 50 MG TABLET GT SCH (17:00)
[2022-08-09] MEDS: ASCORBIC ACID 500 MG TABLET GT SCH (20:09)
[2022-08-09] MEDS: ACIDOPHILUS/BULGARICUS CHEW TAB GT SCH (20:09)
[2022-08-09] MEDS: NORMAL SALINE NASAL 45 ML BOTTLE NS SCH (20:09)
[2022-08-09 20:14] VITALS: BP 147/66; TEMP 97.6; O2SAT 100
[2022-08-10] MEDS: FAMOTIDINE 20 MG TABLET GT SCH ×2 (05:21→17:48)
[2022-08-10] MEDS: ARGININE/GLUTAMINE/CALCIUM BMB 1 EACH POWD.PACK GT SCH ×2 (05:21→17:48)
[2022-08-10] MEDS: PROTEIN SUPPLEMENT (PROSTAT) 30 ML LIQUID GT SCH ×3 (05:21→22:40)
[2022-08-10] MEDS: POLYVINYL ALCOHOL OPHT DROPS 15 ML BOTTLE EACHEYE SCH ×3 (05:21→22:40)
[2022-08-10 07:44] VITALS: TEMP 97.3
[2022-08-10] MEDS: ACETAMINOPHEN 650 MG/20.3 ML LIQUID UDC GT SCH ×2 (08:30→20:47)
[2022-08-10] MEDS: CLOTRIMAZOLE 1% CREAM 30 GM TUBE TP SCH ×2 (09:00→20:50)
[2022-08-10] MEDS: levETIRAcetam 500 MG/5 ML LIQUID UDC GT SCH ×2 (09:00→20:50)
[2022-08-10] MEDS: REMEDY ESSENTIAL ZINC PASTE 113 GM TP SCH ×2 (09:00→20:50)
[2022-08-10] MEDS: COD LIVER OIL/ZINC OXIDE OINT 113 GM TUBE TP SCH ×2 (09:00→20:50)
[2022-08-10] MEDS: DIGOXIN 125 MCG TABLET GT SCH (09:00)
[2022-08-10] MEDS: FUROSEMIDE 20 MG TABLET GT SCH (09:00)
[2022-08-10] MEDS: MEDIHONEY= THERAHONEY 1.5 OZ TUBE TOP SCH ×2 (09:00→20:50)
[2022-08-10] MEDS: SERTRALINE HCL 50 MG TABLET GT SCH (09:00)
[2022-08-10] MEDS: POTASSIUM CHLORIDE 40 MEQ/30 ML LIQUID UDC GT SCH (09:00)
[2022-08-10] MEDS: HYDROGEN PEROXIDE 3% 118 ML BOTTLE TP SCH ×2 (09:06→18:58)
[2022-08-10] MEDS: NORMAL SALINE NASAL 45 ML BOTTLE NS SCH (20:50)
[2022-08-10] MEDS: ASCORBIC ACID 500 MG TABLET GT SCH (20:50)
[2022-08-10] MEDS: ACIDOPHILUS/BULGARICUS CHEW TAB GT SCH (20:50)
[2022-08-11 00:54] VITALS: TEMP 97.5
[2022-08-11] MEDS: ARGININE/GLUTAMINE/CALCIUM BMB 1 EACH POWD.PACK GT SCH ×2 (05:14→17:38)
[2022-08-11] MEDS: FAMOTIDINE 20 MG TABLET GT SCH ×2 (05:14→17:38)
[2022-08-11] MEDS: PROTEIN SUPPLEMENT (PROSTAT) 30 ML LIQUID GT SCH ×3 (05:14→21:51)
[2022-08-11] MEDS: POLYVINYL ALCOHOL OPHT DROPS 15 ML BOTTLE EACHEYE SCH ×3 (05:14→21:51)
[2022-08-11 07:51] VITALS: TEMP 97.2
[2022-08-11] MEDS: ACETAMINOPHEN 650 MG/20.3 ML LIQUID UDC GT SCH ×2 (08:19→20:30)
[2022-08-11] MEDS: levETIRAcetam 500 MG/5 ML LIQUID UDC GT SCH ×2 (08:19→21:51)
[2022-08-11] MEDS: FUROSEMIDE 20 MG TABLET GT SCH (08:20)
[2022-08-11] MEDS: DIGOXIN 125 MCG TABLET GT SCH (08:20)
[2022-08-11] MEDS: POTASSIUM CHLORIDE 40 MEQ/30 ML LIQUID UDC GT SCH (08:20)
[2022-08-11] MEDS: SERTRALINE HCL 50 MG TABLET GT SCH (08:21)
[2022-08-11] MEDS: COD LIVER OIL/ZINC OXIDE OINT 113 GM TUBE TP SCH ×2 (08:22→21:51)
[2022-08-11] MEDS: MEDIHONEY= THERAHONEY 1.5 OZ TUBE TOP SCH ×2 (08:22→21:51)
[2022-08-11] MEDS: CLOTRIMAZOLE 1% CREAM 30 GM TUBE TP SCH ×2 (08:23→21:51)
[2022-08-11] MEDS: REMEDY ESSENTIAL ZINC PASTE 113 GM TP SCH ×2 (08:23→21:51)
[2022-08-11] MEDS: HYDROGEN PEROXIDE 3% 118 ML BOTTLE TP SCH ×2 (09:00→19:07)
[2022-08-11 20:00] VITALS: TEMP 98.5
[2022-08-11] MEDS: ACIDOPHILUS/BULGARICUS CHEW TAB GT SCH (21:50)
[2022-08-11] MEDS: NORMAL SALINE NASAL 45 ML BOTTLE NS SCH (21:51)
[2022-08-11] MEDS: ASCORBIC ACID 500 MG TABLET GT SCH (21:51)
[2022-08-12] MEDS: GLUCERNA 1.2 1000ML LIQUID GT PRN (04:44)
[2022-08-12] MEDS: PROTEIN SUPPLEMENT (PROSTAT) 30 ML LIQUID GT SCH ×3 (05:03→21:32)
[2022-08-12] MEDS: POLYVINYL ALCOHOL OPHT DROPS 15 ML BOTTLE EACHEYE SCH ×3 (05:03→21:32)
[2022-08-12] MEDS: ARGININE/GLUTAMINE/CALCIUM BMB 1 EACH POWD.PACK GT SCH ×2 (05:03→17:18)
[2022-08-12] MEDS: FAMOTIDINE 20 MG TABLET GT SCH ×2 (05:03→17:18)
[2022-08-12] MEDS: HYDROGEN PEROXIDE 3% 118 ML BOTTLE TP SCH ×2 (07:00→19:15)
[2022-08-12 07:30] VITALS: TEMP 97.1
[2022-08-12] MEDS: ACETAMINOPHEN 650 MG/20.3 ML LIQUID UDC GT SCH ×2 (08:48→20:32)
[2022-08-12] MEDS: DIGOXIN 125 MCG TABLET GT SCH (08:48)
[2022-08-12] MEDS: levETIRAcetam 500 MG/5 ML LIQUID UDC GT SCH ×2 (08:48→20:32)
[2022-08-12] MEDS: FUROSEMIDE 20 MG TABLET GT SCH (08:48)
[2022-08-12] MEDS: POTASSIUM CHLORIDE 40 MEQ/30 ML LIQUID UDC GT SCH (08:49)
[2022-08-12] MEDS: REMEDY ESSENTIAL ZINC PASTE 113 GM TP SCH ×2 (08:50→20:33)
[2022-08-12] MEDS: SERTRALINE HCL 50 MG TABLET GT SCH (08:50)
[2022-08-12] MEDS ORDERED: MEDIHONEY= THERAHONEY 1.5 OZ TUBE TOP PRN (09:30)
[2022-08-12] MEDS ORDERED: CLOTRIMAZOLE 1% CREAM 30 GM TUBE TP PRN (09:45)
[2022-08-12] MEDS ORDERED: COD LIVER OIL/ZINC OXIDE OINT 113 GM TUBE TP PRN (09:45)
[2022-08-12] MEDS: CLOTRIMAZOLE 1% CREAM 30 GM TUBE TP SCH ×2 (10:00→20:33)
[2022-08-12] MEDS: MEDIHONEY= THERAHONEY 1.5 OZ TUBE TOP SCH ×2 (10:00→20:32)
[2022-08-12] MEDS: COD LIVER OIL/ZINC OXIDE OINT 113 GM TUBE TP SCH ×2 (10:00→20:33)
[2022-08-12 20:00] VITALS: TEMP 98.1
[2022-08-12] MEDS: ASCORBIC ACID 500 MG TABLET GT SCH (20:32)
[2022-08-12] MEDS: NORMAL SALINE NASAL 45 ML BOTTLE NS SCH (20:32)
[2022-08-12] MEDS: ACIDOPHILUS/BULGARICUS CHEW TAB GT SCH (20:32)
[2022-08-13] MEDS: PROTEIN SUPPLEMENT (PROSTAT) 30 ML LIQUID GT SCH ×3 (05:11→22:00)
[2022-08-13] MEDS: ARGININE/GLUTAMINE/CALCIUM BMB 1 EACH POWD.PACK GT SCH ×2 (05:11→17:03)
[2022-08-13] MEDS: FAMOTIDINE 20 MG TABLET GT SCH ×2 (05:11→17:03)
[2022-08-13] MEDS: POLYVINYL ALCOHOL OPHT DROPS 15 ML BOTTLE EACHEYE SCH ×3 (05:11→22:00)
[2022-08-13 07:38] VITALS: TEMP 97.1
[2022-08-13] MEDS: levETIRAcetam 500 MG/5 ML LIQUID UDC GT SCH ×2 (08:03→20:18)
[2022-08-13] MEDS: ACETAMINOPHEN 650 MG/20.3 ML LIQUID UDC GT SCH ×2 (08:03→20:18)
[2022-08-13] MEDS: FUROSEMIDE 20 MG TABLET GT SCH (08:04)
[2022-08-13] MEDS: DIGOXIN 125 MCG TABLET GT SCH (08:04)
[2022-08-13] MEDS: POTASSIUM CHLORIDE 40 MEQ/30 ML LIQUID UDC GT SCH (08:05)
[2022-08-13] MEDS: SERTRALINE HCL 50 MG TABLET GT SCH (08:05)
[2022-08-13] MEDS: MEDIHONEY= THERAHONEY 1.5 OZ TUBE TOP SCH ×2 (08:06→20:20)
[2022-08-13] MEDS: CLOTRIMAZOLE 1% CREAM 30 GM TUBE TP SCH ×2 (08:06→20:21)
[2022-08-13] MEDS: COD LIVER OIL/ZINC OXIDE OINT 113 GM TUBE TP SCH ×2 (08:06→20:20)
[2022-08-13] MEDS: REMEDY ESSENTIAL ZINC PASTE 113 GM TP SCH ×2 (08:06→20:21)
[2022-08-13] MEDS: HYDROGEN PEROXIDE 3% 118 ML BOTTLE TP SCH ×2 (08:50→19:00)
[2022-08-13] MEDS: GLUCERNA 1.2 1000ML LIQUID GT PRN (12:29)
[2022-08-13 20:00] VITALS: TEMP 98.4
[2022-08-13] MEDS: ASCORBIC ACID 500 MG TABLET GT SCH (20:18)
[2022-08-13] MEDS: ACIDOPHILUS/BULGARICUS CHEW TAB GT SCH (20:18)
[2022-08-13] MEDS: NORMAL SALINE NASAL 45 ML BOTTLE NS SCH (20:20)
[2022-08-14] MEDS: POLYVINYL ALCOHOL OPHT DROPS 15 ML BOTTLE EACHEYE SCH ×3 (05:57→21:05)
[2022-08-14] MEDS: FAMOTIDINE 20 MG TABLET GT SCH ×2 (05:57→18:08)
[2022-08-14] MEDS: ARGININE/GLUTAMINE/CALCIUM BMB 1 EACH POWD.PACK GT SCH ×2 (05:57→18:07)
[2022-08-14] MEDS: PROTEIN SUPPLEMENT (PROSTAT) 30 ML LIQUID GT SCH ×3 (05:57→21:05)
[2022-08-14] MEDS: HYDROGEN PEROXIDE 3% 118 ML BOTTLE TP SCH ×2 (07:23→20:52)
[2022-08-14 07:54] VITALS: TEMP 97.5
[2022-08-14] MEDS: ACETAMINOPHEN 650 MG/20.3 ML LIQUID UDC GT SCH ×2 (08:30→21:03)
[2022-08-14] MEDS: levETIRAcetam 500 MG/5 ML LIQUID UDC GT SCH ×2 (09:36→21:04)
[2022-08-14] MEDS: DIGOXIN 125 MCG TABLET GT SCH (09:40)
[2022-08-14] MEDS: FUROSEMIDE 20 MG TABLET GT SCH (09:42)
[2022-08-14] MEDS: POTASSIUM CHLORIDE 40 MEQ/30 ML LIQUID UDC GT SCH (09:43)
[2022-08-14] MEDS: COD LIVER OIL/ZINC OXIDE OINT 113 GM TUBE TP SCH ×2 (09:51→21:04)
[2022-08-14] MEDS: CLOTRIMAZOLE 1% CREAM 30 GM TUBE TP SCH ×2 (09:52→21:04)
[2022-08-14] MEDS: MEDIHONEY= THERAHONEY 1.5 OZ TUBE TOP SCH ×2 (09:52→21:04)
[2022-08-14] MEDS: REMEDY ESSENTIAL ZINC PASTE 113 GM TP SCH ×2 (09:52→21:05)
[2022-08-14] MEDS: SERTRALINE HCL 25 MG TABLET GT SCH (10:05)
[2022-08-14] MEDS: GLUCERNA 1.2 1000ML LIQUID GT PRN (18:08)
[2022-08-14 21:01] VITALS: TEMP 98.2
[2022-08-14 21:03] VITALS: TEMP 97.7
[2022-08-14] MEDS: ASCORBIC ACID 500 MG TABLET GT SCH (21:04)
[2022-08-14] MEDS: NORMAL SALINE NASAL 45 ML BOTTLE NS SCH (21:04)
[2022-08-14] MEDS: ACIDOPHILUS/BULGARICUS CHEW TAB GT SCH (21:04)
[2022-08-15] MEDS: ARGININE/GLUTAMINE/CALCIUM BMB 1 EACH POWD.PACK GT SCH ×2 (06:16→17:06)
[2022-08-15] MEDS: FAMOTIDINE 20 MG TABLET GT SCH ×2 (06:16→17:06)
[2022-08-15] MEDS: PROTEIN SUPPLEMENT (PROSTAT) 30 ML LIQUID GT SCH ×3 (06:16→22:00)
[2022-08-15] MEDS: POLYVINYL ALCOHOL OPHT DROPS 15 ML BOTTLE EACHEYE SCH ×3 (06:16→22:00)
[2022-08-15 07:25] VITALS: TEMP 98.4
[2022-08-15] MEDS: DIGOXIN 125 MCG TABLET GT SCH (08:14)
[2022-08-15] MEDS: levETIRAcetam 500 MG/5 ML LIQUID UDC GT SCH ×2 (08:14→20:00)
[2022-08-15] MEDS: ACETAMINOPHEN 650 MG/20.3 ML LIQUID UDC GT SCH ×2 (08:14→20:00)
[2022-08-15] MEDS: FUROSEMIDE 20 MG TABLET GT SCH (08:14)
[2022-08-15] MEDS: MEDIHONEY= THERAHONEY 1.5 OZ TUBE TOP SCH ×2 (08:15→20:00)
[2022-08-15] MEDS: REMEDY ESSENTIAL ZINC PASTE 113 GM TP SCH ×2 (08:15→20:00)
[2022-08-15] MEDS: COD LIVER OIL/ZINC OXIDE OINT 113 GM TUBE TP SCH ×2 (08:15→20:00)
[2022-08-15] MEDS: POTASSIUM CHLORIDE 40 MEQ/30 ML LIQUID UDC GT SCH (08:15)
[2022-08-15] MEDS: CLOTRIMAZOLE 1% CREAM 30 GM TUBE TP SCH ×2 (08:15→20:00)
[2022-08-15] MEDS: SERTRALINE HCL 25 MG TABLET GT SCH (08:15)
[2022-08-15] MEDS: HYDROGEN PEROXIDE 3% 118 ML BOTTLE TP SCH ×2 (09:00→19:00)
[2022-08-15] MEDS: GLUCERNA 1.2 1000ML LIQUID GT PRN (18:26)
[2022-08-15] MEDS: NORMAL SALINE NASAL 45 ML BOTTLE NS SCH (20:00)
[2022-08-15] MEDS: ACIDOPHILUS/BULGARICUS CHEW TAB GT SCH (20:00)
[2022-08-15] MEDS: ASCORBIC ACID 500 MG TABLET GT SCH (20:00)
[2022-08-15 20:12] VITALS: TEMP 98.5
[2022-08-16] MEDS: ARGININE/GLUTAMINE/CALCIUM BMB 1 EACH POWD.PACK GT SCH ×2 (05:00→17:43)
[2022-08-16] MEDS: PROTEIN SUPPLEMENT (PROSTAT) 30 ML LIQUID GT SCH ×3 (05:00→22:00)
[2022-08-16] MEDS: FAMOTIDINE 20 MG TABLET GT SCH ×2 (05:00→17:43)
[2022-08-16] MEDS: POLYVINYL ALCOHOL OPHT DROPS 15 ML BOTTLE EACHEYE SCH ×3 (05:00→22:00)
[2022-08-16 07:18] VITALS: TEMP 97.3
[2022-08-16] MEDS: HYDROGEN PEROXIDE 3% 118 ML BOTTLE TP SCH ×2 (09:00→21:00)
[2022-08-16] MEDS: ACETAMINOPHEN 650 MG/20.3 ML LIQUID UDC GT SCH ×2 (09:18→19:59)
[2022-08-16] MEDS: levETIRAcetam 500 MG/5 ML LIQUID UDC GT SCH ×2 (09:18→20:00)
[2022-08-16] MEDS: SERTRALINE HCL 25 MG TABLET GT SCH (09:19)
[2022-08-16] MEDS: DIGOXIN 125 MCG TABLET GT SCH (09:19)
[2022-08-16] MEDS: FUROSEMIDE 20 MG TABLET GT SCH (09:19)
[2022-08-16] MEDS: POTASSIUM CHLORIDE 40 MEQ/30 ML LIQUID UDC GT SCH (09:19)
[2022-08-16] MEDS: REMEDY ESSENTIAL ZINC PASTE 113 GM TP SCH ×2 (10:00→20:01)
[2022-08-16] MEDS: MEDIHONEY= THERAHONEY 1.5 OZ TUBE TOP SCH ×2 (10:00→20:01)
[2022-08-16] MEDS: CLOTRIMAZOLE 1% CREAM 30 GM TUBE TP SCH ×2 (10:00→20:01)
[2022-08-16] MEDS: COD LIVER OIL/ZINC OXIDE OINT 113 GM TUBE TP SCH ×2 (10:00→20:01)
[2022-08-16 19:44] VITALS: TEMP 98.2
[2022-08-16] MEDS: ACIDOPHILUS/BULGARICUS CHEW TAB GT SCH (20:00)
[2022-08-16] MEDS: ASCORBIC ACID 500 MG TABLET GT SCH (20:00)
[2022-08-16] MEDS: NORMAL SALINE NASAL 45 ML BOTTLE NS SCH (20:01)
[2022-08-17] MEDS: FAMOTIDINE 20 MG TABLET GT SCH ×2 (05:00→17:38)
[2022-08-17] MEDS: ARGININE/GLUTAMINE/CALCIUM BMB 1 EACH POWD.PACK GT SCH ×2 (05:00→17:38)
[2022-08-17] MEDS: GLUCERNA 1.2 1000ML LIQUID GT PRN (05:00)
[2022-08-17] MEDS: POLYVINYL ALCOHOL OPHT DROPS 15 ML BOTTLE EACHEYE SCH ×3 (05:09→22:00)
[2022-08-17] MEDS: PROTEIN SUPPLEMENT (PROSTAT) 30 ML LIQUID GT SCH ×3 (05:09→22:00)
[2022-08-17 07:45] VITALS: TEMP 98.5
[2022-08-17] MEDS: HYDROGEN PEROXIDE 3% 118 ML BOTTLE TP SCH ×2 (08:07→19:05)
[2022-08-17] MEDS: ACETAMINOPHEN 650 MG/20.3 ML LIQUID UDC GT SCH ×2 (09:04→20:22)
[2022-08-17] MEDS: levETIRAcetam 500 MG/5 ML LIQUID UDC GT SCH ×2 (09:04→20:22)
[2022-08-17] MEDS: SERTRALINE HCL 25 MG TABLET GT SCH (09:05)
[2022-08-17] MEDS: DIGOXIN 125 MCG TABLET GT SCH (09:05)
[2022-08-17] MEDS: FUROSEMIDE 20 MG TABLET GT SCH (09:05)
[2022-08-17] MEDS: POTASSIUM CHLORIDE 40 MEQ/30 ML LIQUID UDC GT SCH (09:05)
[2022-08-17] MEDS: COD LIVER OIL/ZINC OXIDE OINT 113 GM TUBE TP SCH ×2 (10:00→20:25)
[2022-08-17] MEDS: REMEDY ESSENTIAL ZINC PASTE 113 GM TP SCH ×2 (10:00→20:26)
[2022-08-17] MEDS: CLOTRIMAZOLE 1% CREAM 30 GM TUBE TP SCH ×2 (10:00→20:26)
[2022-08-17] MEDS: MEDIHONEY= THERAHONEY 1.5 OZ TUBE TOP SCH ×2 (10:00→20:25)
[2022-08-17 20:00] VITALS: TEMP 98.1
[2022-08-17] MEDS: ASCORBIC ACID 500 MG TABLET GT SCH (20:22)
[2022-08-17] MEDS: ACIDOPHILUS/BULGARICUS CHEW TAB GT SCH (20:22)
[2022-08-17] MEDS: NORMAL SALINE NASAL 45 ML BOTTLE NS SCH (20:25)
[2022-08-18] MEDS: PROTEIN SUPPLEMENT (PROSTAT) 30 ML LIQUID GT SCH ×3 (05:01→22:00)
[2022-08-18] MEDS: POLYVINYL ALCOHOL OPHT DROPS 15 ML BOTTLE EACHEYE SCH ×3 (05:01→22:00)
[2022-08-18] MEDS: FAMOTIDINE 20 MG TABLET GT SCH ×2 (05:01→17:29)
[2022-08-18] MEDS: ARGININE/GLUTAMINE/CALCIUM BMB 1 EACH POWD.PACK GT SCH ×2 (05:01→17:28)
[2022-08-18 08:00] VITALS: TEMP 98.6
[2022-08-18] MEDS: ACETAMINOPHEN 650 MG/20.3 ML LIQUID UDC GT SCH ×2 (08:12→20:05)
[2022-08-18] MEDS: levETIRAcetam 500 MG/5 ML LIQUID UDC GT SCH ×2 (08:14→20:05)
[2022-08-18] MEDS: DIGOXIN 125 MCG TABLET GT SCH (08:16)
[2022-08-18] MEDS: FUROSEMIDE 20 MG TABLET GT SCH (08:17)
[2022-08-18] MEDS: REMEDY ESSENTIAL ZINC PASTE 113 GM TP SCH ×2 (08:18→20:07)
[2022-08-18] MEDS: SERTRALINE HCL 25 MG TABLET GT SCH (08:18)
[2022-08-18] MEDS: MEDIHONEY= THERAHONEY 1.5 OZ TUBE TOP SCH ×2 (08:18→20:07)
[2022-08-18] MEDS: POTASSIUM CHLORIDE 40 MEQ/30 ML LIQUID UDC GT SCH (08:18)
[2022-08-18] MEDS: COD LIVER OIL/ZINC OXIDE OINT 113 GM TUBE TP SCH ×2 (08:18→20:07)
[2022-08-18] MEDS: CLOTRIMAZOLE 1% CREAM 30 GM TUBE TP SCH ×2 (08:18→20:07)
[2022-08-18] MEDS: HYDROGEN PEROXIDE 3% 118 ML BOTTLE TP SCH ×2 (09:00→19:22)
[2022-08-18 20:00] VITALS: TEMP 98.1
[2022-08-18] MEDS: ACIDOPHILUS/BULGARICUS CHEW TAB GT SCH (20:05)
[2022-08-18] MEDS: ASCORBIC ACID 500 MG TABLET GT SCH (20:06)
[2022-08-18] MEDS: NORMAL SALINE NASAL 45 ML BOTTLE NS SCH (20:06)
[2022-08-19] MEDS: ARGININE/GLUTAMINE/CALCIUM BMB 1 EACH POWD.PACK GT SCH ×2 (04:58→17:32)
[2022-08-19] MEDS: FAMOTIDINE 20 MG TABLET GT SCH ×2 (04:58→17:32)
[2022-08-19] MEDS: PROTEIN SUPPLEMENT (PROSTAT) 30 ML LIQUID GT SCH ×3 (05:00→21:31)
[2022-08-19] MEDS: POLYVINYL ALCOHOL OPHT DROPS 15 ML BOTTLE EACHEYE SCH ×3 (05:00→21:31)
[2022-08-19 07:51] VITALS: TEMP 98.1
[2022-08-19] MEDS: HYDROGEN PEROXIDE 3% 118 ML BOTTLE TP SCH ×2 (08:25→18:55)
[2022-08-19] MEDS: DIGOXIN 125 MCG TABLET GT SCH (08:49)
[2022-08-19] MEDS: POTASSIUM CHLORIDE 40 MEQ/30 ML LIQUID UDC GT SCH (08:49)
[2022-08-19] MEDS: FUROSEMIDE 20 MG TABLET GT SCH (08:49)
[2022-08-19] MEDS: COD LIVER OIL/ZINC OXIDE OINT 113 GM TUBE TP SCH ×2 (08:49→21:30)
[2022-08-19] MEDS: levETIRAcetam 500 MG/5 ML LIQUID UDC GT SCH ×2 (08:49→21:30)
[2022-08-19] MEDS: ACETAMINOPHEN 650 MG/20.3 ML LIQUID UDC GT SCH ×2 (08:49→20:30)
[2022-08-19] MEDS: MEDIHONEY= THERAHONEY 1.5 OZ TUBE TOP SCH ×2 (08:49→21:30)
[2022-08-19] MEDS: SERTRALINE HCL 25 MG TABLET GT SCH (08:49)
[2022-08-19] MEDS: CLOTRIMAZOLE 1% CREAM 30 GM TUBE TP SCH ×2 (08:50→21:31)
[2022-08-19] MEDS: REMEDY ESSENTIAL ZINC PASTE 113 GM TP SCH ×2 (08:50→21:31)
[2022-08-19 20:00] VITALS: TEMP 98.1
[2022-08-19] MEDS: NORMAL SALINE NASAL 45 ML BOTTLE NS SCH (21:30)
[2022-08-19] MEDS: ACIDOPHILUS/BULGARICUS CHEW TAB GT SCH (21:30)
[2022-08-19] MEDS: ASCORBIC ACID 500 MG TABLET GT SCH (21:30)
[2022-08-20] MEDS: POLYVINYL ALCOHOL OPHT DROPS 15 ML BOTTLE EACHEYE SCH ×3 (05:21→21:27)
[2022-08-20] MEDS: FAMOTIDINE 20 MG TABLET GT SCH ×2 (05:21→17:15)
[2022-08-20] MEDS: ARGININE/GLUTAMINE/CALCIUM BMB 1 EACH POWD.PACK GT SCH ×2 (05:21→17:15)
[2022-08-20] MEDS: PROTEIN SUPPLEMENT (PROSTAT) 30 ML LIQUID GT SCH ×3 (05:21→21:27)
[2022-08-20 07:42] VITALS: TEMP 98.8
[2022-08-20] MEDS: HYDROGEN PEROXIDE 3% 118 ML BOTTLE TP SCH ×2 (08:19→19:10)
[2022-08-20] MEDS: ACETAMINOPHEN 650 MG/20.3 ML LIQUID UDC GT SCH ×2 (08:37→20:30)
[2022-08-20] MEDS: levETIRAcetam 500 MG/5 ML LIQUID UDC GT SCH ×2 (08:38→21:26)
[2022-08-20] MEDS: POTASSIUM CHLORIDE 40 MEQ/30 ML LIQUID UDC GT SCH (08:39)
[2022-08-20] MEDS: FUROSEMIDE 20 MG TABLET GT SCH (08:39)
[2022-08-20] MEDS: DIGOXIN 125 MCG TABLET GT SCH (08:39)
[2022-08-20] MEDS: CLOTRIMAZOLE 1% CREAM 30 GM TUBE TP SCH ×2 (08:41→21:27)
[2022-08-20] MEDS: COD LIVER OIL/ZINC OXIDE OINT 113 GM TUBE TP SCH ×2 (08:41→21:27)
[2022-08-20] MEDS: SERTRALINE HCL 25 MG TABLET GT SCH (08:41)
[2022-08-20] MEDS: MEDIHONEY= THERAHONEY 1.5 OZ TUBE TOP SCH ×2 (08:41→21:27)
[2022-08-20] MEDS: REMEDY ESSENTIAL ZINC PASTE 113 GM TP SCH ×2 (08:41→21:27)
[2022-08-20 20:00] VITALS: TEMP 98
[2022-08-20] MEDS: ACIDOPHILUS/BULGARICUS CHEW TAB GT SCH (21:25)
[2022-08-20] MEDS: ASCORBIC ACID 500 MG TABLET GT SCH (21:26)
[2022-08-20] MEDS: NORMAL SALINE NASAL 45 ML BOTTLE NS SCH (21:27)
[2022-08-21] MEDS: ARGININE/GLUTAMINE/CALCIUM BMB 1 EACH POWD.PACK GT SCH ×2 (05:12→17:37)
[2022-08-21] MEDS: FAMOTIDINE 20 MG TABLET GT SCH ×2 (05:12→17:37)
[2022-08-21] MEDS: PROTEIN SUPPLEMENT (PROSTAT) 30 ML LIQUID GT SCH ×3 (05:12→21:54)
[2022-08-21] MEDS: POLYVINYL ALCOHOL OPHT DROPS 15 ML BOTTLE EACHEYE SCH ×3 (05:12→21:54)
[2022-08-21 07:22] VITALS: TEMP 98.5
[2022-08-21] MEDS: levETIRAcetam 500 MG/5 ML LIQUID UDC GT SCH ×2 (08:11→20:14)
[2022-08-21] MEDS: ACETAMINOPHEN 650 MG/20.3 ML LIQUID UDC GT SCH ×2 (08:11→20:13)
[2022-08-21] MEDS: DIGOXIN 125 MCG TABLET GT SCH (08:12)
[2022-08-21] MEDS: FUROSEMIDE 20 MG TABLET GT SCH (08:12)
[2022-08-21] MEDS: POTASSIUM CHLORIDE 40 MEQ/30 ML LIQUID UDC GT SCH (08:12)
[2022-08-21] MEDS: SERTRALINE HCL 25 MG TABLET GT SCH (08:12)
[2022-08-21] MEDS: CLOTRIMAZOLE 1% CREAM 30 GM TUBE TP SCH ×2 (08:12→20:15)
[2022-08-21] MEDS: MEDIHONEY= THERAHONEY 1.5 OZ TUBE TOP SCH ×2 (08:12→20:14)
[2022-08-21] MEDS: REMEDY ESSENTIAL ZINC PASTE 113 GM TP SCH ×2 (08:12→20:15)
[2022-08-21] MEDS: COD LIVER OIL/ZINC OXIDE OINT 113 GM TUBE TP SCH ×2 (08:12→20:15)
[2022-08-21] MEDS: HYDROGEN PEROXIDE 3% 118 ML BOTTLE TP SCH ×2 (11:24→20:15)
[2022-08-21] MEDS: GLUCERNA 1.2 1000ML LIQUID GT PRN (18:01)
[2022-08-21 20:00] VITALS: TEMP 98.4
[2022-08-21] MEDS: ACIDOPHILUS/BULGARICUS CHEW TAB GT SCH (20:13)
[2022-08-21] MEDS: ASCORBIC ACID 500 MG TABLET GT SCH (20:14)
[2022-08-21] MEDS: NORMAL SALINE NASAL 45 ML BOTTLE NS SCH (20:14)
[2022-08-22] MEDS: POLYVINYL ALCOHOL OPHT DROPS 15 ML BOTTLE EACHEYE SCH ×3 (05:31→22:07)
[2022-08-22] MEDS: PROTEIN SUPPLEMENT (PROSTAT) 30 ML LIQUID GT SCH ×3 (05:31→22:07)
[2022-08-22] MEDS: FAMOTIDINE 20 MG TABLET GT SCH ×2 (05:31→17:50)
[2022-08-22] MEDS: ARGININE/GLUTAMINE/CALCIUM BMB 1 EACH POWD.PACK GT SCH ×2 (05:31→17:50)
[2022-08-22 07:21] VITALS: TEMP 98.6
[2022-08-22] MEDS: HYDROGEN PEROXIDE 3% 118 ML BOTTLE TP SCH ×2 (07:21→21:07)
[2022-08-22] MEDS: ACETAMINOPHEN 650 MG/20.3 ML LIQUID UDC GT SCH ×2 (07:44→20:14)
[2022-08-22] MEDS: SERTRALINE HCL 25 MG TABLET GT SCH (08:15)
[2022-08-22] MEDS: COD LIVER OIL/ZINC OXIDE OINT 113 GM TUBE TP SCH ×2 (08:15→20:14)
[2022-08-22] MEDS: FUROSEMIDE 20 MG TABLET GT SCH (08:15)
[2022-08-22] MEDS: MEDIHONEY= THERAHONEY 1.5 OZ TUBE TOP SCH ×2 (08:15→20:14)
[2022-08-22] MEDS: levETIRAcetam 500 MG/5 ML LIQUID UDC GT SCH ×2 (08:15→20:14)
[2022-08-22] MEDS: DIGOXIN 125 MCG TABLET GT SCH (08:15)
[2022-08-22] MEDS: POTASSIUM CHLORIDE 40 MEQ/30 ML LIQUID UDC GT SCH (08:15)
[2022-08-22] MEDS: CLOTRIMAZOLE 1% CREAM 30 GM TUBE TP SCH ×2 (08:16→20:15)
[2022-08-22] MEDS: REMEDY ESSENTIAL ZINC PASTE 113 GM TP SCH ×2 (08:16→20:15)
[2022-08-22 20:00] VITALS: TEMP 98.1
[2022-08-22] MEDS: ACIDOPHILUS/BULGARICUS CHEW TAB GT SCH (20:14)
[2022-08-22] MEDS: ASCORBIC ACID 500 MG TABLET GT SCH (20:14)
[2022-08-22] MEDS: NORMAL SALINE NASAL 45 ML BOTTLE NS SCH (20:14)
[2022-08-23] MEDS: GLUCERNA 1.2 1000ML LIQUID GT PRN (05:01)
[2022-08-23] MEDS: POLYVINYL ALCOHOL OPHT DROPS 15 ML BOTTLE EACHEYE SCH ×3 (05:01→22:39)
[2022-08-23] MEDS: FAMOTIDINE 20 MG TABLET GT SCH ×2 (05:01→18:48)
[2022-08-23] MEDS: PROTEIN SUPPLEMENT (PROSTAT) 30 ML LIQUID GT SCH ×3 (05:01→22:39)
[2022-08-23] MEDS: ARGININE/GLUTAMINE/CALCIUM BMB 1 EACH POWD.PACK GT SCH ×2 (05:01→18:48)
[2022-08-23 07:21] VITALS: TEMP 98.6
[2022-08-23] MEDS: ACETAMINOPHEN 650 MG/20.3 ML LIQUID UDC GT SCH ×2 (08:30→20:09)
[2022-08-23] MEDS: POTASSIUM CHLORIDE 40 MEQ/30 ML LIQUID UDC GT SCH (09:00)
[2022-08-23] MEDS: HYDROGEN PEROXIDE 3% 118 ML BOTTLE TP SCH ×2 (09:00→21:15)
[2022-08-23] MEDS: levETIRAcetam 500 MG/5 ML LIQUID UDC GT SCH ×2 (09:00→20:09)
[2022-08-23] MEDS: MEDIHONEY= THERAHONEY 1.5 OZ TUBE TOP SCH ×2 (09:00→20:10)
[2022-08-23] MEDS: REMEDY ESSENTIAL ZINC PASTE 113 GM TP SCH ×2 (09:00→20:11)
[2022-08-23] MEDS: COD LIVER OIL/ZINC OXIDE OINT 113 GM TUBE TP SCH ×2 (09:00→20:10)
[2022-08-23] MEDS: CLOTRIMAZOLE 1% CREAM 30 GM TUBE TP SCH ×2 (09:00→20:11)
[2022-08-23] MEDS: DIGOXIN 125 MCG TABLET GT SCH (09:00)
[2022-08-23] MEDS: SERTRALINE HCL 25 MG TABLET GT SCH (09:00)
[2022-08-23] MEDS: FUROSEMIDE 20 MG TABLET GT SCH (09:00)
[2022-08-23 20:00] VITALS: TEMP 98.4
[2022-08-23] MEDS: ACIDOPHILUS/BULGARICUS CHEW TAB GT SCH (20:09)
[2022-08-23] MEDS: ASCORBIC ACID 500 MG TABLET GT SCH (20:10)
[2022-08-23] MEDS: NORMAL SALINE NASAL 45 ML BOTTLE NS SCH (20:10)
[2022-08-24] MEDS: POLYVINYL ALCOHOL OPHT DROPS 15 ML BOTTLE EACHEYE SCH ×3 (05:02→21:43)
[2022-08-24] MEDS: PROTEIN SUPPLEMENT (PROSTAT) 30 ML LIQUID GT SCH ×3 (05:03→21:43)
[2022-08-24] MEDS: FAMOTIDINE 20 MG TABLET GT SCH ×2 (05:03→18:13)
[2022-08-24] MEDS: ARGININE/GLUTAMINE/CALCIUM BMB 1 EACH POWD.PACK GT SCH ×2 (05:03→18:13)
[2022-08-24 07:32] VITALS: TEMP 98
[2022-08-24] MEDS: ACETAMINOPHEN 650 MG/20.3 ML LIQUID UDC GT SCH ×2 (08:18→20:09)
[2022-08-24] MEDS: levETIRAcetam 500 MG/5 ML LIQUID UDC GT SCH ×2 (08:18→20:09)
[2022-08-24] MEDS: SERTRALINE HCL 25 MG TABLET GT SCH (08:19)
[2022-08-24] MEDS: CLOTRIMAZOLE 1% CREAM 30 GM TUBE TP SCH ×2 (08:19→20:10)
[2022-08-24] MEDS: COD LIVER OIL/ZINC OXIDE OINT 113 GM TUBE TP SCH ×2 (08:19→20:10)
[2022-08-24] MEDS: DIGOXIN 125 MCG TABLET GT SCH (08:19)
[2022-08-24] MEDS: FUROSEMIDE 20 MG TABLET GT SCH (08:19)
[2022-08-24] MEDS: HYDROGEN PEROXIDE 3% 118 ML BOTTLE TP SCH ×2 (08:19→20:51)
[2022-08-24] MEDS: MEDIHONEY= THERAHONEY 1.5 OZ TUBE TOP SCH ×2 (08:19→20:10)
[2022-08-24] MEDS: REMEDY ESSENTIAL ZINC PASTE 113 GM TP SCH ×2 (08:19→20:10)
[2022-08-24] MEDS: POTASSIUM CHLORIDE 40 MEQ/30 ML LIQUID UDC GT SCH (08:19)
[2022-08-24 20:00] VITALS: TEMP 98.6
[2022-08-24] MEDS: ACIDOPHILUS/BULGARICUS CHEW TAB GT SCH (20:09)
[2022-08-24] MEDS: ASCORBIC ACID 500 MG TABLET GT SCH (20:09)
[2022-08-24] MEDS: NORMAL SALINE NASAL 45 ML BOTTLE NS SCH (20:09)
[2022-08-25] MEDS: PROTEIN SUPPLEMENT (PROSTAT) 30 ML LIQUID GT SCH ×3 (05:03→21:13)
[2022-08-25] MEDS: POLYVINYL ALCOHOL OPHT DROPS 15 ML BOTTLE EACHEYE SCH ×3 (05:03→21:13)
[2022-08-25] MEDS: FAMOTIDINE 20 MG TABLET GT SCH ×2 (05:03→17:01)
[2022-08-25] MEDS: ARGININE/GLUTAMINE/CALCIUM BMB 1 EACH POWD.PACK GT SCH ×2 (05:03→17:01)
[2022-08-25 07:42] VITALS: TEMP 98.3
[2022-08-25] MEDS: levETIRAcetam 500 MG/5 ML LIQUID UDC GT SCH ×2 (08:41→20:03)
[2022-08-25] MEDS: ACETAMINOPHEN 650 MG/20.3 ML LIQUID UDC GT SCH ×2 (08:41→20:03)
[2022-08-25] MEDS: POTASSIUM CHLORIDE 40 MEQ/30 ML LIQUID UDC GT SCH (08:42)
[2022-08-25] MEDS: FUROSEMIDE 20 MG TABLET GT SCH (08:42)
[2022-08-25] MEDS: COD LIVER OIL/ZINC OXIDE OINT 113 GM TUBE TP SCH ×2 (08:42→20:04)
[2022-08-25] MEDS: SERTRALINE HCL 25 MG TABLET GT SCH (08:42)
[2022-08-25] MEDS: MEDIHONEY= THERAHONEY 1.5 OZ TUBE TOP SCH ×2 (08:42→20:04)
[2022-08-25] MEDS: DIGOXIN 125 MCG TABLET GT SCH (08:42)
[2022-08-25] MEDS: CLOTRIMAZOLE 1% CREAM 30 GM TUBE TP SCH ×2 (08:43→20:04)
[2022-08-25] MEDS: REMEDY ESSENTIAL ZINC PASTE 113 GM TP SCH ×2 (08:43→20:05)
[2022-08-25] MEDS: HYDROGEN PEROXIDE 3% 118 ML BOTTLE TP SCH ×2 (09:00→19:11)
[2022-08-25] MEDS: GLUCERNA 1.2 1000ML LIQUID GT PRN (17:01)
[2022-08-25 20:00] VITALS: TEMP 97.8
[2022-08-25] MEDS: ASCORBIC ACID 500 MG TABLET GT SCH (20:03)
[2022-08-25] MEDS: ACIDOPHILUS/BULGARICUS CHEW TAB GT SCH (20:03)
[2022-08-25] MEDS: NORMAL SALINE NASAL 45 ML BOTTLE NS SCH (20:04)
[2022-08-26] MEDS: ARGININE/GLUTAMINE/CALCIUM BMB 1 EACH POWD.PACK GT SCH ×2 (05:10→17:05)
[2022-08-26] MEDS: POLYVINYL ALCOHOL OPHT DROPS 15 ML BOTTLE EACHEYE SCH ×3 (05:10→22:00)
[2022-08-26] MEDS: FAMOTIDINE 20 MG TABLET GT SCH ×2 (05:10→17:05)
[2022-08-26] MEDS: PROTEIN SUPPLEMENT (PROSTAT) 30 ML LIQUID GT SCH ×3 (05:10→22:00)
[2022-08-26] MEDS: HYDROGEN PEROXIDE 3% 118 ML BOTTLE TP SCH ×2 (07:00→09:00)
[2022-08-26 07:37] VITALS: TEMP 97.8
[2022-08-26] MEDS: ACETAMINOPHEN 650 MG/20.3 ML LIQUID UDC GT SCH ×2 (08:09→20:31)
[2022-08-26] MEDS: levETIRAcetam 500 MG/5 ML LIQUID UDC GT SCH ×2 (09:24→20:31)
[2022-08-26] MEDS: REMEDY ESSENTIAL ZINC PASTE 113 GM TP SCH ×2 (09:25→20:31)
[2022-08-26] MEDS: CLOTRIMAZOLE 1% CREAM 30 GM TUBE TP SCH ×2 (09:25→20:31)
[2022-08-26] MEDS: POTASSIUM CHLORIDE 40 MEQ/30 ML LIQUID UDC GT SCH (09:25)
[2022-08-26] MEDS: COD LIVER OIL/ZINC OXIDE OINT 113 GM TUBE TP SCH ×2 (09:25→20:31)
[2022-08-26] MEDS: DIGOXIN 125 MCG TABLET GT SCH (09:25)
[2022-08-26] MEDS: MEDIHONEY= THERAHONEY 1.5 OZ TUBE TOP SCH ×2 (09:25→20:31)
[2022-08-26] MEDS: FUROSEMIDE 20 MG TABLET GT SCH (09:25)
[2022-08-26] MEDS: SERTRALINE HCL 25 MG TABLET GT SCH (09:25)
[2022-08-26] MEDS: NORMAL SALINE NASAL 45 ML BOTTLE NS SCH (20:31)
[2022-08-26] MEDS: ASCORBIC ACID 500 MG TABLET GT SCH (20:31)
[2022-08-26] MEDS: ACIDOPHILUS/BULGARICUS CHEW TAB GT SCH (20:31)
[2022-08-26] MEDS: GLUCERNA 1.2 1000ML LIQUID GT PRN (22:25)
[2022-08-26 22:51] VITALS: TEMP 99.8
[2022-08-27] MEDS: POLYVINYL ALCOHOL OPHT DROPS 15 ML BOTTLE EACHEYE SCH ×3 (05:57→21:10)
[2022-08-27] MEDS: ARGININE/GLUTAMINE/CALCIUM BMB 1 EACH POWD.PACK GT SCH ×2 (05:57→17:33)
[2022-08-27] MEDS: PROTEIN SUPPLEMENT (PROSTAT) 30 ML LIQUID GT SCH ×3 (05:57→21:10)
[2022-08-27] MEDS: FAMOTIDINE 20 MG TABLET GT SCH ×2 (05:57→17:33)
[2022-08-27 07:32] VITALS: TEMP 97.9
[2022-08-27] MEDS: ACETAMINOPHEN 650 MG/20.3 ML LIQUID UDC GT SCH ×2 (08:29→20:30)
[2022-08-27] MEDS: levETIRAcetam 500 MG/5 ML LIQUID UDC GT SCH ×2 (08:31→20:53)
[2022-08-27] MEDS: FUROSEMIDE 20 MG TABLET GT SCH (08:31)
[2022-08-27] MEDS: DIGOXIN 125 MCG TABLET GT SCH (08:31)
[2022-08-27] MEDS: SERTRALINE HCL 25 MG TABLET GT SCH (08:32)
[2022-08-27] MEDS: POTASSIUM CHLORIDE 40 MEQ/30 ML LIQUID UDC GT SCH (08:32)
[2022-08-27] MEDS: HYDROGEN PEROXIDE 3% 118 ML BOTTLE TP SCH ×2 (08:44→21:25)
[2022-08-27] MEDS: MEDIHONEY= THERAHONEY 1.5 OZ TUBE TOP SCH ×2 (09:00→20:54)
[2022-08-27] MEDS: COD LIVER OIL/ZINC OXIDE OINT 113 GM TUBE TP SCH ×2 (09:00→20:54)
[2022-08-27] MEDS: REMEDY ESSENTIAL ZINC PASTE 113 GM TP SCH ×2 (09:00→20:54)
[2022-08-27] MEDS: CLOTRIMAZOLE 1% CREAM 30 GM TUBE TP SCH ×2 (09:00→20:54)
[2022-08-27] MEDS: NORMAL SALINE NASAL 45 ML BOTTLE NS SCH (20:53)
[2022-08-27] MEDS: ACIDOPHILUS/BULGARICUS CHEW TAB GT SCH (20:53)
[2022-08-27] MEDS: ASCORBIC ACID 500 MG TABLET GT SCH (20:53)
[2022-08-27 22:41] VITALS: TEMP 98.7
[2022-08-28] MEDS: COD LIVER OIL/ZINC OXIDE OINT 113 GM TUBE TOP SCH ×3 (01:45→20:30)
[2022-08-28] MEDS: POLYVINYL ALCOHOL OPHT DROPS 15 ML BOTTLE EACHEYE SCH ×3 (05:52→22:32)
[2022-08-28] MEDS: ARGININE/GLUTAMINE/CALCIUM BMB 1 EACH POWD.PACK GT SCH ×2 (05:52→17:00)
[2022-08-28] MEDS: PROTEIN SUPPLEMENT (PROSTAT) 30 ML LIQUID GT SCH ×3 (05:53→22:32)
[2022-08-28] MEDS: FAMOTIDINE 20 MG TABLET GT SCH ×2 (05:53→17:00)
[2022-08-28] MEDS: ACETAMINOPHEN 650 MG/20.3 ML LIQUID UDC GT SCH ×2 (08:07→20:29)
[2022-08-28] MEDS: DIGOXIN 125 MCG TABLET GT SCH (08:07)
[2022-08-28] MEDS: levETIRAcetam 500 MG/5 ML LIQUID UDC GT SCH ×2 (08:07→20:29)
[2022-08-28] MEDS: POTASSIUM CHLORIDE 40 MEQ/30 ML LIQUID UDC GT SCH (08:08)
[2022-08-28] MEDS: FUROSEMIDE 20 MG TABLET GT SCH (08:08)
[2022-08-28] MEDS: SERTRALINE HCL 25 MG TABLET GT SCH (08:11)
[2022-08-28] MEDS: MEDIHONEY= THERAHONEY 1.5 OZ TUBE TOP SCH ×2 (08:11→20:30)
[2022-08-28] MEDS: COD LIVER OIL/ZINC OXIDE OINT 113 GM TUBE TP SCH ×2 (08:11→20:30)
[2022-08-28] MEDS: REMEDY ESSENTIAL ZINC PASTE 113 GM TP SCH ×2 (08:12→20:30)
[2022-08-28] MEDS: CLOTRIMAZOLE 1% CREAM 30 GM TUBE TP SCH ×2 (08:12→20:30)
[2022-08-28] MEDS: HYDROGEN PEROXIDE 3% 118 ML BOTTLE TP SCH ×2 (11:18→20:14)
[2022-08-28 20:26] VITALS: TEMP 98
[2022-08-28] MEDS: ACIDOPHILUS/BULGARICUS CHEW TAB GT SCH (20:29)
[2022-08-28] MEDS: ASCORBIC ACID 500 MG TABLET GT SCH (20:29)
[2022-08-28] MEDS: NORMAL SALINE NASAL 45 ML BOTTLE NS SCH (20:29)
[2022-08-29] MEDS: POLYVINYL ALCOHOL OPHT DROPS 15 ML BOTTLE EACHEYE SCH ×3 (06:43→21:22)
[2022-08-29] MEDS: ARGININE/GLUTAMINE/CALCIUM BMB 1 EACH POWD.PACK GT SCH ×2 (06:44→17:23)
[2022-08-29] MEDS: PROTEIN SUPPLEMENT (PROSTAT) 30 ML LIQUID GT SCH ×3 (06:44→21:22)
[2022-08-29] MEDS: FAMOTIDINE 20 MG TABLET GT SCH ×2 (06:44→17:24)
[2022-08-29 07:25] VITALS: TEMP 97.8
[2022-08-29] MEDS: levETIRAcetam 500 MG/5 ML LIQUID UDC GT SCH ×2 (08:22→21:22)
[2022-08-29] MEDS: ACETAMINOPHEN 650 MG/20.3 ML LIQUID UDC GT SCH ×2 (08:22→21:20)
[2022-08-29] MEDS: DIGOXIN 125 MCG TABLET GT SCH (08:23)
[2022-08-29] MEDS: FUROSEMIDE 20 MG TABLET GT SCH (08:23)
[2022-08-29] MEDS: SERTRALINE HCL 25 MG TABLET GT SCH (08:24)
[2022-08-29] MEDS: POTASSIUM CHLORIDE 40 MEQ/30 ML LIQUID UDC GT SCH (08:24)
[2022-08-29] MEDS: COD LIVER OIL/ZINC OXIDE OINT 113 GM TUBE TOP SCH ×2 (08:24→21:22)
[2022-08-29] MEDS: MEDIHONEY= THERAHONEY 1.5 OZ TUBE TOP SCH ×2 (08:24→21:22)
[2022-08-29] MEDS: COD LIVER OIL/ZINC OXIDE OINT 113 GM TUBE TP SCH ×2 (08:24→21:22)
[2022-08-29] MEDS: CLOTRIMAZOLE 1% CREAM 30 GM TUBE TP SCH ×2 (08:24→21:22)
[2022-08-29] MEDS: REMEDY ESSENTIAL ZINC PASTE 113 GM TP SCH ×2 (08:24→21:22)
[2022-08-29] MEDS: HYDROGEN PEROXIDE 3% 118 ML BOTTLE TP SCH ×2 (09:18→19:07)
[2022-08-29 19:39] VITALS: TEMP 98.9
[2022-08-29] MEDS: ASCORBIC ACID 500 MG TABLET GT SCH (21:22)
[2022-08-29] MEDS: ACIDOPHILUS/BULGARICUS CHEW TAB GT SCH (21:22)
[2022-08-29] MEDS: NORMAL SALINE NASAL 45 ML BOTTLE NS SCH (21:22)
[2022-08-30] MEDS: POLYVINYL ALCOHOL OPHT DROPS 15 ML BOTTLE EACHEYE SCH ×3 (05:08→22:53)
[2022-08-30] MEDS: FAMOTIDINE 20 MG TABLET GT SCH ×2 (05:08→17:45)
[2022-08-30] MEDS: PROTEIN SUPPLEMENT (PROSTAT) 30 ML LIQUID GT SCH ×3 (05:08→22:53)
[2022-08-30] MEDS: ARGININE/GLUTAMINE/CALCIUM BMB 1 EACH POWD.PACK GT SCH ×2 (05:08→17:45)
[2022-08-30 07:19] VITALS: TEMP 98.4
[2022-08-30] MEDS: ACETAMINOPHEN 650 MG/20.3 ML LIQUID UDC GT SCH ×2 (08:30→20:07)
[2022-08-30] MEDS: HYDROGEN PEROXIDE 3% 118 ML BOTTLE TP SCH ×2 (09:10→19:04)
[2022-08-30] MEDS: SERTRALINE HCL 25 MG TABLET GT SCH (09:55)
[2022-08-30] MEDS: levETIRAcetam 500 MG/5 ML LIQUID UDC GT SCH ×2 (09:55→20:07)
[2022-08-30] MEDS: FUROSEMIDE 20 MG TABLET GT SCH (09:55)
[2022-08-30] MEDS: POTASSIUM CHLORIDE 40 MEQ/30 ML LIQUID UDC GT SCH (09:55)
[2022-08-30] MEDS: DIGOXIN 125 MCG TABLET GT SCH (09:55)
[2022-08-30] MEDS: COD LIVER OIL/ZINC OXIDE OINT 113 GM TUBE TOP SCH ×2 (09:56→20:08)
[2022-08-30] MEDS: CLOTRIMAZOLE 1% CREAM 30 GM TUBE TP SCH ×2 (09:56→20:08)
[2022-08-30] MEDS: MEDIHONEY= THERAHONEY 1.5 OZ TUBE TOP SCH ×2 (09:56→20:08)
[2022-08-30] MEDS: COD LIVER OIL/ZINC OXIDE OINT 113 GM TUBE TP SCH ×2 (09:56→20:08)
[2022-08-30] MEDS: REMEDY ESSENTIAL ZINC PASTE 113 GM TP SCH ×2 (09:56→20:08)
[2022-08-30 20:00] VITALS: TEMP 98.1
[2022-08-30] MEDS: ASCORBIC ACID 500 MG TABLET GT SCH (20:07)
[2022-08-30] MEDS: ACIDOPHILUS/BULGARICUS CHEW TAB GT SCH (20:07)
[2022-08-30] MEDS: NORMAL SALINE NASAL 45 ML BOTTLE NS SCH (20:07)
[2022-08-30] MEDS: GLUCERNA 1.2 1000ML LIQUID GT PRN (22:54)
[2022-08-31] MEDS: POLYVINYL ALCOHOL OPHT DROPS 15 ML BOTTLE EACHEYE SCH ×3 (05:00→22:23)
[2022-08-31] MEDS: ARGININE/GLUTAMINE/CALCIUM BMB 1 EACH POWD.PACK GT SCH ×2 (05:00→17:48)
[2022-08-31] MEDS: PROTEIN SUPPLEMENT (PROSTAT) 30 ML LIQUID GT SCH ×3 (05:00→22:23)
[2022-08-31] MEDS: FAMOTIDINE 20 MG TABLET GT SCH ×2 (05:00→17:48)
[2022-08-31] MEDS: HYDROGEN PEROXIDE 3% 118 ML BOTTLE TP SCH ×2 (07:10→19:26)
[2022-08-31 07:18] VITALS: TEMP 98
[2022-08-31] MEDS: FUROSEMIDE 20 MG TABLET GT SCH (08:20)
[2022-08-31] MEDS: COD LIVER OIL/ZINC OXIDE OINT 113 GM TUBE TP SCH ×2 (08:20→21:00)
[2022-08-31] MEDS: COD LIVER OIL/ZINC OXIDE OINT 113 GM TUBE TOP SCH ×2 (08:20→21:00)
[2022-08-31] MEDS: levETIRAcetam 500 MG/5 ML LIQUID UDC GT SCH ×2 (08:20→21:00)
[2022-08-31] MEDS: SERTRALINE HCL 25 MG TABLET GT SCH (08:20)
[2022-08-31] MEDS: POTASSIUM CHLORIDE 40 MEQ/30 ML LIQUID UDC GT SCH (08:20)
[2022-08-31] MEDS: DIGOXIN 125 MCG TABLET GT SCH (08:20)
[2022-08-31] MEDS: ACETAMINOPHEN 650 MG/20.3 ML LIQUID UDC GT SCH ×2 (08:20→20:30)
[2022-08-31] MEDS: MEDIHONEY= THERAHONEY 1.5 OZ TUBE TOP SCH ×2 (08:20→21:00)
[2022-08-31] MEDS: CLOTRIMAZOLE 1% CREAM 30 GM TUBE TP SCH ×2 (08:22→21:00)
[2022-08-31] MEDS: REMEDY ESSENTIAL ZINC PASTE 113 GM TP SCH ×2 (08:24→21:00)
[2022-08-31 20:00] VITALS: TEMP 98.1
[2022-08-31] MEDS: ACIDOPHILUS/BULGARICUS CHEW TAB GT SCH (21:00)
[2022-08-31] MEDS: ASCORBIC ACID 500 MG TABLET GT SCH (21:00)
[2022-08-31] MEDS: NORMAL SALINE NASAL 45 ML BOTTLE NS SCH (21:00)
[2022-09-01] MEDS: GLUCERNA 1.2 1000ML LIQUID GT PRN (03:30)
[2022-09-01] MEDS: ARGININE/GLUTAMINE/CALCIUM BMB 1 EACH POWD.PACK GT SCH ×2 (06:05→17:41)
[2022-09-01] MEDS: PROTEIN SUPPLEMENT (PROSTAT) 30 ML LIQUID GT SCH ×3 (06:05→22:02)
[2022-09-01] MEDS: FAMOTIDINE 20 MG TABLET GT SCH ×2 (06:05→17:41)
[2022-09-01] MEDS: POLYVINYL ALCOHOL OPHT DROPS 15 ML BOTTLE EACHEYE SCH ×3 (06:05→22:02)
[2022-09-01 07:21] VITALS: TEMP 98
[2022-09-01] MEDS: HYDROGEN PEROXIDE 3% 118 ML BOTTLE TP SCH ×2 (09:00→19:08)
[2022-09-01] MEDS: POTASSIUM CHLORIDE 40 MEQ/30 ML LIQUID UDC GT SCH (09:08)
[2022-09-01] MEDS: FUROSEMIDE 20 MG TABLET GT SCH (09:08)
[2022-09-01] MEDS: ACETAMINOPHEN 650 MG/20.3 ML LIQUID UDC GT SCH ×2 (09:08→20:44)
[2022-09-01] MEDS: SERTRALINE HCL 25 MG TABLET GT SCH (09:08)
[2022-09-01] MEDS: DIGOXIN 125 MCG TABLET GT SCH (09:08)
[2022-09-01] MEDS: COD LIVER OIL/ZINC OXIDE OINT 113 GM TUBE TOP SCH ×2 (09:08→20:44)
[2022-09-01] MEDS: levETIRAcetam 500 MG/5 ML LIQUID UDC GT SCH ×2 (09:08→20:44)
[2022-09-01] MEDS: REMEDY ESSENTIAL ZINC PASTE 113 GM TP SCH ×2 (09:09→20:45)
[2022-09-01] MEDS: MEDIHONEY= THERAHONEY 1.5 OZ TUBE TOP SCH ×2 (09:09→20:44)
[2022-09-01] MEDS: CLOTRIMAZOLE 1% CREAM 30 GM TUBE TP SCH ×2 (09:09→20:44)
[2022-09-01] MEDS: COD LIVER OIL/ZINC OXIDE OINT 113 GM TUBE TP SCH ×2 (09:09→20:44)
[2022-09-01 19:54] VITALS: TEMP 98
[2022-09-01] MEDS: NORMAL SALINE NASAL 45 ML BOTTLE NS SCH (20:44)
[2022-09-01] MEDS: ASCORBIC ACID 500 MG TABLET GT SCH (20:44)
[2022-09-01] MEDS: ACIDOPHILUS/BULGARICUS CHEW TAB GT SCH (20:44)
[2022-09-02] MEDS: POLYVINYL ALCOHOL OPHT DROPS 15 ML BOTTLE EACHEYE SCH ×3 (05:20→22:00)
[2022-09-02] MEDS: FAMOTIDINE 20 MG TABLET GT SCH ×2 (05:20→18:43)
[2022-09-02] MEDS: ARGININE/GLUTAMINE/CALCIUM BMB 1 EACH POWD.PACK GT SCH ×2 (05:20→18:43)
[2022-09-02] MEDS: PROTEIN SUPPLEMENT (PROSTAT) 30 ML LIQUID GT SCH ×3 (05:21→22:00)
[2022-09-02] MEDS: GLUCERNA 1.2 1000ML LIQUID GT PRN (06:33)
[2022-09-02] MEDS ORDERED: LOPERAMIDE HCL 2 MG CAPSULE PO PRN (07:00)
[2022-09-02 07:33] VITALS: TEMP 97.4
[2022-09-02] MEDS: ACETAMINOPHEN 650 MG/20.3 ML LIQUID UDC GT SCH ×2 (08:30→21:04)
[2022-09-02] MEDS: SERTRALINE HCL 25 MG TABLET GT SCH (09:00)
[2022-09-02] MEDS: REMEDY ESSENTIAL ZINC PASTE 113 GM TP SCH ×2 (09:00→21:07)
[2022-09-02] MEDS: HYDROGEN PEROXIDE 3% 118 ML BOTTLE TP SCH ×2 (09:00→19:04)
[2022-09-02] MEDS: POTASSIUM CHLORIDE 40 MEQ/30 ML LIQUID UDC GT SCH (09:00)
[2022-09-02] MEDS: COD LIVER OIL/ZINC OXIDE OINT 113 GM TUBE TOP SCH ×2 (09:00→21:04)
[2022-09-02] MEDS: levETIRAcetam 500 MG/5 ML LIQUID UDC GT SCH ×2 (09:58→21:04)
[2022-09-02] MEDS: DIGOXIN 125 MCG TABLET GT SCH (09:59)
[2022-09-02] MEDS: FUROSEMIDE 20 MG TABLET GT SCH (09:59)
[2022-09-02] MEDS ORDERED: CLOTRIMAZOLE 1% CREAM 30 GM TUBE TP PRN (11:30)
[2022-09-02] MEDS ORDERED: MEDIHONEY= THERAHONEY 1.5 OZ TUBE TOP PRN (11:30)
[2022-09-02] MEDS ORDERED: COD LIVER OIL/ZINC OXIDE OINT 113 GM TUBE TP PRN (11:30)
[2022-09-02] MEDS: MEDIHONEY= THERAHONEY 1.5 OZ TUBE TOP SCH ×2 (12:00→21:06)
[2022-09-02] MEDS: CLOTRIMAZOLE 1% CREAM 30 GM TUBE TP SCH ×2 (12:00→21:07)
[2022-09-02 19:52] VITALS: TEMP 98.1
[2022-09-02] MEDS: NORMAL SALINE NASAL 45 ML BOTTLE NS SCH (21:03)
[2022-09-02] MEDS: ASCORBIC ACID 500 MG TABLET GT SCH (21:04)
[2022-09-02] MEDS: COD LIVER OIL/ZINC OXIDE OINT 113 GM TUBE TP SCH (21:06)
[2022-09-02] MEDS: ACIDOPHILUS/BULGARICUS CHEW TAB GT SCH (21:07)
[2022-09-03] MEDS: PROTEIN SUPPLEMENT (PROSTAT) 30 ML LIQUID GT SCH ×3 (05:09→21:56)
[2022-09-03] MEDS: POLYVINYL ALCOHOL OPHT DROPS 15 ML BOTTLE EACHEYE SCH ×3 (05:09→21:56)
[2022-09-03] MEDS: ARGININE/GLUTAMINE/CALCIUM BMB 1 EACH POWD.PACK GT SCH ×2 (05:09→17:31)
[2022-09-03] MEDS: FAMOTIDINE 20 MG TABLET GT SCH ×2 (05:09→17:31)
[2022-09-03 08:00] VITALS: TEMP 98.7
[2022-09-03] MEDS: HYDROGEN PEROXIDE 3% 118 ML BOTTLE TP SCH ×2 (08:50→19:14)
[2022-09-03] MEDS: ACETAMINOPHEN 650 MG/20.3 ML LIQUID UDC GT SCH ×2 (08:51→20:18)
[2022-09-03] MEDS: FUROSEMIDE 20 MG TABLET GT SCH (08:57)
[2022-09-03] MEDS: SERTRALINE HCL 25 MG TABLET GT SCH (08:57)
[2022-09-03] MEDS: DIGOXIN 125 MCG TABLET GT SCH (08:57)
[2022-09-03] MEDS: COD LIVER OIL/ZINC OXIDE OINT 113 GM TUBE TOP SCH ×2 (08:57→21:05)
[2022-09-03] MEDS: POTASSIUM CHLORIDE 40 MEQ/30 ML LIQUID UDC GT SCH (08:57)
[2022-09-03] MEDS: levETIRAcetam 500 MG/5 ML LIQUID UDC GT SCH ×2 (08:57→21:05)
[2022-09-03] MEDS: MEDIHONEY= THERAHONEY 1.5 OZ TUBE TOP SCH ×2 (08:57→21:06)
[2022-09-03] MEDS: COD LIVER OIL/ZINC OXIDE OINT 113 GM TUBE TP SCH ×2 (08:58→21:06)
[2022-09-03] MEDS: CLOTRIMAZOLE 1% CREAM 30 GM TUBE TP SCH ×2 (08:58→21:06)
[2022-09-03] MEDS: REMEDY ESSENTIAL ZINC PASTE 113 GM TP SCH ×2 (09:46→21:06)
[2022-09-03] MEDS: GLUCERNA 1.2 1000ML LIQUID GT PRN (09:47)
[2022-09-03 20:00] VITALS: TEMP 99
[2022-09-03] MEDS: NORMAL SALINE NASAL 45 ML BOTTLE NS SCH (20:18)
[2022-09-03] MEDS: ASCORBIC ACID 500 MG TABLET GT SCH (21:05)
[2022-09-03] MEDS: ACIDOPHILUS/BULGARICUS CHEW TAB GT SCH (21:05)
[2022-09-04] MEDS: FAMOTIDINE 20 MG TABLET GT SCH ×2 (05:14→18:06)
[2022-09-04] MEDS: PROTEIN SUPPLEMENT (PROSTAT) 30 ML LIQUID GT SCH ×3 (05:14→21:10)
[2022-09-04] MEDS: POLYVINYL ALCOHOL OPHT DROPS 15 ML BOTTLE EACHEYE SCH ×3 (05:14→21:10)
[2022-09-04] MEDS: ARGININE/GLUTAMINE/CALCIUM BMB 1 EACH POWD.PACK GT SCH ×2 (05:14→18:06)
[2022-09-04 07:27] VITALS: TEMP 98.8
[2022-09-04] MEDS: HYDROGEN PEROXIDE 3% 118 ML BOTTLE TP SCH ×2 (08:05→21:09)
[2022-09-04] MEDS: levETIRAcetam 500 MG/5 ML LIQUID UDC GT SCH ×2 (08:39→21:07)
[2022-09-04] MEDS: ACETAMINOPHEN 650 MG/20.3 ML LIQUID UDC GT SCH ×2 (08:39→21:07)
[2022-09-04] MEDS: SERTRALINE HCL 25 MG TABLET GT SCH (08:40)
[2022-09-04] MEDS: FUROSEMIDE 20 MG TABLET GT SCH (08:40)
[2022-09-04] MEDS: REMEDY ESSENTIAL ZINC PASTE 113 GM TP SCH ×2 (08:40→21:09)
[2022-09-04] MEDS: CLOTRIMAZOLE 1% CREAM 30 GM TUBE TP SCH ×2 (08:40→21:09)
[2022-09-04] MEDS: COD LIVER OIL/ZINC OXIDE OINT 113 GM TUBE TP SCH ×2 (08:40→21:08)
[2022-09-04] MEDS: MEDIHONEY= THERAHONEY 1.5 OZ TUBE TOP SCH ×2 (08:40→21:08)
[2022-09-04] MEDS: DIGOXIN 125 MCG TABLET GT SCH (08:40)
[2022-09-04] MEDS: COD LIVER OIL/ZINC OXIDE OINT 113 GM TUBE TOP SCH ×2 (08:40→21:07)
[2022-09-04] MEDS: POTASSIUM CHLORIDE 40 MEQ/30 ML LIQUID UDC GT SCH (08:40)
[2022-09-04 20:21] VITALS: TEMP 98
[2022-09-04] MEDS: NORMAL SALINE NASAL 45 ML BOTTLE NS SCH (21:07)
[2022-09-04] MEDS: ACIDOPHILUS/BULGARICUS CHEW TAB GT SCH (21:07)
[2022-09-04] MEDS: ASCORBIC ACID 500 MG TABLET GT SCH (21:07)
[2022-09-05] MEDS: PROTEIN SUPPLEMENT (PROSTAT) 30 ML LIQUID GT SCH ×3 (05:23→21:03)
[2022-09-05] MEDS: POLYVINYL ALCOHOL OPHT DROPS 15 ML BOTTLE EACHEYE SCH ×3 (05:23→21:03)
[2022-09-05] MEDS: FAMOTIDINE 20 MG TABLET GT SCH ×2 (05:23→17:07)
[2022-09-05] MEDS: ARGININE/GLUTAMINE/CALCIUM BMB 1 EACH POWD.PACK GT SCH ×2 (05:23→17:06)
[2022-09-05 07:20] VITALS: TEMP 98.9
[2022-09-05] MEDS: FUROSEMIDE 20 MG TABLET GT SCH (08:03)
[2022-09-05] MEDS: SERTRALINE HCL 25 MG TABLET GT SCH (08:03)
[2022-09-05] MEDS: DIGOXIN 125 MCG TABLET GT SCH (08:03)
[2022-09-05] MEDS: REMEDY ESSENTIAL ZINC PASTE 113 GM TP SCH ×2 (08:04→21:03)
[2022-09-05] MEDS: MEDIHONEY= THERAHONEY 1.5 OZ TUBE TOP SCH ×2 (08:04→21:02)
[2022-09-05] MEDS: COD LIVER OIL/ZINC OXIDE OINT 113 GM TUBE TOP SCH ×2 (08:04→21:02)
[2022-09-05] MEDS: CLOTRIMAZOLE 1% CREAM 30 GM TUBE TP SCH ×2 (08:04→21:03)
[2022-09-05] MEDS: COD LIVER OIL/ZINC OXIDE OINT 113 GM TUBE TP SCH ×2 (08:04→21:02)
[2022-09-05] MEDS: ACETAMINOPHEN 650 MG/20.3 ML LIQUID UDC GT SCH ×2 (08:05→21:01)
[2022-09-05] MEDS: HYDROGEN PEROXIDE 3% 118 ML BOTTLE TP SCH ×2 (08:06→20:59)
[2022-09-05] MEDS: POTASSIUM CHLORIDE 40 MEQ/30 ML LIQUID UDC GT SCH (08:07)
[2022-09-05] MEDS: levETIRAcetam 500 MG/5 ML LIQUID UDC GT SCH ×2 (08:07→21:02)
[2022-09-05 21:00] VITALS: TEMP 99
[2022-09-05] MEDS: ACIDOPHILUS/BULGARICUS CHEW TAB GT SCH (21:01)
[2022-09-05] MEDS: NORMAL SALINE NASAL 45 ML BOTTLE NS SCH (21:02)
[2022-09-05] MEDS: ASCORBIC ACID 500 MG TABLET GT SCH (21:02)
[2022-09-06] MEDS: ARGININE/GLUTAMINE/CALCIUM BMB 1 EACH POWD.PACK GT SCH ×2 (05:07→18:38)
[2022-09-06] MEDS: POLYVINYL ALCOHOL OPHT DROPS 15 ML BOTTLE EACHEYE SCH ×3 (05:07→22:38)
[2022-09-06] MEDS: FAMOTIDINE 20 MG TABLET GT SCH ×2 (05:08→18:38)
[2022-09-06] MEDS: PROTEIN SUPPLEMENT (PROSTAT) 30 ML LIQUID GT SCH ×3 (05:08→22:38)
[2022-09-06 07:27] VITALS: TEMP 98.7
[2022-09-06] MEDS: ACETAMINOPHEN 650 MG/20.3 ML LIQUID UDC GT SCH ×2 (08:30→21:01)
[2022-09-06] MEDS: levETIRAcetam 500 MG/5 ML LIQUID UDC GT SCH ×2 (09:00→21:01)
[2022-09-06] MEDS: CLOTRIMAZOLE 1% CREAM 30 GM TUBE TP SCH ×2 (09:00→21:01)
[2022-09-06] MEDS: SERTRALINE HCL 25 MG TABLET GT SCH (09:00)
[2022-09-06] MEDS: POTASSIUM CHLORIDE 40 MEQ/30 ML LIQUID UDC GT SCH (09:00)
[2022-09-06] MEDS: REMEDY ESSENTIAL ZINC PASTE 113 GM TP SCH ×2 (09:00→21:02)
[2022-09-06] MEDS: HYDROGEN PEROXIDE 3% 118 ML BOTTLE TP SCH ×2 (09:00→20:59)
[2022-09-06] MEDS: COD LIVER OIL/ZINC OXIDE OINT 113 GM TUBE TOP SCH ×2 (09:00→21:01)
[2022-09-06] MEDS: FUROSEMIDE 20 MG TABLET GT SCH (09:00)
[2022-09-06] MEDS: DIGOXIN 125 MCG TABLET GT SCH (09:00)
[2022-09-06] MEDS: MEDIHONEY= THERAHONEY 1.5 OZ TUBE TOP SCH ×2 (09:00→21:01)
[2022-09-06] MEDS: COD LIVER OIL/ZINC OXIDE OINT 113 GM TUBE TP SCH ×2 (09:00→21:01)
[2022-09-06 20:30] VITALS: TEMP 97.9
[2022-09-06] MEDS: ASCORBIC ACID 500 MG TABLET GT SCH (21:01)
[2022-09-06] MEDS: ACIDOPHILUS/BULGARICUS CHEW TAB GT SCH (21:01)
[2022-09-06] MEDS: NORMAL SALINE NASAL 45 ML BOTTLE NS SCH (21:01)
[2022-09-07] MEDS: GLUCERNA 1.2 1000ML LIQUID GT PRN (03:19)
[2022-09-07] MEDS: POLYVINYL ALCOHOL OPHT DROPS 15 ML BOTTLE EACHEYE SCH ×3 (05:32→21:38)
[2022-09-07] MEDS: FAMOTIDINE 20 MG TABLET GT SCH ×2 (05:33→17:40)
[2022-09-07] MEDS: PROTEIN SUPPLEMENT (PROSTAT) 30 ML LIQUID GT SCH ×3 (05:33→21:38)
[2022-09-07] MEDS: ARGININE/GLUTAMINE/CALCIUM BMB 1 EACH POWD.PACK GT SCH ×2 (05:33→17:39)
[2022-09-07] MEDS: HYDROGEN PEROXIDE 3% 118 ML BOTTLE TP SCH ×2 (07:20→21:15)
[2022-09-07 08:00] VITALS: TEMP 98
[2022-09-07] MEDS: ACETAMINOPHEN 650 MG/20.3 ML LIQUID UDC GT SCH ×2 (08:14→20:08)
[2022-09-07] MEDS: levETIRAcetam 500 MG/5 ML LIQUID UDC GT SCH ×2 (08:15→20:08)
[2022-09-07] MEDS: DIGOXIN 125 MCG TABLET GT SCH (08:19)
[2022-09-07] MEDS: FUROSEMIDE 20 MG TABLET GT SCH (08:20)
[2022-09-07] MEDS: POTASSIUM CHLORIDE 40 MEQ/30 ML LIQUID UDC GT SCH (08:21)
[2022-09-07] MEDS: SERTRALINE HCL 25 MG TABLET GT SCH (08:22)
[2022-09-07] MEDS: COD LIVER OIL/ZINC OXIDE OINT 113 GM TUBE TOP SCH ×2 (08:24→20:08)
[2022-09-07] MEDS: MEDIHONEY= THERAHONEY 1.5 OZ TUBE TOP SCH ×2 (08:26→20:08)
[2022-09-07] MEDS: COD LIVER OIL/ZINC OXIDE OINT 113 GM TUBE TP SCH ×2 (08:27→20:08)
[2022-09-07] MEDS: REMEDY ESSENTIAL ZINC PASTE 113 GM TP SCH ×2 (08:28→20:09)
[2022-09-07] MEDS: CLOTRIMAZOLE 1% CREAM 30 GM TUBE TP SCH ×2 (08:28→20:09)
[2022-09-07] MEDS: ACIDOPHILUS/BULGARICUS CHEW TAB GT SCH (20:08)
[2022-09-07] MEDS: NORMAL SALINE NASAL 45 ML BOTTLE NS SCH (20:08)
[2022-09-07] MEDS: ASCORBIC ACID 500 MG TABLET GT SCH (20:08)
[2022-09-07 21:00] VITALS: TEMP 98.5
[2022-09-08] MEDS: PROTEIN SUPPLEMENT (PROSTAT) 30 ML LIQUID GT SCH ×3 (05:49→22:15)
[2022-09-08] MEDS: FAMOTIDINE 20 MG TABLET GT SCH ×2 (05:49→18:06)
[2022-09-08] MEDS: POLYVINYL ALCOHOL OPHT DROPS 15 ML BOTTLE EACHEYE SCH ×3 (05:49→22:15)
[2022-09-08] MEDS: ARGININE/GLUTAMINE/CALCIUM BMB 1 EACH POWD.PACK GT SCH ×2 (05:49→18:06)
[2022-09-08 08:00] VITALS: TEMP 98.4
[2022-09-08] MEDS: ACETAMINOPHEN 650 MG/20.3 ML LIQUID UDC GT SCH ×2 (08:30→20:30)
[2022-09-08] MEDS: DIGOXIN 125 MCG TABLET GT SCH (09:00)
[2022-09-08] MEDS: FUROSEMIDE 20 MG TABLET GT SCH (09:00)
[2022-09-08] MEDS: SERTRALINE HCL 25 MG TABLET GT SCH (09:00)
[2022-09-08] MEDS: MEDIHONEY= THERAHONEY 1.5 OZ TUBE TOP SCH ×2 (09:00→21:00)
[2022-09-08] MEDS: REMEDY ESSENTIAL ZINC PASTE 113 GM TP SCH ×2 (09:00→21:00)
[2022-09-08] MEDS: levETIRAcetam 500 MG/5 ML LIQUID UDC GT SCH ×2 (09:00→21:00)
[2022-09-08] MEDS: POTASSIUM CHLORIDE 40 MEQ/30 ML LIQUID UDC GT SCH (09:00)
[2022-09-08] MEDS: CLOTRIMAZOLE 1% CREAM 30 GM TUBE TP SCH ×2 (09:00→21:00)
[2022-09-08] MEDS: COD LIVER OIL/ZINC OXIDE OINT 113 GM TUBE TP SCH ×2 (09:00→21:00)
[2022-09-08] MEDS: COD LIVER OIL/ZINC OXIDE OINT 113 GM TUBE TOP SCH ×2 (09:00→21:00)
[2022-09-08] MEDS: HYDROGEN PEROXIDE 3% 118 ML BOTTLE TP SCH ×2 (09:39→19:25)
[2022-09-08 11:20] VITALS: O2SAT 99
[2022-09-08 21:00] VITALS: TEMP 98.4
[2022-09-08] MEDS: ACIDOPHILUS/BULGARICUS CHEW TAB GT SCH (21:00)
[2022-09-08] MEDS: ASCORBIC ACID 500 MG TABLET GT SCH (21:00)
[2022-09-08] MEDS: NORMAL SALINE NASAL 45 ML BOTTLE NS SCH (21:00)
[2022-09-08] MEDS: GLUCERNA 1.2 1000ML LIQUID GT PRN (23:00)
[2022-09-09] MEDS: FAMOTIDINE 20 MG TABLET GT SCH ×2 (06:21→17:48)
[2022-09-09] MEDS: POLYVINYL ALCOHOL OPHT DROPS 15 ML BOTTLE EACHEYE SCH ×3 (06:21→21:00)
[2022-09-09] MEDS: PROTEIN SUPPLEMENT (PROSTAT) 30 ML LIQUID GT SCH ×3 (06:21→21:00)
[2022-09-09] MEDS: ARGININE/GLUTAMINE/CALCIUM BMB 1 EACH POWD.PACK GT SCH ×2 (06:21→17:47)
[2022-09-09 07:41] VITALS: TEMP 98.4
[2022-09-09] MEDS: ACETAMINOPHEN 650 MG/20.3 ML LIQUID UDC GT SCH ×2 (08:18→20:30)
[2022-09-09] MEDS: levETIRAcetam 500 MG/5 ML LIQUID UDC GT SCH ×2 (08:19→21:00)
[2022-09-09] MEDS: DIGOXIN 125 MCG TABLET GT SCH (08:20)
[2022-09-09] MEDS: FUROSEMIDE 20 MG TABLET GT SCH (08:20)
[2022-09-09] MEDS: POTASSIUM CHLORIDE 40 MEQ/30 ML LIQUID UDC GT SCH (08:21)
[2022-09-09] MEDS: SERTRALINE HCL 25 MG TABLET GT SCH (08:22)
[2022-09-09] MEDS: COD LIVER OIL/ZINC OXIDE OINT 113 GM TUBE TOP SCH ×2 (08:23→21:00)
[2022-09-09] MEDS: COD LIVER OIL/ZINC OXIDE OINT 113 GM TUBE TP SCH ×2 (08:25→21:00)
[2022-09-09] MEDS: CLOTRIMAZOLE 1% CREAM 30 GM TUBE TP SCH ×2 (08:25→21:00)
[2022-09-09] MEDS: MEDIHONEY= THERAHONEY 1.5 OZ TUBE TOP SCH ×2 (08:25→21:00)
[2022-09-09] MEDS: REMEDY ESSENTIAL ZINC PASTE 113 GM TP SCH ×2 (08:26→21:00)
[2022-09-09] MEDS: HYDROGEN PEROXIDE 3% 118 ML BOTTLE TP SCH ×2 (08:30→20:28)
[2022-09-09 20:10] VITALS: TEMP 99.1
[2022-09-09] MEDS: ACIDOPHILUS/BULGARICUS CHEW TAB GT SCH (21:00)
[2022-09-09] MEDS: ASCORBIC ACID 500 MG TABLET GT SCH (21:00)
[2022-09-09] MEDS: NORMAL SALINE NASAL 45 ML BOTTLE NS SCH (21:00)
[2022-09-10] MEDS: GLUCERNA 1.2 1000ML LIQUID GT PRN
[2022-09-10] MEDS: PROTEIN SUPPLEMENT (PROSTAT) 30 ML LIQUID GT SCH ×3 (05:03→21:10)
[2022-09-10] MEDS: POLYVINYL ALCOHOL OPHT DROPS 15 ML BOTTLE EACHEYE SCH ×3 (05:03→21:10)
[2022-09-10] MEDS: COD LIVER OIL/ZINC OXIDE OINT 113 GM TUBE TOP SCH ×5 (05:03→21:10)
[2022-09-10] MEDS: FAMOTIDINE 20 MG TABLET GT SCH ×2 (05:03→18:22)
[2022-09-10] MEDS: ARGININE/GLUTAMINE/CALCIUM BMB 1 EACH POWD.PACK GT SCH ×2 (05:03→18:22)
[2022-09-10 08:00] VITALS: TEMP 98.2
[2022-09-10] MEDS: ACETAMINOPHEN 650 MG/20.3 ML LIQUID UDC GT SCH ×2 (08:40→20:30)
[2022-09-10] MEDS: DIGOXIN 125 MCG TABLET GT SCH (08:43)
[2022-09-10] MEDS: levETIRAcetam 500 MG/5 ML LIQUID UDC GT SCH ×2 (08:43→21:09)
[2022-09-10] MEDS: FUROSEMIDE 20 MG TABLET GT SCH (08:43)
[2022-09-10] MEDS: POTASSIUM CHLORIDE 40 MEQ/30 ML LIQUID UDC GT SCH (08:45)
[2022-09-10] MEDS: SERTRALINE HCL 25 MG TABLET GT SCH (08:45)
[2022-09-10] MEDS: MEDIHONEY= THERAHONEY 1.5 OZ TUBE TOP SCH ×2 (08:49→21:10)
[2022-09-10] MEDS: CLOTRIMAZOLE 1% CREAM 30 GM TUBE TP SCH ×2 (08:50→21:10)
[2022-09-10] MEDS: REMEDY ESSENTIAL ZINC PASTE 113 GM TP SCH ×2 (08:50→21:10)
[2022-09-10] MEDS: COD LIVER OIL/ZINC OXIDE OINT 113 GM TUBE TP SCH ×2 (08:50→21:10)
[2022-09-10] MEDS: HYDROGEN PEROXIDE 3% 118 ML BOTTLE TP SCH ×2 (09:00→19:06)
[2022-09-10] MEDS: ACIDOPHILUS/BULGARICUS CHEW TAB GT SCH (21:09)
[2022-09-10] MEDS: NORMAL SALINE NASAL 45 ML BOTTLE NS SCH (21:09)
[2022-09-10] MEDS: ASCORBIC ACID 500 MG TABLET GT SCH (21:09)
[2022-09-10 22:55] VITALS: TEMP 98.5
[2022-09-11] MEDS: GLUCERNA 1.2 1000ML LIQUID GT PRN (05:00)
[2022-09-11] MEDS: FAMOTIDINE 20 MG TABLET GT SCH ×2 (06:00→17:18)
[2022-09-11] MEDS: ARGININE/GLUTAMINE/CALCIUM BMB 1 EACH POWD.PACK GT SCH ×2 (06:00→17:18)
[2022-09-11] MEDS: PROTEIN SUPPLEMENT (PROSTAT) 30 ML LIQUID GT SCH ×3 (06:00→22:00)
[2022-09-11] MEDS: POLYVINYL ALCOHOL OPHT DROPS 15 ML BOTTLE EACHEYE SCH ×3 (06:00→22:00)
[2022-09-11 08:00] VITALS: TEMP 98.3
[2022-09-11] MEDS: HYDROGEN PEROXIDE 3% 118 ML BOTTLE TP SCH ×2 (08:03→19:33)
[2022-09-11] MEDS: ACETAMINOPHEN 650 MG/20.3 ML LIQUID UDC GT SCH ×2 (08:30→20:23)
[2022-09-11] MEDS: levETIRAcetam 500 MG/5 ML LIQUID UDC GT SCH ×2 (09:48→20:23)
[2022-09-11] MEDS: DIGOXIN 125 MCG TABLET GT SCH (09:49)
[2022-09-11] MEDS: FUROSEMIDE 20 MG TABLET GT SCH (09:50)
[2022-09-11] MEDS: POTASSIUM CHLORIDE 40 MEQ/30 ML LIQUID UDC GT SCH (09:50)
[2022-09-11] MEDS: SERTRALINE HCL 25 MG TABLET GT SCH (09:51)
[2022-09-11] MEDS: MEDIHONEY= THERAHONEY 1.5 OZ TUBE TOP SCH ×2 (09:51→20:23)
[2022-09-11] MEDS: COD LIVER OIL/ZINC OXIDE OINT 113 GM TUBE TOP SCH ×4 (09:51→20:23)
[2022-09-11] MEDS: REMEDY ESSENTIAL ZINC PASTE 113 GM TP SCH ×2 (09:52→20:24)
[2022-09-11] MEDS: CLOTRIMAZOLE 1% CREAM 30 GM TUBE TP SCH ×2 (09:52→20:24)
[2022-09-11] MEDS: COD LIVER OIL/ZINC OXIDE OINT 113 GM TUBE TP SCH ×2 (09:52→20:23)
[2022-09-11 19:49] VITALS: TEMP 98.6
[2022-09-11] MEDS: NORMAL SALINE NASAL 45 ML BOTTLE NS SCH (20:23)
[2022-09-11] MEDS: ASCORBIC ACID 500 MG TABLET GT SCH (20:23)
[2022-09-11] MEDS: ACIDOPHILUS/BULGARICUS CHEW TAB GT SCH (20:23)
[2022-09-12] MEDS: ARGININE/GLUTAMINE/CALCIUM BMB 1 EACH POWD.PACK GT SCH ×2 (05:51→17:11)
[2022-09-12] MEDS: PROTEIN SUPPLEMENT (PROSTAT) 30 ML LIQUID GT SCH ×3 (05:51→22:00)
[2022-09-12] MEDS: FAMOTIDINE 20 MG TABLET GT SCH ×2 (05:51→17:12)
[2022-09-12] MEDS: POLYVINYL ALCOHOL OPHT DROPS 15 ML BOTTLE EACHEYE SCH ×3 (05:51→22:00)
[2022-09-12 06:56] LABS: BASOPHILS % (AUTO) 0.6 % (0.0-2.0); EOSINOPHILS # (AUTO) 0.3 K/uL (0.0-0.7); EOSINOPHILS % (AUTO) 5.6 % (0.0-7.0); HEMOGLOBIN 12.1 g/dL (10.9-14.3); LYMPHOCYTES # (AUTO) 1.7 K/uL (0.8-4.8); LYMPHOCYTES % (AUTO) 34.2 % (20.5-51.5); MEAN CORPUSCULAR HGB CONC 34 g/dL (32.3-35.6); MEAN CORPUSCULAR VOLUME 89.3 fL (75.5-95.3); MONOCYTES # (AUTO) 0.6 K/uL (0.1-1.30); NEUTROPHILS # (AUTO) 2.4 K/uL (1.8-8.9); NEUTROPHILS % (AUTO) 47.6 % (38.5-71.5); PLATELET COUNT (AUTO) 128 K/uL (179-408); RED BLOOD CELL COUNT(AUTO) 4.03 MIL/uL (3.63-4.92); RED CELL DISTRIBUTION WIDTH 15.1 % (12.3-17.7)
[2022-09-12 07:08] LABS: DIFFERENTIAL COMMENT 1
[2022-09-12 07:16] LABS: CALCIUM 8.9 mg/dL (8.5-10.1); CREATININE 0.6 mg/dL (0.6-1.3); MAGNESIUM 2.4 mg/dL (1.8-2.4); PHOSPHOROUS 3.5 mg/dL (2.5-4.9); POTASSIUM 3.6 mmol/L (3.5-5.1)
[2022-09-12 07:19] VITALS: TEMP 98.6
[2022-09-12] MEDS: HYDROGEN PEROXIDE 3% 118 ML BOTTLE TP SCH ×2 (08:08→19:10)
[2022-09-12] MEDS: ACETAMINOPHEN 650 MG/20.3 ML LIQUID UDC GT SCH ×2 (08:25→20:13)
[2022-09-12] MEDS: levETIRAcetam 500 MG/5 ML LIQUID UDC GT SCH ×2 (08:26→20:13)
[2022-09-12] MEDS: DIGOXIN 125 MCG TABLET GT SCH (08:28)
[2022-09-12] MEDS: FUROSEMIDE 20 MG TABLET GT SCH (08:29)
[2022-09-12] MEDS: SERTRALINE HCL 25 MG TABLET GT SCH (08:30)
[2022-09-12] MEDS: REMEDY ESSENTIAL ZINC PASTE 113 GM TP SCH ×2 (08:32→20:14)
[2022-09-12] MEDS: COD LIVER OIL/ZINC OXIDE OINT 113 GM TUBE TOP SCH ×4 (08:32→20:13)
[2022-09-12] MEDS: POTASSIUM CHLORIDE 40 MEQ/30 ML LIQUID UDC GT SCH (08:32)
[2022-09-12] MEDS: CLOTRIMAZOLE 1% CREAM 30 GM TUBE TP SCH ×2 (08:32→20:14)
[2022-09-12] MEDS: MEDIHONEY= THERAHONEY 1.5 OZ TUBE TOP SCH ×2 (08:32→20:13)
[2022-09-12] MEDS: COD LIVER OIL/ZINC OXIDE OINT 113 GM TUBE TP SCH ×2 (08:32→20:14)
[2022-09-12] MEDS: GLUCERNA 1.2 1000ML LIQUID GT PRN (19:28)
[2022-09-12 20:00] VITALS: TEMP 98.1
[2022-09-12] MEDS: ACIDOPHILUS/BULGARICUS CHEW TAB GT SCH (20:13)
[2022-09-12] MEDS: ASCORBIC ACID 500 MG TABLET GT SCH (20:13)
[2022-09-12] MEDS: NORMAL SALINE NASAL 45 ML BOTTLE NS SCH (20:13)
[2022-09-13] MEDS: POLYVINYL ALCOHOL OPHT DROPS 15 ML BOTTLE EACHEYE SCH ×3 (06:25→22:00)
[2022-09-13] MEDS: ARGININE/GLUTAMINE/CALCIUM BMB 1 EACH POWD.PACK GT SCH ×2 (06:25→17:15)
[2022-09-13] MEDS: PROTEIN SUPPLEMENT (PROSTAT) 30 ML LIQUID GT SCH ×3 (06:25→22:00)
[2022-09-13] MEDS: FAMOTIDINE 20 MG TABLET GT SCH ×2 (06:25→17:15)
[2022-09-13 07:13] VITALS: TEMP 98
[2022-09-13] MEDS: levETIRAcetam 500 MG/5 ML LIQUID UDC GT SCH ×2 (08:10→20:49)
[2022-09-13] MEDS: DIGOXIN 125 MCG TABLET GT SCH (08:11)
[2022-09-13] MEDS: COD LIVER OIL/ZINC OXIDE OINT 113 GM TUBE TOP SCH ×4 (08:12→20:50)
[2022-09-13] MEDS: FUROSEMIDE 20 MG TABLET GT SCH (08:12)
[2022-09-13] MEDS: POTASSIUM CHLORIDE 40 MEQ/30 ML LIQUID UDC GT SCH (08:12)
[2022-09-13] MEDS: SERTRALINE HCL 25 MG TABLET GT SCH (08:12)
[2022-09-13] MEDS: HYDROGEN PEROXIDE 3% 118 ML BOTTLE TP SCH ×2 (08:13→20:50)
[2022-09-13] MEDS: ACETAMINOPHEN 650 MG/20.3 ML LIQUID UDC GT SCH ×2 (09:00→20:46)
[2022-09-13] MEDS: CLOTRIMAZOLE 1% CREAM 30 GM TUBE TP SCH ×2 (09:54→20:50)
[2022-09-13] MEDS: COD LIVER OIL/ZINC OXIDE OINT 113 GM TUBE TP SCH ×2 (09:54→20:50)
[2022-09-13] MEDS: REMEDY ESSENTIAL ZINC PASTE 113 GM TP SCH ×2 (09:54→20:50)
[2022-09-13] MEDS: MEDIHONEY= THERAHONEY 1.5 OZ TUBE TOP SCH ×2 (09:54→20:50)
[2022-09-13 20:00] VITALS: TEMP 98.1
[2022-09-13] MEDS: ACIDOPHILUS/BULGARICUS CHEW TAB GT SCH (20:49)
[2022-09-13] MEDS: NORMAL SALINE NASAL 45 ML BOTTLE NS SCH (20:49)
[2022-09-13] MEDS: ASCORBIC ACID 500 MG TABLET GT SCH (20:49)
[2022-09-14] MEDS: ARGININE/GLUTAMINE/CALCIUM BMB 1 EACH POWD.PACK GT SCH ×2 (05:09→18:14)
[2022-09-14] MEDS: PROTEIN SUPPLEMENT (PROSTAT) 30 ML LIQUID GT SCH ×3 (05:09→22:40)
[2022-09-14] MEDS: FAMOTIDINE 20 MG TABLET GT SCH ×2 (05:09→18:14)
[2022-09-14] MEDS: POLYVINYL ALCOHOL OPHT DROPS 15 ML BOTTLE EACHEYE SCH ×3 (05:09→22:40)
[2022-09-14] MEDS: GLUCERNA 1.2 1000ML LIQUID GT PRN (05:10)
[2022-09-14 07:17] VITALS: TEMP 98.3
[2022-09-14] MEDS: POTASSIUM CHLORIDE 40 MEQ/30 ML LIQUID UDC GT SCH (08:03)
[2022-09-14] MEDS: SERTRALINE HCL 25 MG TABLET GT SCH (08:03)
[2022-09-14] MEDS: FUROSEMIDE 20 MG TABLET GT SCH (08:03)
[2022-09-14] MEDS: DIGOXIN 125 MCG TABLET GT SCH (08:03)
[2022-09-14] MEDS: levETIRAcetam 500 MG/5 ML LIQUID UDC GT SCH ×2 (08:03→20:07)
[2022-09-14] MEDS: REMEDY ESSENTIAL ZINC PASTE 113 GM TP SCH ×2 (08:04→20:08)
[2022-09-14] MEDS: HYDROGEN PEROXIDE 3% 118 ML BOTTLE TP SCH ×2 (08:11→20:08)
[2022-09-14] MEDS: ACETAMINOPHEN 650 MG/20.3 ML LIQUID UDC GT SCH ×2 (08:30→20:07)
[2022-09-14] MEDS: COD LIVER OIL/ZINC OXIDE OINT 113 GM TUBE TP SCH ×2 (09:00→20:08)
[2022-09-14] MEDS: COD LIVER OIL/ZINC OXIDE OINT 113 GM TUBE TOP SCH ×4 (09:00→20:07)
[2022-09-14] MEDS: MEDIHONEY= THERAHONEY 1.5 OZ TUBE TOP SCH ×2 (09:00→20:07)
[2022-09-14] MEDS: CLOTRIMAZOLE 1% CREAM 30 GM TUBE TP SCH ×2 (09:00→20:08)
[2022-09-14 20:00] VITALS: TEMP 98.1
[2022-09-14] MEDS: NORMAL SALINE NASAL 45 ML BOTTLE NS SCH (20:07)
[2022-09-14] MEDS: ACIDOPHILUS/BULGARICUS CHEW TAB GT SCH (20:07)
[2022-09-14] MEDS: ASCORBIC ACID 500 MG TABLET GT SCH (20:07)
[2022-09-15] MEDS: ARGININE/GLUTAMINE/CALCIUM BMB 1 EACH POWD.PACK GT SCH ×2 (05:04→17:24)
[2022-09-15] MEDS: POLYVINYL ALCOHOL OPHT DROPS 15 ML BOTTLE EACHEYE SCH ×3 (05:04→21:07)
[2022-09-15] MEDS: FAMOTIDINE 20 MG TABLET GT SCH ×2 (05:05→17:24)
[2022-09-15] MEDS: PROTEIN SUPPLEMENT (PROSTAT) 30 ML LIQUID GT SCH ×3 (05:05→21:14)
[2022-09-15 07:18] VITALS: TEMP 98.9
[2022-09-15] MEDS: ACETAMINOPHEN 650 MG/20.3 ML LIQUID UDC GT SCH ×2 (08:30→21:11)
[2022-09-15] MEDS: HYDROGEN PEROXIDE 3% 118 ML BOTTLE TP SCH ×2 (09:00→21:13)
[2022-09-15] MEDS: levETIRAcetam 500 MG/5 ML LIQUID UDC GT SCH ×2 (09:49→21:11)
[2022-09-15] MEDS: FUROSEMIDE 20 MG TABLET GT SCH (09:50)
[2022-09-15] MEDS: MEDIHONEY= THERAHONEY 1.5 OZ TUBE TOP SCH ×2 (09:50→21:12)
[2022-09-15] MEDS: CLOTRIMAZOLE 1% CREAM 30 GM TUBE TP SCH ×2 (09:50→21:13)
[2022-09-15] MEDS: COD LIVER OIL/ZINC OXIDE OINT 113 GM TUBE TOP SCH ×4 (09:50→21:12)
[2022-09-15] MEDS: DIGOXIN 125 MCG TABLET GT SCH (09:50)
[2022-09-15] MEDS: POTASSIUM CHLORIDE 40 MEQ/30 ML LIQUID UDC GT SCH (09:50)
[2022-09-15] MEDS: REMEDY ESSENTIAL ZINC PASTE 113 GM TP SCH ×2 (09:50→21:13)
[2022-09-15] MEDS: COD LIVER OIL/ZINC OXIDE OINT 113 GM TUBE TP SCH ×2 (09:50→21:12)
[2022-09-15] MEDS: SERTRALINE HCL 25 MG TABLET GT SCH (09:50)
[2022-09-15 20:00] VITALS: TEMP 98
[2022-09-15] MEDS: ASCORBIC ACID 500 MG TABLET GT SCH (21:11)
[2022-09-15] MEDS: ACIDOPHILUS/BULGARICUS CHEW TAB GT SCH (21:11)
[2022-09-15] MEDS: NORMAL SALINE NASAL 45 ML BOTTLE NS SCH (21:11)
[2022-09-16] MEDS: ARGININE/GLUTAMINE/CALCIUM BMB 1 EACH POWD.PACK GT SCH ×2 (05:48→17:00)
[2022-09-16] MEDS: POLYVINYL ALCOHOL OPHT DROPS 15 ML BOTTLE EACHEYE SCH ×3 (05:48→21:23)
[2022-09-16] MEDS: PROTEIN SUPPLEMENT (PROSTAT) 30 ML LIQUID GT SCH ×3 (05:48→21:23)
[2022-09-16] MEDS: FAMOTIDINE 20 MG TABLET GT SCH ×2 (05:48→17:00)
[2022-09-16] MEDS: HYDROGEN PEROXIDE 3% 118 ML BOTTLE TP SCH ×2 (07:45→20:23)
[2022-09-16 07:48] VITALS: TEMP 98.3
[2022-09-16] MEDS: levETIRAcetam 500 MG/5 ML LIQUID UDC GT SCH ×2 (08:07→21:14)
[2022-09-16] MEDS: ACETAMINOPHEN 650 MG/20.3 ML LIQUID UDC GT SCH ×2 (08:07→21:12)
[2022-09-16] MEDS: FUROSEMIDE 20 MG TABLET GT SCH (08:08)
[2022-09-16] MEDS: DIGOXIN 125 MCG TABLET GT SCH (08:08)
[2022-09-16] MEDS: SERTRALINE HCL 25 MG TABLET GT SCH (08:10)
[2022-09-16] MEDS: COD LIVER OIL/ZINC OXIDE OINT 113 GM TUBE TP SCH ×2 (08:10→21:23)
[2022-09-16] MEDS: POTASSIUM CHLORIDE 40 MEQ/30 ML LIQUID UDC GT SCH (08:10)
[2022-09-16] MEDS: MEDIHONEY= THERAHONEY 1.5 OZ TUBE TOP SCH ×2 (08:10→21:23)
[2022-09-16] MEDS: CLOTRIMAZOLE 1% CREAM 30 GM TUBE TP SCH ×2 (08:10→21:23)
[2022-09-16] MEDS: COD LIVER OIL/ZINC OXIDE OINT 113 GM TUBE TOP SCH ×4 (08:10→21:22)
[2022-09-16] MEDS: REMEDY ESSENTIAL ZINC PASTE 113 GM TP SCH ×2 (08:10→21:23)
[2022-09-16 20:00] VITALS: TEMP 98
[2022-09-16] MEDS: NORMAL SALINE NASAL 45 ML BOTTLE NS SCH (21:00)
[2022-09-16] MEDS: ACIDOPHILUS/BULGARICUS CHEW TAB GT SCH (21:12)
[2022-09-16] MEDS: ASCORBIC ACID 500 MG TABLET GT SCH (21:13)
[2022-09-17] MEDS: POLYVINYL ALCOHOL OPHT DROPS 15 ML BOTTLE EACHEYE SCH ×3 (04:44→22:42)
[2022-09-17] MEDS: FAMOTIDINE 20 MG TABLET GT SCH ×2 (05:03→18:03)
[2022-09-17] MEDS: PROTEIN SUPPLEMENT (PROSTAT) 30 ML LIQUID GT SCH ×3 (05:03→22:42)
[2022-09-17] MEDS: ARGININE/GLUTAMINE/CALCIUM BMB 1 EACH POWD.PACK GT SCH ×2 (05:03→18:02)
[2022-09-17] MEDS: HYDROGEN PEROXIDE 3% 118 ML BOTTLE TP SCH ×2 (07:30→19:09)
[2022-09-17 07:58] VITALS: TEMP 99
[2022-09-17] MEDS: ACETAMINOPHEN 650 MG/20.3 ML LIQUID UDC GT SCH ×2 (09:06→20:04)
[2022-09-17] MEDS: levETIRAcetam 500 MG/5 ML LIQUID UDC GT SCH ×2 (09:06→20:04)
[2022-09-17] MEDS: COD LIVER OIL/ZINC OXIDE OINT 113 GM TUBE TP SCH ×2 (09:07→20:06)
[2022-09-17] MEDS: POTASSIUM CHLORIDE 40 MEQ/30 ML LIQUID UDC GT SCH (09:07)
[2022-09-17] MEDS: FUROSEMIDE 20 MG TABLET GT SCH (09:07)
[2022-09-17] MEDS: REMEDY ESSENTIAL ZINC PASTE 113 GM TP SCH ×2 (09:07→20:06)
[2022-09-17] MEDS: MEDIHONEY= THERAHONEY 1.5 OZ TUBE TOP SCH ×2 (09:07→20:04)
[2022-09-17] MEDS: DIGOXIN 125 MCG TABLET GT SCH (09:07)
[2022-09-17] MEDS: COD LIVER OIL/ZINC OXIDE OINT 113 GM TUBE TOP SCH ×3 (09:07→20:04)
[2022-09-17] MEDS: SERTRALINE HCL 25 MG TABLET GT SCH (09:07)
[2022-09-17] MEDS: CLOTRIMAZOLE 1% CREAM 30 GM TUBE TP SCH ×2 (09:07→20:06)
[2022-09-17] MEDS: NORMAL SALINE NASAL 45 ML BOTTLE NS SCH (20:04)
[2022-09-17] MEDS: ACIDOPHILUS/BULGARICUS CHEW TAB GT SCH (20:04)
[2022-09-17] MEDS: ASCORBIC ACID 500 MG TABLET GT SCH (20:04)
[2022-09-17 20:47] VITALS: TEMP 98
[2022-09-18] MEDS: GLUCERNA 1.2 1000ML LIQUID GT PRN (02:30)
[2022-09-18] MEDS: FAMOTIDINE 20 MG TABLET GT SCH ×2 (05:16→17:43)
[2022-09-18] MEDS: ARGININE/GLUTAMINE/CALCIUM BMB 1 EACH POWD.PACK GT SCH ×2 (05:16→17:43)
[2022-09-18] MEDS: PROTEIN SUPPLEMENT (PROSTAT) 30 ML LIQUID GT SCH ×3 (05:16→22:46)
[2022-09-18] MEDS: POLYVINYL ALCOHOL OPHT DROPS 15 ML BOTTLE EACHEYE SCH ×3 (05:16→22:46)
[2022-09-18 07:25] VITALS: TEMP 98.9
[2022-09-18] MEDS: HYDROGEN PEROXIDE 3% 118 ML BOTTLE TP SCH ×2 (08:02→20:10)
[2022-09-18] MEDS: ACETAMINOPHEN 650 MG/20.3 ML LIQUID UDC GT SCH ×2 (08:42→20:09)
[2022-09-18] MEDS: levETIRAcetam 500 MG/5 ML LIQUID UDC GT SCH ×2 (08:42→20:09)
[2022-09-18] MEDS: MEDIHONEY= THERAHONEY 1.5 OZ TUBE TOP SCH ×2 (08:43→20:10)
[2022-09-18] MEDS: CLOTRIMAZOLE 1% CREAM 30 GM TUBE TP SCH ×2 (08:43→20:10)
[2022-09-18] MEDS: SERTRALINE HCL 25 MG TABLET GT SCH (08:43)
[2022-09-18] MEDS: REMEDY ESSENTIAL ZINC PASTE 113 GM TP SCH ×2 (08:43→20:10)
[2022-09-18] MEDS: POTASSIUM CHLORIDE 40 MEQ/30 ML LIQUID UDC GT SCH (08:43)
[2022-09-18] MEDS: FUROSEMIDE 20 MG TABLET GT SCH (08:43)
[2022-09-18] MEDS: COD LIVER OIL/ZINC OXIDE OINT 113 GM TUBE TP SCH ×2 (08:43→20:10)
[2022-09-18] MEDS: DIGOXIN 125 MCG TABLET GT SCH (08:43)
[2022-09-18] MEDS: COD LIVER OIL/ZINC OXIDE OINT 113 GM TUBE TOP SCH ×2 (08:43→20:10)
[2022-09-18] MEDS: ASCORBIC ACID 500 MG TABLET GT SCH (20:09)
[2022-09-18] MEDS: ACIDOPHILUS/BULGARICUS CHEW TAB GT SCH (20:09)
[2022-09-18] MEDS: NORMAL SALINE NASAL 45 ML BOTTLE NS SCH (20:09)
[2022-09-18 20:57] VITALS: TEMP 98.7
[2022-09-19] MEDS: ARGININE/GLUTAMINE/CALCIUM BMB 1 EACH POWD.PACK GT SCH ×2 (05:05→18:47)
[2022-09-19] MEDS: FAMOTIDINE 20 MG TABLET GT SCH ×2 (05:05→18:47)
[2022-09-19] MEDS: POLYVINYL ALCOHOL OPHT DROPS 15 ML BOTTLE EACHEYE SCH ×3 (05:05→22:10)
[2022-09-19] MEDS: PROTEIN SUPPLEMENT (PROSTAT) 30 ML LIQUID GT SCH ×3 (05:05→22:10)
[2022-09-19] MEDS: HYDROGEN PEROXIDE 3% 118 ML BOTTLE TP SCH ×2 (07:18→19:12)
[2022-09-19 07:20] VITALS: TEMP 98.2
[2022-09-19] MEDS: ACETAMINOPHEN 650 MG/20.3 ML LIQUID UDC GT SCH ×2 (08:30→20:03)
[2022-09-19] MEDS: levETIRAcetam 500 MG/5 ML LIQUID UDC GT SCH ×2 (09:45→20:03)
[2022-09-19] MEDS: DIGOXIN 125 MCG TABLET GT SCH (09:53)
[2022-09-19] MEDS: SERTRALINE HCL 25 MG TABLET GT SCH (09:53)
[2022-09-19] MEDS: FUROSEMIDE 20 MG TABLET GT SCH (09:53)
[2022-09-19] MEDS: POTASSIUM CHLORIDE 40 MEQ/30 ML LIQUID UDC GT SCH (09:53)
[2022-09-19] MEDS: REMEDY ESSENTIAL ZINC PASTE 113 GM TP SCH ×2 (09:54→20:04)
[2022-09-19] MEDS: COD LIVER OIL/ZINC OXIDE OINT 113 GM TUBE TOP SCH ×2 (09:54→20:04)
[2022-09-19] MEDS: MEDIHONEY= THERAHONEY 1.5 OZ TUBE TOP SCH ×2 (09:54→20:04)
[2022-09-19] MEDS: COD LIVER OIL/ZINC OXIDE OINT 113 GM TUBE TP SCH ×2 (09:54→20:04)
[2022-09-19] MEDS: CLOTRIMAZOLE 1% CREAM 30 GM TUBE TP SCH ×2 (09:54→20:04)
[2022-09-19 20:00] VITALS: TEMP 99.2
[2022-09-19] MEDS: ASCORBIC ACID 500 MG TABLET GT SCH (20:03)
[2022-09-19] MEDS: ACIDOPHILUS/BULGARICUS CHEW TAB GT SCH (20:03)
[2022-09-19] MEDS: NORMAL SALINE NASAL 45 ML BOTTLE NS SCH (20:04)
[2022-09-20] MEDS: GLUCERNA 1.2 1000ML LIQUID GT PRN (06:24)
[2022-09-20] MEDS: ARGININE/GLUTAMINE/CALCIUM BMB 1 EACH POWD.PACK GT SCH ×2 (06:24→17:37)
[2022-09-20] MEDS: PROTEIN SUPPLEMENT (PROSTAT) 30 ML LIQUID GT SCH ×3 (06:24→21:29)
[2022-09-20] MEDS: FAMOTIDINE 20 MG TABLET GT SCH ×2 (06:24→17:37)
[2022-09-20] MEDS: POLYVINYL ALCOHOL OPHT DROPS 15 ML BOTTLE EACHEYE SCH ×3 (06:24→21:29)
[2022-09-20 07:23] VITALS: TEMP 97.5
[2022-09-20] MEDS: HYDROGEN PEROXIDE 3% 118 ML BOTTLE TP SCH ×2 (09:00→19:14)
[2022-09-20] MEDS: ACETAMINOPHEN 650 MG/20.3 ML LIQUID UDC GT SCH ×2 (09:26→21:28)
[2022-09-20] MEDS: levETIRAcetam 500 MG/5 ML LIQUID UDC GT SCH ×2 (09:26→21:28)
[2022-09-20] MEDS: DIGOXIN 125 MCG TABLET GT SCH (09:28)
[2022-09-20] MEDS: FUROSEMIDE 20 MG TABLET GT SCH (09:28)
[2022-09-20] MEDS: POTASSIUM CHLORIDE 40 MEQ/30 ML LIQUID UDC GT SCH (09:29)
[2022-09-20] MEDS: CLOTRIMAZOLE 1% CREAM 30 GM TUBE TP SCH ×2 (09:29→21:29)
[2022-09-20] MEDS: COD LIVER OIL/ZINC OXIDE OINT 113 GM TUBE TOP SCH ×2 (09:29→21:28)
[2022-09-20] MEDS: REMEDY ESSENTIAL ZINC PASTE 113 GM TP SCH ×2 (09:29→21:29)
[2022-09-20] MEDS: COD LIVER OIL/ZINC OXIDE OINT 113 GM TUBE TP SCH ×2 (09:29→21:28)
[2022-09-20] MEDS: SERTRALINE HCL 25 MG TABLET GT SCH (09:29)
[2022-09-20] MEDS: MEDIHONEY= THERAHONEY 1.5 OZ TUBE TOP SCH ×2 (09:29→21:28)
[2022-09-20 20:00] VITALS: TEMP 99
[2022-09-20] MEDS: ACIDOPHILUS/BULGARICUS CHEW TAB GT SCH (21:28)
[2022-09-20] MEDS: NORMAL SALINE NASAL 45 ML BOTTLE NS SCH (21:28)
[2022-09-20] MEDS: ASCORBIC ACID 500 MG TABLET GT SCH (21:28)
[2022-09-21] MEDS: POLYVINYL ALCOHOL OPHT DROPS 15 ML BOTTLE EACHEYE SCH ×3 (06:15→22:06)
[2022-09-21] MEDS: ARGININE/GLUTAMINE/CALCIUM BMB 1 EACH POWD.PACK GT SCH ×2 (06:15→18:12)
[2022-09-21] MEDS: PROTEIN SUPPLEMENT (PROSTAT) 30 ML LIQUID GT SCH ×3 (06:16→22:06)
[2022-09-21] MEDS: FAMOTIDINE 20 MG TABLET GT SCH ×2 (06:16→18:12)
[2022-09-21] MEDS: ACETAMINOPHEN 650 MG/20.3 ML LIQUID UDC GT SCH ×2 (08:30→21:00)
[2022-09-21] MEDS: HYDROGEN PEROXIDE 3% 118 ML BOTTLE TP SCH ×2 (09:00→20:09)
[2022-09-21] MEDS: POTASSIUM CHLORIDE 40 MEQ/30 ML LIQUID UDC GT SCH (09:46)
[2022-09-21] MEDS: levETIRAcetam 500 MG/5 ML LIQUID UDC GT SCH ×2 (09:46→21:00)
[2022-09-21] MEDS: DIGOXIN 125 MCG TABLET GT SCH (09:46)
[2022-09-21] MEDS: SERTRALINE HCL 25 MG TABLET GT SCH (09:46)
[2022-09-21] MEDS: COD LIVER OIL/ZINC OXIDE OINT 113 GM TUBE TOP SCH ×2 (09:46→21:00)
[2022-09-21] MEDS: FUROSEMIDE 20 MG TABLET GT SCH (09:46)
[2022-09-21] MEDS: COD LIVER OIL/ZINC OXIDE OINT 113 GM TUBE TP SCH ×2 (09:47→21:00)
[2022-09-21] MEDS: REMEDY ESSENTIAL ZINC PASTE 113 GM TP SCH ×2 (09:47→21:00)
[2022-09-21] MEDS: CLOTRIMAZOLE 1% CREAM 30 GM TUBE TP SCH ×2 (09:47→21:00)
[2022-09-21] MEDS: MEDIHONEY= THERAHONEY 1.5 OZ TUBE TOP SCH ×2 (09:47→21:00)
[2022-09-21] MEDS: GLUCERNA 1.2 1000ML LIQUID GT PRN (13:23)
[2022-09-21 20:18] VITALS: TEMP 98.7
[2022-09-21] MEDS: ASCORBIC ACID 500 MG TABLET GT SCH (21:00)
[2022-09-21] MEDS: NORMAL SALINE NASAL 45 ML BOTTLE NS SCH (21:00)
[2022-09-21] MEDS: ACIDOPHILUS/BULGARICUS CHEW TAB GT SCH (21:00)
[2022-09-22] MEDS: POLYVINYL ALCOHOL OPHT DROPS 15 ML BOTTLE EACHEYE SCH ×3 (05:43→22:22)
[2022-09-22] MEDS: PROTEIN SUPPLEMENT (PROSTAT) 30 ML LIQUID GT SCH ×3 (05:44→22:22)
[2022-09-22] MEDS: ARGININE/GLUTAMINE/CALCIUM BMB 1 EACH POWD.PACK GT SCH ×2 (05:44→17:23)
[2022-09-22] MEDS: FAMOTIDINE 20 MG TABLET GT SCH ×2 (05:44→17:23)
[2022-09-22 08:00] VITALS: TEMP 97.5
[2022-09-22] MEDS: ACETAMINOPHEN 650 MG/20.3 ML LIQUID UDC GT SCH ×2 (08:35→20:30)
[2022-09-22] MEDS: levETIRAcetam 500 MG/5 ML LIQUID UDC GT SCH ×2 (08:37→21:48)
[2022-09-22] MEDS: DIGOXIN 125 MCG TABLET GT SCH (08:41)
[2022-09-22] MEDS: FUROSEMIDE 20 MG TABLET GT SCH (08:41)
[2022-09-22] MEDS: MEDIHONEY= THERAHONEY 1.5 OZ TUBE TOP SCH ×2 (08:43→21:49)
[2022-09-22] MEDS: COD LIVER OIL/ZINC OXIDE OINT 113 GM TUBE TP SCH ×2 (08:43→21:49)
[2022-09-22] MEDS: COD LIVER OIL/ZINC OXIDE OINT 113 GM TUBE TOP SCH ×2 (08:43→21:48)
[2022-09-22] MEDS: SERTRALINE HCL 25 MG TABLET GT SCH (08:43)
[2022-09-22] MEDS: CLOTRIMAZOLE 1% CREAM 30 GM TUBE TP SCH ×2 (08:43→21:49)
[2022-09-22] MEDS: POTASSIUM CHLORIDE 40 MEQ/30 ML LIQUID UDC GT SCH (08:43)
[2022-09-22] MEDS: REMEDY ESSENTIAL ZINC PASTE 113 GM TP SCH ×2 (08:44→21:49)
[2022-09-22] MEDS: HYDROGEN PEROXIDE 3% 118 ML BOTTLE TP SCH ×2 (09:23→21:22)
[2022-09-22] MEDS: GLUCERNA 1.2 1000ML LIQUID GT PRN (18:24)
[2022-09-22 20:46] VITALS: TEMP 98.1
[2022-09-22] MEDS: ACIDOPHILUS/BULGARICUS CHEW TAB GT SCH (21:48)
[2022-09-22] MEDS: ASCORBIC ACID 500 MG TABLET GT SCH (21:48)
[2022-09-22] MEDS: NORMAL SALINE NASAL 45 ML BOTTLE NS SCH (21:48)
[2022-09-23] MEDS: ARGININE/GLUTAMINE/CALCIUM BMB 1 EACH POWD.PACK GT SCH ×2 (05:30→17:32)
[2022-09-23] MEDS: PROTEIN SUPPLEMENT (PROSTAT) 30 ML LIQUID GT SCH ×3 (05:30→22:23)
[2022-09-23] MEDS: FAMOTIDINE 20 MG TABLET GT SCH ×2 (05:30→17:32)
[2022-09-23] MEDS: POLYVINYL ALCOHOL OPHT DROPS 15 ML BOTTLE EACHEYE SCH ×3 (05:30→22:23)
[2022-09-23 08:00] VITALS: TEMP 97.5
[2022-09-23] MEDS: HYDROGEN PEROXIDE 3% 118 ML BOTTLE TP SCH ×2 (09:00→21:03)
[2022-09-23] MEDS: ACETAMINOPHEN 650 MG/20.3 ML LIQUID UDC GT SCH ×2 (09:02→20:49)
[2022-09-23] MEDS: levETIRAcetam 500 MG/5 ML LIQUID UDC GT SCH ×2 (09:02→20:50)
[2022-09-23] MEDS: POTASSIUM CHLORIDE 40 MEQ/30 ML LIQUID UDC GT SCH (09:04)
[2022-09-23] MEDS: FUROSEMIDE 20 MG TABLET GT SCH (09:04)
[2022-09-23] MEDS: SERTRALINE HCL 25 MG TABLET GT SCH (09:04)
[2022-09-23] MEDS: COD LIVER OIL/ZINC OXIDE OINT 113 GM TUBE TOP SCH ×2 (09:06→20:51)
[2022-09-23] MEDS: COD LIVER OIL/ZINC OXIDE OINT 113 GM TUBE TP SCH ×2 (09:08→20:51)
[2022-09-23] MEDS: MEDIHONEY= THERAHONEY 1.5 OZ TUBE TOP SCH ×2 (09:08→20:51)
[2022-09-23] MEDS: REMEDY ESSENTIAL ZINC PASTE 113 GM TP SCH ×2 (09:09→20:51)
[2022-09-23] MEDS: CLOTRIMAZOLE 1% CREAM 30 GM TUBE TP SCH ×2 (09:09→20:51)
[2022-09-23] MEDS: DIGOXIN 125 MCG TABLET GT SCH (09:14)
[2022-09-23 20:28] VITALS: TEMP 97.9
[2022-09-23] MEDS: ACIDOPHILUS/BULGARICUS CHEW TAB GT SCH (20:49)
[2022-09-23] MEDS: ASCORBIC ACID 500 MG TABLET GT SCH (20:50)
[2022-09-23] MEDS: NORMAL SALINE NASAL 45 ML BOTTLE NS SCH (20:51)
[2022-09-24] MEDS: GLUCERNA 1.2 1000ML LIQUID GT PRN (01:30)
[2022-09-24] MEDS: PROTEIN SUPPLEMENT (PROSTAT) 30 ML LIQUID GT SCH ×3 (05:17→22:00)
[2022-09-24] MEDS: FAMOTIDINE 20 MG TABLET GT SCH ×2 (05:17→17:06)
[2022-09-24] MEDS: ARGININE/GLUTAMINE/CALCIUM BMB 1 EACH POWD.PACK GT SCH ×2 (05:17→17:05)
[2022-09-24] MEDS: POLYVINYL ALCOHOL OPHT DROPS 15 ML BOTTLE EACHEYE SCH ×3 (05:17→22:00)
[2022-09-24] MEDS: DIGOXIN 125 MCG TABLET GT SCH (08:46)
[2022-09-24] MEDS: levETIRAcetam 500 MG/5 ML LIQUID UDC GT SCH ×2 (08:46→20:27)
[2022-09-24] MEDS: ACETAMINOPHEN 650 MG/20.3 ML LIQUID UDC GT SCH ×2 (08:46→20:27)
[2022-09-24] MEDS: SERTRALINE HCL 25 MG TABLET GT SCH (08:47)
[2022-09-24] MEDS: FUROSEMIDE 20 MG TABLET GT SCH (08:47)
[2022-09-24] MEDS: COD LIVER OIL/ZINC OXIDE OINT 113 GM TUBE TOP SCH ×2 (08:48→20:27)
[2022-09-24] MEDS: POTASSIUM CHLORIDE 40 MEQ/30 ML LIQUID UDC GT SCH (08:48)
[2022-09-24] MEDS: MEDIHONEY= THERAHONEY 1.5 OZ TUBE TOP SCH ×2 (08:48→20:28)
[2022-09-24] MEDS: COD LIVER OIL/ZINC OXIDE OINT 113 GM TUBE TP SCH ×2 (08:49→20:28)
[2022-09-24] MEDS: CLOTRIMAZOLE 1% CREAM 30 GM TUBE TP SCH ×2 (08:50→21:00)
[2022-09-24] MEDS: REMEDY ESSENTIAL ZINC PASTE 113 GM TP SCH ×2 (08:50→21:00)
[2022-09-24] MEDS: HYDROGEN PEROXIDE 3% 118 ML BOTTLE TP SCH ×3 (08:57→20:38)
[2022-09-24 11:04] VITALS: TEMP 97.8
[2022-09-24] MEDS: ASCORBIC ACID 500 MG TABLET GT SCH (20:27)
[2022-09-24] MEDS: ACIDOPHILUS/BULGARICUS CHEW TAB GT SCH (20:27)
[2022-09-24] MEDS: NORMAL SALINE NASAL 45 ML BOTTLE NS SCH (20:27)
[2022-09-24 20:43] VITALS: TEMP 98
[2022-09-25] MEDS: FAMOTIDINE 20 MG TABLET GT SCH ×2 (05:19→18:02)
[2022-09-25] MEDS: POLYVINYL ALCOHOL OPHT DROPS 15 ML BOTTLE EACHEYE SCH ×3 (05:19→22:00)
[2022-09-25] MEDS: ARGININE/GLUTAMINE/CALCIUM BMB 1 EACH POWD.PACK GT SCH ×2 (05:19→18:02)
[2022-09-25] MEDS: PROTEIN SUPPLEMENT (PROSTAT) 30 ML LIQUID GT SCH ×3 (05:19→22:00)
[2022-09-25 07:18] VITALS: TEMP 98.6
[2022-09-25] MEDS: ACETAMINOPHEN 650 MG/20.3 ML LIQUID UDC GT SCH ×2 (08:30→20:23)
[2022-09-25] MEDS: REMEDY ESSENTIAL ZINC PASTE 113 GM TP SCH ×2 (09:00→20:26)
[2022-09-25] MEDS: HYDROGEN PEROXIDE 3% 118 ML BOTTLE TP SCH ×2 (09:00→19:12)
[2022-09-25] MEDS: POTASSIUM CHLORIDE 40 MEQ/30 ML LIQUID UDC GT SCH (09:00)
[2022-09-25] MEDS: SERTRALINE HCL 25 MG TABLET GT SCH (09:00)
[2022-09-25] MEDS: DIGOXIN 125 MCG TABLET GT SCH (09:00)
[2022-09-25] MEDS: FUROSEMIDE 20 MG TABLET GT SCH (09:00)
[2022-09-25] MEDS: levETIRAcetam 500 MG/5 ML LIQUID UDC GT SCH ×2 (09:00→20:23)
[2022-09-25] MEDS: CLOTRIMAZOLE 1% CREAM 30 GM TUBE TP SCH ×2 (09:00→20:25)
[2022-09-25] MEDS: MEDIHONEY= THERAHONEY 1.5 OZ TUBE TOP SCH ×2 (09:00→20:25)
[2022-09-25] MEDS: COD LIVER OIL/ZINC OXIDE OINT 113 GM TUBE TOP SCH ×2 (09:00→20:24)
[2022-09-25] MEDS: COD LIVER OIL/ZINC OXIDE OINT 113 GM TUBE TP SCH ×2 (09:00→20:25)
[2022-09-25] MEDS: GLUCERNA 1.2 1000ML LIQUID GT PRN (12:54)
[2022-09-25] MEDS: ACIDOPHILUS/BULGARICUS CHEW TAB GT SCH (20:23)
[2022-09-25] MEDS: ASCORBIC ACID 500 MG TABLET GT SCH (20:24)
[2022-09-25] MEDS: NORMAL SALINE NASAL 45 ML BOTTLE NS SCH (20:24)
[2022-09-26] MEDS: FAMOTIDINE 20 MG TABLET GT SCH ×2 (06:02→17:17)
[2022-09-26] MEDS: PROTEIN SUPPLEMENT (PROSTAT) 30 ML LIQUID GT SCH ×3 (06:02→22:23)
[2022-09-26] MEDS: ARGININE/GLUTAMINE/CALCIUM BMB 1 EACH POWD.PACK GT SCH ×2 (06:02→17:17)
[2022-09-26] MEDS: POLYVINYL ALCOHOL OPHT DROPS 15 ML BOTTLE EACHEYE SCH ×3 (06:02→22:23)
[2022-09-26 07:22] VITALS: TEMP 97.8
[2022-09-26] MEDS: HYDROGEN PEROXIDE 3% 118 ML BOTTLE TP SCH ×2 (08:10→19:19)
[2022-09-26] MEDS: levETIRAcetam 500 MG/5 ML LIQUID UDC GT SCH ×2 (08:23→21:00)
[2022-09-26] MEDS: ACETAMINOPHEN 650 MG/20.3 ML LIQUID UDC GT SCH ×2 (08:23→20:30)
[2022-09-26] MEDS: COD LIVER OIL/ZINC OXIDE OINT 113 GM TUBE TOP SCH ×2 (08:24→21:00)
[2022-09-26] MEDS: POTASSIUM CHLORIDE 40 MEQ/30 ML LIQUID UDC GT SCH (08:24)
[2022-09-26] MEDS: MEDIHONEY= THERAHONEY 1.5 OZ TUBE TOP SCH ×2 (08:24→21:00)
[2022-09-26] MEDS: COD LIVER OIL/ZINC OXIDE OINT 113 GM TUBE TP SCH ×2 (08:24→21:00)
[2022-09-26] MEDS: SERTRALINE HCL 25 MG TABLET GT SCH (08:24)
[2022-09-26] MEDS: DIGOXIN 125 MCG TABLET GT SCH (08:24)
[2022-09-26] MEDS: FUROSEMIDE 20 MG TABLET GT SCH (08:24)
[2022-09-26] MEDS: REMEDY ESSENTIAL ZINC PASTE 113 GM TP SCH ×2 (08:25→21:00)
[2022-09-26] MEDS: CLOTRIMAZOLE 1% CREAM 30 GM TUBE TP SCH ×2 (08:25→21:00)
[2022-09-26] MEDS: GLUCERNA 1.2 1000ML LIQUID GT PRN (17:18)
[2022-09-26 20:00] VITALS: TEMP 98.1
[2022-09-26] MEDS: ASCORBIC ACID 500 MG TABLET GT SCH (21:00)
[2022-09-26] MEDS: ACIDOPHILUS/BULGARICUS CHEW TAB GT SCH (21:00)
[2022-09-26] MEDS: NORMAL SALINE NASAL 45 ML BOTTLE NS SCH (21:00)
[2022-09-27] MEDS: PROTEIN SUPPLEMENT (PROSTAT) 30 ML LIQUID GT SCH ×3 (05:52→22:11)
[2022-09-27] MEDS: POLYVINYL ALCOHOL OPHT DROPS 15 ML BOTTLE EACHEYE SCH ×3 (05:52→22:11)
[2022-09-27] MEDS: ARGININE/GLUTAMINE/CALCIUM BMB 1 EACH POWD.PACK GT SCH ×2 (05:52→17:03)
[2022-09-27] MEDS: FAMOTIDINE 20 MG TABLET GT SCH ×2 (05:52→17:03)
[2022-09-27 07:26] VITALS: TEMP 98.4
[2022-09-27] MEDS: HYDROGEN PEROXIDE 3% 118 ML BOTTLE TP SCH ×2 (08:26→21:00)
[2022-09-27] MEDS: levETIRAcetam 500 MG/5 ML LIQUID UDC GT SCH ×2 (09:06→20:18)
[2022-09-27] MEDS: ACETAMINOPHEN 650 MG/20.3 ML LIQUID UDC GT SCH ×2 (09:06→20:18)
[2022-09-27] MEDS: DIGOXIN 125 MCG TABLET GT SCH (09:08)
[2022-09-27] MEDS: FUROSEMIDE 20 MG TABLET GT SCH (09:08)
[2022-09-27] MEDS: POTASSIUM CHLORIDE 40 MEQ/30 ML LIQUID UDC GT SCH (09:08)
[2022-09-27] MEDS: CLOTRIMAZOLE 1% CREAM 30 GM TUBE TP SCH ×2 (09:09→20:19)
[2022-09-27] MEDS: COD LIVER OIL/ZINC OXIDE OINT 113 GM TUBE TOP SCH ×2 (09:09→20:19)
[2022-09-27] MEDS: SERTRALINE HCL 25 MG TABLET GT SCH (09:09)
[2022-09-27] MEDS: REMEDY ESSENTIAL ZINC PASTE 113 GM TP SCH ×2 (09:09→20:19)
[2022-09-27] MEDS: MEDIHONEY= THERAHONEY 1.5 OZ TUBE TOP SCH ×2 (09:09→20:19)
[2022-09-27] MEDS: COD LIVER OIL/ZINC OXIDE OINT 113 GM TUBE TP SCH ×2 (09:09→20:19)
[2022-09-27] MEDS: GLUCERNA 1.2 1000ML LIQUID GT PRN (18:42)
[2022-09-27 19:50] VITALS: TEMP 98
[2022-09-27] MEDS: ASCORBIC ACID 500 MG TABLET GT SCH (20:18)
[2022-09-27] MEDS: ACIDOPHILUS/BULGARICUS CHEW TAB GT SCH (20:18)
[2022-09-27] MEDS: NORMAL SALINE NASAL 45 ML BOTTLE NS SCH (20:19)
[2022-09-28] MEDS: ARGININE/GLUTAMINE/CALCIUM BMB 1 EACH POWD.PACK GT SCH ×2 (05:05→17:31)
[2022-09-28] MEDS: FAMOTIDINE 20 MG TABLET GT SCH ×2 (05:05→17:31)
[2022-09-28] MEDS: POLYVINYL ALCOHOL OPHT DROPS 15 ML BOTTLE EACHEYE SCH ×3 (05:05→21:06)
[2022-09-28] MEDS: PROTEIN SUPPLEMENT (PROSTAT) 30 ML LIQUID GT SCH ×3 (05:06→21:06)
[2022-09-28 07:18] VITALS: TEMP 98.2
[2022-09-28] MEDS: HYDROGEN PEROXIDE 3% 118 ML BOTTLE TP SCH ×2 (08:08→19:22)
[2022-09-28] MEDS: ACETAMINOPHEN 650 MG/20.3 ML LIQUID UDC GT SCH ×2 (08:30→21:04)
[2022-09-28] MEDS: levETIRAcetam 500 MG/5 ML LIQUID UDC GT SCH ×2 (08:30→21:04)
[2022-09-28] MEDS: POTASSIUM CHLORIDE 40 MEQ/30 ML LIQUID UDC GT SCH (08:32)
[2022-09-28] MEDS: DIGOXIN 125 MCG TABLET GT SCH (08:32)
[2022-09-28] MEDS: SERTRALINE HCL 25 MG TABLET GT SCH (08:32)
[2022-09-28] MEDS: MEDIHONEY= THERAHONEY 1.5 OZ TUBE TOP SCH ×2 (08:32→21:04)
[2022-09-28] MEDS: FUROSEMIDE 20 MG TABLET GT SCH (08:32)
[2022-09-28] MEDS: COD LIVER OIL/ZINC OXIDE OINT 113 GM TUBE TOP SCH ×2 (08:32→21:04)
[2022-09-28] MEDS: CLOTRIMAZOLE 1% CREAM 30 GM TUBE TP SCH ×2 (08:33→21:05)
[2022-09-28] MEDS: COD LIVER OIL/ZINC OXIDE OINT 113 GM TUBE TP SCH ×2 (08:33→21:05)
[2022-09-28] MEDS: REMEDY ESSENTIAL ZINC PASTE 113 GM TP SCH ×2 (08:33→21:05)
[2022-09-28 19:47] VITALS: TEMP 98.1
[2022-09-28] MEDS: ASCORBIC ACID 500 MG TABLET GT SCH (21:04)
[2022-09-28] MEDS: NORMAL SALINE NASAL 45 ML BOTTLE NS SCH (21:04)
[2022-09-28] MEDS: ACIDOPHILUS/BULGARICUS CHEW TAB GT SCH (21:04)
[2022-09-29] MEDS: PROTEIN SUPPLEMENT (PROSTAT) 30 ML LIQUID GT SCH ×3 (05:01→21:24)
[2022-09-29] MEDS: POLYVINYL ALCOHOL OPHT DROPS 15 ML BOTTLE EACHEYE SCH ×3 (05:01→21:24)
[2022-09-29] MEDS: FAMOTIDINE 20 MG TABLET GT SCH ×2 (05:01→18:27)
[2022-09-29] MEDS: GLUCERNA 1.2 1000ML LIQUID GT PRN (05:01)
[2022-09-29] MEDS: ARGININE/GLUTAMINE/CALCIUM BMB 1 EACH POWD.PACK GT SCH ×2 (05:01→18:27)
[2022-09-29] MEDS: HYDROGEN PEROXIDE 3% 118 ML BOTTLE TP SCH ×2 (07:03→19:10)
[2022-09-29 07:55] VITALS: TEMP 98.3
[2022-09-29] MEDS: levETIRAcetam 500 MG/5 ML LIQUID UDC GT SCH ×2 (08:08→20:36)
[2022-09-29] MEDS: ACETAMINOPHEN 650 MG/20.3 ML LIQUID UDC GT SCH ×2 (08:08→20:34)
[2022-09-29] MEDS: FUROSEMIDE 20 MG TABLET GT SCH (08:10)
[2022-09-29] MEDS: MEDIHONEY= THERAHONEY 1.5 OZ TUBE TOP SCH ×2 (08:10→20:37)
[2022-09-29] MEDS: POTASSIUM CHLORIDE 40 MEQ/30 ML LIQUID UDC GT SCH (08:10)
[2022-09-29] MEDS: COD LIVER OIL/ZINC OXIDE OINT 113 GM TUBE TOP SCH ×2 (08:10→20:37)
[2022-09-29] MEDS: COD LIVER OIL/ZINC OXIDE OINT 113 GM TUBE TP SCH ×2 (08:10→20:37)
[2022-09-29] MEDS: DIGOXIN 125 MCG TABLET GT SCH (08:10)
[2022-09-29] MEDS: SERTRALINE HCL 25 MG TABLET GT SCH (08:10)
[2022-09-29] MEDS: CLOTRIMAZOLE 1% CREAM 30 GM TUBE TP SCH ×2 (08:11→20:37)
[2022-09-29] MEDS: REMEDY ESSENTIAL ZINC PASTE 113 GM TP SCH ×2 (08:11→20:37)
[2022-09-29 19:45] VITALS: TEMP 98
[2022-09-29] MEDS: ACIDOPHILUS/BULGARICUS CHEW TAB GT SCH (20:34)
[2022-09-29] MEDS: ASCORBIC ACID 500 MG TABLET GT SCH (20:36)
[2022-09-29] MEDS: NORMAL SALINE NASAL 45 ML BOTTLE NS SCH (20:37)
[2022-09-30] MEDS: PROTEIN SUPPLEMENT (PROSTAT) 30 ML LIQUID GT SCH ×3 (05:02→21:31)
[2022-09-30] MEDS: FAMOTIDINE 20 MG TABLET GT SCH ×2 (05:02→17:43)
[2022-09-30] MEDS: POLYVINYL ALCOHOL OPHT DROPS 15 ML BOTTLE EACHEYE SCH ×3 (05:02→21:31)
[2022-09-30] MEDS: ARGININE/GLUTAMINE/CALCIUM BMB 1 EACH POWD.PACK GT SCH ×2 (05:02→17:43)
[2022-09-30] MEDS: HYDROGEN PEROXIDE 3% 118 ML BOTTLE TP SCH ×2 (07:00→18:59)
[2022-09-30 07:39] VITALS: TEMP 97.8
[2022-09-30] MEDS: CLOTRIMAZOLE 1% CREAM 30 GM TUBE TP SCH ×2 (09:00→20:56)
[2022-09-30] MEDS: COD LIVER OIL/ZINC OXIDE OINT 113 GM TUBE TP SCH ×2 (09:00→20:56)
[2022-09-30] MEDS: REMEDY ESSENTIAL ZINC PASTE 113 GM TP SCH ×2 (09:00→20:56)
[2022-09-30] MEDS: MEDIHONEY= THERAHONEY 1.5 OZ TUBE TOP SCH ×2 (09:00→20:56)
[2022-09-30] MEDS: ACETAMINOPHEN 650 MG/20.3 ML LIQUID UDC GT SCH ×2 (09:03→20:30)
[2022-09-30] MEDS: levETIRAcetam 500 MG/5 ML LIQUID UDC GT SCH ×2 (09:05→20:54)
[2022-09-30] MEDS: DIGOXIN 125 MCG TABLET GT SCH (09:05)
[2022-09-30] MEDS: POTASSIUM CHLORIDE 40 MEQ/30 ML LIQUID UDC GT SCH (09:06)
[2022-09-30] MEDS: SERTRALINE HCL 25 MG TABLET GT SCH (09:07)
[2022-09-30] MEDS: FUROSEMIDE 20 MG TABLET GT SCH (09:08)
[2022-09-30] MEDS: COD LIVER OIL/ZINC OXIDE OINT 113 GM TUBE TOP SCH (09:08)
[2022-09-30 19:52] VITALS: TEMP 98
[2022-09-30] MEDS: ACIDOPHILUS/BULGARICUS CHEW TAB GT SCH (20:54)
[2022-09-30] MEDS: ASCORBIC ACID 500 MG TABLET GT SCH (20:56)
[2022-09-30] MEDS: NORMAL SALINE NASAL 45 ML BOTTLE NS SCH (20:56)
[2022-10-01] MEDS: POLYVINYL ALCOHOL OPHT DROPS 15 ML BOTTLE EACHEYE SCH ×3 (05:42→21:27)
[2022-10-01] MEDS: ARGININE/GLUTAMINE/CALCIUM BMB 1 EACH POWD.PACK GT SCH ×2 (05:42→18:42)
[2022-10-01] MEDS: FAMOTIDINE 20 MG TABLET GT SCH ×2 (05:42→18:42)
[2022-10-01] MEDS: PROTEIN SUPPLEMENT (PROSTAT) 30 ML LIQUID GT SCH ×3 (05:42→21:27)
[2022-10-01 07:42] VITALS: TEMP 97.6
[2022-10-01] MEDS: CLOTRIMAZOLE 1% CREAM 30 GM TUBE TP SCH ×2 (09:00→20:57)
[2022-10-01] MEDS: HYDROGEN PEROXIDE 3% 118 ML BOTTLE TP SCH ×2 (09:00→21:17)
[2022-10-01] MEDS: MEDIHONEY= THERAHONEY 1.5 OZ TUBE TOP SCH ×2 (09:00→20:57)
[2022-10-01] MEDS: COD LIVER OIL/ZINC OXIDE OINT 113 GM TUBE TP SCH ×2 (09:00→20:57)
[2022-10-01] MEDS: ACETAMINOPHEN 650 MG/20.3 ML LIQUID UDC GT SCH ×2 (09:27→20:30)
[2022-10-01] MEDS: levETIRAcetam 500 MG/5 ML LIQUID UDC GT SCH ×2 (09:28→20:56)
[2022-10-01] MEDS: DIGOXIN 125 MCG TABLET GT SCH (09:29)
[2022-10-01] MEDS: SERTRALINE HCL 25 MG TABLET GT SCH (09:29)
[2022-10-01] MEDS: POTASSIUM CHLORIDE 40 MEQ/30 ML LIQUID UDC GT SCH (09:29)
[2022-10-01] MEDS: REMEDY ESSENTIAL ZINC PASTE 113 GM TP SCH ×2 (09:29→20:57)
[2022-10-01] MEDS: FUROSEMIDE 20 MG TABLET GT SCH (09:29)
[2022-10-01] MEDS: GLUCERNA 1.2 1000ML LIQUID GT PRN (16:38)
[2022-10-01 20:00] VITALS: TEMP 98
[2022-10-01] MEDS: ACIDOPHILUS/BULGARICUS CHEW TAB GT SCH (20:56)
[2022-10-01] MEDS: ASCORBIC ACID 500 MG TABLET GT SCH (20:56)
[2022-10-01] MEDS: NORMAL SALINE NASAL 45 ML BOTTLE NS SCH (20:57)
[2022-10-02] MEDS: PROTEIN SUPPLEMENT (PROSTAT) 30 ML LIQUID GT SCH ×3 (05:37→21:22)
[2022-10-02] MEDS: ARGININE/GLUTAMINE/CALCIUM BMB 1 EACH POWD.PACK GT SCH ×2 (05:37→17:50)
[2022-10-02] MEDS: POLYVINYL ALCOHOL OPHT DROPS 15 ML BOTTLE EACHEYE SCH ×3 (05:37→21:22)
[2022-10-02] MEDS: FAMOTIDINE 20 MG TABLET GT SCH ×2 (05:37→17:50)
[2022-10-02] MEDS: HYDROGEN PEROXIDE 3% 118 ML BOTTLE TP SCH ×2 (07:21→21:00)
[2022-10-02 07:30] VITALS: TEMP 98.6
[2022-10-02] MEDS: REMEDY ESSENTIAL ZINC PASTE 113 GM TP SCH ×2 (09:00→20:25)
[2022-10-02] MEDS: COD LIVER OIL/ZINC OXIDE OINT 113 GM TUBE TP SCH ×3 (09:00→20:25)
[2022-10-02] MEDS: ACETAMINOPHEN 650 MG/20.3 ML LIQUID UDC GT SCH ×2 (09:26→20:24)
[2022-10-02] MEDS: levETIRAcetam 500 MG/5 ML LIQUID UDC GT SCH ×2 (09:27→20:24)
[2022-10-02] MEDS: POTASSIUM CHLORIDE 40 MEQ/30 ML LIQUID UDC GT SCH (09:28)
[2022-10-02] MEDS: FUROSEMIDE 20 MG TABLET GT SCH (09:28)
[2022-10-02] MEDS: SERTRALINE HCL 25 MG TABLET GT SCH (09:28)
[2022-10-02] MEDS: DIGOXIN 125 MCG TABLET GT SCH (09:28)
[2022-10-02] MEDS ORDERED: MEDIHONEY= THERAHONEY 1.5 OZ TUBE TOP PRN (11:45)
[2022-10-02] MEDS ORDERED: COD LIVER OIL/ZINC OXIDE OINT 113 GM TUBE TP PRN (11:45)
[2022-10-02] MEDS ORDERED: CLOTRIMAZOLE 1% CREAM 30 GM TUBE TP PRN (11:45)
[2022-10-02] MEDS: MEDIHONEY= THERAHONEY 1.5 OZ TUBE TOP SCH ×2 (13:05→20:24)
[2022-10-02] MEDS: CLOTRIMAZOLE 1% CREAM 30 GM TUBE TP SCH ×2 (13:06→20:25)
[2022-10-02] MEDS: NORMAL SALINE NASAL 45 ML BOTTLE NS SCH (20:24)
[2022-10-02] MEDS: ACIDOPHILUS/BULGARICUS CHEW TAB GT SCH (20:24)
[2022-10-02] MEDS: ASCORBIC ACID 500 MG TABLET GT SCH (20:24)
[2022-10-02 20:29] VITALS: TEMP 98.7
[2022-10-03] MEDS: GLUCERNA 1.2 1000ML LIQUID GT PRN (05:09)
[2022-10-03] MEDS: ARGININE/GLUTAMINE/CALCIUM BMB 1 EACH POWD.PACK GT SCH ×2 (05:09→18:38)
[2022-10-03] MEDS: PROTEIN SUPPLEMENT (PROSTAT) 30 ML LIQUID GT SCH ×3 (05:09→22:00)
[2022-10-03] MEDS: POLYVINYL ALCOHOL OPHT DROPS 15 ML BOTTLE EACHEYE SCH ×3 (05:09→22:00)
[2022-10-03] MEDS: FAMOTIDINE 20 MG TABLET GT SCH ×2 (05:09→18:38)
[2022-10-03 07:23] VITALS: TEMP 98
[2022-10-03] MEDS: HYDROGEN PEROXIDE 3% 118 ML BOTTLE TP SCH ×2 (08:14→18:57)
[2022-10-03] MEDS: ACETAMINOPHEN 650 MG/20.3 ML LIQUID UDC GT SCH ×2 (08:30→20:30)
[2022-10-03] MEDS: levETIRAcetam 500 MG/5 ML LIQUID UDC GT SCH ×2 (09:33→21:00)
[2022-10-03] MEDS: DIGOXIN 125 MCG TABLET GT SCH (09:34)
[2022-10-03] MEDS: FUROSEMIDE 20 MG TABLET GT SCH (09:34)
[2022-10-03] MEDS: POTASSIUM CHLORIDE 40 MEQ/30 ML LIQUID UDC GT SCH (09:34)
[2022-10-03] MEDS: MEDIHONEY= THERAHONEY 1.5 OZ TUBE TOP SCH ×2 (09:35→21:00)
[2022-10-03] MEDS: COD LIVER OIL/ZINC OXIDE OINT 113 GM TUBE TP SCH ×2 (09:35→21:00)
[2022-10-03] MEDS: SERTRALINE HCL 25 MG TABLET GT SCH (09:35)
[2022-10-03] MEDS: CLOTRIMAZOLE 1% CREAM 30 GM TUBE TP SCH ×2 (09:36→21:00)
[2022-10-03] MEDS: REMEDY ESSENTIAL ZINC PASTE 113 GM TP SCH ×2 (09:36→21:00)
[2022-10-03 19:43] VITALS: TEMP 98
[2022-10-03] MEDS: ASCORBIC ACID 500 MG TABLET GT SCH (21:00)
[2022-10-03] MEDS: NORMAL SALINE NASAL 45 ML BOTTLE NS SCH (21:00)
[2022-10-03] MEDS: ACIDOPHILUS/BULGARICUS CHEW TAB GT SCH (21:00)
[2022-10-04] MEDS: ARGININE/GLUTAMINE/CALCIUM BMB 1 EACH POWD.PACK GT SCH ×2 (05:09→17:32)
[2022-10-04] MEDS: PROTEIN SUPPLEMENT (PROSTAT) 30 ML LIQUID GT SCH ×3 (05:09→21:45)
[2022-10-04] MEDS: POLYVINYL ALCOHOL OPHT DROPS 15 ML BOTTLE EACHEYE SCH ×3 (05:09→21:45)
[2022-10-04] MEDS: FAMOTIDINE 20 MG TABLET GT SCH ×2 (05:09→17:32)
[2022-10-04 07:21] VITALS: TEMP 97.8
[2022-10-04] MEDS: POTASSIUM CHLORIDE 40 MEQ/30 ML LIQUID UDC GT SCH (08:28)
[2022-10-04] MEDS: FUROSEMIDE 20 MG TABLET GT SCH (08:28)
[2022-10-04] MEDS: MEDIHONEY= THERAHONEY 1.5 OZ TUBE TOP SCH ×2 (08:28→20:41)
[2022-10-04] MEDS: SERTRALINE HCL 25 MG TABLET GT SCH (08:28)
[2022-10-04] MEDS: CLOTRIMAZOLE 1% CREAM 30 GM TUBE TP SCH ×2 (08:28→20:41)
[2022-10-04] MEDS: levETIRAcetam 500 MG/5 ML LIQUID UDC GT SCH ×2 (08:28→20:41)
[2022-10-04] MEDS: ACETAMINOPHEN 650 MG/20.3 ML LIQUID UDC GT SCH ×2 (08:28→20:40)
[2022-10-04] MEDS: COD LIVER OIL/ZINC OXIDE OINT 113 GM TUBE TP SCH ×2 (08:28→20:41)
[2022-10-04] MEDS: REMEDY ESSENTIAL ZINC PASTE 113 GM TP SCH ×2 (08:28→21:45)
[2022-10-04] MEDS: DIGOXIN 125 MCG TABLET GT SCH (08:28)
[2022-10-04] MEDS: HYDROGEN PEROXIDE 3% 118 ML BOTTLE TP SCH ×2 (09:00→20:38)
[2022-10-04] MEDS: GLUCERNA 1.2 1000ML LIQUID GT PRN (13:00)
[2022-10-04 20:00] VITALS: TEMP 98
[2022-10-04] MEDS: NORMAL SALINE NASAL 45 ML BOTTLE NS SCH (20:41)
[2022-10-04] MEDS: ASCORBIC ACID 500 MG TABLET GT SCH (20:41)
[2022-10-04] MEDS: ACIDOPHILUS/BULGARICUS CHEW TAB GT SCH (20:41)
[2022-10-05] MEDS: ARGININE/GLUTAMINE/CALCIUM BMB 1 EACH POWD.PACK GT SCH ×2 (05:02→18:15)
[2022-10-05] MEDS: POLYVINYL ALCOHOL OPHT DROPS 15 ML BOTTLE EACHEYE SCH ×3 (05:02→22:00)
[2022-10-05] MEDS: FAMOTIDINE 20 MG TABLET GT SCH ×2 (05:03→18:15)
[2022-10-05] MEDS: PROTEIN SUPPLEMENT (PROSTAT) 30 ML LIQUID GT SCH ×3 (05:03→22:00)
[2022-10-05 08:00] VITALS: TEMP 98.4
[2022-10-05] MEDS: HYDROGEN PEROXIDE 3% 118 ML BOTTLE TP SCH ×2 (08:24→19:01)
[2022-10-05] MEDS: ACETAMINOPHEN 650 MG/20.3 ML LIQUID UDC GT SCH ×2 (08:28→20:33)
[2022-10-05] MEDS: FUROSEMIDE 20 MG TABLET GT SCH (08:28)
[2022-10-05] MEDS: DIGOXIN 125 MCG TABLET GT SCH (08:28)
[2022-10-05] MEDS: POTASSIUM CHLORIDE 40 MEQ/30 ML LIQUID UDC GT SCH (08:28)
[2022-10-05] MEDS: levETIRAcetam 500 MG/5 ML LIQUID UDC GT SCH ×2 (08:28→20:33)
[2022-10-05] MEDS: CLOTRIMAZOLE 1% CREAM 30 GM TUBE TP SCH ×2 (08:29→20:33)
[2022-10-05] MEDS: MEDIHONEY= THERAHONEY 1.5 OZ TUBE TOP SCH ×2 (08:29→20:33)
[2022-10-05] MEDS: COD LIVER OIL/ZINC OXIDE OINT 113 GM TUBE TP SCH ×2 (08:29→20:33)
[2022-10-05] MEDS: REMEDY ESSENTIAL ZINC PASTE 113 GM TP SCH ×2 (08:29→20:33)
[2022-10-05] MEDS: SERTRALINE HCL 25 MG TABLET GT SCH (08:29)
[2022-10-05 20:00] VITALS: TEMP 97.8
[2022-10-05] MEDS: ACIDOPHILUS/BULGARICUS CHEW TAB GT SCH (20:33)
[2022-10-05] MEDS: NORMAL SALINE NASAL 45 ML BOTTLE NS SCH (20:33)
[2022-10-05] MEDS: ASCORBIC ACID 500 MG TABLET GT SCH (20:33)
[2022-10-06] MEDS: GLUCERNA 1.2 1000ML LIQUID GT PRN (06:22)
[2022-10-06] MEDS: FAMOTIDINE 20 MG TABLET GT SCH ×2 (06:22→17:40)
[2022-10-06] MEDS: PROTEIN SUPPLEMENT (PROSTAT) 30 ML LIQUID GT SCH ×3 (06:22→22:00)
[2022-10-06] MEDS: POLYVINYL ALCOHOL OPHT DROPS 15 ML BOTTLE EACHEYE SCH ×3 (06:22→22:00)
[2022-10-06] MEDS: ARGININE/GLUTAMINE/CALCIUM BMB 1 EACH POWD.PACK GT SCH ×2 (06:22→17:40)
[2022-10-06 08:00] VITALS: TEMP 97.5; TEMP 99.4
[2022-10-06] MEDS: SERTRALINE HCL 25 MG TABLET GT SCH (08:56)
[2022-10-06] MEDS: levETIRAcetam 500 MG/5 ML LIQUID UDC GT SCH ×2 (08:56→20:26)
[2022-10-06] MEDS: COD LIVER OIL/ZINC OXIDE OINT 113 GM TUBE TP SCH ×2 (08:56→20:26)
[2022-10-06] MEDS: FUROSEMIDE 20 MG TABLET GT SCH (08:56)
[2022-10-06] MEDS: MEDIHONEY= THERAHONEY 1.5 OZ TUBE TOP SCH ×2 (08:56→20:26)
[2022-10-06] MEDS: ACETAMINOPHEN 650 MG/20.3 ML LIQUID UDC GT SCH ×2 (08:56→20:26)
[2022-10-06] MEDS: REMEDY ESSENTIAL ZINC PASTE 113 GM TP SCH ×2 (08:56→20:27)
[2022-10-06] MEDS: CLOTRIMAZOLE 1% CREAM 30 GM TUBE TP SCH ×2 (08:56→20:26)
[2022-10-06] MEDS: POTASSIUM CHLORIDE 40 MEQ/30 ML LIQUID UDC GT SCH (08:56)
[2022-10-06] MEDS: DIGOXIN 125 MCG TABLET GT SCH (08:56)
[2022-10-06] MEDS: HYDROGEN PEROXIDE 3% 118 ML BOTTLE TP SCH ×2 (09:00→19:18)
[2022-10-06 19:41] VITALS: TEMP 98.1
[2022-10-06] MEDS: NORMAL SALINE NASAL 45 ML BOTTLE NS SCH (20:26)
[2022-10-06] MEDS: ASCORBIC ACID 500 MG TABLET GT SCH (20:26)
[2022-10-06] MEDS: ACIDOPHILUS/BULGARICUS CHEW TAB GT SCH (20:26)
[2022-10-07] MEDS: ARGININE/GLUTAMINE/CALCIUM BMB 1 EACH POWD.PACK GT SCH ×2 (05:19→18:03)
[2022-10-07] MEDS: FAMOTIDINE 20 MG TABLET GT SCH ×2 (05:19→18:03)
[2022-10-07] MEDS: POLYVINYL ALCOHOL OPHT DROPS 15 ML BOTTLE EACHEYE SCH ×3 (05:19→22:28)
[2022-10-07] MEDS: PROTEIN SUPPLEMENT (PROSTAT) 30 ML LIQUID GT SCH ×3 (05:19→22:28)
[2022-10-07 07:16] VITALS: TEMP 98.6
[2022-10-07] MEDS: HYDROGEN PEROXIDE 3% 118 ML BOTTLE TP SCH ×2 (07:34→19:00)
[2022-10-07] MEDS: SERTRALINE HCL 25 MG TABLET GT SCH (09:23)
[2022-10-07] MEDS: MEDIHONEY= THERAHONEY 1.5 OZ TUBE TOP SCH ×2 (09:23→21:00)
[2022-10-07] MEDS: DIGOXIN 125 MCG TABLET GT SCH (09:23)
[2022-10-07] MEDS: POTASSIUM CHLORIDE 40 MEQ/30 ML LIQUID UDC GT SCH (09:23)
[2022-10-07] MEDS: levETIRAcetam 500 MG/5 ML LIQUID UDC GT SCH ×2 (09:23→21:00)
[2022-10-07] MEDS: ACETAMINOPHEN 650 MG/20.3 ML LIQUID UDC GT SCH ×2 (09:23→20:30)
[2022-10-07] MEDS: REMEDY ESSENTIAL ZINC PASTE 113 GM TP SCH ×2 (09:23→21:00)
[2022-10-07] MEDS: FUROSEMIDE 20 MG TABLET GT SCH (09:23)
[2022-10-07] MEDS: CLOTRIMAZOLE 1% CREAM 30 GM TUBE TP SCH ×2 (09:23→21:00)
[2022-10-07] MEDS: COD LIVER OIL/ZINC OXIDE OINT 113 GM TUBE TP SCH ×2 (09:23→21:00)
[2022-10-07 20:00] VITALS: TEMP 98.1
[2022-10-07] MEDS: ACIDOPHILUS/BULGARICUS CHEW TAB GT SCH (21:00)
[2022-10-07] MEDS: NORMAL SALINE NASAL 45 ML BOTTLE NS SCH (21:00)
[2022-10-07] MEDS: ASCORBIC ACID 500 MG TABLET GT SCH (21:00)
[2022-10-08] MEDS: FAMOTIDINE 20 MG TABLET GT SCH ×2 (05:13→17:50)
[2022-10-08] MEDS: ARGININE/GLUTAMINE/CALCIUM BMB 1 EACH POWD.PACK GT SCH ×2 (05:13→17:50)
[2022-10-08] MEDS: POLYVINYL ALCOHOL OPHT DROPS 15 ML BOTTLE EACHEYE SCH ×3 (05:13→22:00)
[2022-10-08] MEDS: PROTEIN SUPPLEMENT (PROSTAT) 30 ML LIQUID GT SCH ×3 (05:13→22:00)
[2022-10-08 07:00] VITALS: O2SAT 99
[2022-10-08] MEDS: HYDROGEN PEROXIDE 3% 118 ML BOTTLE TP SCH ×2 (07:28→19:05)
[2022-10-08] MEDS: ACETAMINOPHEN 650 MG/20.3 ML LIQUID UDC GT SCH ×2 (08:10→20:14)
[2022-10-08] MEDS: levETIRAcetam 500 MG/5 ML LIQUID UDC GT SCH ×2 (08:10→20:14)
[2022-10-08] MEDS: DIGOXIN 125 MCG TABLET GT SCH (08:10)
[2022-10-08] MEDS: POTASSIUM CHLORIDE 40 MEQ/30 ML LIQUID UDC GT SCH (08:10)
[2022-10-08] MEDS: FUROSEMIDE 20 MG TABLET GT SCH (08:10)
[2022-10-08] MEDS: SERTRALINE HCL 25 MG TABLET GT SCH (08:10)
[2022-10-08] MEDS: MEDIHONEY= THERAHONEY 1.5 OZ TUBE TOP SCH ×2 (08:10→20:15)
[2022-10-08] MEDS: CLOTRIMAZOLE 1% CREAM 30 GM TUBE TP SCH ×2 (08:11→20:16)
[2022-10-08] MEDS: REMEDY ESSENTIAL ZINC PASTE 113 GM TP SCH ×2 (08:11→20:16)
[2022-10-08] MEDS: COD LIVER OIL/ZINC OXIDE OINT 113 GM TUBE TP SCH ×2 (08:11→20:15)
[2022-10-08 11:48] VITALS: TEMP 97.2
[2022-10-08 20:00] VITALS: TEMP 98.1
[2022-10-08] MEDS: NORMAL SALINE NASAL 45 ML BOTTLE NS SCH (20:14)
[2022-10-08] MEDS: ACIDOPHILUS/BULGARICUS CHEW TAB GT SCH (20:14)
[2022-10-08] MEDS: ASCORBIC ACID 500 MG TABLET GT SCH (20:14)
[2022-10-09] MEDS: FAMOTIDINE 20 MG TABLET GT SCH ×2 (05:15→18:52)
[2022-10-09] MEDS: POLYVINYL ALCOHOL OPHT DROPS 15 ML BOTTLE EACHEYE SCH ×3 (05:15→22:00)
[2022-10-09] MEDS: PROTEIN SUPPLEMENT (PROSTAT) 30 ML LIQUID GT SCH ×3 (05:15→22:00)
[2022-10-09] MEDS: ARGININE/GLUTAMINE/CALCIUM BMB 1 EACH POWD.PACK GT SCH ×2 (05:15→18:51)
[2022-10-09] MEDS: GLUCERNA 1.2 1000ML LIQUID GT PRN (06:40)
[2022-10-09 07:50] VITALS: TEMP 98.3
[2022-10-09] MEDS: ACETAMINOPHEN 650 MG/20.3 ML LIQUID UDC GT SCH ×2 (08:30→20:30)
[2022-10-09] MEDS: levETIRAcetam 500 MG/5 ML LIQUID UDC GT SCH ×2 (09:48→21:55)
[2022-10-09] MEDS: DIGOXIN 125 MCG TABLET GT SCH (09:49)
[2022-10-09] MEDS: POTASSIUM CHLORIDE 40 MEQ/30 ML LIQUID UDC GT SCH (09:49)
[2022-10-09] MEDS: COD LIVER OIL/ZINC OXIDE OINT 113 GM TUBE TP SCH ×2 (09:49→21:56)
[2022-10-09] MEDS: MEDIHONEY= THERAHONEY 1.5 OZ TUBE TOP SCH ×2 (09:49→21:56)
[2022-10-09] MEDS: SERTRALINE HCL 25 MG TABLET GT SCH (09:49)
[2022-10-09] MEDS: FUROSEMIDE 20 MG TABLET GT SCH (09:49)
[2022-10-09] MEDS: HYDROGEN PEROXIDE 3% 118 ML BOTTLE TP SCH ×2 (09:50→19:12)
[2022-10-09] MEDS: REMEDY ESSENTIAL ZINC PASTE 113 GM TP SCH ×2 (09:50→21:56)
[2022-10-09] MEDS: CLOTRIMAZOLE 1% CREAM 30 GM TUBE TP SCH ×2 (09:50→21:56)
[2022-10-09 20:00] VITALS: TEMP 98.8
[2022-10-09] MEDS: ACIDOPHILUS/BULGARICUS CHEW TAB GT SCH (21:55)
[2022-10-09] MEDS: ASCORBIC ACID 500 MG TABLET GT SCH (21:55)
[2022-10-09] MEDS: NORMAL SALINE NASAL 45 ML BOTTLE NS SCH (21:56)
[2022-10-10] MEDS: FAMOTIDINE 20 MG TABLET GT SCH ×2 (05:20→17:46)
[2022-10-10] MEDS: GLUCERNA 1.2 1000ML LIQUID GT PRN (05:20)
[2022-10-10] MEDS: PROTEIN SUPPLEMENT (PROSTAT) 30 ML LIQUID GT SCH ×3 (05:20→22:00)
[2022-10-10] MEDS: POLYVINYL ALCOHOL OPHT DROPS 15 ML BOTTLE EACHEYE SCH ×3 (05:20→22:00)
[2022-10-10] MEDS: ARGININE/GLUTAMINE/CALCIUM BMB 1 EACH POWD.PACK GT SCH ×2 (05:20→17:46)
[2022-10-10 07:16] VITALS: TEMP 98.2
[2022-10-10] MEDS: HYDROGEN PEROXIDE 3% 118 ML BOTTLE TP SCH ×2 (08:04→21:00)
[2022-10-10] MEDS: ACETAMINOPHEN 650 MG/20.3 ML LIQUID UDC GT SCH ×2 (09:25→20:48)
[2022-10-10] MEDS: levETIRAcetam 500 MG/5 ML LIQUID UDC GT SCH ×2 (09:26→20:48)
[2022-10-10] MEDS: FUROSEMIDE 20 MG TABLET GT SCH (09:28)
[2022-10-10] MEDS: DIGOXIN 125 MCG TABLET GT SCH (09:28)
[2022-10-10] MEDS: POTASSIUM CHLORIDE 40 MEQ/30 ML LIQUID UDC GT SCH (09:29)
[2022-10-10] MEDS: SERTRALINE HCL 25 MG TABLET GT SCH (09:29)
[2022-10-10] MEDS: MEDIHONEY= THERAHONEY 1.5 OZ TUBE TOP SCH ×2 (09:30→20:48)
[2022-10-10] MEDS: CLOTRIMAZOLE 1% CREAM 30 GM TUBE TP SCH ×2 (09:30→20:50)
[2022-10-10] MEDS: COD LIVER OIL/ZINC OXIDE OINT 113 GM TUBE TP SCH ×2 (09:30→20:50)
[2022-10-10] MEDS: REMEDY ESSENTIAL ZINC PASTE 113 GM TP SCH ×2 (09:31→20:50)
[2022-10-10 20:00] VITALS: TEMP 98
[2022-10-10] MEDS: ACIDOPHILUS/BULGARICUS CHEW TAB GT SCH (20:48)
[2022-10-10] MEDS: NORMAL SALINE NASAL 45 ML BOTTLE NS SCH (20:48)
[2022-10-10] MEDS: ASCORBIC ACID 500 MG TABLET GT SCH (20:48)
[2022-10-11] MEDS: PROTEIN SUPPLEMENT (PROSTAT) 30 ML LIQUID GT SCH ×3 (05:13→21:59)
[2022-10-11] MEDS: POLYVINYL ALCOHOL OPHT DROPS 15 ML BOTTLE EACHEYE SCH ×3 (05:13→21:59)
[2022-10-11] MEDS: ARGININE/GLUTAMINE/CALCIUM BMB 1 EACH POWD.PACK GT SCH ×2 (05:13→17:21)
[2022-10-11] MEDS: FAMOTIDINE 20 MG TABLET GT SCH ×2 (05:13→17:21)
[2022-10-11 07:21] VITALS: TEMP 98.8
[2022-10-11] MEDS: HYDROGEN PEROXIDE 3% 118 ML BOTTLE TP SCH ×2 (08:05→19:00)
[2022-10-11] MEDS: CLOTRIMAZOLE 1% CREAM 30 GM TUBE TP SCH ×2 (09:20→20:34)
[2022-10-11] MEDS: FUROSEMIDE 20 MG TABLET GT SCH (09:20)
[2022-10-11] MEDS: REMEDY ESSENTIAL ZINC PASTE 113 GM TP SCH ×2 (09:20→20:35)
[2022-10-11] MEDS: MEDIHONEY= THERAHONEY 1.5 OZ TUBE TOP SCH ×2 (09:20→20:34)
[2022-10-11] MEDS: POTASSIUM CHLORIDE 40 MEQ/30 ML LIQUID UDC GT SCH (09:20)
[2022-10-11] MEDS: ACETAMINOPHEN 650 MG/20.3 ML LIQUID UDC GT SCH ×2 (09:20→20:34)
[2022-10-11] MEDS: DIGOXIN 125 MCG TABLET GT SCH (09:20)
[2022-10-11] MEDS: levETIRAcetam 500 MG/5 ML LIQUID UDC GT SCH ×2 (09:20→20:34)
[2022-10-11] MEDS: COD LIVER OIL/ZINC OXIDE OINT 113 GM TUBE TP SCH ×2 (09:20→20:34)
[2022-10-11] MEDS: SERTRALINE HCL 25 MG TABLET GT SCH (09:20)
[2022-10-11] MEDS: GLUCERNA 1.2 1000ML LIQUID GT PRN (16:33)
[2022-10-11 20:00] VITALS: TEMP 98.1
[2022-10-11] MEDS: ASCORBIC ACID 500 MG TABLET GT SCH (20:34)
[2022-10-11] MEDS: ACIDOPHILUS/BULGARICUS CHEW TAB GT SCH (20:34)
[2022-10-11] MEDS: NORMAL SALINE NASAL 45 ML BOTTLE NS SCH (20:34)
[2022-10-12] MEDS: ARGININE/GLUTAMINE/CALCIUM BMB 1 EACH POWD.PACK GT SCH ×2 (05:01→17:01)
[2022-10-12] MEDS: PROTEIN SUPPLEMENT (PROSTAT) 30 ML LIQUID GT SCH ×3 (05:01→22:56)
[2022-10-12] MEDS: FAMOTIDINE 20 MG TABLET GT SCH ×2 (05:01→17:01)
[2022-10-12] MEDS: POLYVINYL ALCOHOL OPHT DROPS 15 ML BOTTLE EACHEYE SCH ×3 (05:01→22:56)
[2022-10-12 07:28] VITALS: TEMP 98.6
[2022-10-12] MEDS: HYDROGEN PEROXIDE 3% 118 ML BOTTLE TP SCH ×3 (08:07→21:24)
[2022-10-12] MEDS: ACETAMINOPHEN 650 MG/20.3 ML LIQUID UDC GT SCH ×2 (08:52→20:51)
[2022-10-12] MEDS: levETIRAcetam 500 MG/5 ML LIQUID UDC GT SCH ×2 (08:53→20:51)
[2022-10-12] MEDS: SERTRALINE HCL 25 MG TABLET GT SCH (08:54)
[2022-10-12] MEDS: POTASSIUM CHLORIDE 40 MEQ/30 ML LIQUID UDC GT SCH (08:54)
[2022-10-12] MEDS: DIGOXIN 125 MCG TABLET GT SCH (08:54)
[2022-10-12] MEDS: FUROSEMIDE 20 MG TABLET GT SCH (08:54)
[2022-10-12] MEDS: MEDIHONEY= THERAHONEY 1.5 OZ TUBE TOP SCH ×2 (08:56→20:52)
[2022-10-12] MEDS: REMEDY ESSENTIAL ZINC PASTE 113 GM TP SCH ×2 (09:00→20:52)
[2022-10-12] MEDS: CLOTRIMAZOLE 1% CREAM 30 GM TUBE TP SCH ×2 (09:00→20:52)
[2022-10-12] MEDS: COD LIVER OIL/ZINC OXIDE OINT 113 GM TUBE TP SCH ×2 (09:00→20:52)
[2022-10-12 20:00] VITALS: TEMP 98.2
[2022-10-12] MEDS: ASCORBIC ACID 500 MG TABLET GT SCH (20:51)
[2022-10-12] MEDS: ACIDOPHILUS/BULGARICUS CHEW TAB GT SCH (20:51)
[2022-10-12] MEDS: NORMAL SALINE NASAL 45 ML BOTTLE NS SCH (20:51)
[2022-10-13] MEDS: PROTEIN SUPPLEMENT (PROSTAT) 30 ML LIQUID GT SCH ×3 (05:17→22:00)
[2022-10-13] MEDS: POLYVINYL ALCOHOL OPHT DROPS 15 ML BOTTLE EACHEYE SCH ×3 (05:17→22:00)
[2022-10-13] MEDS: FAMOTIDINE 20 MG TABLET GT SCH ×2 (05:17→18:11)
[2022-10-13] MEDS: ARGININE/GLUTAMINE/CALCIUM BMB 1 EACH POWD.PACK GT SCH ×2 (05:17→18:11)
[2022-10-13] MEDS: GLUCERNA 1.2 1000ML LIQUID GT PRN (05:17)
[2022-10-13] MEDS: HYDROGEN PEROXIDE 3% 118 ML BOTTLE TP SCH ×2 (07:44→21:23)
[2022-10-13 07:48] VITALS: TEMP 97.4
[2022-10-13] MEDS: ACETAMINOPHEN 650 MG/20.3 ML LIQUID UDC GT SCH ×2 (08:40→20:06)
[2022-10-13] MEDS: levETIRAcetam 500 MG/5 ML LIQUID UDC GT SCH ×2 (08:45→20:06)
[2022-10-13] MEDS: SERTRALINE HCL 25 MG TABLET GT SCH (08:46)
[2022-10-13] MEDS: DIGOXIN 125 MCG TABLET GT SCH (08:46)
[2022-10-13] MEDS: POTASSIUM CHLORIDE 40 MEQ/30 ML LIQUID UDC GT SCH (08:46)
[2022-10-13] MEDS: FUROSEMIDE 20 MG TABLET GT SCH (08:46)
[2022-10-13] MEDS: MEDIHONEY= THERAHONEY 1.5 OZ TUBE TOP SCH ×2 (08:47→20:07)
[2022-10-13] MEDS: REMEDY ESSENTIAL ZINC PASTE 113 GM TP SCH ×2 (08:48→20:07)
[2022-10-13] MEDS: CLOTRIMAZOLE 1% CREAM 30 GM TUBE TP SCH ×2 (08:48→20:07)
[2022-10-13] MEDS: COD LIVER OIL/ZINC OXIDE OINT 113 GM TUBE TP SCH ×2 (08:48→20:07)
[2022-10-13 19:53] VITALS: TEMP 98
[2022-10-13] MEDS: ASCORBIC ACID 500 MG TABLET GT SCH (20:06)
[2022-10-13] MEDS: ACIDOPHILUS/BULGARICUS CHEW TAB GT SCH (20:06)
[2022-10-13] MEDS: NORMAL SALINE NASAL 45 ML BOTTLE NS SCH (20:07)
[2022-10-14] MEDS: PROTEIN SUPPLEMENT (PROSTAT) 30 ML LIQUID GT SCH ×3 (05:06→21:52)
[2022-10-14] MEDS: POLYVINYL ALCOHOL OPHT DROPS 15 ML BOTTLE EACHEYE SCH ×3 (05:06→21:52)
[2022-10-14] MEDS: FAMOTIDINE 20 MG TABLET GT SCH ×2 (05:06→17:21)
[2022-10-14] MEDS: ARGININE/GLUTAMINE/CALCIUM BMB 1 EACH POWD.PACK GT SCH ×2 (05:06→17:21)
[2022-10-14 07:41] VITALS: TEMP 97.9
[2022-10-14] MEDS: HYDROGEN PEROXIDE 3% 118 ML BOTTLE TP SCH ×2 (07:45→19:37)
[2022-10-14] MEDS: levETIRAcetam 500 MG/5 ML LIQUID UDC GT SCH ×2 (08:37→21:52)
[2022-10-14] MEDS: ACETAMINOPHEN 650 MG/20.3 ML LIQUID UDC GT SCH ×2 (08:37→20:30)
[2022-10-14] MEDS: SERTRALINE HCL 25 MG TABLET GT SCH (08:38)
[2022-10-14] MEDS: CLOTRIMAZOLE 1% CREAM 30 GM TUBE TP SCH ×2 (08:38→21:52)
[2022-10-14] MEDS: COD LIVER OIL/ZINC OXIDE OINT 113 GM TUBE TP SCH ×2 (08:38→21:52)
[2022-10-14] MEDS: DIGOXIN 125 MCG TABLET GT SCH (08:38)
[2022-10-14] MEDS: FUROSEMIDE 20 MG TABLET GT SCH (08:38)
[2022-10-14] MEDS: REMEDY ESSENTIAL ZINC PASTE 113 GM TP SCH ×2 (08:38→21:52)
[2022-10-14] MEDS: MEDIHONEY= THERAHONEY 1.5 OZ TUBE TOP SCH ×2 (08:38→21:52)
[2022-10-14] MEDS: POTASSIUM CHLORIDE 40 MEQ/30 ML LIQUID UDC GT SCH (08:38)
[2022-10-14 20:00] VITALS: TEMP 98
[2022-10-14] MEDS: ACIDOPHILUS/BULGARICUS CHEW TAB GT SCH (21:49)
[2022-10-14] MEDS: ASCORBIC ACID 500 MG TABLET GT SCH (21:54)
[2022-10-14] MEDS: NORMAL SALINE NASAL 45 ML BOTTLE NS SCH (21:54)
[2022-10-15] MEDS: PROTEIN SUPPLEMENT (PROSTAT) 30 ML LIQUID GT SCH ×3 (05:05→22:00)
[2022-10-15] MEDS: POLYVINYL ALCOHOL OPHT DROPS 15 ML BOTTLE EACHEYE SCH ×3 (05:05→22:00)
[2022-10-15] MEDS: ARGININE/GLUTAMINE/CALCIUM BMB 1 EACH POWD.PACK GT SCH ×2 (05:05→18:14)
[2022-10-15] MEDS: FAMOTIDINE 20 MG TABLET GT SCH ×2 (05:05→18:14)
[2022-10-15 07:36] VITALS: TEMP 98.1
[2022-10-15] MEDS: HYDROGEN PEROXIDE 3% 118 ML BOTTLE TP SCH ×2 (08:11→19:14)
[2022-10-15] MEDS: ACETAMINOPHEN 650 MG/20.3 ML LIQUID UDC GT SCH ×2 (08:14→20:30)
[2022-10-15] MEDS: levETIRAcetam 500 MG/5 ML LIQUID UDC GT SCH ×2 (08:14→20:51)
[2022-10-15] MEDS: POTASSIUM CHLORIDE 40 MEQ/30 ML LIQUID UDC GT SCH (08:14)
[2022-10-15] MEDS: DIGOXIN 125 MCG TABLET GT SCH (08:14)
[2022-10-15] MEDS: FUROSEMIDE 20 MG TABLET GT SCH (08:14)
[2022-10-15] MEDS: CLOTRIMAZOLE 1% CREAM 30 GM TUBE TP SCH ×2 (08:15→20:53)
[2022-10-15] MEDS: MEDIHONEY= THERAHONEY 1.5 OZ TUBE TOP SCH ×2 (08:15→20:51)
[2022-10-15] MEDS: SERTRALINE HCL 25 MG TABLET GT SCH (08:15)
[2022-10-15] MEDS: REMEDY ESSENTIAL ZINC PASTE 113 GM TP SCH ×2 (08:15→20:53)
[2022-10-15] MEDS: COD LIVER OIL/ZINC OXIDE OINT 113 GM TUBE TP SCH ×2 (08:15→20:53)
[2022-10-15] MEDS: GLUCERNA 1.2 1000ML LIQUID GT PRN (18:14)
[2022-10-15 20:00] VITALS: TEMP 98
[2022-10-15] MEDS: ACIDOPHILUS/BULGARICUS CHEW TAB GT SCH (20:51)
[2022-10-15] MEDS: NORMAL SALINE NASAL 45 ML BOTTLE NS SCH (20:51)
[2022-10-15] MEDS: ASCORBIC ACID 500 MG TABLET GT SCH (20:51)
[2022-10-16] MEDS: FAMOTIDINE 20 MG TABLET GT SCH ×2 (05:10→17:07)
[2022-10-16] MEDS: POLYVINYL ALCOHOL OPHT DROPS 15 ML BOTTLE EACHEYE SCH ×3 (05:10→21:30)
[2022-10-16] MEDS: PROTEIN SUPPLEMENT (PROSTAT) 30 ML LIQUID GT SCH ×3 (05:10→21:30)
[2022-10-16] MEDS: ARGININE/GLUTAMINE/CALCIUM BMB 1 EACH POWD.PACK GT SCH ×2 (05:10→17:07)
[2022-10-16 06:37] LABS: BASOPHILS # (AUTO) 0.1 K/UL (0.0-0.2); EOSINOPHILS # (AUTO) 0.3 K/uL (0.0-0.7); EOSINOPHILS % (AUTO) 5.1 % (0.0-7.0); HEMATOCRIT 40.5 % (31.2-41.9); HEMOGLOBIN 13.2 g/dL (10.9-14.3); LYMPHOCYTES # (AUTO) 1.8 K/uL (0.8-4.8); LYMPHOCYTES % (AUTO) 35.1 % (20.5-51.5); MEAN CORPUSCULAR HEMOGLOBIN 29.5 uug (24.7-32.8); MEAN CORPUSCULAR HGB CONC 33 g/dL (32.3-35.6); MEAN CORPUSCULAR VOLUME 90.5 fL (75.5-95.3); MONOCYTES # (AUTO) 0.6 K/uL (0.1-1.30); MONOCYTES % (AUTO) 11.4 % (0.0-11.0); NEUTROPHILS # (AUTO) 2.4 K/uL (1.8-8.9); NEUTROPHILS % (AUTO) 47.4 % (38.5-71.5); PLATELET COUNT (AUTO) 101 K/uL (179-408); RED BLOOD CELL COUNT(AUTO) 4.48 MIL/uL (3.63-4.92); WHITE BLOOD COUNT (AUTO) 5.1 K/uL (3.8-11.8)
[2022-10-16 06:49] LABS: DIFFERENTIAL COMMENT 1
[2022-10-16 06:54] LABS: CALCIUM 9.4 mg/dL (8.5-10.1); CARBON DIOXIDE 29 mmol/L (21-32); CHLORIDE 111 mmol/L (98-107); CREATININE 0.7 mg/dL (0.6-1.3); GLUCOSE 117 mg/dL (74-106); MAGNESIUM 2.4 mg/dL (1.8-2.4); PHOSPHOROUS 3.7 mg/dL (2.5-4.9); POTASSIUM 3.6 mmol/L (3.5-5.1); SODIUM SERUM 148 mmol/L (136-145); UREA NITROGEN, BLOOD 44 mg/dL (7-18)
[2022-10-16 07:21] VITALS: TEMP 97.8
[2022-10-16] MEDS: levETIRAcetam 500 MG/5 ML LIQUID UDC GT SCH ×2 (08:06→20:49)
[2022-10-16] MEDS: ACETAMINOPHEN 650 MG/20.3 ML LIQUID UDC GT SCH ×2 (08:06→20:49)
[2022-10-16] MEDS: FUROSEMIDE 20 MG TABLET GT SCH (08:07)
[2022-10-16] MEDS: SERTRALINE HCL 25 MG TABLET GT SCH (08:07)
[2022-10-16] MEDS: MEDIHONEY= THERAHONEY 1.5 OZ TUBE TOP SCH ×2 (08:07→20:49)
[2022-10-16] MEDS: DIGOXIN 125 MCG TABLET GT SCH (08:07)
[2022-10-16] MEDS: CLOTRIMAZOLE 1% CREAM 30 GM TUBE TP SCH ×2 (08:07→20:49)
[2022-10-16] MEDS: COD LIVER OIL/ZINC OXIDE OINT 113 GM TUBE TP SCH ×2 (08:07→20:49)
[2022-10-16] MEDS: REMEDY ESSENTIAL ZINC PASTE 113 GM TP SCH ×2 (08:07→20:49)
[2022-10-16] MEDS: POTASSIUM CHLORIDE 40 MEQ/30 ML LIQUID UDC GT SCH (08:07)
[2022-10-16] MEDS: HYDROGEN PEROXIDE 3% 118 ML BOTTLE TP SCH ×2 (08:31→19:40)
[2022-10-16 19:37] VITALS: TEMP 98.2
[2022-10-16] MEDS: NORMAL SALINE NASAL 45 ML BOTTLE NS SCH (20:49)
[2022-10-16] MEDS: ACIDOPHILUS/BULGARICUS CHEW TAB GT SCH (20:49)
[2022-10-16] MEDS: ASCORBIC ACID 500 MG TABLET GT SCH (20:49)
[2022-10-17] MEDS: POLYVINYL ALCOHOL OPHT DROPS 15 ML BOTTLE EACHEYE SCH ×3 (06:22→21:07)
[2022-10-17] MEDS: PROTEIN SUPPLEMENT (PROSTAT) 30 ML LIQUID GT SCH ×3 (06:22→21:07)
[2022-10-17] MEDS: FAMOTIDINE 20 MG TABLET GT SCH ×2 (06:22→18:13)
[2022-10-17] MEDS: ARGININE/GLUTAMINE/CALCIUM BMB 1 EACH POWD.PACK GT SCH ×2 (06:22→18:13)
[2022-10-17] MEDS: GLUCERNA 1.2 1000ML LIQUID GT PRN (06:30)
[2022-10-17 07:17] VITALS: TEMP 98.4
[2022-10-17] MEDS: HYDROGEN PEROXIDE 3% 118 ML BOTTLE TP SCH ×2 (07:17→20:47)
[2022-10-17] MEDS: ACETAMINOPHEN 650 MG/20.3 ML LIQUID UDC GT SCH ×2 (08:04→21:05)
[2022-10-17] MEDS: levETIRAcetam 500 MG/5 ML LIQUID UDC GT SCH ×2 (08:04→21:05)
[2022-10-17] MEDS: DIGOXIN 125 MCG TABLET GT SCH (08:05)
[2022-10-17] MEDS: FUROSEMIDE 20 MG TABLET GT SCH (08:06)
[2022-10-17] MEDS: POTASSIUM CHLORIDE 40 MEQ/30 ML LIQUID UDC GT SCH (08:07)
[2022-10-17] MEDS: SERTRALINE HCL 25 MG TABLET GT SCH (08:07)
[2022-10-17] MEDS: COD LIVER OIL/ZINC OXIDE OINT 113 GM TUBE TP SCH ×2 (08:08→21:06)
[2022-10-17] MEDS: MEDIHONEY= THERAHONEY 1.5 OZ TUBE TOP SCH ×2 (08:08→21:06)
[2022-10-17] MEDS: REMEDY ESSENTIAL ZINC PASTE 113 GM TP SCH ×2 (08:09→21:06)
[2022-10-17] MEDS: CLOTRIMAZOLE 1% CREAM 30 GM TUBE TP SCH ×2 (08:09→21:06)
[2022-10-17 20:26] VITALS: TEMP 98.5
[2022-10-17] MEDS: ACIDOPHILUS/BULGARICUS CHEW TAB GT SCH (21:05)
[2022-10-17] MEDS: ASCORBIC ACID 500 MG TABLET GT SCH (21:05)
[2022-10-17] MEDS: NORMAL SALINE NASAL 45 ML BOTTLE NS SCH (21:06)
[2022-10-18] MEDS: FAMOTIDINE 20 MG TABLET GT SCH ×2 (05:08→17:17)
[2022-10-18] MEDS: PROTEIN SUPPLEMENT (PROSTAT) 30 ML LIQUID GT SCH ×3 (05:08→22:03)
[2022-10-18] MEDS: ARGININE/GLUTAMINE/CALCIUM BMB 1 EACH POWD.PACK GT SCH ×2 (05:08→17:17)
[2022-10-18] MEDS: POLYVINYL ALCOHOL OPHT DROPS 15 ML BOTTLE EACHEYE SCH ×3 (05:09→22:03)
[2022-10-18 07:17] VITALS: TEMP 98.2
[2022-10-18] MEDS: HYDROGEN PEROXIDE 3% 118 ML BOTTLE TP SCH ×2 (07:23→19:01)
[2022-10-18] MEDS: DIGOXIN 125 MCG TABLET GT SCH (08:08)
[2022-10-18] MEDS: FUROSEMIDE 20 MG TABLET GT SCH (08:08)
[2022-10-18] MEDS: SERTRALINE HCL 25 MG TABLET GT SCH (08:08)
[2022-10-18] MEDS: POTASSIUM CHLORIDE 40 MEQ/30 ML LIQUID UDC GT SCH (08:08)
[2022-10-18] MEDS: ACETAMINOPHEN 650 MG/20.3 ML LIQUID UDC GT SCH ×2 (08:08→20:24)
[2022-10-18] MEDS: MEDIHONEY= THERAHONEY 1.5 OZ TUBE TOP SCH ×2 (08:08→20:25)
[2022-10-18] MEDS: levETIRAcetam 500 MG/5 ML LIQUID UDC GT SCH ×2 (08:08→20:24)
[2022-10-18] MEDS: CLOTRIMAZOLE 1% CREAM 30 GM TUBE TP SCH ×2 (08:09→20:25)
[2022-10-18] MEDS: REMEDY ESSENTIAL ZINC PASTE 113 GM TP SCH ×2 (08:09→20:25)
[2022-10-18] MEDS: COD LIVER OIL/ZINC OXIDE OINT 113 GM TUBE TP SCH ×2 (08:09→20:25)
[2022-10-18] MEDS: GLUCERNA 1.2 1000ML LIQUID GT PRN (10:06)
[2022-10-18 20:09] VITALS: TEMP 98.3
[2022-10-18] MEDS: ACIDOPHILUS/BULGARICUS CHEW TAB GT SCH (20:24)
[2022-10-18] MEDS: NORMAL SALINE NASAL 45 ML BOTTLE NS SCH (20:25)
[2022-10-18] MEDS: ASCORBIC ACID 500 MG TABLET GT SCH (20:25)
[2022-10-19] MEDS: ARGININE/GLUTAMINE/CALCIUM BMB 1 EACH POWD.PACK GT SCH ×2 (05:19→18:07)
[2022-10-19] MEDS: POLYVINYL ALCOHOL OPHT DROPS 15 ML BOTTLE EACHEYE SCH ×3 (05:19→22:27)
[2022-10-19] MEDS: FAMOTIDINE 20 MG TABLET GT SCH ×2 (05:19→18:07)
[2022-10-19] MEDS: PROTEIN SUPPLEMENT (PROSTAT) 30 ML LIQUID GT SCH ×3 (05:19→22:27)
[2022-10-19 08:00] VITALS: TEMP 97.5
[2022-10-19] MEDS: HYDROGEN PEROXIDE 3% 118 ML BOTTLE TP SCH ×2 (08:31→18:51)
[2022-10-19] MEDS: ACETAMINOPHEN 650 MG/20.3 ML LIQUID UDC GT SCH ×2 (09:18→20:15)
[2022-10-19] MEDS: levETIRAcetam 500 MG/5 ML LIQUID UDC GT SCH ×2 (09:18→20:15)
[2022-10-19] MEDS: COD LIVER OIL/ZINC OXIDE OINT 113 GM TUBE TP SCH ×2 (09:19→20:15)
[2022-10-19] MEDS: POTASSIUM CHLORIDE 40 MEQ/30 ML LIQUID UDC GT SCH (09:19)
[2022-10-19] MEDS: MEDIHONEY= THERAHONEY 1.5 OZ TUBE TOP SCH ×2 (09:19→20:15)
[2022-10-19] MEDS: DIGOXIN 125 MCG TABLET GT SCH (09:19)
[2022-10-19] MEDS: REMEDY ESSENTIAL ZINC PASTE 113 GM TP SCH ×2 (09:19→20:15)
[2022-10-19] MEDS: CLOTRIMAZOLE 1% CREAM 30 GM TUBE TP SCH ×2 (09:19→20:15)
[2022-10-19] MEDS: SERTRALINE HCL 25 MG TABLET GT SCH (09:19)
[2022-10-19] MEDS: FUROSEMIDE 20 MG TABLET GT SCH (09:19)
[2022-10-19] MEDS: GLUCERNA 1.2 1000ML LIQUID GT PRN (15:45)
[2022-10-19] MEDS: ACIDOPHILUS/BULGARICUS CHEW TAB GT SCH (20:15)
[2022-10-19] MEDS: ASCORBIC ACID 500 MG TABLET GT SCH (20:15)
[2022-10-19] MEDS: NORMAL SALINE NASAL 45 ML BOTTLE NS SCH (20:15)
[2022-10-19 20:27] VITALS: TEMP 98.8; TEMP 99.1
[2022-10-20] MEDS: FAMOTIDINE 20 MG TABLET GT SCH ×2 (05:09→17:18)
[2022-10-20] MEDS: POLYVINYL ALCOHOL OPHT DROPS 15 ML BOTTLE EACHEYE SCH ×3 (05:09→22:00)
[2022-10-20] MEDS: ARGININE/GLUTAMINE/CALCIUM BMB 1 EACH POWD.PACK GT SCH ×2 (05:09→17:18)
[2022-10-20] MEDS: PROTEIN SUPPLEMENT (PROSTAT) 30 ML LIQUID GT SCH ×3 (05:09→22:00)
[2022-10-20 07:20] LABS: CALCIUM 9.2 mg/dL (8.5-10.1); CARBON DIOXIDE 27 mmol/L (21-32); CHLORIDE 112 mmol/L (98-107); CREATININE 0.6 mg/dL (0.6-1.3); GLUCOSE 117 mg/dL (74-106); POTASSIUM 3.8 mmol/L (3.5-5.1); SODIUM SERUM 148 mmol/L (136-145); UREA NITROGEN, BLOOD 51 mg/dL (7-18)
[2022-10-20 08:00] VITALS: TEMP 97.5
[2022-10-20] MEDS: ACETAMINOPHEN 650 MG/20.3 ML LIQUID UDC GT SCH ×2 (08:08→20:12)
[2022-10-20] MEDS: FUROSEMIDE 20 MG TABLET GT SCH (08:08)
[2022-10-20] MEDS: levETIRAcetam 500 MG/5 ML LIQUID UDC GT SCH ×2 (08:08→20:12)
[2022-10-20] MEDS: POTASSIUM CHLORIDE 40 MEQ/30 ML LIQUID UDC GT SCH (08:08)
[2022-10-20] MEDS: DIGOXIN 125 MCG TABLET GT SCH (08:08)
[2022-10-20] MEDS: MEDIHONEY= THERAHONEY 1.5 OZ TUBE TOP SCH ×2 (08:09→20:13)
[2022-10-20] MEDS: COD LIVER OIL/ZINC OXIDE OINT 113 GM TUBE TP SCH ×2 (08:09→20:13)
[2022-10-20] MEDS: CLOTRIMAZOLE 1% CREAM 30 GM TUBE TP SCH ×2 (08:09→20:13)
[2022-10-20] MEDS: SERTRALINE HCL 25 MG TABLET GT SCH (08:09)
[2022-10-20] MEDS: REMEDY ESSENTIAL ZINC PASTE 113 GM TP SCH ×2 (08:10→20:13)
[2022-10-20] MEDS: HYDROGEN PEROXIDE 3% 118 ML BOTTLE TP SCH ×2 (09:59→19:02)
[2022-10-20 20:00] VITALS: TEMP 99.3
[2022-10-20] MEDS: ACIDOPHILUS/BULGARICUS CHEW TAB GT SCH (20:12)
[2022-10-20] MEDS: ASCORBIC ACID 500 MG TABLET GT SCH (20:12)
[2022-10-20] MEDS: NORMAL SALINE NASAL 45 ML BOTTLE NS SCH (20:13)
[2022-10-21] MEDS: GLUCERNA 1.2 1000ML LIQUID GT PRN (05:00)
[2022-10-21] MEDS: ARGININE/GLUTAMINE/CALCIUM BMB 1 EACH POWD.PACK GT SCH ×2 (05:00→18:28)
[2022-10-21] MEDS: PROTEIN SUPPLEMENT (PROSTAT) 30 ML LIQUID GT SCH ×3 (05:00→21:32)
[2022-10-21] MEDS: POLYVINYL ALCOHOL OPHT DROPS 15 ML BOTTLE EACHEYE SCH ×3 (05:00→21:31)
[2022-10-21] MEDS: FAMOTIDINE 20 MG TABLET GT SCH ×2 (05:00→18:28)
[2022-10-21] MEDS: HYDROGEN PEROXIDE 3% 118 ML BOTTLE TP SCH ×2 (07:18→19:06)
[2022-10-21 08:00] VITALS: TEMP 97.6
[2022-10-21] MEDS: levETIRAcetam 500 MG/5 ML LIQUID UDC GT SCH ×2 (08:31→21:31)
[2022-10-21] MEDS: ACETAMINOPHEN 650 MG/20.3 ML LIQUID UDC GT SCH ×2 (08:31→20:30)
[2022-10-21] MEDS: DIGOXIN 125 MCG TABLET GT SCH (08:32)
[2022-10-21] MEDS: FUROSEMIDE 20 MG TABLET GT SCH (08:33)
[2022-10-21] MEDS: POTASSIUM CHLORIDE 40 MEQ/30 ML LIQUID UDC GT SCH (08:33)
[2022-10-21] MEDS: SERTRALINE HCL 25 MG TABLET GT SCH (08:33)
[2022-10-21] MEDS: CLOTRIMAZOLE 1% CREAM 30 GM TUBE TP SCH ×2 (08:34→21:31)
[2022-10-21] MEDS: MEDIHONEY= THERAHONEY 1.5 OZ TUBE TOP SCH ×2 (08:34→21:31)
[2022-10-21] MEDS: COD LIVER OIL/ZINC OXIDE OINT 113 GM TUBE TP SCH ×2 (08:34→21:31)
[2022-10-21] MEDS: REMEDY ESSENTIAL ZINC PASTE 113 GM TP SCH ×2 (08:35→21:31)
[2022-10-21 20:00] VITALS: TEMP 99.2
[2022-10-21] MEDS: NORMAL SALINE NASAL 45 ML BOTTLE NS SCH (21:31)
[2022-10-21] MEDS: ASCORBIC ACID 500 MG TABLET GT SCH (21:31)
[2022-10-21] MEDS: ACIDOPHILUS/BULGARICUS CHEW TAB GT SCH (21:31)
[2022-10-22] MEDS: GLUCERNA 1.2 1000ML LIQUID GT PRN (05:00)
[2022-10-22] MEDS: POLYVINYL ALCOHOL OPHT DROPS 15 ML BOTTLE EACHEYE SCH ×3 (05:34→22:03)
[2022-10-22] MEDS: FAMOTIDINE 20 MG TABLET GT SCH ×2 (05:34→17:00)
[2022-10-22] MEDS: ARGININE/GLUTAMINE/CALCIUM BMB 1 EACH POWD.PACK GT SCH ×2 (05:34→17:00)
[2022-10-22] MEDS: PROTEIN SUPPLEMENT (PROSTAT) 30 ML LIQUID GT SCH ×3 (05:35→22:03)
[2022-10-22 07:28] VITALS: TEMP 98.1
[2022-10-22] MEDS: HYDROGEN PEROXIDE 3% 118 ML BOTTLE TP SCH ×2 (09:00→19:02)
[2022-10-22] MEDS: ACETAMINOPHEN 650 MG/20.3 ML LIQUID UDC GT SCH ×2 (09:13→20:30)
[2022-10-22] MEDS: levETIRAcetam 500 MG/5 ML LIQUID UDC GT SCH ×2 (09:13→21:00)
[2022-10-22] MEDS: SERTRALINE HCL 25 MG TABLET GT SCH (09:14)
[2022-10-22] MEDS: FUROSEMIDE 20 MG TABLET GT SCH (09:14)
[2022-10-22] MEDS: DIGOXIN 125 MCG TABLET GT SCH (09:14)
[2022-10-22] MEDS: POTASSIUM CHLORIDE 40 MEQ/30 ML LIQUID UDC GT SCH (09:14)
[2022-10-22] MEDS: COD LIVER OIL/ZINC OXIDE OINT 113 GM TUBE TP SCH ×2 (09:15→21:00)
[2022-10-22] MEDS: MEDIHONEY= THERAHONEY 1.5 OZ TUBE TOP SCH ×2 (09:15→21:00)
[2022-10-22] MEDS: CLOTRIMAZOLE 1% CREAM 30 GM TUBE TP SCH ×2 (09:15→21:00)
[2022-10-22] MEDS: REMEDY ESSENTIAL ZINC PASTE 113 GM TP SCH ×2 (09:15→21:00)
[2022-10-22 20:00] VITALS: TEMP 99.1
[2022-10-22] MEDS: ASCORBIC ACID 500 MG TABLET GT SCH (21:00)
[2022-10-22] MEDS: ACIDOPHILUS/BULGARICUS CHEW TAB GT SCH (21:00)
[2022-10-22] MEDS: NORMAL SALINE NASAL 45 ML BOTTLE NS SCH (21:00)
[2022-10-23] MEDS: FAMOTIDINE 20 MG TABLET GT SCH ×2 (05:52→17:08)
[2022-10-23] MEDS: ARGININE/GLUTAMINE/CALCIUM BMB 1 EACH POWD.PACK GT SCH ×2 (05:52→17:07)
[2022-10-23] MEDS: POLYVINYL ALCOHOL OPHT DROPS 15 ML BOTTLE EACHEYE SCH ×3 (05:52→21:24)
[2022-10-23] MEDS: PROTEIN SUPPLEMENT (PROSTAT) 30 ML LIQUID GT SCH ×3 (05:52→21:24)
[2022-10-23 07:13] VITALS: TEMP 98.5
[2022-10-23] MEDS: ACETAMINOPHEN 650 MG/20.3 ML LIQUID UDC GT SCH ×2 (08:33→20:42)
[2022-10-23] MEDS: levETIRAcetam 500 MG/5 ML LIQUID UDC GT SCH ×2 (08:34→20:42)
[2022-10-23] MEDS: DIGOXIN 125 MCG TABLET GT SCH (08:34)
[2022-10-23] MEDS: POTASSIUM CHLORIDE 40 MEQ/30 ML LIQUID UDC GT SCH (08:34)
[2022-10-23] MEDS: FUROSEMIDE 20 MG TABLET GT SCH (08:34)
[2022-10-23] MEDS: COD LIVER OIL/ZINC OXIDE OINT 113 GM TUBE TP SCH ×2 (08:35→20:43)
[2022-10-23] MEDS: SERTRALINE HCL 25 MG TABLET GT SCH (08:35)
[2022-10-23] MEDS: MEDIHONEY= THERAHONEY 1.5 OZ TUBE TOP SCH ×2 (08:35→20:43)
[2022-10-23] MEDS: CLOTRIMAZOLE 1% CREAM 30 GM TUBE TP SCH ×2 (08:35→20:43)
[2022-10-23] MEDS: REMEDY ESSENTIAL ZINC PASTE 113 GM TP SCH ×2 (08:35→20:43)
[2022-10-23] MEDS: HYDROGEN PEROXIDE 3% 118 ML BOTTLE TP SCH ×2 (09:20→19:00)
[2022-10-23] MEDS: GLUCERNA 1.2 1000ML LIQUID GT PRN (13:06)
[2022-10-23 20:00] VITALS: TEMP 98.5
[2022-10-23] MEDS: ASCORBIC ACID 500 MG TABLET GT SCH (20:42)
[2022-10-23] MEDS: NORMAL SALINE NASAL 45 ML BOTTLE NS SCH (20:42)
[2022-10-23] MEDS: ACIDOPHILUS/BULGARICUS CHEW TAB GT SCH (20:42)
[2022-10-24] MEDS: ARGININE/GLUTAMINE/CALCIUM BMB 1 EACH POWD.PACK GT SCH ×2 (05:00→17:22)
[2022-10-24] MEDS: PROTEIN SUPPLEMENT (PROSTAT) 30 ML LIQUID GT SCH ×3 (05:00→22:00)
[2022-10-24] MEDS: POLYVINYL ALCOHOL OPHT DROPS 15 ML BOTTLE EACHEYE SCH ×3 (05:00→22:00)
[2022-10-24] MEDS: FAMOTIDINE 20 MG TABLET GT SCH ×2 (05:00→17:22)
[2022-10-24 07:14] VITALS: TEMP 98.3
[2022-10-24] MEDS: HYDROGEN PEROXIDE 3% 118 ML BOTTLE TP SCH ×2 (07:18→21:50)
[2022-10-24] MEDS: ACETAMINOPHEN 650 MG/20.3 ML LIQUID UDC GT SCH ×2 (08:30→20:20)
[2022-10-24] MEDS: DIGOXIN 125 MCG TABLET GT SCH (09:00)
[2022-10-24] MEDS: levETIRAcetam 500 MG/5 ML LIQUID UDC GT SCH ×2 (09:00→20:20)
[2022-10-24] MEDS: CLOTRIMAZOLE 1% CREAM 30 GM TUBE TP SCH ×2 (09:00→20:21)
[2022-10-24] MEDS: POTASSIUM CHLORIDE 40 MEQ/30 ML LIQUID UDC GT SCH (09:00)
[2022-10-24] MEDS: FUROSEMIDE 20 MG TABLET GT SCH (09:00)
[2022-10-24] MEDS: MEDIHONEY= THERAHONEY 1.5 OZ TUBE TOP SCH ×2 (09:00→20:21)
[2022-10-24] MEDS: SERTRALINE HCL 25 MG TABLET GT SCH (09:00)
[2022-10-24] MEDS: COD LIVER OIL/ZINC OXIDE OINT 113 GM TUBE TP SCH ×2 (09:00→20:21)
[2022-10-24] MEDS: REMEDY ESSENTIAL ZINC PASTE 113 GM TP SCH ×2 (09:00→20:21)
[2022-10-24] MEDS: GLUCERNA 1.2 1000ML LIQUID GT PRN (17:22)
[2022-10-24 20:00] VITALS: TEMP 99.1
[2022-10-24] MEDS: ACIDOPHILUS/BULGARICUS CHEW TAB GT SCH (20:20)
[2022-10-24] MEDS: ASCORBIC ACID 500 MG TABLET GT SCH (20:21)
[2022-10-24] MEDS: NORMAL SALINE NASAL 45 ML BOTTLE NS SCH (20:21)
[2022-10-25] MEDS: POLYVINYL ALCOHOL OPHT DROPS 15 ML BOTTLE EACHEYE SCH ×3 (05:02→21:29)
[2022-10-25] MEDS: PROTEIN SUPPLEMENT (PROSTAT) 30 ML LIQUID GT SCH ×3 (05:02→21:29)
[2022-10-25] MEDS: ARGININE/GLUTAMINE/CALCIUM BMB 1 EACH POWD.PACK GT SCH ×2 (05:02→17:26)
[2022-10-25] MEDS: FAMOTIDINE 20 MG TABLET GT SCH ×2 (05:02→17:26)
[2022-10-25 07:18] VITALS: TEMP 97.9
[2022-10-25] MEDS: HYDROGEN PEROXIDE 3% 118 ML BOTTLE TP SCH ×2 (07:51→20:43)
[2022-10-25] MEDS: levETIRAcetam 500 MG/5 ML LIQUID UDC GT SCH ×2 (08:25→21:28)
[2022-10-25] MEDS: ACETAMINOPHEN 650 MG/20.3 ML LIQUID UDC GT SCH ×2 (08:25→21:28)
[2022-10-25] MEDS: POTASSIUM CHLORIDE 40 MEQ/30 ML LIQUID UDC GT SCH (08:27)
[2022-10-25] MEDS: COD LIVER OIL/ZINC OXIDE OINT 113 GM TUBE TP SCH ×2 (08:27→21:28)
[2022-10-25] MEDS: DIGOXIN 125 MCG TABLET GT SCH (08:27)
[2022-10-25] MEDS: FUROSEMIDE 20 MG TABLET GT SCH (08:27)
[2022-10-25] MEDS: REMEDY ESSENTIAL ZINC PASTE 113 GM TP SCH ×2 (08:27→21:29)
[2022-10-25] MEDS: MEDIHONEY= THERAHONEY 1.5 OZ TUBE TOP SCH ×2 (08:27→21:28)
[2022-10-25] MEDS: CLOTRIMAZOLE 1% CREAM 30 GM TUBE TP SCH ×2 (08:27→21:28)
[2022-10-25] MEDS: SERTRALINE HCL 25 MG TABLET GT SCH (08:27)
[2022-10-25] MEDS: GLUCERNA 1.2 1000ML LIQUID GT PRN (17:26)
[2022-10-25 20:00] VITALS: TEMP 98.4
[2022-10-25] MEDS: NORMAL SALINE NASAL 45 ML BOTTLE NS SCH (21:28)
[2022-10-25] MEDS: ACIDOPHILUS/BULGARICUS CHEW TAB GT SCH (21:28)
[2022-10-25] MEDS: ASCORBIC ACID 500 MG TABLET GT SCH (21:28)
[2022-10-26] MEDS: ARGININE/GLUTAMINE/CALCIUM BMB 1 EACH POWD.PACK GT SCH ×2 (05:13→17:05)
[2022-10-26] MEDS: FAMOTIDINE 20 MG TABLET GT SCH ×2 (05:13→17:05)
[2022-10-26] MEDS: PROTEIN SUPPLEMENT (PROSTAT) 30 ML LIQUID GT SCH ×3 (05:13→22:00)
[2022-10-26] MEDS: POLYVINYL ALCOHOL OPHT DROPS 15 ML BOTTLE EACHEYE SCH ×3 (05:13→22:00)
[2022-10-26 07:20] VITALS: TEMP 98.6
[2022-10-26] MEDS: levETIRAcetam 500 MG/5 ML LIQUID UDC GT SCH ×2 (08:28→20:31)
[2022-10-26] MEDS: ACETAMINOPHEN 650 MG/20.3 ML LIQUID UDC GT SCH ×2 (08:28→20:31)
[2022-10-26] MEDS: DIGOXIN 125 MCG TABLET GT SCH (08:30)
[2022-10-26] MEDS: FUROSEMIDE 20 MG TABLET GT SCH (08:30)
[2022-10-26] MEDS: POTASSIUM CHLORIDE 40 MEQ/30 ML LIQUID UDC GT SCH (08:30)
[2022-10-26] MEDS: REMEDY ESSENTIAL ZINC PASTE 113 GM TP SCH ×2 (08:31→20:38)
[2022-10-26] MEDS: COD LIVER OIL/ZINC OXIDE OINT 113 GM TUBE TP SCH ×2 (08:31→20:38)
[2022-10-26] MEDS: CLOTRIMAZOLE 1% CREAM 30 GM TUBE TP SCH ×2 (08:31→20:38)
[2022-10-26] MEDS: SERTRALINE HCL 25 MG TABLET GT SCH (08:31)
[2022-10-26] MEDS: MEDIHONEY= THERAHONEY 1.5 OZ TUBE TOP SCH ×2 (08:31→20:37)
[2022-10-26] MEDS: HYDROGEN PEROXIDE 3% 118 ML BOTTLE TP SCH ×2 (09:42→19:09)
[2022-10-26 20:00] VITALS: TEMP 98.8
[2022-10-26] MEDS: ASCORBIC ACID 500 MG TABLET GT SCH (20:31)
[2022-10-26] MEDS: ACIDOPHILUS/BULGARICUS CHEW TAB GT SCH (20:31)
[2022-10-26] MEDS: NORMAL SALINE NASAL 45 ML BOTTLE NS SCH (20:37)
[2022-10-27] MEDS: POLYVINYL ALCOHOL OPHT DROPS 15 ML BOTTLE EACHEYE SCH ×3 (05:05→22:55)
[2022-10-27] MEDS: PROTEIN SUPPLEMENT (PROSTAT) 30 ML LIQUID GT SCH ×3 (05:05→22:55)
[2022-10-27] MEDS: ARGININE/GLUTAMINE/CALCIUM BMB 1 EACH POWD.PACK GT SCH ×2 (05:05→18:00)
[2022-10-27] MEDS: FAMOTIDINE 20 MG TABLET GT SCH ×2 (05:05→18:00)
[2022-10-27] MEDS: HYDROGEN PEROXIDE 3% 118 ML BOTTLE TP SCH ×2 (07:16→19:19)
[2022-10-27 08:00] VITALS: TEMP 98.8
[2022-10-27] MEDS: ACETAMINOPHEN 650 MG/20.3 ML LIQUID UDC GT SCH ×2 (09:15→20:30)
[2022-10-27] MEDS: levETIRAcetam 500 MG/5 ML LIQUID UDC GT SCH ×2 (09:15→20:49)
[2022-10-27] MEDS: POTASSIUM CHLORIDE 40 MEQ/30 ML LIQUID UDC GT SCH (09:16)
[2022-10-27] MEDS: FUROSEMIDE 20 MG TABLET GT SCH (09:16)
[2022-10-27] MEDS: DIGOXIN 125 MCG TABLET GT SCH (09:16)
[2022-10-27] MEDS: SERTRALINE HCL 25 MG TABLET GT SCH (09:17)
[2022-10-27] MEDS: REMEDY ESSENTIAL ZINC PASTE 113 GM TP SCH ×2 (09:17→20:49)
[2022-10-27] MEDS: CLOTRIMAZOLE 1% CREAM 30 GM TUBE TP SCH ×2 (09:17→20:49)
[2022-10-27] MEDS: MEDIHONEY= THERAHONEY 1.5 OZ TUBE TOP SCH ×2 (09:17→20:49)
[2022-10-27] MEDS: COD LIVER OIL/ZINC OXIDE OINT 113 GM TUBE TP SCH ×2 (09:17→20:49)
[2022-10-27 20:00] VITALS: TEMP 99.1
[2022-10-27] MEDS: ACIDOPHILUS/BULGARICUS CHEW TAB GT SCH (20:48)
[2022-10-27] MEDS: ASCORBIC ACID 500 MG TABLET GT SCH (20:49)
[2022-10-27] MEDS: NORMAL SALINE NASAL 45 ML BOTTLE NS SCH (20:49)
[2022-10-28] MEDS: POLYVINYL ALCOHOL OPHT DROPS 15 ML BOTTLE EACHEYE SCH ×3 (05:15→21:15)
[2022-10-28] MEDS: PROTEIN SUPPLEMENT (PROSTAT) 30 ML LIQUID GT SCH ×3 (05:15→21:15)
[2022-10-28] MEDS: ARGININE/GLUTAMINE/CALCIUM BMB 1 EACH POWD.PACK GT SCH ×2 (05:15→16:49)
[2022-10-28] MEDS: FAMOTIDINE 20 MG TABLET GT SCH ×2 (05:15→16:49)
[2022-10-28 08:00] VITALS: TEMP 98.2
[2022-10-28] MEDS: ACETAMINOPHEN 650 MG/20.3 ML LIQUID UDC GT SCH ×2 (08:30→20:30)
[2022-10-28] MEDS: HYDROGEN PEROXIDE 3% 118 ML BOTTLE TP SCH ×2 (09:00→19:19)
[2022-10-28] MEDS: POTASSIUM CHLORIDE 40 MEQ/30 ML LIQUID UDC GT SCH (09:27)
[2022-10-28] MEDS: levETIRAcetam 500 MG/5 ML LIQUID UDC GT SCH ×2 (09:28→21:14)
[2022-10-28] MEDS: SERTRALINE HCL 25 MG TABLET GT SCH (09:30)
[2022-10-28] MEDS: FUROSEMIDE 20 MG TABLET GT SCH (09:30)
[2022-10-28] MEDS: DIGOXIN 125 MCG TABLET GT SCH (09:31)
[2022-10-28] MEDS: MEDIHONEY= THERAHONEY 1.5 OZ TUBE TOP SCH ×2 (09:35→21:15)
[2022-10-28] MEDS: CLOTRIMAZOLE 1% CREAM 30 GM TUBE TP SCH ×2 (09:38→21:15)
[2022-10-28] MEDS: REMEDY ESSENTIAL ZINC PASTE 113 GM TP SCH ×2 (09:38→21:15)
[2022-10-28] MEDS: COD LIVER OIL/ZINC OXIDE OINT 113 GM TUBE TP SCH ×2 (09:39→21:15)
[2022-10-28 20:00] VITALS: TEMP 99
[2022-10-28] MEDS: ACIDOPHILUS/BULGARICUS CHEW TAB GT SCH (21:13)
[2022-10-28] MEDS: ASCORBIC ACID 500 MG TABLET GT SCH (21:14)
[2022-10-28] MEDS: NORMAL SALINE NASAL 45 ML BOTTLE NS SCH (21:15)
[2022-10-29] MEDS: ARGININE/GLUTAMINE/CALCIUM BMB 1 EACH POWD.PACK GT SCH ×2 (05:02→17:22)
[2022-10-29] MEDS: PROTEIN SUPPLEMENT (PROSTAT) 30 ML LIQUID GT SCH ×3 (05:02→22:13)
[2022-10-29] MEDS: FAMOTIDINE 20 MG TABLET GT SCH ×2 (05:02→17:22)
[2022-10-29] MEDS: POLYVINYL ALCOHOL OPHT DROPS 15 ML BOTTLE EACHEYE SCH ×3 (05:02→22:13)
[2022-10-29 08:19] VITALS: TEMP 97.4
[2022-10-29] MEDS: HYDROGEN PEROXIDE 3% 118 ML BOTTLE TP SCH ×2 (08:30→19:08)
[2022-10-29] MEDS: ACETAMINOPHEN 650 MG/20.3 ML LIQUID UDC GT SCH ×2 (08:30→20:09)
[2022-10-29] MEDS: POTASSIUM CHLORIDE 40 MEQ/30 ML LIQUID UDC GT SCH (09:44)
[2022-10-29] MEDS: FUROSEMIDE 20 MG TABLET GT SCH (09:44)
[2022-10-29] MEDS: levETIRAcetam 500 MG/5 ML LIQUID UDC GT SCH ×2 (09:44→20:09)
[2022-10-29] MEDS: DIGOXIN 125 MCG TABLET GT SCH (09:45)
[2022-10-29] MEDS: SERTRALINE HCL 25 MG TABLET GT SCH (09:45)
[2022-10-29] MEDS: REMEDY ESSENTIAL ZINC PASTE 113 GM TP SCH ×2 (09:46→20:10)
[2022-10-29] MEDS: COD LIVER OIL/ZINC OXIDE OINT 113 GM TUBE TP SCH ×2 (09:46→20:10)
[2022-10-29] MEDS: MEDIHONEY= THERAHONEY 1.5 OZ TUBE TOP SCH ×2 (09:46→20:10)
[2022-10-29] MEDS: CLOTRIMAZOLE 1% CREAM 30 GM TUBE TP SCH ×2 (09:46→20:10)
[2022-10-29 20:00] VITALS: TEMP 98.4
[2022-10-29] MEDS: ASCORBIC ACID 500 MG TABLET GT SCH (20:09)
[2022-10-29] MEDS: ACIDOPHILUS/BULGARICUS CHEW TAB GT SCH (20:09)
[2022-10-29] MEDS: NORMAL SALINE NASAL 45 ML BOTTLE NS SCH (20:10)
[2022-10-29 21:20] VITALS: TEMP 98.3
[2022-10-30] MEDS: PROTEIN SUPPLEMENT (PROSTAT) 30 ML LIQUID GT SCH ×3 (05:07→21:46)
[2022-10-30] MEDS: FAMOTIDINE 20 MG TABLET GT SCH ×2 (05:07→18:14)
[2022-10-30] MEDS: ARGININE/GLUTAMINE/CALCIUM BMB 1 EACH POWD.PACK GT SCH ×2 (05:07→18:14)
[2022-10-30] MEDS: POLYVINYL ALCOHOL OPHT DROPS 15 ML BOTTLE EACHEYE SCH ×3 (05:07→21:46)
[2022-10-30 07:24] VITALS: TEMP 98.3
[2022-10-30] MEDS: ACETAMINOPHEN 650 MG/20.3 ML LIQUID UDC GT SCH ×2 (08:30→20:05)
[2022-10-30] MEDS: HYDROGEN PEROXIDE 3% 118 ML BOTTLE TP SCH ×2 (08:41→19:22)
[2022-10-30] MEDS: FUROSEMIDE 20 MG TABLET GT SCH (09:00)
[2022-10-30] MEDS: DIGOXIN 125 MCG TABLET GT SCH (09:00)
[2022-10-30] MEDS: levETIRAcetam 500 MG/5 ML LIQUID UDC GT SCH ×2 (09:00→20:06)
[2022-10-30] MEDS: SERTRALINE HCL 25 MG TABLET GT SCH (09:00)
[2022-10-30] MEDS: CLOTRIMAZOLE 1% CREAM 30 GM TUBE TP SCH ×2 (09:00→20:06)
[2022-10-30] MEDS: POTASSIUM CHLORIDE 40 MEQ/30 ML LIQUID UDC GT SCH (09:00)
[2022-10-30] MEDS: COD LIVER OIL/ZINC OXIDE OINT 113 GM TUBE TP SCH ×2 (09:00→20:06)
[2022-10-30] MEDS: REMEDY ESSENTIAL ZINC PASTE 113 GM TP SCH ×2 (09:00→20:06)
[2022-10-30] MEDS: MEDIHONEY= THERAHONEY 1.5 OZ TUBE TOP SCH ×2 (09:00→20:06)
[2022-10-30 20:00] VITALS: TEMP 98.7
[2022-10-30] MEDS: ASCORBIC ACID 500 MG TABLET GT SCH (20:06)
[2022-10-30] MEDS: ACIDOPHILUS/BULGARICUS CHEW TAB GT SCH (20:06)
[2022-10-30] MEDS: NORMAL SALINE NASAL 45 ML BOTTLE NS SCH (20:06)
[2022-10-31] MEDS: PROTEIN SUPPLEMENT (PROSTAT) 30 ML LIQUID GT SCH ×3 (05:23→21:42)
[2022-10-31] MEDS: FAMOTIDINE 20 MG TABLET GT SCH ×2 (05:23→17:43)
[2022-10-31] MEDS: ARGININE/GLUTAMINE/CALCIUM BMB 1 EACH POWD.PACK GT SCH ×2 (05:23→17:43)
[2022-10-31] MEDS: POLYVINYL ALCOHOL OPHT DROPS 15 ML BOTTLE EACHEYE SCH ×3 (05:23→21:42)
[2022-10-31 07:17] VITALS: TEMP 97.1
[2022-10-31 07:32] LABS: CALCIUM 9.2 mg/dL (8.5-10.1); CREATININE 0.6 mg/dL (0.6-1.3); MAGNESIUM 2.5 mg/dL (1.8-2.4); POTASSIUM 3.8 mmol/L (3.5-5.1)
[2022-10-31] MEDS: levETIRAcetam 500 MG/5 ML LIQUID UDC GT SCH ×2 (08:07→20:03)
[2022-10-31] MEDS: ACETAMINOPHEN 650 MG/20.3 ML LIQUID UDC GT SCH ×2 (08:07→20:03)
[2022-10-31] MEDS: POTASSIUM CHLORIDE 40 MEQ/30 ML LIQUID UDC GT SCH (08:08)
[2022-10-31] MEDS: FUROSEMIDE 20 MG TABLET GT SCH (08:08)
[2022-10-31] MEDS: DIGOXIN 125 MCG TABLET GT SCH (08:08)
[2022-10-31] MEDS: MEDIHONEY= THERAHONEY 1.5 OZ TUBE TOP SCH ×2 (08:08→20:03)
[2022-10-31] MEDS: COD LIVER OIL/ZINC OXIDE OINT 113 GM TUBE TP SCH ×2 (08:08→20:03)
[2022-10-31] MEDS: SERTRALINE HCL 25 MG TABLET GT SCH (08:08)
[2022-10-31] MEDS: CLOTRIMAZOLE 1% CREAM 30 GM TUBE TP SCH ×2 (08:11→20:03)
[2022-10-31] MEDS: REMEDY ESSENTIAL ZINC PASTE 113 GM TP SCH ×2 (08:11→20:03)
[2022-10-31] MEDS: HYDROGEN PEROXIDE 3% 118 ML BOTTLE TP SCH ×2 (08:20→19:08)
[2022-10-31] MEDS: GLUCERNA 1.2 1000ML LIQUID GT PRN (14:52)
[2022-10-31 20:00] VITALS: TEMP 98.8
[2022-10-31] MEDS: ASCORBIC ACID 500 MG TABLET GT SCH (20:03)
[2022-10-31] MEDS: NORMAL SALINE NASAL 45 ML BOTTLE NS SCH (20:03)
[2022-10-31] MEDS: ACIDOPHILUS/BULGARICUS CHEW TAB GT SCH (20:03)
[2022-11-01] MEDS: POLYVINYL ALCOHOL OPHT DROPS 15 ML BOTTLE EACHEYE SCH ×3 (05:59→22:32)
[2022-11-01] MEDS: ARGININE/GLUTAMINE/CALCIUM BMB 1 EACH POWD.PACK GT SCH ×2 (05:59→17:32)
[2022-11-01] MEDS: PROTEIN SUPPLEMENT (PROSTAT) 30 ML LIQUID GT SCH ×3 (05:59→22:32)
[2022-11-01] MEDS: FAMOTIDINE 20 MG TABLET GT SCH ×2 (05:59→17:33)
[2022-11-01 07:17] VITALS: TEMP 98.5
[2022-11-01] MEDS: ACETAMINOPHEN 650 MG/20.3 ML LIQUID UDC GT SCH ×2 (08:30→20:26)
[2022-11-01] MEDS: REMEDY ESSENTIAL ZINC PASTE 113 GM TP SCH ×2 (09:00→20:27)
[2022-11-01] MEDS: FUROSEMIDE 20 MG TABLET GT SCH (09:00)
[2022-11-01] MEDS: POTASSIUM CHLORIDE 40 MEQ/30 ML LIQUID UDC GT SCH (09:00)
[2022-11-01] MEDS: SERTRALINE HCL 25 MG TABLET GT SCH (09:00)
[2022-11-01] MEDS: levETIRAcetam 500 MG/5 ML LIQUID UDC GT SCH ×2 (09:00→20:26)
[2022-11-01] MEDS: DIGOXIN 125 MCG TABLET GT SCH (09:00)
[2022-11-01] MEDS: HYDROGEN PEROXIDE 3% 118 ML BOTTLE TP SCH ×2 (09:00→20:21)
[2022-11-01] MEDS ORDERED: CLOTRIMAZOLE 1% CREAM 30 GM TUBE TP PRN (16:15)
[2022-11-01] MEDS ORDERED: COD LIVER OIL/ZINC OXIDE OINT 113 GM TUBE TP PRN ×2 (16:15)
[2022-11-01] MEDS ORDERED: MEDIHONEY= THERAHONEY 1.5 OZ TUBE TOP PRN (16:15)
[2022-11-01] MEDS: GLUCERNA 1.2 1000ML LIQUID GT PRN (17:49)
[2022-11-01 20:00] VITALS: TEMP 98.8
[2022-11-01] MEDS: ASCORBIC ACID 500 MG TABLET GT SCH (20:26)
[2022-11-01] MEDS: MEDIHONEY= THERAHONEY 1.5 OZ TUBE TOP SCH (20:26)
[2022-11-01] MEDS: ACIDOPHILUS/BULGARICUS CHEW TAB GT SCH (20:26)
[2022-11-01] MEDS: NORMAL SALINE NASAL 45 ML BOTTLE NS SCH (20:26)
[2022-11-01] MEDS: COD LIVER OIL/ZINC OXIDE OINT 113 GM TUBE TP SCH (20:27)
[2022-11-01] MEDS: CLOTRIMAZOLE 1% CREAM 30 GM TUBE TP SCH (20:27)
[2022-11-02] MEDS: ARGININE/GLUTAMINE/CALCIUM BMB 1 EACH POWD.PACK GT SCH ×2 (05:02→18:49)
[2022-11-02] MEDS: FAMOTIDINE 20 MG TABLET GT SCH ×2 (05:02→18:50)
[2022-11-02] MEDS: POLYVINYL ALCOHOL OPHT DROPS 15 ML BOTTLE EACHEYE SCH ×3 (05:02→21:54)
[2022-11-02] MEDS: PROTEIN SUPPLEMENT (PROSTAT) 30 ML LIQUID GT SCH ×3 (05:03→21:54)
[2022-11-02] MEDS: HYDROGEN PEROXIDE 3% 118 ML BOTTLE TP SCH ×2 (07:22→20:36)
[2022-11-02 08:00] VITALS: TEMP 97.3
[2022-11-02] MEDS: REMEDY ESSENTIAL ZINC PASTE 113 GM TP SCH ×2 (09:00→20:02)
[2022-11-02] MEDS: MEDIHONEY= THERAHONEY 1.5 OZ TUBE TOP SCH ×2 (09:00→20:02)
[2022-11-02] MEDS: CLOTRIMAZOLE 1% CREAM 30 GM TUBE TP SCH ×2 (09:00→20:02)
[2022-11-02] MEDS: COD LIVER OIL/ZINC OXIDE OINT 113 GM TUBE TP SCH ×2 (09:00→20:02)
[2022-11-02] MEDS: ACETAMINOPHEN 650 MG/20.3 ML LIQUID UDC GT SCH ×2 (09:28→20:01)
[2022-11-02] MEDS: levETIRAcetam 500 MG/5 ML LIQUID UDC GT SCH ×2 (09:29→20:02)
[2022-11-02] MEDS: DIGOXIN 125 MCG TABLET GT SCH (09:29)
[2022-11-02] MEDS: FUROSEMIDE 20 MG TABLET GT SCH (09:29)
[2022-11-02] MEDS: POTASSIUM CHLORIDE 40 MEQ/30 ML LIQUID UDC GT SCH (09:30)
[2022-11-02] MEDS: SERTRALINE HCL 25 MG TABLET GT SCH (09:30)
[2022-11-02 20:00] VITALS: TEMP 98.8
[2022-11-02] MEDS: ACIDOPHILUS/BULGARICUS CHEW TAB GT SCH (20:01)
[2022-11-02] MEDS: ASCORBIC ACID 500 MG TABLET GT SCH (20:02)
[2022-11-02] MEDS: NORMAL SALINE NASAL 45 ML BOTTLE NS SCH (20:02)
[2022-11-02] MEDS: GLUCERNA 1.2 1000ML LIQUID GT PRN (21:55)
[2022-11-03] MEDS: PROTEIN SUPPLEMENT (PROSTAT) 30 ML LIQUID GT SCH ×3 (05:19→22:24)
[2022-11-03] MEDS: POLYVINYL ALCOHOL OPHT DROPS 15 ML BOTTLE EACHEYE SCH ×3 (05:19→22:24)
[2022-11-03] MEDS: FAMOTIDINE 20 MG TABLET GT SCH ×2 (05:19→17:43)
[2022-11-03] MEDS: ARGININE/GLUTAMINE/CALCIUM BMB 1 EACH POWD.PACK GT SCH ×2 (05:19→17:43)
[2022-11-03 08:00] VITALS: TEMP 97.3
[2022-11-03] MEDS: HYDROGEN PEROXIDE 3% 118 ML BOTTLE TP SCH ×2 (09:00→21:00)
[2022-11-03] MEDS: levETIRAcetam 500 MG/5 ML LIQUID UDC GT SCH ×2 (09:03→21:00)
[2022-11-03] MEDS: ACETAMINOPHEN 650 MG/20.3 ML LIQUID UDC GT SCH ×2 (09:03→20:30)
[2022-11-03] MEDS: DIGOXIN 125 MCG TABLET GT SCH (09:04)
[2022-11-03] MEDS: POTASSIUM CHLORIDE 40 MEQ/30 ML LIQUID UDC GT SCH (09:04)
[2022-11-03] MEDS: MEDIHONEY= THERAHONEY 1.5 OZ TUBE TOP SCH ×2 (09:04→21:00)
[2022-11-03] MEDS: REMEDY ESSENTIAL ZINC PASTE 113 GM TP SCH ×2 (09:04→21:00)
[2022-11-03] MEDS: SERTRALINE HCL 25 MG TABLET GT SCH (09:04)
[2022-11-03] MEDS: FUROSEMIDE 20 MG TABLET GT SCH (09:04)
[2022-11-03] MEDS: COD LIVER OIL/ZINC OXIDE OINT 113 GM TUBE TP SCH ×2 (09:04→21:00)
[2022-11-03] MEDS: CLOTRIMAZOLE 1% CREAM 30 GM TUBE TP SCH ×2 (09:04→21:00)
[2022-11-03] MEDS: ASCORBIC ACID 500 MG TABLET GT SCH (21:00)
[2022-11-03] MEDS: NORMAL SALINE NASAL 45 ML BOTTLE NS SCH (21:00)
[2022-11-03] MEDS: ACIDOPHILUS/BULGARICUS CHEW TAB GT SCH (21:00)
[2022-11-04 08:00] VITALS: TEMP 98.3
[2022-11-04] MEDS: ACETAMINOPHEN 650 MG/20.3 ML LIQUID UDC GT SCH ×2 (08:30→20:30)
[2022-11-04] MEDS: HYDROGEN PEROXIDE 3% 118 ML BOTTLE TP SCH ×2 (08:37→19:23)
[2022-11-04] MEDS: DIGOXIN 125 MCG TABLET GT SCH (09:00)
[2022-11-04] MEDS: levETIRAcetam 500 MG/5 ML LIQUID UDC GT SCH ×2 (09:00→21:56)
[2022-11-04] MEDS: COD LIVER OIL/ZINC OXIDE OINT 113 GM TUBE TP SCH ×2 (09:00→21:59)
[2022-11-04] MEDS: MEDIHONEY= THERAHONEY 1.5 OZ TUBE TOP SCH ×2 (09:00→21:58)
[2022-11-04] MEDS: FUROSEMIDE 20 MG TABLET GT SCH (09:00)
[2022-11-04] MEDS: POTASSIUM CHLORIDE 40 MEQ/30 ML LIQUID UDC GT SCH (09:00)
[2022-11-04] MEDS: SERTRALINE HCL 25 MG TABLET GT SCH (09:00)
[2022-11-04] MEDS: REMEDY ESSENTIAL ZINC PASTE 113 GM TP SCH ×2 (09:00→21:59)
[2022-11-04] MEDS: CLOTRIMAZOLE 1% CREAM 30 GM TUBE TP SCH ×2 (09:00→21:59)
[2022-11-04] MEDS: POLYVINYL ALCOHOL OPHT DROPS 15 ML BOTTLE EACHEYE SCH ×2 (14:00→21:59)
[2022-11-04] MEDS: PROTEIN SUPPLEMENT (PROSTAT) 30 ML LIQUID GT SCH ×2 (14:00→21:59)
[2022-11-04] MEDS: FAMOTIDINE 20 MG TABLET GT SCH (18:00)
[2022-11-04] MEDS: ARGININE/GLUTAMINE/CALCIUM BMB 1 EACH POWD.PACK GT SCH (18:00)
[2022-11-04 20:00] VITALS: TEMP 98.1
[2022-11-04] MEDS: ACIDOPHILUS/BULGARICUS CHEW TAB GT SCH (21:56)
[2022-11-04] MEDS: NORMAL SALINE NASAL 45 ML BOTTLE NS SCH (21:57)
[2022-11-04] MEDS: ASCORBIC ACID 500 MG TABLET GT SCH (21:57)
[2022-11-05] MEDS: GLUCERNA 1.2 1000ML LIQUID GT PRN (05:00)
[2022-11-05] MEDS: FAMOTIDINE 20 MG TABLET GT SCH ×2 (05:14→17:21)
[2022-11-05] MEDS: PROTEIN SUPPLEMENT (PROSTAT) 30 ML LIQUID GT SCH ×3 (05:14→21:46)
[2022-11-05] MEDS: ARGININE/GLUTAMINE/CALCIUM BMB 1 EACH POWD.PACK GT SCH ×2 (05:14→17:21)
[2022-11-05] MEDS: POLYVINYL ALCOHOL OPHT DROPS 15 ML BOTTLE EACHEYE SCH ×3 (05:14→21:46)
[2022-11-05 08:00] VITALS: TEMP 98
[2022-11-05] MEDS: HYDROGEN PEROXIDE 3% 118 ML BOTTLE TP SCH ×2 (08:22→20:39)
[2022-11-05] MEDS: ACETAMINOPHEN 650 MG/20.3 ML LIQUID UDC GT SCH ×2 (09:10→20:30)
[2022-11-05] MEDS: levETIRAcetam 500 MG/5 ML LIQUID UDC GT SCH ×2 (09:11→21:46)
[2022-11-05] MEDS: FUROSEMIDE 20 MG TABLET GT SCH (09:12)
[2022-11-05] MEDS: DIGOXIN 125 MCG TABLET GT SCH (09:12)
[2022-11-05] MEDS: REMEDY ESSENTIAL ZINC PASTE 113 GM TP SCH ×2 (09:13→21:46)
[2022-11-05] MEDS: CLOTRIMAZOLE 1% CREAM 30 GM TUBE TP SCH ×2 (09:13→21:46)
[2022-11-05] MEDS: MEDIHONEY= THERAHONEY 1.5 OZ TUBE TOP SCH ×2 (09:13→21:46)
[2022-11-05] MEDS: SERTRALINE HCL 25 MG TABLET GT SCH (09:13)
[2022-11-05] MEDS: COD LIVER OIL/ZINC OXIDE OINT 113 GM TUBE TP SCH ×2 (09:13→21:46)
[2022-11-05] MEDS: POTASSIUM CHLORIDE 40 MEQ/30 ML LIQUID UDC GT SCH (09:13)
[2022-11-05 20:00] VITALS: TEMP 98
[2022-11-05] MEDS: ACIDOPHILUS/BULGARICUS CHEW TAB GT SCH (21:44)
[2022-11-05] MEDS: ASCORBIC ACID 500 MG TABLET GT SCH (21:46)
[2022-11-05] MEDS: NORMAL SALINE NASAL 45 ML BOTTLE NS SCH (21:46)
[2022-11-06] MEDS: PROTEIN SUPPLEMENT (PROSTAT) 30 ML LIQUID GT SCH ×3 (06:21→22:00)
[2022-11-06] MEDS: FAMOTIDINE 20 MG TABLET GT SCH ×2 (06:21→17:21)
[2022-11-06] MEDS: POLYVINYL ALCOHOL OPHT DROPS 15 ML BOTTLE EACHEYE SCH ×3 (06:21→22:00)
[2022-11-06] MEDS: ARGININE/GLUTAMINE/CALCIUM BMB 1 EACH POWD.PACK GT SCH ×2 (06:21→17:21)
[2022-11-06 08:06] VITALS: TEMP 98.6
[2022-11-06] MEDS: ACETAMINOPHEN 650 MG/20.3 ML LIQUID UDC GT SCH ×2 (08:08→20:53)
[2022-11-06] MEDS: levETIRAcetam 500 MG/5 ML LIQUID UDC GT SCH ×2 (08:09→20:53)
[2022-11-06] MEDS: DIGOXIN 125 MCG TABLET GT SCH (08:13)
[2022-11-06] MEDS: FUROSEMIDE 20 MG TABLET GT SCH (08:15)
[2022-11-06] MEDS: POTASSIUM CHLORIDE 40 MEQ/30 ML LIQUID UDC GT SCH (08:18)
[2022-11-06] MEDS: SERTRALINE HCL 25 MG TABLET GT SCH (08:18)
[2022-11-06] MEDS: COD LIVER OIL/ZINC OXIDE OINT 113 GM TUBE TP SCH ×2 (08:21→20:56)
[2022-11-06] MEDS: MEDIHONEY= THERAHONEY 1.5 OZ TUBE TOP SCH ×2 (08:21→20:54)
[2022-11-06] MEDS: CLOTRIMAZOLE 1% CREAM 30 GM TUBE TP SCH ×2 (08:23→20:56)
[2022-11-06] MEDS: REMEDY ESSENTIAL ZINC PASTE 113 GM TP SCH ×2 (08:23→20:56)
[2022-11-06] MEDS: HYDROGEN PEROXIDE 3% 118 ML BOTTLE TP SCH ×2 (08:37→19:59)
[2022-11-06] MEDS: GLUCERNA 1.2 1000ML LIQUID GT PRN (14:17)
[2022-11-06 20:00] VITALS: TEMP 98.3
[2022-11-06] MEDS: ACIDOPHILUS/BULGARICUS CHEW TAB GT SCH (20:53)
[2022-11-06] MEDS: ASCORBIC ACID 500 MG TABLET GT SCH (20:53)
[2022-11-06] MEDS: NORMAL SALINE NASAL 45 ML BOTTLE NS SCH (20:53)
[2022-11-07] MEDS: POLYVINYL ALCOHOL OPHT DROPS 15 ML BOTTLE EACHEYE SCH ×3 (05:09→22:16)
[2022-11-07] MEDS: ARGININE/GLUTAMINE/CALCIUM BMB 1 EACH POWD.PACK GT SCH ×2 (05:09→18:01)
[2022-11-07] MEDS: FAMOTIDINE 20 MG TABLET GT SCH ×2 (05:10→18:01)
[2022-11-07] MEDS: PROTEIN SUPPLEMENT (PROSTAT) 30 ML LIQUID GT SCH ×3 (05:10→22:16)
[2022-11-07] MEDS: HYDROGEN PEROXIDE 3% 118 ML BOTTLE TP SCH ×2 (07:23→20:29)
[2022-11-07 07:28] VITALS: TEMP 98.4
[2022-11-07] MEDS: ACETAMINOPHEN 650 MG/20.3 ML LIQUID UDC GT SCH ×2 (08:30→20:28)
[2022-11-07] MEDS: REMEDY ESSENTIAL ZINC PASTE 113 GM TP SCH ×2 (09:50→20:29)
[2022-11-07] MEDS: SERTRALINE HCL 25 MG TABLET GT SCH (09:50)
[2022-11-07] MEDS: POTASSIUM CHLORIDE 40 MEQ/30 ML LIQUID UDC GT SCH (09:50)
[2022-11-07] MEDS: FUROSEMIDE 20 MG TABLET GT SCH (09:50)
[2022-11-07] MEDS: levETIRAcetam 500 MG/5 ML LIQUID UDC GT SCH ×2 (09:50→20:28)
[2022-11-07] MEDS: CLOTRIMAZOLE 1% CREAM 30 GM TUBE TP SCH ×2 (09:50→20:29)
[2022-11-07] MEDS: COD LIVER OIL/ZINC OXIDE OINT 113 GM TUBE TP SCH ×2 (09:50→20:29)
[2022-11-07] MEDS: MEDIHONEY= THERAHONEY 1.5 OZ TUBE TOP SCH ×2 (09:50→20:29)
[2022-11-07] MEDS: DIGOXIN 125 MCG TABLET GT SCH (09:50)
[2022-11-07] MEDS: GLUCERNA 1.2 1000ML LIQUID GT PRN (18:06)
[2022-11-07 19:52] VITALS: TEMP 98
[2022-11-07] MEDS: ASCORBIC ACID 500 MG TABLET GT SCH (20:28)
[2022-11-07] MEDS: ACIDOPHILUS/BULGARICUS CHEW TAB GT SCH (20:28)
[2022-11-07] MEDS: NORMAL SALINE NASAL 45 ML BOTTLE NS SCH (20:28)
[2022-11-08] MEDS: POLYVINYL ALCOHOL OPHT DROPS 15 ML BOTTLE EACHEYE SCH ×3 (06:38→22:17)
[2022-11-08] MEDS: FAMOTIDINE 20 MG TABLET GT SCH ×2 (06:38→18:32)
[2022-11-08] MEDS: PROTEIN SUPPLEMENT (PROSTAT) 30 ML LIQUID GT SCH ×3 (06:38→22:17)
[2022-11-08] MEDS: ARGININE/GLUTAMINE/CALCIUM BMB 1 EACH POWD.PACK GT SCH ×2 (06:38→18:32)
[2022-11-08 07:20] VITALS: TEMP 98.6
[2022-11-08] MEDS: HYDROGEN PEROXIDE 3% 118 ML BOTTLE TP SCH ×2 (07:28→20:39)
[2022-11-08 08:10] VITALS: O2SAT 99
[2022-11-08] MEDS: CLOTRIMAZOLE 1% CREAM 30 GM TUBE TP SCH ×2 (08:47→20:18)
[2022-11-08] MEDS: REMEDY ESSENTIAL ZINC PASTE 113 GM TP SCH ×2 (08:47→20:18)
[2022-11-08] MEDS: COD LIVER OIL/ZINC OXIDE OINT 113 GM TUBE TP SCH ×2 (08:47→20:18)
[2022-11-08] MEDS: SERTRALINE HCL 25 MG TABLET GT SCH (08:47)
[2022-11-08] MEDS: levETIRAcetam 500 MG/5 ML LIQUID UDC GT SCH ×2 (08:47→20:17)
[2022-11-08] MEDS: POTASSIUM CHLORIDE 40 MEQ/30 ML LIQUID UDC GT SCH (08:47)
[2022-11-08] MEDS: ACETAMINOPHEN 650 MG/20.3 ML LIQUID UDC GT SCH ×2 (08:47→20:17)
[2022-11-08] MEDS: MEDIHONEY= THERAHONEY 1.5 OZ TUBE TOP SCH ×2 (08:47→20:18)
[2022-11-08] MEDS: DIGOXIN 125 MCG TABLET GT SCH (08:47)
[2022-11-08] MEDS: FUROSEMIDE 20 MG TABLET GT SCH (08:47)
[2022-11-08 20:00] VITALS: TEMP 97.9
[2022-11-08] MEDS: ASCORBIC ACID 500 MG TABLET GT SCH (20:17)
[2022-11-08] MEDS: ACIDOPHILUS/BULGARICUS CHEW TAB GT SCH (20:17)
[2022-11-08] MEDS: NORMAL SALINE NASAL 45 ML BOTTLE NS SCH (20:18)
[2022-11-09] MEDS: ARGININE/GLUTAMINE/CALCIUM BMB 1 EACH POWD.PACK GT SCH ×2 (05:00→17:20)
[2022-11-09] MEDS: FAMOTIDINE 20 MG TABLET GT SCH ×2 (05:00→17:20)
[2022-11-09] MEDS: PROTEIN SUPPLEMENT (PROSTAT) 30 ML LIQUID GT SCH ×3 (05:00→21:47)
[2022-11-09] MEDS: POLYVINYL ALCOHOL OPHT DROPS 15 ML BOTTLE EACHEYE SCH ×3 (05:00→21:47)
[2022-11-09 07:21] VITALS: TEMP 98.8
[2022-11-09] MEDS: ACETAMINOPHEN 650 MG/20.3 ML LIQUID UDC GT SCH ×2 (08:23→20:35)
[2022-11-09] MEDS: levETIRAcetam 500 MG/5 ML LIQUID UDC GT SCH ×2 (08:26→20:35)
[2022-11-09] MEDS: FUROSEMIDE 20 MG TABLET GT SCH (08:48)
[2022-11-09] MEDS: DIGOXIN 125 MCG TABLET GT SCH (08:48)
[2022-11-09] MEDS: CLOTRIMAZOLE 1% CREAM 30 GM TUBE TP SCH ×2 (08:49→20:35)
[2022-11-09] MEDS: REMEDY ESSENTIAL ZINC PASTE 113 GM TP SCH ×2 (08:49→20:36)
[2022-11-09] MEDS: POTASSIUM CHLORIDE 40 MEQ/30 ML LIQUID UDC GT SCH (08:49)
[2022-11-09] MEDS: MEDIHONEY= THERAHONEY 1.5 OZ TUBE TOP SCH ×2 (08:49→20:35)
[2022-11-09] MEDS: COD LIVER OIL/ZINC OXIDE OINT 113 GM TUBE TP SCH ×2 (08:49→20:35)
[2022-11-09] MEDS: SERTRALINE HCL 25 MG TABLET GT SCH (08:49)
[2022-11-09] MEDS: HYDROGEN PEROXIDE 3% 118 ML BOTTLE TP SCH ×2 (10:30→19:06)
[2022-11-09 20:00] VITALS: TEMP 98
[2022-11-09] MEDS: ACIDOPHILUS/BULGARICUS CHEW TAB GT SCH (20:35)
[2022-11-09] MEDS: ASCORBIC ACID 500 MG TABLET GT SCH (20:35)
[2022-11-09] MEDS: NORMAL SALINE NASAL 45 ML BOTTLE NS SCH (20:35)
[2022-11-10] MEDS: PROTEIN SUPPLEMENT (PROSTAT) 30 ML LIQUID GT SCH ×3 (05:01→22:25)
[2022-11-10] MEDS: POLYVINYL ALCOHOL OPHT DROPS 15 ML BOTTLE EACHEYE SCH ×3 (05:01→22:25)
[2022-11-10] MEDS: FAMOTIDINE 20 MG TABLET GT SCH ×2 (05:01→18:48)
[2022-11-10] MEDS: ARGININE/GLUTAMINE/CALCIUM BMB 1 EACH POWD.PACK GT SCH ×2 (05:01→18:47)
[2022-11-10] MEDS: GLUCERNA 1.2 1000ML LIQUID GT PRN (05:02)
[2022-11-10 07:15] VITALS: TEMP 98.5
[2022-11-10] MEDS: ACETAMINOPHEN 650 MG/20.3 ML LIQUID UDC GT SCH ×2 (08:30→20:17)
[2022-11-10] MEDS: HYDROGEN PEROXIDE 3% 118 ML BOTTLE TP SCH ×2 (09:00→19:16)
[2022-11-10] MEDS: FUROSEMIDE 20 MG TABLET GT SCH (09:44)
[2022-11-10] MEDS: POTASSIUM CHLORIDE 40 MEQ/30 ML LIQUID UDC GT SCH (09:44)
[2022-11-10] MEDS: SERTRALINE HCL 25 MG TABLET GT SCH (09:44)
[2022-11-10] MEDS: DIGOXIN 125 MCG TABLET GT SCH (09:44)
[2022-11-10] MEDS: levETIRAcetam 500 MG/5 ML LIQUID UDC GT SCH ×2 (09:44→20:17)
[2022-11-10] MEDS: MEDIHONEY= THERAHONEY 1.5 OZ TUBE TOP SCH ×2 (09:45→20:18)
[2022-11-10] MEDS: COD LIVER OIL/ZINC OXIDE OINT 113 GM TUBE TP SCH ×2 (09:45→20:18)
[2022-11-10] MEDS: REMEDY ESSENTIAL ZINC PASTE 113 GM TP SCH ×2 (09:45→20:18)
[2022-11-10] MEDS: CLOTRIMAZOLE 1% CREAM 30 GM TUBE TP SCH ×2 (09:45→20:18)
[2022-11-10 19:55] VITALS: TEMP 98
[2022-11-10] MEDS: ACIDOPHILUS/BULGARICUS CHEW TAB GT SCH (20:17)
[2022-11-10] MEDS: NORMAL SALINE NASAL 45 ML BOTTLE NS SCH (20:18)
[2022-11-10] MEDS: ASCORBIC ACID 500 MG TABLET GT SCH (20:18)
[2022-11-11] MEDS: PROTEIN SUPPLEMENT (PROSTAT) 30 ML LIQUID GT SCH ×3 (05:07→22:00)
[2022-11-11] MEDS: POLYVINYL ALCOHOL OPHT DROPS 15 ML BOTTLE EACHEYE SCH ×3 (05:07→22:00)
[2022-11-11] MEDS: ARGININE/GLUTAMINE/CALCIUM BMB 1 EACH POWD.PACK GT SCH ×2 (05:07→17:23)
[2022-11-11] MEDS: FAMOTIDINE 20 MG TABLET GT SCH ×2 (05:07→17:23)
[2022-11-11 07:40] VITALS: TEMP 98.1
[2022-11-11] MEDS: HYDROGEN PEROXIDE 3% 118 ML BOTTLE TP SCH ×2 (07:41→21:05)
[2022-11-11] MEDS: ACETAMINOPHEN 650 MG/20.3 ML LIQUID UDC GT SCH ×2 (08:49→20:39)
[2022-11-11] MEDS: FUROSEMIDE 20 MG TABLET GT SCH (08:49)
[2022-11-11] MEDS: levETIRAcetam 500 MG/5 ML LIQUID UDC GT SCH ×2 (08:49→20:40)
[2022-11-11] MEDS: POTASSIUM CHLORIDE 40 MEQ/30 ML LIQUID UDC GT SCH (08:50)
[2022-11-11] MEDS: DIGOXIN 125 MCG TABLET GT SCH (08:50)
[2022-11-11] MEDS: COD LIVER OIL/ZINC OXIDE OINT 113 GM TUBE TP SCH ×2 (08:51→20:41)
[2022-11-11] MEDS: MEDIHONEY= THERAHONEY 1.5 OZ TUBE TOP SCH ×2 (08:51→20:41)
[2022-11-11] MEDS: SERTRALINE HCL 25 MG TABLET GT SCH (08:51)
[2022-11-11] MEDS: CLOTRIMAZOLE 1% CREAM 30 GM TUBE TP SCH ×2 (08:51→20:41)
[2022-11-11] MEDS: REMEDY ESSENTIAL ZINC PASTE 113 GM TP SCH ×2 (08:52→20:41)
[2022-11-11 20:00] VITALS: TEMP 98.8
[2022-11-11] MEDS: ACIDOPHILUS/BULGARICUS CHEW TAB GT SCH (20:40)
[2022-11-11] MEDS: ASCORBIC ACID 500 MG TABLET GT SCH (20:41)
[2022-11-11] MEDS: NORMAL SALINE NASAL 45 ML BOTTLE NS SCH (20:41)
[2022-11-12] MEDS: FAMOTIDINE 20 MG TABLET GT SCH ×2 (05:25→17:19)
[2022-11-12] MEDS: ARGININE/GLUTAMINE/CALCIUM BMB 1 EACH POWD.PACK GT SCH ×2 (05:25→17:18)
[2022-11-12] MEDS: PROTEIN SUPPLEMENT (PROSTAT) 30 ML LIQUID GT SCH ×3 (05:25→22:17)
[2022-11-12] MEDS: POLYVINYL ALCOHOL OPHT DROPS 15 ML BOTTLE EACHEYE SCH ×3 (05:25→22:17)
[2022-11-12 07:34] VITALS: TEMP 98
[2022-11-12] MEDS: ACETAMINOPHEN 650 MG/20.3 ML LIQUID UDC GT SCH ×2 (08:15→20:30)
[2022-11-12] MEDS: levETIRAcetam 500 MG/5 ML LIQUID UDC GT SCH ×2 (08:16→21:00)
[2022-11-12] MEDS: DIGOXIN 125 MCG TABLET GT SCH (08:17)
[2022-11-12] MEDS: POTASSIUM CHLORIDE 40 MEQ/30 ML LIQUID UDC GT SCH (08:18)
[2022-11-12] MEDS: SERTRALINE HCL 25 MG TABLET GT SCH (08:18)
[2022-11-12] MEDS: FUROSEMIDE 20 MG TABLET GT SCH (08:18)
[2022-11-12] MEDS: COD LIVER OIL/ZINC OXIDE OINT 113 GM TUBE TP SCH ×2 (08:19→21:00)
[2022-11-12] MEDS: CLOTRIMAZOLE 1% CREAM 30 GM TUBE TP SCH ×2 (08:19→21:00)
[2022-11-12] MEDS: MEDIHONEY= THERAHONEY 1.5 OZ TUBE TOP SCH ×2 (08:19→21:00)
[2022-11-12] MEDS: REMEDY ESSENTIAL ZINC PASTE 113 GM TP SCH ×2 (08:19→21:00)
[2022-11-12] MEDS: HYDROGEN PEROXIDE 3% 118 ML BOTTLE TP SCH ×2 (08:46→20:50)
[2022-11-12 20:00] VITALS: TEMP 98.6
[2022-11-12] MEDS: ASCORBIC ACID 500 MG TABLET GT SCH (21:00)
[2022-11-12] MEDS: NORMAL SALINE NASAL 45 ML BOTTLE NS SCH (21:00)
[2022-11-12] MEDS: ACIDOPHILUS/BULGARICUS CHEW TAB GT SCH (21:00)
[2022-11-12] MEDS: GLUCERNA 1.2 1000ML LIQUID GT PRN (23:00)
[2022-11-13] MEDS: POLYVINYL ALCOHOL OPHT DROPS 15 ML BOTTLE EACHEYE SCH ×3 (05:36→22:09)
[2022-11-13] MEDS: FAMOTIDINE 20 MG TABLET GT SCH ×2 (05:36→17:20)
[2022-11-13] MEDS: PROTEIN SUPPLEMENT (PROSTAT) 30 ML LIQUID GT SCH ×3 (05:36→22:09)
[2022-11-13] MEDS: ARGININE/GLUTAMINE/CALCIUM BMB 1 EACH POWD.PACK GT SCH ×2 (05:36→17:20)
[2022-11-13 08:03] VITALS: TEMP 98.8
[2022-11-13] MEDS: ACETAMINOPHEN 650 MG/20.3 ML LIQUID UDC GT SCH ×2 (08:09→20:10)
[2022-11-13] MEDS: levETIRAcetam 500 MG/5 ML LIQUID UDC GT SCH ×2 (08:10→20:10)
[2022-11-13] MEDS: DIGOXIN 125 MCG TABLET GT SCH (08:12)
[2022-11-13] MEDS: FUROSEMIDE 20 MG TABLET GT SCH (08:13)
[2022-11-13] MEDS: SERTRALINE HCL 25 MG TABLET GT SCH (08:13)
[2022-11-13] MEDS: MEDIHONEY= THERAHONEY 1.5 OZ TUBE TOP SCH ×2 (08:15→20:21)
[2022-11-13] MEDS: POTASSIUM CHLORIDE 40 MEQ/30 ML LIQUID UDC GT SCH (08:15)
[2022-11-13] MEDS: COD LIVER OIL/ZINC OXIDE OINT 113 GM TUBE TP SCH ×2 (08:15→20:21)
[2022-11-13] MEDS: REMEDY ESSENTIAL ZINC PASTE 113 GM TP SCH ×2 (08:16→20:21)
[2022-11-13] MEDS: CLOTRIMAZOLE 1% CREAM 30 GM TUBE TP SCH ×2 (08:16→20:21)
[2022-11-13] MEDS: HYDROGEN PEROXIDE 3% 118 ML BOTTLE TP SCH ×2 (08:53→19:16)
[2022-11-13] MEDS: ACIDOPHILUS/BULGARICUS CHEW TAB GT SCH (20:10)
[2022-11-13] MEDS: ASCORBIC ACID 500 MG TABLET GT SCH (20:20)
[2022-11-13] MEDS: NORMAL SALINE NASAL 45 ML BOTTLE NS SCH (20:21)
[2022-11-14] MEDS: ACETAMINOPHEN 650 MG/20 ML UDC- SA PATIENTS-PAIN ONLY GT PRN ×2 (05:00→19:24)
[2022-11-14] MEDS: POLYVINYL ALCOHOL OPHT DROPS 15 ML BOTTLE EACHEYE SCH ×3 (05:32→22:00)
[2022-11-14] MEDS: FAMOTIDINE 20 MG TABLET GT SCH ×2 (05:33→17:30)
[2022-11-14] MEDS: PROTEIN SUPPLEMENT (PROSTAT) 30 ML LIQUID GT SCH ×3 (05:33→22:00)
[2022-11-14] MEDS: ARGININE/GLUTAMINE/CALCIUM BMB 1 EACH POWD.PACK GT SCH ×2 (05:33→17:30)
[2022-11-14 07:26] VITALS: TEMP 98.6
[2022-11-14 07:27] LABS: BASOPHILS % (AUTO) 0.5 % (0.0-2.0); EOSINOPHILS # (AUTO) 0.2 K/uL (0.0-0.7); EOSINOPHILS % (AUTO) 4.5 % (0.0-7.0); HEMATOCRIT 36.9 % (31.2-41.9); HEMOGLOBIN 12.3 g/dL (10.9-14.3); LYMPHOCYTES # (AUTO) 1.4 K/uL (0.8-4.8); LYMPHOCYTES % (AUTO) 26.6 % (20.5-51.5); MEAN CORPUSCULAR HEMOGLOBIN 30.2 uug (24.7-32.8); MEAN CORPUSCULAR HGB CONC 33 g/dL (32.3-35.6); MEAN CORPUSCULAR VOLUME 90.4 fL (75.5-95.3); MONOCYTES # (AUTO) 0.5 K/uL (0.1-1.30); MONOCYTES % (AUTO) 10.2 % (0.0-11.0); NEUTROPHILS % (AUTO) 58.2 % (38.5-71.5); PLATELET COUNT (AUTO) 123 K/uL (179-408); RED BLOOD CELL COUNT(AUTO) 4.08 MIL/uL (3.63-4.92); RED CELL DISTRIBUTION WIDTH 15.9 % (12.3-17.7); WHITE BLOOD COUNT (AUTO) 5.2 K/uL (3.8-11.8)
[2022-11-14 07:37] LABS: DIFFERENTIAL COMMENT 1
[2022-11-14 07:58] LABS: CALCIUM 8.9 mg/dL (8.5-10.1); CARBON DIOXIDE 28 mmol/L (21-32); CHLORIDE 108 mmol/L (98-107); CREATININE 0.8 mg/dL (0.6-1.3); GLUCOSE 123 mg/dL (74-106); MAGNESIUM 2.4 mg/dL (1.8-2.4); PHOSPHOROUS 3.6 mg/dL (2.5-4.9); POTASSIUM 4.1 mmol/L (3.5-5.1); SODIUM SERUM 143 mmol/L (136-145); UREA NITROGEN, BLOOD 42 mg/dL (7-18)
[2022-11-14] MEDS: levETIRAcetam 500 MG/5 ML LIQUID UDC GT SCH ×2 (08:05→20:29)
[2022-11-14] MEDS: DIGOXIN 125 MCG TABLET GT SCH (08:12)
[2022-11-14] MEDS: FUROSEMIDE 20 MG TABLET GT SCH (08:12)
[2022-11-14] MEDS: POTASSIUM CHLORIDE 40 MEQ/30 ML LIQUID UDC GT SCH (08:14)
[2022-11-14] MEDS: MEDIHONEY= THERAHONEY 1.5 OZ TUBE TOP SCH ×2 (08:15→20:29)
[2022-11-14] MEDS: SERTRALINE HCL 25 MG TABLET GT SCH (08:15)
[2022-11-14] MEDS: COD LIVER OIL/ZINC OXIDE OINT 113 GM TUBE TP SCH ×2 (08:16→20:29)
[2022-11-14] MEDS: REMEDY ESSENTIAL ZINC PASTE 113 GM TP SCH ×2 (08:17→20:29)
[2022-11-14] MEDS: CLOTRIMAZOLE 1% CREAM 30 GM TUBE TP SCH ×2 (08:17→20:29)
[2022-11-14] MEDS: ACETAMINOPHEN 650 MG/20.3 ML LIQUID UDC GT SCH ×3 (08:30→20:18)
[2022-11-14] MEDS: GLUCERNA 1.2 1000ML LIQUID GT PRN (16:12)
[2022-11-14 20:06] VITALS: TEMP 97.6
[2022-11-14] MEDS: ACIDOPHILUS/BULGARICUS CHEW TAB GT SCH (20:28)
[2022-11-14] MEDS: NORMAL SALINE NASAL 45 ML BOTTLE NS SCH (20:29)
[2022-11-14] MEDS: ASCORBIC ACID 500 MG TABLET GT SCH (20:29)
[2022-11-14] MEDS: HYDROGEN PEROXIDE 3% 118 ML BOTTLE TP SCH (21:28)
[2022-11-15] MEDS: POLYVINYL ALCOHOL OPHT DROPS 15 ML BOTTLE EACHEYE SCH ×3 (06:02→22:37)
[2022-11-15] MEDS: PROTEIN SUPPLEMENT (PROSTAT) 30 ML LIQUID GT SCH ×3 (06:02→22:37)
[2022-11-15] MEDS: ARGININE/GLUTAMINE/CALCIUM BMB 1 EACH POWD.PACK GT SCH ×2 (06:02→17:09)
[2022-11-15] MEDS: FAMOTIDINE 20 MG TABLET GT SCH ×2 (06:02→17:09)
[2022-11-15 07:24] VITALS: TEMP 98.7
[2022-11-15] MEDS: ACETAMINOPHEN 650 MG/20.3 ML LIQUID UDC GT SCH ×2 (08:12→20:07)
[2022-11-15] MEDS: levETIRAcetam 500 MG/5 ML LIQUID UDC GT SCH ×2 (08:14→20:07)
[2022-11-15] MEDS: DIGOXIN 125 MCG TABLET GT SCH (08:18)
[2022-11-15] MEDS: FUROSEMIDE 20 MG TABLET GT SCH (08:18)
[2022-11-15] MEDS: POTASSIUM CHLORIDE 40 MEQ/30 ML LIQUID UDC GT SCH (08:19)
[2022-11-15] MEDS: SERTRALINE HCL 25 MG TABLET GT SCH (08:19)
[2022-11-15] MEDS: MEDIHONEY= THERAHONEY 1.5 OZ TUBE TOP SCH ×2 (08:20→20:08)
[2022-11-15] MEDS: COD LIVER OIL/ZINC OXIDE OINT 113 GM TUBE TP SCH ×2 (08:20→20:08)
[2022-11-15] MEDS: CLOTRIMAZOLE 1% CREAM 30 GM TUBE TP SCH ×2 (08:22→20:08)
[2022-11-15] MEDS: REMEDY ESSENTIAL ZINC PASTE 113 GM TP SCH ×2 (08:23→20:08)
[2022-11-15] MEDS: HYDROGEN PEROXIDE 3% 118 ML BOTTLE TP SCH ×2 (09:00→19:00)
[2022-11-15 20:00] VITALS: TEMP 97.8
[2022-11-15] MEDS: ACIDOPHILUS/BULGARICUS CHEW TAB GT SCH (20:07)
[2022-11-15] MEDS: ASCORBIC ACID 500 MG TABLET GT SCH (20:08)
[2022-11-15] MEDS: NORMAL SALINE NASAL 45 ML BOTTLE NS SCH (20:08)
[2022-11-16] MEDS: PROTEIN SUPPLEMENT (PROSTAT) 30 ML LIQUID GT SCH ×3 (05:00→22:00)
[2022-11-16] MEDS: GLUCERNA 1.2 1000ML LIQUID GT PRN (05:00)
[2022-11-16] MEDS: POLYVINYL ALCOHOL OPHT DROPS 15 ML BOTTLE EACHEYE SCH ×3 (05:00→22:00)
[2022-11-16] MEDS: ARGININE/GLUTAMINE/CALCIUM BMB 1 EACH POWD.PACK GT SCH ×2 (05:00→17:28)
[2022-11-16] MEDS: FAMOTIDINE 20 MG TABLET GT SCH ×2 (05:00→17:28)
[2022-11-16 07:19] VITALS: TEMP 98.3
[2022-11-16] MEDS: HYDROGEN PEROXIDE 3% 118 ML BOTTLE TP SCH ×2 (08:46→20:32)
[2022-11-16] MEDS: ACETAMINOPHEN 650 MG/20.3 ML LIQUID UDC GT SCH ×2 (09:06→20:47)
[2022-11-16] MEDS: SERTRALINE HCL 25 MG TABLET GT SCH (09:06)
[2022-11-16] MEDS: levETIRAcetam 500 MG/5 ML LIQUID UDC GT SCH ×2 (09:06→20:47)
[2022-11-16] MEDS: FUROSEMIDE 20 MG TABLET GT SCH (09:06)
[2022-11-16] MEDS: POTASSIUM CHLORIDE 40 MEQ/30 ML LIQUID UDC GT SCH (09:06)
[2022-11-16] MEDS: DIGOXIN 125 MCG TABLET GT SCH (09:06)
[2022-11-16] MEDS: CLOTRIMAZOLE 1% CREAM 30 GM TUBE TP SCH ×2 (09:07→20:48)
[2022-11-16] MEDS: MEDIHONEY= THERAHONEY 1.5 OZ TUBE TOP SCH ×2 (09:07→20:48)
[2022-11-16] MEDS: REMEDY ESSENTIAL ZINC PASTE 113 GM TP SCH ×2 (09:07→20:48)
[2022-11-16] MEDS: COD LIVER OIL/ZINC OXIDE OINT 113 GM TUBE TP SCH ×2 (09:07→20:48)
[2022-11-16 20:00] VITALS: TEMP 98.5
[2022-11-16] MEDS: ACIDOPHILUS/BULGARICUS CHEW TAB GT SCH (20:47)
[2022-11-16] MEDS: ASCORBIC ACID 500 MG TABLET GT SCH (20:47)
[2022-11-16] MEDS: NORMAL SALINE NASAL 45 ML BOTTLE NS SCH (20:47)
[2022-11-17] MEDS: POLYVINYL ALCOHOL OPHT DROPS 15 ML BOTTLE EACHEYE SCH ×3 (05:12→22:04)
[2022-11-17] MEDS: GLUCERNA 1.2 1000ML LIQUID GT PRN (05:12)
[2022-11-17] MEDS: ARGININE/GLUTAMINE/CALCIUM BMB 1 EACH POWD.PACK GT SCH ×2 (05:12→17:05)
[2022-11-17] MEDS: FAMOTIDINE 20 MG TABLET GT SCH ×2 (05:12→17:05)
[2022-11-17] MEDS: PROTEIN SUPPLEMENT (PROSTAT) 30 ML LIQUID GT SCH ×3 (05:12→22:04)
[2022-11-17 07:42] VITALS: TEMP 97.4
[2022-11-17] MEDS: levETIRAcetam 500 MG/5 ML LIQUID UDC GT SCH ×2 (08:05→20:30)
[2022-11-17] MEDS: ACETAMINOPHEN 650 MG/20.3 ML LIQUID UDC GT SCH ×2 (08:05→20:30)
[2022-11-17] MEDS: DIGOXIN 125 MCG TABLET GT SCH (08:06)
[2022-11-17] MEDS: FUROSEMIDE 20 MG TABLET GT SCH (08:07)
[2022-11-17] MEDS: MEDIHONEY= THERAHONEY 1.5 OZ TUBE TOP SCH ×2 (08:08→20:34)
[2022-11-17] MEDS: COD LIVER OIL/ZINC OXIDE OINT 113 GM TUBE TP SCH ×2 (08:08→20:34)
[2022-11-17] MEDS: REMEDY ESSENTIAL ZINC PASTE 113 GM TP SCH ×2 (08:08→20:34)
[2022-11-17] MEDS: POTASSIUM CHLORIDE 40 MEQ/30 ML LIQUID UDC GT SCH (08:08)
[2022-11-17] MEDS: CLOTRIMAZOLE 1% CREAM 30 GM TUBE TP SCH ×2 (08:08→20:34)
[2022-11-17] MEDS: SERTRALINE HCL 25 MG TABLET GT SCH (08:08)
[2022-11-17] MEDS: HYDROGEN PEROXIDE 3% 118 ML BOTTLE TP SCH ×2 (09:00→20:45)
[2022-11-17] MEDS: ACIDOPHILUS/BULGARICUS CHEW TAB GT SCH (20:30)
[2022-11-17] MEDS: ASCORBIC ACID 500 MG TABLET GT SCH (20:30)
[2022-11-17] MEDS: NORMAL SALINE NASAL 45 ML BOTTLE NS SCH (20:30)
[2022-11-17 21:28] VITALS: TEMP 97.9
[2022-11-18] MEDS: FAMOTIDINE 20 MG TABLET GT SCH ×2 (06:06→18:00)
[2022-11-18] MEDS: POLYVINYL ALCOHOL OPHT DROPS 15 ML BOTTLE EACHEYE SCH ×3 (06:06→21:56)
[2022-11-18] MEDS: ARGININE/GLUTAMINE/CALCIUM BMB 1 EACH POWD.PACK GT SCH ×2 (06:06→18:00)
[2022-11-18] MEDS: PROTEIN SUPPLEMENT (PROSTAT) 30 ML LIQUID GT SCH ×3 (06:07→21:56)
[2022-11-18] MEDS: GLUCERNA 1.2 1000ML LIQUID GT PRN (06:07)
[2022-11-18] MEDS: HYDROGEN PEROXIDE 3% 118 ML BOTTLE TP SCH ×2 (07:23→19:15)
[2022-11-18 07:45] VITALS: TEMP 97.2
[2022-11-18] MEDS: ACETAMINOPHEN 650 MG/20.3 ML LIQUID UDC GT SCH ×2 (08:30→20:30)
[2022-11-18] MEDS: levETIRAcetam 500 MG/5 ML LIQUID UDC GT SCH ×2 (09:38→20:45)
[2022-11-18] MEDS: CLOTRIMAZOLE 1% CREAM 30 GM TUBE TP SCH ×2 (09:39→20:49)
[2022-11-18] MEDS: POTASSIUM CHLORIDE 40 MEQ/30 ML LIQUID UDC GT SCH (09:39)
[2022-11-18] MEDS: SERTRALINE HCL 25 MG TABLET GT SCH (09:39)
[2022-11-18] MEDS: FUROSEMIDE 20 MG TABLET GT SCH (09:39)
[2022-11-18] MEDS: MEDIHONEY= THERAHONEY 1.5 OZ TUBE TOP SCH ×2 (09:39→20:49)
[2022-11-18] MEDS: COD LIVER OIL/ZINC OXIDE OINT 113 GM TUBE TP SCH ×2 (09:39→20:49)
[2022-11-18] MEDS: DIGOXIN 125 MCG TABLET GT SCH (09:39)
[2022-11-18] MEDS: REMEDY ESSENTIAL ZINC PASTE 113 GM TP SCH ×2 (09:40→20:49)
[2022-11-18 19:57] VITALS: TEMP 98.1
[2022-11-18] MEDS: ACIDOPHILUS/BULGARICUS CHEW TAB GT SCH (20:43)
[2022-11-18] MEDS: NORMAL SALINE NASAL 45 ML BOTTLE NS SCH (20:45)
[2022-11-18] MEDS: ASCORBIC ACID 500 MG TABLET GT SCH (20:45)
[2022-11-19] MEDS: PROTEIN SUPPLEMENT (PROSTAT) 30 ML LIQUID GT SCH ×3 (05:12→21:59)
[2022-11-19] MEDS: FAMOTIDINE 20 MG TABLET GT SCH ×2 (05:12→17:41)
[2022-11-19] MEDS: POLYVINYL ALCOHOL OPHT DROPS 15 ML BOTTLE EACHEYE SCH ×3 (05:12→21:59)
[2022-11-19] MEDS: ARGININE/GLUTAMINE/CALCIUM BMB 1 EACH POWD.PACK GT SCH ×2 (05:12→17:41)
[2022-11-19] MEDS: HYDROGEN PEROXIDE 3% 118 ML BOTTLE TP SCH ×2 (07:08→21:00)
[2022-11-19 08:00] VITALS: TEMP 98
[2022-11-19] MEDS: levETIRAcetam 500 MG/5 ML LIQUID UDC GT SCH ×2 (09:09→20:09)
[2022-11-19] MEDS: SERTRALINE HCL 25 MG TABLET GT SCH (09:09)
[2022-11-19] MEDS: POTASSIUM CHLORIDE 40 MEQ/30 ML LIQUID UDC GT SCH (09:09)
[2022-11-19] MEDS: FUROSEMIDE 20 MG TABLET GT SCH (09:09)
[2022-11-19] MEDS: DIGOXIN 125 MCG TABLET GT SCH (09:09)
[2022-11-19] MEDS: COD LIVER OIL/ZINC OXIDE OINT 113 GM TUBE TP SCH ×2 (09:09→20:09)
[2022-11-19] MEDS: MEDIHONEY= THERAHONEY 1.5 OZ TUBE TOP SCH ×2 (09:09→20:09)
[2022-11-19] MEDS: ACETAMINOPHEN 650 MG/20.3 ML LIQUID UDC GT SCH ×2 (09:09→20:08)
[2022-11-19] MEDS: CLOTRIMAZOLE 1% CREAM 30 GM TUBE TP SCH ×2 (09:10→20:09)
[2022-11-19] MEDS: REMEDY ESSENTIAL ZINC PASTE 113 GM TP SCH ×2 (09:10→20:09)
[2022-11-19 20:00] VITALS: TEMP 98.1
[2022-11-19] MEDS: ACIDOPHILUS/BULGARICUS CHEW TAB GT SCH (20:08)
[2022-11-19] MEDS: NORMAL SALINE NASAL 45 ML BOTTLE NS SCH (20:09)
[2022-11-19] MEDS: ASCORBIC ACID 500 MG TABLET GT SCH (20:09)
[2022-11-20] MEDS: POLYVINYL ALCOHOL OPHT DROPS 15 ML BOTTLE EACHEYE SCH ×3 (05:00→22:38)
[2022-11-20] MEDS: ARGININE/GLUTAMINE/CALCIUM BMB 1 EACH POWD.PACK GT SCH ×2 (05:01→18:00)
[2022-11-20] MEDS: PROTEIN SUPPLEMENT (PROSTAT) 30 ML LIQUID GT SCH ×3 (05:01→22:38)
[2022-11-20] MEDS: FAMOTIDINE 20 MG TABLET GT SCH ×2 (05:01→18:00)
[2022-11-20] MEDS: HYDROGEN PEROXIDE 3% 118 ML BOTTLE TP SCH ×2 (07:41→19:23)
[2022-11-20 08:00] VITALS: BP 120/55; TEMP 98.1; O2SAT 100
[2022-11-20] MEDS: levETIRAcetam 500 MG/5 ML LIQUID UDC GT SCH ×2 (08:22→20:14)
[2022-11-20] MEDS: ACETAMINOPHEN 650 MG/20.3 ML LIQUID UDC GT SCH ×2 (08:22→20:14)
[2022-11-20] MEDS: DIGOXIN 125 MCG TABLET GT SCH (08:23)
[2022-11-20] MEDS: FUROSEMIDE 20 MG TABLET GT SCH (08:23)
[2022-11-20] MEDS: SERTRALINE HCL 25 MG TABLET GT SCH (08:23)
[2022-11-20] MEDS: POTASSIUM CHLORIDE 40 MEQ/30 ML LIQUID UDC GT SCH (08:23)
[2022-11-20] MEDS: MEDIHONEY= THERAHONEY 1.5 OZ TUBE TOP SCH ×2 (09:30→20:14)
[2022-11-20] MEDS: CLOTRIMAZOLE 1% CREAM 30 GM TUBE TP SCH ×2 (09:30→20:14)
[2022-11-20] MEDS: REMEDY ESSENTIAL ZINC PASTE 113 GM TP SCH ×2 (09:30→20:14)
[2022-11-20] MEDS: COD LIVER OIL/ZINC OXIDE OINT 113 GM TUBE TP SCH ×2 (09:30→20:14)
[2022-11-20 20:00] VITALS: TEMP 98.1
[2022-11-20] MEDS: ASCORBIC ACID 500 MG TABLET GT SCH (20:14)
[2022-11-20] MEDS: NORMAL SALINE NASAL 45 ML BOTTLE NS SCH (20:14)
[2022-11-20] MEDS: ACIDOPHILUS/BULGARICUS CHEW TAB GT SCH (20:14)
[2022-11-21] MEDS: GLUCERNA 1.2 1000ML LIQUID GT PRN (02:08)
[2022-11-21] MEDS: POLYVINYL ALCOHOL OPHT DROPS 15 ML BOTTLE EACHEYE SCH ×3 (06:28→22:01)
[2022-11-21] MEDS: PROTEIN SUPPLEMENT (PROSTAT) 30 ML LIQUID GT SCH ×3 (06:29→22:01)
[2022-11-21] MEDS: FAMOTIDINE 20 MG TABLET GT SCH ×2 (06:29→18:21)
[2022-11-21] MEDS: ARGININE/GLUTAMINE/CALCIUM BMB 1 EACH POWD.PACK GT SCH ×2 (06:29→18:20)
[2022-11-21 07:28] VITALS: TEMP 97
[2022-11-21] MEDS: HYDROGEN PEROXIDE 3% 118 ML BOTTLE TP SCH ×2 (08:03→19:07)
[2022-11-21] MEDS: FUROSEMIDE 20 MG TABLET GT SCH (08:55)
[2022-11-21] MEDS: levETIRAcetam 500 MG/5 ML LIQUID UDC GT SCH ×2 (08:55→20:01)
[2022-11-21] MEDS: DIGOXIN 125 MCG TABLET GT SCH (08:55)
[2022-11-21] MEDS: ACETAMINOPHEN 650 MG/20.3 ML LIQUID UDC GT SCH ×2 (08:55→20:01)
[2022-11-21] MEDS: SERTRALINE HCL 25 MG TABLET GT SCH (08:56)
[2022-11-21] MEDS: POTASSIUM CHLORIDE 40 MEQ/30 ML LIQUID UDC GT SCH (08:56)
[2022-11-21] MEDS: MEDIHONEY= THERAHONEY 1.5 OZ TUBE TOP SCH ×2 (10:00→20:01)
[2022-11-21] MEDS: CLOTRIMAZOLE 1% CREAM 30 GM TUBE TP SCH ×2 (10:00→20:02)
[2022-11-21] MEDS: REMEDY ESSENTIAL ZINC PASTE 113 GM TP SCH ×2 (10:00→20:02)
[2022-11-21] MEDS: COD LIVER OIL/ZINC OXIDE OINT 113 GM TUBE TP SCH ×2 (10:00→20:02)
[2022-11-21 19:48] VITALS: TEMP 99.1
[2022-11-21] MEDS: NORMAL SALINE NASAL 45 ML BOTTLE NS SCH (20:01)
[2022-11-21] MEDS: ACIDOPHILUS/BULGARICUS CHEW TAB GT SCH (20:01)
[2022-11-21] MEDS: ASCORBIC ACID 500 MG TABLET GT SCH (20:01)
[2022-11-22] MEDS: ARGININE/GLUTAMINE/CALCIUM BMB 1 EACH POWD.PACK GT SCH ×2 (05:31→18:10)
[2022-11-22] MEDS: PROTEIN SUPPLEMENT (PROSTAT) 30 ML LIQUID GT SCH ×3 (05:31→21:50)
[2022-11-22] MEDS: FAMOTIDINE 20 MG TABLET GT SCH ×2 (05:31→18:10)
[2022-11-22] MEDS: POLYVINYL ALCOHOL OPHT DROPS 15 ML BOTTLE EACHEYE SCH ×3 (05:31→21:50)
[2022-11-22] MEDS: HYDROGEN PEROXIDE 3% 118 ML BOTTLE TP SCH ×2 (07:17→19:35)
[2022-11-22 07:20] VITALS: TEMP 98.4
[2022-11-22] MEDS: ACETAMINOPHEN 650 MG/20.3 ML LIQUID UDC GT SCH ×2 (08:30→20:17)
[2022-11-22] MEDS: FUROSEMIDE 20 MG TABLET GT SCH (09:43)
[2022-11-22] MEDS: levETIRAcetam 500 MG/5 ML LIQUID UDC GT SCH ×2 (09:43→20:17)
[2022-11-22] MEDS: MEDIHONEY= THERAHONEY 1.5 OZ TUBE TOP SCH ×2 (09:43→20:22)
[2022-11-22] MEDS: POTASSIUM CHLORIDE 40 MEQ/30 ML LIQUID UDC GT SCH (09:43)
[2022-11-22] MEDS: DIGOXIN 125 MCG TABLET GT SCH (09:43)
[2022-11-22] MEDS: SERTRALINE HCL 25 MG TABLET GT SCH (09:43)
[2022-11-22] MEDS: REMEDY ESSENTIAL ZINC PASTE 113 GM TP SCH ×2 (09:44→20:22)
[2022-11-22] MEDS: CLOTRIMAZOLE 1% CREAM 30 GM TUBE TP SCH ×2 (09:44→20:22)
[2022-11-22] MEDS: COD LIVER OIL/ZINC OXIDE OINT 113 GM TUBE TP SCH ×2 (09:44→20:22)
[2022-11-22 19:45] VITALS: TEMP 98.8
[2022-11-22] MEDS: ACIDOPHILUS/BULGARICUS CHEW TAB GT SCH (20:17)
[2022-11-22] MEDS: ASCORBIC ACID 500 MG TABLET GT SCH (20:17)
[2022-11-22] MEDS: NORMAL SALINE NASAL 45 ML BOTTLE NS SCH (20:22)
[2022-11-23] MEDS: POLYVINYL ALCOHOL OPHT DROPS 15 ML BOTTLE EACHEYE SCH ×3 (05:00→22:33)
[2022-11-23] MEDS: FAMOTIDINE 20 MG TABLET GT SCH ×2 (05:00→17:04)
[2022-11-23] MEDS: PROTEIN SUPPLEMENT (PROSTAT) 30 ML LIQUID GT SCH ×3 (05:00→22:33)
[2022-11-23] MEDS: ARGININE/GLUTAMINE/CALCIUM BMB 1 EACH POWD.PACK GT SCH ×2 (05:00→17:04)
[2022-11-23] MEDS: GLUCERNA 1.2 1000ML LIQUID GT PRN (05:01)
[2022-11-23 08:00] VITALS: TEMP 98.4
[2022-11-23] MEDS: HYDROGEN PEROXIDE 3% 118 ML BOTTLE TP SCH ×2 (09:00→19:14)
[2022-11-23] MEDS: ACETAMINOPHEN 650 MG/20.3 ML LIQUID UDC GT SCH ×2 (09:11→20:13)
[2022-11-23] MEDS: POTASSIUM CHLORIDE 40 MEQ/30 ML LIQUID UDC GT SCH (09:12)
[2022-11-23] MEDS: FUROSEMIDE 20 MG TABLET GT SCH (09:12)
[2022-11-23] MEDS: DIGOXIN 125 MCG TABLET GT SCH (09:12)
[2022-11-23] MEDS: levETIRAcetam 500 MG/5 ML LIQUID UDC GT SCH ×2 (09:12→20:13)
[2022-11-23] MEDS: COD LIVER OIL/ZINC OXIDE OINT 113 GM TUBE TP SCH ×2 (09:13→20:14)
[2022-11-23] MEDS: SERTRALINE HCL 25 MG TABLET GT SCH (09:13)
[2022-11-23] MEDS: CLOTRIMAZOLE 1% CREAM 30 GM TUBE TP SCH ×2 (09:13→20:14)
[2022-11-23] MEDS: MEDIHONEY= THERAHONEY 1.5 OZ TUBE TOP SCH ×2 (09:13→20:13)
[2022-11-23] MEDS: REMEDY ESSENTIAL ZINC PASTE 113 GM TP SCH ×2 (09:13→20:14)
[2022-11-23] MEDS ORDERED: CLOTRIMAZOLE 1% CREAM 30 GM TUBE TP PRN (11:30)
[2022-11-23] MEDS ORDERED: MEDIHONEY= THERAHONEY 1.5 OZ TUBE TOP PRN (11:30)
[2022-11-23] MEDS ORDERED: COD LIVER OIL/ZINC OXIDE OINT 113 GM TUBE TP PRN (11:30)
[2022-11-23 20:01] VITALS: TEMP 98.4
[2022-11-23] MEDS: NORMAL SALINE NASAL 45 ML BOTTLE NS SCH (20:13)
[2022-11-23] MEDS: ACIDOPHILUS/BULGARICUS CHEW TAB GT SCH (20:13)
[2022-11-23] MEDS: ASCORBIC ACID 500 MG TABLET GT SCH (20:13)
[2022-11-24] MEDS: PROTEIN SUPPLEMENT (PROSTAT) 30 ML LIQUID GT SCH ×3 (05:00→22:00)
[2022-11-24] MEDS: ARGININE/GLUTAMINE/CALCIUM BMB 1 EACH POWD.PACK GT SCH ×2 (05:00→17:02)
[2022-11-24] MEDS: POLYVINYL ALCOHOL OPHT DROPS 15 ML BOTTLE EACHEYE SCH ×3 (05:00→22:00)
[2022-11-24] MEDS: FAMOTIDINE 20 MG TABLET GT SCH ×2 (05:00→17:02)
[2022-11-24 07:49] VITALS: TEMP 98.1
[2022-11-24] MEDS: ACETAMINOPHEN 650 MG/20.3 ML LIQUID UDC GT SCH ×2 (08:48→20:20)
[2022-11-24] MEDS: levETIRAcetam 500 MG/5 ML LIQUID UDC GT SCH ×2 (08:50→20:20)
[2022-11-24] MEDS: SERTRALINE HCL 25 MG TABLET GT SCH (08:50)
[2022-11-24] MEDS: POTASSIUM CHLORIDE 40 MEQ/30 ML LIQUID UDC GT SCH (08:50)
[2022-11-24] MEDS: DIGOXIN 125 MCG TABLET GT SCH (08:50)
[2022-11-24] MEDS: FUROSEMIDE 20 MG TABLET GT SCH (08:50)
[2022-11-24] MEDS: MEDIHONEY= THERAHONEY 1.5 OZ TUBE TOP SCH ×2 (08:51→20:21)
[2022-11-24] MEDS: COD LIVER OIL/ZINC OXIDE OINT 113 GM TUBE TP SCH ×2 (08:52→20:21)
[2022-11-24] MEDS: REMEDY ESSENTIAL ZINC PASTE 113 GM TP SCH ×2 (08:52→20:21)
[2022-11-24] MEDS: CLOTRIMAZOLE 1% CREAM 30 GM TUBE TP SCH ×2 (08:52→20:21)
[2022-11-24] MEDS: HYDROGEN PEROXIDE 3% 118 ML BOTTLE TP SCH ×2 (09:00→19:09)
[2022-11-24 11:50] VITALS: O2SAT 99
[2022-11-24] MEDS: GLUCERNA 1.2 1000ML LIQUID GT PRN (17:03)
[2022-11-24 20:00] VITALS: TEMP 98.1
[2022-11-24] MEDS: NORMAL SALINE NASAL 45 ML BOTTLE NS SCH (20:20)
[2022-11-24] MEDS: ASCORBIC ACID 500 MG TABLET GT SCH (20:20)
[2022-11-24] MEDS: ACIDOPHILUS/BULGARICUS CHEW TAB GT SCH (20:20)
[2022-11-25] MEDS: ARGININE/GLUTAMINE/CALCIUM BMB 1 EACH POWD.PACK GT SCH ×2 (05:12→17:27)
[2022-11-25] MEDS: PROTEIN SUPPLEMENT (PROSTAT) 30 ML LIQUID GT SCH ×3 (05:12→21:12)
[2022-11-25] MEDS: POLYVINYL ALCOHOL OPHT DROPS 15 ML BOTTLE EACHEYE SCH ×3 (05:12→21:12)
[2022-11-25] MEDS: FAMOTIDINE 20 MG TABLET GT SCH ×2 (05:12→17:28)
[2022-11-25 07:42] VITALS: TEMP 98.1
[2022-11-25] MEDS: ACETAMINOPHEN 650 MG/20.3 ML LIQUID UDC GT SCH ×2 (08:21→20:30)
[2022-11-25] MEDS: levETIRAcetam 500 MG/5 ML LIQUID UDC GT SCH ×2 (08:23→21:11)
[2022-11-25] MEDS: FUROSEMIDE 20 MG TABLET GT SCH (08:25)
[2022-11-25] MEDS: DIGOXIN 125 MCG TABLET GT SCH (08:25)
[2022-11-25] MEDS: POTASSIUM CHLORIDE 40 MEQ/30 ML LIQUID UDC GT SCH (08:26)
[2022-11-25] MEDS: MEDIHONEY= THERAHONEY 1.5 OZ TUBE TOP SCH ×2 (08:27→21:11)
[2022-11-25] MEDS: SERTRALINE HCL 25 MG TABLET GT SCH (08:27)
[2022-11-25] MEDS: CLOTRIMAZOLE 1% CREAM 30 GM TUBE TP SCH ×2 (08:28→21:11)
[2022-11-25] MEDS: COD LIVER OIL/ZINC OXIDE OINT 113 GM TUBE TP SCH ×2 (08:28→21:11)
[2022-11-25] MEDS: REMEDY ESSENTIAL ZINC PASTE 113 GM TP SCH ×2 (08:28→21:12)
[2022-11-25] MEDS: HYDROGEN PEROXIDE 3% 118 ML BOTTLE TP SCH ×2 (09:00→19:10)
[2022-11-25 20:00] VITALS: TEMP 98.1
[2022-11-25] MEDS: ACIDOPHILUS/BULGARICUS CHEW TAB GT SCH (21:11)
[2022-11-25] MEDS: NORMAL SALINE NASAL 45 ML BOTTLE NS SCH (21:11)
[2022-11-25] MEDS: ASCORBIC ACID 500 MG TABLET GT SCH (21:11)
[2022-11-26] MEDS: GLUCERNA 1.2 1000ML LIQUID GT PRN (01:30)
[2022-11-26] MEDS: ARGININE/GLUTAMINE/CALCIUM BMB 1 EACH POWD.PACK GT SCH ×2 (05:01→17:42)
[2022-11-26] MEDS: PROTEIN SUPPLEMENT (PROSTAT) 30 ML LIQUID GT SCH ×3 (05:01→22:00)
[2022-11-26] MEDS: POLYVINYL ALCOHOL OPHT DROPS 15 ML BOTTLE EACHEYE SCH ×3 (05:01→22:00)
[2022-11-26] MEDS: FAMOTIDINE 20 MG TABLET GT SCH ×2 (05:01→17:42)
[2022-11-26] MEDS: HYDROGEN PEROXIDE 3% 118 ML BOTTLE TP SCH ×2 (07:09→19:07)
[2022-11-26 07:23] VITALS: TEMP 98.5
[2022-11-26] MEDS: ACETAMINOPHEN 650 MG/20.3 ML LIQUID UDC GT SCH ×2 (08:30→20:33)
[2022-11-26] MEDS: levETIRAcetam 500 MG/5 ML LIQUID UDC GT SCH ×2 (09:46→20:34)
[2022-11-26] MEDS: FUROSEMIDE 20 MG TABLET GT SCH (09:48)
[2022-11-26] MEDS: POTASSIUM CHLORIDE 40 MEQ/30 ML LIQUID UDC GT SCH (09:48)
[2022-11-26] MEDS: DIGOXIN 125 MCG TABLET GT SCH (09:48)
[2022-11-26] MEDS: SERTRALINE HCL 25 MG TABLET GT SCH (09:48)
[2022-11-26] MEDS: COD LIVER OIL/ZINC OXIDE OINT 113 GM TUBE TP SCH ×2 (09:49→20:34)
[2022-11-26] MEDS: CLOTRIMAZOLE 1% CREAM 30 GM TUBE TP SCH ×2 (09:49→20:34)
[2022-11-26] MEDS: MEDIHONEY= THERAHONEY 1.5 OZ TUBE TOP SCH (09:49)
[2022-11-26] MEDS: REMEDY ESSENTIAL ZINC PASTE 113 GM TP SCH ×2 (09:49→20:35)
[2022-11-26] MEDS ORDERED: COD LIVER OIL/ZINC OXIDE OINT 113 GM TUBE TP PRN (15:15)
[2022-11-26] MEDS ORDERED: CLOTRIMAZOLE 1% CREAM 30 GM TUBE TP SCH (15:15)
[2022-11-26 20:00] VITALS: TEMP 98.2
[2022-11-26] MEDS: ACIDOPHILUS/BULGARICUS CHEW TAB GT SCH (20:33)
[2022-11-26] MEDS: NORMAL SALINE NASAL 45 ML BOTTLE NS SCH (20:34)
[2022-11-26] MEDS: ASCORBIC ACID 500 MG TABLET GT SCH (20:34)
[2022-11-27] MEDS: PROTEIN SUPPLEMENT (PROSTAT) 30 ML LIQUID GT SCH ×3 (05:15→21:01)
[2022-11-27] MEDS: POLYVINYL ALCOHOL OPHT DROPS 15 ML BOTTLE EACHEYE SCH ×3 (05:15→21:01)
[2022-11-27] MEDS: ARGININE/GLUTAMINE/CALCIUM BMB 1 EACH POWD.PACK GT SCH ×2 (05:15→17:51)
[2022-11-27] MEDS: FAMOTIDINE 20 MG TABLET GT SCH ×2 (05:15→17:51)
[2022-11-27 07:17] VITALS: TEMP 98.6
[2022-11-27] MEDS: HYDROGEN PEROXIDE 3% 118 ML BOTTLE TP SCH ×2 (08:16→21:15)
[2022-11-27] MEDS: levETIRAcetam 500 MG/5 ML LIQUID UDC GT SCH ×2 (08:34→21:01)
[2022-11-27] MEDS: POTASSIUM CHLORIDE 40 MEQ/30 ML LIQUID UDC GT SCH (08:34)
[2022-11-27] MEDS: DIGOXIN 125 MCG TABLET GT SCH (08:34)
[2022-11-27] MEDS: FUROSEMIDE 20 MG TABLET GT SCH (08:34)
[2022-11-27] MEDS: ACETAMINOPHEN 650 MG/20.3 ML LIQUID UDC GT SCH ×2 (08:34→21:01)
[2022-11-27] MEDS: CLOTRIMAZOLE 1% CREAM 30 GM TUBE TP SCH ×2 (08:35→21:01)
[2022-11-27] MEDS: SERTRALINE HCL 25 MG TABLET GT SCH (08:35)
[2022-11-27] MEDS: REMEDY ESSENTIAL ZINC PASTE 113 GM TP SCH ×2 (08:35→21:01)
[2022-11-27] MEDS: COD LIVER OIL/ZINC OXIDE OINT 113 GM TUBE TP SCH ×2 (08:35→21:01)
[2022-11-27] MEDS: GLUCERNA 1.2 1000ML LIQUID GT PRN (12:19)
[2022-11-27 20:18] VITALS: TEMP 97.9
[2022-11-27] MEDS: ASCORBIC ACID 500 MG TABLET GT SCH (21:01)
[2022-11-27] MEDS: ACIDOPHILUS/BULGARICUS CHEW TAB GT SCH (21:01)
[2022-11-27] MEDS: NORMAL SALINE NASAL 45 ML BOTTLE NS SCH (21:01)
[2022-11-28] MEDS: PROTEIN SUPPLEMENT (PROSTAT) 30 ML LIQUID GT SCH ×3 (05:44→22:17)
[2022-11-28] MEDS: POLYVINYL ALCOHOL OPHT DROPS 15 ML BOTTLE EACHEYE SCH ×3 (05:44→22:17)
[2022-11-28] MEDS: ARGININE/GLUTAMINE/CALCIUM BMB 1 EACH POWD.PACK GT SCH ×2 (05:44→17:00)
[2022-11-28] MEDS: FAMOTIDINE 20 MG TABLET GT SCH ×2 (05:44→17:00)
[2022-11-28 07:30] LABS: BASOPHILS % (AUTO) 0.6 % (0.0-2.0); EOSINOPHILS # (AUTO) 0.3 K/uL (0.0-0.7); EOSINOPHILS % (AUTO) 6.4 % (0.0-7.0); HEMATOCRIT 40.1 % (31.2-41.9); HEMOGLOBIN 13.1 g/dL (10.9-14.3); LYMPHOCYTES # (AUTO) 1.6 K/uL (0.8-4.8); LYMPHOCYTES % (AUTO) 33.6 % (20.5-51.5); MEAN CORPUSCULAR HEMOGLOBIN 30.2 uug (24.7-32.8); MEAN CORPUSCULAR HGB CONC 33 g/dL (32.3-35.6); MEAN CORPUSCULAR VOLUME 92.4 fL (75.5-95.3); MONOCYTES # (AUTO) 0.6 K/uL (0.1-1.30); MONOCYTES % (AUTO) 12.1 % (0.0-11.0); NEUTROPHILS # (AUTO) 2.2 K/uL (1.8-8.9); NEUTROPHILS % (AUTO) 47.3 % (38.5-71.5); PLATELET COUNT (AUTO) 111 K/uL (179-408); RED BLOOD CELL COUNT(AUTO) 4.35 MIL/uL (3.63-4.92); RED CELL DISTRIBUTION WIDTH 16.7 % (12.3-17.7); WHITE BLOOD COUNT (AUTO) 4.7 K/uL (3.8-11.8)
[2022-11-28 07:33] LABS: DIFFERENTIAL COMMENT 1
[2022-11-28 07:44] LABS: CALCIUM 9.5 mg/dL (8.5-10.1); CARBON DIOXIDE 30 mmol/L (21-32); CHLORIDE 108 mmol/L (98-107); CREATININE 0.7 mg/dL (0.6-1.3); GLUCOSE 105 mg/dL (74-106); MAGNESIUM 2.7 mg/dL (1.8-2.4); PHOSPHOROUS 3.9 mg/dL (2.5-4.9); POTASSIUM 4.2 mmol/L (3.5-5.1); SODIUM SERUM 147 mmol/L (136-145); UREA NITROGEN, BLOOD 34 mg/dL (7-18)
[2022-11-28] MEDS: HYDROGEN PEROXIDE 3% 118 ML BOTTLE TP SCH ×2 (07:51→19:02)
[2022-11-28 08:00] VITALS: TEMP 97.9
[2022-11-28] MEDS: ACETAMINOPHEN 650 MG/20.3 ML LIQUID UDC GT SCH ×2 (08:30→20:05)
[2022-11-28] MEDS: levETIRAcetam 500 MG/5 ML LIQUID UDC GT SCH ×2 (08:32→20:05)
[2022-11-28] MEDS: DIGOXIN 125 MCG TABLET GT SCH (08:33)
[2022-11-28] MEDS: FUROSEMIDE 20 MG TABLET GT SCH (08:33)
[2022-11-28] MEDS: CLOTRIMAZOLE 1% CREAM 30 GM TUBE TP SCH ×2 (08:34→20:05)
[2022-11-28] MEDS: SERTRALINE HCL 25 MG TABLET GT SCH (08:34)
[2022-11-28] MEDS: COD LIVER OIL/ZINC OXIDE OINT 113 GM TUBE TP SCH ×2 (08:34→20:05)
[2022-11-28] MEDS: POTASSIUM CHLORIDE 40 MEQ/30 ML LIQUID UDC GT SCH (08:34)
[2022-11-28] MEDS: REMEDY ESSENTIAL ZINC PASTE 113 GM TP SCH ×2 (08:35→20:05)
[2022-11-28 14:39] VITALS: TEMP 97.9
[2022-11-28 19:51] VITALS: TEMP 99.2
[2022-11-28] MEDS: NORMAL SALINE NASAL 45 ML BOTTLE NS SCH (20:05)
[2022-11-28] MEDS: ACIDOPHILUS/BULGARICUS CHEW TAB GT SCH (20:05)
[2022-11-28] MEDS: ASCORBIC ACID 500 MG TABLET GT SCH (20:05)
[2022-11-28] MEDS: GLUCERNA 1.2 1000ML LIQUID GT PRN (23:40)
[2022-11-29] MEDS: FAMOTIDINE 20 MG TABLET GT SCH ×2 (05:45→17:23)
[2022-11-29] MEDS: PROTEIN SUPPLEMENT (PROSTAT) 30 ML LIQUID GT SCH ×3 (05:45→22:29)
[2022-11-29] MEDS: ARGININE/GLUTAMINE/CALCIUM BMB 1 EACH POWD.PACK GT SCH ×2 (05:45→17:23)
[2022-11-29] MEDS: POLYVINYL ALCOHOL OPHT DROPS 15 ML BOTTLE EACHEYE SCH ×3 (05:45→22:29)
[2022-11-29 07:18] VITALS: TEMP 97.9
[2022-11-29] MEDS: SERTRALINE HCL 25 MG TABLET GT SCH (08:04)
[2022-11-29] MEDS: ACETAMINOPHEN 650 MG/20.3 ML LIQUID UDC GT SCH ×2 (08:04→20:30)
[2022-11-29] MEDS: levETIRAcetam 500 MG/5 ML LIQUID UDC GT SCH ×2 (08:04→20:30)
[2022-11-29] MEDS: REMEDY ESSENTIAL ZINC PASTE 113 GM TP SCH ×2 (08:04→20:30)
[2022-11-29] MEDS: DIGOXIN 125 MCG TABLET GT SCH (08:04)
[2022-11-29] MEDS: FUROSEMIDE 20 MG TABLET GT SCH (08:04)
[2022-11-29] MEDS: POTASSIUM CHLORIDE 40 MEQ/30 ML LIQUID UDC GT SCH (08:04)
[2022-11-29] MEDS: CLOTRIMAZOLE 1% CREAM 30 GM TUBE TP SCH ×2 (08:04→20:30)
[2022-11-29] MEDS: COD LIVER OIL/ZINC OXIDE OINT 113 GM TUBE TP SCH ×2 (08:04→20:30)
[2022-11-29] MEDS: HYDROGEN PEROXIDE 3% 118 ML BOTTLE TP SCH ×2 (09:04→19:13)
[2022-11-29 19:42] VITALS: TEMP 98.4
[2022-11-29] MEDS: ASCORBIC ACID 500 MG TABLET GT SCH (20:30)
[2022-11-29] MEDS: ACIDOPHILUS/BULGARICUS CHEW TAB GT SCH (20:30)
[2022-11-29] MEDS: NORMAL SALINE NASAL 45 ML BOTTLE NS SCH (20:30)
[2022-11-30] MEDS: ARGININE/GLUTAMINE/CALCIUM BMB 1 EACH POWD.PACK GT SCH ×2 (05:09→17:36)
[2022-11-30] MEDS: FAMOTIDINE 20 MG TABLET GT SCH ×2 (05:09→17:36)
[2022-11-30] MEDS: POLYVINYL ALCOHOL OPHT DROPS 15 ML BOTTLE EACHEYE SCH ×3 (05:09→22:00)
[2022-11-30] MEDS: PROTEIN SUPPLEMENT (PROSTAT) 30 ML LIQUID GT SCH ×3 (05:09→22:00)
[2022-11-30 07:20] VITALS: TEMP 98.6
[2022-11-30] MEDS: HYDROGEN PEROXIDE 3% 118 ML BOTTLE TP SCH ×2 (08:12→21:35)
[2022-11-30] MEDS: CLOTRIMAZOLE 1% CREAM 30 GM TUBE TP SCH ×2 (09:00→20:01)
[2022-11-30] MEDS: REMEDY ESSENTIAL ZINC PASTE 113 GM TP SCH ×2 (09:00→20:01)
[2022-11-30] MEDS: ACETAMINOPHEN 650 MG/20.3 ML LIQUID UDC GT SCH ×2 (09:14→20:00)
[2022-11-30] MEDS: levETIRAcetam 500 MG/5 ML LIQUID UDC GT SCH ×2 (09:15→20:00)
[2022-11-30] MEDS: DIGOXIN 125 MCG TABLET GT SCH (09:15)
[2022-11-30] MEDS: FUROSEMIDE 20 MG TABLET GT SCH (09:16)
[2022-11-30] MEDS: POTASSIUM CHLORIDE 40 MEQ/30 ML LIQUID UDC GT SCH (09:16)
[2022-11-30] MEDS: SERTRALINE HCL 25 MG TABLET GT SCH (09:17)
[2022-11-30] MEDS: COD LIVER OIL/ZINC OXIDE OINT 113 GM TUBE TP SCH ×2 (09:17→20:01)
[2022-11-30 20:00] VITALS: TEMP 96.9
[2022-11-30] MEDS: NORMAL SALINE NASAL 45 ML BOTTLE NS SCH (20:00)
[2022-11-30] MEDS: ASCORBIC ACID 500 MG TABLET GT SCH (20:00)
[2022-11-30] MEDS: ACIDOPHILUS/BULGARICUS CHEW TAB GT SCH (20:00)
[2022-12-01] MEDS: POLYVINYL ALCOHOL OPHT DROPS 15 ML BOTTLE EACHEYE SCH ×3 (05:36→22:43)
[2022-12-01] MEDS: PROTEIN SUPPLEMENT (PROSTAT) 30 ML LIQUID GT SCH ×3 (05:36→22:43)
[2022-12-01] MEDS: FAMOTIDINE 20 MG TABLET GT SCH ×2 (05:36→18:09)
[2022-12-01] MEDS: ARGININE/GLUTAMINE/CALCIUM BMB 1 EACH POWD.PACK GT SCH ×2 (05:36→18:09)
[2022-12-01 07:28] VITALS: TEMP 98.2
[2022-12-01] MEDS: COD LIVER OIL/ZINC OXIDE OINT 113 GM TUBE TP SCH ×2 (09:00→20:45)
[2022-12-01] MEDS: CLOTRIMAZOLE 1% CREAM 30 GM TUBE TP SCH ×2 (09:00→20:45)
[2022-12-01] MEDS: HYDROGEN PEROXIDE 3% 118 ML BOTTLE TP SCH ×2 (09:00→19:09)
[2022-12-01] MEDS: levETIRAcetam 500 MG/5 ML LIQUID UDC GT SCH ×2 (09:15→20:44)
[2022-12-01] MEDS: ACETAMINOPHEN 650 MG/20.3 ML LIQUID UDC GT SCH ×2 (09:15→20:44)
[2022-12-01] MEDS: DIGOXIN 125 MCG TABLET GT SCH (09:16)
[2022-12-01] MEDS: POTASSIUM CHLORIDE 40 MEQ/30 ML LIQUID UDC GT SCH (09:16)
[2022-12-01] MEDS: FUROSEMIDE 20 MG TABLET GT SCH (09:16)
[2022-12-01] MEDS: SERTRALINE HCL 25 MG TABLET GT SCH (09:17)
[2022-12-01] MEDS: REMEDY ESSENTIAL ZINC PASTE 113 GM TP SCH ×2 (09:17→20:45)
[2022-12-01 19:47] VITALS: TEMP 96.3
[2022-12-01 20:00] VITALS: TEMP 96.3
[2022-12-01] MEDS: ACIDOPHILUS/BULGARICUS CHEW TAB GT SCH (20:44)
[2022-12-01] MEDS: NORMAL SALINE NASAL 45 ML BOTTLE NS SCH (20:45)
[2022-12-01] MEDS: ASCORBIC ACID 500 MG TABLET GT SCH (20:45)
[2022-12-02] MEDS: FAMOTIDINE 20 MG TABLET GT SCH ×2 (05:06→17:21)
[2022-12-02] MEDS: ARGININE/GLUTAMINE/CALCIUM BMB 1 EACH POWD.PACK GT SCH ×2 (05:06→17:21)
[2022-12-02] MEDS: POLYVINYL ALCOHOL OPHT DROPS 15 ML BOTTLE EACHEYE SCH ×3 (05:06→21:39)
[2022-12-02] MEDS: PROTEIN SUPPLEMENT (PROSTAT) 30 ML LIQUID GT SCH ×3 (05:06→21:39)
[2022-12-02 07:54] VITALS: TEMP 97.6
[2022-12-02] MEDS: ACETAMINOPHEN 650 MG/20.3 ML LIQUID UDC GT SCH ×2 (08:06→20:30)
[2022-12-02] MEDS: levETIRAcetam 500 MG/5 ML LIQUID UDC GT SCH ×2 (08:06→21:00)
[2022-12-02] MEDS: DIGOXIN 125 MCG TABLET GT SCH (08:07)
[2022-12-02] MEDS: FUROSEMIDE 20 MG TABLET GT SCH (08:08)
[2022-12-02] MEDS: REMEDY ESSENTIAL ZINC PASTE 113 GM TP SCH ×2 (08:08→21:00)
[2022-12-02] MEDS: CLOTRIMAZOLE 1% CREAM 30 GM TUBE TP SCH ×2 (08:08→21:00)
[2022-12-02] MEDS: POTASSIUM CHLORIDE 40 MEQ/30 ML LIQUID UDC GT SCH (08:08)
[2022-12-02] MEDS: COD LIVER OIL/ZINC OXIDE OINT 113 GM TUBE TP SCH ×2 (08:08→21:00)
[2022-12-02] MEDS: SERTRALINE HCL 25 MG TABLET GT SCH (08:08)
[2022-12-02] MEDS: HYDROGEN PEROXIDE 3% 118 ML BOTTLE TP SCH ×2 (08:21→19:17)
[2022-12-02 20:00] VITALS: TEMP 97.5
[2022-12-02] MEDS: NORMAL SALINE NASAL 45 ML BOTTLE NS SCH (21:00)
[2022-12-02] MEDS: ACIDOPHILUS/BULGARICUS CHEW TAB GT SCH (21:00)
[2022-12-02] MEDS: ASCORBIC ACID 500 MG TABLET GT SCH (21:00)
[2022-12-03] MEDS: POLYVINYL ALCOHOL OPHT DROPS 15 ML BOTTLE EACHEYE SCH ×3 (05:09→21:22)
[2022-12-03] MEDS: FAMOTIDINE 20 MG TABLET GT SCH ×2 (05:09→17:26)
[2022-12-03] MEDS: ARGININE/GLUTAMINE/CALCIUM BMB 1 EACH POWD.PACK GT SCH ×2 (05:09→17:26)
[2022-12-03] MEDS: PROTEIN SUPPLEMENT (PROSTAT) 30 ML LIQUID GT SCH ×3 (05:09→21:22)
[2022-12-03 08:05] VITALS: TEMP 98.1
[2022-12-03 08:07] VITALS: TEMP 98.8
[2022-12-03] MEDS: HYDROGEN PEROXIDE 3% 118 ML BOTTLE TP SCH ×2 (08:24→19:05)
[2022-12-03] MEDS: ACETAMINOPHEN 650 MG/20.3 ML LIQUID UDC GT SCH ×2 (08:30→20:30)
[2022-12-03] MEDS: POTASSIUM CHLORIDE 40 MEQ/30 ML LIQUID UDC GT SCH (09:36)
[2022-12-03] MEDS: COD LIVER OIL/ZINC OXIDE OINT 113 GM TUBE TP SCH ×2 (09:36→21:22)
[2022-12-03] MEDS: FUROSEMIDE 20 MG TABLET GT SCH (09:36)
[2022-12-03] MEDS: levETIRAcetam 500 MG/5 ML LIQUID UDC GT SCH ×2 (09:36→21:21)
[2022-12-03] MEDS: REMEDY ESSENTIAL ZINC PASTE 113 GM TP SCH ×2 (09:36→21:22)
[2022-12-03] MEDS: CLOTRIMAZOLE 1% CREAM 30 GM TUBE TP SCH ×2 (09:36→21:22)
[2022-12-03] MEDS: DIGOXIN 125 MCG TABLET GT SCH (09:36)
[2022-12-03] MEDS: SERTRALINE HCL 25 MG TABLET GT SCH (09:36)
[2022-12-03 20:00] VITALS: TEMP 98.2
[2022-12-03] MEDS: NORMAL SALINE NASAL 45 ML BOTTLE NS SCH (21:21)
[2022-12-03] MEDS: ASCORBIC ACID 500 MG TABLET GT SCH (21:21)
[2022-12-03] MEDS: ACIDOPHILUS/BULGARICUS CHEW TAB GT SCH (21:21)
[2022-12-04] MEDS: GLUCERNA 1.2 1000ML LIQUID GT PRN (02:30)
[2022-12-04] MEDS: ARGININE/GLUTAMINE/CALCIUM BMB 1 EACH POWD.PACK GT SCH ×2 (05:13→17:24)
[2022-12-04] MEDS: PROTEIN SUPPLEMENT (PROSTAT) 30 ML LIQUID GT SCH ×3 (05:13→21:11)
[2022-12-04] MEDS: FAMOTIDINE 20 MG TABLET GT SCH ×2 (05:13→17:24)
[2022-12-04] MEDS: POLYVINYL ALCOHOL OPHT DROPS 15 ML BOTTLE EACHEYE SCH ×3 (05:13→21:11)
[2022-12-04 07:31] LABS: BASOPHILS % (AUTO) 0.9 % (0.0-2.0); EOSINOPHILS # (AUTO) 0.3 K/uL (0.0-0.7); EOSINOPHILS % (AUTO) 5.8 % (0.0-7.0); HEMATOCRIT 38.9 % (31.2-41.9); LYMPHOCYTES # (AUTO) 1.5 K/uL (0.8-4.8); LYMPHOCYTES % (AUTO) 32.4 % (20.5-51.5); MEAN CORPUSCULAR HEMOGLOBIN 30.4 uug (24.7-32.8); MEAN CORPUSCULAR HGB CONC 33 g/dL (32.3-35.6); MONOCYTES # (AUTO) 0.5 K/uL (0.1-1.30); MONOCYTES % (AUTO) 10.4 % (0.0-11.0); NEUTROPHILS # (AUTO) 2.3 K/uL (1.8-8.9); NEUTROPHILS % (AUTO) 50.5 % (38.5-71.5); PLATELET COUNT (AUTO) 114 K/uL (179-408); RED BLOOD CELL COUNT(AUTO) 4.27 MIL/uL (3.63-4.92); RED CELL DISTRIBUTION WIDTH 15.9 % (12.3-17.7); WHITE BLOOD COUNT (AUTO) 4.6 K/uL (3.8-11.8)
[2022-12-04 07:54] LABS: DIFFERENTIAL COMMENT 1
[2022-12-04 07:55] VITALS: TEMP 98
[2022-12-04] MEDS: HYDROGEN PEROXIDE 3% 118 ML BOTTLE TP SCH ×2 (08:15→19:01)
[2022-12-04 08:55] LABS: CALCIUM 9.1 mg/dL (8.5-10.1); CREATININE 0.7 mg/dL (0.6-1.3); MAGNESIUM 2.4 mg/dL (1.8-2.4); PHOSPHOROUS 3.5 mg/dL (2.5-4.9); POTASSIUM 3.6 mmol/L (3.5-5.1)
[2022-12-04] MEDS: FUROSEMIDE 20 MG TABLET GT SCH (09:25)
[2022-12-04] MEDS: SERTRALINE HCL 25 MG TABLET GT SCH (09:25)
[2022-12-04] MEDS: COD LIVER OIL/ZINC OXIDE OINT 113 GM TUBE TP SCH ×2 (09:25→20:06)
[2022-12-04] MEDS: ACETAMINOPHEN 650 MG/20.3 ML LIQUID UDC GT SCH ×2 (09:25→19:58)
[2022-12-04] MEDS: CLOTRIMAZOLE 1% CREAM 30 GM TUBE TP SCH ×2 (09:25→20:06)
[2022-12-04] MEDS: POTASSIUM CHLORIDE 40 MEQ/30 ML LIQUID UDC GT SCH (09:25)
[2022-12-04] MEDS: levETIRAcetam 500 MG/5 ML LIQUID UDC GT SCH ×2 (09:25→20:06)
[2022-12-04] MEDS: DIGOXIN 125 MCG TABLET GT SCH (09:25)
[2022-12-04] MEDS: REMEDY ESSENTIAL ZINC PASTE 113 GM TP SCH ×2 (09:26→20:06)
[2022-12-04 20:00] VITALS: TEMP 97.1
[2022-12-04] MEDS: ASCORBIC ACID 500 MG TABLET GT SCH (20:06)
[2022-12-04] MEDS: NORMAL SALINE NASAL 45 ML BOTTLE NS SCH (20:06)
[2022-12-04] MEDS: ACIDOPHILUS/BULGARICUS CHEW TAB GT SCH (20:06)
[2022-12-05] MEDS: PROTEIN SUPPLEMENT (PROSTAT) 30 ML LIQUID GT SCH ×3 (05:20→22:25)
[2022-12-05] MEDS: FAMOTIDINE 20 MG TABLET GT SCH ×2 (05:20→17:09)
[2022-12-05] MEDS: POLYVINYL ALCOHOL OPHT DROPS 15 ML BOTTLE EACHEYE SCH ×3 (05:20→22:25)
[2022-12-05] MEDS: ARGININE/GLUTAMINE/CALCIUM BMB 1 EACH POWD.PACK GT SCH ×2 (05:22→17:09)
[2022-12-05] MEDS: HYDROGEN PEROXIDE 3% 118 ML BOTTLE TP SCH ×2 (06:59→18:48)
[2022-12-05 07:25] VITALS: TEMP 98.8
[2022-12-05] MEDS: SERTRALINE HCL 25 MG TABLET GT SCH (08:27)
[2022-12-05] MEDS: CLOTRIMAZOLE 1% CREAM 30 GM TUBE TP SCH ×2 (08:27→20:29)
[2022-12-05] MEDS: FUROSEMIDE 20 MG TABLET GT SCH (08:27)
[2022-12-05] MEDS: DIGOXIN 125 MCG TABLET GT SCH (08:27)
[2022-12-05] MEDS: POTASSIUM CHLORIDE 40 MEQ/30 ML LIQUID UDC GT SCH (08:27)
[2022-12-05] MEDS: COD LIVER OIL/ZINC OXIDE OINT 113 GM TUBE TP SCH ×2 (08:27→20:29)
[2022-12-05] MEDS: ACETAMINOPHEN 650 MG/20.3 ML LIQUID UDC GT SCH ×2 (08:27→20:29)
[2022-12-05] MEDS: REMEDY ESSENTIAL ZINC PASTE 113 GM TP SCH ×2 (08:27→20:29)
[2022-12-05] MEDS: levETIRAcetam 500 MG/5 ML LIQUID UDC GT SCH ×2 (08:27→20:29)
[2022-12-05 19:52] VITALS: TEMP 98.7
[2022-12-05] MEDS: NORMAL SALINE NASAL 45 ML BOTTLE NS SCH (20:29)
[2022-12-05] MEDS: ACIDOPHILUS/BULGARICUS CHEW TAB GT SCH (20:29)
[2022-12-05] MEDS: ASCORBIC ACID 500 MG TABLET GT SCH (20:29)
[2022-12-06] MEDS: FAMOTIDINE 20 MG TABLET GT SCH ×2 (05:34→18:55)
[2022-12-06] MEDS: PROTEIN SUPPLEMENT (PROSTAT) 30 ML LIQUID GT SCH ×3 (05:34→22:06)
[2022-12-06] MEDS: POLYVINYL ALCOHOL OPHT DROPS 15 ML BOTTLE EACHEYE SCH ×3 (05:34→22:06)
[2022-12-06] MEDS: ARGININE/GLUTAMINE/CALCIUM BMB 1 EACH POWD.PACK GT SCH ×2 (05:34→18:55)
[2022-12-06] MEDS: HYDROGEN PEROXIDE 3% 118 ML BOTTLE TP SCH ×2 (07:12→19:06)
[2022-12-06 07:17] VITALS: TEMP 97.3
[2022-12-06] MEDS: levETIRAcetam 500 MG/5 ML LIQUID UDC GT SCH ×2 (09:25→20:13)
[2022-12-06] MEDS: ACETAMINOPHEN 650 MG/20.3 ML LIQUID UDC GT SCH ×2 (09:25→20:13)
[2022-12-06] MEDS: DIGOXIN 125 MCG TABLET GT SCH (09:26)
[2022-12-06] MEDS: SERTRALINE HCL 25 MG TABLET GT SCH (09:26)
[2022-12-06] MEDS: FUROSEMIDE 20 MG TABLET GT SCH (09:26)
[2022-12-06] MEDS: POTASSIUM CHLORIDE 40 MEQ/30 ML LIQUID UDC GT SCH (09:26)
[2022-12-06] MEDS: COD LIVER OIL/ZINC OXIDE OINT 113 GM TUBE TP SCH ×2 (09:26→20:14)
[2022-12-06] MEDS: CLOTRIMAZOLE 1% CREAM 30 GM TUBE TP SCH ×2 (09:27→20:14)
[2022-12-06] MEDS: REMEDY ESSENTIAL ZINC PASTE 113 GM TP SCH ×2 (09:27→20:14)
[2022-12-06] MEDS: GLUCERNA 1.2 1000ML LIQUID GT PRN (13:29)
[2022-12-06 20:13] VITALS: TEMP 98
[2022-12-06] MEDS: ACIDOPHILUS/BULGARICUS CHEW TAB GT SCH (20:13)
[2022-12-06] MEDS: ASCORBIC ACID 500 MG TABLET GT SCH (20:14)
[2022-12-06] MEDS: NORMAL SALINE NASAL 45 ML BOTTLE NS SCH (20:14)
[2022-12-07] MEDS: FAMOTIDINE 20 MG TABLET GT SCH ×2 (05:02→17:05)
[2022-12-07] MEDS: ARGININE/GLUTAMINE/CALCIUM BMB 1 EACH POWD.PACK GT SCH ×2 (05:02→17:05)
[2022-12-07] MEDS: PROTEIN SUPPLEMENT (PROSTAT) 30 ML LIQUID GT SCH ×3 (05:02→22:00)
[2022-12-07] MEDS: POLYVINYL ALCOHOL OPHT DROPS 15 ML BOTTLE EACHEYE SCH ×3 (05:02→22:00)
[2022-12-07 07:19] VITALS: TEMP 98.1
[2022-12-07] MEDS: ACETAMINOPHEN 650 MG/20.3 ML LIQUID UDC GT SCH ×2 (08:30→20:18)
[2022-12-07] MEDS: HYDROGEN PEROXIDE 3% 118 ML BOTTLE TP SCH ×2 (08:47→20:53)
[2022-12-07] MEDS: SERTRALINE HCL 25 MG TABLET GT SCH (09:49)
[2022-12-07] MEDS: DIGOXIN 125 MCG TABLET GT SCH (09:49)
[2022-12-07] MEDS: levETIRAcetam 500 MG/5 ML LIQUID UDC GT SCH ×2 (09:49→20:18)
[2022-12-07] MEDS: FUROSEMIDE 20 MG TABLET GT SCH (09:49)
[2022-12-07] MEDS: POTASSIUM CHLORIDE 40 MEQ/30 ML LIQUID UDC GT SCH (09:49)
[2022-12-07] MEDS: COD LIVER OIL/ZINC OXIDE OINT 113 GM TUBE TP SCH ×2 (09:50→20:18)
[2022-12-07] MEDS: CLOTRIMAZOLE 1% CREAM 30 GM TUBE TP SCH ×2 (09:50→20:24)
[2022-12-07] MEDS: REMEDY ESSENTIAL ZINC PASTE 113 GM TP SCH ×2 (09:50→20:24)
[2022-12-07 19:48] VITALS: TEMP 97.3
[2022-12-07] MEDS: ASCORBIC ACID 500 MG TABLET GT SCH (20:18)
[2022-12-07] MEDS: NORMAL SALINE NASAL 45 ML BOTTLE NS SCH (20:18)
[2022-12-07] MEDS: ACIDOPHILUS/BULGARICUS CHEW TAB GT SCH (20:18)
[2022-12-08] MEDS: ARGININE/GLUTAMINE/CALCIUM BMB 1 EACH POWD.PACK GT SCH ×2 (05:03→17:21)
[2022-12-08] MEDS: POLYVINYL ALCOHOL OPHT DROPS 15 ML BOTTLE EACHEYE SCH ×3 (05:03→22:00)
[2022-12-08] MEDS: FAMOTIDINE 20 MG TABLET GT SCH ×2 (05:03→17:21)
[2022-12-08] MEDS: GLUCERNA 1.2 1000ML LIQUID GT PRN (05:03)
[2022-12-08] MEDS: PROTEIN SUPPLEMENT (PROSTAT) 30 ML LIQUID GT SCH ×3 (05:03→22:00)
[2022-12-08 07:40] VITALS: BP 110/48; TEMP 98.3; O2SAT 100
[2022-12-08] MEDS: ACETAMINOPHEN 650 MG/20.3 ML LIQUID UDC GT SCH ×2 (08:58→19:56)
[2022-12-08] MEDS: levETIRAcetam 500 MG/5 ML LIQUID UDC GT SCH ×2 (08:58→20:51)
[2022-12-08] MEDS: REMEDY ESSENTIAL ZINC PASTE 113 GM TP SCH ×2 (08:59→20:51)
[2022-12-08] MEDS: DIGOXIN 125 MCG TABLET GT SCH (08:59)
[2022-12-08] MEDS: POTASSIUM CHLORIDE 40 MEQ/30 ML LIQUID UDC GT SCH (08:59)
[2022-12-08] MEDS: CLOTRIMAZOLE 1% CREAM 30 GM TUBE TP SCH ×2 (08:59→20:51)
[2022-12-08] MEDS: FUROSEMIDE 20 MG TABLET GT SCH (08:59)
[2022-12-08] MEDS: COD LIVER OIL/ZINC OXIDE OINT 113 GM TUBE TP SCH ×2 (08:59→20:51)
[2022-12-08] MEDS: SERTRALINE HCL 25 MG TABLET GT SCH (08:59)
[2022-12-08] MEDS: HYDROGEN PEROXIDE 3% 118 ML BOTTLE TP SCH ×2 (09:00→19:13)
[2022-12-08] MEDS: ACIDOPHILUS/BULGARICUS CHEW TAB GT SCH (20:51)
[2022-12-08] MEDS: ASCORBIC ACID 500 MG TABLET GT SCH (20:51)
[2022-12-08] MEDS: NORMAL SALINE NASAL 45 ML BOTTLE NS SCH (20:51)
[2022-12-08 20:57] VITALS: TEMP 98.5
[2022-12-09] MEDS: ARGININE/GLUTAMINE/CALCIUM BMB 1 EACH POWD.PACK GT SCH ×2 (05:11→17:22)
[2022-12-09] MEDS: FAMOTIDINE 20 MG TABLET GT SCH ×2 (05:12→17:22)
[2022-12-09] MEDS: PROTEIN SUPPLEMENT (PROSTAT) 30 ML LIQUID GT SCH ×3 (05:13→21:52)
[2022-12-09] MEDS: POLYVINYL ALCOHOL OPHT DROPS 15 ML BOTTLE EACHEYE SCH ×3 (05:13→21:52)
[2022-12-09 07:44] VITALS: TEMP 97.8
[2022-12-09] MEDS: HYDROGEN PEROXIDE 3% 118 ML BOTTLE TP SCH ×2 (08:36→19:26)
[2022-12-09] MEDS: ACETAMINOPHEN 650 MG/20.3 ML LIQUID UDC GT SCH ×2 (09:02→20:01)
[2022-12-09] MEDS: levETIRAcetam 500 MG/5 ML LIQUID UDC GT SCH ×2 (09:03→20:01)
[2022-12-09] MEDS: POTASSIUM CHLORIDE 40 MEQ/30 ML LIQUID UDC GT SCH (09:04)
[2022-12-09] MEDS: DIGOXIN 125 MCG TABLET GT SCH (09:04)
[2022-12-09] MEDS: FUROSEMIDE 20 MG TABLET GT SCH (09:04)
[2022-12-09] MEDS: CLOTRIMAZOLE 1% CREAM 30 GM TUBE TP SCH ×2 (09:05→20:02)
[2022-12-09] MEDS: COD LIVER OIL/ZINC OXIDE OINT 113 GM TUBE TP SCH ×2 (09:05→20:01)
[2022-12-09] MEDS: SERTRALINE HCL 25 MG TABLET GT SCH (09:05)
[2022-12-09] MEDS: REMEDY ESSENTIAL ZINC PASTE 113 GM TP SCH ×2 (09:05→20:02)
[2022-12-09 11:40] VITALS: O2SAT 99
[2022-12-09 20:00] VITALS: TEMP 98.3
[2022-12-09] MEDS: ASCORBIC ACID 500 MG TABLET GT SCH (20:01)
[2022-12-09] MEDS: NORMAL SALINE NASAL 45 ML BOTTLE NS SCH (20:01)
[2022-12-09] MEDS: ACIDOPHILUS/BULGARICUS CHEW TAB GT SCH (20:01)
[2022-12-10] MEDS: GLUCERNA 1.2 1000ML LIQUID GT PRN (05:00)
[2022-12-10] MEDS: ARGININE/GLUTAMINE/CALCIUM BMB 1 EACH POWD.PACK GT SCH ×2 (05:44→17:03)
[2022-12-10] MEDS: POLYVINYL ALCOHOL OPHT DROPS 15 ML BOTTLE EACHEYE SCH ×3 (05:44→22:25)
[2022-12-10] MEDS: PROTEIN SUPPLEMENT (PROSTAT) 30 ML LIQUID GT SCH ×3 (05:44→22:25)
[2022-12-10] MEDS: FAMOTIDINE 20 MG TABLET GT SCH ×2 (05:44→17:03)
[2022-12-10] MEDS: HYDROGEN PEROXIDE 3% 118 ML BOTTLE TP SCH ×2 (07:12→19:37)
[2022-12-10 07:28] VITALS: TEMP 97.4
[2022-12-10] MEDS: levETIRAcetam 500 MG/5 ML LIQUID UDC GT SCH ×2 (08:12→20:40)
[2022-12-10] MEDS: ACETAMINOPHEN 650 MG/20.3 ML LIQUID UDC GT SCH ×2 (08:12→20:30)
[2022-12-10] MEDS: SERTRALINE HCL 25 MG TABLET GT SCH (08:13)
[2022-12-10] MEDS: CLOTRIMAZOLE 1% CREAM 30 GM TUBE TP SCH ×2 (08:13→20:40)
[2022-12-10] MEDS: COD LIVER OIL/ZINC OXIDE OINT 113 GM TUBE TP SCH ×2 (08:13→20:40)
[2022-12-10] MEDS: POTASSIUM CHLORIDE 40 MEQ/30 ML LIQUID UDC GT SCH (08:13)
[2022-12-10] MEDS: DIGOXIN 125 MCG TABLET GT SCH (08:13)
[2022-12-10] MEDS: FUROSEMIDE 20 MG TABLET GT SCH (08:13)
[2022-12-10] MEDS: REMEDY ESSENTIAL ZINC PASTE 113 GM TP SCH ×2 (08:14→20:40)
[2022-12-10 20:00] VITALS: TEMP 98.8
[2022-12-10] MEDS: NORMAL SALINE NASAL 45 ML BOTTLE NS SCH (20:40)
[2022-12-10] MEDS: ASCORBIC ACID 500 MG TABLET GT SCH (20:40)
[2022-12-10] MEDS: ACIDOPHILUS/BULGARICUS CHEW TAB GT SCH (20:40)
[2022-12-11] MEDS: POLYVINYL ALCOHOL OPHT DROPS 15 ML BOTTLE EACHEYE SCH ×3 (05:04→21:20)
[2022-12-11] MEDS: FAMOTIDINE 20 MG TABLET GT SCH ×2 (05:04→17:00)
[2022-12-11] MEDS: PROTEIN SUPPLEMENT (PROSTAT) 30 ML LIQUID GT SCH ×3 (05:04→21:20)
[2022-12-11] MEDS: ARGININE/GLUTAMINE/CALCIUM BMB 1 EACH POWD.PACK GT SCH ×2 (05:04→17:00)
[2022-12-11 07:24] VITALS: TEMP 98
[2022-12-11] MEDS: HYDROGEN PEROXIDE 3% 118 ML BOTTLE TP SCH ×2 (08:00→19:07)
[2022-12-11] MEDS: DIGOXIN 125 MCG TABLET GT SCH (08:14)
[2022-12-11] MEDS: levETIRAcetam 500 MG/5 ML LIQUID UDC GT SCH ×2 (08:14→20:30)
[2022-12-11] MEDS: ACETAMINOPHEN 650 MG/20.3 ML LIQUID UDC GT SCH ×2 (08:14→20:30)
[2022-12-11] MEDS: FUROSEMIDE 20 MG TABLET GT SCH (08:14)
[2022-12-11] MEDS: REMEDY ESSENTIAL ZINC PASTE 113 GM TP SCH ×2 (08:15→20:31)
[2022-12-11] MEDS: CLOTRIMAZOLE 1% CREAM 30 GM TUBE TP SCH ×2 (08:15→20:30)
[2022-12-11] MEDS: SERTRALINE HCL 25 MG TABLET GT SCH (08:15)
[2022-12-11] MEDS: COD LIVER OIL/ZINC OXIDE OINT 113 GM TUBE TP SCH ×2 (08:15→20:30)
[2022-12-11] MEDS: POTASSIUM CHLORIDE 40 MEQ/30 ML LIQUID UDC GT SCH (08:15)
[2022-12-11] MEDS: GLUCERNA 1.2 1000ML LIQUID GT PRN (15:44)
[2022-12-11 20:29] VITALS: TEMP 97.8
[2022-12-11] MEDS: NORMAL SALINE NASAL 45 ML BOTTLE NS SCH (20:30)
[2022-12-11] MEDS: ASCORBIC ACID 500 MG TABLET GT SCH (20:30)
[2022-12-11] MEDS: ACIDOPHILUS/BULGARICUS CHEW TAB GT SCH (20:30)
[2022-12-12] MEDS: POLYVINYL ALCOHOL OPHT DROPS 15 ML BOTTLE EACHEYE SCH ×3 (05:46→22:21)
[2022-12-12] MEDS: ARGININE/GLUTAMINE/CALCIUM BMB 1 EACH POWD.PACK GT SCH ×2 (05:46→17:09)
[2022-12-12] MEDS: FAMOTIDINE 20 MG TABLET GT SCH ×2 (05:47→17:11)
[2022-12-12] MEDS: PROTEIN SUPPLEMENT (PROSTAT) 30 ML LIQUID GT SCH ×3 (05:47→22:21)
[2022-12-12] MEDS: HYDROGEN PEROXIDE 3% 118 ML BOTTLE TP SCH ×2 (07:05→19:02)
[2022-12-12 07:19] VITALS: TEMP 98.4
[2022-12-12] MEDS: ACETAMINOPHEN 650 MG/20.3 ML LIQUID UDC GT SCH ×2 (08:16→20:09)
[2022-12-12] MEDS: SERTRALINE HCL 25 MG TABLET GT SCH (08:16)
[2022-12-12] MEDS: COD LIVER OIL/ZINC OXIDE OINT 113 GM TUBE TP SCH ×2 (08:16→20:09)
[2022-12-12] MEDS: POTASSIUM CHLORIDE 40 MEQ/30 ML LIQUID UDC GT SCH (08:16)
[2022-12-12] MEDS: FUROSEMIDE 20 MG TABLET GT SCH (08:16)
[2022-12-12] MEDS: levETIRAcetam 500 MG/5 ML LIQUID UDC GT SCH ×2 (08:16→20:09)
[2022-12-12] MEDS: DIGOXIN 125 MCG TABLET GT SCH (08:16)
[2022-12-12] MEDS: CLOTRIMAZOLE 1% CREAM 30 GM TUBE TP SCH ×2 (08:16→20:09)
[2022-12-12] MEDS: REMEDY ESSENTIAL ZINC PASTE 113 GM TP SCH ×2 (08:17→20:10)
[2022-12-12] MEDS: ACIDOPHILUS/BULGARICUS CHEW TAB GT SCH (20:09)
[2022-12-12] MEDS: NORMAL SALINE NASAL 45 ML BOTTLE NS SCH (20:09)
[2022-12-12] MEDS: ASCORBIC ACID 500 MG TABLET GT SCH (20:09)
[2022-12-12 22:46] VITALS: TEMP 98.4
[2022-12-13] MEDS: PROTEIN SUPPLEMENT (PROSTAT) 30 ML LIQUID GT SCH ×3 (05:08→22:25)
[2022-12-13] MEDS: ARGININE/GLUTAMINE/CALCIUM BMB 1 EACH POWD.PACK GT SCH ×2 (05:08→17:08)
[2022-12-13] MEDS: POLYVINYL ALCOHOL OPHT DROPS 15 ML BOTTLE EACHEYE SCH ×3 (05:08→22:25)
[2022-12-13] MEDS: FAMOTIDINE 20 MG TABLET GT SCH ×2 (05:08→17:08)
[2022-12-13] MEDS: GLUCERNA 1.2 1000ML LIQUID GT PRN (05:08)
[2022-12-13 07:17] VITALS: TEMP 98.1
[2022-12-13] MEDS: ACETAMINOPHEN 650 MG/20.3 ML LIQUID UDC GT SCH ×2 (08:21→20:01)
[2022-12-13] MEDS: levETIRAcetam 500 MG/5 ML LIQUID UDC GT SCH ×2 (08:22→20:01)
[2022-12-13] MEDS: DIGOXIN 125 MCG TABLET GT SCH (08:23)
[2022-12-13] MEDS: FUROSEMIDE 20 MG TABLET GT SCH (08:23)
[2022-12-13] MEDS: SERTRALINE HCL 25 MG TABLET GT SCH (08:23)
[2022-12-13] MEDS: POTASSIUM CHLORIDE 40 MEQ/30 ML LIQUID UDC GT SCH (08:25)
[2022-12-13] MEDS: COD LIVER OIL/ZINC OXIDE OINT 113 GM TUBE TP SCH ×2 (08:25→21:00)
[2022-12-13] MEDS: REMEDY ESSENTIAL ZINC PASTE 113 GM TP SCH ×2 (08:27→21:00)
[2022-12-13] MEDS: CLOTRIMAZOLE 1% CREAM 30 GM TUBE TP SCH ×2 (08:27→21:00)
[2022-12-13] MEDS: HYDROGEN PEROXIDE 3% 118 ML BOTTLE TP SCH ×2 (08:30→19:09)
[2022-12-13] MEDS: ACIDOPHILUS/BULGARICUS CHEW TAB GT SCH (20:01)
[2022-12-13] MEDS: ASCORBIC ACID 500 MG TABLET GT SCH (20:01)
[2022-12-13 20:39] VITALS: TEMP 98.6
[2022-12-13] MEDS: NORMAL SALINE NASAL 45 ML BOTTLE NS SCH (21:00)
[2022-12-14] MEDS: POLYVINYL ALCOHOL OPHT DROPS 15 ML BOTTLE EACHEYE SCH ×3 (05:00→21:22)
[2022-12-14] MEDS: FAMOTIDINE 20 MG TABLET GT SCH ×2 (05:00→17:46)
[2022-12-14] MEDS: PROTEIN SUPPLEMENT (PROSTAT) 30 ML LIQUID GT SCH ×3 (05:00→21:22)
[2022-12-14] MEDS: ARGININE/GLUTAMINE/CALCIUM BMB 1 EACH POWD.PACK GT SCH ×2 (05:00→17:46)
[2022-12-14] MEDS: GLUCERNA 1.2 1000ML LIQUID GT PRN (05:01)
[2022-12-14] MEDS: HYDROGEN PEROXIDE 3% 118 ML BOTTLE TP SCH ×2 (07:13→19:21)
[2022-12-14 07:23] VITALS: TEMP 97.6
[2022-12-14] MEDS: ACETAMINOPHEN 650 MG/20.3 ML LIQUID UDC GT SCH ×2 (07:57→21:21)
[2022-12-14] MEDS: DIGOXIN 125 MCG TABLET GT SCH (08:02)
[2022-12-14] MEDS: levETIRAcetam 500 MG/5 ML LIQUID UDC GT SCH ×2 (08:02→21:21)
[2022-12-14] MEDS: SERTRALINE HCL 25 MG TABLET GT SCH (08:03)
[2022-12-14] MEDS: FUROSEMIDE 20 MG TABLET GT SCH (08:03)
[2022-12-14] MEDS: COD LIVER OIL/ZINC OXIDE OINT 113 GM TUBE TP SCH ×2 (08:04→21:22)
[2022-12-14] MEDS: REMEDY ESSENTIAL ZINC PASTE 113 GM TP SCH ×2 (08:12→21:22)
[2022-12-14] MEDS: CLOTRIMAZOLE 1% CREAM 30 GM TUBE TP SCH ×2 (08:12→21:22)
[2022-12-14] MEDS: POTASSIUM CHLORIDE 40 MEQ/30 ML LIQUID UDC GT SCH (09:00)
[2022-12-14 20:00] VITALS: TEMP 98.2
[2022-12-14] MEDS: ACIDOPHILUS/BULGARICUS CHEW TAB GT SCH (21:21)
[2022-12-14] MEDS: NORMAL SALINE NASAL 45 ML BOTTLE NS SCH (21:22)
[2022-12-14] MEDS: ASCORBIC ACID 500 MG TABLET GT SCH (21:22)
[2022-12-15] MEDS: ARGININE/GLUTAMINE/CALCIUM BMB 1 EACH POWD.PACK GT SCH ×2 (05:14→18:00)
[2022-12-15] MEDS: FAMOTIDINE 20 MG TABLET GT SCH ×2 (05:14→18:00)
[2022-12-15] MEDS: PROTEIN SUPPLEMENT (PROSTAT) 30 ML LIQUID GT SCH ×3 (05:14→22:07)
[2022-12-15] MEDS: POLYVINYL ALCOHOL OPHT DROPS 15 ML BOTTLE EACHEYE SCH ×3 (05:14→22:07)
[2022-12-15 07:41] VITALS: TEMP 98.3
[2022-12-15] MEDS: HYDROGEN PEROXIDE 3% 118 ML BOTTLE TP SCH ×2 (09:00→19:24)
[2022-12-15] MEDS: levETIRAcetam 500 MG/5 ML LIQUID UDC GT SCH ×2 (09:22→20:10)
[2022-12-15] MEDS: ACETAMINOPHEN 650 MG/20.3 ML LIQUID UDC GT SCH ×2 (09:22→20:10)
[2022-12-15] MEDS: DIGOXIN 125 MCG TABLET GT SCH (09:23)
[2022-12-15] MEDS: FUROSEMIDE 20 MG TABLET GT SCH (09:24)
[2022-12-15] MEDS: REMEDY ESSENTIAL ZINC PASTE 113 GM TP SCH ×2 (09:24→20:10)
[2022-12-15] MEDS: POTASSIUM CHLORIDE 40 MEQ/30 ML LIQUID UDC GT SCH (09:24)
[2022-12-15] MEDS: SERTRALINE HCL 25 MG TABLET GT SCH (09:24)
[2022-12-15] MEDS: COD LIVER OIL/ZINC OXIDE OINT 113 GM TUBE TP SCH ×2 (09:24→20:10)
[2022-12-15] MEDS: CLOTRIMAZOLE 1% CREAM 30 GM TUBE TP SCH ×2 (09:24→20:10)
[2022-12-15] MEDS: GLUCERNA 1.2 1000ML LIQUID GT PRN (15:07)
[2022-12-15 20:00] VITALS: TEMP 97.7; TEMP 98.5
[2022-12-15] MEDS: ASCORBIC ACID 500 MG TABLET GT SCH (20:10)
[2022-12-15] MEDS: NORMAL SALINE NASAL 45 ML BOTTLE NS SCH (20:10)
[2022-12-15] MEDS: ACIDOPHILUS/BULGARICUS CHEW TAB GT SCH (20:10)
[2022-12-16] MEDS: FAMOTIDINE 20 MG TABLET GT SCH ×2 (05:01→17:05)
[2022-12-16] MEDS: POLYVINYL ALCOHOL OPHT DROPS 15 ML BOTTLE EACHEYE SCH ×3 (05:01→21:35)
[2022-12-16] MEDS: ARGININE/GLUTAMINE/CALCIUM BMB 1 EACH POWD.PACK GT SCH ×2 (05:01→17:05)
[2022-12-16] MEDS: PROTEIN SUPPLEMENT (PROSTAT) 30 ML LIQUID GT SCH ×3 (05:01→21:35)
[2022-12-16 07:30] VITALS: TEMP 97.3
[2022-12-16] MEDS: ACETAMINOPHEN 650 MG/20.3 ML LIQUID UDC GT SCH ×2 (08:48→20:30)
[2022-12-16] MEDS: levETIRAcetam 500 MG/5 ML LIQUID UDC GT SCH ×2 (08:49→21:35)
[2022-12-16] MEDS: DIGOXIN 125 MCG TABLET GT SCH (08:50)
[2022-12-16] MEDS: FUROSEMIDE 20 MG TABLET GT SCH (08:50)
[2022-12-16] MEDS: SERTRALINE HCL 25 MG TABLET GT SCH (08:51)
[2022-12-16] MEDS: CLOTRIMAZOLE 1% CREAM 30 GM TUBE TP SCH ×2 (08:52→21:35)
[2022-12-16] MEDS: POTASSIUM CHLORIDE 40 MEQ/30 ML LIQUID UDC GT SCH (08:52)
[2022-12-16] MEDS: COD LIVER OIL/ZINC OXIDE OINT 113 GM TUBE TP SCH ×2 (08:52→21:35)
[2022-12-16] MEDS: REMEDY ESSENTIAL ZINC PASTE 113 GM TP SCH ×2 (08:53→21:35)
[2022-12-16] MEDS: HYDROGEN PEROXIDE 3% 118 ML BOTTLE TP SCH ×2 (09:00→21:02)
[2022-12-16 20:00] VITALS: TEMP 98.5
[2022-12-16] MEDS: ACIDOPHILUS/BULGARICUS CHEW TAB GT SCH (21:35)
[2022-12-16] MEDS: NORMAL SALINE NASAL 45 ML BOTTLE NS SCH (21:35)
[2022-12-16] MEDS: ASCORBIC ACID 500 MG TABLET GT SCH (21:35)
[2022-12-16] MEDS: GLUCERNA 1.2 1000ML LIQUID GT PRN (22:00)
[2022-12-17] MEDS: ARGININE/GLUTAMINE/CALCIUM BMB 1 EACH POWD.PACK GT SCH ×2 (05:03→17:33)
[2022-12-17] MEDS: POLYVINYL ALCOHOL OPHT DROPS 15 ML BOTTLE EACHEYE SCH ×3 (05:03→22:00)
[2022-12-17] MEDS: FAMOTIDINE 20 MG TABLET GT SCH ×2 (05:03→17:34)
[2022-12-17] MEDS: PROTEIN SUPPLEMENT (PROSTAT) 30 ML LIQUID GT SCH ×3 (05:03→22:00)
[2022-12-17 07:30] VITALS: TEMP 97.9
[2022-12-17] MEDS: HYDROGEN PEROXIDE 3% 118 ML BOTTLE TP SCH ×2 (07:31→21:46)
[2022-12-17] MEDS: POTASSIUM CHLORIDE 40 MEQ/30 ML LIQUID UDC GT SCH (09:12)
[2022-12-17] MEDS: SERTRALINE HCL 25 MG TABLET GT SCH (09:12)
[2022-12-17] MEDS: levETIRAcetam 500 MG/5 ML LIQUID UDC GT SCH ×2 (09:12→20:28)
[2022-12-17] MEDS: DIGOXIN 125 MCG TABLET GT SCH (09:12)
[2022-12-17] MEDS: ACETAMINOPHEN 650 MG/20.3 ML LIQUID UDC GT SCH ×2 (09:12→20:28)
[2022-12-17] MEDS: FUROSEMIDE 20 MG TABLET GT SCH (09:12)
[2022-12-17] MEDS: COD LIVER OIL/ZINC OXIDE OINT 113 GM TUBE TP SCH (09:13)
[2022-12-17] MEDS: REMEDY ESSENTIAL ZINC PASTE 113 GM TP SCH ×2 (09:13→20:29)
[2022-12-17] MEDS: CLOTRIMAZOLE 1% CREAM 30 GM TUBE TP SCH (09:13)
[2022-12-17 20:00] VITALS: TEMP 98.8
[2022-12-17] MEDS: ACIDOPHILUS/BULGARICUS CHEW TAB GT SCH (20:28)
[2022-12-17] MEDS: ASCORBIC ACID 500 MG TABLET GT SCH (20:29)
[2022-12-17] MEDS: NORMAL SALINE NASAL 45 ML BOTTLE NS SCH (20:29)
[2022-12-17] MEDS: CLOTRIMAZOLE 1% CREAM 30 GM TUBE TOP SCH (22:45)
[2022-12-17] MEDS ORDERED: CLOTRIMAZOLE 1% CREAM 30 GM TUBE TOP PRN (22:45)
[2022-12-17] MEDS: COD LIVER OIL/ZINC OXIDE OINT 113 GM TUBE TOP SCH (22:45)
[2022-12-17] MEDS ORDERED: COD LIVER OIL/ZINC OXIDE OINT 113 GM TUBE TOP PRN (22:45)
[2022-12-18] MEDS: GLUCERNA 1.2 1000ML LIQUID GT PRN (04:00)
[2022-12-18] MEDS: PROTEIN SUPPLEMENT (PROSTAT) 30 ML LIQUID GT SCH ×3 (05:24→22:00)
[2022-12-18] MEDS: FAMOTIDINE 20 MG TABLET GT SCH ×2 (05:24→18:21)
[2022-12-18] MEDS: ARGININE/GLUTAMINE/CALCIUM BMB 1 EACH POWD.PACK GT SCH ×2 (05:24→18:21)
[2022-12-18] MEDS: POLYVINYL ALCOHOL OPHT DROPS 15 ML BOTTLE EACHEYE SCH ×3 (05:24→22:00)
[2022-12-18 07:36] VITALS: TEMP 97.9
[2022-12-18] MEDS: ACETAMINOPHEN 650 MG/20.3 ML LIQUID UDC GT SCH ×2 (08:14→20:54)
[2022-12-18] MEDS: levETIRAcetam 500 MG/5 ML LIQUID UDC GT SCH ×2 (08:15→20:54)
[2022-12-18] MEDS: DIGOXIN 125 MCG TABLET GT SCH (08:16)
[2022-12-18] MEDS: POTASSIUM CHLORIDE 40 MEQ/30 ML LIQUID UDC GT SCH (08:16)
[2022-12-18] MEDS: FUROSEMIDE 20 MG TABLET GT SCH (08:16)
[2022-12-18] MEDS: CLOTRIMAZOLE 1% CREAM 30 GM TUBE TOP SCH ×2 (08:17→20:54)
[2022-12-18] MEDS: SERTRALINE HCL 25 MG TABLET GT SCH (08:17)
[2022-12-18] MEDS: COD LIVER OIL/ZINC OXIDE OINT 113 GM TUBE TOP SCH ×2 (08:17→20:54)
[2022-12-18] MEDS: REMEDY ESSENTIAL ZINC PASTE 113 GM TP SCH ×2 (08:17→20:54)
[2022-12-18] MEDS: HYDROGEN PEROXIDE 3% 118 ML BOTTLE TP SCH ×2 (09:18→19:07)
[2022-12-18] MEDS: ASCORBIC ACID 500 MG TABLET GT SCH (20:54)
[2022-12-18] MEDS: NORMAL SALINE NASAL 45 ML BOTTLE NS SCH (20:54)
[2022-12-18] MEDS: ACIDOPHILUS/BULGARICUS CHEW TAB GT SCH (20:54)
[2022-12-19] MEDS: FAMOTIDINE 20 MG TABLET GT SCH ×2 (06:12→17:01)
[2022-12-19] MEDS: ARGININE/GLUTAMINE/CALCIUM BMB 1 EACH POWD.PACK GT SCH ×2 (06:12→17:01)
[2022-12-19] MEDS: POLYVINYL ALCOHOL OPHT DROPS 15 ML BOTTLE EACHEYE SCH ×3 (06:12→22:48)
[2022-12-19] MEDS: PROTEIN SUPPLEMENT (PROSTAT) 30 ML LIQUID GT SCH ×3 (06:13→22:48)
[2022-12-19] MEDS: GLUCERNA 1.2 1000ML LIQUID GT PRN (06:44)
[2022-12-19 07:16] LABS: BASOPHILS % (AUTO) 0.7 % (0.0-2.0); EOSINOPHILS # (AUTO) 0.3 K/uL (0.0-0.7); EOSINOPHILS % (AUTO) 6.9 % (0.0-7.0); HEMATOCRIT 38.4 % (31.2-41.9); HEMOGLOBIN 12.9 g/dL (10.9-14.3); LYMPHOCYTES # (AUTO) 1.4 K/uL (0.8-4.8); LYMPHOCYTES % (AUTO) 28.5 % (20.5-51.5); MEAN CORPUSCULAR HEMOGLOBIN 30.6 uug (24.7-32.8); MEAN CORPUSCULAR HGB CONC 34 g/dL (32.3-35.6); MEAN CORPUSCULAR VOLUME 91.3 fL (75.5-95.3); MONOCYTES # (AUTO) 0.5 K/uL (0.1-1.30); MONOCYTES % (AUTO) 10.4 % (0.0-11.0); NEUTROPHILS # (AUTO) 2.6 K/uL (1.8-8.9); NEUTROPHILS % (AUTO) 53.5 % (38.5-71.5); PLATELET COUNT (AUTO) 105 K/uL (179-408); RED BLOOD CELL COUNT(AUTO) 4.21 MIL/uL (3.63-4.92); RED CELL DISTRIBUTION WIDTH 15.6 % (12.3-17.7); WHITE BLOOD COUNT (AUTO) 4.8 K/uL (3.8-11.8)
[2022-12-19 07:17] VITALS: TEMP 98.3
[2022-12-19 07:28] LABS: DIFFERENTIAL COMMENT 1
[2022-12-19] MEDS: ACETAMINOPHEN 650 MG/20.3 ML LIQUID UDC GT SCH ×2 (08:30→20:11)
[2022-12-19] MEDS: POTASSIUM CHLORIDE 40 MEQ/30 ML LIQUID UDC GT SCH (09:00)
[2022-12-19] MEDS: HYDROGEN PEROXIDE 3% 118 ML BOTTLE TP SCH ×2 (09:00→18:43)
[2022-12-19] MEDS: REMEDY ESSENTIAL ZINC PASTE 113 GM TP SCH ×2 (09:00→20:11)
[2022-12-19] MEDS: levETIRAcetam 500 MG/5 ML LIQUID UDC GT SCH ×2 (09:00→20:11)
[2022-12-19] MEDS: CLOTRIMAZOLE 1% CREAM 30 GM TUBE TOP SCH ×2 (09:00→20:11)
[2022-12-19] MEDS: DIGOXIN 125 MCG TABLET GT SCH (09:00)
[2022-12-19] MEDS: SERTRALINE HCL 25 MG TABLET GT SCH (09:00)
[2022-12-19] MEDS: COD LIVER OIL/ZINC OXIDE OINT 113 GM TUBE TOP SCH ×2 (09:00→20:11)
[2022-12-19] MEDS: FUROSEMIDE 20 MG TABLET GT SCH (09:00)
[2022-12-19 09:08] LABS: CALCIUM 9.5 mg/dL (8.5-10.1); CARBON DIOXIDE 25 mmol/L (21-32); CHLORIDE 109 mmol/L (98-107); CREATININE 0.5 mg/dL (0.6-1.3); GLUCOSE 111 mg/dL (74-106); MAGNESIUM 2.4 mg/dL (1.8-2.4); PHOSPHOROUS 3.2 mg/dL (2.5-4.9); POTASSIUM 3.5 mmol/L (3.5-5.1); SODIUM SERUM 143 mmol/L (136-145); UREA NITROGEN, BLOOD 31 mg/dL (7-18)
[2022-12-19 20:00] VITALS: TEMP 98.7
[2022-12-19 20:03] VITALS: TEMP 98.7
[2022-12-19] MEDS: NORMAL SALINE NASAL 45 ML BOTTLE NS SCH (20:11)
[2022-12-19] MEDS: ACIDOPHILUS/BULGARICUS CHEW TAB GT SCH (20:11)
[2022-12-19] MEDS: ASCORBIC ACID 500 MG TABLET GT SCH (20:11)
[2022-12-20] MEDS: PROTEIN SUPPLEMENT (PROSTAT) 30 ML LIQUID GT SCH ×3 (05:33→22:20)
[2022-12-20] MEDS: POLYVINYL ALCOHOL OPHT DROPS 15 ML BOTTLE EACHEYE SCH ×3 (05:33→22:20)
[2022-12-20] MEDS: FAMOTIDINE 20 MG TABLET GT SCH ×2 (05:33→18:00)
[2022-12-20] MEDS: ARGININE/GLUTAMINE/CALCIUM BMB 1 EACH POWD.PACK GT SCH ×2 (05:33→18:00)
[2022-12-20] MEDS: GLUCERNA 1.2 1000ML LIQUID GT PRN (06:35)
[2022-12-20 07:18] VITALS: TEMP 97.8
[2022-12-20] MEDS: HYDROGEN PEROXIDE 3% 118 ML BOTTLE TP SCH ×2 (07:34→19:10)
[2022-12-20] MEDS: ACETAMINOPHEN 650 MG/20.3 ML LIQUID UDC GT SCH (08:30)
[2022-12-20] MEDS: CLOTRIMAZOLE 1% CREAM 30 GM TUBE TOP SCH ×2 (09:37→20:22)
[2022-12-20] MEDS: DIGOXIN 125 MCG TABLET GT SCH (09:37)
[2022-12-20] MEDS: levETIRAcetam 500 MG/5 ML LIQUID UDC GT SCH ×2 (09:37→20:21)
[2022-12-20] MEDS: SERTRALINE HCL 25 MG TABLET GT SCH (09:37)
[2022-12-20] MEDS: FUROSEMIDE 20 MG TABLET GT SCH (09:37)
[2022-12-20] MEDS: COD LIVER OIL/ZINC OXIDE OINT 113 GM TUBE TOP SCH ×2 (09:37→20:22)
[2022-12-20] MEDS: POTASSIUM CHLORIDE 40 MEQ/30 ML LIQUID UDC GT SCH (09:37)
[2022-12-20] MEDS: REMEDY ESSENTIAL ZINC PASTE 113 GM TP SCH ×2 (09:38→20:22)
[2022-12-20 20:00] VITALS: TEMP 98.4
[2022-12-20] MEDS: ACIDOPHILUS/BULGARICUS CHEW TAB GT SCH (20:21)
[2022-12-20] MEDS: NORMAL SALINE NASAL 45 ML BOTTLE NS SCH (20:22)
[2022-12-20] MEDS: ASCORBIC ACID 500 MG TABLET GT SCH (20:22)
[2022-12-21] MEDS: FAMOTIDINE 20 MG TABLET GT SCH ×2 (05:01→17:29)
[2022-12-21] MEDS: POLYVINYL ALCOHOL OPHT DROPS 15 ML BOTTLE EACHEYE SCH ×3 (05:01→22:50)
[2022-12-21] MEDS: ARGININE/GLUTAMINE/CALCIUM BMB 1 EACH POWD.PACK GT SCH ×2 (05:01→17:28)
[2022-12-21] MEDS: PROTEIN SUPPLEMENT (PROSTAT) 30 ML LIQUID GT SCH ×3 (05:01→22:50)
[2022-12-21 07:24] VITALS: TEMP 98.1
[2022-12-21] MEDS: HYDROGEN PEROXIDE 3% 118 ML BOTTLE TP SCH ×2 (08:14→19:03)
[2022-12-21] MEDS: levETIRAcetam 500 MG/5 ML LIQUID UDC GT SCH ×2 (08:33→20:21)
[2022-12-21] MEDS: DIGOXIN 125 MCG TABLET GT SCH (08:38)
[2022-12-21] MEDS: FUROSEMIDE 20 MG TABLET GT SCH (08:38)
[2022-12-21] MEDS: SERTRALINE HCL 25 MG TABLET GT SCH (08:39)
[2022-12-21] MEDS: POTASSIUM CHLORIDE 40 MEQ/30 ML LIQUID UDC GT SCH (08:39)
[2022-12-21] MEDS: CLOTRIMAZOLE 1% CREAM 30 GM TUBE TOP SCH ×2 (08:41→20:21)
[2022-12-21] MEDS: COD LIVER OIL/ZINC OXIDE OINT 113 GM TUBE TOP SCH ×2 (08:41→20:21)
[2022-12-21] MEDS: REMEDY ESSENTIAL ZINC PASTE 113 GM TP SCH ×2 (08:42→20:21)
[2022-12-21] MEDS ORDERED: POTASSIUM CHLORIDE 40 MEQ/30 ML LIQUID UDC GT ONE (18:00)
[2022-12-21] MEDS: GLUCERNA 1.2 1000ML LIQUID GT PRN (18:31)
[2022-12-21 20:00] VITALS: TEMP 97.3
[2022-12-21] MEDS: ACIDOPHILUS/BULGARICUS CHEW TAB GT SCH (20:21)
[2022-12-21] MEDS: NORMAL SALINE NASAL 45 ML BOTTLE NS SCH (20:21)
[2022-12-21] MEDS: ASCORBIC ACID 500 MG TABLET GT SCH (20:21)
[2022-12-21 22:54] VITALS: TEMP 97.3
[2022-12-22] MEDS: PROTEIN SUPPLEMENT (PROSTAT) 30 ML LIQUID GT SCH ×3 (05:35→22:09)
[2022-12-22] MEDS: POLYVINYL ALCOHOL OPHT DROPS 15 ML BOTTLE EACHEYE SCH ×3 (05:35→22:09)
[2022-12-22] MEDS: ARGININE/GLUTAMINE/CALCIUM BMB 1 EACH POWD.PACK GT SCH ×2 (05:35→17:08)
[2022-12-22] MEDS: FAMOTIDINE 20 MG TABLET GT SCH ×2 (05:35→17:08)
[2022-12-22 08:00] VITALS: TEMP 97.8
[2022-12-22] MEDS: levETIRAcetam 500 MG/5 ML LIQUID UDC GT SCH ×2 (08:22→20:08)
[2022-12-22] MEDS: DIGOXIN 125 MCG TABLET GT SCH (08:24)
[2022-12-22] MEDS: FUROSEMIDE 20 MG TABLET GT SCH (08:25)
[2022-12-22] MEDS: POTASSIUM CHLORIDE 40 MEQ/30 ML LIQUID UDC GT SCH (08:25)
[2022-12-22] MEDS: COD LIVER OIL/ZINC OXIDE OINT 113 GM TUBE TOP SCH ×2 (08:27→20:10)
[2022-12-22] MEDS: SERTRALINE HCL 25 MG TABLET GT SCH (08:27)
[2022-12-22] MEDS: CLOTRIMAZOLE 1% CREAM 30 GM TUBE TOP SCH ×2 (08:27→20:10)
[2022-12-22] MEDS: REMEDY ESSENTIAL ZINC PASTE 113 GM TP SCH ×2 (08:27→20:10)
[2022-12-22] MEDS: HYDROGEN PEROXIDE 3% 118 ML BOTTLE TP SCH ×2 (09:00→19:10)
[2022-12-22 17:00] VITALS: TEMP 103.1
[2022-12-22 18:18] LABS: *BILIRUBIN,URIN NEGATIVE (NEGATIVE); *BLOOD, URINE 1+ (NEGATIVE); *CLARITY,URINE CLEAR (CLEAR); *COLOR,URINE YELLOW (YELLOW); *KETONES,URINE NEGATIVE (NEGATIVE); *PROTEIN,URINE 2+ (NEGATIVE); LEUKOCYTE ESTERASE ,URINE NEGATIVE (NEGATIVE); NITRITE, URINE NEGATIVE (NEGATIVE); PH,URINE 5.5 (5.0-8.0); UGLUCOSE NEGATIVE (NEGATIVE)
[2022-12-22 18:29] LABS: BACTERIA,URINE FEW /HPF (NONE SEEN); RBC,URINE 0-3 /HPF (0-3); SQUAMOUS EPITHELIAL CELL,UR FEW /HPF (NONE SEEN); WBC,URINE NONE SEEN /HPF (0-3)
[2022-12-22 19:03] LABS: BASOPHILS % (AUTO) 0.4 % (0.0-2.0); DIFFERENTIAL COMMENT 0; EOSINOPHILS # (AUTO) 0.1 K/uL (0.0-0.7); EOSINOPHILS % (AUTO) 1.8 % (0.0-7.0); HEMATOCRIT 42.1 % (31.2-41.9); HEMOGLOBIN 13.9 g/dL (10.9-14.3); LYMPHOCYTES # (AUTO) 0.8 K/uL (0.8-4.8); MEAN CORPUSCULAR HEMOGLOBIN 30.4 uug (24.7-32.8); MEAN CORPUSCULAR HGB CONC 33 g/dL (32.3-35.6); NEUTROPHILS # (AUTO) 4.4 K/uL (1.8-8.9); NEUTROPHILS % (AUTO) 69.8 % (38.5-71.5); PLATELET COUNT (AUTO) 101 K/uL (179-408); RED BLOOD CELL COUNT(AUTO) 4.58 MIL/uL (3.63-4.92); RED CELL DISTRIBUTION WIDTH 15.9 % (12.3-17.7); WHITE BLOOD COUNT (AUTO) 6.3 K/uL (3.8-11.8)
[2022-12-22 19:09] LABS: ALBUMIN 3.3 g/dL (3.4-5.0); BILIRUBIN,TOTAL 0.7 mg/dL (0.2-1.0); C-REACTIVE PROTEIN 6.4 mg/dL (0.0-0.9); CALCIUM 9.5 mg/dL (8.5-10.1); CREATININE 0.8 mg/dL (0.6-1.3); MAGNESIUM 2.5 mg/dL (1.8-2.4); PHOSPHOROUS 2.9 mg/dL (2.5-4.9); POTASSIUM 4.4 mmol/L (3.5-5.1); TOTAL PROTEIN, SERUM 8.2 g/dL (6.4-8.2)
[2022-12-22 19:26] LABS: ANISOCYTOSIS 1+; EOSINOPHILS % (MANUAL) 3 % (0-8); LYMPHOCYTES % (MANUAL) 16 % (20-40); MONOCYTES % (MANUAL) 14 % (2-10); NEUTROPHILS % (MANUAL) 67 % (42-75); PLATELET ESTIMATE MARKED DECREASED
[2022-12-22 20:00] VITALS: TEMP 98.6
[2022-12-22] MEDS: ASCORBIC ACID 500 MG TABLET GT SCH (20:08)
[2022-12-22] MEDS: ACIDOPHILUS/BULGARICUS CHEW TAB GT SCH (20:08)
[2022-12-22] MEDS: NORMAL SALINE NASAL 45 ML BOTTLE NS SCH (20:10)
[2022-12-22] MEDS: CEFEPIME HCL 1 G in IV DEXTROSE 5% 50 ML IV SCH (21:00)
[2022-12-22] MEDS: GLUCERNA 1.2 1000ML LIQUID GT PRN (22:09)
[2022-12-23] MEDS: ARGININE/GLUTAMINE/CALCIUM BMB 1 EACH POWD.PACK GT SCH ×2 (05:23→17:48)
[2022-12-23] MEDS: PROTEIN SUPPLEMENT (PROSTAT) 30 ML LIQUID GT SCH ×3 (05:23→22:02)
[2022-12-23] MEDS: POLYVINYL ALCOHOL OPHT DROPS 15 ML BOTTLE EACHEYE SCH ×3 (05:23→22:01)
[2022-12-23] MEDS: FAMOTIDINE 20 MG TABLET GT SCH ×2 (05:23→17:48)
[2022-12-23] MEDS: HYDROGEN PEROXIDE 3% 118 ML BOTTLE TP SCH ×2 (07:51→19:08)
[2022-12-23 08:00] VITALS: TEMP 97.6
[2022-12-23] MEDS: CEFEPIME HCL 1 G in IV DEXTROSE 5% 50 ML IV SCH ×2 (08:18→21:00)
[2022-12-23] MEDS ORDERED: CEFEPIME HCL 1 G in IV DEXTROSE 5% 50 ML IV SCH (09:00)
[2022-12-23] MEDS: levETIRAcetam 500 MG/5 ML LIQUID UDC GT SCH ×2 (09:52→21:00)
[2022-12-23] MEDS: SERTRALINE HCL 25 MG TABLET GT SCH (09:54)
[2022-12-23] MEDS: DIGOXIN 125 MCG TABLET GT SCH (09:54)
[2022-12-23] MEDS: POTASSIUM CHLORIDE 40 MEQ/30 ML LIQUID UDC GT SCH (09:54)
[2022-12-23] MEDS: COD LIVER OIL/ZINC OXIDE OINT 113 GM TUBE TOP SCH ×2 (09:54→21:00)
[2022-12-23] MEDS: FUROSEMIDE 20 MG TABLET GT SCH (09:54)
[2022-12-23] MEDS: CLOTRIMAZOLE 1% CREAM 30 GM TUBE TOP SCH ×2 (09:55→21:00)
[2022-12-23] MEDS: REMEDY ESSENTIAL ZINC PASTE 113 GM TP SCH ×2 (09:55→21:00)
[2022-12-23] MEDS ORDERED: VANCOMYCIN IV 1,000 MG in IV DEXTROSE 5% 250 ML IV SCH (10:00)
[2022-12-23 11:17] VITALS: TEMP 101
[2022-12-23] MEDS ORDERED: diphenhydrAMINE 25 MG CAP PO ONE (14:00)
[2022-12-23 14:21] VITALS: TEMP 99
[2022-12-23 14:29] LABS: BASOPHILS % (AUTO) 0.3 % (0.0-2.0); EOSINOPHILS # (AUTO) 0.1 K/uL (0.0-0.7); EOSINOPHILS % (AUTO) 0.9 % (0.0-7.0); HEMATOCRIT 39.2 % (31.2-41.9); LYMPHOCYTES # (AUTO) 1.4 K/uL (0.8-4.8); LYMPHOCYTES % (AUTO) 20.7 % (20.5-51.5); MEAN CORPUSCULAR HEMOGLOBIN 30.1 uug (24.7-32.8); MEAN CORPUSCULAR HGB CONC 33 g/dL (32.3-35.6); MONOCYTES # (AUTO) 0.7 K/uL (0.1-1.30); MONOCYTES % (AUTO) 10.1 % (0.0-11.0); NEUTROPHILS # (AUTO) 4.6 K/uL (1.8-8.9); PLATELET COUNT (AUTO) 105 K/uL (179-408); RED BLOOD CELL COUNT(AUTO) 4.31 MIL/uL (3.63-4.92); RED CELL DISTRIBUTION WIDTH 15.5 % (12.3-17.7); WHITE BLOOD COUNT (AUTO) 6.8 K/uL (3.8-11.8)
[2022-12-23 14:54] LABS: DIFFERENTIAL COMMENT 1
[2022-12-23 20:00] VITALS: TEMP 98.8
[2022-12-23] MEDS: NORMAL SALINE NASAL 45 ML BOTTLE NS SCH (21:00)
[2022-12-23] MEDS: ASCORBIC ACID 500 MG TABLET GT SCH (21:00)
[2022-12-23] MEDS: ACIDOPHILUS/BULGARICUS CHEW TAB GT SCH (21:00)
[2022-12-24] MEDS: POLYVINYL ALCOHOL OPHT DROPS 15 ML BOTTLE EACHEYE SCH ×3 (06:07→21:06)
[2022-12-24] MEDS: FAMOTIDINE 20 MG TABLET GT SCH ×2 (06:07→18:09)
[2022-12-24] MEDS: ARGININE/GLUTAMINE/CALCIUM BMB 1 EACH POWD.PACK GT SCH ×2 (06:07→18:09)
[2022-12-24] MEDS: PROTEIN SUPPLEMENT (PROSTAT) 30 ML LIQUID GT SCH ×3 (06:08→21:06)
[2022-12-24] MEDS: HYDROGEN PEROXIDE 3% 118 ML BOTTLE TP SCH ×2 (07:03→22:57)
[2022-12-24 08:00] VITALS: TEMP 97.7
[2022-12-24] MEDS: REMEDY ESSENTIAL ZINC PASTE 113 GM TP SCH ×2 (09:00→21:06)
[2022-12-24] MEDS: CEFEPIME HCL 1 G in IV DEXTROSE 5% 50 ML IV SCH ×2 (09:00→21:06)
[2022-12-24] MEDS: CLOTRIMAZOLE 1% CREAM 30 GM TUBE TOP SCH ×2 (09:00→21:06)
[2022-12-24 09:47] LABS: ALANINE AMINOTRANSFERASE 43 U/L (14-59); ALBUMIN 2.8 g/dL (3.4-5.0); ALKALINE PHOSPHATASE 154 U/L (50-136); ASPARTATE AMINOTRANSFERASE 76 U/L (15-37); BILIRUBIN,TOTAL 0.6 mg/dL (0.2-1.0); CALCIUM 9.2 mg/dL (8.5-10.1); CARBON DIOXIDE 28 mmol/L (21-32); CHLORIDE 105 mmol/L (98-107); CREATININE 0.7 mg/dL (0.6-1.3); GLUCOSE 105 mg/dL (74-106); SODIUM SERUM 140 mmol/L (136-145); TOTAL PROTEIN, SERUM 7.6 g/dL (6.4-8.2); UREA NITROGEN, BLOOD 44 mg/dL (7-18)
[2022-12-24] MEDS: levETIRAcetam 500 MG/5 ML LIQUID UDC GT SCH ×2 (09:48→21:05)
[2022-12-24] MEDS: FUROSEMIDE 20 MG TABLET GT SCH (09:49)
[2022-12-24] MEDS: DIGOXIN 125 MCG TABLET GT SCH (09:49)
[2022-12-24] MEDS: SERTRALINE HCL 25 MG TABLET GT SCH (09:50)
[2022-12-24] MEDS: COD LIVER OIL/ZINC OXIDE OINT 113 GM TUBE TOP SCH ×2 (09:50→21:06)
[2022-12-24] MEDS: POTASSIUM CHLORIDE 40 MEQ/30 ML LIQUID UDC GT SCH (09:50)
[2022-12-24 09:59] LABS: HEMATOCRIT 39.2 % (31.2-41.9); MONOCYTES # (AUTO) 0.5 K/uL (0.1-1.30); NEUTROPHILS % (AUTO) 48.9 % (38.5-71.5); WHITE BLOOD COUNT (AUTO) 4.1 K/uL (3.8-11.8)
[2022-12-24 10:44] LABS: BASOPHILS % (AUTO) 0.8 % (0.0-2.0); DIFFERENTIAL COMMENT 0; EOSINOPHILS # (AUTO) 0.4 K/uL (0.0-0.7); EOSINOPHILS % (AUTO) 8.9 % (0.0-7.0); HEMOGLOBIN 12.9 g/dL (10.9-14.3); LYMPHOCYTES # (AUTO) 1.2 K/uL (0.8-4.8); LYMPHOCYTES % (AUTO) 29.3 % (20.5-51.5); MEAN CORPUSCULAR HEMOGLOBIN 30.1 uug (24.7-32.8); MEAN CORPUSCULAR HGB CONC 33 g/dL (32.3-35.6); MEAN CORPUSCULAR VOLUME 91.3 fL (75.5-95.3); MONOCYTES % (AUTO) 12.1 % (0.0-11.0); PLATELET COUNT (AUTO) 96 K/uL (179-408); RED BLOOD CELL COUNT(AUTO) 4.29 MIL/uL (3.63-4.92)
[2022-12-24 11:18] LABS: ALBUMIN 2.8 g/dL (3.4-5.0); BILIRUBIN,DIRECT 0.3 mg/dL (0.0-0.2); BILIRUBIN,TOTAL 0.6 mg/dL (0.2-1.0); TOTAL PROTEIN, SERUM 7.6 g/dL (6.4-8.2)
[2022-12-24 17:00] VITALS: TEMP 97.7
[2022-12-24 20:00] VITALS: TEMP 98
[2022-12-24] MEDS: NIRMATRELVIR PO SCH (20:00)
[2022-12-24] MEDS: RITONAVIR PO SCH (20:00)
[2022-12-24] MEDS: ACIDOPHILUS/BULGARICUS CHEW TAB GT SCH (21:05)
[2022-12-24] MEDS: ASCORBIC ACID 500 MG TABLET GT SCH (21:05)
[2022-12-24] MEDS: NORMAL SALINE NASAL 45 ML BOTTLE NS SCH (21:06)
[2022-12-25] MEDS: FAMOTIDINE 20 MG TABLET GT SCH ×2 (05:09→17:46)
[2022-12-25] MEDS: PROTEIN SUPPLEMENT (PROSTAT) 30 ML LIQUID GT SCH ×3 (05:09→22:20)
[2022-12-25] MEDS: ARGININE/GLUTAMINE/CALCIUM BMB 1 EACH POWD.PACK GT SCH ×2 (05:09→17:46)
[2022-12-25] MEDS: POLYVINYL ALCOHOL OPHT DROPS 15 ML BOTTLE EACHEYE SCH ×3 (05:09→22:20)
[2022-12-25 06:54] LABS: BILIRUBIN,TOTAL 0.6 mg/dL (0.2-1.0); C-REACTIVE PROTEIN 6.7 mg/dL (0.0-0.9); CALCIUM 8.9 mg/dL (8.5-10.1); CREATININE 0.7 mg/dL (0.6-1.3); POTASSIUM 4.3 mmol/L (3.5-5.1); TOTAL PROTEIN, SERUM 7.7 g/dL (6.4-8.2)
[2022-12-25] MEDS: HYDROGEN PEROXIDE 3% 118 ML BOTTLE TP SCH ×2 (08:34→21:06)
[2022-12-25] MEDS: NIRMATRELVIR PO SCH ×2 (09:37→17:46)
[2022-12-25] MEDS: DIGOXIN 125 MCG TABLET GT SCH (09:37)
[2022-12-25] MEDS: RITONAVIR PO SCH ×2 (09:37→17:46)
[2022-12-25] MEDS: CLOTRIMAZOLE 1% CREAM 30 GM TUBE TOP SCH ×2 (09:37→20:22)
[2022-12-25] MEDS: SERTRALINE HCL 25 MG TABLET GT SCH (09:37)
[2022-12-25] MEDS: FUROSEMIDE 20 MG TABLET GT SCH (09:37)
[2022-12-25] MEDS: CEFEPIME HCL 1 G in IV DEXTROSE 5% 50 ML IV SCH ×2 (09:37→20:21)
[2022-12-25] MEDS: COD LIVER OIL/ZINC OXIDE OINT 113 GM TUBE TOP SCH ×2 (09:37→20:22)
[2022-12-25] MEDS: POTASSIUM CHLORIDE 40 MEQ/30 ML LIQUID UDC GT SCH (09:37)
[2022-12-25] MEDS: levETIRAcetam 500 MG/5 ML LIQUID UDC GT SCH ×2 (09:37→20:20)
[2022-12-25] MEDS: REMEDY ESSENTIAL ZINC PASTE 113 GM TP SCH ×2 (09:38→20:22)
[2022-12-25 11:45] VITALS: TEMP 98
[2022-12-25] MEDS: ACIDOPHILUS/BULGARICUS CHEW TAB GT SCH (20:20)
[2022-12-25] MEDS: NORMAL SALINE NASAL 45 ML BOTTLE NS SCH (20:21)
[2022-12-25] MEDS: ASCORBIC ACID 500 MG TABLET GT SCH (20:21)
[2022-12-25 21:31] VITALS: TEMP 98
[2022-12-26] MEDS: POLYVINYL ALCOHOL OPHT DROPS 15 ML BOTTLE EACHEYE SCH ×3 (05:03→21:26)
[2022-12-26] MEDS: PROTEIN SUPPLEMENT (PROSTAT) 30 ML LIQUID GT SCH ×3 (05:03→21:26)
[2022-12-26] MEDS: FAMOTIDINE 20 MG TABLET GT SCH ×2 (05:03→18:35)
[2022-12-26] MEDS: ARGININE/GLUTAMINE/CALCIUM BMB 1 EACH POWD.PACK GT SCH ×2 (05:03→18:35)
[2022-12-26] MEDS: HYDROGEN PEROXIDE 3% 118 ML BOTTLE TP SCH ×2 (08:00→19:02)
[2022-12-26] MEDS: CEFEPIME HCL 1 G in IV DEXTROSE 5% 50 ML IV SCH ×2 (09:00→21:23)
[2022-12-26] MEDS: levETIRAcetam 500 MG/5 ML LIQUID UDC GT SCH ×2 (09:37→21:22)
[2022-12-26] MEDS: COD LIVER OIL/ZINC OXIDE OINT 113 GM TUBE TOP SCH ×2 (09:38→21:25)
[2022-12-26] MEDS: POTASSIUM CHLORIDE 40 MEQ/30 ML LIQUID UDC GT SCH (09:38)
[2022-12-26] MEDS: REMEDY ESSENTIAL ZINC PASTE 113 GM TP SCH ×2 (09:38→21:26)
[2022-12-26] MEDS: SERTRALINE HCL 25 MG TABLET GT SCH (09:38)
[2022-12-26] MEDS: CLOTRIMAZOLE 1% CREAM 30 GM TUBE TOP SCH ×2 (09:38→21:26)
[2022-12-26] MEDS: FUROSEMIDE 20 MG TABLET GT SCH (09:38)
[2022-12-26] MEDS: DIGOXIN 125 MCG TABLET GT SCH (09:38)
[2022-12-26] MEDS: RITONAVIR PO SCH ×2 (09:39→18:00)
[2022-12-26] MEDS: NIRMATRELVIR PO SCH ×2 (09:39→18:00)
[2022-12-26 11:30] VITALS: TEMP 97.3
[2022-12-26 20:41] VITALS: TEMP 98.7
[2022-12-26] MEDS: ACIDOPHILUS/BULGARICUS CHEW TAB GT SCH (21:22)
[2022-12-26] MEDS: ASCORBIC ACID 500 MG TABLET GT SCH (21:22)
[2022-12-26] MEDS: NORMAL SALINE NASAL 45 ML BOTTLE NS SCH (21:25)
[2022-12-27] MEDS: ARGININE/GLUTAMINE/CALCIUM BMB 1 EACH POWD.PACK GT SCH ×2 (05:22→16:32)
[2022-12-27] MEDS: PROTEIN SUPPLEMENT (PROSTAT) 30 ML LIQUID GT SCH ×3 (05:22→22:26)
[2022-12-27] MEDS: FAMOTIDINE 20 MG TABLET GT SCH ×2 (05:22→18:50)
[2022-12-27] MEDS: POLYVINYL ALCOHOL OPHT DROPS 15 ML BOTTLE EACHEYE SCH ×3 (05:22→22:26)
[2022-12-27] MEDS: HYDROGEN PEROXIDE 3% 118 ML BOTTLE TP SCH ×2 (07:07→19:07)
[2022-12-27] MEDS: CLOTRIMAZOLE 1% CREAM 30 GM TUBE TOP SCH ×2 (09:00→20:12)
[2022-12-27] MEDS: CEFEPIME HCL 1 G in IV DEXTROSE 5% 50 ML IV SCH (09:00)
[2022-12-27] MEDS: REMEDY ESSENTIAL ZINC PASTE 113 GM TP SCH ×2 (09:00→20:12)
[2022-12-27] MEDS: COD LIVER OIL/ZINC OXIDE OINT 113 GM TUBE TOP SCH ×2 (09:00→20:12)
[2022-12-27] MEDS: DIGOXIN 125 MCG TABLET GT SCH (09:00)
[2022-12-27] MEDS: RITONAVIR PO SCH ×2 (09:59→16:32)
[2022-12-27] MEDS: POTASSIUM CHLORIDE 40 MEQ/30 ML LIQUID UDC GT SCH (09:59)
[2022-12-27] MEDS: NIRMATRELVIR PO SCH ×2 (09:59→16:32)
[2022-12-27] MEDS: levETIRAcetam 500 MG/5 ML LIQUID UDC GT SCH ×2 (09:59→20:12)
[2022-12-27] MEDS: SERTRALINE HCL 25 MG TABLET GT SCH (09:59)
[2022-12-27] MEDS: FUROSEMIDE 20 MG TABLET GT SCH (09:59)
[2022-12-27 11:32] VITALS: TEMP 97.3
[2022-12-27] MEDS: NORMAL SALINE NASAL 45 ML BOTTLE NS SCH (20:12)
[2022-12-27] MEDS: ASCORBIC ACID 500 MG TABLET GT SCH (20:12)
[2022-12-27] MEDS: ACIDOPHILUS/BULGARICUS CHEW TAB GT SCH (20:12)
[2022-12-27 20:41] VITALS: TEMP 98.8
[2022-12-28] MEDS: FAMOTIDINE 20 MG TABLET GT SCH ×2 (05:02→18:07)
[2022-12-28] MEDS: ARGININE/GLUTAMINE/CALCIUM BMB 1 EACH POWD.PACK GT SCH ×2 (05:02→18:07)
[2022-12-28] MEDS: POLYVINYL ALCOHOL OPHT DROPS 15 ML BOTTLE EACHEYE SCH ×3 (05:02→21:49)
[2022-12-28] MEDS: PROTEIN SUPPLEMENT (PROSTAT) 30 ML LIQUID GT SCH ×3 (05:02→21:49)
[2022-12-28 08:00] VITALS: TEMP 96.9
[2022-12-28] MEDS: HYDROGEN PEROXIDE 3% 118 ML BOTTLE TP SCH ×2 (09:00→19:02)
[2022-12-28] MEDS: FUROSEMIDE 20 MG TABLET GT SCH (09:49)
[2022-12-28] MEDS: CLOTRIMAZOLE 1% CREAM 30 GM TUBE TOP SCH ×2 (09:49→20:34)
[2022-12-28] MEDS: COD LIVER OIL/ZINC OXIDE OINT 113 GM TUBE TOP SCH ×2 (09:49→20:34)
[2022-12-28] MEDS: REMEDY ESSENTIAL ZINC PASTE 113 GM TP SCH ×2 (09:49→20:34)
[2022-12-28] MEDS: levETIRAcetam 500 MG/5 ML LIQUID UDC GT SCH ×2 (09:49→20:34)
[2022-12-28] MEDS: DIGOXIN 125 MCG TABLET GT SCH (09:49)
[2022-12-28] MEDS: POTASSIUM CHLORIDE 40 MEQ/30 ML LIQUID UDC GT SCH (09:49)
[2022-12-28] MEDS: SERTRALINE HCL 25 MG TABLET GT SCH (09:49)
[2022-12-28] MEDS: NIRMATRELVIR PO SCH ×2 (09:52→17:00)
[2022-12-28] MEDS: RITONAVIR PO SCH ×2 (09:52→17:00)
[2022-12-28] MEDS: ACIDOPHILUS/BULGARICUS CHEW TAB GT SCH (20:34)
[2022-12-28] MEDS: NORMAL SALINE NASAL 45 ML BOTTLE NS SCH (20:34)
[2022-12-28] MEDS: ASCORBIC ACID 500 MG TABLET GT SCH (20:34)
[2022-12-28 21:43] VITALS: TEMP 98.1
[2022-12-28] MEDS: GLUCERNA 1.2 1000ML LIQUID GT PRN (21:49)
[2022-12-29] MEDS: ARGININE/GLUTAMINE/CALCIUM BMB 1 EACH POWD.PACK GT SCH ×2 (05:05→17:04)
[2022-12-29] MEDS: POLYVINYL ALCOHOL OPHT DROPS 15 ML BOTTLE EACHEYE SCH ×3 (05:05→22:21)
[2022-12-29] MEDS: FAMOTIDINE 20 MG TABLET GT SCH ×2 (05:05→17:04)
[2022-12-29] MEDS: PROTEIN SUPPLEMENT (PROSTAT) 30 ML LIQUID GT SCH ×3 (05:05→22:21)
[2022-12-29] MEDS: HYDROGEN PEROXIDE 3% 118 ML BOTTLE TP SCH ×2 (07:07→19:20)
[2022-12-29 08:00] VITALS: TEMP 97.6
[2022-12-29] MEDS: DIGOXIN 125 MCG TABLET GT SCH (08:14)
[2022-12-29] MEDS: FUROSEMIDE 20 MG TABLET GT SCH (08:14)
[2022-12-29] MEDS: levETIRAcetam 500 MG/5 ML LIQUID UDC GT SCH ×2 (08:14→20:08)
[2022-12-29] MEDS: SERTRALINE HCL 25 MG TABLET GT SCH (08:15)
[2022-12-29] MEDS: POTASSIUM CHLORIDE 40 MEQ/30 ML LIQUID UDC GT SCH (08:15)
[2022-12-29] MEDS: RITONAVIR PO SCH (08:15)
[2022-12-29] MEDS: NIRMATRELVIR PO SCH (08:15)
[2022-12-29] MEDS: CLOTRIMAZOLE 1% CREAM 30 GM TUBE TOP SCH ×2 (08:16→20:08)
[2022-12-29] MEDS: COD LIVER OIL/ZINC OXIDE OINT 113 GM TUBE TOP SCH ×2 (08:16→20:08)
[2022-12-29] MEDS: REMEDY ESSENTIAL ZINC PASTE 113 GM TP SCH ×2 (08:16→20:08)
[2022-12-29 20:00] VITALS: TEMP 97.6
[2022-12-29] MEDS: ACIDOPHILUS/BULGARICUS CHEW TAB GT SCH (20:07)
[2022-12-29] MEDS: ASCORBIC ACID 500 MG TABLET GT SCH (20:08)
[2022-12-29] MEDS: NORMAL SALINE NASAL 45 ML BOTTLE NS SCH (20:08)
[2022-12-30] MEDS: PROTEIN SUPPLEMENT (PROSTAT) 30 ML LIQUID GT SCH ×3 (05:09→22:00)
[2022-12-30] MEDS: FAMOTIDINE 20 MG TABLET GT SCH ×2 (05:09→17:36)
[2022-12-30] MEDS: POLYVINYL ALCOHOL OPHT DROPS 15 ML BOTTLE EACHEYE SCH ×3 (05:09→22:00)
[2022-12-30] MEDS: ARGININE/GLUTAMINE/CALCIUM BMB 1 EACH POWD.PACK GT SCH ×2 (05:09→17:36)
[2022-12-30] MEDS: GLUCERNA 1.2 1000ML LIQUID GT PRN (05:10)
[2022-12-30] MEDS: HYDROGEN PEROXIDE 3% 118 ML BOTTLE TP SCH ×2 (07:03→19:06)
[2022-12-30 08:00] VITALS: TEMP 97.5
[2022-12-30] MEDS: levETIRAcetam 500 MG/5 ML LIQUID UDC GT SCH ×2 (09:21→20:39)
[2022-12-30] MEDS: DIGOXIN 125 MCG TABLET GT SCH (09:24)
[2022-12-30] MEDS: COD LIVER OIL/ZINC OXIDE OINT 113 GM TUBE TOP SCH ×2 (09:24→20:39)
[2022-12-30] MEDS: POTASSIUM CHLORIDE 40 MEQ/30 ML LIQUID UDC GT SCH (09:24)
[2022-12-30] MEDS: FUROSEMIDE 20 MG TABLET GT SCH (09:24)
[2022-12-30] MEDS: CLOTRIMAZOLE 1% CREAM 30 GM TUBE TOP SCH ×2 (09:24→20:39)
[2022-12-30] MEDS: REMEDY ESSENTIAL ZINC PASTE 113 GM TP SCH ×2 (09:24→20:39)
[2022-12-30] MEDS: SERTRALINE HCL 25 MG TABLET GT SCH (09:24)
[2022-12-30 20:00] VITALS: TEMP 96.9
[2022-12-30] MEDS: ACIDOPHILUS/BULGARICUS CHEW TAB GT SCH (20:39)
[2022-12-30] MEDS: NORMAL SALINE NASAL 45 ML BOTTLE NS SCH (20:39)
[2022-12-30] MEDS: ASCORBIC ACID 500 MG TABLET GT SCH (20:39)
[2022-12-31] MEDS: PROTEIN SUPPLEMENT (PROSTAT) 30 ML LIQUID GT SCH ×3 (06:32→22:00)
[2022-12-31] MEDS: POLYVINYL ALCOHOL OPHT DROPS 15 ML BOTTLE EACHEYE SCH ×3 (06:32→22:00)
[2022-12-31] MEDS: FAMOTIDINE 20 MG TABLET GT SCH ×2 (06:32→18:26)
[2022-12-31] MEDS: ARGININE/GLUTAMINE/CALCIUM BMB 1 EACH POWD.PACK GT SCH ×2 (06:32→18:26)
[2022-12-31 07:44] VITALS: TEMP 97.3
[2022-12-31] MEDS: levETIRAcetam 500 MG/5 ML LIQUID UDC GT SCH ×2 (08:44→20:48)
[2022-12-31] MEDS: FUROSEMIDE 20 MG TABLET GT SCH (08:44)
[2022-12-31] MEDS: POTASSIUM CHLORIDE 40 MEQ/30 ML LIQUID UDC GT SCH (08:44)
[2022-12-31] MEDS: COD LIVER OIL/ZINC OXIDE OINT 113 GM TUBE TOP SCH ×2 (08:44→20:49)
[2022-12-31] MEDS: DIGOXIN 125 MCG TABLET GT SCH (08:44)
[2022-12-31] MEDS: REMEDY ESSENTIAL ZINC PASTE 113 GM TP SCH ×2 (08:44→20:49)
[2022-12-31] MEDS: SERTRALINE HCL 25 MG TABLET GT SCH (08:44)
[2022-12-31] MEDS: CLOTRIMAZOLE 1% CREAM 30 GM TUBE TOP SCH ×2 (08:44→20:49)
[2022-12-31] MEDS: HYDROGEN PEROXIDE 3% 118 ML BOTTLE TP SCH ×2 (09:00→19:05)
[2022-12-31 20:00] VITALS: TEMP 97.9
[2022-12-31] MEDS: ACIDOPHILUS/BULGARICUS CHEW TAB GT SCH (20:48)
[2022-12-31] MEDS: ASCORBIC ACID 500 MG TABLET GT SCH (20:48)
[2022-12-31] MEDS: NORMAL SALINE NASAL 45 ML BOTTLE NS SCH (20:48)
[2022-12-31] MEDS: ACETAMINOPHEN 650 MG/20 ML UDC- SA PATIENTS-PAIN ONLY GT PRN (21:28)
[2023-01-01] MEDS: ARGININE/GLUTAMINE/CALCIUM BMB 1 EACH POWD.PACK GT SCH ×2 (05:48→17:35)
[2023-01-01] MEDS: POLYVINYL ALCOHOL OPHT DROPS 15 ML BOTTLE EACHEYE SCH ×3 (05:48→21:28)
[2023-01-01] MEDS: FAMOTIDINE 20 MG TABLET GT SCH ×2 (05:48→17:35)
[2023-01-01] MEDS: PROTEIN SUPPLEMENT (PROSTAT) 30 ML LIQUID GT SCH ×3 (05:48→21:28)
[2023-01-01 07:52] VITALS: TEMP 98.2
[2023-01-01] MEDS: levETIRAcetam 500 MG/5 ML LIQUID UDC GT SCH ×2 (08:42→21:27)
[2023-01-01] MEDS: DIGOXIN 125 MCG TABLET GT SCH (08:45)
[2023-01-01] MEDS: FUROSEMIDE 20 MG TABLET GT SCH (08:46)
[2023-01-01] MEDS: HYDROGEN PEROXIDE 3% 118 ML BOTTLE TP SCH ×2 (08:48→19:02)
[2023-01-01] MEDS: POTASSIUM CHLORIDE 40 MEQ/30 ML LIQUID UDC GT SCH (08:48)
[2023-01-01] MEDS: COD LIVER OIL/ZINC OXIDE OINT 113 GM TUBE TOP SCH ×2 (08:49→21:27)
[2023-01-01] MEDS: CLOTRIMAZOLE 1% CREAM 30 GM TUBE TOP SCH ×2 (08:49→21:27)
[2023-01-01] MEDS: REMEDY ESSENTIAL ZINC PASTE 113 GM TP SCH ×2 (08:49→21:28)
[2023-01-01] MEDS: SERTRALINE HCL 25 MG TABLET GT SCH (08:49)
[2023-01-01 20:54] VITALS: TEMP 98.1
[2023-01-01] MEDS: NORMAL SALINE NASAL 45 ML BOTTLE NS SCH (21:27)
[2023-01-01] MEDS: ASCORBIC ACID 500 MG TABLET GT SCH (21:27)
[2023-01-01] MEDS: ACIDOPHILUS/BULGARICUS CHEW TAB GT SCH (21:27)
[2023-01-02] MEDS: ARGININE/GLUTAMINE/CALCIUM BMB 1 EACH POWD.PACK GT SCH ×2 (05:32→17:21)
[2023-01-02] MEDS: FAMOTIDINE 20 MG TABLET GT SCH ×2 (05:32→17:21)
[2023-01-02] MEDS: PROTEIN SUPPLEMENT (PROSTAT) 30 ML LIQUID GT SCH ×3 (05:32→22:00)
[2023-01-02] MEDS: POLYVINYL ALCOHOL OPHT DROPS 15 ML BOTTLE EACHEYE SCH ×3 (05:32→22:00)
[2023-01-02 07:22] VITALS: TEMP 98.9
[2023-01-02 07:34] LABS: BASOPHILS % (AUTO) 0.7 % (0.0-2.0); EOSINOPHILS # (AUTO) 0.4 K/uL (0.0-0.7); EOSINOPHILS % (AUTO) 7.2 % (0.0-7.0); HEMATOCRIT 37.2 % (31.2-41.9); HEMOGLOBIN 12.3 g/dL (10.9-14.3); LYMPHOCYTES # (AUTO) 1.3 K/uL (0.8-4.8); LYMPHOCYTES % (AUTO) 24.9 % (20.5-51.5); MEAN CORPUSCULAR HEMOGLOBIN 30.3 uug (24.7-32.8); MEAN CORPUSCULAR HGB CONC 33 g/dL (32.3-35.6); MEAN CORPUSCULAR VOLUME 91.5 fL (75.5-95.3); MONOCYTES # (AUTO) 0.6 K/uL (0.1-1.30); MONOCYTES % (AUTO) 11.2 % (0.0-11.0); PLATELET COUNT (AUTO) 150 K/uL (179-408); RED BLOOD CELL COUNT(AUTO) 4.06 MIL/uL (3.63-4.92); RED CELL DISTRIBUTION WIDTH 15.7 % (12.3-17.7); WHITE BLOOD COUNT (AUTO) 5.4 K/uL (3.8-11.8)
[2023-01-02 07:36] LABS: DIFFERENTIAL COMMENT 1
[2023-01-02] MEDS: COD LIVER OIL/ZINC OXIDE OINT 113 GM TUBE TOP SCH ×2 (09:00→20:14)
[2023-01-02] MEDS: SERTRALINE HCL 25 MG TABLET GT SCH (09:00)
[2023-01-02] MEDS: FUROSEMIDE 20 MG TABLET GT SCH (09:00)
[2023-01-02] MEDS: levETIRAcetam 500 MG/5 ML LIQUID UDC GT SCH ×2 (09:00→20:14)
[2023-01-02] MEDS: REMEDY ESSENTIAL ZINC PASTE 113 GM TP SCH ×2 (09:00→20:14)
[2023-01-02] MEDS: POTASSIUM CHLORIDE 40 MEQ/30 ML LIQUID UDC GT SCH (09:00)
[2023-01-02] MEDS: CLOTRIMAZOLE 1% CREAM 30 GM TUBE TOP SCH ×2 (09:00→20:14)
[2023-01-02] MEDS: DIGOXIN 125 MCG TABLET GT SCH (09:00)
[2023-01-02] MEDS: HYDROGEN PEROXIDE 3% 118 ML BOTTLE TP SCH ×2 (09:00→19:15)
[2023-01-02 09:16] LABS: ALBUMIN 2.8 g/dL (3.4-5.0); BILIRUBIN,TOTAL 0.4 mg/dL (0.2-1.0); CALCIUM 9.6 mg/dL (8.5-10.1); CREATININE 0.7 mg/dL (0.6-1.3); POTASSIUM 3.9 mmol/L (3.5-5.1); TOTAL PROTEIN, SERUM 7.5 g/dL (6.4-8.2)
[2023-01-02 09:30] LABS: C-REACTIVE PROTEIN 1.9 mg/dL (0.0-0.9)
[2023-01-02] MEDS: ACIDOPHILUS/BULGARICUS CHEW TAB GT SCH (20:13)
[2023-01-02] MEDS: ASCORBIC ACID 500 MG TABLET GT SCH (20:14)
[2023-01-02] MEDS: NORMAL SALINE NASAL 45 ML BOTTLE NS SCH (20:14)
[2023-01-02 20:33] VITALS: TEMP 99.1
[2023-01-03] MEDS: GLUCERNA 1.2 1000ML LIQUID GT PRN (05:01)
[2023-01-03] MEDS: PROTEIN SUPPLEMENT (PROSTAT) 30 ML LIQUID GT SCH ×3 (05:01→22:44)
[2023-01-03] MEDS: POLYVINYL ALCOHOL OPHT DROPS 15 ML BOTTLE EACHEYE SCH ×3 (05:01→22:44)
[2023-01-03] MEDS: FAMOTIDINE 20 MG TABLET GT SCH ×2 (05:01→17:50)
[2023-01-03] MEDS: ARGININE/GLUTAMINE/CALCIUM BMB 1 EACH POWD.PACK GT SCH ×2 (05:01→17:50)
[2023-01-03 07:21] VITALS: TEMP 98.4
[2023-01-03] MEDS: levETIRAcetam 500 MG/5 ML LIQUID UDC GT SCH ×2 (09:53→20:28)
[2023-01-03] MEDS: POTASSIUM CHLORIDE 40 MEQ/30 ML LIQUID UDC GT SCH (09:54)
[2023-01-03] MEDS: DIGOXIN 125 MCG TABLET GT SCH (09:54)
[2023-01-03] MEDS: FUROSEMIDE 20 MG TABLET GT SCH (09:54)
[2023-01-03] MEDS: REMEDY ESSENTIAL ZINC PASTE 113 GM TP SCH ×2 (09:55→20:30)
[2023-01-03] MEDS: HYDROGEN PEROXIDE 3% 118 ML BOTTLE TP SCH ×2 (09:55→22:29)
[2023-01-03] MEDS: SERTRALINE HCL 25 MG TABLET GT SCH (09:55)
[2023-01-03] MEDS: CLOTRIMAZOLE 1% CREAM 30 GM TUBE TOP SCH ×2 (09:55→20:30)
[2023-01-03] MEDS: COD LIVER OIL/ZINC OXIDE OINT 113 GM TUBE TOP SCH ×2 (09:55→20:30)
[2023-01-03] MEDS: ASCORBIC ACID 500 MG TABLET GT SCH (20:28)
[2023-01-03] MEDS: ACIDOPHILUS/BULGARICUS CHEW TAB GT SCH (20:28)
[2023-01-03] MEDS: NORMAL SALINE NASAL 45 ML BOTTLE NS SCH (20:30)
[2023-01-04] MEDS: FAMOTIDINE 20 MG TABLET GT SCH ×2 (05:12→18:04)
[2023-01-04] MEDS: ARGININE/GLUTAMINE/CALCIUM BMB 1 EACH POWD.PACK GT SCH ×2 (05:12→18:04)
[2023-01-04] MEDS: POLYVINYL ALCOHOL OPHT DROPS 15 ML BOTTLE EACHEYE SCH ×3 (05:12→21:38)
[2023-01-04] MEDS: PROTEIN SUPPLEMENT (PROSTAT) 30 ML LIQUID GT SCH ×3 (05:12→21:38)
[2023-01-04 06:06] LABS: BASOPHILS % (AUTO) 0.8 % (0.0-2.0); EOSINOPHILS # (AUTO) 0.3 K/uL (0.0-0.7); EOSINOPHILS % (AUTO) 6.5 % (0.0-7.0); HEMATOCRIT 35.5 % (31.2-41.9); HEMOGLOBIN 11.9 g/dL (10.9-14.3); LYMPHOCYTES # (AUTO) 1.2 K/uL (0.8-4.8); LYMPHOCYTES % (AUTO) 24.4 % (20.5-51.5); MEAN CORPUSCULAR HEMOGLOBIN 30.3 uug (24.7-32.8); MEAN CORPUSCULAR HGB CONC 33 g/dL (32.3-35.6); MEAN CORPUSCULAR VOLUME 90.6 fL (75.5-95.3); MONOCYTES # (AUTO) 0.6 K/uL (0.1-1.30); MONOCYTES % (AUTO) 12.6 % (0.0-11.0); NEUTROPHILS # (AUTO) 2.8 K/uL (1.8-8.9); NEUTROPHILS % (AUTO) 55.7 % (38.5-71.5); PLATELET COUNT (AUTO) 136 K/uL (179-408); RED BLOOD CELL COUNT(AUTO) 3.92 MIL/uL (3.63-4.92); RED CELL DISTRIBUTION WIDTH 15.5 % (12.3-17.7); WHITE BLOOD COUNT (AUTO) 4.9 K/uL (3.8-11.8)
[2023-01-04 06:21] LABS: DIFFERENTIAL COMMENT 1
[2023-01-04 07:23] VITALS: TEMP 98.2
[2023-01-04] MEDS: HYDROGEN PEROXIDE 3% 118 ML BOTTLE TP SCH ×2 (08:00→19:11)
[2023-01-04] MEDS: levETIRAcetam 500 MG/5 ML LIQUID UDC GT SCH ×2 (08:25→20:20)
[2023-01-04] MEDS: DIGOXIN 125 MCG TABLET GT SCH (08:26)
[2023-01-04] MEDS: CLOTRIMAZOLE 1% CREAM 30 GM TUBE TOP SCH ×2 (08:27→20:21)
[2023-01-04] MEDS: POTASSIUM CHLORIDE 40 MEQ/30 ML LIQUID UDC GT SCH (08:27)
[2023-01-04] MEDS: SERTRALINE HCL 25 MG TABLET GT SCH (08:27)
[2023-01-04] MEDS: FUROSEMIDE 20 MG TABLET GT SCH (08:27)
[2023-01-04] MEDS: COD LIVER OIL/ZINC OXIDE OINT 113 GM TUBE TOP SCH ×2 (08:27→20:21)
[2023-01-04] MEDS: REMEDY ESSENTIAL ZINC PASTE 113 GM TP SCH ×2 (08:27→20:21)
[2023-01-04] MEDS: GLUCERNA 1.2 1000ML LIQUID GT PRN (15:37)
[2023-01-04] MEDS: ACIDOPHILUS/BULGARICUS CHEW TAB GT SCH (20:20)
[2023-01-04] MEDS: ASCORBIC ACID 500 MG TABLET GT SCH (20:21)
[2023-01-04] MEDS: NORMAL SALINE NASAL 45 ML BOTTLE NS SCH (20:21)
[2023-01-04 20:33] VITALS: TEMP 97.9
[2023-01-05] MEDS: ARGININE/GLUTAMINE/CALCIUM BMB 1 EACH POWD.PACK GT SCH ×2 (05:03→17:00)
[2023-01-05] MEDS: FAMOTIDINE 20 MG TABLET GT SCH ×2 (05:03→17:00)
[2023-01-05] MEDS: POLYVINYL ALCOHOL OPHT DROPS 15 ML BOTTLE EACHEYE SCH ×3 (05:03→22:43)
[2023-01-05] MEDS: PROTEIN SUPPLEMENT (PROSTAT) 30 ML LIQUID GT SCH ×3 (05:04→22:43)
[2023-01-05 07:25] VITALS: TEMP 97.8
[2023-01-05] MEDS: HYDROGEN PEROXIDE 3% 118 ML BOTTLE TP SCH ×2 (09:00→19:29)
[2023-01-05] MEDS: POTASSIUM CHLORIDE 40 MEQ/30 ML LIQUID UDC GT SCH (09:27)
[2023-01-05] MEDS: DIGOXIN 125 MCG TABLET GT SCH (09:27)
[2023-01-05] MEDS: FUROSEMIDE 20 MG TABLET GT SCH (09:27)
[2023-01-05] MEDS: CLOTRIMAZOLE 1% CREAM 30 GM TUBE TOP SCH ×2 (09:28→20:03)
[2023-01-05] MEDS: SERTRALINE HCL 25 MG TABLET GT SCH (09:28)
[2023-01-05] MEDS: COD LIVER OIL/ZINC OXIDE OINT 113 GM TUBE TOP SCH ×2 (09:28→20:03)
[2023-01-05] MEDS: REMEDY ESSENTIAL ZINC PASTE 113 GM TP SCH ×2 (09:28→20:03)
[2023-01-05] MEDS: levETIRAcetam 500 MG/5 ML LIQUID UDC GT SCH ×2 (09:33→20:03)
[2023-01-05 20:00] VITALS: TEMP 99.4
[2023-01-05] MEDS: NORMAL SALINE NASAL 45 ML BOTTLE NS SCH (20:03)
[2023-01-05] MEDS: ACIDOPHILUS/BULGARICUS CHEW TAB GT SCH (20:03)
[2023-01-05] MEDS: ASCORBIC ACID 500 MG TABLET GT SCH (20:03)
[2023-01-06] MEDS: PROTEIN SUPPLEMENT (PROSTAT) 30 ML LIQUID GT SCH ×3 (05:07→21:32)
[2023-01-06] MEDS: ARGININE/GLUTAMINE/CALCIUM BMB 1 EACH POWD.PACK GT SCH ×2 (05:07→17:35)
[2023-01-06] MEDS: POLYVINYL ALCOHOL OPHT DROPS 15 ML BOTTLE EACHEYE SCH ×3 (05:07→21:32)
[2023-01-06] MEDS: FAMOTIDINE 20 MG TABLET GT SCH ×2 (05:07→17:35)
[2023-01-06 07:35] VITALS: TEMP 97.6
[2023-01-06] MEDS: DIGOXIN 125 MCG TABLET GT SCH (08:19)
[2023-01-06] MEDS: POTASSIUM CHLORIDE 40 MEQ/30 ML LIQUID UDC GT SCH (08:19)
[2023-01-06] MEDS: FUROSEMIDE 20 MG TABLET GT SCH (08:19)
[2023-01-06] MEDS: levETIRAcetam 500 MG/5 ML LIQUID UDC GT SCH ×2 (08:19→21:29)
[2023-01-06] MEDS: COD LIVER OIL/ZINC OXIDE OINT 113 GM TUBE TOP SCH ×2 (08:20→21:32)
[2023-01-06] MEDS: CLOTRIMAZOLE 1% CREAM 30 GM TUBE TOP SCH ×2 (08:20→21:32)
[2023-01-06] MEDS: REMEDY ESSENTIAL ZINC PASTE 113 GM TP SCH ×2 (08:20→21:32)
[2023-01-06] MEDS: SERTRALINE HCL 25 MG TABLET GT SCH (08:20)
[2023-01-06] MEDS: HYDROGEN PEROXIDE 3% 118 ML BOTTLE TP SCH ×2 (08:56→19:07)
[2023-01-06 20:00] VITALS: TEMP 97.6
[2023-01-06] MEDS: ACIDOPHILUS/BULGARICUS CHEW TAB GT SCH (21:29)
[2023-01-06] MEDS: ASCORBIC ACID 500 MG TABLET GT SCH (21:31)
[2023-01-06] MEDS: NORMAL SALINE NASAL 45 ML BOTTLE NS SCH (21:32)
[2023-01-06] MEDS: GLUCERNA 1.2 1000ML LIQUID GT PRN (21:36)
[2023-01-07] MEDS: POLYVINYL ALCOHOL OPHT DROPS 15 ML BOTTLE EACHEYE SCH ×3 (05:43→21:47)
[2023-01-07] MEDS: PROTEIN SUPPLEMENT (PROSTAT) 30 ML LIQUID GT SCH ×3 (05:43→21:48)
[2023-01-07] MEDS: FAMOTIDINE 20 MG TABLET GT SCH ×2 (05:43→18:02)
[2023-01-07] MEDS: ARGININE/GLUTAMINE/CALCIUM BMB 1 EACH POWD.PACK GT SCH ×2 (05:43→18:02)
[2023-01-07 08:00] VITALS: TEMP 97.5
[2023-01-07] MEDS: HYDROGEN PEROXIDE 3% 118 ML BOTTLE TP SCH ×2 (09:00→21:14)
[2023-01-07] MEDS: levETIRAcetam 500 MG/5 ML LIQUID UDC GT SCH ×2 (09:40→21:45)
[2023-01-07] MEDS: DIGOXIN 125 MCG TABLET GT SCH (09:42)
[2023-01-07] MEDS: FUROSEMIDE 20 MG TABLET GT SCH (09:42)
[2023-01-07] MEDS: POTASSIUM CHLORIDE 40 MEQ/30 ML LIQUID UDC GT SCH (09:42)
[2023-01-07] MEDS: COD LIVER OIL/ZINC OXIDE OINT 113 GM TUBE TOP SCH ×2 (09:43→21:47)
[2023-01-07] MEDS: REMEDY ESSENTIAL ZINC PASTE 113 GM TP SCH ×2 (09:43→21:47)
[2023-01-07] MEDS: SERTRALINE HCL 25 MG TABLET GT SCH (09:43)
[2023-01-07] MEDS: CLOTRIMAZOLE 1% CREAM 30 GM TUBE TOP SCH ×2 (09:43→21:47)
[2023-01-07 20:00] VITALS: TEMP 99.2
[2023-01-07] MEDS: ACIDOPHILUS/BULGARICUS CHEW TAB GT SCH (21:45)
[2023-01-07] MEDS: ASCORBIC ACID 500 MG TABLET GT SCH (21:46)
[2023-01-07] MEDS: NORMAL SALINE NASAL 45 ML BOTTLE NS SCH (21:47)
[2023-01-07] MEDS: ACETAMINOPHEN 650 MG/20 ML UDC- SA PATIENTS-PAIN ONLY GT PRN (21:55)
[2023-01-08] MEDS: FAMOTIDINE 20 MG TABLET GT SCH ×2 (05:01→17:11)
[2023-01-08] MEDS: PROTEIN SUPPLEMENT (PROSTAT) 30 ML LIQUID GT SCH ×3 (05:01→21:06)
[2023-01-08] MEDS: POLYVINYL ALCOHOL OPHT DROPS 15 ML BOTTLE EACHEYE SCH ×3 (05:01→21:06)
[2023-01-08] MEDS: ARGININE/GLUTAMINE/CALCIUM BMB 1 EACH POWD.PACK GT SCH ×2 (05:01→17:11)
[2023-01-08] MEDS: GLUCERNA 1.2 1000ML LIQUID GT PRN (05:38)
[2023-01-08] MEDS: HYDROGEN PEROXIDE 3% 118 ML BOTTLE TP SCH ×2 (07:16→19:11)
[2023-01-08 07:18] VITALS: TEMP 97.7
[2023-01-08] MEDS: SERTRALINE HCL 25 MG TABLET GT SCH (08:39)
[2023-01-08] MEDS: FUROSEMIDE 20 MG TABLET GT SCH (08:39)
[2023-01-08] MEDS: DIGOXIN 125 MCG TABLET GT SCH (08:39)
[2023-01-08] MEDS: POTASSIUM CHLORIDE 40 MEQ/30 ML LIQUID UDC GT SCH (08:39)
[2023-01-08] MEDS: COD LIVER OIL/ZINC OXIDE OINT 113 GM TUBE TOP SCH ×2 (08:39→21:05)
[2023-01-08] MEDS: levETIRAcetam 500 MG/5 ML LIQUID UDC GT SCH ×2 (08:39→21:05)
[2023-01-08] MEDS: REMEDY ESSENTIAL ZINC PASTE 113 GM TP SCH ×2 (08:40→21:06)
[2023-01-08] MEDS: CLOTRIMAZOLE 1% CREAM 30 GM TUBE TOP SCH ×2 (08:40→21:06)
[2023-01-08 11:25] VITALS: O2SAT 99
[2023-01-08 20:00] VITALS: TEMP 98
[2023-01-08] MEDS: NORMAL SALINE NASAL 45 ML BOTTLE NS SCH (21:05)
[2023-01-08] MEDS: ASCORBIC ACID 500 MG TABLET GT SCH (21:05)
[2023-01-08] MEDS: ACIDOPHILUS/BULGARICUS CHEW TAB GT SCH (21:05)
[2023-01-09] MEDS: PROTEIN SUPPLEMENT (PROSTAT) 30 ML LIQUID GT SCH ×3 (05:33→21:50)
[2023-01-09] MEDS: POLYVINYL ALCOHOL OPHT DROPS 15 ML BOTTLE EACHEYE SCH ×3 (05:33→21:50)
[2023-01-09] MEDS: ARGININE/GLUTAMINE/CALCIUM BMB 1 EACH POWD.PACK GT SCH ×2 (05:33→17:05)
[2023-01-09] MEDS: FAMOTIDINE 20 MG TABLET GT SCH ×2 (05:33→17:05)
[2023-01-09 07:25] VITALS: TEMP 97.7
[2023-01-09] MEDS: levETIRAcetam 500 MG/5 ML LIQUID UDC GT SCH ×2 (08:25→20:44)
[2023-01-09] MEDS: COD LIVER OIL/ZINC OXIDE OINT 113 GM TUBE TOP SCH ×2 (08:27→20:44)
[2023-01-09] MEDS: SERTRALINE HCL 25 MG TABLET GT SCH (08:27)
[2023-01-09] MEDS: CLOTRIMAZOLE 1% CREAM 30 GM TUBE TOP SCH ×2 (08:27→20:44)
[2023-01-09] MEDS: POTASSIUM CHLORIDE 40 MEQ/30 ML LIQUID UDC GT SCH (08:27)
[2023-01-09] MEDS: DIGOXIN 125 MCG TABLET GT SCH (08:27)
[2023-01-09] MEDS: REMEDY ESSENTIAL ZINC PASTE 113 GM TP SCH ×2 (08:27→20:44)
[2023-01-09] MEDS: FUROSEMIDE 20 MG TABLET GT SCH (08:27)
[2023-01-09] MEDS: HYDROGEN PEROXIDE 3% 118 ML BOTTLE TP SCH ×2 (08:53→19:30)
[2023-01-09] MEDS: GLUCERNA 1.2 1000ML LIQUID GT PRN (15:05)
[2023-01-09 20:00] VITALS: TEMP 97.6
[2023-01-09] MEDS: ACIDOPHILUS/BULGARICUS CHEW TAB GT SCH (20:44)
[2023-01-09] MEDS: NORMAL SALINE NASAL 45 ML BOTTLE NS SCH (20:44)
[2023-01-09] MEDS: ASCORBIC ACID 500 MG TABLET GT SCH (20:44)
[2023-01-10] MEDS: FAMOTIDINE 20 MG TABLET GT SCH ×2 (05:01→18:30)
[2023-01-10] MEDS: POLYVINYL ALCOHOL OPHT DROPS 15 ML BOTTLE EACHEYE SCH ×3 (05:01→21:27)
[2023-01-10] MEDS: ARGININE/GLUTAMINE/CALCIUM BMB 1 EACH POWD.PACK GT SCH ×2 (05:01→18:30)
[2023-01-10] MEDS: PROTEIN SUPPLEMENT (PROSTAT) 30 ML LIQUID GT SCH ×3 (05:02→21:27)
[2023-01-10 07:27] VITALS: TEMP 98.5
[2023-01-10] MEDS: HYDROGEN PEROXIDE 3% 118 ML BOTTLE TP SCH ×3 (08:57→19:15)
[2023-01-10] MEDS: DIGOXIN 125 MCG TABLET GT SCH (09:00)
[2023-01-10] MEDS: FUROSEMIDE 20 MG TABLET GT SCH (09:00)
[2023-01-10] MEDS: COD LIVER OIL/ZINC OXIDE OINT 113 GM TUBE TOP SCH ×2 (09:00→20:26)
[2023-01-10] MEDS: CLOTRIMAZOLE 1% CREAM 30 GM TUBE TOP SCH ×2 (09:00→20:26)
[2023-01-10] MEDS: levETIRAcetam 500 MG/5 ML LIQUID UDC GT SCH ×2 (09:00→20:27)
[2023-01-10] MEDS: POTASSIUM CHLORIDE 40 MEQ/30 ML LIQUID UDC GT SCH (09:00)
[2023-01-10] MEDS: REMEDY ESSENTIAL ZINC PASTE 113 GM TP SCH ×2 (09:00→20:26)
[2023-01-10] MEDS: SERTRALINE HCL 25 MG TABLET GT SCH (09:00)
[2023-01-10] MEDS: GLUCERNA 1.2 1000ML LIQUID GT PRN (18:57)
[2023-01-10 20:00] VITALS: TEMP 98.3
[2023-01-10] MEDS: ASCORBIC ACID 500 MG TABLET GT SCH (20:25)
[2023-01-10] MEDS: ACIDOPHILUS/BULGARICUS CHEW TAB GT SCH (20:25)
[2023-01-10] MEDS: NORMAL SALINE NASAL 45 ML BOTTLE NS SCH (20:26)
[2023-01-11] MEDS: PROTEIN SUPPLEMENT (PROSTAT) 30 ML LIQUID GT SCH ×3 (05:04→22:01)
[2023-01-11] MEDS: POLYVINYL ALCOHOL OPHT DROPS 15 ML BOTTLE EACHEYE SCH ×3 (05:04→22:01)
[2023-01-11] MEDS: ARGININE/GLUTAMINE/CALCIUM BMB 1 EACH POWD.PACK GT SCH ×2 (05:04→17:46)
[2023-01-11] MEDS: FAMOTIDINE 20 MG TABLET GT SCH ×2 (05:04→17:46)
[2023-01-11 08:00] VITALS: TEMP 98.2
[2023-01-11] MEDS: HYDROGEN PEROXIDE 3% 118 ML BOTTLE TP SCH ×2 (09:00→21:00)
[2023-01-11] MEDS: levETIRAcetam 500 MG/5 ML LIQUID UDC GT SCH ×2 (09:45→20:48)
[2023-01-11] MEDS: DIGOXIN 125 MCG TABLET GT SCH (09:46)
[2023-01-11] MEDS: POTASSIUM CHLORIDE 40 MEQ/30 ML LIQUID UDC GT SCH (09:48)
[2023-01-11] MEDS: FUROSEMIDE 20 MG TABLET GT SCH (09:48)
[2023-01-11] MEDS: SERTRALINE HCL 25 MG TABLET GT SCH (09:48)
[2023-01-11] MEDS: CLOTRIMAZOLE 1% CREAM 30 GM TUBE TOP SCH ×2 (09:49→20:56)
[2023-01-11] MEDS: REMEDY ESSENTIAL ZINC PASTE 113 GM TP SCH ×2 (09:49→20:56)
[2023-01-11] MEDS: COD LIVER OIL/ZINC OXIDE OINT 113 GM TUBE TOP SCH ×2 (09:49→20:48)
[2023-01-11 20:00] VITALS: TEMP 98.6
[2023-01-11] MEDS: ACIDOPHILUS/BULGARICUS CHEW TAB GT SCH (20:46)
[2023-01-11] MEDS: ASCORBIC ACID 500 MG TABLET GT SCH (20:48)
[2023-01-11] MEDS: NORMAL SALINE NASAL 45 ML BOTTLE NS SCH (20:48)
[2023-01-12] MEDS: GLUCERNA 1.2 1000ML LIQUID GT PRN (00:13)
[2023-01-12] MEDS: POLYVINYL ALCOHOL OPHT DROPS 15 ML BOTTLE EACHEYE SCH ×3 (05:01→22:00)
[2023-01-12] MEDS: FAMOTIDINE 20 MG TABLET GT SCH ×2 (05:01→17:15)
[2023-01-12] MEDS: ARGININE/GLUTAMINE/CALCIUM BMB 1 EACH POWD.PACK GT SCH ×2 (05:01→17:15)
[2023-01-12] MEDS: PROTEIN SUPPLEMENT (PROSTAT) 30 ML LIQUID GT SCH ×3 (05:01→22:00)
[2023-01-12 07:49] VITALS: TEMP 99.1
[2023-01-12 08:00] VITALS: TEMP 98.1
[2023-01-12] MEDS: DIGOXIN 125 MCG TABLET GT SCH (08:14)
[2023-01-12] MEDS: FUROSEMIDE 20 MG TABLET GT SCH (08:16)
[2023-01-12] MEDS: levETIRAcetam 500 MG/5 ML LIQUID UDC GT SCH ×2 (08:16→20:01)
[2023-01-12] MEDS: POTASSIUM CHLORIDE 40 MEQ/30 ML LIQUID UDC GT SCH (08:20)
[2023-01-12] MEDS: CLOTRIMAZOLE 1% CREAM 30 GM TUBE TOP SCH ×2 (08:21→20:01)
[2023-01-12] MEDS: COD LIVER OIL/ZINC OXIDE OINT 113 GM TUBE TOP SCH ×2 (08:21→20:01)
[2023-01-12] MEDS: SERTRALINE HCL 25 MG TABLET GT SCH (08:21)
[2023-01-12] MEDS: REMEDY ESSENTIAL ZINC PASTE 113 GM TP SCH ×2 (08:22→20:01)
[2023-01-12] MEDS: HYDROGEN PEROXIDE 3% 118 ML BOTTLE TP SCH ×2 (09:00→19:14)
[2023-01-12 19:58] VITALS: TEMP 98.5
[2023-01-12] MEDS: NORMAL SALINE NASAL 45 ML BOTTLE NS SCH (20:01)
[2023-01-12] MEDS: ASCORBIC ACID 500 MG TABLET GT SCH (20:01)
[2023-01-12] MEDS: ACIDOPHILUS/BULGARICUS CHEW TAB GT SCH (20:01)
[2023-01-13] MEDS: FAMOTIDINE 20 MG TABLET GT SCH ×2 (06:08→18:07)
[2023-01-13] MEDS: POLYVINYL ALCOHOL OPHT DROPS 15 ML BOTTLE EACHEYE SCH ×3 (06:08→22:02)
[2023-01-13] MEDS: ARGININE/GLUTAMINE/CALCIUM BMB 1 EACH POWD.PACK GT SCH ×2 (06:08→18:07)
[2023-01-13] MEDS: PROTEIN SUPPLEMENT (PROSTAT) 30 ML LIQUID GT SCH ×3 (06:08→22:01)
[2023-01-13] MEDS: HYDROGEN PEROXIDE 3% 118 ML BOTTLE TP SCH ×2 (07:14→19:08)
[2023-01-13 08:06] VITALS: TEMP 99.5
[2023-01-13 08:46] VITALS: TEMP 97.6
[2023-01-13] MEDS: levETIRAcetam 500 MG/5 ML LIQUID UDC GT SCH ×2 (08:49→21:00)
[2023-01-13] MEDS: POTASSIUM CHLORIDE 40 MEQ/30 ML LIQUID UDC GT SCH (08:50)
[2023-01-13] MEDS: DIGOXIN 125 MCG TABLET GT SCH (08:50)
[2023-01-13] MEDS: FUROSEMIDE 20 MG TABLET GT SCH (08:50)
[2023-01-13] MEDS: SERTRALINE HCL 25 MG TABLET GT SCH (08:51)
[2023-01-13] MEDS: COD LIVER OIL/ZINC OXIDE OINT 113 GM TUBE TOP SCH ×2 (08:51→21:00)
[2023-01-13] MEDS: CLOTRIMAZOLE 1% CREAM 30 GM TUBE TOP SCH ×2 (08:52→21:00)
[2023-01-13] MEDS: REMEDY ESSENTIAL ZINC PASTE 113 GM TP SCH ×2 (08:52→21:00)
[2023-01-13 20:00] VITALS: TEMP 99.3
[2023-01-13] MEDS: NORMAL SALINE NASAL 45 ML BOTTLE NS SCH (21:00)
[2023-01-13] MEDS: ACIDOPHILUS/BULGARICUS CHEW TAB GT SCH (21:00)
[2023-01-13] MEDS: ASCORBIC ACID 500 MG TABLET GT SCH (21:00)
[2023-01-14] MEDS: POLYVINYL ALCOHOL OPHT DROPS 15 ML BOTTLE EACHEYE SCH ×3 (05:21→22:14)
[2023-01-14] MEDS: GLUCERNA 1.2 1000ML LIQUID GT PRN (05:21)
[2023-01-14] MEDS: FAMOTIDINE 20 MG TABLET GT SCH ×2 (05:21→17:56)
[2023-01-14] MEDS: PROTEIN SUPPLEMENT (PROSTAT) 30 ML LIQUID GT SCH ×3 (05:21→22:14)
[2023-01-14] MEDS: ARGININE/GLUTAMINE/CALCIUM BMB 1 EACH POWD.PACK GT SCH ×2 (05:21→17:56)
[2023-01-14] MEDS: HYDROGEN PEROXIDE 3% 118 ML BOTTLE TP SCH ×2 (07:16→19:11)
[2023-01-14 08:03] VITALS: TEMP 98.1
[2023-01-14] MEDS: levETIRAcetam 500 MG/5 ML LIQUID UDC GT SCH ×2 (09:34→21:00)
[2023-01-14] MEDS: DIGOXIN 125 MCG TABLET GT SCH (09:36)
[2023-01-14] MEDS: POTASSIUM CHLORIDE 40 MEQ/30 ML LIQUID UDC GT SCH (09:37)
[2023-01-14] MEDS: FUROSEMIDE 20 MG TABLET GT SCH (09:37)
[2023-01-14] MEDS: COD LIVER OIL/ZINC OXIDE OINT 113 GM TUBE TOP SCH ×2 (09:38→21:00)
[2023-01-14] MEDS: SERTRALINE HCL 25 MG TABLET GT SCH (09:38)
[2023-01-14] MEDS: CLOTRIMAZOLE 1% CREAM 30 GM TUBE TOP SCH ×2 (09:39→21:00)
[2023-01-14] MEDS: REMEDY ESSENTIAL ZINC PASTE 113 GM TP SCH ×2 (09:39→21:00)
[2023-01-14 20:00] VITALS: TEMP 99.5
[2023-01-14] MEDS: ACIDOPHILUS/BULGARICUS CHEW TAB GT SCH (21:00)
[2023-01-14] MEDS: NORMAL SALINE NASAL 45 ML BOTTLE NS SCH (21:00)
[2023-01-14] MEDS: ASCORBIC ACID 500 MG TABLET GT SCH (21:00)
[2023-01-15] MEDS: ARGININE/GLUTAMINE/CALCIUM BMB 1 EACH POWD.PACK GT SCH ×2 (06:12→18:23)
[2023-01-15] MEDS: PROTEIN SUPPLEMENT (PROSTAT) 30 ML LIQUID GT SCH ×3 (06:12→22:56)
[2023-01-15] MEDS: FAMOTIDINE 20 MG TABLET GT SCH ×2 (06:12→18:24)
[2023-01-15] MEDS: POLYVINYL ALCOHOL OPHT DROPS 15 ML BOTTLE EACHEYE SCH ×3 (06:12→22:56)
[2023-01-15] MEDS: HYDROGEN PEROXIDE 3% 118 ML BOTTLE TP SCH ×2 (07:36→19:03)
[2023-01-15 07:53] VITALS: TEMP 99.1
[2023-01-15] MEDS: FUROSEMIDE 20 MG TABLET GT SCH (09:15)
[2023-01-15] MEDS: CLOTRIMAZOLE 1% CREAM 30 GM TUBE TOP SCH ×2 (09:15→20:40)
[2023-01-15] MEDS: levETIRAcetam 500 MG/5 ML LIQUID UDC GT SCH ×2 (09:15→20:40)
[2023-01-15] MEDS: DIGOXIN 125 MCG TABLET GT SCH (09:15)
[2023-01-15] MEDS: SERTRALINE HCL 25 MG TABLET GT SCH (09:15)
[2023-01-15] MEDS: REMEDY ESSENTIAL ZINC PASTE 113 GM TP SCH ×2 (09:15→20:40)
[2023-01-15] MEDS: POTASSIUM CHLORIDE 40 MEQ/30 ML LIQUID UDC GT SCH (09:15)
[2023-01-15] MEDS: COD LIVER OIL/ZINC OXIDE OINT 113 GM TUBE TOP SCH ×2 (09:15→20:40)
[2023-01-15] MEDS: GLUCERNA 1.2 1000ML LIQUID GT PRN (17:00)
[2023-01-15 20:00] VITALS: TEMP 98.1
[2023-01-15] MEDS: NORMAL SALINE NASAL 45 ML BOTTLE NS SCH (20:40)
[2023-01-15] MEDS: ACIDOPHILUS/BULGARICUS CHEW TAB GT SCH (20:40)
[2023-01-15] MEDS: ASCORBIC ACID 500 MG TABLET GT SCH (20:40)
[2023-01-16] MEDS: POLYVINYL ALCOHOL OPHT DROPS 15 ML BOTTLE EACHEYE SCH ×3 (05:20→22:12)
[2023-01-16] MEDS: ARGININE/GLUTAMINE/CALCIUM BMB 1 EACH POWD.PACK GT SCH ×2 (05:21→18:07)
[2023-01-16] MEDS: PROTEIN SUPPLEMENT (PROSTAT) 30 ML LIQUID GT SCH ×3 (05:21→22:17)
[2023-01-16] MEDS: FAMOTIDINE 20 MG TABLET GT SCH ×2 (05:21→18:13)
[2023-01-16 08:00] VITALS: TEMP 98.5
[2023-01-16] MEDS: levETIRAcetam 500 MG/5 ML LIQUID UDC GT SCH ×2 (08:48→21:00)
[2023-01-16] MEDS: FUROSEMIDE 20 MG TABLET GT SCH (08:51)
[2023-01-16] MEDS: DIGOXIN 125 MCG TABLET GT SCH (08:51)
[2023-01-16] MEDS: POTASSIUM CHLORIDE 40 MEQ/30 ML LIQUID UDC GT SCH (08:53)
[2023-01-16] MEDS: COD LIVER OIL/ZINC OXIDE OINT 113 GM TUBE TOP SCH (08:53)
[2023-01-16] MEDS: SERTRALINE HCL 25 MG TABLET GT SCH (08:53)
[2023-01-16] MEDS: REMEDY ESSENTIAL ZINC PASTE 113 GM TP SCH ×2 (08:54→21:00)
[2023-01-16] MEDS: HYDROGEN PEROXIDE 3% 118 ML BOTTLE TP SCH ×2 (09:05→21:53)
[2023-01-16] MEDS: CLOTRIMAZOLE 1% CREAM 30 GM TUBE TOP SCH (09:24)
[2023-01-16 20:00] VITALS: TEMP 98.2
[2023-01-16] MEDS: NORMAL SALINE NASAL 45 ML BOTTLE NS SCH (21:00)
[2023-01-16] MEDS: ACIDOPHILUS/BULGARICUS CHEW TAB GT SCH (21:00)
[2023-01-16] MEDS: ASCORBIC ACID 500 MG TABLET GT SCH (21:00)
[2023-01-16] MEDS: GLUCERNA 1.2 1000ML LIQUID GT PRN (23:31)
[2023-01-17] MEDS: FAMOTIDINE 20 MG TABLET GT SCH ×2 (06:14→18:15)
[2023-01-17] MEDS: POLYVINYL ALCOHOL OPHT DROPS 15 ML BOTTLE EACHEYE SCH ×3 (06:14→22:20)
[2023-01-17] MEDS: PROTEIN SUPPLEMENT (PROSTAT) 30 ML LIQUID GT SCH ×3 (06:14→22:20)
[2023-01-17] MEDS: ARGININE/GLUTAMINE/CALCIUM BMB 1 EACH POWD.PACK GT SCH ×2 (06:14→18:15)
[2023-01-17 06:16] LABS: BASOPHILS # (AUTO) 0.1 K/UL (0.0-0.2); BASOPHILS % (AUTO) 1.3 % (0.0-2.0); EOSINOPHILS # (AUTO) 0.3 K/uL (0.0-0.7); EOSINOPHILS % (AUTO) 7.9 % (0.0-7.0); LYMPHOCYTES # (AUTO) 1.4 K/uL (0.8-4.8); LYMPHOCYTES % (AUTO) 35.2 % (20.5-51.5); MEAN CORPUSCULAR HEMOGLOBIN 30.4 uug (24.7-32.8); MEAN CORPUSCULAR HGB CONC 33 g/dL (32.3-35.6); MEAN CORPUSCULAR VOLUME 91.1 fL (75.5-95.3); MONOCYTES # (AUTO) 0.5 K/uL (0.1-1.30); MONOCYTES % (AUTO) 13.2 % (0.0-11.0); NEUTROPHILS # (AUTO) 1.7 K/uL (1.8-8.9); NEUTROPHILS % (AUTO) 42.4 % (38.5-71.5); PLATELET COUNT (AUTO) 96 K/uL (179-408); RED BLOOD CELL COUNT(AUTO) 4.28 MIL/uL (3.63-4.92); RED CELL DISTRIBUTION WIDTH 15.6 % (12.3-17.7); WHITE BLOOD COUNT (AUTO) 3.9 K/uL (3.8-11.8)
[2023-01-17 06:54] LABS: DIFFERENTIAL COMMENT 1
[2023-01-17 07:03] LABS: CALCIUM 8.8 mg/dL (8.5-10.1); CARBON DIOXIDE 27 mmol/L (21-32); CHLORIDE 110 mmol/L (98-107); CREATININE 0.7 mg/dL (0.6-1.3); GLUCOSE 102 mg/dL (74-106); MAGNESIUM 2.4 mg/dL (1.8-2.4); PHOSPHOROUS 3.3 mg/dL (2.5-4.9); POTASSIUM 3.8 mmol/L (3.5-5.1); SODIUM SERUM 142 mmol/L (136-145); UREA NITROGEN, BLOOD 35 mg/dL (7-18)
[2023-01-17 07:45] VITALS: TEMP 97.8
[2023-01-17] MEDS: levETIRAcetam 500 MG/5 ML LIQUID UDC GT SCH ×2 (08:02→21:00)
[2023-01-17] MEDS: DIGOXIN 125 MCG TABLET GT SCH (08:03)
[2023-01-17] MEDS: HYDROGEN PEROXIDE 3% 118 ML BOTTLE TP SCH ×2 (08:03→19:12)
[2023-01-17] MEDS: SERTRALINE HCL 25 MG TABLET GT SCH (08:03)
[2023-01-17] MEDS: FUROSEMIDE 20 MG TABLET GT SCH (08:03)
[2023-01-17] MEDS: REMEDY ESSENTIAL ZINC PASTE 113 GM TP SCH ×2 (08:03→21:00)
[2023-01-17] MEDS: POTASSIUM CHLORIDE 40 MEQ/30 ML LIQUID UDC GT SCH (08:05)
[2023-01-17 20:00] VITALS: TEMP 98.5
[2023-01-17] MEDS: NORMAL SALINE NASAL 45 ML BOTTLE NS SCH (21:00)
[2023-01-17] MEDS: ACIDOPHILUS/BULGARICUS CHEW TAB GT SCH (21:00)
[2023-01-17] MEDS: ASCORBIC ACID 500 MG TABLET GT SCH (21:00)
[2023-01-18] MEDS: ARGININE/GLUTAMINE/CALCIUM BMB 1 EACH POWD.PACK GT SCH ×2 (05:27→17:37)
[2023-01-18] MEDS: POLYVINYL ALCOHOL OPHT DROPS 15 ML BOTTLE EACHEYE SCH ×3 (05:27→21:14)
[2023-01-18] MEDS: PROTEIN SUPPLEMENT (PROSTAT) 30 ML LIQUID GT SCH ×3 (05:27→21:14)
[2023-01-18] MEDS: FAMOTIDINE 20 MG TABLET GT SCH ×2 (05:27→17:37)
[2023-01-18 08:00] VITALS: TEMP 99
[2023-01-18] MEDS: HYDROGEN PEROXIDE 3% 118 ML BOTTLE TP SCH ×2 (08:56→20:30)
[2023-01-18] MEDS: levETIRAcetam 500 MG/5 ML LIQUID UDC GT SCH ×2 (09:04→20:47)
[2023-01-18] MEDS: SERTRALINE HCL 25 MG TABLET GT SCH (09:05)
[2023-01-18] MEDS: POTASSIUM CHLORIDE 40 MEQ/30 ML LIQUID UDC GT SCH (09:05)
[2023-01-18] MEDS: FUROSEMIDE 20 MG TABLET GT SCH (09:05)
[2023-01-18] MEDS: REMEDY ESSENTIAL ZINC PASTE 113 GM TP SCH ×2 (09:05→20:48)
[2023-01-18] MEDS: DIGOXIN 125 MCG TABLET GT SCH (09:11)
[2023-01-18] MEDS ORDERED: DIATR MEGLU/DIATRIZOATE SODIUM 30 ML BOTTLE ONE (14:53)
[2023-01-18 20:00] VITALS: TEMP 98.1
[2023-01-18] MEDS: ACIDOPHILUS/BULGARICUS CHEW TAB GT SCH (20:47)
[2023-01-18] MEDS: NORMAL SALINE NASAL 45 ML BOTTLE NS SCH (20:48)
[2023-01-18] MEDS: ASCORBIC ACID 500 MG TABLET GT SCH (20:48)
[2023-01-18] MEDS: GLUCERNA 1.2 1000ML LIQUID GT PRN (20:55)
[2023-01-19] MEDS: FAMOTIDINE 20 MG TABLET GT SCH ×2 (06:33→18:54)
[2023-01-19] MEDS: PROTEIN SUPPLEMENT (PROSTAT) 30 ML LIQUID GT SCH ×3 (06:33→22:36)
[2023-01-19] MEDS: ARGININE/GLUTAMINE/CALCIUM BMB 1 EACH POWD.PACK GT SCH ×2 (06:33→18:54)
[2023-01-19] MEDS: POLYVINYL ALCOHOL OPHT DROPS 15 ML BOTTLE EACHEYE SCH ×3 (06:33→22:36)
[2023-01-19 08:00] VITALS: TEMP 99.6
[2023-01-19] MEDS: levETIRAcetam 500 MG/5 ML LIQUID UDC GT SCH ×2 (08:10→20:05)
[2023-01-19] MEDS: DIGOXIN 125 MCG TABLET GT SCH (08:22)
[2023-01-19] MEDS: FUROSEMIDE 20 MG TABLET GT SCH (08:23)
[2023-01-19] MEDS: POTASSIUM CHLORIDE 40 MEQ/30 ML LIQUID UDC GT SCH (08:25)
[2023-01-19] MEDS: SERTRALINE HCL 25 MG TABLET GT SCH (08:25)
[2023-01-19] MEDS: REMEDY ESSENTIAL ZINC PASTE 113 GM TP SCH ×2 (08:26→20:06)
[2023-01-19] MEDS: HYDROGEN PEROXIDE 3% 118 ML BOTTLE TP SCH ×2 (09:00→23:36)
[2023-01-19 20:00] VITALS: TEMP 98.9
[2023-01-19] MEDS: ACIDOPHILUS/BULGARICUS CHEW TAB GT SCH (20:04)
[2023-01-19] MEDS: ASCORBIC ACID 500 MG TABLET GT SCH (20:06)
[2023-01-19] MEDS: NORMAL SALINE NASAL 45 ML BOTTLE NS SCH (20:06)
[2023-01-20] MEDS: FAMOTIDINE 20 MG TABLET GT SCH ×2 (05:25→17:03)
[2023-01-20] MEDS: POLYVINYL ALCOHOL OPHT DROPS 15 ML BOTTLE EACHEYE SCH ×3 (05:25→21:07)
[2023-01-20] MEDS: PROTEIN SUPPLEMENT (PROSTAT) 30 ML LIQUID GT SCH ×2 (05:25→13:14)
[2023-01-20] MEDS: ARGININE/GLUTAMINE/CALCIUM BMB 1 EACH POWD.PACK GT SCH ×2 (05:25→17:03)
[2023-01-20] MEDS: HYDROGEN PEROXIDE 3% 118 ML BOTTLE TP SCH ×2 (07:19→21:21)
[2023-01-20 07:55] VITALS: TEMP 98.5
[2023-01-20] MEDS: levETIRAcetam 500 MG/5 ML LIQUID UDC GT SCH ×2 (08:20→21:05)
[2023-01-20] MEDS: DIGOXIN 125 MCG TABLET GT SCH (08:20)
[2023-01-20] MEDS: POTASSIUM CHLORIDE 40 MEQ/30 ML LIQUID UDC GT SCH (08:21)
[2023-01-20] MEDS: FUROSEMIDE 20 MG TABLET GT SCH (08:21)
[2023-01-20] MEDS: SERTRALINE HCL 25 MG TABLET GT SCH (08:21)
[2023-01-20] MEDS: REMEDY ESSENTIAL ZINC PASTE 113 GM TP SCH ×2 (08:22→21:07)
[2023-01-20] MEDS: NORMAL SALINE NASAL 45 ML BOTTLE NS SCH (21:00)
[2023-01-20] MEDS: ACIDOPHILUS/BULGARICUS CHEW TAB GT SCH (21:05)
[2023-01-20] MEDS: ASCORBIC ACID 500 MG TABLET GT SCH (21:05)
[2023-01-21] MEDS: FAMOTIDINE 20 MG TABLET GT SCH ×2 (06:49→17:34)
[2023-01-21] MEDS: GLUCERNA 1.2 1000ML LIQUID GT PRN (06:49)
[2023-01-21] MEDS: POLYVINYL ALCOHOL OPHT DROPS 15 ML BOTTLE EACHEYE SCH ×3 (06:49→21:20)
[2023-01-21 08:00] VITALS: TEMP 98.2
[2023-01-21] MEDS: levETIRAcetam 500 MG/5 ML LIQUID UDC GT SCH ×2 (08:41→20:13)
[2023-01-21] MEDS: DIGOXIN 125 MCG TABLET GT SCH (08:41)
[2023-01-21] MEDS: FUROSEMIDE 20 MG TABLET GT SCH (08:41)
[2023-01-21] MEDS: POTASSIUM CHLORIDE 40 MEQ/30 ML LIQUID UDC GT SCH (08:42)
[2023-01-21] MEDS: SERTRALINE HCL 25 MG TABLET GT SCH (08:42)
[2023-01-21] MEDS: REMEDY ESSENTIAL ZINC PASTE 113 GM TP SCH ×2 (08:42→20:13)
[2023-01-21] MEDS: HYDROGEN PEROXIDE 3% 118 ML BOTTLE TP SCH ×2 (08:46→19:09)
[2023-01-21 20:00] VITALS: TEMP 97.7
[2023-01-21] MEDS: NORMAL SALINE NASAL 45 ML BOTTLE NS SCH (20:13)
[2023-01-21] MEDS: ACIDOPHILUS/BULGARICUS CHEW TAB GT SCH (20:13)
[2023-01-21] MEDS: ASCORBIC ACID 500 MG TABLET GT SCH (20:13)
[2023-01-22] MEDS: GLUCERNA 1.2 1000ML LIQUID GT PRN (02:10)
[2023-01-22] MEDS: FAMOTIDINE 20 MG TABLET GT SCH ×2 (06:20→17:09)
[2023-01-22] MEDS: POLYVINYL ALCOHOL OPHT DROPS 15 ML BOTTLE EACHEYE SCH ×3 (06:20→22:35)
[2023-01-22 07:25] VITALS: TEMP 97.8
[2023-01-22] MEDS: HYDROGEN PEROXIDE 3% 118 ML BOTTLE TP SCH ×2 (08:11→19:14)
[2023-01-22] MEDS: levETIRAcetam 500 MG/5 ML LIQUID UDC GT SCH ×2 (08:55→20:01)
[2023-01-22] MEDS: REMEDY ESSENTIAL ZINC PASTE 113 GM TP SCH ×2 (08:56→20:02)
[2023-01-22] MEDS: POTASSIUM CHLORIDE 40 MEQ/30 ML LIQUID UDC GT SCH (08:56)
[2023-01-22] MEDS: FUROSEMIDE 20 MG TABLET GT SCH (08:56)
[2023-01-22] MEDS: SERTRALINE HCL 25 MG TABLET GT SCH (08:56)
[2023-01-22] MEDS: DIGOXIN 125 MCG TABLET GT SCH (08:56)
[2023-01-22 19:50] VITALS: TEMP 97.6
[2023-01-22] MEDS: ACIDOPHILUS/BULGARICUS CHEW TAB GT SCH (20:01)
[2023-01-22] MEDS: ASCORBIC ACID 500 MG TABLET GT SCH (20:01)
[2023-01-22] MEDS: NORMAL SALINE NASAL 45 ML BOTTLE NS SCH (20:02)
[2023-01-23] MEDS: GLUCERNA 1.2 1000ML LIQUID GT PRN (05:02)
[2023-01-23] MEDS: FAMOTIDINE 20 MG TABLET GT SCH ×2 (05:02→17:16)
[2023-01-23] MEDS: POLYVINYL ALCOHOL OPHT DROPS 15 ML BOTTLE EACHEYE SCH ×3 (05:02→22:23)
[2023-01-23 07:29] VITALS: TEMP 97.9
[2023-01-23] MEDS: FUROSEMIDE 20 MG TABLET GT SCH (08:33)
[2023-01-23] MEDS: levETIRAcetam 500 MG/5 ML LIQUID UDC GT SCH ×2 (08:33→20:08)
[2023-01-23] MEDS: POTASSIUM CHLORIDE 40 MEQ/30 ML LIQUID UDC GT SCH (08:33)
[2023-01-23] MEDS: DIGOXIN 125 MCG TABLET GT SCH (08:33)
[2023-01-23] MEDS: SERTRALINE HCL 25 MG TABLET GT SCH (08:34)
[2023-01-23] MEDS: REMEDY ESSENTIAL ZINC PASTE 113 GM TP SCH ×2 (08:34→20:08)
[2023-01-23] MEDS: HYDROGEN PEROXIDE 3% 118 ML BOTTLE TP SCH ×2 (09:57→19:01)
[2023-01-23] MEDS: NORMAL SALINE NASAL 45 ML BOTTLE NS SCH (20:08)
[2023-01-23] MEDS: ASCORBIC ACID 500 MG TABLET GT SCH (20:08)
[2023-01-23] MEDS: ACIDOPHILUS/BULGARICUS CHEW TAB GT SCH (20:08)
[2023-01-23 20:49] VITALS: TEMP 97.5
[2023-01-24] MEDS: GLUCERNA 1.2 1000ML LIQUID GT PRN ×2 (05:17→18:34)
[2023-01-24] MEDS: FAMOTIDINE 20 MG TABLET GT SCH ×2 (05:17→17:29)
[2023-01-24] MEDS: POLYVINYL ALCOHOL OPHT DROPS 15 ML BOTTLE EACHEYE SCH ×3 (05:17→22:38)
[2023-01-24 07:20] VITALS: TEMP 97.8
[2023-01-24] MEDS: FUROSEMIDE 20 MG TABLET GT SCH (08:17)
[2023-01-24] MEDS: DIGOXIN 125 MCG TABLET GT SCH (08:17)
[2023-01-24] MEDS: levETIRAcetam 500 MG/5 ML LIQUID UDC GT SCH ×2 (08:17→20:23)
[2023-01-24] MEDS: REMEDY ESSENTIAL ZINC PASTE 113 GM TP SCH ×2 (08:18→20:24)
[2023-01-24] MEDS: POTASSIUM CHLORIDE 40 MEQ/30 ML LIQUID UDC GT SCH (08:18)
[2023-01-24] MEDS: SERTRALINE HCL 25 MG TABLET GT SCH (08:18)
[2023-01-24] MEDS: HYDROGEN PEROXIDE 3% 118 ML BOTTLE TP SCH ×2 (09:57→19:08)
[2023-01-24 20:00] VITALS: TEMP 97.2
[2023-01-24] MEDS: ASCORBIC ACID 500 MG TABLET GT SCH (20:23)
[2023-01-24] MEDS: ACIDOPHILUS/BULGARICUS CHEW TAB GT SCH (20:23)
[2023-01-24] MEDS: NORMAL SALINE NASAL 45 ML BOTTLE NS SCH (20:23)
[2023-01-25] MEDS: FAMOTIDINE 20 MG TABLET GT SCH ×2 (05:23→17:02)
[2023-01-25] MEDS: POLYVINYL ALCOHOL OPHT DROPS 15 ML BOTTLE EACHEYE SCH ×3 (05:23→22:14)
[2023-01-25 07:19] VITALS: TEMP 97.6
[2023-01-25] MEDS: HYDROGEN PEROXIDE 3% 118 ML BOTTLE TP SCH ×2 (08:13→19:13)
[2023-01-25] MEDS: levETIRAcetam 500 MG/5 ML LIQUID UDC GT SCH ×2 (09:40→20:15)
[2023-01-25] MEDS: SERTRALINE HCL 25 MG TABLET GT SCH (09:42)
[2023-01-25] MEDS: DIGOXIN 125 MCG TABLET GT SCH (09:42)
[2023-01-25] MEDS: POTASSIUM CHLORIDE 40 MEQ/30 ML LIQUID UDC GT SCH (09:42)
[2023-01-25] MEDS: REMEDY ESSENTIAL ZINC PASTE 113 GM TP SCH ×2 (09:42→20:15)
[2023-01-25] MEDS: FUROSEMIDE 20 MG TABLET GT SCH (09:42)
[2023-01-25] MEDS: GLUCERNA 1.2 1000ML LIQUID GT PRN (17:02)
[2023-01-25 20:00] VITALS: TEMP 98.4
[2023-01-25] MEDS: ASCORBIC ACID 500 MG TABLET GT SCH (20:15)
[2023-01-25] MEDS: ACIDOPHILUS/BULGARICUS CHEW TAB GT SCH (20:15)
[2023-01-25] MEDS: NORMAL SALINE NASAL 45 ML BOTTLE NS SCH (20:15)
[2023-01-26] MEDS: FAMOTIDINE 20 MG TABLET GT SCH ×2 (05:24→17:36)
[2023-01-26] MEDS: POLYVINYL ALCOHOL OPHT DROPS 15 ML BOTTLE EACHEYE SCH ×3 (05:24→22:00)
[2023-01-26 07:57] VITALS: TEMP 97.5
[2023-01-26] MEDS: levETIRAcetam 500 MG/5 ML LIQUID UDC GT SCH ×2 (08:46→20:38)
[2023-01-26] MEDS: DIGOXIN 125 MCG TABLET GT SCH (08:46)
[2023-01-26] MEDS: FUROSEMIDE 20 MG TABLET GT SCH (08:46)
[2023-01-26] MEDS: REMEDY ESSENTIAL ZINC PASTE 113 GM TP SCH ×2 (08:46→20:39)
[2023-01-26] MEDS: SERTRALINE HCL 25 MG TABLET GT SCH (08:46)
[2023-01-26] MEDS: POTASSIUM CHLORIDE 40 MEQ/30 ML LIQUID UDC GT SCH (08:46)
[2023-01-26] MEDS: HYDROGEN PEROXIDE 3% 118 ML BOTTLE TP SCH ×2 (09:11→19:16)
[2023-01-26 19:47] VITALS: TEMP 97.7
[2023-01-26] MEDS: ACIDOPHILUS/BULGARICUS CHEW TAB GT SCH (20:38)
[2023-01-26] MEDS: ASCORBIC ACID 500 MG TABLET GT SCH (20:38)
[2023-01-26] MEDS: NORMAL SALINE NASAL 45 ML BOTTLE NS SCH (20:39)
[2023-01-27] MEDS: POLYVINYL ALCOHOL OPHT DROPS 15 ML BOTTLE EACHEYE SCH ×3 (06:03→21:41)
[2023-01-27] MEDS: FAMOTIDINE 20 MG TABLET GT SCH ×2 (06:03→17:02)
[2023-01-27] MEDS: HYDROGEN PEROXIDE 3% 118 ML BOTTLE TP SCH ×2 (07:13→19:06)
[2023-01-27 07:51] VITALS: TEMP 97.7
[2023-01-27] MEDS: FUROSEMIDE 20 MG TABLET GT SCH (08:48)
[2023-01-27] MEDS: POTASSIUM CHLORIDE 40 MEQ/30 ML LIQUID UDC GT SCH (08:48)
[2023-01-27] MEDS: DIGOXIN 125 MCG TABLET GT SCH (08:48)
[2023-01-27] MEDS: levETIRAcetam 500 MG/5 ML LIQUID UDC GT SCH ×2 (08:48→21:41)
[2023-01-27] MEDS: REMEDY ESSENTIAL ZINC PASTE 113 GM TP SCH ×2 (08:49→21:41)
[2023-01-27] MEDS: SERTRALINE HCL 25 MG TABLET GT SCH (08:49)
[2023-01-27] MEDS: GLUCERNA 1.2 1000ML LIQUID GT PRN (12:51)
[2023-01-27 20:00] VITALS: TEMP 98.5
[2023-01-27] MEDS: ACIDOPHILUS/BULGARICUS CHEW TAB GT SCH (21:41)
[2023-01-27] MEDS: NORMAL SALINE NASAL 45 ML BOTTLE NS SCH (21:41)
[2023-01-27] MEDS: ASCORBIC ACID 500 MG TABLET GT SCH (21:42)
[2023-01-28] MEDS: POLYVINYL ALCOHOL OPHT DROPS 15 ML BOTTLE EACHEYE SCH ×3 (05:16→21:43)
[2023-01-28] MEDS: FAMOTIDINE 20 MG TABLET GT SCH ×2 (05:16→17:27)
[2023-01-28 07:50] VITALS: TEMP 98.2
[2023-01-28] MEDS: HYDROGEN PEROXIDE 3% 118 ML BOTTLE TP SCH ×2 (09:00→19:35)
[2023-01-28] MEDS: levETIRAcetam 500 MG/5 ML LIQUID UDC GT SCH ×2 (09:03→21:43)
[2023-01-28] MEDS: DIGOXIN 125 MCG TABLET GT SCH (09:03)
[2023-01-28] MEDS: REMEDY ESSENTIAL ZINC PASTE 113 GM TP SCH ×2 (09:03→21:43)
[2023-01-28] MEDS: FUROSEMIDE 20 MG TABLET GT SCH (09:03)
[2023-01-28] MEDS: SERTRALINE HCL 25 MG TABLET GT SCH (09:03)
[2023-01-28] MEDS: POTASSIUM CHLORIDE 40 MEQ/30 ML LIQUID UDC GT SCH (09:03)
[2023-01-28] MEDS: GLUCERNA 1.2 1000ML LIQUID GT PRN (17:27)
[2023-01-28 20:00] VITALS: TEMP 99.1
[2023-01-28] MEDS: ACIDOPHILUS/BULGARICUS CHEW TAB GT SCH (21:43)
[2023-01-28] MEDS: NORMAL SALINE NASAL 45 ML BOTTLE NS SCH (21:43)
[2023-01-28] MEDS: ASCORBIC ACID 500 MG TABLET GT SCH (21:43)
[2023-01-29] MEDS: POLYVINYL ALCOHOL OPHT DROPS 15 ML BOTTLE EACHEYE SCH ×3 (05:52→22:00)
[2023-01-29] MEDS: FAMOTIDINE 20 MG TABLET GT SCH ×2 (05:52→17:29)
[2023-01-29] MEDS ORDERED: CLOTRIMAZOLE 1% CREAM 30 GM TUBE TP PRN (07:30)
[2023-01-29] MEDS ORDERED: COD LIVER OIL/ZINC OXIDE OINT 113 GM TUBE TP PRN (07:45)
[2023-01-29 07:49] VITALS: TEMP 98
[2023-01-29] MEDS: levETIRAcetam 500 MG/5 ML LIQUID UDC GT SCH ×2 (08:40→20:41)
[2023-01-29] MEDS: REMEDY ESSENTIAL ZINC PASTE 113 GM TP SCH ×2 (08:41→20:43)
[2023-01-29] MEDS: DIGOXIN 125 MCG TABLET GT SCH (08:41)
[2023-01-29] MEDS: FUROSEMIDE 20 MG TABLET GT SCH (08:41)
[2023-01-29] MEDS: SERTRALINE HCL 25 MG TABLET GT SCH (08:41)
[2023-01-29] MEDS: POTASSIUM CHLORIDE 40 MEQ/30 ML LIQUID UDC GT SCH (08:41)
[2023-01-29] MEDS: CLOTRIMAZOLE 1% CREAM 30 GM TUBE TP SCH ×2 (09:12→20:43)
[2023-01-29] MEDS: COD LIVER OIL/ZINC OXIDE OINT 113 GM TUBE TP SCH ×2 (09:13→20:42)
[2023-01-29] MEDS: HYDROGEN PEROXIDE 3% 118 ML BOTTLE TP SCH ×2 (09:30→19:08)
[2023-01-29] MEDS: GLUCERNA 1.2 1000ML LIQUID GT PRN (14:58)
[2023-01-29 19:44] VITALS: TEMP 97.6
[2023-01-29] MEDS: ACIDOPHILUS/BULGARICUS CHEW TAB GT SCH (20:38)
[2023-01-29] MEDS: ASCORBIC ACID 500 MG TABLET GT SCH (20:42)
[2023-01-29] MEDS: NORMAL SALINE NASAL 45 ML BOTTLE NS SCH (20:42)
[2023-01-30] MEDS: FAMOTIDINE 20 MG TABLET GT SCH ×2 (05:07→17:36)
[2023-01-30] MEDS: POLYVINYL ALCOHOL OPHT DROPS 15 ML BOTTLE EACHEYE SCH ×3 (05:07→21:47)
[2023-01-30 07:31] VITALS: TEMP 98.1
[2023-01-30] MEDS: HYDROGEN PEROXIDE 3% 118 ML BOTTLE TP SCH ×2 (08:01→18:54)
[2023-01-30] MEDS: POTASSIUM CHLORIDE 40 MEQ/30 ML LIQUID UDC GT SCH (09:00)
[2023-01-30] MEDS: SERTRALINE HCL 25 MG TABLET GT SCH (09:00)
[2023-01-30] MEDS: FUROSEMIDE 20 MG TABLET GT SCH (09:00)
[2023-01-30] MEDS: REMEDY ESSENTIAL ZINC PASTE 113 GM TP SCH ×2 (09:00→20:23)
[2023-01-30] MEDS: levETIRAcetam 500 MG/5 ML LIQUID UDC GT SCH ×2 (09:00→20:21)
[2023-01-30] MEDS: CLOTRIMAZOLE 1% CREAM 30 GM TUBE TP SCH ×2 (09:00→20:23)
[2023-01-30] MEDS: DIGOXIN 125 MCG TABLET GT SCH (09:00)
[2023-01-30] MEDS: COD LIVER OIL/ZINC OXIDE OINT 113 GM TUBE TP SCH ×2 (09:00→20:23)
[2023-01-30] MEDS: GLUCERNA 1.2 1000ML LIQUID GT PRN (14:41)
[2023-01-30 19:43] VITALS: TEMP 97.8
[2023-01-30] MEDS: ASCORBIC ACID 500 MG TABLET GT SCH (20:21)
[2023-01-30] MEDS: ACIDOPHILUS/BULGARICUS CHEW TAB GT SCH (20:21)
[2023-01-30] MEDS: NORMAL SALINE NASAL 45 ML BOTTLE NS SCH (20:23)
[2023-01-31] MEDS: FAMOTIDINE 20 MG TABLET GT SCH ×2 (05:01→17:47)
[2023-01-31] MEDS: POLYVINYL ALCOHOL OPHT DROPS 15 ML BOTTLE EACHEYE SCH ×3 (05:01→21:00)
[2023-01-31 07:21] VITALS: TEMP 98.6
[2023-01-31] MEDS: levETIRAcetam 500 MG/5 ML LIQUID UDC GT SCH ×2 (08:08→20:59)
[2023-01-31] MEDS: FUROSEMIDE 20 MG TABLET GT SCH (08:08)
[2023-01-31] MEDS: POTASSIUM CHLORIDE 40 MEQ/30 ML LIQUID UDC GT SCH (08:08)
[2023-01-31] MEDS: SERTRALINE HCL 25 MG TABLET GT SCH (08:08)
[2023-01-31] MEDS: COD LIVER OIL/ZINC OXIDE OINT 113 GM TUBE TP SCH ×2 (08:08→21:00)
[2023-01-31] MEDS: DIGOXIN 125 MCG TABLET GT SCH (08:08)
[2023-01-31] MEDS: CLOTRIMAZOLE 1% CREAM 30 GM TUBE TP SCH ×2 (08:08→21:00)
[2023-01-31] MEDS: REMEDY ESSENTIAL ZINC PASTE 113 GM TP SCH ×2 (08:09→21:00)
[2023-01-31] MEDS: HYDROGEN PEROXIDE 3% 118 ML BOTTLE TP SCH ×2 (09:00→19:18)
[2023-01-31 20:00] VITALS: TEMP 97.1
[2023-01-31] MEDS: ACIDOPHILUS/BULGARICUS CHEW TAB GT SCH (20:59)
[2023-01-31] MEDS: ASCORBIC ACID 500 MG TABLET GT SCH (20:59)
[2023-01-31] MEDS: NORMAL SALINE NASAL 45 ML BOTTLE NS SCH (21:00)
[2023-02-01] MEDS: FAMOTIDINE 20 MG TABLET GT SCH ×2 (05:02→18:00)
[2023-02-01] MEDS: POLYVINYL ALCOHOL OPHT DROPS 15 ML BOTTLE EACHEYE SCH ×3 (05:02→21:46)
[2023-02-01 07:19] VITALS: TEMP 98.8
[2023-02-01] MEDS: FUROSEMIDE 20 MG TABLET GT SCH (08:12)
[2023-02-01] MEDS: DIGOXIN 125 MCG TABLET GT SCH (08:12)
[2023-02-01] MEDS: levETIRAcetam 500 MG/5 ML LIQUID UDC GT SCH ×2 (08:12→20:48)
[2023-02-01] MEDS: SERTRALINE HCL 25 MG TABLET GT SCH (08:12)
[2023-02-01] MEDS: POTASSIUM CHLORIDE 40 MEQ/30 ML LIQUID UDC GT SCH (08:12)
[2023-02-01] MEDS: COD LIVER OIL/ZINC OXIDE OINT 113 GM TUBE TP SCH ×2 (08:12→20:48)
[2023-02-01] MEDS: REMEDY ESSENTIAL ZINC PASTE 113 GM TP SCH ×2 (08:13→20:49)
[2023-02-01] MEDS: CLOTRIMAZOLE 1% CREAM 30 GM TUBE TP SCH ×2 (08:13→20:48)
[2023-02-01] MEDS: HYDROGEN PEROXIDE 3% 118 ML BOTTLE TP SCH ×2 (09:00→19:12)
[2023-02-01 20:00] VITALS: TEMP 97.8
[2023-02-01] MEDS: ASCORBIC ACID 500 MG TABLET GT SCH (20:48)
[2023-02-01] MEDS: NORMAL SALINE NASAL 45 ML BOTTLE NS SCH (20:48)
[2023-02-01] MEDS: ACIDOPHILUS/BULGARICUS CHEW TAB GT SCH (20:48)
[2023-02-02] MEDS: GLUCERNA 1.2 1000ML LIQUID GT PRN ×2 (05:03→21:17)
[2023-02-02] MEDS: POLYVINYL ALCOHOL OPHT DROPS 15 ML BOTTLE EACHEYE SCH ×3 (05:03→21:16)
[2023-02-02] MEDS: FAMOTIDINE 20 MG TABLET GT SCH ×2 (05:03→17:52)
[2023-02-02 07:30] VITALS: TEMP 98.5
[2023-02-02] MEDS: POTASSIUM CHLORIDE 40 MEQ/30 ML LIQUID UDC GT SCH (08:15)
[2023-02-02] MEDS: SERTRALINE HCL 25 MG TABLET GT SCH (08:16)
[2023-02-02] MEDS: levETIRAcetam 500 MG/5 ML LIQUID UDC GT SCH ×2 (08:17→20:08)
[2023-02-02] MEDS: FUROSEMIDE 20 MG TABLET GT SCH (08:18)
[2023-02-02] MEDS: DIGOXIN 125 MCG TABLET GT SCH (08:19)
[2023-02-02] MEDS: COD LIVER OIL/ZINC OXIDE OINT 113 GM TUBE TP SCH ×2 (08:20→20:08)
[2023-02-02] MEDS: CLOTRIMAZOLE 1% CREAM 30 GM TUBE TP SCH ×2 (08:22→20:08)
[2023-02-02] MEDS: REMEDY ESSENTIAL ZINC PASTE 113 GM TP SCH ×2 (08:22→20:08)
[2023-02-02] MEDS: HYDROGEN PEROXIDE 3% 118 ML BOTTLE TP SCH ×2 (09:00→19:07)
[2023-02-02 20:00] VITALS: TEMP 98.6
[2023-02-02] MEDS: ACIDOPHILUS/BULGARICUS CHEW TAB GT SCH (20:07)
[2023-02-02] MEDS: ASCORBIC ACID 500 MG TABLET GT SCH (20:07)
[2023-02-02] MEDS: NORMAL SALINE NASAL 45 ML BOTTLE NS SCH (20:08)
[2023-02-03] MEDS: FAMOTIDINE 20 MG TABLET GT SCH ×2 (05:02→17:56)
[2023-02-03] MEDS: POLYVINYL ALCOHOL OPHT DROPS 15 ML BOTTLE EACHEYE SCH ×3 (05:02→21:51)
[2023-02-03 06:18] VITALS: TEMP 97.6
[2023-02-03 07:20] VITALS: TEMP 98.4
[2023-02-03] MEDS: levETIRAcetam 500 MG/5 ML LIQUID UDC GT SCH ×2 (08:06→20:03)
[2023-02-03] MEDS: FUROSEMIDE 20 MG TABLET GT SCH (08:06)
[2023-02-03] MEDS: DIGOXIN 125 MCG TABLET GT SCH (08:06)
[2023-02-03] MEDS: POTASSIUM CHLORIDE 40 MEQ/30 ML LIQUID UDC GT SCH (08:06)
[2023-02-03] MEDS: CLOTRIMAZOLE 1% CREAM 30 GM TUBE TP SCH ×2 (08:07→20:04)
[2023-02-03] MEDS: SERTRALINE HCL 25 MG TABLET GT SCH (08:07)
[2023-02-03] MEDS: COD LIVER OIL/ZINC OXIDE OINT 113 GM TUBE TP SCH ×2 (08:07→20:03)
[2023-02-03] MEDS: REMEDY ESSENTIAL ZINC PASTE 113 GM TP SCH ×2 (08:07→20:04)
[2023-02-03] MEDS: HYDROGEN PEROXIDE 3% 118 ML BOTTLE TP SCH ×2 (08:39→19:09)
[2023-02-03] MEDS: GLUCERNA 1.2 1000ML LIQUID GT PRN (17:56)
[2023-02-03 20:00] VITALS: TEMP 97.8
[2023-02-03] MEDS: NORMAL SALINE NASAL 45 ML BOTTLE NS SCH (20:03)
[2023-02-03] MEDS: ACIDOPHILUS/BULGARICUS CHEW TAB GT SCH (20:03)
[2023-02-03] MEDS: ASCORBIC ACID 500 MG TABLET GT SCH (20:03)
[2023-02-04] MEDS: FAMOTIDINE 20 MG TABLET GT SCH ×2 (05:42→18:24)
[2023-02-04] MEDS: POLYVINYL ALCOHOL OPHT DROPS 15 ML BOTTLE EACHEYE SCH ×3 (05:42→21:05)
[2023-02-04] MEDS: HYDROGEN PEROXIDE 3% 118 ML BOTTLE TP SCH ×3 (07:11→19:18)
[2023-02-04 07:25] VITALS: TEMP 97.9
[2023-02-04] MEDS: levETIRAcetam 500 MG/5 ML LIQUID UDC GT SCH ×2 (08:34→21:03)
[2023-02-04] MEDS: FUROSEMIDE 20 MG TABLET GT SCH (08:41)
[2023-02-04] MEDS: DIGOXIN 125 MCG TABLET GT SCH (08:44)
[2023-02-04] MEDS: SERTRALINE HCL 25 MG TABLET GT SCH (08:46)
[2023-02-04] MEDS: COD LIVER OIL/ZINC OXIDE OINT 113 GM TUBE TP SCH ×2 (08:46→21:05)
[2023-02-04] MEDS: POTASSIUM CHLORIDE 40 MEQ/30 ML LIQUID UDC GT SCH (08:46)
[2023-02-04] MEDS: CLOTRIMAZOLE 1% CREAM 30 GM TUBE TP SCH ×2 (08:48→21:05)
[2023-02-04] MEDS: REMEDY ESSENTIAL ZINC PASTE 113 GM TP SCH ×2 (08:48→21:05)
[2023-02-04] MEDS: GLUCERNA 1.2 1000ML LIQUID GT PRN (14:14)
[2023-02-04 20:00] VITALS: TEMP 97.8; TEMP 98.3
[2023-02-04] MEDS: ACIDOPHILUS/BULGARICUS CHEW TAB GT SCH (21:03)
[2023-02-04] MEDS: ASCORBIC ACID 500 MG TABLET GT SCH (21:03)
[2023-02-04] MEDS: NORMAL SALINE NASAL 45 ML BOTTLE NS SCH (21:05)
[2023-02-05] MEDS: POLYVINYL ALCOHOL OPHT DROPS 15 ML BOTTLE EACHEYE SCH ×3 (05:58→21:51)
[2023-02-05] MEDS: FAMOTIDINE 20 MG TABLET GT SCH ×2 (05:58→18:00)
[2023-02-05 08:00] VITALS: TEMP 98
[2023-02-05] MEDS: DIGOXIN 125 MCG TABLET GT SCH (08:32)
[2023-02-05] MEDS: levETIRAcetam 500 MG/5 ML LIQUID UDC GT SCH ×2 (08:32→20:30)
[2023-02-05] MEDS: POTASSIUM CHLORIDE 40 MEQ/30 ML LIQUID UDC GT SCH (08:33)
[2023-02-05] MEDS: FUROSEMIDE 20 MG TABLET GT SCH (08:33)
[2023-02-05] MEDS: COD LIVER OIL/ZINC OXIDE OINT 113 GM TUBE TP SCH ×2 (08:34→20:30)
[2023-02-05] MEDS: CLOTRIMAZOLE 1% CREAM 30 GM TUBE TP SCH ×2 (08:34→20:30)
[2023-02-05] MEDS: SERTRALINE HCL 25 MG TABLET GT SCH (08:34)
[2023-02-05] MEDS: REMEDY ESSENTIAL ZINC PASTE 113 GM TP SCH ×2 (08:34→20:30)
[2023-02-05] MEDS: HYDROGEN PEROXIDE 3% 118 ML BOTTLE TP SCH ×2 (08:47→21:24)
[2023-02-05 20:00] VITALS: TEMP 98
[2023-02-05] MEDS: NORMAL SALINE NASAL 45 ML BOTTLE NS SCH (20:30)
[2023-02-05] MEDS: ASCORBIC ACID 500 MG TABLET GT SCH (20:30)
[2023-02-05] MEDS: ACIDOPHILUS/BULGARICUS CHEW TAB GT SCH (20:30)
[2023-02-05] MEDS: GLUCERNA 1.2 1000ML LIQUID GT PRN (21:52)
[2023-02-06] MEDS: POLYVINYL ALCOHOL OPHT DROPS 15 ML BOTTLE EACHEYE SCH ×3 (05:02→22:36)
[2023-02-06] MEDS: FAMOTIDINE 20 MG TABLET GT SCH ×2 (05:02→18:42)
[2023-02-06] MEDS: GLUCERNA 1.2 1000ML LIQUID GT PRN ×2 (05:07→22:30)
[2023-02-06 07:20] VITALS: TEMP 98.9
[2023-02-06] MEDS: COD LIVER OIL/ZINC OXIDE OINT 113 GM TUBE TP SCH ×2 (09:00→20:37)
[2023-02-06] MEDS: CLOTRIMAZOLE 1% CREAM 30 GM TUBE TP SCH ×2 (09:00→20:37)
[2023-02-06] MEDS: DIGOXIN 125 MCG TABLET GT SCH (09:00)
[2023-02-06] MEDS: POTASSIUM CHLORIDE 40 MEQ/30 ML LIQUID UDC GT SCH (09:00)
[2023-02-06] MEDS: REMEDY ESSENTIAL ZINC PASTE 113 GM TP SCH ×2 (09:00→20:37)
[2023-02-06] MEDS: SERTRALINE HCL 25 MG TABLET GT SCH (09:00)
[2023-02-06] MEDS: FUROSEMIDE 20 MG TABLET GT SCH (09:00)
[2023-02-06] MEDS: HYDROGEN PEROXIDE 3% 118 ML BOTTLE TP SCH ×2 (09:36→21:44)
[2023-02-06] MEDS: levETIRAcetam 500 MG/5 ML LIQUID UDC GT SCH ×2 (09:58→20:36)
[2023-02-06 20:00] VITALS: TEMP 98
[2023-02-06] MEDS: ASCORBIC ACID 500 MG TABLET GT SCH (20:36)
[2023-02-06] MEDS: ACIDOPHILUS/BULGARICUS CHEW TAB GT SCH (20:36)
[2023-02-06] MEDS: NORMAL SALINE NASAL 45 ML BOTTLE NS SCH (20:37)
[2023-02-07] MEDS: FAMOTIDINE 20 MG TABLET GT SCH ×2 (06:01→17:46)
[2023-02-07] MEDS: POLYVINYL ALCOHOL OPHT DROPS 15 ML BOTTLE EACHEYE SCH ×3 (06:01→22:11)
[2023-02-07 07:24] VITALS: TEMP 98.4
[2023-02-07] MEDS: COD LIVER OIL/ZINC OXIDE OINT 113 GM TUBE TP SCH ×2 (09:00→20:03)
[2023-02-07] MEDS: DIGOXIN 125 MCG TABLET GT SCH (09:00)
[2023-02-07] MEDS: HYDROGEN PEROXIDE 3% 118 ML BOTTLE TP SCH ×2 (09:00→19:18)
[2023-02-07] MEDS: REMEDY ESSENTIAL ZINC PASTE 113 GM TP SCH ×2 (09:00→20:03)
[2023-02-07] MEDS: CLOTRIMAZOLE 1% CREAM 30 GM TUBE TP SCH ×2 (09:00→20:03)
[2023-02-07] MEDS: POTASSIUM CHLORIDE 40 MEQ/30 ML LIQUID UDC GT SCH (09:00)
[2023-02-07] MEDS: levETIRAcetam 500 MG/5 ML LIQUID UDC GT SCH ×2 (09:00→20:02)
[2023-02-07] MEDS: FUROSEMIDE 20 MG TABLET GT SCH (09:00)
[2023-02-07] MEDS: SERTRALINE HCL 25 MG TABLET GT SCH (09:00)
[2023-02-07 20:00] VITALS: TEMP 98.2
[2023-02-07] MEDS: ASCORBIC ACID 500 MG TABLET GT SCH (20:02)
[2023-02-07] MEDS: ACIDOPHILUS/BULGARICUS CHEW TAB GT SCH (20:02)
[2023-02-07] MEDS: NORMAL SALINE NASAL 45 ML BOTTLE NS SCH (20:03)
[2023-02-08] MEDS: FAMOTIDINE 20 MG TABLET GT SCH ×2 (05:17→17:09)
[2023-02-08] MEDS: POLYVINYL ALCOHOL OPHT DROPS 15 ML BOTTLE EACHEYE SCH ×3 (05:17→22:30)
[2023-02-08 08:00] VITALS: TEMP 97.5
[2023-02-08] MEDS: HYDROGEN PEROXIDE 3% 118 ML BOTTLE TP SCH ×2 (09:10→19:15)
[2023-02-08] MEDS: levETIRAcetam 500 MG/5 ML LIQUID UDC GT SCH ×2 (09:14→20:00)
[2023-02-08] MEDS: DIGOXIN 125 MCG TABLET GT SCH (09:14)
[2023-02-08] MEDS: FUROSEMIDE 20 MG TABLET GT SCH (09:14)
[2023-02-08] MEDS: CLOTRIMAZOLE 1% CREAM 30 GM TUBE TP SCH ×2 (09:14→20:00)
[2023-02-08] MEDS: SERTRALINE HCL 25 MG TABLET GT SCH (09:14)
[2023-02-08] MEDS: POTASSIUM CHLORIDE 40 MEQ/30 ML LIQUID UDC GT SCH (09:14)
[2023-02-08] MEDS: COD LIVER OIL/ZINC OXIDE OINT 113 GM TUBE TP SCH ×2 (09:14→20:00)
[2023-02-08] MEDS: REMEDY ESSENTIAL ZINC PASTE 113 GM TP SCH ×2 (09:15→20:00)
[2023-02-08 11:00] VITALS: O2SAT 99
[2023-02-08] MEDS: GLUCERNA 1.2 1000ML LIQUID GT PRN (17:09)
[2023-02-08 20:00] VITALS: TEMP 98.2
[2023-02-08] MEDS: NORMAL SALINE NASAL 45 ML BOTTLE NS SCH (20:00)
[2023-02-08] MEDS: ACIDOPHILUS/BULGARICUS CHEW TAB GT SCH (20:00)
[2023-02-08] MEDS: ASCORBIC ACID 500 MG TABLET GT SCH (20:00)
[2023-02-09] MEDS: POLYVINYL ALCOHOL OPHT DROPS 15 ML BOTTLE EACHEYE SCH ×3 (05:07→22:15)
[2023-02-09] MEDS: FAMOTIDINE 20 MG TABLET GT SCH ×2 (05:07→17:03)
[2023-02-09 08:00] VITALS: TEMP 97.9
[2023-02-09] MEDS: HYDROGEN PEROXIDE 3% 118 ML BOTTLE TP SCH ×2 (09:00→21:55)
[2023-02-09] MEDS: levETIRAcetam 500 MG/5 ML LIQUID UDC GT SCH ×2 (09:05→20:03)
[2023-02-09] MEDS: FUROSEMIDE 20 MG TABLET GT SCH (09:05)
[2023-02-09] MEDS: POTASSIUM CHLORIDE 40 MEQ/30 ML LIQUID UDC GT SCH (09:05)
[2023-02-09] MEDS: DIGOXIN 125 MCG TABLET GT SCH (09:05)
[2023-02-09] MEDS: REMEDY ESSENTIAL ZINC PASTE 113 GM TP SCH ×2 (09:06→20:03)
[2023-02-09] MEDS: SERTRALINE HCL 25 MG TABLET GT SCH (09:06)
[2023-02-09] MEDS: CLOTRIMAZOLE 1% CREAM 30 GM TUBE TP SCH ×2 (09:06→20:03)
[2023-02-09] MEDS: COD LIVER OIL/ZINC OXIDE OINT 113 GM TUBE TP SCH ×2 (09:06→20:03)
[2023-02-09] MEDS: GLUCERNA 1.2 1000ML LIQUID GT PRN (17:04)
[2023-02-09] MEDS: ACIDOPHILUS/BULGARICUS CHEW TAB GT SCH (20:03)
[2023-02-09] MEDS: NORMAL SALINE NASAL 45 ML BOTTLE NS SCH (20:03)
[2023-02-09] MEDS: ASCORBIC ACID 500 MG TABLET GT SCH (20:03)
[2023-02-09 20:18] VITALS: TEMP 97.4; TEMP 97.7
[2023-02-10] MEDS: FAMOTIDINE 20 MG TABLET GT SCH ×2 (05:01→18:47)
[2023-02-10] MEDS: POLYVINYL ALCOHOL OPHT DROPS 15 ML BOTTLE EACHEYE SCH ×3 (05:01→21:00)
[2023-02-10 07:06] LABS: BASOPHILS % (AUTO) 0.7 % (0.0-2.0); CALCIUM 9.1 mg/dL (8.5-10.1); CREATININE 0.7 mg/dL (0.6-1.3); EOSINOPHILS # (AUTO) 0.3 K/uL (0.0-0.7); EOSINOPHILS % (AUTO) 5.5 % (0.0-7.0); HEMATOCRIT 37.4 % (31.2-41.9); HEMOGLOBIN 12.6 g/dL (10.9-14.3); LYMPHOCYTES # (AUTO) 1.5 K/uL (0.8-4.8); LYMPHOCYTES % (AUTO) 31.2 % (20.5-51.5); MAGNESIUM 2.3 mg/dL (1.8-2.4); MEAN CORPUSCULAR HEMOGLOBIN 30.4 uug (24.7-32.8); MEAN CORPUSCULAR HGB CONC 34 g/dL (32.3-35.6); MEAN CORPUSCULAR VOLUME 89.9 fL (75.5-95.3); MONOCYTES # (AUTO) 0.6 K/uL (0.1-1.30); MONOCYTES % (AUTO) 11.5 % (0.0-11.0); NEUTROPHILS # (AUTO) 2.5 K/uL (1.8-8.9); NEUTROPHILS % (AUTO) 51.1 % (38.5-71.5); PHOSPHOROUS 3.6 mg/dL (2.5-4.9); PLATELET COUNT (AUTO) 132 K/uL (179-408); POTASSIUM 3.9 mmol/L (3.5-5.1); RED BLOOD CELL COUNT(AUTO) 4.16 MIL/uL (3.63-4.92); RED CELL DISTRIBUTION WIDTH 15.3 % (12.3-17.7); WHITE BLOOD COUNT (AUTO) 4.9 K/uL (3.8-11.8)
[2023-02-10 07:08] LABS: DIFFERENTIAL COMMENT 1
[2023-02-10] MEDS: FUROSEMIDE 20 MG TABLET GT SCH (08:32)
[2023-02-10] MEDS: COD LIVER OIL/ZINC OXIDE OINT 113 GM TUBE TP SCH ×2 (08:32→20:55)
[2023-02-10] MEDS: DIGOXIN 125 MCG TABLET GT SCH (08:32)
[2023-02-10] MEDS: POTASSIUM CHLORIDE 40 MEQ/30 ML LIQUID UDC GT SCH (08:32)
[2023-02-10] MEDS: levETIRAcetam 500 MG/5 ML LIQUID UDC GT SCH ×2 (08:32→20:54)
[2023-02-10] MEDS: SERTRALINE HCL 25 MG TABLET GT SCH (08:32)
[2023-02-10] MEDS: CLOTRIMAZOLE 1% CREAM 30 GM TUBE TP SCH ×2 (08:33→20:55)
[2023-02-10] MEDS: REMEDY ESSENTIAL ZINC PASTE 113 GM TP SCH ×2 (08:33→20:55)
[2023-02-10 08:54] VITALS: TEMP 98.8
[2023-02-10] MEDS: HYDROGEN PEROXIDE 3% 118 ML BOTTLE TP SCH ×2 (09:00→19:05)
[2023-02-10 19:42] VITALS: TEMP 98.1
[2023-02-10] MEDS: ACIDOPHILUS/BULGARICUS CHEW TAB GT SCH (20:54)
[2023-02-10] MEDS: ASCORBIC ACID 500 MG TABLET GT SCH (20:54)
[2023-02-10] MEDS: NORMAL SALINE NASAL 45 ML BOTTLE NS SCH (20:55)
[2023-02-11] MEDS: FAMOTIDINE 20 MG TABLET GT SCH ×2 (06:00→18:27)
[2023-02-11] MEDS: POLYVINYL ALCOHOL OPHT DROPS 15 ML BOTTLE EACHEYE SCH ×3 (06:00→21:26)
[2023-02-11 08:00] VITALS: TEMP 96.9
[2023-02-11] MEDS: HYDROGEN PEROXIDE 3% 118 ML BOTTLE TP SCH ×2 (08:04→19:04)
[2023-02-11] MEDS: COD LIVER OIL/ZINC OXIDE OINT 113 GM TUBE TP SCH ×2 (09:00→21:26)
[2023-02-11] MEDS: REMEDY ESSENTIAL ZINC PASTE 113 GM TP SCH ×2 (09:00→21:26)
[2023-02-11] MEDS: CLOTRIMAZOLE 1% CREAM 30 GM TUBE TP SCH ×2 (09:00→21:26)
[2023-02-11] MEDS: levETIRAcetam 500 MG/5 ML LIQUID UDC GT SCH ×2 (09:01→21:26)
[2023-02-11] MEDS: DIGOXIN 125 MCG TABLET GT SCH (09:02)
[2023-02-11] MEDS: POTASSIUM CHLORIDE 40 MEQ/30 ML LIQUID UDC GT SCH (09:03)
[2023-02-11] MEDS: SERTRALINE HCL 25 MG TABLET GT SCH (09:03)
[2023-02-11] MEDS: FUROSEMIDE 20 MG TABLET GT SCH (09:03)
[2023-02-11] MEDS: GLUCERNA 1.2 1000ML LIQUID GT PRN (12:39)
[2023-02-11 20:00] VITALS: TEMP 97.8
[2023-02-11] MEDS: ASCORBIC ACID 500 MG TABLET GT SCH (21:26)
[2023-02-11] MEDS: ACIDOPHILUS/BULGARICUS CHEW TAB GT SCH (21:26)
[2023-02-11] MEDS: NORMAL SALINE NASAL 45 ML BOTTLE NS SCH (21:26)
[2023-02-12] MEDS: FAMOTIDINE 20 MG TABLET GT SCH ×2 (05:32→18:16)
[2023-02-12] MEDS: POLYVINYL ALCOHOL OPHT DROPS 15 ML BOTTLE EACHEYE SCH ×3 (05:32→21:19)
[2023-02-12 07:39] VITALS: TEMP 99.1
[2023-02-12 08:15] VITALS: TEMP 98.7
[2023-02-12] MEDS: levETIRAcetam 500 MG/5 ML LIQUID UDC GT SCH ×2 (08:31→21:18)
[2023-02-12] MEDS: COD LIVER OIL/ZINC OXIDE OINT 113 GM TUBE TP SCH ×2 (08:32→21:19)
[2023-02-12] MEDS: DIGOXIN 125 MCG TABLET GT SCH (08:32)
[2023-02-12] MEDS: FUROSEMIDE 20 MG TABLET GT SCH (08:32)
[2023-02-12] MEDS: SERTRALINE HCL 25 MG TABLET GT SCH (08:32)
[2023-02-12] MEDS: POTASSIUM CHLORIDE 40 MEQ/30 ML LIQUID UDC GT SCH (08:32)
[2023-02-12] MEDS: REMEDY ESSENTIAL ZINC PASTE 113 GM TP SCH ×2 (08:33→21:19)
[2023-02-12] MEDS: CLOTRIMAZOLE 1% CREAM 30 GM TUBE TP SCH ×2 (09:00→21:19)
[2023-02-12] MEDS: HYDROGEN PEROXIDE 3% 118 ML BOTTLE TP SCH ×2 (09:33→19:05)
[2023-02-12] MEDS: GLUCERNA 1.2 1000ML LIQUID GT PRN (13:30)
[2023-02-12 20:00] VITALS: TEMP 98.8
[2023-02-12] MEDS: NORMAL SALINE NASAL 45 ML BOTTLE NS SCH (21:18)
[2023-02-12] MEDS: ACIDOPHILUS/BULGARICUS CHEW TAB GT SCH (21:18)
[2023-02-12] MEDS: ASCORBIC ACID 500 MG TABLET GT SCH (21:18)
[2023-02-13] MEDS: FAMOTIDINE 20 MG TABLET GT SCH ×2 (06:00→17:25)
[2023-02-13] MEDS: POLYVINYL ALCOHOL OPHT DROPS 15 ML BOTTLE EACHEYE SCH ×3 (06:00→22:00)
[2023-02-13] MEDS: HYDROGEN PEROXIDE 3% 118 ML BOTTLE TP SCH ×2 (07:05→19:08)
[2023-02-13 07:15] VITALS: TEMP 98.5
[2023-02-13] MEDS: levETIRAcetam 500 MG/5 ML LIQUID UDC GT SCH ×2 (09:07→20:58)
[2023-02-13] MEDS: DIGOXIN 125 MCG TABLET GT SCH (09:07)
[2023-02-13] MEDS: POTASSIUM CHLORIDE 40 MEQ/30 ML LIQUID UDC GT SCH (09:07)
[2023-02-13] MEDS: FUROSEMIDE 20 MG TABLET GT SCH (09:07)
[2023-02-13] MEDS: SERTRALINE HCL 25 MG TABLET GT SCH (09:08)
[2023-02-13] MEDS: COD LIVER OIL/ZINC OXIDE OINT 113 GM TUBE TP SCH ×2 (09:08→20:58)
[2023-02-13] MEDS: REMEDY ESSENTIAL ZINC PASTE 113 GM TP SCH ×2 (09:08→20:58)
[2023-02-13] MEDS: CLOTRIMAZOLE 1% CREAM 30 GM TUBE TP SCH ×2 (09:08→20:58)
[2023-02-13 20:18] VITALS: TEMP 98.4
[2023-02-13] MEDS: ASCORBIC ACID 500 MG TABLET GT SCH (20:58)
[2023-02-13] MEDS: ACIDOPHILUS/BULGARICUS CHEW TAB GT SCH (20:58)
[2023-02-13] MEDS: NORMAL SALINE NASAL 45 ML BOTTLE NS SCH (20:58)
[2023-02-14] MEDS: POLYVINYL ALCOHOL OPHT DROPS 15 ML BOTTLE EACHEYE SCH ×3 (06:05→21:17)
[2023-02-14] MEDS: FAMOTIDINE 20 MG TABLET GT SCH ×2 (06:06→18:24)
[2023-02-14] MEDS: GLUCERNA 1.2 1000ML LIQUID GT PRN (06:06)
[2023-02-14 07:15] VITALS: TEMP 98.8
[2023-02-14] MEDS: HYDROGEN PEROXIDE 3% 118 ML BOTTLE TP SCH ×2 (07:34→21:00)
[2023-02-14] MEDS: DIGOXIN 125 MCG TABLET GT SCH (08:40)
[2023-02-14] MEDS: POTASSIUM CHLORIDE 40 MEQ/30 ML LIQUID UDC GT SCH (08:40)
[2023-02-14] MEDS: COD LIVER OIL/ZINC OXIDE OINT 113 GM TUBE TP SCH ×2 (08:40→20:34)
[2023-02-14] MEDS: CLOTRIMAZOLE 1% CREAM 30 GM TUBE TP SCH ×2 (08:40→20:34)
[2023-02-14] MEDS: REMEDY ESSENTIAL ZINC PASTE 113 GM TP SCH ×2 (08:40→20:34)
[2023-02-14] MEDS: levETIRAcetam 500 MG/5 ML LIQUID UDC GT SCH ×2 (08:40→20:34)
[2023-02-14] MEDS: FUROSEMIDE 20 MG TABLET GT SCH (08:40)
[2023-02-14] MEDS: SERTRALINE HCL 25 MG TABLET GT SCH (08:40)
[2023-02-14 19:54] VITALS: TEMP 96.9
[2023-02-14] MEDS: NORMAL SALINE NASAL 45 ML BOTTLE NS SCH (20:34)
[2023-02-14] MEDS: ASCORBIC ACID 500 MG TABLET GT SCH (20:34)
[2023-02-14] MEDS: ACIDOPHILUS/BULGARICUS CHEW TAB GT SCH (20:34)
[2023-02-15] MEDS: FAMOTIDINE 20 MG TABLET GT SCH ×2 (05:02→17:43)
[2023-02-15] MEDS: POLYVINYL ALCOHOL OPHT DROPS 15 ML BOTTLE EACHEYE SCH ×3 (05:02→21:25)
[2023-02-15] MEDS: GLUCERNA 1.2 1000ML LIQUID GT PRN (05:03)
[2023-02-15 07:28] VITALS: TEMP 97.8
[2023-02-15] MEDS: HYDROGEN PEROXIDE 3% 118 ML BOTTLE TP SCH ×2 (08:38→20:53)
[2023-02-15] MEDS: FUROSEMIDE 20 MG TABLET GT SCH (09:49)
[2023-02-15] MEDS: DIGOXIN 125 MCG TABLET GT SCH (09:49)
[2023-02-15] MEDS: levETIRAcetam 500 MG/5 ML LIQUID UDC GT SCH ×2 (09:49→20:00)
[2023-02-15] MEDS: CLOTRIMAZOLE 1% CREAM 30 GM TUBE TP SCH ×2 (09:50→20:01)
[2023-02-15] MEDS: REMEDY ESSENTIAL ZINC PASTE 113 GM TP SCH ×2 (09:50→20:01)
[2023-02-15] MEDS: COD LIVER OIL/ZINC OXIDE OINT 113 GM TUBE TP SCH ×2 (09:50→20:01)
[2023-02-15] MEDS: SERTRALINE HCL 25 MG TABLET GT SCH (09:50)
[2023-02-15] MEDS: POTASSIUM CHLORIDE 40 MEQ/30 ML LIQUID UDC GT SCH (09:50)
[2023-02-15 20:00] VITALS: TEMP 98.5
[2023-02-15] MEDS: ACIDOPHILUS/BULGARICUS CHEW TAB GT SCH (20:00)
[2023-02-15] MEDS: ASCORBIC ACID 500 MG TABLET GT SCH (20:01)
[2023-02-15] MEDS: NORMAL SALINE NASAL 45 ML BOTTLE NS SCH (20:01)
[2023-02-16] MEDS: POLYVINYL ALCOHOL OPHT DROPS 15 ML BOTTLE EACHEYE SCH ×3 (05:20→21:51)
[2023-02-16] MEDS: FAMOTIDINE 20 MG TABLET GT SCH ×2 (05:20→17:42)
[2023-02-16 07:19] VITALS: TEMP 98.5
[2023-02-16] MEDS: levETIRAcetam 500 MG/5 ML LIQUID UDC GT SCH ×2 (08:50→20:08)
[2023-02-16] MEDS: DIGOXIN 125 MCG TABLET GT SCH (08:54)
[2023-02-16] MEDS: FUROSEMIDE 20 MG TABLET GT SCH (08:54)
[2023-02-16] MEDS: SERTRALINE HCL 25 MG TABLET GT SCH (08:56)
[2023-02-16] MEDS: COD LIVER OIL/ZINC OXIDE OINT 113 GM TUBE TP SCH ×2 (08:56→20:09)
[2023-02-16] MEDS: POTASSIUM CHLORIDE 40 MEQ/30 ML LIQUID UDC GT SCH (08:56)
[2023-02-16] MEDS: REMEDY ESSENTIAL ZINC PASTE 113 GM TP SCH ×2 (08:57→20:09)
[2023-02-16] MEDS: CLOTRIMAZOLE 1% CREAM 30 GM TUBE TP SCH ×2 (08:57→20:09)
[2023-02-16] MEDS: HYDROGEN PEROXIDE 3% 118 ML BOTTLE TP SCH ×2 (09:29→19:13)
[2023-02-16 19:52] VITALS: TEMP 98
[2023-02-16] MEDS: ACIDOPHILUS/BULGARICUS CHEW TAB GT SCH (20:07)
[2023-02-16] MEDS: ASCORBIC ACID 500 MG TABLET GT SCH (20:09)
[2023-02-16] MEDS: NORMAL SALINE NASAL 45 ML BOTTLE NS SCH (20:09)
[2023-02-17] MEDS: FAMOTIDINE 20 MG TABLET GT SCH ×2 (05:01→17:54)
[2023-02-17] MEDS: POLYVINYL ALCOHOL OPHT DROPS 15 ML BOTTLE EACHEYE SCH ×3 (05:01→22:48)
[2023-02-17 07:21] VITALS: TEMP 98.8
[2023-02-17] MEDS: levETIRAcetam 500 MG/5 ML LIQUID UDC GT SCH ×2 (08:56→20:09)
[2023-02-17] MEDS: SERTRALINE HCL 25 MG TABLET GT SCH (08:57)
[2023-02-17] MEDS: DIGOXIN 125 MCG TABLET GT SCH (08:57)
[2023-02-17] MEDS: POTASSIUM CHLORIDE 40 MEQ/30 ML LIQUID UDC GT SCH (08:57)
[2023-02-17] MEDS: COD LIVER OIL/ZINC OXIDE OINT 113 GM TUBE TP SCH ×2 (08:57→20:09)
[2023-02-17] MEDS: REMEDY ESSENTIAL ZINC PASTE 113 GM TP SCH ×2 (08:57→20:09)
[2023-02-17] MEDS: CLOTRIMAZOLE 1% CREAM 30 GM TUBE TP SCH ×2 (08:57→20:09)
[2023-02-17] MEDS: FUROSEMIDE 20 MG TABLET GT SCH (08:57)
[2023-02-17] MEDS: HYDROGEN PEROXIDE 3% 118 ML BOTTLE TP SCH ×2 (09:28→21:16)
[2023-02-17 20:00] VITALS: TEMP 97.6
[2023-02-17] MEDS: ACIDOPHILUS/BULGARICUS CHEW TAB GT SCH (20:09)
[2023-02-17] MEDS: ASCORBIC ACID 500 MG TABLET GT SCH (20:09)
[2023-02-17] MEDS: NORMAL SALINE NASAL 45 ML BOTTLE NS SCH (20:09)
[2023-02-18] MEDS: POLYVINYL ALCOHOL OPHT DROPS 15 ML BOTTLE EACHEYE SCH ×3 (05:06→21:07)
[2023-02-18] MEDS: FAMOTIDINE 20 MG TABLET GT SCH ×2 (05:06→17:01)
[2023-02-18] MEDS: GLUCERNA 1.2 1000ML LIQUID GT PRN ×2 (05:07→18:51)
[2023-02-18] MEDS: HYDROGEN PEROXIDE 3% 118 ML BOTTLE TP SCH ×2 (07:05→19:14)
[2023-02-18 08:00] VITALS: TEMP 97.6
[2023-02-18] MEDS: levETIRAcetam 500 MG/5 ML LIQUID UDC GT SCH ×2 (08:16→20:57)
[2023-02-18] MEDS: DIGOXIN 125 MCG TABLET GT SCH (08:17)
[2023-02-18] MEDS: POTASSIUM CHLORIDE 40 MEQ/30 ML LIQUID UDC GT SCH (08:17)
[2023-02-18] MEDS: CLOTRIMAZOLE 1% CREAM 30 GM TUBE TP SCH ×2 (08:17→20:58)
[2023-02-18] MEDS: COD LIVER OIL/ZINC OXIDE OINT 113 GM TUBE TP SCH ×2 (08:17→20:57)
[2023-02-18] MEDS: SERTRALINE HCL 25 MG TABLET GT SCH (08:17)
[2023-02-18] MEDS: REMEDY ESSENTIAL ZINC PASTE 113 GM TP SCH ×2 (08:17→20:58)
[2023-02-18] MEDS: FUROSEMIDE 20 MG TABLET GT SCH (08:17)
[2023-02-18 20:00] VITALS: TEMP 97.6
[2023-02-18] MEDS: ACIDOPHILUS/BULGARICUS CHEW TAB GT SCH (20:57)
[2023-02-18] MEDS: ASCORBIC ACID 500 MG TABLET GT SCH (20:57)
[2023-02-18] MEDS: NORMAL SALINE NASAL 45 ML BOTTLE NS SCH (20:57)
[2023-02-19] MEDS: FAMOTIDINE 20 MG TABLET GT SCH ×2 (05:32→17:12)
[2023-02-19] MEDS: POLYVINYL ALCOHOL OPHT DROPS 15 ML BOTTLE EACHEYE SCH ×3 (05:32→22:02)
[2023-02-19 07:25] VITALS: TEMP 98
[2023-02-19] MEDS: levETIRAcetam 500 MG/5 ML LIQUID UDC GT SCH ×2 (08:33→20:11)
[2023-02-19] MEDS: FUROSEMIDE 20 MG TABLET GT SCH (08:34)
[2023-02-19] MEDS: DIGOXIN 125 MCG TABLET GT SCH (08:34)
[2023-02-19] MEDS: SERTRALINE HCL 25 MG TABLET GT SCH (08:35)
[2023-02-19] MEDS: POTASSIUM CHLORIDE 40 MEQ/30 ML LIQUID UDC GT SCH (08:35)
[2023-02-19] MEDS: COD LIVER OIL/ZINC OXIDE OINT 113 GM TUBE TP SCH ×2 (08:37→20:11)
[2023-02-19] MEDS: REMEDY ESSENTIAL ZINC PASTE 113 GM TP SCH ×2 (08:37→20:11)
[2023-02-19] MEDS: CLOTRIMAZOLE 1% CREAM 30 GM TUBE TP SCH ×2 (08:37→20:11)
[2023-02-19] MEDS: HYDROGEN PEROXIDE 3% 118 ML BOTTLE TP SCH ×2 (09:55→19:11)
[2023-02-19] MEDS: GLUCERNA 1.2 1000ML LIQUID GT PRN (18:30)
[2023-02-19 19:52] VITALS: TEMP 97.3
[2023-02-19] MEDS: ACIDOPHILUS/BULGARICUS CHEW TAB GT SCH (20:10)
[2023-02-19] MEDS: ASCORBIC ACID 500 MG TABLET GT SCH (20:11)
[2023-02-19] MEDS: NORMAL SALINE NASAL 45 ML BOTTLE NS SCH (20:11)
[2023-02-20] MEDS: FAMOTIDINE 20 MG TABLET GT SCH ×2 (05:06→17:50)
[2023-02-20] MEDS: POLYVINYL ALCOHOL OPHT DROPS 15 ML BOTTLE EACHEYE SCH ×3 (05:06→21:34)
[2023-02-20 07:25] VITALS: TEMP 98.7
[2023-02-20] MEDS: HYDROGEN PEROXIDE 3% 118 ML BOTTLE TP SCH ×2 (08:23→19:06)
[2023-02-20] MEDS: levETIRAcetam 500 MG/5 ML LIQUID UDC GT SCH ×2 (09:44→20:23)
[2023-02-20] MEDS: FUROSEMIDE 20 MG TABLET GT SCH (09:45)
[2023-02-20] MEDS: DIGOXIN 125 MCG TABLET GT SCH (09:45)
[2023-02-20] MEDS: POTASSIUM CHLORIDE 40 MEQ/30 ML LIQUID UDC GT SCH (09:45)
[2023-02-20] MEDS: COD LIVER OIL/ZINC OXIDE OINT 113 GM TUBE TP SCH ×2 (09:46→20:23)
[2023-02-20] MEDS: CLOTRIMAZOLE 1% CREAM 30 GM TUBE TP SCH ×2 (09:46→20:24)
[2023-02-20] MEDS: SERTRALINE HCL 25 MG TABLET GT SCH (09:46)
[2023-02-20] MEDS: REMEDY ESSENTIAL ZINC PASTE 113 GM TP SCH ×2 (09:47→20:25)
[2023-02-20] MEDS: GLUCERNA 1.2 1000ML LIQUID GT PRN (16:37)
[2023-02-20 20:00] VITALS: TEMP 96.9
[2023-02-20] MEDS: ACIDOPHILUS/BULGARICUS CHEW TAB GT SCH (20:23)
[2023-02-20] MEDS: NORMAL SALINE NASAL 45 ML BOTTLE NS SCH (20:26)
[2023-02-20] MEDS: ASCORBIC ACID 500 MG TABLET GT SCH (20:26)
[2023-02-21] MEDS: POLYVINYL ALCOHOL OPHT DROPS 15 ML BOTTLE EACHEYE SCH ×3 (05:34→21:03)
[2023-02-21] MEDS: FAMOTIDINE 20 MG TABLET GT SCH ×2 (05:34→18:35)
[2023-02-21 07:22] VITALS: TEMP 98.6
[2023-02-21] MEDS: HYDROGEN PEROXIDE 3% 118 ML BOTTLE TP SCH ×2 (09:00→19:10)
[2023-02-21] MEDS: levETIRAcetam 500 MG/5 ML LIQUID UDC GT SCH ×2 (09:30→21:02)
[2023-02-21] MEDS: FUROSEMIDE 20 MG TABLET GT SCH (09:31)
[2023-02-21] MEDS: SERTRALINE HCL 25 MG TABLET GT SCH (09:31)
[2023-02-21] MEDS: DIGOXIN 125 MCG TABLET GT SCH (09:31)
[2023-02-21] MEDS: COD LIVER OIL/ZINC OXIDE OINT 113 GM TUBE TP SCH ×2 (09:32→21:02)
[2023-02-21] MEDS: POTASSIUM CHLORIDE 40 MEQ/30 ML LIQUID UDC GT SCH (09:32)
[2023-02-21] MEDS: CLOTRIMAZOLE 1% CREAM 30 GM TUBE TP SCH ×2 (09:33→21:03)
[2023-02-21] MEDS: REMEDY ESSENTIAL ZINC PASTE 113 GM TP SCH ×2 (09:33→21:03)
[2023-02-21] MEDS: GLUCERNA 1.2 1000ML LIQUID GT PRN (16:49)
[2023-02-21 20:15] VITALS: TEMP 97.8
[2023-02-21] MEDS: ASCORBIC ACID 500 MG TABLET GT SCH (21:02)
[2023-02-21] MEDS: NORMAL SALINE NASAL 45 ML BOTTLE NS SCH (21:02)
[2023-02-21] MEDS: ACIDOPHILUS/BULGARICUS CHEW TAB GT SCH (21:02)
[2023-02-22] MEDS: FAMOTIDINE 20 MG TABLET GT SCH ×2 (05:00→17:49)
[2023-02-22] MEDS: POLYVINYL ALCOHOL OPHT DROPS 15 ML BOTTLE EACHEYE SCH ×3 (05:00→22:44)
[2023-02-22] MEDS: HYDROGEN PEROXIDE 3% 118 ML BOTTLE TP SCH ×2 (07:51→19:12)
[2023-02-22 08:00] VITALS: TEMP 98.2
[2023-02-22] MEDS: levETIRAcetam 500 MG/5 ML LIQUID UDC GT SCH ×2 (08:58→20:49)
[2023-02-22] MEDS: FUROSEMIDE 20 MG TABLET GT SCH (08:59)
[2023-02-22] MEDS: POTASSIUM CHLORIDE 40 MEQ/30 ML LIQUID UDC GT SCH (08:59)
[2023-02-22] MEDS: DIGOXIN 125 MCG TABLET GT SCH (08:59)
[2023-02-22] MEDS: CLOTRIMAZOLE 1% CREAM 30 GM TUBE TP SCH ×2 (09:00→20:50)
[2023-02-22] MEDS: SERTRALINE HCL 25 MG TABLET GT SCH (09:00)
[2023-02-22] MEDS: COD LIVER OIL/ZINC OXIDE OINT 113 GM TUBE TP SCH ×2 (09:00→20:49)
[2023-02-22] MEDS: REMEDY ESSENTIAL ZINC PASTE 113 GM TP SCH ×2 (09:01→20:50)
[2023-02-22 20:00] VITALS: TEMP 98.2
[2023-02-22] MEDS: ACIDOPHILUS/BULGARICUS CHEW TAB GT SCH (20:49)
[2023-02-22] MEDS: NORMAL SALINE NASAL 45 ML BOTTLE NS SCH (20:49)
[2023-02-22] MEDS: ASCORBIC ACID 500 MG TABLET GT SCH (20:49)
[2023-02-23] MEDS: POLYVINYL ALCOHOL OPHT DROPS 15 ML BOTTLE EACHEYE SCH ×3 (06:06→21:33)
[2023-02-23] MEDS: FAMOTIDINE 20 MG TABLET GT SCH ×2 (06:06→18:12)
[2023-02-23] MEDS: HYDROGEN PEROXIDE 3% 118 ML BOTTLE TP SCH ×2 (07:51→20:51)
[2023-02-23 08:00] VITALS: TEMP 98.4
[2023-02-23] MEDS: REMEDY ESSENTIAL ZINC PASTE 113 GM TP SCH ×2 (09:00→20:08)
[2023-02-23] MEDS: CLOTRIMAZOLE 1% CREAM 30 GM TUBE TP SCH ×2 (09:00→20:08)
[2023-02-23] MEDS: levETIRAcetam 500 MG/5 ML LIQUID UDC GT SCH ×2 (09:01→20:08)
[2023-02-23] MEDS: DIGOXIN 125 MCG TABLET GT SCH (09:02)
[2023-02-23] MEDS: FUROSEMIDE 20 MG TABLET GT SCH (09:03)
[2023-02-23] MEDS: POTASSIUM CHLORIDE 40 MEQ/30 ML LIQUID UDC GT SCH (09:04)
[2023-02-23] MEDS: SERTRALINE HCL 25 MG TABLET GT SCH (09:05)
[2023-02-23] MEDS: COD LIVER OIL/ZINC OXIDE OINT 113 GM TUBE TP SCH ×2 (09:05→20:08)
[2023-02-23 20:00] VITALS: TEMP 98.4
[2023-02-23] MEDS: ACIDOPHILUS/BULGARICUS CHEW TAB GT SCH (20:08)
[2023-02-23] MEDS: ASCORBIC ACID 500 MG TABLET GT SCH (20:08)
[2023-02-23] MEDS: NORMAL SALINE NASAL 45 ML BOTTLE NS SCH (20:08)
[2023-02-24] MEDS: FAMOTIDINE 20 MG TABLET GT SCH ×2 (05:17→18:10)
[2023-02-24] MEDS: GLUCERNA 1.2 1000ML LIQUID GT PRN (05:17)
[2023-02-24] MEDS: POLYVINYL ALCOHOL OPHT DROPS 15 ML BOTTLE EACHEYE SCH ×3 (05:17→21:13)
[2023-02-24 08:00] VITALS: TEMP 98
[2023-02-24] MEDS: HYDROGEN PEROXIDE 3% 118 ML BOTTLE TP SCH ×2 (08:12→19:08)
[2023-02-24] MEDS: levETIRAcetam 500 MG/5 ML LIQUID UDC GT SCH ×2 (08:24→21:13)
[2023-02-24] MEDS: DIGOXIN 125 MCG TABLET GT SCH (08:25)
[2023-02-24] MEDS: POTASSIUM CHLORIDE 40 MEQ/30 ML LIQUID UDC GT SCH (08:25)
[2023-02-24] MEDS: FUROSEMIDE 20 MG TABLET GT SCH (08:25)
[2023-02-24] MEDS: SERTRALINE HCL 25 MG TABLET GT SCH (08:26)
[2023-02-24] MEDS: COD LIVER OIL/ZINC OXIDE OINT 113 GM TUBE TP SCH ×2 (08:26→21:13)
[2023-02-24] MEDS: REMEDY ESSENTIAL ZINC PASTE 113 GM TP SCH ×2 (08:26→21:13)
[2023-02-24] MEDS: CLOTRIMAZOLE 1% CREAM 30 GM TUBE TP SCH ×2 (08:26→21:13)
[2023-02-24 20:00] VITALS: TEMP 97.8
[2023-02-24] MEDS: ACIDOPHILUS/BULGARICUS CHEW TAB GT SCH (21:12)
[2023-02-24] MEDS: NORMAL SALINE NASAL 45 ML BOTTLE NS SCH (21:13)
[2023-02-24] MEDS: ASCORBIC ACID 500 MG TABLET GT SCH (21:13)
[2023-02-25] MEDS: GLUCERNA 1.2 1000ML LIQUID GT PRN (04:35)
[2023-02-25] MEDS: POLYVINYL ALCOHOL OPHT DROPS 15 ML BOTTLE EACHEYE SCH ×3 (05:12→21:20)
[2023-02-25] MEDS: FAMOTIDINE 20 MG TABLET GT SCH ×2 (05:12→18:08)
[2023-02-25 08:00] VITALS: TEMP 98.1
[2023-02-25] MEDS: HYDROGEN PEROXIDE 3% 118 ML BOTTLE TP SCH ×2 (08:20→19:01)
[2023-02-25] MEDS: DIGOXIN 125 MCG TABLET GT SCH (08:44)
[2023-02-25] MEDS: levETIRAcetam 500 MG/5 ML LIQUID UDC GT SCH ×2 (08:44→21:18)
[2023-02-25] MEDS: FUROSEMIDE 20 MG TABLET GT SCH (08:44)
[2023-02-25] MEDS: SERTRALINE HCL 25 MG TABLET GT SCH (08:45)
[2023-02-25] MEDS: POTASSIUM CHLORIDE 40 MEQ/30 ML LIQUID UDC GT SCH (08:45)
[2023-02-25] MEDS: COD LIVER OIL/ZINC OXIDE OINT 113 GM TUBE TP SCH ×2 (08:45→21:20)
[2023-02-25] MEDS: CLOTRIMAZOLE 1% CREAM 30 GM TUBE TP SCH ×2 (08:46→21:20)
[2023-02-25] MEDS: REMEDY ESSENTIAL ZINC PASTE 113 GM TP SCH ×2 (08:46→21:20)
[2023-02-25 20:00] VITALS: TEMP 98.4
[2023-02-25] MEDS: ACIDOPHILUS/BULGARICUS CHEW TAB GT SCH (21:18)
[2023-02-25] MEDS: NORMAL SALINE NASAL 45 ML BOTTLE NS SCH (21:19)
[2023-02-25] MEDS: ASCORBIC ACID 500 MG TABLET GT SCH (21:19)
[2023-02-26] MEDS: GLUCERNA 1.2 1000ML LIQUID GT PRN (01:13)
[2023-02-26] MEDS: POLYVINYL ALCOHOL OPHT DROPS 15 ML BOTTLE EACHEYE SCH ×3 (05:45→22:26)
[2023-02-26] MEDS: FAMOTIDINE 20 MG TABLET GT SCH ×2 (05:45→17:22)
[2023-02-26 07:50] VITALS: TEMP 98.4
[2023-02-26] MEDS: levETIRAcetam 500 MG/5 ML LIQUID UDC GT SCH ×2 (08:55→20:18)
[2023-02-26] MEDS: REMEDY ESSENTIAL ZINC PASTE 113 GM TP SCH ×2 (08:55→20:18)
[2023-02-26] MEDS: DIGOXIN 125 MCG TABLET GT SCH (08:55)
[2023-02-26] MEDS: FUROSEMIDE 20 MG TABLET GT SCH (08:55)
[2023-02-26] MEDS: POTASSIUM CHLORIDE 40 MEQ/30 ML LIQUID UDC GT SCH (08:55)
[2023-02-26] MEDS: COD LIVER OIL/ZINC OXIDE OINT 113 GM TUBE TP SCH ×2 (08:55→20:18)
[2023-02-26] MEDS: SERTRALINE HCL 25 MG TABLET GT SCH (08:55)
[2023-02-26] MEDS: CLOTRIMAZOLE 1% CREAM 30 GM TUBE TP SCH ×2 (08:55→20:18)
[2023-02-26] MEDS: HYDROGEN PEROXIDE 3% 118 ML BOTTLE TP SCH ×2 (09:00→19:04)
[2023-02-26 19:35] VITALS: TEMP 98.6
[2023-02-26] MEDS: ACIDOPHILUS/BULGARICUS CHEW TAB GT SCH (20:17)
[2023-02-26] MEDS: ASCORBIC ACID 500 MG TABLET GT SCH (20:18)
[2023-02-26] MEDS: NORMAL SALINE NASAL 45 ML BOTTLE NS SCH (20:18)
[2023-02-27] MEDS: POLYVINYL ALCOHOL OPHT DROPS 15 ML BOTTLE EACHEYE SCH ×3 (05:20→20:08)
[2023-02-27] MEDS: FAMOTIDINE 20 MG TABLET GT SCH ×2 (05:20→17:32)
[2023-02-27] MEDS: HYDROGEN PEROXIDE 3% 118 ML BOTTLE TP SCH ×2 (07:07→19:10)
[2023-02-27 07:21] VITALS: TEMP 98.5
[2023-02-27] MEDS: levETIRAcetam 500 MG/5 ML LIQUID UDC GT SCH ×2 (09:52→20:07)
[2023-02-27] MEDS: FUROSEMIDE 20 MG TABLET GT SCH (09:53)
[2023-02-27] MEDS: DIGOXIN 125 MCG TABLET GT SCH (09:53)
[2023-02-27] MEDS: COD LIVER OIL/ZINC OXIDE OINT 113 GM TUBE TP SCH ×2 (09:53→20:07)
[2023-02-27] MEDS: POTASSIUM CHLORIDE 40 MEQ/30 ML LIQUID UDC GT SCH (09:53)
[2023-02-27] MEDS: SERTRALINE HCL 25 MG TABLET GT SCH (09:53)
[2023-02-27] MEDS: CLOTRIMAZOLE 1% CREAM 30 GM TUBE TP SCH ×2 (09:55→20:07)
[2023-02-27] MEDS: REMEDY ESSENTIAL ZINC PASTE 113 GM TP SCH ×2 (09:56→20:07)
[2023-02-27] MEDS: GLUCERNA 1.2 1000ML LIQUID GT PRN (17:32)
[2023-02-27 20:01] VITALS: TEMP 98.6
[2023-02-27] MEDS: ACIDOPHILUS/BULGARICUS CHEW TAB GT SCH (20:07)
[2023-02-27] MEDS: ASCORBIC ACID 500 MG TABLET GT SCH (20:07)
[2023-02-27] MEDS: NORMAL SALINE NASAL 45 ML BOTTLE NS SCH (20:07)
[2023-02-28] MEDS: POLYVINYL ALCOHOL OPHT DROPS 15 ML BOTTLE EACHEYE SCH ×3 (05:10→22:31)
[2023-02-28] MEDS: FAMOTIDINE 20 MG TABLET GT SCH ×2 (05:10→17:01)
[2023-02-28 07:25] VITALS: TEMP 98.8
[2023-02-28] MEDS: levETIRAcetam 500 MG/5 ML LIQUID UDC GT SCH ×2 (08:49→20:26)
[2023-02-28] MEDS: DIGOXIN 125 MCG TABLET GT SCH (08:52)
[2023-02-28] MEDS: SERTRALINE HCL 25 MG TABLET GT SCH (08:53)
[2023-02-28] MEDS: FUROSEMIDE 20 MG TABLET GT SCH (08:53)
[2023-02-28] MEDS: POTASSIUM CHLORIDE 40 MEQ/30 ML LIQUID UDC GT SCH (08:54)
[2023-02-28] MEDS: REMEDY ESSENTIAL ZINC PASTE 113 GM TP SCH ×2 (08:54→20:26)
[2023-02-28] MEDS: HYDROGEN PEROXIDE 3% 118 ML BOTTLE TP SCH ×2 (09:00→19:11)
[2023-02-28] MEDS: GLUCERNA 1.2 1000ML LIQUID GT PRN (16:53)
[2023-02-28 20:16] VITALS: TEMP 98.7
[2023-02-28] MEDS: ACIDOPHILUS/BULGARICUS CHEW TAB GT SCH (20:26)
[2023-02-28] MEDS: ASCORBIC ACID 500 MG TABLET GT SCH (20:26)
[2023-02-28] MEDS: NORMAL SALINE NASAL 45 ML BOTTLE NS SCH (20:26)
[2023-03-01] MEDS: POLYVINYL ALCOHOL OPHT DROPS 15 ML BOTTLE EACHEYE SCH ×3 (05:24→22:45)
[2023-03-01] MEDS: FAMOTIDINE 20 MG TABLET GT SCH ×2 (05:24→17:41)
[2023-03-01 07:19] VITALS: TEMP 98.7
[2023-03-01] MEDS: HYDROGEN PEROXIDE 3% 118 ML BOTTLE TP SCH ×2 (09:00→19:12)
[2023-03-01] MEDS: levETIRAcetam 500 MG/5 ML LIQUID UDC GT SCH ×2 (09:21→20:26)
[2023-03-01] MEDS: REMEDY ESSENTIAL ZINC PASTE 113 GM TP SCH ×2 (09:22→20:26)
[2023-03-01] MEDS: POTASSIUM CHLORIDE 40 MEQ/30 ML LIQUID UDC GT SCH (09:22)
[2023-03-01] MEDS: DIGOXIN 125 MCG TABLET GT SCH (09:22)
[2023-03-01] MEDS: SERTRALINE HCL 25 MG TABLET GT SCH (09:22)
[2023-03-01] MEDS: FUROSEMIDE 20 MG TABLET GT SCH (09:22)
[2023-03-01 19:45] VITALS: TEMP 97.5
[2023-03-01] MEDS: NORMAL SALINE NASAL 45 ML BOTTLE NS SCH (20:26)
[2023-03-01] MEDS: ASCORBIC ACID 500 MG TABLET GT SCH (20:26)
[2023-03-01] MEDS: ACIDOPHILUS/BULGARICUS CHEW TAB GT SCH (20:26)
[2023-03-02] MEDS: FAMOTIDINE 20 MG TABLET GT SCH ×2 (05:00→17:10)
[2023-03-02] MEDS: POLYVINYL ALCOHOL OPHT DROPS 15 ML BOTTLE EACHEYE SCH ×3 (05:00→22:00)
[2023-03-02 07:23] VITALS: TEMP 98
[2023-03-02] MEDS: HYDROGEN PEROXIDE 3% 118 ML BOTTLE TP SCH ×2 (09:00→19:05)
[2023-03-02] MEDS: POTASSIUM CHLORIDE 40 MEQ/30 ML LIQUID UDC GT SCH (09:21)
[2023-03-02] MEDS: SERTRALINE HCL 25 MG TABLET GT SCH (09:21)
[2023-03-02] MEDS: DIGOXIN 125 MCG TABLET GT SCH (09:21)
[2023-03-02] MEDS: FUROSEMIDE 20 MG TABLET GT SCH (09:21)
[2023-03-02] MEDS: levETIRAcetam 500 MG/5 ML LIQUID UDC GT SCH ×2 (09:21→20:27)
[2023-03-02] MEDS: REMEDY ESSENTIAL ZINC PASTE 113 GM TP SCH ×2 (09:21→20:27)
[2023-03-02 19:44] VITALS: TEMP 98.4
[2023-03-02] MEDS: ACIDOPHILUS/BULGARICUS CHEW TAB GT SCH (20:27)
[2023-03-02] MEDS: NORMAL SALINE NASAL 45 ML BOTTLE NS SCH (20:27)
[2023-03-02] MEDS: ASCORBIC ACID 500 MG TABLET GT SCH (20:27)
[2023-03-03] MEDS: POLYVINYL ALCOHOL OPHT DROPS 15 ML BOTTLE EACHEYE SCH ×3 (05:10→21:43)
[2023-03-03] MEDS: FAMOTIDINE 20 MG TABLET GT SCH ×2 (05:10→18:00)
[2023-03-03 07:24] VITALS: TEMP 98.4
[2023-03-03] MEDS: HYDROGEN PEROXIDE 3% 118 ML BOTTLE TP SCH ×2 (09:44→19:17)
[2023-03-03] MEDS: REMEDY ESSENTIAL ZINC PASTE 113 GM TP SCH ×2 (09:56→21:43)
[2023-03-03] MEDS: DIGOXIN 125 MCG TABLET GT SCH (09:56)
[2023-03-03] MEDS: SERTRALINE HCL 25 MG TABLET GT SCH (09:56)
[2023-03-03] MEDS: FUROSEMIDE 20 MG TABLET GT SCH (09:56)
[2023-03-03] MEDS: POTASSIUM CHLORIDE 40 MEQ/30 ML LIQUID UDC GT SCH (09:56)
[2023-03-03] MEDS: levETIRAcetam 500 MG/5 ML LIQUID UDC GT SCH ×2 (09:56→21:42)
[2023-03-03] MEDS: ACIDOPHILUS/BULGARICUS CHEW TAB GT SCH (21:42)
[2023-03-03] MEDS: NORMAL SALINE NASAL 45 ML BOTTLE NS SCH (21:43)
[2023-03-03] MEDS: ASCORBIC ACID 500 MG TABLET GT SCH (21:43)
[2023-03-04] MEDS: POLYVINYL ALCOHOL OPHT DROPS 15 ML BOTTLE EACHEYE SCH ×3 (05:31→21:29)
[2023-03-04] MEDS: FAMOTIDINE 20 MG TABLET GT SCH ×2 (05:31→18:31)
[2023-03-04 08:00] VITALS: TEMP 97.6
[2023-03-04] MEDS: levETIRAcetam 500 MG/5 ML LIQUID UDC GT SCH ×2 (08:25→21:29)
[2023-03-04] MEDS: DIGOXIN 125 MCG TABLET GT SCH (08:31)
[2023-03-04] MEDS: FUROSEMIDE 20 MG TABLET GT SCH (08:32)
[2023-03-04] MEDS: POTASSIUM CHLORIDE 40 MEQ/30 ML LIQUID UDC GT SCH (08:35)
[2023-03-04] MEDS: SERTRALINE HCL 25 MG TABLET GT SCH (08:36)
[2023-03-04] MEDS: HYDROGEN PEROXIDE 3% 118 ML BOTTLE TP SCH ×2 (09:32→21:00)
[2023-03-04] MEDS: REMEDY ESSENTIAL ZINC PASTE 113 GM TP SCH ×2 (09:43→21:29)
[2023-03-04 20:00] VITALS: TEMP 98.5
[2023-03-04] MEDS: ACIDOPHILUS/BULGARICUS CHEW TAB GT SCH (21:29)
[2023-03-04] MEDS: NORMAL SALINE NASAL 45 ML BOTTLE NS SCH (21:29)
[2023-03-04] MEDS: ASCORBIC ACID 500 MG TABLET GT SCH (21:29)
[2023-03-05] MEDS: FAMOTIDINE 20 MG TABLET GT SCH ×2 (05:26→17:51)
[2023-03-05] MEDS: POLYVINYL ALCOHOL OPHT DROPS 15 ML BOTTLE EACHEYE SCH ×3 (05:26→22:44)
[2023-03-05 07:25] VITALS: TEMP 98.1
[2023-03-05] MEDS: HYDROGEN PEROXIDE 3% 118 ML BOTTLE TP SCH ×2 (09:00→19:15)
[2023-03-05] MEDS: DIGOXIN 125 MCG TABLET GT SCH (09:26)
[2023-03-05] MEDS: FUROSEMIDE 20 MG TABLET GT SCH (09:26)
[2023-03-05] MEDS: levETIRAcetam 500 MG/5 ML LIQUID UDC GT SCH ×2 (09:26→20:03)
[2023-03-05] MEDS: REMEDY ESSENTIAL ZINC PASTE 113 GM TP SCH ×2 (09:27→20:04)
[2023-03-05] MEDS: POTASSIUM CHLORIDE 40 MEQ/30 ML LIQUID UDC GT SCH (09:27)
[2023-03-05] MEDS: SERTRALINE HCL 25 MG TABLET GT SCH (09:27)
[2023-03-05] MEDS: GLUCERNA 1.2 1000ML LIQUID GT PRN (15:35)
[2023-03-05 19:52] VITALS: TEMP 98.2
[2023-03-05] MEDS: ACIDOPHILUS/BULGARICUS CHEW TAB GT SCH (20:03)
[2023-03-05] MEDS: ASCORBIC ACID 500 MG TABLET GT SCH (20:03)
[2023-03-05] MEDS: NORMAL SALINE NASAL 45 ML BOTTLE NS SCH (20:04)
[2023-03-06] MEDS: POLYVINYL ALCOHOL OPHT DROPS 15 ML BOTTLE EACHEYE SCH ×3 (05:25→22:54)
[2023-03-06] MEDS: FAMOTIDINE 20 MG TABLET GT SCH ×2 (05:25→17:18)
[2023-03-06 07:21] VITALS: TEMP 98.6
[2023-03-06] MEDS: levETIRAcetam 500 MG/5 ML LIQUID UDC GT SCH ×2 (09:03→20:17)
[2023-03-06] MEDS: REMEDY ESSENTIAL ZINC PASTE 113 GM TP SCH ×2 (09:03→20:17)
[2023-03-06] MEDS: DIGOXIN 125 MCG TABLET GT SCH (09:03)
[2023-03-06] MEDS: SERTRALINE HCL 25 MG TABLET GT SCH (09:03)
[2023-03-06] MEDS: POTASSIUM CHLORIDE 40 MEQ/30 ML LIQUID UDC GT SCH (09:03)
[2023-03-06] MEDS: FUROSEMIDE 20 MG TABLET GT SCH (09:03)
[2023-03-06] MEDS: HYDROGEN PEROXIDE 3% 118 ML BOTTLE TP SCH ×2 (09:30→20:17)
[2023-03-06] MEDS: GLUCERNA 1.2 1000ML LIQUID GT PRN (12:23)
[2023-03-06 19:39] VITALS: TEMP 98.3
[2023-03-06] MEDS: NORMAL SALINE NASAL 45 ML BOTTLE NS SCH (20:17)
[2023-03-06] MEDS: ACIDOPHILUS/BULGARICUS CHEW TAB GT SCH (20:17)
[2023-03-06] MEDS: ASCORBIC ACID 500 MG TABLET GT SCH (20:17)
[2023-03-07] MEDS: POLYVINYL ALCOHOL OPHT DROPS 15 ML BOTTLE EACHEYE SCH ×3 (05:55→22:13)
[2023-03-07] MEDS: FAMOTIDINE 20 MG TABLET GT SCH ×2 (05:55→17:15)
[2023-03-07] MEDS: GLUCERNA 1.2 1000ML LIQUID GT PRN (06:57)
[2023-03-07 07:20] VITALS: TEMP 98.6
[2023-03-07] MEDS: HYDROGEN PEROXIDE 3% 118 ML BOTTLE TP SCH ×2 (09:33→19:01)
[2023-03-07] MEDS: levETIRAcetam 500 MG/5 ML LIQUID UDC GT SCH ×2 (09:33→20:06)
[2023-03-07] MEDS: FUROSEMIDE 20 MG TABLET GT SCH (09:35)
[2023-03-07] MEDS: SERTRALINE HCL 25 MG TABLET GT SCH (09:35)
[2023-03-07] MEDS: DIGOXIN 125 MCG TABLET GT SCH (09:35)
[2023-03-07] MEDS: POTASSIUM CHLORIDE 40 MEQ/30 ML LIQUID UDC GT SCH (09:36)
[2023-03-07] MEDS: REMEDY ESSENTIAL ZINC PASTE 113 GM TP SCH ×2 (09:36→20:07)
[2023-03-07 19:39] VITALS: TEMP 97.9
[2023-03-07] MEDS: ASCORBIC ACID 500 MG TABLET GT SCH (20:06)
[2023-03-07] MEDS: ACIDOPHILUS/BULGARICUS CHEW TAB GT SCH (20:06)
[2023-03-07] MEDS: NORMAL SALINE NASAL 45 ML BOTTLE NS SCH (20:07)
[2023-03-08] MEDS: GLUCERNA 1.2 1000ML LIQUID GT PRN (04:33)
[2023-03-08] MEDS: FAMOTIDINE 20 MG TABLET GT SCH ×2 (05:27→17:49)
[2023-03-08] MEDS: POLYVINYL ALCOHOL OPHT DROPS 15 ML BOTTLE EACHEYE SCH ×3 (05:27→21:29)
[2023-03-08] MEDS: HYDROGEN PEROXIDE 3% 118 ML BOTTLE TP SCH ×2 (07:04→19:04)
[2023-03-08 08:00] VITALS: TEMP 97.5
[2023-03-08] MEDS: DIGOXIN 125 MCG TABLET GT SCH (09:44)
[2023-03-08] MEDS: levETIRAcetam 500 MG/5 ML LIQUID UDC GT SCH ×2 (09:44→20:26)
[2023-03-08] MEDS: FUROSEMIDE 20 MG TABLET GT SCH (09:45)
[2023-03-08] MEDS: POTASSIUM CHLORIDE 40 MEQ/30 ML LIQUID UDC GT SCH (09:45)
[2023-03-08] MEDS: SERTRALINE HCL 25 MG TABLET GT SCH (09:47)
[2023-03-08] MEDS: REMEDY ESSENTIAL ZINC PASTE 113 GM TP SCH ×2 (09:48→20:26)
[2023-03-08 19:43] VITALS: TEMP 97.4
[2023-03-08] MEDS: ASCORBIC ACID 500 MG TABLET GT SCH (20:26)
[2023-03-08] MEDS: ACIDOPHILUS/BULGARICUS CHEW TAB GT SCH (20:26)
[2023-03-08] MEDS: NORMAL SALINE NASAL 45 ML BOTTLE NS SCH (20:26)
[2023-03-09] MEDS: POLYVINYL ALCOHOL OPHT DROPS 15 ML BOTTLE EACHEYE SCH ×3 (05:05→22:27)
[2023-03-09] MEDS: GLUCERNA 1.2 1000ML LIQUID GT PRN (05:05)
[2023-03-09] MEDS: FAMOTIDINE 20 MG TABLET GT SCH ×2 (05:05→17:28)
[2023-03-09 08:00] VITALS: TEMP 97.6
[2023-03-09] MEDS: FUROSEMIDE 20 MG TABLET GT SCH (09:00)
[2023-03-09] MEDS: POTASSIUM CHLORIDE 40 MEQ/30 ML LIQUID UDC GT SCH (09:00)
[2023-03-09] MEDS: SERTRALINE HCL 25 MG TABLET GT SCH (09:00)
[2023-03-09] MEDS: HYDROGEN PEROXIDE 3% 118 ML BOTTLE TP SCH ×3 (09:00→21:31)
[2023-03-09] MEDS: REMEDY ESSENTIAL ZINC PASTE 113 GM TP SCH ×2 (09:00→20:00)
[2023-03-09] MEDS: levETIRAcetam 500 MG/5 ML LIQUID UDC GT SCH ×2 (09:00→20:00)
[2023-03-09] MEDS: DIGOXIN 125 MCG TABLET GT SCH (09:00)
[2023-03-09 19:39] VITALS: TEMP 98.7
[2023-03-09] MEDS: ASCORBIC ACID 500 MG TABLET GT SCH (20:00)
[2023-03-09] MEDS: ACIDOPHILUS/BULGARICUS CHEW TAB GT SCH (20:00)
[2023-03-09] MEDS: NORMAL SALINE NASAL 45 ML BOTTLE NS SCH (20:00)
[2023-03-10] MEDS: FAMOTIDINE 20 MG TABLET GT SCH ×2 (05:07→17:47)
[2023-03-10] MEDS: POLYVINYL ALCOHOL OPHT DROPS 15 ML BOTTLE EACHEYE SCH ×3 (05:07→22:18)
[2023-03-10] MEDS: GLUCERNA 1.2 1000ML LIQUID GT PRN ×2 (05:07→17:47)
[2023-03-10] MEDS: HYDROGEN PEROXIDE 3% 118 ML BOTTLE TP SCH ×2 (07:32→19:02)
[2023-03-10 08:00] VITALS: TEMP 98.3
[2023-03-10] MEDS: POTASSIUM CHLORIDE 40 MEQ/30 ML LIQUID UDC GT SCH (08:15)
[2023-03-10] MEDS: levETIRAcetam 500 MG/5 ML LIQUID UDC GT SCH ×2 (08:15→20:02)
[2023-03-10] MEDS: DIGOXIN 125 MCG TABLET GT SCH (08:15)
[2023-03-10] MEDS: FUROSEMIDE 20 MG TABLET GT SCH (08:15)
[2023-03-10] MEDS: REMEDY ESSENTIAL ZINC PASTE 113 GM TP SCH ×2 (08:16→20:10)
[2023-03-10] MEDS: SERTRALINE HCL 25 MG TABLET GT SCH (08:16)
[2023-03-10 11:45] VITALS: O2SAT 99
[2023-03-10] MEDS: ACETAMINOPHEN 650 MG/20 ML UDC- SA PATIENTS-PAIN ONLY GT PRN (13:53)
[2023-03-10] MEDS ORDERED: diphenhydrAMINE 1% CREAM 28.3 GM TUBE TP PRN (14:15)
[2023-03-10 20:00] VITALS: TEMP 98.1
[2023-03-10] MEDS: ACIDOPHILUS/BULGARICUS CHEW TAB GT SCH (20:02)
[2023-03-10] MEDS: ASCORBIC ACID 500 MG TABLET GT SCH (20:02)
[2023-03-10] MEDS: NORMAL SALINE NASAL 45 ML BOTTLE NS SCH (20:10)
[2023-03-11] MEDS: FAMOTIDINE 20 MG TABLET GT SCH ×2 (05:05→17:11)
[2023-03-11] MEDS: POLYVINYL ALCOHOL OPHT DROPS 15 ML BOTTLE EACHEYE SCH ×3 (05:05→22:00)
[2023-03-11 08:04] VITALS: TEMP 97.7
[2023-03-11] MEDS: HYDROGEN PEROXIDE 3% 118 ML BOTTLE TP SCH ×2 (08:31→19:01)
[2023-03-11] MEDS: DIGOXIN 125 MCG TABLET GT SCH (09:09)
[2023-03-11] MEDS: POTASSIUM CHLORIDE 40 MEQ/30 ML LIQUID UDC GT SCH (09:09)
[2023-03-11] MEDS: FUROSEMIDE 20 MG TABLET GT SCH (09:09)
[2023-03-11] MEDS: levETIRAcetam 500 MG/5 ML LIQUID UDC GT SCH ×2 (09:09→20:09)
[2023-03-11] MEDS: SERTRALINE HCL 25 MG TABLET GT SCH (09:11)
[2023-03-11] MEDS: REMEDY ESSENTIAL ZINC PASTE 113 GM TP SCH ×2 (09:11→20:09)
[2023-03-11] MEDS: GLUCERNA 1.2 1000ML LIQUID GT PRN (17:11)
[2023-03-11] MEDS: ASCORBIC ACID 500 MG TABLET GT SCH (20:09)
[2023-03-11] MEDS: ACIDOPHILUS/BULGARICUS CHEW TAB GT SCH (20:09)
[2023-03-11] MEDS: NORMAL SALINE NASAL 45 ML BOTTLE NS SCH (20:09)
[2023-03-11 23:48] VITALS: TEMP 98.8
[2023-03-12] MEDS: FAMOTIDINE 20 MG TABLET GT SCH ×2 (06:01→17:21)
[2023-03-12] MEDS: POLYVINYL ALCOHOL OPHT DROPS 15 ML BOTTLE EACHEYE SCH ×3 (06:01→22:00)
[2023-03-12 07:47] VITALS: TEMP 97.6
[2023-03-12] MEDS: HYDROGEN PEROXIDE 3% 118 ML BOTTLE TP SCH ×2 (08:34→19:01)
[2023-03-12] MEDS: DIGOXIN 125 MCG TABLET GT SCH (09:04)
[2023-03-12] MEDS: SERTRALINE HCL 25 MG TABLET GT SCH (09:04)
[2023-03-12] MEDS: POTASSIUM CHLORIDE 40 MEQ/30 ML LIQUID UDC GT SCH (09:04)
[2023-03-12] MEDS: FUROSEMIDE 20 MG TABLET GT SCH (09:04)
[2023-03-12] MEDS: levETIRAcetam 500 MG/5 ML LIQUID UDC GT SCH ×2 (09:04→20:23)
[2023-03-12] MEDS: REMEDY ESSENTIAL ZINC PASTE 113 GM TP SCH ×2 (09:04→20:23)
[2023-03-12] MEDS: GLUCERNA 1.2 1000ML LIQUID GT PRN (15:30)
[2023-03-12 19:51] VITALS: TEMP 98.5
[2023-03-12] MEDS: ACIDOPHILUS/BULGARICUS CHEW TAB GT SCH (20:23)
[2023-03-12] MEDS: NORMAL SALINE NASAL 45 ML BOTTLE NS SCH (20:23)
[2023-03-12] MEDS: ASCORBIC ACID 500 MG TABLET GT SCH (20:23)
[2023-03-12] MEDS: ACETAMINOPHEN 650 MG/20 ML UDC- SA PATIENTS-PAIN ONLY GT PRN (23:17)
[2023-03-13] MEDS: FAMOTIDINE 20 MG TABLET GT SCH ×2 (05:05→18:42)
[2023-03-13] MEDS: POLYVINYL ALCOHOL OPHT DROPS 15 ML BOTTLE EACHEYE SCH ×3 (05:05→21:50)
[2023-03-13] MEDS: HYDROGEN PEROXIDE 3% 118 ML BOTTLE TP SCH ×2 (07:12→20:00)
[2023-03-13 08:00] VITALS: TEMP 97.6
[2023-03-13] MEDS: DIGOXIN 125 MCG TABLET GT SCH (09:20)
[2023-03-13] MEDS: levETIRAcetam 500 MG/5 ML LIQUID UDC GT SCH ×2 (09:20→20:00)
[2023-03-13] MEDS: FUROSEMIDE 20 MG TABLET GT SCH (09:21)
[2023-03-13] MEDS: SERTRALINE HCL 25 MG TABLET GT SCH (09:21)
[2023-03-13] MEDS: REMEDY ESSENTIAL ZINC PASTE 113 GM TP SCH ×2 (09:21→20:00)
[2023-03-13] MEDS: POTASSIUM CHLORIDE 40 MEQ/30 ML LIQUID UDC GT SCH (09:21)
[2023-03-13] MEDS: GLUCERNA 1.2 1000ML LIQUID GT PRN (14:02)
[2023-03-13 20:00] VITALS: TEMP 97.8
[2023-03-13] MEDS: ASCORBIC ACID 500 MG TABLET GT SCH (20:00)
[2023-03-13] MEDS: NORMAL SALINE NASAL 45 ML BOTTLE NS SCH (20:00)
[2023-03-13] MEDS: ACIDOPHILUS/BULGARICUS CHEW TAB GT SCH (20:00)
[2023-03-14] MEDS: POLYVINYL ALCOHOL OPHT DROPS 15 ML BOTTLE EACHEYE SCH ×3 (05:18→22:37)
[2023-03-14] MEDS: FAMOTIDINE 20 MG TABLET GT SCH ×2 (05:18→18:19)
[2023-03-14] MEDS: HYDROGEN PEROXIDE 3% 118 ML BOTTLE TP SCH ×2 (07:15→20:12)
[2023-03-14 07:27] VITALS: TEMP 97.9
[2023-03-14] MEDS: levETIRAcetam 500 MG/5 ML LIQUID UDC GT SCH ×2 (08:57→20:12)
[2023-03-14] MEDS: DIGOXIN 125 MCG TABLET GT SCH (08:57)
[2023-03-14] MEDS: POTASSIUM CHLORIDE 40 MEQ/30 ML LIQUID UDC GT SCH (08:57)
[2023-03-14] MEDS: FUROSEMIDE 20 MG TABLET GT SCH (08:57)
[2023-03-14] MEDS: SERTRALINE HCL 25 MG TABLET GT SCH (08:58)
[2023-03-14] MEDS: REMEDY ESSENTIAL ZINC PASTE 113 GM TP SCH ×2 (08:58→20:13)
[2023-03-14 20:00] VITALS: TEMP 99.2
[2023-03-14] MEDS: HYDROCORTISONE 2.5% ONT. 28.35 GM TUBE TP SCH (20:12)
[2023-03-14] MEDS: NORMAL SALINE NASAL 45 ML BOTTLE NS SCH (20:12)
[2023-03-14] MEDS: ACIDOPHILUS/BULGARICUS CHEW TAB GT SCH (20:12)
[2023-03-14] MEDS: ASCORBIC ACID 500 MG TABLET GT SCH (20:12)
[2023-03-15] MEDS: ACETAMINOPHEN 650 MG/20 ML UDC- SA PATIENTS-PAIN ONLY GT PRN ×3 (02:37→22:10)
[2023-03-15] MEDS: POLYVINYL ALCOHOL OPHT DROPS 15 ML BOTTLE EACHEYE SCH ×3 (05:15→22:10)
[2023-03-15] MEDS: FAMOTIDINE 20 MG TABLET GT SCH ×2 (05:15→17:07)
[2023-03-15] MEDS: GLUCERNA 1.2 1000ML LIQUID GT PRN (06:00)
[2023-03-15 07:23] VITALS: TEMP 98.9
[2023-03-15] MEDS: FUROSEMIDE 20 MG TABLET GT SCH (08:25)
[2023-03-15] MEDS: DIGOXIN 125 MCG TABLET GT SCH (08:25)
[2023-03-15] MEDS: POTASSIUM CHLORIDE 40 MEQ/30 ML LIQUID UDC GT SCH (08:25)
[2023-03-15] MEDS: levETIRAcetam 500 MG/5 ML LIQUID UDC GT SCH ×2 (08:25→20:02)
[2023-03-15] MEDS: SERTRALINE HCL 25 MG TABLET GT SCH (08:28)
[2023-03-15] MEDS: REMEDY ESSENTIAL ZINC PASTE 113 GM TP SCH ×2 (08:29→20:06)
[2023-03-15] MEDS: HYDROGEN PEROXIDE 3% 118 ML BOTTLE TP SCH ×2 (09:00→19:06)
[2023-03-15] MEDS: HYDROCORTISONE 2.5% ONT. 28.35 GM TUBE TP SCH ×2 (09:00→17:07)
[2023-03-15 19:56] VITALS: TEMP 99.7
[2023-03-15] MEDS: ACIDOPHILUS/BULGARICUS CHEW TAB GT SCH (20:02)
[2023-03-15] MEDS: NORMAL SALINE NASAL 45 ML BOTTLE NS SCH (20:04)
[2023-03-15] MEDS: ASCORBIC ACID 500 MG TABLET GT SCH (20:04)
[2023-03-15] MEDS: COD LIVER OIL/ZINC OXIDE OINT 113 GM TUBE TP SCH (20:06)
[2023-03-16] MEDS: POLYVINYL ALCOHOL OPHT DROPS 15 ML BOTTLE EACHEYE SCH ×3 (05:35→22:00)
[2023-03-16] MEDS: FAMOTIDINE 20 MG TABLET GT SCH ×2 (05:35→17:11)
[2023-03-16 07:25] VITALS: TEMP 98.7
[2023-03-16] MEDS: HYDROGEN PEROXIDE 3% 118 ML BOTTLE TP SCH ×2 (08:03→19:06)
[2023-03-16] MEDS: DIGOXIN 125 MCG TABLET GT SCH (08:55)
[2023-03-16] MEDS: levETIRAcetam 500 MG/5 ML LIQUID UDC GT SCH ×2 (08:55→20:16)
[2023-03-16] MEDS: FUROSEMIDE 20 MG TABLET GT SCH (08:55)
[2023-03-16] MEDS: POTASSIUM CHLORIDE 40 MEQ/30 ML LIQUID UDC GT SCH (08:56)
[2023-03-16] MEDS: SERTRALINE HCL 25 MG TABLET GT SCH (08:56)
[2023-03-16] MEDS: COD LIVER OIL/ZINC OXIDE OINT 113 GM TUBE TP SCH ×2 (08:56→20:17)
[2023-03-16] MEDS: REMEDY ESSENTIAL ZINC PASTE 113 GM TP SCH ×2 (08:57→20:17)
[2023-03-16] MEDS: HYDROCORTISONE 2.5% ONT. 28.35 GM TUBE TP SCH ×2 (08:57→17:11)
[2023-03-16] MEDS: ASCORBIC ACID 500 MG TABLET GT SCH (20:16)
[2023-03-16] MEDS: ACIDOPHILUS/BULGARICUS CHEW TAB GT SCH (20:16)
[2023-03-16] MEDS: NORMAL SALINE NASAL 45 ML BOTTLE NS SCH (20:17)
[2023-03-16 20:58] VITALS: TEMP 98.9
[2023-03-16] MEDS: GLUCERNA 1.2 1000ML LIQUID GT PRN (23:25)
[2023-03-17] MEDS: POLYVINYL ALCOHOL OPHT DROPS 15 ML BOTTLE EACHEYE SCH ×3 (05:00→21:12)
[2023-03-17] MEDS: FAMOTIDINE 20 MG TABLET GT SCH ×2 (05:00→17:50)
[2023-03-17 06:08] LABS: BASOPHILS % (AUTO) 0.7 % (0.0-2.0); EOSINOPHILS # (AUTO) 0.4 K/uL (0.0-0.7); EOSINOPHILS % (AUTO) 6.8 % (0.0-7.0); HEMATOCRIT 36.1 % (31.2-41.9); HEMOGLOBIN 11.9 g/dL (10.9-14.3); LYMPHOCYTES # (AUTO) 1.4 K/uL (0.8-4.8); LYMPHOCYTES % (AUTO) 25.6 % (20.5-51.5); MEAN CORPUSCULAR HEMOGLOBIN 29.8 uug (24.7-32.8); MEAN CORPUSCULAR HGB CONC 33 g/dL (32.3-35.6); MEAN CORPUSCULAR VOLUME 90.3 fL (75.5-95.3); MONOCYTES # (AUTO) 0.5 K/uL (0.1-1.30); NEUTROPHILS # (AUTO) 3.1 K/uL (1.8-8.9); NEUTROPHILS % (AUTO) 56.9 % (38.5-71.5); PLATELET COUNT (AUTO) 130 K/uL (179-408); RED CELL DISTRIBUTION WIDTH 15.6 % (12.3-17.7); WHITE BLOOD COUNT (AUTO) 5.4 K/uL (3.8-11.8)
[2023-03-17 07:07] LABS: CALCIUM 9.2 mg/dL (8.5-10.1); CARBON DIOXIDE 29 mmol/L (21-32); CHLORIDE 106 mmol/L (98-107); CREATININE 0.6 mg/dL (0.6-1.3); GLUCOSE 113 mg/dL (74-106); MAGNESIUM 2.6 mg/dL (1.8-2.4); PHOSPHOROUS 3.5 mg/dL (2.5-4.9); POTASSIUM 3.9 mmol/L (3.5-5.1); SODIUM SERUM 140 mmol/L (136-145); UREA NITROGEN, BLOOD 18 mg/dL (7-18)
[2023-03-17 07:21] LABS: DIFFERENTIAL COMMENT 1
[2023-03-17 08:00] VITALS: TEMP 98.9
[2023-03-17] MEDS: levETIRAcetam 500 MG/5 ML LIQUID UDC GT SCH ×2 (08:40→21:11)
[2023-03-17] MEDS: DIGOXIN 125 MCG TABLET GT SCH (08:41)
[2023-03-17] MEDS: FUROSEMIDE 20 MG TABLET GT SCH (08:42)
[2023-03-17] MEDS: SERTRALINE HCL 25 MG TABLET GT SCH (08:42)
[2023-03-17] MEDS: POTASSIUM CHLORIDE 40 MEQ/30 ML LIQUID UDC GT SCH (08:42)
[2023-03-17] MEDS: COD LIVER OIL/ZINC OXIDE OINT 113 GM TUBE TP SCH ×2 (08:42→21:11)
[2023-03-17] MEDS: HYDROCORTISONE 2.5% ONT. 28.35 GM TUBE TP SCH ×2 (08:43→17:50)
[2023-03-17] MEDS: REMEDY ESSENTIAL ZINC PASTE 113 GM TP SCH ×2 (08:43→21:12)
[2023-03-17] MEDS: HYDROGEN PEROXIDE 3% 118 ML BOTTLE TP SCH ×2 (09:46→19:25)
[2023-03-17] MEDS: GLUCERNA 1.2 1000ML LIQUID GT PRN (18:01)
[2023-03-17 20:00] VITALS: TEMP 98.9
[2023-03-17] MEDS: ACIDOPHILUS/BULGARICUS CHEW TAB GT SCH (21:11)
[2023-03-17] MEDS: NORMAL SALINE NASAL 45 ML BOTTLE NS SCH (21:11)
[2023-03-17] MEDS: ASCORBIC ACID 500 MG TABLET GT SCH (21:11)
[2023-03-18] MEDS: POLYVINYL ALCOHOL OPHT DROPS 15 ML BOTTLE EACHEYE SCH ×3 (06:04→22:11)
[2023-03-18] MEDS: FAMOTIDINE 20 MG TABLET GT SCH ×2 (06:04→17:27)
[2023-03-18] MEDS: HYDROGEN PEROXIDE 3% 118 ML BOTTLE TP SCH ×2 (07:06→19:17)
[2023-03-18 07:25] VITALS: TEMP 98.5
[2023-03-18] MEDS: FUROSEMIDE 20 MG TABLET GT SCH (09:49)
[2023-03-18] MEDS: DIGOXIN 125 MCG TABLET GT SCH (09:49)
[2023-03-18] MEDS: SERTRALINE HCL 25 MG TABLET GT SCH (09:49)
[2023-03-18] MEDS: levETIRAcetam 500 MG/5 ML LIQUID UDC GT SCH ×2 (09:49→21:00)
[2023-03-18] MEDS: POTASSIUM CHLORIDE 40 MEQ/30 ML LIQUID UDC GT SCH (09:49)
[2023-03-18] MEDS: HYDROCORTISONE 2.5% ONT. 28.35 GM TUBE TP SCH ×2 (09:50→17:27)
[2023-03-18] MEDS: REMEDY ESSENTIAL ZINC PASTE 113 GM TP SCH ×2 (09:50→21:00)
[2023-03-18] MEDS: COD LIVER OIL/ZINC OXIDE OINT 113 GM TUBE TP SCH ×2 (09:50→21:00)
[2023-03-18] MEDS: GLUCERNA 1.2 1000ML LIQUID GT PRN (13:05)
[2023-03-18 20:00] VITALS: TEMP 97.8
[2023-03-18] MEDS: ACIDOPHILUS/BULGARICUS CHEW TAB GT SCH (21:00)
[2023-03-18] MEDS: ASCORBIC ACID 500 MG TABLET GT SCH (21:00)
[2023-03-18] MEDS: NORMAL SALINE NASAL 45 ML BOTTLE NS SCH (21:00)
[2023-03-19] MEDS: FAMOTIDINE 20 MG TABLET GT SCH ×2 (06:18→17:17)
[2023-03-19] MEDS: POLYVINYL ALCOHOL OPHT DROPS 15 ML BOTTLE EACHEYE SCH ×3 (06:18→21:02)
[2023-03-19 08:00] VITALS: TEMP 98.3
[2023-03-19 08:09] VITALS: TEMP 98.3
[2023-03-19] MEDS: levETIRAcetam 500 MG/5 ML LIQUID UDC GT SCH ×2 (08:37→21:02)
[2023-03-19] MEDS: POTASSIUM CHLORIDE 40 MEQ/30 ML LIQUID UDC GT SCH (08:39)
[2023-03-19] MEDS: DIGOXIN 125 MCG TABLET GT SCH (08:39)
[2023-03-19] MEDS: FUROSEMIDE 20 MG TABLET GT SCH (08:39)
[2023-03-19] MEDS: SERTRALINE HCL 25 MG TABLET GT SCH (08:40)
[2023-03-19] MEDS: HYDROCORTISONE 2.5% ONT. 28.35 GM TUBE TP SCH (08:40)
[2023-03-19] MEDS: REMEDY ESSENTIAL ZINC PASTE 113 GM TP SCH ×2 (08:40→21:02)
[2023-03-19] MEDS: COD LIVER OIL/ZINC OXIDE OINT 113 GM TUBE TP SCH ×2 (08:40→21:02)
[2023-03-19] MEDS: HYDROGEN PEROXIDE 3% 118 ML BOTTLE TP SCH ×2 (09:44→19:12)
[2023-03-19] MEDS ORDERED: TUBERCULIN,PURIF.PROT.DERIV. 5 TU/0.1 ML TEST ID SCH (12:00)
[2023-03-19] MEDS ORDERED: HYDROCORTISONE 2.5% ONT. 28.35 GM TUBE TP PRN (17:00)
[2023-03-19 20:00] VITALS: TEMP 98.1
[2023-03-19] MEDS: NORMAL SALINE NASAL 45 ML BOTTLE NS SCH (21:02)
[2023-03-19] MEDS: ACIDOPHILUS/BULGARICUS CHEW TAB GT SCH (21:02)
[2023-03-19] MEDS: ASCORBIC ACID 500 MG TABLET GT SCH (21:02)
[2023-03-19] MEDS: GLUCERNA 1.2 1000ML LIQUID GT PRN (22:50)
[2023-03-20] MEDS: FAMOTIDINE 20 MG TABLET GT SCH ×2 (05:12→17:12)
[2023-03-20] MEDS: POLYVINYL ALCOHOL OPHT DROPS 15 ML BOTTLE EACHEYE SCH ×3 (05:12→22:04)
[2023-03-20 05:56] LABS: BASOPHILS % (AUTO) 0.9 % (0.0-2.0); EOSINOPHILS # (AUTO) 0.4 K/uL (0.0-0.7); EOSINOPHILS % (AUTO) 6.8 % (0.0-7.0); HEMATOCRIT 37.3 % (31.2-41.9); HEMOGLOBIN 12.3 g/dL (10.9-14.3); LYMPHOCYTES # (AUTO) 1.3 K/uL (0.8-4.8); LYMPHOCYTES % (AUTO) 25.6 % (20.5-51.5); MEAN CORPUSCULAR HEMOGLOBIN 29.8 uug (24.7-32.8); MEAN CORPUSCULAR HGB CONC 33 g/dL (32.3-35.6); MONOCYTES # (AUTO) 0.6 K/uL (0.1-1.30); MONOCYTES % (AUTO) 11.1 % (0.0-11.0); NEUTROPHILS # (AUTO) 2.9 K/uL (1.8-8.9); NEUTROPHILS % (AUTO) 55.6 % (38.5-71.5); PLATELET COUNT (AUTO) 147 K/uL (179-408); RED BLOOD CELL COUNT(AUTO) 4.15 MIL/uL (3.63-4.92); RED CELL DISTRIBUTION WIDTH 15.6 % (12.3-17.7); WHITE BLOOD COUNT (AUTO) 5.2 K/uL (3.8-11.8)
[2023-03-20 06:41] LABS: DIFFERENTIAL COMMENT 1
[2023-03-20 06:46] LABS: ALANINE AMINOTRANSFERASE 30 U/L (14-59); ALBUMIN 2.6 g/dL (3.4-5.0); ALKALINE PHOSPHATASE 141 U/L (50-136); ASPARTATE AMINOTRANSFERASE 22 U/L (15-37); BILIRUBIN,TOTAL 0.3 mg/dL (0.2-1.0); CALCIUM 8.7 mg/dL (8.5-10.1); CARBON DIOXIDE 26 mmol/L (21-32); CHLORIDE 106 mmol/L (98-107); CREATININE 0.6 mg/dL (0.6-1.3); GLUCOSE 107 mg/dL (74-106); POTASSIUM 3.8 mmol/L (3.5-5.1); SODIUM SERUM 139 mmol/L (136-145); TOTAL PROTEIN, SERUM 7.1 g/dL (6.4-8.2); UREA NITROGEN, BLOOD 17 mg/dL (7-18)
[2023-03-20 07:18] VITALS: TEMP 98
[2023-03-20] MEDS: HYDROGEN PEROXIDE 3% 118 ML BOTTLE TP SCH ×2 (07:31→19:12)
[2023-03-20] MEDS: SERTRALINE HCL 25 MG TABLET GT SCH (08:50)
[2023-03-20] MEDS: POTASSIUM CHLORIDE 40 MEQ/30 ML LIQUID UDC GT SCH (08:50)
[2023-03-20] MEDS: DIGOXIN 125 MCG TABLET GT SCH (08:50)
[2023-03-20] MEDS: COD LIVER OIL/ZINC OXIDE OINT 113 GM TUBE TP SCH ×2 (08:50→20:16)
[2023-03-20] MEDS: FUROSEMIDE 20 MG TABLET GT SCH (08:50)
[2023-03-20] MEDS: levETIRAcetam 500 MG/5 ML LIQUID UDC GT SCH ×2 (08:50→20:16)
[2023-03-20] MEDS: REMEDY ESSENTIAL ZINC PASTE 113 GM TP SCH ×2 (08:50→20:17)
[2023-03-20 19:59] VITALS: TEMP 97.3
[2023-03-20] MEDS: ACIDOPHILUS/BULGARICUS CHEW TAB GT SCH (20:16)
[2023-03-20] MEDS: NORMAL SALINE NASAL 45 ML BOTTLE NS SCH (20:16)
[2023-03-20] MEDS: ASCORBIC ACID 500 MG TABLET GT SCH (20:16)
[2023-03-20] MEDS: ACETAMINOPHEN 650 MG/20 ML UDC- SA PATIENTS-PAIN ONLY GT PRN (20:19)
[2023-03-20] MEDS: GLUCERNA 1.2 1000ML LIQUID GT PRN (22:04)
[2023-03-21] MEDS: POLYVINYL ALCOHOL OPHT DROPS 15 ML BOTTLE EACHEYE SCH ×3 (05:20→22:57)
[2023-03-21] MEDS: FAMOTIDINE 20 MG TABLET GT SCH ×2 (05:21→17:04)
[2023-03-21 07:18] VITALS: TEMP 98.6
[2023-03-21] MEDS: HYDROGEN PEROXIDE 3% 118 ML BOTTLE TP SCH ×2 (09:00→19:00)
[2023-03-21] MEDS: SERTRALINE HCL 25 MG TABLET GT SCH (09:42)
[2023-03-21] MEDS: POTASSIUM CHLORIDE 40 MEQ/30 ML LIQUID UDC GT SCH (09:42)
[2023-03-21] MEDS: DIGOXIN 125 MCG TABLET GT SCH (09:42)
[2023-03-21] MEDS: FUROSEMIDE 20 MG TABLET GT SCH (09:42)
[2023-03-21] MEDS: levETIRAcetam 500 MG/5 ML LIQUID UDC GT SCH ×2 (09:42→20:40)
[2023-03-21] MEDS: REMEDY ESSENTIAL ZINC PASTE 113 GM TP SCH ×2 (09:43→20:40)
[2023-03-21] MEDS: CETAPHIL MOISTURIZING TP SCH (09:43)
[2023-03-21] MEDS: COD LIVER OIL/ZINC OXIDE OINT 113 GM TUBE TP SCH ×2 (09:43→20:40)
[2023-03-21] MEDS ORDERED: TUBERCULIN,PURIF.PROT.DERIV. 5 TU/0.1 ML TEST ID ONE (14:00)
[2023-03-21] MEDS: GLUCERNA 1.2 1000ML LIQUID GT PRN (18:52)
[2023-03-21 20:00] VITALS: TEMP 97.7
[2023-03-21] MEDS: NORMAL SALINE NASAL 45 ML BOTTLE NS SCH (20:40)
[2023-03-21] MEDS: ASCORBIC ACID 500 MG TABLET GT SCH (20:40)
[2023-03-21] MEDS: ACIDOPHILUS/BULGARICUS CHEW TAB GT SCH (20:40)
[2023-03-22] MEDS: FAMOTIDINE 20 MG TABLET GT SCH ×2 (05:00→17:09)
[2023-03-22] MEDS: POLYVINYL ALCOHOL OPHT DROPS 15 ML BOTTLE EACHEYE SCH ×3 (05:00→22:00)
[2023-03-22 07:23] VITALS: TEMP 98.8
[2023-03-22] MEDS: FUROSEMIDE 20 MG TABLET GT SCH (09:00)
[2023-03-22] MEDS: HYDROGEN PEROXIDE 3% 118 ML BOTTLE TP SCH ×2 (09:00→20:09)
[2023-03-22] MEDS: SERTRALINE HCL 25 MG TABLET GT SCH (09:00)
[2023-03-22] MEDS: levETIRAcetam 500 MG/5 ML LIQUID UDC GT SCH ×2 (09:00→20:30)
[2023-03-22] MEDS: COD LIVER OIL/ZINC OXIDE OINT 113 GM TUBE TP SCH ×2 (09:00→20:32)
[2023-03-22] MEDS: DIGOXIN 125 MCG TABLET GT SCH (09:00)
[2023-03-22] MEDS: CETAPHIL MOISTURIZING TP SCH (09:01)
[2023-03-22] MEDS: REMEDY ESSENTIAL ZINC PASTE 113 GM TP SCH ×2 (09:01→20:32)
[2023-03-22] MEDS: POTASSIUM CHLORIDE 40 MEQ/30 ML LIQUID UDC GT SCH (09:03)
[2023-03-22] MEDS: GLUCERNA 1.2 1000ML LIQUID GT PRN (16:04)
[2023-03-22 20:03] VITALS: TEMP 99.4
[2023-03-22] MEDS: ACIDOPHILUS/BULGARICUS CHEW TAB GT SCH (20:26)
[2023-03-22] MEDS: ASCORBIC ACID 500 MG TABLET GT SCH (20:30)
[2023-03-22] MEDS: NORMAL SALINE NASAL 45 ML BOTTLE NS SCH (20:31)
[2023-03-23] MEDS: FAMOTIDINE 20 MG TABLET GT SCH ×2 (05:57→17:21)
[2023-03-23] MEDS: POLYVINYL ALCOHOL OPHT DROPS 15 ML BOTTLE EACHEYE SCH ×3 (05:57→22:10)
[2023-03-23 06:18] VITALS: TEMP 98.2
[2023-03-23 07:22] VITALS: TEMP 98.9
[2023-03-23] MEDS: DIGOXIN 125 MCG TABLET GT SCH (08:26)
[2023-03-23] MEDS: levETIRAcetam 500 MG/5 ML LIQUID UDC GT SCH ×2 (08:26→20:40)
[2023-03-23] MEDS: FUROSEMIDE 20 MG TABLET GT SCH (08:39)
[2023-03-23] MEDS: CETAPHIL MOISTURIZING TP SCH (08:41)
[2023-03-23] MEDS: COD LIVER OIL/ZINC OXIDE OINT 113 GM TUBE TP SCH ×2 (08:41→20:41)
[2023-03-23] MEDS: REMEDY ESSENTIAL ZINC PASTE 113 GM TP SCH ×2 (08:41→21:00)
[2023-03-23] MEDS: POTASSIUM CHLORIDE 40 MEQ/30 ML LIQUID UDC GT SCH (08:41)
[2023-03-23] MEDS: SERTRALINE HCL 25 MG TABLET GT SCH (08:41)
[2023-03-23] MEDS: HYDROGEN PEROXIDE 3% 118 ML BOTTLE TP SCH ×2 (09:00→21:56)
[2023-03-23] MEDS: GLUCERNA 1.2 1000ML LIQUID GT PRN (12:38)
[2023-03-23 20:00] VITALS: TEMP 98.7
[2023-03-23] MEDS: NORMAL SALINE NASAL 45 ML BOTTLE NS SCH (20:40)
[2023-03-23] MEDS: ASCORBIC ACID 500 MG TABLET GT SCH (20:40)
[2023-03-23] MEDS: ACIDOPHILUS/BULGARICUS CHEW TAB GT SCH (20:40)
[2023-03-24] MEDS: POLYVINYL ALCOHOL OPHT DROPS 15 ML BOTTLE EACHEYE SCH ×3 (05:41→21:21)
[2023-03-24] MEDS: FAMOTIDINE 20 MG TABLET GT SCH ×2 (05:41→18:11)
[2023-03-24] MEDS: HYDROGEN PEROXIDE 3% 118 ML BOTTLE TP SCH ×2 (07:14→19:08)
[2023-03-24 07:39] VITALS: TEMP 98.7
[2023-03-24] MEDS: levETIRAcetam 500 MG/5 ML LIQUID UDC GT SCH ×2 (08:04→21:20)
[2023-03-24] MEDS: CETAPHIL MOISTURIZING TP SCH (08:05)
[2023-03-24] MEDS: SERTRALINE HCL 25 MG TABLET GT SCH (08:05)
[2023-03-24] MEDS: DIGOXIN 125 MCG TABLET GT SCH (08:05)
[2023-03-24] MEDS: FUROSEMIDE 20 MG TABLET GT SCH (08:05)
[2023-03-24] MEDS: REMEDY ESSENTIAL ZINC PASTE 113 GM TP SCH ×2 (08:05→21:21)
[2023-03-24] MEDS: POTASSIUM CHLORIDE 40 MEQ/30 ML LIQUID UDC GT SCH (08:05)
[2023-03-24] MEDS: COD LIVER OIL/ZINC OXIDE OINT 113 GM TUBE TP SCH ×2 (08:05→21:20)
[2023-03-24] MEDS: GLUCERNA 1.2 1000ML LIQUID GT PRN (14:46)
[2023-03-24 20:00] VITALS: TEMP 98.2
[2023-03-24] MEDS: ACIDOPHILUS/BULGARICUS CHEW TAB GT SCH (21:19)
[2023-03-24] MEDS: ASCORBIC ACID 500 MG TABLET GT SCH (21:20)
[2023-03-24] MEDS: NORMAL SALINE NASAL 45 ML BOTTLE NS SCH (21:20)
[2023-03-25] MEDS: POLYVINYL ALCOHOL OPHT DROPS 15 ML BOTTLE EACHEYE SCH ×3 (05:36→21:26)
[2023-03-25] MEDS: FAMOTIDINE 20 MG TABLET GT SCH ×2 (05:36→18:39)
[2023-03-25 07:58] VITALS: TEMP 98
[2023-03-25] MEDS: POTASSIUM CHLORIDE 40 MEQ/30 ML LIQUID UDC GT SCH (09:00)
[2023-03-25] MEDS: levETIRAcetam 500 MG/5 ML LIQUID UDC GT SCH ×2 (09:00→21:26)
[2023-03-25] MEDS: HYDROGEN PEROXIDE 3% 118 ML BOTTLE TP SCH ×2 (09:14→19:06)
[2023-03-25] MEDS: DIGOXIN 125 MCG TABLET GT SCH (09:56)
[2023-03-25] MEDS: FUROSEMIDE 20 MG TABLET GT SCH (09:57)
[2023-03-25] MEDS: REMEDY ESSENTIAL ZINC PASTE 113 GM TP SCH ×2 (09:58→21:26)
[2023-03-25] MEDS: COD LIVER OIL/ZINC OXIDE OINT 113 GM TUBE TP SCH ×2 (09:58→21:26)
[2023-03-25] MEDS: SERTRALINE HCL 25 MG TABLET GT SCH (09:58)
[2023-03-25] MEDS: CETAPHIL MOISTURIZING TP SCH (09:58)
[2023-03-25] MEDS: GLUCERNA 1.2 1000ML LIQUID GT PRN (13:51)
[2023-03-25 20:00] VITALS: TEMP 99.2
[2023-03-25] MEDS: NORMAL SALINE NASAL 45 ML BOTTLE NS SCH (21:26)
[2023-03-25] MEDS: ACIDOPHILUS/BULGARICUS CHEW TAB GT SCH (21:26)
[2023-03-25] MEDS: ASCORBIC ACID 500 MG TABLET GT SCH (21:26)
[2023-03-26] MEDS: FAMOTIDINE 20 MG TABLET GT SCH ×2 (05:10→17:02)
[2023-03-26] MEDS: POLYVINYL ALCOHOL OPHT DROPS 15 ML BOTTLE EACHEYE SCH ×3 (05:10→21:45)
[2023-03-26] MEDS: HYDROGEN PEROXIDE 3% 118 ML BOTTLE TP SCH ×2 (07:23→19:06)
[2023-03-26 07:58] VITALS: TEMP 98.1
[2023-03-26] MEDS: DIGOXIN 125 MCG TABLET GT SCH (08:52)
[2023-03-26] MEDS: SERTRALINE HCL 25 MG TABLET GT SCH (08:52)
[2023-03-26] MEDS: FUROSEMIDE 20 MG TABLET GT SCH (08:53)
[2023-03-26] MEDS: REMEDY ESSENTIAL ZINC PASTE 113 GM TP SCH ×2 (08:53→21:44)
[2023-03-26] MEDS: CETAPHIL MOISTURIZING TP SCH (08:53)
[2023-03-26] MEDS: COD LIVER OIL/ZINC OXIDE OINT 113 GM TUBE TP SCH ×2 (08:53→21:44)
[2023-03-26] MEDS: POTASSIUM CHLORIDE 40 MEQ/30 ML LIQUID UDC GT SCH (08:58)
[2023-03-26] MEDS: levETIRAcetam 500 MG/5 ML LIQUID UDC GT SCH ×2 (09:18→21:44)
[2023-03-26] MEDS: GLUCERNA 1.2 1000ML LIQUID GT PRN (11:45)
[2023-03-26 20:28] VITALS: TEMP 98.8
[2023-03-26] MEDS: ACIDOPHILUS/BULGARICUS CHEW TAB GT SCH (21:44)
[2023-03-26] MEDS: NORMAL SALINE NASAL 45 ML BOTTLE NS SCH (21:44)
[2023-03-26] MEDS: ASCORBIC ACID 500 MG TABLET GT SCH (21:44)
[2023-03-27] MEDS: GLUCERNA 1.2 1000ML LIQUID GT PRN (05:11)
[2023-03-27] MEDS: POLYVINYL ALCOHOL OPHT DROPS 15 ML BOTTLE EACHEYE SCH ×3 (06:00→22:53)
[2023-03-27] MEDS: FAMOTIDINE 20 MG TABLET GT SCH ×2 (06:16→17:10)
[2023-03-27 07:23] VITALS: TEMP 98
[2023-03-27] MEDS: HYDROGEN PEROXIDE 3% 118 ML BOTTLE TP SCH ×2 (08:00→20:21)
[2023-03-27] MEDS: levETIRAcetam 500 MG/5 ML LIQUID UDC GT SCH ×2 (08:36→20:21)
[2023-03-27] MEDS: FUROSEMIDE 20 MG TABLET GT SCH (08:37)
[2023-03-27] MEDS: DIGOXIN 125 MCG TABLET GT SCH (08:37)
[2023-03-27] MEDS: SERTRALINE HCL 25 MG TABLET GT SCH (08:39)
[2023-03-27] MEDS: POTASSIUM CHLORIDE 40 MEQ/30 ML LIQUID UDC GT SCH (08:39)
[2023-03-27] MEDS: CETAPHIL MOISTURIZING TP SCH (08:40)
[2023-03-27] MEDS: REMEDY ESSENTIAL ZINC PASTE 113 GM TP SCH ×2 (08:40→20:21)
[2023-03-27] MEDS: COD LIVER OIL/ZINC OXIDE OINT 113 GM TUBE TP SCH ×2 (08:40→20:21)
[2023-03-27] MEDS: NORMAL SALINE NASAL 45 ML BOTTLE NS SCH (20:21)
[2023-03-27] MEDS: ACIDOPHILUS/BULGARICUS CHEW TAB GT SCH (20:21)
[2023-03-27] MEDS: ASCORBIC ACID 500 MG TABLET GT SCH (20:21)
[2023-03-27 20:37] VITALS: TEMP 98.4
[2023-03-28] MEDS: GLUCERNA 1.2 1000ML LIQUID GT PRN (02:01)
[2023-03-28] MEDS: POLYVINYL ALCOHOL OPHT DROPS 15 ML BOTTLE EACHEYE SCH ×3 (05:39→22:37)
[2023-03-28] MEDS: FAMOTIDINE 20 MG TABLET GT SCH ×2 (05:39→17:11)
[2023-03-28 07:23] VITALS: TEMP 98.7
[2023-03-28] MEDS: levETIRAcetam 500 MG/5 ML LIQUID UDC GT SCH ×2 (08:51→20:27)
[2023-03-28] MEDS: REMEDY ESSENTIAL ZINC PASTE 113 GM TP SCH ×2 (08:52→20:27)
[2023-03-28] MEDS: FUROSEMIDE 20 MG TABLET GT SCH (08:52)
[2023-03-28] MEDS: DIGOXIN 125 MCG TABLET GT SCH (08:52)
[2023-03-28] MEDS: COD LIVER OIL/ZINC OXIDE OINT 113 GM TUBE TP SCH ×2 (08:52→20:27)
[2023-03-28] MEDS: CETAPHIL MOISTURIZING TP SCH (08:52)
[2023-03-28] MEDS: POTASSIUM CHLORIDE 40 MEQ/30 ML LIQUID UDC GT SCH (08:52)
[2023-03-28] MEDS: SERTRALINE HCL 25 MG TABLET GT SCH (08:52)
[2023-03-28] MEDS: HYDROGEN PEROXIDE 3% 118 ML BOTTLE TP SCH ×2 (09:00→19:14)
[2023-03-28 20:00] VITALS: TEMP 98.1
[2023-03-28 20:22] VITALS: TEMP 98.6
[2023-03-28] MEDS: ACIDOPHILUS/BULGARICUS CHEW TAB GT SCH (20:26)
[2023-03-28] MEDS: ASCORBIC ACID 500 MG TABLET GT SCH (20:27)
[2023-03-28] MEDS: NORMAL SALINE NASAL 45 ML BOTTLE NS SCH (20:27)
[2023-03-29] MEDS: POLYVINYL ALCOHOL OPHT DROPS 15 ML BOTTLE EACHEYE SCH ×3 (05:10→22:13)
[2023-03-29] MEDS: FAMOTIDINE 20 MG TABLET GT SCH ×2 (05:11→18:00)
[2023-03-29] MEDS: GLUCERNA 1.2 1000ML LIQUID GT PRN (05:11)
[2023-03-29] MEDS: DIGOXIN 125 MCG TABLET GT SCH (08:42)
[2023-03-29] MEDS: levETIRAcetam 500 MG/5 ML LIQUID UDC GT SCH ×2 (08:42→20:33)
[2023-03-29] MEDS: FUROSEMIDE 20 MG TABLET GT SCH (08:42)
[2023-03-29] MEDS: POTASSIUM CHLORIDE 40 MEQ/30 ML LIQUID UDC GT SCH (08:43)
[2023-03-29] MEDS: REMEDY ESSENTIAL ZINC PASTE 113 GM TP SCH ×2 (08:44→20:34)
[2023-03-29] MEDS: SERTRALINE HCL 25 MG TABLET GT SCH (08:44)
[2023-03-29] MEDS: COD LIVER OIL/ZINC OXIDE OINT 113 GM TUBE TP SCH ×2 (08:44→20:33)
[2023-03-29] MEDS: CETAPHIL MOISTURIZING TP SCH (08:44)
[2023-03-29] MEDS: HYDROGEN PEROXIDE 3% 118 ML BOTTLE TP SCH ×2 (08:54→19:07)
[2023-03-29 20:00] VITALS: TEMP 98.6
[2023-03-29] MEDS: ACIDOPHILUS/BULGARICUS CHEW TAB GT SCH (20:32)
[2023-03-29] MEDS: ASCORBIC ACID 500 MG TABLET GT SCH (20:33)
[2023-03-29] MEDS: NORMAL SALINE NASAL 45 ML BOTTLE NS SCH (20:33)
[2023-03-30] MEDS: FAMOTIDINE 20 MG TABLET GT SCH ×2 (05:12→17:52)
[2023-03-30] MEDS: POLYVINYL ALCOHOL OPHT DROPS 15 ML BOTTLE EACHEYE SCH ×3 (05:12→21:47)
[2023-03-30 08:00] VITALS: TEMP 98.1
[2023-03-30] MEDS: HYDROGEN PEROXIDE 3% 118 ML BOTTLE TP SCH ×2 (09:00→19:06)
[2023-03-30] MEDS: REMEDY ESSENTIAL ZINC PASTE 113 GM TP SCH ×2 (09:00→20:08)
[2023-03-30] MEDS: CETAPHIL MOISTURIZING TP SCH (09:00)
[2023-03-30] MEDS: COD LIVER OIL/ZINC OXIDE OINT 113 GM TUBE TP SCH ×2 (09:00→20:07)
[2023-03-30] MEDS: levETIRAcetam 500 MG/5 ML LIQUID UDC GT SCH ×2 (09:38→20:07)
[2023-03-30] MEDS: DIGOXIN 125 MCG TABLET GT SCH (09:40)
[2023-03-30] MEDS: FUROSEMIDE 20 MG TABLET GT SCH (09:40)
[2023-03-30] MEDS: POTASSIUM CHLORIDE 40 MEQ/30 ML LIQUID UDC GT SCH (09:41)
[2023-03-30] MEDS: SERTRALINE HCL 25 MG TABLET GT SCH (09:41)
[2023-03-30] MEDS: GLUCERNA 1.2 1000ML LIQUID GT PRN (17:45)
[2023-03-30 19:53] VITALS: TEMP 98.2
[2023-03-30] MEDS: NORMAL SALINE NASAL 45 ML BOTTLE NS SCH (20:07)
[2023-03-30] MEDS: ASCORBIC ACID 500 MG TABLET GT SCH (20:07)
[2023-03-30] MEDS: ACIDOPHILUS/BULGARICUS CHEW TAB GT SCH (20:07)
[2023-03-31] MEDS: FAMOTIDINE 20 MG TABLET GT SCH ×2 (05:07→17:05)
[2023-03-31] MEDS: POLYVINYL ALCOHOL OPHT DROPS 15 ML BOTTLE EACHEYE SCH ×3 (05:07→21:15)
[2023-03-31 08:00] VITALS: BP 128/70; TEMP 96.6; O2SAT 100
[2023-03-31] MEDS: levETIRAcetam 500 MG/5 ML LIQUID UDC GT SCH ×2 (08:30→21:15)
[2023-03-31] MEDS: DIGOXIN 125 MCG TABLET GT SCH (08:33)
[2023-03-31] MEDS: POTASSIUM CHLORIDE 40 MEQ/30 ML LIQUID UDC GT SCH (08:33)
[2023-03-31] MEDS: SERTRALINE HCL 25 MG TABLET GT SCH (08:33)
[2023-03-31] MEDS: CETAPHIL MOISTURIZING TP SCH (08:33)
[2023-03-31] MEDS: FUROSEMIDE 20 MG TABLET GT SCH (08:33)
[2023-03-31] MEDS: COD LIVER OIL/ZINC OXIDE OINT 113 GM TUBE TP SCH ×2 (08:33→21:15)
[2023-03-31] MEDS: REMEDY ESSENTIAL ZINC PASTE 113 GM TP SCH ×2 (08:34→21:15)
[2023-03-31] MEDS: HYDROGEN PEROXIDE 3% 118 ML BOTTLE TP SCH ×2 (09:40→20:18)
[2023-03-31 20:00] VITALS: TEMP 98.4
[2023-03-31] MEDS: NORMAL SALINE NASAL 45 ML BOTTLE NS SCH (21:15)
[2023-03-31] MEDS: ASCORBIC ACID 500 MG TABLET GT SCH (21:15)
[2023-03-31] MEDS: ACIDOPHILUS/BULGARICUS CHEW TAB GT SCH (21:15)
[2023-04-01] MEDS: POLYVINYL ALCOHOL OPHT DROPS 15 ML BOTTLE EACHEYE SCH ×3 (06:36→21:31)
[2023-04-01] MEDS: FAMOTIDINE 20 MG TABLET GT SCH ×2 (06:36→17:25)
[2023-04-01] MEDS: HYDROGEN PEROXIDE 3% 118 ML BOTTLE TP SCH ×2 (07:15→21:34)
[2023-04-01 08:47] VITALS: TEMP 98
[2023-04-01] MEDS: POTASSIUM CHLORIDE 40 MEQ/30 ML LIQUID UDC GT SCH (09:00)
[2023-04-01] MEDS: levETIRAcetam 500 MG/5 ML LIQUID UDC GT SCH ×2 (09:00→21:30)
[2023-04-01] MEDS: COD LIVER OIL/ZINC OXIDE OINT 113 GM TUBE TP SCH ×2 (09:00→21:30)
[2023-04-01] MEDS: DIGOXIN 125 MCG TABLET GT SCH (09:00)
[2023-04-01] MEDS: SERTRALINE HCL 25 MG TABLET GT SCH (09:00)
[2023-04-01] MEDS: REMEDY ESSENTIAL ZINC PASTE 113 GM TP SCH ×2 (09:00→21:30)
[2023-04-01] MEDS: CETAPHIL MOISTURIZING TP SCH (09:00)
[2023-04-01] MEDS: FUROSEMIDE 20 MG TABLET GT SCH (09:00)
[2023-04-01] MEDS: GLUCERNA 1.2 1000ML LIQUID GT PRN (11:14)
[2023-04-01 20:00] VITALS: TEMP 98; TEMP 98.1
[2023-04-01] MEDS: ACIDOPHILUS/BULGARICUS CHEW TAB GT SCH (21:29)
[2023-04-01] MEDS: ASCORBIC ACID 500 MG TABLET GT SCH (21:30)
[2023-04-01] MEDS: NORMAL SALINE NASAL 45 ML BOTTLE NS SCH (21:30)
[2023-04-02] MEDS: POLYVINYL ALCOHOL OPHT DROPS 15 ML BOTTLE EACHEYE SCH ×3 (06:03→22:00)
[2023-04-02] MEDS: FAMOTIDINE 20 MG TABLET GT SCH ×2 (06:03→17:58)
[2023-04-02 08:02] VITALS: TEMP 97.4
[2023-04-02] MEDS: HYDROGEN PEROXIDE 3% 118 ML BOTTLE TP SCH ×2 (09:14→19:04)
[2023-04-02] MEDS: levETIRAcetam 500 MG/5 ML LIQUID UDC GT SCH ×2 (09:56→20:16)
[2023-04-02] MEDS: POTASSIUM CHLORIDE 40 MEQ/30 ML LIQUID UDC GT SCH (09:57)
[2023-04-02] MEDS: FUROSEMIDE 20 MG TABLET GT SCH (09:57)
[2023-04-02] MEDS: DIGOXIN 125 MCG TABLET GT SCH (09:57)
[2023-04-02] MEDS: SERTRALINE HCL 25 MG TABLET GT SCH (09:58)
[2023-04-02] MEDS: COD LIVER OIL/ZINC OXIDE OINT 113 GM TUBE TP SCH ×2 (09:58→20:19)
[2023-04-02] MEDS: CETAPHIL MOISTURIZING TP SCH (09:58)
[2023-04-02] MEDS: REMEDY ESSENTIAL ZINC PASTE 113 GM TP SCH ×2 (09:58→20:20)
[2023-04-02] MEDS: ASCORBIC ACID 500 MG TABLET GT SCH (20:16)
[2023-04-02] MEDS: ACIDOPHILUS/BULGARICUS CHEW TAB GT SCH (20:16)
[2023-04-02] MEDS: NORMAL SALINE NASAL 45 ML BOTTLE NS SCH (20:16)
[2023-04-02 23:29] VITALS: TEMP 98.1
[2023-04-03] MEDS: FAMOTIDINE 20 MG TABLET GT SCH ×2 (05:48→17:08)
[2023-04-03] MEDS: POLYVINYL ALCOHOL OPHT DROPS 15 ML BOTTLE EACHEYE SCH ×3 (05:48→22:36)
[2023-04-03] MEDS: HYDROGEN PEROXIDE 3% 118 ML BOTTLE TP SCH ×3 (07:05→20:49)
[2023-04-03 08:00] VITALS: TEMP 97.7
[2023-04-03] MEDS: FUROSEMIDE 20 MG TABLET GT SCH (09:31)
[2023-04-03] MEDS: DIGOXIN 125 MCG TABLET GT SCH (09:31)
[2023-04-03] MEDS: POTASSIUM CHLORIDE 40 MEQ/30 ML LIQUID UDC GT SCH (09:31)
[2023-04-03] MEDS: levETIRAcetam 500 MG/5 ML LIQUID UDC GT SCH ×2 (09:31→20:20)
[2023-04-03] MEDS: CETAPHIL MOISTURIZING TP SCH (09:32)
[2023-04-03] MEDS: SERTRALINE HCL 25 MG TABLET GT SCH (09:32)
[2023-04-03] MEDS: REMEDY ESSENTIAL ZINC PASTE 113 GM TP SCH ×2 (09:32→20:20)
[2023-04-03] MEDS: COD LIVER OIL/ZINC OXIDE OINT 113 GM TUBE TP SCH ×2 (09:32→20:20)
[2023-04-03 20:00] VITALS: TEMP 98.8
[2023-04-03] MEDS: ACIDOPHILUS/BULGARICUS CHEW TAB GT SCH (20:20)
[2023-04-03] MEDS: NORMAL SALINE NASAL 45 ML BOTTLE NS SCH (20:20)
[2023-04-03] MEDS: ASCORBIC ACID 500 MG TABLET GT SCH (20:20)
[2023-04-04] MEDS: GLUCERNA 1.2 1000ML LIQUID GT PRN ×2 (02:27→21:51)
[2023-04-04] MEDS: POLYVINYL ALCOHOL OPHT DROPS 15 ML BOTTLE EACHEYE SCH ×3 (05:18→21:51)
[2023-04-04] MEDS: FAMOTIDINE 20 MG TABLET GT SCH ×2 (05:18→17:04)
[2023-04-04 08:00] VITALS: TEMP 97.8
[2023-04-04] MEDS: levETIRAcetam 500 MG/5 ML LIQUID UDC GT SCH ×2 (09:12→20:07)
[2023-04-04] MEDS: REMEDY ESSENTIAL ZINC PASTE 113 GM TP SCH ×2 (09:14→20:08)
[2023-04-04] MEDS: FUROSEMIDE 20 MG TABLET GT SCH (09:14)
[2023-04-04] MEDS: CETAPHIL MOISTURIZING TP SCH (09:14)
[2023-04-04] MEDS: SERTRALINE HCL 25 MG TABLET GT SCH (09:14)
[2023-04-04] MEDS: POTASSIUM CHLORIDE 40 MEQ/30 ML LIQUID UDC GT SCH (09:14)
[2023-04-04] MEDS: DIGOXIN 125 MCG TABLET GT SCH (09:14)
[2023-04-04] MEDS: COD LIVER OIL/ZINC OXIDE OINT 113 GM TUBE TP SCH ×2 (09:14→20:08)
[2023-04-04] MEDS: HYDROGEN PEROXIDE 3% 118 ML BOTTLE TP SCH (19:13)
[2023-04-04] MEDS: ACIDOPHILUS/BULGARICUS CHEW TAB GT SCH (20:07)
[2023-04-04] MEDS: ASCORBIC ACID 500 MG TABLET GT SCH (20:07)
[2023-04-04] MEDS: NORMAL SALINE NASAL 45 ML BOTTLE NS SCH (20:08)
[2023-04-04 20:11] VITALS: TEMP 98.3
[2023-04-05] MEDS: FAMOTIDINE 20 MG TABLET GT SCH ×2 (05:24→17:59)
[2023-04-05] MEDS: POLYVINYL ALCOHOL OPHT DROPS 15 ML BOTTLE EACHEYE SCH ×3 (05:24→21:25)
[2023-04-05] MEDS: HYDROGEN PEROXIDE 3% 118 ML BOTTLE TP SCH ×2 (07:29→18:59)
[2023-04-05 08:00] VITALS: TEMP 98.4
[2023-04-05] MEDS: COD LIVER OIL/ZINC OXIDE OINT 113 GM TUBE TP SCH ×2 (09:16→20:05)
[2023-04-05] MEDS: FUROSEMIDE 20 MG TABLET GT SCH (09:16)
[2023-04-05] MEDS: POTASSIUM CHLORIDE 40 MEQ/30 ML LIQUID UDC GT SCH (09:16)
[2023-04-05] MEDS: DIGOXIN 125 MCG TABLET GT SCH (09:16)
[2023-04-05] MEDS: SERTRALINE HCL 25 MG TABLET GT SCH (09:16)
[2023-04-05] MEDS: REMEDY ESSENTIAL ZINC PASTE 113 GM TP SCH ×2 (09:16→20:05)
[2023-04-05] MEDS: levETIRAcetam 500 MG/5 ML LIQUID UDC GT SCH ×2 (09:16→20:04)
[2023-04-05] MEDS: CETAPHIL MOISTURIZING TP SCH (09:16)
[2023-04-05] MEDS: GLUCERNA 1.2 1000ML LIQUID GT PRN (18:06)
[2023-04-05 20:00] VITALS: TEMP 98.8
[2023-04-05] MEDS: ACIDOPHILUS/BULGARICUS CHEW TAB GT SCH (20:04)
[2023-04-05] MEDS: ASCORBIC ACID 500 MG TABLET GT SCH (20:04)
[2023-04-05] MEDS: NORMAL SALINE NASAL 45 ML BOTTLE NS SCH (20:05)
[2023-04-06] MEDS: POLYVINYL ALCOHOL OPHT DROPS 15 ML BOTTLE EACHEYE SCH ×3 (05:05→21:30)
[2023-04-06] MEDS: FAMOTIDINE 20 MG TABLET GT SCH ×2 (05:05→18:00)
[2023-04-06 07:54] VITALS: TEMP 97.8
[2023-04-06] MEDS: HYDROGEN PEROXIDE 3% 118 ML BOTTLE TP SCH ×2 (08:11→20:42)
[2023-04-06] MEDS: FUROSEMIDE 20 MG TABLET GT SCH (09:35)
[2023-04-06] MEDS: levETIRAcetam 500 MG/5 ML LIQUID UDC GT SCH ×2 (09:35→20:15)
[2023-04-06] MEDS: DIGOXIN 125 MCG TABLET GT SCH (09:35)
[2023-04-06] MEDS: POTASSIUM CHLORIDE 40 MEQ/30 ML LIQUID UDC GT SCH (09:36)
[2023-04-06] MEDS: SERTRALINE HCL 25 MG TABLET GT SCH (09:37)
[2023-04-06] MEDS: COD LIVER OIL/ZINC OXIDE OINT 113 GM TUBE TP SCH ×2 (09:37→20:15)
[2023-04-06] MEDS: CETAPHIL MOISTURIZING TP SCH (09:37)
[2023-04-06] MEDS: REMEDY ESSENTIAL ZINC PASTE 113 GM TP SCH ×2 (09:37→20:15)
[2023-04-06 20:00] VITALS: TEMP 98.8
[2023-04-06] MEDS: ACIDOPHILUS/BULGARICUS CHEW TAB GT SCH (20:15)
[2023-04-06] MEDS: ASCORBIC ACID 500 MG TABLET GT SCH (20:15)
[2023-04-06] MEDS: NORMAL SALINE NASAL 45 ML BOTTLE NS SCH (20:15)
[2023-04-07] MEDS: GLUCERNA 1.2 1000ML LIQUID GT PRN (05:05)
[2023-04-07] MEDS: FAMOTIDINE 20 MG TABLET GT SCH ×2 (05:05→18:44)
[2023-04-07] MEDS: POLYVINYL ALCOHOL OPHT DROPS 15 ML BOTTLE EACHEYE SCH ×3 (05:05→21:30)
[2023-04-07] MEDS: HYDROGEN PEROXIDE 3% 118 ML BOTTLE TP SCH ×2 (07:06→19:03)
[2023-04-07 07:58] VITALS: TEMP 98.3
[2023-04-07] MEDS: levETIRAcetam 500 MG/5 ML LIQUID UDC GT SCH ×2 (08:13→21:29)
[2023-04-07] MEDS: POTASSIUM CHLORIDE 40 MEQ/30 ML LIQUID UDC GT SCH (08:13)
[2023-04-07] MEDS: FUROSEMIDE 20 MG TABLET GT SCH (08:13)
[2023-04-07] MEDS: DIGOXIN 125 MCG TABLET GT SCH (08:13)
[2023-04-07] MEDS: COD LIVER OIL/ZINC OXIDE OINT 113 GM TUBE TP SCH ×2 (08:14→21:29)
[2023-04-07] MEDS: SERTRALINE HCL 25 MG TABLET GT SCH (08:14)
[2023-04-07] MEDS: REMEDY ESSENTIAL ZINC PASTE 113 GM TP SCH ×2 (08:14→21:30)
[2023-04-07] MEDS: CETAPHIL MOISTURIZING TP SCH (08:14)
[2023-04-07 20:00] VITALS: TEMP 98
[2023-04-07] MEDS: ASCORBIC ACID 500 MG TABLET GT SCH (21:29)
[2023-04-07] MEDS: NORMAL SALINE NASAL 45 ML BOTTLE NS SCH (21:29)
[2023-04-07] MEDS: ACIDOPHILUS/BULGARICUS CHEW TAB GT SCH (21:29)
[2023-04-08] MEDS: POLYVINYL ALCOHOL OPHT DROPS 15 ML BOTTLE EACHEYE SCH ×3 (05:06→22:00)
[2023-04-08] MEDS: FAMOTIDINE 20 MG TABLET GT SCH ×2 (05:06→18:04)
[2023-04-08 08:00] VITALS: TEMP 97.6
[2023-04-08] MEDS: HYDROGEN PEROXIDE 3% 118 ML BOTTLE TP SCH ×2 (08:09→19:10)
[2023-04-08] MEDS: levETIRAcetam 500 MG/5 ML LIQUID UDC GT SCH ×2 (09:37→20:20)
[2023-04-08] MEDS: POTASSIUM CHLORIDE 40 MEQ/30 ML LIQUID UDC GT SCH (09:38)
[2023-04-08] MEDS: DIGOXIN 125 MCG TABLET GT SCH (09:38)
[2023-04-08] MEDS: FUROSEMIDE 20 MG TABLET GT SCH (09:38)
[2023-04-08] MEDS: COD LIVER OIL/ZINC OXIDE OINT 113 GM TUBE TP SCH ×2 (09:38→20:20)
[2023-04-08] MEDS: SERTRALINE HCL 25 MG TABLET GT SCH (09:38)
[2023-04-08] MEDS: CETAPHIL MOISTURIZING TP SCH (09:41)
[2023-04-08] MEDS: REMEDY ESSENTIAL ZINC PASTE 113 GM TP SCH ×2 (09:41→20:20)
[2023-04-08 20:00] VITALS: TEMP 97.6
[2023-04-08] MEDS: ACIDOPHILUS/BULGARICUS CHEW TAB GT SCH (20:20)
[2023-04-08] MEDS: ASCORBIC ACID 500 MG TABLET GT SCH (20:20)
[2023-04-08] MEDS: NORMAL SALINE NASAL 45 ML BOTTLE NS SCH (20:20)
[2023-04-09] MEDS: FAMOTIDINE 20 MG TABLET GT SCH ×2 (05:10→17:15)
[2023-04-09] MEDS: POLYVINYL ALCOHOL OPHT DROPS 15 ML BOTTLE EACHEYE SCH ×3 (05:10→21:55)
[2023-04-09] MEDS: HYDROGEN PEROXIDE 3% 118 ML BOTTLE TP SCH ×2 (07:07→19:07)
[2023-04-09 07:53] VITALS: TEMP 97.7
[2023-04-09] MEDS: COD LIVER OIL/ZINC OXIDE OINT 113 GM TUBE TP SCH ×2 (08:49→21:54)
[2023-04-09] MEDS: POTASSIUM CHLORIDE 40 MEQ/30 ML LIQUID UDC GT SCH (08:49)
[2023-04-09] MEDS: FUROSEMIDE 20 MG TABLET GT SCH (08:49)
[2023-04-09] MEDS: levETIRAcetam 500 MG/5 ML LIQUID UDC GT SCH ×2 (08:49→21:54)
[2023-04-09] MEDS: SERTRALINE HCL 25 MG TABLET GT SCH (08:49)
[2023-04-09] MEDS: DIGOXIN 125 MCG TABLET GT SCH (08:49)
[2023-04-09] MEDS: REMEDY ESSENTIAL ZINC PASTE 113 GM TP SCH ×2 (08:50→21:55)
[2023-04-09] MEDS: CETAPHIL MOISTURIZING TP SCH (08:50)
[2023-04-09] MEDS: GLUCERNA 1.2 1000ML LIQUID GT PRN (18:31)
[2023-04-09 20:00] VITALS: TEMP 98.3
[2023-04-09] MEDS: NORMAL SALINE NASAL 45 ML BOTTLE NS SCH (21:54)
[2023-04-09] MEDS: ASCORBIC ACID 500 MG TABLET GT SCH (21:54)
[2023-04-09] MEDS: ACIDOPHILUS/BULGARICUS CHEW TAB GT SCH (21:54)
[2023-04-10] MEDS: FAMOTIDINE 20 MG TABLET GT SCH ×2 (05:41→17:01)
[2023-04-10] MEDS: POLYVINYL ALCOHOL OPHT DROPS 15 ML BOTTLE EACHEYE SCH ×3 (05:41→22:00)
[2023-04-10 07:17] VITALS: TEMP 98.6
[2023-04-10] MEDS: HYDROGEN PEROXIDE 3% 118 ML BOTTLE TP SCH ×2 (07:35→19:05)
[2023-04-10 08:20] VITALS: O2SAT 99
[2023-04-10] MEDS: POTASSIUM CHLORIDE 40 MEQ/30 ML LIQUID UDC GT SCH (08:23)
[2023-04-10] MEDS: levETIRAcetam 500 MG/5 ML LIQUID UDC GT SCH ×2 (08:23→20:10)
[2023-04-10] MEDS: FUROSEMIDE 20 MG TABLET GT SCH (08:23)
[2023-04-10] MEDS: DIGOXIN 125 MCG TABLET GT SCH (08:23)
[2023-04-10] MEDS: SERTRALINE HCL 25 MG TABLET GT SCH (08:25)
[2023-04-10] MEDS: CETAPHIL MOISTURIZING TP SCH (08:25)
[2023-04-10] MEDS: COD LIVER OIL/ZINC OXIDE OINT 113 GM TUBE TP SCH ×2 (08:25→20:11)
[2023-04-10] MEDS: REMEDY ESSENTIAL ZINC PASTE 113 GM TP SCH ×2 (08:25→20:11)
[2023-04-10 20:00] VITALS: TEMP 98.9
[2023-04-10] MEDS: ACIDOPHILUS/BULGARICUS CHEW TAB GT SCH (20:10)
[2023-04-10] MEDS: NORMAL SALINE NASAL 45 ML BOTTLE NS SCH (20:10)
[2023-04-10] MEDS: ASCORBIC ACID 500 MG TABLET GT SCH (20:10)
[2023-04-11] MEDS: GLUCERNA 1.2 1000ML LIQUID GT PRN (04:23)
[2023-04-11] MEDS: POLYVINYL ALCOHOL OPHT DROPS 15 ML BOTTLE EACHEYE SCH (05:17)
[2023-04-11] MEDS: FAMOTIDINE 20 MG TABLET GT SCH (05:17)
== END 2023-04-09 23:59 | disposition still patient (30) | DRG 130 ==
LOC: SA → UNDOADMIN 04-12 06:14 → SA 04-12 06:14 → SA1 11-03 21:04 → SA 11-06 19:37
PROVIDERS: ADMIT Internal Medicine Nephrology; ATTEND Internal Medicine Nephrology
PROC: 5A1955Z Respiratory Ventilation, Greater than 96 Consecutive Hours (ICD-10-PCS; principal; 2022-04-10)
PROC: 0JB73ZZ Excision of Back Subcutaneous Tissue and Fascia, Percutaneous Approach (ICD-10-PCS; 2022-11-17)
PROC: 05HB33Z Insertion of Infusion Device into Right Basilic Vein, Percutaneous Approach (ICD-10-PCS; 2022-12-25)
DX: J96.12 Chronic respiratory failure with hypercapnia (principal); J12.82 Pneumonia due to coronavirus disease 2019; G93.49 Other encephalopathy; R40.3 Persistent vegetative state; I13.0 Hypertensive heart and chronic kidney disease with heart failure and stage 1 through stage 4 chronic kidney disease, or unspecified chronic kidney disease; U07.1 COVID-19; L89.159 Pressure ulcer of sacral region, unspecified stage; I42.9 Cardiomyopathy, unspecified; I50.42 Chronic combined systolic (congestive) and diastolic (congestive) heart failure; E87.0 Hyperosmolality and hypernatremia; E11.22 Type 2 diabetes mellitus with diabetic chronic kidney disease; I69.198 Other sequelae of nontraumatic intracerebral hemorrhage; F33.2 Major depressive disorder, recurrent severe without psychotic features; J96.11 Chronic respiratory failure with hypoxia; N18.2 Chronic kidney disease, stage 2 (mild); I25.10 Atherosclerotic heart disease of native coronary artery without angina pectoris; I25.2 Old myocardial infarction; I48.91 Unspecified atrial fibrillation; I70.0 Atherosclerosis of aorta; J98.11 Atelectasis; L24.9 Irritant contact dermatitis, unspecified cause; M19.90 Unspecified osteoarthritis, unspecified site; R13.10 Dysphagia, unspecified; Z20.822 Contact with and (suspected) exposure to COVID-19; Z74.01 Bed confinement status; Z79.899 Other long term (current) drug therapy; Z88.5 Allergy status to narcotic agent; Z93.0 Tracheostomy status; Z93.1 Gastrostomy status; Z95.1 Presence of aortocoronary bypass graft; Z95.2 Presence of prosthetic heart valve; Z99.11 Dependence on respirator [ventilator] status; I48.20 Chronic atrial fibrillation, unspecified; Z79.01 Long term (current) use of anticoagulants
CPT/HCPCS: 36415; 70030-TC; 71045; 74018; 83605; 83615; 83735; 84100; 85025; 85610; 85651; 85730; 86140; 86580; 87040; 94003; 94640; A4663; A6209; A6213; C1758; J0692; J2185; J3370; J7050; Q0163; Q9963; U0003

== ENCOUNTER 2024-03-30 16:16 | Emergency (ER) | payer MEDICAID ==
[~2024-03-30] VITALS: Ht 160 cm; Wt 72.6 kg
[2024-03-30] MEDS: ALBUTEROL SULFATE 2.5 MG/3 ML NEBU NEB ONE (16:31)
[2024-03-30] MEDS: BUDESONIDE 0.5 MG/2 ML NEBU NEB ONE (16:31)
[2024-03-30 16:51] LABS: BASOPHILS % (AUTO) 0.4 % (0.0-2.0); EOSINOPHILS # (AUTO) 0.5 K/uL (0.0-0.7); EOSINOPHILS % (AUTO) 6.9 % (0.0-7.0); HEMOGLOBIN 13.1 g/dL (10.9-14.3); LYMPHOCYTES % (AUTO) 14.7 % (20.5-51.5); MEAN CORPUSCULAR HEMOGLOBIN 30.4 uug (24.7-32.8); MEAN CORPUSCULAR HGB CONC 32 g/dL (32.3-35.6); MEAN CORPUSCULAR VOLUME 94.9 fL (75.5-95.3); MONOCYTES # (AUTO) 0.3 K/uL (0.1-1.30); MONOCYTES % (AUTO) 5.3 % (0.0-11.0); NEUTROPHILS # (AUTO) 4.7 K/uL (1.8-8.9); NEUTROPHILS % (AUTO) 72.7 % (38.5-71.5); PLATELET COUNT (AUTO) 141 K/uL (179-408); RED BLOOD CELL COUNT(AUTO) 4.32 MIL/uL (3.63-4.92); RED CELL DISTRIBUTION WIDTH 16.6 % (12.3-17.7); WHITE BLOOD COUNT (AUTO) 6.5 K/uL (3.8-11.8)
[2024-03-30 16:54] LABS: DIFFERENTIAL COMMENT 1
[2024-03-30 16:56] LABS: CALCIUM 8.4 mg/dL (8.5-10.1); CARBON DIOXIDE 30 mmol/L (21-32); CHLORIDE 107 mmol/L (98-107); CREATININE 0.8 mg/dL (0.6-1.3); GLUCOSE 189 mg/dL (74-106); POTASSIUM 4.4 mmol/L (3.5-5.1); SODIUM SERUM 143 mmol/L (136-145); UREA NITROGEN, BLOOD 18 mg/dL (7-18)
[2024-03-30 17:09] LABS: ALANINE AMINOTRANSFERASE 16 U/L (14-59); ALBUMIN 2.1 g/dL (3.4-5.0); ALKALINE PHOSPHATASE 159 U/L (50-136); ASPARTATE AMINOTRANSFERASE 26 U/L (15-37); BILIRUBIN,DIRECT 0.2 mg/dL (0.0-0.2); BILIRUBIN,TOTAL 0.4 mg/dL (0.2-1.0); NT-PRO BNP 1418 pg/mL (0-125); TOTAL PROTEIN, SERUM 7.1 g/dL (6.4-8.2)
[2024-03-30] MEDS ORDERED: METO25TA6 PO (17:13)
[2024-03-30] MEDS ORDERED: FURO40TA5 GT (17:13)
[2024-03-30] MEDS ORDERED: SERT25TA GT (17:13)
[2024-03-30] MEDS ORDERED: ASCO500C18 PO (17:13)
[2024-03-30] MEDS ORDERED: PETR113P TP (17:13)
[2024-03-30 18:10] VITALS: O2SAT 97
== END 2024-03-30 18:32 | disposition home or self-care (01) ==
LOC: ER 16:16
DX: J98.01 Acute bronchospasm (principal); E11.22 Type 2 diabetes mellitus with diabetic chronic kidney disease; I13.0 Hypertensive heart and chronic kidney disease with heart failure and stage 1 through stage 4 chronic kidney disease, or unspecified chronic kidney disease; I50.32 Chronic diastolic (congestive) heart failure; N18.9 Chronic kidney disease, unspecified; I25.10 Atherosclerotic heart disease of native coronary artery without angina pectoris; I48.91 Unspecified atrial fibrillation; Z79.899 Other long term (current) drug therapy; Z93.0 Tracheostomy status; Z98.890 Other specified postprocedural states; Z99.11 Dependence on respirator [ventilator] status; Z88.5 Allergy status to narcotic agent
CPT/HCPCS: 36415; 71045; 85025; A4606; A4663

== ENCOUNTER 2024-10-10 07:42 | Inpatient (IN) | payer MEDICAID ==
[~2024-10-10] VITALS: Ht 162.6 cm; Wt 93.0 kg
[2024-10-10] VITALS (27 sets, daily range): BP systolic 105–127; BP diastolic 44–79; TEMP 97.7–98.6; O2SAT 94–100
[~2024-10-10 07:42] MED LIST changes: +ASCO500C18 PO; +FURO40TA5 GT; +METO25TA6 PO; +PETR113P TP; +SERT25TA GT
[2024-10-10] MEDS ORDERED: BUPIVACAINE PF 0.5% 30 ML VIAL ONE (10:59)
[2024-10-10] MEDS ORDERED: LIDOCAINE HCL 1% 20 ML VIAL ONE (10:59)
[2024-10-10] MEDS ORDERED: CEFAZOLIN 1 G VIAL ONE (11:50)
[2024-10-10] MEDS ORDERED: MAGNESIUM SULFATE/D5W 100 ML ONE (12:14)
[2024-10-10] MEDS ORDERED: ZINC57OI3 TP (13:34)
[2024-10-10] MEDS ORDERED: POTA20PA40 GT (13:34)
[2024-10-10] MEDS ORDERED: AMIN30LI2 GT (13:34)
[2024-10-10] MEDS ORDERED: LOPE2TAB25 GT (13:34)
[2024-10-10] MEDS ORDERED: METO2.5T2 GT (13:34)
[2024-10-10] MEDS ORDERED: HONE44PA TP (13:34)
[2024-10-10] MEDS ORDERED: GUAI100S9 GT (13:34)
[2024-10-10] MEDS ORDERED: ACET325T53 GT (13:34)
[2024-10-10] MEDS ORDERED: PETR113P TP (13:34)
[2024-10-10] MEDS ORDERED: HYDROGEN PEROXIDE 3% TP ×2 (13:35)
[2024-10-10] MEDS ORDERED: HYDR28.35 TP (13:35)
[2024-10-10] MEDS ORDERED: OCEAN NASAL SPRAY NS (13:35)
[2024-10-10] MEDS ORDERED: NUT.237L30 GT (13:38)
[2024-10-10] MEDS ORDERED: MAGNESIUM HYDROXIDE 30 ML LIQUID UDC GT PRN (15:00)
[2024-10-10] MEDS ORDERED: ONDANSETRON 4 MG/2 ML VIAL IV PRN (15:00)
[2024-10-10] MEDS ORDERED: REMEDY ESSENTIAL ZINC PASTE 113 GM TP PRN (15:00)
[2024-10-10] MEDS ORDERED: ACETAMINOPHEN 325 MG TABLET-SA PATIENTS-PAIN ONLY GT PRN (15:00)
[2024-10-10] MEDS ORDERED: LOPERAMIDE HCL 1 MG/7.5 ML LIQUID GT PRN (15:15)
[2024-10-10] MEDS ORDERED: ACETAMINOPHEN 325 MG TABLET GT PRN (15:15)
[2024-10-10] MEDS: GLUCERNA 1.2 1000ML LIQUID GT PRN (17:43)
[2024-10-10] MEDS: FAMOTIDINE 20 MG TABLET GT SCH (17:44)
[2024-10-10] MEDS: COD LIVER OIL/ZINC OXIDE OINT 113 GM TUBE TP SCH ×2 (21:00→21:05)
[2024-10-10] MEDS ORDERED: Medication Not On Formulary EA (Acidophilus/Bulgaricus (Floranex Tablet) 1 EACH) GT SCH (21:00)
[2024-10-10] MEDS: ACIDOPHILUS/BULGARICUS CHEW TAB GT SCH (21:04)
[2024-10-10] MEDS: METOPROLOL TARTRATE 25 MG TABLET PO SCH (21:04)
[2024-10-10] MEDS: POTASSIUM CHLORIDE 20 MEQ POWDER PACKET GT SCH (21:04)
[2024-10-10] MEDS: POLYVINYL ALCOHOL OPHT DROPS 15 ML BOTTLE EACHEYE SCH (21:05)
[2024-10-10] MEDS: MEDIHONEY= THERAHONEY 1.5 OZ TUBE TOP SCH (21:05)
[2024-10-10] MEDS: CEFAZOLIN 2 G in IV DEXTROSE 5% 100 ML IV SCH (21:05)
[2024-10-10] MEDS: REMEDY ESSENTIAL ZINC PASTE 113 GM TP SCH (21:06)
[2024-10-10] MEDS: NEOMY/BACITRAC/POLYMI OINT 28.35 GM TUBE TP SCH (21:06)
[2024-10-11] VITALS (58 sets, daily range): BP systolic 109–150; BP diastolic 42–79; TEMP 96.9–98.3; O2SAT 96–99
[2024-10-11 05:21] LABS: PLATELET COUNT (AUTO) 93 K/uL (179-408); RED BLOOD CELL COUNT(AUTO) 4.00 MIL/uL (3.63-4.92); RED CELL DISTRIBUTION WIDTH 15.7 % (12.3-17.7); WHITE BLOOD COUNT (AUTO) 3.7 K/uL (3.8-11.8)
[2024-10-11 05:32] LABS: CREATININE 0.6 mg/dL (0.6-1.3); SODIUM SERUM 148 mmol/L (136-145); UREA NITROGEN, BLOOD 22 mg/dL (7-18)
[2024-10-11 06:18] LABS: ABG BASE EXCESS 7.7 mmol/L (-2.0-3.0); ABG HCO3 31.7 mmol/L (21.0-28.0); ABG PCO2 42.0 mmHg (32.0-45.0); ABG PH 7.495 (7.350-7.450); ABG PO2 129.9 mmHg (83.0-108.0); ABG SITE RIGHT RADIAL; ABG TOTAL HEMOGLOBIN 12.7 G/dL (12.0-16.0); AaDO2 98.8 mmHg; FIO2 40.0 %; PEEP,BG 5.0 cmH20; SET RATE, BG 12.0; VT, ABG 500 mL
[2024-10-11] MEDS: PROTEIN SUPPLEMENT (PROSTAT) 30 ML LIQUID GT SCH (08:23)
[2024-10-11] MEDS: FUROSEMIDE 40 MG TABLET GT SCH (08:27)
[2024-10-11] MEDS: SERTRALINE HCL 50 MG TABLET GT SCH (08:27)
[2024-10-11] MEDS: DIGOXIN 125 MCG TABLET GT SCH (08:27)
[2024-10-11] MEDS: METOLAZONE 2.5 MG TABLET GT SCH (08:29)
[2024-10-11] MEDS: POTASSIUM CHLORIDE 50 ML IV SCH (11:39)
[2024-10-11] MEDS: SPIRONOLACTONE 25 MG TABLET GT SCH (11:40)
[2024-10-11] MEDS: POTASSIUM CHLORIDE 20 MEQ POWDER PACKET GT ONE (11:40)
[2024-10-11] MEDS ORDERED: METOPROLOL TARTRATE 25 MG TABLET PO SCH (21:00)
[2024-10-11] MEDS: METOPROLOL TARTRATE 50 MG TABLET GT SCH (21:26)
[2024-10-12] VITALS (24 sets, daily range): BP systolic 121–141; BP diastolic 55–68; TEMP 97.6–98; O2SAT 96–97
[2024-10-12 05:12] LABS: PLATELET COUNT (AUTO) 105 K/uL (179-408); RED BLOOD CELL COUNT(AUTO) 4.36 MIL/uL (3.63-4.92); RED CELL DISTRIBUTION WIDTH 16.3 % (12.3-17.7); WHITE BLOOD COUNT (AUTO) 5.3 K/uL (3.8-11.8)
[2024-10-12 05:24] LABS: CREATININE 0.5 mg/dL (0.6-1.3); SODIUM SERUM 142 mmol/L (136-145); UREA NITROGEN, BLOOD 23 mg/dL (7-18)
== END 2024-10-12 12:00 | DRG 176 ==
LOC: DS 07:42 → CCU 13:05
PROVIDERS: ADMIT Registered Nurse Psychiatric/Mental Health; ATTEND Registered Nurse Psychiatric/Mental Health
PROC: 0JPT0PZ Removal of Cardiac Rhythm Related Device from Trunk Subcutaneous Tissue and Fascia, Open Approach (ICD-10-PCS; principal; 2024-10-10 12:00)
PROC: 05HF33Z Insertion of Infusion Device into Left Cephalic Vein, Percutaneous Approach (ICD-10-PCS; principal; 2024-10-10 12:00)
PROC: 0JH604Z Insertion of Pacemaker, Single Chamber into Chest Subcutaneous Tissue and Fascia, Open Approach (ICD-10-PCS; principal; 2024-10-10 12:00)
PROC: 5A1945Z Respiratory Ventilation, 24-96 Consecutive Hours (ICD-10-PCS; principal; 2024-10-10 12:00)
DX: Z45.010 Encounter for checking and testing of cardiac pacemaker pulse generator [battery] (principal); J96.21 Acute and chronic respiratory failure with hypoxia; G93.49 Other encephalopathy; R40.3 Persistent vegetative state; I47.20 Ventricular tachycardia, unspecified; I13.0 Hypertensive heart and chronic kidney disease with heart failure and stage 1 through stage 4 chronic kidney disease, or unspecified chronic kidney disease; I50.42 Chronic combined systolic (congestive) and diastolic (congestive) heart failure; D69.6 Thrombocytopenia, unspecified; E87.0 Hyperosmolality and hypernatremia; Z99.11 Dependence on respirator [ventilator] status; Z93.0 Tracheostomy status; I49.5 Sick sinus syndrome; I48.20 Chronic atrial fibrillation, unspecified; L22 Diaper dermatitis; R32 Unspecified urinary incontinence; N18.9 Chronic kidney disease, unspecified; Z86.16 Personal history of COVID-19; Z87.01 Personal history of pneumonia (recurrent); I69.298 Other sequelae of other nontraumatic intracranial hemorrhage; R23.0 Cyanosis; Z88.5 Allergy status to narcotic agent; I25.10 Atherosclerotic heart disease of native coronary artery without angina pectoris; J96.22 Acute and chronic respiratory failure with hypercapnia; R73.03 Prediabetes; Z79.01 Long term (current) use of anticoagulants; E87.6 Hypokalemia
CPT/HCPCS: 36415; 36600; 71045; 83735; 84100; 85025; 93005; 94002; 94003; 94760; 99082-TC; A4649; C1786; G0378; J0690; J3475; J3480; J3490